=== PATIENT | female | born 1975 | race Caucasian/White ===

== ENCOUNTER 2022-09-09 10:33 | Outpatient (OUT) | payer OTHER, SELFPAY ==
--- NOTE | 2022-09-09 10:40 | MM_ITS ---
Patient: BEN TABOR Exam Date: 09/09/2022 : 1975 Gender:F Ordering : DR Zofia Ocasio M.D. Admission #: [id number] Family : Order #: [id number] CLICK HERE TO VIEW EXAM RADIOLOGY REPORT PROCEDURE: MM TOMOSYNTHESIS SCREENING BI COMPARISON: MG MAMM SCREEN 3D JULIO CÉSAR CAD, 09/08/2021. MG MAMM DIAGNOSTIC 3D JULIO CÉSAR CAD, 09/04/2020. MG MAMM RT DIAG W CAD, 02/26/2020. MG MAMM SCREEN JULIO CÉSAR W CAD, 08/13/2019. INDICATIONS: Screening mammogram Z12.31 Calculator Name NCI Breast Cancer Risk Assessment Tool 5 Year Breast Cancer Risk 0.90% Lifetime Breast Cancer Risk 9.20% Personal Breast Cancer No Personal Ovarian Cancer No Treatments wide excision Family Cancers Grandmother-maternal with breast cancer at age 55; Grandfather-maternal with anal cancer at age 80; Father with pancreatic cancer at age 71. LOCATION: [facility] BREAST COMPOSITION: Scattered areas fibroglandular density. FINDINGS: DIAGNOSTIC CATEGORY 1--NEGATIVE. NO CHANGE FROM COMPARISON ASSESSMENT. RIGHT BREAST: No significant suspicious finding. Stable chronic dense fibroglandular tissue within the posterior lower-inner quadrant. No significant change has occurred. LEFT BREAST: No significant suspicious finding. No significant change has occurred. RECOMMENDATIONS: ROUTINE MAMMOGRAM AND CLINICAL EVALUATION IN 12 MONTHS. PLEASE NOTE: A NORMAL MAMMOGRAM DOES NOT EXCLUDE THE POSSIBILITY OF BREAST CANCER. A CLINICALLY SUSPICIOUS PALPABLE LUMP SHOULD BE BIOPSIED. Dictated by: Anton Pacheco M.D. on 09/14/2022 at 14:42 Approved by: Anton Pacheco M.D. on 09/14/2022 at 14:53
== END 2022-09-09 10:34 ==
LOC: MAMMO 10:36
PROVIDERS: PCP Family Medicine; Visit Provider Family Medicine
DX: Z12.31 Encounter for screening mammogram for malignant neoplasm of breast (principal); Z80.3 Family history of malignant neoplasm of breast; Z80.0 Family history of malignant neoplasm of digestive organs; Z80.8 Family history of malignant neoplasm of other organs or systems
CPT/HCPCS: 77063; 77067

== ENCOUNTER 2022-09-14 07:38 | Outpatient (RCR) | payer OTHER, SELFPAY ==
[2022-09-14 10:39] VITALS: BP 146/81; PULSE 71; RESP 20; TEMP 36.2; O2SAT 95
[2022-09-14] MEDS: INCLISIRAN SODIUM 284 MG/1.5 ML SYRINGE SQ (11:08)
--- NOTE | 2022-09-14 11:11 | PC.NURSE ---
PATIENT ARRIVES AMBULATORY TO INFUSION SERVICES. PATIENT IS MADE COMFORTABLE IN THE RECLINER. VITAL SIGNS OBTAINED. SQ INJECTION GIVEN IN THE R UPPER ARM WITHOUT DIFFICULTY. PATIENT TOLERATED PROCEDURE WELL. THE SITE IS COVERED WITH A COTTON BALL AND BAND AID. THE PATIENT IS WAITING 20 MINUTES FOR ASSESSMENT OF SIGNS AND SYMPTOMS OF A REACTION. POST 20 MINUTES THE PATIENT DENIES SIGNS AND SYMPTOMS AND IS DISCHARGED AMBULATORY TO HOME WITH NO COMPLAINTS. THE PATIENT HAS HAD THIS INJECTION BEFORE AND HAS NOT HAD ANY COMPLICATIONS FROM IT.
== END 2022-09-30 23:59 | disposition home or self-care (01) ==
LOC: INF 07:38
PROVIDERS: PCP Family Medicine; Visit Provider Family Medicine
DX: E78.00 Pure hypercholesterolemia, unspecified (principal)
CPT/HCPCS: 96372; J1306

== ENCOUNTER 2023-02-08 14:36 | Outpatient (RCR) | payer OTHER, SELFPAY | END 2023-02-16 17:07 | disposition home or self-care (01) | LOC: PT 14:36 | PROVIDERS: PCP Family Medicine | DX: M76.72 Peroneal tendinitis, left leg (principal) | CPT/HCPCS: 97110; 97161 ==

== ENCOUNTER 2023-02-22 09:07 | Outpatient (OUT) | payer OTHER, SELFPAY ==
--- NOTE | 2023-02-22 | XR_ITS ---
The [address] [address] Patient Name: BEN TABOR MRN: [id number] date: 1975 Sex: F Assigned Patient Location: [facility] Current Patient Location: Accession/Order Number: [id number] Exam Date: 02/22/2023 09:30 Report Date: 02/24/2023 07:51 At the request of: ALEKSANDER FALCON Procedure: XR foot LT min 3V PROCEDURE: XR foot LT min 3V HISTORY: LEFT FOOT PAIN ; arch pain COMPARISON: None. FINDINGS: BONES:Prior 5th metatarsal bunionectomy. No fracture, dislocation, bone lesion. Prominent calcaneal plantar spur and mild spurring at Achilles tendon insertion. SOFT TISSUES:No visible soft tissue swelling. EFFUSION:None visible. OTHER: Negative. XR/XR foot LT min 3V IMPRESSION: 1. No acute bone abnormality or significant degenerative joint disease. 2. Prior 5th metatarsal bunionectomy. Electronically authenticated by: YASSINE SANCHEZ Date: 02/24/2023 07:51
--- OUTSIDE RECORDS SUMMARY | 2023-03-21 23:14 | XMS_ITS | CCD ---
Author Name Unknown Address [address] [place] [address] Organization [facility] Care Team Providers Care Rv Service Technician Name Role Phone Unavailable Primary Care Provider Jacqueline VEGA, DR LISSETT Fung Admitting Unavailable VEGA, DR LISSETT Fung Attending Unavailable VEGA, DR LISSETT Fung Primary Care Unavailable [facility], DR MONCADA Consulting Unavailable VEGA, DR LISSETT Fung Consulting Unavailable VEGA, DR LISSETT Fung Admitting Unavailable VEGA, DR LISSETT Fung Attending Unavailable VEGA, DR LISSETT Fung Primary Care Unavailable VEGA, DR LISSETT Fung Consulting Unavailable KARASIK ., DR MERLOS Admitting Unavailabl e KARASIK ., DR MERLOS Attending Unavaildipika e VEGA, DR LISSETT Fung Primary Care Unavailable KARASIK ., DR MERLOS Consulting Unavailabl e KARASIK ., DR MERLOS Admitting Unavailabl e KARASIK ., DR MERLOS Attending Unavaildipika e VEGA, DR LISSETT Fung Primary Care Unavailable KARASIK ., DR MERLOS Consulting Unavaildipika e WEST, DR ZHANNA Judd Consulting Unavailable GARY, DR LISSETT Fung Admitting Unavailable VEGA, DR LISSETT Fung Attending Unavailable VEGA, DR LISSETT Fung Primary Care Unavailable VEGA, DR LISSETT Fung Consulting Unavailable Unavailable Primary Care Provider UnavailTaz Jamison Attending Unavailable Taz Rossi Admitting Unavailable Lissett Vega Primary Care Unavailable Lissett Vega Unavailable Lissett Vega MD Primary Care Provider GURPREET BECKWITH Attending Unavailable GURPREET BECKWITH Referring Unavailable GURPREET BECKWITH Admitting Unavailable LISSETT VEGA Primary Care Unavailable GURPREET BECKWITH Attending Unavailable GURPREET BECKWITH Referring Unavailable GURPREET BECKWITH Admitting Unavailable LUIS LICONA Referring Unavailable DEBBIE ECHEVERRIA Referring Unavailable TRISTA BONILLA Attending Unavailable DEBBIE ECHEVERRIA Attending Unavailable DEBBIE ECHEVERRIA Referring Unavailable DEBBIE ECHEVERRIA Referring Unavailable TRISTA BONILLA Attending Unavailable DEBBIE ECHEVERRIA Referring Unavailable LUIS LICONA Attending Unavailable TANG, GURPREET Attending Unavailable DEBBIE ECHEVERRIA Attending Unavailable BECKWITH, GURPREET Referring Unavailable VEGA, LISSETT E Primary Care Unavailable VEGA, LISSETT E Primary Care Unavailable PENDBURAK CLARKE Attending Unavailable VEGA, LISSETT E Primary Care Unavailable PENDYALA, BURAK Attending Unavailable CHADTRISTA Referring Unavailable BECKWITH, GURPREET Admitting Unavailable BECKWITH, GURPREET Attending Unavailable BECKWITH, GURPREET Referring Unavailable VEGA, LISSETT E Primary Care Unavailable BECKWITH, GURPREET Admitting Unavailable BECKWITH, GURPREET Attending Unavailable BECKWITH, GURPREET Referring Unavailable VEGA, LISSETT E Primary Care Unavailable ASHVIN VEGAIA Primary Care Physician Debbie DE LOS SANTOS Attending Unavailable Allergies Allergy Classification Reported Allergen(s) Allergy Type Date of Onset Reaction(s) Facility (3 sources) patient allergy list reviewed by nurse or physicia Propensity to adverse reactions Comment:Done FAZUA Other (3 sources) Allergies Reconciled Propensity to adverse reactions Unknown FAZUA Other (1 source) No Known Medication Allergies; Translations: [No Known Medication Allergies] Propensity to adverse reactions (disorder) [facility] Medications Current Medications Medication Drug Class(es) Dates Sig (Normalized) Sig (Original) 1.5 ML inclisiran 189 MG/ML Prefilled Syringe [Leqvio] (5 sources) Start: 02-01-2023 Leqvio 284 mg/1.5 mL subcutaneous solution 0 Refill(s), Refills(s) 0 Start Date: 02/01/23 Status: Ordered Leqvio 284 MG/1. 5ML as directed Subcutaneous Active iv contrast (will be provided with radiology test) (2 sources) Start: 03-01-2022 End: 03-02-2022 inject 1 dose intravenously once iv contrast (will be provided with radiology test) MRI Brain Inject, intravenously, once for 1 dose.No IV access, insert saline lock prior to beginning of sedation, infusion, injection of imaging exam.Discontinue saline lock post exam. If Pt. has a central line or IVAD, may access for administration according to line specific nursing protocol.Once exam is complete flush line and de-access according to line specific nursing protocol in the MR contrast administration guidelines link 1 Each 0 03/01/2022 03/02/2022 Active Start: 08-23-2021 End: 08-24-2021 inject 1 dose intravenously once iv contrast (will be provided with radiology test) MRI Brain Inject, intravenously, once for 1 dose.No IV access, insert saline lock prior to beginning of sedation, infusion, injection of imaging exam.Discontinue saline lock post exam. If Pt. has a central line or IVAD, may access for administration according to line specific nursing protocol.Once exam is complete flush line and de-access according to line specific nursing protocol in the MR contrast administration guidelines link 1 Each 0 08/23/2021 08/24/2021 Active Comment on above: MRI Brain Inject, in travenously, once for 1 dose.No IV access, insert saline lock prior to beginning of sedation, infusion, injection of imaging exam.Discontinue saline lock post exam. If Pt. has a central line or IVAD, may access for administration according to line specific nursing protocol.Once exam is complete flush line and de-access according to line specific nursing protocol in the MR contrast administration guidelines link leqvio 284 mg/1.5ml solution prefilled syringe (1 source) Leqvio 284 MG/1. 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 One tablet 30 minute s prior to MRI tamsulosin hydrochloride 0.4 mg oral capsule (1 source) alpha-Adrenergic Ivan take 1 capsule by mouth every twenty-four hours Flomax 0.4 MG 1 capsule Orally Once a day for 7 days Active Completed/Discontinued Medications Medication Drug Class(es) Dates Sig (Normalized) Sig (Original) dexamethasone 4 mg oral tablet (7 sources) Corticosteroid Start: 01-28-2023 dexAMETHasone (DECADRON) 4 mg tablet Start the day after your Gamma Knife Procedure: Decadron (Dexamethasone), Take 4 mg (1 tablet) daily for 4 days, Take 2 mg (1/2 tablet) daily for 4 days, then stop Decadron 6 tablet 0 01/28/2023 Active Start: 01-28-2023 dexAMETHasone (DECADRON) 4 mg tablet Start the day after your Gamma Knife Procedure: Decadron (Dexamethasone), Take 4 mg (1 tablet) daily for 4 days, Take 2 mg (1/2 tablet) daily for 4 days, then stop Decadron 6 tablet 0 01/28/2023 Active Comment on above: Start the day after your Gamma Knife Procedure: Decadron (Dexamethasone), Take 4 mg (1 tablet) daily for 4 days, Take 2 mg (1/2 tablet) daily for 4 days, then stop Decadron famotidine 20 mg oral tablet (7 sources) Histamine-2 Receptor Antagonist Start: 01-28-2023 take 1 tablet by mouth once daily famotidine (PEPCID) 20 mg tablet Take 1 tablet by mouth once daily. 6 tablet 0 01/28/2023 Active Start: 01-28-2023 take 1 tablet by petra th once daily famotidine (PEPCID) 20 mg tablet Take 1 tablet by mouth once daily. 6 tablet 0 01/28/2023 Active Comment on above: Take 1 tablet by petra th once daily. inclisiran (LEQVIO) 284 mg/1.5 mL injection (20 sources) Start: 12-15-2021 inclisiran (LEQVIO) 284 mg/1.5 mL injection meloxicam 15 mg oral tablet (20 sources) Nonsteroidal Anti-inflammatory Drug Start: 12-01-2021 meloxicam (MOBIC) 15 mg tablet omeprazole 20 mg delayed release oral capsule (20 sources) Proton Pump Inhibitor take 1 capsule by mouth once daily omeprazole (PRILOSEC) 20 mg capsule Take 20 mg by mouth once daily. 0 Active Comment on above: Take 20 mg by mouth once daily. rosuvastatin calcium 10 mg oral tablet (2 sources) HMG-CoA Reductase Inhibitor End: 06-21-2021 take 1 tablet by mouth once daily rosuvastatin (CRESTOR) 10 mg tablet Take 10 mg by mouth once daily. 0 06/21/2021 Discontinued (Other) Comment on above: Take 10 mg by mouth once daily. Problems Active Problems Problem Classification Problem Date Documented Date Episodic/Chronic Abdominal pain (1 source) Left lower quadrant pain Episodic Cancer; other and unspecified primary (1 source) H/O Malignant melanoma 02-01-2023 Episodic Disorders of lipid metabolism (20 sources) Pure hypercholesterolemia, unspecified; Translations: [Hyperlipidemia] Onset: 03-23-2015 Resolved: 02-01-2023 Chronic Esophageal disorders (3 sources) Esophageal reflux finding; Translations: [Esophageal reflux] Chronic Genitourinary symptoms and ill-defined conditions (4 sources) Dysuria; Translations: [Dysuria] Onset: 08-23-2018 Episodic Inflammation; infection of eye (except that caused by tuberculosis or sexually transmitteddisease) (3 sources) External hordeolum; Translations: [Hordeolum externum unspecified eye, unspecified eyelid] Episodic Melanomas of skin (4 sources) Malignant melanoma of trunk; Translations: [Malignant melanoma of other part of trunk] Chronic Neoplasms of unspecified nature or uncertain behavior (1 source) Neoplasm of meninges 02-17-2023 Episodic Nonmalignant breast conditions (3 sources) Disorder of breast; Translations: [Other specified disorders of breast] Episodic Other and unspecified benign neoplasm (20 sources) Benign neoplasm of meninges; Translations: [Benign neoplasm of meninges, unspecified] Onset: 01-27-2023 Chronic Other and unspecified benign neoplasm (2 sources) Neoplasm of meninges; Translations: [Benign neoplasm of meninges, unspecified] 10-19-2022 Chronic Other and unspecified benign neoplasm (1 source) Benign neoplasm of meninges, unspecified; Translations: [Benign neoplasm of meninges (HCC)] Onset: 01-27-2023 Chronic Other circulatory disease (3 sources) Elevated blood-pressure reading without diagnosis of hypertension; Translations: [Elevated blood-pressure reading, without diagnosis of hypertension] Episodic Other connective tissue disease (1 source) Plantar fascial fibromatosis Episodic Other connective tissue disease (3 sources) Spasm; Translations: [Other muscle spasm] Episodic Other connective tissue disease (3 sources) Pain in left foot; Translations: [Pain in left foot] Episodic Other liver diseases (1 source) Lesion of liver; Translations: [Liver disease, unspecified] 06-16-2021 Chronic Other non-traumatic joint disorders (3 sources) Disorder of bursa of shoulder region; Translations: [Unspecified disorders of bursae and tendons in shoulder region] Episodic Other non-traumatic joint disorders (3 sources) Shoulder joint pain; Translations: [Pain in unspecified shoulder] Episodic Other nutritional; endocrine; and metabolic disorders (6 sources) Body mass index 30+ - obesity; Translations: [Body mass index (BMI) 36.0-36.9, adult] 02-17-2023 Chronic Other nutritional; endocrine; and metabolic disorders (5 sources) Obesity caused by energy imbalance; Translations: [Other obesity due to excess calories] Chronic Other nutritional; endocrine; and metabolic disorders (1 source) Other obesity due to excess calories Chronic Other nutritional; endocrine; and metabolic disorders (1 source) Body mass index (BMI) 36.0-36.9, adult Chronic Other nutritional; endocrine; and metabolic disorders (15 sources) Obese class II; Translations: [Body mass index (BMI) 38.0-38.9, adult] Onset: 11-03-2016 Resolved: 09-08-2020 Chronic Other nutritional; endocrine; and metabolic disorders (3 sources) Obese class I; Translations: [Body mass index 34.0-34.9, adult] Onset: 11-03-2016 Chronic Other nutritional; endocrine; and metabolic disorders (1 source) Morbid obesity 02-01-2023 Chronic Other screening for suspected conditions (not mental disorders or infectious disease) (13 sources) Encounter for screening for malignant neoplasm of cervix; Translations: [Encounter for screening mammogram for malignant neoplasm of breast] Onset: 09-08-2021 Episodic Residual codes; unclassified (3 sources) Acquired absence of genital organ; Translations: [Acquired absence of other genital organ(s)] Episodic Spondylosis; intervertebral disc disorders; other back problems (3 sources) Displacement of lumbar intervertebral disc without myelopathy; Translations: [Other intervertebral disc displacement, lumbar region] Chronic Sprains and strains (3 sources) Sprain of shoulder and upper arm; Translations: [Sprain and strain of unspecified site of shoulder and upper arm] Episodic Unclassified (1 source) Encounter for other preprocedural examination; Translations: [Encounter for other preprocedural examination] Onset: 09-12-2022 Unclassified (1 source) Patient encounter status 02-01-2023 Viral infection (3 sources) Disease caused by 2019-nCoV; Translations: [COVID-19] Past or Other Problems Problem Classification Problem Date Documented Date Episodic/Chronic Immunizations and screening for infectious disease (1 source) Encounter for screening for human papillomavirus (HPV); Translations: [ENC SCREENING HUMAN PAPILLOMAVIRUS] Onset: 09-15-2021 Episodic Menstrual disorders (6 sources) Excessive and frequent menstruation; Translations: [Excessive and frequent menstruation with regular cycle] Resolved: 09-16-2019 Chronic Noninfectious gastroenteritis (3 sources) Non-infective enteritis and colitis; Translations: [Noninfective gastroenteritis and colitis, unspecified] Onset: 02-26-2014 Episodic Other aftercare (3 sources) Surgical follow-up; Translations: [Surgery follow-up examination] Onset: 08-22-2007 Resolved: 09-02-2019 Episodic Other aftercare (3 sources) History and physical examination, follow-up; Translations: [Encounter for follow-up examination after completed treatment for conditions other than malignant neoplasm] Resolved: 09-08-2020 Episodic Other connective tissue disease (3 sources) Disorder of soft tissue; Translations: [Other specified soft tissue disorders] Resolved: 09-08-2020 Episodic Other female genital disorders (3 sources) Abnormal uterine bleeding; Translations: [Abnormal uterine and vaginal bleeding, unspecified] Resolved: 09-16-2019 Chronic Other female genital disorders (3 sources) Hypertrophy of uterus; Translations: [Hypertrophy of uterus] Resolved: 09-16-2019 Episodic Other nutritional; endocrine; and metabolic disorders (3 sources) Obesity; Translations: [Obesity, unspecified] Resolved: 09-08-2020 Chronic Other skin disorders (3 sources) Disorder of skin and/or subcutaneous tissue; Translations: [Unspecified disorder of skin and subcutaneous tissue] Onset: 09-14-2018 Episodic Otitis media and related conditions (3 sources) Eustachian tube salpingitis; Translations: [Unspecified Eustachian salpingitis, bilateral] Onset: 11-03-2016 Episodic Residual codes; unclassified (1 source) Family history of malignant neoplasm of breast; Translations: [FAMILY HX MALIG NEOPLASM OF BREAST] Onset: 09-11-2021 Episodic Residual codes; unclassified (1 source) Family history of malignant neoplasm of other organs or systems; Translations: [FAM HX MALIG NEOPLASM OTH ORGN/SYS] Onset: 09-11-2021 Episodic Superficial injury; contusion (3 sources) Contusion of right foot; Translations: [Contusion of right foot, initial encounter] Onset: 11-03-2016 Episodic Unclassified (3 sources) Other symptoms referable to forearm joint; Translations: [Other symptoms referable to forearm joint] Onset: 10-14-2015 Unclassified (3 sources) Long-term current use of drug therapy; Translations: [Long-term (current) use of other medications] Onset: 09-22-2015 Results Test Name Value Interpretation Reference Range Facil ity Outside Colonoscopyon 2022 Outside Colonoscopy [id number] [facility] Reminderson 03-09-2023 Reminders - From: Veronica Jack LPN To: N - Clinical; Sent: 03/09/2023 13:42:54 EST Show up: 02/06/2033 07:00:00 EST Subject: colonoscopy recall Due Date/Time: 03/08/2033 07:00:00 EST Reminder/Recall Patient due for screening colonoscopy 03/08/2033. [facility] Consent for Procedure/Surger yon 02-21-2023 Consent for Procedure/Surgery [id number] [facility] Facesheeton 02-20-2023 Facesheet [id number] IFF [facility] Ambulatory Visit Summaryon 1 04-19-2022 Ambulatory Visit Summary BEN CRUZ :1975 Visit Date:02/17/2023 Ambulatory Visit Instructions Your Diagnosis Screening for malignant neoplasm of colon Your Care Team Attending Physician - MAGALI MCKINLEY, Debbie Morgan Primary Care Physician - LISSETT VEGA MD This Is Your Medications List Contact prescribing physician if questions or concerns inclisiran (Leqvio 284 mg/1.5 mL subcutaneous solution) Procedures Performed Arthroscopy of shoulder, section, section, Excision of ganglion cyst of wrist, Excision of melanoma, Gamma-knife surgery., Laminectomy, Plantar fasciotomy, VH - Vaginal hysterectomy. Discharge Vitals Heart Rate (Peripheral) 76 Respiratory Rate 16 Blood Pressure 128/84 Height 162.5 cm Height 64 in Weight 94.6 kg Weight 208.12 lb BMI 35.82 Medications What When Instructions Unchanged inclisiran (Leqvio 284 mg/ 1.5 mL subcutaneous solution) 0 Refill(s) Contact prescribing physician if questions or concerns Medications and Immunizations Administered Not Given influenza virus vaccine, inactivated, Patient Refuses Allergies No Known Allergies No Known Medication Allergies Problems Ongoing - Any problem that you are currently receiving treatment for. BMI 35.0-35.9,adult History of melanoma Meningioma Mixed hyperlipidemia Morbid obesity Screening for colorectal cancer Historical - Any problem that you are no longer receiving treatment for. Hyperlipidemia Patient Survey You may receive a survey via text or e-mail asking about your office visit. Please share your experience with us by completing your survey. We appreciate your feedback and thank you for choosing us for your care. [facility] Louise 02-07-[address] [facility] Telephone ([facility]) BEN CRUZ ([id number]) 1975 F Date Time Provider Department 02/07/23 JOHANN HENRIQUEZ [facility] During your visit today, we recorded the following information about you: Johann Henriquez RN 02/07/2023 3:50 PM Signed Ben returned my call about follow-up from on 01/27. Reports feeling very good. No new neurological complaints at this time. She tells me she took 2 days of her steroid taper and got sick so she stopped taking it. Confirmed follow-up appointments. All questions answered at this time. Understands to call if any new symptoms or concerns arise. Allergies As of Date: 02/07/2023 (No Known Allergies) Date Reviewed: 01/27/2023 Reviewed by: Anton Terrell, BIGG - Fully Assessed Prescriptions as of 02/07/2023 - dexAMETHasone (DECADRON) 4 mg tablet Start the day after your Gamma Knife Procedure: Decadron (Dexamethasone), Take 4 mg (1 tablet) daily for 4 days, Take 2 mg (1/2 tablet) daily for 4 days, then stop Decadron - famotidine (PEPCID) 20 mg tablet Take 1 tablet by mouth once daily. - meloxicam (MOBIC) 15 mg tablet - inclisiran (LEQVIO) 284 mg/1.5 mL injection - omeprazole (PRILOSEC) 20 mg capsule Take 20 mg by mouth once daily. Problem List As Of Date 02/07/2023 Noted Resolved 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] 01/27/2023 Encounter Status:Closed by JOHANN HENRIQUEZ on 02/07/23 [facility] BEN CRUZ ([id number]) 1975 F Date Time Provider Department 02/06/23 JOHANN HENRIQUEZ [facility] During your visit today, we recorded the following information about you: Johann Henriquez RN 02/06/2023 1:20 PM Signed Calling Ben for post-GKRS follow-up. Unable to reach at this time. Left voicemail. Johann Henriquez RN 02/07/2023 1:19 PM Signed 2nd attempt to reach out, patient unavailable. Will send [employer] message with contact information to call if she is experiencing any symptoms or has any concerns since gamma knife treatment. Allergies As of Date: 02/06/2023 (No Known Allergies) Date Reviewed: 01/27/2023 Reviewed by: Anton Terrell RN - Fully Assessed Reason for Visit: Gamma Knife Follow-up [455] Prescriptions as of 02/07/2023 - dexAMETHasone (DECADRON) 4 mg tablet Start the day after your Gamma Knife Procedure: Decadron (Dexamethasone), Take 4 mg (1 tablet) daily for 4 days, Take 2 mg (1/2 tablet) daily for 4 days, then stop Decadron - famotidine (PEPCID) 20 mg tablet Take 1 tablet by mouth once daily. - meloxicam (MOBIC) 15 mg tablet - inclisiran (LEQVIO) 284 mg/1.5 mL injection - omeprazole (PRILOSEC) 20 mg capsule Take 20 mg by mouth once daily. 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] 01/27/2023 Encounter Status:Closed by JOHANN HENRIQUEZ on 02/07/23 [facility] CNKashifn 01-27-2023 [facility] Operative Note (Enc) ([facility]) Encounter Status:Closed by GURPREET BECKWITH on 01/27/23 [facility] Operative Note (Enc) ([facility]) Encounter Status:Closed by GURPREET BECKWITH on 01/27/23 [facility] CNOVon 01-27-2023 CNOV Office Visit ([facility] ) BEN CRUZ ([id number]) 1975 F Date Time Provider Department 01/27/23 12:30 PM GURPREET BECKWITH [facility] During your visit today, we recorded the following information about you: Gurpreet Beckwith DO, PhD 01/27/2023 10:12 AM Signed [facility] History and Physical Diagnosis: Meningioma Subjective History of Present Illness: 47 y/o RHF here for gamma knife treatment. 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 Saw Dr Licona 06 21 22: rec observation w FU imaging Saw Dr Licona 10 19 22: MRI brain on 10/17/2022 showed small interval growth of meningioma now measuring 8 mm previously 7 mm. c/w mild HAs Saw Dr Echeverria June 2022: Also follows w Derm Concerned about the growth and was seen virtually 11 04 22 to discuss GK 01 27 23: Presents today for GK No new neurologic symptoms Has some anxiety about the mask but feels she will be ok No on steroids No sz Last Chemo: N/A Current Steroids dose: N/A Current AED Dose: N/A Therapy Status Data Form Past Medical History: No past medical history on file. Past Surgical History: No past surgical history on file. Family History: No family history on file. Social History Tobacco Use Smoking status: Former Types: Cigarettes Quit date: 08/02/2018 Years since quittin.4 Smokeless tobacco: Never Vaping Use Vaping Use: Never used Substance Use Topics Alcohol use: Yes Comment: occasionally Drug use: Never Allergies: Patient has no known allergies. Current Outpatient Medications Medication Sig [START ON 01/28/2023] dexAMETHasone (DECADRON) 4 mg tablet Start the day after your Gamma Knife Procedure: Decadron (Dexamethasone), Take 4 mg (1 tablet) daily for 4 days, Take 2 mg (1/2 tablet) daily for 4 days, then stop Decadron [START ON 01/28/2023] famotidine (PEPCID) 20 mg tablet Take 1 tablet by mouth once daily. meloxicam (MOBIC) 15 mg tablet inclisiran (LEQVIO) 284 mg/1.5 mL injection omeprazole (PRILOSEC) 20 mg capsule Take 20 mg by mouth once daily. No current facility-administered medications for this visit. Review of systems: Constitutional: Has lost about 30 lbs- intentional Eyes: No history of glaucoma or cataracts. ENMT: recent MRI showed sinus infection; sense of smell better but not nl yet CV: No history of chest pain, palpitations or leg swelling. Respiratory: No history of SOB, asthma or recent cough. Gastrointestinal: No history of nausea, vomiting, dysphagia or abdominal pain. Genitourinary: No history of hematuria or dysuria. Musculoskeletal: No complaint of arthritis, unstable gait or arm/leg weakness. Psychiatric: No history of hallucinations or depression or anxiety. ROS Neurological: + headache on and off. No complaint of tinnitus. No complaint of decreased hearing. No complaint of diplopia. Feels vision is not as sharp- has an appointment No complaint of arm/leg numbness. No problem with limb coordination. No complaint of syncope, seizures or disorientation. Objective Physical Exam: General Exam PHYSICAL EXAMINATION: NAD LCTA HRRR ABD: soft NT FINDINGS: Neurological: Higher integrative functions: Oriented to person, place AND time Memory: 3/3I and 3/3 at 5 minutes Attention Span and Concentration: Good Language: Accurate naming of objects. Good comprehension Fund of Knowledge: Good 3rd,4th,6th CN: Pupils (=), round, react to light, full extraocular movements: 7th CN: Facial muscles symmetric and strong Motor: 5/5 Gait nl Reflexes symmetric CRISTINE nl KPS: 90 KPS and ECOG Provider Data Form PHQ 2 and 9 Total Scores 10/17/2022 PHQ-2 Score 0 Labs: CBC Latest Ref Rng AND Units 01/24/2019 WBC 3.70 - 11.00 k/uL 8.14 RBC 3.90 - 5.20 m/uL 4.99 HEMOGLOBIN 11.5 - 15.5 g/dL 14.1 HEMATOCRIT 36.0 - 46.0 % 43.5 MCV 80.0 - 100.0 fL 87.2 MCH 26.0 - 34.0 pG 28.3 MCHC 30.5 - 36.0 g/dL 32.4 RDW-CV 11.5 - 15.0 % 12.1 PLATELETS 150 - 400 k/uL 285 MPV 9.0 - 12.7 fL 8.6(L) BASO% % 0.2 ABS NEUT (ANC) 1.45 - 7.50 k/uL 5.09 ABS LYMPH 1.00 - 4.00 k/uL 2.12 ABS MONO <0.87 k/uL 0.72 ABS EOSIN <0.46 k/uL 0.19 ABS BASO <0.11 k/uL <0.03 DIFF TYPE - Auto Diff CMP Latest Ref Rng AND Units 01/24/2019 SODIUM 136 - 144 mmol/L 141 POTASSIUM 3.7 - 5.1 mmol/L 4.4 CHLORIDE 97 - 105 mmol/L 102 CO2 22 - 30 mmol/L 27 GLUCOSE 74 - 99 mg/dL 94 BUN 7 - 21 mg/dL 17 CREATININE 0.58 - 0.96 mg/dL 0.92 EGFR-ALL OTHER RACES . >60 EGFR- - >60 PROTEIN, TOTAL 6.3 - 8.0 g/dL 7.1 AL (more content not included)... Normal [facility] CNOV Office Visit (PARISHBrittani ) BEN CRUZ ([id number]) 1975 F Date Time Provider Department 01/27/23 8:30 AM MASK PLACEMENT [facility] During your visit today, we recorded the following information about you: Gayle Acevedo RN 01/27/2023 10:29 AM Signed January 27, 2023 0630 Ben arrived ambulatory Discharge Transportation Verification: Yes, via/with Ben arrived for imaging, mask SIM, ICON mask-based GKRS, and single-session mask-based treatment. 0645 1 mg PO Ativan given for anxiety prior to mask SIM per order of Dr. Aria Beckwith, Gayle MANCIA RN 0735 Mask SIM completed. Ben Cruz returned to department for treatment # 1 of 1. Is patient receiving immunotherapy infusions: Not Applicable. Patient's Age: 47 Menstruation Status: Hysterectomy 2019 [facility] Results: N/A test not performed QC: Yes, testing is valid (or protocol followed for invalid testing). Reference range: Normal Value = Negative for hCG. POC performed by: Gayle Acevedo RN 0999 4 mg Decadron PO given prior to GKRS per order of Dr. Virgil Beckwith 0946 GKRS start time. 1016 GKRS end time. 1025 Discharge instructions given to patient; instructions reviewed by this RN; patient/family verbalized understanding; patient discharged via/with BIGG Segura Kaitlin, RN 01/27/2023 8:35 AM Addendum [facility] Discharge Instructions As with any surgery there are risks and potential side effects. There is a slight chance of developing brain swelling days or months after the Gamma Knife 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. If you experience nausea, vomiting, severe headache, visual changes, difficulty speaking, a seizure or any other symptom unusual for you, contact your physician immediately or go to the nearest emergency room. These may or may not be symptoms of brain swelling. If you go to a physician or hospital other than the [facility] with any problem related to the Gamma Knife procedure, please notify the Gamma Knife nurse. Rarely, patients experience pain the day after their 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. You may take non-aspirin pain medication, such as Ibuprofen or Tylenol, if you are having any discomfort. Some patients are placed on steroids, such as Decadron, and an antacid, such as Pepcid, following their 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. Certain conditions require these medications to lessen the chance of swelling around the treated area. When prescribed, these medications are extremely important in the period immediately following your Gamma Knife treatment and must be taken exactly as directed. The Gamma Knife nurse will discuss your particular situation with you. Do not take any Decadron for the remainder of today. Begin following the regimen below on 01/28/23: Beginning the day after your Gamma Knife procedure: 1.) Take 4 mg (1 tablet) daily with breakfast for 4 days, then 2.) Take 2 mg (1/2 tablet) daily with breakfast for 4 days, then stop. Take Pepcid 20 mg (1 tablet) once daily while taking Decadron. Stop taking Pepcid 20 mg once the Decadron taper is complete. Resume all other regular medications. - Taking good care of your general health is an important step to recovery. Continue to eat well and get plenty of rest. At the time of discharge, you will be given your follow-up appointments with your neurosurgeon and radiation oncologist. If not, these appointment dates and times will be mailed to you. If you have any questions or problems, you may your physician, Dr. Virgil Beckwith at [phone] Monday through Monday 8:00 am to 5:00 pm, or call the Gamma Knife nurse Monday through Monday 8:00 am to 4:00 pm at [phone]. In the evening or on weekends, call [phone] or toll-free [phone] and ask the waterproofing machine operator to page your neurosurgeon's resident food production machine operator. 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 - meloxicam (MOBIC) 15 mg tablet - inclisiran (LEQVIO) 284 mg/1.5 mL injection - omeprazole (PRILOSEC) 20 mg capsule Take 20 mg by mouth once daily. 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 Th (more content not included)... Normal [facility] CT BRAIN WO IVCONon 01-28-20 CT BRAIN WO IVCON * * *Final Report* * * DATE OF EXAM: Jan 27 2023 8:11AM [facility] 0504 - CT BRAIN WO IVCON / PROCEDURE REASON: Benign neoplasm of meninges (HCC) * * * * Physician Interpretation * * * * EXAMINATION: CT BRAIN WO IVCON CLINICAL HISTORY: Pretreatment planning for gamma knife treatment TECHNIQUE: Specialized protocol comprising thin section axial acquisition without contrast. No head frame or pins are present. MQ: CTBWO_3 CT Radiation dose: Integrated Dose-Length Product (DLP) for this visit = 1027 mGy*cm CT Dose Reduction Employed: No dose reduction techniques were required COMPARISON: Concurrent brain MRI RESULT: Supervisor Cell Maintenance (topogram) images: No additional findings. Post-operative change: None. Acute change: No evidence of an acute infarct or other acute parenchymal process. Hemorrhage: No evidence of acute intracranial hemorrhage. ECASS hemorrhagic transformation score: Not Applicable Mass Lesion / Mass Effect: The known small left frontal extra-axial enhancing tissue is not appreciated on this modality, however the focus of subjacent hyperostosis is well seen, without suspicious features. Please refer to concurrent brain MRI for superior visualization/description of soft tissue findings. There is no evidence of an intracranial mass or extraaxial fluid collection. No significant mass effect. Chronic change: None apparent. Parenchyma: There is no significant volume loss. The brain parenchyma is otherwise within normal limits for age. Ventricles: The ventricles are within normal limits of size and configuration for age. Paranasal sinuses and skull base: The visualized paranasal sinuses are grossly clear. The skull base and imaged soft tissues are unremarkable. IMPRESSION: 1. SUCCESSFUL STEREOTACTIC LOCALIZATION EXAM 2. SMALL HYPEROSTOTIC FOCUS SUBJACENT TO KNOWN LOCATION OF EXTRA-AXIAL ENHANCING TISSUE SEEN ON MRI Library Clerk: TORI Transcribe Date/Time: Jan 27 2023 8:21A Dictated by : ESTUARDO WHALEY MD This examination was interpreted and the report reviewed and electronically signed by: ESTUARDO WHALEY MD on Jan 27 2023 8:23AM EST [id number] Normal [facility] MRI BRAIN LOCAL W IVCONon MRI BRAIN LOCAL W IVCON * * *Final Report* * * DATE OF EXAM: Jan 27 2023 8:04AM [facility] 0289 - MRI BRAIN LOCAL W IVCON / PROCEDURE REASON: Benign neoplasm of meninges (HCC) * * * * Physician Interpretation * * * * EXAMINATION: MRI BRAIN LOCAL W IVCON HISTORY: Malignant melanoma, likely meningioma TECHNIQUE: Specialized protocol comprising single volumetric T1-weighted acquisition with contrast MQ: MRBWOW_2 Contrast: 20 mL Dotarem IV COMPARISON: Brain MRI 02/23/2022, 08/23/2021, and others going back to presentation on 06/01/2021 RESULT: Redemonstrated is previously seen small extra-axial enhancing tissue over the left middle frontal gyrus. Using 3-D MPR techniques to coregister identical planes to multiple studies, from 10/17/2022 and going back to 06/01/2021, there is no significant change in the size of this enhancing tissue, within the resolution of 1 mm. It sits superficial to a small focus of concordant hyperostosis. Maximal enhancing thickness is about 3-4 mm, and this is over a base diameter of about 8-9 mm. No other suspicious enhancement is identified. Accounting for this technique there is no subjacent parenchymal reaction. IMPRESSION: REDEMONSTRATION OF LIKELY SMALL MENINGIOMA OVER LEFT FRONTAL LOBE, UNCHANGED GOING BACK TO 06/01/2021 Library Clerk: TORI Transcribe Date/Time: Jan 27 2023 8:08A Dictated by : ESTUARDO WHALEY MD This examination was interpreted and the report reviewed and electronically signed by: ESTUARDO WHALEY MD on Jan 27 2023 8:20AM EST [id number] Normal [facility] MRI BRAIN LOCALIZATION W IVC ONon 01-27-2023 [facility] Physician Referralon 023 Physician Referral [id number] Normal [facility] Physician Referralon 2 023 Physician Referral [id number] Deanna Awad [facility] CNOVSPon 12-22-2022 CNOVSP Visit (SP) Office (H EMCA3) SHARONABEN ([id number]) 1975 F Date Time Provider Department 12/22/22 10:00 AM DEBBIE ECHEVERRIA [facility]3 During your visit today, we recorded the following information about you: Temperature Pulse Respiration Blood pressure 97.5 degrees 75/minute 18/minute 132/83 Weight 94.9 kg Debbie Echeverria MD 12/23/2022 9:46 AM Signed December 22, 2022 DXN: Resected T4aN0 desmoplastic melanoma. The lesion was about 4.5mm located on her back with 2 negative SLNs (left axilla). There was no reported neurtropism and only one mitotic figure. Margins were negative. Declined an adjuvant trial in [place]. Baseline imaging today is negative CC: Melanoma follow up HPI: Doing well. No new symptoms. Derm follow up has been clear. 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 She has a meningioma under survielllance with RadOnc. F/u with Derm. RTC in 6 months Elements of this note, including HPI, ROS, Physical Exam, Assessment and Plan were copied and pasted from 06.21.22 note. Updates have been made where noted and reflect current exam and medical decision making from December 22, 2022. Chad Ty DO, MS PGY2, Internal Medicine These recommendations are not final until staffed by attending provider. I have reviewed the history, physical obtained and documented by the Resident and I personally participated in all of the beckwith components. I have discussed the case and management of the patient's care with the Resident. The following comments revise or confirm relevant beckwith components of the Resident. MD Carlitos Gtz Marquita, LPN 12/22/2022 10:16 AM Signed Additional intake questions: Has the patient had fever, nausea, vomiting, diarrhea, constipation, fatigue for > 1 week? No Does the patient have a decreased appetite? No Does patient want to see a Solutions Architect? No (yes to any of above refer patient to schedulers for dietitian appointment) ) Does patient have any new or increased numbness or tingling of extremities? No Is patient interested in fertility information? No Does patient need any prescription refills? No Does patient have an advanced directive in place? 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 Follow-up and Disposition History for Encounter Date Provider Department Center 12/22/2022 [id number] ECHEVERRIA [facility] [place] [facility] Prescriptions as of 12/23/2022 - meloxicam (MOBIC) 15 mg tablet - inclisiran (LEQVIO) 284 mg/1.5 mL injection - omeprazole (PRILOSEC) 20 mg capsule Take 20 mg by mouth once daily. Problem List As Of Date: 12/22/2022 (None) Visit Notes: >> Ava Urbina LPN Meghan Dec 22, 2022 10:14 AM Status: Signed Additional intake questions: Has the patient had fever, nausea, vomiting, diarrhea, constipation, fatigue for > 1 week? No Does the patient have a decreased appetite? No Does patient want to see a Solutions Architect? No (yes to any of above refer patient to schedulers for dietitian appointment) ) Does patient have any new or increased numbness or tingling of extremities? No Is patient interested in fertility information? No Does patient need any prescription refills? No Does patient have an advanced directive in place? No, Patient refused referral to Social Work or Resource Center [facility] BEN CRUZ ([id number]) 1975 F Date Time Provider Department 11/15/22 BETZY HEARD [facility] During your visit today, we recorded the following information about you: Betzy Heard RN 11/15/2022 2:04 PM Signed Calling Ben to follow up on ClicData message about scheduling gamma knife for 01/27/2023 No answer, left message stating that I'll go ahead and place the GK orders. Reminded to disregard ANY appointment times she sees in ClicData, any automated text reminders or automated phone calls for 01/27/23 She will receive a call from the GK nurse or radiation therapist the day before with her arrival time. If she has any questions, I left office phone # for call back or she can send a ClicData message. I will send out a GK folder with additional information related to Mask Based Gamma Knife Radiosurgery Betzy Heard RN, BSN Vacuum Frame Operator [facility] Allergies As of Date: 11/15/2022 (No Known Allergies) Date Reviewed: 10/19/2022 Reviewed by: Trista Bonilla APRN.AGRONOMY RESEARCH MANAGER - Fully Assessed Reason for Visit: 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 [[id number]] Cmt: Schedule gamma knife 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 Prescriptions as of 11/15/2022 - meloxicam (MOBIC) 15 mg tablet - inclisiran (LEQVIO) 284 mg/1.5 mL injection - omeprazole (PRILOSEC) 20 mg capsule Take 20 mg by mouth once daily. Problem List As Of Date: 11/15/2022 (None) Encounter Status:Closed by [facility] HERAD [facility] BEN CRUZ ([id number]) 1975 F Date Time Provider Department 10/20/22 BETZY HEARD [facility] During your visit today, we recorded the following information about you: Betzy Heard, RN 10/20/2022 11:56 AM Signed Time Frame: As soon as can be scheduled - can be virtual or in clinic Orders: n/a Provider: Tang Referring: ePlon Diagnosis: meningioma Allergies As of Date: 10/20/2022 (No Known Allergies) Date Reviewed: 10/19/2022 Reviewed by: Trista Bonilla APRN.[facility] - Fully Assessed Reason for Visit: GIN - new pt consult with Dr. Beckwith [Other] Prescriptions as of 11/10/2022 - meloxicam (MOBIC) 15 mg tablet - inclisiran (LEQVIO) 284 mg/1.5 mL injection - omeprazole (PRILOSEC) 20 mg capsule Take 20 mg by mouth once daily. Problem List As Of Date: 10/20/2022 (None) Encounter Status:Closed by BETZY HEARD on 11/10/22 [facility] MRI BRAIN WO/W IVCONon 10-17 MRI BRAIN WO/W IVCON * * *Final Report* * * DATE OF EXAM: Oct 17 2022 11:20AM [facility] 0295 - MRI BRAIN WO/W IVCON / PROCEDURE REASON: Benign neoplasm of meninges (HCC) * * * * Physician Interpretation * * * * EXAMINATION: MRI BRAIN WO/W IVCON HISTORY: history of desmoplastic melanoma T4aN0, with incidentally discovered subcentimeter L frontal meningioma noted on staging MRI of the br ain obtained 06/01/2021 presenting for further evaluation in the setting of on-going surveillance. TECHNIQUE: MRI brain without/with contrast including sagittal T1, axial T2, FLAIR, diffusion, stability weighted imaging, pre and post gadolinium coronal T1, and post gadolinium axial 3-D. MQ: MRBWOW_2 Contrast: 20 mL Dotarem IV COMPARISON: MRI 02/23/2022 with earliest available 06/01/2021. RESULT: Coregistration software utilized for slice by slice comparison in the identical plane. Avidly enhancing dural based mass indenting the left middle frontal gyrus with subjacent hyperostosis now measures 8 mm in maximal axial dimension, previously 7 mm with a thickness of the enhancing component of 4 mm, previously 2 mm. Robust brain volume. Negative for restricted diffusion, hemorrhage, significant mass effect, extra-axial collection, and additional abnormal enhancement. The major intracranial vessels show signal characteristics typically associated with flow voids suggesting patency. Minimal left and mild right mastoid effusions. Unremarkable orbits, marrow signal, and soft tissues. New opacification of the right frontal sinus as well as mid to ventral right ethmoid air cells with air-fluid level in the right maxillary sinus. IMPRESSION: 1. Growth of subcentimeter meningioma. 2. New right-sided paranasal sinus disease configuration compatible with middle meatus obstruction with air-fluid level suggestive of acute/active sinusitis. Library Clerk: TORI Transcribe Date/Time: Oct 17 2022 11:35A Dictated by : CHUCKY BRAY MD This examination was interpreted and the report reviewed and electronically signed by: CHUCKY BRAY MD on Oct 17 2022 11:45AM EST [id number] Normal [facility] Clin ic Complete Blood Count Auto Di ffon 09-12-2022 Basophils (Bld) [#/Vol] 0.1 10*3/uL Normal 0.0-0.2 [facility] Comment on above: Result Comment: PERF ORMED BY: [address] [place] [address] PATHOLOGIST BUSINESS EXCELLENCE MANAGER ARNULFO STYLES M.D. Performed By: #### C BC #### [facility] [address] Basophils/100 WBC (Bld) 0.7 % Normal . F [facility] Comment on above: Performed By: #### C BC #### [address] Eosinophils (Bld) [#/Vol] 0.2 10*3/uL Normal 0.0-0.45 [facility] Comment on above: Performed By: #### C BC #### [address] Eosinophils/100 WBC (Bld) 2.7 % Normal . [facility] Comment on above: Performed By: #### C BC #### [address] Erythrocyte distribution wid th (RBC) [Ratio] 12.9 % Normal 11.9-15.3 [facility] Comment on above: Performed By: #### C BC #### [address] Hematocrit (Bld) [Volume fraction] 41.8 % Normal 34.0-46.4 [facility] Comment on above: Performed By: #### C BC #### [address] Hemoglobin (Bld) [Mass/Vol] 14.3 g/dL Normal 11.8-15. 4 [facility] Comment on above: Performed By: #### C BC #### [address] Lymphocytes (Bld) [#/Vol] 2.0 10*3/uL Normal 1.00-4.8 [facility] Comment on above: Performed By: #### C BC #### [address] Lymphocytes/100 WBC (Bld) 25.3 % Normal . [facility] Comment on above: Performed By: #### C BC #### [address] MCH (RBC) [Entitic mass] 29.8 pg Normal 24.7-34.3 [facility] Comment on above: Performed By: #### C BC #### [facility] [address] MCV (RBC) [Entitic vol] 87.2 fL Normal 80-100 F [facility] Comment on above: Performed By: #### C BC #### [facility] [address] Mean Corpuscular HGB Conc 34.2 g/dL Normal 32.0-35.0 [facility] Comment on above: Performed By: #### C BC #### [facility] [address] [place] [address] [place] Monocytes (Bld) [#/Vol] 0.7 10*3/uL Normal 0.0-0.8 [facility] Comment on above: Performed By: #### C BC #### [facility] [address] [place] [address] [place] Monocytes/100 WBC (Bld) 9.1 % Normal . F [facility] Comment on above: Performed By: #### C BC #### [facility] [address] [place] [address] [place] Neutrophils (Bld) [#/Vol] 4.8 10*3/uL Normal 1.8-7.7 [facility] Comment on above: Performed By: #### C BC #### [facility] [address] [place] [address] [place] Neutrophils/100 WBC (Bld) 62.2 % Normal . [facility] Comment on above: Performed By: #### C BC #### [facility] [address] NRBC% 0.4 /100{WBC} Normal 0-0.5 [facility] Comment on above: Performed By: #### C BC #### [facility] [address] Platelet mean volume (Bld) [Entitic vol] 7.5 fL Normal 6.3-10.7 [facility] Comment on above: Performed By: #### C BC #### [facility] [address] [place] [address] [place] Platelets (Bld) [#/Vol] 225 10*3/uL Normal 150-450 [facility] Comment on above: Performed By: #### C BC #### [facility] [address] RBC (Bld) [#/Vol] 4.80 10*6/uL Normal 3.60-5.00 [facility] Comment on above: Performed By: #### C BC #### [facility] [address] WBC (Bld) [#/Vol] 7.7 10*3/uL Normal 3.8-11.6 [facility] Comment on above: Performed By: #### C BC #### [address] XR chest 2V*on 09-12-2022 XR chest 2V* [facility] Main [place] [address] [place] [address] XRay Report Signed Patient: Ben Cruz MR#: [id number] 3 : 1975 Acct:[id number] Age/Sex: 47 / F ADM Date: 09/12/22 Loc: [place] Room: Type: [facility] Attending Dr: Taz Rossi DPM Copies to: Taz Rossi DPM Ordering Provider: Taz Rossi DPM Date of Service: 09/12/22 XR/XR chest 2V*: Z01.818 XR chest 2V* 09/12/2022 1:03 PM SIGNS AND SYMPTOMS: Presurgical testing for foot surgery PROTOCOL: Frontal and lateral radiograph of the chest COMPARISON: None FINDINGS: The trachea is midline. The heart and mediastinal structures are within normal limits. The lung parenchyma is clear. The bony thorax is intact. Surgical clips are noted in the left axilla. XR/XR chest 2V* IMPRESSION: No acute cardiopulmonary pathology. Impression dictated by: Florentino Woods M.D.09/12/2022 4:53 PM Dictation Location: [facility]--07 Transcribed By: LINDA 09/12/221652 Dictated By: Florentino Woods II, MD 09/12/221651 Signed By: 09/12/221652 [facility] Louise 08-31-2022 SHERITAN Telephone (RADRMN) BEN CRUZ ([id number]) 1975 F Date Time Provider Department 08/31/22 LUIS LICONA During your visit today, we recorded the following information about you: Adriana Brown 08/31/2022 4:12 PM Signed Patient called in to ask for a prescription of Atavan sent to [facility] prior to her scheduled MRI on 09/05. Prescription should be sent to the [facility] in [place] [facility]. [facility] [phone] [place] [address] Trista Bonilla APRN.AGRONOMY RESEARCH MA[facility]GER 08/31/2022 4:35 PM Signed Ativan sent to preferred pharmacy per patient request prior to MRI. PDMP website checked and validated. All prescriptions have been APPROPRIATELY filled. No suspicious activity was identified. 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 - meloxicam (MOBIC) 15 mg tablet - inclisiran (LEQVIO) 284 mg/1.5 mL injection - omeprazole (PRILOSEC) 20 mg capsule Take 20 mg by mouth once daily. Problem List As Of Date: 08/31/2022 (None) Prescriptions ordered this encounter Disp Refills Start End LORAZEPAM 1 MG TABLET 2 ta* 0 08/31/2022 09/21/2022 Sig: One tablet 30 minutes prior to MRI, may repeat x1 as needed. Medications Discontinued During This Encounter Prescriptions - LORazepam (ATIVAN) 1 mg tablet (Discontinued) One tablet 30 minutes prior to MRI Encounter Status:Closed by TRISTA BONILLA on 08/31/22 [facility] CNOVSPon 06-21-2022 CNOVSP Visit (SP) Office (H EMCA3) BEN CRUZ ([id number]) 1975 F Date Time Provider Department 06/21/22 10:30 AM DEBBIE ECHEVERRIA During your visit today, we recorded the following information about you: Temperature Pulse Respiration Blood pressure 96.8 degrees 74/minute 18/minute 139/82 Weight Height 98.8 kg 1.65 m Vanessa Giang LPN 06/21/2022 10:33 AM Signed Additional intake questions: Has the patient had fever, nausea, vomiting, diarrhea, constipation, fatigue for > 1 week? Yes, fatigue and Provider Notified Does the patient have a decreased appetite? No Does patient want to see a Solutions Architect? No (yes to any of above refer patient to schedulers for dietitian appointment) ) Does patient have any new or increased numbness or tingling of extremities? No Is patient interested in fertility information? NA Does patient need any prescription refills? No Does patient have an advanced directive in place? No, Patient refused referral to Social Work or Resource Center Electronically Signed By: CHANCE Batista MD 06/21/2022 11:09 AM Signed June 21, 2022 DXN: Resected T4aN0 desmoplastic melanoma. The lesion was about 4.5mm located on her back with 2 negative SLNs (left axilla). There was no reported neurtropism and only one mitotic figure. Margins were negative. Declined an adjuvant trial in [place]. Baseline imaging today is negative CC: Melanoma follow up HPI: Doing well. No new symptoms. Derm follow up has been clear. 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 She has a meningioma under survielllance with RadOnc. F/u with Derm. RTC in 6 months Elements of this note, including HPI, ROS, Physical Exam, Assessment and Plan were copied and pasted from my 12.21.21 distance encounter. Updates have been made where noted and reflect current exam and medical decision making from June 21, 2022 I spent 25 minutes in the visit, with more than 50% of the total [id number] time of the visit in counseling / coordination of care. Debbie Echeverria MD Referring Provider: DEBBIE ECHEVERRIA [[id number]] Allergies As of Date: 06/21/2022 (No Known Allergies) Date Reviewed: 06/21/2022 Reviewed by: Vanessa Giang LPN - Fully Assessed Reason for Visit: Established Patient [175] Primary Visit Diagnosis: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) [C43.59] Disposition: Return in about 6 months (around 12/22/2022) for please arrange MRI and virtual visit with Trista Bonilla (as requested by her) in September. thanks. Follow-up and Disposition History for Encounter Date Provider Department Center 06/21/2022 [id number] ECHEVERRIA [facility] [place] [facility] Prescriptions as of 06/21/2022 - meloxicam (MOBIC) 15 mg tablet - inclisiran (LEQVIO) 284 mg/1.5 mL injection - omeprazole (PRILOSEC) 20 mg capsule Take 20 mg by mouth once daily. Problem List As Of Date: 06/21/2022 (None) Visit Notes: >> Vanessa Giang LPN [place] Jun 21, 2022 10:29 AM Status: Signed Additional intake questions: Has the patient had fever, nausea, vomiting, diarrhea, constipation, fatigue for > 1 week? Yes, fatigue and Provider Notified Does the patient have a decreased appetite? No Does patient want to see a Solutions Architect? No (yes to any of above refer patient to schedulers for dietitian appointment) ) Does patient have any new or increased numbness or tingling of extremities? No Is patient interested in fertility information? NA Does patient need any prescription refills? No Does patient have an advanced directive in place? No, Patient refused referral to Social Work or Resource Center Electronically Signed By: Vanessa Giang LPN Encounter Status:Closed by DEBBIE ECHEVERRIA on 06/21/22 Normal [facility] MRI BRAIN WO/W IVCONon 02-23 MRI BRAIN WO/W IVCON * * *Final Report* * * DATE OF EXAM: Feb 23 2022 11:31AM [facility] 0295 - MRI BRAIN WO/W IVCON / PROCEDURE REASON: Benign neoplasm of meninges (HCC) * * * * Physician Interpretation * * * * EXAMINATION: MRI BRAIN WO/W IVCON HISTORY: Benign neoplasm of meninges (HCC). TECHNIQUE: Routine brain MRI protocol without and with contrast including diffusion and gradient echo images. MQ: [id number] Contrast: 20 mL Dotarem IV COMPARISON: MRI brain dated 08/23/2021. RESULT: There is a stable small extra-axial enhancing lesion with associated calcification/adjacent calvarial hyperostosis at the left high frontal convexity. This again measures up to 8 mm in maximal dimension. No new areas of abnormal enhancement have developed in the interval. No significant ventricular enlargement or midline shift. No evidence of restricted diffusion. No evidence of acute intracranial hemorrhage on the sequences obtained. Mild mucosal thickening involves the ethmoid and right maxillary sinuses. IMPRESSION: Stable subcentimeter extra-axial lesion, likely meningioma, at the left high frontal convexity. Otherwise, unremarkable MRI brain with and without contrast. Library Clerk: TORI Transcribe Date/Time: Feb 23 2022 11:50A Dictated by : CARLITOS MCGUIRE MD This examination was interpreted and the report reviewed and electronically signed by: CARLITOS MCGUIRE MD on Feb 23 2022 11:55AM EST [id number] Normal [facility] CBC AUTO DIFFon 11-18-2021 BASO # 0.0 103/ul Normal 0.0-0.1 [facility] Comment on above: Performed By: #### H FPFCBC #### [facility] [address] [place] [address] Dr. Arcenio Billy Basophils/100 WBC (Bld) 0.4 % Normal 0.2-2.[address] [facility] Comment on above: Performed By: #### H FPFCBC #### [facility] [address] [place] [address] Dr. Arcenio Billy EO # 0.2 103/ul Normal 0.0-0.7 [facility] Comment on above: Performed By: #### H FPFCBC #### [facility] [address] [place] [address] Dr. Arcenio Billy Eosinophils/100 WBC (Bld) 3.0 % Normal 0.9-7.0 [facility] Comment on above: Performed By: #### H FPFCBC #### [facility] [address] [place] [address] Dr. Arcenio Billy Erythrocyte distribution wid th (RBC) [Ratio] 12.1 % Normal 11.0-15.0 [facility] Comment on above: Performed By: #### H FPFCBC #### [facility] [address] [place] [address] Dr. Arcenio Billy Hematocrit (Bld) [Volume fraction] 43.1 % Normal 3 6.0-48.0 [facility] Comment on above: Performed By: #### H FPFCBC #### [facility] [address] [place] [address] Dr. Arcenio Billy Hemoglobin (Bld) [Mass/Vol] 14.1 g/dL Normal 12.0-16. 0 [facility] Comment on above: Performed By: #### H FPFCBC #### [facility] [address] [place] [address] Dr. Arcenio Billy IG # 0.01 10e3/ul Normal 0.00-0.03 [facility] Comment on above: Performed By: #### H FPFCBC #### [facility] [address] [place] [address] Dr. Arcenio Billy IG % 0.2 % Normal 0.0-0.5 [facility] Comment on above: Performed By: #### H FPFCBC #### [facility] [address] [place] [address] Dr. Arcenio Billy LYMPH # 1.9 103/ul Normal 1.2-3.8 [facility] Comment on above: Performed By: #### H FPFCBC #### [facility] [address] [place] [address] Dr. Arcenio Billy Lymphocytes/100 WBC (Bld) 35.7 % Normal 20.5-60.0 [facility] Comment on above: Performed By: #### H FPFCBC #### [facility] [address] [place] [address] Dr. Arcenio Billy MCH (RBC) [Entitic mass] 28.8 pg Normal 26.7-34.0 [facility] Comment on above: Performed By: #### H FPFCBC #### [facility] [address] [place] [address] Dr. Arcenio Billy MCHC (RBC) [Mass/Vol] 32.7 g/dL Normal 29.9-35.2 [facility] Comment on above: Performed By: #### H FPFCBC #### [facility] [address] [place] [address] Dr. Arcenio Billy MCV (RBC) [Entitic vol] 88.1 fL Normal 81.0-99.[address] [facility] Comment on above: Performed By: #### H FPFCBC #### [facility] [address] [place] [address] Dr. Arcenio Billy MONO # 0.5 103/ul Normal 0.3-0.8 [facility] Comment on above: Performed By: #### H FPFCBC #### [facility] [address] [address] [address] Arcenio Billy Monocytes/100 WBC (Bld) 9.9 % Normal 1.7-12.[address] [facility] Comment on above: Performed By: #### H FPFCBC #### [facility] [address] [place] [address] Dr. Arcenio Billy NEUT # 2.7 103/ul Normal 1.4-6.5 [facility] Comment on above: Performed By: #### H FPFCBC #### [facility] [address] [place] [address] Dr. Arcenio Billy Neutrophils/100 WBC (Bld) 50.8 % Normal 43.0-75.0 [facility] Comment on above: Performed By: #### H FPFCBC #### [facility] [address] [place] [address] Dr. Arcenio Billy Platelet mean volume (Bld) [Entitic vol] 8.9 fL Critically low 9.5-13.5 [facility] p[facility] Comment on above: Performed By: #### H FPFCBC #### [facility] [address] [place] [address] Dr. Arcenio Billy PLT 271 103/ul Normal 150-450 [facility] Comment on above: Performed By: #### H FPFCBC #### [facility] [address] [place] [address] Dr. Arcenio Billy RBC 4.89 106/ul Normal 4.20-5.[address] [facility] Comment on above: Performed By: #### H FPFCBC #### [facility] [address] [place] [address] Dr. Arcenio Billy WBC 5.3 103/ul Normal 4.0-11.0 [facility] Comment on above: Performed By: #### H FPFCBC #### [facility] [address] [place] [address] Dr. Arcenio Billy [facility] PROFILEon 022 Albumin [Mass/Vol] 3.7 g/dL Normal 3.4-5.0 [facility] Comment on above: Performed By: #### H FPF #### [facility] [address] [address] [address] Arcenio Billy Albumin/Globulin [Mass ratio] 1.1 {ratio} Normal [facility] Comment on above: Performed By: #### H FPF #### [facility] [address] [address] [address] Arcenio Billy ALP [Catalytic activity/Vol] 60 U/L Normal 46-116 [facility] Comment on above: Performed By: #### H FPF #### [facility] [address] [address] [address] Arcenio Billy ALT [Catalytic activity/Vol] 47 U/L Normal 14-59 [facility] Comment on above: Performed By: #### H FPF #### [facility] [address] [place] [address] Dr. Arcenio Billy AST [Catalytic activity/Vol] 25 U/L Normal 15-37 [facility] Comment on above: Performed By: #### H FPF #### [facility] [address] [place] [address] Dr. Arcenio Billy Bilirubin [Mass/Vol] 0.5 mg/dL Normal 0.2-1.0 [facility] Comment on above: Performed By: #### H FPF #### [facility] [address] [place] [address] Dr. Arcenio Billy Calcium [Mass/Vol] 8.8 mg/dL Normal 8.5-10.1 [facility] Comment on above: Performed By: #### H FPF #### [facility] [address] [address] [address] Arcenio Billy Chloride [Moles/Vol] 103 mmol/L Normal 98-107 [facility] Comment on above: Performed By: #### H FPF #### [facility] [address] [place] [address] Dr. Arcenio Billy CHOL-HDL RATIO NORM SEE BELOW Normal [facility] Comment on above: Result Comment: 3.3 - 4.4 LOW RISK 4.4 - 7.1 AVERAGE RISK 7.1 - 11.0 MODERATE RISK >11.0 HIGH RISK Performed By: #### H FPF #### [facility] [address] [address] [address] Arcenio Billy Cholesterol [Mass/Vol] 352 mg/dL Critically high <=200 [facility] Comment on above: Performed By: #### H FPF #### [facility] [address] [address] [address] Arcenio Billy Cholesterol in HDL [Mass/Vol] 34 mg/dL Critically low 40 -60 [facility] Comment on above: Performed By: #### H FPF #### [facility] [address] [address] [address] Arcenio Billy Cholesterol in LDL [Mass/Vol] 274.2 mg/dL Normal [facility] Comment on above: Performed By: #### H FPF #### [facility] [address] [address] [address] Arcenio Billy Cholesterol.total/Cholestero l in HDL [Mass ratio] 10.4 {ratio} Normal [facility] Comment on above: Performed By: #### H FPF #### [facility] [address] [address] [address] Arcenio Billy CO2 [Moles/Vol] 25.7 mmol/L Normal 21.0-32.0 [facility] Comment on above: Performed By: #### H FPF #### [facility] [address] [address] [address] Arcenio Billy Creatinine [Mass/Vol] 0.91 mg/dL Normal 0.55-1.02 [facility] Comment on above: Performed By: #### H FPF #### [facility] [address] [address] [address] Arcenio Billy Globulin (S) [Mass/Vol] 3.4 g/dL Normal [facility] Comment on above: Performed By: #### H FPF #### [facility] [address] [address] [address] Arcenio Billy Glucose [Mass/Vol] 91 mg/dL Normal 74-106 [facility] Comment on above: Performed By: #### H FPF #### [facility] [address] [address] [address] Arcenio Billy HDL NORMAL > or = 60 mg/dl - LO W CARDIOVASCULAR RISK <40 mg/dl - HIGH CARDIOVASCULAR RISK Normal [facility] Comment on above: Performed By: #### H FPF #### [facility] [address] [address] [address] Arcenio Billy LDL CALC NORMAL SEE BELOW Normal [facility] Comment on above: Result Comment: <100 mg/dl OPTIMAL 100 - 129 mg/dl NEAR OR ABOVE OPTIMAL 130 - 159 mg/dl BORDERLINE HIGH 160 - 189 mg/dl HIGH >190 mg/dl VERY HIGH Performed By: #### H FPF #### [facility] [address] [address] [address] Arcenio Billy Potassium [Moles/Vol] 4.1 mmol/L Normal 3.5-5.1 [facility] Comment on above: Performed By: #### H FPF #### [facility] [address] [address] [address] Arcenio Billy Protein [Mass/Vol] 7.1 g/dL Normal 6.4-8.[address] [facility] Comment on above: Performed By: #### H FPF #### [facility] [address] [address] [address] Arcenio Billy Sodium [Moles/Vol] 139 mmol/L Normal 136-[address] [facility] Comment on above: Performed By: #### H FPF #### [facility] [address] [address] [address] Arcenio Billy Triglyceride [Mass/Vol] 219 mg/dL Critically high <=[address] [facility] Comment on above: Performed By: #### H FPF #### [facility] [address] [address] [address] Arcenio Billy TSH 1.717 uIU/mL Normal 0.358-3.740 [facility] Comment on above: Performed By: #### H FPF #### [facility] [address] [address] [address] Arcenio Billy Urea nitrogen [Mass/Vol] 11.0 mg/dL Normal 7.0-18.[address] [facility] Comment on above: Performed By: #### H FPF #### [facility] [address] [place] [address] Dr. Arcenio Billy Urea nitrogen/Creatinine [Mass ratio] 12.1 mg/mg Normal [facility] Comment on above: Performed By: #### H FPF #### [facility] [address] [place] [address] Dr. Arcenio Billy VLDL CALC 43.8 mg/dL Normal [facility] Comment on above: Performed By: #### H FPF #### [facility] [address] [place] [address] Dr. Arcenio Billy PAP ACOG PANEL 2: 30 to 65on 09-19-2021 . . Normal [facility] Comment on above: Result Comment: Perf ormed at: WB Performed By: #### [id number] #### [facility] [address] [place] [address] Dr. Arcenio Billy Age Gdln ACOG Testing 30-65 Normal [facility] Comment on above: Performed By: #### [id number] #### [facility] [address] [place] [address] Dr. Arcenio Billy DIAGNOSIS: Comment Normal [facility] Comment on above: Result Comment: NEGA TIVE FOR INTRAEPITHELIAL LESION OR MALIGNANCY. FUNGAL ORGANISMS MORPHOLOGICALLY CONSISTENT WITH MOSES SPECIES ARE PRESENT. Performed at: WB Performed By: #### [id number] #### [facility] [address] [place] [address] Dr. Arcenio Billy HPV Aptima Negative Normal Negative [facility] Comment on above: Result Comment: This nucleic acid amplification test detects fourteen high-risk HPV types (16,18,31,33,35,39,45,51,52,56,58,59,66,68) without differentiation. Performed at: =G Performed By: #### [id number] #### [facility] [address] [place], [place] [id number] Dr. Arcenio Billy Methodology: Comment Normal [facility] Comment on above: Result Comment: This liquid based ThinPrep(R) pap test was screened with the use of an image guided system. Performed at: WB Performed By: #### [id number] #### [facility] [address] [place] [address] Dr. Arcenio Billy Note: Comment Normal [facility] Comment on above: Result Comment: The Pap smear is a screening test designed to aid in the detection of premalignant and malignant conditions of the uterine cervix. It is not a diagnostic procedure and should not be used as the sole means of detecting cervical cancer. Both false-positive and false-negative reports do occur. . Performed at: WB Performed By: #### [id number] #### [facility] [address] [place] [address] Dr. Arcenio Billy Performed by: Comment Normal [facility] Comment on above: Result Comment: Bronson Cordero, Drum Carrier (ASCP) Performed at: WB Performed By: #### [id number] #### [facility] [address] [place] [address] Dr. Arcenio Billy Specimen adequacy: Comment Normal [facility] Comment on above: Result Comment: Sati sfactory for evaluation. No endocervical component is identified. Performed at: WB Performed By: #### [id number] #### [facility] [address] [place] [address] Dr. Arcenio Billy MG MAMM SCREEN 3D JULIO CÉSAR CADon 09-08-2021 MG MAMM SCREEN 3D JULIO CÉSAR CAD Patient: BEN CRUZ Exam Date: 09/08/2021 : 1975 Gender:F Ordering : DR CHELITA VILLANUEVA . Admission #: [id number] Family : Order #: [id number] CLICK HERE TO VIEW EXAM RADIOLOGY REPORT PROCEDURE: MAMMOGRAM SCREENING 3D BILATERAL CAD COMPARISON: MG MAMM DIAGNOSTIC 3D JULIO CÉSAR CAD, 09/04/2020. MG MAMM RT DIAG W CAD, 02/26/2020. INDICATIONS: Screening mammography Calculator Name NCI Breast Cancer Risk Assessment Tool 5 Year Breast Cancer Risk 0.80% Lifetime Breast Cancer Risk 9.30% Personal Breast Cancer No Personal Ovarian Cancer No Treatments wide excision Family Cancers Grandmother-maternal with breast cancer at age 55; Grandfather-maternal with anal cancer at age 80; Father with pancreatic cancer at age 71. LOCATION: [facility] BREAST COMPOSITION: Scattered areas fibroglandular density. FINDINGS: DIAGNOSTIC CATEGORY 2--BENIGN FINDING. NO CHANGE FROM COMPARISON. Scattered benign-appearing nodules are present. Scattered benign-appearing calcifications are present. Scattered benign-appearing lymph nodes are present. RIGHT BREAST: No significant suspicious finding. Stable focal asymmetry lower inner quadrant posterior breast LEFT BREAST: No significant suspicious finding. RECOMMENDATIONS: ROUTINE MAMMOGRAM AND CLINICAL EVALUATION IN 12 MONTHS. PLEASE NOTE: A NORMAL MAMMOGRAM DOES NOT EXCLUDE THE POSSIBILITY OF BREAST CANCER. A CLINICALLY SUSPICIOUS PALPABLE LUMP SHOULD BE BIOPSIED. Dictated by: Zhanna Mc MD on 09/08/2021 at 11:39 Approved by: Zhanna Mc MD on 09/08/2021 at 11:41 Normal [facility] MRI BRAIN WO/W IVCONon 08-23 [facility] MRI LIVER WO/W IVCONon 06-16 [facility] MRI BRAIN WO/W IVCONon 06-01 [facility] Vital Signs Date Time Vital Sign Value Performing Clinician Facility 03-16-2023 13:45-0500 Body height 162.56 cm Lissett Vega Other [facility] Other 03-16-2023 13:45-0500 Body mass index (BMI) [Ratio] 34.5 kg/m2 Lissett Vega Other [facility] Other 03-16-2023 13:45-0500 Body temperature 99.1 [degF] Lissett Vega Other [facility] Other 03-16-2023 13:45-0500 Body weight 91.17 kg Lissett Vega Other [facility] Other 03-16-2023 13:45-0500 Diastolic blood pressure 88 mm[Hg] Lissett Vega Other [facility] Other 03-16-2023 13:45-0500 SaO2% (BldA) [Mass fraction] 98 % Lissett Vega Other [facility] Other 03-16-2023 13:45-0500 Systolic blood pressure 128 mm[Hg] Lissett Vega Other [facility] Other 02-17-2023 14:47-0500 Blood Pressure Location [employer] [facility] [place] 02-17-2023 14:47-0500 Diastolic blood pressure 84 mm[Hg] Debbie NILL [facility] [place] 02-17-2023 14:47-0500 Heart rate 76 /min Debbie NILL [facility] [place] 02-17-2023 14:47-0500 Respiratory rate 16 /min Debbie NILL [employer] [facility] [place] 02-17-2023 14:47-0500 Systolic blood pressure 128 mm[Hg] Debbie NILL [employer] [facility] 09-21-2022 11:30-0400 Body height 162.56 cm Lissett Vega Other [facility] Other 09-21-2022 11:30-0400 Body mass index (BMI) [Ratio] 36.56 kg/m2 Lissett Vega Other [facility] Other 09-21-2022 11:30-0400 Body weight 96.62 kg Lissett Vega Other [facility] Other 09-21-2022 11:30-0400 Diastolic blood pressure 84 mm[Hg] Lissett Vega Other [facility] Other 09-21-2022 11:30-0400 Systolic blood pressure 137 mm[Hg] Lissett Vega Other [facility] [email or web address] Other 06-21-2022 10:32-0400 Body height 165 cm Debbie Echeverria MD Work Phone: [facility] 06-21-2022 10:32-0400 Body temperature 96.8 [degF] Debbie Echeverria MD Work Phone: [facility] 06-21-2022 10:32-0400 Body weight 98.79 kg Debbie Echeverria MD Work Phone: [facility] 06-21-2022 10:32-0400 Diastolic blood pressure 82 mm[Hg] Debbie Echeverria MD Work Phone: [facility] 06-21-2022 10:32-0400 Heart rate 74 /min Debbie Echeverria MD Work Phone: [facility] 06-21-2022 10:32-0400 Respiratory rate 18 /min Debbie Echeverria MD Work Phone: [facility] 06-21-2022 10:32-0400 SaO2% (BldA) [Mass fraction] 96 % Debbie Echeverria MD Work Phone: [facility] 06-21-2022 10:32-0400 Systolic blood pressure 139 mm[Hg] Debbie Echeverria MD Work Phone: [facility] 12-21-2021 13:24-0400 Body temperature 98.6 [degF] Debbie Echeverria MD Work Phone: [facility] 12-21-2021 13:24-0400 Body weight 102.15 kg Debbie Echeverria MD Work Phone: [facility] 12-21-2021 13:24-0400 Diastolic blood pressure 82 mm[Hg] Debbie Echeverria MD Work Phone: [facility] 12-21-2021 13:24-0400 Heart rate 79 /min Debbie Echeverria MD Work Phone: [facility] 12-21-2021 13:24-0400 Respiratory rate 20 /min Debbie Echeverria MD Work Phone: [facility] 12-21-2021 13:24-0400 SaO2% (BldA) [Mass fraction] 100 % Debbie Echeverria MD Work Phone: [facility] 12-21-2021 13:24-0400 Systolic blood pressure 145 mm[Hg] Debbie Echeverria MD Work Phone: [facility] Encounters Encounter Date Encounter Type Care Provider Facility Start: 03-16-2023 End: 03-16-2023 ambulatory Lissett Vega Other [facility] Other Start: 03-16-2023 Office outpatient vi sit 15 minutes Lissett Vega [facility] Start: 02-17-2023 End: 02-18-2023 ambulatory Debbie R NILL Facility:[facility] Start: 02-17-2023 End: 02-17-2023 Patient encounter procedure Debbie R NILL [facility] Start: 02-07-2023 Telephone encounter Johann Henriquez RN [facility] Start: 02-06-2023 Telephone encounter Johann Henriquez RN [facility] Comment on above: Gamma Knife Follow-u p Start: 01-27-2023 End: 01-28-2023 Orders Only Gurpreet Beckwith DO, PhD Work Phone: Neurosurgery Comment on above: Benign neoplasm of m eninges (HCC) (Primary Dx) Benign neoplasm of m eninges (HCC) [D32.9] Start: 01-27-2023 Patient encounter procedure Burak Daley MD Work Phone: [facility] Start: 01-27-2023 Radiation Oncology Note Burak Daley MD Work Phone: [facility] Comment on above: Procedure Treatment Planning Start: 01-24-2023 ambulatory Debbie NILL Facility:[facility] [place] Start: 01-23-2023 End: 01-23-2023 ambulatory Lissett Gary Other [facility] Other Start: 01-23-2023 Telephone encounter Lissett Gary [facility] Start: 12-22-2022 End: 12-22-2022 ambulatory DEBBIE ECHEVERRIA Facility:[facility] Start: 11-15-2022 Telephone encounter Betzy liao RN Work Phone: [facility] 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 (Schedule gamma knife 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/) Start: 11-04-2022 End: 11-04-2022 ambulatory Gurpreet Beckwith DO, PhD Work Phone: [facility] Comment on above: Benign neoplasm of m eninges (HCC) (Primary Dx) Start: 11-04-2022 End: 11-04-2022 Telemedicine consultation with patient Gurpreet Beckwith DO, PhD Work Phone: [facility] Start: 10-31-2022 End: 10-31-2022 ambulatory Lissett Gary Other [facility] Other Start: 10-31-2022 Telephone encounter Lissett Gary [facility] Start: 10-19-2022 End: 10-19-2022 ambulatory DEBBIE ECHEVERRIA Facility:[facility] Start: 10-19-2022 End: 10-19-2022 ambulatory Luis Licona MD Work Phone: Radiation Oncology Comment on above: Meningioma (HCC) (Pr imary Dx) Start: 10-19-2022 End: 10-19-2022 Telemedicine consultation with patient Luis Licona MD Work Phone: [facility] Start: 10-18-2022 End: 10-18-2022 ambulatory DEBBIE ECHEVERRIA Facility:[facility] Start: 10-18-2022 End: 10-18-2022 ambulatory Trista Bonilla APRN.CNP Work Phone: Radiation Oncology Comment on above: Meningioma (HCC) (Pr imary Dx) Start: 10-18-2022 End: 10-18-2022 Telemedicine consultation with patient Trista Bonilla FELIX Work Phone: [facility] Start: 10-17-2022 End: 10-17-2022 ambulatory TRISTA BONILLA Facility:[facility] Start: 10-17-2022 End: 10-17-2022 Subsequent hospital visit by physician Mri [facility] (Lg Bore/1.5t) Radiology MRI Comment on above: Benign neoplasm of m eninges (HCC) [D32.9] Start: 09-23-2022 End: 09-23-2022 ambulatory Lissett Vega Other [facility] Other Start: 09-23-2022 Telephone encounter Lissett Vega [facility] Start: 09-21-2022 End: 09-21-2022 ambulatory Lissett Vega Other [facility] Other Start: 09-21-2022 Encounter for other preprocedural examination Lissett Vega [facility] Start: 09-21-2022 Office outpatient vi sit 25 minutes Lissett Vega [facility] Start: 09-12-2022 End: 09-12-2022 ambulatory Taz Rossi Facility:[facility] Start: 08-31-2022 Telephone encounter Luis osborn MD Work Phone: Radiation Oncology 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 Start: 06-21-2022 End: 06-21-2022 ambulatory DEBBIE ECHEVERRIA Facility:[facility] Start: 06-21-2022 End: 06-21-2022 ambulatory Debbie Echeverria MD Work Phone: Hematology/Oncology Comment on above: Malignant melanoma o f torso excluding breast (HCC) (Primary Dx) Start: 06-21-2022 End: 06-21-2022 Patient encounter procedure Debbie Echeverria MD Work Phone: [facility] Start: 03-16-2022 End: 03-16-[address] LISSETT VEGA Facility: Start: 02-28-2022 End: 02-28-2022 ambulatory DEBBIE ECHEVERRIA Facility:[facility] Start: 02-28-2022 End: 02-28-2022 ambulatory Trista Bonilla APRTayAGRONOMY RESEARCH MANAGER Work Phone: Radiation Oncology Comment on above: Benign neoplasm of m eninges (HCC) (Primary Dx) Start: 02-28-2022 End: 02-28-2022 Telemedicine consultation with patient Trista Bonilla APRN.AGRONOMY RESEARCH MANAGER Work Phone: [facility] Start: 02-23-2022 End: 02-23-2022 ambulatory LUIS LICONA Facility:[facility] Start: 02-23-2022 End: 02-23-2022 Subsequent hospital visit by physician Mri [facility] (Lg Bore/1.5t) Radiology MRI Comment on above: Benign neoplasm of m eninges (HCC) [D32.9] Start: 12-21-2021 End: 12-21-2021 ambulatory Debbie Echeverria MD Work Phone: Hematology/Oncology Comment on above: Malignant melanoma o f torso excluding breast (HCC) (Primary Dx) Start: 12-21-2021 End: 12-21-2021 Patient encounter procedure Debbie Echeverria MD Work Phone: [facility] Start: 12-15-2021 End: 12-15-[address] LISSETT VEGA Facility:[facility] Start: 12-11-2021 Gynecological examination normal Lissett Vega Other [facility] Other Start: 12-01-2021 Telephone encounter Debbie Echeverria MD Work Phone: Hematology/Oncology 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 Facility:[facility] Start: 09-08-2021 End: 09-09-[address] CHELITA VILLANUEVA . Facility:[facility] Start: 08-23-2021 End: 08-23-2021 ambulatory Luis Licona MD Work Phone: Radiation Oncology Comment on above: Benign neoplasm of m eninges (HCC) Start: 08-23-2021 End: 08-23-2021 Telemedicine consultation with patient Luis Licona MD Work Phone: [facility] Start: 08-23-2021 End: 08-23-2021 Subsequent hospital visit by physician Mri [facility] (Lg Bore/1.5t) Radiology MRI Comment on above: Benign neoplasm of m eninges (HCC) [D32.9] Start: 06-16-2021 End: 06-16-2021 Subsequent hospital visit by physician Mri [facility] (Lg Bore/1.5t) Radiology MRI Comment on above: Malignant 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] Start: 06-01-2021 End: 06-01-2021 Subsequent hospital visit by physician Mri [facility] (Lg Bore/1.5t) Radiology MRI Comment on above: Malignant 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] Procedures Date Procedure Procedure Detail Performing Clinician Start: 01-27-2023 Ct head/brain w/o co ntrast material Gurpreet Beckwith DO, PhD Work Phone: Start: 01-27-2023 Unlisted magnetic resonance procedure Gurpreet Beckwith DO, PhD Work Phone: Start: 10-17-2022 Mri brain brain stem w/o w/contrast material Trista Bonilla APRN.CNP Work Phone: Start: 02-23-2022 Mri brain brain stem w/o w/contrast material Luis Licona MD Work Phone: Start: 12-21-2021 Adult depression scr eening assessment Debbie Echeverria MD Work Phone: Start: 08-23-2021 Mri brain brain stem w/o w/contrast material Luis Licona MD Work Phone: Start: 08-22-2021 Adult depression scr eening assessment Luis Licona MD Work Phone: Start: 06-16-2021 Mri abdomen w/o & w/contrast material Debbie Echeverria MD Work Phone: Start: 06-01-2021 Mri brain brain stem w/o w/contrast material Debbie Echeverria MD Work Phone: Arthroscopy of shoulder [place] section Debbie NIL L Excision of ganglion of wrist Debbie NILL Excision of melanoma Debbie NILL Comment on above: left shoulder Fasciotomy of foot Debbie PARK Hysterectomy Lissett Vega Other Laminectomy Debbie HERNANDEZL Screening for malignant neoplasm of breas t Lissett Vega Other Stereotactic destruc tion of lesion using gamma radiation Debbie NILFelix Vaginal hysterectomy Debbie HERNANDEZL Plan of Treatment Date Care Activity Detail Author Start: 12-21-2022 Adult depression screening assessment DEPRESSION SCREENING [facility] Start: 12-02-2022 Influenza vaccination [facility] Start: 08-29-2022 End: 03-31-2023 Mri brain brain stem w/o w/contrast material MRI BRAIN WO/W IVCON Radiology Routine Benign neoplasm of meninges (HCC) Expected: 08/29/2022, Expires: 03/31/2023 [facility] Work Phone: Comment on above: Expected: 08/29/2022 , Expires: 03/31/2023 Start: 08-22-2022 Adult depression screening assessment DEPRESSION SCREENING [facility] Start: 04-03-2022 DEPRESSION ASSESSMENT DEPRESSION ASS [facility] Start: 01-24-2022 DIABETES SCREEN DIABETES SCREEN [facility] Start: 01-24-2022 Diabetes Screening Diabetes Screenin g [facility] Start: 12-02-2021 Influenza vaccination [facility] Start: 04-03-2021 [facility] Start: 07-12-2020 COLOGUARD (FIT-DNA) COLOGUARD (FIT-D NA) [facility] Start: 07-12-2020 Colonoscopy COLONOSCOPY [facility] Start: 07-12-2020 COLORECTAL CANCER SCREENING COLORECTAL CANCER SCREENING [facility] Start: 07-12-[address] COLONOGRAPHY [facility] Start: 07-12-2020 FECAL OCCULT BLOOD FECAL OCCULT BLOO D [facility] Start: 07-12-2020 Lipid 1996 panel - S emeterio or Plasma Lipid Screening [facility] Start: 07-12-2020 LIPID SCREEN LIPID SCREEN [facility] Start: 07-12-2020 SIGMOIDOSCOPY SIGMOIDOSCOPY [facility] Start: 2015 Mammography [facility] Start: 07-12-2005 HPV TESTING HPV TESTING [facility] Start: 07-12-1996 PAP TESTING PAP TESTING [facility] Start: 07-12-1994 Urine microalbumin profile [facility] Start: 07-12-1993 HEPATITIS C SCREENING HEPATITIS C SC REENING [facility] Start: 07-12-1993 HIV SCREENING HIV SCREENING [facility] Start: 07-12-1981 PNEUMOCOCCAL (1 - PCV) PNEUMOCOCCAL (1 - PCV) [facility] Start: 07-12-1980 COVID-19 VACCINE (#1) COVID-19 VACCI NE (#1) [facility] Start: 01-12-1976 COVID-19 VACCINE (#1) COVID-19 VACCI NE (#1) [facility] Start: 1975 HEPATITIS B (1 of 3 - 3-dose series) HEPATITIS B (1 of 3 - 3-dose series) [facility] Start: 1975 Hepatitis B Vaccine (1 of 3 - 3-dose series) Hepatitis B Vaccine (1 of 3 - 3-dose series) [facility] End: 09-22-2022 Mri brain brain stem w/o w/contrast material MRI BRAIN WO/W IVCON Radiology Routine Benign neoplasm of meninges (HCC) 1 Occurrences starting 08/23/2021 until 09/22/2022 [facility] Work Phone: Comment on above: 1 Occurrences starti ng 08/23/2021 until 09/22/2022 [facility]IA [facility] Immunizations Immunization Date Immunization Notes Care Provider Fa cility 06-05-2020 SARS-CoV-2 (COVID-19 ) mRNA BNT-162b2 vax Debbie NILL [facility] 05-15-2020 SARS-CoV-2 (COVID-19 ) mRNA BNT-162b2 vax Debbie NILL [facility] [place] NEGATED: Highlighted row has not occurred!02-17-2023 influenza virus vaccine, unspecified formulation Debbie NILL [facility] [place] Payers Date Payer Category Payer Self-pay 2018 Unknown MMO MMO [employer] [id number] 2018-Present [phone] [address] [place] [address] PPO [id number] 2018 Unknown [id number] 1975 Unknown [id number] 1975 Unknown [id number] 1975 Unknown [id number] 1975 Unknown [id number] 1975 Unknown [id number] 1959 Self-pay [id number] 1959 Unknown [id number] Unknown [id number] Unknown [id number] Social History Date Type Detail Facility Start: 11-19-2018 End: 02-17-2023 Tobacco smoking status NHIS Ex-smoker [facility] End: 08-02-2018 History of tobacco use Current smoker [facility] End: 08-02-2018 History of tobacco use Cigarette Smoker [facility] Start: 11-19-2018 Tobacco use and exposure Smokeless t obacco non-user [facility] Start: 06-21-2021 End: 12-22-2022 Alcohol intake Current drinker of alcohol (finding) [facility] Start: 11-19-2018 History SDOH Alcohol Comment occasionally [facility] Start: 1975 Sex Assigned At Not on file [facility] Start: 12-11-2021 End: 12-21-2021 Exposure to SARS-CoV-2 (event) Not sure [facility] Start: 06-21-2022 End: 10-18-2022 Sex Assigned At [facility] Start: 06-21-2022 End: 10-18-2022 History of Social function [facility] Adult Depression Screening Assessment 0 [facility] Start: 01-20-2020 Gender identity Identifies as female gender (finding) [facility] Start: 05-02-2021 End: 06-11-2021 Exposure to SARS-CoV-2 (event) Unable to assess [facility] Functional Status Date Assessment Result Facility 02-17-2023 Functional Status N/A General Phan cece Ro Clinical Notes 06-01-2021 to 03-16-2023 Note Date & Type Note Facility 03-16-2023 Evaluation note Encounter Date Diagnosis Assessment Notes Mar, LLQ abdominal pain (ICD-10 - R10.32) Discussed differential - kidney stone, diverticulosis (recent normal colonoscopy), ovarian issue or constipation (no BM x 2 days) due to hematuria on UA - recommend CT without contrast to r/o stone. 14 Mar, 2023 Microscopic hematuria (ICD-10 - R31.29) [facility] Other 11-17-2023 NoteChief Complaint consultation for screening colonoscopy HPI Staff 47 year old female presents on consultation from Dr. Vega for screening colonoscopy. Denies abdominal or rectal pain. No rectal bleeding or change in bowel habits. Denies nausea or vomiting. No unexplained weight loss. Never had colonoscopy in the past. No known family history of colon cancer. History of Present Illness 47 yo female with h/o hypercholesterolemia, meningioma, referred for colorectal screening; denies change in bms or blood in stools; no abdominal complaints; denies asa or NSAID use, no SBE prophylaxis; abdominal operations significant for c-setion x 2, vaginal hysterectomy ; no fmhx of GI malignancy or IBD; no tobacco use. Review of Systems PHQ Score Initial Depression Screen Score: 0 SCORE ROS - Provider Constitutional: no fever, no sweats, no weight loss. Eyes: no glasses, no blurred vision, no visual loss. ENMT: no dentures, no hoarseness, no swallowing difficulties, no hearing loss, no ear infection(s),no nose bleeds. Cardiovascular: normal blood pressure, no chest pain, regular heartbeat, no heart murmur. Respiratory: no shortness of breath, no cough, no asthma, no wheezing. Gastrointestinal: no nausea, no vomiting, no diarrhea, no constipation, no blood in stool, no change in bowel habits, no abdominal pain, no hepatitis. Genitourinary: no kidney stones, no urine infection, no dysuria. Musculoskeletal: no pain, no weakness. Skin: no changing moles, no rash, no skin lumps. Neurologic: no seizures, no epilepsy, no headache. Psychiatric: no emotional or psychiatric problem. Heme/Lymph: no bleeding problems, no anemia, no blood clots, no transfusions. Allergy/Immunologic: no swollen lymph nodes/glands, no IV drug abuse. Other: Additional ROS info: Except as noted in the above Review of Systems and in the History of Present Illness, all other systems have been reviewed and are negative or noncontributory. Physical Exam Vitals & Measurements HR: 76(Peripheral) RR: 16 BP: 128/84 HT: 64 in HT: 162.5 cm WT: 94.6 kg WT: 208.12 lb BMI: 35.82 HEENT: normal conjunctiva, sclera clear, no scleral icterus, EOM intact, PERRLA, oral mucosa moist without lesions. Neck: trachea midline, no mass, symmetric, no thyromegaly or nodules, no adenopathy Respiratory: lungs CTA, respirations non labored. Cardiovascular: regular rate and rhythm, no murmur, no pedal edema or varicosities. Gastrointestinal: soft, non distended, no tenderness, no masses, no palpable hernias, diastasis recti no, no hepatosplenomegaly; normal bs Lymphatic: no cervical adenopathy, no supraclavicular adenopathy. Musculoskeletal: normal gait, digits and nails without infection, nodes, cyanosis, clubbing. Skin: no rashes, no lesions, no ulcers, no subcutaneous nodules, induration. Psychiatric/Neuro: oriented to time, place, person, judgement normal, affect appropriate for age, insight intact, no focal deficits. Tests: , review of old records completed , Discussed surgical options, risks, and possible complications with patient. Assessment/Plan 1. Screening for malignant neoplasm of colon (Z12.11: Encounter for screening for malignant neoplasm of colon) plan colonoscopy under anesthesia, informed consent obtained. Follow-up No qualifying data available Problem List/Past Medical History Ongoing BMI 35.0-35.9,adult History of melanoma Meningioma Mixed hyperlipidemia Morbid obesity Screening for colorectal cancer Historical Hyperlipidemia Procedure/Surgical History Arthroscopy of shoulder, section, section, Excision of ganglion cyst of wrist, Excision of melanoma, Gamma-knife surgery., Laminectomy, Plantar fasciotomy, VH - Vaginal hysterectomy. Medications Leqvio 284 mg/1.5 mL subcutaneous solution Allergies No Known Allergies No Known Medication Allergies Social History Alcohol - Denies Alcohol Use, 02/17/2023 Substance Abuse - Denies Substance Abuse, 02/17/2023 Tobacco Former smoker, quit more than 30 days ago Tobacco Use:. Never Smokeless Tobacco Use:. Cigarettes, Started age 18.0 Years. Stopped age 30 Years., 02/17/2023 Family History Diabetes mellitus type 2: Father. Hypertension: Mother. Pancreatic adenocarcinoma: Father. Immunizations Vaccine Date Status Comments influenza virus vaccine, inactivated - Not Given Patient Refuses SARS-CoV-2 (COVID-19) mRNA BNT-162b2 vax 06/05/2020 Recorded SARS-CoV-2 (COVID-19) mRNA BNT-162b2 vax 05/15/2020 [facility]Comment on above:Result Comment: Electronically Signed By: MAGALI MCKINLEY, Debbie He\Date and Time Signed: 02/17/23 15:11 [id number] Miscellaneous Notes* Telephone Encounter - Johann Henriquez RN - 02/07/2023 3:48 PM EST Ben returned my call about follow-up from [facility] on 01/27. Reports feeling very good. No new neurological complaints at this time. She tells me she took 2 days of her steroid taper and got sick so she stopped taking it. Confirmed follow-up appointments. All questions answered at this time. Understands to call if any new symptoms or concerns arise. [facility] Miscellaneous Notes* Telephone Encounter - Johann Henriquez RN - 02/07/2023 1:13 PM EST 2nd attempt to reach out, patient unavailable. Will send [employer] message with contact information to call if she is experiencing any symptoms or has any concerns since gamma knife treatment. * Telephone Encounter - Johann Henriquez RN - 02/06/2023 1:17 PM EST Calling Ben for post-[facility] follow-up. Unable to reach at this time. Left voicemail. documented in this [facility]11-01-2023 NoteHNO ID: [id number] Author: Burak Daley MD Service: Radiation Oncology Author Type: Physician Type: Progress Notes Filed: 02/03/2023 12:33 AM Note Text: MAG SHARONASAWYER Payan [id number] 02/01/2023 [facility] / Department of Radiation Oncology RADIATION ONCOLOGY - COMPLETION NOTE START DATE OF TREATMENT: January 27, 2023 END DATE OF TREATMENT: January 27, 2023 UNIT: Gamma Knife AREA TREATED: Left frontal DISEASE: Meningioma DELIVERED DOSE: 1400.0 cGy was prescribed to the 56% isodose line, which covered 100% of the target. The plan utilized 5 shots using composite sector. GTV volume = 0.283 cm3. Maximum dose = 2500.0 cGy. Maximum diameter = 0.97 cm. MD/PD = 1.786. PIV/CTV = 1.382. Gradient Index = 2.8. Number of Fractions = 1. 1 separate treatment plans were devised. ELAPSED TREATMENT TIME: 14 minutes (one session). TOLERANCE: Excellent. RESPONSE: To be evaluated. REMARKS: The patient will follow-up in 6 months with repeat MRI scan. Authorized user was present during the entire treatment. The total treatment time was within 10% of the written directive. Survivorship care planning was discussed with the patient. Staff Physician Burak Daley M.D :57 AM Electronically Signed cc: [facility] NoteHNO ID: [id number] Author: Gurpreet Beckwith DO, PhD Service: ? Author Type: Physician Type: Progress Notes Filed: 01/27/2023 1:49 PM Note Text: [facility] [address] [place] [address] [place] OPERATIVE REPORT NAME: Ben Cruz [facility] NO.: [id number] MASK SIMULATION DATE: 2023-01-27 RADIATION TREATMENT START DATE: 2023-01-27 RADIATION TREATMENT END DATE: 2023-01-27 NUMBER OF FRACTIONS: 1 PREOPERATIVE DIAGNOSIS: Meningioma POSTOPERATIVE DIAGNOSIS: Same OPERATION: 1 fraction mask gamma knife 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. ANESTHESIA: None SURGEON: Gurpreet Beckwith DO, PhD - Stereotactic treatment planning. RADIATION ONCOLOGIST: Burak Daley M.D. ASSISTANTS: NONE SPECIMEN: None EBL: 0 ccs OPERATIVE INDICATIONS: The full clinical history and indications for treatment were discussed in the initial neurosurgery visit note. The indications, risks, benefits, and alternatives were discussed with the patient who asked us to proceed. The patient is aware that this may be one of several staged procedures in the management of this disorder. OPERATIVE FINDINGS: DESCRIPTION OF PROCEDURE: The patient was admitted to the Gamma Knife Center. The Leksell mask was created and a stereotactic cone-beam CT was obtained. The patient then underwent high-resolution MRI and CT imaging. The scans, including the cone-beam registration CT, were loaded in the planning computer and Leksell gamma plan was used to perform fractionated 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 dose planning. The lesion was treated as follows: Target 1 (l f) Location: l f Prescription: 14 Gy to the 56% local isodose line The plan uses 5 shots covering 100% of the target. GTV Volume: 0.283 cm3 CTV Volume: 0.283 cm3 Max linear size: 0.97 cm Conformality Index (PIV/CTV) = 1.382 Complexity: Simple Gradient Index: 2.8 Number of Fractions: 1 After the usual quality management nurse procedures were performed, fractionated 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 was delivered with use of the Gamma Knife. The Gamma Knife checklist and time outs were performed during this procedure. Gurpreet Beckwith DO, PhD[facility]-27-[facility]23 NoteHNO ID: [id number] Author: Burak Daley MD Service: Radiation Oncology Author Type: Physician Type: Progress Notes Filed: 02/01/2023 12:33 AM Note Text: BEN CRUZ [id number] 01/27/2023 [facility] Cindi Diez [facility] STEREOTACTIC RADIOSURGERY (SRS) DAILY PROCEDURE NOTE DATE OF PROCEDURE: 01/27/2023 FRACTION NUMBER: 1 of 1 CUMULATIVE DOSE: 14Gy (Out of a planned 14Gy) DIAGNOSIS: paste from simulation note PROCEDURE: Under my direct supervision the patient was set up on the treatment table and all treatment parameters were verified, including patient identity and treatment site. CBCT obtained which was co-registered using the treatment planning system. Adaptive replan was verified and approved. Once the beam was turned on, the patient position and target location were continuously monitored during delivery of the SRS using infrared tracking. At all points of decision-making with regard to patient setup, I conferred with the biomedical service engineer to approve the final setup. I was available throughout the SRS treatment to manage the execution of the treatment and make real-time adjustments in response to patient motion, target movement, or equipment issues to ensure accuracy and safety. The patient was evaluated by me after treatment and was discharged home in stable condition. DESCRIPTION OF IMMBOLIZATION/PROCE DURE: # ARCS/BOYD TREATED 5-point Orfit mask Dynamic Conformal Arcs Body Fix Inverse Plan Algorithm/IMRT Beams Abdominal compression-plunger device RapidArc Abdominal compression- belt device X Gamma Knife Active Breathing Coordinator (ABC) X ICON TREATMENT VOLUMES: GTV (Defined by neurosurgeon) DOSES: GTV total of 14Gy PHYSICIST NAME: Tono Bourne, PhD INTERVENTIONS: None ASSESSMENT/PLAN: Patient tolerated procedure well. We will continue as planned. Electronically Signed Burak Daley M.D. :10 [facility]10-27-2023 NoteHNO ID: [id number] Author: Burak Daley MD Service: Radiation Oncology Author Type: Physician Type: Progress Notes Filed: 02/02/2023 12:32 AM Note Text: BEN CRUZ [id number] 01/27/2023 [facility] Department of Radiation Oncology [facility] RADIATION ONCOLOGY GAMMA KNIFE SIMULATION NOTE DATE OF SIMULATION: 01/27/2023 MACHINE: Gamma Knife DIAGNOSIS: 47 yo female with meningioma of the left frontal lobe AREA:left frontal lobe PATIENT POSITION: Supine. Prone. CONTRAST: None PROTOCOL: None FIXATION DEVICE: In order to achieve accurate and reproducible treatments, the patient is immobilized with custom 3-point mask and mold care. PROCEDURE: A time-out was conducted and recorded by the therapist. Patient was simulated on the Gamma Knife for SRS therapy. ASSESSMENT/PLAN: Patient tolerated simulation procedure well. Treatments will be initiated after treatment planning. Electronically Signed Burak Daley M.D. 35:18 [facility]10-27-2023 NoteHNO ID: [id number] Author: Burak Daley MD Service: Radiation Oncology Author Type: Physician Type: Progress Notes Filed: 02/01/2023 12:33 AM Note Text: BEN CRUZ [id number] 01/27/2023 [facility] Department of Radiation Oncology [facility] RADIATION ONCOLOGY GAMMA KNIFE TREATMENT PLANNING NOTE For reasons stated in the consult note, BEN CRUZ is a candidate for definitive 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. Based on review and interpretation of the relevant diagnostic studies together with the exam findings, BEN CRUZ was imaged on 01/27/2023. The CT and MRI imaging was fused and checked in Gamma Plan by the radiation oncologist/neurosurgeon and physicist and the target volume to be treated as well as the critical normal structure(s) were delineated. After participating in the treatment planning process with neurosurgery and medical physics, I approved the best plan to deliver my prescribed course of 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. The target tissue was planned using Gamma Plan to allow for the best isodose distribution and dosimetry/DVH. The dose to normal tissue and target tissue was confirmed upon review of the calculated dose. A completed summary of this plan dated 01/27/2023 incorporated herein by reference includes dose, isodose distribution and DVH. Electronically Signed Burak Daley M.D. / [facility] 31:29 [facility]10-27-2023 History of Present illness Narrative* Gurpreet Beckwith DO, PhD - 01/27/2023 1:49 PM EDT [facility] [address] [place] [address] [place] OPERATIVE REPORT NAME: Ben Cruz [facility] NO.: [id number] MASK SIMULATION DATE: 2023-01-27 RADIATION TREATMENT START DATE: 2023-01-27 RADIATION TREATMENT END DATE: 2023-01-27 NUMBER OF FRACTIONS: 1 PREOPERATIVE DIAGNOSIS: Meningioma POSTOPERATIVE DIAGNOSIS: Same OPERATION: 1 fraction mask gamma knife 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. ANESTHESIA: None SURGEON: Gurpreet Beckwith DO, PhD - Stereotactic treatment planning. RADIATION ONCOLOGIST: Burak Daley M.D. ASSISTANTS: NONE SPECIMEN: None EBL: 0 ccs OPERATIVE INDICATIONS: The full clinical history and indications for treatment were discussed in the initial neurosurgery visit note. The indications, risks, benefits, and alternatives were discussedwith the patient who asked us to proceed. The patient is aware that this may be one of several staged procedures in the management of this disorder. OPERATIVE FINDINGS: DESCRIPTION OF PROCEDURE: The patient was admitted to the Gamma Knife Center. The Leksell mask was created and a stereotactic cone-beam CT was obtained. The patient then underwent high-resolution MRIand CT imaging. The scans, including the cone-beam registration CT, were loaded in the planning computer and Leksell gamma plan was used to perform fractionated 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 dose planning. The lesionwas treated as follows: Target 1 (l f) Location: l f Prescription: 14 Gy to the 56% local isodose line The plan uses 5 shots covering 100% of the target. GTV Volume: 0.283 cm3 CTV Volume: 0.283 cm3 Max linear size: 0.97 cm Conformality Index (PIV/CTV) = 1.382 Complexity: Simple Gradient Index: 2.8 Number of Fractions: 1 After the usual quality management nurse procedures were performed, fractionated 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 was delivered with use of the Gamma Knife. The Gamma Knife checklist and time outs were performed during this procedure. Gurpreet Beckwith DO, PhD documented in [facility] encounterR[facility]10-27-2023 NoteHNO ID: [id number] Author: Gurpreet Beckwith DO, PhD Service: ? Author Type: Physician Type: Progress Notes Filed: 01/27/2023 11:22 AM Note Text: [facility] [address] [place] [address] [place] OPERATIVE REPORT NAME: Ben Cruz [facility] NO.: [id number] MASK SIMULATION DATE: 2023-01-27 RADIATION TREATMENT START DATE: 2023-01-27 RADIATION TREATMENT END DATE: 2023-01-27 NUMBER OF FRACTIONS: 1 PREOPERATIVE DIAGNOSIS: Meningioma POSTOPERATIVE DIAGNOSIS: Same OPERATION: 1 fraction mask gamma knife 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. ANESTHESIA: None SURGEON: Gurpreet Beckwith DO, PhD - Stereotactic treatment planning. RADIATION ONCOLOGIST: Burak Daley M.D. ASSISTANTS: NONE SPECIMEN: None EBL: 0 ccs OPERATIVE INDICATIONS: The full clinical history and indications for treatment were discussed in the initial neurosurgery visit note. The indications, risks, benefits, and alternatives were discussed with the patient who asked us to proceed. The patient is aware that this may be one of several staged procedures in the management of this disorder. OPERATIVE FINDINGS: DESCRIPTION OF PROCEDURE: The patient was admitted to the Gamma Knife Center. The Leksell mask was created and a stereotactic cone-beam CT was obtained. The patient then underwent high-resolution MRI and CT imaging. The scans, including the cone-beam registration CT, were loaded in the planning computer and Leksell gamma plan was used to perform fractionated 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 dose planning. The lesion was treated as follows: Target 1 (l f) Location: l f Prescription: 14 Gy to the 56% local isodose line The plan uses 5 shots covering 100% of the target. GTV Volume: 0.283 cm3 CTV Volume: 0.283 cm3 Max linear size: 0.97 cm Conformality Index (PIV/CTV) = 1.382 Complexity: Simple Gradient Index: 2.8 Number of Fractions: 1 After the usual quality management nurse procedures were performed, fractionated 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 was delivered with use of the Gamma Knife. The Gamma Knife checklist and time outs were performed during this procedure. Gurpreet Beckwith DO, PhDSelect [facility]10-27-2023 NoteHNO ID: [id number] Author: Zee Padilla Tech Service: Radiology Author Type: Overhead Distribution Engineer Type: Progress Notes Filed: 01/27/2023 8:06 AM Note Text: Radiology Service Progress Note PATIENT NAME: Ben Cruz DATE OF SERVICE: January 27, 2023 TIME: 8:06 AM PATIENT IDENTITY VERIFICATION COMPLETED USING TWO (2) IDENTIFIERS: Name and Date of confirmed by patient verbally. FALL SCREENING: Has the patient had 2 falls in the last year or 1 fall with injury or currently using an Ambulatory Assistive Device (Walker, Cane, Wheelchair, Crutches, etc.)? No PATIENT GENDER DATA: Female. status: : No status: NO. PATIENT RELEVANT IMPLANT DATA REVIEWED: Yes RADIOLOGY DEPARTMENT: CT; Exam(s) Completed: Brain MASK PERIPHERAL IV DATA: Not applicable SIGNED BY: Tyshawn Lawler January 27, 2023 8:06 [facility]10-27-2023 NoteHNO ID: [id number] Author: Gurpreet Beckwith DO, PhD Service: ? Author Type: Physician Type: Progress Notes Filed: 01/27/2023 10:12 AM Note Text: [facility] History and Physical Diagnosis: Meningioma Subjective History of Present Illness: 47 y/o RHF here for gamma knife treatment. 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 Saw Dr Licona 06 21 22: rec observation w FU imaging Saw Dr Licona 10 19 22: MRI brain on 10/17/2022 showed small interval growth of meningioma now measuring 8 mm previously 7 mm. c/w mild HAs Saw Dr Echeverria June 2022: Also follows w Derm Concerned about the growth and was seen virtually 11 04 22 to discuss GK 01 27 23: Presents today for GK No new neurologic symptoms Has some anxiety about the mask but feels she will be ok No on steroids No sz Last Chemo: N/A Current Steroids dose: N/A Current AED Dose: N/A Therapy Status Data Form Past Medical History: No past medical history on file. Past Surgical History: No past surgical history on file. Family History: No family history on file. Social History Tobacco Use Smoking status: Former Types: Cigarettes Quit date: 08/02/2018 Years since quittin.4 Smokeless tobacco: Never Vaping Use Vaping Use: Never used Substance Use Topics Alcohol use: Yes Comment: occasionally Drug use: Never Allergies: Patient has no known allergies. Current Outpatient Medications Medication Sig [START ON 01/28/2023] dexAMETHasone (DECADRON) 4 mg tablet Start the day after your Gamma Knife Procedure: Decadron (Dexamethasone), Take 4 mg (1 tablet) daily for 4 days, Take 2 mg (1/2 tablet) daily for 4 days, then stop Decadron [START ON 01/28/2023] famotidine (PEPCID) 20 mg tablet Take 1 tablet by mouth once daily. meloxicam (MOBIC) 15 mg tablet inclisiran (LEQVIO) 284 mg/1.5 mL injection omeprazole (PRILOSEC) 20 mg capsule Take 20 mg by mouth once daily. No current facility-administered medications for this visit. Review of systems: Constitutional: Has lost about 30 lbs- intentional Eyes: No history of glaucoma or cataracts. ENMT: recent MRI showed sinus infection; sense of smell better but not nl yet CV: No history of chest pain, palpitations or leg swelling. Respiratory: No history of SOB, asthma or recent cough. Gastrointestinal: No history of nausea, vomiting, dysphagia or abdominal pain. Genitourinary: No history of hematuria or dysuria. Musculoskeletal: No complaint of arthritis, unstable gait or arm/leg weakness. Psychiatric: No history of hallucinations or depression or anxiety. ROS Neurological: + headache on and off. No complaint of tinnitus. No complaint of decreased hearing. No complaint of diplopia. Feels vision is not as sharp- has an appointment No complaint of arm/leg numbness. No problem with limb coordination. No complaint of syncope, seizures or disorientation. Objective Physical Exam: General Exam PHYSICAL EXAMINATION: NAD LCTA HRRR ABD: soft NT FINDINGS: Neurological: Higher integrative functions: Oriented to person, place AND time Memory: 3/3I and 3/3 at 5 minutes Attention Span and Concentration: Good Language: Accurate naming of objects. Good comprehension Fund of Knowledge: Good 3rd,4th,6th CN: Pupils (=), round, react to light, full extraocular movements: 7th CN: Facial muscles symmetric and strong Motor: 5/5 Gait nl Reflexes symmetric CRISTINE nl KPS: 90 KPS and ECOG Provider Data Form PHQ 2 and 9 Total Scores 10/17/2022 PHQ-2 Score 0 Labs: CBC Latest Ref Rng AND Units 01/24/2019 WBC 3.70 - 11.00 k/uL 8.14 RBC 3.90 - 5.20 m/uL 4.99 HEMOGLOBIN 11.5 - 15.5 g/dL 14.1 HEMATOCRIT 36.0 - 46.0 % 43.5 MCV 80.0 - 100.0 fL 87.2 MCH 26.0 - 34.0 pG 28.3 MCHC 30.5 - 36.0 g/dL 32.4 RDW-CV 11.5 - 15.0 % 12.1 PLATELETS 150 - 400 k/uL 285 MPV 9.0 - 12.7 fL 8.6(L) BASO% % 0.2 ABS NEUT (ANC) 1.45 - 7.50 k/uL 5.09 ABS LYMPH 1.00 - 4.00 k/uL 2.12 ABS MONO <0.87 k/uL 0.72 ABS EOSIN <0.46 k/uL 0.19 ABS BASO <0.11 k/uL <0.03 DIFF TYPE - Auto Diff CMP Latest Ref Rng AND Units 01/24/2019 SODIUM 136 - 144 mmol/L 141 POTASSIUM 3.7 - 5.1 mmol/L 4.4 CHLORIDE 97 - 105 mmol/L 102 CO2 22 - 30 mmol/L 27 GLUCOSE 74 - 99 mg/dL 94 BUN 7 - 21 mg/dL 17 CREATININE 0.58 - 0.96 mg/dL 0.92 EGFR-ALL OTHER RACES . >60 EGFR- - >60 PROTEIN, TOTAL 6.3 - 8.0 g/dL 7.1 ALBUMIN 3.9 - 4.9 g/dL 4.6 CALCIUM, TOTAL 8.5 - 10.2 mg/dL 9.8 BILIRUBIN, TOTAL 0.2 - 1.3 mg/dL 0.3 AST 13 - 35 U/L 16 ALT 7 - 38 U/L 16 ALKALINE PHOSPHATASE 34 - 123 U/L 60 (more content not included)...[facility]10-27-2023 History of Present illness Narrative* Gurpreet Beckwith DO, PhD - 01/27/2023 11:21 AM EDT [facility] [address] [place] [address] [place] OPERATIVE REPORT NAME: Ben Cruz [facility] NO.: [id number] MASK SIMULATION DATE: 2023-01-27 RADIATION TREATMENT START DATE: 2023-01-27 RADIATION TREATMENT END DATE: 2023-01-27 NUMBER OF FRACTIONS: 1 PREOPERATIVE DIAGNOSIS: Meningioma POSTOPERATIVE DIAGNOSIS: Same OPERATION: 1 fraction mask gamma knife 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. ANESTHESIA: None SURGEON: Gurpreet Beckwith DO, PhD - Stereotactic treatment planning. RADIATION ONCOLOGIST: Burak Daley M.D. ASSISTANTS: NONE SPECIMEN: None EBL: 0 ccs OPERATIVE INDICATIONS: The full clinical history and indications for treatment were discussed in the initial neurosurgery visit note. The indications, risks, benefits, and alternatives were discussedwith the patient who asked us to proceed. The patient is aware that this may be one of several staged procedures in the management of this disorder. OPERATIVE FINDINGS: DESCRIPTION OF PROCEDURE: The patient was admitted to the Gamma Knife Center. The Leksell mask was created and a stereotactic cone-beam CT was obtained. The patient then underwent high-resolution MRIand CT imaging. The scans, including the cone-beam registration CT, were loaded in the planning computer and Leksell gamma plan was used to perform fractionated 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 dose planning. The lesionwas treated as follows: Target 1 (l f) Location: l f Prescription: 14 Gy to the 56% local isodose line The plan uses 5 shots covering 100% of the target. GTV Volume: 0.283 cm3 CTV Volume: 0.283 cm3 Max linear size: 0.97 cm Conformality Index (PIV/CTV) = 1.382 Complexity: Simple Gradient Index: 2.8 Number of Fractions: 1 After the usual quality management nurse procedures were performed, fractionated 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 was delivered with use of the Gamma Knife. The Gamma Knife checklist and time outs were performed during this procedure. Gurpreet Beckwith DO, PhD documented in this encounterR[facility]10-27-2023 History of Present illness Narrative* Zee Padilla Tech - 01/27/2023 10:00 AM EDT Radiology Service Progress Note PATIENT NAME: Ben Cruz DATE OF SERVICE: January 27, 2023 TIME: 8:06 AM PATIENT IDENTITY VERIFICATION COMPLETED USING TWO (2) IDENTIFIERS: Name and Date of confirmedby patient verbally. FALL SCREENING: Has the patient had 2 falls in the last year or 1 fall with injury or currently using an Ambulatory Assistive Device (Walker, Cane, Wheelchair, Crutches, etc.)? No PATIENT GENDER DATA: Female. status: : No status: NO. PATIENT RELEVANT IMPLANT DATA REVIEWED: Yes RADIOLOGY DEPARTMENT: CT; Exam(s) Completed: Brain MASK PERIPHERAL IV DATA: Not applicable SIGNED BY: Tyshawn Lawler January 27, 2023 8:06 AM documented in this encounterRiverview Health Institute10-27-2023 NoteHNO ID: [id number] Author: Anton Terrell RN Service: Nursing Author Type: Registered Nurse Type: Progress Notes Filed: 01/27/2023 7:48 AM Note Text: Radiology Service Progress Note DATE OF SERVICE: January 27, 2023 TIME: 7:46 AM PATIENT WEIGHT: 209 LBS PATIENT IDENTITY VERIFICATION COMPLETED USING TWO (2) STANDARD IDENTIFIERS: Name and Date of confirmed by patient verbally. FALL SCREENING: Has the patient had 2 falls in the last year or 1 fall with injury or currently using an Ambulatory Assistive Device (Walker, Cane, Wheelchair, Crutches, etc.)? No PATIENT GENDER DATA: Female. status: : No status: NO. ALLERGIES: Reviewed and unchanged CONTRAST ALLERGY: No EXAM: MRI - CONTRAST TYPE: GROUP II IV SITE: Ambulatory: A peripheral IV was started in the Right antecubital site with a Angio cath: 22 gauge. and A Saline lock was inserted per protocol IV SITE APPEARANCE: Clean,Dry and Intact SIGNATURE: Anton Terrell RN PATIENT NAME: Ben Cruz DATE: January 27, 2023 TIME: 7:46 [facility]10-27-2023 NoteHNO ID: [id number] Author: Mariela Burk RT(R) Service: Radiology Author Type: Technologist Type: Progress Notes Filed: 01/27/2023 7:59 AM Note Text: Radiology Service Progress Note PATIENT NAME: Ben Cruz DATE OF SERVICE: January 27, 2023 TIME: 7:59 AM PATIENT IDENTITY VERIFICATION COMPLETED USING TWO (2) IDENTIFIERS: Name and Date of confirmed by patient verbally. FALL SCREENING: Has the patient had 2 falls in the last year or 1 fall with injury or currently using an Ambulatory Assistive Device (Walker, Cane, Wheelchair, Crutches, etc.)? No PATIENT GENDER DATA: Female. status: : No status: NO. PATIENT RELEVANT IMPLANT DATA REVIEWED: Yes RADIOLOGY DEPARTMENT: MR; Exam(s) Completed: Head: Localization mprage PERIPHERAL IV DATA: Site assessment: Clean,Dry and Intact, Site disposition Discontinued SIGNED BY: RT Nestor(R) January 27, 2023 7:59 [facility]10-27-2023 History of Present illness Narrative* Gurpreet Beckwith DO, PhD - 01/27/2023 9:29 AM EDT Images from the original note were not included. [facility] History and Physical Diagnosis: Meningioma Subjective History of Present Illness: 47 y/o RHF here for gamma knife treatment. PMHx: History of desmoplastic melanoma T4aN0 Follows w Dr Echeverria and was having bad KENDRICK post covid Secodanry to the hx a brain MRI was ordered MRI 06 01 21 a subcentimeter L frontal meningioma noted on staging MR Had FU MRIs August 23 and 02 23 22 and more recently 10 17 22 On staging, she was found to have newly diagnosed (06/16) hemangioma of the liver. Saw Dr Licona 06 21 22: rec observation w FU imaging Saw Dr Licona 10 19 22: MRI brain on 10/17/2022 showed small interval growth of meningioma now measuring 8 mm previously 7 mm. c/w mild HAs Saw Dr Echeverria June 2022: Also follows w Derm Concerned about the growth and was seen virtually 11 04 22 to discuss GK 01 27 23: Presents today for GK No new neurologic symptoms Has some anxiety about the mask but feels she will be ok No on steroids No sz Last Chemo: N/A Current Steroids dose: N/A Current AED Dose: N/A Therapy Status Data Form Past Medical History: No past medical history on file. Past Surgical History: No past surgical history on file. Family History: No family history on file. Social History Tobacco Use Smoking status: Former Types: Cigarettes Quit date: 08/02/2018 Years since quittin.4 Smokeless tobacco: Never Vaping Use Vaping Use: Never used Substance Use Topics Alcohol use: Yes Comment: occasionally Drug use: Never Allergies: Patient has no known allergies. Current Outpatient Medications Medication Sig [START ON 01/28/2023] dexAMETHasone (DECADRON) 4 mg tablet Start the day after your Gamma Knife Procedure: Decadron (Dexamethasone), Take 4 mg (1 tablet) daily for 4 days, Take 2 mg (1/2 tablet) daily for 4 days, then stop Decadron [START ON 01/28/2023] famotidine (PEPCID) 20 mg tablet Take 1 tablet by mouth once daily. meloxicam (MOBIC) 15 mg tablet inclisiran (LEQVIO) 284 mg/1.5 mL injection omeprazole (PRILOSEC) 20 mg capsule Take 20 mg by mouth once daily. No current facility-administered medications for this visit. Review of systems: Constitutional: Has lost about 30 lbs- intentional Eyes: No history of glaucoma or cataracts. ENMT: recent MRI showed sinus infection; sense of smell better but not nl yet CV: No history of chest pain, palpitations or leg swelling. Respiratory: No history of SOB, asthma or recent cough. Gastrointestinal: No history of nausea, vomiting, dysphagia or abdominal pain. Genitourinary: No history of hematuria or dysuria. Musculoskeletal: No complaint of arthritis, unstable gait or arm/leg weakness. Psychiatric: No history of hallucinations or depression or anxiety. ROS Neurological: + headache on and off. No complaint of tinnitus. No complaint of decreased hearing. No complaint of diplopia. Feels vision is not as sharp- has an appointment No complaint of arm/leg numbness. No problem with limb coordination. No complaint of syncope, seizures or disorientation. Objective Physical Exam: General Exam PHYSICAL EXAMINATION: NAD LCTA HRRR ABD: soft NT FINDINGS: Neurological: Higher integrative functions: Oriented to person, place & time Memory: 3/3I and 3/3 at 5 minutes Attention Span and Concentration: Good Language: Accurate naming of objects. Good comprehension Fund of Knowledge: Good 3rd,4th,6th CN: Pupils (=), round, react to light, full extraocular movements: 7th CN: Facial muscles symmetric and strong Motor: 5/5 Gait nl Reflexes symmetric CRISTINE nl KPS: 90 KPS and ECOG Provider Data Form PHQ 2 and 9 Total Scores 10/17/2022 PHQ-2 Score 0 Labs: CBC Latest Ref Rng & Units 01/24/2019 WBC 3.70 - 11.00 k/uL 8.14 RBC 3.90 - 5.20 m/uL 4.99 HEMOGLOBIN 11.5 - 15.5 g/dL 14.1 HEMATOCRIT 36.0 - 46.0 % 43.5 MCV 80.0 - 100.0 fL 87.2 MCH 26.0 - 34.0 pG 28.3 MCHC 30.5 - 36.0 g/dL 32.4 RDW-CV 11.5 - 15.0 % 12.1 PLATELETS 150 - 400 k/uL 285 MPV 9.0 - 12.7 fL 8.6(L) BASO% % 0.2 ABS NEUT (ANC) 1.45 - 7.50 k/uL 5.09 ABS LYMPH 1.00 - 4.00 k/uL 2.12 ABS MONO <0.87 k/uL 0.72 ABS EOSIN <0.46 k/uL 0.19 ABS BASO <0.11 k/uL <0.03 DIFF TYPE - Auto Diff CMP Latest Ref Rng & Units 01/24/2019 SODIUM 136 - 144 mmol/L 141 POTASSIUM 3.7 - 5.1 mmol/L 4.4 CHLORIDE 97 - 105 mmol/L 102 CO2 22 - 30 mmol/L 27 GLUCOSE 74 - 99 mg/dL 94 BUN 7 - 21 mg/dL 17 CREATININE 0.58 - 0.96 mg/dL 0.92 EGFR-ALL OTHER RACES . >60 EGFR- - >60 PROTEIN, TOTAL 6.3 - 8.0 g/dL 7.1 ALBUMIN 3.9 - 4.9 g/dL 4.6 CALCIUM, TOTAL 8.5 - 10.2 mg/dL 9.8 BILIRUBIN, TOTAL 0.2 - 1.3 mg/dL 0.3 AST 13 - 35 U/L 16 ALT 7 - 38 U/L 16 ALKALINE PHOSPHATASE 34 - 123 U/L 60 Final Pathology: Specimen #: [id number]* Submitting Physician: DEBBIE ECHEVERRIA MD FINAL DIAGNOSIS Skin, left upper midline back, shave biopsy - Desmoplastic melanoma, see synoptic report. SDB/rw 11/09/2018 Imagin01 27 2023 - MRI Brain Localization w/ IV Contrast: MRI Report MRI BRAIN LOCALIZATION W IVCON Exam End: 01/27/2023 8:04 AM (Final result) Narrative: * * *Final Report* * * DATE OF EXAM: Jan 27 2023 8:04AM CAM [id number] - MRI BRAIN LOCAL W IVCON / PROCEDURE REASON: Benign neoplasm of meninges (HCC) * * * * Physician Interpretation * * * * EXAMINATION: MRI BRAIN LOCAL W IVCON HISTORY: Malignant melanoma, likely meningioma TECHNIQUE: Specialized protocol comprising single volumetric T1-weighted acquisition with contrast MQ: [id number] Contrast: 20 mL Dotarem IV COMPARISON: Brain MRI 02/23/2022, 08/23/2021, and others going back to presentation on 06/01/2021 RESULT: Redemonstrated is previously seen small extra-axial enhancing tissue over the left middle frontal gyrus. Using 3-D MPR techniques to coregister identical planes to multiple studies, from 10/17/2022 and going back to 06/01/2021, there is no significant change in the size of this enhancing tissue, within the resolution of 1 mm. It sits superficial to a small focus of concordant hyperostosis. Maximal enhancing thickness is about 3-4 mm, and this is over a base diameter of about 8-9 mm. No other suspicious enhancement is identified. Accounting for this technique there is no subjacent parenchymal reaction. Impression: IMPRESSION: REDEMONSTRATION OF LIKELY SMALL MENINGIOMA OVER LEFT FRONTAL LOBE, UNCHANGED GOING BACK TO 06/01/2021 Library Clerk: [facility]Whit Transcribe Date/Time: Jan 27 2023 8:08A Dictated by : ESTUARDO WHALEY MD This examination was interpreted and the report reviewed and electronically signed by: ESTUARDO WHALEY MD on Jan 27 2023 8:20AM EST Assessment & Plan 47 y/o RHF here for gamma knife treatment. PMHx: History of desmoplastic melanoma T4aN0 Follows w Dr Echeverria and was having bad KENDRICK post covid Secodanry to the hx a brain MRI was ordered MRI 06 01 21 a subcentimeter L frontal meningioma noted on staging MR Had FU MRIs August 23 and 02 23 22 and more recently 10 17 22 On staging, she was found to have newly diagnosed (06/16) hemangioma of the liver. Saw Dr Licona 06 21 22: rec observation w FU imaging Saw Dr Licona 10 19 22: MRI brain on 10/17/2022 showed small interval growth of meningioma now measuring 8 mm previously 7 mm. c/w mild HAs Saw Dr Echeverria June 2022: Also follows w Derm Concerned about the growth and wants to have Gamma Knife 01 27 23: Presents today for GK No new neurologic symptoms Has some anxiety about the mask but feels she will be ok No on steroids No sz Last Chemo: N/A Current Steroids dose: N/A Current AED Dose: N/A I reviewed the above hx in detail with Ben and her . She has a h/o desmoplastic melanoma and is followed by Oncology. She had a brain MRI showing what appears to be a LF meningioma w/o edema. She has been followed with Dr Licona and it has shown some growth and she wishes to have treatment.The Localization MRI is stable and she did ok w the mask making today and consented for GK. She will be tx at 14 Gy and will be on a short steroid taper post tx. All questions were answered. We discussed the masked based Gamma Knife procedure including the specific risks and benefits related to the procedure. Prior to the procedure a mask will be molded to the patient's face according tostandard protocol. The patient will also undergo a pre-frame MRI scan, a routine diagnostic CT where tumor contouring and treatment planning will be performed. The CT scan is necessary to correct forthe spatial distortion of the MRI. Both scans will be evaluated by a radiologist and the results will be discussed with the patient . The radiation oncologist reviews the plan and assigns a dose of radiation. The radiation physicist reviews the plan and confirms the machine is working properly. Prior to treatment, the patient will have a CBCT with the mask on the Icon GK machine and this image will be co-registered to the previously obtained diagnostic sequences and localization and targeting confirmed by radiation oncology and physics prior to treatment delivery. For fractionated masked based treatment, daily CBCT and target confirmation will be performed just prior to treatment and verified daily as above. The patient lies down on the treatment couch and the lesion(s) targeted with up to 192 beams of radiation to converging on the identified target. Just prior to treatment, the staff will leave the room and the patient will be monitored by 3 television cameras and 2 intercom systems. The patient willthen slide into the device up to their lower chest for a variable duration and number of times as re quired for the treatment plan and then exit. When the treatment is completed, the patient will be taken out of the treatment area and postoperative and follow-up instructions will be given prior to discharge as well as discharge steroids as required.. Ben understands that this treatment will not prevent new lesions. She also understands that thistreatment is local therapy and there are risks related to radiation of regional structures. Plan: Masked based GK today Gurpreet Beckwith DO, PhD cc: Ben Licona- muna Echeverria- muna documented in this encounterRiver[facility] Institute10-27-2023 NoteHNO ID: [id number] Author: Gayle Acevedo RN Service: ? Author Type: Registered Nurse Type: Progress Notes Filed: 01/27/2023 10:29 AM Note Text: January 27, 2023 0630 Ben arrived ambulatory Discharge Transportation Verification: Yes, via/with Ben arrived for imaging, mask SIM, ICON mask-based GKRS, and single-session mask-based treatment. 0645 1 mg PO Ativan given for anxiety prior to mask SIM per order of Dr. Aria Beckwith, DO, Gayle Acevedo RN 0735 Mask SIM completed. Ben Cruz returned to department for treatment # 1 of 1. Is patient receiving immunotherapy infusions: Not Applicable. Patient's Age: 47 Menstruation Status: Hysterectomy 2019 [facility] Results: N/A test not performed QC: Yes, testing is valid (or protocol followed for invalid testing). Reference range: Normal Value = Negative for hCG. POC performed by: Gayle Acevedo RN 0933 4 mg Decadron PO given prior to GKRS per order of Dr. Virgil Beckwith 0946 GKRS start time. 1016 GKRS end time. 1025 Discharge instructions given to patient; instructions reviewed by this RN; patient/family verbalized understanding; patient discharged via/with Gayle Acevedo RN[facility] Instructions* Patient Instructions* Gayle Acevedo RN - 01/27/2023 7:45 AM EDT [facility] Discharge Instructions As with any surgery there are risks and potential side effects. There is a slight chance of developing brain swelling days or months after the Gamma Knife 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. If you experience nausea, vomiting, severe headache, visual changes, difficulty speaking, a seizure or any other symptom unusual for you, contact your physician immediately or go to the nearest emergency room. These may or may notbe symptoms of brain swelling. If you go to a physician or hospital other than the [facility] with any problem related to the Gamma Knife procedure, please notify the Gamma Knife nurse. Rarely, patients experience pain the day after their 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. You may take non-aspirin pain medication, such as Ibuprofen or Tylenol, if you are having any discomfort. Some patients are placed on steroids, such as Decadron, and an antacid, such as Pepcid, following their 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. Certain conditions require these medications to lessen the chance of swelling around the treated area. When prescribed, these medications are extremely important in the period immediately following your Gamma Knife treatment and must be taken exactly as directed. The Gamma Knife nurse will discuss your particular situation with you. Do not take any Decadron for the remainder of today. Begin following the regimen below on 01/28/23: Beginning the day after your Gamma Knife procedure: 1.) Take 4 mg (1 tablet) daily with breakfast for 4 days, then 2.) Take 2 mg (1/2 tablet) daily with breakfast for 4 days, then stop. Take Pepcid 20 mg (1 tablet) once daily while taking Decadron. Stop taking Pepcid 20 mg once the Decadron taper is complete. Resume all other regular medications. - Taking good care of your general health is an important step to recovery. Continue to eat well and get plenty of rest. At the time of discharge, you will be given your follow-up appointments with your neurosurgeon and radiation oncologist. If not, these appointment dates and times will be mailed to you. If you have any questions or problems, you may your physician, Dr. Virgil Beckwith at [phone] Monday through Monday 8:00 am to 5:00 pm, or call the Gamma Knife nurse Monday through Monday 8:00 am to 4:00 pm at [phone]. In the evening or on weekends, call [phone] or toll-free [phone] and ask the waterproofing machine operator to page your neurosurgeon's resident food production machine operator. documented in this encounterRiverview Health Institute10-27-2023 History of Present illness Narrative* Anton Terrell RN - 01/27/2023 7:40 AM EDT Radiology Service Progress Note DATE OF SERVICE: January 27, 2023 TIME: 7:46 AM PATIENT WEIGHT: 209 LBS PATIENT IDENTITY VERIFICATION COMPLETED USING TWO (2) STANDARD IDENTIFIERS: Name and Date of confirmed by patient verbally. FALL SCREENING: Has the patient had 2 falls in the last year or 1 fall with injury or currently using an Ambulatory Assistive Device (Walker, Cane, Wheelchair, Crutches, etc.)? No PATIENT GENDER DATA: Female. status: : No status: NO. ALLERGIES: Reviewed and unchanged CONTRAST ALLERGY: No EXAM: MRI - CONTRAST TYPE: GROUP II IV SITE: Ambulatory: A peripheral IV was started in the Right antecubital site with a Angio cath: 22 gauge. and A Saline lock was inserted per protocol IV SITE APPEARANCE: Clean,Dry and Intact SIGNATURE: Anton Terrell RN PATIENT NAME: Ben Cruz DATE: January 27, 2023 TIME: 7:46 AM * Mariela Burk RT(R) - 01/27/2023 7:40 AM EDT Radiology Service Progress Note PATIENT NAME: Ben Cruz DATE OF SERVICE: January 27, 2023 TIME: 7:59 AM PATIENT IDENTITY VERIFICATION COMPLETED USING TWO (2) IDENTIFIERS: Name and Date of confirmedby patient verbally. FALL SCREENING: Has the patient had 2 falls in the last year or 1 fall with injury or currently using an Ambulatory Assistive Device (Walker, Cane, Wheelchair, Crutches, etc.)? No PATIENT GENDER DATA: Female. status: : No status: NO. PATIENT RELEVANT IMPLANT DATA REVIEWED: Yes RADIOLOGY DEPARTMENT: MR; Exam(s) Completed: Head: Localization mprage PERIPHERAL IV DATA: Site assessment: Clean,Dry and Intact, Site disposition Discontinued SIGNED BY: RT Nestor(R) January 27, 2023 7:59 AM documented in this encounterRiverview Health Institute10-27-2023 History of Present illness Narrative* Gayle Acevedo RN - 01/27/2023 6:34 AM EDT January 27, 2023 0630 Ben arrived ambulatory Discharge Transportation Verification: Yes, via/with Ben arrived for imaging, mask SIM, ICON mask-based GKRS, and single-session mask-based treatment. 0645 1 mg PO Ativan given for anxiety prior to mask SIM per order of Dr. Aria Beckwith DO, Gayle Acevedo RN 0735 Mask SIM completed. Ben Cruz returned to department for treatment # 1 of 1. Is patient receiving immunotherapy infusions: Not Applicable. Patient's Age: 47 Menstruation Status: Hysterectomy 2019 [facility] Results: N/A test not performed QC: Yes, testing is valid (or protocol followed for invalid testing). Reference range: Normal Value = Negative for hCG. POC performed by: Gayle Acevedo RN 0933 4 mg Decadron PO given prior to GKRS per order of Dr. Virgil Beckwith 0946 GKRS start time. 1016 GKRS end time. 1025 Discharge instructions given to patient; instructions reviewed by this RN; patient/family verbalized understanding; patient discharged via/with Gayle Acevedo RN documented in this encounterRiverview Health Institute10-27-2023 History of Present illness Narrative* Burak Daley MD - 01/27/2023 12:00 AM EDT SHARONA BEN Felix [id number] 01/27/2023 [facility] Cindi Diez [facility] STEREOTACTIC RADIOSURGERY (SRS) DAILY PROCEDURE NOTE DATE OF PROCEDURE: 01/27/2023 FRACTION NUMBER: 1 of CUMULATIVE DOSE: 14Gy (Out of a planned 14Gy) DIAGNOSIS: paste from simulation note PROCEDURE: Under my direct supervision the patient was set up on the treatment table and all treatment parameters were verified, including patient identity and treatment site. CBCT obtained which wasco-registered using the treatment planning system. Adaptive replan was verified and approved. Once the beam was turned on, the patient position and target location were continuously monitored during delivery of the SRS using infrared tracking. At all points of decision- making with regard to patientsetup, I conferred with the biomedical service engineer to approve the final setup. I was available throughout the SRS treatment to manage the execution of the treatment and make real-time adjustments in response to patient motion, target movement, or equipment issues to ensure accuracy and safety. The patient was evaluated by me after treatment and was discharged home in stable condition. DESCRIPTION OF IMMBOLIZATION/PROCE DURE: # ARCS/BOYD TREATED 5-point Orfit mask Dynamic Conformal Arcs Body Fix Inverse Plan Algorithm/IMRT Beams Abdominal compression-plunger device RapidArc Abdominal compression- belt device X Gamma Knife Active Breathing Coordinator (ABC) X ICON TREATMENT VOLUMES: GTV (Defined by neurosurgeon) DOSES: GTV total of 14Gy PHYSICIST NAME: Tono Bourne, PhD INTERVENTIONS: None ASSESSMENT/PLAN: Patient tolerated procedure well. We will continue as planned. Electronically Signed Burak Daley M.D. :10 PM documented in this encounterRiverview Health Institute10-27-2023 History of Present illness Narrative* Burak Daley MD - 01/27/2023 12:00 AM EDT BEN CRUZ [id number] 01/27/2023 [facility] Department of Radiation Oncology [facility] RADIATION ONCOLOGY GAMMA KNIFE TREATMENT PLANNING NOTE For reasons stated in the consult note, BEN CRUZ is a candidate for definitive 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. Based on review and interpretation of the relevant diagnostic studies together with the exam findings, BEN CRUZ was imaged on 01/27/2023. The CT and MRI imaging was fused and checked in Gamma Planby the radiation oncologist/neurosurgeon and physicist and the target volume to be treated as well as the critical normal structure(s) were delineated. After participating in the treatment planning process with neurosurgery and medical physics, I approved the best plan to deliver my prescribed course of 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. The target tissue was planned using Gamma Plan to allow for the best isodose distribution and dosimetry/DVH. The dose to normal tissue and target tissue was confirmed upon review of the calculated dose. A completed summary of this plan dated 01/27/2023 incorporated herein by reference includes dose, isodose distribution and DVH. Electronically Signed Burak Daley M.D. / [facility] :29 PM documented in this encounterRiverview Health Institute09-21-2023 NoteHNO ID: [id number] Author: Debbie Echeverria MD Service: ? Author Type: Physician Type: Progress Notes Filed: 12/23/2022 9:46 AM Note Text: December 22, 2022 DXN: Resected T4aN0 desmoplastic melanoma. The lesion was about 4.5mm located on her back with 2 negative SLNs (left axilla). There was no reported neurtropism and only one mitotic figure. Margins were negative. Declined an adjuvant trial in [place]. Baseline imaging today is negative CC: Melanoma follow up HPI: Doing well. No new symptoms. Derm follow up has been clear. 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 She has a meningioma under survielllance with RadOnc. F/u with Derm. RTC in 6 months Elements of this note, including HPI, ROS, Physical Exam, Assessment and Plan were copied and pasted from 06.21.22 note. Updates have been made where noted and reflect current exam and medical decision making from December 22, 2022. Chad Ty DO, MS PGY2, Internal Medicine These recommendations are not final until staffed by attending provider. I have reviewed the history, physical obtained and documented by the Resident and I personally participated in all of the beckwith components. I have discussed the case and management of the patient's care with the Resident. The following comments revise or confirm relevant beckwith components of the Resident. Debbie Echeverria, [facility]08-15-2023 Miscellaneous Notes* Telephone Encounter - Betzy Heard, BIGG - 11/15/2022 1:57 PM EDT Calling Ben to follow up on Clic[employer] message about scheduling gamma knife for 01/27/2023 No answer, left message stating that I'll go ahead and place the GK orders. Reminded to disregard ANY appointment times she sees in [employer]lic[employer], any automated text reminders or automated phone calls for 01/27/23 She will receive a call from the GK nurse or radiation therapist the day before with her arrival time. If she has any questions, I left office phone # for call back or she can send a Clic[employer] message. I will send out a GK folder with additional information related to Mask Based Gamma Knife Radiosurgery Betzy Heard RN, BSN Vacuum Frame Operator [facility] documented in this encounterRiverview Health Institute08-04-2023 NoteHNO ID: [id number] Author: Gurpreet Beckwith DO, PhD Service: ? Author Type: Physician Type: Progress Notes Filed: 11/04/2022 1:27 PM Note Text: [facility] New Patient Virtual Consultation Referred by Dr. Luis Licona We had a virtual visit conducted via [employer] virtual visit. I received consent from the patient to perform the visit using this platform. I have communicated my name and active licensure. The patient's identity and physical location were verified at the time of this visit. Either the patient or their legal contracts representative has been informed of the risks and benefits of -- and alternatives to -- treatment through a remote evaluation and consents to proceed with the evaluation remotely. Diagnosis: Meningioma Subjective History of Present Illness: 47 y/o RHF een for discussion of GK for meningioma PMHx: History of desmoplastic melanoma T4aN0 Follows w Dr Echeverria and was having bad KENDRICK post covid Secodanry to the a brain MRI was ordered MRI 06 01 21 a subcentimeter L frontal meningioma noted on staging MR Had FU MRIs August 23 and 02 23 22 and more recently 10 17 22 On staging, she was found to have newly diagnosed (06/16) hemangioma of the liver. Saw Dr Licona 06 21 22: rec observation w FU imaging Saw Dr Licona 10 19 22: MRI brain on 10/17/2022 showed small interval growth of meningioma now measuring 8 mm previously 7 mm. c/w mild HAs Saw Dr Echeverria June 2022: Also follows w Derm Concerned about the growth and wants to have Gamma Knife Last Chemo: N/A Current Steroids dose: N/A Current AED Dose: N/A Therapy Status Data Form Past Medical History: No past medical history on file. Past Surgical History: No past surgical history on file. Family History: No family history on file. Social History Tobacco Use Smoking status: Former Types: Cigarettes Quit date: 08/02/2018 Years since quittin.2 Smokeless tobacco: Never Vaping Use Vaping Use: Never used Substance Use Topics Alcohol use: Yes Comment: occasionally Drug use: Never Allergies: Patient has no known allergies. Current Outpatient Medications Medication Sig meloxicam (MOBIC) 15 mg tablet inclisiran (LEQVIO) 284 mg/1.5 mL injection omeprazole (PRILOSEC) 20 mg capsule Take 20 mg by mouth once daily. No current facility-administered medications for this visit. Review of systems: Constitutional: Has lost about 30 lbs- intentional Eyes: No history of glaucoma or cataracts. ENMT: recent MRI showed sinus infection; sense of smell better but not nl yet CV: No history of chest pain, palpitations or leg swelling. Respiratory: No history of SOB, asthma or recent cough. Gastrointestinal: No history of nausea, vomiting, dysphagia or abdominal pain. Genitourinary: No history of hematuria or dysuria. Musculoskeletal: No complaint of arthritis, unstable gait or arm/leg weakness. Psychiatric: No history of hallucinations or depression or anxiety. ROS Neurological: + headache on and off. No complaint of tinnitus. No complaint of decreased hearing. No complaint of diplopia. Feels vision is not as sharp- has an appointment No complaint of arm/leg numbness. No problem with limb coordination. No complaint of syncope, seizures or disorientation. Objective Physical Exam: General Exam PHYSICAL EXAMINATION: FINDINGS: Neurological: Higher integrative functions: Oriented to person, place AND time Memory: 3/3I and 3/3 at 5 minutes Attention Span and Concentration: Good Language: Accurate naming of objects. Good comprehension Fund of Knowledge: Good 3rd,4th,6th CN: Pupils (=), round, react to light, full extraocular movements: 7th CN: Facial muscles symmetric and strong KPS: 90 KPS and ECOG Provider Data Form PHQ 2 and 9 Total Scores 10/17/2022 PHQ-2 Score 0 Labs: CBC Latest Ref Rng AND Units 01/24/2019 WBC 3.70 - 11.00 k/uL 8.14 RBC 3.90 - 5.20 m/uL 4.99 HEMOGLOBIN 11.5 - 15.5 g/dL 14.1 HEMATOCRIT 36.0 - 46.0 % 43.5 MCV 80.0 - 100.0 fL 87.2 MCH 26.0 - 34.0 pG 28.3 MCHC 30.5 - 36.0 g/dL 32.4 RDW-CV 11.5 - 15.0 % 12.1 PLATELETS 150 - 400 k/uL 285 MPV 9.0 - 12.7 fL 8.6(L) BASO% % 0.2 ABS NEUT (ANC) 1.45 - 7.50 k/uL 5.09 ABS LYMPH 1.00 - 4.00 k/uL 2.12 ABS MONO <0.87 k/uL 0.72 ABS EOSIN <0.46 k/uL 0.19 ABS BASO <0.11 k/uL <0.03 DIFF TYPE - Auto Diff CMP Latest Ref Rng AND Units 01/24/2019 SODIUM 136 - 144 mmol/L 141 POTASSIUM 3.7 - 5.1 mmol/L 4.4 CHLORIDE 97 - 105 mmol/L 102 CO2 22 - 30 mmol/L 27 GLUCOSE 74 - 99 mg/dL 94 BUN 7 - 21 mg/dL 17 CREATININE 0.58 - 0.96 mg/dL 0.92 EGFR-ALL OTHER RACES . >60 EGFR- - >60 PROTEIN, TOTAL 6.3 - 8.0 g/dL 7.1 ALBUMIN 3.9 - 4.9 g/dL 4.6 CALCIUM, TOTAL 8.5 - 10.2 mg/dL 9.8 BILIRUBIN, TOTAL 0.2 - 1.3 mg/dL 0.3 AST 13 - 35 U/L 16 ALT 7 - 38 U/L 16 ALKALINE PHOSPHATASE 34 - 123 U/L 60 Final Pathology: Specimen #: [id number] (more content not included)...[facility] 11-04-2022 History of Present illness Narrative* Gurpreet Beckwith DO, PhD - 11/04/2022 1:00 PM EDT Images from the original note were not included. [facility] New Patient Virtual Consultation Referred by Dr. Luis Licona We had a virtual visit conducted via [employer]. I received consent from the patient to perform the visit using this platform. I have communicated my name and active licensure. The patient's identity and physical location wereverified at the time of this visit. Either the patient or their legal contracts representative has been informed of the risks and benefits of -- and alternatives to -- treatment through a remote evaluation andconsents to proceed with the evaluation remotely. Diagnosis: Meningioma Subjective History of Present Illness: 47 y/o RHF een for discussion of GK for meningioma PMHx: History of desmoplastic melanoma T4aN0 Follows w Dr Echeverria and was having bad KENDRICK post covid Secodanry to the a brain MRI was ordered MRI 06 01 21 a subcentimeter L frontal meningioma noted on staging MR Had FU MRIs August 23 and 02 23 22 and more recently 10 17 22 On staging, she was found to have newly diagnosed (06/16) hemangioma of the liver. Saw Dr Licona 06 21 22: rec observation w FU imaging Saw Dr Licona 10 19 22: MRI brain on 10/17/2022 showed small interval growth of meningioma now measuring 8 mm previously 7 mm. c/w mild HAs Saw Dr Echeverria June 2022: Also follows w Derm Concerned about the growth and wants to have Gamma Knife Last Chemo: N/A Current Steroids dose: N/A Current AED Dose: N/A Therapy Status Data Form Past Medical History: No past medical history on file. Past Surgical History: No past surgical history on file. Family History: No family history on file. Social History Tobacco Use Smoking status: Former Types: Cigarettes Quit date: 08/02/2018 Years since quittin.2 Smokeless tobacco: Never Vaping Use Vaping Use: Never used Substance Use Topics Alcohol use: Yes Comment: occasionally Drug use: Never Allergies: Patient has no known allergies. Current Outpatient Medications Medication Sig meloxicam (MOBIC) 15 mg tablet inclisiran (LEQVIO) 284 mg/1.5 mL injection omeprazole (PRILOSEC) 20 mg capsule Take 20 mg by mouth once daily. No current facility-administered medications for this visit. Review of systems: Constitutional: Has lost about 30 lbs- intentional Eyes: No history of glaucoma or cataracts. ENMT: recent MRI showed sinus infection; sense of smell better but not nl yet CV: No history of chest pain, palpitations or leg swelling. Respiratory: No history of SOB, asthma or recent cough. Gastrointestinal: No history of nausea, vomiting, dysphagia or abdominal pain. Genitourinary: No history of hematuria or dysuria. Musculoskeletal: No complaint of arthritis, unstable gait or arm/leg weakness. Psychiatric: No history of hallucinations or depression or anxiety. ROS Neurological: + headache on and off. No complaint of tinnitus. No complaint of decreased hearing. No complaint of diplopia. Feels vision is not as sharp- has an appointment No complaint of arm/leg numbness. No problem with limb coordination. No complaint of syncope, seizures or disorientation. Objective Physical Exam: General Exam PHYSICAL EXAMINATION: FINDINGS: Neurological: Higher integrative functions: Oriented to person, place & time Memory: 3/3I and 3/3 at 5 minutes Attention Span and Concentration: Good Language: Accurate naming of objects. Good comprehension Fund of Knowledge: Good 3rd,4th,6th CN: Pupils (=), round, react to light, full extraocular movements: 7th CN: Facial muscles symmetric and strong KPS: 90 KPS and ECOG Provider Data Form PHQ 2 and 9 Total Scores 10/17/2022 PHQ-2 Score 0 Labs: CBC Latest Ref Rng & Units 01/24/2019 WBC 3.70 - 11.00 k/uL 8.14 RBC 3.90 - 5.20 m/uL 4.99 HEMOGLOBIN 11.5 - 15.5 g/dL 14.1 HEMATOCRIT 36.0 - 46.0 % 43.5 MCV 80.0 - 100.0 fL 87.2 MCH 26.0 - 34.0 pG 28.3 MCHC 30.5 - 36.0 g/dL 32.4 RDW-CV 11.5 - 15.0 % 12.1 PLATELETS 150 - 400 k/uL 285 MPV 9.0 - 12.7 fL 8.6(L) BASO% % 0.2 ABS NEUT (ANC) 1.45 - 7.50 k/uL 5.09 ABS LYMPH 1.00 - 4.00 k/uL 2.12 ABS MONO <0.87 k/uL 0.72 ABS EOSIN <0.46 k/uL 0.19 ABS BASO <0.11 k/uL <0.03 DIFF TYPE - Auto Diff CMP Latest Ref Rng & Units 01/24/2019 SODIUM 136 - 144 mmol/L 141 POTASSIUM 3.7 - 5.1 mmol/L 4.4 CHLORIDE 97 - 105 mmol/L 102 CO2 22 - 30 mmol/L 27 GLUCOSE 74 - 99 mg/dL 94 BUN 7 - 21 mg/dL 17 CREATININE 0.58 - 0.96 mg/dL 0.92 EGFR-ALL OTHER RACES . >60 EGFR- - >60 PROTEIN, TOTAL 6.3 - 8.0 g/dL 7.1 ALBUMIN 3.9 - 4.9 g/dL 4.6 CALCIUM, TOTAL 8.5 - 10.2 mg/dL 9.8 BILIRUBIN, TOTAL 0.2 - 1.3 mg/dL 0.3 AST 13 - 35 U/L 16 ALT 7 - 38 U/L 16 ALKALINE PHOSPHATASE 34 - 123 U/L 60 Final Pathology: Specimen #: [id number]* Submitting Physician: DEBBIE ECHEVERRIA MD FINAL DIAGNOSIS Skin, left upper midline back, shave biopsy - Desmoplastic melanoma, see synoptic report. SDB/rw 11/09/2018 Imaging: MRI Report MRI BRAIN WO/W IVCON Exam End: 10/17/2022 11:20 AM (Final result) Narrative: * * *Final Report* * * DATE OF EXAM: Oct 17 2022 11:20AM [facility] 0295 - MRI BRAIN WO/W IVCON / PROCEDURE REASON: Benign neoplasm of meninges (HCC) * * * * Physician Interpretation * * * * EXAMINATION: MRI BRAIN WO/W IVCON HISTORY: history of desmoplastic melanoma T4aN0, with incidentally discovered subcentimeter L frontal meningioma noted on staging MRI of the br ain obtained 06/01/2021 presenting for further evaluation in the setting of on-going surveillance. TECHNIQUE: MRI brain without/with contrast including sagittal T1, axial T2, FLAIR, diffusion, stability weighted imaging, pre and post gadolinium coronal T1, and post gadolinium axial 3-D. MQ: [id number] Contrast: 20 mL Dotarem IV COMPARISON: MRI 02/23/2022 with earliest available 06/01/2021. RESULT: Coregistration software utilized for slice by slice comparison in the identical plane. Avidly enhancing dural based mass indenting the left middle frontal gyrus with subjacent hyperostosis now measures 8 mm in maximal axial dimension, previously 7 mm with a thickness of the enhancing component of 4 mm, previously 2 mm. Robust brain volume. Negative for restricted diffusion, hemorrhage, significant mass effect, extra-axial collection, and additional abnormal enhancement. The major intracranial vessels show signal characteristics typically associated with flow voids suggesting patency. Minimal left and mild right mastoid effusions. Unremarkable orbits, marrow signal, and soft tissues. New opacification of the right frontal sinus as well as mid to ventral right ethmoid air cells with air-fluid level in the right maxillary sinus. Impression: IMPRESSION: 1. Growth of subcentimeter meningioma. 2. New right-sided paranasal sinus disease configuration compatible with middle meatus obstruction with air-fluid level suggestive of acute/active sinusitis. Library Clerk: [facility] Transcribe Date/Time: Oct 17 2022 11:35A Dictated by : CHUCKY BRAY MD This examination was interpreted and the report reviewed and electronically signed by: CHUCKY BRAY MD on Oct 17 2022 11:45AM EST Assessment & Plan 47 y/o RHF een for discussion of GK for meningioma PMHx: History of desmoplastic melanoma T4aN0 Follows w Dr Echeverria and was having bad KENDRICK post covid Secodanry to the hx a brain MRI was ordered MRI 06 01 21 a subcentimeter L frontal meningioma noted on staging MR Had FU MRIs August 23 and 02 23 22 and more recently 10 17 22 On staging, she was found to have newly diagnosed (06/16) hemangioma of the liver. Saw Dr Licona 06 21 22: rec observation w FU imaging Saw Dr Licona 10 19 22: MRI brain on 10/17/2022 showed small interval growth of meningioma now measuring 8 mm previously 7 mm. c/w mild HAs Saw Dr Echeverria June 2022: Also follows w Derm Concerned about the growth and wants to have Gamma Knife Last Chemo: N/A Current Steroids dose: N/A Current AED Dose: N/A I reviewed the above hx in detail with Ben. She has a h/o desmoplastic melanoma and is followed by Oncology. She had a brain MRI showing what appears to be a LF meningioma w/o edema. She has been followed with Dr Licona and it has shown some growth and she wishes to have treatment. 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 After a discussion of the RBA she verbally consented. She does have claustrophobia and is not sure she can do a mask so we also discussed placing a frame. We will start w the mask and move to the frame if she can not tolerate. We discussed the masked based Gamma Knife procedure including the specific risks and benefits related to the procedure. Prior to the procedure a mask will be molded to the patient's face according tostandard protocol. The patient will also undergo a pre-frame MRI scan, a routine diagnostic CT where tumor contouring and treatment planning will be performed. The CT scan is necessary to correct forthe spatial distortion of the MRI. Both scans will be evaluated by a radiologist and the results will be discussed with the patient . The radiation oncologist reviews the plan and assigns a dose of radiation. The radiation physicist reviews the plan and confirms the machine is working properly. Prior to treatment, the patient will have a CBCT with the mask on the Iccheck24 GK machine and this image will be co-registered to the previously obtained diagnostic sequences and localization and targeting confirmed by radiation oncology and physics prior to treatment delivery. For fractionated masked based treatment, daily CBCT and target confirmation will be performed just prior to treatment and verified daily as above. The patient lies down on the treatment couch and the lesion(s) targeted with up to 192 beams of radiation to converging on the identified target. Just prior to treatment, the staff will leave the room and the patient will be monitored by 3 television cameras and 2 intercom systems. The patient willthen slide into the device up to their lower chest for a variable duration and number of times as re quired for the treatment plan and then exit. When the treatment is completed, the patient will be taken out of the treatment area and postoperative and follow-up instructions will be given prior to discharge as well as discharge steroids as required.. Ben understands that this treatment will not prevent new lesions. She also understands that thistreatment is local therapy and there are risks related to radiation of regional structures. Per the patient's request, we will proceed with scheduling the case and look at making the mask, completing the MRI and doing the procedure all on the same day. All questions and issues were addressed with the patient and they appears satisfied with the current plan. I spent a total of 50 minutes on the date of the service which included preparing to see the patient, [id number] patient care, completing clinical documentation, obtaining and/or reviewing separately obtained history, performing a medically appropriate examination, counseling and educating the pat ient/family/caregiver, ordering medications, tests, or procedures, communicating with other HCPs (not separately reported), independently interpreting results (not separately reported), communicatingresults to the patient/family/caregiver, and care coordination (not separately reported). Gurpreet Beckwith DO, PhD cc: Ben Licona- muna toro documented [facility] Evaluation note* Encounter Date Diagnosis Assessment Notes Treatment Notes Treatment Clinical Notes Oct, Screen for colon cancer (ICD-10 - Z12.11) [facility] Other 07-19-2023 NoteHNO ID: [id number] Author: Luis Licona MD Service: ? Author Type: Physician Type: Progress Notes Filed: 10/19/2022 8:38 PM Note Text: Radiation Oncology - Follow Up Note [facility] DIST[facility] VISIT This visit is a Virtual MyChart video visit encounter which required patient-provider interaction for the medical decision making as documented below. Persons Present: patient and patient's spouse/significant other Ben Cruz has consented to this distance health encounter. PATIENT NAME: Ben Cruz PATIENT DIAGNOSIS: 46-year-old female with a history of desmoplastic melanoma T4aN0, with incidentally discovered subcentimeter L frontal meningioma noted on staging MRI of the brain obtained 06/01/2021 presenting for further evaluation in the setting of on-going surveillance. INTERVAL HISTORY: Patient was seen on 03/01/2022 with MRI showing stable meningioma. At that time, 6 month follow up was recommended. MRI brain on 10/17/2022 showed small interval growth of meningioma now measuring 8 mm previously 7 mm. Today, patient is feeling fine. States she feels like she's had changes to her vision with respect to reading, she feels like these changes have been sudden in nature and are also intermittent. Patient otherwise feels fine and denies changes to her health. Denies headaches. RADIOLOGY/LABORATORY DATA: 10/17/2022 MRI Brain RESULT: Avidly enhancing dural based mass indenting the left middle frontal gyrus with subjacent hyperostosis now measures 8 mm in maximal axial dimension, previously 7 mm with a thickness of the enhancing component of 4 mm, previously 2 mm. IMPRESSION: 1. Growth of subcentimeter meningioma. 2. New right-sided paranasal sinus disease configuration compatible with middle meatus obstruction with air-fluid level suggestive of acute/active sinusitis. ALLERGIES No Known Allergies MEDICATIONS: meloxicam (MOBIC) 15 mg tablet inclisiran (LEQVIO) 284 mg/1.5 mL injection omeprazole (PRILOSEC) 20 mg capsule Take 20 mg by mouth once daily. REVIEW OF SYSTEMS: As stated in HPI Neuro detailed: Headache: none Pain interventions: None, none required Fatigue: mild Decreased visual acuity: mild Diplopia: none Visual Field Changes: No Tinnitus: none Hearing loss: none Dysphagia: No Decreased balance: none Arm/leg numbness: none Focal weakness: none Limb discoordination: none Disorientation: none Decreased concentration: none Memory changes: mild Word finding difficulty: none Dysarthria: none Seizures: none Syncope: none VIDEO PHYSICAL EXAMINATION: (performed via video enabled technology) GENERAL: alert and appropriate, in no distress, well-hydrated, well nourished, and happy, smiling, interactive SKIN: no rash noted HEAD: normocephalic, no abnormality or lesion noted EYES: visual acuity is grossly normal EARS: hearing grossly normal NOSE: external nose normal without rhinorrhea OROPHARYNX: moist mucus membranes NECK: full ROM, no cervical LNs noted RESPIRATORY: breathing non-labored CHEST: equal chest rise with normal respiratory effort EXTREMITIES: moving bilateral upper extremities well NEURO: Responds to commands appropriately Is patient on a clinical trial? NO ASSESSMENT/PLAN: Ms. Cruz is a 47yoF with a hx of desmoplastic melanoma with likely left frontal meningioma first noted on MRI 06/01/2021 with slight interval growth, now measuring 8 mm in largest dimension. Patient was previously seen in radiation clinic and was recommended for short course follow up followed by 6 month follow up with imaging to monitor growth. On latest MRI 10/17/2022, meningioma was 8 mm as compared to 02/22/2022 which was previously measuring 7 mm. Given small amount of growth and symptoms, treatment was discussed with patient. We discussed the general role of radiotherapy in the treatment of meningioma. We discussed the risks, benefits, alternatives, procedures, mechanics and personnel involved in treatment. We also discussed the possible acute and late side effects involved. GKBENIGN: Planned dose: 14 Gy / 1 fx Head frame will be used. Radiosurgery will be done in a single fraction using the Gamma Knife Icon system, which uses up to 192 beams of radiation. A head CT and brain MRI will be performed the day of the procedure. The images will be co registered for target contouring and treatment planning. The CT scan is necessary to correct for the spatial distortion of the MRI. Both scans will be evaluated by a radiologist and the results will be discussed with the patient. Signed by: Savannah Walton MD Radiation Oncology Resident, PGY-2 STAFF ADDENDUM I saw and evaluated the patient. I personally obtained the beckwith and critical portions of the history and physical exam. I reviewed the resident's documentation and discussed the patient with the resident. I agree with the resident's medical decisio (more content not included)... [facility]07-19-2023 History of Present illness Narrative* Luis Licona MD - 10/19/2022 4:30 PM EDT Radiation Oncology - Follow Up Note [facility] DISTANCE HEALTH VISIT This visit is a Virtual MyChart video visit encounter which required patient- provider interaction for the medical decision making as documented below. Persons Present: patient and patient's spouse/significant other Ben Cruz has consented to this distance health encounter. PATIENT NAME: Ben Cruz PATIENT DIAGNOSIS: 46-year-old female with a history of desmoplastic melanoma T4aN0, with incidentally discovered subcentimeter L frontal meningioma noted on staging MRI of the brain obtained 06/01/2021 presenting for further evaluation in the setting of on-going surveillance. INTERVAL HISTORY: Patient was seen on 03/01/2022 with MRI showing stable meningioma. At that time, 6 month follow up was recommended. MRI brain on 10/17/2022 showed small interval growth of meningiomanow measuring 8 mm previously 7 mm. Today, patient is feeling fine. States she feels like she's had changes to her vision with respect to reading, she feels like these changes have been sudden in nature and are also intermittent. Patient otherwise feels fine and denies changes to her health. Denies headaches. RADIOLOGY/LABORATORY DATA: 10/17/2022 MRI Brain RESULT: Avidly enhancing dural based mass indenting the left middle frontal gyrus with subjacent hyperostosis now measures 8 mm in maximal axial dimension, previously 7 mm with a thickness of the enhancing component of 4 mm, previously 2 mm. IMPRESSION: 1. Growth of subcentimeter meningioma. 2. New right-sided paranasal sinus disease configuration compatible with middle meatus obstruction with air-fluid level suggestive of acute/active sinusitis. ALLERGIES No Known Allergies MEDICATIONS: meloxicam (MOBIC) 15 mg tablet inclisiran (LEQVIO) 284 mg/1.5 mL injection omeprazole (PRILOSEC) 20 mg capsule Take 20 mg by mouth once daily. REVIEW OF SYSTEMS: As stated in HPI Neuro detailed: Headache: none Pain interventions: None, none required Fatigue: mild Decreased visual acuity: mild Diplopia: none Visual Field Changes: No Tinnitus: none Hearing loss: none Dysphagia: No Decreased balance: none Arm/leg numbness: none Focal weakness: none Limb discoordination: none Disorientation: none Decreased concentration: none Memory changes: mild Word finding difficulty: none Dysarthria: none Seizures: none Syncope: none VIDEO PHYSICAL EXAMINATION: (performed via video enabled technology) GENERAL: alert and appropriate, in no distress, well-hydrated, well nourished, and happy, smiling, interactive SKIN: no rash noted HEAD: normocephalic, no abnormality or lesion noted EYES: visual acuity is grossly normal EARS: hearing grossly normal NOSE: external nose normal without rhinorrhea OROPHARYNX: moist mucus membranes NECK: full ROM, no cervical LNs noted RESPIRATORY: breathing non-labored CHEST: equal chest rise with normal respiratory effort EXTREMITIES: moving bilateral upper extremities well NEURO: Responds to commands appropriately Is patient on a clinical trial? NO ASSESSMENT/PLAN: Ms. Cruz is a 47yoF with a hx of desmoplastic melanoma with likely left frontal meningioma first noted on MRI 06/01/2021 with slight interval growth, now measuring 8 mm in largest dimension. Patient was previously seen in radiation clinic and was recommended for short course follow up followed by 6 month follow up with imaging to monitor growth. On latest MRI 10/17/2022, meningioma was 8 mm as compared to 02/22/2022 which was previously measuring 7 mm. Given small amount of growth and symptoms, treatment was discussed with patient. We discussed the general role of radiotherapy in the treatment of meningioma. We discussed the risks, benefits, alternatives, procedures, mechanics and personnel involved in treatment. We also discussed the possible acute and late side effects involved. GKBENIGN: Planned dose: 14 Gy / 1 fx Head frame will be used. Radiosurgery will be done in a single fraction using the Gamma Knife Icon system, which uses up to 192 beams of radiation. A head CT and brain MRI will be performed the day of the procedure. The images will be co registered for target contouring and treatment planning. The CT scan is necessary to correct for the spatial distortion of the MRI. Both scans will be evaluated by a radiologist and the results will be discussed with the patient. Signed by: Savannah Walton MD Radiation Oncology Resident, PGY-2 STAFF ADDENDUM I saw and evaluated the patient. I personally obtained the beckwith and critical portions of the historyand physical exam. I reviewed the resident's documentation and discussed the patient with the resident. I agree with the resident's medical decision making as documented in the resident's note. 47yoF with a hx of desmoplastic melanoma with likely left frontal meningioma first noted on MRI 06/01/2021 with slight interval growth, now measuring 8 mm in largest dimension. She had seen Trista Bonilla CNP regarding MRI results. When given options for continued observation versus treatment, she favored treatment. Given small size, she is a good candidate for GKRS. R/B/A/P/C of GKRS were discussed. She is interested in proceeding. I will get her set up to see a GK neurosurgeon/neurologist. Luis Licona MD cc: Debbie Echeverria [id number] [address] documented in this [facility]07-18-[facility]23 NoteHNO ID: [id number] Author: Trista Bonilla APRN.CNP Service: ? Author Type: Nurse Practitioner Type: Progress Notes Filed: 10/19/2022 12:11 AM Note Text: Elements of this note, including HPI, ROS, Physical Exam, Assessment and Plan were copied and pasted from 02/28/22 encounter with me. Updates have been made where noted and reflect current exam and medical decision making from October 18, 2022. Trista Bonilla APRN.CNP. [facility] VISIT This visit is a Virtual MyChart video visit encounter which required patient-provider interaction for the medical decision making as documented below. Persons Present: patient Ben Cruz has consented to this distance health encounter. Total Time Spent: more than 20 minutes [id number] with the patient and over half the time was devoted to counseling and/or coordination of care. HISTORY REVIEWED (electronic chart updated): - medical history - medications - allergies PATIENT NAME: Ben Cruz PATIENT DIAGNOSIS: 47-year-old female with a history of desmoplastic melanoma T4aN0, with incidentally discovered subcentimeter L frontal meningioma noted on staging MRI of the brain obtained 06/01/2021 presenting for further evaluation in the setting of on-going surveillance. INTERVAL HISTORY: Ben Cruz returns today for follow up and MRI for review. She was last seen in follow up on 02/28/22, at which time she was doing well and MRI reported stable. At this time follow up in 6 months was recommended. In the interim, she has followed with medical oncology. She remains on surveillance for her desmoplastic melanoma. Today she is doing well overall. She recently experienced allergy induced sinus congestion with associated headaches, dizziness, and ears feeling plugged. Overall symptoms are improving. She underwent left plantar fasciotomy with left tailor's bunionectomy at OSH last month. She is wearing a surgical boot. She has been experiencing some difficulty with reading at times. Changes affecting bilateral eyes and possibly age related. She was waiting for the MRI to schedule follow up with ophthalmology. She remains independent in activities of daily living. She is accompanied by in VV today. Data Reviewed: MRI Report MRI BRAIN WO/W IVCON Exam End: 10/17/2022 11:20 AM (Final result) Narrative: * * *Final Report* * * DATE OF EXAM: Oct 17 2022 11:20AM [facility] 0295 - MRI BRAIN WO/W IVCON / PROCEDURE REASON: Benign neoplasm of meninges (HCC) * * * * Physician Interpretation * * * * EXAMINATION: MRI BRAIN WO/W IVCON HISTORY: history of desmoplastic melanoma T4aN0, with incidentally discovered subcentimeter L frontal meningioma noted on staging MRI of the br ain obtained 06/01/2021 presenting for further evaluation in the setting of on-going surveillance. TECHNIQUE: MRI brain without/with contrast including sagittal T1, axial T2, FLAIR, diffusion, stability weighted imaging, pre and post gadolinium coronal T1, and post gadolinium axial 3-D. MQ: MRBWOW_2 Contrast: 20 mL Dotarem IV COMPARISON: MRI 02/23/2022 with earliest available 06/01/2021. RESULT: Coregistration software utilized for slice by slice comparison in the identical plane. Avidly enhancing dural based mass indenting the left middle frontal gyrus with subjacent hyperostosis now measures 8 mm in maximal axial dimension, previously 7 mm with a thickness of the enhancing component of 4 mm, previously 2 mm. Robust brain volume. Negative for restricted diffusion, hemorrhage, significant mass effect, extra-axial collection, and additional abnormal enhancement. The major intracranial vessels show signal characteristics typically associated with flow voids suggesting patency. Minimal left and mild right mastoid effusions. Unremarkable orbits, marrow signal, and soft tissues. New opacification of the right frontal sinus as well as mid to ventral right ethmoid air cells with air-fluid level in the right maxillary sinus. Impression: IMPRESSION: 1. Growth of subcentimeter meningioma. 2. New right-sided paranasal sinus disease configuration compatible with middle meatus obstruction with air-fluid level suggestive of acute/active sinusitis. Library Clerk: [facility] Transcribe Date/Time: Oct 17 2022 11:35A Dictated by : CHUCKY BRAY MD This examination was interpreted and the report reviewed and electronically signed by: CHUCKY BRAY MD on Oct 17 2022 11:45AM EST REVIEW OF SYSTEMS: Otherwise negative, except as noted above. Video Exam (Examination performed via Video enabled technology) General appearance: Alert, oriented, pleasant, in NAD :Yes Ill appearing :No Lethargic appearing :No Respiratory distress :No Coughing noted :No Audible wheezing noted :No Neuro: Speech fluent. EOM intact. Face symmetric. Tongue midline. Shoulder shrug intact bilaterally. Hearing intact. Moves all extremities purp (more content not included)...[facility]07-18-2023 History of Present illness Narrative* Trista Bonilla APRN.SHERITA - 10/18/2022 10:30 AM EDT Elements of this note, including HPI, ROS, Physical Exam, Assessment and Plan were copied and pasted from 02/28/22 encounter with me. Updates have been made where noted and reflect current exam and medical decision making from October 18, 2022. Trista Bonilla APRN.SHERITA. [facility] DISTANCE HEALTH VISIT This visit is a Virtual MyChart video visit encounter which required patient- provider interaction for the medical decision making as documented below. Persons Present: patient Ben Cruz has consented to this distance health encounter. Total Time Spent: more than 20 minutes [id number] with the patient and over half the time was devoted to counseling and/or coordination of care. HISTORY REVIEWED (electronic chart updated): - medical history - medications - allergies PATIENT NAME: Ben Cruz PATIENT DIAGNOSIS: 47-year-old female with a history of desmoplastic melanoma T4aN0, with incidentally discovered subcentimeter L frontal meningioma noted on staging MRI of the brain obtained 06/01/2021 presenting for further evaluation in the setting of on-going surveillance. INTERVAL HISTORY: Ben Cruz returns today for follow up and MRI for review. She was last seen in follow up on 02/28/22, at which time she was doing well and MRI reported stable. At this time follow up in 6 months was recommended. In the interim, she has followed with medical oncology. She remains on surveillance for her desmoplastic melanoma. Today she is doing well overall. She recently experienced allergy induced sinus congestion with associated headaches, dizziness, and ears feeling plugged. Overall symptoms are improving. She underwent left plantar fasciotomy with left tailor's bunionectomy at OSH last month. She is wearing a surgical boot. She has been experiencing some difficulty with reading at times. Changes affecting bilateral eyes and possibly age related. She was waiting for the MRI to schedule follow up with ophthalmology. She remains independent in activities of daily living. She is accompanied by in VV today. Data Reviewed: MRI Report MRI BRAIN WO/W IVCON Exam End: 10/17/2022 11:20 AM (Final result) Narrative: * * *Final Report* * * DATE OF EXAM: Oct 17 2022 11:20AM [facility] - MRI BRAIN WO/W IVCON / PROCEDURE REASON: Benign neoplasm of meninges (HCC) * * * * Physician Interpretation * * * * EXAMINATION: MRI BRAIN WO/W IVCON HISTORY: history of desmoplastic melanoma T4aN0, with incidentally discovered subcentimeter L frontal meningioma noted on staging MRI of the br ain obtained 06/01/2021 presenting for further evaluation in the setting of on-going surveillance. TECHNIQUE: MRI brain without/with contrast including sagittal T1, axial T2, FLAIR, diffusion, stability weighted imaging, pre and post gadolinium coronal T1, and post gadolinium axial 3-D. MQ: MRBWOW_2 Contrast: 20 mL Dotarem IV COMPARISON: MRI 02/23/2022 with earliest available 06/01/2021. RESULT: Coregistration software utilized for slice by slice comparison in the identical plane. Avidly enhancing dural based mass indenting the left middle frontal gyrus with subjacent hyperostosis now measures 8 mm in maximal axial dimension, previously 7 mm with a thickness of the enhancing component of 4 mm, previously 2 mm. Robust brain volume. Negative for restricted diffusion, hemorrhage, significant mass effect, extra-axial collection, and additional abnormal enhancement. The major intracranial vessels show signal characteristics typically associated with flow voids suggesting patency. Minimal left and mild right mastoid effusions. Unremarkable orbits, marrow signal, and soft tissues. New opacification of the right frontal sinus as well as mid to ventral right ethmoid air cells with air-fluid level in the right maxillary sinus. Impression: IMPRESSION: 1. Growth of subcentimeter meningioma. 2. New right-sided paranasal sinus disease configuration compatible with middle meatus obstruction with air-fluid level suggestive of acute/active sinusitis. Library Clerk: [facility] Transcribe Date/Time: Oct 17 2022 11:35A Dictated by : CHUCKY BRAY MD This examination was interpreted and the report reviewed and electronically signed by: CHUCKY BRAY MD on Oct 17 2022 11:45AM EST REVIEW OF SYSTEMS: Otherwise negative, except as noted above. Video Exam (Examination performed via Video enabled technology) General appearance: Alert, oriented, pleasant, in NAD :Yes Ill appearing :No Lethargic appearing :No Respiratory distress :No Coughing noted :No Audible wheezing noted :No Neuro: Speech fluent. EOM intact. Face symmetric. Tongue midline. Shoulder shrug intact bilaterally. Hearing intact. Moves all extremities purposefully and against gravity. FTN and CRISTINE intact. No pronator drift. Antalgic gait, slow and cautious with surgical boot on Left. ASSESSMENT/ PLAN: 47-year-old female with a history of desmoplastic melanoma T4aN0, with incidentally discovered subcentimeter L frontal meningioma noted on staging MRI of the brain obtained 06/01/2021resenting for further evaluation in the setting of on-going surveillance. - Clinically stable. - MRI reviewed with Dr. Licona and reports 1 mm growth of subcentimeter left frontal meningioma, and new right sided paranasal sinus disease. - Per Dr. Licona ok to continue to observe vs treat now. - Patient would like to discuss treatment now. - Advised to follow up with ophthalmology for evaluation of difficulty reading bilaterally. Given age and bilateral change likely due to presbyopia. - Advised to follow up with PCP if sinus congestion worsens. - She will continue to follow with medical oncology and dermatology for optimal surveillance of herdesmoplastic melanoma. - She has our contact information and was advised to call with any questions or concerns. - She will be scheduled for follow up with Dr. Licona to discuss treatment options, per patient request. Trista Bonilla APRN.SHERITA Cc: Dr. Luis Echeverria documented in this encounterRiverview Health Institute07-17-2023 NoteHNO ID: [id number] Author: Nidia Morelos RN Service: Nursing Author Type: Registered Nurse Type: Progress Notes Filed: 10/17/2022 10:44 AM Note Text: Radiology Service Progress Note DATE OF SERVICE: October 17, 2022 TIME: 10:40 AM PATIENT WEIGHT: 209LBS PATIENT IDENTITY VERIFICATION COMPLETED USING TWO (2) STANDARD IDENTIFIERS: Name and Date of confirmed by patient verbally. FALL SCREENING: Has the patient had 2 falls in the last year or 1 fall with injury or currently using an Ambulatory Assistive Device (Walker, Cane, Wheelchair, Crutches, etc.)? No PATIENT GENDER DATA: Female. status: : No status: NO. ALLERGIES: Reviewed and unchanged CONTRAST ALLERGY: No EXAM: MRI - CONTRAST TYPE: GROUP II IV SITE: Ambulatory: A peripheral IV was started in the Right antecubital site with a Angio cath: 22 gauge. and A Saline lock was inserted per protocol IV SITE APPEARANCE: Clean,Dry and Intact SIGNATURE: Nidia Morelos RN PATIENT NAME: Ben Cruz DATE: October 17, 2022 TIME: 10:40 [facility]07-17-2023 NoteHNO ID: [id number] Author: Barbara Gaxiola swimming pool service technician Service: Radiology Author Type: Overhead Distribution Engineer Type: Progress Notes Filed: 10/17/2022 10:54 AM Note Text: Radiology Service Progress Note PATIENT NAME: Ben Cruz DATE OF SERVICE: October 17, 2022 TIME: 10:53 AM PATIENT IDENTITY VERIFICATION COMPLETED USING TWO (2) IDENTIFIERS: Name and Date of confirmed by patient verbally. FALL SCREENING: Has the patient had 2 falls in the last year or 1 fall with injury or currently using an Ambulatory Assistive Device (Walker, Cane, Wheelchair, Crutches, etc.)? No PATIENT GENDER DATA: Female. status: : No status: NO. PATIENT RELEVANT IMPLANT DATA REVIEWED: Yes RADIOLOGY DEPARTMENT: MR; Exam(s) Completed: Head: Routine Brain PERIPHERAL IV DATA: Site assessment: Clean,Dry and Intact, Site disposition Discontinued SIGNED BY: Barbara Gaxiola swimming pool service technician October 17, 2022 10:53 [facility]07-17-2023 History of Present illness Narrative* Nidia Morelos RN - 10/17/2022 10:40 AM EDT Radiology Service Progress Note DATE OF SERVICE: October 17, 2022 TIME: 10:40 AM PATIENT WEIGHT: 209LBS PATIENT IDENTITY VERIFICATION COMPLETED USING TWO (2) STANDARD IDENTIFIERS: Name and Date of confirmed by patient verbally. FALL SCREENING: Has the patient had 2 falls in the last year or 1 fall with injury or currently using an Ambulatory Assistive Device (Walker, Cane, Wheelchair, Crutches, etc.)? No PATIENT GENDER DATA: Female. status: : No status: NO. ALLERGIES: Reviewed and unchanged CONTRAST ALLERGY: No EXAM: MRI - CONTRAST TYPE: GROUP II IV SITE: Ambulatory: A peripheral IV was started in the Right antecubital site with a Angio cath: 22 gauge. and A Saline lock was inserted per protocol IV SITE APPEARANCE: Clean,Dry and Intact SIGNATURE: Nidia Morelos RN PATIENT NAME: Ben Cruz DATE: October 17, 2022 TIME: 10:40 AM * Barbara Gaxiola swimming pool service technician - 10/17/2022 10:40 AM EDT Radiology Service Progress Note PATIENT NAME: Ben Cruz DATE OF SERVICE: October 17, 2022 TIME: 10:53 AM PATIENT IDENTITY VERIFICATION COMPLETED USING TWO (2) IDENTIFIERS: Name and Date of confirmedby patient verbally. FALL SCREENING: Has the patient had 2 falls in the last year or 1 fall with injury or currently using an Ambulatory Assistive Device (Walker, Cane, Wheelchair, Crutches, etc.)? No PATIENT GENDER DATA: Female. status: : No status: NO. PATIENT RELEVANT IMPLANT DATA REVIEWED: Yes RADIOLOGY DEPARTMENT: MR; Exam(s) Completed: Head: Routine Brain PERIPHERAL IV DATA: Site assessment: Clean,Dry and Intact, Site disposition Discontinued SIGNED BY: MANISH Hubbard October 17, 2022 10:53 AM documented in this encounterRiverview Health Institute06-21-2023 Evaluation note* Encounter Date Diagnosis Assessment Notes Treatment Notes Treatment Clinical Notes Sep, Preoperative examination (ICD-10 - Z01.818) Pt is in good health and is able to proceed with scheduled foot surgery. Sep, Plantar fasciitis (ICD-10 - M72.2) Sep, Mixed hyperlipidemia (ICD-10 - E78.2) Will obtain her labs and call to discuss Sep, Other obesity due to excess calories (ICD-10 - E66.09) Sep, Body mass index [BMI ] 36.0-36.9, adult (ICD-10 - Z68.36) Will research the berberine and get back to patient. [facility] Other 05-31-2023 Miscellaneous Notes* Telephone Encounter - Trista Bonilla APRN.CNP - 08/31/2022 4:35 PM EDT Ativan sent to preferred pharmacy per patient request prior to MRI. PDMP website checked and validated. All prescriptions have been APPROPRIATELY filled. No suspiciousactivity was identified. 08/31/2022 by Trista Bonilla APRN.SHERITA * Telephone Encounter - Adriana Brown - 08/31/2022 4:10 PM EDT Patient called in to ask for a prescription of Atavan sent to her local [facility] prior to her scheduled MRI on 09/05. Prescription should be sent to the [facility] in [facility]. [facility] [phone] [place] [address] documented in this encounterRiverview Health Institute03-21-2023 NoteHNO ID: [id number] Author: Debbie Echeverria MD Service: ? Author Type: Physician Type: Progress Notes Filed: 06/21/2022 11:09 AM Note Text: June 21, 2022 DXN: Resected T4aN0 desmoplastic melanoma. The lesion was about 4.5mm located on her back with 2 negative SLNs (left axilla). There was no reported neurtropism and only one mitotic figure. Margins were negative. Declined an adjuvant trial in [place]. Baseline imaging today is negative CC: Melanoma follow up HPI: Doing well. No new symptoms. Derm follow up has been clear. 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 She has a meningioma under survielllance with RadOnc. F/u with Derm. RTC in 6 months Elements of this note, including HPI, ROS, Physical Exam, Assessment and Plan were copied and pasted from my 9.20.22 distance encounter. Updates have been made where noted and reflect current exam and medical decision making from June 21, 2022 I spent 25 minutes in the visit, with more than 50% of the total ydrk-oz-qugx time of the visit in counseling / coordination of care. Debbie Echeverria, [facility]03-21-2023 History of Present illness Narrative* Debbie Echeverria MD - 06/21/2022 11:08 AM EDT June 21, 2022 DXN: Resected T4aN0 desmoplastic melanoma. The lesion was about 4.5mm located on her back with 2 negative SLNs (left axilla). There was no reported neurtropism and only one mitotic figure. Margins were negative. Declined an adjuvant trial in [place]. Baseline imaging today is negative CC: Melanoma follow up HPI: Doing well. No new symptoms. Derm follow up has been clear. 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 She has a meningioma under survielllance with RadOnc. F/u with Derm. RTC in 6 months Elements of this note, including HPI, ROS, Physical Exam, Assessment and Plan were copied and pasted from my 12.21.21 distance encounter. Updates have been made where noted and reflect current exam and medical decision making from June 21, 2022 I spent 25 minutes in the visit, with more than 50% of the total [id number]-dc-[id number] time of the visit in counseling / coordination of care. Debbie Echeverria MD documented in this encounterRiverview Health Institute03-21-2023 Nurse Note* Vanessa Giang LPN - 06/21/2022 10:29 AM EDT Additional intake questions: Has the patient had fever, nausea, vomiting, diarrhea, constipation, fatigue for > 1 week? Yes, fatigue and Provider Notified Does the patient have a decreased appetite? No Does patient want to see a Solutions Architect? No (yes to any of above refer patient to schedulers for dietitian appointment) ) Does patient have any new or increased numbness or tingling of extremities? No Is patient interested in fertility information? NA Does patient need any prescription refills? No Does patient have an advanced directive in place? No, Patient refused referral to Social Work or Resource Center documented in this encounterRiverview Health Institute11-28-2022 NoteHNO ID: [id number] Author: Trista Bonilla APRN.AGRONOMY RESEARCH MANAGER Service: ? Author Type: Nurse Practitioner Type: Progress Notes Filed: 03/01/2022 9:23 AM Note Text: [facility] DISTANCE HEALTH VISIT This visit is a Virtual MyChart video visit encounter which required patient-provider interaction for the medical decision making as documented below. Persons Present: patient Ben Cruz has consented to this distance health encounter. Total Time Spent: more than 20 minutes [id number] with the patient and over half the time was devoted to counseling and/or coordination of care. HISTORY REVIEWED (electronic chart updated): - medical history - medications - allergies PATIENT NAME: Ben Cruz PATIENT DIAGNOSIS: 46-year-old female with a history of desmoplastic melanoma T4aN0, with incidentally discovered subcentimeter L frontal meningioma noted on staging MRI of the brain obtained 06/01/2021 presenting for further evaluation in the setting of on-going surveillance. INTERVAL HISTORY: Ben Cruz returns today for follow up and MRI for review. She was last seen in follow up on 08/23/21, at which time she reported feeling foggy, frontal/occipital headaches, and loss of smell since COVID, and MRI was stable. At this time, follow up in 6 months was recommended. In the interim, she has followed with medical oncology. Last CT Chest on 05/13/21 was negative for mets and dedicated MRI liver was suggested for new subtle 4 cm high attenuation area in R hepatic lobe. MRI liver on 06/16/21 negative for mets and positive for hepatic steatosis. Today she presents unaccompanied in good spirits. She is doing well overall. She denies any new neurological complaints. She underwent Left shoulder repair since we last saw her, and feels that her numbness/tingling in BUE is improved. She states she had COVID in March 2021, and headaches, smell, and taste are just now improving over last 1-2 months. Headaches are typically retro orbital, frontal, and occasionally occipital. She states she has not had a bad headache in sometime. She reports ongoing eye redness, irritation, photophobia, and pressure since COVID last year. Photophobia is exacerbated by fluorescent lighting (e.g., watching son play basketball). She is due to follow up with PCP and ophthalmology soon. 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 She denies focal weakness, dizziness, gait instability, or seizures. Data Reviewed: MRI Report MRI BRAIN WO/W IVCON Exam End: 02/23/2022 11:31 AM (Final result) Narrative: * * *Final Report* * * DATE OF EXAM: Feb 23 2022 11:31AM [facility] 0295 - MRI BRAIN WO/W IVCON / PROCEDURE REASON: Benign neoplasm of meninges (HCC) * * * * Physician Interpretation * * * * EXAMINATION: MRI BRAIN WO/W IVCON HISTORY: Benign neoplasm of meninges (HCC). TECHNIQUE: Routine brain MRI protocol without and with contrast including diffusion and gradient echo images. MQ: MRBWOW_2 Contrast: 20 mL Dotarem IV COMPARISON: MRI brain dated 08/23/2021. RESULT: There is a stable small extra-axial enhancing lesion with associated calcification/adjacent calvarial hyperostosis at the left high frontal convexity. This again measures up to 8 mm in maximal dimension. No new areas of abnormal enhancement have developed in the interval. No significant ventricular enlargement or midline shift. No evidence of restricted diffusion. No evidence of acute intracranial hemorrhage on the sequences obtained. Mild mucosal thickening involves the ethmoid and right maxillary sinuses. Impression: IMPRESSION: Stable subcentimeter extra-axial lesion, likely meningioma, at the left high frontal convexity. Otherwise, unremarkable MRI brain with and without contrast. Library Clerk: [facility] Transcribe Date/Time: Feb 23 2022 11:50A Dictated by : CARLITOS MCGUIRE MD This examination was interpreted and the report reviewed and electronically signed by: CARLITOS MCGUIRE MD on Feb 23 2022 11:55AM EST MRI LIVER WO/W IVCON 06/01/21 IMPRESSION: No abdominal metastasis. Hepatic steatosis and benign hemangioma, but no liver metastasis. CT CHEST W IVCON 05/13/21 IMPRESSION: 1. No evidence of intrathoracic metastases. 2. More conspicuous diffuse thickening of esophageal wall suggestive of an esophagitis. If clinically indicated, consider direct visualization. 3. Persistent diffuse hepatic fatty infiltration. New subtle 4 cm high attenuation area in the right hepatic lobe most likely an area of focal fatty sparing or perfusion anomaly. Consider confirmation via interval follow-up or via MRI. REVIEW OF SYSTEMS: As above. Video Exam (Examination performed via Video enabled technology) General appearance: Alert, oriented, pleasant, in NAD :Yes Ill appearing :No Lethargic appearing :No Respiratory distress :No Coughing noted :No A (more content not included)...[facility]11-28-2022 History of Present illness Narrative* Trista Bonilla APRN.[facility] - 02/28/2022 10:30 AM EST [facility] DISTANCE HEALTH VISIT [facility] which required patient- provider interaction for the medical decision making as documented below. Persons Present: patient Ben Cruz has consented to this distance health encounter. Total Time Spent: more than 20 minutes [id number] with the patient and over half the time was devoted to counseling and/or coordination of care. HISTORY REVIEWED (electronic chart updated): - medical history - medications - allergies PATIENT NAME: Ben Cruz PATIENT DIAGNOSIS: 46-year-old female with a history of desmoplastic melanoma T4aN0, with incidentally discovered subcentimeter L frontal meningioma noted on staging MRI of the brain obtained 06/01/2021 presenting for further evaluation in the setting of on-going surveillance. INTERVAL HISTORY: Ben Cruz returns today for follow up and MRI for review. She was last seen in follow up on 08/23/21, at which time she reported feeling foggy, frontal/occipital headaches, and loss of smell since COVID, and MRI was stable. At this time, follow up in 6 months was recommended. In the interim, she has followed with medical oncology. Last CT Chest on 05/13/21 was negative for mets and dedicated MRI liver was suggested for new subtle 4 cm high attenuation area in R hepatic lobe.MRI liver on 06/16/21 negative for mets and positive for hepatic steatosis. Today she presents unaccompanied in good spirits. She is doing well overall. She denies any new neurological complaints. She underwent Left shoulder repair since we last saw her, and feels that her numbness/tingling in BUE is improved. She states she had COVID in March 2021, and headaches, smell, and taste are just now improving over last 1-2 months. Headaches are typically retro orbital, frontal, and occasionally occipital. She states she has not had a bad headache in sometime. She reports ongoing eye redness, irritation, photophobia, and pressure since COVID last year. Photophobia is exacerbated by fluorescent lighting (e.g., watching son play basketball). She is due to follow up with PCP and ophthalmology soon. 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 She denies focal weakness, dizziness, gait instability, or seizures. Data Reviewed: MRI Report MRI BRAIN WO/W IVCON Exam End: 02/23/2022 11:31 AM (Final result) Narrative: * * *Final Report* * * DATE OF EXAM: Feb 23 2022 11:31AM [facility] [id number] - MRI BRAIN WO/W IVCON / PROCEDURE REASON: Benign neoplasm of meninges (HCC) * * * * Physician Interpretation * * * * EXAMINATION: MRI BRAIN WO/W IVCON HISTORY: Benign neoplasm of meninges (HCC). TECHNIQUE: Routine brain MRI protocol without and with contrast including diffusion and gradient echo images. MQ: [id number] Contrast: 20 mL Dotarem IV COMPARISON: MRI brain dated 08/23/2021. RESULT: There is a stable small extra-axial enhancing lesion with associated calcification/adjacent calvarial hyperostosis at the left high frontal convexity. This again measures up to 8 mm in maximal dimension. No new areas of abnormal enhancement have developed in the interval. No significant ventricular enlargement or midline shift. No evidence of restricted diffusion. No evidence of acute intracranial hemorrhage on the sequences obtained. Mild mucosal thickening involves the ethmoid and right maxillary sinuses. Impression: IMPRESSION: Stable subcentimeter extra-axial lesion, likely meningioma, at the left high frontal convexity. Otherwise, unremarkable MRI brain with and without contrast. Library Clerk: TORI Transcribe Date/Time: Feb 23 2022 11:50A Dictated by : CARLITOS MCGUIRE MD This examination was interpreted and the report reviewed and electronically signed by: CARLITOS MCGUIRE MD on Feb 23 2022 11:55AM EST MRI LIVER WO/W IVCON 06/01/21 IMPRESSION: No abdominal metastasis. Hepatic steatosis and benign hemangioma, but no liver metastasis. CT CHEST W IVCON 05/13/21 IMPRESSION: 1. No evidence of intrathoracic metastases. 2. More conspicuous diffuse thickening of esophageal wall suggestive of an esophagitis. If clinically indicated, consider direct visualization. 3. Persistent diffuse hepatic fatty infiltration. New subtle 4 cm high attenuation area in the right hepatic lobe most likely an area of focal fatty sparing or perfusion anomaly. Consider confirmation via interval follow-up or via MRI. REVIEW OF SYSTEMS: As above. Video Exam (Examination performed via Video enabled technology) General appearance: Alert, oriented, pleasant, in NAD :Yes Ill appearing :No Lethargic appearing :No Respiratory distress :No Coughing noted :No Audible wheezing noted :No Neuro: Speech fluent. CN II-XII grossly intact. Moves all extremities purposefully and against gravity. FTN and CRISTINE intact. No pronator drift. Normal gait. ASSESSMENT/ PLAN: 46-year-old female with a history of desmoplastic melanoma T4aN0, with incidentally discovered subcentimeter L frontal meningioma noted on staging MRI of the brain obtained 06/01/2021resenting for further evaluation in the setting of on-going surveillance. - Clinically stable. - MRI reviewed with patient and reports stable subcentimeter extra-axial lesion, likely meningioma,at left high frontal convexity, and otherwise unremarkable MRI brain. - She denies any new neurological complaints. - She will continue to follow with medical oncology for optimal surveillance of her systemic disease. - Advised to follow up with PCP and ophthalmology regarding bilateral eye irritation over last year. - Red flag symptoms requiring prompt attention discussed with patient. - She has our contact information and was advised to call with any questions or concerns. - She will follow up in 6 months with repeat MRI brain, or sooner for worsening signs or symptoms. She will continue to get MRI at [facility] and present in VV follow up. Trista Bonilla APRN.AGRONOMY RESEARCH MANAGER Cc: Dr. Luis Echeverria documented in this encounterRiverview Health Institute11-23-2022 NoteHNO ID: [id number] Author: MANISH Hubbard Service: Radiology Author Type: Overhead Distribution Engineer Type: Progress Notes Filed: 02/23/2022 11:00 AM Note Text: Radiology Service Progress Note PATIENT NAME: Ben Cruz DATE OF SERVICE: February 23, 2022 TIME: 10:57 AM PATIENT IDENTITY VERIFICATION COMPLETED USING TWO (2) IDENTIFIERS: Name and Date of confirmed by patient verbally. FALL SCREENING: Has the patient had 2 falls in the last year or 1 fall with injury or currently using an Ambulatory Assistive Device (Walker, Cane, Wheelchair, Crutches, etc.)? No PATIENT GENDER DATA: Female. status: : No status: NO. PATIENT RELEVANT IMPLANT DATA REVIEWED: Yes RADIOLOGY DEPARTMENT: MR; Exam(s) Completed: Head: Routine Brain PERIPHERAL IV DATA: Site assessment: Clean,Dry and Intact, Site disposition Discontinued SIGNED BY: MANISH Hubbard February 23, 2022 10:57 [facility]11-23-2022 NoteHNO ID: [id number] Author: Nidia Morelos RN Service: Nursing Author Type: Registered Nurse Type: Progress Notes Filed: 02/23/2022 10:36 AM Note Text: Radiology Service Progress Note DATE OF SERVICE: February 23, 2022 TIME: 10:33 AM PATIENT WEIGHT: 225LBS PATIENT IDENTITY VERIFICATION COMPLETED USING TWO (2) STANDARD IDENTIFIERS: Name and Date of confirmed by patient verbally. FALL SCREENING: Has the patient had 2 falls in the last year or 1 fall with injury or currently using an Ambulatory Assistive Device (Walker, Cane, Wheelchair, Crutches, etc.)? No PATIENT GENDER DATA: Female. status: : No status: NO. ALLERGIES: Reviewed and unchanged CONTRAST ALLERGY: No EXAM: MRI - CONTRAST TYPE: GROUP II IV SITE: Ambulatory: A peripheral IV was started in the Right antecubital site with a Angio cath: 22 gauge. and A Saline lock was inserted per protocol IV SITE APPEARANCE: Clean,Dry and Intact SIGNATURE: Nidia Morelos RN PATIENT NAME: Ben Cruz DATE: February 23, 2022 TIME: 10:33 [facility]11-23-2022 History of Present illness Narrative* Nidia Morelos RN - 02/23/2022 10:40 AM EST Radiology Service Progress Note DATE OF SERVICE: February 23, 2022 TIME: 10:33 AM PATIENT WEIGHT: 225LBS PATIENT IDENTITY VERIFICATION COMPLETED USING TWO (2) STANDARD IDENTIFIERS: Name and Date of confirmed by patient verbally. FALL SCREENING: Has the patient had 2 falls in the last year or 1 fall with injury or currently using an Ambulatory Assistive Device (Walker, Cane, Wheelchair, Crutches, etc.)? No PATIENT GENDER DATA: Female. status: : No status: NO. ALLERGIES: Reviewed and unchanged CONTRAST ALLERGY: No EXAM: MRI - CONTRAST TYPE: GROUP II IV SITE: Ambulatory: A peripheral IV was started in the Right antecubital site with a Angio cath: 22 gauge. and A Saline lock was inserted per protocol IV SITE APPEARANCE: Clean,Dry and Intact SIGNATURE: Nidia Morelos RN PATIENT NAME: Ben Cruz DATE: February 23, 2022 TIME: 10:33 AM * Barbara Gaxiola MRI Tech - 02/23/2022 10:40 AM EST Radiology Service Progress Note PATIENT NAME: Ben Cruz DATE OF SERVICE: February 23, 2022 TIME: 10:57 AM PATIENT IDENTITY VERIFICATION COMPLETED USING TWO (2) IDENTIFIERS: Name and Date of confirmedby patient verbally. FALL SCREENING: Has the patient had 2 falls in the last year or 1 fall with injury or currently using an Ambulatory Assistive Device (Walker, Cane, Wheelchair, Crutches, etc.)? No PATIENT GENDER DATA: Female. status: : No status: NO. PATIENT RELEVANT IMPLANT DATA REVIEWED: Yes RADIOLOGY DEPARTMENT: MR; Exam(s) Completed: Head: Routine Brain PERIPHERAL IV DATA: Site assessment: Clean,Dry and Intact, Site disposition Discontinued SIGNED BY: Malys D MANISH Gaxiola February 23, 2022 10:57 AM documented in this encounterRiverview Health Institute09-20-2022 History of Present illness Narrative* Debbie Echeverria MD - 12/21/2021 1:37 PM EDT December 21, 2021 DXN: Resected T4aN0 desmoplastic melanoma. The lesion was about 4.5mm located on her back with 2 negative SLNs (left axilla). There was no reported neurtropism and only one mitotic figure. Margins were negative. Declined an adjuvant trial in [place]. Baseline imaging today is negative CC: Melanoma follow up HPI: No real change in sx ROS Negative except as above Exam Appears well No melanotic lesions No ITM Well healed scar No LA Imaging: None Impression Resected T4aN0 desmoplastic melanoma VIC. Imaging does not demonstrate metastases. She has a meningioma under survielllance with RadOnc. F/u with Derm. RTC 6 months RTC in 6 months Elements of this note, including HPI, ROS, Physical Exam, Assessment and Plan were copied and pasted from my 3.24.22 distance encounter. Updates have been made where noted and reflect current exam and medical decision making from December 21, 2021 I spent 25 minutes in the visit, with more than 50% of the total [id number]-[id number] time of the visit in counseling / coordination of care. Debbie Echeverria MD documented in this encounterRiverview Health Institute09-20-2022 Nurse Note* Tiny Mckoy LPN - 12/21/2021 1:20 PM EDT Additional intake questions: Has the patient had fever, nausea, vomiting, diarrhea, constipation, fatigue for > 1 week? Yes, fatigue Does the patient have a decreased appetite? No Does patient want to see a Solutions Architect? No (yes to any of above refer patient to schedulers for dietitian appointment) ) Does patient have any new or increased numbness or tingling of extremities? No Is patient interested in fertility information? No Does patient need any prescription refills? No Does patient have an advanced directive in place? No, Patient refused referral to Social Work or Resource Center documented in this encounterRiverview Health Institute09-02-2022 Miscellaneous Notes* Telephone Encounter - Jaylene Jacobson RN - 12/03/2021 12:49 PM EDT Patient needs a follow up visit (no labs or scans) around 12/25/21. She accepted a visit on 12/21 at 1:30 pm. 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 Echeverria to get it scheduled. Can she be called once appointment is made? Patient has been identified by name and birthdate. 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 INTERVAL HISTORY: Ms. Cruz was initially seen by our service on 06/21/2021 at which time the plan was for short interval follow-up to confirm meningioma. If there was no change in radiographic appearance, meningioma would be favored with further interval imaging at 6 months to 1 year. If there waschange, octreotide scan vs dotatate PET would be pursued. MRI today was stable. Continues to have headaches, unchanged from prior when she had COVID; mostly frontal some occipital; still a 3-5/10 at worse. Now will follow-up with Dr. Echeverria and others. Still has loss of smell but more so describes her current experience as a distortion of smell. Vision and hearing stable. Eating and drinking OK. No difficulty swallowing; no abdominal pain, nausea, vomiting. Bowel and bladder function is normal; no blood in urine or stool. Balance is intact. Strength and sensation in arms and legs intact. Does still complain of bilateral hand/finger numbness in hands; only with sleep - slightly worse; is having shoulder surgery in ~2 months possibly related. No seizures, lightheadedness, dizziness. Memory is without significant deficits, although she does feel foggy since COVID. Overall doing OK without significant change from prior consultation. IMAGING 08/23/2021: MRI brain IMPRESSION: Stable subcentimeter left frontal convexity meningioma. No acute intracranial process or additional abnormal enhancement to suggest metastatic disease. ALLERGIES No Known Allergies MEDICATIONS: omeprazole (PRILOSEC) 20 mg capsule Take 20 mg by mouth once daily. REVIEW OF SYSTEMS: Otherwise negative except as reported in the HPI PHYSICAL EXAM (deferred in the setting of a virtual visit): KPS: 80 General Appearance: Alert and oriented. No acute distress. 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 Today we discussed her interval history. Update MRI obtained today shows stable sub- centimeter left frontal convexity meningioma without any acute intracranial processes or evidence of metastatic disease. Imaging was reviewed and discussed. She will continue to follow with her team for management of post-COVID symptoms. She will obtain an updated MRI in 6 months in [place] followed by a virtual visit for further meningioma surveillance, with additional surveillance plan to be developed thereafter. Zhanna Le MD Radiation Oncology Resident [phone] STAFF ADDENDUM I saw and evaluated the patient. I personally obtained the beckwith and critical portions of the historyand physical exam. I reviewed the resident's documentation and discussed the patient with the resident. I agree with the resident's medical decision making as documented in the resident's note. Given stable MRI, I recommend continued follow-up in 6 mo given stability and small size. Follow-up in 6 mo with MRI of the brain. Luis Licona MD cc: Debbie Echeverria [id number] [facility] [id number] documented in this encounterRiverview Health Institute05-23-2022 History of Present illness Narrative* Nidia Morelos RN - 08/23/2021 11:20 AM EDT Radiology Service Progress Note DATE OF SERVICE: August 23, 2021 TIME: 11:40 AM PATIENT WEIGHT: 228LBS PATIENT IDENTITY VERIFICATION COMPLETED USING TWO (2) STANDARD IDENTIFIERS: Name and Date of confirmed by patient verbally. FALL SCREENING: Has the patient had 2 falls in the last year or 1 fall with injury or currently using an Ambulatory Assistive Device (Walker, Cane, Wheelchair, Crutches, etc.)? No PATIENT GENDER DATA: Female. status: : No status: NO. ALLERGIES: Reviewed and unchanged CONTRAST ALLERGY: No EXAM: MRI - CONTRAST TYPE: GROUP II IV SITE: Ambulatory: A peripheral IV was started in the Right antecubital site with a Angio cath: 22 gauge. and A Saline lock was inserted per protocol IV SITE APPEARANCE: Clean,Dry and Intact SIGNATURE: Nidia Morelos RN PATIENT NAME: Ben Cruz DATE: August 23, 2021 TIME: 11:40 AM * Rl Hooper RT(R) - 08/23/2021 11:20 AM EDT Radiology Service Progress Note PATIENT NAME: Ben Cruz DATE OF SERVICE: August 23, 2021 TIME: 12:14 PM PATIENT IDENTITY VERIFICATION COMPLETED USING TWO (2) IDENTIFIERS: Name and Date of confirmedby patient verbally and Name and Date of confirmed by identification band. FALL SCREENING: Has the patient had 2 falls in the last year or 1 fall with injury or currently using an Ambulatory Assistive Device (Walker, Cane, Wheelchair, Crutches, etc.)? No PATIENT GENDER DATA: Female. status: : No status: N/A PATIENT RELEVANT IMPLANT DATA REVIEWED: Yes RADIOLOGY DEPARTMENT: MR; Exam(s) Completed: Head: Routine Brain PERIPHERAL IV DATA: Site assessment: Clean,Dry and Intact, Site disposition Discontinued SIGNED BY: RT Genoveva(Cathy) August 23, 2021 12:14 PM documented in this encounterRiverview Health Institute03-16-2022 History of Present illness Narrative* Nazanin Moncada RN - 06/16/2021 10:00 AM EDT Radiology Service Progress Note DATE OF SERVICE: June 16, 2021 TIME: 10:22 AM PATIENT WEIGHT: 225LBS PATIENT IDENTITY VERIFICATION COMPLETED USING TWO (2) STANDARD IDENTIFIERS: Name and Date of confirmed by patient verbally. FALL SCREENING: Has the patient had 2 falls in the last year or 1 fall with injury or currently using an Ambulatory Assistive Device (Walker, Cane, Wheelchair, Crutches, etc.)? No PATIENT GENDER DATA: Female. status: : No status: NO. ALLERGIES: Reviewed and unchanged CONTRAST ALLERGY: No EXAM: MRI - CONTRAST TYPE: GROUP II IV SITE: Ambulatory: A peripheral IV was started in the Left forearm with a Diffusic cath: 22 gauge. A Saline lock was inserted per protocol. IV SITE APPEARANCE: Clean,Dry and Intact SIGNATURE: Nazanin Moncada RN PATIENT NAME: Ben Cruz DATE: June 16, 2021 TIME: 10:22 AM * Barbara Gaxiola, swimming pool service technician - 06/16/2021 10:00 AM EDT Radiology Service Progress Note PATIENT NAME: Ben Cruz DATE OF SERVICE: June 16, 2021 TIME: 10:35 AM PATIENT IDENTITY VERIFICATION COMPLETED USING TWO (2) IDENTIFIERS: Name and Date of confirmedby patient verbally. FALL SCREENING: Has the patient had 2 falls in the last year or 1 fall with injury or currently using an Ambulatory Assistive Device (Walker, Cane, Wheelchair, Crutches, etc.)? No PATIENT GENDER DATA: Female. status: : No status: NO. PATIENT RELEVANT IMPLANT DATA REVIEWED: Yes RADIOLOGY DEPARTMENT: MR; Exam(s) Completed: Body: Liver (routine) PERIPHERAL IV DATA: Site assessment: Clean,Dry and Intact, Site disposition Discontinued SIGNED BY: MANISH Hubbard June 16, 2021 10:35 AM documented in this encounterRiverview Health Institute03-01-2022 History of Present illness Narrative* Barbara Gaxiola MRI Tech - 06/01/2021 11:20 AM EST Radiology Service Progress Note PATIENT NAME: Ben Cruz DATE OF SERVICE: June 01, 2021 TIME: 11:18 AM PATIENT IDENTITY VERIFICATION COMPLETED USING TWO (2) IDENTIFIERS: Name and Date of confirmedby patient verbally. FALL SCREENING: Has the patient had 2 falls in the last year or 1 fall with injury or currently using an Ambulatory Assistive Device (Walker, Cane, Wheelchair, Crutches, etc.)? No PATIENT GENDER DATA: Female. status: : No status: NO. PATIENT RELEVANT IMPLANT DATA REVIEWED: Yes RADIOLOGY DEPARTMENT: MR; Exam(s) Completed: Head: Routine Brain PERIPHERAL IV DATA: Site assessment: Clean,Dry and Intact, Site disposition Discontinued SIGNED BY: MANISH Hubbard Lynn Sanders RT June 01, 2021 11:18 AM Radiology Service Progress Note DATE OF SERVICE: June 01, 2021 TIME: 11:13 AM PATIENT WEIGHT: 224LBS PATIENT IDENTITY VERIFICATION COMPLETED USING TWO (2) STANDARD IDENTIFIERS: Name and Date of confirmed by patient verbally. FALL SCREENING: Has the patient had 2 falls in the last year or 1 fall with injury or currently using an Ambulatory Assistive Device (Walker, Cane, Wheelchair, Crutches, etc.)? No PATIENT GENDER DATA: Female. status: : No status: NO. ALLERGIES: Reviewed and unchanged CONTRAST ALLERGY: No EXAM: MRI - CONTRAST TYPE: GROUP II IV SITE: Ambulatory: A peripheral IV was started in the Right antecubital site with a Angio cath: 22 gauge. 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 documented in this encounter [facility] note* Diagnosis Benign neoplasm of meninges (HCC)- Primary Benign neoplasm of cerebral meninges documented in this encounter [facility] note* Diagnosis 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) documented in this encounter [facility] noteNo [employer] Other Evaluation note* Diagnosis Meningioma (HCC)- Primary Benign neoplasm of cerebral meninges documented in this encounter [facility] note* Diagnosis Meningioma (HCC)- Primary Benign neoplasm of cerebral meninges documented in this encounter [facility] note* Diagnosis Benign neoplasm of meninges (HCC)- Primary Benign neoplasm of cerebral meninges documented in this encounter [facility] note* Diagnosis Benign neoplasm of meninges (HCC)- Primary Benign neoplasm of cerebral meninges documented in this encounter [facility] note* Diagnosis Benign neoplasm of meninges (HCC)- Primary Benign neoplasm of cerebral meninges documented in this encounter [facility] note* Diagnosis Benign neoplasm of meninges (HCC)- Primary Benign neoplasm of cerebral meninges documented in this encounter [facility] note* Diagnosis 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 documented in this encounter [facility] note* Diagnosis 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 documented in this encounter [facility] note* Diagnosis 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) Liver lesion Other specified disorders of liver documented in this encounter [facility] note* Diagnosis 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 documented in this encounter [facility] general Narrative - Reported* Type Description Date Medical History melanoma Surgical History laminectomy Surgical History c-sectionx 2 Surgical History hysterectomy Surgical History lump removed right wrist Surgical History melanoma removal [facility] [email or web address] Other [facility] [email or web address] Other [facility] Narrative - Reported* Type Description Date Medical History melanoma Surgical History laminectomy Surgical History c-sectionx 2 Surgical History hysterectomy Surgical History lump removed right wrist Surgical History melanoma removal Surgical History Colonoscopy 03/2023 [facility] [email or web address] Other Hospital Discharge instructions No data available for this section General Surgery [place] Progress note No data available for this section General Surgery [place] Reason for Referral Specialty Diagnoses / Procedures Referred By Contac t Referred To Contact MR IMAGING Diagnoses Benign neoplasm of meninges (HCC) Procedures MRI BRAIN WO/W IVCON MRI BRAIN BRAIN STEM W/O W/[place] [id number] [place] [address] Mr Imaging Referral ID Status Reason Start Date Expiration Date Visits Requested Visits Authorized [id number] Pending Review Auto-Generat ed Referral 08/23/2021 09/22/2022 1 1 Specialty Diagnoses / Procedures Referred By Contac t Referred To Contact MR IMAGING Diagnoses Benign neoplasm of meninges (HCC) Procedures MRI BRAIN WO/W IVCON MRI BRAIN BRAIN STEM W/O W/CONTRAST MATERIAL Trista Bonilla APRN.AGRONOMY RESEARCH MANAGER [address] [place] [id number] Mr Imaging Referral ID Status Reason Start Date Expiration Date Visits Requested Visits Authorized [id number] Pending Review Auto-Generat ed Referral 08/29/2022 03/31/2023 1 1 Reason *FU 11/15 screenin g colonoscopy Diagnosis 1 Screen for colon can cer (Z12.11) Referral Organization [facility] elias Referring Provider First Name Lissett Referring Provider Last Name Gary Referring Provider Specialty Family Medi cine Referred Organization [facility] Referred Provider Tucker Ann Referred Address [address], [place],[address] Referred Provider Specialty General Surg katelyn Referral Priority Routine General Notes Louise Livingston 10:47:05 AM >received today, attachments made, notes locked, referral faxed Clinical Notes F: [id number] Specialty Diagnoses / Procedures Referred By Contac t Referred To Contact MR IMAGING Diagnoses Benign neoplasm of meninges (HCC) Procedures MRI BRAIN LOCALIZATION W IVCON UNLISTED MAGNETIC RESONANCE PROCED Gurpreet Beckwith DO, PhD [address] [facility] [address] [place] [phone] Mr Imaging [place] [address] Referral ID Status Reason Start Date Expiration Date V isits Requested Visits Authorized [id number] Closed Auto-Generate d Referral 12/06/2022 1 1 Specialty Diagnoses / Procedures Referred By Contac t Referred To Contact MR IMAGING Diagnoses Benign neoplasm of meninges (HCC) Procedures MRI BRAIN WO/W IVCON MRI BRAIN BRAIN STEM W/O W/[place] [address] [place] [address] Mr Imaging [place] [address] Referral ID Status Reason Start Date Expiration Date V isits Requested Visits Authorized [id number] Closed Auto-Generate d Referral 06/21/2021 09/18/2021 1 1 Specialty Diagnoses / Procedures Referred By Contac t Referred To Contact MR IMAGING Diagnoses 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) Liver lesion Procedures MRI LIVER WO/W IVCON MRI ABDOMEN W/O & W/[place] [address] [place] [address] Mr Imaging [facility] Referral ID Status Reason Start Date Expiration Date V isits Requested Visits Authorized [id number] Closed Auto-Generate d Referral 05/20/2021 07/11/2021 1 1 Specialty Diagnoses / Procedures Referred By Selene t Referred To Contact MR IMAGING Diagnoses Benign neoplasm of meninges (HCC) Procedures MRI BRAIN WO/W IVCON MRI BRAIN BRAIN STEM W/O W/CONTRAST MATERIAL Trista Bonilla APRN.AGRONOMY RESEARCH MANAGER [address] [place] [address] [place] [address] Referral ID Status Reason Start Date Expiration Date V isits Requested Visits Authorized [id number] Closed Auto-Generate d Referral 08/29/2022 03/31/2023 1 1 Referral ID Status Reason Start Date Expiration Date V isits Requested Visits Authorized [id number] Closed Auto-Generate d Referral 08/23/2021 03/20/2022 1 1 Summary Purpose Family History No Family History Records FoundNo Family History Records FoundNo Family History Records FoundNo Family History Records Found No data available for this section No Family History Records Found Advance Directives No Advanced Directives Records FoundNo Advanced Directives Records FoundNo Advanced Directives Records FoundNo Advanced Directives Records FoundNo Advanced Directives Records Found Additional Source Comments Source Comments (unrecognize d section and content) In the event this informatio n is protected by the Federal Confidentiality of Alcohol and Drug Abuse Patient Records regulations: The Federal rules restrict any use of the information to criminally investigate or prosecute any alcohol or drug abuse patient.[facility] the event this information is protected by the Federal Confidentiality of Alcohol and Drug Abuse Patient Records regulations: The Federal rules restrict any use of the information to criminally investigate or prosecute any alcohol or drug abuse patient.[facility] InstituteIn the event this information is protected by the Federal Confidentiality of Alcohol and Drug Abuse Patient Records regulations: The Federal rules restrict any use of the information to criminally investigate or prosecute any alcohol or drug abuse patient.[facility] InstituteIn the event this information is protected by the Federal Confidentiality of Alcohol and Drug Abuse Patient Records regulations: The Federal rules restrict any use of the information to criminally investigate or prosecute any alcohol or drug abuse patient.[facility] InstituteIn the event this information is protected by the Federal Confidentiality of Alcohol and Drug Abuse Patient Records regulations: The Federal rules restrict any use of the information to criminally investigate or prosecute any alcohol or drug abuse patient.[facility] InstituteIn the event this information is protected by the Federal Confidentiality of Alcohol and Drug Abuse Patient Records regulations: The Federal rules restrict any use of the information to criminally investigate or prosecute any alcohol or drug abuse patient.[facility] InstituteIn the event this information is protected by the Federal Confidentiality of Alcohol and Drug Abuse Patient Records regulations: The Federal rules restrict any use of the information to criminally investigate or prosecute any alcohol or drug abuse patient.[facility] InstituteIn the event this information is protected by the Federal Confidentiality of Alcohol and Drug Abuse Patient Records regulations: The Federal rules restrict any use of the information to criminally investigate or prosecute any alcohol or drug abuse patient.[facility] InstituteIn the event this information is protected by the Federal Confidentiality of Alcohol and Drug Abuse Patient Records regulations: The Federal rules restrict any use of the information to criminally investigate or prosecute any alcohol or drug abuse patient.[facility] InstituteIn the event this information is protected by the Federal Confidentiality of Alcohol and Drug Abuse Patient Records regulations: The Federal rules restrict any use of the information to criminally investigate or prosecute any alcohol or drug abuse patient.[facility] InstituteIn the event this information is protected by the Federal Confidentiality of Alcohol and Drug Abuse Patient Records regulations: The Federal rules restrict any use of the information to criminally investigate or prosecute any alcohol or drug abuse patient.[facility] InstituteIn the event this information is protected by the Federal Confidentiality of Alcohol and Drug Abuse Patient Records regulations: The Federal rules restrict any use of the information to criminally investigate or prosecute any alcohol or drug abuse patient.[facility] InstituteIn the event this information is protected by the Federal Confidentiality of Alcohol and Drug Abuse Patient Records regulations: The Federal rules restrict any use of the information to criminally investigate or prosecute any alcohol or drug abuse patient.[facility] InstituteIn the event this information is protected by the Federal Confidentiality of Alcohol and Drug Abuse Patient Records regulations: The Federal rules restrict any use of the information to criminally investigate or prosecute any alcohol or drug abuse patient.[facility] InstituteIn the event this information is protected by the Federal Confidentiality of Alcohol and Drug Abuse Patient Records regulations: The Federal rules restrict any use of the information to criminally investigate or prosecute any alcohol or drug abuse patient.[facility] InstituteIn the event this information is protected by the Federal Confidentiality of Alcohol and Drug Abuse Patient Records regulations: The Federal rules restrict any use of the information to criminally investigate or prosecute any alcohol or drug abuse patient.[facility] InstituteIn the event this information is protected by the Federal Confidentiality of Alcohol and Drug Abuse Patient Records regulations: The Federal rules restrict any use of the information to criminally investigate or prosecute any alcohol or drug abuse patient.[facility] InstituteIn the event this information is protected by the Federal Confidentiality of Alcohol and Drug Abuse Patient Records regulations: The Federal rules restrict any use of the information to criminally investigate or prosecute any alcohol or drug abuse patient.[facility] InstituteIn the event this information is protected by the Federal Confidentiality of Alcohol and Drug Abuse Patient Records regulations: The Federal rules restrict any use of the information to criminally investigate or prosecute any alcohol or drug abuse patient.[facility] InstituteIn the event this information is protected by the Federal Confidentiality of Alcohol and Drug Abuse Patient Records regulations: The Federal rules restrict any use of the information to criminally investigate or prosecute any alcohol or drug abuse patient.[facility] InstituteIn the event this information is protected by the Federal Confidentiality of Alcohol and Drug Abuse Patient Records regulations: The Federal rules restrict any use of the information to criminally investigate or prosecute any alcohol or drug abuse patient.[facility] InstituteIn the event this information is protected by the Federal Confidentiality of Alcohol and Drug Abuse Patient Records regulations: The Federal rules restrict any use of the information to criminally investigate or prosecute any alcohol or drug abuse patient.[facility] InstituteIn the event this information is protected by the Federal Confidentiality of Alcohol and Drug Abuse Patient Records regulations: The Federal rules restrict any use of the information to criminally investigate or prosecute any alcohol or drug abuse patient.[facility] InstituteIn the event this information is protected by the Federal Confidentiality of Alcohol and Drug Abuse Patient Records regulations: The Federal rules restrict any use of the information to criminally investigate or prosecute any alcohol or drug abuse patient.[facility] InstituteIn the event this information is protected by the Federal Confidentiality of Alcohol and Drug Abuse Patient Records regulations: The Federal rules restrict any use of the information to criminally investigate or prosecute any alcohol or drug abuse patient.[facility] InstituteIn the event this information is protected by the Federal Confidentiality of Alcohol and Drug Abuse Patient Records regulations: The Federal rules restrict any use of the information to criminally investigate or prosecute any alcohol or drug abuse patient.[facility] Reason for Visit (unrecogniz ed section and content) diverticulitus Reason Comments Radiology MRI Specialty Diagnoses / Procedures Referred By Contac t Referred To Contact ADMITTING Diagnoses Benign neoplasm of meninges (HCC) Procedures RADIATION DELIVERY STEREOTACTIC CRANIAL COBALT STEREOTACTIC RADIOSURGERY 1 COMPLEX CRANIAL LES RADIATION [place] STEREOTACTIC RADIOSURGERY (SRS) [place] CRANIAL LESION(S) 1 SESSION MULTI-SOURCE COBALT STEREOTACTIC RADIOSURGERY 1 COMPLEX CRANIAL LESION [facility] [address] [address] Referral ID Status Reason Start Date Expiration Date Visits Re quested Visits Authorized [id number] [address] Specialty Diagnoses / Procedures Referred By Contac t Referred To Contact ADMITTING Diagnoses Benign neoplasm of meninges (HCC) Procedures RADIATION DELIVERY STEREOTACTIC CRANIAL COBALT STEREOTACTIC RADIOSURGERY 1 COMPLEX CRANIAL LES RADIATION [place] STEREOTACTIC RADIOSURGERY (SRS) [place] CRANIAL LESION(S) 1 SESSION MULTI-SOURCE COBALT STEREOTACTIC RADIOSURGERY 1 COMPLEX CRANIAL LESION [facility] [address] [address] Reason Comments Recheck Reason Comments 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 Reason Comments Established Patient Reason Comments Established Patient Reason Comments Recheck Reason Comments Consult GK consult for LF me ningioma Reason Comments 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 Reason Comments Procedure GKRS Reason Comments Radiology MRI Specialty Diagnoses / Procedures Referred By Contac t Referred To Contact MR IMAGING Diagnoses 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) New daily persistent headache Other headache syndrome Procedures MRI BRAIN WO/W IVCON MRI BRAIN BRAIN STEM W/O W/[place] [address] [place] [address] Mr Imaging [place] [address] Referral ID Status Reason Start Date Expiration Date V isits Requested Visits Authorized [id number] Closed Auto-Generate d Referral 04/29/2021 06/13/2021 1 1 Specialty Diagnoses / Procedures Referred By Contac t Referred To Contact MR IMAGING Diagnoses Benign neoplasm of meninges (HCC) Procedures MRI BRAIN WO/W IVCON MRI BRAIN BRAIN STEM W/O W/[place] [address] [place] [phone] Mr Imaging [place] [address] Referral ID Status Reason Start Date Expiration Date V isits Requested Visits Authorized [id number] Closed Auto-Generate d Referral 06/21/2021 09/18/2021 1 1 Specialty Diagnoses / Procedures Referred By Contac t Referred To Contact MR IMAGING Diagnoses 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) Liver lesion Procedures MRI LIVER WO/W IVCON MRI ABDOMEN W/O & W/[place] [address] [place] [phone] Mr Imaging [place] [address] Referral ID Status Reason Start Date Expiration Date V isits Requested Visits Authorized [id number] Closed Auto-Generate d Referral 05/20/2021 07/11/2021 1 1 Specialty Diagnoses / Procedures Referred By Contac t Referred To Contact MR IMAGING Diagnoses Benign neoplasm of meninges (HCC) Procedures MRI BRAIN WO/W IVCON MRI BRAIN BRAIN STEM W/O W/CONTRAST MATERIAL Trista Bonilla APRN.CNP [address] [place] [phone] Mr Imaging [place] [address] Referral ID Status Reason Start Date Expiration Date V isits Requested Visits Authorized [id number] Closed Auto-Generate d Referral 08/29/2022 03/31/2023 1 1 Referral ID Status Reason Start Date Expiration Date V isits Requested Visits Authorized [id number] Closed Auto-Generate d Referral 08/23/2021 03/20/2022 1 1 Reason Comments Gamma Knife Follow-up INFORMATION SOURCE (unrecogn ized section and content) DATE CREATED AUTHOR 06/10/2022 [facility] DATE CREATED AUTHOR AUTHOR'S ORGANIZ ATION 09/15/2022 [facility] DATE CREATED AUTHOR AUTHOR'S ORGANIZ ATION 02/04/2023 [facility] DATE CREATED AUTHOR AUTHOR'S ORGANIZ ATION 02/08/2023 [facility] DATE CREATED AUTHOR AUTHOR'S ORGANIZ ATION 03/11/2023 Ritesh Pickett [facility] Care Teams (unrecognized sec tion and content) Rv Service Technician Relationship Specialty Start Date End Date Lissett Vega MD [address] [facility] [place] [id number] PCP - General Family Medicine 01/17/23 Rv Service Technician Relationship Specialty Start Date End Date Lissett Vega MD [address] [facility] [place] [address] PCP - General Family Medicine 01/17/23 Rv Service Technician Relationship Specialty Start Date End Date Lissett Vega MD [address] [facility] [place] [address] PCP - General Family Medicine 01/17/23 Rv Service Technician Relationship Specialty Start Date End Date Lissett Vega MD [address] [facility] [place] [address] PCP - General Family Medicine 01/17/23 Rv Service Technician Relationship Specialty Start Date End Date Lissett Vega MD [address] [facility] [place] [address] PCP - General Family Medicine 01/17/23 Rv Service Technician Relationship Specialty Start Date End Date Lissett Vega MD [address] [facility] [place] [address] PCP - General Family Medicine 01/17/23 FOR RECORDS PERTAINING TO PATIENTS WHO ARE OR HAVE BEEN ENROLLED IN A CHEMICAL DEPENDENCY/SUBSTANCEABUSE PROGRAM, SOME INFORMATION MAY BE OMITTED. This clinical summary was aggregated from multiple sources. Caution should be exercised in using it in the provision of clinical care. This summary normalizes information from multiple sources, and as a consequence, information in this document may materially change the coding, format and clinical context of patient data. In addition, data may be omitted in some cases. CLINICAL DECISIONS SHOULD BE BASED ON THE PRIMARY CLINICAL RECORDS. [facility]. provides no warranty or guarantee of the accuracy or completeness of information in this document.
== END 2023-02-22 09:08 | disposition home or self-care (01) ==
LOC: RAD 09:07
PROVIDERS: PCP Family Medicine; Visit Provider Podiatrist Foot & Ankle Surgery
DX: M79.672 Pain in left foot (principal)
CPT/HCPCS: 73630

== ENCOUNTER 2023-02-28 15:01 | Outpatient (OUT) | payer OTHER, SELFPAY | END 2023-02-28 15:02 | disposition home or self-care (01) | LOC: PST 15:01 | PROVIDERS: PCP Family Medicine; Visit Provider Surgery | DX: Z01.818 Encounter for other preprocedural examination (principal); Z12.11 Encounter for screening for malignant neoplasm of colon ==

== ENCOUNTER 2023-03-08 09:05 | Day surgery (SDC) | payer OTHER, SELFPAY ==
--- NOTE | 2023-03-08 | OP_ITS ---
OPERATION DATE: 03/08/2023 PREOPERATIVE DIAGNOSIS: Colorectal screening. POSTOPERATIVE DIAGNOSIS: Normal colonoscopy to cecum. PROCEDURE: Colonoscopy to cecum. SURGEON: Evert Montalvo M.D. ANESTHESIA: Monitored anesthesia care. ESTIMATED BLOOD LOSS: Zero. INDICATIONS AND CONSENT: Patient is a 47-year-old female presents for colorectal screening. Indications, risks, benefits, alternatives of proceeding with colonoscopy were explained extensively to the patient, including the risks of bleeding, colon perforation or anesthetic complications. All of her questions were answered. Informed consent was obtained. PROCEDURE: Patient brought to the operating room, placed in the left lateral decubitus position. Monitored anesthesia care was provided. Rectal exam was performed which showed no masses or blood. The scope was inserted into the anal canal. Under direct visualization was advanced. It was advanced to the cecum where cecal markings were clearly identified. Upon withdrawal of the scope, mucosal surfaces were carefully examined. There was noted to be a good prep. There were no mass lesions or polyps. No inflammatory changes or ulcerations. No significant diverticulosis. The scope was retroflexed in the anal canal. There were prominent rectal veins. No significant hemorrhoidal disease. Scope was then withdrawn. Patient tolerated procedure well, was sent to recovery room in good condition. Follow up colonoscopy for screening should be in 10 years. CC: Zofia Ocasio M.D. ADRIANO
[2023-03-08 09:24] VITALS: BP 120/96; PULSE 86; RESP 16; TEMP 36.4; O2SAT 98; BMI 34.5
[2023-03-08] MEDS: LACTATED RINGER'S SOLUTION 1,000 ML 50 ML IV (09:33)
[2023-03-08 11:26] VITALS: BP 112/86; PULSE 74; RESP 12; TEMP 36.5; O2SAT 97
[2023-03-08 11:56] VITALS: BP 133/88; PULSE 90; RESP 16; O2SAT 99
== END 2023-03-08 11:56 | disposition home or self-care (01) ==
PROVIDERS: PCP Family Medicine; Visit Provider Surgery
PROC: (CPT 812; principal; 2023-03-08 10:05)
DX: Z12.11 Encounter for screening for malignant neoplasm of colon (principal); E66.01 Morbid (severe) obesity due to excess calories; E78.00 Pure hypercholesterolemia, unspecified; Z90.710 Acquired absence of both cervix and uterus; Z87.891 Personal history of nicotine dependence; Z68.35 Body mass index [BMI] 35.0-35.9, adult; Z85.820 Personal history of malignant melanoma of skin
CPT/HCPCS: 45378; J2704

== ENCOUNTER 2023-03-09 15:30 | Outpatient (OUT) | payer OTHER, SELFPAY ==
--- NOTE | 2023-03-09 15:38 | MR_ITS ---
The [place] [id number] Patient Name: BEN TABOR MRN: [id number] date: 1975 Sex: F Assigned Patient Location: MRI Current Patient Location: Accession/Order Number: [id number] Exam Date: 03/09/2023 15:45 Report Date: 03/11/2023 18:45 At the request of: ALEKSANDER FALCON Procedure: MR ankle LT wo con MR ankle LT wo con, 03/09/2023 3:45 PM EST INDICATION: Peroneal Tendinitis, Planter Fasciitis COMPARISON: Prior x-ray of the left foot dated 02/22/2023 TECHNIQUE: Multiplanar and multisequential MR images of the left ankle were obtained without contrast . FINDINGS: Muscles and tendons: The flexor and extensor tendons and muscles are unremarkable. Focus of T2 prolongation within the peroneus brevis tendon at the level of the peroneal tubercle likely consistent with mild tendinosis. Otherwise, no abnormality of the peroneal tendons is noted. Achilles tendon is unremarkable. Bone: There is no bone marrow edema. Sclerotic lesion within the talus likely due to bone island. No other osseus lesion is noted. Sinus Tarsi: No abnormality of sinus Tarsi is noted. Plantar fascia: T2 prolongation at origin of the plantar fascia suggesting of plantar fasciitis. Ligaments: The deep and superficial portions of deltoid are unremarkable. The lateral ligaments are unremarkable. The visualized portion of Lisfranc ligament is unremarkable. There is normal intra-articular joint effusion. No soft tissue abnormality is noted. MR/MR ankle LT wo con IMPRESSION: Minimal tendinosis within the peroneus brevis at the level of the peroneal tubercle. Mild plantar fasciitis. Electronically authenticated by: SRINI PÉREZ Date: 03/11/2023 18:45
== END 2023-03-09 15:31 | disposition home or self-care (01) ==
LOC: MRI 15:30
PROVIDERS: PCP Family Medicine; Visit Provider Podiatrist Foot & Ankle Surgery
DX: M76.72 Peroneal tendinitis, left leg (principal); M72.2 Plantar fascial fibromatosis
CPT/HCPCS: 73721

== ENCOUNTER 2023-03-22 08:56 | Outpatient (OUT) | payer OTHER, SELFPAY ==
--- NOTE | 2023-03-22 09:03 | ECG_ITS ---
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
--- OUTSIDE RECORDS SUMMARY | 2023-03-22 09:08 | XMS_ITS | CCD ---
Author Name Unknown Address [address] [place] [address] Organization [facility] Care Team Providers Care Cereal Maker Name Role Phone Unavailable Primary Care Provider Jacqueline VEGA, DR LISSETT Fung Admitting Unavailable VEGA, DR LISSETT Fung Attending Unavailable VEGA, DR LISSETT Fung Primary Care Unavailable [facility] [place], DR MONCADA Consulting Unavailable VEGA, DR LISSETT [...] DR LISSETT Fung Attending Unavailable VEGA, DR LISESTT Fung Primary Care Unavailable VEGA, DR LISSETT [...] BURAK Attending Unavailable CHADTRISTA Referring Unavailable BECKWITH, GURPERET Admitting Unavailable BECKWITH, GURPREET Attending Unavailable BECKWITH, [...] or physicia Propensity to adverse reactions Comment:Done [employer] Other (3 sources) Allergies Reconciled Propensity to adverse reactions Unknown [employer] Other (1 source) No Known Medication Allergies; Translations: [No Known Medication Allergies] Propensity to adverse reactions (disorder) [facility] Repository Medications Current Medications Medication Drug Class(es) [...] Facil ity Outside Colonoscopyon 2022 Outside Colonoscopy [id number]#1.00TIFF [facility] Reminderson 03-09-2023 Reminders - From: Veronica Jack LPN To: N - Clinical; Sent: 03/09/2023 13:42:54 EST Show up: 02/06/2033 07:00:00 EST Subject: colonoscopy recall Due Date/Time: 03/08/2033 07:00:00 EST Reminder/Recall Patient due for screening colonoscopy 03/08/2033. [facility] Consent for Procedure/Surger yon 02-21-2023 Consent for Procedure/Surgery [id number]#1.00TIFF [facility] Facesheeton 02-20-2023 Facesheet [id number] IFF [facility] Ambulatory Visit Summaryon 1 04-19-2022 Ambulatory Visit [...] you for choosing us for your care. [facility] Louise 02-07-2023 [facility] Telephone ([facility]) BEN CRUZ ([id number]) 1975 F Date Time Provider Department 02/07/23 JOHANN HENRIQUEZ [facility] During your visit today, we recorded [...] Encounter Status:Closed by JOHANN HENRIQUEZ on 02/07/23 [facility] BEN CRUZ ([id number]) 1975 F Date Time Provider Department 02/06/23 JOHANN HENRIQUEZ [facility] During your visit today, we recorded the following information about you: Johann Henriquez RN 02/06/2023 1:20 PM Signed Calling Ben for post-GKRS follow-up. Unable to reach at this time. Left voicemail. Johann Henriquez RN 02/07/2023 1:19 PM Signed 2nd attempt to reach out, patient unavailable. Will send [employer] message with contact information to call if [...] Encounter Status:Closed by JOHANN HENRIQUEZ on 02/07/23 [facility] CNKashifn 01-27-2023 CNOP Operative Note (Enc) (NSCAMN) Encounter Status:Closed by GURPREET BECKWITH on 01/27/23 [facility] Operative Note (Enc) (NSCAMN) Encounter Status:Closed by GURPREET BECKWITH on 01/27/23 [facility] CNOVon 01-27-2023 CNOV Office Visit (NSCAMN ) BEN CRUZ ([id number]) 1975 F Date Time Provider Department 01/27/23 [...] 7.1 AL (more content not included)... Normal [facility] CNOV Office Visit (PARISHBrittani ) BEN CRUZ ([id number]) 1975 F Date Time Provider Department 01/27/23 8:30 AM MASK PLACEMENT [facility] During your visit today, we recorded the [...] Patient's Age: 47 Menstruation Status: Hysterectomy 2019 [facility] Results: N/A test not performed QC: Yes, testing is valid (or protocol followed for invalid testing). Reference range: Normal Value = Negative for hCG. POC performed by: Gayle Acevedo RN 0979 4 mg Decadron PO given prior to GKRS per order of Dr. Virgil Beckwith 0946 GKRS start time. 1016 GKRS end time. 1025 Discharge instructions given to patient; instructions reviewed by this RN; patient/family verbalized understanding; patient discharged via/with BIGG Segura Kaitlin, RN 01/27/2023 8:35 AM Addendum [facility] Gamma Knife Center Discharge Instructions As with [...] a physician or hospital other than the [facility] with any problem related to the Gamma [...] may your physician, Dr. Virgil Beckwith at [phone] Monday through Monday 8:00 am to 5:00 pm, or call the Gamma Knife nurse Monday through Monday 8:00 am to 4:00 pm at [phone]. In the evening or on weekends, call [phone] or toll-free [phone] and ask the acid pump operator to page your neurosurgeon's resident ornamental iron worker helper. Referring Provider: GURPREET BECKWITH [[id number]] Allergies As [...] [D32.9] 01/27/2023 Other instructions from your clinician: [facility] Gamma Knife [facility] Discharge Instructions As with any surgery there are risks and potential side effects. Th (more content not included)... Normal [facility] CT BRAIN WO IVCONon 01-28-20 CT BRAIN [...] were required COMPARISON: Concurrent brain MRI RESULT: Shaft Repairer (topogram) images: No additional findings. Post-operative change: [...] OF EXTRA-AXIAL ENHANCING TISSUE SEEN ON MRI Woodworking Machine Offbearer: TORI Transcribe Date/Time: Jan 27 2023 8:21A Dictated by : ESTUARDO WHALEY MD This examination was interpreted and the report reviewed and electronically signed by: ESTUARDO WHALEY MD on Jan 27 2023 8:23AM EST [id number] Normal [facility] MRI BRAIN LOCAL W IVCONon MRI [...] FRONTAL LOBE, UNCHANGED GOING BACK TO 06/01/2021 Woodworking Machine Offbearer: TORI Transcribe Date/Time: Jan 27 2023 8:08A Dictated by : ESTUARDO WHALEY MD This examination was interpreted and the report reviewed and electronically signed by: ESTUARDO WHALEY MD on Jan 27 2023 8:20AM EST [id number] Normal [facility] MRI BRAIN LOCALIZATION W IVC ONon 01-27-2023 [facility] Physician Referralon 023 Physician Referral [id number] Normal [facility] Physician Referralon 2 023 Physician Referral [id number] Deanna Awad [facility] CNOVSPon 12-22-2022 CNOVSP Visit (SP) Office ([facility]) SHARONABEN ([id number]) 1975 F Date Time Provider Department 12/22/22 [...] were negative. Declined an adjuvant trial in mineral. Baseline imaging today is negative CC: Melanoma [...] No Does patient want to see a Lining Printer? No (yes to any of above refer [...] for Encounter Date Provider Department Center 12/22/2022 [id number] [place] [facility] [place] Prescriptions as [...] No Does patient want to see a Lining Printer? No (yes to any of above refer patient to schedulers for dietitian appointment) ) Does patient have any new or increased numbness or tingling of extremities? No Is patient interested in fertility information? No Does patient need any prescription refills? No Does patient have an advanced directive in place? No, Patient refused referral to Social Work or Resource Center [facility] Louise [facility]-20[facility] BEN CRUZ ([id number]) 1975 F Date Time Provider Department 11/15/22 BETZY HEARD [facility] During your visit today, we recorded the following information about you: Betzy Heard RN 11/15/2022 2:04 PM Signed Calling Ben to follow up on [employer] message about scheduling gamma knife for 01/27/2023 No answer, left message stating that I'll go ahead and place the GK orders. Reminded to disregard ANY appointment times she sees in [employer], any automated text reminders or automated phone calls for 01/27/23 She will receive a call from the GK nurse or radiation therapist the day before with her arrival time. If she has any questions, I left office phone # for call back or she can send a [employer] message. I will send out a GK folder with additional information related to Mask Based Gamma Knife Radiosurgery Betzy Heard RN, BSN Laboratory Veterinarian [facility] Allergies As of Date: 11/15/2022 (No Known Allergies) Date Reviewed: 10/19/2022 Reviewed by: Trista Bonilla APRN.BIOINFORMATICIST - Fully Assessed Reason for Visit: 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 [[id number]] Cmt: Schedule gamma knife 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 Prescriptions as of 11/15/2022 - meloxicam (MOBIC) 15 mg tablet - inclisiran (LEQVIO) 284 mg/1.5 mL injection - omeprazole (PRILOSEC) 20 mg capsule Take 20 mg by mouth once daily. Problem List As Of Date: 11/15/2022 (None) Encounter Status:Closed by [facility]) BEN CRUZ ([id number]) 1975 F Date Time Provider Department 10/20/22 BETZY HEARD [facility] During your visit today, we recorded the following information about you: Betzy Heard, RN 10/20/2022 11:56 AM Signed Time Frame: As soon as can be scheduled - can be virtual or in clinic Orders: n/a Provider: Tang Referring: Pelon Diagnosis: meningioma Allergies As of Date: 10/20/2022 (No Known Allergies) Date Reviewed: 10/19/2022 Reviewed by: Trista Bonilla APRN.[facility] - Fully Assessed Reason for Visit: GIN - new pt consult with Dr. Beckwith [Other] Prescriptions as of 11/10/2022 - meloxicam (MOBIC) 15 mg tablet - inclisiran (LEQVIO) 284 mg/1.5 mL injection - omeprazole (PRILOSEC) 20 mg capsule Take 20 mg by mouth once daily. Problem List As Of Date: 10/20/2022 (None) Encounter Status:Closed by BETZY HAERD on 11/10/22 [facility] MRI BRAIN WO/W IVCONon 10-17 MRI BRAIN WO/W IVCON * * *Final Report* * * DATE OF EXAM: Oct 17 2022 11:20AM [facility] 0295 - MRI BRAIN WO/W IVCON [...] with air-fluid level suggestive of acute/active sinusitis. Woodworking Machine Offbearer: TORI Transcribe Date/Time: Oct 17 2022 11:35A Dictated by : CHUCKY BRAY MD This examination was interpreted and the report reviewed and electronically signed by: CHUCKY BRAY MD on Oct 17 2022 11:45AM EST [id number] Normal [facility] ic Complete Blood Count Auto Di ffon 09-12-2022 Basophils (Bld) [#/Vol] 0.1 10*3/uL Normal 0.0-0.2 [facility] Comment on above: Result Comment: PERF ORMED BY: [address] [place] [address] PATHOLOGIST MANAGER MAIL ARNULFO STYLES M.D. Performed By: #### C BC #### [facility] [address] Basophils/100 WBC (Bld) 0.7 % Normal . [facility] Comment on above: Performed By: #### C BC #### [address] Eosinophils (Bld) [#/Vol] 0.2 10*3/uL Normal 0.0-0.45 [facility] Comment on above: Performed By: #### C BC #### [address] Eosinophils/100 WBC (Bld) 2.7 % Normal . [facility] Comment on above: Performed By: #### C BC #### [address] Erythrocyte distribution wid th (RBC) [Ratio] 12.9 % Normal 11.9-15.3 [facility] Comment on above: Performed By: #### C BC #### [address] Hematocrit (Bld) [Volume fraction] 41.8 % Normal 34.0-46.4 [facility] Comment on above: Performed By: #### C BC #### [address] Hemoglobin (Bld) [Mass/Vol] 14.3 g/dL Normal 11.8-15. 4 [facility] Comment on above: Performed By: #### C BC #### [address] Lymphocytes (Bld) [#/Vol] 2.0 10*3/uL Normal 1.00-4.8 [facility] Comment on above: Performed By: #### C BC #### [address] Lymphocytes/100 WBC (Bld) 25.3 % Normal . [facility] Comment on above: Performed By: #### C BC #### [address] MCH (RBC) [Entitic mass] 29.8 pg Normal 24.7-34.3 [facility] Comment on above: Performed By: #### C BC #### [facility] [address] MCV (RBC) [Entitic vol] 87.2 fL Normal 80-100 [facility] Comment on above: Performed By: #### C BC #### [facility] [address] Mean Corpuscular HGB Conc 34.2 g/dL Normal 32.0-35.0 [facility] Comment on above: Performed By: #### C BC #### [facility] [address] [place] [address] [place] Monocytes (Bld) [#/Vol] 0.7 10*3/uL Normal 0.0-0.8 [facility] Comment on above: Performed By: #### C BC #### [facility] [address] [place] [address] [place] Monocytes/100 WBC (Bld) 9.1 % Normal . [facility] Comment on above: Performed By: #### C BC #### [facility] [address] [place] [address] [place] Neutrophils (Bld) [#/Vol] 4.8 10*3/uL Normal 1.8-7.7 [facility] Comment on above: Performed By: #### C BC #### [facility] [address] [place] [address] [place] Neutrophils/100 WBC (Bld) 62.2 % Normal . [facility] Comment on above: Performed By: #### C BC #### [facility] [address] NRBC% 0.4 /100{WBC} Normal 0-0.5 [facility] Comment on above: Performed By: #### C BC #### [facility] [address] Platelet mean volume (Bld) [Entitic vol] 7.5 fL Normal 6.3-10.7 [facility] Comment on above: Performed By: #### C BC #### [facility] [address] [place] [address] [place] Platelets (Bld) [#/Vol] 225 10*3/uL Normal 150-450 [facility] Comment on above: Performed By: #### C BC #### [facility] [address] RBC (Bld) [#/Vol] 4.80 10*6/uL Normal 3.60-5.00 [facility] Comment on above: Performed By: #### C BC #### [facility] [address] WBC (Bld) [#/Vol] 7.7 10*3/uL Normal 3.8-11.6 [facility] Comment on above: Performed By: #### C BC #### [address] XR chest 2V*on 09-12-2022 XR chest 2V* [facility] Main [place] [address] [place] [address] XRay Report Signed Patient: Ben Cruz MR#: [id number] 3 : 1975 Acct:[id number] Age/Sex: 47 / F ADM Date: 09/12/22 Loc: [place] Room: Type: [facility] Attending Dr: Taz Rossi DPM Copies to: [...] Florentino Woods M.D.09/12/2022 4:53 PM Dictation Location: [facility]--07 Transcribed By: LIDNA 09/12/221652 Dictated By: Florentino Woods II, MD 09/12/221651 Signed By: 09/12/221652 [facility] Louise 08-31-2022 [place] Telephone ([facility]) BEN CRUZ ([id number]) 1975 F Date Time Provider Department 08/31/22 LUIS LICONA During your visit today, we recorded the following information about you: Adriana Brown 08/31/2022 4:12 PM Signed Patient called in to ask for a prescription of Atavan sent to her local [facility] prior to her scheduled MRI on 09/05. Prescription should be sent to the [facility] in [place] on [facility]. [facility] [phone] [place] [address] Trista Bonilla APRN.BIOINFORMATICIST 08/31/2022 4:35 PM Signed Ativan sent to preferred pharmacy per patient request prior to MRI. PDMP website checked and validated. All prescriptions have been APPROPRIATELY filled. No suspicious activity was identified. 08/31/2022 by Trista Bonilla APRN.BIOINFORMATICIST Allergies As of Date: 08/31/2022 (No Known Allergies) Date Reviewed: 08/31/2022 Reviewed by: Trista Bonilla APRN.BIOINFORMATICIST - Fully Assessed Reason for Visit: 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 [8455] Visit Diagnosis:Malignant melanoma of torso excluding breast [...] Encounter Status:Closed by TRISTA BONILLA on 08/31/22 [facility] CNOVSPon 06-21-2022 CNOVSP Visit (SP) Office (H EMCA3) BEN CRUZ ([id number]) 1975 F Date Time Provider Department 06/21/22 [...] No Does patient want to see a Lining Printer? No (yes to any of above refer [...] were negative. Declined an adjuvant trial in mineral. Baseline imaging today is negative CC: Melanoma [...] with more than 50% of the total qnbj-nl-iime time of the visit in counseling / coordination of care. Debbie Echeverria MD Referring Provider: DEBBIE ECHEVERRIA [[id number]] Allergies As of Date: 06/21/2022 (No Known [...] for Encounter Date Provider Department Center 06/21/2022 [id number] [place] [facility] [place] Prescriptions as [...] No Does patient want to see a Lining Printer? No (yes to any of above refer [...] Status:Closed by DEBBIE ECHEVERRIA on 06/21/[address] [facility] MRI BRAIN WO/W IVCONon 02-23 MRI BRAIN WO/W IVCON * * *Final Report* * * DATE OF EXAM: Feb 23 2022 11:31AM [facility] 0295 - MRI BRAIN WO/W IVCON [...] unremarkable MRI brain with and without contrast. Woodworking Machine Offbearer: TORI Transcribe Date/Time: Feb 23 2022 11:50A Dictated by : CARLITOS MCGUIRE MD This examination was interpreted and the report reviewed and electronically signed by: CARLITOS MCGUIRE MD on Feb 23 2022 11:55AM EST [id number] Normal [facility] CBC AUTO DIFFon 11-18-2021 BASO # 0.0 103/ul Normal 0.0-0.1 [facility] Comment on above: Performed By: #### H FPFCBC #### [facility] [address] [place] [address] Dr. Arcenio Billy Basophils/100 WBC (Bld) 0.4 % Normal 0.2-2.[address] [facility] Comment on above: Performed By: #### H FPFCBC #### [facility] [address] [place] [address] Dr. Arcenio Billy EO # 0.2 103/ul Normal 0.0-0.7 [facility] Comment on above: Performed By: #### H FPFCBC #### [facility] [address] [place] [address] Dr. Arcenio Billy Eosinophils/100 WBC (Bld) 3.0 % Normal 0.9-7.[address] [facility] Comment on above: Performed By: #### H FPFCBC #### [facility] [address] [place] [address] Dr. Arcenio Billy Erythrocyte distribution wid th (RBC) [Ratio] 12.1 % Normal 11.0-15.0 [facility] Comment on above: Performed By: #### H FPFCBC #### [facility] [address] [place] [address] Dr. Arcenio Billy Hematocrit (Bld) [Volume fraction] 43.1 % Normal 3 6.0-48.[address] [facility] Comment on above: Performed By: #### H FPFCBC #### [facility] [address] [place] [address] Dr. Arcenio Billy Hemoglobin (Bld) [Mass/Vol] 14.1 g/dL Normal 12.0-16. [address] [facility] Comment on above: Performed By: #### H FPFCBC #### [facility] [address] [place] [address] Dr. Arcenio Billy IG # 0.01 10e3/ul Normal 0.00-0.[address] [facility] Comment on above: Performed By: #### H FPFCBC #### [facility] [address] [place] [address] Dr. Arcenio Billy IG % 0.2 % Normal 0.0-0.5 [facility] Comment on above: Performed By: #### H FPFCBC #### [facility] [address] [place] [address] Dr. Arcenio Billy LYMPH # 1.9 103/ul Normal 1.2-3.8 [facility] Comment on above: Performed By: #### H FPFCBC #### [facility] [address] [place] [address] Dr. Arcenio Billy Lymphocytes/100 WBC (Bld) 35.7 % Normal 20.5-60.[address] [facility] Comment on above: Performed By: #### H FPFCBC #### [facility] [address] [place] [address] Dr. Arcenio Billy MCH (RBC) [Entitic mass] 28.8 pg Normal 26.7-34.[address] [facility] Comment on above: Performed By: #### H FPFCBC #### [facility] [address] [place] [address] Dr. Arcenio Billy MCHC (RBC) [Mass/Vol] 32.7 g/dL Normal 29.9-35.[address] [facility] Comment on above: Performed By: #### H FPFCBC #### [facility] [address] [place] [address] Dr. Arcenio Billy MCV (RBC) [Entitic vol] 88.1 fL Normal 81.0-99.[address] [facility] Comment on above: Performed By: #### H FPFCBC #### [facility] [address] [place] [address] Dr. Arcenio Billy MONO # 0.5 103/ul Normal 0.3-0.8 [facility] Comment on above: Performed By: #### H FPFCBC #### [facility] [address] [address] [address] Arcenio Billy Monocytes/100 WBC (Bld) 9.9 % Normal 1.7-12.[address] [facility] Comment on above: Performed By: #### H FPFCBC #### [facility] [address] [place] [address] Dr. Arcenio Billy NEUT # 2.7 103/ul Normal 1.4-6.5 [facility] Comment on above: Performed By: #### H FPFCBC #### [facility] [address] [place] [address] Dr. Arcenio Billy Neutrophils/100 WBC (Bld) 50.8 % Normal 43.0-75.[address] [facility] Comment on above: Performed By: #### H FPFCBC #### [facility] [address] [place] [address] Dr. Arcenio Billy Platelet mean volume (Bld) [Entitic vol] 8.9 fL Critically low 9.5-13.5 [facility] pital Comment on above: Performed By: #### H FPFCBC #### [facility] [address] [place] [address] Dr. Arcenio Billy PLT 271 103/ul Normal 150-450 [facility] Comment on above: Performed By: #### H FPFCBC #### [facility] [address] [place] [address] Dr. Arcenio Billy RBC 4.89 106/ul Normal 4.20-5.40 [facility] Comment on above: Performed By: #### H FPFCBC #### [facility] [address] [place] [address] Dr. Arcenio Billy WBC 5.3 103/ul Normal 4.0-11.0 [facility] Comment on above: Performed By: #### H FPFCBC #### [facility] [address] [place] [address] Dr. Arcenio Billy [facility] PROFILEon 022 Albumin [Mass/Vol] 3.7 g/dL Normal 3.4-5.0 [facility] Comment on above: Performed By: #### H FPF #### [facility] [address] [address] [address] Arcenio Billy Albumin/Globulin [Mass ratio] 1.1 {ratio} Normal [facility] Comment on above: Performed By: #### H FPF #### [facility] [address] [address] [address] Arcenio Billy ALP [Catalytic activity/Vol] 60 U/L Normal 46-[address] [facility] Comment on above: Performed By: #### H FPF #### [facility] [address] [address] [address] Arcenio Billy ALT [Catalytic activity/Vol] 47 U/L Normal 14-[address] [facility] Comment on above: Performed By: #### H FPF #### [facility] [address] [place] [address] Dr. Arcenio Billy AST [Catalytic activity/Vol] 25 U/L Normal 15-[address] [facility] Comment on above: Performed By: #### H FPF #### [facility] [address] [place] [address] Dr. Arcenio Billy Bilirubin [Mass/Vol] 0.5 mg/dL Normal 0.2-1.[address] [facility] Comment on above: Performed By: #### H FPF #### [facility] [address] [place] [address] Dr. Arcenio Billy Calcium [Mass/Vol] 8.8 mg/dL Normal 8.5-10.1 [facility] Comment on above: Performed By: #### H FPF #### [facility] [address] [id number] Dr. Arcenio Billy Chloride [Moles/Vol] 103 mmol/L Normal 98-[address] [facility] Comment on above: Performed By: #### H FPF #### [facility] [address] [place] [address] Dr. Arcenio Billy CHOL-HDL RATIO NORM SEE BELOW Normal [facility] Comment on above: Result Comment: 3.3 - 4.4 LOW RISK 4.4 - 7.1 AVERAGE RISK 7.1 - 11.0 MODERATE RISK >11.0 HIGH RISK Performed By: #### H FPF #### [facility] [address] [address] [address] Arcenio Billy Cholesterol [Mass/Vol] 352 mg/dL Critically high <=[address] [facility] Comment on above: Performed By: #### H FPF #### [facility] [address] [address] [address] Arcenio Billy Cholesterol in HDL [Mass/Vol] 34 mg/dL Critically low 40 -[address] [facility] Comment on above: Performed By: #### H FPF #### [facility] [address] [address] [address] Arcenio Billy Cholesterol in LDL [Mass/Vol] 274.2 mg/dL Normal [facility] Comment on above: Performed By: #### H FPF #### [facility] [address] [address] [address] Arcenio Billy Cholesterol.total/Cholestero l in HDL [Mass ratio] 10.4 {ratio} Normal [facility] Comment on above: Performed By: #### H FPF #### [facility] [address] [address] [address] Arcenio Billy CO2 [Moles/Vol] 25.7 mmol/L Normal 21.0-32.0 [facility] Comment on above: Performed By: #### H FPF #### [facility] [address] [address] [address] Arcenio Billy Creatinine [Mass/Vol] 0.91 mg/dL Normal 0.55-1.[address] [facility] Comment on above: Performed By: #### H FPF #### [facility] [address] [address] [address] Arcenio Billy Globulin (S) [Mass/Vol] 3.4 g/dL Normal [facility] Comment on above: Performed By: #### H FPF #### [facility] [address] [address] [address] Arcenio Billy Glucose [Mass/Vol] 91 mg/dL Normal 74-106 [facility] Comment on above: Performed By: #### H FPF #### [facility] [address] [address] [address] Arcenio Billy HDL NORMAL > or = 60 mg/dl - LO W CARDIOVASCULAR RISK <40 mg/dl - HIGH CARDIOVASCULAR RISK Normal [facility] Comment on above: Performed By: #### H FPF #### [facility] [address] [address] [address] Arcenio Billy LDL CALC NORMAL SEE BELOW Normal [facility] Comment on above: Result Comment: <100 mg/dl OPTIMAL 100 - 129 mg/dl NEAR OR ABOVE OPTIMAL 130 - 159 mg/dl BORDERLINE HIGH 160 - 189 mg/dl HIGH >190 mg/dl VERY HIGH Performed By: #### H FPF #### [facility] [address] [address] [address] Arcenio Billy Potassium [Moles/Vol] 4.1 mmol/L Normal 3.5-5.[address] [facility] Comment on above: Performed By: #### H FPF #### [facility] [address] [address] [address] Arcenio Billy Protein [Mass/Vol] 7.1 g/dL Normal 6.4-8.[address] [facility] Comment on above: Performed By: #### H FPF #### [facility] [address] [address] [address] Arcenio Billy Sodium [Moles/Vol] 139 mmol/L Normal 136-[address] [facility] Comment on above: Performed By: #### H FPF #### [facility] [address] [address] [address] Arcenio Billy Triglyceride [Mass/Vol] 219 mg/dL Critically high <=150 [facility] Comment on above: Performed By: #### H FPF #### [facility] [address] [address] [address] Arcenio Billy TSH 1.717 uIU/mL Normal 0.358-3.740 [facility] Comment on above: Performed By: #### H FPF #### [facility] [address] [address] [address] Arcenio Billy Urea nitrogen [Mass/Vol] 11.0 mg/dL Normal 7.0-18.0 [facility] Comment on above: Performed By: #### H FPF #### [facility] [address] [place] [address] Dr. Arecnio Billy Urea nitrogen/Creatinine [Mass ratio] 12.1 mg/mg Normal [facility] Comment on above: Performed By: #### H FPF #### [facility] [address] [place] [address] Dr. Arcenio Billy VLDL CALC 43.8 mg/dL Normal [facility] Comment on above: Performed By: #### H FPF #### [facility] [address] [place] [address] Dr. Arcenio Billy PAP ACOG PANEL 2: 30 to 65on 09-19-2021 . . Normal [facility] Comment on above: Result Comment: Perf ormed at: WB Performed By: #### [id number] #### [facility] [address] [place] [address] Dr. Arcenio Billy Age Gdln ACOG Testing 30-[address] [facility] Comment on above: Performed By: #### [id number] #### [facility] [address] [place] [address] Dr. Arcenio Billy DIAGNOSIS: Comment Normal [facility] Comment on above: Result Comment: NEGA TIVE FOR INTRAEPITHELIAL LESION OR MALIGNANCY. FUNGAL ORGANISMS MORPHOLOGICALLY CONSISTENT WITH MOSES SPECIES ARE PRESENT. Performed at: WB Performed By: #### [id number] #### [facility] [address] [place] [address] Dr. Arcenio Billy HPV Aptima Negative Normal Negative [facility] Comment on above: Result Comment: This nucleic acid amplification test detects fourteen high-risk HPV types (16,18,31,33,35,39,45,51,52,56,58,59,66,68) without differentiation. Performed at: =G Performed By: #### [id number] #### [facility] [address] [place], [place] [id number] Dr. Arcenio Billy Methodology: Comment Normal [facility] Comment on above: Result Comment: This liquid based ThinPrep(R) pap test was screened with the use of an image guided system. Performed at: WB Performed By: #### [id number] #### [facility] [address] [place] [address] Dr. Arcenio Billy Note: Comment Normal [facility] Comment on above: Result Comment: The Pap smear is a screening test designed to aid in the detection of premalignant and malignant conditions of the uterine cervix. It is not a diagnostic procedure and should not be used as the sole means of detecting cervical cancer. Both false-positive and false-negative reports do occur. . Performed at: WB Performed By: #### [id number] #### [facility] [address] [place] [address] Dr. Arcenio Blily Performed by: Comment Normal [facility] Comment on above: Result Comment: Bronson Cordero, Print Binding And Finishing Worker (ASCP) Performed at: WB Performed By: #### [id number] #### [facility] [address] [place] [address] Dr. Arcenio Billy Specimen adequacy: Comment Normal [facility] Comment on above: Result Comment: Sati sfactory for evaluation. No endocervical component is identified. Performed at: WB Performed By: #### [id number] #### [facility] [address] [place] [address] Dr. Arcenio Billy MG MAMM SCREEN 3D JULIO CÉSAR CADon 09-08-2021 MG MAMM SCREEN 3D JULIO CÉSAR CAD Patient: BEN CRUZ Exam Date: 09/08/2021 : 1975 Gender:F Ordering : DR CHELITA VILLANUEVA . Admission #: [id number] Family : Order #: [id number] CLICK HERE TO VIEW EXAM RADIOLOGY REPORT [...] pancreatic cancer at age 71. LOCATION: [facility] BREAST COMPOSITION: Scattered areas fibroglandular density. [...] MD on 09/08/2021 at 11:[address] [facility] MRI BRAIN WO/W IVCONon 08-23 [facility] MRI LIVER WO/W IVCONon 06-16 [facility] MRI BRAIN WO/W IVCONon 06-01 [facility] Vital Signs Date Time Vital Sign Value Performing Clinician Facility 03-16-2023 13:45-0500 Body height 162.56 cm Lissett Vega Other [facility] Other 03-16-2023 13:45-0500 Body mass index (BMI) [Ratio] 34.5 kg/m2 Lissett Vega Other [facility] Other 03-16-2023 13:45-0500 Body temperature 99.1 [degF] Lissett Vega Other [facility] Other 03-16-2023 13:45-0500 Body weight 91.17 kg Lissett Vega Other [facility] Other 03-16-2023 13:45-0500 Diastolic blood pressure 88 mm[Hg] Lissett Vega Other [facility] Other 03-16-2023 13:45-0500 SaO2% (BldA) [Mass fraction] 98 % Lissett Vega Other [facility] Other 03-16-2023 13:45-0500 Systolic blood pressure 128 mm[Hg] Lissett Vega Other [facility] Other 02-17-2023 14:47-0500 Blood Pressure Location [employer] [facility] 02-17-2023 14:47-0500 Diastolic blood pressure 84 mm[Hg] Debbie NILL [facility] [place] 02-17-2023 14:47-0500 Heart rate 76 /min Debbie NILL [facility] [place] 02-17-2023 14:47-0500 Respiratory rate 16 /min Debbie NILL [facility] [place] 02-17-2023 14:47-0500 Systolic blood pressure 128 mm[Hg] Debbie NILL [facility] 09-21-2022 11:30-0400 Body height 162.56 cm Lissett Vega Other [employer] Other 09-21-2022 11:30-0400 Body mass index (BMI) [Ratio] 36.56 kg/m2 Lissett Vega Other [facility] Other 09-21-2022 11:30-0400 Body weight 96.62 kg Lissett Vega Other [facility] Other 09-21-2022 11:30-0400 Diastolic blood pressure 84 mm[Hg] Lissett Vega Other [employer] Other 09-21-2022 11:30-0400 Systolic blood pressure 137 mm[Hg] Lissett Vega Other [facility] [employer] Other 06-21-2022 10:32-0400 Body height 165 cm Debbie Echeverria MD Work Phone: [facility] 06-21-2022 10:32-0400 Body temperature 96.8 [degF] Debbie Echeverria MD Work Phone: [facility] 06-21-2022 10:32-0400 Body weight 98.79 kg Debbie Echeverria MD Work Phone: [facility] 06-21-2022 10:32-0400 Diastolic blood pressure 82 mm[Hg] Debbie Echeverria MD Work Phone: [facility] 06-21-2022 10:32-0400 Heart rate 74 /min Debbie Echeverria MD Work Phone: [facility] 06-21-2022 10:32-0400 Respiratory rate 18 /min Debbie Echeverria MD Work Phone: [facility] 06-21-2022 10:32-0400 SaO2% (BldA) [Mass fraction] 96 % Debbie Echeverria MD Work Phone: [facility] 06-21-2022 10:32-0400 Systolic blood pressure 139 mm[Hg] Debbie Echeverria MD Work Phone: [facility] 12-21-2021 13:24-0400 Body temperature 98.6 [degF] Debbie Echeverria MD Work Phone: [facility] 12-21-2021 13:24-0400 Body weight 102.15 kg Debbie Echeverria MD Work Phone: [facility] 12-21-2021 13:24-0400 Diastolic blood pressure 82 mm[Hg] Debbie Echeverria MD Work Phone: [facility] 12-21-2021 13:24-0400 Heart rate 79 /min Debbie Echeverira MD Work Phone: [facility] 12-21-2021 13:24-0400 Respiratory rate 20 /min Debbie Echeverria MD Work Phone: [facility] 12-21-2021 13:24-0400 SaO2% (BldA) [Mass fraction] 100 % Debbie Echeverria MD Work Phone: [facility] 12-21-2021 13:24-0400 Systolic blood pressure 145 mm[Hg] Debbie Echeverria MD Work Phone: [facility] Encounters Encounter Date Encounter Type Care Provider Facility Start: 03-16-2023 End: 03-16-2023 ambulatory Lissett Vega Other [employer] Other Start: 03-16-2023 Office outpatient vi sit 15 minutes Lissett Vega [facility] Start: 02-17-2023 End: 02-18-2023 ambulatory Debbie R NILL Facility:[facility] Start: 02-17-2023 End: 02-17-2023 Patient encounter procedure Debbie R NILL [facility] Start: 02-07-2023 Telephone encounter Johann Henriquez RN [facility] Start: 02-06-2023 Telephone encounter Johann Henriquez RN [facility] Comment on above: Gamma Knife Follow-u p Start: 01-27-2023 End: 01-28-2023 Orders Only Gurpreet Beckwith DO, PhD Work Phone: Neurosurgery Comment on above: Benign neoplasm of m eninges (HCC) (Primary Dx) Benign neoplasm of m eninges (HCC) [D32.9] Start: 01-27-2023 Patient encounter procedure Burak Daley MD Work Phone: [facility] Start: 01-27-2023 Radiation Oncology Note Burak Daley MD Work Phone: [place] [facility] Comment on above: Procedure Treatment Planning Start: 01-24-2023 ambulatory Debbie NILL Facility:[facility] Start: 01-23-2023 End: 01-23-2023 ambulatory Lissett Gary Other [employer] Other Start: 01-23-2023 Telephone encounter Lissett Gary [facility] Start: 12-22-2022 End: 12-22-2022 ambulatory DEBBIE ECHEVERRIA Facility:[facility] Start: 11-15-2022 Telephone encounter Betzy liao RN Work Phone: [facility] Comment on above: Laboratory Veterinarian - O ther (Schedule gamma knife 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/) Start: 11-04-2022 End: 11-04-2022 ambulatory Gurpreet Beckwith DO, PhD Work Phone: [facility] Comment on above: Benign neoplasm of m eninges (HCC) (Primary Dx) Start: 11-04-2022 End: 11-04-2022 Telemedicine consultation with patient Gurpreet Beckwith DO, PhD Work Phone: [facility] Start: 10-31-2022 End: 10-31-2022 ambulatory Lissett Gary Other [employer] Other Start: 10-31-2022 Telephone encounter Lissett Gary [facility] Start: 10-19-2022 End: 10-19-2022 ambulatory DEBBIE ECHEVERRIA Facility:[facility] Start: 10-19-2022 End: 10-19-2022 ambulatory Luis Licona MD Work Phone: Radiation Oncology Comment on above: Meningioma (HCC) (Pr imary Dx) Start: 10-19-2022 End: 10-19-2022 Telemedicine consultation with patient Luis Licona MD Work Phone: [facility] Start: 10-18-2022 End: 10-18-2022 ambulatory DEBBIE ECHEVERRIA Facility:[facility] Start: 10-18-2022 End: 10-18-2022 ambulatory Trista Bonilla APRN.CNP Work Phone: Radiation Oncology Comment on above: Meningioma (HCC) (Pr imary Dx) Start: 10-18-2022 End: 10-18-2022 Telemedicine consultation with patient Trista Bonilla FELIX Work Phone: [facility] Start: 10-17-2022 End: 10-17-2022 ambulatory TRISTA BONILLA Facility:[facility] Start: 10-17-2022 End: 10-17-2022 Subsequent hospital visit by physician Mri [facility] (Lg Bore/1.5t) Radiology MRI Comment on above: Benign neoplasm of m eninges (HCC) [D32.9] Start: 09-23-2022 End: 09-23-2022 ambulatory Lissett Vega Other [employer] Other Start: 09-23-2022 Telephone encounter Lissett Vega [facility] Start: 09-21-2022 End: 09-21-2022 ambulatory Lissett Vega Other [employer] Other Start: 09-21-2022 Encounter for other preprocedural examination Lissett Vega [facility] Start: 09-21-2022 Office outpatient vi sit 25 minutes Lissett Vega [facility] Start: 09-12-2022 End: 09-12-2022 ambulatory Taz Rossi Facility:[facility] Start: 08-31-2022 Telephone encounter Luis osborn MD Work Phone: Radiation Oncology Comment on above: Laboratory Veterinarian - O ther Start: 06-21-2022 End: 06-21-2022 ambulatory DEBBIE ECHEVERRIA Facility:[facility] Start: 06-21-2022 End: 06-21-2022 ambulatory Debbie Echeverria MD Work Phone: Hematology/Oncology Comment on above: Malignant melanoma o f torso excluding breast (HCC) (Primary Dx) Start: 06-21-2022 End: 06-21-2022 Patient encounter procedure Debbie Echeverria MD Work Phone: [facility] Start: 03-16-2022 End: 03-16-[address] LISSETT VEGA Facility: Start: 02-28-2022 End: 02-28-2022 ambulatory DEBBIE ECHEVERRIA Facility:[facility] Start: 02-28-2022 End: 02-28-2022 ambulatory Trista Bonilla APRTayBIOINFORMATICIST Work Phone: Radiation Oncology Comment on above: Benign neoplasm of m eninges (HCC) (Primary Dx) Start: 02-28-2022 End: 02-28-2022 Telemedicine consultation with patient Trista Bonilla APRN.BIOINFORMATICIST Work Phone: [facility] Start: 02-23-2022 End: 02-23-2022 ambulatory LUIS LICONA Facility:[facility] Start: 02-23-2022 End: 02-23-2022 Subsequent hospital visit by physician Mri [facility] (Lg Bore/1.5t) Radiology MRI Comment on above: Benign neoplasm of m eninges (HCC) [D32.9] Start: 12-21-2021 End: 12-21-2021 ambulatory Debbie Echeverria MD Work Phone: Hematology/Oncology Comment on above: Malignant melanoma o f torso excluding breast (HCC) (Primary Dx) Start: 12-21-2021 End: 12-21-2021 Patient encounter procedure Debbie Echeverria MD Work Phone: [facility] Start: 12-15-2021 End: 12-15-[address] LISSETT VEGA Facility:[facility] Start: 12-11-2021 Gynecological examination normal Lissett Vega Other [employer] Other Start: 12-01-2021 Telephone encounter Debbie Echeverria MD Work Phone: Hematology/Oncology Comment on above: Laboratory Veterinarian - O ther Start: 11-18-2021 End: 11-19-2021 [...] with patient Luis Licona MD Work Phone: [facility] Start: 08-23-2021 End: 08-23-2021 Subsequent hospital visit by physician Mri [facility] (Lg Bore/1.5t) Radiology MRI Comment on above: Benign neoplasm of m eninges (HCC) [D32.9] Start: 06-16-2021 End: 06-16-2021 Subsequent hospital visit by physician Mri [facility] (Lg Bore/1.5t) Radiology MRI Comment on above: Malignant 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] Start: 06-01-2021 End: 06-01-2021 Subsequent hospital visit by physician Mri [facility] (Lg Bore/1.5t) Radiology MRI Comment on above: [...] 12-21-2022 Adult depression screening assessment DEPRESSION SCREENING [facility] Start: 12-02-2022 Influenza vaccination [facility] Start: 08-29-2022 End: 03-31-2023 Mri brain brain stem w/o w/contrast material MRI BRAIN WO/W IVCON Radiology Routine Benign neoplasm of meninges (HCC) Expected: 08/29/2022, Expires: 03/31/2023 [facility] Work Phone: Comment on above: Expected: 08/29/2022 , Expires: 03/31/2023 Start: 08-22-2022 Adult depression screening assessment DEPRESSION SCREENING [facility] Start: 04-03-2022 DEPRESSION ASSESSMENT DEPRESSION ASS [facility] Start: 01-24-2022 DIABETES SCREEN DIABETES SCREEN [facility] Start: 01-24-2022 Diabetes Screening Diabetes Screenin g [facility] Start: 12-02-2021 Influenza vaccination [facility] Start: 04-03-2021 [facility]PRESSION [facility] Start: 07-12-2020 COLOGUARD (FIT-DNA) COLOGUARD (FIT-D NA) [facility] Start: 07-12-2020 Colonoscopy COLONOSCOPY [facility] Start: 07-12-2020 COLORECTAL CANCER SCREENING COLORECTAL CANCER SCREENING [facility] Start: 07-12-[address] COLONOGRAPHY [facility] Start: 07-12-2020 FECAL OCCULT BLOOD FECAL OCCULT BLOO D [facility] Start: 07-12-2020 Lipid 1996 panel - S emeterio or Plasma Lipid Screening [facility] Start: 07-12-2020 LIPID SCREEN LIPID SCREEN [facility] Start: 07-12-2020 SIGMOIDOSCOPY SIGMOIDOSCOPY [facility] Start: 2015 Mammography [facility] Start: 07-12-2005 HPV TESTING HPV TESTING [facility] Start: 07-12-1996 PAP TESTING PAP TESTING [facility] Start: 07-12-1994 Urine microalbumin profile [facility] Start: 07-12-1993 HEPATITIS C SCREENING HEPATITIS C SC REENING [facility] Start: 07-12-1993 HIV SCREENING HIV SCREENING [facility] Start: 07-12-1981 PNEUMOCOCCAL (1 - PCV) PNEUMOCOCCAL (1 - PCV) [facility] Start: 07-12-1980 COVID-19 VACCINE (#1) COVID-19 VACCI NE (#1) [facility] Start: 01-12-1976 COVID-19 VACCINE (#1) COVID-19 VACCI NE (#1) [facility] Start: 1975 HEPATITIS B (1 of 3 - 3-dose series) HEPATITIS B (1 of 3 - 3-dose series) [facility] Start: 1975 Hepatitis B Vaccine (1 of 3 - 3-dose series) Hepatitis B Vaccine (1 of 3 - 3-dose series) [facility] End: 09-22-2022 Mri brain brain stem w/o w/contrast material MRI BRAIN WO/W IVCON Radiology Routine Benign neoplasm of meninges (HCC) 1 Occurrences starting 08/23/2021 until 09/22/2022 [facility] Work Phone: Comment on above: 1 Occurrences starti ng 08/23/2021 until 09/22/2022 [facility] ANESTHESIA O NLY [facility] c Immunizations Immunization Date Immunization Notes Care Provider Fa cility 06-05-2020 SARS-CoV-2 (COVID-19 ) mRNA BNT-162b2 vax Debbie NILL [facility] 05-15-2020 SARS-CoV-2 (COVID-19 ) mRNA BNT-162b2 vax Debbie NILL [facility] NEGATED: Highlighted row has not occurred!02-17-2023 influenza virus vaccine, unspecified formulation Debbie NILL [facility] [place] Payers Date Payer Category Payer Self-pay 2018 Unknown MMO MMO [employer] [id number] 2018-Present [phone] [address] [place] [address] PPO [id number] 2018 Unknown [id number] 1975 Unknown [id number] 1975 Unknown [id number] 1975 Unknown [id number] 1975 Unknown [id number] 1975 Unknown [id number] 1959 Self-pay [id number] 1959 Unknown [id number] Unknown [id number] Unknown [id number] Social History Date Type Detail Facility Start: 11-19-2018 End: 02-17-2023 Tobacco smoking status NHIS Ex-smoker [facility] End: 08-02-2018 History of tobacco use Current smoker [facility] End: 08-02-2018 History of tobacco use Cigarette Smoker [facility] Start: 11-19-2018 Tobacco use and exposure Smokeless t obacco non-user [facility] Start: 06-21-2021 End: 12-22-2022 Alcohol intake Current drinker of alcohol (finding) [facility] Start: 11-19-2018 History SDOH Alcohol Comment occasionally [facility] Start: 1975 Sex Assigned At Not on file [facility] Start: 12-11-2021 End: 12-21-2021 Exposure to SARS-CoV-2 (event) Not sure [facility] Start: 06-21-2022 End: 10-18-2022 Sex Assigned At [facility] Start: 06-21-2022 End: 10-18-2022 History of Social function [facility] Adult Depression Screening Assessment 0 [facility] Start: 01-20-2020 Gender identity Identifies as female gender (finding) [facility] Start: 05-02-2021 End: 06-11-2021 Exposure to SARS-CoV-2 (event) Unable to assess [facility] Functional Status Date Assessment Result Facility 02-17-2023 [...] Mar, 2023 Microscopic hematuria (ICD-10 - R31.29) [employer] Other 11-17-2023 NoteChief Complaint consultation for screening [...] Recorded SARS-CoV-2 (COVID-19) mRNA BNT-162b2 vax 05/15/2020 RecordedLutheran HospitalComment on above:Result Comment: Electronically Signed By: MAGALI MCKINLEY, Debbie He\Date and Time Signed: 02/17/23 15:11 [id number] Miscellaneous Notes* Telephone Encounter - Johann Henriquez [...] symptoms or concerns arise. documented in this encounterPremier Health [facility]11-07-2023 Miscellaneous Notes* Telephone Encounter - Johann Henriquez RN - 02/07/2023 1:13 PM EST 2nd attempt to reach out, patient unavailable. Will send [employer] message with contact information to call if she is experiencing any symptoms or has any concerns since gamma knife treatment. * Telephone Encounter - Johann Henriquez RN - 02/06/2023 1:17 PM EST Calling Ben for post-GKRS follow-up. Unable to reach at this time. Left voicemail. documented in this encounterPremier Health Miami Valley Hospital South11-01-2023 NoteHNO ID: [id number] Author: Burak Daley MD Service: Radiation Oncology Author Type: Physician Type: Progress Notes Filed: 02/03/2023 12:33 AM Note Text: MAG SHARONASAWYER Payan [id number] 02/01/2023 [facility] / Department of Radiation [...] :57 AM Electronically Signed cc: Dr. Gurpreet BeckwithSouthern [facility]-2023 NoteHNO ID: [id number] Author: Gurpreet Beckwith DO, PhD Service: ? Author Type: Physician Type: Progress Notes Filed: 01/27/2023 1:49 PM Note Text: [facility] [address] [place] [address] [place] OPERATIVE REPORT NAME: Ben Cruz [facility] NO.: [id number] MASK SIMULATION DATE: 2023-01-27 RADIATION TREATMENT START [...] of Fractions: 1 After the usual quality control engineer procedures were performed, fractionated 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 was delivered with use of the Gamma Knife. The Gamma Knife checklist and time outs were performed during this procedure. Gurpreet Beckwith DO, PhDSt. [facility] Of [facility]10-27-2023 NoteHNO ID: [id number] Author: Burak Daley MD Service: Radiation Oncology Author Type: Physician Type: Progress Notes Filed: 02/01/2023 12:33 AM Note Text: BEN CRUZ [id number] 01/27/2023 [facility] Cindi Diez [facility] STEREOTACTIC RADIOSURGERY (SRS) DAILY PROCEDURE NOTE [...] to patient setup, I conferred with the medical assembler to approve the final setup. I was [...] planned. Electronically Signed Burak Daley M.D. :10 [facility]10-27-2023 NoteHNO ID: [id number] Author: Burak Daley MD Service: Radiation Oncology Author Type: Physician Type: Progress Notes Filed: 02/02/2023 12:32 AM Note Text: BEN CRUZ [id number] 01/27/2023 [facility] Department of Radiation Oncology [facility] RADIATION ONCOLOGY GAMMA KNIFE SIMULATION NOTE [...] planning. Electronically Signed Burak Daley M.D. 35:18 [facility]10-27-2023 NoteHNO ID: [id number] Author: Burak Daley MD Service: Radiation Oncology Author Type: Physician Type: Progress Notes Filed: 02/01/2023 12:33 AM Note Text: BEN CRUZ [id number] 01/27/2023 [facility] Department of Radiation Oncology [facility] RADIATION ONCOLOGY GAMMA KNIFE TREATMENT PLANNING [...] DVH. Electronically Signed Burak Daley M.D. / [facility] 31:29 [facility]10-27-2023 History of Present illness Narrative* Gurpreet Beckwith DO, PhD - 01/27/2023 1:49 PM EDT [facility] [address] [place] [address] [place] OPERATIVE REPORT NAME: Ben Cruz [facility] NO.: [id number] MASK SIMULATION DATE: 2023-01-27 RADIATION TREATMENT START [...] of Fractions: 1 After the usual quality control engineer procedures were performed, fractionated 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 was delivered with use of the Gamma Knife. The Gamma Knife checklist and time outs were performed during this procedure. Gurpreet Beckwith DO, PhD documented in this encounterPremier Health Miami [facility]10-27-2023 NoteHNO ID: [id number] Author: Gurpreet Beckwith DO, PhD Service: ? Author Type: Physician Type: Progress Notes Filed: 01/27/2023 11:22 AM Note Text: [facility] [address] [place] [address] [place] OPERATIVE REPORT NAME: Ben Cruz [facility] NO.: [id number] MASK SIMULATION DATE: 2023-01-27 RADIATION TREATMENT START [...] of Fractions: 1 After the usual quality control engineer procedures were performed, fractionated 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 was delivered with use of the Gamma Knife. The Gamma Knife checklist and time outs were performed during this procedure. Gurpreet Beckwith DO, PhDSt. John Of God Hospital10-27-2023 NoteHNO ID: [id number] Author: Zee Padilla Tech Service: Radiology Author Type: Denier Control Operator Type: Progress Notes Filed: 01/27/2023 8:06 AM [...] BY: Tyshawn Lawler January 27, 2023 8:06 [facility]10-27-2023 NoteHNO ID: [id number] Author: Gurpreet Beckwith DO, PhD Service: ? [...] - 123 U/L 60 (more content not included)...[facility]10-27-2023 History of Present illness Narrative* Gurpreet Beckwith DO, PhD - 01/27/2023 11:21 AM EDT [facility] [address] [place] [address] [place] OPERATIVE REPORT NAME: Ben Cruz [facility] NO.: [id number] MASK SIMULATION DATE: 2023-01-27 RADIATION TREATMENT START [...] of Fractions: 1 After the usual quality control engineer procedures were performed, fractionated 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 was delivered with use of the Gamma Knife. The Gamma Knife checklist and time outs were performed during this procedure. Gurpreet Beckwith DO, PhD documented in this encounterPremier Health Miami [facility]10-27-2023 History of Present illness Narrative* Zee Padilla [...] 27, 2023 8:06 AM documented in this encounterPremier Health Miami Valley Hospital South10-27-2023 NoteHNO ID: [id number] Author: Anton Terrell RN Service: Nursing Author [...] Cruz DATE: January 27, 2023 TIME: 7:46 [facility]10-27-2023 NoteHNO ID: [id number] Author: Mariela Burk RT(R) Service: Radiology Author [...] BY: RT Nestor(R) January 27, 2023 7:59 [facility]10-27-2023 History of Present illness Narrative* Gurpreet [...] 123 U/L 60 Final Pathology: Specimen #: [id number]* Submitting Physician: DEBBIE ECHEVERRIA MD FINAL DIAGNOSIS [...] FRONTAL LOBE, UNCHANGED GOING BACK TO 06/01/2021 Woodworking Machine 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 Author [...] Patient's Age: 47 Menstruation Status: Hysterectomy 2019 [facility] Results: N/A test not performed QC: Yes, [...] verbalized understanding; patient discharged via/with Gayle Acevedo RNSt. John Of God Hospital10-27-2023 Instructions* Patient Instructions* Gayle Acevedo RN - 01/27/2023 7:45 AM EDT [facility] Gamma Knife Center Discharge Instructions As with [...] a physician or hospital other than the [facility] with any problem related to the [...] may your physician, Dr. Virgil Beckwith at [phone] Monday through Monday 8:00 am to 5:00 pm, or call the Gamma Knife nurse Monday through Monday 8:00 am to 4:00 pm at [phone]. In the evening or on weekends, call [phone] or toll-free [phone] and ask the acid pump operator to page your neurosurgeon's resident ornamental iron worker helper. documented in this encounterPremier Health Miami [facility] Hospital [facility]10-27-2023 History of Present illness Narrative* Anton Terrell [...] 27, 2023 7:59 AM documented in this encounterPremier Health Miami [facility]10-27-2023 History of Present illness Narrative* Gayle Acevedo [...] Patient's Age: 47 Menstruation Status: Hysterectomy 2019 [facility] Results: N/A test not performed QC: Yes, [...] via/with Gayle Acevedo RN documented in this encounterPremier Health Miami [facility]10-27-2023 History of Present illness Narrative* Burak Daley MD - 01/27/2023 12:00 AM EDT SHARONA BEN Felix [id number] 01/27/2023 [facility] STEREOTACTIC RADIOSURGERY (SRS) DAILY PROCEDURE NOTE [...] regard to patientsetup, I conferred with the medical assembler to approve the final setup. I was [...] Daley M.D. :10 PM documented in this encounterPremier Health Miami Valley Hospital South10-27-2023 History of Present illness Narrative* Burak Daley MD - 01/27/2023 12:00 AM EDT BEN CRUZ [id number] 01/27/2023 [facility] Department of Radiation Oncology [facility] RADIATION ONCOLOGY GAMMA KNIFE TREATMENT PLANNING [...] DVH. Electronically Signed Burak Daley M.D. / [facility] :29 PM documented in this encounterPremier Health Miami Valley Hospital South09-21-2023 NoteHNO ID: [id number] Author: Debbie Echeverria MD Service: ? Author Type: Physician Type: Progress Notes Filed: 12/23/2022 9:46 AM Note Text: December 22, 2022 DXN: Resected T4aN0 desmoplastic melanoma. The lesion was about 4.5mm located on her back with 2 negative SLNs (left axilla). There was no reported neurtropism and only one mitotic figure. Margins were negative. Declined an adjuvant trial in mineral. Baseline imaging today is negative CC: Melanoma [...] beckwith components of the Resident. Debbie Echeverria, [facility]08-15-2023 Miscellaneous Notes* Telephone Encounter - Betzy Heard, BIGG - 11/15/2022 1:57 PM EDT Calling Ben to follow up on [employer] message about scheduling gamma knife for 01/27/2023 No answer, left message stating that I'll go ahead and place the GK orders. Reminded to disregard ANY appointment times she sees in [employer], any automated text reminders or automated phone calls for 01/27/23 She will receive a call from the GK nurse or radiation therapist the day before with her arrival time. If she has any questions, I left office phone # for call back or she can send a [employer] message. I will send out a GK folder with additional information related to Mask Based Gamma Knife Radiosurgery Betzy Heard RN, BSN Laboratory Veterinarian [facility] documented in this encounterPremier Health Miami [facility]08-04-2023 NoteHNO ID: [id number] Author: Gurpreet Beckwith DO, PhD Service: ? Author Type: Physician Type: Progress Notes Filed: 11/04/2022 1:27 PM Note Text: [facility] Neuro[facility]Oncology Center New Patient Virtual Consultation Referred by Dr. Luis Licona We had a virtual visit conducted via [employer] virtual visit. I received consent from the patient to perform the visit using this platform. I have communicated my name and active licensure. The patient's identity and physical location were verified at the time of this visit. Either the patient or their legal abrasives sales representative has been informed of the risks [...] Pathology: Specimen #: [id number] (more content not included)...[facility] 11-04-2022 History of Present illness Narrative* Gurpreet Beckwith DO, PhD - 11/04/2022 1:00 PM EDT Images from the original note were not included. [facility] New Patient Virtual Consultation Referred by Dr. Luis Licona We had a virtual visit conducted via [email or web address]. I received consent from the patient to perform the visit using this platform. I have communicated my name and active licensure. The patient's identity and physical location wereverified at the time of this visit. Either the patient or their legal abrasives sales representative has been informed of the risks [...] 123 U/L 60 Final Pathology: Specimen #: [id number]* Submitting Physician: DEBBIE ECHEVERRIA MD FINAL DIAGNOSIS Skin, left upper midline back, shave biopsy - Desmoplastic melanoma, see synoptic report. SDB/rw 11/09/2018 Imaging: MRI Report MRI BRAIN WO/W IVCON Exam End: 10/17/2022 11:20 AM (Final result) Narrative: * * *Final Report* * * DATE OF EXAM: Oct 17 2022 11:20AM [facility] 0295 - MRI BRAIN WO/W IVCON [...] with air-fluid level suggestive of acute/active sinusitis. Woodworking Machine Offbearer: [facility] Transcribe Date/Time: Oct 17 2022 11:35A [...] a CBCT with the mask on the [employer] GK machine and this image will be [...] which included preparing to see the patient, cjot-qi-kjrc patient care, completing clinical documentation, obtaining and/or reviewing separately obtained history, performing a medically appropriate examination, counseling and educating the pat ient/family/caregiver, ordering medications, tests, or procedures, communicating with other HCPs (not separately reported), independently interpreting results (not separately reported), communicatingresults to the patient/family/caregiver, and care coordination (not separately reported). Gurpreet Beckwith DO, PhD cc: Ben Licona- muna toro documented in this encounterPremier Health Miami [facility]07-31-2023 Evaluation note* Encounter Date Diagnosis Assessment Notes Treatment Notes Treatment Clinical Notes Oct, Screen for colon cancer (ICD-10 - Z12.11) [employer] Other 07-19-2023 NoteHNO ID: [id number] Author: Luis Licona MD Service: ? Author [...] resident's medical decisio (more content not included)... [facility]07-19-2023 History of Present illness Narrative* Luis Licona MD - 10/19/2022 4:30 PM EDT Radiation Oncology - Follow Up Note [facility] DISTANCE HEALTH VISIT This visit is [...] Luis Licona MD cc: Debbie Echeverria [address] [address] documented in this encounterPremier Health Miami [facility]07-18-2023 NoteHNO ID: [id number] Author: Trista Bonilla APRN.CNP Service: ? Author [...] Total Time Spent: more than 20 minutes icjm-ra-dnir with the patient and over half the [...] DATE OF EXAM: Oct 17 2022 11:20AM [facility] 0295 - MRI BRAIN WO/W IVCON [...] with air-fluid level suggestive of acute/active sinusitis. Woodworking Machine Offbearer[facility] Transcribe Date/Time: Oct 17 2022 11:35A [...] Moves all extremities purp (more content not included)...[facility]07-18-2023 History of Present illness Narrative* Trista Bonilla APRN.SHERITA - 10/18/2022 10:30 AM EDT Elements of this note, including HPI, ROS, Physical Exam, Assessment and Plan were copied and pasted from 02/28/22 encounter with me. Updates have been made where noted and reflect current exam and medical decision making from October 18, 2022. Trista Bonilla APRN.SHERITA. [facility] DISTANCE HEALTH VISIT This visit is a Virtual MyChart video visit encounter which required patient- provider interaction for the medical decision making as documented below. Persons Present: patient Ben Cruz has consented to this distance health encounter. Total Time Spent: more than 20 minutes hvtm-oy-lsfz with the patient and over half the [...] with air-fluid level suggestive of acute/active sinusitis. Woodworking Machine Offbearer: [facility] Transcribe Date/Time: Oct 17 2022 11:35A [...] Cc: Dr. Luis Echeverria documented in this encounterPremier Health Miami Valley Hospital [facility]07-17-2023 NoteHNO ID: [id number] Author: Nidia Morelos RN Service: Nursing Author [...] Cruz DATE: October 17, 2022 TIME: 10:40 [facility]07-17-2023 NoteHNO ID: [id number] Author: Barbara Gaxiola wax pourer Service: Radiology Author Type: Denier Control Operator Type: Progress Notes Filed: 10/17/2022 10:54 AM [...] Site disposition Discontinued SIGNED BY: Barbara Gaxiola wax pourer October 17, 2022 10:53 [facility]07-17-2023 History of Present illness Narrative* Nidia Morelos [...] 2022 TIME: 10:40 AM * Barbara Gaxiola wax pourer - 10/17/2022 10:40 AM EDT Radiology Service [...] 17, 2022 10:53 AM documented in this encounterPremier Health Miami [facility] Hospital [facility]06-21-2023 Evaluation note* Encounter Date Diagnosis Assessment Notes [...] the berberine and get back to patient. [employer] Other 05-31-2023 Miscellaneous Notes* Telephone Encounter - [...] 09/05. Prescription should be sent to the [facility] in [facility]. [facility] [phone] [place] [address] documented in this encounterPremier Health Miami Valley Hospital South03-21-2023 NoteHNO ID: [id number] Author: Debbie Echeverria MD Service: ? Author Type: Physician Type: Progress Notes Filed: 06/21/2022 11:09 AM Note Text: June 21, 2022 DXN: Resected T4aN0 desmoplastic melanoma. The lesion was about 4.5mm located on her back with 2 negative SLNs (left axilla). There was no reported neurtropism and only one mitotic figure. Margins were negative. Declined an adjuvant trial in mineral. Baseline imaging today is negative CC: Melanoma [...] with more than 50% of the total ejkx-rc-qfyk time of the visit in counseling / coordination of care. Debbie Echeverria, [facility]03-21-2023 History of Present illness Narrative* Debbie Echeverria MD - 06/21/2022 11:08 AM EDT June 21, 2022 DXN: Resected T4aN0 desmoplastic melanoma. The lesion was about 4.5mm located on her back with 2 negative SLNs (left axilla). There was no reported neurtropism and only one mitotic figure. Margins were negative. Declined an adjuvant trial in mineral. Baseline imaging today is negative CC: Melanoma [...] with more than 50% of the total qvcs-xr-ssto time of the visit in counseling / coordination of care. Debbie Echeverria MD documented in this encounterPremier Health Miami Valley Hospital [facility]03-21-2023 Nurse Note* Vanessa Giang LPN - 06/21/2022 10:29 AM EDT Additional intake questions: Has the patient had fever, nausea, vomiting, diarrhea, constipation, fatigue for > 1 week? Yes, fatigue and Provider Notified Does the patient have a decreased appetite? No Does patient want to see a Lining Printer? No (yes to any of above refer patient to schedulers for dietitian appointment) ) Does patient have any new or increased numbness or tingling of extremities? No Is patient interested in fertility information? NA Does patient need any prescription refills? No Does patient have an advanced directive in place? No, Patient refused referral to Social Work or Resource Center documented in this encounterPremier Health Miami [facility] Hospital [facility]11-28-2022 NoteHNO ID: [id number] Author: Trista Bonilla APRN.BIOINFORMATICIST Service: ? Author Type: Nurse Practitioner Type: Progress Notes Filed: 03/01/2022 9:23 AM Note Text: [facility] DISTANCE HEALTH VISIT This visit is a Virtual MyChart video visit encounter which required patient-provider interaction for the medical decision making as documented below. Persons Present: patient Ben Cruz has consented to this distance health encounter. 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 She denies focal weakness, dizziness, gait instability, or seizures. Data Reviewed: MRI Report MRI BRAIN WO/W IVCON Exam End: 02/23/2022 11:31 AM (Final result) Narrative: * * *Final Report* * * DATE OF EXAM: Feb 23 2022 11:31AM [facility] 0295 - MRI BRAIN WO/W IVCON [...] unremarkable MRI brain with and without contrast. Woodworking Machine Offbearer[facility] Transcribe Date/Time: Feb 23 2022 11:50A [...] Coughing noted :No A (more content not included)...[facility]11-28-2022 History of Present illness Narrative* Trista Bonilla APRN.[facility] - 02/28/2022 10:30 AM EST [facility] DISTANCE HEALTH VISIT This visit [facility] encounter which required patient- provider interaction for the medical decision making as documented below. Persons Present: patient Ben Cruz has consented to this distance health encounter. 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 She denies focal weakness, dizziness, gait instability, or seizures. Data Reviewed: MRI Report MRI BRAIN WO/W IVCON Exam End: 02/23/2022 11:31 AM (Final result) Narrative: * * *Final Report* * * DATE OF EXAM: Feb 23 2022 11:31AM [facility] 0295 - MRI BRAIN WO/W IVCON [...] unremarkable MRI brain with and without contrast. Woodworking Machine Offbearer: [employer] Transcribe Date/Time: Feb 23 2022 11:50A [...] She will continue to get MRI at [facility] and present in VV follow up. Trista Bonilla APRN.BIOINFORMATICIST Cc: Dr. Luis Echeverria documented in this encounterPremier Health Miami [facility]11-23-2022 NoteHNO ID: [id number] Author: MANISH Hubbard Service: Radiology Author Type: Denier Control Operator Type: Progress Notes Filed: 02/23/2022 11:00 AM [...] BY: MANISH Hubbard February 23, 2022 10:57 [facility]11-23-2022 NoteHNO ID: [id number] Author: Nidia Morelos RN Service: Nursing Author [...] Cruz DATE: February 23, 2022 TIME: 10:33 [facility]11-23-2022 History of Present illness Narrative* Nidia Morelos [...] 23, 2022 10:57 AM documented in this encounterPremier Health Miami [facility]09-20-2022 History of Present illness Narrative* Debbie Echeverria MD - 12/21/2021 1:37 PM EDT December 21, 2021 DXN: Resected T4aN0 desmoplastic melanoma. The lesion was about 4.5mm located on her back with 2 negative SLNs (left axilla). There was no reported neurtropism and only one mitotic figure. Margins were negative. Declined an adjuvant trial in mineral. Baseline imaging today is negative CC: Melanoma [...] with more than 50% of the total acgo-zx-lumv time of the visit in counseling / coordination of care. Debbie Echeverria MD documented in this encounterPremier Health Miami [facility]09-20-2022 Nurse Note* Tiny Mckoy LPN - 12/21/2021 1:20 PM EDT Additional intake questions: Has the patient had fever, nausea, vomiting, diarrhea, constipation, fatigue for > 1 week? Yes, fatigue Does the patient have a decreased appetite? No Does patient want to see a Lining Printer? No (yes to any of above refer patient to schedulers for dietitian appointment) ) Does patient have any new or increased numbness or tingling of extremities? No Is patient interested in fertility information? No Does patient need any prescription refills? No Does patient have an advanced directive in place? No, Patient refused referral to Social Work or Resource Center documented in this encounterPremier Health Miami [facility]09-02-2022 Miscellaneous Notes* Telephone Encounter - Jaylene Jacobson RN - 12/03/2021 12:49 PM EDT Patient needs a follow up visit (no labs or scans) around 12/25/21. She accepted a visit on 12/21 at 1:30 pm. Jaylene Jacobson RN * Telephone Encounter - Mary Lindsay - 12/01/2021 4:45 PM EDT Ben Cruz is calling Debbie Echeverria MD today regarding 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 Patient called scheduling to schedule 6 mo follow up but was unable to get thru, so calling office for Dr. Echeverria to get it scheduled. Can she be called once appointment is made? Patient has been identified by name and birthdate. Requesting response back: [phone] (home) [phone] (cell) Mary Lindsay December 01, 2021 documented in [facility] History of Present illness Narrative* Luis Licona [...] an updated MRI in 6 months in [place] followed by a virtual visit for further meningioma surveillance, with additional surveillance plan to be developed thereafter. Zhanna Le MD Radiation Oncology Resident [id number] STAFF ADDENDUM I saw and evaluated the [...] brain. Luis Licona MD cc: Debbie Echeverria [id number] [address] [facility] [id number] documented in this encounter[facility] History of Present illness Narrative* Nidia Morelos [...] 23, 2021 12:14 PM documented in this encounter[facility] History of Present illness Narrative* Nazanin Moncada [...] 2021 TIME: 10:22 AM * Barbara Gaxiola, wax pourer - 06/16/2021 10:00 AM EDT Radiology Service [...] 16, 2021 10:35 AM documented in this encounter[facility] History of Present illness Narrative* Barbara Gaxiola [...] 2021 TIME: 11:13 AM [facility] No data available for this section General Surgery [place] Evaluation note* Diagnosis 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 [facility]* Diagnosis 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 documented [facility] note* Diagnosis Benign neoplasm of meninges (HCC)- Primary Benign neoplasm of cerebral meninges documented in [facility] note* Diagnosis 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) documented in this encounter [facility] noteNo [employer] Other Evaluation note* Diagnosis Meningioma (HCC)- Primary Benign neoplasm of cerebral meninges documented [facility] note* Diagnosis Meningioma (HCC)- Primary Benign neoplasm of cerebral meninges documented in this encounter [facility] note* Diagnosis Benign neoplasm of meninges (HCC)- Primary Benign neoplasm of cerebral meninges documented in this encounter [facility] note* Diagnosis Benign neoplasm of meninges (HCC)- Primary Benign neoplasm of cerebral meninges documented in this encounter [facility] note* Diagnosis Benign neoplasm of meninges (HCC)- Primary Benign neoplasm of cerebral meninges documented in this encounter [facility] note* Diagnosis Benign neoplasm of meninges (HCC)- Primary Benign neoplasm of cerebral meninges documented in this encounter [facility] note* Diagnosis 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 documented in this encounter [facility] note* Diagnosis 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 documented in this encounter [facility] note* Diagnosis 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 [facility] Diagnosis 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) Liver lesion Other specified disorders of liver documented in this encounter [facility] note* Diagnosis 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 documented in this encounter [facility] general Narrative - Reported* Type Description Date Medical History melanoma Surgical History laminectomy Surgical History c-sectionx 2 Surgical History hysterectomy Surgical History lump removed right wrist Surgical History melanoma removal [facility] [employer] Other Hismnpy general [facility] [employer] Other Hiszpnd general Narrative - Reported* Type Description Date Medical History melanoma Surgical History laminectomy Surgical History c-sectionx 2 Surgical History hysterectomy Surgical History lump removed right wrist Surgical History melanoma removal Surgical History Colonoscopy 03/2023 [facility] [employer] Other Hospital Discharge instructions No data available for this section General Surgery [place] Progress note No data available for this section General Surgery [place] Reason for Referral Specialty Diagnoses / Procedures Referred By Contac t Referred To Contact MR IMAGING Diagnoses Benign neoplasm of meninges (HCC) Procedures MRI BRAIN WO/W IVCON MRI BRAIN BRAIN STEM W/O W/[place] [address] [place] [address] Mr Imaging Referral ID Status Reason Start Date Expiration Date Visits Requested Visits Authorized [id number] Pending Review Auto-Generat ed Referral 08/23/2021 09/22/2022 1 1 Specialty Diagnoses / Procedures Referred By Contac t Referred To Contact MR IMAGING Diagnoses Benign neoplasm of meninges (HCC) Procedures MRI BRAIN WO/W IVCON MRI BRAIN BRAIN STEM W/O W/CONTRAST MATERIAL Trista Bonilla APRN.BIOINFORMATICIST [address] [place] [id number] Mr Imaging Referral ID Status Reason Start Date Expiration Date Visits Requested Visits Authorized [id number] Pending Review Auto-Generat ed Referral 08/29/2022 03/31/2023 1 1 Reason *FU 11/15 screenin g colonoscopy Diagnosis 1 Screen for colon can cer (Z12.11) Referral Organization [facility] elias Referring Provider First Name Lissett Referring Provider Last Name Gary Referring Provider Specialty Family Medi cine Referred Organization [facility] Referred Provider Tucker Ann Referred Address [address] [place], [place],[address] Referred Provider Specialty General Surg katelyn Referral Priority Routine General Notes Louise Livingston 10:47:05 AM >received today, attachments made, notes locked, referral faxed Clinical Notes F: [id number] Specialty Diagnoses / Procedures Referred By Contac t Referred To Contact MR IMAGING Diagnoses Benign neoplasm of meninges (HCC) Procedures MRI BRAIN LOCALIZATION W IVCON UNLISTED MAGNETIC RESONANCE PROCED Gurpreet Beckwith DO, PhD [address] [facility] [address] [place] [id number] Mr Imaging [place] [address] Referral ID Status Reason Start Date Expiration Date V isits Requested Visits Authorized [id number] Closed Auto-Generate d Referral 12/06/2022 1 1 Specialty Diagnoses / Procedures Referred By Contac t Referred To Contact MR IMAGING Diagnoses Benign neoplasm of meninges (HCC) Procedures MRI BRAIN WO/W IVCON MRI BRAIN BRAIN STEM W/O W/[place] [address] [place] [address] Mr Imaging [place] [address] Referral ID Status Reason Start Date Expiration Date V isits Requested Visits Authorized [id number] Closed Auto-Generate d Referral 06/21/2021 09/18/2021 1 1 Specialty Diagnoses / Procedures Referred By Contac t Referred To Contact MR IMAGING Diagnoses 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) Liver lesion Procedures MRI LIVER WO/W IVCON MRI ABDOMEN W/O & W/[place] [address] [place] [address] Mr Imaging [facility] Referral ID Status Reason Start Date Expiration Date V isits Requested Visits Authorized [id number] Closed Auto-Generate d Referral 05/20/2021 07/11/2021 1 1 Specialty Diagnoses / Procedures Referred By Selene t Referred To Contact MR IMAGING Diagnoses Benign neoplasm of meninges (HCC) Procedures MRI BRAIN WO/W IVCON MRI BRAIN BRAIN STEM W/O W/CONTRAST MATERIAL Trista Bonilla APRN.BIOINFORMATICIST [address] [place] [address] [place] [address] Referral ID Status Reason Start Date Expiration Date V isits Requested Visits Authorized [id number] Closed Auto-Generate d Referral 08/29/2022 03/31/2023 1 1 Referral ID Status Reason Start Date Expiration Date V isits Requested Visits Authorized [id number] Closed Auto-Generate d Referral 08/23/2021 03/20/2022 1 [...] or prosecute any alcohol or drug abuse patient.[facility] SouthIn the event this information is protected by the Federal Confidentiality of Alcohol and Drug Abuse Patient Records regulations: The Federal rules restrict any use of the information to criminally investigate or prosecute any alcohol or drug abuse patient.[facility] SouthIn the event this information is protected by the Federal Confidentiality of Alcohol and Drug Abuse Patient Records regulations: The Federal rules restrict any use of the information to criminally investigate or prosecute any alcohol or drug abuse patient.[facility] SouthIn the event this information is protected by the Federal Confidentiality of Alcohol and Drug Abuse Patient Records regulations: The Federal rules restrict any use of the information to criminally investigate or prosecute any alcohol or drug abuse patient.[facility] SouthIn the event this information is protected by the Federal Confidentiality of Alcohol and Drug Abuse Patient Records regulations: The Federal rules restrict any use of the information to criminally investigate or prosecute any alcohol or drug abuse patient.[facility] SouthIn the event this information is protected by the Federal Confidentiality of Alcohol and Drug Abuse Patient Records regulations: The Federal rules restrict any use of the information to criminally investigate or prosecute any alcohol or drug abuse patient.[facility] SouthIn the event this information is protected by the Federal Confidentiality of Alcohol and Drug Abuse Patient Records regulations: The Federal rules restrict any use of the information to criminally investigate or prosecute any alcohol or drug abuse patient.[facility] SouthIn the event this information is protected by the Federal Confidentiality of Alcohol and Drug Abuse Patient Records regulations: The Federal rules restrict any use of the information to criminally investigate or prosecute any alcohol or drug abuse patient.[facility] SouthIn the event this information is protected by the Federal Confidentiality of Alcohol and Drug Abuse Patient Records regulations: The Federal rules restrict any use of the information to criminally investigate or prosecute any alcohol or drug abuse patient.[facility] SouthIn the event this information is protected by the Federal Confidentiality of Alcohol and Drug Abuse Patient Records regulations: The Federal rules restrict any use of the information to criminally investigate or prosecute any alcohol or drug abuse patient.[facility] SouthIn the event this information is protected by the Federal Confidentiality of Alcohol and Drug Abuse Patient Records regulations: The Federal rules restrict any use of the information to criminally investigate or prosecute any alcohol or drug abuse patient.[facility] SouthIn the event this information is protected by the Federal Confidentiality of Alcohol and Drug Abuse Patient Records regulations: The Federal rules restrict any use of the information to criminally investigate or prosecute any alcohol or drug abuse patient.[facility] SouthIn the event this information is protected by the Federal Confidentiality of Alcohol and Drug Abuse Patient Records regulations: The Federal rules restrict any use of the information to criminally investigate or prosecute any alcohol or drug abuse patient.[facility] SouthIn the event this information is protected by the Federal Confidentiality of Alcohol and Drug Abuse Patient Records regulations: The Federal rules restrict any use of the information to criminally investigate or prosecute any alcohol or drug abuse patient.[facility] SouthIn the event this information is protected by the Federal Confidentiality of Alcohol and Drug Abuse Patient Records regulations: The Federal rules restrict any use of the information to criminally investigate or prosecute any alcohol or drug abuse patient.[facility] SouthIn the event this information is protected by the Federal Confidentiality of Alcohol and Drug Abuse Patient Records regulations: The Federal rules restrict any use of the information to criminally investigate or prosecute any alcohol or drug abuse patient.[facility] SouthIn the event this information is protected by the Federal Confidentiality of Alcohol and Drug Abuse Patient Records regulations: The Federal rules restrict any use of the information to criminally investigate or prosecute any alcohol or drug abuse patient.[facility] SouthIn the event this information is protected by the Federal Confidentiality of Alcohol and Drug Abuse Patient Records regulations: The Federal rules restrict any use of the information to criminally investigate or prosecute any alcohol or drug abuse patient.[facility] SouthIn the event this information is protected by the Federal Confidentiality of Alcohol and Drug Abuse Patient Records regulations: The Federal rules restrict any use of the information to criminally investigate or prosecute any alcohol or drug abuse patient.[facility] SouthIn the event this information is protected by the Federal Confidentiality of Alcohol and Drug Abuse Patient Records regulations: The Federal rules restrict any use of the information to criminally investigate or prosecute any alcohol or drug abuse patient.[facility] SouthIn the event this information is protected by the Federal Confidentiality of Alcohol and Drug Abuse Patient Records regulations: The Federal rules restrict any use of the information to criminally investigate or prosecute any alcohol or drug abuse patient.[facility] SouthIn the event this information is protected by the Federal Confidentiality of Alcohol and Drug Abuse Patient Records regulations: The Federal rules restrict any use of the information to criminally investigate or prosecute any alcohol or drug abuse patient.[facility] SouthIn the event this information is protected by the Federal Confidentiality of Alcohol and Drug Abuse Patient Records regulations: The Federal rules restrict any use of the information to criminally investigate or prosecute any alcohol or drug abuse patient.[facility] SouthIn the event this information is protected by the Federal Confidentiality of Alcohol and Drug Abuse Patient Records regulations: The Federal rules restrict any use of the information to criminally investigate or prosecute any alcohol or drug abuse patient.[facility] SouthIn the event this information is protected by the Federal Confidentiality of Alcohol and Drug Abuse Patient Records regulations: The Federal rules restrict any use of the information to criminally investigate or prosecute any alcohol or drug abuse patient.[facility] SouthIn the event this information is protected by the Federal Confidentiality of Alcohol and Drug Abuse Patient Records regulations: The Federal rules restrict any use of the information to criminally investigate or prosecute any alcohol or drug abuse patient.[facility] Reason for Visit (unrecogniz ed section and [...] COMPLEX CRANIAL LESION [facility] [address] [address] Referral ID Status Reason Start Date Expiration Date Visits Re quested Visits Authorized [id number] [address] Specialty Diagnoses / Procedures Referred By Contac t Referred To Contact ADMITTING Diagnoses Benign neoplasm of meninges (HCC) Procedures RADIATION DELIVERY STEREOTACTIC CRANIAL COBALT STEREOTACTIC RADIOSURGERY 1 COMPLEX CRANIAL LES RADIATION [place] STEREOTACTIC RADIOSURGERY (SRS) [place] CRANIAL LESION(S) 1 SESSION MULTI-SOURCE COBALT STEREOTACTIC RADIOSURGERY 1 COMPLEX CRANIAL LESION [facility] [address] [address] Reason Comments Recheck Reason Comments 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 Reason Comments Established Patient Reason Comments Established Patient Reason Comments Recheck Reason Comments Consult GK consult for LF me ningioma Reason Comments 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 Reason Comments Procedure GKRS Reason Comments Radiology MRI Specialty Diagnoses / Procedures Referred By Contac t Referred To Contact MR IMAGING Diagnoses 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) New daily persistent headache Other headache syndrome Procedures MRI BRAIN WO/W IVCON MRI BRAIN BRAIN STEM W/O W/[place] [address] [place] [address] Mr Imaging [place] [address] Referral ID Status Reason Start Date Expiration Date V isits Requested Visits Authorized [id number] Closed Auto-Generate d Referral 04/29/2021 06/13/2021 1 1 Specialty Diagnoses / Procedures Referred By Contac t Referred To Contact MR IMAGING Diagnoses Benign neoplasm of meninges (HCC) Procedures MRI BRAIN WO/W IVCON MRI BRAIN BRAIN STEM W/O W/[place] [address] [place] [id number] Mr Imaging [place] [address] Referral ID Status Reason Start Date Expiration Date V isits Requested Visits Authorized [id number] Closed Auto-Generate d Referral 06/21/2021 09/18/2021 1 1 Specialty Diagnoses / Procedures Referred By Contac t Referred To Contact MR IMAGING Diagnoses 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) Liver lesion Procedures MRI LIVER WO/W IVCON MRI ABDOMEN W/O & W/[place] [address] [place] [id number] Mr Imaging [place] [address] Referral ID Status Reason Start Date Expiration Date V isits Requested Visits Authorized [id number] Closed Auto-Generate d Referral 05/20/2021 07/11/2021 1 1 Specialty Diagnoses / Procedures Referred By Contac t Referred To Contact MR IMAGING Diagnoses Benign neoplasm of meninges (HCC) Procedures MRI BRAIN WO/W IVCON MRI BRAIN BRAIN STEM W/O W/CONTRAST MATERIAL Trista Bonilla APRN.CNP [address] [place] [phone] Mr Imaging [place] [address] Referral ID Status Reason Start Date Expiration Date V isits Requested Visits Authorized [id number] Closed Auto-Generate d Referral 08/29/2022 03/31/2023 1 1 Referral ID Status Reason Start Date Expiration Date V isits Requested Visits Authorized [id number] Closed Auto-Generate d Referral 08/23/2021 03/20/2022 1 1 Reason Comments Gamma Knife Follow-up INFORMATION SOURCE (unrecogn ized section and content) DATE CREATED AUTHOR 06/10/2022 [facility] DATE CREATED AUTHOR AUTHOR'S ORGANIZ ATION 09/15/2022 [facility] DATE CREATED AUTHOR AUTHOR'S ORGANIZ ATION 02/04/2023 [facility] DATE CREATED AUTHOR AUTHOR'S ORGANIZ ATION 02/08/2023 [facility] DATE CREATED AUTHOR AUTHOR'S ORGANIZ ATION 03/11/2023 Ritesh Pickett [facility] Care Teams (unrecognized sec tion and content) Cereal Maker Relationship Specialty Start Date End Date Lissett Vega MD [address] [place] [facility] [id number] PCP - General Family Medicine 01/17/23 Cereal Maker Relationship Specialty Start Date End Date Lissett Vega MD [address] [place] [facility] [address] PCP - General Family Medicine 01/17/23 Cereal Maker Relationship Specialty Start Date End Date Lissett Vega MD [address] [place] [facility] [address] PCP - General Family Medicine 01/17/23 Cereal Maker Relationship Specialty Start Date End Date Lissett Vega MD [address] [place] [facility] [address] PCP - General Family Medicine 01/17/23 Cereal Maker Relationship Specialty Start Date End Date Lissett Vega MD [address] [place] [facility] [address] PCP - General Family Medicine 01/17/23 Cereal Maker Relationship Specialty Start Date End Date Lissett Vega MD [address] [place] [facility] [address] PCP - General Family Medicine 01/17/23 [...] BE BASED ON THE PRIMARY CLINICAL RECORDS. [facility] [employer] [facility]. provides no warranty or guarantee of the accuracy or completeness of information in this document.
== END 2023-03-22 08:57 | disposition home or self-care (01) ==
PROVIDERS: PCP Family Medicine; Visit Provider Podiatrist Foot & Ankle Surgery
DX: Z01.810 Encounter for preprocedural cardiovascular examination (principal); M21.622 Bunionette of left foot; M76.72 Peroneal tendinitis, left leg
CPT/HCPCS: 93005

== ENCOUNTER 2023-03-22 09:53 | Outpatient (OUT) | payer OTHER, SELFPAY ==
--- OUTSIDE RECORDS SUMMARY | 2023-03-22 09:57 | XMS_ITS | CCD ---
Author Name Unknown Address [address] [place] [address] Organization [facility] Care Team Providers [facility] Clinical Marketer Name Role Phone Unavailable Primary Care Provider Jacqueline VEGA, DR LISSETT Fung Admitting Unavailable VEGA, DR LISSETT Fung Attending Unavailable VEGA, DR LISSETT Fung Primary Care Unavailable [facility], DR MONCADA Consulting Unavailable VEGA, DR [...] Unavailable Lissett Vega MD Primary Care Provider [phone] GURPREET BECKWITH Attending Unavailable GURPREET BECKWITH Referring Unavailable GURPREET BECKWITH Admitting Unavailable LISSETT VEGA Primary Care Unavailable GURPREET BECKWITH Attending Unavailable GURPREET BECKWITH Referring Unavailable GURPREET BECKWITH Admitting Unavailable LUIS LICONA Referring Unavailable DEBBIE ECHEVERRIA Referring Unavailable TRISTA BONILLA Attending Unavailable DEBIBE ECHEVERRIA Attending Unavailable DEBBIE ECHEVERRIA Referring Unavailable [...] Unavailable VEGA, LISSETT E Primary Care Unavailable BECWKITH, GURPREET Admitting Unavailable BECKWITH, GURPREET Attending Unavailable BECKWITH, GURPREET Referring Unavailable VEGA, LISSETT E Primary Care Unavailable ASHVIN VEGAIA Primary Care Physician [phone] Debbie DE LOS SANTOS Attending Unavailable Allergies Allergy Classification Reported Allergen(s) Allergy Type Date of Onset Reaction(s) Facility (3 sources) patient allergy list reviewed by nurse or physicia Propensity to adverse reactions Comment:Done Delivery[employer]in Other (3 sources) Allergies Reconciled Propensity to adverse reactions Unknown [employer] Other (1 source) No Known Medication Allergies; Translations: [No Known Medication Allergies] Propensity to adverse reactions (disorder) [facility] Repository Medications Current Medications Medication Drug [...] Facil ity Outside Colonoscopyon 2022 Outside Colonoscopy [id number]#1.00TIFF [facility] Reminderson 03-09-2023 Reminders - From: Veronica Jack LPN To: N - Clinical; Sent: 03/09/2023 13:42:54 EST Show up: 02/06/2033 07:00:00 EST Subject: colonoscopy recall Due Date/Time: 03/08/2033 07:00:00 EST Reminder/Recall Patient due for screening colonoscopy 03/08/2033. [facility] Consent for Procedure/Surger yon 02-21-2023 Consent for Procedure/Surgery [id number]#1.00TIFF [facility] Facesheeton 02-20-2023 Facesheet [id number]#1.00T IFF [facility] Ambulatory Visit Summaryon 1 04-19-2022 Ambulatory Visit Summary BEN RCUZ :1975 Visit Date:02/17/2023 Ambulatory Visit Instructions Your [...] you for choosing us for your care. [facility] Louise 02-07-2023 [facility] Telephone ([facility]) BEN CRUZ ([id number]) 1975 F Date Time Provider Department 02/07/23 JOHANN HENRIQUEZ [facility] During your visit today, we recorded [...] Encounter Status:Closed by JOHANN HENRIQUEZ on 02/07/23 [facility] BEN CRUZ ([id number]) 1975 F Date Time Provider Department 02/06/23 JOHANN HENRIQUEZ [facility] During your visit today, we recorded the following information about you: Johann Henriquez RN 02/06/2023 1:20 PM Signed Calling Ben for post-GKRS follow-up. Unable to reach at this time. Left voicemail. Johann Henriquez RN 02/07/2023 1:19 PM Signed 2nd attempt to reach out, patient unavailable. Will send [facility] message with contact information to call if [...] Encounter Status:Closed by JOHANN HENRIQUEZ on 02/07/23 [facility] CNKashifn 01-27-2023 CNOP Operative Note (Enc) (NSCAMN) Encounter Status:Closed by GURPREET BECKWITH on 01/27/23 [facility] Operative Note (Enc) (NSCAMN) Encounter Status:Closed by GURPREET BECKWITH on 01/27/23 [facility] CNOVon 01-27-2023 CNOV Office Visit (NSCAMN ) BEN CRUZ ([id number]) 1975 F Date Time Provider Department 01/27/23 [...] 7.1 AL (more content not included)... Normal [facility] CNOV Office Visit (APRISHBrittani ) BEN CRUZ ([id number]) 1975 F Date Time Provider Department 01/27/23 8:30 AM MASK PLACEMENT NEULee [facility] During your visit today, we recorded [...] Patient's Age: 47 Menstruation Status: Hysterectomy 2019 [facility] Results: N/A test not performed QC: Yes, testing is valid (or protocol followed for invalid testing). Reference range: Normal Value = Negative for hCG. POC performed by: Gayle Acevedo RN 0947 4 mg Decadron PO given prior to GKRS per order of Dr. Virgil Beckwith 0946 GKRS start time. 1016 GKRS end time. 1025 Discharge instructions given to patient; instructions reviewed by this RN; patient/family verbalized understanding; patient discharged via/with BIGG Segura Kaitlin, RN 01/27/2023 8:35 AM Addendum [facility] Gamma Knife Center Discharge Instructions As with [...] a physician or hospital other than the [facility] with any problem related to [...] may your physician, Dr. Virgil Beckwith at [phone] Monday through Monday 8:00 am to 5:00 pm, or call the Gamma Knife nurse Monday through Monday 8:00 am to 4:00 pm at [phone]. In the evening or on weekends, call [phone] or toll-free [phone] and ask the metalizing machine operator to page your neurosurgeon's resident transition social worker. Referring Provider: GURPREET BECKWITH [[id number]] Allergies As [...] [D32.9] 01/27/2023 Other instructions from your clinician: [facility] Gamma Knife Center Discharge Instructions As with [...] were required COMPARISON: Concurrent brain MRI RESULT: Strategic Marketing Specialist (topogram) images: No additional findings. Post-operative change: [...] OF EXTRA-AXIAL ENHANCING TISSUE SEEN ON MRI Shampoo Person: TORI Transcribe Date/Time: Jan 27 2023 8:21A Dictated by : ESTUARDO WHALEY MD This examination was interpreted and the report reviewed and electronically signed by: ESTUARDO WHALEY MD on Jan 27 2023 8:23AM EST [id number] Normal [facility] MRI BRAIN LOCAL W IVCONon MRI BRAIN [...] FRONTAL LOBE, UNCHANGED GOING BACK TO 06/01/2021 Shampoo Person: TORI Transcribe Date/Time: Jan 27 2023 8:08A Dictated by : ESTUARDO WHALEY MD This examination was interpreted and the report reviewed and electronically signed by: ESTUARDO WHALEY MD on Jan 27 2023 8:20AM EST [id number] Normal [facility] MRI BRAIN LOCALIZATION W IVC ONon 01-27-2023 [facility] Physician Referralon 023 Physician Referral [id number] Normal [facility] Physician Referralon 2 023 Physician Referral [id number]#1.00TIFF Deanna Awad [facility] CNOVSPon 12-22-2022 CNOVSP Visit (SP) Office ([facility]3) SHARONABEN ([id number]) 1975 F Date Time Provider Department 12/22/22 [...] were negative. Declined an adjuvant trial in [place]. Baseline imaging today is negative CC: Melanoma [...] No Does patient want to see a Single Stayer Operator? No (yes to any of above refer [...] for Encounter Date Provider Department Center 12/22/2022 [id number] ECHEVERRIA [facility] [place] Prescriptions as [...] No Does patient want to see a Single Stayer Operator? No (yes to any of above refer patient to schedulers for dietitian appointment) ) Does patient have any new or increased numbness or tingling of extremities? No Is patient interested in fertility information? No Does patient need any prescription refills? No Does patient have an advanced directive in place? No, Patient refused referral to Social Work or Resource Center [facility] Louise 11-15-2022 [facility] BEN CRUZ ([id number]) 1975 F Date Time Provider Department 11/15/22 BETZY HEARD [facility] During your visit today, we recorded the following information about you: Betzy Heard RN 11/15/2022 2:04 PM Signed Calling Ben to follow up on [facility] message about scheduling gamma knife for 01/27/2023 No answer, left message stating that I'll go ahead and place the GK orders. Reminded to disregard ANY appointment times she sees in [facility], any automated text reminders or automated phone calls for 01/27/23 She will receive a call from the GK nurse or radiation therapist the day before with her arrival time. If she has any questions, I left office phone # for call back or she can send a [facility] message. 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 Problem List As Of Date: 11/15/2022 (None) Encounter Status:Closed by BET[facility]Y HEARD [facility] BEN CRUZ ([id number]) 1975 F Date Time Provider Department 10/20/22 BETZY HEARD [facility] During your visit today, we recorded the following information about you: Betzy Heard, RN 10/20/2022 11:56 AM Signed Time Frame: As soon as can be scheduled - can be virtual or in clinic Orders: n/a Provider: Tang Referring: Pelon Diagnosis: meningioma Allergies As of Date: 10/20/2022 (No Known Allergies) Date Reviewed: 10/19/2022 Reviewed by: Trista Bonilla APRN.[facility] - Fully Assessed Reason for Visit: GIN - new pt consult with Dr. Beckwith [Other] Prescriptions as of 11/10/2022 - meloxicam (MOBIC) 15 mg tablet - inclisiran (LEQVIO) 284 mg/1.5 mL injection - omeprazole (PRILOSEC) 20 mg capsule Take 20 mg by mouth once daily. Problem List As Of Date: 10/20/2022 (None) Encounter Status:Closed by BETZY HEARD on 11/10/22 [facility] MRI BRAIN WO/W IVCONon 10-17 MRI BRAIN WO/W IVCON * * *Final Report* * * DATE OF EXAM: Oct 17 2022 11:20AM [facility] 0295 - MRI BRAIN WO/W IVCON / [...] with air-fluid level suggestive of acute/active sinusitis. Shampoo Person: TORI Transcribe Date/Time: Oct 17 2022 11:35A Dictated by : CHUCKY BRAY MD This examination was interpreted and the report reviewed and electronically signed by: CHUCKY BRAY MD on Oct 17 2022 11:45AM EST [id number] Normal [facility] Clin ic Complete Blood Count Auto Di ffon 09-12-2022 Basophils (Bld) [#/Vol] 0.1 10*3/uL Normal 0.0-0.2 [facility] Comment on above: Result Comment: PERF ORMED BY: [address] [place] [address] PATHOLOGIST WOUND NURSE ARNULFO STYLES M.D. Performed By: #### C BC #### [facility] [address] Basophils/100 WBC (Bld) 0.7 % Normal . [facility] Comment on above: Performed By: #### C BC #### [address] Eosinophils (Bld) [#/Vol] 0.2 10*3/uL Normal 0.0-0.45 [facility] Comment on above: Performed By: #### C BC #### [address] Eosinophils/100 WBC (Bld) 2.7 % Normal . [facility] Comment on above: Performed By: #### C BC #### [address] Erythrocyte distribution wid th (RBC) [Ratio] 12.9 % Normal 11.9-15.3 [facility] Comment on above: Performed By: #### C BC #### [address] Hematocrit (Bld) [Volume fraction] 41.8 % Normal 34.0-46.4 [facility] Comment on above: Performed By: #### C BC #### [address] Hemoglobin (Bld) [Mass/Vol] 14.3 g/dL Normal 11.8-15. 4 [facility] Comment on above: Performed By: #### C BC #### [address] Lymphocytes (Bld) [#/Vol] 2.0 10*3/uL Normal 1.00-4.8 [facility] Comment on above: Performed By: #### C BC #### [address] Lymphocytes/100 WBC (Bld) 25.3 % Normal . [facility] Comment on above: Performed By: #### C BC #### [address] MCH (RBC) [Entitic mass] 29.8 pg Normal 24.7-34.3 [facility] Comment on above: Performed By: #### C BC #### [facility] [address] MCV (RBC) [Entitic vol] 87.2 fL Normal 80-100 F [facility] Comment on above: Performed By: #### C BC #### [facility] [address] Mean Corpuscular HGB Conc 34.2 g/dL Normal 32.0-35.0 [facility] Comment on above: Performed By: #### C BC #### [facility] [address] [place] [address] [place] Monocytes (Bld) [#/Vol] 0.7 10*3/uL Normal 0.0-0.8 [facility] Comment on above: Performed By: #### C BC #### [facility] [address] [place] [address] [place] Monocytes/100 WBC (Bld) 9.1 % Normal . [facility] Comment on above: Performed By: #### C BC #### [facility] [address] [place] [address] [place] Neutrophils (Bld) [#/Vol] 4.8 10*3/uL Normal 1.8-7.7 [facility] Comment on above: Performed By: #### C BC #### [facility] [address] [place] [address] [place] Neutrophils/100 WBC (Bld) 62.2 % Normal . [facility] Comment on above: Performed By: #### C BC #### [facility] [address] NRBC% 0.4 /100{WBC} Normal 0-0.5 [facility] Comment on above: Performed By: #### C BC #### [facility] [address] Platelet mean volume (Bld) [Entitic vol] 7.5 fL Normal 6.3-10.7 [facility] Comment on above: Performed By: #### C BC #### [facility] [address] [place] [address] [place] Platelets (Bld) [#/Vol] 225 10*3/uL Normal 150-450 [facility] Comment on above: Performed By: #### C BC #### [facility] [address] RBC (Bld) [#/Vol] 4.80 10*6/uL Normal 3.60-5.00 [facility] Comment on above: Performed By: #### C BC #### [facility] [address] WBC (Bld) [#/Vol] 7.7 10*3/uL Normal 3.8-11.6 [facility] Comment on above: Performed By: #### C BC #### [address] XR chest 2V*on 09-12-2022 XR chest 2V* [facility] [place] [address] [place] [address] XRay Report Signed Patient: Ben Cruz MR#: [id number] 3 : 1975 Acct:[id number] Age/Sex: 47 / F ADM Date: 09/12/22 Loc: [place] Room: Type: [facility] Attending Dr: Taz Rossi DPM Copies to: [...] Woods II, MD 09/12/221651 Signed By: 09/12/221652 [facility] Louise 08-31-2022 [facility] Telephone ([facility]) BEN CRUZ ([id number]) 1975 F Date Time Provider Department 08/31/22 LUIS LICONA During your visit today, we recorded the following information about you: Adriana Brown 08/31/2022 4:12 PM Signed Patient called in to ask for a prescription of Atavan sent to her local [facility] prior to her scheduled MRI on 09/05. Prescription should be sent to the [facility] in [place] on [facility]. [facility] [phone] [place] [address] Trista Bonilla APRN.COUNTER CHECKER 08/31/2022 4:35 PM Signed Ativan sent to preferred pharmacy per patient request prior to MRI. PDMP website checked and validated. All prescriptions have been APPROPRIATELY filled. No suspicious activity was identified. 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 No (yes to any of above refer [...] were negative. Declined an adjuvant trial in [place]. Baseline imaging today is negative CC: Melanoma [...] with more than 50% of the total cxel-xl-pneh time of the visit in counseling / coordination of care. Debbie Echeverria MD Referring Provider: DEBBIE ECHEVERRIA [[id number]] Allergies As of Date: 06/21/2022 (No Known [...] for Encounter Date Provider Department Center 06/21/2022 [id number] ECHEVERRIA [facility]3 [place] Prescriptions as [...] No Does patient want to see a Single Stayer Operator? No (yes to any of above refer [...] DATE OF EXAM: Feb 23 2022 11:31AM [facility] 0295 - MRI BRAIN WO/W IVCON / [...] unremarkable MRI brain with and without contrast. Shampoo Person: TORI Transcribe Date/Time: Feb 23 2022 11:50A Dictated by : CARLITOS MCGUIRE MD This examination was interpreted and the report reviewed and electronically signed by: CARLITOS MCGUIRE MD on Feb 23 2022 11:55AM EST [id number] Normal [facility] CBC AUTO DIFFon 11-18-2021 BASO # 0.0 103/ul Normal 0.0-0.1 [facility] Comment on above: Performed By: #### H FPFCBC #### [facility] [address] [place] [address] Dr. Arcenio Billy Basophils/100 WBC (Bld) 0.4 % Normal 0.2-2.0 [facility] Comment on above: Performed By: #### H FPFCBC #### [facility] [address] [place] [address] Dr. Arcenio Billy EO # 0.2 103/ul Normal 0.0-0.7 [facility] Comment on above: Performed By: #### H FPFCBC #### [facility] [address] [place] [address] Dr. Arcenio Billy Eosinophils/100 WBC (Bld) 3.0 % Normal 0.9-7.0 [facility] Comment on above: Performed By: #### H FPFCBC #### [facility] [address] [place] [address] Dr. Arcenio Billy Erythrocyte distribution wid th (RBC) [Ratio] 12.1 % Normal 11.0-15.0 [facility] Comment on above: Performed By: #### H FPFCBC #### [facility] [address] [place] [address] Dr. Arcenio Billy Hematocrit (Bld) [Volume fraction] 43.1 % Normal 3 6.0-48.0 [facility] Comment on above: Performed By: #### H FPFCBC #### [facility] [address] [place] [address] Dr. Arcenio Billy Hemoglobin (Bld) [Mass/Vol] 14.1 g/dL Normal 12.0-16. 0 [facility] Comment on above: Performed By: #### H FPFCBC #### [facility] [address] [place] [address] Dr. Arcenio Billy IG # 0.01 10e3/ul Normal 0.00-0.03 [facility] Comment on above: Performed By: #### H FPFCBC #### [facility] [address] [place] [address] Dr. Arcenio Billy IG % 0.2 % Normal 0.0-0.5 [facility] Comment on above: Performed By: #### H FPFCBC #### [facility] [address] [place] [address] Dr. Arcenio Billy LYMPH # 1.9 103/ul Normal 1.2-3.8 [facility] Comment on above: Performed By: #### H FPFCBC #### [facility] [address] [place] [address] Dr. Arcenio Billy Lymphocytes/100 WBC (Bld) 35.7 % Normal 20.5-60.0 [facility] Comment on above: Performed By: #### H FPFCBC #### [facility] [address] [place] [address] Dr. Arcenio Billy MCH (RBC) [Entitic mass] 28.8 pg Normal 26.7-34.0 [facility] Comment on above: Performed By: #### H FPFCBC #### [facility] [address] [place] [address] Dr. Arcenio Billy MCHC (RBC) [Mass/Vol] 32.7 g/dL Normal 29.9-35.2 [facility] Comment on above: Performed By: #### H FPFCBC #### [facility] [address] [place] [address] Dr. Arcenio Billy MCV (RBC) [Entitic vol] 88.1 fL Normal 81.0-99.0 [facility] Comment on above: Performed By: #### H FPFCBC #### [facility] [address] [place] [address] Dr. Arcenio Billy MONO # 0.5 103/ul Normal 0.3-0.8 [facility] Comment on above: Performed By: #### H FPFCBC #### [facility] [address] [address] [address] Arcenio Billy Monocytes/100 WBC (Bld) 9.9 % Normal 1.7-12.0 [facility] Comment on above: Performed By: #### H FPFCBC #### [facility] [address] [place] [address] Dr. Arcenio Billy NEUT # 2.7 103/ul Normal 1.4-6.5 [facility] Comment on above: Performed By: #### H FPFCBC #### [facility] [address] [place] [address] Dr. Arcenio Billy Neutrophils/100 WBC (Bld) 50.8 % Normal 43.0-75.0 [facility] Comment on above: Performed By: #### H FPFCBC #### [facility] [address] [place] [address] Dr. Arcenio Billy Platelet mean volume (Bld) [Entitic vol] 8.9 fL Critically low 9.5-13.5 [facility] Comment on above: Performed By: #### H FPFCBC #### [facility] [address] [place] [address] Dr. Arcenio Billy PLT 271 103/ul Normal 150-450 [facility] Comment on above: Performed By: #### H FPFCBC #### [facility] [address] [place] [address] Dr. Arcenio Billy RBC 4.89 106/ul Normal 4.20-5.40 [facility] Comment on above: Performed By: #### H FPFCBC #### [facility] [address] [place] [address] Dr. Arcenio Billy WBC 5.3 103/ul Normal 4.0-11.0 [facility] Comment on above: Performed By: #### H FPFCBC #### [facility] [address] [place] [address] Dr. Arcenio Billy [facility] PROFILEon 022 Albumin [Mass/Vol] 3.7 g/dL Normal 3.4-5.0 [facility] Comment on above: Performed By: #### H FPF #### [facility] [address] [address] [address] Arcenio Billy Albumin/Globulin [Mass ratio] 1.1 {ratio} Normal [facility] Comment on above: Performed By: #### H FPF #### [facility] [address] [address] [address] Arcenio Billy ALP [Catalytic activity/Vol] 60 U/L Normal 46-116 [facility] Comment on above: Performed By: #### H FPF #### [facility] [address] [address] [address] Arcenio Billy ALT [Catalytic activity/Vol] 47 U/L Normal 14-59 [facility] Comment on above: Performed By: #### H FPF #### [facility] [address] [place] [address] Dr. Arcenio Billy AST [Catalytic activity/Vol] 25 U/L Normal 15-37 [facility] Comment on above: Performed By: #### H FPF #### [facility] [address] [place] [address] Dr. Arcenio Billy Bilirubin [Mass/Vol] 0.5 mg/dL Normal 0.2-1.0 [facility] Comment on above: Performed By: #### H FPF #### [facility] [address] [place] [address] Dr. Arcenio Billy Calcium [Mass/Vol] 8.8 mg/dL Normal 8.5-10.1 [facility] Comment on above: Performed By: #### H FPF #### [facility] [address] [address] [address] Arcenio Billy Chloride [Moles/Vol] 103 mmol/L Normal 98-107 [facility] Comment on above: Performed By: #### H FPF #### [facility] [address] [place] [address] Dr. Arcenio Billy CHOL-HDL RATIO NORM SEE BELOW Normal [facility] Comment on above: Result Comment: 3.3 - 4.4 LOW RISK 4.4 - 7.1 AVERAGE RISK 7.1 - 11.0 MODERATE RISK >11.0 HIGH RISK Performed By: #### H FPF #### [facility] [address] [address] [address] Arcenio Billy Cholesterol [Mass/Vol] 352 mg/dL Critically high <=200 [facility] Comment on above: Performed By: #### H FPF #### [facility] [address] [address] [address] Arcenio Billy Cholesterol in HDL [Mass/Vol] 34 mg/dL Critically low 40 -60 [facility] Comment on above: Performed By: #### H FPF #### [facility] [address] [address] [address] Arcenio Billy Cholesterol in LDL [Mass/Vol] 274.2 mg/dL Normal [facility] Comment on above: Performed By: #### H FPF #### [facility] [address] [address] [address] Arcenio Billy Cholesterol.total/Cholestero l in HDL [Mass ratio] 10.4 {ratio} Normal [facility] Comment on above: Performed By: #### H FPF #### [facility] [address] [address] [address] Arcenio Billy CO2 [Moles/Vol] 25.7 mmol/L Normal 21.0-32.0 [facility] Comment on above: Performed By: #### H FPF #### [facility] [address] [address] [address] Arcenio Billy Creatinine [Mass/Vol] 0.91 mg/dL Normal 0.55-1.02 [facility] Comment on above: Performed By: #### H FPF #### [facility] [address] [address] [address] Arcenio Billy Globulin (S) [Mass/Vol] 3.4 g/dL Normal [facility] Comment on above: Performed By: #### H FPF #### [facility] [address] [address] [address] Arcenio Billy Glucose [Mass/Vol] 91 mg/dL Normal 74-106 [facility] Comment on above: Performed By: #### H FPF #### [facility] [address] [address] [address] Arcenio Billy HDL NORMAL > or = 60 mg/dl - LO W CARDIOVASCULAR RISK <40 mg/dl - HIGH CARDIOVASCULAR RISK Normal [facility] Comment on above: Performed By: #### H FPF #### [facility] [address] [address] [address] Arcenio Billy LDL CALC NORMAL SEE BELOW Normal [facility] Comment on above: Result Comment: <100 mg/dl OPTIMAL 100 - 129 mg/dl NEAR OR ABOVE OPTIMAL 130 - 159 mg/dl BORDERLINE HIGH 160 - 189 mg/dl HIGH >190 mg/dl VERY HIGH Performed By: #### H FPF #### [facility] [address] [address] [address] Arcenio Billy Potassium [Moles/Vol] 4.1 mmol/L Normal 3.5-5.1 [facility] Comment on above: Performed By: #### H FPF #### [facility] [address] [address] [address] Arcenio Billy Protein [Mass/Vol] 7.1 g/dL Normal 6.4-8.2 [facility] Comment on above: Performed By: #### H FPF #### [facility] [address] [address] [address] Arcenio Billy Sodium [Moles/Vol] 139 mmol/L Normal 136-145 [facility] Comment on above: Performed By: #### H FPF #### [facility] [address] [address] [address] Arcenio Billy Triglyceride [Mass/Vol] 219 mg/dL Critically high <=150 [facility] Comment on above: Performed By: #### H FPF #### [facility] [address] [address] [address] Arcenio Billy TSH 1.717 uIU/mL Normal 0.358-3.740 [facility] Comment on above: Performed By: #### H FPF #### [facility] [address] [address] [address] Arcenio Billy Urea nitrogen [Mass/Vol] 11.0 mg/dL Normal 7.0-18.0 [facility] Comment on above: Performed By: #### H FPF #### [facility] [address] [place] [address] Dr. Arcenio Billy Urea nitrogen/Creatinine [Mass ratio] 12.1 mg/mg Normal [facility] Comment on above: Performed By: #### H FPF #### [facility] [address] [place] [address] Dr. Arcenio Billy VLDL CALC 43.8 mg/dL Normal [facility] Comment on above: Performed By: #### H FPF #### [facility] [address] [place] [address] Dr. Arcenio Billy PAP ACOG PANEL 2: 30 to 65on 09-19-2021 . . Normal [facility] Comment on above: Result Comment: Perf ormed at: WB Performed By: #### [id number] #### [facility] [address] [place] [address] Dr. Arcenio Billy Age Gdln ACOG Testing 30-65 Normal [facility] Comment on above: Performed By: #### [id number] #### [facility] [address] [place] [address] Dr. Arcenio Billy DIAGNOSIS: Comment Normal [facility] Comment on above: Result Comment: NEGA TIVE FOR INTRAEPITHELIAL LESION OR MALIGNANCY. FUNGAL ORGANISMS MORPHOLOGICALLY CONSISTENT WITH MOSES SPECIES ARE PRESENT. Performed at: WB Performed By: #### [id number] #### [facility] [address] [place] [address] Dr. Arcenio Billy HPV Aptima Negative Normal Negative [facility] Comment on above: Result Comment: This nucleic acid amplification test detects fourteen high-risk HPV types (16,18,31,33,35,39,45,51,52,56,58,59,66,68) without differentiation. Performed at: =G Performed By: #### [id number] #### [facility] [address] [place], [place] [id number] Dr. Arcenio Billy Methodology: Comment Normal [facility] Comment on above: Result Comment: This liquid based ThinPrep(R) pap test was screened with the use of an image guided system. Performed at: WB Performed By: #### [id number] #### [facility] [address] [place] [address] Dr. Arcenio Billy Note: Comment Normal [facility] Comment on above: Result Comment: The Pap smear is a screening test designed to aid in the detection of premalignant and malignant conditions of the uterine cervix. It is not a diagnostic procedure and should not be used as the sole means of detecting cervical cancer. Both false-positive and false-negative reports do occur. . Performed at: WB Performed By: #### [id number] #### [facility] [address] [place] [address] Dr. Arcenio Billy Performed by: Comment Normal [facility] Comment on above: Result Comment: Bronson Cordero, [place] (ASCP) Performed at: WB Performed By: #### [id number] #### [facility] [address] [place] [address] Dr. Arcenio Billy Specimen adequacy: Comment Normal [facility] Comment on above: Result Comment: Sati sfactory for evaluation. No endocervical component is identified. Performed at: WB Performed By: #### [id number] #### [facility] [address] [place] [address] Dr. Arcenio Billy MG MAMM SCREEN 3D JULIO CÉSAR CADon 09-08-2021 MG MAMM SCREEN 3D JULIO CÉSAR CAD Patient: BEN CRUZ Exam Date: 09/08/2021 : 1975 Gender:F Ordering : DR CHELITA VILLANUEVA . Admission #: [id number] Family : Order #: [id number] CLICK HERE TO VIEW EXAM RADIOLOGY REPORT [...] cancer at age 71. LOCATION: [facility] BREAST COMPOSITION: Scattered areas fibroglandular density. [...] MD on 09/08/2021 at 11:41 Normal [facility] MRI BRAIN WO/W IVCONon 08-23 [facility] MRI LIVER WO/W IVCONon 06-16 [facility] MRI BRAIN WO/W IVCONon 06-01 [facility] Vital Signs Date Time Vital Sign Value Performing Clinician Facility 03-16-2023 13:45-0500 Body height 162.56 cm Lissett Vega Other [facility] Other 03-16-2023 13:45-0500 Body mass index (BMI) [Ratio] 34.5 kg/m2 Lissett Vega Other [facility] Other 03-16-2023 13:45-0500 Body temperature 99.1 [degF] Lissett Vega Other [facility] Other 03-16-2023 13:45-0500 Body weight 91.17 kg Lissett Vega Other [facility] Other 03-16-2023 13:45-0500 Diastolic blood pressure 88 mm[Hg] Lissett Vega Other [facility] Other 03-16-2023 13:45-0500 SaO2% (BldA) [Mass fraction] 98 % Lissett Vega Other [facility] Other 03-16-2023 13:45-0500 Systolic blood pressure 128 mm[Hg] Lissett Vega Other [facility] Other 02-17-2023 14:47-0500 Blood Pressure Location [facility] [place] 02-17-2023 14:47-0500 Diastolic blood pressure 84 mm[Hg] Debbie NILL [facility] [place] 02-17-2023 14:47-0500 Heart rate 76 /min Debbie NILL [facility] [place] 02-17-2023 14:47-0500 Respiratory rate 16 /min Debbie NILL [facility] [place] 02-17-2023 14:47-0500 Systolic blood pressure 128 mm[Hg] Debbie NILL [facility] 09-21-2022 11:30-0400 Body height 162.56 cm Lissett Vega Other [facility] Other 09-21-2022 11:30-0400 Body mass index (BMI) [Ratio] 36.56 kg/m2 Lissett Vega Other [facility] Other 09-21-2022 11:30-0400 Body weight 96.62 kg Lissett Vega Other [facility] Other 09-21-2022 11:30-0400 Diastolic blood pressure 84 mm[Hg] Lissett Vega Other [facility] Other 09-21-2022 11:30-0400 Systolic blood pressure 137 mm[Hg] Lissett Vega Other [facility] Other 06-21-2022 10:32-0400 Body height 165 cm Debbie Echeverria MD Work Phone: [facility] 06-21-2022 10:32-0400 Body temperature 96.8 [degF] Debbie Echeverria MD Work Phone: [facility] 06-21-2022 10:32-0400 Body weight 98.79 kg Debbie Echeverria MD Work Phone: [facility] 06-21-2022 10:32-0400 Diastolic blood pressure 82 mm[Hg] Debbie Echeverria MD Work Phone: [facility] 06-21-2022 10:32-0400 Heart rate 74 /min Debbie Echeverria MD Work Phone: [facility] 06-21-2022 10:32-0400 Respiratory rate 18 /min Debbie Echeverria MD Work Phone: [facility] 06-21-2022 10:32-0400 SaO2% (BldA) [Mass fraction] 96 % Debbie Echeverria MD Work Phone: [facility] 06-21-2022 10:32-0400 Systolic blood pressure 139 mm[Hg] Debbie Echeverria MD Work Phone: [facility] 12-21-2021 13:24-0400 Body temperature 98.6 [degF] Debbie Echeverria MD Work Phone: [facility] 12-21-2021 13:24-0400 Body weight 102.15 kg Debbie Echeverria MD Work Phone: [facility] 12-21-2021 13:24-0400 Diastolic blood pressure 82 mm[Hg] Debbie Echeverria MD Work Phone: [facility] 12-21-2021 13:24-0400 Heart rate 79 /min Debbie Echeverria MD Work Phone: [facility] 12-21-2021 13:24-0400 Respiratory rate 20 /min Debbie Echeverria MD Work Phone: [facility] 12-21-2021 13:24-0400 SaO2% (BldA) [Mass fraction] 100 % Debbie Echeverria MD Work Phone: [facility] 12-21-2021 13:24-0400 Systolic blood pressure 145 mm[Hg] Debbie Echeverria MD Work Phone: [facility] Encounters Encounter Date Encounter Type Care Provider Facility Start: 03-16-2023 End: 03-16-2023 ambulatory Lissett Vega Other [facility] Other Start: 03-16-2023 Office outpatient vi sit 15 minutes Lissett Vega [facility] Start: 02-17-2023 End: 02-18-2023 ambulatory Debbie R NILL Facility:[facility] Start: 02-17-2023 End: 02-17-2023 Patient encounter procedure Debbie R NILL [facility] Start: 02-07-2023 Telephone encounter Johann Henriquez RN [facility] [place] Start: 02-06-2023 Telephone encounter Johann Henriquez RN [facility] Comment on above: Gamma Knife Follow-u p Start: 01-27-2023 End: 01-28-2023 Orders Only Gurpreet Beckwith DO, PhD Work Phone: Neurosurgery Comment on above: Benign neoplasm of m eninges (HCC) (Primary Dx) Benign neoplasm of m eninges (HCC) [D32.9] Start: 01-27-2023 Patient encounter procedure Burak Daley MD Work Phone: [facility] Start: 01-27-2023 Radiation Oncology Note Burak Daley MD Work Phone: [facility] Comment on above: Procedure Treatment Planning Start: 01-24-2023 ambulatory Debbie NILL Facility:[facility] [place] Start: 01-23-2023 End: 01-23-2023 ambulatory Lissett Gary Other [facility] Other Start: 01-23-2023 Telephone encounter Lissett Gary [facility] Start: 12-22-2022 End: 12-22-2022 ambulatory DEBBIE ECHEVERRIA Facility:[place] Start: 11-15-2022 Telephone encounter Betzy liao RN Work Phone: [facility] Comment on above: [employer] (Schedule gamma knife 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/) Start: 11-04-2022 End: 11-04-2022 ambulatory Gurpreet Beckwith DO, PhD Work Phone: [facility] Comment on above: Benign neoplasm of m eninges (HCC) (Primary Dx) Start: 11-04-2022 End: 11-04-2022 Telemedicine consultation with patient Gurpreet Beckwith DO, PhD Work Phone: [facility] Start: 10-31-2022 End: 10-31-2022 ambulatory Lissett Gary Other [facility] Other Start: 10-31-2022 Telephone encounter Lissett Gary [facility] Start: 10-19-2022 End: 10-19-2022 ambulatory DEBBIE ECHEVERRIA Facility:[facility] Start: 10-19-2022 End: 10-19-2022 ambulatory Luis Licona MD Work Phone: Radiation Oncology Comment on above: Meningioma (HCC) (Pr imary Dx) Start: 10-19-2022 End: 10-19-2022 Telemedicine consultation with patient Luis Licona MD Work Phone: [facility] Start: 10-18-2022 End: 10-18-2022 ambulatory DEBBIE ECHEVERRIA Facility:[facility] Start: 10-18-2022 End: 10-18-2022 ambulatory Trista Bonilla APRN.CNP Work Phone: Radiation Oncology Comment on above: Meningioma (HCC) (Pr imary Dx) Start: 10-18-2022 End: 10-18-2022 Telemedicine consultation with patient Trista Bonilla FELIX Work Phone: [facility] Start: 10-17-2022 End: 10-17-2022 ambulatory TRISTA BONILLA Facility:[facility] Start: 10-17-2022 End: 10-17-2022 Subsequent hospital visit by physician Mri [facility] (Lg Bore/1.5t) Radiology MRI Comment on above: Benign neoplasm of m eninges (HCC) [D32.9] Start: 09-23-2022 End: 09-23-2022 ambulatory Lissett Vega Other [facility] Other Start: 09-23-2022 Telephone encounter Lissett Vega [facility] Start: 09-21-2022 End: 09-21-2022 ambulatory Lissett Vega Other [facility] Other Start: 09-21-2022 Encounter for other preprocedural examination Lissett Vega [facility] Start: 09-21-2022 Office outpatient vi sit 25 minutes Lissett Vega [facility] Start: 09-12-2022 End: 09-12-2022 ambulatory Taz Rossi Facility[facility] Start: 08-31-2022 Telephone encounter Luis osborn MD Work Phone: Radiation Oncology Comment on above: [employer] Start: 06-21-2022 End: 06-21-2022 ambulatory DEBBIE ECHEVERRIA Facility:[place] Start: 06-21-2022 End: 06-21-2022 ambulatory Debbie Echeverria MD Work Phone: Hematology/Oncology Comment on above: Malignant melanoma o f torso excluding breast (HCC) (Primary Dx) Start: 06-21-2022 End: 06-21-2022 Patient encounter procedure Debbie Echeverria MD Work Phone: [facility] Start: 03-16-2022 End: 03-16-[address] LISSETT VEGA Facility: Start: 02-28-2022 End: 02-28-2022 ambulatory DEBBIE ECHEVERRIA Facility:[facility] Start: 02-28-2022 End: 02-28-2022 ambulatory Trista Bonilla APRTayCOUNTER CHECKER Work Phone: Radiation Oncology Comment on above: Benign neoplasm of m eninges (HCC) (Primary Dx) Start: 02-28-2022 End: 02-28-2022 Telemedicine consultation with patient Trista Bonilla APRN.COUNTER CHECKER Work Phone: [facility] Start: 02-23-2022 End: 02-23-2022 ambulatory LUIS LICONA Facility:[facility] Start: 02-23-2022 End: 02-23-2022 Subsequent hospital visit by physician Mri [facility] (Lg Bore/1.5t) Radiology MRI Comment on above: Benign neoplasm of m eninges (HCC) [D32.9] Start: 12-21-2021 End: 12-21-2021 ambulatory Debbie Echeverria MD Work Phone: Hematology/Oncology Comment on above: Malignant melanoma o f torso excluding breast (HCC) (Primary Dx) Start: 12-21-2021 End: 12-21-2021 Patient encounter procedure Debbie Echeverria MD Work Phone: [facility] Start: 12-15-2021 End: 12-15-[address] LISSETT VEGA Facility:[facility] Start: 12-11-2021 Gynecological examination normal Lissett Vega Other [facility] Other Start: 12-01-2021 Telephone encounter Debbie Echeverria MD Work Phone: Hematology/Oncology Comment on above: [employer] Start: 11-18-2021 End: 11-19-2021 [...] with patient Luis Licona MD Work Phone: [facility] Start: 08-23-2021 End: 08-23-2021 Subsequent hospital visit by physician Mri [facility] (Lg Bore/1.5t) Radiology MRI Comment on above: Benign neoplasm of m eninges (HCC) [D32.9] Start: 06-16-2021 End: 06-16-2021 Subsequent hospital visit by physician Mri [facility] (Lg Bore/1.5t) Radiology MRI Comment on above: Malignant 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] Start: 06-01-2021 End: 06-01-2021 Subsequent hospital visit by physician Mri [facility] (Lg Bore/1.5t) Radiology MRI Comment on above: [...] 12-21-2022 Adult depression screening assessment DEPRESSION SCREENING [facility] Start: 12-02-2022 Influenza vaccination [facility] Start: 08-29-2022 End: 03-31-2023 Mri brain brain stem w/o w/contrast material MRI BRAIN WO/W IVCON Radiology Routine Benign neoplasm of meninges (HCC) Expected: 08/29/2022, Expires: 03/31/2023 [facility] Work Phone: Comment on above: Expected: 08/29/2022 , Expires: 03/31/2023 Start: 08-22-2022 Adult depression screening assessment DEPRESSION SCREENING [facility] Start: 04-03-2022 DEPRESSION ASSESSMENT DEPRESSION ASS [facility] Start: 01-24-2022 DIABETES SCREEN DIABETES SCREEN [facility] Start: 01-24-2022 Diabetes Screening Diabetes Screenin g [facility] Start: 12-02-2021 Influenza vaccination [facility] Start: 04-03-2021 [facility] Start: 07-12-2020 COLOGUARD (FIT-DNA) COLOGUARD (FIT-D NA) [facility] Start: 07-12-2020 Colonoscopy COLONOSCOPY [facility] Start: 07-12-2020 COLORECTAL CANCER SCREENING COLORECTAL CANCER SCREENING [facility] Start: 07-12-[address] COLONOGRAPHY [facility] Start: 07-12-2020 FECAL OCCULT BLOOD FECAL OCCULT BLOO D [facility] Start: 07-12-2020 Lipid 1996 panel - S emeterio or Plasma Lipid Screening [facility] Start: 07-12-2020 LIPID SCREEN LIPID SCREEN [facility] Start: 07-12-2020 SIGMOIDOSCOPY SIGMOIDOSCOPY [facility] Start: 2015 Mammography [facility] Start: 07-12-2005 HPV TESTING HPV TESTING [facility] Start: 07-12-1996 PAP TESTING PAP TESTING [facility] Start: 07-12-1994 Urine microalbumin profile [facility] Start: 07-12-1993 HEPATITIS C SCREENING HEPATITIS C SC REENING [facility] Start: 07-12-1993 HIV SCREENING HIV SCREENING [facility] Start: 07-12-1981 PNEUMOCOCCAL (1 - PCV) PNEUMOCOCCAL (1 - PCV) [facility] Start: 07-12-1980 COVID-19 VACCINE (#1) COVID-19 VACCI NE (#1) [facility] Start: 01-12-1976 COVID-19 VACCINE (#1) COVID-19 VACCI NE (#1) [facility] Start: 1975 HEPATITIS B (1 of 3 - 3-dose series) HEPATITIS B (1 of 3 - 3-dose series) [facility] Start: 1975 Hepatitis B Vaccine (1 of 3 - 3-dose series) Hepatitis B Vaccine (1 of 3 - 3-dose series) [facility] End: 09-22-2022 Mri brain brain stem w/o w/contrast material MRI BRAIN WO/W IVCON Radiology Routine Benign neoplasm of meninges (HCC) 1 Occurrences starting 08/23/2021 until 09/22/2022 [facility] Work Phone: Comment on above: 1 Occurrences starti ng 08/23/2021 until 09/22/2022 [facility] ANESTHESIA O NLY [facility] c Immunizations Immunization Date Immunization Notes Care Provider Fa cility 06-05-2020 SARS-CoV-2 (COVID-19 ) mRNA BNT-162b2 vax Debbie NILL [facility] [place] 05-15-2020 SARS-CoV-2 (COVID-19 ) mRNA BNT-162b2 vax Debbie NILL [facility] [place] NEGATED: Highlighted row has not occurred!02-17-2023 influenza virus vaccine, unspecified formulation Debbie NILL [facility] [place] Payers Date Payer Category Payer Self-pay 2018 Unknown MMO MMO [employer] [id number] 2018-Present [phone] [address] [place] [address] PPO [id number] 2018 Unknown [id number] 1975 Unknown [id number] 1975 Unknown [id number] 1975 Unknown [id number] 1975 Unknown [id number] 1975 Unknown [id number] 1959 Self-pay [id number] 1959 Unknown [id number] Unknown [id number] Unknown [id number] Social History Date Type Detail Facility Start: 11-19-2018 End: 02-17-2023 Tobacco smoking status NHIS Ex-smoker [facility] End: 08-02-2018 History of tobacco use Current smoker [facility] End: 08-02-2018 History of tobacco use Cigarette Smoker [facility] Start: 11-19-2018 Tobacco use and exposure Smokeless t obacco non-user [facility] Start: 06-21-2021 End: 12-22-2022 Alcohol intake Current drinker of alcohol (finding) [facility] Start: 11-19-2018 History SDOH Alcohol Comment occasionally [facility] Start: 1975 Sex Assigned At Not on file [facility] Start: 12-11-2021 End: 12-21-2021 Exposure to SARS-CoV-2 (event) Not sure [facility] Start: 06-21-2022 End: 10-18-2022 Sex Assigned At [facility] Start: 06-21-2022 End: 10-18-2022 History of Social function [facility] Adult Depression Screening Assessment 0 [facility] Start: 01-20-2020 Gender identity Identifies as female gender (finding) [facility] Start: 05-02-2021 End: 06-11-2021 Exposure to SARS-CoV-2 (event) Unable to assess [facility] Functional Status Date Assessment Result Facility 02-17-2023 [...] Mar, 2023 Microscopic hematuria (ICD-10 - R31.29) [facility] Other 11-17-2023 NoteChief Complaint consultation for screening [...] Recorded SARS-CoV-2 (COVID-19) mRNA BNT-162b2 vax 05/15/2020 [facility]Result Comment: Electronically Signed By: MAGALI MCKINLEY, Debbie He\Date and Time Signed: 02/17/23 15:11 [id number] Miscellaneous Notes* Telephone Encounter - Johann Henriquez [...] symptoms or concerns arise. [facility] Miscellaneous Notes* Telephone Encounter - Johann Henriquez RN - 02/07/2023 1:13 PM EST 2nd attempt to reach out, patient unavailable. Will send [facility] message with contact information to call if she is experiencing any symptoms or has any concerns since gamma knife treatment. * Telephone Encounter - Johann Henriquez RN - 02/06/2023 1:17 PM EST Calling Ben for post-GKRS follow-up. Unable to reach at this time. Left voicemail. documented in this encounterUniversity Hospitals Beachwood Medical Center11-01-2023 NoteHNO ID: [id number] Author: Burak Daley MD Service: Radiation Oncology Author Type: Physician Type: Progress Notes Filed: 02/03/2023 12:33 AM Note Text: MAG SHARONASAWYER Payan [id number] 02/01/2023 [facility] / Department of Radiation [...] :57 AM Electronically Signed cc: Dr. Gurp[facility]withR[facility]2023 NoteHNO ID: [id number] Author: Gurpreet Beckwith DO, PhD Service: ? Author Type: Physician Type: Progress Notes Filed: 01/27/2023 1:49 PM Note Text: [facility] [address] [place] [address] [place] OPERATIVE REPORT NAME: Ben Cruz [facility] NO.: [id number] MASK SIMULATION DATE: 2023-01-27 RADIATION TREATMENT START [...] of Fractions: 1 After the usual quality systems specialist procedures were performed, fractionated 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 was delivered with use of the Gamma Knife. The Gamma Knife checklist and time outs were performed during this procedure. Gurpreet Beckwith DO, PhDSt. [facility] Of [facility]10-27-2023 NoteHNO ID: [id number] Author: Burak Daley MD Service: Radiation Oncology Author Type: Physician Type: Progress Notes Filed: 02/01/2023 12:33 AM Note Text: BEN CRUZ [id number] 01/27/2023 [facility] Cindi Diez Brain Tumor [facility] Neuro-Oncology [facility] STEREOTACTIC RADIOSURGERY (SRS) DAILY PROCEDURE NOTE DATE [...] patient setup, I conferred with the medical driver to approve the final setup. I was [...] Signed Burak Daley M.D. :10 [facility]10-27-2023 NoteHNO ID: [id number] Author: Burak Daley MD Service: Radiation Oncology Author Type: Physician Type: Progress Notes Filed: 02/02/2023 12:32 AM Note Text: BEN CRUZ [id number] 01/27/2023 [facility] Department of Radiation Oncology [facility] RADIATION ONCOLOGY GAMMA KNIFE SIMULATION NOTE DATE [...] Signed Burak Daley M.D. 35:18 [facility]10-27-2023 NoteHNO ID: [id number] Author: Burak Daley MD Service: Radiation Oncology Author Type: Physician Type: Progress Notes Filed: 02/01/2023 12:33 AM Note Text: BEN CRUZ [id number] 01/27/2023 [facility] Department of Radiation Oncology [facility] RADIATION ONCOLOGY GAMMA KNIFE TREATMENT PLANNING NOTE [...] DVH. Electronically Signed Burak Daley M.D. / [facility] 31:29 [facility]10-27-2023 History of Present illness Narrative* Gurpreet Beckwith DO, PhD - 01/27/2023 1:49 PM EDT [facility] [address] [place] [address] [place] OPERATIVE REPORT NAME: Ben Cruz [facility] NO.: [id number] MASK SIMULATION DATE: 2023-01-27 RADIATION TREATMENT START [...] of Fractions: 1 After the usual quality systems specialist procedures were performed, fractionated 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 was delivered with use of the Gamma Knife. The Gamma Knife checklist and time outs were performed during this procedure. Gurpreet Beckwith DO, PhD documented in this encounterUniversity Hospitals Beachwood Medical Center10-27-2023 NoteHNO ID: [id number] Author: Gurpreet Beckwith DO, PhD Service: ? Author Type: Physician Type: Progress Notes Filed: 01/27/2023 11:22 AM Note Text: [facility] [address] [place] [address] [place] OPERATIVE REPORT NAME: Ben Cruz [facility] NO.: [id number] MASK SIMULATION DATE: 2023-01-27 RADIATION TREATMENT START [...] of Fractions: 1 After the usual quality systems specialist procedures were performed, fractionated 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 was delivered with use of the Gamma Knife. The Gamma Knife checklist and time outs were performed during this procedure. Gurpreet Beckwith DO, PhDSt. John Of [facility]10-27-2023 NoteHNO ID: [id number] Author: Zee Padilla Tech Service: Radiology Author Type: Wash Tub Machine Operator Type: Progress Notes Filed: 01/27/2023 8:06 [...] BY: Tyshawn Lawler January 27, 2023 8:06 [facility]10-27-2023 NoteHNO ID: [id number] Author: Gurpreet Beckwith DO, PhD Service: ? [...] 01/27/2023 11:21 AM EDT [facility] [address] [place] [address] [place] OPERATIVE REPORT NAME: Ben Cruz [facility] NO.: [id number] MASK SIMULATION DATE: 2023-01-27 RADIATION TREATMENT START [...] of Fractions: 1 After the usual quality systems specialist procedures were performed, fractionated 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 was delivered with use of the Gamma Knife. The Gamma Knife checklist and time outs were performed during this procedure. Gurpreet Beckwith DO, PhD documented in this encounterUniversity Hospitals Beachwood Medical Center10-27-2023 History of Present illness Narrative* Zee Padilla [...] 27, 2023 8:06 AM documented in this encounterUniversity Hospitals Beachwood Medical Center10-27-2023 NoteHNO ID: [id number] Author: Anton Terrell RN Service: Nursing Author [...] Cruz DATE: January 27, 2023 TIME: 7:46 [facility]10-27-2023 NoteHNO ID: [id number] Author: Mariela Burk RT(R) Service: Radiology Author [...] BY: RT Nestor(R) January 27, 2023 7:59 [facility]10-27-2023 History of Present illness Narrative* Gurpreet [...] 123 U/L 60 Final Pathology: Specimen #: [id number]* Submitting Physician: DEBBIE ECHEVERRIA MD FINAL DIAGNOSIS [...] FRONTAL LOBE, UNCHANGED GOING BACK TO 06/01/2021 Shampoo Person: [facility] Transcribe Date/Time: Jan 27 2023 8:08A [...] Licona- muna Echeverria- muna documented in this encounterUniversity Hospitals Beachwood Medical Center10-27-2023 NoteHNO ID: [id number] Author: Gayle Acevedo RN Service: ? Author [...] Patient's Age: 47 Menstruation Status: Hysterectomy 2019 [facility] Results: N/A test not performed QC: Yes, [...] Acevedo RN - 01/27/2023 7:45 AM EDT [facility] Gamma Knife Center Discharge Instructions As with [...] a physician or hospital other than the [facility] with any problem related to the [...] may your physician, Dr. Virgil Beckwith at [phone] Monday through Monday 8:00 am to 5:00 pm, or call the Gamma Knife nurse Monday through Monday 8:00 am to 4:00 pm at [phone]. In the evening or on weekends, call [phone] or toll-free [phone] and ask the metalizing machine operator to page your neurosurgeon's resident transition social worker. documented in this encounterUniversity Hospitals Beachwood Medical Center10-27-2023 History of Present illness Narrative* Anton Terrell [...] 27, 2023 7:59 AM documented in this encounterUniversity Hospitals Beachwood Medical Center10-27-2023 History of Present illness Narrative* Gayle Acevedo [...] Patient's Age: 47 Menstruation Status: Hysterectomy 2019 [facility] Results: N/A test not performed QC: Yes, [...] via/with Gayle Acevedo RN documented in this encounterUniversity Hospitals Beachwood Medical Center10-27-2023 History of Present illness Narrative* Burak Daley MD - 01/27/2023 12:00 AM EDT SHARONA BEN Felix [id number] 01/27/2023 [facility] C[facility] Neuro[facility] STEREOTACTIC RADIOSURGERY (SRS) DAILY PROCEDURE NOTE DATE [...] to patientsetup, I conferred with the medical driver to approve the final setup. I was [...] Daley M.D. :10 PM documented in this encounterUniversity Hospitals Beachwood Medical Center10-27-2023 History of Present illness Narrative* Burak Daley MD - 01/27/2023 12:00 AM EDT BEN CRUZ [id number] 01/27/2023 [facility] Department of Radiation Oncology [facility] RADIATION ONCOLOGY GAMMA KNIFE TREATMENT PLANNING NOTE [...] DVH. Electronically Signed Burak Daley M.D. / [facility] :29 PM documented in this encounterUniversity Hospitals Beachwood Medical Center09-21-2023 NoteHNO ID: [id number] Author: Debbie Echeverria MD Service: ? Author Type: Physician Type: Progress Notes Filed: 12/23/2022 9:46 AM Note Text: December 22, 2022 DXN: Resected T4aN0 desmoplastic melanoma. The lesion was about 4.5mm located on her back with 2 negative SLNs (left axilla). There was no reported neurtropism and only one mitotic figure. Margins were negative. Declined an adjuvant trial in [place]. Baseline imaging today is negative CC: Melanoma [...] beckwith components of the Resident. Debbie Echeverria, [facility]08-15-2023 Miscellaneous Notes* Telephone Encounter - Betzy Heard, BIGG - 11/15/2022 1:57 PM EDT Calling Ben to follow up on [facility] message about scheduling gamma knife for 01/27/2023 No answer, left message stating that I'll go ahead and place the GK orders. Reminded to disregard ANY appointment times she sees in [facility], any automated text reminders or automated phone calls for 01/27/23 She will receive a call from the GK nurse or radiation therapist the day before with her arrival time. If she has any questions, I left office phone # for call back or she can send a [facility] message. I will send out a GK folder with additional information related to Mask Based Gamma Knife Radiosurgery Betzy Heard RN, BSN [employer] [facility] documented in this encounterUniversity Hospitals Beachwood Medical Center08-04-2023 NoteHNO ID: [id number] Author: Gurpreet Beckwith DO, PhD Service: ? Author Type: Physician Type: Progress Notes Filed: 11/04/2022 1:27 PM Note Text: Brain Tumor Neuro-Oncology Center New Patient Virtual Consultation Referred by Dr. Luis Licona We had a virtual visit conducted via [employer] virtual visit. I received consent from the patient to perform the visit using this platform. I have communicated my name and active licensure. The patient's identity and physical location were verified at the time of this visit. Either the patient or their legal customer account representative has been informed of the risks [...] We had a virtual visit conducted via [employer]. I received consent from the patient to perform the visit using this platform. I have communicated my name and active licensure. The patient's identity and physical location wereverified at the time of this visit. Either the patient or their legal customer account representative has been informed of the risks [...] 123 U/L 60 Final Pathology: Specimen #: [id number]* Submitting Physician: DEBBIE ECHEVERRIA MD FINAL DIAGNOSIS Skin, left upper midline back, shave biopsy - Desmoplastic melanoma, see synoptic report. SDB/rw 11/09/2018 Imaging: MRI Report MRI BRAIN WO/W IVCON Exam End: 10/17/2022 11:20 AM (Final result) Narrative: * * *Final Report* * * DATE OF EXAM: Oct 17 2022 11:20AM [facility] 0295 - MRI BRAIN WO/W IVCON / [...] with air-fluid level suggestive of acute/active sinusitis. Shampoo Person: [facility] Transcribe Date/Time: Oct 17 2022 11:35A [...] edema. She has been followed with Dr Liocna and it has shown some growth and [...] a CBCT with the mask on the [employer] GK machine and this image will be [...] which included preparing to see the patient, ttwr-kr-txhy patient care, completing clinical documentation, obtaining and/or reviewing separately obtained history, performing a medically appropriate examination, counseling and educating the pat ient/family/caregiver, ordering medications, tests, or procedures, communicating with other HCPs (not separately reported), independently interpreting results (not separately reported), communicatingresults to the patient/family/caregiver, and care coordination (not separately reported). Gurpreet Beckwith DO, PhD cc: Bne Licona- muna toro documented in this encounterUniversity Hospitals Beachwood Medical Center07-31-2023 Evaluation note* Encounter Date Diagnosis Assessment Notes Treatment Notes Treatment Clinical Notes Oct, Screen for colon cancer (ICD-10 - Z12.11) [employer] Other 07-19-2023 NoteHNO ID: [id number] Author: Luis Licona MD Service: ? Author [...] EDT Radiation Oncology - Follow Up Note [facility] DISTANCE HEALTH VISIT This visit is [...] Luis Licona MD cc: Debbie Echeverria [address] [address] documented in this encounterUniversity Hospitals Beachwood Medical Center07-18-2023 NoteHNO ID: [id number] Author: Trista Bonilla APRN.CNP Service: ? Author [...] Total Time Spent: more than 20 minutes rjpp-fw-mxhx with the patient and over half the [...] DATE OF EXAM: Oct 17 2022 11:20AM [facility] 0295 - MRI BRAIN WO/W IVCON / [...] with air-fluid level suggestive of acute/active sinusitis. Shampoo Person: [facility] Transcribe Date/Time: Oct 17 2022 11:35A [...] from October 18, 2022. Trista Bonilla APRN.SHERITA. [facility] DISTANCE HEALTH VISIT This visit is a Virtual MyChart video visit encounter which required patient- provider interaction for the medical decision making as documented below. Persons Present: patient Ben Cruz has consented to this distance health encounter. Total Time Spent: more than 20 minutes hzvq-nd-nwpw with the patient and over half the [...] with air-fluid level suggestive of acute/active sinusitis. Shampoo Person: [facility] Transcribe Date/Time: Oct 17 2022 11:35A [...] Cc: Dr. Luis Echeverria documented in this encounterUniversity Hospitals Beachwood Medical Center07-17-2023 NoteHNO ID: [id number] Author: Nidia Morelos RN Service: Nursing Author [...] Cruz DATE: October 17, 2022 TIME: 10:40 [facility]07-17-2023 NoteHNO ID: [id number] Author: Barbara Gaxiola tape controlled machine stitcher Service: Radiology Author Type: Wash Tub Machine Operator Type: Progress Notes Filed: 10/17/2022 10:54 [...] Site disposition Discontinued SIGNED BY: Barbara Gaxiola tape controlled machine stitcher October 17, 2022 10:53 [facility]07-17-2023 History of Present illness Narrative* Nidia [...] 2022 TIME: 10:40 AM * Barbara Gaxiola tape controlled machine stitcher - 10/17/2022 10:40 AM EDT Radiology Service [...] 17, 2022 10:53 AM documented in this encounterUniversity Hospitals Beachwood Medical Center06-21-2023 Evaluation note* Encounter Date Diagnosis Assessment Notes [...] the berberine and get back to patient. [facility] Other 05-31-2023 Miscellaneous Notes* Telephone Encounter - [...] 09/05. Prescription should be sent to the [facility] in [facility]. [facility] [phone] [place] [address] documented in this encounterUniversity Hospitals Beachwood Medical Center03-21-2023 NoteHNO ID: [id number] Author: Debbie Echeverria MD Service: ? Author Type: Physician Type: Progress Notes Filed: 06/21/2022 11:09 AM Note Text: June 21, 2022 DXN: Resected T4aN0 desmoplastic melanoma. The lesion was about 4.5mm located on her back with 2 negative SLNs (left axilla). There was no reported neurtropism and only one mitotic figure. Margins were negative. Declined an adjuvant trial in [place]. Baseline imaging today is negative CC: Melanoma [...] with more than 50% of the total xzai-tf-vovr time of the visit in counseling / coordination of care. Debbie Echeverria, [facility]03-21-2023 History of Present illness Narrative* Debbie Echeverria MD - 06/21/2022 11:08 AM EDT June 21, 2022 DXN: Resected T4aN0 desmoplastic melanoma. The lesion was about 4.5mm located on her back with 2 negative SLNs (left axilla). There was no reported neurtropism and only one mitotic figure. Margins were negative. Declined an adjuvant trial in [place]. Baseline imaging today is negative CC: Melanoma [...] with more than 50% of the total amac-dz-xfdc time of the visit in counseling / coordination of care. Debbie Echeverria MD documented in this encounterUniversity Hospitals Beachwood Medical Center03-21-2023 Nurse Note* Vanessa Giang LPN - 06/21/2022 10:29 AM EDT Additional intake questions: Has the patient had fever, nausea, vomiting, diarrhea, constipation, fatigue for > 1 week? Yes, fatigue and Provider Notified Does the patient have a decreased appetite? No Does patient want to see a Single Stayer Operator? No (yes to any of above refer patient to schedulers for dietitian appointment) ) Does patient have any new or increased numbness or tingling of extremities? No Is patient interested in fertility information? NA Does patient need any prescription refills? No Does patient have an advanced directive in place? No, Patient refused referral to Social Work or Resource Center documented in this encounterUniversity Hospitals Beachwood Medical Center11-28-2022 NoteHNO ID: [id number] Author: Trista Bonilla APRN.COUNTER CHECKER Service: ? Author Type: Nurse Practitioner Type: Progress Notes Filed: 03/01/2022 9:23 AM Note Text: [facility] DISTANCE HEALTH VISIT This visit is a Virtual MyChart video visit encounter which required patient-provider interaction for the medical decision making as documented below. Persons Present: patient Ben Cruz has consented to this distance health encounter. 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 She denies focal weakness, dizziness, gait instability, or seizures. Data Reviewed: MRI Report MRI BRAIN WO/W IVCON Exam End: 02/23/2022 11:31 AM (Final result) Narrative: * * *Final Report* * * DATE OF EXAM: Feb 23 2022 11:31AM [facility] 0295 - MRI BRAIN WO/W IVCON / [...] unremarkable MRI brain with and without contrast. Shampoo Person: [facility] Transcribe Date/Time: Feb 23 2022 11:50A [...] History of Present illness Narrative* Trista Bonilla APRN.[facility] - 02/28/2022 10:30 AM EST [facility] DISTANCE HEALTH VISIT This visit [facility] a [facility] encounter which required patient- provider interaction for the medical decision making as documented below. Persons Present: patient Ben Cruz has consented to this distance health encounter. 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 She denies focal weakness, dizziness, gait instability, or seizures. Data Reviewed: MRI Report MRI BRAIN WO/W IVCON Exam End: 02/23/2022 11:31 AM (Final result) Narrative: * * *Final Report* * * DATE OF EXAM: Feb 23 2022 11:31AM [facility] 0295 - MRI BRAIN WO/W IVCON / [...] unremarkable MRI brain with and without contrast. Shampoo Person: [facility] Transcribe Date/Time: Feb 23 2022 11:50A [...] She will [facility] to get MRI [facility] and present in VV follow up. Trista Bonilla APRN.COUNTER CHECKER Cc: Dr. Luis Echeverria documented in this encounterUniversity Hospitals Beachwood Medical Center11-23-2022 NoteHNO ID: [id number] Author: MANISH Hubbard Service: Radiology Author Type: Wash Tub Machine Operator Type: Progress Notes Filed: 02/23/2022 11:00 [...] BY: MANISH Hubbard February 23, 2022 10:57 [facility]11-23-2022 NoteHNO ID: [id number] Author: Nidia Morelos RN Service: Nursing Author [...] Cruz DATE: February 23, 2022 TIME: 10:33 [facility]11-23-2022 History of Present illness Narrative* Nidia [...] 23, 2022 10:57 AM documented in this encounterUniversity Hospitals Beachwood Medical Center09-20-2022 History of Present illness Narrative* Debbie Echeverria MD - 12/21/2021 1:37 PM EDT December 21, 2021 DXN: Resected T4aN0 desmoplastic melanoma. The lesion was about 4.5mm located on her back with 2 negative SLNs (left axilla). There was no reported neurtropism and only one mitotic figure. Margins were negative. Declined an adjuvant trial in [place]. Baseline imaging today is negative CC: Melanoma [...] with more than 50% of the total gufp-fe-scid time of the visit in counseling / coordination of care. Debbie Echeverria MD documented in this encounterUniversity Hospitals Beachwood Medical Center09-20-2022 Nurse Note* Tiny Mckoy LPN - 12/21/2021 1:20 PM EDT Additional intake questions: Has the patient had fever, nausea, vomiting, diarrhea, constipation, fatigue for > 1 week? Yes, fatigue Does the patient have a decreased appetite? No Does patient want to see a Single Stayer Operator? No (yes to any of above refer patient to schedulers for dietitian appointment) ) Does patient have any new or increased numbness or tingling of extremities? No Is patient interested in fertility information? No Does patient need any prescription refills? No Does patient have an advanced directive in place? No, Patient refused referral to Social Work or Resource Center documented in this encounterUniversity Hospitals Beachwood Medical Center09-02-2022 Miscellaneous Notes* Telephone Encounter - Jaylene Jacobson RN - 12/03/2021 12:49 PM EDT Patient needs a follow up visit (no labs or scans) around 12/25/21. She accepted a visit on 12/21 at 1:30 pm. Jaylene Jacobson RN * Telephone Encounter - Mary Lindsay - 12/01/2021 4:45 PM EDT Ben Cruz is calling Debbie Echeverria MD today regarding [employer] - Other Patient called scheduling to schedule 6 mo follow up but was unable to get thru, so calling office for Dr. Echeverria to get it scheduled. Can she be called once appointment is made? Patient has been identified by name and birthdate. Requesting response back: [phone] (home) [phone] (cell) Mary Lindsay December 01, 2021 documented in this encounterUniversity Hospitals Beachwood Medical Center05-23-2022 History of Present illness Narrative* Luis Licona [...] an updated MRI in 6 months in [place] followed by a virtual visit for further meningioma surveillance, with additional surveillance plan to be developed thereafter. Zhanna Le MD Radiation Oncology Resident [id number] STAFF ADDENDUM I saw and evaluated the [...] brain. Luis Licona MD cc: Debbie Echeverria [id number] [facility] [id number] documented in this encounterUniversity Hospitals Beachwood Medical Center05-23-2022 History of Present illness Narrative* Nidia Morelos [...] 23, 2021 12:14 PM documented in this encounterUniversity Hospitals Beachwood Medical Center03-16-2022 History of Present illness Narrative* Nazanin Moncada [...] 2021 TIME: 10:22 AM * Barbara Gaxiola, tape controlled machine stitcher - 06/16/2021 10:00 AM EDT Radiology Service [...] 16, 2021 10:35 AM documented in this encounterUniversity Hospitals Beachwood Medical Center03-01-2022 History of Present illness Narrative* Barbara Gaxiola [...] 2021 TIME: 11:13 AM [facility] No data available for this section General Surgery [place] Evaluation note* Diagnosis 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 documented in this encounter [facility] note* Diagnosis 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 documented in this encounter [facility] note* Diagnosis Benign neoplasm of meninges (HCC)- Primary Benign neoplasm of cerebral meninges documented in this encounter [facility] note* Diagnosis 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) documented in this encounter [facility] noteNo Mirror42Chumen Wenwen tribr Other Evaluation note* Diagnosis Meningioma (HCC)- Primary Benign neoplasm of cerebral meninges documented in this encounter [facility] note* Diagnosis Meningioma (HCC)- Primary Benign neoplasm of cerebral meninges documented in this encounter [facility] note* Diagnosis Benign neoplasm of meninges (HCC)- Primary Benign neoplasm of cerebral meninges documented in this encounter [facility] note* Diagnosis Benign neoplasm of meninges (HCC)- Primary Benign neoplasm of cerebral meninges documented in this encounter [facility] note* Diagnosis Benign neoplasm of meninges (HCC)- Primary Benign neoplasm of cerebral meninges documented in this encounter [facility] note* Diagnosis Benign neoplasm of meninges (HCC)- Primary Benign neoplasm of cerebral meninges documented in this encounter [facility] note* Diagnosis 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 documented in this encounter [facility] note* Diagnosis 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 documented in this encounter [facility] note* Diagnosis 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 [facility] Diagnosis 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) Liver lesion Other specified disorders of liver documented in this encounter [facility] note* Diagnosis 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 documented in this encounter [facility] general Narrative - Reported* Type Description Date Medical History melanoma Surgical History laminectomy Surgical History c-sectionx 2 Surgical History hysterectomy Surgical History lump removed right wrist Surgical History melanoma removal [facility] general Narrative - Reported* Type Description Date Medical History melanoma Surgical History laminectomy Surgical History c-sectionx 2 Surgical History hysterectomy Surgical History lump removed right wrist Surgical History melanoma removal Surgical History Colonoscopy 03/2023 [facility] Other Hospital Discharge instructions No data available for this section General Surgery [place] [facility] note No data available for this section General Surgery [place] Reason for Referral Specialty Diagnoses / Procedures Referred By Contac t Referred To Contact MR IMAGING Diagnoses Benign neoplasm of meninges (HCC) Procedures MRI BRAIN WO/W IVCON MRI BRAIN BRAIN STEM W/O W/[place] [address] [place] [address] Mr Imaging Referral ID Status Reason Start Date Expiration Date Visits Requested Visits Authorized [id number] Pending Review Auto-Generat ed Referral 08/23/2021 09/22/2022 1 1 Specialty Diagnoses / Procedures Referred By Contac t Referred To Contact MR IMAGING Diagnoses Benign neoplasm of meninges (HCC) Procedures MRI BRAIN WO/W IVCON MRI BRAIN BRAIN STEM W/O W/CONTRAST MATERIAL Trista Bonilla APRN.COUNTER CHECKER [id number] [place] [id number] Mr Imaging Referral ID Status Reason Start Date Expiration Date Visits Requested Visits Authorized [id number] Pending Review Auto-Generat ed Referral 08/29/2022 03/31/2023 1 1 Reason *FU 11/15 screenin g colonoscopy Diagnosis 1 Screen for colon can cer (Z12.11) Referral Organization [facility]ly [facility] elias Referring Provider First Name Lissett Referring Provider Last Name Gary Referring Provider Specialty Family Medi cine Referred Organization [facility] Referred Provider Tucker Ann Referred Address [address] [place], [place],[address] Referred Provider Specialty General Surg katelyn Referral Priority Routine General Notes Louise Livingston 10:47:05 AM >received today, attachments made, notes locked, referral faxed Clinical Notes F: [id number] Specialty Diagnoses / Procedures Referred By Contac t Referred To Contact MR IMAGING Diagnoses Benign neoplasm of meninges (HCC) Procedures MRI BRAIN LOCALIZATION W IVCON UNLISTED MAGNETIC RESONANCE PROCED Gurpreet Beckwith DO, PhD [address] [facility] [address] [place] [id number] Mr Imaging [place] [address] Referral ID Status Reason Start Date Expiration Date V isits Requested Visits Authorized [id number] Closed Auto-Generate d Referral 12/06/2022 1 1 Specialty Diagnoses / Procedures Referred By Contac t Referred To Contact MR IMAGING Diagnoses Benign neoplasm of meninges (HCC) Procedures MRI BRAIN WO/W IVCON MRI BRAIN BRAIN STEM W/O W/[place] [address] [place] [address] Mr Imaging [place] [address] Referral ID Status Reason Start Date Expiration Date V isits Requested Visits Authorized [id number] Closed Auto-Generate d Referral 06/21/2021 09/18/2021 1 1 Specialty Diagnoses / Procedures Referred By Contac t Referred To Contact MR IMAGING Diagnoses 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) Liver lesion Procedures MRI LIVER WO/W IVCON MRI ABDOMEN W/O & W/[place] [address] [place] [address] Mr Imaging [facility] Referral ID Status Reason Start Date Expiration Date V isits Requested Visits Authorized [id number] Closed Auto-Generate d Referral 05/20/2021 07/11/2021 1 1 Specialty Diagnoses / Procedures Referred By Selene t Referred To Contact MR IMAGING Diagnoses Benign neoplasm of meninges (HCC) Procedures MRI BRAIN WO/W IVCON MRI BRAIN BRAIN STEM W/O W/CONTRAST MATERIAL Trista Bonilla APRN.COUNTER CHECKER [address] [place] [address] [place] [address] Referral ID Status Reason Start Date Expiration Date V isits Requested Visits Authorized [id number] Closed Auto-Generate d Referral 08/29/2022 03/31/2023 1 1 Referral ID Status Reason Start Date Expiration Date V isits Requested Visits Authorized [id number] Closed Auto-Generate d Referral 08/23/2021 03/20/2022 1 [...] or prosecute any alcohol or drug abuse patient.[facility] CenterIn the event this information is protected by the Federal Confidentiality of Alcohol and Drug Abuse Patient Records regulations: The Federal rules restrict any use of the information to criminally investigate or prosecute any alcohol or drug abuse patient.[facility] CenterIn the event this information is protected by the Federal Confidentiality of Alcohol and Drug Abuse Patient Records regulations: The Federal rules restrict any use of the information to criminally investigate or prosecute any alcohol or drug abuse patient.[facility] CenterIn the event this information is protected by the Federal Confidentiality of Alcohol and Drug Abuse Patient Records regulations: The Federal rules restrict any use of the information to criminally investigate or prosecute any alcohol or drug abuse patient.[facility] CenterIn the event this information is protected by the Federal Confidentiality of Alcohol and Drug Abuse Patient Records regulations: The Federal rules restrict any use of the information to criminally investigate or prosecute any alcohol or drug abuse patient.[facility] CenterIn the event this information is protected by the Federal Confidentiality of Alcohol and Drug Abuse Patient Records regulations: The Federal rules restrict any use of the information to criminally investigate or prosecute any alcohol or drug abuse patient.[facility] CenterIn the event this information is protected by the Federal Confidentiality of Alcohol and Drug Abuse Patient Records regulations: The Federal rules restrict any use of the information to criminally investigate or prosecute any alcohol or drug abuse patient.[facility] CenterIn the event this information is protected by the Federal Confidentiality of Alcohol and Drug Abuse Patient Records regulations: The Federal rules restrict any use of the information to criminally investigate or prosecute any alcohol or drug abuse patient.[facility] CenterIn the event this information is protected by the Federal Confidentiality of Alcohol and Drug Abuse Patient Records regulations: The Federal rules restrict any use of the information to criminally investigate or prosecute any alcohol or drug abuse patient.[facility] CenterIn the event this information is protected by the Federal Confidentiality of Alcohol and Drug Abuse Patient Records regulations: The Federal rules restrict any use of the information to criminally investigate or prosecute any alcohol or drug abuse patient.[facility] CenterIn the event this information is protected by the Federal Confidentiality of Alcohol and Drug Abuse Patient Records regulations: The Federal rules restrict any use of the information to criminally investigate or prosecute any alcohol or drug abuse patient.[facility] CenterIn the event this information is protected by the Federal Confidentiality of Alcohol and Drug Abuse Patient Records regulations: The Federal rules restrict any use of the information to criminally investigate or prosecute any alcohol or drug abuse patient.[facility] CenterIn the event this information is protected by the Federal Confidentiality of Alcohol and Drug Abuse Patient Records regulations: The Federal rules restrict any use of the information to criminally investigate or prosecute any alcohol or drug abuse patient.[facility] CenterIn the event this information is protected by the Federal Confidentiality of Alcohol and Drug Abuse Patient Records regulations: The Federal rules restrict any use of the information to criminally investigate or prosecute any alcohol or drug abuse patient.[facility] CenterIn the event this information is protected by the Federal Confidentiality of Alcohol and Drug Abuse Patient Records regulations: The Federal rules restrict any use of the information to criminally investigate or prosecute any alcohol or drug abuse patient.[facility] CenterIn the event this information is protected by the Federal Confidentiality of Alcohol and Drug Abuse Patient Records regulations: The Federal rules restrict any use of the information to criminally investigate or prosecute any alcohol or drug abuse patient.[facility] CenterIn the event this information is protected by the Federal Confidentiality of Alcohol and Drug Abuse Patient Records regulations: The Federal rules restrict any use of the information to criminally investigate or prosecute any alcohol or drug abuse patient.[facility] CenterIn the event this information is protected by the Federal Confidentiality of Alcohol and Drug Abuse Patient Records regulations: The Federal rules restrict any use of the information to criminally investigate or prosecute any alcohol or drug abuse patient.[facility] CenterIn the event this information is protected by the Federal Confidentiality of Alcohol and Drug Abuse Patient Records regulations: The Federal rules restrict any use of the information to criminally investigate or prosecute any alcohol or drug abuse patient.[facility] CenterIn the event this information is protected by the Federal Confidentiality of Alcohol and Drug Abuse Patient Records regulations: The Federal rules restrict any use of the information to criminally investigate or prosecute any alcohol or drug abuse patient.[facility] CenterIn the event this information is protected by the Federal Confidentiality of Alcohol and Drug Abuse Patient Records regulations: The Federal rules restrict any use of the information to criminally investigate or prosecute any alcohol or drug abuse patient.[facility] CenterIn the event this information is protected by the Federal Confidentiality of Alcohol and Drug Abuse Patient Records regulations: The Federal rules restrict any use of the information to criminally investigate or prosecute any alcohol or drug abuse patient.[facility] CenterIn the event this information is protected by the Federal Confidentiality of Alcohol and Drug Abuse Patient Records regulations: The Federal rules restrict any use of the information to criminally investigate or prosecute any alcohol or drug abuse patient.[facility] CenterIn the event this information is protected by the Federal Confidentiality of Alcohol and Drug Abuse Patient Records regulations: The Federal rules restrict any use of the information to criminally investigate or prosecute any alcohol or drug abuse patient.[facility] CenterIn the event this information is protected by the Federal Confidentiality of Alcohol and Drug Abuse Patient Records regulations: The Federal rules restrict any use of the information to criminally investigate or prosecute any alcohol or drug abuse patient.[facility] CenterIn the event this information is protected by the Federal Confidentiality of Alcohol and Drug Abuse Patient Records regulations: The Federal rules restrict any use of the information to criminally investigate or prosecute any alcohol or drug abuse patient.[facility] Reason for Visit (unrecogniz ed section and [...] COMPLEX CRANIAL LESION [facility] [address] [address] Referral ID Status Reason Start Date Expiration Date Visits Re quested Visits Authorized [id number] [address] Specialty Diagnoses / Procedures Referred By Contac t Referred To Contact ADMITTING Diagnoses Benign neoplasm of meninges (HCC) Procedures RADIATION DELIVERY STEREOTACTIC CRANIAL [place] STEREOTACTIC RADIOSURGERY 1 COMPLEX CRANIAL LES RADIATION [place] STEREOTACTIC RADIOSURGERY (SRS) [place] CRANIAL LESION(S) 1 SESSION MULTI-SOURCE COBALT STEREOTACTIC RADIOSURGERY 1 COMPLEX CRANIAL LESION [facility] [address] [address] Reason Comments 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 Patient Reason Comments Established Patient Reason Comments Recheck Reason Comments Consult GK consult for LF me ningioma 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 Reason Comments Procedure GKRS Reason Comments Radiology MRI Specialty Diagnoses / Procedures Referred By Contac t Referred To Contact MR IMAGING Diagnoses 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) New daily persistent headache Other headache syndrome Procedures MRI BRAIN WO/W IVCON MRI BRAIN BRAIN STEM W/O W/[place] [address] [place] [address] Mr Imaging [place] [address] Referral ID Status Reason Start Date Expiration Date V isits Requested Visits Authorized [id number] Closed Auto-Generate d Referral 04/29/2021 06/13/2021 1 1 Specialty Diagnoses / Procedures Referred By Contac t Referred To Contact MR IMAGING Diagnoses Benign neoplasm of meninges (HCC) Procedures MRI BRAIN WO/W IVCON MRI BRAIN BRAIN STEM W/O W/[place] [address] [place] [phone] Mr Imaging [place] [address] Referral ID Status Reason Start Date Expiration Date V isits Requested Visits Authorized [id number] Closed Auto-Generate d Referral 06/21/2021 09/18/2021 1 1 Specialty Diagnoses / Procedures Referred By Contac t Referred To Contact MR IMAGING Diagnoses 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) Liver lesion Procedures MRI LIVER WO/W IVCON MRI ABDOMEN W/O & W/[place] [address] [place] [phone] Mr [facility] [place] [address] Referral ID Status Reason Start Date Expiration Date V isits Requested Visits Authorized [id number] Closed Auto-Generate d Referral 05/20/2021 07/11/2021 1 1 Specialty Diagnoses / Procedures Referred By Contac t Referred To Contact MR IMAGING Diagnoses Benign neoplasm of meninges (HCC) Procedures MRI BRAIN WO/W IVCON MRI BRAIN BRAIN STEM W/O W/CONTRAST MATERIAL Trista Bonilla APRN.CNP [address] [place] [phone] Mr [facility] [place] [address] Referral ID Status Reason Start Date Expiration Date V isits Requested Visits Authorized [id number] Closed Auto-Generate d Referral 08/29/2022 03/31/2023 1 1 Referral ID Status Reason Start Date Expiration Date V isits Requested Visits Authorized [id number] Closed Auto-Generate d Referral 08/23/2021 03/20/2022 1 1 Reason Comments Gamma Knife Follow-up INFORMATION SOURCE (unrecogn ized section and content) DATE CREATED AUTHOR 06/10/2022 [facility] DATE CREATED AUTHOR AUTHOR'S ORGANIZ ATION 09/15/2022 [facility] DATE CREATED AUTHOR AUTHOR'S ORGANIZ ATION 02/04/2023 [facility] DATE CREATED AUTHOR AUTHOR'S ORGANIZ ATION 02/08/2023 [facility] DATE CREATED AUTHOR AUTHOR'S ORGANIZ ATION 03/11/2023 Ritesh Pickett [facility] Care Teams (unrecognized sec tion and content) Hospice Clinical Marketer Relationship Specialty Start Date End Date Lissett Vega MD [address] [facility] [place] [id number] PCP - General Family Medicine 01/17/23 Hospice Clinical Marketer Relationship Specialty Start Date End Date Lissett Vega MD [address] [facility] [place] [address] PCP - General Family Medicine 01/17/23 Hospice Clinical Marketer Relationship Specialty Start Date End Date Lissett Vega MD [address] [facility] [place] [address] PCP - General Family Medicine 01/17/23 Hospice Clinical Marketer Relationship Specialty Start Date End Date Lissett Vega MD [address] [facility] [place] [address] PCP - General Family Medicine 01/17/23 Hospice Clinical Marketer Relationship Specialty Start Date End Date Lissett Vega MD [address] [facility] [place] [address] PCP - General Family Medicine 01/17/23 Hospice Clinical Marketer Relationship Specialty Start Date End Date Lissett Vega MD [address] [facility] [place] [address] PCP - General Family Medicine 01/17/23 [...] BE BASED ON THE PRIMARY CLINICAL RECORDS. [facility] [employer] [facility]. provides no warranty or guarantee of the accuracy or completeness of information in this document.
== END 2023-03-22 09:54 | disposition home or self-care (01) ==
LOC: CT 09:53
PROVIDERS: PCP Family Medicine; Visit Provider Family Medicine
DX: Z01.810 Encounter for preprocedural cardiovascular examination (principal); M21.622 Bunionette of left foot; M76.72 Peroneal tendinitis, left leg; R10.32 Left lower quadrant pain; R31.29 Other microscopic hematuria; K57.32 Diverticulitis of large intestine without perforation or abscess without bleeding
CPT/HCPCS: 74176; 93005

== ENCOUNTER 2023-03-30 09:35 | Day surgery (SDC) | payer OTHER, SELFPAY ==
[2023-03-22 09:22] VITALS: PULSE 79; RESP 16; TEMP 36.3; O2SAT 97; BMI 35.0
[2023-03-30] VITALS (14 sets, daily range): BP systolic 124–155; BP diastolic 71–96; PULSE 82–106; RESP 14–22; TEMP 36.2–36.8; O2SAT 93–98; BMI 34.5
--- NOTE | 2023-03-30 | FL_ITS ---
[place] [id number] Patient Name: BEN TABOR MRN: [id number] date: 1975 Sex: F Assigned Patient Location: [facility] Current Patient Location: Accession/Order Number: [id number] Exam Date: 03/30/2023 13:30 Report Date: 04/04/2023 09:12 At the request of: ALEKSANDER FALCON Procedure: FL fluoroscopy <1hr NON-READ EXAM: FL fluoroscopy <1hr NON-READ HISTORY: BUNIONECTOMY TECHNIQUE: FINDINGS: Please see Operative Report. Electronically authenticated by: RADIOLOGIST NO Date: 04/04/2023 09:12
--- OUTSIDE RECORDS SUMMARY | 2023-03-30 09:41 | XMS_ITS | CCD ---
Author Name Unknown Address [address] [place] [address] Organization [facility] Care Team Providers Care Operations Dispatcher Name Role Phone Unavailable Primary Care Provider Jacqueline VEGA, DR LISSETT Fung Admitting Unavailable VEGA, DR LISSETT Fung Attending Unavailable VEGA, DR LISSETT Fung Primary Care Unavailable [facility] [place] Consulting Unavailable VEGA, DR LISSETT [...] Unavailable Lissett Vega MD Primary Care Provider [phone] GURPREET BECKWITH Attending Unavailable GURPREET BECKWITH Referring [...] ECHEVERRIA Referring Unavailable LUIS LICONA Attending Unavailable GURPREET BECKWITH Attending Unavailable DEBBIE ECHEVERRIA Attending Unavailable EBCKWITH, GURPREET Referring Unavailable VEGA, LISSETT E Primary Care Unavailable VEGA, LISSETT E Primary Care Unavailable PENDBURAK CLARKE Attending Unavailable VEGA, LISSETT E Primary Care Unavailable PENDVINCE, BURAK Attending Unavailable TRISTA BONILLA Referring Unavailable BECKWITH, GURPREET Admitting Unavailable BECKWITH, GURPREET Attending Unavailable BECKWITH, GURPREET Referring Unavailable VEGA, LISSETT E Primary Care Unavailable BECKWITH, GURPREET Admitting Unavailable BECKWITH, GURPREET Attending Unavailable BECKWITH, GURPREET Referring Unavailable VEGA, LISSETT E Primary Care Unavailable LISSETT VEGA Primary Care Physician [phone] Debbie DE LOS SANTOS Attending Unavailable Allergies Allergy Classification Reported Allergen(s) Allergy Type Date of Onset Reaction(s) Facility (4 sources) patient allergy list reviewed by nurse or physicia Propensity to adverse reactions Comment:Done [employer] Other (4 sources) Allergies Reconciled Propensity to adverse reactions Unknown [employer] Other (1 source) No Known Medication Allergies; Translations: [No Known Medication Allergies] Propensity to adverse reactions (disorder) [facility] Repository Medications Current Medications Medication Drug Class(es) Dates Sig (Normalized) Sig (Original) 1.5 ML inclisiran 189 MG/ML Prefilled Syringe [Leqvio] (5 sources) Start: 02-01-2023 Leqvio 284 mg/1.5 mL subcutaneous solution 0 Refill(s), Refills(s) 0 Start Date: 02/01/23 Status: Ordered Leqvio 284 MG/1. 5ML as directed Subcutaneous Active ciprofloxacin 500 mg oral tablet (1 source) Quinolone Antimicrobial take 1 tablet by mouth every twelve hours Ciprofloxacin HCl 500 MG 1 tablet Orally every 12 hrs for 7 days Active iv contrast (will be provided with radiology test) (2 sources) Start: 2021 End: 2021 inject 1 dose intravenously once iv contrast [...] link leqvio 284 mg/1.5ml solution prefilled syringe (2 sources) Leqvio 284 MG/1. 5ML as directed Subcutaneous [...] MRI tamsulosin hydrochloride 0.4 mg oral capsule (2 sources) alpha-Adrenergic Ivan take 1 capsule by mouth [...] tablet (7 sources) Histamine-2 Receptor Antagonist Start: take 1 tablet by mouth once daily [...] 284 mg/1.5 mL injection (20 sources) Start: 12-16-19 inclisiran (LEQVIO) 284 mg/1.5 mL injection meloxicam 15 mg oral tablet (20 sources) Nonsteroidal Anti-inflammatory Drug Start: 12-02-19 meloxicam (MOBIC) 15 mg tablet omeprazole 20 mg delayed release oral capsule (20 sources) Proton Pump Inhibitor take 1 capsule by mouth once daily omeprazole (PRILOSEC) 20 mg capsule Take 20 mg by mouth once daily. 0 Active Comment on above: Take 20 mg by mouth once daily. rosuvastatin calcium 10 mg oral tablet (2 sources) HMG-CoA Reductase Inhibitor End: 06-22-19 take 1 tablet by mouth once daily [...] Onset: 03-23-2015 Resolved: 02-01-2023 Chronic Esophageal disorders (4 sources) Esophageal reflux finding; Translations: [Esophageal reflux] Chronic Inflammation; infection of eye (except that caused by tuberculosis or sexually transmitteddisease) (4 sources) External hordeolum; Translations: [Hordeolum externum unspecified eye, unspecified eyelid] Episodic Melanomas of skin (4 sources) Malignant melanoma of trunk; Translations: [Malignant melanoma of other part of trunk] Chronic Neoplasms of unspecified nature or uncertain behavior (1 source) Neoplasm of meninges 02-17-2023 Episodic Nonmalignant breast conditions (4 sources) Disorder of breast; Translations: [Other specified [...] (HCC)] Onset: 01-27-2023 Chronic Other circulatory disease (4 sources) Elevated blood-pressure reading without diagnosis of hypertension; Translations: [Elevated blood-pressure reading, without diagnosis of hypertension] Episodic Other connective tissue disease (1 source) Plantar fascial fibromatosis Episodic Other connective tissue disease (4 sources) Spasm; Translations: [Other muscle spasm] Episodic Other connective tissue disease (4 sources) Pain in left foot; Translations: [Pain in left foot] Episodic Other liver diseases (1 source) Lesion of liver; Translations: [Liver disease, unspecified] 06-16-2021 Chronic Other non-traumatic joint disorders (4 sources) Disorder of bursa of shoulder region; Translations: [Unspecified disorders of bursae and tendons in shoulder region] Episodic Other non-traumatic joint disorders (4 sources) Shoulder joint pain; Translations: [Pain in unspecified shoulder] Episodic Other nutritional; endocrine; and metabolic disorders (7 sources) Body mass index 30+ - obesity; Translations: [Body mass index (BMI) 36.0-36.9, adult] 02-17-2023 Chronic Other nutritional; endocrine; and metabolic disorders (6 sources) Obesity caused by energy imbalance; Translations: [Other obesity due to excess calories] Chronic Other nutritional; endocrine; and metabolic disorders (1 source) Other obesity due to excess calories Chronic Other nutritional; endocrine; and metabolic disorders (1 source) Body mass index (BMI) 36.0-36.9, adult Chronic Other nutritional; endocrine; and metabolic disorders (20 sources) Obese class II; Translations: [Body mass index (BMI) 38.0-38.9, adult] Onset: 11-03-2016 Resolved: 09-08-2020 Chronic Other nutritional; endocrine; and metabolic disorders (4 sources) Obese class I; Translations: [Body mass index 34.0-34.9, adult] Onset: 11-03-2016 Chronic Other nutritional; endocrine; and metabolic disorders (1 source) Morbid obesity 02-01-2023 Chronic Other screening for suspected conditions (not mental disorders or infectious disease) (14 sources) Encounter for screening for malignant neoplasm of cervix; Translations: [Encounter for screening mammogram for malignant neoplasm of breast] Onset: 09-08-2021 Episodic Residual codes; unclassified (4 sources) Acquired absence of genital organ; Translations: [Acquired absence of other genital organ(s)] Episodic Spondylosis; intervertebral disc disorders; other back problems (4 sources) Displacement of lumbar intervertebral disc without myelopathy; Translations: [Other intervertebral disc displacement, lumbar region] Chronic Sprains and strains (4 sources) Sprain of shoulder and upper arm; Translations: [Sprain and strain of unspecified site of shoulder and upper arm] Episodic Unclassified (1 source) Encounter for other preprocedural examination; Translations: [Encounter for other preprocedural examination] Onset: 09-12-2022 Unclassified (1 source) Patient encounter status 02-01-2023 Viral infection (4 sources) Disease caused by 2019-nCoV; Translations: [COVID-19] Past or Other Problems Problem Classification Problem Date Documented Date Episodic/Chronic Genitourinary symptoms and ill-defined conditions (5 sources) Dysuria; Translations: [Dysuria] Onset: 08-23-2018 Episodic Immunizations and screening for infectious disease (1 source) Encounter for screening for human papillomavirus (HPV); Translations: [ENC SCREENING HUMAN PAPILLOMAVIRUS] Onset: 09-15-2021 Episodic Menstrual disorders (8 sources) Excessive and frequent menstruation; Translations: [Excessive and frequent menstruation with regular cycle] Resolved: 09-16-2019 Chronic Noninfectious gastroenteritis (4 sources) Non-infective enteritis and colitis; Translations: [Noninfective gastroenteritis and colitis, unspecified] Onset: 02-26-2014 Episodic Other aftercare (4 sources) Surgical follow-up; Translations: [Surgery follow-up examination] Onset: 08-22-2007 Resolved: 09-02-2019 Episodic Other aftercare (4 sources) History and physical examination, follow-up; Translations: [Encounter for follow-up examination after completed treatment for conditions other than malignant neoplasm] Resolved: 09-08-2020 Episodic Other connective tissue disease (4 sources) Disorder of soft tissue; Translations: [Other specified soft tissue disorders] Resolved: 09-08-2020 Episodic Other female genital disorders (4 sources) Abnormal uterine bleeding; Translations: [Abnormal uterine and vaginal bleeding, unspecified] Resolved: 09-16-2019 Chronic Other female genital disorders (4 sources) Hypertrophy of uterus; Translations: [Hypertrophy of uterus] Resolved: 09-16-2019 Episodic Other nutritional; endocrine; and metabolic disorders (4 sources) Obesity; Translations: [Obesity, unspecified] Resolved: 09-08-2020 Chronic Other skin disorders (4 sources) Disorder of skin and/or subcutaneous tissue; Translations: [Unspecified disorder of skin and subcutaneous tissue] Onset: 09-14-2018 Episodic Otitis media and related conditions (4 sources) Eustachian tube salpingitis; Translations: [Unspecified Eustachian salpingitis, bilateral] Onset: 11-03-2016 Episodic Residual codes; unclassified (1 source) Family history of malignant neoplasm of breast; Translations: [FAMILY HX MALIG NEOPLASM OF BREAST] Onset: 09-11-2021 Episodic Residual codes; unclassified (1 source) Family history of malignant neoplasm of other organs or systems; Translations: [FAM HX MALIG NEOPLASM OTH ORGN/SYS] Onset: 09-11-2021 Episodic Superficial injury; contusion (4 sources) Contusion of right foot; Translations: [Contusion of right foot, initial encounter] Onset: 11-03-2016 Episodic Unclassified (4 sources) Other symptoms referable to forearm joint; Translations: [Other symptoms referable to forearm joint] Onset: 10-14-2015 Unclassified (4 sources) Long-term current use of drug therapy; Translations: [Long-term (current) use of other medications] Onset: 09-22-2015 Results Test Name Value Interpretation Reference Range Facility Outside Colonoscopyon 2022 Outside Colonoscopy [id number]#1.0 0TIFF [facility] Reminderson 03-09-2023 Reminders - From: Veronica Jack LPN To: N - Clinical; Sent: 03/09/2023 13:42:54 EST Show up: 02/06/2033 07:00:00 EST Subject: colonoscopy recall Due Date/Time: 03/08/2033 07:00:00 EST Reminder/Recall Patient due for screening colonoscopy 03/08/2033. [facility] Consent for Procedure/Surger yon 02-21-2023 Consent for Procedure/Surgery [id number]. 00TIFF [facility] Facesheeton 02-20-2023 Facesheet [id number]#1. 00TIFF [facility] Ambulatory Visit Summaryon 1 04-19-2022 Ambulatory [...] you for choosing us for your care. [facility] Louise 02-07-2023 [facility] Telephone ([facility]) BEN CRUZ ([id number]) 1975 F Date Time Provider Department 02/07/23 JOHANN HENRIQUEZ [facility] During your visit today, we recorded [...] by: Anton Terrell RN - Fully Assessed Prescriptions as of 02/07/2023 [...] Encounter Status:Closed by JOHANN HENRIQUEZ on 02/07/23 [facility] Louise 02-06-2023 [facility] Telephone ([facility]) BEN CRUZ ([id number]) 1975 F Date Time Provider Department 02/06/23 JOHANN HENRIQUEZ [facility] During your visit today, we recorded the following information about you: Johann Henriquez RN 02/06/2023 1:20 PM Signed Calling Ben for post-GKRS follow-up. Unable to reach at this time. Left voicemail. Johann Henriquez RN 02/07/2023 1:19 PM Signed 2nd attempt to reach out, patient unavailable. Will send Curazy message with contact information to call if [...] Encounter Status:Closed by JOHANN HENRIQUEZ on 02/07/23 [facility] 01-27-2023 CNOP Operative Note (Enc) ([facility]) Encounter Status:Closed by GURPREET BECKWITH on 01/27/23 [facility] Operative Note (Enc) (NSCAMN) Encounter Status:Closed by GURPREET BECKWITH on 01/27/[address] [facility] CNOVon 01-27-2023 CNOV Office Visit (NSC[facility] ) BEN CRUZ ([id number]) 1975 F Date Time Provider Department 01/27/23 [...] 7.1 AL (more content not included)... Normal [facility] CNOV Office Visit (NOGKCA ) BEN CRUZ ([id number]) 1975 F Date Time Provider Department 01/27/23 8:30 AM MASK PLACEMENT NEUS CA SHELBIE [facility] During your visit today, we recorded the [...] Patient's Age: 47 Menstruation Status: Hysterectomy 2019 [facility] Results: N/A test not performed QC: Yes, testing is valid (or protocol followed for invalid testing). Reference range: Normal Value = Negative for hCG. POC performed by: Gayle Acevedo RN 0924 4 mg Decadron PO given prior to GKRS per order of Dr. Virgil Beckwith 0946 GKRS start time. 1016 GKRS end time. 1025 Discharge instructions given to patient; instructions reviewed by this RN; patient/family verbalized understanding; patient discharged via/with BIGG Segura Kaitlin, RN 01/27/2023 8:35 AM Addendum [facility] Discharge Instructions As with [...] a physician or hospital other than the [facility] with any problem related to [...] may your physician, Dr. Virgil Beckwith at [phone] Monday through Monday 8:00 am to 5:00 pm, or call the Gamma Knife nurse Monday through Monday 8:00 am to 4:00 pm at [phone]. In the evening or on weekends, call [phone] or toll-free [phone] and ask the seal extrusion operator to page your neurosurgeon's resident carbon printer. Referring Provider: GURPREET BECKWITH [[id number]] Allergies As [...] [D32.9] 01/27/2023 Other instructions from your clinician: [facility] Discharge Instructions As with any surgery there are risks and potential side effects. Th (more content not included)... Normal [facility] CT BRAIN WO IVCONon 01-28-[address] BRAIN WO IVCON * * *Final [...] were required COMPARISON: Concurrent brain MRI RESULT: It Application Development Manager (topogram) images: No additional findings. Post-operative change: [...] refer to concurrent brain MRI for superior visualization/descript ion of soft tissue findings. There is no [...] OF EXTRA-AXIAL ENHANCING TISSUE SEEN ON MRI Account Manager Education: TORI Transcribe Date/Time: Jan 27 2023 8:21A Dictated by : ESTUARDO WHALEY MD This examination was interpreted and the report reviewed and electronically signed by: ESTUARDO WHALEY MD on Jan 27 2023 8:23AM EST [id number] Normal [facility] MRI BRAIN LOCAL W IVCONon MRI [...] FRONTAL LOBE, UNCHANGED GOING BACK TO 06/01/2021 Account Manager Education: TORI Transcribe Date/Time: Jan 27 2023 8:08A Dictated by : ESTUARDO WHALEY MD This examination was interpreted and the report reviewed and electronically signed by: ESTUARDO WHALEY MD on Jan 27 2023 8:20AM EST [id number] Normal [facility] MRI BRAIN LOCALIZATION W IVC ONon 01-27-2023 [facility] Physician Referralon 023 Physician Referral [id number] 0TIFF Normal [facility] Physician Referralon 023 Physician Referral [id number] 0TIFF Normal [facility] CNOVSPon 12-22-2022 CNOVSP Visit (SP) Office (HEMCA3) BEN CRUZ ([id number]) 1975 F Date Time Provider Department 12/22/22 [...] were negative. Declined an adjuvant trial in [place]. Baseline imaging today is negative CC: Melanoma [...] No Does patient want to see a Bench Press Operator? No (yes to any of above [...] for Encounter Date Provider Department Center 12/22/2022 [id number] ECHEVERRIA [facility] [place] [facility] Prescriptions as of 12/23/2022 - meloxicam (MOBIC) 15 mg tablet - inclisiran (LEQVIO) 284 mg/1.5 mL injection - omeprazole (PRILOSEC) 20 mg capsule Take 20 mg by mouth once daily. Problem List As Of Date: 12/22/2022 (None) Visit Notes: >> Ava Urbina LPN [facility] Dec 22, 2022 10:14 AM Status: Signed Additional intake questions: Has the patient had fever, nausea, vomiting, diarrhea, constipation, fatigue for > 1 week? No Does the patient have a decreased appetite? No Does patient want to see a Bench Press Operator? No (yes to any of above refer patient to schedulers for dietitian appointment) ) Does patient have any new or increased numbness or tingling of extremities? No Is patient interested in fertility information? No Does patient need any prescription refills? No Does patient have an advanced directive in place? No, Patient refused referral to Social Work or [facility] BEN CRUZ ([id number]) 1975 F Date Time Provider Department 11/15/22 BETZY HEARD [facility] During your visit today, we recorded the following information about you: Betzy Heard RN 11/15/2022 2:04 PM Signed Calling Ben to follow up on Curazy message about scheduling gamma knife for 01/27/2023 No answer, left message stating that I'll go ahead and place the GK orders. Reminded to disregard ANY appointment times she sees in Curazy, any automated text reminders or automated phone calls for 01/27/23 She will receive a call from the GK nurse or radiation therapist the day before with her arrival time. If she has any questions, I left office phone # for call back or she can send a Curazy message. I will send out a GK folder with additional information related to Mask Based Gamma Knife Radiosurgery Betzy Heard RN, BSN Medical Educator [facility] Allergies As of Date: 11/15/2022 (No Known Allergies) Date Reviewed: 10/19/2022 Reviewed by: Trista Bonilla APRN.BOLT CUTTER - Fully Assessed Reason for Visit: Medical Educator - Other [3602] Cmt: Schedule gamma knife 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 Prescriptions as of 11/15/2022 - meloxicam (MOBIC) 15 mg tablet - inclisiran (LEQVIO) 284 mg/1.5 mL injection - omeprazole (PRILOSEC) 20 mg capsule Take 20 mg by mouth once daily. Problem List As Of Date: 11/15/2022 (None) Encounter Status:Closed by BETZY HEARD [facility]15[facility]22 [facility] ([facility]) BEN CRUZ ([id number]) 1975 F Date Time Provider Department 10/20/22 BETZY HEARD [facility] During your visit today, we recorded the following information about you: Betzy Heard, BIGG 10/20/2022 11:56 AM Signed Time Frame: As soon as can be scheduled - can be virtual or in clinic Orders: n/a Provider: Tang Referring: Pelon Diagnosis: meningioma Allergies As of Date: 10/20/2022 (No Known Allergies) Date Reviewed: 10/19/2022 Reviewed by: Trista Bonilla APRN.[facility] - Fully Assessed Reason for Visit: GIN - new pt consult with Dr. Beckwith [Other] Prescriptions as of 11/10/2022 - meloxicam (MOBIC) 15 mg tablet - inclisiran (LEQVIO) 284 mg/1.5 mL injection - omeprazole (PRILOSEC) 20 mg capsule Take 20 mg by mouth once daily. Problem List As Of Date: 10/20/2022 (None) Encounter Status:Closed by BETZY HEARD on 11/10/22 [facility] MRI BRAIN WO/W IVCONon 10-17 MRI BRAIN WO/W IVCON * * *Final Report* * * DATE OF EXAM: Oct 17 2022 11:20AM [facility] 0295 - MRI BRAIN WO/W IVCON / [...] with air-fluid level suggestive of acute/active sinusitis. Account Manager Education: [facility] Transcribe Date/Time: Oct 17 2022 11:35A Dictated by : CHUCKY BRAY MD This examination was interpreted and the report reviewed and electronically signed by: CHUCKY BRAY MD on Oct 17 2022 11:45AM EST [id number] Normal [facility] Complete Blood Count Auto Di ffon 09-12-2022 Basophils (Bld) [#/Vol] 0.1 10*3/uL Normal 0.0-0.2 [facility] Comment on above: Result Comment: PERF ORMED BY: [facility] [address] [place] [address] PATHOLOGIST ROCK SPLITTER ARNULFO STYLES M.D. Performed By: #### C BC #### [facility] [address] [place] [address] [place] Basophils/100 WBC (Bld) 0.7 % Normal . [facility] Comment on above: Performed By: #### C BC #### [facility] [address] [place] [address] [place] Eosinophils (Bld) [#/Vol] 0.2 10*3/uL Normal 0.0-0.45 [facility] Comment on above: Performed By: #### C BC #### [facility] [address] [place] [address] [place] Eosinophils/100 WBC (Bld) 2.7 % Normal . [facility] Comment on above: Performed By: #### C BC #### [address] Erythrocyte distribution width (RBC) [Ratio] 12.9 % Normal 11.9-15.3 [facility] Comment on above: Performed By: #### C BC #### [address] Hematocrit (Bld) [Volume fraction] 41.8 % Normal 34.0-46.4 [facility] Comment on above: Performed By: #### C BC #### [address] Hemoglobin (Bld) [Mass/Vol] 14.3 g/dL Normal 11.8-15.4 [facility] Comment on above: Performed By: #### C BC #### [place] [address] [place] Lymphocytes (Bld) [#/Vol] 2.0 10*3/uL Normal 1.00-4.8 [facility] Comment on above: Performed By: #### C BC #### [place] [address] [place] Lymphocytes/100 WBC (Bld) 25.3 % Normal . [facility] Comment on above: Performed By: #### C BC #### [address] MCH (RBC) [Entitic mass] 29.8 pg Normal 24.7-34.3 [facility] Comment on above: Performed By: #### C BC #### [address] MCV (RBC) [Entitic vol] 87.2 fL Normal 80-100 [facility] Comment on above: Performed By: #### C BC #### [address] Mean Corpuscular HGB Conc 34.2 g/dL Normal 32.0-35.0 [facility] Comment on above: Performed By: #### C BC #### [address] Monocytes (Bld) [#/Vol] 0.7 10*3/uL Normal 0.0-0.8 [facility] Comment on above: Performed By: #### C BC #### [address] Monocytes/100 WBC (Bld) 9.1 % Normal . [facility] Comment on above: Performed By: #### C BC #### [address] Neutrophils (Bld) [#/Vol] 4.8 10*3/uL Normal 1.8-7.7 [facility] Comment on above: Performed By: #### C BC #### [address] Neutrophils/100 WBC (Bld) 62.2 % Normal . [facility] Comment on above: Performed By: #### C BC #### [address] NRBC% 0.4 /100{WBC} Normal 0-0.5 [facility] Comment on above: Performed By: #### C BC #### [address] Platelet mean volume (Bld) [Entitic vol] 7.5 fL Normal 6.3-10.7 [facility] Comment on above: Performed By: #### C BC #### [facility] [address] Platelets (Bld) [#/Vol] 225 10*3/uL Normal 150-450 [facility] Comment on above: Performed By: #### C BC #### [facility] [address] RBC (Bld) [#/Vol] 4.80 10*6/uL Normal 3.60-5.00 [facility] Comment on above: Performed By: #### C BC #### [facility] [address] WBC (Bld) [#/Vol] 7.7 10*3/uL Normal 3.8-11.6 [facility] Comment on above: Performed By: #### C BC #### [address] XR chest 2V*on 09-12-2022 XR chest 2V* [facility] [address] [place] [address] [place] [address] XRay Report Signed Patient: Ben Cruz MR#: [id number] 3 : 1975 Acct:[id number] Age/Sex: 47 / F ADM Date: 09/12/22 Loc: [place] Room: Type: [facility] Attending Dr: Taz Rossi DPM Copies to: [...] Florentino Woods M.D.09/12/2022 4:53 PM Dictation Location: [facility]-- Transcribed By: LINDA 09/12/221652 Dictated By: Florentino Woods II, MD 09/12/221651 Signed By: 09/12/221652 [facility] Louise 08-31-2022 [place] Telephone (RADRMN) BEN CRUZ ([id number]) 1975 F Date Time Provider Department 08/31/22 LUIS LICONA During your visit today, we recorded the following information about you: Adriana Brown 08/31/2022 4:12 PM Signed Patient called in to ask for a prescription of Atavan [facility] prior to her scheduled [facility] on 09/05. Prescription should be sent to the [facility] in [facility]. [facility] [phone] [place] [address] Trista Bonilla APRN.BOLT CUTTER 08/31/2022 4:35 PM Signed Ativan sent to preferred pharmacy per patient request prior to MRI. PDMP website checked and validated. All prescriptions have been APPROPRIATELY filled. No suspicious activity was identified. 08/31/2022 by Trista Bonilla APRN.BOLT CUTTER Allergies As of Date: 08/31/2022 (No Known Allergies) Date Reviewed: 08/31/2022 Reviewed by: Trista Bonilla APRN.BOLT CUTTER - Fully Assessed Reason for Visit: Medical Educator - Other [1317] Visit Diagnosis:Malignant melanoma of torso excluding breast [...] Encounter Status:Closed by TRISTA BONILLA on 08/31/22 [facility]SP[facility] 06-21-[facility]22 CNOVSP Visit (SP) Office ([facility]) BEN CRUZ ([id number]) 1975 F Date Time Provider Department 06/21/22 10:30 AM DEBBIE ECHEVERRIA [facility] During your visit [...] No Does patient want to see a Bench Press Operator? No (yes to any of above [...] were negative. Declined an adjuvant trial in [place]. Baseline imaging today is negative CC: Melanoma [...] with more than 50% of the total dmaq-ko-ksui time of the visit in counseling / coordination of care. Debbie Echeverria MD Referring Provider: DEBBIE ECHEVERRIA [[id number]] Allergies As of Date: 06/21/2022 (No Known [...] for Encounter Date Provider Department Center 06/21/2022 [id number] ECHEVERRIA [facility] Prescriptions as of 06/21/2022 - meloxicam (MOBIC) 15 mg tablet - inclisiran (LEQVIO) 284 mg/1.5 mL injection - omeprazole (PRILOSEC) 20 mg capsule Take 20 mg by mouth once daily. Problem List As Of Date: 06/21/2022 (None) Visit Notes: >> Vanessa Giang LPN [place] Jun 21, 2022 10:29 AM Status: Signed Additional intake questions: Has the patient had fever, nausea, vomiting, diarrhea, constipation, fatigue for > 1 week? Yes, fatigue and Provider Notified Does the patient have a decreased appetite? No Does patient want to see a Bench Press Operator? No (yes to any of above [...] Status:Closed by DEBBIE ECHEVERRIA on 06/21/[address] [facility] MRI BRAIN WO/W IVCONon 02-23 MRI BRAIN WO/W IVCON * * *Final Report* * * DATE OF EXAM: Feb 23 2022 11:31AM [facility] 0295 - MRI BRAIN WO/W IVCON / [...] unremarkable MRI brain with and without contrast. Account Manager Education: TORI Transcribe Date/Time: Feb 23 2022 11:50A Dictated by : CARLITOS MCGUIRE MD This examination was interpreted and the report reviewed and electronically signed by: CARLITOS MCGUIRE MD on Feb 23 2022 11:55AM EST [id number] Normal [facility] CBC AUTO DIFFon 11-18-2021 BASO # 0.0 103/ul Normal 0.0-0.1 [facility] Comment on above: Performed By: #### H FPFCBC #### [facility] [address] [place] [address] Dr. Arcenio Billy Basophils/100 WBC (Bld) 0.4 % Normal 0.2-2.0 [facility] Comment on above: Performed By: #### H FPFCBC #### [facility] [address] [place] [address] Dr. Arcenio Billy EO # 0.2 103/ul Normal 0.0-0.7 [facility] Comment on above: Performed By: #### H FPFCBC #### [facility] [address] [place] [address] Dr. Acrenio Billy Eosinophils/100 WBC (Bld) 3.0 % Normal 0.9-7.0 [facility] Comment on above: Performed By: #### H FPFCBC #### [facility] [address] [place] [address] Dr. Arcenio Blily Erythrocyte distribution width (RBC) [Ratio] 12.1 % Normal 11.0-15.0 [facility] Comment on above: Performed By: #### H FPFCBC #### [facility] [address] [place] [address] Dr. Arcenio Billy Hematocrit (Bld) [Volume fraction] 43.1 % Normal 36.0-48.0 [facility] Comment on above: Performed By: #### H FPFCBC #### [facility] [address] [place] [address] Dr. Arcenio Billy Hemoglobin (Bld) [Mass/Vol] 14.1 g/dL Normal 12.0-16.0 [facility] Comment on above: Performed By: #### H FPFCBC #### [facility] [address] [place] [address] Dr. Arcenio Billy IG # 0.01 10e3/ul Normal 0.00-0.03 [facility] Comment on above: Performed By: #### H FPFCBC #### [facility] [address] [place] [address] Dr. Arcenio Billy IG % 0.2 % Normal 0.0-0.5 [facility] Comment on above: Performed By: #### H FPFCBC #### [facility] [address] [place] [address] Dr. Arcenio Billy LYMPH # 1.9 103/ul Normal 1.2-3.8 [facility] Comment on above: Performed By: #### H FPFCBC #### [facility] [address] [place] [address] Dr. Arcenio Billy Lymphocytes/100 WBC (Bld) 35.7 % Normal 20.5-60.0 [facility] Comment on above: Performed By: #### H FPFCBC #### [facility] [address] [place] [address] Dr. Arcenio Billy MCH (RBC) [Entitic mass] 28.8 pg Normal 26.7-34.0 [facility] Comment on above: Performed By: #### H FPFCBC #### [facility] [address] [place] [address] Dr. Arcenio Billy MCHC (RBC) [Mass/Vol] 32.7 g/dL Normal 29.9-35.2 [facility] Comment on above: Performed By: #### H FPFCBC #### [facility] [address] [place] [address] Dr. Arcenio Billy MCV (RBC) [Entitic vol] 88.1 fL Normal 81.0-99.0 [facility] Comment on above: Performed By: #### H FPFCBC #### [facility] [address] [place] [address] Dr. Arcenio Billy MONO # 0.5 103/ul Normal 0.3-0.8 [facility] Comment on above: Performed By: #### H FPFCBC #### [facility] [address] [place] [address] Dr. Arcenio Billy Monocytes/100 WBC (Bld) 9.9 % Normal 1.7-12.0 [facility] Comment on above: Performed By: #### H FPFCBC #### [facility] [address] [place] [address] Dr. Arcenio Billy NEUT # 2.7 103/ul Normal 1.4-6.5 [facility] Comment on above: Performed By: #### H FPFCBC #### [facility] [address] [address] [address] Arcenio Billy Neutrophils/100 WBC (Bld) 50.8 % Normal 43.0-75.0 [facility] Comment on above: Performed By: #### H FPFCBC #### [facility] [address] [place] [address] Dr. Arcenio Billy Platelet mean volume (Bld) [Entitic vol] 8.9 fL Critically low 9.5-13.5 [facility] Comment on above: Performed By: #### H FPFCBC #### [facility] [address] [place] [address] Dr. Arcenio Billy PLT 271 103/ul Normal 150-450 [facility] Comment on above: Performed By: #### H FPFCBC #### [facility] [address] [place] [address] Dr. Arcenio Billy RBC 4.89 106/ul Normal 4.20-5.40 [facility] Comment on above: Performed By: #### H FPFCBC #### [facility] [address] [place] [address] Dr. Arcenio Billy WBC 5.3 103/ul Normal 4.0-11.0 [facility] Comment on above: Performed By: #### H FPFCBC #### [facility] [address] [address] [address] Arcenio Billy [facility] PROFILEon 022 Albumin [Mass/Vol] 3.7 g/dL Normal 3.4-5.0 [facility] Comment on above: Performed By: #### H FPF #### [facility] [address] [place] [address] Dr. Arcenio Billy Albumin/Globulin [Mass ratio] 1.1 {ratio} Normal [facility] Comment on above: Performed By: #### H FPF #### [facility] [address] [place] [address] Dr. Arcenio Billy ALP [Catalytic activity/Vol] 60 U/L Normal 46-116 [facility] Comment on above: Performed By: #### H FPF #### [facility] [address] [place] [address] Dr. Arcenio Billy ALT [Catalytic activity/Vol] 47 U/L Normal 14-59 [facility] Comment on above: Performed By: #### H FPF #### [facility] [address] [place] [address] Dr. Arcenio Billy AST [Catalytic activity/Vol] 25 U/L Normal 15-37 [facility] Comment on above: Performed By: #### H FPF #### [facility] [address] [place] [address] Dr. Arcenio Billy Bilirubin [Mass/Vol] 0.5 mg/dL Normal 0.2-1.0 [facility] Comment on above: Performed By: #### H FPF #### [facility] [address] [place] [address] Dr. Arcenio Billy Calcium [Mass/Vol] 8.8 mg/dL Normal 8.5-10.1 [facility] Comment on above: Performed By: #### H FPF #### [facility] [address] [place] [address] Dr. Arcenio Billy Chloride [Moles/Vol] 103 mmol/L Normal 98-107 [facility] Comment on above: Performed By: #### H FPF #### [facility] [address] [place] [address] Dr. Arcenio Billy CHOL-HDL RATIO NORM SEE BELOW Normal [facility] Comment on above: Result Comment: 3.3 - 4.4 LOW RISK 4.4 - 7.1 AVERAGE RISK 7.1 - 11.0 MODERATE RISK >11.0 HIGH RISK Performed By: #### H FPF #### [facility] [address] [address] [address] Arcenio Billy Cholesterol [Mass/Vol] 352 mg/dL Critically high <=200 [facility] Comment on above: Performed By: #### H FPF #### [facility] [address] [address] [address] Arcenio Billy Cholesterol in HDL [Mass/Vol] 34 mg/dL Critically low 40-60 [facility] Comment on above: Performed By: #### H FPF #### [facility] [address] [address] [address] Arcenio Billy Cholesterol in LDL [Mass/Vol] 274.2 mg/dL Normal [facility] Comment on above: Performed By: #### H FPF #### [facility] [address] [address] [address] Arcenio Billy Cholesterol.total/C holesterol in HDL [Mass ratio] 10.4 {ratio} Normal [facility] Comment on above: Performed By: #### H FPF #### [facility] [address] [address] [address] Arcenio Billy CO2 [Moles/Vol] 25.7 mmol/L Normal 21.0-32.0 [facility] Comment on above: Performed By: #### H FPF #### [facility] [address] [address] [address] Arcenio Billy Creatinine [Mass/Vol] 0.91 mg/dL Normal 0.55-1.02 [facility] Comment on above: Performed By: #### H FPF #### [facility] [address] [address] [address] Arcenio Blily Globulin (S) [Mass/Vol] 3.4 g/dL Normal [facility] Comment on above: Performed By: #### H FPF #### [facility] [address] [address] [address] Arcenio Billy Glucose [Mass/Vol] 91 mg/dL Normal 74-106 [facility] Comment on above: Performed By: #### H FPF #### [facility] [address] [address] [address] Arcenio Billy HDL NORMAL > or = 60 mg/dl - LO W CARDIOVASCULAR RISK <40 mg/dl - HIGH CARDIOVASCULAR RISK Normal [facility] Comment on above: Performed By: #### H FPF #### [facility] [address] [address] [address] Arcenio Billy LDL CALC NORMAL SEE BELOW Normal [facility] Comment on above: Result Comment: <100 mg/dl OPTIMAL 100 - 129 mg/dl NEAR OR ABOVE OPTIMAL 130 - 159 mg/dl BORDERLINE HIGH 160 - 189 mg/dl HIGH >190 mg/dl VERY HIGH Performed By: #### H FPF #### [facility] [address] [address] [address] Arcenio Billy Potassium [Moles/Vol] 4.1 mmol/L Normal 3.5-5.1 [facility] Comment on above: Performed By: #### H FPF #### [facility] [address] [address] [address] Arcenio Billy Protein [Mass/Vol] 7.1 g/dL Normal 6.4-8.2 [facility] Comment on above: Performed By: #### H FPF #### [facility] [address] [address] [address] Arcenio Billy Sodium [Moles/Vol] 139 mmol/L Normal 136-145 [facility] Comment on above: Performed By: #### H FPF #### [facility] [address] [address] [address] Arcenio Billy Triglyceride [Mass/Vol] 219 mg/dL Critically high <=150 [facility] Comment on above: Performed By: #### H FPF #### [facility] [address] [address] [address] Arcenio Billy TSH 1.717 uIU/mL Normal 0.358-3.740 [facility] Comment on above: Performed By: #### H FPF #### [facility] [address] [place] [address] Dr. Arcenio Billy Urea nitrogen [Mass/Vol] 11.0 mg/dL Normal 7.0-18.0 [facility] Comment on above: Performed By: #### H FPF #### [facility] [address] [place] [address] Dr. Arcenio Billy Urea nitrogen/Creatinine [Mass ratio] 12.1 mg/mg Normal [facility] Comment on above: Performed By: #### H FPF #### [facility] [address] [place] [address] Dr. Arcenio Billy VLDL CALC 43.8 mg/dL Normal [facility] Comment on above: Performed By: #### H FPF #### [facility] [address] [place] [address] Dr. Arcenio Billy PAP ACOG PANEL 2: 30 to 65on 09-19-2021 . . Normal [facility] Comment on above: Result Comment: Perf ormed at: WB Performed By: #### [id number] #### [facility] [address] [place] [address] Dr. Arcenio Billy Age Gdln ACOG Testing 30-65 Normal [facility] Comment on above: Performed By: #### [id number] #### [facility] [address] [place] [address] Dr. Arcenio Billy DIAGNOSIS: Comment Normal [facility] Comment on above: Result Comment: NEGA TIVE FOR INTRAEPITHELIAL LESION OR MALIGNANCY. FUNGAL ORGANISMS MORPHOLOGICALLY CONSISTENT WITH MOSES SPECIES ARE PRESENT. Performed at: WB Performed By: #### [id number] #### [facility] [address] [place] [address] Dr. Arcenio Billy HPV Aptima Negative Normal Negative [facility] Comment on above: Result Comment: This nucleic acid amplification test detects fourteen high-risk HPV types (16,18,31,33,35,39,45,51,52,56,58,59,66,68) without differentiation. Performed at: =G Performed By: #### [id number] #### [facility] [address] [place] [address] Dr. Arcenio Billy Methodology: Comment Normal [facility] Comment on above: Result Comment: This liquid based ThinPrep(R) pap test was screened with the use of an image guided system. Performed at: WB Performed By: #### [id number] #### [facility] [address] [place] [address] Dr. Arcenio Billy Note: Comment Normal [facility] Comment on above: Result Comment: The Pap smear is a screening test designed to aid in the detection of premalignant and malignant conditions of the uterine cervix. It is not a diagnostic procedure and should not be used as the sole means of detecting cervical cancer. Both false-positive and false-negative reports do occur. . Performed at: WB Performed By: #### [id number] #### [facility] [address] [place] [address] Dr. Arcenio Billy Performed by: Comment Normal [facility] Comment on above: Result Comment: Bronson Cordero, Tire Setter (ASCP) Performed at: WB Performed By: #### [id number] #### [facility] [address] [place] [address] Dr. Arcenio Billy Specimen adequacy: Comment Normal [facility] Comment on above: Result Comment: Sati sfactory for evaluation. No endocervical component is identified. Performed at: WB Performed By: #### [id number] #### [facility] [address] [place] [address] Dr. Arcenio Billy MG MAMM SCREEN 3D JULIO CÉSAR CADon 09-08-2021 MG MAMM SCREEN 3D JULIO CÉSAR CAD Patient: BEN CRUZ Exam Date: 09/08/2021 : 1975 Gender:F Ordering : DR CHELITA VILLANUEVA . Admission #: [id number] Family : Order #: [id number] CLICK HERE TO VIEW EXAM RADIOLOGY REPORT [...] pancreatic cancer at age 71. LOCATION: [facility] BREAST COMPOSITION: Scattered areas fibroglandular density. [...] MD on 09/08/2021 at 11:41 Normal [facility] MRI BRAIN WO/W IVCONon 08-23 [facility] MRI LIVER WO/W IVCONon 06-16 [facility] MRI BRAIN WO/W IVCONon 06-01 [facility] Vital Signs Date Time Vital Sign Value Performing Clinician Facility 03-16-2023 13:45-0500 Body height 162.56 cm Lissett Vega Other [facility] Other 03-16-2023 13:45-0500 Body mass index (BMI) [Ratio] 34.5 kg/m2 Lissett Vega Other [facility] Other 03-16-2023 13:45-0500 Body temperature 99.1 [degF] Lissett Vega Other [facility] Other 03-16-2023 13:45-0500 Body weight 91.17 kg Lissett Vega Other [facility] Other 03-16-2023 13:45-0500 Diastolic blood pressure 88 mm[Hg] Lissett Vega Other [facility] Other 03-16-2023 13:45-0500 SaO2% (BldA) [Mass fraction] 98 % Lissett Vega Other [facility] Other 03-16-2023 13:45-0500 Systolic blood pressure 128 mm[Hg] Lissett Vega Other [facility] Other 02-17-2023 14:47-0500 Blood Pressure Location Debbie [employer] [place] 02-17-2023 14:47-0500 Diastolic blood pressure 84 mm[Hg] Debbie NILL [facility] [place] 02-17-2023 14:47-0500 Heart rate 76 /min Debbie NILL [facility] [place] 02-17-2023 14:47-0500 Respiratory rate 16 /min Debbie NILL [facility] [place] 02-17-2023 14:47-0500 Systolic blood pressure 128 mm[Hg] Debbie NILL [facility] 09-21-2022 11:30-0400 Body height 162.56 cm Lissett Vega Other [facility] Other 09-21-2022 11:30-0400 Body mass index (BMI) [Ratio] 36.56 kg/m2 Lissett Vega Other [facility] Other 09-21-2022 11:30-0400 Body weight 96.62 kg Lissett Vega Other [facility] Other 09-21-2022 11:30-0400 Diastolic blood pressure 84 mm[Hg] Lissett Vega Other [facility] Other 09-21-2022 11:30-0400 Systolic blood pressure 137 mm[Hg] Lissett Vega Other [facility] Other 06-21-2022 10:32-0400 Body height 165 cm Debbie Echeverria MD Work Phone: [facility] 06-21-2022 10:32-0400 Body temperature 96.8 [degF] Debbie Echeverria MD Work Phone: [facility] 06-21-2022 10:32-0400 Body weight 98.79 kg Debbie Echeverria MD Work Phone: [facility] 06-21-2022 10:32-0400 Diastolic blood pressure 82 mm[Hg] Debbie Echeverria MD Work Phone: [facility] 06-21-2022 10:32-0400 Heart rate 74 /min Debbie Echeverria MD Work Phone: [facility] 06-21-2022 10:32-0400 Respiratory rate 18 /min Debbie Echeverria MD Work Phone: [facility] 06-21-2022 10:32-0400 SaO2% (BldA) [Mass fraction] 96 % Debbie Echeverria MD Work Phone: [facility] 06-21-2022 10:32-0400 Systolic blood pressure 139 mm[Hg] Debbie Echeverria MD Work Phone: [facility] 12-21-2021 13:24-0400 Body temperature 98.6 [degF] Debbie Echeverria MD Work Phone: [facility] 12-21-2021 13:24-0400 Body weight 102.15 kg Debbie Echeverria MD Work Phone: [facility] 12-21-2021 13:24-0400 Diastolic blood pressure 82 mm[Hg] Debbie Echeverria MD Work Phone: [facility] 12-21-2021 13:24-0400 Heart rate 79 /min Debbie Echeverria MD Work Phone: [facility] 12-21-2021 13:24-0400 Respiratory rate 20 /min Debbie Echeverria MD Work Phone: [facility] 12-21-2021 13:24-0400 SaO2% (BldA) [Mass fraction] 100 % Debbie Echeverria MD Work Phone: [facility] 12-21-2021 13:24-0400 Systolic blood pressure 145 mm[Hg] Debbie Echeverria MD Work Phone: [facility] Encounters Encounter Date Encounter Type Care Provider Facility Start: 03-23-2023 End: 03-23-2023 ambulatory Lissett Vega Other [facility] Other Start: 03-23-2023 Telephone encounter Lissett Vega [facility] Start: 03-16-2023 End: 03-16-2023 ambulatory Lissett Vega Other [facility] Other Start: 03-16-2023 Office outpatient vi sit 15 minutes Lissett Vega [facility] Start: 02-17-2023 End: 02-18-2023 ambulatory Debbie DE LOS SANTOS Facility: [facility] Start: 02-17-2023 End: 02-17-2023 Patient encounter procedure Debbie DE LOS SANTOS General Surgery [facility] Start: 02-07-2023 Telephone encounter Johann Henriquez RN [facility] Start: 02-06-2023 Telephone encounter Johann Henriquez RN [facility] Comment on above: Gamma Knife Follow-u p Start: 01-27-2023 End: 01-28-2023 Orders Only Gurpreet Beckwith DO, PhD Work Phone: Neurosurgery Comment on above: Benign neoplasm of m eninges (HCC) (Primary Dx) Benign neoplasm of m eninges (HCC) [D32.9] Start: 01-27-2023 Patient encounter procedure Burak Daley MD Work Phone: [facility] Start: 01-27-2023 Radiation Oncology Note Susi Daley MD Work Phone: [facility] Comment on above: Procedure Treatment Planning Start: 01-24-2023 ambulatory Debbie DE LOS SANTOS Facility:[facility] Start: 01-23-2023 End: 01-23-2023 ambulatory Lissett Vega Other [facility] Other Start: 01-23-2023 Telephone encounter Lissett Gary [facility] Start: 12-22-2022 End: 12-22-2022 ambulatory DEBBIE ECHEVERRIA Facility:[facility] Start: 11-15-2022 Telephone encounter Betzy liao RN Work Phone: [facility] Comment on above: Medical Educator - O ther (Schedule gamma knife 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/) Start: 11-04-2022 End: 11-04-2022 ambulatory Gurpreet Beckwith DO, PhD Work Phone: [facility] Comment on above: Benign neoplasm of m eninges (HCC) (Primary Dx) Start: 11-04-2022 End: 11-04-2022 Telemedicine consultation with patient Gurpreet Beckwith DO, PhD Work Phone: [facility] Start: 10-31-2022 End: 10-31-2022 ambulatory Lissett Vega Other [facility] Other Start: 10-31-2022 Telephone encounter Lissett Vega [facility] Start: 10-19-2022 End: 10-19-2022 ambulatory DEBBIE ECHEVERRIA Facility:[facility] Start: 10-19-2022 End: 10-19-2022 ambulatory Luis Licona MD Work Phone: Radiation Oncology Comment on above: Meningioma (HCC) (Pr imary Dx) Start: 10-19-2022 End: 10-19-2022 Telemedicine consultation with patient Luis Licona MD Work Phone: [facility] Start: 10-18-2022 End: 10-18-2022 ambulatory DEBBIE ECHEVERRIA Facility:[facility] Start: 10-18-2022 End: 10-18-2022 ambulatory Trista Bonilla APRN.CNP Work Phone: Radiation Oncology Comment on above: Meningioma (HCC) (Pr imary Dx) Start: 10-18-2022 End: 10-18-2022 Telemedicine consultation with patient Trista Bonilla APRN.BOLT CUTTER Work Phone: [facility] Start: 10-17-2022 End: 10-17-2022 ambulatory TRISTA BONILLA Facility:[facility] Start: 10-17-2022 End: 10-17-2022 Subsequent hospital visit by physician M[facility] (Lg Bore/1.5t) Radiology MRI Comment on above: Benign neoplasm of m eninges (HCC) [D32.9] Start: 09-23-2022 End: 09-23-2022 ambulatory Lissett Vega Other [facility] Other Start: 09-23-2022 Telephone encounter Lissett Vega [facility] Start: 09-21-2022 End: 09-21-2022 ambulatory Lissett Vega Other [facility] Other Start: 09-21-2022 Encounter for other preprocedural examination Lissett Vega [facility] Start: 09-21-2022 Office outpatient vi sit 25 minutes Lissett Vega [facility] Start: 09-12-2022 End: 09-12-2022 ambulatory Taz Rossi Facility:[facility] Start: 08-31-2022 Telephone encounter Luis osborn MD Work Phone: Radiation Oncology Comment on above: Medical Educator - O ther Start: 06-21-2022 End: 06-21-2022 ambulatory DEBBIE ECHEVERRIA Facility:[facility] Start: 06-21-2022 End: 06-21-2022 ambulatory Debbie Echeverria MD Work Phone: Hematology/Oncology Comment on above: Malignant melanoma o f torso excluding breast (HCC) (Primary Dx) Start: 06-21-2022 End: 06-21-2022 Patient encounter procedure Debbie Echeverria MD Work Phone: [facility] Start: 03-16-2022 End: 03-16-[address] LISSETT VEGA Facility: Start: 02-28-2022 End: 02-28-2022 ambulatory DEBBIE ECHEVERRIA Facility:[facility] Start: 02-28-2022 End: 02-28-2022 ambulatory Trista Bonilla APRN.BOLT CUTTER Work Phone: Radiation Oncology Comment on above: Benign neoplasm of m eninges (HCC) (Primary Dx) Start: 02-28-2022 End: 02-28-2022 Telemedicine consultation with patient Trista Bonilla APRN.BOLT CUTTER Work Phone: [facility] Start: 02-23-2022 End: 02-23-2022 ambulatory LUIS LICONA Facility:[facility] Start: 02-23-2022 End: 02-23-2022 Subsequent hospital visit by physician Mri [facility] (Lg Bore/1.5t) Radiology MRI Comment on above: Benign neoplasm of m eninges (HCC) [D32.9] Start: 12-21-2021 End: 12-21-2021 ambulatory Debbie Echeverria MD Work Phone: Hematology/Oncology Comment on above: Malignant melanoma o f torso excluding breast (HCC) (Primary Dx) Start: 12-21-2021 End: 12-21-2021 Patient encounter procedure Debbie Echeverria MD Work Phone: [facility] Start: 12-15-2021 End: 12-15-[address] LISSETT VEGA Facility:[facility] Start: 12-11-2021 Gynecological examin ation normal Lissett Vega Other [employer] Other Start: 12-01-2021 Telephone encounter Debbie Echeverria MD Work Phone: Hematology/Oncology Comment on above: Medical Educator - O ther Start: 11-18-2021 End: 11-19-[address] LISSETT VEGA Facility:[facility] Start: 09-14-2021 End: 09-14-[address] CHELITA VILLANUEVA . Facility:[facility] Start: 09-08-2021 End: 09-09-[address] CHELITA VILLANUEVA . Facility: Start: 08-23-2021 End: 08-23-2021 ambulatory Luis Licona MD Work Phone: Radiation Oncology Comment on above: Benign neoplasm of m eninges (HCC) Start: 08-23-2021 End: 08-23-2021 Telemedicine consultation with patient Luis Licona MD Work Phone: [facility] Start: 08-23-2021 End: 08-23-2021 Subsequent hospital visit by physician Mri [facility] (Lg Bore/1.5t) Radiology MRI Comment on above: Benign neoplasm of m eninges (HCC) [D32.9] Start: 06-16-2021 End: 06-16-2021 Subsequent hospital visit by physician Mri [facility] (Lg Bore/1.5t) Radiology MRI Comment on above: Malignant 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] Start: 06-01-2021 End: 06-01-2021 Subsequent hospital visit by physician Mri [facility] (Lg Bore/1.5t) Radiology MRI Comment on above: [...] MD Work Phone: Arthroscopy of shoulder Kalen aearianna NILL section Debbie NIL L Excision of ganglion of wrist Debbie NILL Excision of melanoma Debbie NILL Comment on above: left shoulder Fasciotomy of foot Debbie Lucy VIVIAN Hysterectomy Lissett Gary Other Laminectomy Debbie NILL Screening for malign ant neoplasm of breast Lissett Gary Other Stereotactic destruc tion of lesion using gamma radiation Debbie NILL Vaginal hysterectomy Debbie NILL Plan of Treatment Date Care Activity Detail Author Start: 12-21-2022 Adult depression screening assessment DEPRESSION SCREENING [facility] Start: 12-02-2022 Influenza vaccination [facility] Start: 08-29-2022 End: 03-31-2023 Mri brain brain stem w/o w/contrast material MRI BRAIN WO/W IVCON Radiology Routine Benign neoplasm of meninges (HCC) Expected: 08/29/2022, Expires: 03/31/2023 [facility] Work Phone: Comment on above: Expected: 08/29/2022 , Expires: 03/31/2023 Start: 08-22-2022 Adult depression screening assessment DEPRESSION SCREENING [facility] Start: 04-03-2022 DEPRESSION ASSESSMENT DEPRESSION ASS ESSMENT [facility] Start: 01-24-2022 DIABETES SCREEN DIABETES SCREEN [facility] Start: 01-24-2022 Diabetes Screening Diabetes Screenin g [facility] Start: 12-02-2021 Influenza vaccination [facility] Start: 04-03-2021 DEPRESSION ASSESSMENT DEPRESSION ASS ESSMENT [facility] Start: 07-12-2020 COLOGUARD (FIT-DNA) COLOGUARD (FIT-D NA) [facility] Start: 07-12-2020 Colonoscopy COLONOSCOPY [facility] Start: 07-12-2020 COLORECTAL CANCER SCREENING COLORECTAL CANCER SCREENING [facility] Start: 07-12-[address] COLONOGRAPHY [facility] Start: 07-12-2020 FECAL OCCULT BLOOD FECAL OCCULT BLOO D [facility] Start: 07-12-2020 Lipid 1996 panel - S emeterio or Plasma Lipid Screening [facility] Start: 07-12-2020 LIPID SCREEN LIPID SCREEN [facility] Start: 07-12-2020 SIGMOIDOSCOPY SIGMOIDOSCOPY [facility] Start: 2015 Mammography [facility] Start: 07-12-2005 HPV TESTING HPV TESTING [facility] Start: 07-12-1996 PAP TESTING PAP TESTING [facility] Start: 07-12-1994 Urine microalbumin profile [facility] Start: 07-12-1993 HEPATITIS C SCREENING HEPATITIS C SC REENING [facility] Start: 07-12-1993 HIV SCREENING HIV SCREENING [facility] Start: 07-12-1981 PNEUMOCOCCAL (1 - PCV) PNEUMOCOCCAL (1 - PCV) [facility] Start: 07-12-1980 COVID-19 VACCINE (#1) COVID-19 VACCI NE (#1) [facility] Start: 01-12-1976 COVID-19 VACCINE (#1) COVID-19 VACCI NE (#1) [facility] Start: 1975 HEPATITIS B (1 of 3 - 3-dose series) HEPATITIS B (1 of 3 - 3-dose series) [facility] Start: 1975 Hepatitis B Vaccine (1 of 3 - 3-dose series) Hepatitis B Vaccine (1 of 3 - 3-dose series) [facility] End: 09-22-2022 Mri brain brain stem w/o w/contrast material MRI BRAIN WO/W IVCON Radiology Routine Benign neoplasm of meninges (HCC) 1 Occurrences starting 08/23/2021 until 09/22/2022 [facility] Work Phone: Comment on above: 1 Occurrences starti ng 08/23/2021 until 09/22/2022 [facility] ANESTHESIA O NLY [facility] Immunizations Immunization Date Immunization Notes Care Provider Fa cility 06-05-2020 SARS-CoV-2 (COVID-19 ) mRNA BNT-162b2 vax Debbie NILL [facility] 05-15-2020 SARS-CoV-2 (COVID-19 ) mRNA BNT-162b2 vax Debbie NILL [facility] NEGATED: Highlighted row has not occurred!02-17-2023 influenza virus vaccine, unspecified formulation Debbie NILL [facility] [place] Payers Date Payer Category Payer Self-pay 2018 Unknown MMO [employer] [id number] 2018-Present [phone] [address] [place] [address] PPO [id number] 2018 Unknown [id number] 1975 Unknown [id number] 1975 Unknown [id number] 1975 Unknown [id number] 1975 Unknown [id number] 1975 Unknown [id number] 1959 Self-pay [id number] 1959 Unknown [id number] Unknown [id number] Unknown [id number] Social History Date Type Detail Facility Start: 11-19-2018 End: 02-17-2023 Tobacco smoking status NHIS Ex-smoker [facility] End: 08-02-2018 History of tobacco use Current smoker [facility] End: 08-02-2018 History of tobacco use Cigarette Smoker [facility] Start: 11-19-2018 Tobacco use and exposure Smokeless t obacco non-user [facility] Start: 06-21-2021 End: 12-22-2022 Alcohol intake Current drinker of alcohol (finding) [facility] Start: 11-19-2018 History SDOH Alcohol Comment occasionally [facility] Start: 1975 Sex Assigned At Not on file [facility] Start: 12-11-2021 End: 12-21-2021 Exposure to SARS-CoV-2 (event) Not sure [facility] Start: 06-21-2022 End: 10-18-2022 Sex Assigned At [facility] Start: 06-21-2022 End: 10-18-2022 History of Social function [facility] Adult Depression Screening Assessment 0 [facility] Start: 01-20-2020 Gender identity Identifies as female gender (finding) [facility] Start: 05-02-2021 End: 06-11-2021 Exposure to SARS-CoV-2 (event) Unable to assess [facility] Functional Status Date Assessment Result Facility 02-17-2023 [...] recommend CT without contrast to r/o stone. Mar, Microscopic hematuria (ICD-10 - R31.29) [employer] Other 11-17-2023 NoteChief Complaint consultation for screening colonoscopy [facility] Staff 47 year old female presents on [...] SARS-CoV-2 (COVID-19) mRNA BNT-162b2 vax 05/15/2020 [facility] HospitalComment on above:Result Comment: Electronically Signed By: AMGALI MCKINLEY, Debbie He\Date and Time Signed: 02/17/23 15:11 [id number] Miscellaneous Notes* Telephone Encounter - Johann Henriquez [...] symptoms or concerns arise. documented in this encounterKindred Healthcare11-07-2023 Miscellaneous Notes* Telephone Encounter - Johann Henriquez RN - 02/07/2023 1:13 PM EST 2nd attempt to reach out, patient unavailable. Will send Curazy message with contact information to call if she is experiencing any symptoms or has any concerns since gamma knife treatment. * Telephone Encounter - Johann Henriquez RN - 02/06/2023 1:17 PM EST Calling Ben for post-GKRS follow-up. Unable to reach at this time. Left voicemail. documented in this encounterKindred Healthcare11-01-2023 NoteHNO ID: [id number] Author: Burak Daley MD Service: Radiation Oncology Author Type: Physician Type: Progress Notes Filed: 02/03/2023 12:33 AM Note Text: BEN CRUZ [id number] 02/01/2023 [facility] Brain Tumor Center / Department [...] :57 AM Electronically Signed cc: Dr. Gurpreet [facility]withNorthern [facility]23 NoteHNO ID: [id number] Author: Gurpreet Beckwith DO, PhD Service: ? Author Type: Physician Type: Progress Notes Filed: 01/27/2023 1:49 PM Note Text: [facility] [address] [place] [address] [place] OPERATIVE REPORT NAME: Ben Cruz [facility] NO.: [id number] MASK SIMULATION DATE: 2023-01-27 RADIATION TREATMENT START [...] were loaded in the planning computer and AirWatchksell gamma plan was used to perform fractionated [...] of Fractions: 1 After the usual quality compliance coordinator procedures were performed, fractionated 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 was delivered with use of the Gamma Knife. The Gamma Knife checklist and time outs were performed during this procedure. Gurpreet Beckwith DO, PhDMercy Health St. [facility]10-27-2023 NoteHNO ID: [id number] Author: Burak Daley MD Service: Radiation Oncology Author Type: Physician Type: Progress Notes Filed: 02/01/2023 12:33 AM Note Text: BEN CRUZ [id number] 01/27/2023 [facility] Cindi Diez [facility] Neuro[facility]Oncology [facility] [...] patient setup, I conferred with the medical service technician to approve the final setup. I was [...] planned. Electronically Signed Burak Daley M.D. :10 [facility]10-27-2023 NoteHNO ID: [id number] Author: Burak Daley MD Service: Radiation Oncology Author Type: Physician Type: Progress Notes Filed: 02/02/2023 12:32 AM Note Text: SYMONESHANE GREENAntonieta [place] [id number] 01/27/2023 [facility] Xiomara Crumhardt [facility] Department of [...] treatment planning. Electronically Signed Burak Daley M.D. :18 [facility]10-27-2023 NoteHNO ID: [id number] Author: Burak Daley MD Service: Radiation Oncology Author Type: Physician Type: Progress Notes Filed: 02/01/2023 12:33 AM Note Text: BEN CRUZ [id number] 01/27/2023 [facility] Department of Radiation Oncology [place] [...] DVH. Electronically Signed Burak Daley M.D. / [facility] 31:29 [facility]10-27-2023 History of Present illness Narrative* Gurpreet Beckwith DO, PhD - 01/27/2023 1:49 PM EDT [facility] [address] [place] [address] [place] OPERATIVE REPORT NAME: Ben Cruz [facility] NO.: [id number] MASK SIMULATION DATE: 2023-01-27 RADIATION TREATMENT START [...] of Fractions: 1 After the usual quality compliance coordinator procedures were performed, fractionated 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 was delivered with use of the Gamma Knife. The Gamma Knife checklist and time outs were performed during this procedure. Gurpreet Beckwith DO, PhD documented in this encounterKindred Healthcare10-27-2023 NoteHNO ID: [id number] Author: Gurpreet Beckwith DO, PhD Service: ? Author Type: Physician Type: Progress Notes Filed: 01/27/2023 11:22 AM Note Text: [facility] [address] [place] [address] [place] OPERATIVE REPORT NAME: Ben Cruz [facility] NO.: [id number] MASK SIMULATION DATE: 2023-01-27 RADIATION TREATMENT START [...] of Fractions: 1 After the usual quality compliance coordinator procedures were performed, fractionated 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 was delivered with use of the Gamma Knife. The Gamma Knife checklist and time outs were performed during this procedure. Gurpreet Beckwith DO, PhDMercy Health St. [facility]10-27-2023 NoteHNO ID: [id number] Author: Zee Padilla Tech Service: Radiology Author Type: Non Profit Financial Controller Type: Progress Notes Filed: 01/27/2023 8:06 AM [...] BY: Tyshawn Lawler January 27, 2023 8:06 [facility]10-27-2023 NoteHNO ID: [id number] Author: Gurpreet Beckwith DO, PhD Service: ? [...] the a brain MRI was ordered MRI 3 1 22 a subcentimeter L frontal meningioma noted on [...] - 123 U/L 60 (more content not included)...[facility]10-27-2023 History of Present illness Narrative* Gurpreet Beckwith DO, PhD - 01/27/2023 11:21 AM EDT [facility] [address] [place] [address] [place] OPERATIVE REPORT NAME: Ben Cruz [facility] NO.: [id number] MASK SIMULATION DATE: 2023-01-27 RADIATION TREATMENT START [...] of Fractions: 1 After the usual quality compliance coordinator procedures were performed, fractionated 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 was delivered with use of the Gamma Knife. The Gamma Knife checklist and time outs were performed during this procedure. Gurpreet Beckwith DO, PhD documented in this encounterKindred Healthcare10-27-2023 History of Present illness Narrative* Zee Padilla [...] 27, 2023 8:06 AM documented in this encounterKindred Healthcare10-27-2023 NoteHNO ID: [id number] Author: Anton Terrell RN Service: Nursing Author [...] Cruz DATE: January 27, 2023 TIME: 7:46 [facility]10-27-2023 NoteHNO ID: [id number] Author: Mariela Burk RT(R) Service: Radiology Author [...] BY: RT Nestor(R) January 27, 2023 7:59 [facility]10-27-2023 History of Present illness Narrative* [...] 123 U/L 60 Final Pathology: Specimen #: [id number]* Submitting Physician: DEBBIE ECHEVERRIA MD FINAL DIAGNOSIS [...] FRONTAL LOBE, UNCHANGED GOING BACK TO 06/01/2021 Account Manager Education: TORI Transcribe Date/Time: Jan 27 2023 8:08A [...] Licona- muna Echeverria- muna documented in this encounterKindred Healthcare10-27-2023 NoteHNO ID: [id number] Author: Gayle Acevedo RN Service: ? Author Type: Registered Nurse Type: Progress Notes Filed: 01/27/2023 10:29 AM Note Text: January 27, 2023 0630 Ben arrived ambulatory Discharge Transportation Verification: Yes, via/with Ben arrived for imaging, mask SIM, ICON mask-based GKRS, and single-session mask-based treatment. 0645 1 mg PO Ativan given for anxiety prior to mask SIM per order of Dr. Aria Beckwith, , Gayle Acevedo RN 0735 Mask SIM completed. Ben Cruz returned to department for treatment # 1 of 1. Is patient receiving immunotherapy infusions: Not Applicable. Patient's Age: 47 Menstruation Status: Hysterectomy 2019 [facility] Results: N/A test not performed QC: Yes, [...] verbalized understanding; patient discharged via/with Gayle Acevedo RNMercy Health [facility]10-27-2023 Instructions* Patient Instructions* Gayle Acevedo RN - 01/27/2023 7:45 AM EDT [facility] Discharge Instructions As with [...] a physician or hospital other than the [facility] with any problem [...] may your physician, Dr. Virgil Beckwith at [phone] Monday through Monday 8:00 am to 5:00 pm, or call the Gamma Knife nurse Monday through Monday 8:00 am to 4:00 pm at [phone]. In the evening or on weekends, call [phone] or toll-free [phone] and ask the seal extrusion operator to page your neurosurgeon's resident carbon printer. documented in this encounterKindred Healthcare10-27-2023 History of Present illness Narrative* Anton Terrell [...] 27, 2023 7:59 AM documented in this encounterKindred Healthcare10-27-2023 History of Present illness Narrative* Gayle Acevedo [...] Patient's Age: 47 Menstruation Status: Hysterectomy 2019 [facility] Results: N/A test not performed QC: Yes, testing is valid (or protocol followed for invalid testing). Reference range: Normal Value = Negative for hCG. POC performed by: Gayle Acevedo RN 0934 4 mg Decadron PO given prior to GKRS per order of Dr. Virgil Beckwith 0946 GKRS start time. 1016 GKRS end time. 1025 Discharge instructions given to patient; instructions reviewed by this RN; patient/family verbalized understanding; patient discharged via/with Gayle Acevedo RN documented in this encounterKindred Healthcare10-27-2023 History of Present illness Narrative* Burak Daley MD - 01/27/2023 12:00 AM EDT BEN CRUZ [id number] 01/27/2023 [facility] Cindi Diez [facility] Neuro[facility]Oncology [facility] [...] to patientsetup, I conferred with the medical service technician to approve the final setup. I was [...] Daley M.D. :10 PM documented in this encounterKindred Healthcare10-27-2023 History of Present illness Narrative* Burak Daley MD - 01/27/2023 12:00 AM EDT BEN CRUZ [id number] 01/27/2023 [facility] Department of Radiation Oncology [place] [...] DVH. Electronically Signed Burak Daley M.D. / [facility] 31:29 PM documented in this encounterKindred Healthcare09-21-2023 NoteHNO ID: [id number] Author: Debbie Echeverria MD Service: ? Author Type: Physician Type: Progress Notes Filed: 12/23/2022 9:46 AM Note Text: December 22, 2022 DXN: Resected T4aN0 desmoplastic melanoma. The lesion was about 4.5mm located on her back with 2 negative SLNs (left axilla). There was no reported neurtropism and only one mitotic figure. Margins were negative. Declined an adjuvant trial in [place]. Baseline imaging today is negative CC: Melanoma [...] beckwith components of the Resident. Debbie Echeverria, [facility]08-15-2023 Miscellaneous Notes* Telephone Encounter - Betzy Heard RN - 11/15/2022 1:57 PM EDT Calling Ben to follow up on Curazy message about scheduling gamma knife for 01/27/2023 No answer, left message stating that I'll go ahead and place the GK orders. Reminded to disregard ANY appointment times she sees in Curazy, any automated text reminders or automated phone calls for 01/27/23 She will receive a call from the GK nurse or radiation therapist the day before with her arrival time. If she has any questions, I left office phone # for call back or she can send a Curazy message. I will send out a GK folder with additional information related to Mask Based Gamma Knife Radiosurgery Betzy Heard RN, BSN Medical Educator [facility] documented in this encounterKindred Healthcare08-04-2023 NoteHNO ID: [id number] Author: Gurpreet Beckwith DO, PhD Service: ? Author Type: Physician Type: Progress Notes Filed: 11/04/2022 1:27 PM Note Text: Brain Tumor Neuro-Oncology Center New Patient Virtual Consultation Referred by Dr. Luis Licona We had a virtual visit conducted via Shopeando visit. I received consent from the patient to perform the visit using this platform. I have communicated my name and active licensure. The patient's identity and physical location were verified at the time of this visit. Either the patient or their legal membership sales representative has been informed of the [...] Pathology: Specimen #: [id number] (more content not included)...[facility] 11-04-2022 History of Present illness Narrative* Gurpreet Beckwith DO, PhD - 11/04/2022 1:00 PM EDT Images from the original note were not included. [facility] Neuro[facility]Oncology [facility] New Patient Virtual Consultation Referred by Dr. Luis Licona We had a virtual visit conducted via epic virtual visit. I received consent from the patient to perform the visit using this platform. I have communicated my name and active licensure. The patient's identity and physical location wereverified at the time of this visit. Either the patient or their legal membership sales representative has been informed of the [...] 123 U/L 60 Final Pathology: Specimen #: [id number]* Submitting Physician: DEBBIE ECHEVERRIA MD FINAL DIAGNOSIS Skin, left upper midline back, shave biopsy - Desmoplastic melanoma, see synoptic report. SDB/rw 11/09/2018 Imaging: MRI Report MRI BRAIN WO/W IVCON Exam End: 10/17/2022 11:20 AM (Final result) Narrative: * * *Final Report* * * DATE OF EXAM: Oct 17 2022 11:20AM [facility] 0295 - MRI BRAIN WO/W IVCON / [...] with air-fluid level suggestive of acute/active sinusitis. Account Manager Education: [facility] Transcribe Date/Time: Oct 17 2022 11:35A [...] which included preparing to see the patient, [id number] patient care, completing clinical documentation, obtaining and/or reviewing separately obtained history, performing a medically appropriate examination, counseling and educating the pat ient/family/caregiver, ordering medications, tests, or procedures, communicating with other HCPs (not separately reported), independently interpreting results (not separately reported), communicatingresults to the patient/family/caregiver, and care coordination (not separately reported). Gurpreet Beckwith DO, PhD cc: Ben Licona- muna Echeverria- muna documented in this encounterKindred Healthcare07-31-2023 Evaluation note* Encounter Date Diagnosis Assessment Notes Treatment Notes Treatment Clinical Notes Oct, Screen for colon cancer (ICD-10 - Z12.11) [employer] Other 07-19-2023 NoteHNO ID: [id number] Author: Luis Licona MD Service: ? Author [...] resident's medical decisio (more content not included)... [facility]07-19-2023 History of Present illness Narrative* Luis Licona MD - 10/19/2022 4:30 PM EDT Radiation Oncology - Follow Up Note [facility] DISTANCE HEALTH VISIT This visit is a Virtual MyChart video visit encounter which required patient- provider interaction for the medical decision making as documented below. Persons Present: patient and patient's spouse/significant other Ben Curz has consented to this distance health encounter. [...] Luis Licona MD cc: Debbie Echeverria [address] [facility] [address] [facility] [address] documented in this encounterKindred Healthcare07-18-2023 NoteHNO ID: [id number] Author: Trista Bonilla APRN.SHERITA Service: ? Author Type: Nurse Practitioner Type: Progress Notes Filed: 10/19/2022 12:11 AM Note Text: Elements of this note, including HPI, ROS, Physical Exam, Assessment and Plan were copied and pasted from 02/28/22 encounter with me. Updates have been made where noted and reflect current exam and medical decision making from October 18, 2022. rTista Bonilla APRN.SHERITA. [facility] DISTANCE HEALTH VISIT This visit is a Virtual MyChart video visit encounter which required patient-provider interaction for the medical decision making as documented below. Persons Present: patient Ben Cruz has consented to this distance health encounter. Total Time Spent: more than 20 minutes qrjc-mw-qbaq with the patient and over half the [...] DATE OF EXAM: Oct 17 2022 11:20AM [facility] 0295 - MRI BRAIN WO/W IVCON / [...] with air-fluid level suggestive of acute/active sinusitis. Account Manager Education: [facility]Whit Transcribe Date/Time: Oct 17 2022 11:35A Dictated [...] Moves all extremities purp (more content not included)...[facility]07-18-2023 History of Present illness Narrative* Trista Bonilla APRN.CNP - 10/18/2022 10:30 AM EDT Elements of this note, including HPI, ROS, Physical Exam, Assessment and Plan were copied and pasted from 02/28/22 encounter with me. Updates have been made where noted and reflect current exam and medical decision making from October 18, 2022. Trista Bonilla APRN.SHERITA. [facility] DISTANCE HEALTH VISIT This visit is a Virtual MyChart video visit encounter which required patient- provider interaction for the medical decision making as documented below. Persons Present: patient Ben Cruz has consented to this distance health encounter. Total Time Spent: more than 20 minutes tvrg-qy-ygdq with the patient and over half the [...] OF EXAM: Oct 17 2022 11:20AM [facility] - MRI BRAIN WO/W IVCON / PROCEDURE [...] with air-fluid level suggestive of acute/active sinusitis. Account Manager Education: [employer] Transcribe Date/Time: Oct 17 2022 11:35A [...] Cc: Dr. Luis Echeverria [facility]23 NoteHNO ID: [id number] Author: Nidia Morelos RN Service: Nursing Author [...] Cruz DATE: October 17, 2022 TIME: 10:40 [facility]07-17-2023 NoteHNO ID: [id number] Author: MANISH Hubbard Service: Radiology Author Type: Non Profit Financial Controller Type: Progress Notes Filed: 10/17/2022 10:54 AM [...] BY: MANISH Hubbard October 17, 2022 10:53 [facility]07-17-2023 History of Present illness Narrative* [...] 2022 TIME: 10:40 AM * Barbara Gaxiola data collector - 10/17/2022 10:40 AM EDT Radiology Service [...] 17, 2022 10:53 AM [facility]06-[facility]-2023 Evaluation note* Encounter Date Diagnosis Assessment Notes [...] the berberine and get back to patient. [employer] Other 05-31-2023 Miscellaneous Notes* Telephone Encounter - [...] 09/05. Prescription should be sent to the [facility]. [facility] [phone] [place] [address] documented in this encounterKindred Healthcare03-21-2023 NoteHNO ID: [id number] Author: Debbie Echeverria MD Service: ? Author Type: Physician Type: Progress Notes Filed: 06/21/2022 11:09 AM Note Text: June 21, 2022 DXN: Resected T4aN0 desmoplastic melanoma. The lesion was about 4.5mm located on her back with 2 negative SLNs (left axilla). There was no reported neurtropism and only one mitotic figure. Margins were negative. Declined an adjuvant trial in [place]. Baseline imaging today is negative CC: Melanoma [...] with more than 50% of the total kgkv-eh-tszm time of the visit in counseling / coordination of care. Debbie Echeverria [facility]03-21-2023 History of Present illness Narrative* Debbie Echeverria MD - 06/21/2022 11:08 AM EDT June 21, 2022 DXN: Resected T4aN0 desmoplastic melanoma. The lesion was about 4.5mm located on her back with 2 negative SLNs (left axilla). There was no reported neurtropism and only one mitotic figure. Margins were negative. Declined an adjuvant trial in [place]. Baseline imaging today is negative CC: Melanoma [...] with more than 50% of the total xejo-ye-jqji time of the visit in counseling / coordination of care. Debbie Echeverria MD documented in this encounterKind[facility]03-21-2023 Nurse Note* Vanessa Giang LPN - 06/21/2022 10:29 AM EDT Additional intake questions: Has the patient had fever, nausea, vomiting, diarrhea, constipation, fatigue for > 1 week? Yes, fatigue and Provider Notified Does the patient have a decreased appetite? No Does patient want to see a Bench Press Operator? No (yes to any of above refer patient to schedulers for dietitian appointment) ) Does patient have any new or increased numbness or tingling of extremities? No Is patient interested in fertility information? NA Does patient need any prescription refills? No Does patient have an advanced directive in place? No, Patient refused referral to Social Work or Resource Center documented in this encounter[facility]11-28-2022 NoteHNO ID: [id number] Author: Trista Bonilla APRN.BOLT CUTTER Service: ? Author Type: Nurse Practitioner Type: Progress Notes Filed: 03/01/2022 9:23 AM Note Text: [facility] DISTANCE HEALTH VISIT This visit is a Virtual MyChart video visit encounter which required patient-provider interaction for the medical decision making as documented below. Persons Present: patient Ben Cruz has consented to this distance health encounter. 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 She denies focal weakness, dizziness, gait instability, or seizures. Data Reviewed: MRI Report MRI BRAIN WO/W IVCON Exam End: 02/23/2022 11:31 AM (Final result) Narrative: * * *Final Report* * * DATE OF EXAM: Feb 23 2022 11:31AM [facility] 0295 - MRI BRAIN WO/W IVCON / [...] unremarkable MRI brain with and without contrast. Account Manager Education: PSCWhit Transcribe Date/Time: Feb 23 2022 11:50A Dictated [...] Coughing noted :No A (more content not included)...[facility]11-28-2022 History of Present illness Narrative* Trista Bonilla APRN.[facility] - 02/28/2022 10:30 AM EST [facility] DISTANCE HEALTH VISIT This visit is a Virtual MyChart video visit encounter which required patient- provider interaction for the medical decision making as documented below. Persons Present: patient Ben Cruz has consented to this distance health encounter. 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 She denies focal weakness, dizziness, gait instability, or seizures. Data Reviewed: MRI Report MRI BRAIN WO/W IVCON Exam End: 02/23/2022 11:31 AM (Final result) Narrative: * * *Final Report* * * DATE OF EXAM: Feb 23 2022 11:31AM [facility] 0295 - MRI BRAIN WO/W IVCON / [...] unremarkable MRI brain with and without contrast. Account Manager Education: [employer] Transcribe Date/Time: Feb 23 2022 11:50A [...] She will continue to get MRI at [facility] and present in VV follow up. Trista Bonilla APRN.CNP Cc: Dr. Luis Echeverria documented in this encounterKindred Healthcare11-23-2022 NoteHNO ID: [id number] Author: MANISH Hubbard Service: Radiology Author Type: Non Profit Financial Controller Type: Progress Notes Filed: 02/23/2022 11:00 AM [...] Site disposition Discontinued SIGNED BY: MANISH Hubbard Tech February 23, 2022 10:57 [facility]11-23-2022 NoteHNO ID: [id number] Author: Nidia Morelos RN Service: Nursing Author [...] Cruz DATE: February 23, 2022 TIME: 10:33 [facility]11-23-2022 History of Present illness Narrative* [...] 23, 2022 TIME: 10:33 AM * Barbara Gaxiola, data collector - 02/23/2022 10:40 AM EST Radiology Service Progress Note PATIENT NAME: Ben Crzu DATE OF SERVICE: February 23, 2022 TIME: [...] BY: MANISH Hubbard February 23, 2022 10:57 AM documented in this encounterKindred Healthcare09-20-2022 History of Present illness Narrative* Debbie Echeverria MD - 12/21/2021 1:37 PM EDT December 21, 2021 DXN: Resected T4aN0 desmoplastic melanoma. The lesion was about 4.5mm located on her back with 2 negative SLNs (left axilla). There was no reported neurtropism and only one mitotic figure. Margins were negative. Declined an adjuvant trial in [place]. Baseline imaging today is negative CC: Melanoma [...] Plan were copied and pasted from my 3.. distance encounter. Updates have been made where noted and reflect current exam and medical decision making from December 21, 2021 I spent 25 minutes in the visit, with more than 50% of the total ozsp-rm-sjdc time of the visit in counseling / coordination of care. Debbie Echeverria MD documented in this encounterKindred Healthcare09-20-2022 Nurse Note* Tiny Mckoy LPN - 12/21/2021 1:20 PM EDT Additional intake questions: Has the patient had fever, nausea, vomiting, diarrhea, constipation, fatigue for > 1 week? Yes, fatigue Does the patient have a decreased appetite? No Does patient want to see a Bench Press Operator? No (yes to any of above refer patient to schedulers for dietitian appointment) ) Does patient have any new or increased numbness or tingling of extremities? No Is patient interested in fertility information? No Does patient need any prescription refills? No Does patient have an advanced directive in place? No, Patient refused referral to Social Work or Resource Center documented in this encounter[facility]09-02-2022 Miscellaneous Notes* Telephone Encounter - Jaylene Jacobson RN - 12/03/2021 12:49 PM EDT Patient needs a follow up visit (no labs or scans) around 12/25/21. She accepted a visit on 12/21 at 1:30 pm. Jaylene Jacobson RN * Telephone Encounter - Mary Lindsay - 12/01/2021 4:45 PM EDT Ben Cruz is calling Debbie Echeverria MD today regarding Medical Educator - Other Patient called scheduling to schedule 6 mo follow up but was unable to get thru, so calling office for Dr. Echeverria to get it scheduled. Can she be called once appointment is made? Patient has been identified by name and birthdate. Requesting response back: [phone] (home) [phone] (cell) Mary Lindsay December 01, 2021 documented in this encounter[facility]05-23-2022 History of Present illness Narrative* Luis Licona [...] an updated MRI in 6 months in [place] followed by a virtual visit for further meningioma surveillance, with additional surveillance plan to be developed thereafter. Zhanna Le MD Radiation Oncology Resident [id number] STAFF ADDENDUM I saw and evaluated the [...] brain. Luis Licona MD cc: Debbie Echeverria [id number] [facility] [id number] documented in this encounterKindred [facility]05-23-2022 History of Present illness Narrative* Nidia Morelos [...] Intact, Site disposition Discontinued SIGNED BY: RT Genoveva(R) August 23, 2021 12:14 PM documented in this encounter[facility]03-16-2022 History of Present illness Narrative* Nazanin Moncada [...] 2021 TIME: 10:22 AM * Barbara Gaxiola, data collector - 06/16/2021 10:00 AM EDT Radiology Service [...] 16, 2021 10:35 AM documented in this encounterKind[facility]03-01-2022 History of Present illness Narrative* Barbara Gaxiola MRI Tech - 06/01/2021 11:20 AM EST Radiology Service Progress Note PATIENT NAME: Ben Curz DATE OF SERVICE: June 01, 2021 TIME: [...] 2021 TIME: 11:13 AM [facility] No data available for this section General Surgery [place] Evaluation note* Diagnosis 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 documented in this encounter [facility] note* Diagnosis 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 documented in this encounter [facility] note* Diagnosis Benign neoplasm of meninges (HCC)- Primary Benign neoplasm of cerebral meninges documented in this encounter [facility] note* Diagnosis 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) documented in this encounter [facility] noteNo [facility] Other Evaluation note* Diagnosis Meningioma (HCC)- Primary Benign neoplasm of cerebral meninges documented in this encounter [facility] note* Diagnosis Meningioma (HCC)- Primary Benign neoplasm of cerebral meninges documented in this encounter [facility] note* Diagnosis Benign neoplasm of meninges (HCC)- Primary Benign neoplasm of cerebral meninges documented in this encounter [facility] note* Diagnosis Benign neoplasm of meninges (HCC)- Primary Benign neoplasm of cerebral meninges documented in this encounter [facility] note* Diagnosis Benign neoplasm of meninges (HCC)- Primary Benign neoplasm of cerebral meninges documented in this encounter [facility] note* Diagnosis Benign neoplasm of meninges (HCC)- Primary Benign neoplasm of cerebral meninges documented in this encounter [facility] note* Diagnosis 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 documented in this encounter [facility] note* Diagnosis 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 documented in this encounter [facility] note* Diagnosis 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 documented in this encounter [facility] note* Diagnosis 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) Liver lesion Other specified disorders of liver documented in this encounter [facility] note* Diagnosis 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 documented in this encounter [facility] general Narrative - Reported* Type Description Date Medical History melanoma Surgical History laminectomy Surgical History c-sectionx 2 Surgical History hysterectomy Surgical History lump removed right wrist Surgical History melanoma removal [facility] Other History general Narrative - ReportedNort [employer] Other [employer] general Narrative - Reported* Type Description Date Medical History melanoma Surgical History laminectomy Surgical History c-sectionx 2 Surgical History hysterectomy Surgical History lump removed right wrist Surgical History melanoma removal Surgical History Colonoscopy 03/2023 [facility] Other Hospital Discharge instructions No data available for this section General Surgery [place] Progress note No data available for this section General Surgery [place] Reason for Referral Specialty Diagnoses / Procedures Referred By Selene lloyd Referred To Contact MR IMAGING Diagnoses Benign neoplasm of meninges (HCC) Procedures MRI BRAIN WO/W IVCON MRI BRAIN BRAIN STEM W/O W/[place] [address] [place] [address] Mr Imaging Referral ID Status Reason Start Date Expiration Date Visits Requested Visits Authorized [id number] Pending Review Auto-Generat ed Referral 08/23/2021 09/22/2022 1 1 Specialty Diagnoses / Procedures Referred By Selene lloyd Referred To Contact MR IMAGING Diagnoses Benign neoplasm of meninges (HCC) Procedures MRI BRAIN WO/W IVCON MRI BRAIN BRAIN STEM W/O W/CONTRAST MATERIAL Trista Bonilla APRN.CNP [address] [place] [address] Mr Imaging Referral ID Status Reason Start Date Expiration Date Visits Requested Visits Authorized [id number] Pending Review Auto-Generat ed Referral 08/29/2022 03/31/2023 1 1 Reason *FU 11/15 screenin g colonoscopy Diagnosis 1 Screen for colon can cer (Z12.11) Referral Organization [facility] Referring Provider First Name Lissett Referring Provider Last Name Vega Referring Provider Specialty Family [facility] cine Referred Organization [facility] Referred Provider LuisTucker batista Referred Address [address] [place], [place],[address] Referred Provider Specialty General Surg katelyn Referral Priority Routine General Notes Yara Louise 10:47:05 AM >received today, attachments made, notes locked, referral faxed Clinical Notes F: [id number] Specialty Diagnoses / Procedures Referred By Selene lloyd Referred To Contact MR IMAGING Diagnoses Benign neoplasm of meninges (HCC) Procedures MRI BRAIN LOCALIZATION W IVCON UNLISTED MAGNETIC RESONANCE PROCED Gurpreet Beckwith DO, PhD [address] [facility] [address] [place] [id number] Mr Imaging [facility]95 Referral ID Status Reason Start Date Expiration Date V isits Requested Visits Authorized [id number] Closed Auto-Generate d Referral 12/06/2022 1 1 Specialty Diagnoses / Procedures Referred By Sadnraac t Referred To Contact MR IMAGING Diagnoses Benign neoplasm of meninges (HCC) Procedures MRI BRAIN WO/W IVCON MRI BRAIN BRAIN STEM W/O W/[place] [address] [place] [address] Mr Imaging [place] [address] Referral ID Status Reason Start Date Expiration Date V isits Requested Visits Authorized [id number] Closed Auto-Generate d Referral 06/21/2021 09/18/2021 1 1 Specialty Diagnoses / Procedures Referred By Contac t Referred To Contact MR IMAGING Diagnoses 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) Liver lesion Procedures MRI LIVER WO/W IVCON MRI ABDOMEN W/O & W/[place] [address] [place] [address] Mr Imaging [facility]95 Referral ID Status Reason Start Date Expiration Date V isits Requested Visits Authorized [id number] Closed Auto-Generate d Referral 05/20/2021 07/11/2021 1 1 Specialty Diagnoses / Procedures Referred By Selene lloyd Referred To Contact MR IMAGING Diagnoses Benign neoplasm of meninges (HCC) Procedures MRI BRAIN WO/W IVCON MRI BRAIN BRAIN STEM W/O W/CONTRAST MATERIAL Trista Bonilla APRN.BOLT CUTTER [address] [place] [address] [place] [address] Referral ID Status Reason Start Date Expiration Date V isits Requested Visits Authorized [id number] Closed Auto-Generate d Referral 08/29/2022 03/31/2023 1 1 Referral ID Status Reason Start Date Expiration Date V isits Requested Visits Authorized [id number] Closed Auto-Generate d Referral 08/23/2021 03/20/2022 1 [...] or prosecute any alcohol or drug abuse patient.[facility] HealthcareIn the event this information is protected by the Federal Confidentiality of Alcohol and Drug Abuse Patient Records regulations: The Federal rules restrict any use of the information to criminally investigate or prosecute any alcohol or drug abuse patient.[facility] HealthcareIn the event this information is protected by the Federal Confidentiality of Alcohol and Drug Abuse Patient Records regulations: The Federal rules restrict any use of the information to criminally investigate or prosecute any alcohol or drug abuse patient.[facility] HealthcareIn the event this information is protected by the Federal Confidentiality of Alcohol and Drug Abuse Patient Records regulations: The Federal rules restrict any use of the information to criminally investigate or prosecute any alcohol or drug abuse patient.[facility] HealthcareIn the event this information is protected by the Federal Confidentiality of Alcohol and Drug Abuse Patient Records regulations: The Federal rules restrict any use of the information to criminally investigate or prosecute any alcohol or drug abuse patient.[facility] HealthcareIn the event this information is protected by the Federal Confidentiality of Alcohol and Drug Abuse Patient Records regulations: The Federal rules restrict any use of the information to criminally investigate or prosecute any alcohol or drug abuse patient.[facility] HealthcareIn the event this information is protected by the Federal Confidentiality of Alcohol and Drug Abuse Patient Records regulations: The Federal rules restrict any use of the information to criminally investigate or prosecute any alcohol or drug abuse patient.[facility] HealthcareIn the event this information is protected by the Federal Confidentiality of Alcohol and Drug Abuse Patient Records regulations: The Federal rules restrict any use of the information to criminally investigate or prosecute any alcohol or drug abuse patient.[facility] HealthcareIn the event this information is protected by the Federal Confidentiality of Alcohol and Drug Abuse Patient Records regulations: The Federal rules restrict any use of the information to criminally investigate or prosecute any alcohol or drug abuse patient.[facility] HealthcareIn the event this information is protected by the Federal Confidentiality of Alcohol and Drug Abuse Patient Records regulations: The Federal rules restrict any use of the information to criminally investigate or prosecute any alcohol or drug abuse patient.[facility] HealthcareIn the event this information is protected by the Federal Confidentiality of Alcohol and Drug Abuse Patient Records regulations: The Federal rules restrict any use of the information to criminally investigate or prosecute any alcohol or drug abuse patient.[facility] HealthcareIn the event this information is protected by the Federal Confidentiality of Alcohol and Drug Abuse Patient Records regulations: The Federal rules restrict any use of the information to criminally investigate or prosecute any alcohol or drug abuse patient.[facility] HealthcareIn the event this information is protected by the Federal Confidentiality of Alcohol and Drug Abuse Patient Records regulations: The Federal rules restrict any use of the information to criminally investigate or prosecute any alcohol or drug abuse patient.[facility] HealthcareIn the event this information is protected by the Federal Confidentiality of Alcohol and Drug Abuse Patient Records regulations: The Federal rules restrict any use of the information to criminally investigate or prosecute any alcohol or drug abuse patient.[facility] HealthcareIn the event this information is protected by the Federal Confidentiality of Alcohol and Drug Abuse Patient Records regulations: The Federal rules restrict any use of the information to criminally investigate or prosecute any alcohol or drug abuse patient.[facility] HealthcareIn the event this information is protected by the Federal Confidentiality of Alcohol and Drug Abuse Patient Records regulations: The Federal rules restrict any use of the information to criminally investigate or prosecute any alcohol or drug abuse patient.[facility] HealthcareIn the event this information is protected by the Federal Confidentiality of Alcohol and Drug Abuse Patient Records regulations: The Federal rules restrict any use of the information to criminally investigate or prosecute any alcohol or drug abuse patient.[facility] HealthcareIn the event this information is protected by the Federal Confidentiality of Alcohol and Drug Abuse Patient Records regulations: The Federal rules restrict any use of the information to criminally investigate or prosecute any alcohol or drug abuse patient.[facility] HealthcareIn the event this information is protected by the Federal Confidentiality of Alcohol and Drug Abuse Patient Records regulations: The Federal rules restrict any use of the information to criminally investigate or prosecute any alcohol or drug abuse patient.[facility] HealthcareIn the event this information is protected by the Federal Confidentiality of Alcohol and Drug Abuse Patient Records regulations: The Federal rules restrict any use of the information to criminally investigate or prosecute any alcohol or drug abuse patient.[facility] HealthcareIn the event this information is protected by the Federal Confidentiality of Alcohol and Drug Abuse Patient Records regulations: The Federal rules restrict any use of the information to criminally investigate or prosecute any alcohol or drug abuse patient.[facility] HealthcareIn the event this information is protected by the Federal Confidentiality of Alcohol and Drug Abuse Patient Records regulations: The Federal rules restrict any use of the information to criminally investigate or prosecute any alcohol or drug abuse patient.[facility] HealthcareIn the event this information is protected by the Federal Confidentiality of Alcohol and Drug Abuse Patient Records regulations: The Federal rules restrict any use of the information to criminally investigate or prosecute any alcohol or drug abuse patient.[facility] HealthcareIn the event this information is protected by the Federal Confidentiality of Alcohol and Drug Abuse Patient Records regulations: The Federal rules restrict any use of the information to criminally investigate or prosecute any alcohol or drug abuse patient.[facility]red HealthcareIn the event this information is protected by the Federal Confidentiality of Alcohol and Drug Abuse Patient Records regulations: The Federal rules restrict any use of the information to criminally investigate or prosecute any alcohol or drug abuse patient.[facility] HealthcareIn the event this information is protected by the Federal Confidentiality of Alcohol and Drug Abuse Patient Records regulations: The Federal rules restrict any use of the information to criminally investigate or prosecute any alcohol or drug abuse patient.[facility] Reason for Visit (unrecogniz ed section and content) CT abd/pelvis result Reason Comments Radiology MRI Specialty Diagnoses / Procedures Referred By Selene lloyd Referred To Contact ADMITTING Diagnoses Benign neoplasm of meninges (HCC) Procedures RADIATION DELIVERY STEREOTACTIC CRANIAL [place] STEREOTACTIC RADIOSURGERY 1 COMPLEX CRANIAL LES RADIATION [place] STEREOTACTIC RADIOSURGERY (SRS) [place] CRANIAL LESION(S) 1 SESSION MULTI-SOURCE [place] STEREOTACTIC RADIOSURGERY 1 COMPLEX CRANIAL LESION [facility] [address] [place] [address] Referral ID Status Reason Start Date Expiration Date Visits Re quested Visits Authorized [id number] [address] Specialty Diagnoses / Procedures Referred By Selene lloyd Referred To Contact ADMITTING Diagnoses Benign neoplasm of meninges (HCC) Procedures RADIATION DELIVERY STEREOTACTIC CRANIAL [place] STEREOTACTIC RADIOSURGERY 1 COMPLEX CRANIAL LES RADIATION [place] STEREOTACTIC RADIOSURGERY (SRS) TX CRANIAL LESION(S) 1 SESSION MULTI-SOURCE [place] STEREOTACTIC RADIOSURGERY 1 COMPLEX CRANIAL LESION [facility] [address] [address] Reason Comments Recheck Reason Comments Medical Educator - Other Reason Comments Established Patient Reason Comments Established Patient Reason Comments Recheck Reason Comments Consult GK consult for LF me ningioma Reason Comments Medical Educator - 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 Reason Comments Procedure GKRS Reason Comments Radiology MRI Specialty Diagnoses / Procedures Referred By Selene lloyd Referred To Contact MR IMAGING Diagnoses 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) New daily persistent headache Other headache syndrome Procedures MRI BRAIN WO/W IVCON MRI BRAIN BRAIN STEM W/O W/[place] [address] [place] [id number] [facility] [place] [id number] Referral ID Status Reason Start Date Expiration Date V isits Requested Visits Authorized [id number] Closed Auto-Generate d Referral 04/29/2021 06/13/2021 1 1 Specialty Diagnoses / Procedures Referred By Contac t Referred To Contact MR IMAGING Diagnoses Benign neoplasm of meninges (HCC) Procedures MRI BRAIN WO/W IVCON MRI BRAIN BRAIN STEM W/O W/CONTRAST MATERIAL Luis Licona MD [id number] [place], [place] [id number] [facility] [place] [address] Referral ID Status Reason Start Date Expiration Date V isits Requested Visits Authorized [id number] Closed Auto-Generate d Referral 06/21/2021 09/18/2021 1 1 Specialty Diagnoses / Procedures [facility] Referred To Contact MR IMAGING Diagnoses 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) Liver lesion Procedures MRI LIVER WO/W IVCON MRI ABDOMEN W/O & W/CONTRAST MATERIAL Debbie Echeverria MD [address] [place] [address] [facility] [place] [address] Referral ID Status Reason Start Date Expiration Date V isits Requested Visits Authorized [id number] Closed Auto-Generate d Referral 05/20/2021 07/11/2021 1 1 Specialty Diagnoses / Procedures [facility] Referred To Contact MR IMAGING Diagnoses Benign neoplasm of meninges (HCC) Procedures MRI BRAIN WO/W IVCON MRI BRAIN BRAIN STEM W/O W/CONTRAST MATERIAL Trista Bonilla APRN.[employer] [address] [id number] [facility] [place] [address] Referral ID Status Reason Start Date Expiration Date V isits Requested Visits Authorized [id number] Closed Auto-Generate d Referral 08/29/2022 03/31/2023 1 1 Referral ID Status Reason Start Date Expiration Date V isits Requested Visits Authorized [id number] Closed Auto-Generate d Referral 08/23/2021 03/20/2022 1 1 Reason Comments Gamma Knife Follow-up INFORMATION SOURCE (unrecogn ized section and content) DATE CREATED AUTHOR 06/10/2022 [facility] DATE CREATED AUTHOR AUTHOR'S ORGANIZ ATION 09/15/2022 [facility] DATE CREATED AUTHOR AUTHOR'S ORGANIZ ATION 02/04/2023 [facility] DATE CREATED AUTHOR AUTHOR'S ORGANIZ ATION 02/08/[address] [facility] DATE CREATED AUTHOR AUTHOR'S ORGANIZ ATION 03/11/2023 Ritesh Pickett [facility] Care Teams (unrecognized sec tion and content) Operations Dispatcher Relationship Specialty Start Date End Date Lissett Vega MD [address] [place] [phone] PCP - General Family Medicine 01/17/23 Operations Dispatcher Relationship Specialty Start Date End Date Lissett Vega MD [address] [place] [address] PCP - General Family Medicine 01/17/23 Operations Dispatcher Relationship Specialty Start Date End Date Lissett Vega MD [address] [place] [phone] PCP - General Family Medicine 01/17/23 Operations Dispatcher Relationship Specialty Start Date End Date Lissett Vega MD [address] [place] [address] PCP - General Family Medicine 01/17/23 Operations Dispatcher Relationship Specialty Start Date End Date Lissett Vega MD [address] [place] [address] PCP - General Family Medicine 01/17/23 Operations Dispatcher Relationship Specialty Start Date End Date Lissett Vega MD [address] [place] [address] PCP - General Family Medicine 01/17/23 [...] BE BASED ON THE PRIMARY CLINICAL RECORDS. [facility]. provides no warranty or guarantee of the accuracy or completeness of information in this document.
[2023-03-30 09:50] LABS: Basophils Percent Auto 0.4 % (0.2-2.0); Eosinophils Absolute Auto 0.2 10^3/uL (0.0-0.7); Hemoglobin 14.3 g/dL (12.0-16.0); Immature Granulocytes Abs Auto 0.03 10^3/uL (0.00-0.03); Immature Granulocytes Pct Auto 0.4 % (0.0-0.5); Lymphocytes Percent Auto 25.3 % (20.5-60.0); Mean Corpuscular HGB Conc 32.5 g/dL (29.9-35.2); Mean Corpuscular Volume 89.2 fL (81.0-99.0); Mean Platelet Volume 8.4 fL (9.5-13.5); Monocytes Absolute Auto 0.7 10^3/uL (0.3-0.8); Monocytes Percent Auto 9.1 % (1.7-12.0); Neutrophils Percent Auto 61.8 % (43.0-75.0); Platelet Count 258 10^3/uL (150-450); Red Blood Count 4.93 10^6/uL (4.20-5.40); Red Cell Distribution Width 12.2 % (11.0-15.0)
[2023-03-30] MEDS: LACTATED RINGER'S SOLUTION 1,000 ML 50 ML IV ×3 (10:08→15:38)
[2023-03-30 10:11] LABS: Glucometer 87 mg/dL (74-106)
[2023-03-30] MEDS: CEFAZOLIN SODIUM/DEXTROSE,ISO 2 GM/50 ML PIGGYBACK IV (12:54)
[2023-03-30 16:22] LABS: Glucometer 107 mg/dL (74-106)
[2023-03-30] MEDS: HYDROMORPHONE HCL 0.5 MG/0.5 ML SYRINGE IV ×3 (16:30→16:44)
--- NOTE | 2023-03-30 17:02 | P.ORON_ITS ---
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 lateral displacement calcaneal osteotomy 2. Lateral ankle stabilization with modified Brostrom-Peterson 3. Peroneal tendon repair 4. endoscopic plantar fasciotomy 5. tailor's bunionectomy 6. correction of 5th hammertoe with PIPJ arthroplasty 7. Stress examination under intraoperative fluoroscopy 8. Application of short leg splint with all procedures performed on the ____ ankle INDICATION FOR PROCEDURE: patient is a 47-year-old female who presents me for 2nd opinion regarding left foot and ankle pain and dysfunction. Patient previously underwent Claudia's bunionectomy with an outside foot surgeon roughly 6 months ago. She relates that her pain did not improve and she still felt as if there was a prominence on the plantar and lateral aspect of the 5th metatarsal head. In addition she treated with ankle bracing and physical therapy for ankle instability and history of multiple ankle sprains. She did have an MRI obtained which demonstrated concerns for trauma to the anterior talofibular ligament, peroneal tendon tear, plantar fasciitis. Given her failure to respond to surgical and nonsurgical care I discussed the potential risks and benefits of continued nonsurgical care and the patient wished to undergo repeat foot surgery and address all of her left foot issues. She is educated and potential risks and benefits and all questions were answered to her satisfaction INTRAOPERATIVE FINDINGS: stress examination under intraoperative fluoroscopy revealed positive anterior drawer therefore decision was made to perform lateral ankle stabilization. Longitudinal split tear within the peroneus brevis near the fibular groove with surrounding synovitis and low lying muscle belly. Peroneus longus was intact without tear. The plantar fascia was thickened and scarred consistent with chronic plantar fasciitis. Hindfoot varus was noted with supple range of motion of the subtalar joint. Prominence of the 5th metatarsal head laterally and plantarly as well as scarred capsular tissue most significant on the lateral aspect. 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 Correct side and site were identified and marked. Pre-op antibiotics were started. Patient was brought to OR suite and place on table in a supine position. General anesthesia was administered. Tourniquet applied. Operative extremity was prepped and draped in usual sterile fashion. Formal time-out was performed and the foot/ankle were exsanguinated and tourniquet inflated. Stab incision over the medial aspect of the in-step at the glabrous skin junction was used followed by blunt dissection and the medial band of the plantar fascia was identified. Trochar and cannula were then placed medial to lateral. A lateral stab incision was made to allow passage of the trochar and cannula. Camera was inserted into the lateral portal and a hook blade was placed into the medial portal. 50% of the plantar fascia was released and healthy muscle was noted. The site was flushed with saline and instrumentation was removed. Closure with nylon suture was then undertaken. Under intraoperative fluoroscopy the ankle was stressed in all planes and had a notable positive anterior drawer indicating laxity of the anterior talofibular ligament. C-arm was used to identify safe incision placement over the lateral calcaneus anterior to the Achilles and plantar fascial attachments. Sharp and blunt dissection to the lateral calcaneus was performed. Sural nerve was not visua lized. A saw was used to create an osteotomy in line with the incision. the blade was removed and the foot was dorsiflexed and the saw was used to reciprocally plane the lateral half of the calcaneus essentially performing a closing wedge osteotomy. Surgical site was irrigated with copious saline and a lamina costume mistress was used to distract the osteotomy stretching the soft tissues. A guidepin was placed into the lateral aspect of the calcaneal tuberosity which was then translated laterally, superiorly and rotating out of varus. A separate incision was made over the posterior calcaneus and 2 guide wires were placed across the osteotomy. C-arm confirmed deformity correction and safe placement of the wires. Two 5.0 mm headless compression screws were place over the wires. Guide wires were then removed. A shelf of overhanging bone at the osteotomy site was smoothed with a rongeur and rasp. Lateral ankle incision was made over the posterior aspect of the fibular malleolus and extend past the fibular tip. Dissection was then carried posteriorly. Peroneal retinaculum and tendon sheath were incised to expose the peroneal tendons. The peroneal tendons were dislocated from the fibular groove for close inspection. There was synovitis and low lying peroneal brevis muscle which was excised. Inspection of the tendons demonstrated longitudinal tear of the brevis which was excised sharply. The tendon was then repaired and tubularized with absorbable suture. The tendons were then relocated in the fibular groove which was of adequate depth. Range of motion of the ankle demonstrated no subluxation and smooth gliding of the peroneal tendons. Meticulous blunt dissection was used to expose the ATFL and associated capsular tissue. The ATFL was thickend and lax upon stress examination. The ATFL was incised and arthrotomy was performed. The periosteum off of the distal lateral fibula was elevated from the fibular tip. A rongeur was used on the distal anterior fibular malleolus to create a trough. Drill holes were created in the trough created on distal fibula. Two 3.3 mm suture anchors were inserted into the drill holes created according to manufacture's directions. All sutures in all were passed through the ATFL then passed through the extensor retinaculum. The foot was then held in maximum dorsiflexion and eversion and the sutures were tied. The sutures were then passed through the periosteum of the fibula to reapproximate all capsular and periosteal tissue. The sutures were then tied and cut. Anterior drawer was negative and ankle had good ROM. The surgical site was irrigated with copious amounts sterile saline. The tendon sheath was reapproximated and the superior peroneal retinaculum repaired with a pants over vest absorbable suture. Skin was closed in layers. Incision was placed over the dorsal lateral aspect of the 5th metatarsal phalangeal joint. Combination sharp and blunt dissection gained access to the 5th MPJ and capsulotomy was performed. A sagittal saw was then used to remove bony prominence from the lateral aspect. further dissection was then performed to expose the plantar aspect of the 5th metatarsal head which was smooth and planed with a sagittal saw. Bone was then contoured with a hand rasp and the surgical site was irrigated with copious saline. The lateral capsule had significant scar formation therefore was debrided of all nonviable tissue and scar relieving any prominence on the lateral or plantar aspect of the 5th metatarsal head. With attention to the 5t digit a semi-elliptical dorsal incision was created over the PIPJ. Sharp and blunt dissection down to the extensor tendon was performed. The tendon was incised transversely then reflected proximally. A sagittal saw was used to remove the proximal phalanx head. The site was flushed with sterile saline. The tendon was repaired with absorbable suture and the incisions were then closed in layers. The tourniquet was deflated with a prompt hyperemic response. A dry sterile dressing consisting of Xeroform on the incisions followed by 4 x 4 gauze, ABDs, and Kerlix were applied. Multiple layers of cast padding were then applied to ensure all bony prominences were well-padded. A plaster posterior splint was then applied which was held in place by Jone wraps. Capillary refill time to all digits was evaluated and had appropriate response. Patient tolerated the procedure and anesthesia well and was transferred to the recovery room with vital signs stable and brisk capillary refill to the toes. POSTOPERATIVE PLAN: Discharge home under family's care Post op instructions provided verbally and written prescription(s) were placed in chart NWB operative foot/ankle x3 wks then partial protected WB x3 wks Follow-up in 1 week Implants: Vilex 5.0 mm cannulated screws Medline 3.3 mm suture anchors Anesthesia: regional and General-LMA Surgeon: Andrea Morillo Patient Support Representative: Justin Shah Estimated blood loss (mL): 10 Condition: stable Disposition: PACU
--- NOTE | 2023-03-30 17:13 | PC.NURSE ---
Medicated with Dilaudid IV as ordered; medicated by anesthesia with Toradol IV
--- NOTE | 2023-03-30 17:20 | XR_ITS ---
The [address] [address] Patient Name: BEN TABOR MRN: [id number] date: 1975 Sex: F Assigned Patient Location: [facility] Current Patient Location: [facility] Accession/Order Number: [id number] Exam Date: 03/30/2023 17:12 Report Date: 04/01/2023 19:37 At the request of: SHEREE BOWMAN Procedure: XR foot LT min 3V EXAM: XR foot LT min 3V HISTORY: postop xr pacu COMPARISON: 02/22/2023 FINDINGS/IMPRESSION: 1. Normal alignment of the bones of the forefoot. No significant degeneration of the forefoot. 2. Calcaneal osteotomy fixation screws. 3. No ankle joint effusion. Electronically authenticated by: JASON LIRIANO Date: 04/01/2023 19:37
--- NOTE | 2023-03-30 17:20 | XR_ITS ---
The [address] [address] Patient Name: BEN TABOR MRN: [id number] date: 1975 Sex: F Assigned Patient Location: [facility] Current Patient Location: Accession/Order Number: [id number] Exam Date: 03/30/2023 17:12 Report Date: 04/01/2023 19:34 At the request of: SHEREE BOWMAN Procedure: XR ankle LT min 3V EXAM: XR ankle LT min 3V HISTORY: postop xr pacu COMPARISON: None. FINDINGS/IMPRESSION: 1. Ankle mortise is maintained. 2. Osteotomy screw fixation of the calcaneus. No apparent hardware complication. 3. No ankle joint effusion. 4. Overlying cast material obscures fine bony detail. Electronically authenticated by: JASON LIRIANO Date: 04/01/2023 19:34
--- NOTE | 2023-03-30 17:29 | PC.NURSE ---
Medicated with Dilaudid IV as ordered
--- NOTE | 2023-03-30 17:32 | PC.NURSE ---
Positioned on stomach for nerve block by anesthesia and popliteal block started by Dr. De La Garza
--- NOTE | 2023-03-30 17:36 | PC.NURSE ---
Popliteal block completed by anesthesia and procedure tolerated well; repositioned to back
--- NOTE | 2023-03-30 18:22 | PC.NURSE ---
States she's so tired and can't imagine getting up yet
[2023-03-30] MEDS: ONDANSETRON PF 4 MG/2 ML VIAL IV (18:52)
--- NOTE | 2023-03-30 18:56 | PC.NURSE ---
c/o nausea; no emesis; medicated with Zofran IV as ordered
--- NOTE | 2023-03-30 19:24 | PC.NURSE ---
States nausea better
--- NOTE | 2023-03-30 19:25 | PC.NURSE ---
Retching on the way to the car; minimal emesis
== END 2023-03-30 19:10 | disposition home or self-care (01) ==
LOC: SURGOUT 09:38
PROVIDERS: PCP Family Medicine; Visit Provider Podiatrist Foot & Ankle Surgery
PROC: (CPT 1464; principal; 2023-03-30 11:00)
DX: M21.622 Bunionette of left foot (principal); M76.72 Peroneal tendinitis, left leg; M20.42 Other hammer toe(s) (acquired), left foot; M72.2 Plantar fascial fibromatosis; M25.372 Other instability, left ankle; M21.172 Varus deformity, not elsewhere classified, left ankle; E78.00 Pure hypercholesterolemia, unspecified; Z85.820 Personal history of malignant melanoma of skin; Z90.710 Acquired absence of both cervix and uterus; M21.072 Valgus deformity, not elsewhere classified, left ankle; M21.862 Other specified acquired deformities of left lower leg; M21.6X2 Other acquired deformities of left foot; Z87.891 Personal history of nicotine dependence; K21.9 Gastro-esophageal reflux disease without esophagitis; Z86.16 Personal history of COVID-19
CPT/HCPCS: 27675; 27698; 28285; 28300; 28308; 29893; 36415; 64445; 73610; 73630; 76000; 82948; 85025; 88304; C1713; J1170; J2704

== ENCOUNTER 2023-04-02 10:01 | Emergency (ER) | payer OTHER, SELFPAY ==
[2023-04-02 10:06] VITALS: BP 165/87; PULSE 74; RESP 16; TEMP 36.7; O2SAT 98; BMI 34.1
--- NOTE | 2023-04-02 10:06 | ED.GENADUL1 ---
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, peroneal tendon tear, plantar fasciitis, and tailor's bunion and 5th hammertoe) almost 3 to 4 days ago No fever no chills no pain in the leg itself but she have some discomfort over the lateral malleolus of the left ankle Related Data Home Medications Medication Instructions Recorded Confirmed inclisiran 284 mg/1.5 mL 284 mg subcut .every 6 months 03/08/23 03/30/23 subcutaneous syringe (Leqvio) [id number]-FA-Ca carb-vit K 1 tab PO DAILY 03/22/23 03/30/23 Previous Rx's Medication Instructions Recorded alendronate 70 mg tablet (Fosamax) 70 mg PO QWEEK 12 weeks #12 tabs 03/30/23 aspirin 81 mg tablet,delayed 81 mg PO BID 30 days #60 tabs 03/30/23 release (Adult Low Dose Aspirin) cefadroxil 500 mg capsule 500 mg PO BID 7 days #14 caps 03/30/23 cholecalciferol (vitamin D3) 125 125 mcg PO DAILY 90 days #90 caps 03/30/23 mcg (5,000 unit) capsule docusate sodium 100 mg capsule 100 mg PO BID PRN constipation 7 03/30/23 (Colace) days #14 caps ondansetron 4 mg disintegrating 4 mg PO Q8H PRN nausea and 03/30/23 tablet vomiting 5 days #15 tabs oxycodone-acetaminophen 5 mg-325 1 tab PO Q6H PRN pain 7 days #28 03/30/23 mg tablet (Percocet) tabs tizanidine 2 mg tablet 2 mg PO TID PRN muscle spasticity 03/30/23 7 days #21 tabs Allergies Allergy/AdvReac Type Severity Reaction Status Date / Time No Known Drug Allergies Allergy Verified 03/30/23 10:01 Review of Systems ROS Status of ROS 10 or more systems reviewed and unremarkable except as noted in history and below [facility] Medical History (Updated 04/02/23 @ 10:45 by Marilee Carrion MD) Status post gamma knife treatment ?Z92.3 - Personal history of irradiation (ICD-10) Meningioma ?D32.9 - Benign neoplasm of meninges, unspecified (ICD-10) Back pain ?M54.9 - Dorsalgia, unspecified (ICD-10) DDD (degenerative disc disease) COVID-19 ?U07.1 - COVID-19 (ICD-10) Migraine ?G43.909 - Migraine, unspecified, not intractable, without status migrainosus (ICD-10) GERD (gastroesophageal reflux disease) ?K21.9 - Gastro-esophageal reflux disease without esophagitis (ICD-10) Hyperlipidemia ?E78.5 - Hyperlipidemia, unspecified (ICD-10) Surgical History (Updated 03/22/23 @ 09:24 by Jes Butler) History of esophagogastroduodenoscopy (EGD) ?Z98.890 - Other specified postprocedural states (ICD-10) History of colonoscopy ?Z98.890 - Other specified postprocedural states (ICD-10) History of hysterectomy ?Z90.710 - Acquired absence of both cervix and uterus (ICD-10) History of foot surgery ?Z98.890 - Other specified postprocedural states (ICD-10) H/O laminectomy ?Z98.890 - Other specified postprocedural states (ICD-10) H/O melanoma excision ?Z98.890 - Other specified postprocedural states (ICD-10) ?Z85.820 - Personal history of malignant melanoma of skin (ICD-10) History of surgical removal of ganglion cyst ?Z98.890 - Other specified postprocedural states (ICD-10) History of section ?Z98.891 - History of uterine scar from previous surgery (ICD-10) History of section ?Z98.891 - History of uterine scar from previous surgery (ICD-10) History of arthroscopy of shoulder ?Z98.890 - Other specified postprocedural states (ICD-10) Family History (Updated 02/28/23 @ 13:14 by Kelly Kirk NP) Other Family history of diabetes mellitus Family history of hypertension Family history of pancreatic cancer Social History (Updated 02/28/23 @ 13:03 by Kelly Kirk NP) Within the past year, how often did you have a drink containing alcohol: monthly or less Smoking status: Former smoker Non-prescribed substance use: denies use 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 General: Well-appearing and in no apparent distress. Skin: Warm, dry, no pallor noted. No rash. Head: Normocephalic, atraumatic. Neck: Supple, non-tender. Eye: Pupils are equal, round and EOMI. No scleral icterus. Ears, Nose, Mouth, and Throat: TM are clear, no nasal mucosal hypertrophy. Oral mucosa is moist, no posterior oropharynx erythema, uvula is mid-line Cardiovascular: Regular Rate and Rhythm without murmur, gallop or rub. Respiratory: No accessory muscle use or respiratory distress. Lungs are clear to auscultation, no wheezing, rales or rhonchi Chest Wall: no tenderness Back: No midline thoracic or lumbar vertebral tenderness. No CVA tenderness Musculoskeletal: Normal vascular cap refill for the left foot at the patient examination after removing the cast shows no acute pathology there was some dried blood on the gauze that she had on the lateral malleolus no signs of infection GI: Abdomen is soft, non-distended. Normal bowel sounds. No masses appreciated. No tenderness to palpation. No rebound, guarding, or rigidity noted. Neurological: A&O x4. No cranial nerve dysfunction observed. No truncal ataxia. Moves all extremities. Sensation intact. Psychiatric: Cooperative and interactive. Normal mood and affect. Constitutional Vital Signs, click to edit/add: Last Vital Signs Temp 98.1 F 04/02/23 10:06 Pulse 74 04/02/23 10:06 Resp 16 04/02/23 10:06 BP 165/87 H 04/02/23 10:06 Pulse Ox 98 04/02/23 10:06 Course Vital Signs Vital signs: Vital Signs Temperature 98.1 F 04/02/23 10:06 Pulse Rate 74 04/02/23 10:06 Respiratory Rate 16 04/02/23 10:06 Blood Pressure 165/87 H 04/02/23 10:06 Pulse Oximetry 98 04/02/23 10:06 Temperature 98.1 F 04/02/23 10:06 Pulse Rate 74 04/02/23 10:06 Respiratory Rate 16 12/31/23 10:06 Blood Pressure 165/87 H 04/02/23 10:06 Pulse Oximetry 98 04/02/23 10:06 Medical Decision Making [facility] Narrative Medical decision making narrative: After replacing the cast and the dressing the patient was feeling much better The patient to come back to the ER in case of any symptoms or concerns but she is right now just to monitor her symptoms and she will follow-up with podiatry as outpatient The patient is to follow up with primary care physician in next 2-3 days or to return to the emergency department should any of the signs or symptoms worsen or new symptoms develop. The patient agrees with the following Diagnosis and Treatment plan and the patient will be discharged home. Discharge Plan Discharge Chief Complaint: Extremity Injury, Lower Clinical Impression: Post-op pain Patient Disposition: Home, Self-Care Time of Disposition Decision: 10:45 Condition: Good Prescriptions / Home Meds: No Action Leqvio 284 mg/1.5 mL syringe 284 mg subcut .every 6 months up-vm-baau-FA-Ca carb-vit K [Women's Multivitamin] 1 tab PO DAILY alendronate [Fosamax] 70 mg tablet 70 mg PO QWEEK 84 Days Qty: 12 0RF aspirin [Adult Low Dose Aspirin] 81 mg tablet,delayed release (DR/EC) 81 mg PO BID 30 Days Qty: 60 0RF cefadroxil 500 mg capsule 500 mg PO BID 7 Days Qty: 14 0RF oxycodone-acetaminophen [Percocet] 5-325 mg tablet 1 tab PO Q6H PRN (Reason: pain) 7 Days Qty: 28 0RF docusate sodium [Colace] 100 mg capsule 100 mg PO BID PRN (Reason: constipation) 7 Days Qty: 14 0RF ondansetron 4 mg tablet,disintegrating 4 mg PO Q8H PRN (Reason: nausea and vomiting) 5 Days Qty: 15 0RF cholecalciferol (vitamin D3) 125 mcg (5,000 unit) capsule 125 mcg PO DAILY 90 Days Qty: 90 0RF tizanidine 2 mg tablet 2 mg PO TID PRN (Reason: muscle spasticity) 7 Days Qty: 21 0RF Instructions: Pain Management After Surgery (DC) Stand Alone Forms: Portal Instructions Referrals: Zofia Ocasio MD [Primary Care Provider] - 1 week
--- OUTSIDE RECORDS SUMMARY | 2023-04-02 10:09 | XMS_ITS | CCD ---
Author Name Unknown Address [address] [place] [address] Organization [facility] Care Team Providers Care Business Unit Leader Name Role Phone Unavailable Primary Care Provider Jacqueline VEGA, DR LISSETT Fung Admitting Unavailable VEGA, DR LISSETT Fung Attending Unavailable VEGA, DR LISSETT Fung Primary Care Unavailable [facility], DR MONCADA Consulting Unavailable VEGA, DR LISSETT [...] Unavailable Lissett Vega MD Primary Care Provider [phone] GURPREET BECKWITH Attending Unavailable GURPREET BECKWITH Referring [...] BECKWITH Attending Unavailable DEBBIE ECHEVERRIA Attending Unavailable BECKWITH, GURPREET Referring Unavailable VEGA, LISSETT E Primary Care Unavailable VEGA, LISSETT E Primary Care Unavailable BURAK PRAKASH Attending Unavailable VEGA, LISSETT E Primary Care Unavailable PENDVINCE, BURAK Attending Unavailable TRISTA BONILLA Referring Unavailable BECKWITH, GURPREET Admitting Unavailable BECKWITH, GURPREET Attending Unavailable BECKWITH, GURPREET Referring Unavailable VEGA, LISSETT E Primary Care Unavailable BECKWITH, GURPREET Admitting Unavailable BECKWITH, GURPREET Attending Unavailable BECKWITH, GURPREET Referring Unavailable VEGA, LISSETT E Primary Care Unavailable LISSETT VEGA Primary Care Physician Debbie DE LOS SANTOS Attending Unavailable Debbie DE LOS SANTOS Attending Unavailable Allergies Allergy Classification Reported Allergen(s) Allergy Type Date of Onset Reaction(s) Facility (4 sources) patient allergy list reviewed by nurse or physicia Propensity to adverse reactions Comment:Done [employer] Other (4 sources) Allergies Reconciled Propensity to adverse reactions Unknown [facility] Other (1 source) No Known Medication Allergies; Translations: [No Known Medication Allergies] Propensity to adverse reactions (disorder) [facility] Repository Medications Current Medications Medication Drug Class(es) [...] tablet (7 sources) Histamine-2 Receptor Antagonist Start: 3 take 1 tablet by mouth once daily [...] Range Facility Outside Colonoscopyon 2022 Outside Colonoscopy [id number]#1.0 0TIFF [facility] Reminderson 03-09-2023 Reminders - From: Veronica Jack LPN To: N - Clinical; Sent: 03/09/2023 13:42:54 EST Show up: 02/06/2033 07:00:00 EST Subject: colonoscopy recall Due Date/Time: 03/08/2033 07:00:00 EST Reminder/Recall Patient due for screening colonoscopy 03/08/2033. [facility] Consent for Procedure/Surger yon 02-21-2023 Consent for Procedure/Surgery [id number]. 00TIFF [facility] Facesheeton 02-20-2023 Facesheet [id number]. 00TIFF [facility] Ambulatory Visit Summaryon 1 04-19-2022 Ambulatory [...] you for choosing us for your care. [facility] BEN [facility] ([id number]) 1975 F Date Time Provider Department 02/07/23 JOHANN HENRIQUEZ [facility] During your visit today, we recorded the [...] Encounter Status:Closed by JOHANN HENRIQUEZ on 02/07/23 [facility] 02-06-2023 [facility] Telephone ([facility]) BEN CRUZ ([id number]) 1975 F Date Time Provider Department 02/06/23 JOHANN HENRIQUEZ [facility] During your visit today, we recorded the following information about you: Johann Henriquez RN 02/06/2023 1:20 PM Signed Calling Ben for post-GKRS follow-up. Unable to reach at this time. Left voicemail. Johann Henriquez RN 02/07/2023 1:19 PM Signed 2nd attempt to reach out, patient unavailable. Will send [employer] message with contact information to call if [...] Encounter Status:Closed by JOHANN HENRIQUEZ on 02/07/23 [facility] Enrike 01-27-2023 CNOP Operative Note (Enc) (NSCAMN) Encounter Status:Closed by GURPREET BECKWITH on 01/27/23 [facility] Operative Note (Enc) (NSCAMN) Encounter Status:Closed by GURPREET BECKWITH on 01/27/23 Normal [facility] CNOVon 01-27-2023 CNOV Office Visit (NSCAMN ) SYMONEPETERBEN Arianna ([id number]) 1975 F Date Time Provider Department 01/27/23 [...] 7.1 AL (more content not included)... Normal [facility] CNOV Office Visit (NOGKCA ) BEN CRUZ ([id number]) 1975 F Date Time Provider Department 01/27/23 8:30 AM [facility]ASK [facility]AC[facility] During your visit today, we recorded [...] Patient's Age: 47 Menstruation Status: [place] [facility] Results: N/A test not performed [...] Segura Kaitlin, RN 01/27/2023 8:35 AM Addendum [facility]ife [facility] Discharge Instructions As with [...] or hospital other than the [facility] with any problem related to [...] may your physician, Dr. Virgil Beckwith at [phone] Monday through Monday 8:00 am to 5:00 pm, or call the Gamma Knife nurse Monday through Monday 8:00 am to 4:00 pm at [phone]. In the evening or on weekends, call [phone] or toll-free [phone] and ask the still pump operator to page your neurosurgeon's resident client service and consulting manager. Referring Provider: GURPREET BECKWITH [[id number]] Allergies As [...] [D32.9] 01/27/2023 Other instructions from your clinician: [facility] Discharge Instructions As with any surgery there are risks and potential side effects. Th (more content not included)... Normal [facility] CT BRAIN WO IVCONon 01-28-[address] [...] were required COMPARISON: Concurrent brain MRI RESULT: Winter Intern (topogram) images: No additional findings. Post-operative change: [...] OF EXTRA-AXIAL ENHANCING TISSUE SEEN ON MRI Material Engineer: TORI Transcribe Date/Time: Jan 27 2023 8:21A Dictated by : ESTUARDO WHALEY MD This examination was interpreted and the report reviewed and electronically signed by: ESTUARDO WHALEY MD on Jan 27 2023 8:23AM EST [id number] Normal [facility] MRI BRAIN LOCAL W IVCONon MRI BRAIN [...] FRONTAL LOBE, UNCHANGED GOING BACK TO 06/01/2021 Material Engineer: TORI Transcribe Date/Time: Jan 27 2023 8:08A Dictated by : ESTUARDO WHALEY MD This examination was interpreted and the report reviewed and electronically signed by: ESTUARDO WHALEY MD on Jan 27 2023 8:20AM EST [id number] Normal [facility] MRI BRAIN LOCALIZATION W IVC ONon 01-27-2023 [facility] Physician Referralon 023 Physician Referral [id number] 0TIFF Normal [facility] Physician Referralon 023 Physician Referral [id number] 0TIFF Normal [facility] CNOVSPon 12-22-2022 CNOVSP Visit (SP) Office (HEMCA3) BEN CRUZ ([id number]) 1975 F Date Time Provider Department 12/22/22 [...] were negative. Decl[place] an adjuvant trial [place]. Baseline imaging today is negative CC: Melanoma [...] No Does patient want to see a Boxing Trainer? No (yes to any of above refer [...] for Encounter Date Provider Department Center 12/22/2022 [id number] ECHEVERRIA [facility] [place] [facility] Prescriptions as of 12/23/2022 - meloxicam (MOBIC) 15 mg tablet - inclisiran (LEQVIO) 284 mg/1.5 mL injection - omeprazole (PRILOSEC) 20 mg capsule Take 20 mg by mouth once daily. Problem List As Of Date: 12/22/2022 (None) Visit Notes: >> Ava Urbina LPN [facility] Dec 22, 2022 10:14 AM Status: Signed Additional intake questions: Has the patient had fever, nausea, vomiting, diarrhea, constipation, fatigue for > 1 week? No Does the patient have a decreased appetite? No Does patient want to see a Boxing Trainer? No (yes to any of above refer patient to schedulers for dietitian appointment) ) Does patient have any new or increased numbness or tingling of extremities? No Is patient interested in fertility information? No Does patient need any prescription refills? No Does patient have an advanced directive in place? No, Patient refused referral to Social Work or Resource Center [facility] 11[facility]20[facility] BEN CRUZ ([id number]) 1975 F Date Time Provider Department 11/15/22 BETZY HEARD [facility] During your visit today, we recorded the following information about you: Betzy Heard RN 11/15/2022 2:04 PM Signed Calling Ben to follow up on [employer] message about scheduling gamma knife for 01/27/2023 No answer, left message stating that I'll go ahead and place the GK orders. Reminded to disregard ANY appointment times she sees in [employer], any automated text reminders or automated phone calls for 01/27/23 She will receive a call from the GK nurse or radiation therapist the day before with her arrival time. If she has any questions, I left office phone # for call back or she can send a [employer] message. I will send out a GK folder with additional information related to Mask Based Gamma Knife Radiosurgery Betzy Heard RN, BSN Rug Shampooer [facility] Allergies As of Date: 11/15/2022 (No Known Allergies) Date Reviewed: 10/19/2022 Reviewed by: Trista Bonilla APRN.SOCCER REFEREE - Fully Assessed Reason for Visit: Rug Shampooer - Other [3602] Cmt: Schedule gamma knife 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 Prescriptions as of 11/15/2022 - meloxicam (MOBIC) 15 mg tablet - inclisiran (LEQVIO) 284 mg/1.5 mL injection - omeprazole (PRILOSEC) 20 mg capsule Take 20 mg by mouth once daily. Problem List As Of Date: 11/15/2022 (None) Encounter Status:Closed by BETZY HEARD on 11/15/22 [facility] 10-20-2022 CNPN Telephone (NSCAMN) BEN CRUZ ([id number]) 1975 F Date Time Provider Department 10/20/22 BETZY HEARD [facility] During your visit today, we recorded the following information about you: Betzy Heard RN 10/20/2022 11:56 AM Signed Time Frame: As soon as can be scheduled - can be virtual or in clinic Orders: n/a Provider: Tang Referring: Pelon Diagnosis: meningioma Allergies As of Date: 10/20/2022 (No Known Allergies) Date Reviewed: 10/19/2022 Reviewed by: Trista Bonilla APRN.SOCCER REFEREE - Fully Assessed Reason for Visit: GIN - new pt consult with Dr. Beckwith [Other] Prescriptions as of 11/10/2022 - meloxicam (MOBIC) 15 mg tablet - inclisiran (LEQVIO) 284 mg/1.5 mL injection - omeprazole (PRILOSEC) 20 mg capsule Take 20 mg by mouth once daily. Problem List As Of Date: 10/20/2022 (None) Encounter Status:Closed by BETZY HEARD on 11/10/22 [facility] MRI BRAIN WO/W IVCONon 10-17 MRI BRAIN WO/W IVCON * * *Final Report* * * DATE OF EXAM: Oct 17 2022 11:20AM [facility] 0295 - MRI BRAIN WO/W IVCON [...] with air-fluid level suggestive of acute/active sinusitis. Material Engineer: [facility] Transcribe Date/Time: Oct 17 2022 11:35A Dictated by : CHUCKY BRAY MD This examination was interpreted and the report reviewed and electronically signed by: CHUCKY BRAY MD on Oct 17 2022 11:45AM EST [id number] Normal [facility] Complete Blood Count Auto Di ffon 09-12-2022 Basophils (Bld) [#/Vol] 0.1 10*3/uL Normal 0.0-0.2 [facility] Comment on above: Result Comment: PERF ORMED BY: [facility] [address] [place] [address] PATHOLOGIST BALL HOLDER ARNULFO STYLES M.D. Performed By: #### C BC #### [facility] [address] [place] [address] [place] Basophils/100 WBC (Bld) 0.7 % Normal . [facility] Comment on above: Performed By: #### C BC #### [facility] [address] [place] [address] [place] Eosinophils (Bld) [#/Vol] 0.2 10*3/uL Normal 0.0-0.45 [facility] Comment on above: Performed By: #### C BC #### [place] [address] [place] Eosinophils/100 WBC (Bld) 2.7 % Normal . [facility] Comment on above: Performed By: #### C BC #### [address] Erythrocyte distribution width (RBC) [Ratio] 12.9 % Normal 11.9-15.3 [facility] Comment on above: Performed By: #### C BC #### [address] Hematocrit (Bld) [Volume fraction] 41.8 % Normal 34.0-46.4 [facility] Comment on above: Performed By: #### C BC #### [address] Hemoglobin (Bld) [Mass/Vol] 14.3 g/dL Normal 11.8-15.4 [facility] Comment on above: Performed By: #### C BC #### [facility] [address] [place] [address] [place] Lymphocytes (Bld) [#/Vol] 2.0 10*3/uL Normal 1.00-4.8 [facility] Comment on above: Performed By: #### C BC #### [address] Lymphocytes/100 WBC (Bld) 25.3 % Normal . [facility] Comment on above: Performed By: #### C BC #### [facility] [address] MCH (RBC) [Entitic mass] 29.8 pg Normal 24.7-34.3 [facility] Comment on above: Performed By: #### C BC #### [address] MCV (RBC) [Entitic vol] 87.2 fL Normal 80-100 [facility] Comment on above: Performed By: #### C BC #### [address] Mean Corpuscular HGB Conc 34.2 g/dL Normal 32.0-35.0 [facility] Comment on above: Performed By: #### C BC #### [address] Monocytes (Bld) [#/Vol] 0.7 10*3/uL Normal 0.0-0.8 [facility] Comment on above: Performed By: #### C BC #### [address] Monocytes/100 WBC (Bld) 9.1 % Normal . [facility] Comment on above: Performed By: #### C BC #### [address] Neutrophils (Bld) [#/Vol] 4.8 10*3/uL Normal 1.8-7.7 [facility] Comment on above: Performed By: #### C BC #### [address] Neutrophils/100 WBC (Bld) 62.2 % Normal . [facility] Comment on above: Performed By: #### C BC #### [place] [address] [place] NRBC% 0.4 /100{WBC} Normal 0-0.5 [facility] Comment on above: Performed By: #### C BC #### [address] Platelet mean volume (Bld) [Entitic vol] 7.5 fL Normal 6.3-10.7 [facility] Comment on above: Performed By: #### C BC #### [facility] [address] Platelets (Bld) [#/Vol] 225 10*3/uL Normal 150-450 [facility] Comment on above: Performed By: #### C BC #### [address] RBC (Bld) [#/Vol] 4.80 10*6/uL Normal 3.60-5.00 [facility] Comment on above: Performed By: #### C BC #### [address] WBC (Bld) [#/Vol] 7.7 10*3/uL Normal 3.8-11.6 [facility] Comment on above: Performed By: #### C BC #### [address] XR chest 2V*on 09-12-2022 XR chest 2V* [facility] [place] [address] [place] [address] XRay Report Signed Patient: Ben Cruz MR#: [id number] 3 : 1975 Acct:[id number] Age/Sex: 47 / F ADM Date: 09/12/22 Loc: [place] Room: Type: [facility] Attending Dr: Taz Rossi DPM Copies to: [...] Florentino Woods M.D.09/12/2022 4:53 PM Dictation Location: [place] [address] Transcribed By: LINDA 09/12/221652 Dictated By: Florentino Woods II, MD 09/12/221651 Signed By: 09/12/221652 [facility] Louise 08-31-2022 [place] Telephone (RADRMN) BEN CRUZ ([id number]) 1975 F Date Time Provider Department 08/31/22 LUIS LICONA During your visit today, we recorded the following information about you: Adriana Brown 08/31/2022 4:12 PM Signed Patient called in to ask for a prescription of Atavan sent to her local [facility] prior to her scheduled MRI on 09/05. Prescription should be sent to the [facility] in [facility]. [facility] [phone] [place] [address] Trista Bonilla APRN.SOCCER REFEREE 08/31/2022 4:35 PM Signed Ativan sent to preferred pharmacy per patient request prior to MRI. PDMP website checked and validated. All prescriptions have been APPROPRIATELY filled. No suspicious activity was identified. 08/31/2022 by Trista Bonilla APRN.SOCCER REFEREE Allergies As of Date: 08/31/2022 (No Known Allergies) Date Reviewed: 08/31/2022 Reviewed by: Trista Bonilla APRN.SOCCER REFEREE - Fully Assessed Reason for Visit: Rug Shampooer - Other [3045] Visit Diagnosis:Malignant melanoma of torso excluding breast [...] Encounter Status:Closed by TRISTA BONILLA on 08/31/22 [facility] CNOVSPon 06-21-2022 CNOVSP Visit (SP) Office (HEMCA3) BEN CRUZ ([id number]) 1975 F Date Time Provider Department 06/21/22 [...] No Does patient want to see a Boxing Trainer? No (yes to any of above refer [...] were negative. Declined an adjuvant trial in [place]. Baseline imaging today is negative CC: Melanoma [...] with more than 50% of the total vrvd-zv-kwcx time of the visit in counseling / coordination of care. Debbie Echeverria MD Referring Provider: DEBBIE ECHEVERRIA [[id number]] Allergies As of Date: 06/21/2022 (No Known [...] for Encounter Date Provider Department Center 06/21/2022 [id number] ECHEVERRIA HEMCA3 [place] Prescriptions as [...] No Does patient want to see a Boxing Trainer? No (yes to any of above refer [...] Encounter Status:Closed by DEBBIE ECHEVERRIA on 06/21/22 [facility] MRI BRAIN WO/W IVCONon 02-23 MRI BRAIN WO/W IVCON * * *Final Report* * * DATE OF EXAM: Feb 23 2022 11:31AM [facility] 0295 - MRI BRAIN WO/W IVCON [...] unremarkable MRI brain with and without contrast. Material Engineer: TORI Transcribe Date/Time: Feb 23 2022 11:50A Dictated by : CARLITOS MCGUIRE MD This examination was interpreted and the report reviewed and electronically signed by: CARLITOS MCGUIRE MD on Feb 23 2022 11:55AM EST [id number] Normal [facility] CBC AUTO DIFFon 11-18-2021 BASO # 0.0 103/ul Normal 0.0-0.1 [facility] Comment on above: Performed By: #### H FPFCBC #### [facility] [address] [place] [address] Dr. Arcenio Billy Basophils/100 WBC (Bld) 0.4 % Normal 0.2-2.0 [facility] Comment on above: Performed By: #### H FPFCBC #### [facility] [address] [place] [address] Dr. Arcenio Billy EO # 0.2 103/ul Normal 0.0-0.7 [facility] Comment on above: Performed By: #### H FPFCBC #### [facility] [address] [place] [address] Dr. Arcenio Billy Eosinophils/100 WBC (Bld) 3.0 % Normal 0.9-7.0 [facility] Comment on above: Performed By: #### H FPFCBC #### [facility] [address] [place] [address] Dr. Arcenio Billy Erythrocyte distribution width (RBC) [Ratio] 12.1 % Normal 11.0-15.0 [facility] Comment on above: Performed By: #### H FPFCBC #### [facility] [address] [place] [address] Dr. Arcenio Billy Hematocrit (Bld) [Volume fraction] 43.1 % Normal 36.0-48.0 [facility] Comment on above: Performed By: #### H FPFCBC #### [facility] [address] [place] [address] Dr. Arcenio Billy Hemoglobin (Bld) [Mass/Vol] 14.1 g/dL Normal 12.0-16.0 [facility] Comment on above: Performed By: #### H FPFCBC #### [facility] [address] [place] [address] Dr. Arcenio Billy IG # 0.01 10e3/ul Normal 0.00-0.03 [facility] Comment on above: Performed By: #### H FPFCBC #### [facility] [address] [place] [address] Dr. Arcenio Billy IG % 0.2 % Normal 0.0-0.5 [facility] Comment on above: Performed By: #### H FPFCBC #### [facility] [address] [place] [address] Dr. Arcenio Billy LYMPH # 1.9 103/ul Normal 1.2-3.8 [facility] Comment on above: Performed By: #### H FPFCBC #### [facility] [address] [place] [address] Dr. Arcenio Billy Lymphocytes/100 WBC (Bld) 35.7 % Normal 20.5-60.0 [facility] Comment on above: Performed By: #### H FPFCBC #### [facility] [address] [place] [address] Dr. Arcenio Billy MCH (RBC) [Entitic mass] 28.8 pg Normal 26.7-34.0 [facility] Comment on above: Performed By: #### H FPFCBC #### [facility] [address] [place] [address] Dr. Arcenio Billy MCHC (RBC) [Mass/Vol] 32.7 g/dL Normal 29.9-35.2 [facility] Comment on above: Performed By: #### H FPFCBC #### [facility] [address] [place] [address] Dr. Arcenio Billy MCV (RBC) [Entitic vol] 88.1 fL Normal 81.0-99.0 [facility] Comment on above: Performed By: #### H FPFCBC #### [facility] [address] [place] [address] Dr. Arcenio Billy MONO # 0.5 103/ul Normal 0.3-0.8 [facility] Comment on above: Performed By: #### H FPFCBC #### [facility] [address] [place] [address] [address] Arcenio Billy Monocytes/100 WBC (Bld) 9.9 % Normal 1.7-12.0 [facility] Comment on above: Performed By: #### H FPFCBC #### [facility] [address] [place] [address] Dr. Arcenio Billy NEUT # 2.7 103/ul Normal 1.4-6.5 [facility] Comment on above: Performed By: #### H FPFCBC #### [facility] [address] [place] [address] Dr. Arcenio Billy Neutrophils/100 WBC (Bld) 50.8 % Normal 43.0-75.0 [facility] Comment on above: Performed By: #### H FPFCBC #### [facility] [address] [place] [address] Dr. Arcenio Billy Platelet mean volume (Bld) [Entitic vol] 8.9 fL Critically low 9.5-13.5 [facility] Comment on above: Performed By: #### H FPFCBC #### [facility] [address] [place] [address] Dr. Arcenio Billy PLT 271 103/ul Normal 150-450 [facility] Comment on above: Performed By: #### H FPFCBC #### [facility] [address] [place] [address] Dr. Arcenio Billy RBC 4.89 106/ul Normal 4.20-5.40 [facility] Comment on above: Performed By: #### H FPFCBC #### [facility] [address] [place] [address] Dr. Arcenio Billy WBC 5.3 103/ul Normal 4.0-11.0 [facility] Comment on above: Performed By: #### H FPFCBC #### [facility] [address] [place] [address] Dr. Arcenio Billy [facility] PROFILEon 022 Albumin [Mass/Vol] 3.7 g/dL Normal 3.4-5.0 [facility] Comment on above: Performed By: #### H FPF #### [facility] [address] [place] [address] [address] Arcenio Billy Albumin/Globulin [Mass ratio] 1.1 {ratio} Normal [facility] Comment on above: Performed By: #### H FPF #### [facility] [address] [place] [address] [address] Arcenio Billy ALP [Catalytic activity/Vol] 60 U/L Normal 46-116 [facility] Comment on above: Performed By: #### H FPF #### [facility] [address] [place] [address] [address] Arcenio Billy ALT [Catalytic activity/Vol] 47 U/L Normal 14-59 [facility] Comment on above: Performed By: #### H FPF #### [facility] [address] [place] [address] Dr. Arcenio Billy AST [Catalytic activity/Vol] 25 U/L Normal 15-37 [facility] Comment on above: Performed By: #### H FPF #### [facility] [address] [place] [address] Dr. Arcenio Billy Bilirubin [Mass/Vol] 0.5 mg/dL Normal 0.2-1.0 [facility] Comment on above: Performed By: #### H FPF #### [facility] [address] [place] [address] Dr. Arcenio Billy Calcium [Mass/Vol] 8.8 mg/dL Normal 8.5-10.1 [facility] Comment on above: Performed By: #### H FPF #### [facility] [address] [place] [address] Dr. Arcenio Billy Chloride [Moles/Vol] 103 mmol/L Normal 98-107 [facility] Comment on above: Performed By: #### H FPF #### [facility] [address] [place] [address] Dr. Arcenio Billy CHOL-HDL RATIO NORM SEE BELOW Normal [facility] Comment on above: Result Comment: 3.3 - 4.4 LOW RISK 4.4 - 7.1 AVERAGE RISK 7.1 - 11.0 MODERATE RISK >11.0 HIGH RISK Performed By: #### H FPF #### [facility] [address] [address] [address] Arcenio Billy Cholesterol [Mass/Vol] 352 mg/dL Critically high <=200 [facility] Comment on above: Performed By: #### H FPF #### [facility] [address] [address] [address] Arcenio Billy Cholesterol in HDL [Mass/Vol] 34 mg/dL Critically low 40-60 [facility] Comment on above: Performed By: #### H FPF #### [facility] [address] [address] [address] Arcenio Billy Cholesterol in LDL [Mass/Vol] 274.2 mg/dL Normal [facility] Comment on above: Performed By: #### H FPF #### [facility] [address] [address] [address] Arcenio Billy Cholesterol.total/C holesterol in HDL [Mass ratio] 10.4 {ratio} Normal [facility] Comment on above: Performed By: #### H FPF #### [facility] [address] [address] [address] Arcenio Billy CO2 [Moles/Vol] 25.7 mmol/L Normal 21.0-32.0 [facility] Comment on above: Performed By: #### H FPF #### [facility] [address] [address] [address] Arcenio Billy Creatinine [Mass/Vol] 0.91 mg/dL Normal 0.55-1.02 [facility] Comment on above: Performed By: #### H FPF #### [facility] [address] [address] [address] Arcenio Billy Globulin (S) [Mass/Vol] 3.4 g/dL Normal [facility] Comment on above: Performed By: #### H FPF #### [facility] [address] [address] [address] Arcenio Billy Glucose [Mass/Vol] 91 mg/dL Normal 74-106 [facility] Comment on above: Performed By: #### H FPF #### [facility] [address] [address] [address] Arcenio Billy HDL NORMAL > or = 60 mg/dl - LO W CARDIOVASCULAR RISK <40 mg/dl - HIGH CARDIOVASCULAR RISK Normal [facility] Comment on above: Performed By: #### H FPF #### [facility] [address] [address] [address] Arcenio Billy LDL CALC NORMAL SEE BELOW Normal [facility] Comment on above: Result Comment: <100 mg/dl OPTIMAL 100 - 129 mg/dl NEAR OR ABOVE OPTIMAL 130 - 159 mg/dl BORDERLINE HIGH 160 - 189 mg/dl HIGH >190 mg/dl VERY HIGH Performed By: #### H FPF #### [facility] [address] [address] [address] Arcenio Billy Potassium [Moles/Vol] 4.1 mmol/L Normal 3.5-5.1 [facility] Comment on above: Performed By: #### H FPF #### [facility] [address] [place] [address] Dr. Arcenio Billy Protein [Mass/Vol] 7.1 g/dL Normal 6.4-8.2 [facility] Comment on above: Performed By: #### H FPF #### [facility] [address] [place] [address] Dr. Arcenio Billy Sodium [Moles/Vol] 139 mmol/L Normal 136-145 [facility] Comment on above: Performed By: #### H FPF #### [facility] [address] [address] [address] Arcenio Billy Triglyceride [Mass/Vol] 219 mg/dL Critically high <=150 [facility] Comment on above: Performed By: #### H FPF #### [facility] [address] [place] [address] Dr. Arcenio Billy TSH 1.717 uIU/mL Normal 0.358-3.740 [facility] Comment on above: Performed By: #### H FPF #### [facility] [address] [place] [address] Dr. Arcenio Billy Urea nitrogen [Mass/Vol] 11.0 mg/dL Normal 7.0-18.0 [facility] Comment on above: Performed By: #### H FPF #### [facility] [address] [place] [address] Dr. Arcenio Billy Urea nitrogen/Creatinine [Mass ratio] 12.1 mg/mg Normal [facility] Comment on above: Performed By: #### H FPF #### [facility] [address] [place] [address] Dr. Arcenio Billy VLDL CALC 43.8 mg/dL Normal [facility] Comment on above: Performed By: #### H FPF #### [facility] [address] [place] [address] Dr. Arcenio Billy PAP ACOG PANEL 2: 30 to 65on 09-19-[address] [facility] Comment on above: Result Comment: Perf ormed at: WB Performed By: #### [id number] #### [facility] [address] [place] [address] Dr. Arcenio Billy Age Gdln ACOG Testing 30-[address] [facility] Comment on above: Performed By: #### [id number] #### [facility] [address] [place] [address] Dr. Arcenio Blily DIAGNOSIS: Comment Normal [facility] Comment on above: Result Comment: NEGA TIVE FOR INTRAEPITHELIAL LESION OR MALIGNANCY. FUNGAL ORGANISMS MORPHOLOGICALLY CONSISTENT WITH MOSES SPECIES ARE PRESENT. Performed at: WB Performed By: #### [id number] #### [facility] [address] [place] [address] Dr. Arcenio Billy HPV Aptima Negative Normal Negative [facility] Comment on above: Result Comment: This nucleic acid amplification test detects fourteen high-risk HPV types (16,18,31,33,35,39,45,51,52,56,58,59,66,68) without differentiation. Performed at: =G Performed By: #### [id number] #### [facility] [address] [place] [address] Dr. Arcenio Billy Methodology: Comment Normal [facility] Comment on above: Result Comment: This liquid based ThinPrep(R) pap test was screened with the use of an image guided system. Performed at: WB Performed By: #### [id number] #### [facility] [address] [place] [address] Dr. Arcenio Billy Note: Comment Normal [facility] Comment on above: Result Comment: The Pap smear is a screening test designed to aid in the detection of premalignant and malignant conditions of the uterine cervix. It is not a diagnostic procedure and should not be used as the sole means of detecting cervical cancer. Both false-positive and false-negative reports do occur. . Performed at: WB Performed By: #### [id number] #### [facility] [address] [address] [address] Arcenio Billy Performed by: Comment Normal [facility] Comment on above: Result Comment: Bronson Cordero Technical Training Specialist (ASCP) Performed at: WB Performed By: #### [id number] #### [facility] [address] [place] [address] Dr. Arcenio Billy Specimen adequacy: Comment Normal [facility] Comment on above: Result Comment: Sati sfactory for evaluation. No endocervical component is identified. Performed at: WB Performed By: #### [id number] #### [facility] [address] [place] [address] Dr. Arcenio Billy MG MAMM SCREEN 3D JULIO CÉSAR CADon 09-08-2021 MG MAMM SCREEN 3D JULIO CÉSAR CAD Patient: BEN CRUZ Exam Date: 09/08/2021 : 1975 Gender:F Ordering : DR CHELITA VILLANUEVA . Admission #: [id number] Family : Order #: [id number] CLICK HERE TO VIEW EXAM RADIOLOGY REPORT [...] at age 71. LOCATION: [facility] BREAST COMPOSITION: Scattered areas fibroglandular density. [...] MD on 09/08/2021 at 11:41 Normal [facility] MRI BRAIN WO/W IVCONon 08-23 [facility] MRI LIVER WO/W IVCONon 06-16 [facility] MRI BRAIN WO/W IVCONon 06-01 [facility] Vital Signs Date Time Vital Sign Value Performing Clinician Facility 03-16-2023 13:45-0500 Body height 162.56 cm Lissett Vega Other [facility] Other 03-16-2023 13:45-0500 Body mass index (BMI) [Ratio] 34.5 kg/m2 Lissett Vega Other [facility] Other 03-16-2023 13:45-0500 Body temperature 99.1 [degF] Lissett Vega Other [facility] Other 03-16-2023 13:45-0500 Body weight 91.17 kg Lissett Vega Other [facility] Other 03-16-2023 13:45-0500 Diastolic blood pressure 88 mm[Hg] Lissett Vega Other [facility] Other 03-16-2023 13:45-0500 SaO2% (BldA) [Mass fraction] 98 % Lissett Vega Other [facility] Other 03-16-2023 13:45-0500 Systolic blood pressure 128 mm[Hg] Lissett Vega Other [facility] Other 02-17-2023 14:47-0500 Blood Pressure Location Debbie NILL [facility] [place] 02-17-2023 14:47-0500 Diastolic blood pressure 84 mm[Hg] Debbie NILL [facility] [place] 02-17-2023 14:47-0500 Heart rate 76 /min Debbie NILL [facility] [place] 02-17-2023 14:47-0500 Respiratory rate 16 /min Debbie NILL [facility] [place] 02-17-2023 14:47-0500 Systolic blood pressure 128 mm[Hg] Debbie NILL [facility] [place] 09-21-2022 11:30-0400 Body height 162.56 cm Lissett Vega Other [facility] Other 09-21-2022 11:30-0400 Body mass index (BMI) [Ratio] 36.56 kg/m2 Lissett Vega Other [facility] Other 09-21-2022 11:30-0400 Body weight 96.62 kg Lissett Vega Other [facility] Other 09-21-2022 11:30-0400 Diastolic blood pressure 84 mm[Hg] Lissett Vega Other [facility] Other 09-21-2022 11:30-0400 Systolic blood pressure 137 mm[Hg] Lissett Vega Other [facility] Other 06-21-2022 10:32-0400 Body height 165 cm Debbie Echeverria MD Work Phone: [facility] 06-21-2022 10:32-0400 Body temperature 96.8 [degF] Debbie Echeverria MD Work Phone: [facility] 06-21-2022 10:32-0400 Body weight 98.79 kg Debbie Echeverria MD Work Phone: [facility] 06-21-2022 10:32-0400 Diastolic blood pressure 82 mm[Hg] Debbie Echeverria MD Work Phone: [facility] 06-21-2022 10:32-0400 Heart rate 74 /min Debbie Echeverria MD Work Phone: [facility] 06-21-2022 10:32-0400 Respiratory rate 18 /min Debbie Echeverria MD Work Phone: [facility] 06-21-2022 10:32-0400 SaO2% (BldA) [Mass fraction] 96 % Debbie Echeverria MD Work Phone: [facility] 06-21-2022 10:32-0400 Systolic blood pressure 139 mm[Hg] Debbie Echeverria MD Work Phone: [facility] 12-21-2021 13:24-0400 Body temperature 98.6 [degF] Debbie Echeverria MD Work Phone: [facility] 12-21-2021 13:24-0400 Body weight 102.15 kg Debbie Echeverria MD Work Phone: [facility] 12-21-2021 13:24-0400 Diastolic blood pressure 82 mm[Hg] Debbie Echeverria MD Work Phone: [facility] 12-21-2021 13:24-0400 Heart rate 79 /min Debbie Echeverria MD Work Phone: [facility] 12-21-2021 13:24-0400 Respiratory rate 20 /min Debbie Echeverria MD Work Phone: [facility] 12-21-2021 13:24-0400 SaO2% (BldA) [Mass fraction] 100 % Debbie Echeverria MD Work Phone: [facility] 12-21-2021 13:24-0400 Systolic blood pressure 145 mm[Hg] Debbie Echeverria MD Work Phone: [facility] Encounters Encounter Date Encounter Type Care Provider Facility Start: 03-23-2023 End: 03-23-2023 ambulatory Lissett Vega Other [facility] Other Start: 03-23-2023 Telephone encounter Lissett Gary [facility] Start: 03-16-2023 End: 03-16-2023 ambulatory Lissett Gary Other [facility] Other Start: 03-16-2023 Office outpatient vi sit 15 minutes Lissett Vega [facility] Start: 03-08-2023 End: 03-09-2023 ambulatory Debbie HERNANDEZL Facility:[id number] Start: 02-17-2023 End: 02-18-2023 ambulatory Debbie R NILL Facility:[facility] Start: 02-17-2023 End: 02-17-2023 Patient encounter procedure Debbie DE LOS SANTOS General Surgery [facility] [place] Start: 02-07-2023 Telephone encounter Johann Henriquez RN [facility] [place] Start: 02-06-2023 Telephone encounter Johann Henriquez RN [facility] Comment on above: Gamma Knife Follow-u p Start: 01-27-2023 End: 01-28-2023 Orders Only Gurpreet Beckwith DO, PhD Work Phone: Neurosurgery Comment on above: Benign neoplasm of m eninges (HCC) (Primary Dx) Benign neoplasm of m eninges (HCC) [D32.9] Start: 01-27-2023 Patient encounter procedure Burak Prakash MD Work Phone: [facility] Start: 01-27-2023 Radiation Oncology Note Susi Prakash MD Work Phone: [facility] Comment on above: Procedure Treatment Planning Start: 01-24-2023 ambulatory Debbie DE LOS SANTOS Facility:[facility] Start: 01-23-2023 End: 01-23-2023 ambulatory Lissett Vega Other [facility] Other Start: 01-23-2023 Telephone encounter Lissett Vega [facility] Start: 12-22-2022 End: 12-22-2022 ambulatory DEBBIE ECHEVERRIA Facility:[facility] Start: 11-15-2022 Telephone encounter Betzy liao RN Work Phone: [facility] Comment on above: Rug Shampooer - O ther (Schedule gamma knife 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/) Start: 11-04-2022 End: 11-04-2022 ambulatory Gurpreet Beckwith DO, PhD Work Phone: [facility] Comment on above: Benign neoplasm of m eninges (HCC) (Primary Dx) Start: 11-04-2022 End: 11-04-2022 Telemedicine consultation with patient Gurpreet Beckwith DO, PhD Work Phone: [facility] Start: 10-31-2022 End: 10-31-2022 ambulatory Lissett Vega Other [facility] Other Start: 10-31-2022 Telephone encounter Lissett Vega [facility] Start: 10-19-2022 End: 10-19-2022 ambulatory DEBBIE ECHEVERRIA Facility:[facility] Start: 10-19-2022 End: 10-19-2022 ambulatory Luis Licona MD Work Phone: Radiation Oncology Comment on above: Meningioma (HCC) (Pr imary Dx) Start: 10-19-2022 End: 10-19-2022 Telemedicine consultation with patient Luis Licona MD Work Phone: [facility] Start: 10-18-2022 End: 10-18-2022 ambulatory DEBBIE ECHEVERRIA Facility:[facility] Start: 10-18-2022 End: 10-18-2022 ambulatory Trista Bonilla APRN.SOCCER REFEREE Work Phone: Radiation Oncology Comment on above: Meningioma (HCC) (Pr imary Dx) Start: 10-18-2022 End: 10-18-2022 Telemedicine consultation with patient Trista Bonilla APRN.SOCCER REFEREE Work Phone: [facility] Start: 10-17-2022 End: 10-17-2022 ambulatory TRISTA BONILLA Facility:[facility] Start: 10-17-2022 End: 10-17-2022 Subsequent hospital visit by physician Mri [facility] Lillian (Lg Bore/1.5t) Radiology MRI Comment on above: Benign neoplasm of m eninges (HCC) [D32.9] Start: 09-23-2022 End: 09-23-2022 ambulatory Lissett Vega Other [facility] Other Start: 09-23-2022 Telephone encounter Lissett Vega [facility] Start: 09-21-2022 End: 09-21-2022 ambulatory Lissett Vega Other [facility] Other Start: 09-21-2022 Encounter for other preprocedural examination Lissett Vega [facility] Start: 09-21-2022 Office outpatient vi sit 25 minutes Lissett Vega [facility] Start: 09-12-2022 End: 09-12-2022 ambulatory Taz Rossi Facility:[facility] Start: 08-31-2022 Telephone encounter Luis osborn MD Work Phone: Radiation Oncology Comment on above: Rug Shampooer - O ther Start: 06-21-2022 End: 06-21-2022 ambulatory DEBBIE ECHEVERRIA Facility:[facility] Start: 06-21-2022 End: 06-21-2022 ambulatory Debbie Echeverria MD Work Phone: Hematology/Oncology Comment on above: Malignant melanoma o f torso excluding breast (HCC) (Primary Dx) Start: 06-21-2022 End: 06-21-2022 Patient encounter procedure Debbie Echeverria MD Work Phone: [facility] Start: 03-16-2022 End: 03-16-[address] LISSETT VEGA Facility:[facility] Start: 02-28-2022 End: 02-28-2022 ambulatory DEBBIE ECHEVERRIA Facility:[facility] Start: 02-28-2022 End: 02-28-2022 ambulatory Trista Bonilla APRNJuveSOCCER REFEREE Work Phone: Radiation Oncology Comment on above: Benign neoplasm of m eninges (HCC) (Primary Dx) Start: 02-28-2022 End: 02-28-2022 Telemedicine consultation with patient Trista Bonilla APRN.SOCCER REFEREE Work Phone: [facility] Start: 02-23-2022 End: 02-23-2022 ambulatory LUIS LICONA Facility:[facility] Start: 02-23-2022 End: 02-23-2022 Subsequent hospital visit by physician Mri [facility] Lillian (Lg Bore/1.5t) Radiology MRI Comment on above: Benign neoplasm of m eninges (HCC) [D32.9] Start: 12-21-2021 End: 12-21-2021 ambulatory Debbie Echeverria MD Work Phone: Hematology/Oncology Comment on above: Malignant melanoma o f torso excluding breast (HCC) (Primary Dx) Start: 12-21-2021 End: 12-21-2021 Patient encounter procedure Debbie Echeverria MD Work Phone: [facility] Start: 12-15-2021 End: 12-15-[address] LISSETT VEGA Facility:[facility] Start: 12-11-2021 Gynecological examin ation normal Lissett Vega Other [facility] Other Start: 12-01-2021 Telephone encounter Debbie Echeverria MD Work Phone: Hematology/Oncology Comment on above: Rug Shampooer - O ther Start: 11-18-2021 End: 11-19-2021 [...] with patient Luis Licona MD Work Phone: [facility] Start: 08-23-2021 End: 08-23-2021 Subsequent hospital visit by physician Mri [facility] [place]illian (Lg Bore/1.5t) Radiology MRI Comment on above: Benign neoplasm of m eninges (HCC) [D32.9] Start: 06-16-2021 End: 06-16-2021 Subsequent hospital visit by physician Mri [facility] [place] (Lg Bore/1.5t) Radiology MRI Comment on above: Malignant 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] Start: 06-01-2021 End: 06-01-2021 Subsequent hospital visit by physician Mri [facility] [place] (Lg Bore/1.5t) Radiology MRI Comment on above: [...] left shoulder Fasciotomy of foot Debbie Lucy ILL Hysterectomy Lissett Gary Other Laminectomy Debbie NILL Screening for malign ant neoplasm of breast Lissett Gary Other Stereotactic destruc tion of lesion using gamma radiation Debbie NILL Vaginal hysterectomy Debbie NILL Plan of Treatment Date Care Activity Detail Author Start: 12-21-2022 Adult depression screening assessment DEPRESSION SCREENING [facility] Start: 12-02-2022 Influenza vaccination [facility] Start: 08-29-2022 End: 03-31-2023 Mri brain brain stem w/o w/contrast material MRI BRAIN WO/W IVCON Radiology Routine Benign neoplasm of meninges (HCC) Expected: 08/29/2022, Expires: 03/31/2023 [facility] Work Phone: Comment on above: Expected: 08/29/2022 , Expires: 03/31/2023 Start: 08-22-2022 Adult depression screening assessment DEPRESSION SCREENING [facility] Start: 04-03-2022 DEPRESSION ASSESSMENT DEPRESSION ASS ESSMENT [facility] Start: 01-24-2022 DIABETES SCREEN DIABETES SCREEN [facility] Start: 01-24-2022 Diabetes Screening Diabetes Screenin g [facility] Start: 12-02-2021 Influenza vaccination [facility] Start: 04-03-2021 DEPRESSION ASSESSMENT DEPRESSION ASS ESSMENT [facility] Start: 07-12-2020 COLOGUARD (FIT-DNA) COLOGUARD (FIT-D NA) [facility] Start: 07-12-2020 Colonoscopy COLONOSCOPY [facility] Start: 07-12-2020 COLORECTAL CANCER SCREENING COLORECTAL CANCER SCREENING [facility] Start: 07-12-[address] COLONOGRAPHY [facility] Start: 07-12-2020 FECAL OCCULT BLOOD FECAL OCCULT BLOO D [facility] Start: 07-12-2020 Lipid 1996 panel - S emeterio or Plasma Lipid Screening [facility] Start: 07-12-2020 LIPID SCREEN LIPID SCREEN [facility] Start: 07-12-2020 SIGMOIDOSCOPY SIGMOIDOSCOPY [facility] Start: 2015 Mammography [facility] Start: 07-12-2005 HPV TESTING HPV TESTING [facility] Start: 07-12-1996 PAP TESTING PAP TESTING [facility] Start: 07-12-1994 Urine microalbumin profile [facility] Start: 07-12-1993 HEPATITIS C SCREENING HEPATITIS C SC REENING [facility] Start: 07-12-1993 HIV SCREENING HIV SCREENING [facility] Start: 07-12-1981 PNEUMOCOCCAL (1 - PCV) PNEUMOCOCCAL (1 - PCV) [facility] Start: 07-12-1980 COVID-19 VACCINE (#1) COVID-19 VACCI NE (#1) [facility] Start: 01-12-1976 COVID-19 VACCINE (#1) COVID-19 VACCI NE (#1) [facility] Start: 1975 HEPATITIS B (1 of 3 - 3-dose series) HEPATITIS B (1 of 3 - 3-dose series) [facility] Start: 1975 Hepatitis B Vaccine (1 of 3 - 3-dose series) Hepatitis B Vaccine (1 of 3 - 3-dose series) [facility] End: 09-22-2022 Mri brain brain stem w/o w/contrast material MRI BRAIN WO/W IVCON Radiology Routine Benign neoplasm of meninges (HCC) 1 Occurrences starting 08/23/2021 until 09/22/2022 [facility] Work Phone: Comment on above: 1 Occurrences starti ng 08/23/2021 until 09/22/2022 [facility] ANESTHESIA O NLY [facility] Immunizations Immunization Date Immunization Notes Care Provider Fa cility 06-05-2020 SARS-CoV-2 (COVID-19 ) mRNA BNT-162b2 vax Debbie NILL [facility] 05-15-2020 SARS-CoV-2 (COVID-19 ) mRNA BNT-162b2 vax Debbie NILL [facility] [place] NEGATED: Highlighted row has not occurred!02-17-2023 influenza virus vaccine, unspecified formulation Debbie NILL [facility] [place] Payers Date Payer Category Payer Self-pay 2018 Unknown [employer]MO [employer] [id number] 2018-Present [phone] [address] [place] [address] PPO [id number] 2018 Unknown [id number] 1975 Unknown [id number] 1975 Unknown [id number] 1975 Unknown [id number] 1975 Unknown [id number] 1975 Unknown [id number] 1975 Unknown [id number] 1959 Self-pay [id number] 1959 Unknown [id number] Unknown [id number] Unknown [id number] Social History Date Type Detail Facility Start: 11-19-2018 End: 02-17-2023 Tobacco smoking status NHIS Ex-smoker [facility] End: 08-02-2018 History of tobacco use Current smoker [facility] End: 08-02-2018 History of tobacco use Cigarette Smoker [facility] Start: 11-19-2018 Tobacco use and exposure Smokeless t obacco non-user [facility] Start: 06-21-2021 End: 12-22-2022 Alcohol intake Current drinker of alcohol (finding) [facility] Start: 11-19-2018 History SDOH Alcohol Comment occasionally [facility] Start: 1975 Sex Assigned At Not on file [facility] Start: 12-11-2021 End: 12-21-2021 Exposure to SARS-CoV-2 (event) Not sure [facility] Start: 06-21-2022 End: 10-18-2022 Sex Assigned At [facility] Start: 06-21-2022 End: 10-18-2022 History of Social function [facility] Adult Depression Screening Assessment 0 [facility] Start: 01-20-2020 Gender identity Identifies as female gender (finding) [facility] Start: 05-02-2021 End: 06-11-2021 Exposure to SARS-CoV-2 (event) Unable to assess [facility] Functional Status Date Assessment Result Facility 02-17-2023 [...] Mar, 2023 Microscopic hematuria (ICD-10 - R31.29) [facility] Other 11-17-2023 NoteChief Complaint consultation for screening colonoscopy [facility] Staff 47 year old female presents [...] Recorded SARS-CoV-2 (COVID-19) mRNA BNT-162b2 vax 05/15/2020 [facility]:Result Comment: Electronically Signed By: MAGALI MCKINLEY, Debbie He\Date and Time Signed: 02/17/23 15:11 [id number] Miscellaneous Notes* Telephone Encounter - Johann Henriquez [...] symptoms or concerns arise. documented in this encounterCommunity Memorial Hospital11-07-2023 Miscellaneous Notes* Telephone Encounter - Johann Henriquez RN - 02/07/2023 1:13 PM EST 2nd attempt to reach out, patient unavailable. Will send [employer] message with contact information to call if she is experiencing any symptoms or has any concerns since gamma knife treatment. * Telephone Encounter - Johann Henriquez RN - 02/06/2023 1:17 PM EST Calling Ben for post-GKRS follow-up. Unable to reach at this time. Left voicemail. documented in this encounterCommunity Memorial Hospital11-01-2023 NoteHNO ID: [id number] Author: Burak Prakash MD Service: Radiation Oncology Author Type: Physician Type: Progress Notes Filed: 02/03/2023 12:33 AM Note Text: BEN CRUZ [id number] 02/01/2023 [facility] / Department of Radiation [...] discussed with the patient. Staff Physician Burak Prakash M.D :57 AM Electronically Signed cc: [facility] NoteHNO ID: [id number] Author: Gurpreet Beckwith DO, PhD Service: ? Author Type: Physician Type: Progress Notes Filed: 01/27/2023 1:49 PM Note Text: [facility] [address] [place] [address] [place] OPERATIVE REPORT NAME: Ben Cruz [facility] NO.: [id number] MASK SIMULATION DATE: 2023-01-27 RADIATION TREATMENT START DATE: 2023-01-27 RADIATION TREATMENT END DATE: 2023-01-27 NUMBER OF FRACTIONS: 1 PREOPERATIVE DIAGNOSIS: Meningioma POSTOPERATIVE DIAGNOSIS: Same OPERATION: 1 fraction mask gamma knife 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. ANESTHESIA: None SURGEON: Gurpreet Beckwith DO, PhD - Stereotactic treatment planning. RADIATION ONCOLOGIST: Burak Prakash M.D. ASSISTANTS: NONE SPECIMEN: None EBL: 0 [...] Number of Fractions: 1 After the usual vice president quality improvement procedures were performed, fractionated 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 was delivered with use of the Gamma Knife. The Gamma Knife checklist and time outs were performed during this procedure. Gurpreet Beckwith DO, PhDAdena [facility]10-27-2023 NoteHNO ID: [id number] Author: Burak Prakash MD Service: Radiation Oncology Author Type: Physician Type: Progress Notes Filed: 02/01/2023 12:33 AM Note Text: BEN CRUZ [id number] 01/27/2023 [facility] STEREOTACTIC RADIOSURGERY (SRS) DAILY PROCEDURE NOTE DATE [...] patient setup, I conferred with the medical donation professional to approve the final setup. I was [...] will continue as planned. Electronically Signed Burak Prakash M.D. :10 [facility]10-27-2023 NoteHNO ID: [id number] Author: Burak Prakash MD Service: Radiation Oncology Author Type: Physician Type: Progress Notes Filed: 02/02/2023 12:32 AM Note Text: BEN CRUZ [id number] 01/27/2023 [facility] Department of Radiation Oncology [facility] RADIATION ONCOLOGY GAMMA KNIFE SIMULATION NOTE DATE [...] initiated after treatment planning. Electronically Signed Burak Prakash M.D. :18 [facility]10-27-2023 NoteHNO ID: [id number] Author: Burak Prakash MD Service: Radiation Oncology Author Type: Physician Type: Progress Notes Filed: 02/01/2023 12:33 AM Note Text: BEN CRUZ [id number] 01/27/2023 [facility] Department of Radiation Oncology [facility] RADIATION ONCOLOGY GAMMA KNIFE TREATMENT PLANNING NOTE [...] isodose distribution and DVH. Electronically Signed Burak Prakash M.D. / [facility] 31:29 [facility]10-27-2023 History of Present illness Narrative* Gurpreet Beckwith DO, PhD - 01/27/2023 1:49 PM EDT [facility] [address] [place] [address] [place] OPERATIVE REPORT NAME: Ben Cruz [facility] NO.: [id number] MASK SIMULATION DATE: 2023-01-27 RADIATION TREATMENT START DATE: 2023-01-27 RADIATION TREATMENT END DATE: 2023-01-27 NUMBER OF FRACTIONS: 1 PREOPERATIVE DIAGNOSIS: Meningioma POSTOPERATIVE DIAGNOSIS: Same OPERATION: 1 fraction mask gamma knife 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. ANESTHESIA: None SURGEON: Gurpreet Beckwith DO, PhD - Stereotactic treatment planning. RADIATION ONCOLOGIST: Burak Prakash M.D. ASSISTANTS: NONE SPECIMEN: None EBL: 0 [...] Number of Fractions: 1 After the usual vice president quality improvement procedures were performed, fractionated 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 was delivered with use of the Gamma Knife. The Gamma Knife checklist and time outs were performed during this procedure. Gurpreet Beckwith DO, PhD documented in this encounterCommunity Memorial Hospital10-27-2023 NoteHNO ID: [id number] Author: Gurpreet Beckwith DO, PhD Service: ? Author Type: Physician Type: Progress Notes Filed: 01/27/2023 11:22 AM Note Text: [facility] [address] [place] [address] [place] OPERATIVE REPORT NAME: Ben Cruz [facility] NO.: [id number] MASK SIMULATION DATE: 2023-01-27 RADIATION TREATMENT START DATE: 2023-01-27 RADIATION TREATMENT END DATE: 2023-01-27 NUMBER OF FRACTIONS: 1 PREOPERATIVE DIAGNOSIS: Meningioma POSTOPERATIVE DIAGNOSIS: Same OPERATION: 1 fraction mask gamma knife 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. ANESTHESIA: None SURGEON: Gurpreet Beckwith DO, PhD - Stereotactic treatment planning. RADIATION ONCOLOGIST: Burak Prakash M.D. ASSISTANTS: NONE SPECIMEN: None EBL: 0 [...] Number of Fractions: 1 After the usual vice president quality improvement procedures were performed, fractionated 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 was delivered with use of the Gamma Knife. The Gamma Knife checklist and time outs were performed during this procedure. Gurpreet Beckwith DO, PhDAdena [facility]10-27-2023 NoteHNO ID: [id number] Author: Zee Padilla Tech Service: Radiology Author Type: Case Packer Type: Progress Notes Filed: 01/27/2023 8:06 AM [...] BY: Tyshawn Lawler January 27, 2023 8:06 [facility]10-27-2023 NoteHNO ID: [id number] Author: Gurpreet Beckwith DO, PhD Service: ? [...] - 123 U/L 60 (more content not included)...[facility]10-27-2023 History of Present illness Narrative* Gurpreet Beckwith DO, PhD - 01/27/2023 11:21 AM EDT [facility] [address] [place] [address] [place] OPERATIVE REPORT NAME: Ben Cruz [facility] NO.: [id number] MASK SIMULATION DATE: 2023-01-27 RADIATION TREATMENT START DATE: 2023-01-27 RADIATION TREATMENT END DATE: 2023-01-27 NUMBER OF FRACTIONS: 1 PREOPERATIVE DIAGNOSIS: Meningioma POSTOPERATIVE DIAGNOSIS: Same OPERATION: 1 fraction mask gamma knife 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. ANESTHESIA: None SURGEON: Gurpreet Beckwith DO, PhD - Stereotactic treatment planning. RADIATION ONCOLOGIST: Burak Prakash M.D. ASSISTANTS: NONE SPECIMEN: None EBL: 0 [...] Number of Fractions: 1 After the usual vice president quality improvement procedures were performed, fractionated 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 was delivered with use of the Gamma Knife. The Gamma Knife checklist and time outs were performed during this procedure. Gurpreet Beckwith DO, PhD documented in this encounterCommunity Memorial Hospital10-27-2023 History of Present illness Narrative* Zee Padilla [...] 27, 2023 8:06 AM documented in this encounterCommunity Memorial Hospital10-27-2023 NoteHNO ID: [id number] Author: Anton Terrell RN Service: Nursing Author [...] Cruz DATE: January 27, 2023 TIME: 7:46 [facility]10-27-2023 NoteHNO ID: [id number] Author: Mariela Bruk RT(R) Service: Radiology Author Type: Technologist Type: [...] BY: RT Nestor(R) January 27, 2023 7:59 [facility]10-27-2023 History of Present illness Narrative* Gurpreet [...] 123 U/L 60 Final Pathology: Specimen #: [id number]* Submitting Physician: DEBBIE ECHEVERRIA MD FINAL DIAGNOSIS [...] FRONTAL LOBE, UNCHANGED GOING BACK TO 06/01/2021 Material Engineer: [facility] Transcribe Date/Time: Jan 27 2023 8:08A Dictated [...] today Gurpreet Beckwith DO, PhD cc: Ben toro documented in this encounterCommunity Memorial Hospital10-27-2023 NoteHNO ID: [id number] Author: Gayle Acevedo RN Service: ? Author Type: Registered Nurse Type: Progress Notes Filed: 01/27/2023 10:29 AM Note Text: January 27, 2023 0630 Ben arrived ambulatory Discharge Transportation Verification: Yes, via/with Ben arrived for imaging, mask SIM, ICON mask-based GKRS, and single-session mask-based treatment. 0645 1 mg PO Ativan given for anxiety prior to mask SIM per order of Dr. Aria Beckwith DO, Kaitlin Plank, RN 0735 Mask SIM completed. Ben Arianna Cruz returned to department for treatment # 1 of 1. Is patient receiving immunotherapy infusions: Not Applicable. Patient's Age: 47 Menstruation Status: [place] [facility] [place]: N/A test not performed [...] verbalized understanding; patient discharged via/with Gayle Acevedo [facility]-2023 Instructions* Patient Instructions* Gayle Acevedo RN - 01/27/2023 7:45 AM EDT [facility] Discharge Instructions As with [...] or hospital other than the [facility] with any problem related to the [...] may your physician, Dr. Virgil Beckwith at [phone] Monday through Monday 8:00 am to 5:00 pm, or call the Gamma Knife nurse Monday through Monday 8:00 am to 4:00 pm at [phone]. In the evening or on weekends, call [phone] or toll-free [phone] and ask the still pump operator to page your neurosurgeon's resident client service and consulting manager. documented in this encounterCommunity Memorial Hospital10-27-2023 History of Present illness Narrative* Anton Terrell [...] 27, 2023 7:59 AM documented in this encounterCommunity Memorial Hospital10-27-2023 History of Present illness Narrative* Gayle Acevedo [...] to department for treatment # 1 of . Is patient receiving immunotherapy infusions: Not Applicable. Patient's Age: 47 Menstruation Status: [place] [facility] [place]: N/A test not performed [...] via/with Gayle Acevedo RN documented in this encounterCommunity Memorial Hospital10-27-2023 History of Present illness Narrative* Burak Prakash MD - 01/27/2023 12:00 AM EDT BEN CRUZ [id number] 01/27/2023 [facility] STEREOTACTIC RADIOSURGERY (SRS) DAILY PROCEDURE NOTE DATE OF PROCEDURE: 01/27/2023 FRACTION NUMBER: of CUMULATIVE DOSE: 14Gy (Out of a [...] to patientsetup, I conferred with the medical donation professional to approve the final setup. I was [...] will continue as planned. Electronically Signed Burak Prakash M.D. 31:10 PM documented in this encounterCommunity Memorial Hospital10-27-2023 History of Present illness Narrative* Burak Prakash MD - 01/27/2023 12:00 AM EDT BEN CRUZ [id number] 01/27/2023 [facility] Department of Radiation Oncology [facility] RADIATION ONCOLOGY GAMMA KNIFE TREATMENT PLANNING NOTE [...] isodose distribution and DVH. Electronically Signed Burak Prakash M.D. / [facility] 31:29 PM documented in this encounterCommunity Memorial Hospital09-21-2023 NoteHNO ID: [id number] Author: Debbie Echeverria MD Service: ? Author Type: Physician Type: Progress Notes Filed: 12/23/2022 9:46 AM Note Text: December 22, 2022 DXN: Resected T4aN0 desmoplastic melanoma. The lesion was about 4.5mm located on her back with 2 negative SLNs (left axilla). There was no reported neurtropism and only one mitotic figure. Margins were negative. Decl[place] an adjuvant trial [place]. Baseline imaging today is negative CC: Melanoma [...] beckwith components of the Resident. Debbie Echeverria, [facility]08-15-2023 Miscellaneous Notes* Telephone Encounter - Betzy Heard RN - 11/15/2022 1:57 PM EDT Calling Ben to follow up on [employer] message about scheduling gamma knife for 01/27/2023 No answer, left message stating that I'll go ahead and place the GK orders. Reminded to disregard ANY appointment times she sees in [employer], any automated text reminders or automated phone calls for 01/27/23 She will receive a call from the GK nurse or radiation therapist the day before with her arrival time. If she has any questions, I left office phone # for call back or she can send a [employer] message. I will send out a GK folder with additional information related to Mask Based Gamma Knife Radiosurgery Betzy Heard RN, BSN [employer] Shampoo[employer] [facility] documented in this encounterCommunity Memorial Hospital08-04-2023 NoteHNO ID: [id number] Author: Gurpreet Beckwith DO, PhD Service: ? Author Type: Physician Type: Progress Notes Filed: 11/04/2022 1:27 PM Note Text: [facility]cology [facility] New Patient Virtual Consultation Referred by Dr. Luis Licona We had a virtual visit conducted via [employer] virtual visit. I received consent from the patient to perform the visit using this platform. I have communicated my name and active licensure. The patient's identity and physical location were verified at the time of this visit. Either the patient or their legal sales donor recruitment representative has been informed of the risks [...] Pathology: Specimen #: [id number] (more content not included)...[facility] 11-04-2022 History of Present illness Narrative* Gurpreet Beckwith DO, PhD - 11/04/2022 1:00 PM EDT Images from the original note were not included. [facility] New Patient Virtual Consultation Referred by Dr. Luis Licona We had a virtual visit conducted via [employer] virtual visit. I received consent from the patient to perform the visit using this platform. I have communicated my name and active licensure. The patient's identity and physical location wereverified at the time of this visit. Either the patient or their legal sales donor recruitment representative has been informed of the risks [...] 123 U/L 60 Final Pathology: Specimen #: [id number]* Submitting Physician: DEBBIE ECHEVERRIA MD FINAL DIAGNOSIS Skin, left upper midline back, shave biopsy - Desmoplastic melanoma, see synoptic report. SDB/rw 11/09/2018 Imaging: MRI Report MRI BRAIN WO/W IVCON Exam End: 10/17/2022 11:20 AM (Final result) Narrative: * * *Final Report* * * DATE OF EXAM: Oct 17 2022 11:20AM [facility] 0295 - MRI BRAIN WO/W IVCON [...] with air-fluid level suggestive of acute/active sinusitis. [facility] Transcribe Date/Time: Oct 17 2022 [...] which included preparing to see the patient, zbxo-wk-uhpa patient care, completing clinical documentation, obtaining and/or reviewing separately obtained history, performing a medically appropriate examination, counseling and educating the pat ient/family/caregiver, ordering medications, tests, or procedures, communicating with other HCPs (not separately reported), independently interpreting results (not separately reported), communicatingresults to the patient/family/caregiver, and care coordination (not separately reported). Gurpreet Beckwith DO, PhD cc: Ben toro documented in this encounterCommunity Memorial Hospital07-31-2023 Evaluation note* Encounter Date Diagnosis Assessment Notes Treatment Notes Treatment Clinical Notes Oct, Screen for colon cancer (ICD-10 - Z12.11) [employer] Other 07-19-2023 NoteHNO ID: [id number] Author: Luis Licona MD Service: ? Author [...] resident's medical decisio (more content not included)... [facility]07-19-2023 History of Present illness Narrative* Luis Licona MD - 10/19/2022 4:30 PM EDT Radiation Oncology - Follow Up Note TAUSSIG [...] Luis Licona MD cc: Debbie Echeverria [address] [place] [facility] [id number] documented in this encounterCommunity Memorial Hospital07-18-2023 NoteHNO ID: [id number] Author: Trista Bonilla APRN.SHERITA Service: ? Author Type: Nurse Practitioner Type: Progress Notes Filed: 10/19/2022 12:11 AM Note Text: Elements of this note, including HPI, ROS, Physical Exam, Assessment and Plan were copied and pasted from 02/28/22 encounter with me. Updates have been made where noted and reflect current exam and medical decision making from October 18, 2022. Trista Bonilla APRN.SHERITA. [facility] DISTANCE HEALTH VISIT This visit is a Virtual MyChart video visit encounter which required patient-provider interaction for the medical decision making as documented below. Persons Present: patient Ben Cruz has consented to this distance health encounter. Total Time Spent: more than 20 minutes npey-ij-eviq with the patient and over half the [...] with air-fluid level suggestive of acute/active sinusitis. Material Engineer: [employer] Transcribe Date/Time: Oct 17 2022 11:35A [...] Moves all extremities purp (more content not included)...[facility]07-18-2023 History of Present illness Narrative* Trista Bonilla APRN.SHERITA - 10/18/2022 10:30 AM EDT Elements of this note, including HPI, ROS, Physical Exam, Assessment and Plan were copied and pasted from 02/28/22 encounter with me. Updates have been made where noted and reflect current exam and medical decision making from October 18, 2022. Trista Bonilal APRN.SHERITA. [facility] DISTANCE HEALTH VISIT This visit is a Virtual MyChart video visit encounter which required patient- provider interaction for the medical decision making as documented below. Persons Present: patient Ben Cruz has consented to this distance health encounter. Total Time Spent: more than 20 minutes osen-ke-tvfm with the patient and over half the [...] DATE OF EXAM: Oct 17 2022 11:20AM [facility] 0295 - MRI BRAIN WO/W IVCON [...] with air-fluid level suggestive of acute/active sinusitis. Material Engineer: [employer] Transcribe Date/Time: Oct 17 2022 11:35A [...] Cc: Dr. Luis Echeverria documented in this encounterCommunity Memorial Hospital07-17-2023 NoteHNO ID: [id number] Author: Nidia Morelos RN Service: Nursing Author [...] Cruz DATE: October 17, 2022 TIME: 10:40 [facility]07-17-2023 NoteHNO ID: [id number] Author: MANISH Hubbard Service: Radiology Author Type: Case Packer Type: Progress Notes Filed: 10/17/2022 10:54 AM [...] disposition Discontinued SIGNED BY: MANISH Hubbard Tech October 17, 2022 10:53 [facility]07-17-2023 History of Present illness Narrative* Nidia [...] 2022 TIME: 10:40 AM * Barbara Gaxiola MRI Tech - 10/17/2022 10:40 AM EDT Radiology Service [...] 17, 2022 10:53 AM documented in this encounterCommunity Memorial Hospital06-21-2023 Evaluation note* Encounter Date Diagnosis Assessment Notes [...] the berberine and get back to patient. [employer] Other 05-31-2023 Miscellaneous Notes* Telephone Encounter - Trista Bonilla APRN.SHERITA - 08/31/2022 4:35 PM EDT Ativan sent [...] 09/05. Prescription should be sent to the [facility] in [facility]. [facility] [phone] [place] [address] documented in this encounterCommunity Memorial Hospital03-21-2023 NoteHNO ID: [id number] Author: Debbie Echeverria MD Service: ? Author Type: Physician Type: Progress Notes Filed: 06/21/2022 11:09 AM Note Text: June 21, 2022 DXN: Resected T4aN0 desmoplastic melanoma. The lesion was about 4.5mm located on her back with 2 negative SLNs (left axilla). There was no reported neurtropism and only one mitotic figure. Margins were negative. Decl[place] an adjuvant trial [place]. Baseline imaging today is negative CC: Melanoma [...] with more than 50% of the total fcot-mx-fqzb time of the visit in counseling / coordination of care. Debbie Echeverria, [facility]03-21-2023 History of Present illness Narrative* Debbie Echeverria MD - 06/21/2022 11:08 AM EDT June 21, 2022 DXN: Resected T4aN0 desmoplastic melanoma. The lesion was about 4.5mm located on her back with 2 negative SLNs (left axilla). There was no reported neurtropism and only one mitotic figure. Margins were negative. Declined an adjuvant trial in [place]. Baseline imaging today is negative CC: Melanoma [...] with more than 50% of the total muga-lw-bzmx time of the visit in counseling / coordination of care. Debbie Echeverria MD documented in this encounterCommunity Memorial Hospital03-21-2023 Nurse Note* Vanessaden Giang LPN - 06/21/2022 10:29 AM EDT Additional intake questions: Has the patient had fever, nausea, vomiting, diarrhea, constipation, fatigue for > 1 week? Yes, fatigue and Provider Notified Does the patient have a decreased appetite? No Does patient want to see a Boxing Trainer? No (yes to any of above refer patient to schedulers for dietitian appointment) ) Does patient have any new or increased numbness or tingling of extremities? No Is patient interested in fertility information? NA Does patient need any prescription refills? No Does patient have an advanced directive in place? No, Patient refused referral to Social Work or Resource Center documented in this encounterCommunity Memorial Hospital11-28-2022 NoteHNO ID: [id number] Author: Trista Bonilla APRN.SOCCER REFEREE Service: ? Author Type: Nurse Practitioner Type: Progress Notes Filed: 03/01/2022 9:23 AM Note Text: [facility] This visit is a Virtual MyChart video visit encounter which required patient-provider interaction for the medical decision making as documented below. Persons Present: patient Ben Cruz has consented to this distance health encounter. 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 She denies focal weakness, dizziness, gait instability, or seizures. Data Reviewed: MRI Report MRI BRAIN WO/W IVCON Exam End: 02/23/2022 11:31 AM (Final result) Narrative: * * *Final Report* * * DATE OF EXAM: Feb 23 2022 11:31AM [facility] 0295 - MRI BRAIN WO/W IVCON [...] unremarkable MRI brain with and without contrast. Material Engineer: TORI Transcribe Date/Time: Feb 23 2022 11:50A [...] Coughing noted :No A (more content not included)...[facility]11-28-2022 History of Present illness Narrative* Trista Bonilla APRN.SOCCER REFEREE - 02/28/2022 10:30 AM EST [facility] DISTANCE HEALTH VISIT [facility] which required patient- provider interaction for the medical decision making as documented below. Persons Present: patient Ben Cruz has consented to this distance health encounter. 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 She denies focal weakness, dizziness, gait instability, or seizures. Data Reviewed: MRI Report MRI BRAIN WO/W IVCON Exam End: 02/23/2022 11:31 AM (Final result) Narrative: * * *Final Report* * * DATE OF EXAM: Feb 23 2022 11:31AM [facility] 0295 - MRI BRAIN WO/W IVCON [...] unremarkable MRI brain with and without contrast. Material Engineer: TORI Transcribe Date/Time: Feb 23 2022 11:50A [...] on staging MRI of the brain obtained 2presenting for further evaluation in the setting of [...] She will continue to get MRI at [facility] and present in VV follow up. Trista Bonilla APRN.CNP Cc: Dr. Luis Echeverria documented in this encounterCommunity Memorial Hospital11-23-2022 NoteHNO ID: [id number] Author: Barbara Gaxiola office professional Service: Radiology Author Type: Case Packer Type: Progress Notes Filed: 02/23/2022 11:00 AM [...] Site disposition Discontinued SIGNED BY: Barbara Gaxiola office professional February 23, 2022 10:57 [facility]11-23-2022 NoteHNO ID: [id number] Author: Nidia Morelos RN Service: Nursing Author [...] Cruz DATE: February 23, 2022 TIME: 10:33 [facility]11-23-2022 History of Present illness Narrative* Nidia [...] 2022 TIME: 10:33 AM * Barbara Gaxiola, office professional - 02/23/2022 10:40 AM EST Radiology Service [...] 23, 2022 10:57 AM documented in this encounterCommunity [facility] History of Present illness Narrative* Debbie Echeverria MD - 12/21/2021 1:37 PM EDT December 21, 2021 DXN: Resected T4aN0 desmoplastic melanoma. The lesion was about 4.5mm located on her back with 2 negative SLNs (left axilla). There was no reported neurtropism and only one mitotic figure. Margins were negative. Declined an adjuvant trial in [place]. Baseline imaging today is negative CC: Melanoma [...] with more than 50% of the total nikp-rl-fjlj time of the visit in counseling / coordination of care. Debbie Echeverria MD documented in this encounterCommunity [facility]09-20-[facility]22 Nurse Note* Tiny Mckoy LPN - 12/21/2021 1:20 PM EDT Additional intake questions: Has the patient had fever, nausea, vomiting, diarrhea, constipation, fatigue for > 1 week? Yes, fatigue Does the patient have a decreased appetite? No Does patient want to see a Boxing Trainer? No (yes to any of above refer patient to schedulers for dietitian appointment) ) Does patient have any new or increased numbness or tingling of extremities? No Is patient interested in fertility information? No Does patient need any prescription refills? No Does patient have an advanced directive in place? No, Patient refused referral to Social Work or Resource Center documented in this encounterCommunity [facility]09-02-2022 Miscellaneous Notes* Telephone Encounter - Jaylene Jacobson RN - 12/03/2021 12:49 PM EDT Patient needs a follow up visit (no labs or scans) around 12/25/21. She accepted a visit on 12/21 at 1:30 pm. Jaylene Jacobson RN * Telephone Encounter - Mary Lindsay - 12/01/2021 4:45 PM EDT Ben Cruz is calling Debbie Echeverria MD today regarding Rug Shampooer - Other Patient called scheduling to schedule 6 mo follow up but was unable to get thru, so calling office for Dr. Echeverria to get it scheduled. Can she be called once appointment is made? Patient has been identified by name and birthdate. Requesting response back: [phone] (home) [phone] (cell) Mary Lindsay December 01, 2021 documented in this encounterCommunity [facility] Hospital05-23-2022 History of Present illness Narrative* Luis Licona [...] an updated MRI in 6 months in [place] followed by a virtual visit for further meningioma surveillance, with additional surveillance plan to be developed thereafter. Zhanna Le MD Radiation Oncology Resident [id number] STAFF ADDENDUM I saw and evaluated the [...] brain. Luis Licona MD cc: Debbie Echeverria [id number] [facility] [id number] documented in this encounterCommunity Memorial Hospital05-23-2022 History of Present illness Narrative* Nidia Morelos [...] 23, 2021 12:14 PM documented in this encounterCommunity [facility]03-16-2022 History of Present illness Narrative* Nazanin Moncada [...] 16, 2021 TIME: 10:22 AM * Barbara Gaxiola MRI Tech - 06/16/2021 10:00 AM EDT Radiology Service [...] 16, 2021 10:35 AM documented in this encounterCommunity [facility] Hospital03-01-2022 History of Present illness Narrative* Barbara Gaxiola [...] 2021 TIME: 11:13 AM [facility] No data available for this section General Surgery [place] Evaluation note* Diagnosis 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 documented in this encounter [facility] note* Diagnosis 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 documented in this encounter [facility] note* Diagnosis Benign neoplasm of meninges (HCC)- Primary Benign neoplasm of cerebral meninges documented in this encounter [facility] note* Diagnosis 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) documented in this encounter [facility] noteNo [facility] Other Evaluation note* Diagnosis Meningioma (HCC)- Primary Benign neoplasm of cerebral meninges documented in this encounter [facility] note* Diagnosis Meningioma (HCC)- Primary Benign neoplasm of cerebral meninges documented in this encounter [facility] note* Diagnosis Benign neoplasm of meninges (HCC)- Primary Benign neoplasm of cerebral meninges documented in this encounter [facility] note* Diagnosis Benign neoplasm of meninges (HCC)- Primary Benign neoplasm of cerebral meninges documented in this encounter [facility] note* Diagnosis Benign neoplasm of meninges (HCC)- Primary Benign neoplasm of cerebral meninges documented in this encounter [facility] note* Diagnosis Benign neoplasm of meninges (HCC)- Primary Benign neoplasm of cerebral meninges documented in this encounter [facility] note* Diagnosis 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 documented in this encounter [facility] note* Diagnosis 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 documented in this encounter [facility] note* Diagnosis 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 documented in this encounter [facility] note* Diagnosis 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 general Narrative - Reported* Type Description Date Medical History melanoma Surgical History laminectomy Surgical History c-sectionx 2 Surgical History hysterectomy Surgical History lump removed right wrist Surgical History melanoma removal [facility] Other History general Narrative - ReportedNort [employer] Other [employer] general Narrative - Reported* Type Description Date Medical History melanoma Surgical History laminectomy Surgical History c-sectionx 2 Surgical History hysterectomy Surgical History lump removed right wrist Surgical History melanoma removal Surgical History Colonoscopy 03/2023 [facility] Other Hospital Discharge instructions No data available for this section General Surgery [facility] note No data available for this section General Surgery [place] Reason for Referral Specialty Diagnoses / Procedures Referred By Selene lloyd Referred To Contact MR IMAGING Diagnoses Benign neoplasm of meninges (HCC) Procedures MRI BRAIN WO/W IVCON MRI BRAIN BRAIN STEM W/O W/[place] [address] [place] [address] Mr Imaging Referral ID Status Reason Start Date Expiration Date Visits Requested Visits Authorized [id number] Pending Review Auto-Generat ed Referral 08/23/2021 09/22/2022 1 1 Specialty Diagnoses / Procedures Referred By Selene lloyd Referred To Contact MR IMAGING Diagnoses Benign neoplasm of meninges (HCC) Procedures MRI BRAIN WO/W IVCON MRI BRAIN BRAIN STEM W/O W/CONTRAST MATERIAL Trista Bonilla APRN.SOCCER REFEREE [address] [place] [address] Mr Imaging Referral ID Status Reason Start Date Expiration Date Visits Requested Visits Authorized [id number] Pending Review Auto-Generat ed Referral 08/29/2022 03/31/2023 1 1 Reason *FU 11/15 screenin g colonoscopy Diagnosis 1 Screen for colon can cer (Z12.11) Referral Organization [facility] Medical [facility] elias Referring Provider First Name Lissett Referring Provider Last Name Gary Referring Provider Specialty Family [facility] cine Referred Organization [facility] Referred Provider Tucker Ann Referred Address [address] [place], [place],[address] Referred Provider Specialty General Surg katelyn Referral Priority Routine General Notes Louise Livingston 10:47:05 AM >received today, attachments made, notes locked, referral faxed Clinical Notes F: [phone] Specialty Diagnoses / Procedures Referred By Contac t Referred To Contact MR IMAGING Diagnoses Benign neoplasm of meninges (HCC) Procedures MRI BRAIN LOCALIZATION W IVCON UNLISTED MAGNETIC RESONANCE PROCED Gurpreet Beckwith DO, PhD [address] [facility] [address] [place] [address] [place] [address] Referral ID Status Reason Start Date Expiration Date V isits Requested Visits Authorized [id number] Closed Auto-Generate d Referral 12/06/2022 1 1 Specialty Diagnoses / Procedures Referred By Contac t Referred To Contact MR IMAGING Diagnoses Benign neoplasm of meninges (HCC) Procedures MRI BRAIN WO/W IVCON MRI BRAIN BRAIN STEM W/O W/[place] [address] [place] [address] [place] [address] Referral ID Status Reason Start Date Expiration Date V isits Requested Visits Authorized [id number] Closed Auto-Generate d Referral 06/21/2021 09/18/2021 1 1 Specialty Diagnoses / Procedures Referred By Contac t Referred To Contact MR IMAGING Diagnoses 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) Liver lesion Procedures MRI LIVER WO/W IVCON MRI ABDOMEN W/O & W/[place] [address] [place] [address] [place] [address] Referral ID Status Reason Start Date Expiration Date V isits Requested Visits Authorized [id number] Closed Auto-Generate d Referral 05/20/2021 07/11/2021 1 1 Specialty Diagnoses / Procedures Referred By Contac t Referred To Contact MR IMAGING Diagnoses Benign neoplasm of meninges (HCC) Procedures MRI BRAIN WO/W IVCON MRI BRAIN BRAIN STEM W/O W/CONTRAST MATERIAL Trista Bonilla APRN.SOCCER REFEREE [address] [place] [address] [place] [address] Referral ID Status Reason Start Date Expiration Date V isits Requested Visits Authorized [id number] Closed Auto-Generate d Referral 08/29/2022 03/31/2023 1 1 Referral ID Status Reason Start Date Expiration Date V isits Requested Visits Authorized [id number] Closed Auto-Generate d Referral 08/23/2021 03/20/2022 1 [...] or prosecute any alcohol or drug abuse patient.[facility] HospitalIn the event this information is protected by the Federal Confidentiality of Alcohol and Drug Abuse Patient Records regulations: The Federal rules restrict any use of the information to criminally investigate or prosecute any alcohol or drug abuse patient.[facility] HospitalIn the event this information is protected by the Federal Confidentiality of Alcohol and Drug Abuse Patient Records regulations: The Federal rules restrict any use of the information to criminally investigate or prosecute any alcohol or drug abuse patient.[facility] HospitalIn the event this information is protected by the Federal Confidentiality of Alcohol and Drug Abuse Patient Records regulations: The Federal rules restrict any use of the information to criminally investigate or prosecute any alcohol or drug abuse patient.[facility] HospitalIn the event this information is protected by the Federal Confidentiality of Alcohol and Drug Abuse Patient Records regulations: The Federal rules restrict any use of the information to criminally investigate or prosecute any alcohol or drug abuse patient.[facility] HospitalIn the event this information is protected by the Federal Confidentiality of Alcohol and Drug Abuse Patient Records regulations: The Federal rules restrict any use of the information to criminally investigate or prosecute any alcohol or drug abuse patient.[facility] HospitalIn the event this information is protected by the Federal Confidentiality of Alcohol and Drug Abuse Patient Records regulations: The Federal rules restrict any use of the information to criminally investigate or prosecute any alcohol or drug abuse patient.[facility] HospitalIn the event this information is protected by the Federal Confidentiality of Alcohol and Drug Abuse Patient Records regulations: The Federal rules restrict any use of the information to criminally investigate or prosecute any alcohol or drug abuse patient.[facility] HospitalIn the event this information is protected by the Federal Confidentiality of Alcohol and Drug Abuse Patient Records regulations: The Federal rules restrict any use of the information to criminally investigate or prosecute any alcohol or drug abuse patient.[facility] HospitalIn the event this information is protected by the Federal Confidentiality of Alcohol and Drug Abuse Patient Records regulations: The Federal rules restrict any use of the information to criminally investigate or prosecute any alcohol or drug abuse patient.[facility] HospitalIn the event this information is protected by the Federal Confidentiality of Alcohol and Drug Abuse Patient Records regulations: The Federal rules restrict any use of the information to criminally investigate or prosecute any alcohol or drug abuse patient.[facility] HospitalIn the event this information is protected by the Federal Confidentiality of Alcohol and Drug Abuse Patient Records regulations: The Federal rules restrict any use of the information to criminally investigate or prosecute any alcohol or drug abuse patient.[facility] HospitalIn the event this information is protected by the Federal Confidentiality of Alcohol and Drug Abuse Patient Records regulations: The Federal rules restrict any use of the information to criminally investigate or prosecute any alcohol or drug abuse patient.[facility] HospitalIn the event this information is protected by the Federal Confidentiality of Alcohol and Drug Abuse Patient Records regulations: The Federal rules restrict any use of the information to criminally investigate or prosecute any alcohol or drug abuse patient.[facility] HospitalIn the event this information is protected by the Federal Confidentiality of Alcohol and Drug Abuse Patient Records regulations: The Federal rules restrict any use of the information to criminally investigate or prosecute any alcohol or drug abuse patient.[facility] HospitalIn the event this information is protected by the Federal Confidentiality of Alcohol and Drug Abuse Patient Records regulations: The Federal rules restrict any use of the information to criminally investigate or prosecute any alcohol or drug abuse patient.[facility] HospitalIn the event this information is protected by the Federal Confidentiality of Alcohol and Drug Abuse Patient Records regulations: The Federal rules restrict any use of the information to criminally investigate or prosecute any alcohol or drug abuse patient.[facility] HospitalIn the event this information is protected by the Federal Confidentiality of Alcohol and Drug Abuse Patient Records regulations: The Federal rules restrict any use of the information to criminally investigate or prosecute any alcohol or drug abuse patient.[facility] HospitalIn the event this information is protected by the Federal Confidentiality of Alcohol and Drug Abuse Patient Records regulations: The Federal rules restrict any use of the information to criminally investigate or prosecute any alcohol or drug abuse patient.[facility] HospitalIn the event this information is protected by the Federal Confidentiality of Alcohol and Drug Abuse Patient Records regulations: The Federal rules restrict any use of the information to criminally investigate or prosecute any alcohol or drug abuse patient.[facility] HospitalIn the event this information is protected by the Federal Confidentiality of Alcohol and Drug Abuse Patient Records regulations: The Federal rules restrict any use of the information to criminally investigate or prosecute any alcohol or drug abuse patient.[facility] HospitalIn the event this information is protected by the Federal Confidentiality of Alcohol and Drug Abuse Patient Records regulations: The Federal rules restrict any use of the information to criminally investigate or prosecute any alcohol or drug abuse patient.[facility] HospitalIn the event this information is protected by the Federal Confidentiality of Alcohol and Drug Abuse Patient Records regulations: The Federal rules restrict any use of the information to criminally investigate or prosecute any alcohol or drug abuse patient.[facility] HospitalIn the event this information is protected by the Federal Confidentiality of Alcohol and Drug Abuse Patient Records regulations: The Federal rules restrict any use of the information to criminally investigate or prosecute any alcohol or drug abuse patient.[facility] HospitalIn the event this information is protected by the Federal Confidentiality of Alcohol and Drug Abuse Patient Records regulations: The Federal rules restrict any use of the information to criminally investigate or prosecute any alcohol or drug abuse patient.[facility] HospitalIn the event this information is protected by the Federal Confidentiality of Alcohol and Drug Abuse Patient Records regulations: The Federal rules restrict any use of the information to criminally investigate or prosecute any alcohol or drug abuse patient.[facility] Reason for Visit (unrecogniz ed section and content) Reason Comments Radiology MRI Specialty Diagnoses / Procedures Referred By Contac t Referred To Contact ADMITTING Diagnoses Benign neoplasm of meninges (HCC) Procedures RADIATION DELIVERY STEREOTACTIC CRANIAL COBALT STEREOTACTIC RADIOSURGERY 1 COMPLEX CRANIAL LES RADIATION [place] STEREOTACTIC RADIOSURGERY (SRS) [place] CRANIAL LESION(S) 1 SESSION MULTI-SOURCE COBALT STEREOTACTIC RADIOSURGERY 1 COMPLEX CRANIAL LESION [facility] [address] [place] [id number] Referral ID Status Reason Start Date Expiration Date Visits Re quested Visits Authorized [id number] [address] Specialty Diagnoses / 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 Referred To Contact MR IMAGING Diagnoses 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) New daily persistent headache Other headache syndrome Procedures MRI BRAIN WO/W IVCON MRI BRAIN BRAIN STEM W/O W/CONTRAST MATERIAL Debbie Echeverria MD [address] [place], [place] [id number] Mr Imaging [place] [address] Referral ID Status Reason Start Date Expiration Date V isits Requested Visits Authorized [id number] Closed Auto-Generate d Referral 04/29/2021 06/13/2021 1 1 Specialty Diagnoses / Procedures Referred By Contac t Referred To Contact MR IMAGING Diagnoses Benign neoplasm of meninges (HCC) Procedures MRI BRAIN WO/W IVCON MRI BRAIN BRAIN STEM W/O W/CONTRAST MATERIAL Luis Licona MD [address] [place] [address] Mr Imaging [place] [address] Referral ID Status Reason Start Date Expiration Date V isits Requested Visits Authorized [id number] Closed Auto-Generate d Referral 06/21/2021 09/18/2021 1 1 Specialty Diagnoses / Procedures Referred By Contac t Referred To Contact MR IMAGING Diagnoses 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) Liver lesion Procedures MRI LIVER WO/W IVCON MRI ABDOMEN W/O & W/CONTRAST MATERIAL Debbie Echeverria MD [address] [place], [place] [id number] Mr Imaging [place] [address] Referral ID Status Reason Start Date Expiration Date V isits Requested Visits Authorized [id number] Closed Auto-Generate d Referral 05/20/2021 07/11/2021 1 1 Specialty Diagnoses / Procedures Referred By Contac t Referred To Contact MR IMAGING Diagnoses Benign neoplasm of meninges (HCC) Procedures MRI BRAIN WO/W IVCON MRI BRAIN BRAIN STEM W/O W/CONTRAST MATERIAL Trista Bonilla APRN.CNP [id number] [place], [place] [id number] Mr Imaging [place] [address] Referral ID Status Reason Start Date Expiration Date V isits Requested Visits Authorized [id number] Closed Auto-Generate d Referral 08/29/2022 03/31/2023 1 1 Referral ID Status Reason Start Date Expiration Date V isits Requested Visits Authorized [id number] Closed Auto-Generate d Referral 08/23/2021 03/20/2022 1 1 Reason Comments Gamma Knife Follow-up INFORMATION SOURCE (unrecogn ized section and content) DATE CREATED AUTHOR 06/10/2022 [facility] DATE CREATED AUTHOR AUTHOR'S ORGANIZ ATION 09/15/2022 [facility] DATE CREATED AUTHOR AUTHOR'S ORGANIZ ATION 02/04/2023 [facility] DATE CREATED AUTHOR AUTHOR'S ORGANIZ ATION 02/08/2023 [facility] DATE CREATED AUTHOR AUTHOR'S ORGANIZ ATION 03/30/2023 [facility] Care Teams (unrecognized sec tion and content) Business Unit Leader Relationship Specialty Start Date End Date Lissett Vega MD [address] [facility] [place] [address] PCP - General Family Medicine 01/17/23 Business Unit Leader Relationship Specialty Start Date End Date Lissett Vega MD [address] [facility] [place] [address] PCP - General Family Medicine 01/17/23 Business Unit Leader Relationship Specialty Start Date End Date Lissett Vega MD [address] [facility] [place] [address] PCP - General Family Medicine 01/17/23 Business Unit Leader Relationship Specialty Start Date End Date Lissett Vega MD [address] [facility] [place] [address] PCP - General Family Medicine 01/17/23 Business Unit Leader Relationship Specialty Start Date End Date Lissett Vega MD [address] [facility] [place] [address] PCP - General Family Medicine 01/17/23 Business Unit Leader Relationship Specialty Start Date End Date Lissett Vega MD [address] [place] [phone] PCP - General Family Medicine 01/17/23 FOR [...] BE BASED ON THE PRIMARY CLINICAL RECORDS. [facility] [employer] [facility]. provides no warranty or guarantee of the accuracy or completeness of information in this document.
== END 2023-04-02 10:51 | disposition home or self-care (01) ==
PROVIDERS: Emergency Provider Emergency Medicine; PCP Family Medicine
DX: G89.18 Other acute postprocedural pain (principal); Z86.16 Personal history of COVID-19; K21.9 Gastro-esophageal reflux disease without esophagitis; E78.5 Hyperlipidemia, unspecified; Z90.710 Acquired absence of both cervix and uterus; Z85.820 Personal history of malignant melanoma of skin; Z87.891 Personal history of nicotine dependence
CPT/HCPCS: 99281

== ENCOUNTER 2023-04-20 13:08 | Outpatient (OUT) | payer OTHER, SELFPAY ==
--- NOTE | 2023-04-20 | XR_ITS ---
[facility] [place] [id number] Patient Name: BEN TABOR MRN: [id number] date: 1975 Sex: F Assigned Patient Location: [facility] Current Patient Location: [facility] Accession/Order Number: [id number] Exam Date: 04/20/2023 13:12 Report Date: 04/20/2023 14:04 At the request of: JANE SALAZAR Procedure: XR foot LT min 3V PROCEDURE: XR foot LT min 3V COMPARISON: 03/22/2023 HISTORY: LEFT FOOT PAIN FINDINGS: BONES:Stable remote osteotomy lateral head of the fifth metatarsal. Remote resection head of the fifth proximal phalanx. Stable osteotomy posterior calcaneus transfixed with 2 cannulated screws. No acute fracture or dislocation. SOFT TISSUES:Negative. No visible soft tissue swelling. EFFUSION:None visible. OTHER: Negative. XR/XR foot LT min 3V IMPRESSION: Stable postsurgical changes Electronically authenticated by: ZHANNA DELONG Date: 04/20/2023 14:04
--- OUTSIDE RECORDS SUMMARY | 2023-04-20 13:13 | XMS_ITS | CCD ---
Author Name Unknown Address [address] [place] [address] Organization [facility] Care Team Providers Care Maintenance Supervisor 2Nd Shift Name Role Phone Unavailable Primary Care Provider Jacqueline VEGA, DR LISSETT Fung Admitting Unavailable VEGA, DR LISSETT Fung Attending Unavailable VEGA, DR LISSETT Fung Primary Care Unavailable [facility] [place] Consulting Unavailable VEGA, DR LISSETT [...] or physicia Propensity to adverse reactions Comment:Done Knip Other (4 sources) Allergies Reconciled Propensity to adverse reactions Unknown Knip Other (1 source) No Known Medication Allergies; Translations: [No Known Medication Allergies] Propensity to adverse reactions (disorder) [facility] Repository Medications Current Medications Medication Drug [...] Range Facility Outside Colonoscopyon 2022 Outside Colonoscopy [id number] 20 [id number] 0TIFF [facility] Reminderson 03-09-2023 Reminders - From: Veronica Jack LPN To: N - Clinical; Sent: 03/09/2023 13:42:54 EST Show up: 02/06/2033 07:00:00 EST Subject: colonoscopy recall Due Date/Time: 03/08/2033 07:00:00 EST Reminder/Recall Patient due for screening colonoscopy 03/08/2033. [facility] Consent for Procedure/Surger yon 02-21-2023 Consent for Procedure/Surgery [id number]. 00TIFF [facility] Facesheeton 02-20-2023 Facesheet [id number]. 00TIFF [facility] Ambulatory Visit Summaryon 1 04-19-2022 Ambulatory [...] you for choosing us for your care. [facility] BEN CRUZ ([id number]) 1975 F Date Time Provider Department 02/07/23 JOHANN HENRIQUEZ [facility] During your visit today, we [...] Encounter Status:Closed by JOHANN HENRIQUEZ on 02/07/23 [facility] 02-06-2023 [facility] Telephone ([facility]) BEN CRUZ ([id number]) 1975 F Date Time Provider Department 02/06/23 JOHANN HENRIQUEZ [facility] During your visit today, we recorded the following information about you: Johann Henriquez RN 02/06/2023 1:20 PM Signed Calling Ben for post-GKRS follow-up. Unable to reach at this time. Left voicemail. Johann Henriquez RN 02/07/2023 1:19 PM Signed 2nd attempt to reach out, patient unavailable. Will send [facility] Mobile message with contact information to call if [...] Encounter Status:Closed by JOHANN HENRIQUEZ on 02/07/23 [facility] Enrike 01-27-2023 CNOP Operative Note (Enc) (NSCAMN) Encounter Status:Closed by GURPREET BECKWITH on 01/27/23 [facility] Operative Note (Enc) (NSCAMN) Encounter Status:Closed by GURPREET BECKWITH on 01/27/23 Normal [facility] CNOVon 01-27-2023 CNOV Office Visit (NSCAMN ) SYMONEPETERBEN Arianna ([id number]) 1975 F Date Time Provider Department 01/27/23 [...] 7.1 AL (more content not included)... Normal [facility] CNOV Office Visit (NOGKCA ) BEN CRUZ ([id number]) 1975 F Date Time Provider Department 01/27/23 [...] Patient's Age: 47 Menstruation Status: Hysterectomy 2019 [facility] Results: N/A test not performed QC: Yes, [...] Segura Kaitlin, RN 01/27/2023 8:35 AM Addendum [facility] Gamma Knife Center Discharge Instructions As [...] a physician or hospital other than the [facility] with any problem related to the [...] may your physician, Dr. Virgil Beckwith at [phone] Monday through Monday 8:00 am to 5:00 pm, or call the Gamma Knife nurse Monday through Monday 8:00 am to 4:00 pm at [phone]. In the evening or on weekends, call [phone] or toll-free [phone] and ask the phototypesetter operator to page your neurosurgeon's resident incident response analyst. Referring Provider: GURPREET BECKWITH [[id number]] Allergies As [...] [D32.9] 01/27/2023 Other instructions from your clinician: [facility]ife [facility] Discharge Instructions As with any surgery there are risks and potential side effects. Th (more content not included)... Normal [facility] CT BRAIN WO IVCONon 01-28-[address] [...] were required COMPARISON: Concurrent brain MRI RESULT: Dental Equipment Repairer (topogram) images: No additional findings. Post-operative [...] OF EXTRA-AXIAL ENHANCING TISSUE SEEN ON MRI Whiskey Regauger: TORI Transcribe Date/Time: Jan 27 2023 8:21A Dictated by : ESTUARDO WHALEY MD This examination was interpreted and the report reviewed and electronically signed by: ESTUARDO WHALEY MD on Jan 27 2023 8:23AM EST [id number] Normal [facility] MRI BRAIN LOCAL W IVCONon MRI [...] FRONTAL LOBE, UNCHANGED GOING BACK TO 06/01/2021 Whiskey Regauger: TORI Transcribe Date/Time: Jan 27 2023 8:08A Dictated by : ESTUARDO WHALEY MD This examination was interpreted and the report reviewed and electronically signed by: ESTUARDO WHALEY MD on Jan 27 2023 8:20AM EST [id number] Normal [facility] MRI BRAIN LOCALIZATION W IVC ONon 01-27-2023 [facility] Physician Referralon 023 Physician Referral [id number] [facility] Physician Referralon 023 Physician Referral [id number] [facility] CNOVSPon 12-22-2022 CNOVSP Visit (SP) Office (HEMCA3) BEN CRUZ ([id number]) 1975 F Date Time Provider Department 12/22/22 [...] were negative. Declined an adjuvant trial in minerva. Baseline imaging today is negative CC: Melanoma [...] No Does patient want to see a Unionmelt Operator? No (yes to any of above [...] for Encounter Date Provider Department Center 12/22/2022 [id number] ECHEVERRIA [facility] [place] [facility] Prescriptions as of 12/23/2022 - meloxicam (MOBIC) 15 mg tablet - inclisiran (LEQVIO) 284 mg/1.5 mL injection - omeprazole (PRILOSEC) 20 mg capsule Take 20 mg by mouth once daily. Problem List As Of Date: 12/22/2022 (None) Visit Notes: >> Ava Urbina LPN [facility] Dec 22, 2022 10:14 AM Status: Signed Additional intake questions: Has the patient had fever, nausea, vomiting, diarrhea, constipation, fatigue for > 1 week? No Does the patient have a decreased appetite? No Does patient want to see a Unionmelt Operator? No (yes to any of above refer patient to schedulers for dietitian appointment) ) Does patient have any new or increased numbness or tingling of extremities? No Is patient interested in fertility information? No Does patient need any prescription refills? No Does patient have an advanced directive in place? No, Patient refused referral to Social Work or Resource Center [facility] BEN CRU[facility] ([id number]) 1975 F Date Time Provider Department 11/15/22 BETZY HEARD [facility] During your visit today, we recorded the following information about you: Betzy Heard RN 11/15/2022 2:04 PM Signed Calling Ben to follow up on ICS Mobile message about scheduling gamma knife for 01/27/2023 No answer, left message stating that I'll go ahead and place the GK orders. Reminded to disregard ANY appointment times she sees in [facility] Mobile, any automated text reminders or automated phone calls for 01/27/23 She will receive a call from the GK nurse or radiation therapist the day before with her arrival time. If she has any questions, I left office phone # for call back or she can send a [facility]CS Mobile message. I will send out a GK folder with additional information related to Mask Based Gamma Knife Radiosurgery Betzy Heard RN, BSN Sales Account Executive [facility] Allergies As of Date: 11/15/2022 (No Known Allergies) Date Reviewed: 10/19/2022 Reviewed by: Trista Bonilla APRN.FORESTRY ADVISER - Fully Assessed Reason for Visit: 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 [3602] Cmt: Schedule gamma knife 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 Prescriptions as of 11/15/2022 - meloxicam (MOBIC) 15 mg tablet - inclisiran (LEQVIO) 284 mg/1.5 mL injection - omeprazole (PRILOSEC) 20 mg capsule Take 20 mg by mouth once daily. Problem List As Of Date: 11/15/2022 (None) Encounter Status:Closed by BETZY HEARD on 11/15/22 [facility] 10-20-2022 [facility] Telephone (NSCAMN) BEN CRUZ ([id number]) 1975 F Date Time Provider Department 10/20/22 BETZY HEARD [facility] During your visit today, we recorded the following information about you: Betzy Heard RN 10/20/2022 11:56 AM Signed Time Frame: As soon as can be scheduled - can be virtual or in clinic Orders: n/a Provider: Tang Referring: Pelon Diagnosis: meningioma Allergies As of Date: 10/20/2022 (No Known Allergies) Date Reviewed: 10/19/2022 Reviewed by: Trista Bonilla [facility] - Fully Assessed Reason for Visit: GIN - new pt consult with Dr. Beckwith [Other] Prescriptions as of 11/10/2022 - meloxicam (MOBIC) 15 mg tablet - inclisiran (LEQVIO) 284 mg/1.5 mL injection - omeprazole (PRILOSEC) 20 mg capsule Take 20 mg by mouth once daily. Problem List As Of Date: 10/20/2022 (None) Encounter Status:Closed by BETZY HEARD on 11/10/22 [facility] MRI BRAIN WO/W IVCONon 10-17 MRI BRAIN WO/W IVCON * * *Final Report* * * DATE OF EXAM: Oct 17 2022 11:20AM [employer] [facility] - MRI BRAIN WO/W IVCON / [...] with air-fluid level suggestive of acute/active sinusitis. Whiskey Regauger: [facility] Transcribe Date/Time: Oct 17 2022 11:35A Dictated by : CHUCKY BRAY MD This examination was interpreted and the report reviewed and electronically signed by: CHUCKY BRAY MD on Oct 17 2022 11:45AM EST [id number] Normal [facility] Complete Blood Count Auto Di ffon 09-12-2022 Basophils (Bld) [#/Vol] 0.1 10*3/uL Normal 0.0-0.2 [facility] Comment on above: Result Comment: PERF ORMED BY: [facility] [address] [place] [address] PATHOLOGIST ORDER FILLER ARNULFO STYLES M.D. Performed By: #### C BC #### [facility] [address] [place] [address] [place] Basophils/100 WBC (Bld) 0.7 % Normal . [facility] Comment on above: Performed By: #### C BC #### [facility] [address] [place] [address] [place] Eosinophils (Bld) [#/Vol] 0.2 10*3/uL Normal 0.0-0.45 [facility] Comment on above: Performed By: #### C BC #### [place] [address] [place] Eosinophils/100 WBC (Bld) 2.7 % Normal . [facility] Comment on above: Performed By: #### C BC #### [address] Erythrocyte distribution width (RBC) [Ratio] 12.9 % Normal 11.9-15.3 [facility] Comment on above: Performed By: #### C BC #### [address] Hematocrit (Bld) [Volume fraction] 41.8 % Normal 34.0-46.4 [facility] Comment on above: Performed By: #### C BC #### [address] Hemoglobin (Bld) [Mass/Vol] 14.3 g/dL Normal 11.8-15.4 [facility] Comment on above: Performed By: #### C BC #### [facility] [address] [place] [address] [place] Lymphocytes (Bld) [#/Vol] 2.0 10*3/uL Normal 1.00-4.8 [facility] Comment on above: Performed By: #### C BC #### [address] Lymphocytes/100 WBC (Bld) 25.3 % Normal . [facility] Comment on above: Performed By: #### C BC #### [facility] [address] MCH (RBC) [Entitic mass] 29.8 pg Normal 24.7-34.3 [facility] Comment on above: Performed By: #### C BC #### [address] MCV (RBC) [Entitic vol] 87.2 fL Normal 80-100 [facility] Comment on above: Performed By: #### C BC #### [address] Mean Corpuscular HGB Conc 34.2 g/dL Normal 32.0-35.0 [facility] Comment on above: Performed By: #### C BC #### [address] Monocytes (Bld) [#/Vol] 0.7 10*3/uL Normal 0.0-0.8 [facility] Comment on above: Performed By: #### C BC #### [address] Monocytes/100 WBC (Bld) 9.1 % Normal . [facility] Comment on above: Performed By: #### C BC #### [address] Neutrophils (Bld) [#/Vol] 4.8 10*3/uL Normal 1.8-7.7 [facility] Comment on above: Performed By: #### C BC #### [address] Neutrophils/100 WBC (Bld) 62.2 % Normal . [facility] Comment on above: Performed By: #### C BC #### [place] [address] [place] NRBC% 0.4 /100{WBC} Normal 0-0.5 [facility] Comment on above: Performed By: #### C BC #### [address] Platelet mean volume (Bld) [Entitic vol] 7.5 fL Normal 6.3-10.7 [facility] Comment on above: Performed By: #### C BC #### [facility] [address] Platelets (Bld) [#/Vol] 225 10*3/uL Normal 150-450 [facility] Comment on above: Performed By: #### C BC #### [address] RBC (Bld) [#/Vol] 4.80 10*6/uL Normal 3.60-5.00 [facility] Comment on above: Performed By: #### C BC #### [address] WBC (Bld) [#/Vol] 7.7 10*3/uL Normal 3.8-11.6 [facility] Comment on above: Performed By: #### C BC #### [address] XR chest 2V*on 09-12-2022 XR chest 2V* [facility] [place] [address] [place] [address] XRay Report Signed Patient: Ben Cruz MR#: [id number] 3 : 1975 Acct:[id number] Age/Sex: 47 / F ADM Date: 09/12/22 Loc: [place] Room: Type: [facility] Attending Dr: Taz Rossi DPM Copies [...] Florentino Woods M.D.09/12/2022 4:53 PM Dictation Location: [place] [address] Transcribed By: LINDA 09/12/221652 Dictated By: Florentino Woods II, MD 09/12/221651 Signed By: 09/12/221652 [facility] Louise 08-31-2022 [place] Telephone (RADRMN) BEN CRUZ ([id number]) 1975 F Date Time Provider Department 08/31/22 LUIS LICONA During your visit today, we recorded the following information about you: Adriana Brown 08/31/2022 4:12 PM Signed Patient called in to ask for a prescription of Atavan sent to her local [facility] prior to her scheduled MRI on 09/05. Prescription should be sent to the [facility] in [facility]. [facility] [phone] [place] [address] Trista Bonilla APRN.FORESTRY ADVISER 08/31/2022 4:35 PM Signed Ativan sent to preferred pharmacy per patient request prior to MRI. PDMP website checked and validated. All prescriptions have been APPROPRIATELY filled. No suspicious activity was identified. 08/31/2022 by Trista Bonilla APRN.FORESTRY ADVISER Allergies As of Date: 08/31/2022 (No Known Allergies) Date Reviewed: 08/31/2022 Reviewed by: Trista Bonilla APRN.FORESTRY ADVISER - Fully Assessed Reason for Visit: 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 [[id number]] Visit Diagnosis:Malignant melanoma of torso excluding breast [...] Encounter Status:Closed by TRISTA BONILLA on 08/31/22 [facility] CNOVSPon 06-21-2022 CNOVSP Visit (SP) Office (HEMCA3) BEN CRUZ ([id number]) 1975 F Date Time Provider Department 06/21/22 [...] No Does patient want to see a Unionmelt Operator? No (yes to any of above [...] were negative. Declined an adjuvant trial in minerva. Baseline imaging today is negative CC: Melanoma [...] with more than 50% of the total zgtb-vw-lpoo time of the visit in counseling / coordination of care. Debbie Echeverria MD Referring Provider: DEBBIE ECHEVERRIA [[id number]] Allergies As of Date: 06/21/2022 (No Known [...] for Encounter Date Provider Department Center 06/21/2022 [id number] ECHEVERRIA [facility]EM[facility]3 [place] [facility] Prescriptions as of 06/21/2022 - meloxicam (MOBIC) 15 mg tablet - inclisiran (LEQVIO) 284 mg/1.5 mL injection - omeprazole (PRILOSEC) 20 mg capsule Take 20 mg by mouth once daily. Problem List As Of Date: 06/21/2022 (None) Visit Notes: >> Vanessa Giang LPN [facility] Jun 21, 2022 10:29 AM Status: Signed Additional intake questions: Has the patient had fever, nausea, vomiting, diarrhea, constipation, fatigue for > 1 week? Yes, fatigue and Provider Notified Does the patient have a decreased appetite? No Does patient want to see a Unionmelt Operator? No (yes to any of above [...] Encounter Status:Closed by DEBBIE ECHEVERRIA on 06/21/22 [facility] MRI BRAIN WO/W IVCONon 02-23 MRI BRAIN WO/W IVCON * * *Final Report* * * DATE OF EXAM: Feb 23 2022 11:31AM [employer] [facility] - MRI BRAIN WO/W IVCON / [...] unremarkable MRI brain with and without contrast. Whiskey Regauger: TORI Transcribe Date/Time: Feb 23 2022 11:50A Dictated by : CARLITOS MCGUIRE MD This examination was interpreted and the report reviewed and electronically signed by: CARLITOS MCGUIRE MD on Feb 23 2022 11:55AM EST [id number] Normal [facility] CBC AUTO DIFFon 11-18-2021 BASO # 0.0 103/ul Normal 0.0-0.1 [facility] Comment on above: Performed By: #### H FPFCBC #### [facility] [address] [place] [address] Dr. Arcenio Billy Basophils/100 WBC (Bld) 0.4 % Normal 0.2-2.0 [facility] Comment on above: Performed By: #### H FPFCBC #### [facility] [address] [place] [address] Dr. Arcenio Billy EO # 0.2 103/ul Normal 0.0-0.7 [facility] Comment on above: Performed By: #### H FPFCBC #### [facility] [address] [place] [address] Dr. Arcenio Billy Eosinophils/100 WBC (Bld) 3.0 % Normal 0.9-7.0 [facility] Comment on above: Performed By: #### H FPFCBC #### [facility] [address] [place] [address] Dr. Arcenio Billy Erythrocyte distribution width (RBC) [Ratio] 12.1 % Normal 11.0-15.0 [facility] Comment on above: Performed By: #### H FPFCBC #### [facility] [address] [place] [address] Dr. Arcenio Billy Hematocrit (Bld) [Volume fraction] 43.1 % Normal 36.0-48.0 [facility] Comment on above: Performed By: #### H FPFCBC #### [facility] [address] [place] [address] Dr. Arcenio Billy Hemoglobin (Bld) [Mass/Vol] 14.1 g/dL Normal 12.0-16.0 [facility] Comment on above: Performed By: #### H FPFCBC #### [facility] [address] [place] [address] Dr. Arcenio Billy IG # 0.01 10e3/ul Normal 0.00-0.03 [facility] Comment on above: Performed By: #### H FPFCBC #### [facility] [address] [place] [address] Dr. Arcenio Billy IG % 0.2 % Normal 0.0-0.5 [facility] Comment on above: Performed By: #### H FPFCBC #### [facility] [address] [place] [address] Dr. Arcenio Billy LYMPH # 1.9 103/ul Normal 1.2-3.8 [facility] Comment on above: Performed By: #### H FPFCBC #### [facility] [address] [place] [address] Dr. Arcenio Billy Lymphocytes/100 WBC (Bld) 35.7 % Normal 20.5-60.0 [facility] Comment on above: Performed By: #### H FPFCBC #### [facility] [address] [place] [address] Dr. Arcenio Billy MCH (RBC) [Entitic mass] 28.8 pg Normal 26.7-34.0 [facility] Comment on above: Performed By: #### H FPFCBC #### [facility] [address] [place] [address] Dr. Arcenio Billy MCHC (RBC) [Mass/Vol] 32.7 g/dL Normal 29.9-35.2 [facility] Comment on above: Performed By: #### H FPFCBC #### [facility] [address] [place] [address] Dr. Arcenio Billy MCV (RBC) [Entitic vol] 88.1 fL Normal 81.0-99.0 [facility] Comment on above: Performed By: #### H FPFCBC #### [facility] [address] [place] [address] Dr. Arcenio Billy MONO # 0.5 103/ul Normal 0.3-0.8 [facility] Comment on above: Performed By: #### H FPFCBC #### [facility] [address] [place] [address] [address] Arcenio Billy Monocytes/100 WBC (Bld) 9.9 % Normal 1.7-12.0 [facility] Comment on above: Performed By: #### H FPFCBC #### [facility] [address] [place] [address] Dr. Arcenio Billy NEUT # 2.7 103/ul Normal 1.4-6.5 [facility] Comment on above: Performed By: #### H FPFCBC #### [facility] [address] [place] [address] Dr. Arcenio Billy Neutrophils/100 WBC (Bld) 50.8 % Normal 43.0-75.0 [facility] Comment on above: Performed By: #### H FPFCBC #### [facility] [address] [place] [address] Dr. Arcenio Billy Platelet mean volume (Bld) [Entitic vol] 8.9 fL Critically low 9.5-13.5 [facility] Comment on above: Performed By: #### H FPFCBC #### [facility] [address] [place] [address] Dr. Arcenio Billy PLT 271 103/ul Normal 150-450 [facility] Comment on above: Performed By: #### H FPFCBC #### [facility] [address] [place] [address] Dr. Arcenio Billy RBC 4.89 106/ul Normal 4.20-5.40 [facility] Comment on above: Performed By: #### H FPFCBC #### [facility] [address] [place] [address] Dr. Arcenio Billy WBC 5.3 103/ul Normal 4.0-11.0 [facility] Comment on above: Performed By: #### H FPFCBC #### [facility] [address] [place] [address] Dr. Arcenio Billy [facility] PROFILEon 022 Albumin [Mass/Vol] 3.7 g/dL Normal 3.4-5.0 [facility] Comment on above: Performed By: #### H FPF #### [facility] [address] [place] [address] [address] Arcenio Billy Albumin/Globulin [Mass ratio] 1.1 {ratio} Normal [facility] Comment on above: Performed By: #### H FPF #### [facility] [address] [place] [address] [address] Arcenio Billy ALP [Catalytic activity/Vol] 60 U/L Normal 46-116 [facility] Comment on above: Performed By: #### H FPF #### [facility] [address] [place] [address] [address] Arcenio Billy ALT [Catalytic activity/Vol] 47 U/L Normal 14-59 [facility] Comment on above: Performed By: #### H FPF #### [facility] [address] [place] [address] Dr. Arcenio Billy AST [Catalytic activity/Vol] 25 U/L Normal 15-37 [facility] Comment on above: Performed By: #### H FPF #### [facility] [address] [place] [address] Dr. Arcenio Billy Bilirubin [Mass/Vol] 0.5 mg/dL Normal 0.2-1.0 [facility] Comment on above: Performed By: #### H FPF #### [facility] [address] [place] [address] Dr. Arcenio Billy Calcium [Mass/Vol] 8.8 mg/dL Normal 8.5-10.1 [facility] Comment on above: Performed By: #### H FPF #### [facility] [address] [place] [address] Dr. Arcenio Billy Chloride [Moles/Vol] 103 mmol/L Normal 98-107 [facility] Comment on above: Performed By: #### H FPF #### [facility] [address] [place] [address] Dr. Arcenio Billy CHOL-HDL RATIO NORM SEE BELOW Normal [facility] Comment on above: Result Comment: 3.3 - 4.4 LOW RISK 4.4 - 7.1 AVERAGE RISK 7.1 - 11.0 MODERATE RISK >11.0 HIGH RISK Performed By: #### H FPF #### [facility] [address] [place] [address] [address] Arcenio Billy Cholesterol [Mass/Vol] 352 mg/dL Critically high <=200 [facility] Comment on above: Performed By: #### H FPF #### [facility] [address] [place] [address] [address] Arcenio Billy Cholesterol in HDL [Mass/Vol] 34 mg/dL Critically low 40-60 [facility] Comment on above: Performed By: #### H FPF #### [facility] [address] [place] [address] [address] Arcenio Billy Cholesterol in LDL [Mass/Vol] 274.2 mg/dL Normal [facility] Comment on above: Performed By: #### H FPF #### [facility] [address] [address] [address] Arcenio Billy Cholesterol.total/C holesterol in HDL [Mass ratio] 10.4 {ratio} Normal [facility] Comment on above: Performed By: #### H FPF #### [facility] [address] [address] [address] Arcenio Billy CO2 [Moles/Vol] 25.7 mmol/L Normal 21.0-32.0 [facility] Comment on above: Performed By: #### H FPF #### [facility] [address] [address] [address] Arcenio Billy Creatinine [Mass/Vol] 0.91 mg/dL Normal 0.55-1.02 [facility] Comment on above: Performed By: #### H FPF #### [facility] [address] [address] [address] Arcenio Billy Globulin (S) [Mass/Vol] 3.4 g/dL Normal [facility] Comment on above: Performed By: #### H FPF #### [facility] [address] [address] [address] Arcenio Billy Glucose [Mass/Vol] 91 mg/dL Normal 74-106 [facility] Comment on above: Performed By: #### H FPF #### [facility] [address] [address] [address] Arcenio Billy HDL NORMAL > or = 60 mg/dl - LO W CARDIOVASCULAR RISK <40 mg/dl - HIGH CARDIOVASCULAR RISK Normal [facility] Comment on above: Performed By: #### H FPF #### [facility] [address] [address] [address] Arcenio Billy LDL CALC NORMAL SEE BELOW Normal [facility] Comment on above: Result Comment: <100 mg/dl OPTIMAL 100 - 129 mg/dl NEAR OR ABOVE OPTIMAL 130 - 159 mg/dl BORDERLINE HIGH 160 - 189 mg/dl HIGH >190 mg/dl VERY HIGH Performed By: #### H FPF #### [facility] [address] [address] [address] Arcenio Billy Potassium [Moles/Vol] 4.1 mmol/L Normal 3.5-5.1 [facility] Comment on above: Performed By: #### H FPF #### [facility] [address] [place] [address] Dr. Arcenio Billy Protein [Mass/Vol] 7.1 g/dL Normal 6.4-8.2 [facility] Comment on above: Performed By: #### H FPF #### [facility] [address] [place] [address] Dr. Arcenio Billy Sodium [Moles/Vol] 139 mmol/L Normal 136-145 [facility] Comment on above: Performed By: #### H FPF #### [facility] [address] [address] [address] Arcenio Billy Triglyceride [Mass/Vol] 219 mg/dL Critically high <=150 [facility] Comment on above: Performed By: #### H FPF #### [facility] [address] [place] [address] Dr. Arcenio Billy TSH 1.717 uIU/mL Normal 0.358-3.740 [facility] Comment on above: Performed By: #### H FPF #### [facility] [address] [place] [address] Dr. Arcenio Billy Urea nitrogen [Mass/Vol] 11.0 mg/dL Normal 7.0-18.0 [facility] Comment on above: Performed By: #### H FPF #### [facility] [address] [place] [address] Dr. Arcenio Billy Urea nitrogen/Creatinine [Mass ratio] 12.1 mg/mg Normal [facility] Comment on above: Performed By: #### H FPF #### [facility] [address] [place] [address] Dr. Arcenio Billy VLDL CALC 43.8 mg/dL Normal [facility] Comment on above: Performed By: #### H FPF #### [facility] [address] [place] [address] Dr. Arcenio Billy PAP ACOG PANEL 2: 30 to 65on 09-19-2021 . . Normal [facility] Comment on above: Result Comment: Perf ormed at: WB Performed By: #### [id number] #### [facility] [address] [place] [address] Dr. Arcenio Billy Age Gdln ACOG Testing 30-65 Normal [facility] Comment on above: Performed By: #### [id number] #### [facility] [address] [place] [address] Dr. Arcenio Billy DIAGNOSIS: Comment Normal [facility] Comment on above: Result Comment: NEGA TIVE FOR INTRAEPITHELIAL LESION OR MALIGNANCY. FUNGAL ORGANISMS MORPHOLOGICALLY CONSISTENT WITH MOSES SPECIES ARE PRESENT. Performed at: WB Performed By: #### [id number] #### [facility] [address] [place] [address] Dr. Arcenio Billy HPV Aptima Negative Normal Negative [facility] Comment on above: Result Comment: This nucleic acid amplification test detects fourteen high-risk HPV types (16,18,31,33,35,39,45,51,52,56,58,59,66,68) without differentiation. Performed at: =G Performed By: #### [id number] #### [facility] [address] [place] [address] Dr. Arcenio Billy Methodology: Comment Normal [facility] Comment on above: Result Comment: This liquid based ThinPrep(R) pap test was screened with the use of an image guided system. Performed at: WB Performed By: #### [id number] #### [facility] [address] [place] [address] Dr. Arcenio Billy Note: Comment Normal [facility] Comment on above: Result Comment: The Pap smear is a screening test designed to aid in the detection of premalignant and malignant conditions of the uterine cervix. It is not a diagnostic procedure and should not be used as the sole means of detecting cervical cancer. Both false-positive and false-negative reports do occur. . Performed at: WB Performed By: #### [id number] #### [facility] [address] [address] [address] Arcenio Billy Performed by: Comment Normal [facility] Comment on above: Result Comment: Bronson Cordero Pin Drafter (ASCP) Performed at: WB Performed By: #### [id number] #### [facility] [address] [place] [address] Dr. Arcenio Billy Specimen adequacy: Comment Normal [facility] Comment on above: Result Comment: Sati sfactory for evaluation. No endocervical component is identified. Performed at: WB Performed By: #### [id number] #### [facility] [address] [place] [address] Dr. Arcenio Bilyl MG MAMM SCREEN 3D JULIO CÉSAR CADon 09-08-2021 MG MAMM SCREEN 3D JULIO CÉSAR CAD Patient: BEN CRUZ Exam Date: 09/08/2021 : 1975 Gender:F Ordering : DR CHELITA VILLANUEVA . Admission #: [id number] Family : Order #: [id number] CLICK HERE TO VIEW EXAM RADIOLOGY REPORT [...] pancreatic cancer at age 71. LOCATION: [facility] BREAST COMPOSITION: Scattered areas fibroglandular [...] PALPABLE LUMP SHOULD BE BIOPSIED. Dictated by: hZanna Mc MD on 09/08/2021 at 11:39 Approved by: Zhanna Mc MD on 09/08/2021 at 11:41 Normal [facility] MRI BRAIN WO/W IVCONon 08-23 [facility] MRI LIVER WO/W IVCONon 06-16 [facility] MRI BRAIN WO/W IVCONon 06-01 [facility] Vital Signs Date Time Vital Sign Value Performing Clinician Facility 03-16-2023 13:45-0500 Body height 162.56 cm Lissett Vega Other [facility] 03-16-2023 13:45-0500 Body mass index (BMI) [Ratio] 34.5 kg/m2 Lissett Vega Other [facility] 03-16-2023 13:45-0500 Body temperature 99.1 [degF] Lissett Vega Other [facility] 03-16-2023 13:45-0500 Body weight 91.17 kg Lissett Vega Other [facility] 03-16-2023 13:45-0500 Diastolic blood pressure 88 mm[Hg] Lissett Vega Other [facility] 03-16-2023 13:45-0500 SaO2% (BldA) [Mass fraction] 98 % Lissett Vega Other [facility] 03-16-2023 13:45-0500 Systolic blood pressure 128 mm[Hg] Lissett Vega Other [facility] 02-17-2023 14:47-0500 Blood Pressure Location Debbie NILL [facility] 02-17-2023 14:47-0500 Diastolic blood pressure 84 mm[Hg] Debbie NILL [facility] 02-17-2023 14:47-0500 Heart rate 76 /min Debbie NILL [facility] 02-17-2023 14:47-0500 Respiratory rate 16 /min Debbie NILL [facility] 02-17-2023 14:47-0500 Systolic blood pressure 128 mm[Hg] Debbie NILL [facility] 09-21-2022 11:30-0400 Body height 162.56 cm Lissett Vega Other [facility] 09-21-2022 11:30-0400 Body mass index (BMI) [Ratio] 36.56 kg/m2 Lissett Vega Other [facility] 09-21-2022 11:30-0400 Body weight 96.62 kg Lissett Vega Other [facility] 09-21-2022 11:30-0400 Diastolic blood pressure 84 mm[Hg] Lissett Vega Other [facility] 09-21-2022 11:30-0400 Systolic blood pressure 137 mm[Hg] Lissett Vega Other [facility] 06-21-2022 10:32-0400 Body height 165 cm Debbie Echeverria MD Work Phone: [facility] 06-21-2022 10:32-0400 Body temperature 96.8 [degF] Debbie Echeverria MD Work Phone: [facility] 06-21-2022 10:32-0400 Body weight 98.79 kg Debbie Echeverria MD Work Phone: [facility] 06-21-2022 10:32-0400 Diastolic blood pressure 82 mm[Hg] Debbie Echeverria MD Work Phone: [facility] 06-21-2022 10:32-0400 Heart rate 74 /min Debbie Echeverria MD Work Phone: [facility] 06-21-2022 10:32-0400 Respiratory rate 18 /min Debbie Echeverria MD Work Phone: [facility] 06-21-2022 10:32-0400 SaO2% (BldA) [Mass fraction] 96 % Debbie Echeverria MD Work Phone: [facility] 06-21-2022 10:32-0400 Systolic blood pressure 139 mm[Hg] Debbie Echeverria MD Work Phone: [facility] 12-21-2021 13:24-0400 Body temperature 98.6 [degF] Debbie Echeverria MD Work Phone: [facility] 12-21-2021 13:24-0400 Body weight 102.15 kg Debbie Echeverria MD Work Phone: [facility] 12-21-2021 13:24-0400 Diastolic blood pressure 82 mm[Hg] Debbie Echeverria MD Work Phone: [facility] 12-21-2021 13:24-0400 Heart rate 79 /min Debbie Echeverria MD Work Phone: [facility] 12-21-2021 13:24-0400 Respiratory rate 20 /min Debbie Echeverria MD Work Phone: [facility] 12-21-2021 13:24-0400 SaO2% (BldA) [Mass fraction] 100 % Debbie Echeverria MD Work Phone: [facility] 12-21-2021 13:24-0400 Systolic blood pressure 145 mm[Hg] Debbie Echeverria MD Work Phone: [facility] Encounters Encounter Date Encounter Type Care Provider Facility Start: 03-23-2023 End: 03-23-2023 ambulatory Lissett Vega Other [facility] Start: 03-23-2023 Telephone encounter Lissett Gary [facility] Start: 03-16-2023 End: 03-16-2023 ambulatory Lissett Gary Other [facility] Start: 03-16-2023 Office outpatient vi sit 15 minutes Lissett Vega [facility] Start: 03-08-2023 End: 03-09-2023 ambulatory Debbie HERNANDEZL Facility:CD:[id number] Start: 02-17-2023 End: 02-18-2023 ambulatory Debbie R NILL Facility:[facility] Start: 02-17-2023 End: 02-17-2023 Patient encounter procedure Debbie DE LOS SANTOS General Surgery Nill/Said Jayjay Start: 02-07-2023 Telephone encounter Johann Henriquez [facility] [place] Start: 02-06-2023 Telephone encounter Johann Henriquez [facility] [place] Comment on above: Gamma Knife Follow-u p Start: 01-27-2023 End: 01-28-2023 Orders Only Gurpreet Beckwith DO, PhD Work Phone: Neurosurgery Comment on above: Benign neoplasm of m eninges (HCC) (Primary Dx) Benign neoplasm of m eninges (HCC) [D32.9] Start: 01-27-2023 Patient encounter procedure Burak Prakash MD Work Phone: [facility] Start: 01-27-2023 Radiation Oncology Note Susi Prakash MD Work Phone: [facility] Comment on above: Procedure Treatment Planning Start: 01-24-2023 ambulatory Debbie DE LOS SANTOS Facility:[facility] Start: 01-23-2023 End: 01-23-2023 ambulatory Lissett Vega Other [facility] Start: 01-23-2023 Telephone encounter Lissett Vega [facility] Start: 12-22-2022 End: 12-22-2022 ambulatory DEBBIE ECHEVERRIA Facility:[facility] Start: 11-15-2022 Telephone encounter Betzy liao RN Work Phone: [facility] Comment on above: 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 (Schedule gamma 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/) Start: 11-04-2022 End: 11-04-2022 ambulatory Gurpreet Beckwith DO, PhD Work Phone: [facility] Comment on above: Benign neoplasm of m eninges (HCC) (Primary Dx) Start: 11-04-2022 End: 11-04-2022 Telemedicine consultation with patient Gurpreet Beckwith DO, PhD Work Phone: [facility] Start: 10-31-2022 End: 10-31-2022 ambulatory Lissett Vega Other [facility] Start: 10-31-2022 Telephone encounter Lissett Vega [facility] Start: 10-19-2022 End: 10-19-2022 ambulatory DEBBIE ECHEVERRIA Facility:[facility] Start: 10-19-2022 End: 10-19-2022 ambulatory Luis Licona MD Work Phone: Radiation Oncology Comment on above: Meningioma (HCC) (Pr imary Dx) Start: 10-19-2022 End: 10-19-2022 Telemedicine consultation with patient Luis Licona MD Work Phone: [facility] Start: 10-18-2022 End: 10-18-2022 ambulatory DEBBIE ECHEVERRIA Facility:[facility] Start: 10-18-2022 End: 10-18-2022 ambulatory Trista Bonilla APRN.FORESTRY ADVISER Work Phone: Radiation Oncology Comment on above: Meningioma (HCC) (Pr imary Dx) Start: 10-18-2022 End: 10-18-2022 Telemedicine consultation with patient Trista Bonilla APRN.FORESTRY ADVISER Work Phone: [facility] Start: 10-17-2022 End: 10-17-2022 ambulatory TRISTA BONILLA Facility:[facility] Start: 10-17-2022 End: 10-17-2022 Subsequent hospital visit by physician Mri [facility] (Lg Bore/1.5t) Radiology MRI Comment on above: Benign neoplasm of m eninges (HCC) [D32.9] Start: 09-23-2022 End: 09-23-2022 ambulatory Lissett Vega Other [facility] Start: 09-23-2022 Telephone encounter Lissett Vega [facility] Start: 09-21-2022 End: 09-21-2022 ambulatory Lissett Vega Other [facility] Start: 09-21-2022 Encounter for other preprocedural examination Lissett Vega [facility] Start: 09-21-2022 Office outpatient vi sit 25 minutes Lissett Vega [facility] Start: 09-12-2022 End: 09-12-2022 ambulatory Taz Rossi Facility:[facility] Start: 08-31-2022 Telephone encounter Luis osborn MD Work Phone: Radiation Oncology Comment on above: 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 Start: 06-21-2022 End: 06-21-2022 ambulatory DEBBIE ECHEVERRIA Facility:[facility] Start: 06-21-2022 End: 06-21-2022 ambulatory Debbie Echeverria MD Work Phone: Hematology/Oncology Comment on above: Malignant melanoma o f torso excluding breast (HCC) (Primary Dx) Start: 06-21-2022 End: 06-21-2022 Patient encounter procedure Debbie Echeverria MD Work Phone: [facility] Start: 03-16-2022 End: 03-16-[address] LISSETT VEGA Facility:[facility] Start: 02-28-2022 End: 02-28-2022 ambulatory DEBBIE ECHEVERRIA Facility:[facility] Start: 02-28-2022 End: 02-28-2022 ambulatory Trista Bonilla APRNJuveFORESTRY ADVISER Work Phone: Radiation Oncology Comment on above: Benign neoplasm of m eninges (HCC) (Primary Dx) Start: 02-28-2022 End: 02-28-2022 Telemedicine consultation with patient Trista Bonilla APRN.FORESTRY ADVISER Work Phone: [facility] Start: 02-23-2022 End: 02-23-2022 ambulatory LUIS LICONA Facility:[facility] Start: 02-23-2022 End: 02-23-2022 Subsequent hospital visit by physician Mri [facility] (Lg Bore/1.5t) Radiology MRI Comment on above: Benign neoplasm of m eninges (HCC) [D32.9] Start: 12-21-2021 End: 12-21-2021 ambulatory Debbie Echeverria MD Work Phone: Hematology/Oncology Comment on above: Malignant melanoma o f torso excluding breast (HCC) (Primary Dx) Start: 12-21-2021 End: 12-21-2021 Patient encounter procedure Debbie Echeverria MD Work Phone: [facility] Start: 12-15-2021 End: 12-15-[address] LISSETT VEGA Facility:[facility] Start: 12-11-2021 Gynecological examin ation normal Lissett Vega Other [facility] Start: 12-01-2021 Telephone encounter Debbie Echeverria MD Work Phone: Hematology/Oncology Comment on above: 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 Start: 11-18-2021 End: 11-19-2021 [...] with patient Luis Licona MD Work Phone: [facility] Start: 08-23-2021 End: 08-23-2021 Subsequent hospital visit by physician Mri [facility] (Lg Bore/1.5t) Radiology MRI Comment on above: Benign neoplasm of m eninges (HCC) [D32.9] Start: 06-16-2021 End: 06-16-2021 Subsequent hospital visit by physician Mri [facility] (Lg Bore/1.5t) Radiology MRI Comment on above: Malignant 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] Start: 06-01-2021 End: 06-01-2021 Subsequent hospital visit by physician Mri [facility] (Lg Bore/1.5t) Radiology MRI Comment on above: [...] 12-21-2022 Adult depression screening assessment DEPRESSION SCREENING [facility] Start: 12-02-2022 Influenza vaccination C [facility] Start: 08-29-2022 End: 03-31-2023 Mri brain brain stem w/o w/contrast material MRI BRAIN WO/W IVCON Radiology Routine Benign neoplasm of meninges (HCC) Expected: 08/29/2022, Expires: 03/31/2023 [facility] Work Phone: Comment on above: Expected: 08/29/2022 , Expires: 03/31/2023 Start: 08-22-2022 Adult depression screening assessment DEPRESSION SCREENING [facility] Start: 04-03-2022 DEPRESSION ASSESSMENT DEPRESSION ASS ESSMENT [facility] Start: 01-24-2022 DIABETES SCREEN DIABETES SCREEN [facility] Start: 01-24-2022 Diabetes Screening Diabetes Screenin g [facility] Start: 12-02-2021 Influenza vaccination C [facility] Start: 04-03-2021 DEPRESSION ASSESSMENT DEPRESSION ASS ESSMENT [facility] Start: 07-12-2020 COLOGUARD (FIT-DNA) COLOGUARD (FIT-D NA) [facility] Start: 07-12-2020 Colonoscopy COLONOSCOPY [facility] Start: 07-12-2020 COLORECTAL CANCER SCREENING COLORECTAL CANCER SCREENING [facility] Start: 07-12-[address] COLONOGRAPHY [facility] Start: 07-12-2020 FECAL OCCULT BLOOD FECAL OCCULT BLOO D [facility] Start: 07-12-2020 Lipid 1996 panel - S emeterio or Plasma Lipid Screening [facility] Start: 07-12-2020 LIPID SCREEN LIPID SCREEN [facility] Start: 07-12-2020 SIGMOIDOSCOPY SIGMOIDOSCOPY [facility] Start: 2015 Mammography [facility] Start: 07-12-2005 HPV TESTING HPV TESTING [facility] Start: 07-12-1996 PAP TESTING PAP TESTING [facility] Start: 07-12-1994 Urine microalbumin profile [facility] Start: 07-12-1993 HEPATITIS C SCREENING HEPATITIS C SC REENING [facility] Start: 07-12-1993 HIV SCREENING HIV SCREENING [facility] Start: 07-12-1981 PNEUMOCOCCAL (1 - PCV) PNEUMOCOCCAL (1 - PCV) [facility] Start: 07-12-1980 COVID-19 VACCINE (#1) COVID-19 VACCI NE (#1) [facility] Start: 01-12-1976 COVID-19 VACCINE (#1) COVID-19 VACCI NE (#1) [facility] Start: 1975 HEPATITIS B (1 of 3 - 3-dose series) HEPATITIS B (1 of 3 - 3-dose series) [facility] Start: 1975 Hepatitis B Vaccine (1 of 3 - 3-dose series) Hepatitis B Vaccine (1 of 3 - 3-dose series) [facility] End: 09-22-2022 Mri brain brain stem w/o w/contrast material MRI BRAIN WO/W IVCON Radiology Routine Benign neoplasm of meninges (HCC) 1 Occurrences starting 08/23/2021 until 09/22/2022 [facility] Work Phone: Comment on above: 1 Occurrences starti ng 08/23/2021 until 09/22/2022 [facility] MC ANESTHESIA O NLY [facility] Immunizations Immunization Date Immunization Notes Care Provider Fa cility 06-05-2020 SARS-CoV-2 (COVID-19 ) mRNA BNT-162b2 vax Debbie NILL [facility] 05-15-2020 SARS-CoV-2 (COVID-19 ) mRNA BNT-162b2 vax Debbie NILL [facility] NEGATED: Highlighted row has not occurred!02-17-2023 influenza virus vaccine, unspecified formulation Debbie NILL [facility] Payers Date Payer Category Payer Self-pay 2018 Unknown MMO MMO [employer] [id number] 2018-Present [phone] [address] [place] [address] PPO [id number] 2018 Unknown [id number] 1975 Unknown [id number] 1975 Unknown [id number] 1975 Unknown [id number] 1975 Unknown [id number] 1975 Unknown [id number] 1975 Unknown [id number] 1959 Self-pay [id number] 1959 Unknown [id number] Unknown [id number] Unknown [id number] Social History Date Type Detail Facility Start: 11-19-2018 End: 02-17-2023 Tobacco smoking status NHIS Ex-smoker [facility] End: 08-02-2018 History of tobacco use Current smoker [facility] End: 08-02-2018 History of tobacco use Cigarette Smoker [facility] Start: 11-19-2018 Tobacco use and exposure Smokeless t obacco non-user [facility] Start: 06-21-2021 End: 12-22-2022 Alcohol intake Current drinker of alcohol (finding) [facility] Start: 11-19-2018 History SDOH Alcohol Comment occasionally [facility] Start: 1975 Sex Assigned At Not on file C [facility] Start: 12-11-2021 End: 12-21-2021 Exposure to SARS-CoV-2 (event) Not sure [facility] Start: 06-21-2022 End: 10-18-2022 Sex Assigned At [facility] Start: 06-21-2022 End: 10-18-2022 History of Social function [facility] Adult Depression Screening Assessment 0 [facility] Start: 01-20-2020 Gender identity Identifies as female gender (finding) [facility] Start: 05-02-2021 End: 06-11-2021 Exposure to SARS-CoV-2 (event) Unable to assess [facility] Functional Status Date Assessment Result Facility [...] Mar, 2023 Microscopic hematuria (ICD-10 - R31.29) [facility] 11-17-2023 NoteChief Complaint consultation for screening colonoscopy [facility] Staff 47 year old female presents [...] Recorded SARS-CoV-2 (COVID-19) mRNA BNT-162b2 vax 05/15/[facility]Result Comment: Electronically Signed By: MAGALI MCKINLEY, Debbie He\Date and Time Signed: 02/17/23 15:11 [id number] Miscellaneous Notes* Telephone Encounter - Johann Henriquez [...] symptoms or concerns arise. [facility] Miscellaneous Notes* Telephone Encounter - Johann Henriquez RN - 02/07/2023 1:13 PM EST 2nd attempt to reach out, patient unavailable. Will send [facility] Mobile message with contact information to call if she is experiencing any symptoms or has any concerns since gamma knife treatment. * Telephone Encounter - Johann Henriquez RN - 02/06/2023 1:17 PM EST Calling Ben for post-GKRS follow-up. Unable to reach at this time. Left voicemail. documented in this encounterSelect Medical Trihealth Rehabilitation [facility]11-01-2023 NoteHNO ID: [id number] Author: Burak Prakash MD Service: Radiation Oncology Author Type: Physician Type: Progress Notes Filed: 02/03/2023 12:33 AM Note Text: BEN CRUZ [id number] 02/01/2023 [facility] / Department of Radiation [...] :57 AM Electronically Signed cc: [facility]. [facility]with[facility] NoteHNO ID: [id number] Author: Gurpreet Beckwith DO, PhD Service: ? Author Type: Physician Type: Progress Notes Filed: 01/27/2023 1:49 PM Note Text: [facility] [address] [place] [address] [place] OPERATIVE REPORT NAME: Ben Cruz [facility] NO.: [id number] MASK SIMULATION DATE: 2023-01-27 RADIATION TREATMENT START DATE: 2023-01-27 RADIATION TREATMENT END DATE: 2023-01-27 NUMBER OF FRACTIONS: 1 PREOPERATIVE DIAGNOSIS: Meningioma POSTOPERATIVE DIAGNOSIS: Same OPERATION: 1 fraction mask gamma knife 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. ANESTHESIA: None SURGEON: Gurperet Beckwith DO, PhD - Stereotactic treatment planning. [...] of Fractions: 1 After the usual quality checker procedures were performed, fractionated 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 was delivered with use of the Gamma Knife. The Gamma Knife checklist and time outs were performed during this procedure. Gurpreet Beckwith DO, PhDThe [facility]10-27-2023 NoteHNO ID: [id number] Author: Burak Prakash MD Service: Radiation Oncology Author Type: Physician Type: Progress Notes Filed: 02/01/2023 12:33 AM Note Text: BEN CRUZ [id number] 01/27/2023 [facility] STEREOTACTIC RADIOSURGERY (SRS) DAILY PROCEDURE NOTE [...] patient setup, I conferred with the medical records receptionist to approve the final setup. I was [...] planned. Electronically Signed Burak Prakash M.D. :10 [facility]10-27-2023 NoteHNO ID: [id number] Author: Burak Prakash MD Service: Radiation Oncology Author Type: Physician Type: Progress Notes Filed: 02/02/2023 12:32 AM Note Text: BEN CRUZ [id number] 01/27/2023 [facility] Department of Radiation Oncology [facility] RADIATION ONCOLOGY GAMMA KNIFE SIMULATION NOTE [...] planning. Electronically Signed Burak Prakash M.D. :18 [facility]10-27-2023 NoteHNO ID: [id number] Author: Burak Prakash MD Service: Radiation Oncology Author Type: Physician Type: Progress Notes Filed: 02/01/2023 12:33 AM Note Text: BEN CRUZ [id number] 01/27/2023 [facility] Department of Radiation Oncology [facility] RADIATION ONCOLOGY GAMMA KNIFE TREATMENT PLANNING [...] DVH. Electronically Signed Burak Prakash M.D. / [facility] 31:29 [facility]10-27-2023 History of Present illness Narrative* Gurpreet Beckwith DO, PhD - 01/27/2023 1:49 PM EDT [facility] [address] [place] [address] [place] OPERATIVE REPORT NAME: Ben Cruz [facility] NO.: [id number] MASK SIMULATION DATE: 2023-01-27 RADIATION TREATMENT START [...] of Fractions: 1 After the usual quality checker procedures were performed, fractionated 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 was delivered with use of the Gamma Knife. The Gamma Knife checklist and time outs were performed during this procedure. Gurpreet Beckwith DO, PhD documented in this encounterSelect Medical Trihealth Rehabilitation Hospital10-27-2023 NoteHNO ID: [id number] Author: Gurpreet Beckwith DO, PhD Service: ? Author Type: Physician Type: Progress Notes Filed: 01/27/2023 11:22 AM Note Text: [facility] [address] [place] [address] [place] OPERATIVE REPORT NAME: Ben Cruz [facility] NO.: [id number] MASK SIMULATION DATE: 2023-01-27 RADIATION TREATMENT START [...] of Fractions: 1 After the usual quality checker procedures were performed, fractionated 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 was delivered with use of the Gamma Knife. The Gamma Knife checklist and time outs were performed during this procedure. Gurpreet Beckwith DO, PhDThe [facility]10-27-2023 NoteHNO ID: [id number] Author: Zee Padilla Tech Service: Radiology Author Type: Communications Designer Type: Progress Notes Filed: 01/27/2023 8:06 AM [...] BY: Tyshawn Lawler January 27, 2023 8:06 [facility]10-27-2023 NoteHNO ID: [id number] Author: Gurpreet Beckwith DO, PhD Service: ? [...] - 123 U/L 60 (more content not included)...[facility]10-27-2023 History of Present illness Narrative* Gurpreet Beckwith DO, PhD - 01/27/2023 11:21 AM EDT [facility] [address] [place] [address] [place] OPERATIVE REPORT NAME: Ben Cruz [facility] NO.: [id number] MASK SIMULATION DATE: 2023-01-27 RADIATION TREATMENT START [...] of Fractions: 1 After the usual quality checker procedures were performed, fractionated 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 was delivered with use of the Gamma Knife. The Gamma Knife checklist and time outs were performed during this procedure. Gurpreet Beckwith DO, PhD documented in this encounterSelect Medical Trihealth Rehabilitation Hospital10-27-2023 History of Present illness Narrative* Zee [...] 27, 2023 8:06 AM documented in this encounterSelect Medical Trihealth Rehabilitation Hospital10-27-2023 NoteHNO ID: [id number] Author: Anton Terrell RN Service: Nursing Author [...] Cruz DATE: January 27, 2023 TIME: 7:46 [facility]10-27-2023 NoteHNO ID: [id number] Author: Mariela Burk RT(R) Service: Radiology Author [...] BY: RT Nestor(R) January 27, 2023 7:59 [facility]10-27-2023 History of Present illness Narrative* Gurpreet Beckwith [...] 123 U/L 60 Final Pathology: Specimen #: [id number]* Submitting Physician: DEBBIE ECHEVERRIA MD FINAL DIAGNOSIS [...] FRONTAL LOBE, UNCHANGED GOING BACK TO 06/01/2021 Whiskey Regauger: [facility] Transcribe Date/Time: Jan 27 2023 8:08A Dictated [...] PhD cc: Ben toro documented in this encounterSelect Medical Trihealth Rehabilitation Hospital10-27-2023 NoteHNO ID: [id number] Author: Gayle Acevedo RN Service: ? Author [...] Patient's Age: 47 Menstruation Status: Hysterectomy [place] [facility] Results: N/A test not performed QC: Yes, [...] verbalized understanding; patient discharged via/with Gayle Acevedo RNThe [facility]10-27-2023 Instructions* Patient Instructions* Gayle Acevedo RN - 01/27/2023 7:45 AM EDT [facility] Discharge Instructions As [...] a physician or hospital other than the [facility] with any problem related to [...] may your physician, Dr. Virgil Beckwith at [phone] Monday through Monday 8:00 am to 5:00 pm, or call the Gamma Knife nurse Monday through Monday 8:00 am to 4:00 pm at [phone]. In the evening or on weekends, call [phone] or toll-free [phone] and ask the phototypesetter operator to page your neurosurgeon's resident incident response analyst. documented in this encounterSelect Medical Trihealth Rehabilitation Hospital10-27-2023 History of Present illness Narrative* Anton [...] 27, 2023 7:59 AM documented in this encounterSelect Medical Trihealth Rehabilitation Hospital10-27-2023 History of Present illness Narrative* Gayle [...] Patient's Age: 47 Menstruation Status: Hysterectomy 2019 [facility] Results: N/A test not performed QC: Yes, [...] via/with Gayle Acevedo RN documented in this encounterSelect Medical Trihealth Rehabilitation Hospital10-27-2023 History of Present illness Narrative* Burak Prakash MD - 01/27/2023 12:00 AM EDT BEN CRUZ [id number] 01/27/2023 [facility] STEREOTACTIC RADIOSURGERY (SRS) DAILY PROCEDURE NOTE [...] to patientsetup, I conferred with the medical records receptionist to approve the final setup. I was [...] Prakash M.D. 31:10 PM documented in this encounterSelect Medical Trihealth Rehabilitation Hospital10-27-2023 History of Present illness Narrative* Burak Prakash MD - 01/27/2023 12:00 AM EDT BEN CRUZ [id number] 01/27/2023 [facility] Department of Radiation Oncology [facility] RADIATION ONCOLOGY GAMMA KNIFE TREATMENT PLANNING [...] DVH. Electronically Signed Burak Prakash M.D. / [facility] 31:29 PM documented in this encounterSelect Medical Trihealth Rehabilitation Hospital09-21-2023 NoteHNO ID: [id number] Author: Debbie Echeverria MD Service: ? Author Type: Physician Type: Progress Notes Filed: 12/23/2022 9:46 AM Note Text: December 22, 2022 DXN: Resected T4aN0 desmoplastic melanoma. The lesion was about 4.5mm located on her back with 2 negative SLNs (left axilla). There was no reported neurtropism and only one mitotic figure. Margins were negative. Declined an adjuvant trial in minerva. Baseline imaging today is negative CC: Melanoma [...] beckwith components of the Resident. Debbie Echeverria, [facility]08-15-2023 Miscellaneous Notes* Telephone Encounter - Betzy Heard RN - 11/15/2022 1:57 PM EDT Calling Ben to follow up on ICS Mobile message about scheduling gamma knife for 01/27/2023 No answer, left message stating that I'll go ahead and place the GK orders. Reminded to disregard ANY appointment times she sees in ICS Mobile, any automated text reminders or automated phone calls for 01/27/23 She will receive a call from the GK nurse or radiation therapist the day before with her arrival time. If she has any questions, I left office phone # for call back or she can send a ICS Mobile message. I will send out a GK folder with additional information related to Mask Based Gamma Knife Radiosurgery Betzy Heard RN, BSN Sales Account Executive [facility] documented in this encounterSelect Medical Trihealth Rehabilitation Hospital08-04-2023 NoteHNO ID: [id number] Author: Gurpreet Beckwith DO, PhD Service: ? Author Type: Physician Type: Progress Notes Filed: 11/04/2022 1:27 PM Note Text: [facility] Neuro[facility]cology [facility] New Patient Virtual Consultation Referred by Dr. Luis Licona We had a virtual visit conducted via HouseCall virtual visit. I received consent from the patient to perform the visit using this platform. I have communicated my name and active licensure. The patient's identity and physical location were verified at the time of this visit. Either the patient or their legal office services representative has been informed of the risks [...] Pathology: Specimen #: [id number] (more content not included)...[facility] 11-04-2022 History of Present illness Narrative* Gurpreet Beckwith DO, PhD - 11/04/2022 1:00 PM EDT Images from the original note were not included. [facility] New Patient Virtual Consultation Referred by Dr. Luis Licona We had a virtual visit conducted via HouseCall virtual visit. I received consent from the patient to perform the visit using this platform. I have communicated my name and active licensure. The patient's identity and physical location wereverified at the time of this visit. Either the patient or their legal office services representative has been informed of the risks [...] 123 U/L 60 Final Pathology: Specimen #: [id number]* Submitting Physician: DEBBIE ECHEVERRIA MD FINAL DIAGNOSIS Skin, left upper midline back, shave biopsy - Desmoplastic melanoma, see synoptic report. SDB/rw 11/09/2018 Imaging: MRI Report MRI BRAIN WO/W IVCON Exam End: 10/17/2022 11:20 AM (Final result) Narrative: * * *Final Report* * * DATE OF EXAM: Oct 17 2022 11:20AM [employer] [facility] - MRI BRAIN WO/W IVCON / [...] with air-fluid level suggestive of acute/active sinusitis. [facility] Transcribe Date/Time: Oct 17 2022 11:35A [...] which included preparing to see the patient, xefe-ms-jnne patient care, completing clinical documentation, obtaining and/or reviewing separately obtained history, performing a medically appropriate examination, counseling and educating the pat ient/family/caregiver, ordering medications, tests, or procedures, communicating with other HCPs (not separately reported), independently interpreting results (not separately reported), communicatingresults to the patient/family/caregiver, and care coordination (not separately reported). Gurpreet Beckwith DO, PhD cc: Ben toro documented in this encounterSelect Medical Trihealth Rehabilitation Hospital07-31-2023 Evaluation note* Encounter Date Diagnosis Assessment Notes Treatment Notes Treatment Clinical Notes Oct, Screen for colon cancer (ICD-10 - Z12.11) [facility] Other 07-19-2023 NoteHNO ID: [id number] Author: Luis Licona MD Service: ? Author [...] resident's medical decisio (more content not included)... [facility]07-19-20[facility] History of Present illness Narrative* Luis Licona [...] cc: Debbie Echeverria [address] [place] [facility] [id number] documented in this encounterSelect Medical Trihealth Rehabilitation Hospital07-18-2023 NoteHNO ID: [id number] Author: Trista Bonilla APRN.SHERITA Service: ? Author Type: Nurse Practitioner Type: Progress Notes Filed: 10/19/2022 12:11 AM Note Text: Elements of this note, including HPI, ROS, Physical Exam, Assessment and Plan were copied and pasted from 02/28/22 encounter with me. Updates have been made where noted and reflect current exam and medical decision making from October 18, 2022. Trista Bonilla APRN.SHERITA. [facility] DISTANCE HEALTH VISIT This visit is a Virtual MyChart video visit encounter which required patient-provider interaction for the medical decision making as documented below. Persons Present: patient Ben Cruz has consented to this distance health encounter. Total Time Spent: more than 20 minutes dklz-bv-alre with the patient and over half the [...] with air-fluid level suggestive of acute/active sinusitis. Whiskey Regauger: TORI Transcribe Date/Time: Oct 17 2022 11:35A [...] Moves all extremities purp (more content not included)...[facility]07-18-[facility] History of Present illness Narrative* Trista Bonilla APRN.SHERITA - 10/18/2022 10:30 AM EDT Elements of this note, including HPI, ROS, Physical Exam, Assessment and Plan were copied and pasted from 02/28/22 encounter with me. Updates have been made where noted and reflect current exam and medical decision making from October 18, 2022. Trista Bonilla APRN.SHERITA. [facility] DISTANCE HEALTH VISIT This visit is a Virtual MyChart video visit encounter which required patient- provider interaction for the medical decision making as documented below. Persons Present: patient Ben Cruz has consented to this distance health encounter. Total Time Spent: more than 20 minutes xstz-ck-yjys with the patient and over half the [...] DATE OF EXAM: Oct 17 2022 11:20AM [employer] [facility] - MRI BRAIN WO/W IVCON / [...] with air-fluid level suggestive of acute/active sinusitis. Whiskey Regauger: TORI Transcribe Date/Time: Oct 17 2022 11:35A [...] Cc: Dr. Luis Echeverria documented in this encounterSelect Medical Trihealth Rehabilitation Hospital07-17-2023 NoteHNO ID: [id number] Author: Nidia Morelos RN Service: Nursing Author [...] Cruz DATE: October 17, 2022 TIME: 10:40 [facility]07-17-2023 NoteHNO ID: [id number] Author: MANISH Hubbard Service: Radiology Author Type: Communications Designer Type: Progress Notes Filed: 10/17/2022 10:54 AM [...] MANISH Hubbard Tech October 17, 2022 10:53 [facility]07-17-2023 History of Present illness Narrative* Nidia Morelos [...] 17, 2022 10:53 AM documented in this encounterSelect Medical Trihealth Rehabilitation Hospital06-21-2023 Evaluation note* Encounter Date Diagnosis Assessment [...] the berberine and get back to patient. [facility] Other 05-31-2023 Miscellaneous Notes* Telephone Encounter - [...] 09/05. Prescription should be sent to the [facility] in [facility]. [facility] [phone] [place] [address] documented in this encounterSelect Medical Trihealth Rehabilitation Hospital03-21-2023 NoteHNO ID: [id number] Author: Debbie Echeverria MD Service: ? Author Type: Physician Type: Progress Notes Filed: 06/21/2022 11:09 AM Note Text: June 21, 2022 DXN: Resected T4aN0 desmoplastic melanoma. The lesion was about 4.5mm located on her back with 2 negative SLNs (left axilla). There was no reported neurtropism and only one mitotic figure. Margins were negative. Declined an adjuvant trial in minerva. Baseline imaging today is negative CC: Melanoma [...] with more than 50% of the total hdfx-vu-utle time of the visit in counseling / coordination of care. Debbie Echeverria, [facility]03-21-2023 History of Present illness Narrative* Debbie Echeverria MD - 06/21/2022 11:08 AM EDT June 21, 2022 DXN: Resected T4aN0 desmoplastic melanoma. The lesion was about 4.5mm located on her back with 2 negative SLNs (left axilla). There was no reported neurtropism and only one mitotic figure. Margins were negative. Declined an adjuvant trial in minerva. Baseline imaging today is negative CC: Melanoma [...] with more than 50% of the total awjf-te-nkrw time of the visit in counseling / coordination of care. Debbie Echeverria MD documented in this encounterSelect Medical Trihealth Rehabilitation Hospital03-21-2023 Nurse Note* Vanessaden Giang LPN - 06/21/2022 10:29 AM EDT Additional intake questions: Has the patient had fever, nausea, vomiting, diarrhea, constipation, fatigue for > 1 week? Yes, fatigue and Provider Notified Does the patient have a decreased appetite? No Does patient want to see a Unionmelt Operator? No (yes to any of above refer patient to schedulers for dietitian appointment) ) Does patient have any new or increased numbness or tingling of extremities? No Is patient interested in fertility information? NA Does patient need any prescription refills? No Does patient have an advanced directive in place? No, Patient refused referral to Social Work or Resource Center documented in this encounterSelect Medical Trihealth Rehabilitation Hospital11-28-2022 NoteHNO ID: [id number] Author: Trista Bonilla APRN.FORESTRY ADVISER Service: ? Author Type: Nurse Practitioner Type: Progress Notes Filed: 03/01/2022 9:23 AM Note Text: [facility] This visit is a Virtual MyChart video visit encounter which required patient-provider interaction for the medical decision making as documented below. Persons Present: patient Ben Cruz has consented to this distance health encounter. 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 She denies focal weakness, dizziness, gait instability, or seizures. Data Reviewed: MRI Report MRI BRAIN WO/W IVCON Exam End: 02/23/2022 11:31 AM (Final result) Narrative: * * *Final Report* * * DATE OF EXAM: Feb 23 2022 11:31AM [employer] [facility] - MRI BRAIN WO/W IVCON / [...] unremarkable MRI brain with and without contrast. Whiskey Regauger: TORI Transcribe Date/Time: Feb 23 2022 11:50A [...] Coughing noted :No A (more content not included)...[facility]11-28-20[facility] History of Present illness Narrative* Trista Bonilla APRN.FORESTRY ADVISER - 02/28/2022 10:30 AM EST [facility] DISTANCE HEALTH VISIT [facility] which required patient- provider interaction for the medical decision making as documented below. Persons Present: patient Ben Cruz has consented to this distance health encounter. 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 She denies focal weakness, dizziness, gait instability, or seizures. Data Reviewed: MRI Report MRI BRAIN WO/W IVCON Exam End: 02/23/2022 11:31 AM (Final result) Narrative: * * *Final Report* * * DATE OF EXAM: Feb 23 2022 11:31AM [employer] [facility] - MRI BRAIN WO/W IVCON / [...] unremarkable MRI brain with and without contrast. Whiskey Regauger: TORI Transcribe Date/Time: Feb 23 2022 11:50A [...] She will continue to get MRI at [facility] and present in VV follow up. Trista Bonilla APRN.CNP Cc: Dr. Luis Echeverria documented in this encounterSelect Medical Trihealth Rehabilitation Hospital11-23-2022 NoteHNO ID: [id number] Author: Barbara Gaxiola emr analyst Service: Radiology Author Type: Communications Designer Type: Progress Notes Filed: 02/23/2022 11:00 AM [...] Site disposition Discontinued SIGNED BY: Barbara Gaxiola emr analyst February 23, 2022 10:57 [facility]11-23-2022 NoteHNO ID: [id number] Author: Nidia Morelos RN Service: Nursing Author [...] Cruz DATE: February 23, 2022 TIME: 10:33 [facility]11-23-2022 History of Present illness Narrative* Nidia Morelos [...] 2022 TIME: 10:33 AM * Barbara Gaxiola, emr analyst - 02/23/2022 10:40 AM EST Radiology Service [...] 23, 2022 10:57 AM documented in this encounterSelect Medical Trihealth Rehabilitation Hospital09-20-2022 History of Present illness Narrative* Debbie Echeverria MD - 12/21/2021 1:37 PM EDT December 21, 2021 DXN: Resected T4aN0 desmoplastic melanoma. The lesion was about 4.5mm located on her back with 2 negative SLNs (left axilla). There was no reported neurtropism and only one mitotic figure. Margins were negative. Declined an adjuvant trial in minerva. Baseline imaging today is negative CC: Melanoma [...] with more than 50% of the total osxc-rv-cidz time of the visit in counseling / coordination of care. Debbie Echeverria MD documented in this encounterSelect Medical Trihealth Rehabilitation Hospital09-20-2022 Nurse Note* Tiny Mckoy LPN - 12/21/2021 1:20 PM EDT Additional intake questions: Has the patient had fever, nausea, vomiting, diarrhea, constipation, fatigue for > 1 week? Yes, fatigue Does the patient have a decreased appetite? No Does patient want to see a Unionmelt Operator? No (yes to any of above refer patient to schedulers for dietitian appointment) ) Does patient have any new or increased numbness or tingling of extremities? No Is patient interested in fertility information? No Does patient need any prescription refills? No Does patient have an advanced directive in place? No, Patient refused referral to Social Work or Resource Center documented in this encounterSelect Medical Trihealth Rehabilitation Hospital09-02-2022 Miscellaneous Notes* Telephone Encounter - Jaylene Jacobson RN - 12/03/2021 12:49 PM EDT Patient needs a follow up visit (no labs or scans) around 12/25/21. She accepted a visit on 12/21 at 1:30 pm. Jaylene Jacobson RN * Telephone Encounter - Mary Lindsay - 12/01/2021 4:45 PM EDT Ben Cruz is calling Debbie Echeverria MD today regarding 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 Patient called scheduling to schedule 6 mo follow up but was unable to get thru, so calling office for Dr. Echeverria to get it scheduled. Can she be called once appointment is made? Patient has been identified by name and birthdate. Requesting response back: [phone] (home) [phone] (cell) Mary Lindsay December 01, 2021 documented in this encounterSelect Medical Trihealth Rehabilitation Hospital05-23-2022 History of Present illness Narrative* Luis [...] an updated MRI in 6 months in [place] followed by a virtual visit for further meningioma surveillance, with additional surveillance plan to be developed thereafter. Zhanna Le MD Radiation Oncology Resident [id number] STAFF ADDENDUM I saw and evaluated the [...] brain. Luis Licona MD cc: Debbie Echeverria [id number] [facility] [id number] documented [facility] History of Present illness Narrative* Nidia [...] 23, 2021 12:14 PM documented in this encounter[facility] History of Present illness Narrative* Nazanin [...] 16, 2021 10:35 AM documented in this encounter[facility]22 History of Present illness Narrative* Barbara [...] TIME: 11:13 AM 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 note* Diagnosis Benign neoplasm of meninges (HCC)- Primary Benign neoplasm of cerebral meninges documented in this encounter [facility]* Diagnosis 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) documented in this encounter [facility] noteNo [facility] [employer] Other Evaluation note* Diagnosis Meningioma (HCC)- Primary Benign neoplasm of cerebral meninges documented in this encounter [facility]* Diagnosis Meningioma (HCC)- Primary Benign neoplasm of cerebral meninges documented in this encounter [facility]* Diagnosis Benign neoplasm of meninges (HCC)- Primary Benign neoplasm of cerebral meninges documented in this encounter [facility]* Diagnosis Benign neoplasm of meninges (HCC)- Primary Benign neoplasm of cerebral meninges documented in this encounter [facility]* Diagnosis Benign neoplasm of meninges (HCC)- Primary Benign neoplasm of cerebral meninges documented [facility]* Diagnosis Benign neoplasm of meninges (HCC)- Primary Benign neoplasm of cerebral meninges documented in this encounter 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 general Narrative - Reported* Type Description Date Medical History melanoma Surgical History laminectomy Surgical History c-sectionx 2 Surgical History hysterectomy Surgical History lump removed right wrist Surgical History melanoma removal [facility] Other History general Narrative - ReportedNort [employer] Other His[facility]osmarty general Narrative - Reported* Type Description Date Medical History melanoma Surgical History laminectomy Surgical History c-sectionx 2 Surgical History hysterectomy Surgical History lump removed right wrist Surgical History melanoma removal Surgical History Colonoscopy 03/2023 [facility] Other Hospital Discharge instructions No data available for this section General Surgery [facility] note No data available for this section General Surgery [facility] Reason for Referral Specialty Diagnoses / Procedures Referred By Selene lloyd Referred To Contact MR IMAGING Diagnoses Benign neoplasm of meninges (HCC) Procedures MRI BRAIN WO/W IVCON MRI BRAIN BRAIN STEM W/O W/[place] [address] [place] [address] Mr Imaging Referral ID Status Reason Start Date Expiration Date Visits Requested Visits Authorized [id number] Pending Review Auto-Generat ed Referral 08/23/2021 09/22/2022 1 1 Specialty Diagnoses / Procedures Referred By Selene lloyd Referred To Contact MR IMAGING Diagnoses Benign neoplasm of meninges (HCC) Procedures MRI BRAIN WO/W IVCON MRI BRAIN BRAIN STEM W/O W/CONTRAST MATERIAL Trista Bonilla APRN.FORESTRY ADVISER [address] [place] [address] Mr Imaging Referral ID Status Reason Start Date Expiration Date Visits Requested Visits Authorized [id number] Pending Review Auto-Generat ed Referral 08/29/2022 03/31/2023 1 1 Reason *FU 11/15 screenin g colonoscopy Diagnosis 1 Screen for colon can cer (Z12.11) Referral Organization [facility] Medical C elias Referring Provider First Name Lissett Referring Provider Last Name Gary Referring Provider Specialty Family [facility] cine Referred Organization [facility] Referred Provider Tucker Ann Referred Address [address], [place],[address] Referred Provider Specialty General Surg katelyn Referral Priority Routine General Notes Louise Livingston 10:47:05 AM >received today, attachments made, notes locked, referral faxed Clinical Notes F: [id number] Specialty Diagnoses / Procedures Referred By Contac t Referred To Contact MR IMAGING Diagnoses Benign neoplasm of meninges (HCC) Procedures MRI BRAIN LOCALIZATION W IVCON UNLISTED MAGNETIC RESONANCE PROCED Gurpreet Beckwith DO, PhD [address] [facility] [address] [place] [address] [place] [address] Referral ID Status Reason Start Date Expiration Date V isits Requested Visits Authorized [id number] Closed Auto-Generate d Referral 12/06/2022 1 1 Specialty Diagnoses / Procedures Referred By Contac t Referred To Contact MR IMAGING Diagnoses Benign neoplasm of meninges (HCC) Procedures MRI BRAIN WO/W IVCON MRI BRAIN BRAIN STEM W/O W/[place] [address] [place] [address] [place] [address] Referral ID Status Reason Start Date Expiration Date V isits Requested Visits Authorized [id number] Closed Auto-Generate d Referral 06/21/2021 09/18/2021 1 1 Specialty Diagnoses / Procedures Referred By Contac t Referred To Contact MR IMAGING Diagnoses 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) Liver lesion Procedures MRI LIVER WO/W IVCON MRI ABDOMEN W/O & W/[place] [address] [place] [address] [place] [address] Referral ID Status Reason Start Date Expiration Date V isits Requested Visits Authorized [id number] Closed Auto-Generate d Referral 05/20/2021 07/11/2021 1 1 Specialty Diagnoses / Procedures Referred By Contac t Referred To Contact MR IMAGING Diagnoses Benign neoplasm of meninges (HCC) Procedures MRI BRAIN WO/W IVCON MRI BRAIN BRAIN STEM W/O W/CONTRAST MATERIAL Trista Bonilla APRN.FORESTRY ADVISER [address] [place] [address] [place] [address] Referral ID Status Reason Start Date Expiration Date V isits Requested Visits Authorized [id number] Closed Auto-Generate d Referral 08/29/2022 03/31/2023 1 1 Referral ID Status Reason Start Date Expiration Date V isits Requested Visits Authorized [id number] Closed Auto-Generate d Referral 08/23/2021 03/20/2022 1 [...] or prosecute any alcohol or drug abuse patient.[facility] HospitalIn the event this information is protected by the Federal Confidentiality of Alcohol and Drug Abuse Patient Records regulations: The Federal rules restrict any use of the information to criminally investigate or prosecute any alcohol or drug abuse patient.[facility] HospitalIn the event this information is protected by the Federal Confidentiality of Alcohol and Drug Abuse Patient Records regulations: The Federal rules restrict any use of the information to criminally investigate or prosecute any alcohol or drug abuse patient.[facility] HospitalIn the event this information is protected by the Federal Confidentiality of Alcohol and Drug Abuse Patient Records regulations: The Federal rules restrict any use of the information to criminally investigate or prosecute any alcohol or drug abuse patient.[facility] HospitalIn the event this information is protected by the Federal Confidentiality of Alcohol and Drug Abuse Patient Records regulations: The Federal rules restrict any use of the information to criminally investigate or prosecute any alcohol or drug abuse patient.[facility] HospitalIn the event this information is protected by the Federal Confidentiality of Alcohol and Drug Abuse Patient Records regulations: The Federal rules restrict any use of the information to criminally investigate or prosecute any alcohol or drug abuse patient.[facility] HospitalIn the event this information is protected by the Federal Confidentiality of Alcohol and Drug Abuse Patient Records regulations: The Federal rules restrict any use of the information to criminally investigate or prosecute any alcohol or drug abuse patient.[facility] HospitalIn the event this information is protected by the Federal Confidentiality of Alcohol and Drug Abuse Patient Records regulations: The Federal rules restrict any use of the information to criminally investigate or prosecute any alcohol or drug abuse patient.[facility] HospitalIn the event this information is protected by the Federal Confidentiality of Alcohol and Drug Abuse Patient Records regulations: The Federal rules restrict any use of the information to criminally investigate or prosecute any alcohol or drug abuse patient.[facility] HospitalIn the event this information is protected by the Federal Confidentiality of Alcohol and Drug Abuse Patient Records regulations: The Federal rules restrict any use of the information to criminally investigate or prosecute any alcohol or drug abuse patient.[facility] HospitalIn the event this information is protected by the Federal Confidentiality of Alcohol and Drug Abuse Patient Records regulations: The Federal rules restrict any use of the information to criminally investigate or prosecute any alcohol or drug abuse patient.[facility] HospitalIn the event this information is protected by the Federal Confidentiality of Alcohol and Drug Abuse Patient Records regulations: The Federal rules restrict any use of the information to criminally investigate or prosecute any alcohol or drug abuse patient.[facility] HospitalIn the event this information is protected by the Federal Confidentiality of Alcohol and Drug Abuse Patient Records regulations: The Federal rules restrict any use of the information to criminally investigate or prosecute any alcohol or drug abuse patient.[facility] HospitalIn the event this information is protected by the Federal Confidentiality of Alcohol and Drug Abuse Patient Records regulations: The Federal rules restrict any use of the information to criminally investigate or prosecute any alcohol or drug abuse patient.[facility] HospitalIn the event this information is protected by the Federal Confidentiality of Alcohol and Drug Abuse Patient Records regulations: The Federal rules restrict any use of the information to criminally investigate or prosecute any alcohol or drug abuse patient.[facility] HospitalIn the event this information is protected by the Federal Confidentiality of Alcohol and Drug Abuse Patient Records regulations: The Federal rules restrict any use of the information to criminally investigate or prosecute any alcohol or drug abuse patient.[facility] HospitalIn the event this information is protected by the Federal Confidentiality of Alcohol and Drug Abuse Patient Records regulations: The Federal rules restrict any use of the information to criminally investigate or prosecute any alcohol or drug abuse patient.[facility] HospitalIn the event this information is protected by the Federal Confidentiality of Alcohol and Drug Abuse Patient Records regulations: The Federal rules restrict any use of the information to criminally investigate or prosecute any alcohol or drug abuse patient.[facility] HospitalIn the event this information is protected by the Federal Confidentiality of Alcohol and Drug Abuse Patient Records regulations: The Federal rules restrict any use of the information to criminally investigate or prosecute any alcohol or drug abuse patient.[facility] HospitalIn the event this information is protected by the Federal Confidentiality of Alcohol and Drug Abuse Patient Records regulations: The Federal rules restrict any use of the information to criminally investigate or prosecute any alcohol or drug abuse patient.[facility] HospitalIn the event this information is protected by the Federal Confidentiality of Alcohol and Drug Abuse Patient Records regulations: The Federal rules restrict any use of the information to criminally investigate or prosecute any alcohol or drug abuse patient.[facility] HospitalIn the event this information is protected by the Federal Confidentiality of Alcohol and Drug Abuse Patient Records regulations: The Federal rules restrict any use of the information to criminally investigate or prosecute any alcohol or drug abuse patient.[facility] HospitalIn the event this information is protected by the Federal Confidentiality of Alcohol and Drug Abuse Patient Records regulations: The Federal rules restrict any use of the information to criminally investigate or prosecute any alcohol or drug abuse patient.[facility] HospitalIn the event this information is protected by the Federal Confidentiality of Alcohol and Drug Abuse Patient Records regulations: The Federal rules restrict any use of the information to criminally investigate or prosecute any alcohol or drug abuse patient.[facility] HospitalIn the event this information is protected by the Federal Confidentiality of Alcohol and Drug Abuse Patient Records regulations: The Federal rules restrict any use of the information to criminally investigate or prosecute any alcohol or drug abuse patient.[facility] HospitalIn the event this information is protected by the Federal Confidentiality of Alcohol and Drug Abuse Patient Records regulations: The Federal rules restrict any use of the information to criminally investigate or prosecute any alcohol or drug abuse patient.[facility] Reason for Visit (unrecogniz ed section [...] COMPLEX CRANIAL LESION [facility] [address] [id number] Referral ID Status Reason Start Date Expiration Date Visits Re quested Visits Authorized [id number] [address] Specialty Diagnoses / Procedures [facility] Referred To Contact ADMITTING Diagnoses Benign neoplasm of meninges (HCC) Procedures RADIATION DELIVERY STEREOTACTIC CRANIAL [place] STEREOTACTIC RADIOSURGERY 1 COMPLEX CRANIAL LES RADIATION [place] STEREOTACTIC RADIOSURGERY (SRS) [place] CRANIAL LESION(S) 1 SESSION MULTI-SOURCE [place] STEREOTACTIC RADIOSURGERY 1 COMPLEX CRANIAL LESION [facility] [address] [id number] Reason Comments Recheck 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 Comments Established Patient Reason Comments Established Patient Reason Comments Recheck Reason Comments Consult GK consult for LF me ningioma Reason Comments 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 Reason Comments Procedure GKRS Reason Comments Radiology MRI Specialty Diagnoses / Procedures [facility] Referred To Contact MR IMAGING Diagnoses 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) New daily persistent headache Other headache syndrome Procedures MRI BRAIN WO/W IVCON MRI BRAIN BRAIN STEM W/O W/CONTRAST MATERIAL Debbie Echeverria MD [address] [place], [place] [address] Mr [facility] [place] [address] Referral ID Status Reason Start Date Expiration Date V isits Requested Visits Authorized [id number] Closed Auto-Generate d Referral 04/29/2021 06/13/2021 1 1 Specialty Diagnoses / Procedures Referred By Contac t Referred To Contact MR IMAGING Diagnoses Benign neoplasm of meninges (HCC) Procedures MRI BRAIN WO/W IVCON MRI BRAIN BRAIN STEM W/O W/CONTRAST MATERIAL Luis Licona MD [address] [place] [address] Mr Imaging [place] [address] Referral ID Status Reason Start Date Expiration Date V isits Requested Visits Authorized [id number] Closed Auto-Generate d Referral 06/21/2021 09/18/2021 1 1 Specialty Diagnoses / Procedures Referred By Contac t Referred To Contact MR IMAGING Diagnoses 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) Liver lesion Procedures MRI LIVER WO/W IVCON MRI ABDOMEN W/O & W/CONTRAST MATERIAL Debbie Echeverria MD [address] [place], [place] [address] Mr [facility] [place] [address] Referral ID Status Reason Start Date Expiration Date V isits Requested Visits Authorized [id number] Closed Auto-Generate d Referral 05/20/2021 07/11/2021 1 1 Specialty Diagnoses / Procedures Referred By Contac t Referred To Contact MR IMAGING Diagnoses Benign neoplasm of meninges (HCC) Procedures MRI BRAIN WO/W IVCON MRI BRAIN BRAIN STEM W/O W/CONTRAST MATERIAL Trista Bonilla APRN.CNP [address] [place], [place] [address] Mr [facility] [place] [address] Referral ID Status Reason Start Date Expiration Date V isits Requested Visits Authorized [id number] Closed Auto-Generate d Referral 08/29/2022 03/31/2023 1 1 Referral ID Status Reason Start Date Expiration Date V isits Requested Visits Authorized [id number] Closed Auto-Generate d Referral 08/23/2021 03/20/2022 1 1 Reason Comments Gamma Knife Follow-up INFORMATION SOURCE (unrecogn ized section and content) DATE CREATED AUTHOR 06/10/2022 [facility] DATE CREATED AUTHOR AUTHOR'S ORGANIZ ATION 09/15/2022 [facility] DATE CREATED AUTHOR AUTHOR'S ORGANIZ ATION 02/04/2023 [facility] DATE CREATED AUTHOR AUTHOR'S ORGANIZ ATION 02/08/2023 [facility] DATE CREATED AUTHOR AUTHOR'S ORGANIZ ATION 03/30/2023 [facility] Care Teams (unrecognized sec tion and content) Maintenance Supervisor 2Nd Shift Relationship Specialty Start Date End Date Lissett Vega MD [address] [place] [address] PCP - General Family Medicine 01/17/23 Maintenance Supervisor 2Nd Shift Relationship Specialty Start Date End Date Lissett Vega MD [address] [place] [place] [address] PCP - General Family Medicine 01/17/23 Maintenance Supervisor 2Nd Shift Relationship Specialty Start Date End Date Lissett Vega MD [address] [place] [place] [address] PCP - General Family Medicine 01/17/23 Maintenance Supervisor 2Nd Shift Relationship Specialty Start Date End Date Lissett Vega MD [address] [place] [place] [address] PCP - General Family Medicine 01/17/23 Maintenance Supervisor 2Nd Shift Relationship Specialty Start Date End Date Lissett Vega MD [address] [place] [place] [address] PCP - General Family Medicine 01/17/23 Maintenance Supervisor 2Nd Shift Relationship Specialty Start Date End Date Lissett Vega MD [address] [place] [phone] PCP - General Family Medicine 01/17/23 FOR [...] BE BASED ON THE PRIMARY CLINICAL RECORDS. [facility] [employer] [facility]. provides no warranty or guarantee of the accuracy or completeness of information in this document.
== END 2023-04-20 13:09 | disposition home or self-care (01) ==
LOC: RAD 13:08
PROVIDERS: PCP Family Medicine; Visit Provider Physician Assistant
DX: M79.672 Pain in left foot (principal); Z98.890 Other specified postprocedural states
CPT/HCPCS: 73630

== ENCOUNTER 2023-05-11 10:27 | Outpatient (OUT) | payer OTHER, SELFPAY ==
--- NOTE | 2023-05-11 | XR_ITS ---
The [address] [address] Patient Name: BEN TABOR MRN: [id number] date: 1975 Sex: F Assigned Patient Location: [facility] Current Patient Location: [facility] Accession/Order Number: [id number] Exam Date: 05/11/2023 10:36 Report Date: 05/11/2023 12:28 At the request of: JANE SALAZAR Procedure: XR foot LT min 3V PROCEDURE: XR foot LT min 3V COMPARISON: 04/20/2023 HISTORY: LEFT FOOT PAIN FINDINGS: BONES:Stable posterior calcaneal osteotomy transfixed with 2 cannulated screws. Remote shave osteotomy lateral head of the fifth metatarsal. Remote resection head of the fifth proximal phalanx No new fracture or dislocation SOFT TISSUES:Negative. No visible soft tissue swelling. EFFUSION:None visible. OTHER: Negative. XR/XR foot LT min 3V IMPRESSION: Stable postsurgical changes Electronically authenticated by: ZHANNA DELONG Date: 05/11/2023 12:28
== END 2023-05-11 10:28 | disposition home or self-care (01) ==
LOC: RAD 10:27
PROVIDERS: PCP Family Medicine; Visit Provider Physician Assistant
DX: M79.672 Pain in left foot (principal); Z98.890 Other specified postprocedural states
CPT/HCPCS: 73630

== ENCOUNTER 2023-05-31 10:21 | Outpatient (OUT) | payer OTHER, SELFPAY ==
--- NOTE | 2023-05-31 | XR_ITS ---
The [address] [address] Patient Name: BEN TABOR MRN: [id number] date: 1975 Sex: F Assigned Patient Location: Current Patient Location: Accession/Order Number: [id number] Exam Date: 05/31/2023 10:21 Report Date: 05/31/2023 10:51 At the request of: ALEKSANDER FALCON Procedure: XR foot LT min 3V PROCEDURE: XR foot LT min 3V COMPARISON: 05/11/2023 HISTORY: LEFT FOOT PAIN FINDINGS: BONES:Stable posterior calcaneal osteotomy transfixed with 2 screws. Shave osteotomy lateral head of the fifth metatarsal. Likely resection head of the fifth proximal phalanx. Mild permeative pattern of the bones could represent osteopenia SOFT TISSUES:Negative. No visible soft tissue swelling. EFFUSION:None visible. OTHER: Negative. XR/XR foot LT min 3V IMPRESSION: Stable exam Electronically authenticated by: ZHANNA DELONG Date: 05/31/2023 10:51
== END 2023-05-31 10:22 | disposition home or self-care (01) ==
LOC: EC 10:21
PROVIDERS: PCP Family Medicine; Visit Provider Podiatrist Foot & Ankle Surgery
DX: M79.672 Pain in left foot (principal)
CPT/HCPCS: 73630

== ENCOUNTER 2023-06-07 07:58 | Outpatient (OUT) | payer OTHER, SELFPAY ==
--- OUTSIDE RECORDS SUMMARY | 2023-06-07 08:01 | XMS_ITS | CCD ---
Author Name Unknown Address [address] [facility] [address] [place] [address] Organization [facility] Care Team Providers Care Still Operator Batch Or Continuous Name Role Phone Unavailable Primary Care Provider Jacqueline VEGA, DR LISSETT Fung Admitting Unavailable GARY, DR LISSETT Fung Attending Unavailable GARY, DR LISSETT Fung Primary Care Unavailable [facility], DR MONCADA Consulting Unavailable GARY, DR LISSETT Fung Consulting Unavailable GARY, DR LISSETT Fung Admitting Unavailable GARY, DR LISSETT Fung Attending Unavailable GARY, DR LISSETT Fung Primary Care Unavailable VEGA, DR LISSETT Fung Consulting Unavailable KARASIK ., DR MERLOS Admitting Unavailabl e KARASIK ., DR MERLOS Attending Unavaildipika VEGA, DR LISSETT Fung Primary Care Unavailable KARASIK ., DR MERLOS Consulting Unavailabl e KARASIK ., DR MERLOS Admitting Unavailabl e KARASIK ., DR MERLOS Attending Unavaildipika VEGA, DR LISSETT Fung Primary Care Unavailable KARASIK ., DR MERLOS Consulting Unavaildipika e WEST, DR ZHANNA Judd Consulting Unavailable GARY, DR LISSETT Fung Admitting Unavailable GARY, DR LISSETT Fung Attending Unavailable GARY, DR LISSETT Fung Primary Care Unavailable VEGA, DR LISSETT Fung Consulting Unavailable Unavailable Primary Care Provider Lissett Cavanaugh Unavailable Lissett Vega MD Primary Care Provider [phone] LISSETT VEGA Primary Care Physician Debbie DE LOS SANTOS Attending Unavailable Debbie DE LOS SANTOS Attending Unavailable DEBBIE ECHEVERRIA Referring Unavailable DEBBIE ECHEVERRIA Attending Unavailable GURPREET BECKWITH Referring Unavailable LISSETT VEGA Primary Care Unavailable BURAK PRAKASH Attending Unavailable LISSETT VEGA Primary Care Unavailable BURAK PRAKASH Attending Unavailable LISSETT VEGA Primary Care Unavailable GURPREET BECKWITH Attending Unavailable BECKWITH, GURPREET Admitting Unavailable BECKWITH, GURPREET Referring Unavailable VEGA, LISSETT E Primary Care Unavailable BECKWITH, GURPREET Attending Unavailable BECKWITH, GURPREET Admitting Unavailable BECKWITH, GURPREET Referring Unavailable VEGA, LISSETT E Primary Care Unavailable BECKWITH, GURPREET Attending Unavailable BECKWITH, GURPREET Admitting Unavailable BECKWITH, GURPREET Referring Unavailable BECKWITH, GURPREET Admitting Unavailable BECKWITH, GURPREET Referring Unavailable BECKWITH, GURPREET Attending Unavailable VEGA, LISSETT E Primary Care Unavailable DEBBIE ECHEVERRIA Attending Unavailable TANG, GURPREET Attending Unavailable LUIS LICONA Attending Unavailable DEBBIE ECHEVERRIA Referring Unavailable DEBBIE ECHEVERRIA Referring Unavailable TRISTA BONILLA Attending Unavailable CHAD, TRISTA Referring Unavailable VETO SHIN Attending Unavailable Jes Vieira Admitting Unavailable Jes Vieira Attending Unavailable Vega, Lsisett E Primary Care Unavailable Vega, Lissett E Primary Care Unavailable Taz Rossi Admitting Unavailable Taz Rossi Attending Unavailable Allergies Allergy Classification Reported Allergen(s) Allergy Type Date of Onset Reaction(s) Facility (5 sources) patient allergy list reviewed by nurse or physicia Propensity to adverse reactions 7 Comment:Done Reviews42 Other (5 sources) Allergies Reconciled Propensity to adverse reactions Unknown Reviews42 Other (1 source) No Known Medication Allergies; Translations: [No Known Medication Allergies] Propensity to adverse reactions (disorder) [facility] Repository Medications Current Medications Medication Drug Class(es) Dates Sig (Normalized) Sig (Original) 1.5 ML inclisiran 189 MG/ML Prefilled Syringe [Leqvio] (5 sources) Start: 02-01-2023 Leqvio 284 mg/1.5 mL subcutaneous solution 0 Refill(s), Refills(s) 0 Start Date: 02/01/23 Status: Ordered Leqvio 284 MG/1. 5ML as directed Subcutaneous Active ciprofloxacin 500 mg oral tablet (2 sources) Quinolone Antimicrobial take 1 tablet by mouth [...] link leqvio 284 mg/1.5ml solution prefilled syringe (3 sources) Leqvio 284 MG/1. 5ML as directed [...] MRI tamsulosin hydrochloride 0.4 mg oral capsule (3 sources) alpha-Adrenergic Ivan take 1 capsule by mouth every twenty-four hours Flomax 0.4 MG 1 capsule Orally Once a day for 7 days Active Completed/Discontinued Medications Medication Drug Class(es) Dates Sig (Normalized) Sig (Original) dexamethasone 4 mg oral tablet (8 sources) Corticosteroid Start: 01-28-2023 dexAMETHasone (DECADRON) 4 [...] stop Decadron famotidine 20 mg oral tablet (8 sources) Histamine-2 Receptor Antagonist Start: take 1 [...] tablet (20 sources) Nonsteroidal Anti-inflammatory Drug Start: 08-31-20 22 meloxicam (MOBIC) 15 mg tablet omeprazole 20 mg delayed release oral capsule (20 sources) Proton Pump Inhibitor take 1 capsule by mouth once daily omeprazole (PRILOSEC) 20 mg capsule Take 20 mg by mouth once daily. 0 Active Comment on above: Take 20 mg by mouth once daily. rosuvastatin calcium 10 mg oral tablet (2 sources) HMG-CoA Reductase Inhibitor End: 06-22-19 22 take 1 tablet by mouth once daily rosuvastatin (CRESTOR) 10 mg tablet Take 10 mg by mouth once daily. 0 06/21/2021 Discontinued (Other) Comment on above: Take 10 mg by mouth once daily. Problems Active Problems Problem Classification Problem Date Documented Date Episodic/Chronic Abdominal pain (2 sources) Left lower quadrant pain Episodic Cancer; other and unspecified primary (1 source) H/O Malignant melanoma 02-01-2023 Episodic Disorders of lipid metabolism (20 sources) Pure hypercholesterolemia, unspecified; Translations: [Hyperlipidemia] Onset: 03-23-2015 Resolved: 02-01-2023 Chronic Esophageal disorders (5 sources) Esophageal reflux finding; Translations: [Esophageal reflux] Chronic Genitourinary symptoms and ill-defined conditions (7 sources) Dysuria; Translations: [Dysuria] Onset: 08-23-2018 Episodic Inflammation; infection of eye (except that caused by tuberculosis or sexually transmitteddisease) (5 sources) External hordeolum; Translations: [Hordeolum externum unspecified eye, unspecified eyelid] Episodic Melanomas of skin (4 sources) Malignant melanoma of trunk; Translations: [Malignant melanoma of other part of trunk] Chronic Neoplasms of unspecified nature or uncertain behavior (1 source) Neoplasm of meninges 02-17-2023 Episodic Nonmalignant breast conditions (5 sources) Disorder of breast; Translations: [Other specified [...] (HCC)] Onset: 01-27-2023 Chronic Other circulatory disease (5 sources) Elevated blood-pressure reading without diagnosis of hypertension; Translations: [Elevated blood-pressure reading, without diagnosis of hypertension] Episodic Other connective tissue disease (1 source) Plantar fascial fibromatosis Episodic Other connective tissue disease (5 sources) Spasm; Translations: [Other muscle spasm] Episodic Other connective tissue disease (5 sources) Pain in left foot; Translations: [Pain in left foot] Episodic Other liver diseases (1 source) Lesion of liver; Translations: [Liver disease, unspecified] 06-16-2021 Chronic Other non-traumatic joint disorders (5 sources) Disorder of bursa of shoulder region; Translations: [Unspecified disorders of bursae and tendons in shoulder region] Episodic Other non-traumatic joint disorders (5 sources) Shoulder joint pain; Translations: [Pain in unspecified shoulder] Episodic Other nutritional; endocrine; and metabolic disorders (8 sources) Body mass index 30+ - obesity; Translations: [Body mass index (BMI) 36.0-36.9, adult] 02-17-2023 Chronic Other nutritional; endocrine; and metabolic disorders (7 sources) Obesity caused by energy imbalance; Translations: [...] nutritional; endocrine; and metabolic disorders (5 sources) Obese class I; Translations: [Body mass index 34.0-34.9, adult] Onset: 11-03-2016 Chronic Other nutritional; endocrine; and metabolic disorders (1 source) Morbid obesity 02-01-2023 Chronic Other screening for suspected conditions (not mental disorders or infectious disease) (15 sources) Encounter for screening for malignant neoplasm of cervix; Translations: [Encounter for screening mammogram for malignant neoplasm of breast] Onset: 09-08-2021 Episodic Residual codes; unclassified (5 sources) Acquired absence of genital organ; Translations: [Acquired absence of other genital organ(s)] Episodic Spondylosis; intervertebral disc disorders; other back problems (5 sources) Displacement of lumbar intervertebral disc without myelopathy; Translations: [Other intervertebral disc displacement, lumbar region] Chronic Sprains and strains (5 sources) Sprain of shoulder and upper arm; Translations: [Sprain and strain of unspecified site of shoulder and upper arm] Episodic Unclassified (1 source) Patient encounter status 02-01-2023 Unclassified (1 source) Encounter for other preprocedural examination; Translations: [Encounter for other preprocedural examination] Onset: 09-12-2022 Viral infection (5 sources) Disease caused by 2019-nCoV; Translations: [COVID-19] Past or Other Problems Problem Classification Problem Date Documented Date Episodic/Chronic Immunizations and screening for infectious disease (1 source) Encounter for screening for human papillomavirus (HPV); Translations: [ENC SCREENING HUMAN PAPILLOMAVIRUS] Onset: 09-15-2021 Episodic Menstrual disorders (10 sources) Excessive and frequent menstruation; Translations: [Excessive and frequent menstruation with regular cycle] Resolved: 09-16-2019 Chronic Noninfectious gastroenteritis (5 sources) Non-infective enteritis and colitis; Translations: [Noninfective gastroenteritis and colitis, unspecified] Onset: 02-26-2014 Episodic Other aftercare (5 sources) Surgical follow-up; Translations: [Surgery follow-up examination] Onset: 08-22-2007 Resolved: 09-02-2019 Episodic Other aftercare (5 sources) History and physical examination, follow-up; Translations: [Encounter for follow-up examination after completed treatment for conditions other than malignant neoplasm] Resolved: 09-08-2020 Episodic Other connective tissue disease (5 sources) Disorder of soft tissue; Translations: [Other specified soft tissue disorders] Resolved: 09-08-2020 Episodic Other female genital disorders (5 sources) Abnormal uterine bleeding; Translations: [Abnormal uterine and vaginal bleeding, unspecified] Resolved: 09-16-2019 Chronic Other female genital disorders (5 sources) Hypertrophy of uterus; Translations: [Hypertrophy of uterus] Resolved: 09-16-2019 Episodic Other nutritional; endocrine; and metabolic disorders (5 sources) Obesity; Translations: [Obesity, unspecified] Resolved: 09-08-2020 Chronic Other skin disorders (5 sources) Disorder of skin and/or subcutaneous tissue; Translations: [Unspecified disorder of skin and subcutaneous tissue] Onset: 09-14-2018 Episodic Otitis media and related conditions (5 sources) Eustachian tube salpingitis; Translations: [Unspecified Eustachian salpingitis, bilateral] Onset: 11-03-2016 Episodic Residual codes; unclassified (1 source) Family history of malignant neoplasm of breast; Translations: [FAMILY HX MALIG NEOPLASM OF BREAST] Onset: 09-11-2021 Episodic Residual codes; unclassified (1 source) Family history of malignant neoplasm of other organs or systems; Translations: [FAM HX MALIG NEOPLASM OTH ORGN/SYS] Onset: 09-11-2021 Episodic Superficial injury; contusion (5 sources) Contusion of right foot; Translations: [Contusion of right foot, initial encounter] Onset: 11-03-2016 Episodic Unclassified (5 sources) Other symptoms referable to forearm joint; Translations: [Other symptoms referable to forearm joint] Onset: 10-14-2015 Unclassified (5 sources) Long-term current use of drug therapy; Translations: [Long-term (current) use of other medications] Onset: 09-22-2015 Results Test Name Value Interpretation Reference Range Facility [facility] 05-12-2023 [facility] Letter Text [facility] ([facility]) BEN CRUZ ([id number]) 1975 F Date Time Provider Department 05/12/23 GURPREET BECKWITH [facility] During your visit today, we recorded the following information about you: Marli Patino 05/12/2023 9:28 AM Signed Per Johann (BIGG)-via email: This patient had GK in January and their follow up MRI and appointment was never scheduled. She needs an MRI at [facility] and follow up same day with Ce piña. Schedule this for September please. Appointments scheduled. Mychart and letter sent. Marli Patino Allergies As of Date: 05/12/2023 (No Known Allergies) Date Reviewed: 01/27/2023 Reviewed by: Anton Terrell, BIGG - Fully Assessed Reason for Visit: Appointment [[id number]] Cmt: Ce Piña Prescriptions as of 05/12/2023 - dexAMETHasone (DECADRON) 4 mg tablet Start [...] once daily. 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 Her appointments have not been scheduled yet. I will send a new request to scheduling. Allergies As of Date: 05/11/2023 (No Known Allergies) Date Reviewed: 01/27/2023 Reviewed by: Anton Terrell, BIGG - Fully Assessed Reason for Visit: Patient Question [7347] Prescriptions as of 05/11/2023 - dexAMETHasone (DECADRON) 4 mg tablet Start [...] once daily. 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 [facility] Consent for Procedure/Surger yon 02-21-2023 Consent for Procedure/Surgery [id number]. 00TIFF [facility] Facesheeton 02-20-2023 Facesheet [id number]. 00TIFF [facility] Ambulatory Visit Summaryon 1 04-19-2022 Ambulatory Visit Summary SHARONAMAGBEN L :1975 Visit Date:02/17/2023 Ambulatory Visit Instructions Your [...] you for choosing us for your care. [facility] 02-07-2023 [facility] Telephone ([facility]) BEN CRUZ ([id number]) 1975 F Date Time Provider Department 02/07/23 JOHANN HENRIQUEZ [facility] During your visit today, we recorded the following information about you: Johann Henriquez, BIGG 02/07/2023 3:50 PM Meagan Balderrama returned my call about follow-up from on [...] Encounter Status:Closed by JOHANN HENRIQUEZ on 02/07/23 [facility] 02-06-2023 [facility] BEN CRUZ ([id number]) 1975 F Date Time Provider Department 02/06/23 JOHANN HENRIQUEZ [facility] During your visit today, we recorded the following information about you: Johann Henriquez RN 02/06/2023 1:20 PM Signed Calling Ben for post-GKRS follow-up. Unable to reach at this time. Left voicemail. Johann Henriquez RN 02/07/2023 1:19 PM Signed 2nd attempt to reach out, patient unavailable. Will send [employer] message with contact information to call if she is experiencing any symptoms or has any concerns since gamma knife treatment. Allergies As of Date: 02/06/2023 (No Known Allergies) Date Reviewed: 01/27/2023 Reviewed by: Anton Terrell, BIGG - Fully Assessed Reason for Visit: Gamma [...] Encounter Status:Closed by JOHANN HENRIQUEZ on 02/07/23 [facility] CNOPon 01-27-2023 CN Operative Note (Enc) ([facility]) Encounter Status:Closed by GURPREET BECKWITH on 01/27/23 [facility] Operative Note (Enc) ([facility]SCAMN) Encounter Status:Closed by GURPREET BECKWITH on 01/27/23 [facility] CNOVon 01-27-2023 CNOV Office Visit ([facility] ) BEN CRUZ ([id number]) 1975 F Date Time Provider Department 01/27/23 [...] 7.1 AL (more content not included)... [facility] CN Office Visit (NOGJAD ) BEN CRUZ ([id number]) 1975 F Date Time Provider Department 01/27/23 8:30 AM [facility] During your visit today, we [...] Patient's Age: 47 Menstruation Status: [place] [facility] [place]: N/A test not performed QC: Yes, testing is valid (or protocol followed for invalid testing). Reference range: Normal Value = Negative for hCG. POC performed by: Gayle Acevedo RN 0941 4 mg Decadron PO given prior to GKRS per order of Dr. Virgil Beckwith 0946 GKRS start time. 1016 GKRS end time. 1025 Discharge instructions given to patient; instructions reviewed by this RN; patient/family verbalized understanding; patient discharged via/with BIGG Segura Kaitlin, RN 01/27/2023 8:35 AM Addendum [facility] Gamma Knife [facility] Discharge Instructions As with [...] a physician or hospital other than the [facility] with any problem [...] may your physician, Dr. Virgil Beckwith at [phone] Monday through Monday 8:00 am to 5:00 pm, or call the Gamma Knife nurse Monday through Monday 8:00 am to 4:00 pm at [phone]. In the evening or on weekends, call [phone] or toll-free [phone] and ask the blanchard grinder operator to page your neurosurgeon's resident operational trainer. Referring Provider: GURPREET BECKWITH [[id number]] Allergies As [...] [D32.9] 01/27/2023 Other instructions from your clinician: [facility] Discharge Instructions As with any surgery there are risks and potential side effects. Th (more content not included)... [facility] CT BRAIN WO IVCONon 01-28-20 CT [...] were required COMPARISON: Concurrent brain MRI RESULT: Blast Furnace Helper (topogram) images: No additional findings. Post-operative change: [...] OF EXTRA-AXIAL ENHANCING TISSUE SEEN ON MRI House Painter: TORI Transcribe Date/Time: Jan 27 2023 8:21A Dictated by : ESTUARDO WHALEY MD This examination was interpreted and the report reviewed and electronically signed by: ESTUARDO WHALEY MD on Jan 27 2023 8:23AM EST [id number] Normal [facility] MRI BRAIN LOCAL W IVCONon MRI BRAIN [...] FRONTAL LOBE, UNCHANGED GOING BACK TO 06/01/2021 House Painter: PSCB Transcribe Date/Time: Jan 27 2023 8:08A Dictated by : ESTUARDO WHALEY MD This examination was interpreted and the report reviewed and electronically signed by: ESTUARDO WHALEY MD on Jan 27 2023 8:20AM EST [id number] [facility] MRI BRAIN LOCALIZATION W IVC ONon 01-27-2023 [facility] Physician Referralon 023 Physician Referral [id number] 00 [id number] 0TIFF Normal [facility] Physician Referralon 023 Physician Referral [id number] 00 [id number] [facility] CNOVSPon 12-22-2022 CNOVSP Visit (SP) Office (HEMCA3) BEN CRUZ ([id number]) 1975 F Date Time Provider Department 12/22/22 [...] were negative. Declined an adjuvant trial in saxis. Baseline imaging today is negative CC: Melanoma [...] No Does patient want to see a Veterinary Medical Officer? No (yes to any of above refer [...] for Encounter Date Provider Department Center 12/22/2022 [id number] ECHEVERRIA [facility] [place] [facility] Prescriptions as [...] No Does patient want to see a Veterinary Medical Officer? No (yes to any of above refer patient to schedulers for dietitian appointment) ) Does patient have any new or increased numbness or tingling of extremities? No Is patient interested in fertility information? No Does patient need any prescription refills? No Does patient have an advanced directive in place? No, Patient refused referral to Social Work or Resource Center [facility] 11-15-2022 [facility] ([facility]) BEN CRUZ ([id number]) 1975 F Date Time Provider Department 11/15/22 BETZY HEARD [facility] During your visit today, we recorded the following information about you: Betzy Heard, BIGG 11/15/2022 2:04 PM Signed Calling Ben to follow up on [employer] message about scheduling gamma knife for 01/27/2023 No answer, left message stating that I'll go ahead and place the GK orders. Reminded to disregard ANY appointment times she sees in [employer], any automated text reminders or automated phone calls for 01/27/23 She will receive a call from the GK nurse or radiation therapist the day before with her arrival time. If she has any questions, I left office phone # for call back or she can send a [employer] message. I will send out a GK folder with additional information related to Mask Based Gamma Knife Radiosurgery Betzy Heard RN, BSN Room Worker [facility] Allergies As of Date: 11/15/2022 (No Known Allergies) Date Reviewed: 10/19/2022 Reviewed by: Trista Bonilla APRN.[facility] - Fully Assessed Reason for Visit: Room Worker - Other [[id number]] Cmt: Schedule gamma knife 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 Prescriptions as of 11/15/2022 - meloxicam (MOBIC) 15 mg tablet - inclisiran (LEQVIO) 284 mg/1.5 mL injection - omeprazole (PRILOSEC) 20 mg capsule Take 20 mg by mouth once daily. Problem List As Of Date: 11/15/2022 (None) Encounter Status:Closed by BETZY HEARD on 11/15/[address] [facility] BEN CRUZ ([id number]) 1975 F Date Time Provider Department 10/20/22 BETZY HEARD [facility] During your visit today, we recorded the following information about you: Betzy Heard, RN 10/20/2022 11:56 AM Signed Time Frame: As soon as can be scheduled - can be virtual or in clinic Orders: n/a Provider: Tang Referring: Pelon Diagnosis: meningioma Allergies As of Date: 10/20/2022 (No Known Allergies) Date Reviewed: 10/19/2022 Reviewed by: Trista Bonilla APRN.[facility] - Fully Assessed Reason for Visit: GIN - new pt consult with Dr. Beckwith [Other] Prescriptions as of 11/10/2022 - meloxicam (MOBIC) 15 mg tablet - inclisiran (LEQVIO) 284 mg/1.5 mL injection - omeprazole (PRILOSEC) 20 mg capsule Take 20 mg by mouth once daily. Problem List As Of Date: 10/20/2022 (None) Encounter Status:Closed by BETZY HEARD on 11/10/22 [facility] MRI BRAIN WO/W IVCONon 10-17 MRI BRAIN WO/W IVCON * * *Final Report* * * DATE OF EXAM: Oct 17 2022 11:20AM [facility] 0295 - MRI BRAIN WO/W IVCON [...] with air-fluid level suggestive of acute/active sinusitis. House Painter: TORI Transcribe Date/Time: Oct 17 2022 11:35A Dictated by : CHUCKY BRAY MD This examination was interpreted and the report reviewed and electronically signed by: CHUCKY BRAY MD on Oct 17 2022 11:45AM EST [id number] Normal [facility] Complete Blood Count Auto Di ffon 09-12-2022 Basophils (Bld) [#/Vol] 0.1 10*3/uL Normal 0.0-0.2 [facility] Comment on above: Result Comment: PERF ORMED BY: [place] [address] PATHOLOGIST COLOR MAKER ARNULFO STYLES M.D. Performed By: #### C #### [address] Basophils/100 WBC (Bld) 0.7 % Normal . [facility] Comment on above: Performed By: #### C BC #### [facility] [address] Eosinophils (Bld) [#/Vol] 0.2 10*3/uL Normal 0.0-0.45 [facility] Comment on above: Performed By: #### C BC #### [facility] [address] Eosinophils/100 WBC (Bld) 2.7 % Normal . [facility] [facility] Comment on above: Performed By: #### C BC #### [address] Erythrocyte distribution width (RBC) [Ratio] 12.9 % Normal 11.9-15.3 [facility] Comment on above: Performed By: #### C BC #### [address] Hematocrit (Bld) [Volume fraction] 41.8 % Normal 34.0-46.4 [facility] Comment on above: Performed By: #### C BC #### [address] Hemoglobin (Bld) [Mass/Vol] 14.3 g/dL Normal 11.8-15.4 [facility] Comment on above: Performed By: #### C BC #### [place] [address] [place] Lymphocytes (Bld) [#/Vol] 2.0 10*3/uL Normal 1.00-4.8 [facility] Comment on above: Performed By: #### C BC #### [address] Lymphocytes/100 WBC (Bld) 25.3 % Normal . [facility] Comment on above: Performed By: #### C BC #### [address] MCH (RBC) [Entitic mass] 29.8 pg Normal 24.7-34.3 [facility] Comment on above: Performed By: #### C BC #### [facility] [address] MCV (RBC) [Entitic vol] 87.2 fL Normal 80-100 [facility] Comment on above: Performed By: #### C BC #### [facility] [address] Mean Corpuscular HGB Conc 34.2 g/dL Normal 32.0-35.0 [facility] Comment on above: Performed By: #### C BC #### [facility] [address] Monocytes (Bld) [#/Vol] 0.7 10*3/uL Normal 0.0-0.8 [facility] Comment on above: Performed By: #### C BC #### [facility] [address] Monocytes/100 WBC (Bld) 9.1 % Normal . [facility] Comment on above: Performed By: #### C BC #### [address] Neutrophils (Bld) [#/Vol] 4.8 10*3/uL Normal 1.8-7.7 [facility] Comment on above: Performed By: #### C BC #### [address] Neutrophils/100 WBC (Bld) 62.2 % Normal . [facility] Comment on above: Performed By: #### C BC #### [address] NRBC% 0.4 /100{WBC} Normal 0-0.5 [facility] Comment on above: Performed By: #### C BC #### [address] Platelet mean volume (Bld) [Entitic vol] 7.5 fL Normal 6.3-10.7 [facility] Comment on above: Performed By: #### C BC #### [address] [place] [address] [facility] Platelets (Bld) [#/Vol] 225 10*3/uL Normal 150-450 [facility] Comment on above: Performed By: #### C BC #### [address] RBC (Bld) [#/Vol] 4.80 10*6/uL Normal 3.60-5.00 [facility] Comment on above: Performed By: #### C BC #### [address] WBC (Bld) [#/Vol] 7.7 10*3/uL Normal 3.8-11.6 [facility] Comment on above: Performed By: #### C BC #### [address] XR chest 2V*on 09-12-2022 XR chest 2V* [facility] [employer] [address] [place] [address] XRay Report Signed Patient: Ben Cruz MR#: [id number] 3 : 1975 Acct:[id number] Age/Sex: 47 / F ADM Date: 09/12/22 Loc: [place] Room: Type: [facility] Attending Dr: Taz Rossi DPM Copies [...] Florentino Woods M.D.09/12/2022 4:53 PM Dictation Location: [place] [address] Transcribed By: LINDA 09/12/221652 Dictated By: Florentino Woods II, MD 09/12/221651 Signed By: 09/12/221652 [facility] Louise 08-31-2022 SHERITAN Telephone (RADRMN) BEN CRUZ ([id number]) 1975 F Date Time Provider Department 08/31/22 LUIS LICONA During your visit today, we recorded the following information about you: Adriana Brown 08/31/2022 4:12 PM Signed Patient called in to ask for a prescription of Atavan sent to [facility] local [facility] prior to her scheduled MRI on 09/05. Prescription should be sent to the [facility] in [facility]. [facility] [phone] [place] [address] Trista Bonilla APRN.DROP TESTER 08/31/2022 4:35 PM Signed Ativan sent to preferred pharmacy per patient request prior to MRI. PDMP website checked and validated. All prescriptions have been APPROPRIATELY filled. No suspicious activity was identified. 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 No (yes to any of above refer [...] were negative. Declined an adjuvant trial in saxis. Baseline imaging today is negative CC: Melanoma [...] with more than 50% of the total upxe-qg-cmtu time of the visit in counseling / coordination of care. Debbie Echeverria MD Referring Provider: DEBBIE ECHEVERRIA [[id number]] Allergies As of Date: 06/21/2022 (No Known [...] for Encounter Date Provider Department Center 06/21/2022 [id number] ECHEVERRIA [facility] Prescriptions as of 06/21/2022 - meloxicam (MOBIC) 15 mg tablet - inclisiran (LEQVIO) 284 mg/1.5 mL injection - omeprazole (PRILOSEC) 20 mg capsule Take 20 mg by mouth once daily. Problem List As Of Date: 06/21/2022 (None) Visit Notes: >> Vanessa Giang LPN [place] Jun 21, 2022 10:29 AM Status: Signed Additional intake questions: Has the patient had fever, nausea, vomiting, diarrhea, constipation, fatigue for > 1 week? Yes, fatigue and Provider Notified Does the patient have a decreased appetite? No Does patient want to see a Veterinary Medical Officer? No (yes to any of above refer [...] Status:Closed by DEBBIE ECHEVERRIA on 06/21/22 Normal [facility] MRI BRAIN WO/W IVCONon 02-23 [facility] CBC AUTO DIFFon 11-18-2021 BASO # 0.0 103/ul Normal 0.0-0.1 [facility] Comment on above: Performed By: #### H FPFCBC #### [facility] [address] [place] [address] Dr. Arcenio Billy Basophils/100 WBC (Bld) 0.4 % Normal 0.2-2.0 [facility] Comment on above: Performed By: #### H FPFCBC #### [facility] [address] [place] [address] Dr. Arcenio Billy EO # 0.2 103/ul Normal 0.0-0.7 [facility] Comment on above: Performed By: #### H FPFCBC #### [facility] [address] [place] [address] Dr. Arcenio Billy Eosinophils/100 WBC (Bld) 3.0 % Normal 0.9-7.0 [facility] Comment on above: Performed By: #### H FPFCBC #### [facility] [address] [place] [address] Dr. Arcenio Billy Erythrocyte distribution width (RBC) [Ratio] 12.1 % Normal 11.0-15.0 [facility] Comment on above: Performed By: #### H FPFCBC #### [facility] [address] [place] [address] Dr. Arcenio Billy Hematocrit (Bld) [Volume fraction] 43.1 % Normal 36.0-48.0 [facility] Comment on above: Performed By: #### H FPFCBC #### [facility] [address] [place] [address] Dr. Arcenio Billy Hemoglobin (Bld) [Mass/Vol] 14.1 g/dL Normal 12.0-16.0 [facility] Comment on above: Performed By: #### H FPFCBC #### [facility] [address] [place] [address] Dr. Arcenio Billy IG # 0.01 10e3/ul Normal 0.00-0.03 [facility] Comment on above: Performed By: #### H FPFCBC #### [facility] [address] [place] [address] Dr. Arcenio Billy IG % 0.2 % Normal 0.0-0.5 [facility] Comment on above: Performed By: #### H FPFCBC #### [facility] [address] [place] [address] Dr. Arcenio Billy LYMPH # 1.9 103/ul Normal 1.2-3.8 [facility] Comment on above: Performed By: #### H FPFCBC #### [facility] [address] [place] [address] Dr. Arcenio Billy Lymphocytes/100 WBC (Bld) 35.7 % Normal 20.5-60.0 [facility] Comment on above: Performed By: #### H FPFCBC #### [facility] [address] [place] [address] Dr. Arcenio Billy MCH (RBC) [Entitic mass] 28.8 pg Normal 26.7-34.0 [facility] Comment on above: Performed By: #### H FPFCBC #### [facility] [address] [place] [address] Dr. Arcenio Billy MCHC (RBC) [Mass/Vol] 32.7 g/dL Normal 29.9-35.2 [facility] Comment on above: Performed By: #### H FPFCBC #### [facility] [address] [place] [address] Dr. Arcenio Billy MCV (RBC) [Entitic vol] 88.1 fL Normal 81.0-99.0 [facility] Comment on above: Performed By: #### H FPFCBC #### [facility] [address] [place] [address] Dr. Arcenio Billy MONO # 0.5 103/ul Normal 0.3-0.8 [facility] Comment on above: Performed By: #### H FPFCBC #### [facility] [address] [place] [address] Dr. Arcenio Billy Monocytes/100 WBC (Bld) 9.9 % Normal 1.7-12.0 [facility] Comment on above: Performed By: #### H FPFCBC #### [facility] [address] [place] [address] Dr. Arcenio Billy NEUT # 2.7 103/ul Normal 1.4-6.5 [facility] Comment on above: Performed By: #### H FPFCBC #### [facility] [address] [place] [address] Dr. Arcenio Billy Neutrophils/100 WBC (Bld) 50.8 % Normal 43.0-75.0 [facility] Comment on above: Performed By: #### H FPFCBC #### [facility] [address] [place] [address] Dr. Arcenio Billy Platelet mean volume (Bld) [Entitic vol] 8.9 fL Critically low 9.5-13.5 [facility] Comment on above: Performed By: #### H FPFCBC #### [facility] [address] [place] [address] Dr. Arcenio Billy PLT 271 103/ul Normal 150-450 [facility] Comment on above: Performed By: #### H FPFCBC #### [facility] [address] [place] [address] Dr. Arcenio Billy RBC 4.89 106/ul Normal 4.20-5.40 [facility] Comment on above: Performed By: #### H FPFCBC #### [facility] [address] [place] [address] Dr. Arcenio Billy WBC 5.3 103/ul Normal 4.0-11.0 [facility] Comment on above: Performed By: #### H FPFCBC #### [facility] [address] [place] [address] Dr. Arcenio Billy [facility] PROFILEon 11-18- 022 Albumin [Mass/Vol] 3.7 g/dL Normal 3.4-5.[address] [facility] Comment on above: Performed By: #### H FPF #### [facility] [address] [place] [address] Dr. Arcenio Billy Albumin/Globulin [Mass ratio] 1.1 {ratio} Normal [facility] Comment on above: Performed By: #### H FPF #### [facility] [address] [place] [address] Dr. Arcenio Billy ALP [Catalytic activity/Vol] 60 U/L Normal 46-116 [facility] Comment on above: Performed By: #### H FPF #### [facility] [address] [place] [address] Dr. Arcenio Billy ALT [Catalytic activity/Vol] 47 U/L Normal 14-59 [facility] Comment on above: Performed By: #### H FPF #### [facility] [address] [place] [address] Dr. Arcenio Billy AST [Catalytic activity/Vol] 25 U/L Normal 15-37 [facility] Comment on above: Performed By: #### H FPF #### [facility] [address] [place] [address] Dr. Arcenio Billy Bilirubin [Mass/Vol] 0.5 mg/dL Normal 0.2-1.0 [facility] Comment on above: Performed By: #### H FPF #### [facility] [address] [place] [address] Dr. Arcenio Billy Calcium [Mass/Vol] 8.8 mg/dL Normal 8.5-10.[address] [facility] Comment on above: Performed By: #### H FPF #### [facility] [address] [place] [address] [address] Arcenio Billy Chloride [Moles/Vol] 103 mmol/L Normal 98-107 [facility] Comment on above: Performed By: #### H FPF #### [facility] [address] [place] [address] [address] Arcenio Billy CHOL-HDL RATIO NORM SEE BELOW Normal [facility] Comment on above: Result Comment: 3.3 - 4.4 LOW RISK 4.4 - 7.1 AVERAGE RISK 7.1 - 11.0 MODERATE RISK >11.0 HIGH RISK Performed By: #### H FPF #### [facility] [address] [place] [address] [address] Arcenio Billy Cholesterol [Mass/Vol] 352 mg/dL Critically high <=200 [facility] Comment on above: Performed By: #### H FPF #### [facility] [address] [place] [address] [address] Arcenio Billy Cholesterol in HDL [Mass/Vol] 34 mg/dL Critically low 40-60 [facility] Comment on above: Performed By: #### H FPF #### [facility] [address] [place] [address] [address] Arcenio Billy Cholesterol in LDL [Mass/Vol] 274.2 mg/dL Normal [facility] Comment on above: Performed By: #### H FPF #### [facility] [address] [place] [address] [address] Arcenio Billy Cholesterol.total/C holesterol in HDL [Mass ratio] 10.4 {ratio} Normal [facility] Comment on above: Performed By: #### H FPF #### [facility] [address] [place] [address] [address] Arcenio Billy CO2 [Moles/Vol] 25.7 mmol/L Normal 21.0-32.0 [facility] Comment on above: Performed By: #### H FPF #### [facility] [address] [place] [address] [address] Arcenio Billy Creatinine [Mass/Vol] 0.91 mg/dL Normal 0.55-1.02 [facility] Comment on above: Performed By: #### H FPF #### [facility] [address] [place] [address] [address] Arcenio Billy Globulin (S) [Mass/Vol] 3.4 g/dL Normal [facility] Comment on above: Performed By: #### H FPF #### [facility] [address] [place] [address] [address] Arcenio Billy Glucose [Mass/Vol] 91 mg/dL Normal 74-[address] [facility] Comment on above: Performed By: #### H FPF #### [facility] [address] [place] [address] [address] Arcenio Billy HDL NORMAL > or = 60 mg/dl - LO W CARDIOVASCULAR RISK <40 mg/dl - HIGH CARDIOVASCULAR RISK Normal [facility] Comment on above: Performed By: #### H FPF #### [facility] [address] [place] [address] Dr. Arcenio Billy LDL CALC NORMAL SEE BELOW Normal [facility] Comment on above: Result Comment: <100 mg/dl OPTIMAL 100 - 129 mg/dl NEAR OR ABOVE OPTIMAL 130 - 159 mg/dl BORDERLINE HIGH 160 - 189 mg/dl HIGH >190 mg/dl VERY HIGH Performed By: #### H FPF #### [facility] [address] [place] [address] Dr. Arcenio Billy Potassium [Moles/Vol] 4.1 mmol/L Normal 3.5-5.1 [facility] Comment on above: Performed By: #### H FPF #### [facility] [address] [place] [address] [address] Arcenio Billy Protein [Mass/Vol] 7.1 g/dL Normal 6.4-8.[address] [facility] Comment on above: Performed By: #### H FPF #### [facility] [address] [place] [address] Dr. Arcenio Billy Sodium [Moles/Vol] 139 mmol/L Normal 136-[address] [facility] Comment on above: Performed By: #### H FPF #### [facility] [address] [place] [address] [address] Arcenio Billy Triglyceride [Mass/Vol] 219 mg/dL Critically high <=150 [facility] Comment on above: Performed By: #### H FPF #### [facility] [address] [place] [address] Dr. Arcenio Billy TSH 1.717 uIU/mL Normal 0.358-3.740 [facility] Comment on above: Performed By: #### H FPF #### [facility] [address] [place] [address] Dr. Arcenio Billy Urea nitrogen [Mass/Vol] 11.0 mg/dL Normal 7.0-18.0 [facility] Comment on above: Performed By: #### H FPF #### [facility] [address] [place] [address] Dr. Arcenio Billy Urea nitrogen/Creatinine [Mass ratio] 12.1 mg/mg Normal [facility] Comment on above: Performed By: #### H FPF #### [facility] [address] [place] [address] Dr. Arcenio Billy VLDL CALC 43.8 mg/dL Normal [facility] Comment on above: Performed By: #### H FPF #### [facility] [address] [place] [address] Dr. Arcenio Billy PAP ACOG PANEL 2: 30 to 65on 09-19-2021 . . Normal [facility] Comment on above: Result Comment: Perf ormed at: WB Performed By: #### [id number] #### [facility] [address] [place] [address] Dr. Arcenio Billy Age Gdln ACOG Testing 30-65 Normal [facility] Comment on above: Performed By: #### [id number] #### [facility] [address] [place] [address] Dr. Arcenio Billy DIAGNOSIS: Comment Normal [facility] Comment on above: Result Comment: NEGA TIVE FOR INTRAEPITHELIAL LESION OR MALIGNANCY. FUNGAL ORGANISMS MORPHOLOGICALLY CONSISTENT WITH MOSES SPECIES ARE PRESENT. Performed at: WB Performed By: #### [id number] #### [facility] [address] [place] [address] Dr. Arcenio Billy HPV Aptima Negative Normal Negative [facility] Comment on above: Result Comment: This nucleic acid amplification test detects fourteen high-risk HPV types (16,18,31,33,35,39,45,51,52,56,58,59,66,68) without differentiation. Performed at: =G Performed By: #### [id number] #### [facility] [address] [place] [address] Dr. Arcenio Billy Methodology: Comment Normal [facility] Comment on above: Result Comment: This liquid based ThinPrep(R) pap test was screened with the use of an image guided system. Performed at: WB Performed By: #### [id number] #### [facility] [address] [place] [address] Dr. Arcenio Billy Note: Comment Normal [facility] Comment on above: Result Comment: The Pap smear is a screening test designed to aid in the detection of premalignant and malignant conditions of the uterine cervix. It is not a diagnostic procedure and should not be used as the sole means of detecting cervical cancer. Both false-positive and false-negative reports do occur. . Performed at: WB Performed By: #### [id number] #### [facility] [address] [place] [address] Dr. Arcenio Billy Performed by: Comment Normal [facility] Comment on above: Result Comment: Bronson Cordero Senior Medical Writer (ASCP) Performed at: WB Performed By: #### [id number] #### [facility] [address] [place] [address] Dr. Arcenio Billy Specimen adequacy: Comment Normal [facility] Comment on above: Result Comment: Sati sfactory for evaluation. No endocervical component is identified. Performed at: WB Performed By: #### [id number] #### [facility] [address] [place] [address] Dr. Arcenio Billy MG MAMM SCREEN 3D JULIO CÉSAR CADon 09-08-2021 MG MAMM SCREEN 3D JULIO CÉSAR CAD Patient: BEN CRUZ Exam Date: 09/08/2021 : 1975 Gender:F Ordering : DR CHELITA VILLANUEVA . Admission #: [id number] Family : Order #: [id number] CLICK HERE TO VIEW EXAM RADIOLOGY REPORT [...] pancreatic cancer at age 71. LOCATION: [facility] BREAST COMPOSITION: Scattered areas fibroglandular density. FINDINGS: [...] MD on 09/08/2021 at 11:41 Normal [facility] MRI BRAIN WO/W IVCONon 08-23 [facility] MRI LIVER WO/W IVCONon 06-16 [facility] MRI BRAIN WO/W IVCONon 06-01 [facility] Vital Signs Date Time Vital Sign Value Performing Clinician Facility 03-16-2023 13:45-0500 Body height 162.56 cm Lissett Vega Other [facility] Other 03-16-2023 13:45-0500 Body mass index (BMI) [Ratio] 34.5 kg/m2 Lissett Vega Other [facility] Other 03-16-2023 13:45-0500 Body temperature 99.1 [degF] Lissett Vega Other [facility] Other 03-16-2023 13:45-0500 Body weight 91.17 kg Lissett Vega Other [facility] Other 03-16-2023 13:45-0500 Diastolic blood pressure 88 mm[Hg] Lissett Vega Other [facility] Other 03-16-2023 13:45-0500 SaO2% (BldA) [Mass fraction] 98 % Lissett Vega Other [facility] Other 03-16-2023 13:45-0500 Systolic blood pressure 128 mm[Hg] Lissett Vega Other [facility] Other 02-17-2023 14:47-0500 Blood Pressure Location Debbie NILL [facility] [place] 02-17-2023 14:47-0500 Diastolic blood pressure 84 mm[Hg] Debbie NILL [facility] [place] 02-17-2023 14:47-0500 Heart rate 76 /min Debbie NILL [facility] [place] 02-17-2023 14:47-0500 Respiratory rate 16 /min Debbie NILL [facility] [place] 02-17-2023 14:47-0500 Systolic blood pressure 128 mm[Hg] Debbie NILL [facility] [place] 09-21-2022 11:30-0400 Body height 162.56 cm Lissett Vega Other [facility] Other 09-21-2022 11:30-0400 Body mass index (BMI) [Ratio] 36.56 kg/m2 Lissett Vega Other [facility] Other 09-21-2022 11:30-0400 Body weight 96.62 kg Lissett Vega Other [facility] Other 09-21-2022 11:30-0400 Diastolic blood pressure 84 mm[Hg] Lissett Vega Other [facility] Other 09-21-2022 11:30-0400 Systolic blood pressure 137 mm[Hg] Lissett Vega Other [facility] Other 06-21-2022 10:32-0400 Body height 165 cm Debbie Echeverria MD Work Phone: [facility] 06-21-2022 10:32-0400 Body temperature 96.8 [degF] Debbie Echeverria MD Work Phone: [facility] 06-21-2022 10:32-0400 Body weight 98.79 kg Debbie Echeverria MD Work Phone: [facility] 06-21-2022 10:32-0400 Diastolic blood pressure 82 mm[Hg] Debbie Echeverria MD Work Phone: [facility] 06-21-2022 10:32-0400 Heart rate 74 /min Debbie Echeverria MD Work Phone: [facility] 06-21-2022 10:32-0400 Respiratory rate 18 /min Debbie Echeverria MD Work Phone: [facility] 06-21-2022 10:32-0400 SaO2% (BldA) [Mass fraction] 96 % Debbie Echeverria MD Work Phone: [facility] 06-21-2022 10:32-0400 Systolic blood pressure 139 mm[Hg] Debbie Echeverria MD Work Phone: [facility] 12-21-2021 13:24-0400 Body temperature 98.6 [degF] Debbie Echeverria MD Work Phone: [facility] 12-21-2021 13:24-0400 Body weight 102.15 kg Debbie Echeverria MD Work Phone: [facility] 12-21-2021 13:24-0400 Diastolic blood pressure 82 mm[Hg] Debbie Echeverria MD Work Phone: [facility] 12-21-2021 13:24-0400 Heart rate 79 /min Debbie Echeverria MD Work Phone: [facility] 12-21-2021 13:24-0400 Respiratory rate 20 /min Debbie Echeverria MD Work Phone: [facility] 12-21-2021 13:24-0400 SaO2% (BldA) [Mass fraction] 100 % Debbie Echeverria MD Work Phone: [facility] 12-21-2021 13:24-0400 Systolic blood pressure 145 mm[Hg] Debbie Echeverria MD Work Phone: [facility] Encounters Encounter Date Encounter Type Care Provider Facility Start: 06-05-2023 End: 06-05-2023 ambulatory Jes Vieira Facility:[facility] Start: 06-05-2023 End: 06-05-2023 ambulatory VETO SHIN Not Available Start: 05-12-2023 Telephone encounter Gurpreet malin DO, PhD Work Phone: [facility] Comment on above: Appointment (Ce sheth) Start: 03-23-2023 End: 03-23-2023 ambulatory Lissett Vega Other Reviews42 Other Start: 03-23-2023 Telephone encounter Lissett Vega [facility] Start: 03-16-2023 End: 03-16-2023 ambulatory Lissett Vega Other Reviews42 Other Start: 03-16-2023 Office outpatient vi sit 15 minutes Lissett Vega [facility] Start: 03-08-2023 End: 03-09-2023 ambulatory Debbie DE LOS SANTOS Facility:[id number] Start: 02-17-2023 End: 02-18-2023 ambulatory Debbie DE LOS SANTOS Facility:[facility] Start: 02-17-2023 End: 02-17-2023 Patient encounter procedure Debbie DE LOS SANTOS General Surgery [facility] Start: 02-07-2023 Telephone encounter Johann Henriquez RN [facility] Start: 02-06-2023 Telephone encounter Johann Henriquez RN [facility] Comment on above: Gamma Knife Follow-u p Start: 01-27-2023 End: 01-28-2023 Orders Only Gurpreet Beckwith DO, PhD Work Phone: Neurosurgery Comment on above: Benign neoplasm of m eninges (HCC) (Primary Dx) Benign neoplasm of m eninges (HCC) [D32.9] Start: 01-27-2023 Patient encounter procedure Burak Prakash MD Work Phone: [facility] Start: 01-27-2023 Radiation Oncology Note Susi Prakash MD Work Phone: [place] [facility] Comment on above: Procedure Treatment Planning Start: 01-24-2023 ambulatory Debbie DE LOS SANTOS Facility:[facility] Start: 01-23-2023 End: 01-23-2023 ambulatory Lissett Vega Other Reviews42 Other Start: 01-23-2023 Telephone encounter Lissett Vega [facility] Start: 12-22-2022 End: 12-22-2022 ambulatory DEBBIE ECHEVERRIA Facility:[facility] Start: 11-15-2022 Telephone encounter Betzy liao RN Work Phone: [facility] Comment on above: Room Worker - O ther (Schedule gamma knife 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/) Start: 11-04-2022 End: 11-04-2022 ambulatory Gurpreet Becwkith DO, PhD Work Phone: [facility] Comment on above: Benign neoplasm of m eninges (HCC) (Primary Dx) Start: 11-04-2022 End: 11-04-2022 Telemedicine consultation with patient Gurpreet Beckwith DO, PhD Work Phone: [facility] Start: 10-31-2022 End: 10-31-2022 ambulatory Lissett Vega Other Reviews42 Other Start: 10-31-2022 Telephone encounter Lissett Vega [facility] Start: 10-19-2022 End: 10-19-2022 ambulatory LUIS LICONA Facility:[facility] Start: 10-19-2022 End: 10-19-2022 ambulatory Luis Licona MD Work Phone: Radiation Oncology Comment on above: Meningioma (HCC) (Pr imary Dx) Start: 10-19-2022 End: 10-19-2022 Telemedicine consultation with patient Luis Licona MD Work Phone: [facility] Start: 10-18-2022 End: 10-18-2022 ambulatory DEBBIE ECHEVERRIA Facility:[facility] Start: 10-18-2022 End: 10-18-2022 ambulatory Trista Bonilla KHARI.DROP TESTER Work Phone: Radiation Oncology Comment on above: Meningioma (HCC) (Pr imary Dx) Start: 10-18-2022 End: 10-18-2022 Telemedicine consultation with patient Trista Bonilla KHARI.DROP TESTER Work Phone: [facility] Start: 10-17-2022 End: 10-17-2022 ambulatory TRISTA CHAD Facility:[facility] Start: 10-17-2022 End: 10-17-2022 Subsequent hospital visit by physician Mri [facility] (Lg Bore/1.5t) Radiology MRI Comment on above: Benign neoplasm of m eninges (HCC) [D32.9] Start: 09-23-2022 End: 09-23-2022 ambulatory Lissett Vega Other Reviews42 Other Start: 09-23-2022 Telephone encounter Lissett Vega [facility] Start: 09-21-2022 End: 09-21-2022 ambulatory Lissett Vega Other Reviews42 Other Start: 09-21-2022 Encounter for other preprocedural examination Lissett Vega [facility] Start: 09-21-2022 Office outpatient vi sit 25 minutes Lissett Vega [facility] Start: 09-12-2022 End: 09-12-2022 ambulatory Lissett Vega Facility:[facility] Start: 08-31-2022 Telephone encounter Luis osborn MD Work Phone: Radiation Oncology Comment on above: Room Worker - O ther Start: 06-21-2022 End: 06-21-2022 ambulatory DEBBIE ECHEVERRIA Facility:[facility] Start: 06-21-2022 End: 06-21-2022 ambulatory Debbie Echeverria MD Work Phone: Hematology/Oncology Comment on above: Malignant melanoma o f torso excluding breast (HCC) (Primary Dx) Start: 06-21-2022 End: 06-21-2022 Patient encounter procedure Debbie Echeverria MD Work Phone: [facility] Start: 03-16-2022 End: 03-16-[address] LISSETT VEGA Facility: Start: 02-28-2022 End: 02-28-2022 ambulatory Trista Chad SAENZDROP TESTER Work Phone: Radiation Oncology Comment on above: Benign neoplasm of m eninges (HCC) (Primary Dx) Start: 02-28-2022 End: 02-28-2022 Telemedicine consultation with patient Trista Bonilla DROP TESTER Work Phone: [facility] Start: 02-23-2022 End: 02-23-2022 Subsequent hospital visit by physician Mri [facility] (Lg Bore/1.5t) Radiology MRI Comment on above: Benign neoplasm of m eninges (HCC) [D32.9] Start: 12-21-2021 End: 12-21-2021 ambulatory Debbie Echeverria MD Work Phone: Hematology/Oncology Comment on above: Malignant melanoma o f torso excluding breast (HCC) (Primary Dx) Start: 12-21-2021 End: 12-21-2021 Patient encounter procedure Debbie Echeverria MD Work Phone: [facility] Start: 12-15-2021 End: 12-15-[address] LISSETT VEGA Facility:[facility] Start: 12-11-2021 Gynecological examin ation normal Lissett Vega Other [facility] [employer] Other Start: 12-01-2021 Telephone encounter Debbie Echeverria MD Work Phone: Hematology/Oncology Comment on above: Room Worker - O ther Start: 11-18-2021 End: 11-19-2021 [...] with patient Luis Licona MD Work Phone: [facility] Start: 08-23-2021 End: 08-23-2021 Subsequent hospital visit by physician Mri [facility] (Lg Bore/1.5t) Radiology MRI Comment on above: Benign neoplasm of m eninges (HCC) [D32.9] Start: 06-16-2021 End: 06-16-2021 Subsequent hospital visit by physician Mri [facility] (Lg Bore/1.5t) Radiology MRI Comment on above: Malignant 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] Start: 06-01-2021 End: 06-01-2021 Subsequent hospital visit by physician Mri [facility] (Lg Bore/1.5t) Radiology MRI Comment on above: Malignant 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] Procedures Date Procedure Procedure Detail Performing Clinician Start: 01-27-2023 Ct head/brain w/o co ntrast material Gurpreet Beckwith DO, PhD Work Phone: Start: 01-27-2023 Unlisted magnetic resonance procedure Gurpreet Beckwith DO, PhD Work Phone: Start: 10-17-2022 Mri brain brain stem w/o w/contrast material Trista Bonilla APRN.DROP TESTER Work Phone: Start: 02-23-2022 Mri brain brain [...] shoulder Kalen DE LOS SANTOS section Debbie [place] Excision of ganglion of wrist Debbie DE LOS SANTOS Excision of melanoma Debbie DE LOS SANTOS Comment on above: left shoulder Fasciotomy of foot Debbie PARK Hysterectomy Lissett Vega Other Laminectomy Debbie DE LOS SANTOS Screening for malign ant neoplasm of breast Lissett Vega Other Stereotactic destruc tion of lesion using gamma radiation Debbie DE LOS SANTOS Vaginal hysterectomy Debbie NILL Plan of Treatment Date Care Activity Detail Author Start: 04-03-2023 Depression Assessment Depression Ass essment [facility] Start: 12-21-2022 Adult depression screening assessment DEPRESSION SCREENING [facility] Start: 12-02-2022 Influenza vaccination [facility] Start: 08-29-2022 End: 03-31-2023 Mri brain brain stem w/o w/contrast material MRI BRAIN WO/W IVCON Radiology Routine Benign neoplasm of meninges (HCC) Expected: 08/29/2022, Expires: 03/31/2023 [facility] Work Phone: Comment on above: Expected: 08/29/2022 , Expires: 03/31/2023 Start: 08-22-2022 Adult depression screening assessment DEPRESSION SCREENING [facility] Start: 04-03-2022 DEPRESSION ASSESSMENT DEPRESSION ASS [facility] Start: 01-24-2022 DIABETES SCREEN DIABETES SCREEN [facility] Start: 01-24-2022 Diabetes Screening Diabetes Screenin g [facility] Start: 12-02-2021 Influenza vaccination [facility] Start: 04-03-2021 DEPRESSION ASSESSMENT DEPRESSION ASS [facility] Start: 07-12-2020 COLOGUARD (FIT-DNA) COLOGUARD (FIT-D NA) [facility] Start: 07-12-2020 Colonoscopy COLONOSCOPY [facility] Start: 07-12-2020 COLORECTAL CANCER SCREENING COLORECTAL CANCER SCREENING [facility] Start: 07-12-[address] COLONOGRAPHY [facility] Start: 07-12-2020 FECAL OCCULT BLOOD FECAL OCCULT BLOO D [facility] Start: 07-12-2020 Lipid 1996 panel - S emeterio or Plasma Lipid Screening [facility] Start: 07-12-2020 Lipid panel Lipid Screening [facility] Start: 07-12-2020 LIPID SCREEN LIPID SCREEN [facility] Start: 07-12-2020 Screening for malign ant neoplasm of colon [facility] Start: 07-12-2020 SIGMOIDOSCOPY SIGMOIDOSCOPY [facility] Start: 2015 Mammography [facility] Start: 2015 Screening for malign ant neoplasm of breast Mammogram Screening [facility] Start: 07-12-2005 HPV TESTING HPV TESTING [facility] Start: 07-12-2005 Screening for malign ant neoplasm of cervix HPV Testing [facility] Start: 07-12-1996 PAP TESTING PAP TESTING [facility] Start: 07-12-1996 Screening for malign ant neoplasm of cervix Pap Testing [facility] Start: 07-12-1994 Urine microalbumin profile [facility] Start: 07-12-1993 HEPATITIS C SCREENING HEPATITIS C [facility] Start: 07-12-1993 Hepatitis C screening Hepatitis C [facility] Start: 07-12-1993 HIV SCREENING HIV SCREENING [facility] Start: 07-12-1993 HIV screening HIV Screening [facility] Start: 07-12-1981 PNEUMOCOCCAL (1 - PCV) PNEUMOCOCCAL (1 - PCV) [facility] Start: 07-12-1980 COVID-19 VACCINE (#1) COVID-19 VACCI NE (#1) [facility] Start: 01-12-1976 COVID-19 VACCINE (#1) COVID-19 VACCI NE (#1) [facility] Start: 1975 HEPATITIS B (1 of 3 - 3-dose series) HEPATITIS B (1 of 3 - 3-dose series) [facility] Start: 1975 Hepatitis B Vaccine (1 of 3 - 3-dose series) Hepatitis B Vaccine (1 of 3 - 3-dose series) [facility] End: 09-22-2022 Mri brain brain stem w/o w/contrast material MRI BRAIN WO/W IVCON Radiology Routine Benign neoplasm of meninges (HCC) 1 Occurrences starting 08/23/2021 until 09/22/2022 [facility] Work Phone: Comment on above: 1 Occurrences starti ng 08/23/2021 until 09/22/2022 [facility] ANESTHESIA O NLY [facility] Immunizations Immunization Date Immunization Notes Care Provider Fa cility 06-05-2020 SARS-CoV-2 (COVID-19 ) mRNA BNT-162b2 tashiax Debbie DE LOS SANTOS [facility] [place] 05-15-2020 SARS-CoV-2 (COVID-19 ) mRNA BNT-162b2 tashiax Debbie DE LOS SANTOS [facility] [place] NEGATED: Highlighted row has not occurred!02-17-2023 influenza virus vaccine, unspecified formulation Debbie HERNANDEZFelix [facility] [place] Payers Date Payer Category Payer Self-pay 2018 Unknown MMO MMO [employer] [id number] 2018-Present [phone] [address] [place] [address] PPO [id number] 2018 Unknown [id number] 1975 Unknown [id number] 1975 Unknown [id number] 1975 Unknown [id number] 1975 Unknown [id number] 1975 Unknown [id number] 1975 Unknown [id number] 1975 Unknown [id number] 1959 Self-pay [id number] 1959 Unknown [id number] Unknown [id number] Unknown [id number] Unknown [id number] Social History Date Type Detail Facility Start: 11-19-2018 End: 02-17-2023 Tobacco smoking status NHIS Ex-smoker [facility] End: 08-02-2018 History of tobacco use Current smoker [facility] End: 08-02-2018 History of tobacco use Cigarette Smoker [facility] Start: 11-19-2018 Tobacco use and exposure Smokeless t obacco non-user [facility] Start: 06-21-2021 End: 12-22-2022 Alcohol intake Current drinker of alcohol (finding) [facility] Start: 11-19-2018 History SDOH Alcohol Comment occasionally [facility] Start: 1975 Sex Assigned At Not on file [facility] Start: 12-11-2021 End: 12-21-2021 Exposure to SARS-CoV-2 (event) Not sure [facility] Start: 06-21-2022 End: 10-18-2022 Sex Assigned At [facility] Start: 06-21-2022 End: 10-18-2022 History of Social function [facility] Adult Depression Screening Assessment 0 [facility] Start: 01-20-2020 Gender identity Identifies as female gender (finding) [facility] Start: 05-02-2021 End: 06-11-2021 Exposure to SARS-CoV-2 (event) Unable to assess [facility] Functional Status Date Assessment Result Facility 02-17-2023 Functional Status N/A [facility] Clinical Notes 06-01-2021 to 05-12-2023 Telephone Encounter - Marli Patino - 05/12/2023 9:27 AM EST Note Date & Type Note Facility 05-12-2023 Miscellaneous Notes Formattin g of this note might be different from the original. Per Johann (RN)-via email: This patient had GK in January and their follow up MRI and appointment was never scheduled. She needs an MRI at [facility] and follow up same day with Ce piña. Schedule this for September please. Appointments scheduled. Mychart and letter sent. Marli Patino documented in this encounter [facility] 03-16-2023 Evaluation note Encounter Date Diagnosis Assessment Notes Mar, LLQ abdominal pain (ICD-10 - R10.32) Discussed differential - kidney stone, diverticulosis (recent normal colonoscopy), ovarian issue or constipation (no BM x 2 days) due to hematuria on UA - recommend CT without contrast to r/o stone. Mar, Microscopic hematuria (ICD-10 - R31.29) [employer] Other 12-14-2023 Evaluation note* Encounter Date Diagnosis Assessment Notes Treatment Notes Treatment Clinical Notes Mar, LLQ abdominal pain (ICD-10 - R10.32) Discussed differential - kidney stone, diverticulosis (recent normal colonoscopy), ovarian issue or constipation (no BM x 2 days) due to hematuria on UA - recommend CT without contrast to r/o stone. 14 Mar, 2023 Microscopic hematuri a (ICD-10 - R31.29) Mar, Familial hypercholesterolemia (ICD-10 - E78.01) unable to tolerate statins Reviewed labs comparing 2021 to 2022. Her Triglycerides improved from 219 to 165. Her total cholesterol improved from 352 to 247. Her HDL improved from 34 to 40. Her LDL improved from 274 to 174. She has been on Leqvio for 1 year and has noted great improvements without any adverse side effects. She would like to continue this treatment. Reviews[facility] Other 11-17-2023 NoteChief Complaint consultation for screening [...] Recorded SARS-CoV-2 (COVID-19) mRNA BNT-162b2 vax 05/15/2020 [facility]edSelect [facility] HospitalComment on above:Result Comment: Electronically Signed By: MAGALI MCKINLEY, Debbie He\Date and Time Signed: 02/17/23 15:11 [id number] Miscellaneous Notes* Telephone Encounter - Johann Henriquez [...] symptoms or concerns arise. [facility] Miscellaneous Notes* Telephone Encounter - Johann Henriquez RN - 02/07/2023 1:13 PM EST 2nd attempt to reach out, patient unavailable. Will send [employer] message with contact information to call if she is experiencing any symptoms or has any concerns since gamma knife treatment. * Telephone Encounter - Johann Henriquez RN - 02/06/2023 1:17 PM EST Calling Ben for post-GKRS follow-up. Unable to reach at this time. Left voicemail. documented in this encounter[facility] [place]2023 NoteHNO ID: [id number] Author: Burak Prakash MD Service: Radiation Oncology Author Type: Physician Type: Progress Notes Filed: 02/03/2023 12:33 AM Note Text: BEN CRUZ [id number] 02/01/2023 [facility] / Department of [...] [facility]10-27-2023 NoteHNO ID: [id number] Author: Gurpreet Beckwith DO, PhD Service: ? Author Type: Physician Type: Progress Notes Filed: 01/27/2023 1:49 PM Note Text: [facility] [address] [place] [address] [place] OPERATIVE REPORT NAME: Ben Cruz [facility] NO.: [id number] MASK SIMULATION DATE: 2023-01-27 RADIATION TREATMENT START [...] Number of Fractions: 1 After the usual head of quality procedures were performed, fractionated 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 was delivered with use of the Gamma Knife. The Gamma Knife checklist and time outs were performed during this procedure. Gurpreet Beckwith DO, PhDMckit[facility]10-27-2023 NoteHNO ID: [id number] Author: Burak Prakash MD Service: Radiation Oncology Author Type: Physician Type: Progress Notes Filed: 02/01/2023 12:33 AM Note Text: BEN CRUZ Felix [id number] 01/27/2023 [facility] [...] patient setup, I conferred with the medical office assistant instructor to approve the final setup. I was [...] planned. Electronically Signed Burak Prakash M.D. :10 [facility]10-27-2023 NoteHNO ID: [id number] Author: Burak Prakash MD Service: Radiation Oncology Author Type: Physician Type: Progress Notes Filed: 02/02/2023 12:32 AM Note Text: SYMONEPETER BEN L [id number] 01/27/2023 [facility] [...] planning. Electronically Signed Burak Prakash M.D. :18 [facility]10-27-2023 NoteHNO ID: [id number] Author: Burak Prakash MD Service: Radiation Oncology Author Type: Physician Type: Progress Notes Filed: 02/01/2023 12:33 AM Note Text: BEN CRUZ [id number] 01/27/2023 [facility] Department of Radiation Oncology [place] [...] DVH. Electronically Signed Burak Prakash M.D. / [facility] :29 [facility]10-27-2023 History of Present illness Narrative* Gurpreet Beckwith DO, PhD - 01/27/2023 1:49 PM EDT [facility] [address] [place] [address] [place] OPERATIVE REPORT NAME: Ben Cruz [facility] NO.: [id number] MASK SIMULATION DATE: 2023-01-27 RADIATION TREATMENT START [...] Number of Fractions: 1 After the usual head of quality procedures were performed, fractionated 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 was delivered with use of the Gamma Knife. The Gamma Knife checklist and time outs were performed during this procedure. Gurpreet Beckwith DO, PhD documented in this encounterHol[facility] [place]10-[facility]-2023 NoteHNO ID: [id number] Author: Gurpreet Beckwith DO, PhD Service: ? Author Type: Physician Type: Progress Notes Filed: 01/27/2023 11:22 AM Note Text: [facility] [address] [place] [address] [place] OPERATIVE REPORT NAME: Ben Cruz NO.: [id number] MASK SIMULATION DATE: 2023-01-27 RADIATION TREATMENT START [...] Number of Fractions: 1 After the usual head of quality procedures were performed, fractionated 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 was delivered with use of the Gamma Knife. The Gamma Knife checklist and time outs were performed during this procedure. Gurpreet Beckwith DO, PhDMckitrick Hospital10-27-2023 NoteHNO ID: [id number] Author: Zee Padilla Tech Service: Radiology Author Type: Nail Polish Brush Machine Feeder Type: Progress Notes Filed: 01/27/2023 8:06 AM [...] BY: Tyshawn Lawler January 27, 2023 8:06 [facility]10-27-2023 NoteHNO ID: [id number] Author: Gurpreet Beckwith DO, PhD Service: ? [...] - 123 U/L 60 (more content not included)...[facility]10-27-[facility] History of Present illness Narrative* Gurpreet Beckwith DO, PhD - 01/27/2023 11:21 AM EDT [facility] [address] [place] [address] [place] OPERATIVE REPORT NAME: Ben Cruz [facility] NO.: [id number] MASK SIMULATION DATE: 2023-01-27 RADIATION TREATMENT START [...] Number of Fractions: 1 After the usual head of quality procedures were performed, fractionated 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 was delivered with use of the Gamma Knife. The Gamma Knife checklist and time outs were performed during this procedure. Gurpreet Beckwith DO, PhD documented in this encounterHol[facility] [place] History of Present illness Narrative* Zee Padilla [...] 27, 2023 8:06 AM documented in this encounterHolzer [facility] [place]10-27-2023 NoteHNO ID: [id number] Author: Anton Terrell RN Service: Nursing Author [...] Cruz DATE: January 27, 2023 TIME: 7:46 [facility]10-27-2023 NoteHNO ID: [id number] Author: Mariela Burk RT(R) Service: Radiology Author [...] BY: RT Nestor(R) January 27, 2023 7:59 [facility]10-27-2023 History of Present illness [...] about the growth and was seen virtually 8 07 24 to discuss GK 01 27 23: Presents [...] 123 U/L 60 Final Pathology: Specimen #: [id number]* Submitting Physician: DEBBIE ECHEVERRIA MD FINAL DIAGNOSIS [...] FRONTAL LOBE, UNCHANGED GOING BACK TO 06/01/2021 House Painter: TORI Transcribe Date/Time: Jan 27 2023 8:08A [...] PhD cc: Ben toro documented in this encounterHolzer [facility] [place]10-27-2023 NoteHNO ID: [id number] Author: Gayle Acevedo RN Service: ? Author [...] order of Dr. Aria Beckwith DO, Gayle Acevedo, RN 0150 Mask SIM completed. Ben Cruz returned to department for treatment # 1 of 1. Is patient receiving immunotherapy infusions: Not Applicable. Patient's Age: 47 Menstruation Status: [place] [facility] Results: N/A test not performed QC: Yes, [...] verbalized understanding; patient discharged via/with Gayle Acevedo [facility]NM[facility]10-27-2023 Instructions* Patient Instructions* Gayle Acevedo RN - 01/27/2023 7:45 AM EDT [facility] Gamma Knife Center Discharge Instructions As with [...] a physician or hospital other than the [facility] with any problem related to [...] may your physician, Dr. Virgil Beckwith at [phone] Monday through Monday 8:00 am to 5:00 pm, or call the Gamma Knife nurse Monday through Monday 8:00 am to 4:00 pm at [phone]. In the evening or on weekends, call [phone] or toll-free [phone] and ask the blanchard grinder operator to page your neurosurgeon's resident operational trainer. documented in this encounterHolzer Medical Center – [facility]10-27-2023 History of Present illness Narrative* Anton Terrell [...] 27, 2023 7:59 AM documented in this encounterHolzer Medical Center – [place]10-27-2023 History of Present illness Narrative* Gayle Acevedo [...] Patient's Age: 47 Menstruation Status: [place] [facility] [place]: N/A test not performed QC: Yes, testing is valid (or protocol followed for invalid testing). Reference range: Normal Value = Negative for hCG. POC performed by: Gayle Acevedo RN 1931 4 mg Decadron PO given prior to GKRS per order of Dr. Virgil Beckwith 0946 GKRS start time. 1016 GKRS end time. 1025 Discharge instructions given to patient; instructions reviewed by this RN; patient/family verbalized understanding; patient discharged via/with Gayle Acevedo RN documented in this encounterHolzer Medical Center – [place]10-27-2023 History of Present illness Narrative* Burak Prakash MD - 01/27/2023 12:00 AM EDT BEN CRUZ [id number] 01/27/2023 [facility] Cindi Xiomara Rg [facility] [place] [...] to patientsetup, I conferred with the medical office assistant instructor to approve the final setup. I was [...] planned. Electronically Signed Burak Prakash M.D. :10 PM documented in this encounterHolzer Medical Center – [place]10-27-2023 History of Present illness Narrative* Burak Prakash MD - 01/27/2023 12:00 AM EDT BEN CRUZ [id number] 01/27/2023 [facility] Department of Radiation Oncology [place] [...] DVH. Electronically Signed Burak Prakash M.D. / [facility] 31:29 PM documented in this encounterHolzer Medical Center – Jackson09-21-2023 NoteHNO ID: [id number] Author: Debbie Echeverria MD Service: ? Author Type: Physician Type: Progress Notes Filed: 12/23/2022 9:46 AM Note Text: December 22, 2022 DXN: Resected T4aN0 desmoplastic melanoma. The lesion was about 4.5mm located on her back with 2 negative SLNs (left axilla). There was no reported neurtropism and only one mitotic figure. Margins were negative. Declined an adjuvant trial in saxis. Baseline imaging today is negative CC: Melanoma [...] beckwith components of the Resident. Debbie Echeverria, [facility]08-15-2023 Miscellaneous Notes* Telephone Encounter - Betzy Heard RN - 11/15/2022 1:57 PM EDT Calling Ben to follow up on [employer] message about scheduling gamma knife for 01/27/2023 No answer, left message stating that I'll go ahead and place the GK orders. Reminded to disregard ANY appointment times she sees in [employer], any automated text reminders or automated phone calls for 01/27/23 She will receive a call from the GK nurse or radiation therapist the day before with her arrival time. If she has any questions, I left office phone # for call back or she can send a [employer] message. I will send out a GK folder with additional information related to Mask Based Gamma Knife Radiosurgery Betzy Heard RN, BSN Room Worker Cindi Diez [facility] documented in this encounterHolzer Medical Center – [place]08-04-2023 NoteHNO ID: [id number] Author: Gurpreet Beckwith DO, PhD Service: ? Author Type: Physician Type: Progress Notes Filed: 11/04/2022 1:27 PM Note Text: [facility] New Patient Virtual Consultation Referred by Dr. Luis Licona We had a virtual visit conducted via Invaluable virtual visit. I received consent from the patient to perform the visit using this platform. I have communicated my name and active licensure. The patient's identity and physical location were verified at the time of this visit. Either the patient or their legal manufacturer's service representative has been informed of the risks [...] Pathology: Specimen #: [id number] (more content not included)...[facility] 11-04-2022 History of Present illness Narrative* Gurpreet Beckwith DO, PhD - 11/04/2022 1:00 PM EDT Images from the original note were not included. [facility] New Patient Virtual Consultation Referred by Dr. Luis Licona We had a virtual visit conducted via Invaluable virtual visit. I received consent from the patient to perform the visit using this platform. I have communicated my name and active licensure. The patient's identity and physical location wereverified at the time of this visit. Either the patient or their legal manufacturer's service representative has been informed of the risks [...] 123 U/L 60 Final Pathology: Specimen #: [id number]* Submitting Physician: DEBBIE ECHEVERRIA MD FINAL DIAGNOSIS Skin, left upper midline back, shave biopsy - Desmoplastic melanoma, see synoptic report. RADHA/evelyn 11/09/2018 Imaging: MRI Report MRI BRAIN WO/W IVCON Exam End: 10/17/2022 11:20 AM (Final result) Narrative: * * *Final Report* * * DATE OF EXAM: Oct 17 2022 11:20AM [facility] 0295 - MRI BRAIN WO/W IVCON [...] with air-fluid level suggestive of acute/active sinusitis. House Painter: TORI Transcribe Date/Time: Oct 17 2022 11:35A [...] which included preparing to see the patient, vhrq-vy-bgzp patient care, completing clinical documentation, obtaining and/or reviewing separately obtained history, performing a medically appropriate examination, counseling and educating the pat ient/family/caregiver, ordering medications, tests, or procedures, communicating with other HCPs (not separately reported), independently interpreting results (not separately reported), communicatingresults to the patient/family/caregiver, and care coordination (not separately reported). Gurpreet Beckwith DO, PhD cc: Ben Licona- muna Echeverria- muna documented in this encounterHolzer Medical Center – [place]07-31-2023 Evaluation note* Encounter Date Diagnosis Assessment Notes Treatment Notes Treatment Clinical Notes Oct, Screen for colon cancer (ICD-10 - Z12.11) Reviews42 Other 07-19-2023 NoteHNO ID: [id number] Author: Luis Licona MD Service: ? Author [...] resident's medical decisio (more content not included)... [facility]07-19-2023 History of Present illness Narrative* Luis Licona MD - 10/19/2022 4:30 PM EDT Radiation Oncology - Follow Up Note [facility] DISTANCE HEALTH VISIT This visit is a [...] Luis Licona MD cc: Debbie Echeverria [address] [address] documented in this encounterHolzer Medical Center – [place]07-18-2023 NoteHNO ID: [id number] Author: Trista Bonilla APRN.CNP Service: ? Author Type: Nurse Practitioner Type: Progress Notes Filed: 10/19/2022 12:11 AM Note Text: Elements of this note, including HPI, ROS, Physical Exam, Assessment and Plan were copied and pasted from 02/28/22 encounter with me. Updates have been made where noted and reflect current exam and medical decision making from October 18, 2022. Trista Bonilla APRN.SHERITA. [facility] DISTANCE HEALTH VISIT This visit is a Virtual MyChart video visit encounter which required patient-provider interaction for the medical decision making as documented below. Persons Present: patient Ben Cruz has consented to this distance health encounter. Total Time Spent: more than 20 minutes ezmq-dp-yfxh with the patient and over half the [...] DATE OF EXAM: Oct 17 2022 11:20AM [facility] 0295 - MRI BRAIN WO/W IVCON [...] with air-fluid level suggestive of acute/active sinusitis. House Painter: TORI Transcribe Date/Time: Oct 17 2022 11:35A [...] Moves all extremities purp (more content not included)...[facility]07-18-2023 History of Present illness Narrative* Trista Bonilla APRN.SHERITA - 10/18/2022 10:30 AM EDT Elements of this note, including HPI, ROS, Physical Exam, Assessment and Plan were copied and pasted from 02/28/22 encounter with me. Updates have been made where noted and reflect current exam and medical decision making from October 18, 2022. Trista Bonilla APRN.SHERITA. [facility] DISTANCE HEALTH VISIT This visit is a Virtual MyChart video visit encounter which required patient- provider interaction for the medical decision making as documented below. Persons Present: patient Ben Cruz has consented to this distance health encounter. Total Time Spent: more than 20 minutes frbn-wi-rdzq with the patient and over half the [...] DATE OF EXAM: Oct 17 2022 11:20AM [facility] 0295 - MRI BRAIN WO/W IVCON [...] with air-fluid level suggestive of acute/active sinusitis. House Painter: [facility]Whit Transcribe Date/Time: Oct 17 2022 11:35A Dictated [...] Clinically stable. - MRI reviewed with Dr. Liocna and reports 1 mm growth of subcentimeter [...] treatment options, per patient request. Trista Bonilla APRN.DROP TESTER Cc: Dr. Luis Echeverria documented in this encounterHolzer Medical Center – [place]07-17-2023 NoteHNO ID: [id number] Author: Nidia Morelos RN Service: Nursing Author [...] Cruz DATE: October 17, 2022 TIME: 10:40 [facility]07-17-2023 NoteHNO ID: [id number] Author: Barbara Gaxiola, resident care aide Service: Radiology Author Type: Nail Polish Brush Machine Feeder Type: Progress Notes Filed: 10/17/2022 10:54 AM [...] Site disposition Discontinued SIGNED BY: Barbara Gaxiola resident care aide October 17, 2022 10:53 [facility]07-17-2023 History of Present illness [...] 2022 TIME: 10:40 AM * Barbara Gaxiola resident care aide - 10/17/2022 10:40 AM EDT Radiology Service [...] 17, 2022 10:53 AM documented in this encounterHolzer Medical Center – [place]06-21-2023 Evaluation note* Encounter Date Diagnosis Assessment Notes [...] the berberine and get back to patient. Reviews42 Other 05-31-2023 Miscellaneous Notes* Telephone Encounter - Trista Bonilla APRN.CNP - 08/31/2022 4:35 PM EDT Ativan sent to preferred pharmacy per patient request prior to MRI. PDMP website checked and validated. All prescriptions have been APPROPRIATELY filled. No suspiciousactivity was identified. 08/31/2022 by Trista Bonilla APRN.CNP * Telephone Encounter - Adriana Brown - 08/31/2022 4:10 PM EDT Patient called in to ask for a prescription of Atavan sent to her local [facility] prior to her scheduled MRI on 09/05. Prescription should be sent to the [facility] in [place] on [address]. [facility] [phone] [place] [address] documented in this encounterHolzer Medical Center – [place]03-21-2023 NoteHNO ID: [id number] Author: Debbie Echeverria MD Service: ? Author Type: Physician Type: Progress Notes Filed: 06/21/2022 11:09 AM Note Text: June 21, 2022 DXN: Resected T4aN0 desmoplastic melanoma. The lesion was about 4.5mm located on her back with 2 negative SLNs (left axilla). There was no reported neurtropism and only one mitotic figure. Margins were negative. Declined an adjuvant trial in saxis. Baseline imaging today is negative CC: Melanoma [...] with more than 50% of the total crvh-jf-xcvi time of the visit in counseling / coordination of care. Debbie Echeverria, [facility]03-21-2023 History of Present illness Narrative* Debbie Echeverria MD - 06/21/2022 11:08 AM EDT June 21, 2022 DXN: Resected T4aN0 desmoplastic melanoma. The lesion was about 4.5mm located on her back with 2 negative SLNs (left axilla). There was no reported neurtropism and only one mitotic figure. Margins were negative. Declined an adjuvant trial in saxis. Baseline imaging today is negative CC: Melanoma [...] with more than 50% of the total bcmh-dz-bfgr time of the visit in counseling / coordination of care. Debbie Echeverria MD documented in this encounterHolzer Medical Center – [place]03-21-2023 Nurse Note* Vanessa Giang LPN - 06/21/2022 10:29 AM EDT Additional intake questions: Has the patient had fever, nausea, vomiting, diarrhea, constipation, fatigue for > 1 week? Yes, fatigue and Provider Notified Does the patient have a decreased appetite? No Does patient want to see a Veterinary Medical Officer? No (yes to any of above refer patient to schedulers for dietitian appointment) ) Does patient have any new or increased numbness or tingling of extremities? No Is patient interested in fertility information? NA Does patient need any prescription refills? No Does patient have an advanced directive in place? No, Patient refused referral to Social Work or Resource Center documented in this encounterHolzer Medical Center – [place]11-28-2022 History of Present illness Narrative* Trista Bonilla APRN.DROP TESTER - 02/28/2022 10:30 AM EST [facility] DISTANCE HEALTH VISIT This visit is a Virtual MyChart video visit encounter which required patient- provider interaction for the medical decision making as documented below. Persons Present: patient Ben Cruz has consented to this distance health encounter. 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 She denies focal weakness, dizziness, gait instability, or seizures. Data Reviewed: MRI Report MRI BRAIN WO/W IVCON Exam End: 02/23/2022 11:31 AM (Final result) Narrative: * * *Final Report* * * DATE OF EXAM: Feb 23 2022 11:31AM [facility] 0295 - MRI BRAIN WO/W IVCON [...] unremarkable MRI brain with and without contrast. House Painter: [facility] Transcribe Date/Time: Feb 23 2022 11:50A Dictated [...] She will continue to get MRI at [facility] and present in VV follow up. Trista Bonilla APRN.SHERITA Cc: Dr. Luis Echeverria documented in this encounterHolzer Medical Center – [place]11-23-2022 History of Present illness Narrative* Nidia Morelos [...] 2022 TIME: 10:33 AM * Barbara Gaxiola resident care aide - 02/23/2022 10:40 AM EST Radiology Service [...] 23, 2022 10:57 AM documented in this encounterHolzer Medical Center – [place]09-20-2022 History of Present illness Narrative* Debbie Echeverria MD - 12/21/2021 1:37 PM EDT December 21, 2021 DXN: Resected T4aN0 desmoplastic melanoma. The lesion was about 4.5mm located on her back with 2 negative SLNs (left axilla). There was no reported neurtropism and only one mitotic figure. Margins were negative. Declined an adjuvant trial in saxis. Baseline imaging today is negative CC: Melanoma [...] with more than 50% of the total acrz-dv-ojfp time of the visit in counseling / coordination of care. Debbie Echeverria MD documented in this encounterHolzer Medical Center – [place]09-20-2022 Nurse Note* Tiny Mckoy LPN - 12/21/2021 1:20 PM EDT Additional intake questions: Has the patient had fever, nausea, vomiting, diarrhea, constipation, fatigue for > 1 week? Yes, fatigue Does the patient have a decreased appetite? No Does patient want to see a Veterinary Medical Officer? No (yes to any of above refer patient to schedulers for dietitian appointment) ) Does patient have any new or increased numbness or tingling of extremities? No Is patient interested in fertility information? No Does patient need any prescription refills? No Does patient have an advanced directive in place? No, Patient refused referral to Social Work or Resource Center documented in this encounterHolzer Medical Center – [place]09-02-2022 Miscellaneous Notes* Telephone Encounter - Jaylene Jacobson RN - 12/03/2021 12:49 PM EDT Patient needs a follow up visit (no labs or scans) around 12/25/21. She accepted a visit on 12/21 at 1:30 pm. Jaylene Jacobson RN * Telephone Encounter - Mary Lindsay - 12/01/2021 4:45 PM EDT Ben Cruz is calling Debbie Echeverria MD today regarding Room Worker - Other Patient called scheduling to schedule 6 mo follow up but was unable to get thru, so calling office for Dr. Echeverria to get it scheduled. Can she be called once appointment is made? Patient has been identified by name and birthdate. Requesting response back: [phone] (home) [phone] (cell) Mary ClaudiaTomasa December 01, 2021 documented in this encounterHolzer Medical Center – [place]05-23-2022 History of Present illness Narrative* Luis Licona [...] an updated MRI in 6 months in [place] followed by a virtual visit for further meningioma surveillance, with additional surveillance plan to be developed thereafter. Zhanna Le MD Radiation Oncology Resident [phone] STAFF ADDENDUM I saw and evaluated the [...] brain. Luis Licona MD cc: Debbie Echeverria [id number] [facility] [id number] documented in this encounterHolzer Medical Center – [place]05-23-2022 History of Present illness Narrative* Nidia Morelos [...] 23, 2021 12:14 PM documented in this encounterHolzer Medical Center – [place]03-16-2022 History of Present illness Narrative* Nazanin Moncada [...] 16, 2021 10:35 AM documented in this encounterHolzer Medical Center – [place]03-01-2022 History of Present illness Narrative* Barbara Gaxiola [...] 2021 TIME: 11:13 AM documented in [facility]Mc[facility] No data available for this section General Surgery [place] Evaluation note* Diagnosis 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 documented in this encounter [facility]* Diagnosis 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 documented in this encounter [facility] note* Diagnosis Benign neoplasm of meninges (HCC)- Primary Benign neoplasm of cerebral meninges documented in this encounter [facility] note* Diagnosis 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) documented in this encounter [facility] noteNo InformationNort Aspida Other Evaluation note* Diagnosis Meningioma (HCC)- Primary Benign neoplasm of cerebral meninges documented in this encounter [facility] note* Diagnosis Meningioma (HCC)- Primary Benign neoplasm of cerebral meninges documented in this encounter [facility] note* Diagnosis Benign neoplasm of meninges (HCC)- Primary Benign neoplasm of cerebral meninges documented in this encounter [facility] note* Diagnosis Benign neoplasm of meninges (HCC)- Primary Benign neoplasm of cerebral meninges documented in this encounter [facility] note* Diagnosis Benign neoplasm of meninges (HCC)- Primary Benign neoplasm of cerebral meninges documented in this encounter [facility] note* Diagnosis Benign neoplasm of meninges (HCC)- Primary Benign neoplasm of cerebral meninges documented in this encounter [facility] note* Diagnosis 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 documented in this encounter [facility] note* Diagnosis 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 documented in this encounter [facility] note* Diagnosis 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 documented in this encounter [facility] note* Diagnosis 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) Liver lesion Other specified disorders of liver documented in this encounter [facility] note* Diagnosis 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 documented in this encounter [facility] general Narrative - Reported* Type Description Date Medical History melanoma Surgical History laminectomy Surgical History c-sectionx 2 Surgical History hysterectomy Surgical History lump removed right wrist Surgical History melanoma removal Reviews42 Other History general Narrative - ReportedNoVandalia Research Other History general Narrative - Reported* Type Description Date Medical History melanoma Surgical History laminectomy Surgical History c-sectionx 2 Surgical History hysterectomy Surgical History lump removed right wrist Surgical History melanoma removal Surgical History Colonoscopy 03/2023 Reviews42 Other Hospital Discharge instructions No data available for this section General Surgery Jayjay Progress note No data available for this section General Surgery Jayjay Reason for Referral Specialty Diagnoses / Procedures Referred By Contac t Referred To Contact MR IMAGING Diagnoses Benign neoplasm of meninges (HCC) Procedures MRI BRAIN WO/W IVCON MRI BRAIN BRAIN STEM W/O W/[place] [address] [place] [address] Mr Imaging Referral ID Status Reason Start Date Expiration Date Visits Requested Visits Authorized [id number] Pending Review Auto-Generat ed Referral 08/23/2021 09/22/2022 1 1 Specialty Diagnoses / Procedures Referred By Contac t Referred To Contact MR IMAGING Diagnoses Benign neoplasm of meninges (HCC) Procedures MRI BRAIN WO/W IVCON MRI BRAIN BRAIN STEM W/O W/CONTRAST MATERIAL Trista Bonilla APRN.DROP TESTER [address] [place] [address] Mr Imaging Referral ID Status Reason Start Date Expiration Date Visits Requested Visits Authorized [id number] Pending Review Auto-Generat ed Referral 08/29/2022 03/31/2023 1 1 Reason *FU 11/15 screenin g colonoscopy Diagnosis 1 Screen for colon can cer (Z12.11) Referral Organization [facility] elias Referring Provider First Name Lissett Referring Provider Last Name Gary Referring Provider Specialty Family [facility] Referred Organization [facility] Referred Provider Tucker Ann Referred Address [address] [place], [place],[address] Referred Provider Specialty General Surg katelyn Referral Priority Routine General Notes Louise Livingston 10:47:05 AM >received today, attachments made, notes locked, referral faxed Clinical Notes F: [phone] Specialty Diagnoses / Procedures Referred By Contac t Referred To Contact MR IMAGING Diagnoses Benign neoplasm of meninges (HCC) Procedures MRI BRAIN LOCALIZATION W IVCON UNLISTED MAGNETIC RESONANCE PROCED Gurpreet Beckwith DO, PhD [address] [place] [address] [place] [address] Referral ID Status Reason Start Date Expiration Date V isits Requested Visits Authorized [id number] Closed Auto-Generate d Referral 12/06/2022 1 1 Specialty Diagnoses / Procedures Referred By Contac t Referred To Contact MR IMAGING Diagnoses Benign neoplasm of meninges (HCC) Procedures MRI BRAIN WO/W IVCON MRI BRAIN BRAIN STEM W/O W/[place] [address] [place] [id number] Mr Imaging [facility] Referral ID Status Reason Start Date Expiration Date V isits Requested Visits Authorized [id number] Closed Auto-Generate d Referral 06/21/2021 09/18/2021 1 1 Specialty Diagnoses / Procedures Referred By Contac t Referred To Contact MR IMAGING Diagnoses 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) Liver lesion Procedures MRI LIVER WO/W IVCON MRI ABDOMEN W/O & W/[place] [address] [place] [address] Mr Imaging [place] [address] Referral ID Status Reason Start Date Expiration Date V isits Requested Visits Authorized [id number] Closed Auto-Generate d Referral 05/20/2021 07/11/2021 1 1 Specialty Diagnoses / Procedures Referred By Contac t Referred To Contact MR IMAGING Diagnoses Benign neoplasm of meninges (HCC) Procedures MRI BRAIN WO/W IVCON MRI BRAIN BRAIN STEM W/O W/CONTRAST MATERIAL Trista Bonilla APRN.DROP TESTER [address] [place] [id number] Mr Imaging [place] [address] Referral ID Status Reason Start Date Expiration Date V isits Requested Visits Authorized [id number] Closed Auto-Generate d Referral 08/29/2022 03/31/2023 1 1 Referral ID Status Reason Start Date Expiration Date V isits Requested Visits Authorized [id number] Closed Auto-Generate d Referral 08/23/2021 03/20/2022 1 1 Summary Purpose Family History No Family History Records FoundNo Family History Records Found No data available for this section No Family History Records FoundNo Family History Records FoundNo Family History Records FoundNo Family History Records Found Advance Directives No [...] or prosecute any alcohol or drug abuse patient.Hol[facility] – JacksonIn the event this information is protected by the Federal Confidentiality of Alcohol and Drug Abuse Patient Records regulations: The Federal rules restrict any use of the information to criminally investigate or prosecute any alcohol or drug abuse patient.Hol[facility] Center – JacksonIn the event this information is protected by the Federal Confidentiality of Alcohol and Drug Abuse Patient Records regulations: The Federal rules restrict any use of the information to criminally investigate or prosecute any alcohol or drug abuse patient.[facility] [place]In the event this information is protected by the Federal Confidentiality of Alcohol and Drug Abuse Patient Records regulations: The Federal rules restrict any use of the information to criminally investigate or prosecute any alcohol or drug abuse patient.[facility] JacksonIn the event this information is protected by the Federal Confidentiality of Alcohol and Drug Abuse Patient Records regulations: The Federal rules restrict any use of the information to criminally investigate or prosecute any alcohol or drug abuse patient.[facility] JacksonIn the event this information is protected by the Federal Confidentiality of Alcohol and Drug Abuse Patient Records regulations: The Federal rules restrict any use of the information to criminally investigate or prosecute any alcohol or drug abuse patient.[facility] JacksonIn the event this information is protected by the Federal Confidentiality of Alcohol and Drug Abuse Patient Records regulations: The Federal rules restrict any use of the information to criminally investigate or prosecute any alcohol or drug abuse patient.[facility] JacksonIn the event this information is protected by the Federal Confidentiality of Alcohol and Drug Abuse Patient Records regulations: The Federal rules restrict any use of the information to criminally investigate or prosecute any alcohol or drug abuse patient.[facility] JacksonIn the event this information is protected by the Federal Confidentiality of Alcohol and Drug Abuse Patient Records regulations: The Federal rules restrict any use of the information to criminally investigate or prosecute any alcohol or drug abuse patient.[facility] JacksonIn the event this information is protected by the Federal Confidentiality of Alcohol and Drug Abuse Patient Records regulations: The Federal rules restrict any use of the information to criminally investigate or prosecute any alcohol or drug abuse patient.[facility] JacksonIn the event this information is protected by the Federal Confidentiality of Alcohol and Drug Abuse Patient Records regulations: The Federal rules restrict any use of the information to criminally investigate or prosecute any alcohol or drug abuse patient.[facility] JacksonIn the event this information is protected by the Federal Confidentiality of Alcohol and Drug Abuse Patient Records regulations: The Federal rules restrict any use of the information to criminally investigate or prosecute any alcohol or drug abuse patient.[facility] JacksonIn the event this information is protected by the Federal Confidentiality of Alcohol and Drug Abuse Patient Records regulations: The Federal rules restrict any use of the information to criminally investigate or prosecute any alcohol or drug abuse patient.[facility] JacksonIn the event this information is protected by the Federal Confidentiality of Alcohol and Drug Abuse Patient Records regulations: The Federal rules restrict any use of the information to criminally investigate or prosecute any alcohol or drug abuse patient.[facility] JacksonIn the event this information is protected by the Federal Confidentiality of Alcohol and Drug Abuse Patient Records regulations: The Federal rules restrict any use of the information to criminally investigate or prosecute any alcohol or drug abuse patient.[facility] JacksonIn the event this information is protected by the Federal Confidentiality of Alcohol and Drug Abuse Patient Records regulations: The Federal rules restrict any use of the information to criminally investigate or prosecute any alcohol or drug abuse patient.[facility] JacksonIn the event this information is protected by the Federal Confidentiality of Alcohol and Drug Abuse Patient Records regulations: The Federal rules restrict any use of the information to criminally investigate or prosecute any alcohol or drug abuse patient.[facility] JacksonIn the event this information is protected by the Federal Confidentiality of Alcohol and Drug Abuse Patient Records regulations: The Federal rules restrict any use of the information to criminally investigate or prosecute any alcohol or drug abuse patient.[facility] JacksonIn the event this information is protected by the Federal Confidentiality of Alcohol and Drug Abuse Patient Records regulations: The Federal rules restrict any use of the information to criminally investigate or prosecute any alcohol or drug abuse patient.[facility] JacksonIn the event this information is protected by the Federal Confidentiality of Alcohol and Drug Abuse Patient Records regulations: The Federal rules restrict any use of the information to criminally investigate or prosecute any alcohol or drug abuse patient.[facility] JacksonIn the event this information is protected by the Federal Confidentiality of Alcohol and Drug Abuse Patient Records regulations: The Federal rules restrict any use of the information to criminally investigate or prosecute any alcohol or drug abuse patient.[facility] JacksonIn the event this information is protected by the Federal Confidentiality of Alcohol and Drug Abuse Patient Records regulations: The Federal rules restrict any use of the information to criminally investigate or prosecute any alcohol or drug abuse patient.[facility] JacksonIn the event this information is protected by the Federal Confidentiality of Alcohol and Drug Abuse Patient Records regulations: The Federal rules restrict any use of the information to criminally investigate or prosecute any alcohol or drug abuse patient.[facility] JacksonIn the event this information is protected by the Federal Confidentiality of Alcohol and Drug Abuse Patient Records regulations: The Federal rules restrict any use of the information to criminally investigate or prosecute any alcohol or drug abuse patient.[facility] JacksonIn the event this information is protected by the Federal Confidentiality of Alcohol and Drug Abuse Patient Records regulations: The Federal rules restrict any use of the information to criminally investigate or prosecute any alcohol or drug abuse patient.[facility] JacksonIn the event this information is protected by the Federal Confidentiality of Alcohol and Drug Abuse Patient Records regulations: The Federal rules restrict any use of the information to criminally investigate or prosecute any alcohol or drug abuse patient.[facility] JacksonIn the event this information is protected by the Federal Confidentiality of Alcohol and Drug Abuse Patient Records regulations: The Federal rules restrict any use of the information to criminally investigate or prosecute any alcohol or drug abuse patient.[facility] Reason for Visit (unrecogniz ed section and content) Reason Comments Radiology MRI Specialty Diagnoses / Procedures Referred By Sandraac t Referred To Contact ADMITTING Diagnoses Benign neoplasm of meninges (HCC) Procedures RADIATION DELIVERY STEREOTACTIC CRANIAL COBALT STEREOTACTIC RADIOSURGERY 1 COMPLEX CRANIAL LES RADIATION [place] STEREOTACTIC RADIOSURGERY (SRS) TX CRANIAL LESION(S) 1 SESSION MULTI-SOURCE COBALT STEREOTACTIC RADIOSURGERY 1 COMPLEX CRANIAL LESION [facility] [address] [address] Referral ID Status Reason Start Date Expiration Date Visits Re quested Visits Authorized [id number] [address] Specialty Diagnoses / Procedures Referred By Sandraac t Referred To Contact ADMITTING Diagnoses Benign neoplasm of meninges (HCC) Procedures RADIATION DELIVERY STEREOTACTIC CRANIAL COBALT STEREOTACTIC RADIOSURGERY 1 COMPLEX CRANIAL LES RADIATION [place] STEREOTACTIC RADIOSURGERY (SRS) TX CRANIAL LESION(S) 1 SESSION MULTI-SOURCE COBALT STEREOTACTIC RADIOSURGERY 1 COMPLEX CRANIAL LESION [facility] [address] Reason Comments Recheck Reason Comments Room Worker - Other Reason Comments Established Patient Reason Comments Established Patient Reason Comments Recheck Reason Comments Consult GK consult for LF me ningioma Reason Comments 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 Worker - 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 Reason Comments Procedure GKRS Reason Comments Radiology MRI Specialty Diagnoses / Procedures Referred By Sandraac t Referred To Contact MR IMAGING Diagnoses 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) New daily persistent headache Other headache syndrome Procedures MRI BRAIN WO/W IVCON MRI BRAIN BRAIN STEM W/O W/[place] [address] [place] [id number] [id number] Referral ID Status Reason Start Date Expiration Date V isits Requested Visits Authorized [id number] Closed Auto-Generate d Referral 04/29/2021 06/13/2021 1 1 Specialty Diagnoses / Procedures Referred By Selene t Referred To Contact MR IMAGING Diagnoses Benign neoplasm of meninges (HCC) Procedures MRI BRAIN WO/W IVCON MRI BRAIN BRAIN STEM W/O W/[place] [address] [place] [address] [facility] Referral ID Status Reason Start Date Expiration Date V isits Requested Visits Authorized [id number] Closed Auto-Generate d Referral 06/21/2021 09/18/2021 1 1 Specialty Diagnoses / Procedures Referred By Contac t Referred To Contact MR IMAGING Diagnoses 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) Liver lesion Procedures MRI LIVER WO/W IVCON MRI ABDOMEN W/O & W/[place] [address] [place] [address] [place] [address] Referral ID Status Reason Start Date Expiration Date V isits Requested Visits Authorized [id number] Closed Auto-Generate d Referral 05/20/2021 07/11/2021 1 1 Specialty Diagnoses / Procedures Referred By Contac t Referred To Contact MR IMAGING Diagnoses Benign neoplasm of meninges (HCC) Procedures MRI BRAIN WO/W IVCON MRI BRAIN BRAIN STEM W/O W/CONTRAST MATERIAL Trista Bonilla APRN.CNP [address] [place] [address] [place] [address] Referral ID Status Reason Start Date Expiration Date V isits Requested Visits Authorized [id number] Closed Auto-Generate d Referral 08/29/2022 03/31/2023 1 1 Referral ID Status Reason Start Date Expiration Date V isits Requested Visits Authorized [id number] Closed Auto-Generate d Referral 08/23/2021 03/20/2022 1 1 Reason Comments Gamma Knife Follow-up Reason Comments Appointment [facility] INFORMATION SOURCE (unrecogn ized section and content) DATE CREATED AUTHOR 06/10/2022 [facility] DATE CREATED AUTHOR AUTHOR'S ORGANIZ ATION 02/04/2023 [facility] Center DATE CREATED AUTHOR AUTHOR'S ORGANIZ ATION 03/30/2023 [facility] DATE CREATED AUTHOR AUTHOR'S ORGANIZ ATION 05/13/2023 [facility] DATE CREATED AUTHOR AUTHOR'S ORGANIZ ATION 06/05/2023 [facility] DATE CREATED AUTHOR AUTHOR'S ORGANIZ ATION 06/05/2023 [facility] Care Teams (unrecognized sec tion and content) Still Operator Batch Or Continuous Relationship Specialty Start Date End Date Lissett Vega MD [address] [facility] [place] [phone] PCP - General Family Medicine 01/17/23 Still Operator Batch Or Continuous Relationship Specialty Start Date End Date Lissett Vega MD [address] [place] [facility] [place] [phone] PCP - General Family Medicine 01/17/23 Still Operator Batch Or Continuous Relationship Specialty Start Date End Date Lissett Vega MD [address] [place] [facility] [place] [phone] PCP - General Family Medicine 01/17/23 Still Operator Batch Or Continuous Relationship Specialty Start Date End Date Lissett Vega MD [address] [place] [facility] [place] [address] PCP - General Family Medicine 01/17/23 Still Operator Batch Or Continuous Relationship Specialty Start Date End Date Lissett Vega MD [address] [facility] [place] [address] PCP - General Family Medicine 01/17/23 Still Operator Batch Or Continuous Relationship Specialty Start Date End Date Lissett Vega MD [address] [place] [phone] PCP - General Family Medicine 01/17/23 Still Operator Batch Or Continuous Relationship Specialty Start Date End Date Lissett Vega MD [address] [place] [facility] [address] PCP - General Family Medicine [...] BE BASED ON THE PRIMARY CLINICAL RECORDS. [facility]. provides no warranty or guarantee of the accuracy or completeness of information in this document.
--- NOTE | 2023-06-07 08:02 | US_ITS ---
The [address] [address] Patient Name: BEN TABOR MRN: [id number] date: 1975 Sex: F Assigned Patient Location: [facility] Current Patient Location: [facility] Accession/Order Number: [id number] Exam Date: 06/07/2023 08:01 Report Date: 06/07/2023 08:55 At the request of: VETO SHIN Procedure: US pelvis w/ transvaginal EXAMINATION: US pelvis w/ transvaginal HISTORY: OVARIAN CYST COMPARISON: 03/22/2023 CT exam FINDINGS: The uterus is surgically absent The right ovary is normal in size, contour and echotexture measuring 2.4 x 1.4 x 1.3 cm. Normal color and Doppler flow. The ovarian cyst seen by CT, seen on today's exam Left ovary is nonvisualized No free fluid US/US pelvis w/ transvaginal IMPRESSION: Resolution of previously identified right ovarian cyst Electronically authenticated by: ZHANNA DELONG Date: 06/07/2023 08:55
== END 2023-06-07 07:59 | disposition home or self-care (01) ==
LOC: NOMS 07:59
PROVIDERS: PCP Family Medicine; Visit Provider Obstetrics & Gynecology
DX: N83.209 Unspecified ovarian cyst, unspecified side (principal)
CPT/HCPCS: 76830; 76856

== ENCOUNTER 2023-06-16 09:52 | Outpatient (OUT) | payer OTHER, SELFPAY ==
--- NOTE | 2023-06-16 | XR_ITS ---
The [address] [address] Patient Name: BEN TABOR MRN: [id number] date: 1975 Sex: F Assigned Patient Location: Current Patient Location: Accession/Order Number: [id number] Exam Date: 06/16/2023 09:55 Report Date: 06/18/2023 12:25 At the request of: ALEKSANDER FALCON Procedure: XR foot LT min 3V PROCEDURE: XR foot LT min 3V HISTORY: LEFT FOOT PAIN COMPARISON: XR foot left 05/31/2023 FINDINGS: BONES:Posterior calcaneal osteotomy and repair. Resection of lateral aspect of 5th metatarsal head. Lucency, possibly erosive changes involving the lateral aspect of third metatarsal head. Mild flattening of plantar arch. SOFT TISSUES:No visible soft tissue swelling. EFFUSION:None visible. OTHER: Negative. XR/XR foot LT min 3V IMPRESSION: 1. Stable surgical changes without evidence of hardware failure or change in alignment. 2. Osteopenia and lucency versus erosive changes involving the lateral aspect of third metatarsal head. 3. aNo acute bone abnormality. Mild degenerative changes. Electronically authenticated by: YASSINE SANCHEZ Date: 06/18/2023 12:25
--- OUTSIDE RECORDS SUMMARY | 2023-06-16 09:57 | XMS_ITS | CCD ---
Author Name Unknown Address [address] [place] [address] Organization [facility] Care Team Providers Care Chief Librarian Circulation Department Name Role Phone Unavailable Primary Care Provider Jacqueline VEGA, DR LISSETT Fung Admitting Unavailable GARY, DR LISSETT Fung Attending Unavailable GARY, DR LISSETT Fung Primary Care Unavailable [facility], DR MONCADA Consulting Unavailable GARY, DR LISSETT Fung Consulting Unavailable GARY, DR LISSETT Fung Admitting Unavailable VEGA, DR LISSETT Fung Attending Unavailable GARY, DR [...] KARASIK ., DR MERLOS Consulting Unavailabl e WEST, DR ZHANNA Judd Consulting Unavailable GARY, DR LISSETT Fung Admitting Unavailable VEGA, DR LISSETT Fung Attending Unavailable GARY, DR LISSETT Fung Primary Care Unavailable GARY, DR LISSETT Fung Consulting Unavailable Unavailable Primary Care Provider UnavailLissett Hardwick Unavailable Lissett Vega MD Primary Care Provider [phone] LISSETT VEGA Primary Care Physician Debbie DE LOS SANTOS Attending Unavailable Debbie DE LOS SANTOS Attending Unavailable VETO SHIN Attending Unavailable Jes Vieira Admitting Unavailable Jes Vieira Attending Unavailable Lissett Vega Primary Care Unavailable Lissett Vega Primary Care Unavailable Taz Rossi Admitting Unavailable Taz Rossi Attending Unavailable LISSETT VEGA Primary Care Unavailable BURAK PRAKASH Attending Unavailable BECKWITH, GURPREET Admitting Unavailable BECKWITH, GURPREET Attending Unavailable BECKWITH, GURPREET Referring Unavailable VEGA, LISSETT E Primary Care Unavailable DEBBIE ECHEVERRIA Referring Unavailable TRISTA BONILLA Attending Unavailable DEBBIE ECHEVERRIA Referring Unavailable LUIS LICONA Attending Unavailable BECKWITH, GURPREET Attending Unavailable BECKWITH, GURPREET Referring Unavailable BECKWITH, GURPREET Admitting Unavailable DEBBIE ECHEVERRIA Attending Unavailable DEBBIE ECHEVERRIA Referring Unavailable DEBBIE ECHEVERRIA Attending Unavailable VEGA, LISSETT E Primary Care Unavailable BECKWITH, GURPREET Attending Unavailable BECKWITH, GURPREET Referring Unavailable BECKWITH, GURPREET Admitting Unavailable VEGA, LISSETT E Primary Care Unavailable TRISTA BONILLA Referring Unavailable BECKWITH, GURPREET Attending Unavailable DEBBIE ECHEVERRIA Attending Unavailable BECKWITH, GURPREET Admitting Unavailable BECKWITH, GURPREET Attending Unavailable BECKWITH, GURPREET Referring Unavailable VEGA, LISSETT E Primary Care Unavailable VEGA, LISSETT E Primary Care Unavailable BURAK PRAKASH Attending Unavailable BECKWITH, GURPREET Referring Unavailable VEGA, LISSETT E Primary Care Unavailable Allergies Allergy Classification Reported Allergen(s) Allergy Type Date of Onset Reaction(s) Facility (5 sources) patient allergy list reviewed by nurse or physicia Propensity to adverse reactions Comment:Done [employer] Other (5 sources) Allergies Reconciled Propensity to adverse reactions Unknown [employer] Other (1 source) No Known Medication Allergies; Translations: [No Known Medication Allergies] Propensity to adverse reactions (disorder) [facility] Repository Medications Current Medications Medication Drug [...] Sig (Original) dexamethasone 4 mg oral tablet (9 sources) Corticosteroid Start: 01-28-2023 dexAMETHasone (DECADRON) 4 [...] daily for 4 days, then stop Decadron 1 ml evolocumab 140 mg/ml auto-injector (1 source) PCSK9 Inhibitor Start: 024 inject 140 mg by subcutaneous injection every other week REPATHA SURECLICK 140 mg/mL pen injector Inject 140 mg subcutaneously every 2 weeks. 0 06/06/2023 Active Comment on above: Inject 140 mg subcut aneously every 2 weeks. famotidine 20 mg oral tablet (9 sources) Histamine-2 Receptor Antagonist Start: 023 take 1 tablet by mouth once daily famotidine (PEPCID) 20 mg tablet Take 1 tablet by mouth once daily. 6 tablet 0 01/28/2023 Active Start: 01-28-2023 take 1 tablet by petra once daily famotidine (PEPCID) 20 mg tablet Take 1 tablet by mouth once daily. 6 tablet 0 01/28/2023 Active Comment on above: Take 1 tablet by petra once daily. inclisiran (LEQVIO) 284 mg/1.5 mL [...] eye, unspecified eyelid] Episodic Melanomas of skin (5 sources) Malignant melanoma of trunk; Translations: [Malignant [...] Test Name Value Interpretation Reference Range Facility [facility] 06-13-2023 [facility] Visit (SP) Office ([facility]) ----- BEN CRUZ ([id number]) 1975 F Date Time Provider Department 06/13/23 9:30 AM DEBBIE ECHEVERRIA [facility] During your visit today, we recorded the following information about you: Temperature Pulse Respiration Blood pressure 97.6 degrees 79/minute 20/minute 142/92 Weight 95.8 kg Nicole Beal MD 06/14/2023 3:36 PM Addendum [facility] GASTROENTEROLOGY ONCOLOGY ESTABLISHED PATIENT VISIT PATIENT NAME: Ben Cruz : 1975 ATTENDING PHYSICIAN: Dr Echeverria DATE OF SERVICE: June 13 2023 DIAGNOSIS: Desmoplastic melanoma HISTORY OF PRESENT ILLNESS: 47 year old female with 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 On diagnosis, her lesion was about 4.5 mm located on her back with 2 negative sentinel lymph nodes in the left axilla. No reported neurtropism and only one mitotic figure. Margins were negative. No additional treatment was pursued given the low risk of distant melanoma and risk of recurrence for stage II at around 20%. Clinical trial was considered initially but she did not pursue it. She has been monitored via surveillance. Last seen in December 2022 INTERVAL HISTORY: Since last visit, she had a gamma knife procedure for her meningioma in January which went well. Denies any complication from the procedure and is scheduled to follow up visit with an MRI in September. Since last visit, no new issues and last visit with brush clearer surveying was about 6 months ago. She denies any nausea, vomiting, fevers, chills, night sweats, decreased appetite, headaches, dizziness, chest pain, shortness of breath, heart palpitations, abdominal pain, constipation, diarrhea, numbness, tingling, weakness, urinary and fecal issues, dark stools, bright red stools or hematuria. REVIEW OF SYSTEMS:As per HPI MEDICATIONS: REPATHA SURECLICK 140 mg/mL pen injector Inject 140 mg subcutaneously every 2 weeks. dexAMETHasone (DECADRON) 4 mg tablet Start the day after your Gamma Knife Procedure: Decadron (Dexamethasone), Take 4 mg (1 tablet) daily for 4 days, Take 2 mg (1/2 tablet) daily for 4 days, then stop Decadron famotidine (PEPCID) 20 mg tablet Take 1 tablet by mouth once daily. meloxicam (MOBIC) 15 mg tablet inclisiran (LEQVIO) 284 mg/1.5 mL injection omeprazole (PRILOSEC) 20 mg capsule Take 20 mg by mouth once daily. ALLERGIES No Known Allergies PHYSICAL EXAMINATION: BP 142/92 Pulse 79 Temp 36.4 ?C (97.6 ?F) (Temporal) Resp 20 Wt 95.8 kg (211 lb 3.2 oz) LMP 09/08/2019 SpO2 96% BMI 35.19 kg/m? Body surface area is 2.1 meters squared. General appearance: Well appearing, alert, in no acute distress, well-hydrated, well nourished. Skin: Inspected prior surgical site with well healed scar on left upper back, no melanotic lesions visualized and satellite lesions visualized Head: Normocephalic Eyes: Anicteric sclera Neck: Supple. Lungs: No respiratory distress Lower Extremities - no edema LABS: Latest Ref Rng AND Units 01/24/2019 CBC WBC 3.70 - 11.00 k/uL 8.14 RBC 3.90 - 5.20 m/uL 4.99 Hemoglobin 11.5 - 15.5 g/dL 14.1 Hematocrit 36.0 - 46.0 % 43.5 MCV 80.0 - 100.0 fL 87.2 MCH 26.0 - 34.0 pG 28.3 MCHC 30.5 - 36.0 g/dL 32.4 RDW-CV 11.5 - 15.0 % 12.1 Platelet Count 150 - 400 k/uL 285 MPV 9.0 - 12.7 fL 8.6 Baso% % 0.2 Abs Neut (ANC) 1.45 - 7.50 k/uL 5.09 Abs Lymph 1.00 - 4.00 k/uL 2.12 Abs Stanislaus <0.87 k/uL 0.72 Abs Eosin <0.46 k/uL 0.19 Abs Baso <0.11 k/uL <0.03 Diff Type Auto Diff Latest Ref Rng AND Units 01/24/2019 CMP Sodium 136 - 144 mmol/L 141 Potassium 3.7 - 5.1 mmol/L 4.4 Chloride 97 - 105 mmol/L 102 CO2 22 - 30 mmol/L 27 Glucose 74 - 99 mg/dL 94 BUN 7 - 21 mg/dL 17 Creatinine 0.58 - 0.96 mg/dL 0.92 EGFR-All Other Races . >60 EGFR- >60 Protein, Total 6.3 - 8.0 g/dL 7.1 Albumin 3.9 - 4.9 g/dL 4.6 Calcium 8.5 - 10.2 mg/dL 9.8 Bilirubin, Total 0.2 - 1.3 mg/dL 0.3 AST 13 - 35 U/L 16 ALT 7 - 38 U/L 16 Alkaline Phosphatase 34 - 123 U/L 60 . 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 Currently on surveillance. - continue to follow up every 6 months - recommend follow up with brush clearer surveying Patient seen and discussed with Gastroenterology Oncology staff, Dr Echeverria Please do not hesitate to contact with questions or concerns. This is a preliminary note which reflects the assessment of the authoring hematology-oncology fellow only. The final assessment and recommendations may be edited by attending physician. Please see attestation. Nicole Beal MD Hematology AND Oncology Fellow I have reviewed the history, physical obtained and documented by the Fellow and I personally participated in all of the beckwith co (more content not included)... Normal [facility] ECG 12 lead ECGon 06-05-2023 ECG 12 lead ECG [facility] [place] [place] [address] Electrocardiograph Report Signed Patient: Ben Cruz MR#: [id number] 3 : 1975 Acct:[id number] Age/Sex: 47 / F ADM Date: 06/05/23 Loc: EKGCARDIO Room: Type: [facility] Attending Dr: Jes Vieira MD Ordering Provider: Jes Vieira MD Date of Service: 06/05/2307/25/1308 ECG/ECG 12 lead ECG: E78.01 - Familial hypercholesterolemia Copies to: Test Reason : Blood Pressure : / mmHG Vent. Rate : 092 BPM Atrial Rate : 092 BPM P-R Int : 148 ms QRS Dur : 076 ms QT Int : 340 ms P-R-T Axes : 071 100 053 degrees QTc Int : 420 ms Normal sinus rhythm Right atrial enlargement Rightward axis Borderline ECG No previous ECGs available Confirmed by Demetri Shah ([id number]) on 06/07/2023 7:37:06 PM Referred By: Electronically Signed By:Demetri Shah Transcribed By: MUS Signed By Demetri Shah MD 06/07/23 1937 [facility] CNCOon 05-12-2023 CNCO Letter Text [facility] CNPNon 05-12-2023 CNPN Telephone ([facility]) ----- BEN CRUZ ([id number]) 1975 F Date Time Provider Department 05/12/23 GURPREET BECKWITH [facility] During your visit today, we recorded the following information about you: Marli Patino 05/12/2023 9:28 AM Signed Per Johann BIRD)-via email: This patient had GK in January and their follow up MRI and appointment was never scheduled. She needs an MRI at [facility] and follow up same day with Ce piña. Schedule this for September please. Appointments scheduled. Mychart and letter sent. Mrali Patino Allergies As of Date: 05/12/2023 (No Known Allergies) Date Reviewed: 01/27/2023 Reviewed by: nAton Terrell, BIGG - Fully Assessed Reason for [...] Encounter Status:Closed by MARLI PATINO on 05/12/23 [facility] Louise 05-11-2023 CNPN Telephone (NSC[facility]) ----- NANCYBEN L ([id number]) 1975 F Date Time Provider Department 05/11/23 JOHANN HENRIQUEZ [facility] During your visit today, we recorded the following information about you: Johann Henriquez, RN 05/11/2023 1:50 PM Signed Ben called in about her follow up MRI for gamma knife. Her appointments have not been scheduled yet. I will send a new request to scheduling. Allergies As of Date: 05/11/2023 (No Known Allergies) Date Reviewed: 01/27/2023 Reviewed by: Anton Terrell, BIGG - Fully Assessed Reason for Visit: Patient Question [1037] Prescriptions as of 05/11/2023 - dexAMETHasone (DECADRON) [...] Encounter Status:Closed by JOHANN HENRIQUEZ on 05/11/23 [facility] Outside Colonoscopyon 2022 Outside Colonoscopy [id number]#[id number] [facility] Reminderson 03-09-2023 Reminders - From: Veronica Jack LPN To: N - Clinical; Sent: 03/09/2023 13:42:54 EST Show up: 02/06/2033 07:00:00 EST Subject: colonoscopy recall Due Date/Time: 03/08/2033 07:00:00 EST Reminder/Recall Patient due for screening colonoscopy 03/08/2033. [facility] Consent for Procedure/Surger yon 02-21-2023 Consent for Procedure/Surgery [id number]#[id number] [facility] Facesheeton 02-20-2023 Facesheet [id number]#1.00TIFF [facility] Ambulatory Visit Summaryon 1 04-19-2022 Ambulatory Visit Summary BEN CRUZ :1975 Visit Date:02/17/2023 Ambulatory Visit Instructions Your Diagnosis Screening for malignant neoplasm of colon Your Care Team Attending Physician - MAGALI MCKINLEY, Debbie Morgan Primary Care Physician - LISSETT VEAG MD This Is Your Medications List Contact [...] you for choosing us for your care. [facility] Louise 02-07-2023 [facility] Telephone ([facility]) ----- BEN CRUZ ([id number]) 1975 F Date Time Provider Department 02/07/23 JOHANN HENRIQUEZ [facility] During your visit today, we recorded the [...] Status:Closed [facility] Telephone ([facility]) ----- EBN CRUZ ([id number]) 1975 F Date Time Provider Department 02/06/23 JOHANN HENRIQUEZ [facility] During your visit today, we recorded the following information about you: Johann Henriquez RN 02/06/2023 1:20 PM Signed Calling Ben for post-GKRS follow-up. Unable to reach at this time. Left voicemail. Johann Henriquez RN 02/07/2023 1:19 PM Signed 2nd attempt to reach out, patient unavailable. Will send Maven7 message with contact information to call if [...] Encounter Status:Closed by JOHANN HENRIQUEZ on 02/07/23 [facility] CNOPon 01-27-2023 CNOP Operative Note (Enc) ([facility]) ----- Encounter Status:Closed by GURPREET BECKWITH on 01/27/23 [facility] CNOP Operative Note (Enc) ([facility]) ----- Encounter Status:Closed by GURPREET BECKWITH on 01/27/23 [facility] CNOVon 01-27-2023 CNOV Office Visit ([facility] ) ----- BEN CRUZ ([id number]) 1975 F Date Time Provider Department 01/27/23 [...] 7.1 AL (more content not included)... Normal [facility] CNOV Office Visit (NOGA ) ----- BEN CRUZ ([id number]) 1975 F Date Time Provider Department 01/27/23 8:30 AM MASK PLACEMENT NEUS [facility] During your visit today, we recorded the [...] Dr. Aria Beckwith, , Gayle Acevedo RN 0708 Mask SIM completed. Ben Felix Nancy returned to department for treatment # 1 of 1. Is patient receiving immunotherapy infusions: Not Applicable. Patient's Age: 47 Menstruation Status: Hysterectomy 2019 [facility] Results: N/A test not performed QC: Yes, testing is valid (or protocol followed for invalid testing). Reference range: Normal Value = Negative for hCG. POC performed by: Gayle Acevedo RN [id number] 4 mg Decadron PO given prior to GKRS per order of Dr. Virgil Beckwith 0992 GKRS start time. 1016 GKRS end time. 1025 Discharge instructions given to patient; instructions reviewed by this RN; patient/family verbalized understanding; patient discharged via/with BIGG Segura Kaitlin, RN 01/27/2023 8:35 AM Addendum [facility] Gamma Knife Center Discharge Instructions As [...] a physician or hospital other than the [facility] with any problem related to the [...] may your physician, Dr. Virgil Beckwith at [phone] Monday through Monday 8:00 am to 5:00 pm, or call the Gamma Knife nurse Monday through Monday 8:00 am to 4:00 pm at [phone]. In the evening or on weekends, call [phone] or toll-free [phone] and ask the binder operator to page your neurosurgeon's resident pulmonary disease specialist. Referring Provider: GURPREET BECKWITH [[id number]] Allergies As [...] [D32.9] 01/27/2023 Other instructions from your clinician: [facility] Gamma Knife Center Discharge Instructions As with any surgery there are risks and potential side effects. Th (more content not included)... Normal [facility] CT BRAIN WO IVCONon 01-28-20 CT BRAIN [...] were required COMPARISON: Concurrent brain MRI RESULT: Polysomnography Technician (topogram) images: No additional findings. Post-operative change: [...] OF EXTRA-AXIAL ENHANCING TISSUE SEEN ON MRI Apartment House Manager: TORI Transcribe Date/Time: Jan 27 2023 8:21A Dictated by : ESTUARDO WHALEY MD This examination was interpreted and the report reviewed and electronically signed by: ESTUARDO WHALEY MD on Jan 27 2023 8:23AM EST [id number] Normal [facility] MRI BRAIN LOCAL W IVCONon [...] FRONTAL LOBE, UNCHANGED GOING BACK TO 06/01/2021 Apartment House Manager: [facility] Transcribe Date/Time: Jan 27 2023 8:08A Dictated by : ESTUARDO WHALEY MD This examination was interpreted and the report reviewed and electronically signed by: ESTUARDO WHALEY MD on Jan 27 2023 8:20AM EST [id number] Normal [facility] MRI BRAIN LOCALIZATION W IVC ONon 01-27-2023 [facility] Physician Referralon 023 Physician Referral [id number] Normal [facility] Physician Referralon 023 Physician Referral [id number]#1.00TIFF Normal [facility] CNOVSPon 12-22-2022 CNOVS Visit (SP) Office ([facility]3) ----- BEN CRUZ ([id number]) 1975 F Date Time Provider Department 12/22/22 [...] were negative. Declined an adjuvant trial in [place]. Baseline imaging today is negative CC: Melanoma [...] No Does patient want to see a Supervisor Epoxy Fabrication? No (yes to any of above refer [...] for Encounter Date Provider Department Center 12/22/2022 [id number] ECHEVERRIA [facility] [place] [facility] Prescriptions as of 12/23/2022 - meloxicam (MOBIC) 15 mg tablet - inclisiran (LEQVIO) 284 mg/1.5 mL injection - omeprazole (PRILOSEC) 20 mg capsule Take 20 mg by mouth once daily. Problem List As Of Date: 12/22/2022 (None) Visit Notes: >> Ava Urbina LPN [facility] Dec 22, 2022 10:14 AM Status: Signed Additional intake questions: Has the patient had fever, nausea, vomiting, diarrhea, constipation, fatigue for > 1 week? No Does the patient have a decreased appetite? No Does patient want to see a Supervisor Epoxy Fabrication? No (yes to any of above refer patient to schedulers for dietitian appointment) ) Does patient have any new or increased numbness or tingling of extremities? No Is patient interested in fertility information? No Does patient need any prescription refills? No Does patient have an advanced directive in place? No, Patient refused referral to Social Work or Resource Center [facility] Louise 11-15-2022 [facility] Telephone ([facility]) ----- BEN CRUZ ([id number]) 1975 F Date Time Provider Department 11/15/22 BETZY HEARD [facility] During your visit today, we recorded the following information about you: Betzy Heard, BIGG 11/15/2022 2:04 PM Signed Calling Ben to follow up on Maven7 message about scheduling gamma knife for 01/27/2023 No answer, left message stating that I'll go ahead and place the GK orders. Reminded to disregard ANY appointment times she sees in Maven7, any automated text reminders or automated phone calls for 01/27/23 She will receive a call from the GK nurse or radiation therapist the day before with her arrival time. If she has any questions, I left office phone # for call back or she can send a Maven7 message. I will send out a GK folder with additional information related to Mask Based Gamma Knife Radiosurgery Betzy Heard RN, BSN Dish Maker [facility] Allergies As of Date: 11/15/2022 (No Known Allergies) Date Reviewed: 10/19/2022 Reviewed by: Trista Bonilla APRN.SALES SUPPORT SPECIALIST - Fully Assessed Reason for Visit: Dish Maker - Other [3601] Cmt: Schedule gamma knife 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 Prescriptions as of 11/15/2022 - meloxicam (MOBIC) 15 mg tablet - inclisiran (LEQVIO) 284 mg/1.5 mL injection - omeprazole (PRILOSEC) 20 mg capsule Take 20 mg by mouth once daily. Problem List As Of Date: 11/15/2022 (None) Encounter Status:Closed by BETZY HEARD on 11/15/22 [facility] 10-20-2022 [facility] Telephone ([facility]) ----- BEN CRUZ ([id number]) 1975 F Date Time Provider Department 10/20/22 BETZY HEARD [facility] During your visit today, we recorded the following information about you: Betzy Heard RN 10/20/2022 11:56 AM Signed Time Frame: As soon as can be scheduled - can be virtual or in clinic Orders: n/a Provider: Tang Referring: Pelon Diagnosis: meningioma Allergies As of Date: 10/20/2022 (No Known Allergies) Date Reviewed: 10/19/2022 Reviewed by: Trista Bonilla APRN.SALES SUPPORT SPECIALIST - Fully Assessed Reason for Visit: GIN - new pt consult with Dr. Beckwith [Other] Prescriptions as of 11/10/2022 - meloxicam (MOBIC) 15 mg tablet - inclisiran (LEQVIO) 284 mg/1.5 mL injection - omeprazole (PRILOSEC) 20 mg capsule Take 20 mg by mouth once daily. Problem List As Of Date: 10/20/2022 (None) Encounter Status:Closed by BETZY HEARD on 11/10/22 Normal [facility] MRI BRAIN WO/W IVCONon 10-17 MRI BRAIN WO/W IVCON * * *Final Report* * * DATE OF EXAM: Oct 17 2022 11:20AM [facility] - MRI BRAIN WO/W IVCON / [...] with air-fluid level suggestive of acute/active sinusitis. Apartment House Manager: TORI Transcribe Date/Time: Oct 17 2022 11:35A Dictated by : CHUCKY BRAY MD This examination was interpreted and the report reviewed and electronically signed by: CHUCKY BRAY MD on Oct 17 2022 11:45AM EST [id number] Normal [facility] Complete Blood Count Auto Di ffon 09-12-2022 Basophils (Bld) [#/Vol] 0.1 10*3/uL Normal 0.0-0.2 [facility] Comment on above: Result Comment: PERF ORMED BY: [place] [address] PATHOLOGIST BRANCH MAKER ARNULFO STYLES M.D. Performed By: #### C BC #### [address] Basophils/100 WBC (Bld) 0.7 % Normal . [facility] Comment on above: Performed By: #### C BC #### [address] Eosinophils (Bld) [#/Vol] 0.2 10*3/uL Normal 0.0-0.45 [facility] Comment on above: Performed By: #### C BC #### [address] Eosinophils/100 WBC (Bld) 2.7 % Normal . [facility] Comment on above: Performed By: #### C BC #### [address] Erythrocyte distribution width (RBC) [Ratio] 12.9 % Normal 11.9-15.3 [facility] Comment on above: Performed By: #### C BC #### [place] [id number] [place] Hematocrit (Bld) [Volume fraction] 41.8 % Normal 34.0-46.4 [facility] Comment on above: Performed By: #### C BC #### [address] Hemoglobin (Bld) [Mass/Vol] 14.3 g/dL Normal 11.8-15.4 [facility] Comment on above: Performed By: #### C BC #### [address] Lymphocytes (Bld) [#/Vol] 2.0 10*3/uL Normal 1.00-4.8 [facility] Comment on above: Performed By: #### C BC #### [address] Lymphocytes/100 WBC (Bld) 25.3 % Normal . [facility] Comment on above: Performed By: #### C BC #### [address] MCH (RBC) [Entitic mass] 29.8 pg Normal 24.7-34.3 [facility] Comment on above: Performed By: #### C BC #### [address] MCV (RBC) [Entitic vol] 87.2 fL Normal 80-100 [facility] Comment on above: Performed By: #### C BC #### [address] Mean Corpuscular HGB Conc 34.2 g/dL Normal 32.0-35.0 [facility] Comment on above: Performed By: #### C BC #### [address] Monocytes (Bld) [#/Vol] 0.7 10*3/uL Normal 0.0-0.8 [facility] Comment on above: Performed By: #### C BC #### [address] Monocytes/100 WBC (Bld) 9.1 % Normal . [facility] Comment on above: Performed By: #### C BC #### [facility] [address] [place] [address] [place] Neutrophils (Bld) [#/Vol] 4.8 10*3/uL Normal 1.8-7.7 [facility] Comment on above: Performed By: #### C BC #### [facility] [address] [place] [address] [place] Neutrophils/100 WBC (Bld) 62.2 % Normal . [facility] Comment on above: Performed By: #### C BC #### [facility] [address] NRBC% 0.4 /100{WBC} Normal 0-0.5 [facility] Comment on above: Performed By: #### C BC #### [address] Platelet mean volume (Bld) [Entitic vol] 7.5 fL Normal 6.3-10.7 [facility] Comment on above: Performed By: #### C BC #### [place] [id number] [place] Platelets (Bld) [#/Vol] 225 10*3/uL Normal 150-450 [facility] Comment on above: Performed By: #### C BC #### [place] [id number] [place] RBC (Bld) [#/Vol] 4.80 10*6/uL Normal 3.60-5.00 [facility] Comment on above: Performed By: #### C BC #### [place] [id number] [place] WBC (Bld) [#/Vol] 7.7 10*3/uL Normal 3.8-11.[address] [facility] Comment on above: Performed By: #### C BC #### [place] [id number] [place] XR chest 2V*on 09-12-2022 XR chest 2V* [facility] [address] [place] [address] XRay Report Signed Patient: Ben Cruz MR#: [id number] 3 : 1975 Acct:[id number] Age/Sex: 47 / F ADM Date: 09/12/22 Loc: [place] Room: Type: [facility] Attending Dr: Taz Rossi DPM Copies [...] Florentino Woods M.D.09/12/2022 4:53 PM Dictation Location: [place] [address] Transcribed By: [facility] 09/12/221652 Dictated By: Florentino Woods II, MD 09/12/221651 Signed By: 09/12/221652 [facility] Louise 08-31-2022 NICOLAS Telephone (ANDREI) ----- BEN CRUZ ([id number]) 1975 F Date Time Provider Department 08/31/22 LUIS LICONA During your visit today, we recorded the following information about you: Adriana Brown 08/31/2022 4:12 PM Signed Patient called in to ask for a prescription of Atavan sent to her local [facility] prior to her scheduled MRI on 09/05. Prescription should be sent to the [facility] in [facility]. [place] [id number] [facility] [id number] Trista Bonilla APRN.CNP 08/31/2022 4:35 PM Signed Ativan sent to preferred pharmacy per patient request prior to MRI. [facility] checked and [facility]. All prescriptions have been APPROPRIATELY filled. No suspicious activity was identified. 08/31/2022 by Trista Bonilla APRN.SHERITA Allergies As of Date: 08/31/2022 (No Known Allergies) Date Reviewed: 08/31/2022 Reviewed by: Trista Bonilla APRN.SALES SUPPORT SPECIALIST - Fully Assessed Reason for Visit: Dish Maker - Other [[id number]] Visit Diagnosis:Malignant melanoma of torso excluding breast [...] Encounter Status:Closed by TRISTA BONILLA on 08/31/22 [facility] CNOVSPon 06-21-2022 CNOVSP [facility] ----- BEN CRUZ ([id number]) 1975 F Date Time Provider Department 06/21/22 [...] No Does patient want to see a Supervisor [employer]? No (yes to any of above refer [...] were negative. Declined an adjuvant trial in [place]. Baseline imaging today is negative CC: Melanoma [...] with more than 50% of the total kjws-fb-rhgs time of the visit in counseling / coordination of care. Debbie Echeverria MD Referring Provider: DEBBIE ECHEVERRIA [[id number]] Allergies As of Date: 06/21/2022 (No Known [...] for Encounter Date Provider Department Center 06/21/2022 [id number] ECHEVERRIA [facility] [place] [facility] Prescriptions as of 06/21/2022 - meloxicam (MOBIC) 15 mg tablet - inclisiran (LEQVIO) 284 mg/1.5 mL injection - omeprazole (PRILOSEC) 20 mg capsule Take 20 mg by mouth once daily. Problem List As Of Date: 06/21/2022 (None) Visit Notes: >> CHANCE Batista Jun 21, 2022 10:29 AM Status: Signed Additional intake questions: Has the patient had fever, nausea, vomiting, diarrhea, constipation, fatigue for > 1 week? Yes, fatigue and Provider Notified Does the patient have a decreased appetite? No Does patient want to see a Supervisor [employer]? No (yes to any of above refer [...] Normal [facility] MRI BRAIN WO/W IVCONon 02-23 [facility] CBC AUTO DIFFon 11-18-2021 BASO # 0.0 103/ul Normal 0.0-0.1 [facility] Comment on above: Performed By: #### H FPFCBC #### [facility] [address] [place] [address] Dr. Arcenio Billy Basophils/100 WBC (Bld) 0.4 % Normal 0.2-2.0 [facility] Comment on above: Performed By: #### H FPFCBC #### [facility] [address] [place] [address] Dr. Arcenio Billy EO # 0.2 103/ul Normal 0.0-0.7 [facility] Comment on above: Performed By: #### H FPFCBC #### [facility] [address] [place] [address] Dr. Arcenio Billy Eosinophils/100 WBC (Bld) 3.0 % Normal 0.9-7.0 [facility] Comment on above: Performed By: #### H FPFCBC #### [facility] [address] [place] [address] Dr. Arcenio Billy Erythrocyte distribution width (RBC) [Ratio] 12.1 % Normal 11.0-15.0 [facility] Comment on above: Performed By: #### H FPFCBC #### [facility] [address] [place] [address] Dr. Arcenio Billy Hematocrit (Bld) [Volume fraction] 43.1 % Normal 36.0-48.0 [facility] Comment on above: Performed By: #### H FPFCBC #### [facility] [address] [place] [address] Dr. Arcenio Billy Hemoglobin (Bld) [Mass/Vol] 14.1 g/dL Normal 12.0-16.0 [facility] Comment on above: Performed By: #### H FPFCBC #### [facility] [address] [place] [address] Dr. Arcenio Billy IG # 0.01 10e3/ul Normal 0.00-0.03 [facility] Comment on above: Performed By: #### H FPFCBC #### [facility] [address] [place] [address] Dr. Arcenio Billy IG % 0.2 % Normal 0.0-0.5 [facility] Comment on above: Performed By: #### H FPFCBC #### [facility] [address] [place] [address] Dr. Arcenio Billy LYMPH # 1.9 103/ul Normal 1.2-3.8 [facility] Comment on above: Performed By: #### H FPFCBC #### [facility] [address] [place] [address] Dr. Arcenio Billy Lymphocytes/100 WBC (Bld) 35.7 % Normal 20.5-60.0 [facility] Comment on above: Performed By: #### H FPFCBC #### [facility] [address] [place] [address] Dr. Arcenio Billy MCH (RBC) [Entitic mass] 28.8 pg Normal 26.7-34.0 [facility] Comment on above: Performed By: #### H FPFCBC #### [facility] [address] [place] [address] Dr. Arcenio Billy MCHC (RBC) [Mass/Vol] 32.7 g/dL Normal 29.9-35.2 [facility] Comment on above: Performed By: #### H FPFCBC #### [facility] [address] [place] [address] Dr. Arcenio Billy MCV (RBC) [Entitic vol] 88.1 fL Normal 81.0-99.0 [facility] Comment on above: Performed By: #### H FPFCBC #### [facility] [address] [place] [address] Dr. Arcenio Billy MONO # 0.5 103/ul Normal 0.3-0.8 [facility] Comment on above: Performed By: #### H FPFCBC #### [facility] [address] [place] [address] Dr. Arcenio Billy Monocytes/100 WBC (Bld) 9.9 % Normal 1.7-12.0 [facility] Comment on above: Performed By: #### H FPFCBC #### [facility] [address] [place] [address] Dr. Arcenio Billy NEUT # 2.7 103/ul Normal 1.4-6.5 [facility] Comment on above: Performed By: #### H FPFCBC #### [facility] [address] [place] [address] [address] Arcenio Billy Neutrophils/100 WBC (Bld) 50.8 % Normal 43.0-75.0 [facility] Comment on above: Performed By: #### H FPFCBC #### [facility] [address] [place] [address] [address] Arcenio Billy Platelet mean volume (Bld) [Entitic vol] 8.9 fL Critically low 9.5-13.5 [facility] Comment on above: Performed By: #### H FPFCBC #### [facility] [address] [place] [address] Dr. Arcenio Billy PLT 271 103/ul Normal 150-450 [facility] Comment on above: Performed By: #### H FPFCBC #### [facility] [address] [place] [address] Dr. Arcenio Billy RBC 4.89 106/ul Normal 4.20-5.40 [facility] Comment on above: Performed By: #### H FPFCBC #### [facility] [address] [place] [address] Dr. Arcenio Billy WBC 5.3 103/ul Normal 4.0-11.0 [facility] Comment on above: Performed By: #### H FPFCBC #### [facility] [address] [place] [address] Dr. Arcenio Billy [employer] PROFILEon 022 Albumin [Mass/Vol] 3.7 g/dL Normal 3.4-5.[address] [facility] Comment on above: Performed By: #### H FPF #### [facility] [address] [place] [address] Dr. Arcenio Billy Albumin/Globulin [Mass ratio] 1.1 {ratio} Normal [facility] Comment on above: Performed By: #### H FPF #### [facility] [address] [place] [address] Dr. Arcenio Billy ALP [Catalytic activity/Vol] 60 U/L Normal 46-116 [facility] Comment on above: Performed By: #### H FPF #### [facility] [address] [place] [address] [address] Arcenio Billy ALT [Catalytic activity/Vol] 47 U/L Normal 14-59 [facility] Comment on above: Performed By: #### H FPF #### [facility] [address] [place] [address] [address] Arcenio Billy AST [Catalytic activity/Vol] 25 U/L Normal 15-37 [facility] Comment on above: Performed By: #### H FPF #### [facility] [address] [place] [address] [address] Arcenio Billy Bilirubin [Mass/Vol] 0.5 mg/dL Normal 0.2-1.0 [facility] Comment on above: Performed By: #### H FPF #### [facility] [address] [place] [address] Dr. Arcenio Billy Calcium [Mass/Vol] 8.8 mg/dL Normal 8.5-10.[address] [facility] Comment on above: Performed By: #### H FPF #### [facility] [address] [place] [address] [address] Arcenio Billy Chloride [Moles/Vol] 103 mmol/L Normal 98-107 [facility] Comment on above: Performed By: #### H FPF #### [facility] [address] [place] [address] Dr. Arcenio Billy CHOL-HDL RATIO NORM SEE BELOW Normal [facility] Comment on above: Result Comment: 3.3 - 4.4 LOW RISK 4.4 - 7.1 AVERAGE RISK 7.1 - 11.0 MODERATE RISK >11.0 HIGH RISK Performed By: #### H FPF #### [facility] [address] [place] [address] [address] Arcenio Billy Cholesterol [Mass/Vol] 352 mg/dL Critically high <=200 [facility] Comment on above: Performed By: #### H FPF #### [facility] [address] [place] [address] [address] Arcenio Billy Cholesterol in HDL [Mass/Vol] 34 mg/dL Critically low 40-60 [facility] Comment on above: Performed By: #### H FPF #### [facility] [address] [place] [address] [address] Arcenio Billy Cholesterol in LDL [Mass/Vol] 274.2 mg/dL Normal [facility] Comment on above: Performed By: #### H FPF #### [facility] [address] [place] [address] [address] Arcenio Billy Cholesterol.total/ Cholesterol in HDL [Mass ratio] 10.4 {ratio} Normal [facility] Comment on above: Performed By: #### H FPF #### [facility] [address] [place] [address] [address] Arcenio Billy CO2 [Moles/Vol] 25.7 mmol/L Normal 21.0-32.0 [facility] Comment on above: Performed By: #### H FPF #### [facility] [address] [place] [address] [address] Arcenio Billy Creatinine [Mass/Vol] 0.91 mg/dL Normal 0.55-1.02 [facility] Comment on above: Performed By: #### H FPF #### [facility] [address] [place] [address] [address] Arcenio Billy Globulin (S) [Mass/Vol] 3.4 g/dL Normal [facility] Comment on above: Performed By: #### H FPF #### [facility] [address] [place] [address] [address] Arcenio Billy Glucose [Mass/Vol] 91 mg/dL Normal 74-[address] [facility] Comment on above: Performed By: #### H FPF #### [facility] [address] [place] [address] [address] Arcenio Billy HDL NORMAL > or = 60 mg/dl - LO W CARDIOVASCULAR RISK <40 mg/dl - HIGH CARDIOVASCULAR RISK Normal [facility] Comment on above: Performed By: #### H FPF #### [facility] [address] [place] [address] [address] Arcenio Billy LDL CALC NORMAL SEE BELOW Normal [facility] Comment on above: Result Comment: <100 mg/dl OPTIMAL 100 - 129 mg/dl NEAR OR ABOVE OPTIMAL 130 - 159 mg/dl BORDERLINE HIGH 160 - 189 mg/dl HIGH >190 mg/dl VERY HIGH Performed By: #### H FPF #### [facility] [address] [place] [address] [address] Arcenio Billy Potassium [Moles/Vol] 4.1 mmol/L Normal 3.5-5.1 [facility] Comment on above: Performed By: #### H FPF #### [facility] [address] [place] [address] [address] Arcenio Billy Protein [Mass/Vol] 7.1 g/dL Normal 6.4-8.2 [facility] Comment on above: Performed By: #### H FPF #### [facility] [address] [place] [address] Dr. Arcenio Billy Sodium [Moles/Vol] 139 mmol/L Normal 136-[address] [facility] Comment on above: Performed By: #### H FPF #### [facility] [address] [place] [address] Dr. Arcenio Billy Triglyceride [Mass/Vol] 219 mg/dL Critically high <=150 [facility] Comment on above: Performed By: #### H FPF #### [facility] [address] [place] [address] Dr. Arcenio Billy TSH 1.717 uIU/mL Normal 0.358-3.740 [facility] Comment on above: Performed By: #### H FPF #### [facility] [address] [place] [address] Dr. Arcenio Billy Urea nitrogen [Mass/Vol] 11.0 mg/dL Normal 7.0-18.0 [facility] Comment on above: Performed By: #### H FPF #### [facility] [address] [place] [address] Dr. Arcenio Billy Urea nitrogen/Creatinin e [Mass ratio] 12.1 mg/mg Normal [facility] Comment on above: Performed By: #### H FPF #### [facility] [address] [place] [address] Dr. Arcenio Billy VLDL CALC 43.8 mg/dL Normal [facility] Comment on above: Performed By: #### H FPF #### [facility] [address] [place] [address] Dr. Arcenio Billy PAP ACOG PANEL 2: 30 to 65on 09-19-2021 . . Normal [facility] Comment on above: Result Comment: Perf ormed at: WB Performed By: #### [id number] #### [facility] [address] [place] [address] Dr. Arcenio Billy Age Gdln ACOG Testing 30-65 Normal [facility] Comment on above: Performed By: #### [id number] #### [facility] [address] [place] [address] Dr. Arcenoi Billy DIAGNOSIS: Comment Normal [facility] Comment on above: Result Comment: NEGA TIVE FOR INTRAEPITHELIAL LESION OR MALIGNANCY. FUNGAL ORGANISMS MORPHOLOGICALLY CONSISTENT WITH MOSES SPECIES ARE PRESENT. Performed at: WB Performed By: #### [id number] #### [facility] [address] [place] [address] Dr. Arcenio Billy HPV Aptima Negative Normal Negative [facility] Comment on above: Result Comment: This nucleic acid amplification test detects fourteen high-risk HPV types (16,18,31,33,35,39,45,51,52,56,58,59,66,68) without differentiation. Performed at: =G Performed By: #### [id number] #### [facility] [address] [place] [address] Dr. Arcenio Bilyl Methodology: Comment Normal [facility] Comment on above: Result Comment: This liquid based ThinPrep(R) pap test was screened with the use of an image guided system. Performed at: WB Performed By: #### [id number] #### [facility] [address] [place] [address] Dr. Arcenio Billy Note: Comment Normal [facility] Comment on above: Result Comment: The Pap smear is a screening test designed to aid in the detection of premalignant and malignant conditions of the uterine cervix. It is not a diagnostic procedure and should not be used as the sole means of detecting cervical cancer. Both false-positive and false-negative reports do occur. . Performed at: WB Performed By: #### [id number] #### [facility] [address] [place] [address] [address] Arcenio Billy Performed by: Comment Normal [facility] Comment on above: Result Comment: Bronson Cordero, [employer] Pipe (ASCP) Performed at: WB Performed By: #### [id number] #### [facility] [address] [place] [address] [address] Arcenio Billy Specimen adequacy: Comment Normal [facility] Comment on above: Result Comment: Sati sfactory for evaluation. No endocervical component is identified. Performed at: WB Performed By: #### [id number] #### [facility] [address] [place] [address] [address] Arcenio Billy MG MAMM SCREEN 3D JULIO CÉSAR CADon 09-08-2021 MG MAMM SCREEN 3D JULIO CÉSAR CAD Patient: BEN CRUZ Exam Date: 09/08/2021 : 1975 Gender:F Ordering : DR CHELITA VILLANUEVA . Admission #: [id number] Family : Order #: [id number] CLICK HERE TO VIEW EXAM RADIOLOGY REPORT [...] pancreatic cancer at age 71. LOCATION: [facility] BREAST COMPOSITION: Scattered areas fibroglandular density. [...] Mc MD on 09/08/2021 at 11:41 Normal [facility] MRI BRAIN WO/W IVCONon 08-23 [facility] MRI LIVER WO/W IVCONon 06-16 [facility] MRI BRAIN WO/W IVCONon 06-01 [facility] Vital Signs Date Time Vital Sign Value Performing Clinician Facility 06-13-2023 09:34-0400 Body temperature 97.59 [degF] Debbie Echeverria MD Work Phone: [facility] 06-13-2023 09:34-0400 Body weight 95.8 kg Debbie Echeverria MD Work Phone: [facility] 06-13-2023 09:34-0400 Diastolic blood pressure 92 mm[Hg] Debbie Echeverria MD Work Phone: [facility] 06-13-2023 09:34-0400 Heart rate 79 /min Debbie Echeverria MD Work Phone: [facility] 06-13-2023 09:34-0400 Respiratory rate 20 /min Debbie Echeverria MD Work Phone: [facility] 06-13-2023 09:34-0400 SaO2% (BldA) [Mass fraction] 96 % Debbie Echeverria MD Work Phone: [facility] 06-13-2023 09:34-0400 Systolic blood pressure 142 mm[Hg] Debbie Echeverria MD Work Phone: [facility] 03-16-2023 13:45-0500 Body height 162.56 cm Lissett Vega Other [employer] Other 03-16-2023 13:45-0500 Body mass index (BMI) [Ratio] 34.5 kg/m2 Lissett Vega Other [employer] Other 03-16-2023 13:45-0500 Body temperature 99.1 [degF] Lissett Vega Other [employer] Other 03-16-2023 13:45-0500 Body weight 91.17 kg Lissett Vega Other [employer] Other 03-16-2023 13:45-0500 Diastolic blood pressure 88 mm[Hg] Lissett Vega Other [employer] Other 03-16-2023 13:45-0500 SaO2% (BldA) [Mass fraction] 98 % Lissett Vega Other [employer] Other 03-16-2023 13:45-0500 Systolic blood pressure 128 mm[Hg] Lissett Vega Other [employer] Other 02-17-2023 14:47-0500 Blood Pressure Location [facility]TW[facility] [place] 02-17-2023 14:47-0500 Diastolic blood pressure 84 mm[Hg] Debbie NILL [facility] 02-17-2023 14:47-0500 Heart rate 76 /min Debbie XumiiL [facility] [place] 02-17-2023 14:47-0500 Respiratory rate 16 /min Debbie XumiiL [facility] 02-17-2023 14:47-0500 Systolic blood pressure 128 mm[Hg] Debbie NILL [facility] 09-21-2022 11:30-0400 Body height 162.56 cm Lissett Vega Other [employer] Other 09-21-2022 11:30-0400 Body mass index (BMI) [Ratio] 36.56 kg/m2 Lissett Gary Other [employer] Other 09-21-2022 11:30-0400 Body weight 96.62 kg Lissett Gary Other [employer] Other 09-21-2022 11:30-0400 Diastolic blood pressure 84 mm[Hg] Lissett Gary Other [employer] Other 09-21-2022 11:30-0400 Systolic blood pressure 137 mm[Hg] Lissett Gary Other [employer] Other 06-21-2022 10:32-0400 Body height 165 cm Debbie Echeverria MD Work Phone: [facility] 06-21-2022 10:32-0400 Body temperature 96.8 [degF] Debbie Echeverria MD Work Phone: [facility] 06-21-2022 10:32-0400 Body weight 98.79 kg Debbie Echeverria MD Work Phone: [facility] 06-21-2022 10:32-0400 Diastolic blood pressure 82 mm[Hg] Debbie Echeverria MD Work Phone: [facility] 06-21-2022 10:32-0400 Heart rate 74 /min Debbie Echeverria MD Work Phone: [facility] 06-21-2022 10:32-0400 Respiratory rate 18 /min Debbie Echeverria MD Work Phone: [facility] 06-21-2022 10:32-0400 SaO2% (BldA) [Mass fraction] 96 % Debbie Echeverria MD Work Phone: [facility] 06-21-2022 10:32-0400 Systolic blood pressure 139 mm[Hg] Debbie Echeverria MD Work Phone: [facility] 12-21-2021 13:24-0400 Body temperature 98.6 [degF] Debbie Echeverria MD Work Phone: [facility] 12-21-2021 13:24-0400 Body weight 102.15 kg Debbie Echeverria MD Work Phone: [facility] 12-21-2021 13:24-0400 Diastolic blood pressure 82 mm[Hg] Debbie Echeverria MD Work Phone: [facility] 12-21-2021 13:24-0400 Heart rate 79 /min Debbie Echeverria MD Work Phone: [facility] 12-21-2021 13:24-0400 Respiratory rate 20 /min Debbie Echeverria MD Work Phone: [facility] 12-21-2021 13:24-0400 SaO2% (BldA) [Mass fraction] 100 % Debbie Echeverria MD Work Phone: [facility] 12-21-2021 13:24-0400 Systolic blood pressure 145 mm[Hg] Debbie Echeverria MD Work Phone: [facility] Encounters Encounter Date Encounter Type Care Provider Facility Start: 06-13-2023 End: 06-13-2023 ambulatory DEBBIE ECHEVERRIA Facility:[facility] Start: 06-13-2023 End: 06-13-2023 ambulatory Debbie Echeverria MD Work Phone: Hematology/Oncology Comment on above: Malignant melanoma o f torso excluding breast (HCC) (Primary Dx) Start: 06-13-2023 End: 06-13-2023 Patient encounter procedure Debbie Echeverria MD Work Phone: [facility] Start: 06-05-2023 End: 06-05-2023 ambulatory Jes Vieira Facility:[facility] Start: 06-05-2023 End: 06-05-2023 ambulatory VETO KIP Not Available Start: 05-12-2023 Telephone encounter Gurpreet malin DO, PhD Work Phone: [facility] Comment on above: Appointment (Ce [place]) Start: 03-23-2023 End: 03-23-2023 ambulatory Lissett Vega Other [employer] Other Start: 03-23-2023 Telephone encounter Lissett Vega [facility] Start: 03-16-2023 End: 03-16-2023 ambulatory Lissett Vega Other [employer] Other Start: 03-16-2023 Office outpatient vi sit 15 minutes Lissett Vega [facility] Start: 03-08-2023 End: 03-09-2023 ambulatory Debbie R NILL Facility:[id number] Start: 02-17-2023 End: 02-18-2023 ambulatory Debbie R NILL Facility:[facility] Start: 02-17-2023 End: 02-17-2023 Patient encounter procedure Debbie R NILL General Surgery Nill/Said [facility] Start: 02-07-2023 Telephone encounter Johann Henriquez RN [facility] [place] Start: 02-06-2023 Telephone encounter Johann Henriquez RN [facility] Tumor [place] Comment on above: Gamma Knife Follow-u p Start: 01-27-2023 End: 01-28-2023 Orders Only Gurpreet Beckwith DO, PhD Work Phone: Neurosurgery Comment on above: Benign neoplasm of m eninges (HCC) (Primary Dx) Benign neoplasm of m eninges (HCC) [D32.9] Start: 01-27-2023 Patient encounter procedure Burak Prakash MD Work Phone: [facility] Start: 01-27-2023 Radiation Oncology Note Susi Prakash MD Work Phone: [place] [facility] Comment on above: Procedure Treatment Planning Start: 01-24-2023 ambulatory Debbie NILL Facility:[facility] Start: 01-23-2023 End: 01-23-2023 ambulatory Lissett Vega Other [employer] Other Start: 01-23-2023 Telephone encounter Lissett Vega [facility] Start: 12-22-2022 End: 12-22-2022 ambulatory DEBBIE ECHEVERRIA Facility:[facility] Start: 11-15-2022 Telephone encounter Betzy liao RN Work Phone: [facility] Comment on above: Dish Maker - O ther (Schedule gamma knife 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/) Start: 11-04-2022 End: 11-04-2022 ambulatory Gurpreet Beckwith DO, PhD Work Phone: [facility] Comment on above: Benign neoplasm of m eninges (HCC) (Primary Dx) Start: 11-04-2022 End: 11-04-2022 Telemedicine consultation with patient Gurpreet Beckwith DO, PhD Work Phone: [facility] Start: 10-31-2022 End: 10-31-2022 ambulatory Lissetttayla Vgea Other [employer] Other Start: 10-31-2022 Telephone encounter Lissett Vega [facility] Start: 10-19-2022 End: 10-19-2022 ambulatory DEBBIE ECHEVERRIA Facility:[facility] Start: 10-19-2022 End: 10-19-2022 ambulatory Luis Licona MD Work Phone: Radiation Oncology Comment on above: Meningioma (HCC) (Pr imary Dx) Start: 10-19-2022 End: 10-19-2022 Telemedicine consultation with patient Luis Licona MD Work Phone: [facility] Start: 10-18-2022 End: 10-18-2022 ambulatory DEBBIE ECHEVERRIA Facility:[facility] Start: 10-18-2022 End: 10-18-2022 ambulatory Trista Bonilla APRN.CNP Work Phone: Radiation Oncology Comment on above: Meningioma (HCC) (Pr imary Dx) Start: 10-18-2022 End: 10-18-2022 Telemedicine consultation with patient Trista Bonilla APRN.CNP Work Phone: [facility] Start: 10-17-2022 End: 10-17-2022 ambulatory TRISTA BONILLA Facility:[facility] Start: 10-17-2022 End: 10-17-2022 Subsequent hospital visit by physician Mri [facility] (Lg Bore/1.5t) Radiology MRI Comment on above: Benign neoplasm of m eninges (HCC) [D32.9] Start: 09-23-2022 End: 09-23-2022 ambulatory Lissett Vega Other [employer] Other Start: 09-23-2022 Telephone encounter Lissett Vega [facility] Start: 09-21-2022 End: 09-21-2022 ambulatory Lissett Vega Other [employer] Other Start: 09-21-2022 Encounter for other preprocedural examination Lissett Vega [facility] Start: 09-21-2022 Office outpatient vi sit 25 minutes Lissett Vega [facility] Start: 09-12-2022 End: 09-12-2022 ambulatory Lissett Vega Facility:[facility] Start: 08-31-2022 Telephone encounter Luis osborn MD Work Phone: Radiation Oncology Comment on above: Dish Maker - O ther Start: 06-21-2022 End: 06-21-2022 ambulatory DEBBIE ECHEVERRIA Facility:[facility] Start: 06-21-2022 End: 06-21-2022 ambulatory Debbie Echeverria MD Work Phone: Hematology/Oncology Comment on above: Malignant melanoma o f torso excluding breast (HCC) (Primary Dx) Start: 06-21-2022 End: 06-21-2022 Patient encounter procedure Debbie Echeverria MD Work Phone: [facility] Start: 03-16-2022 End: 03-16-[address] LISSETT VEGA Facility: Start: 02-28-2022 End: 02-28-2022 ambulatory Trista Bonilla APRN.[employer]AL[employer] SU[employer] SPECIALIST Work Phone: Radiation Oncology Comment on above: Benign neoplasm of m eninges (HCC) (Primary Dx) Start: 02-28-2022 End: 02-28-2022 Telemedicine consultation with patient Trista Bonilla APRN.SALES SUPPORT SPECIALIST Work Phone: [facility] Start: 02-23-2022 End: 02-23-2022 Subsequent hospital visit by physician Mri [facility] (Lg Bore/1.5t) Radiology MRI Comment on above: Benign neoplasm of m eninges (HCC) [D32.9] Start: 12-21-2021 End: 12-21-2021 ambulatory Debbie Echeverria MD Work Phone: Hematology/Oncology Comment on above: Malignant melanoma o f torso excluding breast (HCC) (Primary Dx) Start: 12-21-2021 End: 12-21-2021 Patient encounter procedure Debbie Echeverria MD Work Phone: [facility] Start: 12-15-2021 End: 12-15-[address] LISSETT VEGA Facility:[facility] Start: 12-11-2021 Gynecological examin ation normal Lissett Vega Other [employer] Other Start: 12-01-2021 Telephone encounter Debbie Echeverria MD Work Phone: Hematology/Oncology Comment on above: Dish Maker - O ther Start: 11-18-2021 End: 11-19-2021 [...] with patient Luis Licona MD Work Phone: [facility] Start: 08-23-2021 End: 08-23-2021 Subsequent hospital visit by physician Mri [facility] (Lg Bore/1.5t) Radiology MRI Comment on above: Benign neoplasm of m eninges (HCC) [D32.9] Start: 06-16-2021 End: 06-16-2021 Subsequent hospital visit by physician Mri [facility] (Lg Bore/1.5t) Radiology MRI Comment on above: Malignant 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] Start: 06-01-2021 End: 06-01-2021 Subsequent hospital visit by physician Mri [facility] (Lg Bore/1.5t) Radiology MRI Comment on above: [...] [place] Excision of ganglion of wrist Debbie NILL Excision of melanoma Debbie NILL Comment on above: left shoulder Fasciotomy of foot Debbie PARK Hysterectomy Lissett Vega Other Laminectomy Debbie DE LOS SANTOS Screening for malign ant neoplasm of breast Lissett Vega Other Stereotactic destruc tion of lesion using gamma radiation Debbie HERNANDEZL Vaginal hysterectomy Debbie HERNANDEZL Plan of Treatment Date Care Activity Detail Author Start: 04-03-2023 Depression Assessment Depression Ass [facility] Start: 12-21-2022 Adult depression screening assessment DEPRESSION SCREENING [facility] Start: 12-02-2022 Covid-19 Vaccine () Covid-19 Vaccine () [facility] Start: 12-02-2022 Influenza vaccination [facility] Start: 08-29-2022 End: 03-31-2023 Mri brain brain stem w/o w/contrast material MRI BRAIN WO/W IVCON Radiology Routine Benign neoplasm of meninges (HCC) Expected: 08/29/2022, Expires: 03/31/2023 [facility] Work Phone: Comment on above: Expected: 08/29/2022 , Expires: 03/31/2023 Start: 08-22-2022 Adult depression screening assessment DEPRESSION SCREENING [facility] Start: 04-03-2022 [facility] Start: 01-24-2022 DIABETES SCREEN DIABETES SCREEN [facility] Start: 01-24-2022 Diabetes Screening Diabetes Screenin g [facility] Start: 12-02-2021 Influenza vaccination [facility] Start: 04-03-2021 DEPRESSION ASSESSMENT DEPRESSION ASS [facility] Start: 07-12-2020 COLOGUARD (FIT-DNA) COLOGUARD (FIT-D NA) [facility] Start: 07-12-2020 Colonoscopy COLONOSCOPY [facility] Start: 07-12-2020 COLORECTAL CANCER SCREENING COLORECTAL CANCER SCREENING [facility] Start: 07-12-[address] COLONOGRAPHY [facility] Start: 07-12-2020 FECAL OCCULT BLOOD FECAL OCCULT BLOO D [facility] Start: 07-12-2020 Lipid 1996 panel - S emeterio or Plasma Lipid Screening [facility] Start: 07-12-2020 Lipid panel Lipid Screening [facility] Start: 07-12-2020 LIPID SCREEN LIPID SCREEN [facility] Start: 07-12-2020 Screening for malign ant neoplasm of colon [facility] Start: 07-12-2020 SIGMOIDOSCOPY SIGMOIDOSCOPY [facility] Start: 2015 Mammography [facility] Start: 2015 Screening for malign ant neoplasm of breast Mammogram Screening [facility] Start: 07-12-2005 HPV TESTING HPV TESTING [facility] Start: 07-12-2005 Screening for malign ant neoplasm of cervix HPV Testing [facility] Start: 07-12-1996 PAP TESTING PAP TESTING [facility] Start: 07-12-1996 Screening for malign ant neoplasm of cervix Pap Testing [facility] Start: 07-12-1994 Hepatitis B Vaccine (1 of 3 - 19+ 3-dose series) Hepatitis B Vaccine (1 of 3 - 19+ 3-dose series) [facility] Start: 07-12-1994 Urine microalbumin profile [facility] Start: 07-12-1993 HEPATITIS C SCREENING HEPATITIS C [facility] Start: 07-12-1993 Hepatitis C screening Hepatitis C [facility] Start: 07-12-1993 HIV SCREENING HIV SCREENING [facility] Start: 07-12-1993 HIV screening HIV Screening [facility] Start: 07-12-1981 PNEUMOCOCCAL (1 - PCV) PNEUMOCOCCAL (1 - PCV) [facility] Start: 07-12-1980 COVID-19 VACCINE (#1) COVID-19 VACCI NE (#1) [facility] Start: 01-12-1976 COVID-19 VACCINE (#1) COVID-19 VACCI NE (#1) [facility] Start: 1975 HEPATITIS B (1 of 3 - 3-dose series) HEPATITIS B (1 of 3 - 3-dose series) [facility] Start: 1975 Hepatitis B Vaccine (1 of 3 - 3-dose series) Hepatitis B Vaccine (1 of 3 - 3-dose series) [facility] End: 09-22-2022 Mri brain brain stem w/o w/contrast material MRI BRAIN WO/W IVCON Radiology Routine Benign neoplasm of meninges (HCC) 1 Occurrences starting 08/23/2021 until 09/22/2022 [facility] Work Phone: Comment on above: 1 Occurrences starti ng 08/23/2021 until 09/22/2022 [facility] ANESTHESIA O NLY [facility] Immunizations Immunization Date Immunization Notes Care Provider Fa cility 06-05-2020 SARS-CoV-2 (COVID-19 ) mRNA BNT-162b2 vax Debbie DE LOS SANTOS General Surgery [facility] 05-15-2020 SARS-CoV-2 (COVID-19 ) mRNA BNT-162b2 vax Debbie HERNANDEZL [facility] [place] NEGATED: Highlighted row has not occurred!02-17-2023 influenza virus vaccine, unspecified formulation Debbie MAGALI [facility] [place] Payers Date Payer Category Payer Self-pay 2018 Unknown MMO MMO [employer] [id number] 2018-Present [phone] [address] [place] [address] PPO [id number] 2018 Unknown [id number] 1975 Unknown [id number] 1975 Unknown [id number] 1975 Unknown [id number] 1975 Unknown [id number] 1975 Unknown [id number] 1975 Unknown [id number] 1975 Unknown [id number] 1959 Self-pay [id number] 1959 Unknown [id number] Unknown [id number] Unknown [id number] Unknown [id number] Social History Date Type Detail Facility Start: 11-19-2018 End: 02-17-2023 Tobacco smoking status NHIS Ex-smoker [facility] End: 08-02-2018 History of tobacco use Current smoker [facility] End: 08-02-2018 History of tobacco use Cigarette Smoker [facility] Start: 11-19-2018 Tobacco use and exposure Smokeless t obacco non-user [facility] Start: 06-21-2021 End: 12-22-2022 Alcohol intake Current drinker of alcohol (finding) [facility] Start: 11-19-2018 History SDOH Alcohol Comment occasionally [facility] Start: 1975 Sex Assigned At Not on file [facility] Start: 12-11-2021 End: 12-21-2021 Exposure to SARS-CoV-2 (event) Not sure [facility] Start: 06-21-2022 End: 10-18-2022 Sex Assigned At [facility] Start: 06-21-2022 End: 10-18-2022 History of Social function [facility] Adult Depression Screening Assessment 0 [facility] Start: 01-20-2020 Gender identity Identifies as female gender (finding) [facility] Start: 05-02-2021 End: 06-11-2021 Exposure to SARS-CoV-2 (event) Unable to assess [facility] Functional Status Date Assessment Result Facility 02-17-2023 Functional Status N/A General Phan cece Ro Clinical Notes 06-01-2021 to 06-13-2023 Cherrie Bell RN - 06/13/2023 9:33 AM Nicole Carbajal MD - 06/13/2023 9:30 AM EDTTelephone Encounter - Marli Patino - 05/12/2023 9:27 AM EST Note Date & Type Note Facility 06-13-2023 Note HNO ID: [id number] Author: DEBBIE ECHEVERRIA MD Service: ? 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 On diagnosis, her lesion was about 4.5 mm located on her back with 2 negative sentinel lymph nodes in the left axilla. No reported neurtropism and only one mitotic figure. Margins were negative. No additional treatment was pursued given the low risk of distant melanoma and risk of recurrence for stage II at around 20%. Clinical trial was considered initially but she did not pursue it. She has been monitored via surveillance. Last seen in December 2022 INTERVAL HISTORY: Since last visit, she had a gamma knife procedure for her meningioma in January which went well. Denies any complication from the procedure and is scheduled to follow up visit with an MRI in September. Since last visit, no new issues and last visit with brush clearer surveying was about 6 months ago. She denies any nausea, vomiting, fevers, chills, night sweats, decreased appetite, headaches, dizziness, chest pain, shortness of breath, heart palpitations, abdominal pain, constipation, diarrhea, numbness, tingling, weakness, urinary and fecal issues, dark stools, bright red stools or hematuria. REVIEW OF SYSTEMS:As per HPI MEDICATIONS: REPATHA SURECLICK 140 mg/mL pen injector Inject 140 mg subcutaneously every 2 weeks. dexAMETHasone (DECADRON) 4 mg tablet Start the day after your Gamma Knife Procedure: Decadron (Dexamethasone), Take 4 mg (1 tablet) daily for 4 days, Take 2 mg (1/2 tablet) daily for 4 days, then stop Decadron famotidine (PEPCID) 20 mg tablet Take 1 tablet by mouth once daily. meloxicam (MOBIC) 15 mg tablet inclisiran (LEQVIO) 284 mg/1.5 mL injection omeprazole (PRILOSEC) 20 mg capsule Take 20 mg by mouth once daily. ALLERGIES No Known Allergies PHYSICAL EXAMINATION: BP 142/92 Pulse 79 Temp 36.4 ?C (97.6 ?F) (Temporal) Resp 20 Wt 95.8 kg (211 lb 3.2 oz) LMP 09/08/2019 SpO2 96% BMI 35.19 kg/m? Body surface area is 2.1 meters squared. General appearance: Well appearing, alert, in no acute distress, well-hydrated, well nourished. Skin: Inspected prior surgical site with well healed scar on left upper back, no melanotic lesions visualized and satellite lesions visualized Head: Normocephalic Eyes: Anicteric sclera Neck: Supple. Lungs: No respiratory distress Lower Extremities - no edema LABS: Latest Ref Rng AND Units 01/24/2019 CBC WBC 3.70 - 11.00 k/uL 8.14 RBC 3.90 - 5.20 m/uL 4.99 Hemoglobin 11.5 - 15.5 g/dL 14.1 Hematocrit 36.0 - 46.0 % 43.5 MCV 80.0 - 100.0 fL 87.2 MCH 26.0 - 34.0 pG 28.3 MCHC 30.5 - 36.0 g/dL 32.4 RDW-CV 11.5 - 15.0 % 12.1 Platelet Count 150 - 400 k/uL 285 MPV 9.0 - 12.7 fL 8.6 Baso% % 0.2 Abs Neut (ANC) 1.45 - 7.50 k/uL 5.09 Abs Lymph 1.00 - 4.00 k/uL 2.12 Abs Stanislaus <0.87 k/uL 0.72 Abs Eosin <0.46 k/uL 0.19 Abs Baso <0.11 k/uL <0.03 Diff Type Auto Diff Latest Ref Rng AND Units 01/24/2019 CMP Sodium 136 - 144 mmol/L 141 Potassium 3.7 - 5.1 mmol/L 4.4 Chloride 97 - 105 mmol/L 102 CO2 22 - 30 mmol/L 27 Glucose 74 - 99 mg/dL 94 BUN 7 - 21 mg/dL 17 Creatinine 0.58 - 0.96 mg/dL 0.92 EGFR-All Other Races . >60 EGFR- >60 Protein, Total 6.3 - 8.0 g/dL 7.1 Albumin 3.9 - 4.9 g/dL 4.6 Calcium 8.5 - 10.2 mg/dL 9.8 Bilirubin, Total 0.2 - 1.3 mg/dL 0.3 AST 13 - 35 U/L 16 ALT 7 - 38 U/L 16 Alkaline Phosphatase 34 - 123 U/L 60 . 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 Currently on surveillance. - continue to follow up every 6 months - recommend follow up with brush clearer surveying Patient seen and discussed with Gastroenterology Oncology staff, Dr Echeverria Please do not hesitate to contact with questions or concerns. This is a preliminary note which reflects the assessment of the authoring hematology-oncology fellow only. The final assessment and recommendations may be edited by attending physician. Please see attestation. Nicole Beal MD Hematology AND Oncology Fellow I have reviewed the history, physical obtained and documented by the Fellow and I personally participated in all of the beckwith components. I have discussed the case and management of the patient's care with the Fellow. The following comments revise or confirm relevant beckwith components of the Fellow. I spent 25 minutes in the visit, with more than 50% of the total [id number] time of the visit in counseling / coordination of care. (more content not included)... [facility] 06-13-2023 Nurse Note Additional intake questions: Has the patient had fever, nausea, vomiting, diarrhea, constipation, fatigue for > 1 week? No Does the patient have a decreased appetite? No Does patient have any new or increased numbness or tingling of extremities? No Is patient interested in fertility information? No Does patient need any prescription refills? No Does patient have an advanced directive in place? No, Patient refused referral to Social Work or Resource Center documented in this encounter [facility] 06-13-2023 History of Presen t illness Narrative Images from the original note were not included. 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 On diagnosis, her lesion was about 4.5 mm located on her back with 2 negative sentinel lymph nodes in the left axilla. No reported neurtropism and only one mitotic figure. Margins were negative. No additional treatment was pursued given the low risk of distant melanoma and risk of recurrence for stage II at around 20%. Clinical trial was considered initially but she did not pursue it. She has been monitored via surveillance. Last seen in December 2022 INTERVAL HISTORY: Since last visit, she had a gamma knife procedure for her meningioma in January which went well. Denies any complication from the procedure and is scheduled to follow up visit with an MRI in September. Since last visit, no new issues and last visit with brush clearer surveying was about 6 months ago. She denies any nausea, vomiting, fevers, chills, night sweats, decreased appetite, headaches, dizziness, chest pain, shortness of breath, heart palpitations, abdominal pain, constipation, diarrhea, numbness, tingling, weakness, urinary and fecal issues, dark stools, bright red stools or hematuria. REVIEW OF SYSTEMS:As per HPI MEDICATIONS: REPATHA SURECLICK 140 mg/mL pen injector Inject 140 mg subcutaneously every 2 weeks. dexAMETHasone (DECADRON) 4 mg tablet Start the day after your Gamma Knife Procedure: Decadron (Dexamethasone), Take 4 mg (1 tablet) daily for 4 days, Take 2 mg (1/2 tablet) daily for 4 days, then stop Decadron famotidine (PEPCID) 20 mg tablet Take 1 tablet by mouth once daily. meloxicam (MOBIC) 15 mg tablet inclisiran (LEQVIO) 284 mg/1.5 mL injection omeprazole (PRILOSEC) 20 mg capsule Take 20 mg by mouth once daily. ALLERGIES No Known Allergies PHYSICAL EXAMINATION: BP 142/92 Pulse 79 Temp 36.4 C (97.6 F) (Temporal) Resp 20 Wt 95.8 kg (211 lb 3.2 oz) LMP 09/08/2019 SpO2 96% BMI 35.19 kg/m Body surface area is 2.1 meters squared. General appearance: Well appearing, alert, in no acute distress, well-hydrated, well nourished. Skin: Inspected prior surgical site with well healed scar on left upper back, no melanotic lesions visualized and satellite lesions visualized Head: Normocephalic Eyes: Anicteric sclera Neck: Supple. Lungs: No respiratory distress Lower Extremities - no edema LABS: Latest Ref Rng & Units 01/24/2019 CBC WBC 3.70 - 11.00 k/uL 8.14 RBC 3.90 - 5.20 m/uL 4.99 Hemoglobin 11.5 - 15.5 g/dL 14.1 Hematocrit 36.0 - 46.0 % 43.5 MCV 80.0 - 100.0 fL 87.2 MCH 26.0 - 34.0 pG 28.3 MCHC 30.5 - 36.0 g/dL 32.4 RDW-CV 11.5 - 15.0 % 12.1 Platelet Count 150 - 400 k/uL 285 MPV 9.0 - 12.7 fL 8.6 Baso% % 0.2 Abs Neut (ANC) 1.45 - 7.50 k/uL 5.09 Abs Lymph 1.00 - 4.00 k/uL 2.12 Abs Stanislaus <0.87 k/uL 0.72 Abs Eosin <0.46 k/uL 0.19 Abs Baso <0.11 k/uL <0.03 Diff Type Auto Diff Latest Ref Rng & Units 01/24/2019 CMP Sodium 136 - 144 mmol/L 141 Potassium 3.7 - 5.1 mmol/L 4.4 Chloride 97 - 105 mmol/L 102 CO2 22 - 30 mmol/L 27 Glucose 74 - 99 mg/dL 94 BUN 7 - 21 mg/dL 17 Creatinine 0.58 - 0.96 mg/dL 0.92 EGFR-All Other Races . >60 EGFR- >60 Protein, Total 6.3 - 8.0 g/dL 7.1 Albumin 3.9 - 4.9 g/dL 4.6 Calcium 8.5 - 10.2 mg/dL 9.8 Bilirubin, Total 0.2 - 1.3 mg/dL 0.3 AST 13 - 35 U/L 16 ALT 7 - 38 U/L 16 Alkaline Phosphatase 34 - 123 U/L 60 . 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 Currently on surveillance. - continue to follow up every 6 months - recommend follow up with brush clearer surveying Patient seen and discussed with Gastroenterology Oncology staff, Dr Echeverria Please do not hesitate to contact with questions or concerns. This is a preliminary note which reflects the assessment of the authoring hematology-oncology fellow only. The final assessment and recommendations may be edited by attending physician. Please see attestation. Nicole Beal MD Hematology & Oncology Fellow I have reviewed the history, physical obtained and documented by the Fellow and I personally participated in all of the beckwith components. I have discussed the case and management of the patient's care with the Fellow. The following comments revise or confirm relevant beckwith components of the Fellow. I spent 25 minutes in the visit, with more than 50% of the total [id number] time of the visit in counseling / coordination of care. Debbie Echeverria MD documented in this encounter [facility] 05-12-2023 Miscellaneous Notes Mateusz Roldan (RN)-via email: This patient had GK in January and their follow up MRI and appointment was never scheduled. She needs an MRI at [facility] and follow up same day with Ce piña. Schedule this for September please. Appointments scheduled. Mychart and letter sent. Marli Patino documented in this encounter [facility] 03-16-2023 Evaluation note Encounter Date Diagnosis Assessment Notes Mar, LLQ abdominal pain (ICD-10 - R10.32) Discussed differential - kidney stone, diverticulosis (recent normal colonoscopy), ovarian issue or constipation (no BM x 2 days) due to hematuria on UA - recommend CT without contrast to r/o stone. Mar, Microscopic hematuria (ICD-10 - R31.29) [employer] Other 12-14-2023 Evaluation note* Encounter Date Diagnosis Assessment Notes Treatment Notes Treatment Clinical Notes Mar, LLQ abdominal pain (ICD-10 - R10.32) Discussed differential - kidney stone, diverticulosis (recent normal colonoscopy), ovarian issue or constipation (no BM x 2 days) due to hematuria on UA - recommend CT without contrast to r/o stone. Mar, Microscopic hematuri a (ICD-10 - R31.29) Mar, [...] She would like to continue this treatment. [employer] Other 11-17-2023 NoteChief Complaint consultation for screening [...] (COVID-19) mRNA BNT-162b2 vax 05/15/2020 RecordedCleveland Clinic Mentor HospitalComment on above:Result Comment: Electronically Signed By: MAGALI MCKINLEY, Debbie He\Date and Time Signed: 02/17/23 15:11 [id number] Miscellaneous Notes* Telephone Encounter - Johann Henriquez [...] symptoms or concerns arise. documented in this encounterFulton County Health Center11-07-2023 Miscellaneous Notes* Telephone Encounter - Johann Henriquez RN - 02/07/2023 1:13 PM EST 2nd attempt to reach out, patient unavailable. Will send Maven7 message with contact information to call if she is experiencing any symptoms or has any concerns since gamma knife treatment. * Telephone Encounter - Johann Henriquez RN - 02/06/2023 1:17 PM EST Calling Ben for post-GKRS follow-up. Unable to reach at this time. Left voicemail. documented in this encounterFulton County Health Center11-01-2023 NoteHNO ID: [id number] Author: Burak Prakash MD Service: Radiation Oncology Author Type: Physician Type: Progress Notes Filed: 02/03/2023 12:33 AM Note Text: BEN CRUZ [id number] 02/01/2023 [facility] / [...] Electronically Signed cc: Dr. Gurpreet BeckwithNorthern [facility]23 NoteHNO ID: [id number] Author: Gurpreet Beckwith DO, PhD Service: ? Author Type: Physician Type: Progress Notes Filed: 01/27/2023 1:49 PM Note Text: [facility] [address] [place] [address] [place] OPERATIVE REPORT NAME: Ben Cruz [facility] NO.: [id number] MASK SIMULATION DATE: 2023-01-27 RADIATION TREATMENT START [...] Fractions: 1 After the usual quality control lab technician procedures were performed, fractionated 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 was delivered with use of the Gamma Knife. The Gamma Knife checklist and time outs were performed during this procedure. Gurpreet Beckwith DO, PhDSelect Medical Specialty [facility]10-27-2023 NoteHNO ID: [id number] Author: Burak Prakash MD Service: Radiation Oncology Author Type: Physician Type: Progress Notes Filed: 02/01/2023 12:33 AM Note Text: BEN CRUZ [id number] 01/27/2023 [facility] Cindi Diez Brain Tumor and Neuro-Oncology [facility] STEREOTACTIC RADIOSURGERY (SRS) DAILY PROCEDURE NOTE DATE [...] patient setup, I conferred with the medical staff director to approve the final setup. I was [...] [facility]10-27-2023 NoteHNO ID: [id number] Author: Burak Prakash MD Service: Radiation Oncology Author Type: Physician Type: Progress Notes Filed: 02/02/2023 12:32 AM Note Text: BEN CRUZ [id number] 01/27/2023 [facility] Cindi Diez [facility] Department of Radiation Oncology [facility] RADIATION ONCOLOGY GAMMA KNIFE SIMULATION NOTE DATE [...] treatment planning. Electronically Signed Burak Prakash M.D. 35:18 [facility]10-27-2023 NoteHNO ID: [id number] Author: Burak Prakash MD Service: Radiation Oncology Author Type: Physician Type: Progress Notes Filed: 02/01/2023 12:33 AM Note Text: BEN CRUZ [id number] 01/27/2023 [facility] Department of Radiation Oncology [facility] RADIATION ONCOLOGY GAMMA KNIFE TREATMENT PLANNING NOTE [...] DVH. Electronically Signed Burak Prakash M.D. / [facility] :29 [facility]10-27-2023 History of Present illness Narrative* Gurpreet Beckwith DO, PhD - 01/27/2023 1:49 PM EDT [facility] [address] [place] [address] [place] OPERATIVE REPORT NAME: Ben Cruz [facility] NO.: [id number] MASK SIMULATION DATE: 2023-01-27 RADIATION TREATMENT START [...] Fractions: 1 After the usual quality control lab technician procedures were performed, fractionated 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 was delivered with use of the Gamma Knife. The Gamma Knife checklist and time outs were performed during this procedure. Gurpreet Beckwith DO, PhD documented in this encounterFulton County Health Center10-27-2023 NoteHNO ID: [id number] Author: Gurpreet Beckwith DO, PhD Service: ? Author Type: Physician Type: Progress Notes Filed: 01/27/2023 11:22 AM Note Text: [facility] [address] [place] [address] [place] OPERATIVE REPORT NAME: Ben Cruz [facility] NO.: [id number] MASK SIMULATION DATE: 2023-01-27 RADIATION TREATMENT START [...] Fractions: 1 After the usual quality control lab technician procedures were performed, fractionated 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 was delivered with use of the Gamma Knife. The Gamma Knife checklist and time outs were performed during this procedure. Gurpreet Beckwith DO, PhDSelect Medical Specialty Hospital - [facility]10-27-2023 NoteHNO ID: [id number] Author: Zee Padilla Tech Service: Radiology Author Type: Remote Sensing Technologist Type: Progress Notes Filed: 01/27/2023 8:06 AM [...] BY: Tyshawn Lawler January 27, 2023 8:06 [facility]10-27-2023 NoteHNO ID: [id number] Author: Gurpreet Beckwith DO, PhD Service: ? [...] content not included)...[facility]10-27-2023 History of Present illness Narrative* Gurpreet Beckwith DO, PhD - 01/27/2023 11:21 AM EDT [facility] [address] [place] [address] [place] OPERATIVE REPORT NAME: Ben Cruz [facility] NO.: [id number] MASK SIMULATION DATE: 2023-01-27 RADIATION TREATMENT START [...] Fractions: 1 After the usual quality control lab technician procedures were performed, fractionated 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 was delivered with use of the Gamma Knife. The Gamma Knife checklist and time outs were performed during this procedure. Gurpreet Beckwith DO, PhD documented in this encounterFulton County Health Center10-27-2023 History of Present illness Narrative* Zee [...] 27, 2023 8:06 AM documented in this encounterFulton County Health Center10-27-2023 NoteHNO ID: [id number] Author: Anton Terrell RN Service: Nursing Author [...] Cruz DATE: January 27, 2023 TIME: 7:46 [facility]10-27-2023 NoteHNO ID: [id number] Author: Mariela Burk RT(R) Service: Radiology Author [...] BY: RT Nestor(R) January 27, 2023 7:59 [facility]10-27-2023 History of Present illness Narrative* Gurpreet [...] 123 U/L 60 Final Pathology: Specimen #: [id number]* Submitting Physician: DEBBIE ECHEVERRIA MD FINAL DIAGNOSIS [...] FRONTAL LOBE, UNCHANGED GOING BACK TO 06/01/2021 Apartment House Manager: TORI Transcribe Date/Time: Jan 27 2023 8:08A [...] PhD cc: Ben toro documented in this encounterFulton County Health Center10-27-2023 NoteHNO ID: [id number] Author: Gayle Acevedo RN Service: ? Author [...] Dr. Aria Beckwith DO, Kaitlin Plank, RN 8483 Mask SIM completed. Ben Cruz returned to [...] Gayle Acevedo RNSelect Medical Specialty Hospital - [facility]10-27-2023 Instructions* Patient Instructions* Gayle Acevedo RN - 01/27/2023 7:45 AM EDT [facility] Gamma Knife Center Discharge Instructions As [...] a physician or hospital other than the [facility] with any problem related to [...] may your physician, Dr. Virgil Beckwith at [phone] Monday through Monday 8:00 am to 5:00 pm, or call the Gamma Knife nurse Monday through Monday 8:00 am to 4:00 pm at [phone]. In the evening or on weekends, call [phone] or toll-free [phone] and ask the binder operator to page your neurosurgeon's resident pulmonary disease specialist. documented in this encounterFulton County Health Center10-27-2023 History of Present illness Narrative* Anton [...] 27, 2023 7:59 AM documented in this encounterFulton County Health Center10-27-2023 History of Present illness Narrative* Gayle [...] hCG. POC performed by: Gayle Acevedo RN 0965 4 mg Decadron PO given prior to GKRS per order of Dr. Virgil Beckwith 0946 GKRS start time. 1016 GKRS end time. 1025 Discharge instructions given to patient; instructions reviewed by this RN; patient/family verbalized understanding; patient discharged via/with Gayle Acevedo RN documented in this encounterFulton County Health Center10-27-2023 History of Present illness Narrative* Burak Prakash MD - 01/27/2023 12:00 AM EDT NANCY BEN Felix [id number] 01/27/2023 [facility] Cindi Tavarest Brain Tumor and Neuro-Oncology Center [facility] STEREOTACTIC RADIOSURGERY (SRS) DAILY PROCEDURE NOTE DATE [...] to patientsetup, I conferred with the medical staff director to approve the final setup. I was [...] Prakash M.D. :10 PM documented in this encounterFulton County Health Center10-27-2023 History of Present illness Narrative* Burak Prakash MD - 01/27/2023 12:00 AM EDT BEN CRUZ [id number] 01/27/2023 [facility] Department of Radiation Oncology [facility] RADIATION ONCOLOGY GAMMA KNIFE TREATMENT PLANNING NOTE [...] DVH. Electronically Signed Burak Prakash M.D. / [facility] 31:29 PM documented in this encounterFulton County Health Center09-21-2023 NoteHNO ID: [id number] Author: Debbie Echeverria MD Service: ? Author Type: Physician Type: Progress Notes Filed: 12/23/2022 9:46 AM Note Text: December 22, 2022 DXN: Resected T4aN0 desmoplastic melanoma. The lesion was about 4.5mm located on her back with 2 negative SLNs (left axilla). There was no reported neurtropism and only one mitotic figure. Margins were negative. Declined an adjuvant trial [place]. Baseline imaging today is negative CC: Melanoma [...] beckwith components of the Resident. Debbie Echeverria, [facility]08-15-2023 Miscellaneous Notes* Telephone Encounter - Betzy Heard RN - 11/15/2022 1:57 PM EDT Calling Ben to follow up on Maven7 message about scheduling gamma knife for 01/27/2023 No answer, left message stating that I'll go ahead and place the GK orders. Reminded to disregard ANY appointment times she sees in Maven7, any automated text reminders or automated phone calls for 01/27/23 She will receive a call from the GK nurse or radiation therapist the day before with her arrival time. If she has any questions, I left office phone # for call back or she can send a Maven7 message. I will send out a GK folder with additional information related to Mask Based Gamma Knife Radiosurgery Betzy Heard RN, BSN Dish Maker [facility] documented in this encounterFulton County Health Center08-04-2023 NoteHNO ID: [id number] Author: Gurpreet Beckwith DO, PhD Service: ? Author Type: Physician Type: Progress Notes Filed: 11/04/2022 1:27 PM Note Text: Brain Tumor Neuro-Oncology Center New Patient Virtual Consultation Referred by Dr. Luis Licona We had a virtual visit conducted via [employer] virtual visit. I received consent from the patient to perform the visit using this platform. I have communicated my name and active licensure. The patient's identity and physical location were verified at the time of this visit. Either the patient or their legal outbound sales representative has been informed of the [...] not included)...[facility] 11-04-2022 History of Present illness Narrative* Gurpreet Beckwith DO, PhD - 11/04/2022 1:00 PM EDT Images from the original note were not included. [facility] Tumor Neuro-Oncology Center New Patient Virtual Consultation Referred by Dr. Luis Licona We had a virtual visit conducted via [employer] virtual visit. I received consent from the patient to perform the visit using this platform. I have communicated my name and active licensure. The patient's identity and physical location wereverified at the time of this visit. Either the patient or their legal outbound sales representative has been informed of the [...] 123 U/L 60 Final Pathology: Specimen #: [id number]* Submitting Physician: DEBBIE ECHEVERRIA MD FINAL DIAGNOSIS Skin, left upper midline back, shave biopsy - Desmoplastic melanoma, see synoptic report. RADHA/evelyn 11/09/2018 Imaging: MRI Report MRI BRAIN WO/W IVCON Exam End: 10/17/2022 11:20 AM (Final result) Narrative: * * *Final Report* * * DATE OF EXAM: Oct 17 2022 11:20AM [facility]295 - MRI BRAIN WO/W IVCON / [...] with air-fluid level suggestive of acute/active sinusitis. Apartment House Manager: PSCWhit Transcribe Date/Time: Oct 17 2022 11:35A Dictated [...] which included preparing to see the patient, nran-wt-ktvo patient care, completing clinical documentation, obtaining and/or reviewing separately obtained history, performing a medically appropriate examination, counseling and educating the pat ient/family/caregiver, ordering medications, tests, or procedures, communicating with other HCPs (not separately reported), independently interpreting results (not separately reported), communicatingresults to the patient/family/caregiver, and care coordination (not separately reported). Gurpreet Beckwith DO, PhD cc: Ben toro documented in this encounterFulton County Health Center07-31-2023 Evaluation note* Encounter Date Diagnosis Assessment Notes Treatment Notes Treatment Clinical Notes Oct, Screen for colon cancer (ICD-10 - Z12.11) [employer] Other 07-19-2023 NoteHNO ID: [id number] Author: Luis Licona MD Service: ? Author [...] not included)... [facility]07-19-2023 History of Present illness Narrative* Luis Licona MD - 10/19/2022 4:30 PM EDT Radiation Oncology - [facility] This visit is a [...] Licona MD cc: Debbie Echeverria [address] [address] documented in this encounterFulton County Health Center07-18-2023 NoteHNO ID: [id number] Author: Trista Bonilla APRN.CNP Service: ? Author Type: Nurse Practitioner Type: Progress Notes Filed: 10/19/2022 12:11 AM Note Text: Elements of this note, including HPI, ROS, Physical Exam, Assessment and Plan were copied and pasted from 02/28/22 encounter with me. Updates have been made where noted and reflect current exam and medical decision making from October 18, 2022. Trista Bonilla APRN.SHERITA. [facility] DISTANCE HEALTH VISIT This visit is a Virtual MyChart video visit encounter which required patient-provider interaction for the medical decision making as documented below. Persons Present: patient Ben Cruz has consented to this distance health encounter. Total Time Spent: more than 20 minutes lims-ym-vxdg with the patient and over half the [...] DATE OF EXAM: Oct 17 2022 11:20AM [facility] 0295 - MRI BRAIN WO/W IVCON / [...] with air-fluid level suggestive of acute/active sinusitis. Apartment House Manager: TORI Transcribe Date/Time: Oct 17 2022 11:35A [...] content not included)...[facility]07-18-2023 History of Present illness Narrative* Trista Bonilla APRN.SHERITA - 10/18/2022 10:30 AM EDT Elements of this note, including HPI, ROS, Physical Exam, Assessment and Plan were copied and pasted from 02/28/22 encounter with me. Updates have been made where noted and reflect current exam and medical decision making from October 18, 2022. Trista Bonilla APRN.SHERITA. [facility] DISTANCE HEALTH VISIT This visit is a Virtual MyChart video visit encounter which required patient- provider interaction for the medical decision making as documented below. Persons Present: patient Ben Cruz has consented to this distance health encounter. Total Time Spent: more than 20 minutes svlk-hp-zgnr with the patient and over half the [...] DATE OF EXAM: Oct 17 2022 11:20AM [facility] 0295 - MRI BRAIN WO/W IVCON / [...] with air-fluid level suggestive of acute/active sinusitis. Apartment House Manager: [facility]ITALWhit Transcribe Date/Time: Oct 17 2022 11:35A [...] treatment options, per patient request. Trista Bonilla APRN.SALES SUPPORT SPECIALIST Cc: Dr. Luis Echeverria documented in this encounterFulton County Health Center07-17-2023 NoteHNO ID: [id number] Author: Nidia Morelos RN Service: Nursing Author [...] Cruz DATE: October 17, 2022 TIME: 10:40 [facility]07-17-2023 NoteHNO ID: [id number] Author: Barbara Gaxiola, deep well contractor Service: Radiology Author Type: Remote Sensing Technologist Type: Progress Notes Filed: 10/17/2022 10:54 AM [...] Site disposition Discontinued SIGNED BY: Barbara Gaxiola deep well contractor October 17, 2022 10:53 [facility]07-17-2023 History of Present illness Narrative* Nidia [...] 2022 TIME: 10:40 AM * Barbara Gaxiola deep well contractor - 10/17/2022 10:40 AM EDT Radiology Service [...] Site disposition Discontinued SIGNED BY: Barbara Gaxiola deep well contractor October 17, 2022 10:53 AM documented in this encounterFulton County Health Center06-21-2023 Evaluation note* Encounter Date Diagnosis Assessment [...] the berberine and get back to patient. [employer] Other 05-31-2023 Miscellaneous Notes* Telephone Encounter - [...] Prescription should be sent to the [facility] in [place] on [facility] [address] [facility]. [facility] [phone] [place] [id number] documented in this encounterFulton County Health Center03-21-2023 NoteHNO ID: [id number] Author: Debbie Echeverria MD Service: ? Author Type: Physician Type: Progress Notes Filed: 06/21/2022 11:09 AM Note Text: June 21, 2022 DXN: Resected T4aN0 desmoplastic melanoma. The lesion was about 4.5mm located on her back with 2 negative SLNs (left axilla). There was no reported neurtropism and only one mitotic figure. Margins were negative. Declined an adjuvant trial in [place]. Baseline imaging today is negative CC: Melanoma [...] with more than 50% of the total hvdk-jf-oveu time of the visit in counseling / coordination of care. Debbie Echeverria, [facility]03-21-2023 History of Present illness Narrative* Debbie Echeverria MD - 06/21/2022 11:08 AM EDT June 21, 2022 DXN: Resected T4aN0 desmoplastic melanoma. The lesion was about 4.5mm located on her back with 2 negative SLNs (left axilla). There was no reported neurtropism and only one mitotic figure. Margins were negative. Declined an adjuvant trial in [place]. Baseline imaging today is negative CC: Melanoma [...] with more than 50% of the total zhjs-qg-xzbm time of the visit in counseling / coordination of care. Debbie Echeverria MD documented in this encounterFulton County Health Center03-21-2023 Nurse Note* Vanessa Giang LPN - 06/21/2022 10:29 AM EDT Additional intake questions: Has the patient had fever, nausea, vomiting, diarrhea, constipation, fatigue for > 1 week? Yes, fatigue and Provider Notified Does the patient have a decreased appetite? No Does patient want to see a Supervisor Epoxy Fabrication? No (yes to any of above refer patient to schedulers for dietitian appointment) ) Does patient have any new or increased numbness or tingling of extremities? No Is patient interested in fertility information? NA Does patient need any prescription refills? No Does patient have an advanced directive in place? No, Patient refused referral to Social Work or Resource Center documented in this encounterFulton County Health Center11-28-2022 History of Present illness Narrative* Trista Bonilla APRN.SHERITA - 02/28/2022 10:30 AM EST [facility] VISIT This visit is a Virtual MyChart video visit encounter which required patient- provider interaction for the medical decision making as documented below. Persons Present: patient Ben Cruz has consented to this distance health encounter. 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 She denies focal weakness, dizziness, gait instability, or seizures. Data Reviewed: MRI Report MRI BRAIN WO/W IVCON Exam End: 02/23/2022 11:31 AM (Final result) Narrative: * * *Final Report* * * DATE OF EXAM: Feb 23 2022 11:31AM SHREYA Rao5 - MRI BRAIN WO/W IVCON [...] unremarkable MRI brain with and without contrast. Apartment House Manager: [facility]B Transcribe Date/Time: Feb 23 2022 11:50A Dictated [...] She will continue to get MRI at [facility] and present in VV follow up. Trista Bonilla APRN.SHERITA Cc: Dr. Luis Echeverria documented in this encounterFulton County Health Center11-23-2022 History of Present illness Narrative* Nidia [...] 2022 TIME: 10:33 AM * Barbara Gaxiola deep well contractor - 02/23/2022 10:40 AM EST Radiology Service [...] 23, 2022 10:57 AM documented in this encounterFulton County Health Center09-20-2022 History of Present illness Narrative* Debbie Echeverria MD - 12/21/2021 1:37 PM EDT December 21, 2021 DXN: Resected T4aN0 desmoplastic melanoma. The lesion was about 4.5mm located on her back with 2 negative SLNs (left axilla). There was no reported neurtropism and only one mitotic figure. Margins were negative. Declined an adjuvant trial [place]. Baseline imaging today is negative CC: Melanoma [...] Plan were copied and pasted from my 06.24.21 distance encounter. Updates have been made where noted and reflect current exam and medical decision making from December 21, 2021 I spent 25 minutes in the visit, with more than 50% of the total sgka-kd-zswb time of the visit in counseling / coordination of care. Debbie Echeverria MD documented in this encounterFulton County Health Center09-20-2022 Nurse Note* Tiny Mkcoy LPN - 12/21/2021 1:20 PM EDT Additional intake questions: Has the patient had fever, nausea, vomiting, diarrhea, constipation, fatigue for > 1 week? Yes, fatigue Does the patient have a decreased appetite? No Does patient want to see a Supervisor Epoxy Fabrication? No (yes to any of above refer patient to schedulers for dietitian appointment) ) Does patient have any new or increased numbness or tingling of extremities? No Is patient interested in fertility information? No Does patient need any prescription refills? No Does patient have an advanced directive in place? No, Patient refused referral to Social Work or Resource Center documented in this encounterFulton County Health Center09-02-2022 Miscellaneous Notes* Telephone Encounter - Jaylene Jacobson RN - 12/03/2021 12:49 PM EDT Patient needs a follow up visit (no labs or scans) around 12/25/21. She accepted a visit on 12/21 at 1:30 pm. Jaylene Jacobson RN * Telephone Encounter - Mary Lindsay - 12/01/2021 4:45 PM EDT Ben Nancy is calling Debbie Echeverria MD today regarding Dish Maker - Other Patient called scheduling to schedule 6 mo follow up but was unable to get thru, so calling office for Dr. Echeverria to get it scheduled. Can she be called once appointment is made? Patient has been identified by name and birthdate. Requesting response back: [phone] (home) [phone] (cell) Mary ClaudiaSungVela December 01, 2021 documented in this encounterFulton County Health Center05-23-2022 History of Present illness Narrative* Luis [...] an updated MRI in 6 months in [place] followed by a virtual visit for further meningioma surveillance, with additional surveillance plan to be developed thereafter. Zhanna Le MD Radiation Oncology Resident [phone] STAFF ADDENDUM I saw and evaluated the [...] brain. Luis Licona MD cc: Debbie Echeverria [id number] [facility] [id number] documented in this encounterFulton [facility] of Present illness Narrative* Nidia [...] 23, 2021 12:14 PM [facility] History of Present illness Narrative* Nazanin [...] 2021 TIME: 10:22 AM * Barbara Gaxiola deep well contractor - 06/16/2021 10:00 AM EDT Radiology Service [...] 16, 2021 10:35 AM [facility] History of Present illness Narrative* Barbara Gaxiola deep well contractor - 06/01/2021 11:20 AM EST Radiology Service [...] 2021 TIME: 11:13 AM documented in this encounterAd[facility]eral[facility] + Plan note No data available for this section General Surgery [place] Evaluation note* Diagnosis 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 documented in this encounter [facility] note* Diagnosis 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 [facility]* Diagnosis Benign neoplasm of meninges (HCC)- Primary Benign neoplasm of cerebral meninges documented in this encounter [facility] note* Diagnosis 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) documented in this encounter [facility] noteNo InformationNort [employer] Other Evaluation note* Diagnosis Meningioma (HCC)- Primary Benign neoplasm of cerebral meninges documented in this encounter [facility] note* Diagnosis Meningioma (HCC)- Primary Benign neoplasm of cerebral meninges documented in this encounter [facility] note* Diagnosis Benign neoplasm of meninges (HCC)- Primary Benign neoplasm of cerebral meninges documented in this encounter [facility] note* Diagnosis Benign neoplasm of meninges (HCC)- Primary Benign neoplasm of cerebral meninges documented in this encounter [facility] note* Diagnosis Benign neoplasm of meninges (HCC)- Primary Benign neoplasm of cerebral meninges documented in this encounter [facility] note* Diagnosis Benign neoplasm of meninges (HCC)- Primary Benign neoplasm of cerebral meninges documented in this encounter [facility] note* Diagnosis 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 documented in this encounter [facility] note* Diagnosis 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 documented in this encounter [facility] note* Diagnosis 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 documented in this encounter [facility] note* Diagnosis 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) Liver lesion Other specified disorders of liver documented in this encounter [facility] note* Diagnosis 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 documented in this encounter [facility] note* Diagnosis 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 documented in this encounter [facility] general Narrative - Reported* Type Description Date Medical History melanoma Surgical History laminectomy Surgical History c-sectionx 2 Surgical History hysterectomy Surgical History lump removed right wrist Surgical History melanoma removal [employer] Other History general Narrative - ReportedNoISBX Other History general Narrative - Reported* Type Description Date Medical History melanoma Surgical History laminectomy Surgical History c-sectionx 2 Surgical History hysterectomy Surgical History lump removed right wrist Surgical History melanoma removal Surgical History Colonoscopy 03/2023 [employer] Other Hospital Discharge instructions No data available for this section General Surgery [place] Progress note No data available for this section General Surgery [place] Reason for Referral Specialty Diagnoses / Procedures Referred By Selene lloyd Referred To Contact MR IMAGING Diagnoses Benign neoplasm of meninges (HCC) Procedures MRI BRAIN WO/W IVCON MRI BRAIN BRAIN STEM W/O W/[place] [address] [place] [address] Mr Imaging Referral ID Status Reason Start Date Expiration Date Visits Requested Visits Authorized [id number] Pending Review Auto-Generat ed Referral 08/23/2021 09/22/2022 1 1 Specialty Diagnoses / Procedures Referred By Selene lloyd Referred To Contact MR IMAGING Diagnoses Benign neoplasm of meninges (HCC) Procedures MRI BRAIN WO/W IVCON MRI BRAIN BRAIN STEM W/O W/CONTRAST MATERIAL Trista Bonilla APRN.SHERITA [address] [place] [id number] Mr Imaging Referral ID Status Reason Start Date Expiration Date Visits Requested Visits Authorized [id number] Pending Review Auto-Generat ed Referral 08/29/2022 03/31/2023 1 1 Reason *FU 11/15 screenin g colonoscopy Diagnosis 1 Screen for colon can cer (Z12.11) Referral Organization [facility] elias Referring Provider First Name Lissett Referring Provider Last Name Gary Referring Provider Specialty [facility] Referred Organization [facility] Referred Provider Tucker Ann Referred Address [address] [place], [place],[address] Referred Provider Specialty General Surg katelyn Referral Priority Routine General Notes Louise Livingston 10:47:05 AM >received today, attachments made, notes locked, referral faxed Clinical Notes F: [id number] Specialty Diagnoses / Procedures Referred By Selene lloyd Referred To Contact MR IMAGING Diagnoses Benign neoplasm of meninges (HCC) Procedures MRI BRAIN LOCALIZATION W IVCON UNLISTED MAGNETIC RESONANCE PROCED Gurpreet Beckwith DO, PhD [address] [place] [address] Mr Imaging [place] [address] Referral ID Status Reason Start Date Expiration Date V isits Requested Visits Authorized [id number] Closed Auto-Generate d Referral 12/06/2022 1 1 Specialty Diagnoses / Procedures Referred By Contac t Referred To Contact MR IMAGING Diagnoses Benign neoplasm of meninges (HCC) Procedures MRI BRAIN WO/W IVCON MRI BRAIN BRAIN STEM W/O W/[place] [address] [place] [address] Mr Imaging [place] [address] Referral ID Status Reason Start Date Expiration Date V isits Requested Visits Authorized [id number] Closed Auto-Generate d Referral 06/21/2021 09/18/2021 1 1 Specialty Diagnoses / Procedures Referred By Contac t Referred To Contact MR IMAGING Diagnoses 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) Liver lesion Procedures MRI LIVER WO/W IVCON MRI ABDOMEN W/O & W/[place] [address] [place] [address] Mr Imaging [place] [address] Referral ID Status Reason Start Date Expiration Date V isits Requested Visits Authorized [id number] Closed Auto-Generate d Referral 05/20/2021 07/11/2021 1 1 Specialty Diagnoses / Procedures Referred By Contac t Referred To Contact MR IMAGING Diagnoses Benign neoplasm of meninges (HCC) Procedures MRI BRAIN WO/W IVCON MRI BRAIN BRAIN STEM W/O W/CONTRAST MATERIAL Trista Bonilla APRN.[employer] SU[employer] SPECIALIST [address] [place] [address] Mr Imaging [place] [address] Referral ID Status Reason Start Date Expiration Date V isits Requested Visits Authorized [id number] Closed Auto-Generate d Referral 08/29/2022 03/31/2023 1 1 Referral ID Status Reason Start Date Expiration Date V isits Requested Visits Authorized [id number] Closed Auto-Generate d Referral 08/23/2021 03/20/2022 1 [...] or prosecute any alcohol or drug abuse patient.[facility] CenterIn the event this information is protected by the Federal Confidentiality of Alcohol and Drug Abuse Patient Records regulations: The Federal rules restrict any use of the information to criminally investigate or prosecute any alcohol or drug abuse patient.[facility] CenterIn the event this information is protected by the Federal Confidentiality of Alcohol and Drug Abuse Patient Records regulations: The Federal rules restrict any use of the information to criminally investigate or prosecute any alcohol or drug abuse patient.[facility] CenterIn the event this information is protected by the Federal Confidentiality of Alcohol and Drug Abuse Patient Records regulations: The Federal rules restrict any use of the information to criminally investigate or prosecute any alcohol or drug abuse patient.[facility] CenterIn the event this information is protected by the Federal Confidentiality of Alcohol and Drug Abuse Patient Records regulations: The Federal rules restrict any use of the information to criminally investigate or prosecute any alcohol or drug abuse patient.[facility] CenterIn the event this information is protected by the Federal Confidentiality of Alcohol and Drug Abuse Patient Records regulations: The Federal rules restrict any use of the information to criminally investigate or prosecute any alcohol or drug abuse patient.[facility] CenterIn the event this information is protected by the Federal Confidentiality of Alcohol and Drug Abuse Patient Records regulations: The Federal rules restrict any use of the information to criminally investigate or prosecute any alcohol or drug abuse patient.[facility] CenterIn the event this information is protected by the Federal Confidentiality of Alcohol and Drug Abuse Patient Records regulations: The Federal rules restrict any use of the information to criminally investigate or prosecute any alcohol or drug abuse patient.[facility] the event this information is protected by the Federal Confidentiality of Alcohol and Drug Abuse Patient Records regulations: The Federal rules restrict any use of the information to criminally investigate or prosecute any alcohol or drug abuse patient.[facility] CenterIn the event this information is protected by the Federal Confidentiality of Alcohol and Drug Abuse Patient Records regulations: The Federal rules restrict any use of the information to criminally investigate or prosecute any alcohol or drug abuse patient.[facility] CenterIn the event this information is protected by the Federal Confidentiality of Alcohol and Drug Abuse Patient Records regulations: The Federal rules restrict any use of the information to criminally investigate or prosecute any alcohol or drug abuse patient.[facility] CenterIn the event this information is protected by the Federal Confidentiality of Alcohol and Drug Abuse Patient Records regulations: The Federal rules restrict any use of the information to criminally investigate or prosecute any alcohol or drug abuse patient.[facility] CenterIn the event this information is protected by the Federal Confidentiality of Alcohol and Drug Abuse Patient Records regulations: The Federal rules restrict any use of the information to criminally investigate or prosecute any alcohol or drug abuse patient.[facility] CenterIn the event this information is protected by the Federal Confidentiality of Alcohol and Drug Abuse Patient Records regulations: The Federal rules restrict any use of the information to criminally investigate or prosecute any alcohol or drug abuse patient.[facility] CenterIn the event this information is protected by the Federal Confidentiality of Alcohol and Drug Abuse Patient Records regulations: The Federal rules restrict any use of the information to criminally investigate or prosecute any alcohol or drug abuse patient.[facility] CenterIn the event this information is protected by the Federal Confidentiality of Alcohol and Drug Abuse Patient Records regulations: The Federal rules restrict any use of the information to criminally investigate or prosecute any alcohol or drug abuse patient.[facility] CenterIn the event this information is protected by the Federal Confidentiality of Alcohol and Drug Abuse Patient Records regulations: The Federal rules restrict any use of the information to criminally investigate or prosecute any alcohol or drug abuse patient.[facility] CenterIn the event this information is protected by the Federal Confidentiality of Alcohol and Drug Abuse Patient Records regulations: The Federal rules restrict any use of the information to criminally investigate or prosecute any alcohol or drug abuse patient.[facility] CenterIn the event this information is protected by the Federal Confidentiality of Alcohol and Drug Abuse Patient Records regulations: The Federal rules restrict any use of the information to criminally investigate or prosecute any alcohol or drug abuse patient.[facility] CenterIn the event this information is protected by the Federal Confidentiality of Alcohol and Drug Abuse Patient Records regulations: The Federal rules restrict any use of the information to criminally investigate or prosecute any alcohol or drug abuse patient.[facility] CenterIn the event this information is protected by the Federal Confidentiality of Alcohol and Drug Abuse Patient Records regulations: The Federal rules restrict any use of the information to criminally investigate or prosecute any alcohol or drug abuse patient.[facility] CenterIn the event this information is protected by the Federal Confidentiality of Alcohol and Drug Abuse Patient Records regulations: The Federal rules restrict any use of the information to criminally investigate or prosecute any alcohol or drug abuse patient.[facility] CenterIn the event this information is protected by the Federal Confidentiality of Alcohol and Drug Abuse Patient Records regulations: The Federal rules restrict any use of the information to criminally investigate or prosecute any alcohol or drug abuse patient.[facility] CenterIn the event this information is protected by the Federal Confidentiality of Alcohol and Drug Abuse Patient Records regulations: The Federal rules restrict any use of the information to criminally investigate or prosecute any alcohol or drug abuse patient.[facility] CenterIn the event this information is protected by the Federal Confidentiality of Alcohol and Drug Abuse Patient Records regulations: The Federal rules restrict any use of the information to criminally investigate or prosecute any alcohol or drug abuse patient.[facility] CenterIn the event this information is protected by the Federal Confidentiality of Alcohol and Drug Abuse Patient Records regulations: The Federal rules restrict any use of the information to criminally investigate or prosecute any alcohol or drug abuse patient.[facility] CenterIn the event this information is protected by the Federal Confidentiality of Alcohol and Drug Abuse Patient Records regulations: The Federal rules restrict any use of the information to criminally investigate or prosecute any alcohol or drug abuse patient.[facility] CenterIn the event this information is protected by the Federal Confidentiality of Alcohol and Drug Abuse Patient Records regulations: The Federal rules restrict any use of the information to criminally investigate or prosecute any alcohol or drug abuse patient.[facility] Reason for Visit (unrecogniz ed section [...] COMPLEX CRANIAL LESION [facility] [address] [place] [address] Referral ID Status Reason Start Date Expiration Date Visits Re quested Visits Authorized [id number] [address] Specialty Diagnoses / Procedures [facility] Referred To Contact ADMITTING Diagnoses Benign neoplasm of meninges (HCC) Procedures RADIATION DELIVERY STEREOTACTIC CRANIAL [place] STEREOTACTIC RADIOSURGERY 1 COMPLEX CRANIAL LES RADIATION [place] STEREOTACTIC RADIOSURGERY (SRS) [place] CRANIAL LESION(S) 1 SESSION MULTI-SOURCE [place] STEREOTACTIC RADIOSURGERY 1 COMPLEX CRANIAL LESION [facility] [address] [address] Reason Comments Recheck Reason Comments Dish Maker - Other Reason Comments Established Patient Reason Comments Established Patient Reason Comments Recheck Reason Comments Consult GK consult for LF me ningioma Reason Comments Dish Maker - 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 Reason Comments Procedure GKRS Reason Comments Radiology MRI Specialty Diagnoses / Procedures Referred By Contac t Referred To Contact MR IMAGING Diagnoses 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) New daily persistent headache Other headache syndrome Procedures MRI BRAIN WO/W IVCON MRI BRAIN BRAIN STEM W/O W/[place] [address] [place] [address] Mr Imaging [id number] Referral ID Status Reason Start Date Expiration Date V isits Requested Visits Authorized [id number] Closed Auto-Generate d Referral 04/29/2021 06/13/2021 1 1 Specialty Diagnoses / Procedures Referred By Contac t Referred To Contact MR IMAGING Diagnoses Benign neoplasm of meninges (HCC) Procedures MRI BRAIN WO/W IVCON MRI BRAIN BRAIN STEM W/[place] [address] [place] [address] Mr Imaging [id number] Referral ID Status Reason Start Date Expiration Date V isits Requested Visits Authorized [id number] Closed Auto-Generate d Referral 06/21/2021 09/18/2021 1 1 Specialty Diagnoses / Procedures Referred By Contac t Referred To Contact MR IMAGING Diagnoses 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) Liver lesion Procedures MRI LIVER WO/W IVCON MRI ABDOMEN W/O & W/CONTRAST MATERIAL Debbie Echeverria MD [address] [place], [place] [id number] Mr Imaging [id number] Referral ID Status Reason Start Date Expiration Date V isits Requested Visits Authorized [id number] Closed Auto-Generate d Referral 05/20/2021 07/11/2021 1 1 Specialty Diagnoses / Procedures Referred By Contac t Referred To Contact MR IMAGING Diagnoses Benign neoplasm of meninges (HCC) Procedures MRI BRAIN WO/W IVCON MRI BRAIN BRAIN STEM W/O W/CONTRAST MATERIAL Trista Bonilla APRN.[employer]AL[employer] SUPPORT SPECIALIST [address] [place] [address] Mr Imaging [id number] Referral ID Status Reason Start Date Expiration Date V isits Requested Visits Authorized [id number] Closed Auto-Generate d Referral 08/29/2022 03/31/2023 1 1 Referral ID Status Reason Start Date Expiration Date V isits Requested Visits Authorized [id number] Closed Auto-Generate d Referral 08/23/2021 03/20/2022 1 1 Reason Comments Gamma Knife Follow-up Reason Comments Appointment Ce Piña Reason Comments Established Patient Follow-Up INFORMATION SOURCE (unrecogn ized section and content) DATE CREATED AUTHOR 06/10/2022 [facility] DATE CREATED AUTHOR AUTHOR'S ORGANIZ ATION 02/04/2023 [facility] DATE CREATED AUTHOR AUTHOR'S ORGANIZ ATION 03/30/2023 Awad Piyush [facility] DATE CREATED AUTHOR AUTHOR'S ORGANIZ ATION 06/05/2023 [facility] DATE CREATED AUTHOR AUTHOR'S ORGANIZ ATION 06/08/2023 [facility] DATE CREATED AUTHOR AUTHOR'S ORGANIZ ATION 06/16/2023 [facility] Care Teams (unrecognized sec tion and content) Chief Librarian Circulation Department Relationship Specialty Start Date End Date Lissett Vega MD [address] [facility] [place] [address] PCP - General Family Medicine 01/17/23 Chief Librarian Circulation Department Relationship Specialty Start Date End Date Lissett Vega MD [address] [facility] [place] [address] PCP - General Family Medicine 01/17/23 Chief Librarian Circulation Department Relationship Specialty Start Date End Date Lissett Vega MD [address] [facility] [place] [address] PCP - General Family Medicine 01/17/23 Chief Librarian Circulation Department Relationship Specialty Start Date End Date Lissett Vega MD [address] [facility] [place] [address] PCP - General Family Medicine 01/17/23 Chief Librarian Circulation Department Relationship Specialty Start Date End Date Lissett Vega MD [address] [facility] [place] [address] PCP - General Family Medicine 01/17/23 Chief Librarian Circulation Department Relationship Specialty Start Date End Date Lissett Vega MD [address] [place] [address] PCP - [facility] 01/17/23 Chief Librarian Circulation Department Relationship Specialty Start Date End Date Lissett Vega MD [address] [place] [address] PCP - General [facility] 01/17/23 Chief Librarian Circulation Department Relationship Specialty Start Date End Date Lissett Vega MD [address] [place] [address] PCP - General [facility] 01/17/23 FOR RECORDS PERTAINING TO PATIENTS WHO [...] BE BASED ON THE PRIMARY CLINICAL RECORDS. [facility] [employer] [facility]. provides no warranty or guarantee of the accuracy or completeness of information in this document.
== END 2023-06-16 09:53 | disposition home or self-care (01) ==
LOC: EC 09:52
PROVIDERS: PCP Family Medicine; Visit Provider Podiatrist Foot & Ankle Surgery
DX: M79.672 Pain in left foot (principal); Z98.890 Other specified postprocedural states
CPT/HCPCS: 73630

== ENCOUNTER 2023-06-21 16:17 | Outpatient (RCR) | payer OTHER, SELFPAY | END 2023-08-03 12:43 | disposition home or self-care (01) | LOC: PT 16:17 | PROVIDERS: PCP Family Medicine; Visit Provider Podiatrist Foot & Ankle Surgery | DX: M25.372 Other instability, left ankle (principal); G58.8 Other specified mononeuropathies | CPT/HCPCS: 97014; 97035; 97110; 97112; 97140; 97162; 97530 ==

== ENCOUNTER 2023-07-18 15:37 | Outpatient (OUT) | payer OTHER, SELFPAY ==
--- NOTE | 2023-07-18 | XR_ITS ---
The [address] [address] Patient Name: BEN TABOR MRN: [id number] date: 1975 Sex: F Assigned Patient Location: Current Patient Location: Accession/Order Number: [id number] Exam Date: 07/18/2023 15:38 Report Date: 07/19/2023 08:45 At the request of: ALEKSANDER FALCON Procedure: XR foot LT min 3V PROCEDURE: XR foot LT min 3V COMPARISON: 06/16/2023 HISTORY: LEFT FOOT PAIN FINDINGS: BONES:Stable posterior calcaneal osteotomy transfixed with 2 screws. The bony bridging across the osteotomy site. Shave osteotomy lateral head of the fifth metatarsal Increase in permeative pattern throughout the bones. SOFT TISSUES:Negative. No visible soft tissue swelling. EFFUSION:None visible. OTHER: Negative. XR/XR foot LT min 3V IMPRESSION: Stable postsurgical changes Progression of osteopenia Electronically authenticated by: ZHANNA DELONG Date: 07/19/2023 08:45
== END 2023-07-18 15:38 | disposition home or self-care (01) ==
LOC: EC 15:38
PROVIDERS: PCP Family Medicine; Visit Provider Podiatrist Foot & Ankle Surgery
DX: M79.672 Pain in left foot (principal)
CPT/HCPCS: 73630

== ENCOUNTER 2023-09-01 09:50 | Outpatient (OUT) | payer OTHER, SELFPAY ==
--- NOTE | 2023-09-01 | XR_ITS ---
The [address] [address] Patient Name: BEN TABOR MRN: [id number] date: 1975 Sex: F Assigned Patient Location: Current Patient Location: Accession/Order Number: [id number] Exam Date: 09/01/2023 09:51 Report Date: 09/04/2023 07:35 At the request of: ALEKSANDER FALCON Procedure: XR ankle LT min 3V PROCEDURE: XR foot LT min 3V, XR ankle LT min 3V HISTORY: LEFT FOOT PAIN COMPARISON: XR foot left 07/18/2023, XR ankle left 03/30/2023 FINDINGS: BONES:Section of lateral aspect of 5th metatarsal head and resection of the head of the 5th proximal phalanx. Prior posterior calcaneal osteotomy and repair. SOFT TISSUES:Mild lateral soft tissue swelling. EFFUSION:None visible. OTHER: Negative. XR/XR ankle LT min 3V IMPRESSION: 1. Stable surgical changes without evidence of osteomyelitis, hardware failure, or change in alignment. Electronically authenticated by: YASSINE SANCHEZ Date: 09/04/2023 07:35
--- NOTE | 2023-09-01 | XR_ITS ---
The [address] [address] Patient Name: BEN TABOR MRN: [id number] date: 1975 Sex: F Assigned Patient Location: Current Patient Location: Accession/Order Number: [id number] Exam Date: 09/01/2023 09:51 Report Date: 09/04/2023 07:35 At the request of: ALEKSANDER FALCON Procedure: XR foot LT min 3V PROCEDURE: XR foot LT min 3V, XR ankle LT min 3V HISTORY: LEFT FOOT PAIN COMPARISON: XR foot left 07/18/2023, XR ankle left 03/30/2023 FINDINGS: BONES:Section of lateral aspect of 5th metatarsal head and resection of the head of the 5th proximal phalanx. Prior posterior calcaneal osteotomy and repair. SOFT TISSUES:Mild lateral soft tissue swelling. EFFUSION:None visible. OTHER: Negative. XR/XR foot LT min 3V IMPRESSION: 1. Stable surgical changes without evidence of osteomyelitis, hardware failure, or change in alignment. Electronically authenticated by: YASSINE SANCHEZ Date: 09/04/2023 07:35
--- OUTSIDE RECORDS SUMMARY | 2023-09-01 09:54 | XMS_ITS | CCD ---
Author Organization [facility] Care Team Providers Care Non Ferrous Material Handler Name Role Phone Unavailable Primary Care Provider Jacqueline VEGA, DR LISSETT Fung Admitting Unavailable GARY, DR LISSETT Fung Attending Unavailable GARY, DR LISSETT Fung Primary Care Unavailable [facility] [place] Consulting Unavailable GARY, DR LISSETT Fung Consulting Unavailable GARY, DR LISSETT Fung Admitting Unavailable GARY, DR LISSETT Fung Attending Unavailable VEGA, DR LISSETT Fung Primary Care Unavailable GARY, DR LISSETT Fung Consulting Unavailable KARASIK ., DR MERLOS Admitting Unavaildipika e KARASIK ., DR MERLOS Attending Unavaildipika e GARY, DR LISSETT Fung Primary Care Unavailable KARASIK [...] Unavailable Lissett Vega MD Primary Care Provider LISSETT VEGA Primary Care Physician Debbie DE LOS SANTOS Attending Unavailable Debbie DE LOS SANTOS Attending Unavailable VETO SHIN Attending Unavailable Jes Vieira Admitting Unavailable Jes Vieira Attending Unavailable Lisstet Vega Primary Care Unavailable Lissett Vega Primary Care Unavailable Taz Rossi Admitting Unavailable Taz Rossi Attending Unavailable LISSETT VEGA Primary Care Unavailable BURAK PRAKASH Attending Unavailable GURPREET BECKWITH Admitting Unavailable GURPREET BECKWITH Attending Unavailable GURPREET BECKWITH Referring Unavailable LISSETT VEGA Primary Care Unavailable DEBBIE ECHEVERRIA Referring Unavailable TRISTA BONILLA Attending Unavailable DEBBIE ECHEVERRIA Referring Unavailable LUIS LICONA Attending Unavailable BECKWITH, GURPREET Attending Unavailable BECKWITH, GURPREET Referring Unavailable BECKWITH, GURPREET Admitting Unavailable DEBBIE ECHEVERRIA Attending Unavailable DEBBIE ECHEVERRIA Referring Unavailable DEBBIE ECHEVERRIA Attending Unavailable ASHVIN VEGAIA E Primary Care Unavailable BECKWITH, GURPREET Attending Unavailable BECKWITH, GURPREET Referring Unavailable BECKWITH, GURPREET Admitting Unavailable VEGA LISSETT E Primary Care Unavailable TRISTA BONILLA Referring Unavailable BECKWITH, GURPREET Attending Unavailable DEBBIE ECHEVERRIA Attending Unavailable BECKWITH, GURPREET Admitting Unavailable BECKWITH, GURPREET Attending Unavailable BECKWITH, GURPREET Referring Unavailable VEGA LISSETT E Primary Care Unavailable VEGA LISSETT E Primary Care Unavailable BURAK PRAKASH Attending Unavailable BECKWITH, GURPREET Referring Unavailable ASHVIN VEGAIA E Primary Care Unavailable MD Lissett Vega Primary Care Provider MD Jes Vieira Attending Provider [phone] Allergies Allergy Classification Reported Allergen(s) Allergy Type Date of Onset Reaction(s) Facility (5 sources) patient allergy list reviewed by nurse or physicia Propensity to adverse reactions 7 Comment:Done [employer] Other (5 sources) Allergies Reconciled Propensity to adverse reactions Unknown [employer] Other (1 source) No Known Medication Allergies; Translations: [No Known Medication Allergies] Propensity to adverse reactions (disorder) [facility] Repository Medications Current Medications Medication Drug Class(es) [...] every 12 hrs for 7 days Active ibuprofen 800 mg oral tablet (1 source) Nonsteroidal Anti-inflammatory Drug Start: 2023 Ibuprofen Active 800 MG PO every 6 to 8 hours June 05, 2023 1:00am Inclisiran (1 source) Start: 2023 Inclisiran Active MG SUBCUT As Directed June 02, 2023 1:00am FreeTextSig: as directed Subcutaneous; Note: Source Status: Refill; Provider: Gary Fung iv contrast (will be provided with radiology [...] tablet 30 minute s prior to MRI Multivitamin preparation (1 source) Start: 06-05-2023 take 1 tablet by mouth once daily Multivitamin Active 1 TAB PO Daily June 05, 2023 1:00am Completed/Discontinued Medications Medication Drug Class(es) Dates Sig [...] Decadron 1 ml evolocumab 140 mg/ml auto-injector (3 sources) PCSK9 Inhibitor Start: End: inject 140 mg by subcutaneous injection every [...] Take 10 mg by mouth once daily. tamsulosin hydrochloride 0.4 mg oral capsule (4 sources) alpha-Adrenergic Ivan Start: 06-02-19 End: 06-05-19 24 take 1 capsule by mouth once daily Tamsulosin Discontinued 1 CAP PO Daily June 02, 2023 1:00am June 05, 2023 2:18pm FreeTextSi capsule Orally Once a day; Note: Source Status: Taking; Qty: 7 Capsule; Provider: Gary Fung take 1 capsule by mo [facility] every twenty-four hours Flomax 0.4 MG 1 capsule Orally Once a day for 7 days Active Problems Active Problems Problem Classification Problem Date Documented Date Episodic/Chronic Abdominal pain (2 sources) Left lower quadrant pain Episodic Cancer; other and unspecified primary (1 source) H/O Malignant melanoma 11-01-2023 Episodic Disorders of lipid metabolism (20 sources) [...] of meninges 02-17-2023 Episodic Nonmalignant breast conditions (6 sources) Disorder of breast; Translations: [Other specified disorders of breast] 06-02-2023 Episodic Other and unspecified benign neoplasm (20 sources) Benign neoplasm of meninges; Translations: [Benign neoplasm of meninges, unspecified] Onset: 01-27-2023 Chronic Other and unspecified benign neoplasm (2 sources) Neoplasm of meninges; Translations: [Benign neoplasm of meninges, unspecified] 10-19-2022 Chronic Other and unspecified benign neoplasm (1 source) Benign neoplasm of meninges, unspecified; Translations: [Benign neoplasm of meninges (HCC)] Onset: 01-27-2023 Chronic Other circulatory disease (6 sources) Elevated blood-pressure reading without diagnosis of hypertension; Translations: [Elevated blood-pressure reading, without diagnosis of hypertension] 06-02-2023 Episodic Other connective tissue disease (1 source) Plantar fascial fibromatosis Episodic Other connective tissue disease (6 sources) Spasm; Translations: [Other muscle spasm] 06-02-2023 Episodic Other connective tissue disease (5 sources) Pain in left foot; Translations: [Pain in left foot] Episodic Other connective tissue disease (1 source) Foot pain; Translations: [Pain in left foot] 06-02-2023 Episodic Other liver diseases (1 source) Lesion of liver; Translations: [Liver disease, unspecified] 06-16-2021 Chronic Other nervous system disorders (1 source) History of benign meningioma of brain; Translations: [Personal history of benign neoplasm of the brain] 06-05-2023 Episodic Other nervous system disorders (1 source) Personal history of benign neoplasm of the brain; Translations: [Personal history of benign neoplasm of the brain] 06-05-2023 Episodic Other non-traumatic joint disorders (5 sources) Disorder of bursa of shoulder region; Translations: [Unspecified disorders of bursae and tendons in shoulder region] Episodic Other non-traumatic joint disorders (5 sources) Shoulder joint pain; Translations: [Pain in unspecified shoulder] Episodic Other non-traumatic joint disorders (1 source) Shoulder pain; Translations: [Pain in unspecified shoulder] 06-02-2023 Episodic Other nutritional; endocrine; and metabolic disorders [...] conditions (not mental disorders or infectious disease) (17 sources) Encounter for screening for malignant neoplasm of cervix; Translations: [Encounter for screening mammogram for malignant neoplasm of breast] Onset: 09-08-2021 Episodic Residual codes; unclassified (5 sources) Acquired absence of genital organ; Translations: [Acquired absence of other genital organ(s)] Episodic Spondylosis; intervertebral disc disorders; other back problems (6 sources) Displacement of lumbar intervertebral disc without myelopathy; Translations: [Other intervertebral disc displacement, lumbar region] 06-02-2023 Chronic Sprains and strains (5 sources) Sprain [...] Test Name Value Interpretation Reference Range Facility [facility] 06-13-2023 [facility] Visit (SP) Office (HEMCA3) ----- BEN CRUZ ([id number]) 1975 F Date Time Provider Department 06/13/23 9:30 AM DEBBIE ECHEVERRIA HEMCA3 During your visit today, we recorded the following information about you: Temperature Pulse Respiration Blood pressure 97.6 degrees 79/minute 20/minute 142/92 Weight 95.8 kg Nicole Beal MD 06/14/2023 3:36 PM Addendum [facility] ESTABLISHED PATIENT VISIT PATIENT NAME: [...] no new issues and last visit with ios programmer was about 6 months ago. She denies [...] Lymph 1.00 - 4.00 k/uL 2.12 Abs Wilkinson <0.87 k/uL 0.72 Abs Eosin <0.46 k/uL [...] 6 months - recommend follow up with ios programmer Patient seen and discussed with Gastroenterology Oncology [...] beckwith co (more content not included)... Normal [facility] ECG 12 lead ECGon 06-05-2023 ECG 12 lead ECG [facility] [place] [address] Electrocardiograph Report Signed Patient: Ben Cruz MR#: [id number] 3 : 1975 Acct:[id number] Age/Sex: 47 / F ADM Date: 06/05/23 Loc: EKGCARDIO Room: Type: [facility] Attending Dr: Jes Vieira MD Ordering [...] previous ECGs available Confirmed by Demetri Shah ([id number]) on 06/07/2023 7:37:06 PM Referred By: Electronically Signed By:Demetri Shah Transcribed By: MUS Signed By Demetri Shah MD 06/07/231936 [facility] CNCOon 05-12-2023 CNCO Letter Text [facility] CNPNon 05-12-2023 CNPN Telephone (NSCAMN) ----- BEN CRUZ ([id number]) 1975 F Date Time Provider Department 05/12/23 GURPREET BECKWITH [facility] During your visit today, we recorded the following information about you: Marli Patino 05/12/2023 9:28 AM Signed Per Johann BIRD)-via email: This patient had GK in January and their follow up MRI and appointment was never scheduled. [facility] with [...] Encounter Status:Closed by MARLI PATINO on 05/12/23 [facility] Louise 05-11-2023 CNPN Telephone (NSCAMN) ----- BEN CRUZ ([id number]) 1975 F Date Time Provider Department 05/11/23 JOHANN HENRIQUEZ NSCAMN During your visit today, we recorded [...] Fully Assessed Reason for Visit: Patient Question [1477] Prescriptions as of 05/11/2023 - dexAMETHasone (DECADRON) [...] Status:Closed by JOHANN HENRIQUEZ on 05/11/23 Normal [facility] Outside Colonoscopyon 2022 Outside Colonoscopy [id number] Normal [facility] Reminderson 03-09-2023 Reminders - From: Veronica Jack LPN To: GSN - Clinical; Sent: 03/09/2023 13:42:54 EST Show up: 02/06/2033 07:00:00 EST Subject: colonoscopy recall Due Date/Time: 03/08/2033 07:00:00 EST Reminder/Recall Patient due for screening colonoscopy 03/08/2033. Normal [facility] Consent for Procedure/Surger yonatacha 02-21-2023 Consent for Procedure/Surgery [id number]#[id number] [facility] Facesheeton 02-20-2023 Facesheet [id number]#1.00TIFF [facility] Ambulatory Visit Summaryon 1 04-19-2022 Ambulatory Visit Summary BEN CRUZ :1975 Visit Date:02/17/2023 Ambulatory Visit Instructions Your Diagnosis Screening for malignant neoplasm of colon Your Care Team Attending Physician - MAGALI MCKINLEY, Debbie Morgan Primary Care Physician - GARY MCKINLEY, LISSETT This Is Your Medications List Contact prescribing [...] you for choosing us for your care. [facility] Telephone (NSCAMN) ----- BEN CRUZ ([id number]) 1975 F Date Time Provider Department 02/07/23 JOHANN HENRIQUEZ [facility] During your visit today, we recorded the [...] Encounter Status:Closed by JOHANN HENRIQUEZ on 02/07/23 [facility] Louise [facility]20[facility] ----- BEN CRUZ ([id number]) 1975 F Date Time Provider Department 02/06/23 JOHANN HENRIQUEZ [facility] During your visit today, we recorded the following information about you: Johann Henriquez RN 02/06/2023 1:20 PM Signed Calling Ben for post-GKRS follow-up. Unable to reach at this time. Left voicemail. Johann Henriquez RN 02/07/2023 1:19 PM Signed 2nd attempt to reach out, patient unavailable. Will send [employer] message with contact information to call if [...] meninges (HCC) [D32.9] 01/27/2023 Encounter Status:Closed by JOHNAN HENRIQUEZ on 02/07/23 [facility] CNOPon 01-27-2023 CNOP Operative Note (Enc) (NSCAMN) ----- Encounter Status:Closed by GURPREET BECKWITH on 01/27/23 Normal [facility] CNOP Operative Note (Enc) (NSCAMN) ----- Encounter Status:Closed by GURPREET BECKWITH on 01/27/23 Normal [facility] CNOVon 01-27-2023 CNOV Office Visit (NSCAMN ) ----- BEN CRUZ ([id number]) 1975 F Date Time Provider Department 01/27/23 [...] 7.1 AL (more content not included)... Normal [facility] CNOV Office Visit (NOGKCA ) ----- BEN CRUZ ([id number]) 1975 F Date Time Provider Department 01/27/23 8:30 AM MASK PLACEMENT NEUS CA [facility] During your visit today, we [...] Patient's Age: 47 Menstruation Status: Hysterectomy 2019 [facility] [place] [place] Results: N/A test not performed QC: Yes, [...] Segura Kaitlin, RN 01/27/2023 8:35 AM Addendum [facility] Discharge Instructions As with [...] a physician or hospital other than the [facility] with any problem related to the Gamma [...] may your physician, Dr. Virgil Beckwith at [phone] Monday through Monday 8:00 am to 5:00 pm, or call the Gamma Knife nurse Monday through Monday 8:00 am to 4:00 pm at [phone]. In the evening or on weekends, call [phone] or toll-free [phone] and ask the transit mixer operator to page your neurosurgeon's resident senior qa automation engineer. Referring Provider: GURPREET BECKWITH [[id number]] Allergies As [...] [D32.9] 01/27/2023 Other instructions from your clinician: [facility] Discharge Instructions As with any surgery there are risks and potential side effects. Th (more content not included)... Normal [facility] CT BRAIN WO IVCONon 01-28-[address] [...] were required COMPARISON: Concurrent brain MRI RESULT: Armhole Presser (topogram) images: No additional findings. Post-operative change: [...] OF EXTRA-AXIAL ENHANCING TISSUE SEEN ON MRI Computer Network Specialist: [facility] Transcribe Date/Time: Jan 27 2023 8:21A Dictated by : ESTUARDO WHALEY MD This examination was interpreted and the report reviewed and electronically signed by: ESTUARDO WHALEY MD on Jan 27 2023 8:23AM EST [id number] Normal [facility] MRI BRAIN LOCAL W IVCONon MRI [...] FRONTAL LOBE, UNCHANGED GOING BACK TO 06/01/2021 Computer Network Specialist: TORI Transcribe Date/Time: Jan 27 2023 8:08A Dictated by : ESTUARDO WHALEY MD This examination was interpreted and the report reviewed and electronically signed by: ESTUARDO WHALEY MD on Jan 27 2023 8:20AM EST [id number] Normal [facility] MRI BRAIN LOCALIZATION W IVC ONon 01-27-2023 [facility] Physician Referralon 023 Physician Referral [id number] Normal [facility] Physician Referralon 023 Physician Referral [id number] Normal [facility] CNOVSPon 12-22-2022 CNOVSP Visit (SP) Office (HEMCA3) ----- BEN CRUZ ([id number]) 1975 F Date Time Provider Department 12/22/22 [...] were negative. Declined an adjuvant trial in [place]. Baseline imaging today is negative CC: Melanoma [...] No Does patient want to see a Diamond Wheel Edger? No (yes to any of above refer [...] for Encounter Date Provider Department Center 12/22/2022 [id number] ECHEVERRIA [facility]3 [place] [facility] Prescriptions as [...] No Does patient want to see a Diamond Wheel Edger? No (yes to any of above refer patient to schedulers for dietitian appointment) ) Does patient have any new or increased numbness or tingling of extremities? No Is patient interested in fertility information? No Does patient need any prescription refills? No Does patient have an advanced directive in place? No, Patient refused referral to Social Work or [facility] 11-15-2022 [facility] Telephone (NSCAMN) ----- BEN CRUZ ([id number]) 1975 F Date Time Provider Department 11/15/22 BETZY HEARD [facility] During your visit today, we recorded the following information about you: Betzy Heard RN 11/15/2022 2:04 PM Signed Calling Ben to follow up on [employer] message about scheduling gamma knife for 01/27/2023 No answer, left message stating that I'll go ahead and place the GK orders. Reminded to disregard ANY [facility] times [facility], any automated text reminders or automated phone calls for 01/27/23 She will receive a call from the GK nurse or radiation therapist the day before with her arrival time. If she has any questions, I left office phone # for call back or she can send a [employer] message. I will send out a GK folder with additional information related to Mask Based Gamma Knife Radiosurgery Betzy Kompan RN, BSN 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 [facility] Allergies As of Date: 11/15/2022 (No Known Allergies) Date Reviewed: 10/19/2022 Reviewed by: Trista Bonilla APRN.GREENHOUSE FLORIST - Fully Assessed Reason for Visit: 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 - Other [3602] Cmt: Schedule gamma knife 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 Prescriptions as of 11/15/2022 - meloxicam (MOBIC) 15 mg tablet - inclisiran (LEQVIO) 284 mg/1.5 mL injection - omeprazole (PRILOSEC) 20 mg capsule Take 20 mg by mouth once daily. Problem List As Of Date: 11/15/2022 (None) Encounter Status:Closed by BETZY HEARD on [facility]/15/22 [facility] (NSCAMN) ----- BEN CRUZ ([id number]) 1975 F Date Time Provider Department 10/20/22 BETZY HEARD [facility] During your visit today, we recorded the following information about you: Betzy Heard RN 10/20/2022 11:56 AM Signed Time Frame: As soon as can be scheduled - can be virtual or in clinic Orders: n/a Provider: Tang Referring: Pelon Diagnosis: meningioma Allergies As of Date: 10/20/2022 (No Known Allergies) Date Reviewed: 10/19/2022 Reviewed by: Trista Bonilla APRN.GREENHOUSE FLORIST - Fully Assessed Reason for Visit: GIN - new pt consult with Dr. Beckwith [Other] Prescriptions as of 11/10/2022 - meloxicam (MOBIC) 15 mg tablet - inclisiran (LEQVIO) 284 mg/1.5 mL injection - omeprazole (PRILOSEC) 20 mg capsule Take 20 mg by mouth once daily. Problem List As Of Date: 10/20/2022 (None) Encounter Status:Closed by AMIEBETZY RODRIGUEZ on 11/10/22 Normal [facility] MRI BRAIN WO/W IVCONon 10-17 MRI BRAIN WO/W IVCON * * *Final Report* * * DATE OF EXAM: Oct 17 2022 11:20AM [facility] 0295 - MRI BRAIN WO/W IVCON [...] with air-fluid level suggestive of acute/active sinusitis. Computer Network Specialist: TORI Transcribe Date/Time: Oct 17 2022 11:35A Dictated by : CHUCKY BRAY MD This examination was interpreted and the report reviewed and electronically signed by: CHUCKY BRAY MD on Oct 17 2022 11:45AM EST [id number] Normal [facility] Complete Blood Count Auto Di ffon 09-12-2022 Basophils (Bld) [#/Vol] 0.1 10*3/uL Normal 0.0-0.2 [facility] Comment on above: Result Comment: PERF ORMED BY: [place] [address] PATHOLOGIST PIN SETTER ARNULFO STYLES M.D. Performed By: #### C BC #### [address] Basophils/100 WBC (Bld) 0.7 % Normal . [facility] Comment on above: Performed By: #### C BC #### [address] Eosinophils (Bld) [#/Vol] 0.2 10*3/uL Normal 0.0-0.45 [facility] Comment on above: Performed By: #### C BC #### [address] Eosinophils/100 WBC (Bld) 2.7 % Normal . [facility] Comment on above: Performed By: #### C BC #### [address] Erythrocyte distribution width (RBC) [Ratio] 12.9 % Normal 11.9-15.3 [facility] Comment on above: Performed By: #### C BC #### [address] Hematocrit (Bld) [Volume fraction] 41.8 % Normal 34.0-46.4 [facility] Comment on above: Performed By: #### C BC #### [address] Hemoglobin (Bld) [Mass/Vol] 14.3 g/dL Normal 11.8-15.4 [facility] Comment on above: Performed By: #### C BC #### [place] [id number] [place] Lymphocytes (Bld) [#/Vol] 2.0 10*3/uL Normal 1.00-4.8 [facility] Comment on above: Performed By: #### C BC #### [address] Lymphocytes/100 WBC (Bld) 25.3 % Normal . [facility] Comment on above: Performed By: #### C BC #### [address] MCH (RBC) [Entitic mass] 29.8 pg Normal 24.7-34.3 [facility] Comment on above: Performed By: #### C BC #### [address] MCV (RBC) [Entitic vol] 87.2 fL Normal 80-100 [facility] Comment on above: Performed By: #### C BC #### [address] Mean Corpuscular HGB Conc 34.2 g/dL Normal 32.0-35.0 [facility] Comment on above: Performed By: #### C BC #### [address] Monocytes (Bld) [#/Vol] 0.7 10*3/uL Normal 0.0-0.8 [facility] Comment on above: Performed By: #### C BC #### [address] Monocytes/100 WBC (Bld) 9.1 % Normal . [facility] Comment on above: Performed By: #### C BC #### [address] Neutrophils (Bld) [#/Vol] 4.8 10*3/uL Normal 1.8-7.7 [facility] Comment on above: Performed By: #### C BC #### [address] Neutrophils/100 WBC (Bld) 62.2 % Normal . [facility] Comment on above: Performed By: #### C BC #### [facility] [address] NRBC% 0.4 /100{WBC} Normal 0-0.5 [facility] Comment on above: Performed By: #### C BC #### [facility] [address] Platelet mean volume (Bld) [Entitic vol] 7.5 fL Normal 6.3-10.7 [facility] Comment on above: Performed By: #### C BC #### [facility] [address] Platelets (Bld) [#/Vol] 225 10*3/uL Normal 150-450 [facility] Comment on above: Performed By: #### C BC #### [address] RBC (Bld) [#/Vol] 4.80 10*6/uL Normal 3.60-5.00 [facility] Comment on above: Performed By: #### C BC #### [facility] [address] WBC (Bld) [#/Vol] 7.7 10*3/uL Normal 3.8-11.6 [facility] Comment on above: Performed By: #### C BC #### [place] [address] [place] XR chest 2V*on 09-12-2022 XR chest 2V* [facility] [place] [address] [place] [address] XRay Report Signed Patient: Ben Cruz MR#: [id number] 3 : 1975 Acct:[id number] Age/Sex: 47 / F ADM Date: 09/12/22 Loc: [place] Room: Type: [facility] Attending Dr: Taz Rossi DPM Copies to: [...] Florentino Woods M.D.09/12/2022 4:53 PM Dictation Location: [place] [address] Transcribed By: [facility] 09/12/221652 Dictated By: Florentino Woods II, MD 09/12/221651 Signed By: 09/12/221652 [facility] Louise 08-31-2022 [place] Telephone (RADRMN) ----- BEN CRUZ ([id number]) 1975 F Date Time Provider Department 08/31/22 LUIS LICONA During your visit today, we recorded the following information about you: Adriana Brown 08/31/2022 4:12 PM Signed Patient called in to ask for a prescription of Atavan sent to her local [facility] prior to her scheduled MRI on 09/05. Prescription should be sent to the [facility] in [place] [facility]. [facility] [phone] [place], [place] [id number] Trista Bonilla APRN.GREENHOUSE FLORIST 08/31/2022 4:35 PM Signed Ativan sent to preferred pharmacy per patient request prior to MRI. PDMP website checked and validated. All prescriptions have been APPROPRIATELY filled. No suspicious activity was identified. 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 No (yes to any of above refer [...] were negative. Declined an adjuvant trial in [place]. Baseline imaging today is negative CC: Melanoma [...] with more than 50% of the total bqtm-tv-sydo time of the visit in counseling / coordination of care. Debbie Echeverria MD Referring Provider: DEBBIE ECHEVERRIA [[id number]] Allergies As of Date: 06/21/2022 (No Known [...] for Encounter Date Provider Department Center 06/21/2022 [id number] ECHEVERRIA HEM[facility]3 [place] [facility] Prescriptions as [...] No Does patient want to see a Diamond Wheel Edger? No (yes to any of above refer [...] Status:Closed by DEBBIE ECHEVERRIA on 06/21/22 Normal [facility] MRI BRAIN WO/W IVCONon 02-23 [facility] CBC AUTO DIFFon 11-18-2021 BASO # 0.0 103/ul Normal 0.0-0.1 [facility] Comment on above: Performed By: #### H FPFCBC #### [facility] [address] [place] [address] Dr. Arcenio Billy Basophils/100 WBC (Bld) 0.4 % Normal 0.2-2.0 [facility] Comment on above: Performed By: #### H FPFCBC #### [facility] [address] [place] [address] Dr. Arcenio Billy EO # 0.2 103/ul Normal 0.0-0.7 [facility] Comment on above: Performed By: #### H FPFCBC #### [facility] [address] [place] [address] Dr. Arcenio Billy Eosinophils/100 WBC (Bld) 3.0 % Normal 0.9-7.0 [facility] Comment on above: Performed By: #### H FPFCBC #### [facility] [address] [place] [address] Dr. Arcenio Billy Erythrocyte distribution width (RBC) [Ratio] 12.1 % Normal 11.0-15.0 [facility] Comment on above: Performed By: #### H FPFCBC #### [facility] [address] [place] [address] Dr. Arcenio Billy Hematocrit (Bld) [Volume fraction] 43.1 % Normal 36.0-48.0 [facility] Comment on above: Performed By: #### H FPFCBC #### [facility] [address] [place] [address] Dr. Arcenio Billy Hemoglobin (Bld) [Mass/Vol] 14.1 g/dL Normal 12.0-16.0 [facility] Comment on above: Performed By: #### H FPFCBC #### [facility] [address] [place] [address] Dr. Arcenio Billy IG # 0.01 10e3/ul Normal 0.00-0.03 [facility] Comment on above: Performed By: #### H FPFCBC #### [facility] [address] [place] [address] Dr. Arcenio Billy IG % 0.2 % Normal 0.0-0.5 [facility] Comment on above: Performed By: #### H FPFCBC #### [facility] [address] [place] [address] Dr. Arcenio Billy LYMPH # 1.9 103/ul Normal 1.2-3.8 [facility] Comment on above: Performed By: #### H FPFCBC #### [facility] [address] [place] [address] Dr. Arcenio Billy Lymphocytes/100 WBC (Bld) 35.7 % Normal 20.5-60.0 [facility] Comment on above: Performed By: #### H FPFCBC #### [facility] [address] [address] [address] Arcenio Billy MCH (RBC) [Entitic mass] 28.8 pg Normal 26.7-34.0 [facility] Comment on above: Performed By: #### H FPFCBC #### [facility] [address] [place] [address] Dr. Arcenio Billy MCHC (RBC) [Mass/Vol] 32.7 g/dL Normal 29.9-35.2 [facility] Comment on above: Performed By: #### H FPFCBC #### [facility] [address] [place] [address] Dr. Arcenio Billy MCV (RBC) [Entitic vol] 88.1 fL Normal 81.0-99.0 [facility] Comment on above: Performed By: #### H FPFCBC #### [facility] [address] [place] [address] Dr. Arcenio Billy MONO # 0.5 103/ul Normal 0.3-0.8 [facility] Comment on above: Performed By: #### H FPFCBC #### [facility] [address] [place] [address] Dr. Arcenio Billy Monocytes/100 WBC (Bld) 9.9 % Normal 1.7-12.0 [facility] Comment on above: Performed By: #### H FPFCBC #### [facility] [address] [place] [address] Dr. Arcenio Billy NEUT # 2.7 103/ul Normal 1.4-6.5 [facility] Comment on above: Performed By: #### H FPFCBC #### [facility] [address] [place] [address] Dr. Arcenio Billy Neutrophils/100 WBC (Bld) 50.8 % Normal 43.0-75.0 [facility] Comment on above: Performed By: #### H FPFCBC #### [facility] [address] [place] [address] Dr. Arcenio Billy Platelet mean volume (Bld) [Entitic vol] 8.9 fL Critically low 9.5-13.5 [facility] Comment on above: Performed By: #### H FPFCBC #### [facility] [address] [place] [address] Dr. Arcenio Billy PLT 271 103/ul Normal 150-450 [facility] Comment on above: Performed By: #### H FPFCBC #### [facility] [address] [place] [address] Dr. Arcenio Billy RBC 4.89 106/ul Normal 4.20-5.40 [facility] Comment on above: Performed By: #### H FPFCBC #### [facility] [address] [place] [address] Dr. Arcenio Billy WBC 5.3 103/ul Normal 4.0-11.0 [facility] Comment on above: Performed By: #### H FPFCBC #### [facility] [address] [place] [address] Dr. Arcenio [facility] 022 Albumin [Mass/Vol] 3.7 g/dL Normal 3.4-5.0 [facility] Comment on above: Performed By: #### H FPF #### [facility] [address] [place] [address] Dr. Arcenio Billy Albumin/Globulin [Mass ratio] 1.1 {ratio} Normal [facility] Comment on above: Performed By: #### H FPF #### [facility] [address] [place] [address] Dr. Arcenio Billy ALP [Catalytic activity/Vol] 60 U/L Normal 46-116 [facility] Comment on above: Performed By: #### H FPF #### [facility] [address] [place] [address] Dr. Arcenio Billy ALT [Catalytic activity/Vol] 47 U/L Normal 14-59 [facility] Comment on above: Performed By: #### H FPF #### [facility] [address] [place] [address] Dr. Arcenio Billy AST [Catalytic activity/Vol] 25 U/L Normal 15-37 [facility] Comment on above: Performed By: #### H FPF #### [facility] [address] [address] [address] Arcenio Billy Bilirubin [Mass/Vol] 0.5 mg/dL Normal 0.2-1.0 [facility] Comment on above: Performed By: #### H FPF #### [facility] [address] [address] [address] Arcenio Billy Calcium [Mass/Vol] 8.8 mg/dL Normal 8.5-10.1 [facility] Comment on above: Performed By: #### H FPF #### [facility] [address] [address] [address] Arcenio Billy Chloride [Moles/Vol] 103 mmol/L Normal 98-107 [facility] Comment on above: Performed By: #### H FPF #### [facility] [address] [place] [address] Dr. Arcenio Billy CHOL-HDL RATIO NORM SEE BELOW Normal [facility] Comment on above: Result Comment: 3.3 - 4.4 LOW RISK 4.4 - 7.1 AVERAGE RISK 7.1 - 11.0 MODERATE RISK >11.0 HIGH RISK Performed By: #### H FPF #### [facility] [address] [place] [address] Dr. Arcenio Billy Cholesterol [Mass/Vol] 352 mg/dL Critically high <=200 [facility] Comment on above: Performed By: #### H FPF #### [facility] [address] [address] [address] Arcenio Billy Cholesterol in HDL [Mass/Vol] 34 mg/dL Critically low 40-60 [facility] Comment on above: Performed By: #### H FPF #### [facility] [address] [place] [address] Dr. Arcenio Billy Cholesterol in LDL [Mass/Vol] 274.2 mg/dL Normal [facility] Comment on above: Performed By: #### H FPF #### [facility] [address] [address] [address] Arcenio Billy Cholesterol.total/ Cholesterol in HDL [Mass ratio] 10.4 {ratio} Normal [facility] Comment on above: Performed By: #### H FPF #### [facility] [address] [address] [address] Arcenio Billy CO2 [Moles/Vol] 25.7 mmol/L Normal 21.0-32.0 [facility] Comment on above: Performed By: #### H FPF #### [facility] [address] [place] [address] Dr. Arcenio Billy Creatinine [Mass/Vol] 0.91 mg/dL Normal 0.55-1.02 [facility] Comment on above: Performed By: #### H FPF #### [facility] [address] [place] [address] Dr. Arcenio Billy Globulin (S) [Mass/Vol] 3.4 g/dL Normal [facility] Comment on above: Performed By: #### H FPF #### [facility] [address] [place] [address] Dr. Arcenio Billy Glucose [Mass/Vol] 91 mg/dL Normal 74-106 [facility] Comment on above: Performed By: #### H FPF #### [facility] [address] [place] [address] Dr. Arcenio Billy HDL NORMAL > or = 60 mg/dl - LO W CARDIOVASCULAR RISK <40 mg/dl - HIGH CARDIOVASCULAR RISK Normal [facility] Comment on above: Performed By: #### H FPF #### [facility] [address] [place] [address] Dr. Arcneio Billy LDL CALC NORMAL SEE BELOW Normal [facility] Comment on above: Result Comment: <100 mg/dl OPTIMAL 100 - 129 mg/dl NEAR OR ABOVE OPTIMAL 130 - 159 mg/dl BORDERLINE HIGH 160 - 189 mg/dl HIGH >190 mg/dl VERY HIGH Performed By: #### H FPF #### [facility] [address] [place] [address] Dr. Arcenio Billy Potassium [Moles/Vol] 4.1 mmol/L Normal 3.5-5.1 [facility] Comment on above: Performed By: #### H FPF #### [facility] [address] [address] [address] Arcenio Billy Protein [Mass/Vol] 7.1 g/dL Normal 6.4-8.2 [facility] Comment on above: Performed By: #### H FPF #### [facility] [address] [address] [address] Arcenio Billy Sodium [Moles/Vol] 139 mmol/L Normal 136-145 [facility] Comment on above: Performed By: #### H FPF #### [facility] [address] [address] [address] Arcenio Billy Triglyceride [Mass/Vol] 219 mg/dL Critically high <=150 [facility] Comment on above: Performed By: #### H FPF #### [facility] [address] [address] [address] Arcenio Billy TSH 1.717 uIU/mL Normal 0.358-3.740 [facility] Comment on above: Performed By: #### H FPF #### [facility] [address] [address] [address] Arcenio Billy Urea nitrogen [Mass/Vol] 11.0 mg/dL Normal 7.0-18.0 [facility] Comment on above: Performed By: #### H FPF #### [facility] [address] [address] [address] Arcenio Billy Urea nitrogen/Creatinin e [Mass ratio] 12.1 mg/mg Normal [facility] Comment on above: Performed By: #### H FPF #### [facility] [address] [address] [address] Arcenio Billy VLDL CALC 43.8 mg/dL Normal [facility] Comment on above: Performed By: #### H FPF #### [facility] [address] [address] [address] Arcenio Billy PAP ACOG PANEL 2: 30 to 65on 09-19-2021 . . Normal [facility] Comment on above: Result Comment: Perf ormed at: WB Performed By: #### [id number] #### [facility] [address] [place] [address] Dr. Arcenio Billy Age Gdln ACOG Testing 30-65 Normal [facility] Comment on above: Performed By: #### [id number] #### [facility] [address] [place] [address] Dr. Arcenio Billy DIAGNOSIS: Comment Normal [facility] Comment on above: Result Comment: NEGA TIVE FOR INTRAEPITHELIAL LESION OR MALIGNANCY. FUNGAL ORGANISMS MORPHOLOGICALLY CONSISTENT WITH MOSES SPECIES ARE PRESENT. Performed at: WB Performed By: #### [id number] #### [facility] [address] [place] [address] Dr. Arcenio Billy HPV Aptima Negative Normal Negative [facility] Comment on above: Result Comment: This nucleic acid amplification test detects fourteen high-risk HPV types (16,18,31,33,35,39,45,51,52,56,58,59,66,68) without differentiation. Performed at: =G Performed By: #### [id number] #### [facility] [address] [place] [address] Dr. Arcenio Billy Methodology: Comment Normal [facility] Comment on above: Result Comment: This liquid based ThinPrep(R) pap test was screened with the use of an image guided system. Performed at: WB Performed By: #### [id number] #### [facility] [address] [place] [address] Dr. Arcenio Billy Note: Comment Normal [facility] Comment on above: Result Comment: The Pap smear is a screening test designed to aid in the detection of premalignant and malignant conditions of the uterine cervix. It is not a diagnostic procedure and should not be used as the sole means of detecting cervical cancer. Both false-positive and false-negative reports do occur. . Performed at: WB Performed By: #### [id number] #### [facility] [address] [place] [address] Dr. Arcenio Billy Performed by: Comment Normal [facility] Comment on above: Result Comment: Bronson Cordero Drug Abuse Counselor (ASCP) Performed at: WB Performed By: #### [id number] #### [facility] [address] [place], [place] [address] Dr. Arcenio Billy Specimen adequacy: Comment Normal [facility] Comment on above: Result Comment: Sati sfactory for evaluation. No endocervical component is identified. Performed at: WB Performed By: #### [id number] #### [facility] [address] [place], [place] [address] Dr. Arcenio Billy MG MAMM SCREEN 3D JULIO CÉSAR CADon 09-08-2021 MG MAMM SCREEN 3D JULIO CÉSAR CAD Patient: BEN CRUZ Exam Date: 09/08/2021 : 1975 Gender:F Ordering : DR CHELITA VILLANUEVA . Admission #: [id number] Family : Order #: [id number] CLICK HERE TO VIEW EXAM RADIOLOGY REPORT [...] at age 71. LOCATION: [facility] BREAST COMPOSITION: Scattered areas fibroglandular density. FINDINGS: [...] 09/08/2021 at 11:41 Normal [facility] MRI BRAIN WO/W IVCONon 08-23 [facility] MRI LIVER WO/W IVCONon 06-16 [facility] BRAIN WO/W IVCONon 06-01 [facility] Vital Signs Date Time Vital Sign Value Performing Clinician Facility 07-03-2023 10:59-0400 Body height 162.56 cm MD Lissett Vega Work Phone: [facility] 06-13-2023 09:34-0400 Body temperature 97.59 [degF] Debbie Echeverria MD Work Phone: [facility] 06-13-2023 09:34-0400 Body weight 95.8 kg Debbie Echeverria MD Work Phone: [facility] 06-13-2023 09:34-0400 Diastolic blood pressure 92 mm[Hg] Debbie Echeverria MD Work Phone: [facility] 06-13-2023 09:34-0400 Heart rate 79 /min Debbie Echeverria MD Work Phone: [facility] 06-13-2023 09:34-0400 Respiratory rate 20 /min Debbie Echeverria MD Work Phone: [facility] 06-13-2023 09:34-0400 SaO2% (BldA) [Mass fraction] 96 % Debbie Echeverria MD Work Phone: [facility] 06-13-2023 09:34-0400 Systolic blood pressure 142 mm[Hg] Debbie Echeverria MD Work Phone: [facility] 06-05-2023 13:23-0500 Body height 162.56 cm MD Lissett Vega Work Phone: [facility] 06-05-2023 13:23-0500 Body mass index (BMI) [Ratio] 35.6 kg/m2 MD Lissett Vega Work Phone: [facility] 06-05-2023 13:23-0500 Body weight 94.34 kg MD Lissett Vega Work Phone: [facility] 06-05-2023 13:23-0500 Diastolic blood pressure 84 mm[Hg] MD Lissett Vega Work Phone: [facility] 06-05-2023 13:23-0500 Heart rate 88 /min MD Lissett Vega Work Phone: [facility] 06-05-2023 13:23-0500 Respiratory rate 18 /min MD Lissett Vega Work Phone: [facility] 06-05-2023 13:23-0500 SaO2% (BldA) [Mass fraction] 95 % MD Lissett Vega Work Phone: [facility] 06-05-2023 13:23-0500 Systolic blood pressure 122 mm[Hg] MD Lissett Vega Work Phone: [facility] 03-16-2023 13:45-0500 Body height 162.56 cm Lissett Vega Other [facility] Other 03-16-2023 13:45-0500 Body mass index (BMI) [Ratio] 34.5 kg/m2 Lissett Vega Other [facility] Other 03-16-2023 13:45-0500 Body temperature 99.1 [degF] Lissett Vega Other [facility] Other 03-16-2023 13:45-0500 Body weight 91.17 kg Lissett Vega Other [facility] Other 03-16-2023 13:45-0500 Diastolic blood pressure 88 mm[Hg] Lissett Vega Other [facility] Other 03-16-2023 13:45-0500 SaO2% (BldA) [Mass fraction] 98 % Lissett Vega Other [facility] Other 03-16-2023 13:45-0500 Systolic blood pressure 128 mm[Hg] Lissett Vega Other [facility] Other 02-17-2023 14:47-0500 Blood Pressure Location Debbie DE LOS SANTOS [facility] 02-17-2023 14:47-0500 Diastolic blood pressure 84 mm[Hg] Debbie DE LOS SANTOS [facility] 02-17-2023 14:47-0500 Heart rate 76 /min Debbie HERNANDEZL [facility] 02-17-2023 14:47-0500 Respiratory rate 16 /min Debbie HERNANDEZL [facility] 02-17-2023 14:47-0500 Systolic blood pressure 128 mm[Hg] Debbie HERNANDEZL [facility] 09-21-2022 11:30-0400 Body height 162.56 cm Lissett Vega Other [facility] Other 09-21-2022 11:30-0400 Body mass index (BMI) [Ratio] 36.56 kg/m2 Lissett Vega Other [facility] Other 09-21-2022 11:30-0400 Body weight 96.62 kg Lissett Vega Other [facility] Other 09-21-2022 11:30-0400 Diastolic blood pressure 84 mm[Hg] Lissett Vega Other [facility] Other 09-21-2022 11:30-0400 Systolic blood pressure 137 mm[Hg] Lissett Vega Other [facility] Other 06-21-2022 10:32-0400 Body height 165 cm Debbie Echeverria MD Work Phone: [facility] 06-21-2022 10:32-0400 Body temperature 96.8 [degF] Debibe Echeverria MD Work Phone: [facility] 06-21-2022 10:32-0400 Body weight 98.79 kg Debbie Echeverria MD Work Phone: [facility] 06-21-2022 10:32-0400 Diastolic blood pressure 82 mm[Hg] Debbie Echeverria MD Work Phone: [facility] 06-21-2022 10:32-0400 Heart rate 74 /min Debbie Echeverria MD Work Phone: [facility] 06-21-2022 10:32-0400 Respiratory rate 18 /min Debbie Echeverria MD Work Phone: [facility] 06-21-2022 10:32-0400 SaO2% (BldA) [Mass fraction] 96 % Debbie Echeverria MD Work Phone: [facility] 06-21-2022 10:32-0400 Systolic blood pressure 139 mm[Hg] Debbie Echeverria MD Work Phone: [facility] 12-21-2021 13:24-0400 Body temperature 98.6 [degF] Debbie Echeverria MD Work Phone: [facility] 12-21-2021 13:24-0400 Body weight 102.15 kg Debbie Echeverria MD Work Phone: [facility] 12-21-2021 13:24-0400 Diastolic blood pressure 82 mm[Hg] Debbie Echeverria MD Work Phone: [facility] 12-21-2021 13:24-0400 Heart rate 79 /min Debbie Echeverria MD Work Phone: [facility] 12-21-2021 13:24-0400 Respiratory rate 20 /min Debbie Echeverria MD Work Phone: [facility] 12-21-2021 13:24-0400 SaO2% (BldA) [Mass fraction] 100 % Debbie Echeverria MD Work Phone: [facility] 12-21-2021 13:24-0400 Systolic blood pressure 145 mm[Hg] Debbie Echeverria MD Work Phone: [facility] Encounters Encounter Date Encounter Type Care Provider Facility Start: 07-03-2023 End: 07-03-2023 ambulatory MD Lissett Vega Work Phone: [facility] Work Phone: Start: 07-03-2023 End: 07-03-2023 Patient encounter procedure MD Lissett Vega Work Phone: [facility] Work Phone: Start: 06-13-2023 End: 06-13-2023 ambulatory DEBBIE ECHEVERRIA Facility:[facility] Start: 06-13-2023 End: 06-13-2023 ambulatory Debbie Echeverria MD Work Phone: Hematology/Oncology Comment on above: Malignant melanoma o f torso excluding breast (HCC) (Primary Dx) Start: 06-13-2023 End: 06-13-2023 Patient encounter procedure Debbie Echeverria MD Work Phone: [facility] Start: 06-05-2023 End: 06-05-2023 ambulatory Jes Vieira Facility:[facility] Start: 06-05-2023 End: 06-05-2023 Patient encounter procedure MD Lissett Vega Work Phone: [facility] Work Phone: Start: 06-05-2023 End: 06-05-2023 ambulatory VETO KIP Not Available Start: 06-02-2023 Patient encounter status MD Cristi Vega Work Phone: [facility] Start: 05-12-2023 Telephone encounter Gurpreet malin DO, PhD Work Phone: [facility] Comment on above: Appointment (Ce sheth) Start: 03-23-2023 End: 03-23-2023 ambulatory Lissett Vega Other [facility] Other Start: 03-23-2023 Telephone encounter Lissett Vega [facility] Start: 03-16-2023 End: 03-16-2023 ambulatory Lissett Vega Other [facility] Other Start: 03-16-2023 Office outpatient vi sit 15 minutes Lissett Vega [facility] Start: 03-08-2023 End: 03-09-2023 ambulatory Debbie HERNANDEZL Facility:[id number] Start: 02-17-2023 End: 02-18-2023 ambulatory Debbie R MARYL Facility:[facility] Start: 02-17-2023 End: 02-17-2023 Patient encounter procedure Debbie R NILL General Surgery [facility] Start: 02-07-2023 Telephone encounter Johann Henriquez RN [facility] Start: 02-06-2023 Telephone encounter Johann Henriquez RN [facility] Comment on above: Gamma Knife Follow-u p Start: 01-27-2023 End: 01-28-2023 Orders Only Gurpreet Beckwith DO, PhD Work Phone: Neurosurgery Comment on above: Benign neoplasm of m eninges (HCC) (Primary Dx) Benign neoplasm of m eninges (HCC) [D32.9] Start: 01-27-2023 Patient encounter procedure Burak Prakash MD Work Phone: [facility] Start: 01-27-2023 Radiation Oncology Note Susi Prakash MD Work Phone: [facility] Comment on above: Procedure Treatment Planning Start: 01-24-2023 ambulatory Debbie HERNANDEZL Facility:[facility] Start: 01-23-2023 End: 01-23-2023 ambulatory Lissett Vega Other [facility] Other Start: 01-23-2023 Telephone encounter Lissett Vega [facility] Start: 12-22-2022 End: 12-22-2022 ambulatory DEBBIE ECHEVERRIA Facility:[facility] Start: 11-15-2022 Telephone encounter Betzy liao RN Work Phone: [facility] 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/) Start: 11-04-2022 End: 11-04-2022 ambulatory Gurpreet Beckwith DO, PhD Work Phone: [facility] Comment on above: Benign neoplasm of m eninges (HCC) (Primary Dx) Start: 11-04-2022 End: 11-04-2022 Telemedicine consultation with patient Gurpreet Beckwith DO, PhD Work Phone: [facility] Start: 10-31-2022 End: 10-31-2022 ambulatory Lissett Gary Other [facility] Other Start: 10-31-2022 Telephone encounter Lissett Vega [facility] Start: 10-19-2022 End: 10-19-2022 ambulatory DEBBIE ECHEVERRIA Facility:[facility] Start: 10-19-2022 End: 10-19-2022 ambulatory Luis Licona MD Work Phone: Radiation Oncology Comment on above: Meningioma (HCC) (Pr imary Dx) Start: 10-19-2022 End: 10-19-2022 Telemedicine consultation with patient Luis Licona MD Work Phone: [facility] Start: 10-18-2022 End: 10-18-2022 ambulatory DEBBIE ECHEVERRIA Facility:[facility] Start: 10-18-2022 End: 10-18-2022 ambulatory Trista Bonilla APRN.GREENHOUSE FLORIST Work Phone: Radiation Oncology Comment on above: Meningioma (HCC) (Pr imary Dx) Start: 10-18-2022 End: 10-18-2022 Telemedicine consultation with patient Trista Bonilla APRN.GREENHOUSE FLORIST Work Phone: [facility] Start: 10-17-2022 End: 10-17-2022 ambulatory TRISTA BONILLA Facility:[facility] Start: 10-17-2022 End: 10-17-2022 Subsequent hospital visit by physician [facility] (Lg Bore/1.5t) Radiology MRI Comment on above: Benign neoplasm of m eninges (HCC) [D32.9] Start: 09-23-2022 End: 09-23-2022 ambulatory Lissett Vega Other [employer] Other Start: 09-23-2022 Telephone encounter Lissett Gary [facility] Start: 09-21-2022 End: 09-21-2022 ambulatory Lissett Vega Other [employer] Other Start: 09-21-2022 Encounter for other preprocedural examination Lissett Vega [facility] Start: 09-21-2022 Office outpatient vi sit 25 minutes Lissett Vega [facility] Start: 09-12-2022 End: 09-12-2022 ambulatory Lissett Vega Facility:[facility] Start: 08-31-2022 Telephone encounter Luis osborn MD Work Phone: Radiation Oncology Comment on above: 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 - [employer] Start: 06-21-2022 End: 06-21-2022 ambulatory DEBBIE ECHEVERRIA Facility:[facility] Start: 06-21-2022 End: 06-21-2022 ambulatory Debbie Echeverria MD Work Phone: Hematology/Oncology Comment on above: Malignant melanoma o f torso excluding breast (HCC) (Primary Dx) Start: 06-21-2022 End: 06-21-2022 Patient encounter procedure Debbie Echeverria MD Work Phone: [facility] Start: 03-16-2022 End: 03-16-[address] LISSETT VEGA Facility: Start: 02-28-2022 End: 02-28-2022 ambulatory Trista Bonilla APRN.GREENHOUSE FLORIST Work Phone: Radiation Oncology Comment on above: Benign neoplasm of m eninges (HCC) (Primary Dx) Start: 02-28-2022 End: 02-28-2022 Telemedicine consultation with patient Trista Bonilla APRN.GREENHOUSE FLORIST Work Phone: [facility] Start: 02-23-2022 End: 02-23-2022 Subsequent hospital visit by physician [facility] (Lg Bore/1.5t) Radiology MRI Comment on above: Benign neoplasm of m eninges (HCC) [D32.9] Start: 12-21-2021 End: 12-21-2021 ambulatory Debbie Echeverria MD Work Phone: Hematology/Oncology Comment on above: Malignant melanoma o f torso excluding breast (HCC) (Primary Dx) Start: 12-21-2021 End: 12-21-2021 Patient encounter procedure Debbie Echeverria MD Work Phone: [facility] Start: 12-15-2021 End: 12-15-[address] LISSETT VEGA Facility:[facility] Start: 12-11-2021 Gynecological examin ation normal Lissett Vega Other [employer] Other Start: 12-01-2021 Telephone encounter Debbie Echeverria MD Work Phone: Hematology/Oncology Comment on above: 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 - [employer] Start: 11-18-2021 End: 11-19-2021 [...] with patient Luis Licona MD Work Phone: [facility] Start: 08-23-2021 End: 08-23-2021 Subsequent hospital visit by physician [facility] (Lg Bore/1.5t) Radiology MRI Comment on above: Benign neoplasm of m eninges (HCC) [D32.9] Start: 06-16-2021 End: 06-16-2021 Subsequent hospital visit by physician [facility] (Lg Bore/1.5t) Radiology MRI Comment on above: Malignant 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] Start: 06-01-2021 End: 06-01-2021 Subsequent hospital visit by physician [facility] (Lg Bore/1.5t) Radiology MRI Comment on above: Malignant 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] Procedures Date Procedure Procedure Detail Performing Clinician Start: 01-27-2023 Ct head/brain w/o co ntrast material Gurpreet Beckwith DO, PhD Work Phone: Start: 01-27-2023 Unlisted magnetic resonance procedure Gurpreet Beckwith DO, PhD Work Phone: Start: 10-17-2022 Mri brain brain stem w/o w/contrast material Trista Bonilla APRN.GREENHOUSE FLORIST Work Phone: Start: 02-23-2022 Mri brain brain [...] Debbie DE LOS SANTOS Vaginal hysterectomy Debbie DE LOS SANTOS Plan of Treatment Date Care Activity Detail Author Start: 04-03-2023 Depression Assessment Depression Ass [facility] Start: 12-21-2022 Adult depression screening assessment DEPRESSION SCREENING [facility] Start: 12-02-2022 Covid-19 Vaccine () Covid-19 Vaccine () [facility] Start: 12-02-2022 Influenza vaccination [facility] Start: 08-29-2022 End: 03-31-2023 Mri brain brain stem w/o w/contrast material MRI BRAIN WO/W IVCON Radiology Routine Benign neoplasm of meninges (HCC) Expected: 08/29/2022, Expires: 03/31/2023 [facility] Work Phone: Comment on above: Expected: 08/29/2022 , Expires: 03/31/2023 Start: 08-22-2022 Adult depression screening assessment DEPRESSION SCREENING [facility] Start: 04-03-2022 DEPRESSION ASSESSMENT DEPRESSION ASS [facility] Start: 01-24-2022 DIABETES SCREEN DIABETES SCREEN [facility] Start: 01-24-2022 Diabetes Screening Diabetes Screenin g [facility] Start: 12-02-2021 Influenza vaccination [facility] Start: 04-03-2021 [facility] Start: 07-12-2020 COLOGUARD (FIT-DNA) COLOGUARD (FIT-D NA) [facility] Start: 07-12-2020 Colonoscopy COLONOSCOPY [facility] Start: 07-12-2020 COLORECTAL CANCER SCREENING COLORECTAL CANCER SCREENING [facility] Start: 07-12-[address] COLONOGRAPHY [facility] Start: 07-12-2020 FECAL OCCULT BLOOD FECAL OCCULT BLOO D [facility] Start: 07-12-2020 Lipid 1996 panel - S emeterio or Plasma Lipid Screening [facility] Start: 07-12-[address] [facility] Start: 07-12-2020 LIPID SCREEN LIPID SCREEN [facility] Start: 07-12-2020 Screening for malign ant neoplasm of colon [facility] Start: 07-12-2020 SIGMOIDOSCOPY SIGMOIDOSCOPY [facility] Start: 2015 Mammography [facility] Start: 2015 Screening for malign ant neoplasm of breast Mammogram Screening [facility] Start: 07-12-2005 HPV TESTING HPV TESTING [facility] Start: 07-12-2005 Screening for malign ant neoplasm of cervix HPV Testing [facility] Start: 07-12-1996 PAP TESTING PAP TESTING [facility] Start: 07-12-1996 Screening for malign ant neoplasm of cervix Pap Testing [facility] Start: 07-12-1994 Hepatitis B Vaccine (1 of 3 - 19+ 3-dose series) Hepatitis B Vaccine (1 of 3 - 19+ 3-dose series) [facility] Start: 07-12-1994 Urine microalbumin profile [facility] Start: 07-12-1993 HEPATITIS C SCREENING HEPATITIS C SC [facility] Start: 07-12-1993 Hepatitis C screening Hepatitis C [facility] Start: 07-12-1993 HIV SCREENING HIV SCREENING [facility] Start: 07-12-1993 HIV screening HIV Screening [facility] Start: 07-12-1981 PNEUMOCOCCAL (1 - PCV) PNEUMOCOCCAL (1 - PCV) [facility] Start: 07-12-1980 COVID-19 VACCINE (#1) COVID-19 VACCI NE (#1) [facility] Start: 01-12-1976 COVID-19 VACCINE (#1) COVID-19 VACCI NE (#1) [facility] Start: 1975 HEPATITIS B (1 of 3 - 3-dose series) HEPATITIS B (1 of 3 - 3-dose series) [facility] Start: 1975 Hepatitis B Vaccine (1 of 3 - 3-dose series) Hepatitis B Vaccine (1 of 3 - 3-dose series) [facility] End: 09-22-2022 Mri brain brain stem w/o w/contrast material MRI BRAIN WO/W IVCON Radiology Routine Benign neoplasm of meninges (HCC) 1 Occurrences starting 08/23/2021 until 09/22/2022 [facility] Work Phone: Comment on above: 1 Occurrences starti ng 08/23/2021 until 09/22/2022 [facility] AN[facility]HESIA O NLY [facility] Immunizations Immunization Date Immunization Notes Care Provider Fa cility 06-05-2020 SARS-CoV-2 (COVID-19 ) mRNA BNT-162b2 vax Debbie [facility]ILL [facility] 05-15-2020 SARS-CoV-2 (COVID-19 ) mRNA BNT-162b2 vax Debbie [facility] NEGATED: Highlighted row has not occurred!02-17-2023 influenza virus vaccine, unspecified formulation Debbie NILL [facility] Payers Date Payer Category Payer Self-pay 2018 Unknown MMO MMO [employer] [id number] 2018-Present [phone] [address] [place] [address] PPO [id number] 2018 Unknown [id number] 1975 Unknown [id number] 1975 Unknown [id number] 1975 Unknown [id number] 1975 Unknown [id number] 1975 Unknown [id number] 1975 Unknown [id number] 1975 Unknown [id number] 1959 Self-pay [id number] 1959 Unknown [id number] Unknown [id number] Unknown [id number] Unknown [id number] Social History Date Type Detail Facility Start: 11-19-2018 End: 02-17-2023 Tobacco smoking status NHIS Ex-smoker [facility] End: 08-02-2018 History of tobacco use Current smoker [facility] End: 08-02-2018 History of tobacco use Cigarette Smoker [facility] Start: 11-19-2018 Tobacco use and exposure Smokeless tobacco non-user [facility] Start: 06-21-2021 End: 12-22-2022 Alcohol intake Current drinker of alcohol (finding) [facility] Start: 11-19-2018 History SDOH Alcohol Comment occasionally [facility] Start: 1975 Sex Assigned At Not on file C [facility] Start: 12-11-2021 End: 12-21-2021 Exposure to SARS-CoV-2 (event) Not sure [facility] Start: 06-21-2022 End: 10-18-2022 Sex Assigned At [facility] Start: 06-21-2022 End: 10-18-2022 History of Social function [facility] Adult Depression Screening Assessment 0 [facility] Start: 01-20-2020 Gender identity Identifies as female gender (finding) [facility] Start: 05-02-2021 End: 06-11-2021 Exposure to SARS-CoV-2 (event) Unable to assess [facility] Start: 1975 Sex Assigned At Female F [facility] Functional Status Date Assessment Result Facility 02-17-2023 Functional Status N/A General Phan rgery Jayjay Clinical Notes 06-01-2021 to 06-13-2023 Cherrie Bell RN - 06/13/2023 9:33 AM Nicole Carbajal MD - 06/13/2023 9:30 AM EDTTelephone Encounter - Marli Patino - 05/12/2023 9:27 AM EST Note Date & Type Note Facility 06-13-2023 Note HNO ID: [id number] Author: DEBBIE ECHEVERRIA MD Service: ? Author Type: Fellow Type: Progress Notes Filed: 06/14/2023 17:20 Note Text: [facility]Y ESTABLISHED PATIENT VISIT PATIENT NAME: [...] no new issues and last visit with ios programmer was about 6 months ago. She denies [...] Lymph 1.00 - 4.00 k/uL 2.12 Abs Wilkinson <0.87 k/uL 0.72 Abs Eosin <0.46 k/uL [...] 6 months - recommend follow up with ios programmer Patient seen and discussed with Gastroenterology Oncology [...] with more than 50% of the total gijz-ls-pvwj time of the visit in counseling / coordination of care. (more content not included)... [facility] 06-13-2023 Nurse Note Additional intake questions: Has [...] or Resource Center documented in this encounter [facility] 06-13-2023 History of Presen t illness Narrative Images from the original note were not included. [facility] GASTRO[facility] ONCOL[facility]Y ESTABLISHED PATIENT VISIT PATIENT NAME: [...] no new issues and last visit with ios programmer was about 6 months ago. She denies [...] Lymph 1.00 - 4.00 k/uL 2.12 Abs Wilkinson <0.87 k/uL 0.72 Abs Eosin <0.46 k/uL [...] 6 months - recommend follow up with ios programmer Patient seen and discussed with Gastroenterology Oncology [...] with more than 50% of the total hxnu-jj-vqrr time of the visit in counseling / coordination of care. Debbie Echeverria MD documented in this encounter [facility] 05-12-2023 Miscellaneous Notes Per Johann (RN)-via email: This patient had GK in January and their follow up MRI and appointment was never scheduled. [facility] with Ce piña. Schedule this for September please. Appointments scheduled. Mychart and letter sent. Marli Patino documented in this encounter [facility] 03-16-2023 Evaluation note Encounter Date Diagnosis Assessment Notes Mar, LLQ abdominal pain (ICD-10 - R10.32) Discussed differential - kidney stone, diverticulosis (recent normal colonoscopy), ovarian issue or constipation (no BM x 2 days) due to hematuria on UA - recommend CT without contrast to r/o stone. Mar, Microscopic hematuria (ICD-10 - R31.29) [facility] 12-14-2023 Evaluation note* Encounter Date Diagnosis [...] She would like to continue this treatment. [employer] [facility] 11-17-2023 NoteChief Complaint consultation for screening [...] (COVID-19) mRNA BNT-162b2 vax 05/15/[address] [facility] Center[facility] on above:Result Comment: Electronically Signed By: Debbie DE LOS SANTOS MD\Date and Time Signed: 02/17/23 15:11 [id number] Miscellaneous Notes* Telephone Encounter - Johann Henriquez [...] symptoms or concerns arise. documented in this encounterOhiohealth11-07-2023 Miscellaneous Notes* Telephone Encounter - Johann Henriquez RN - 02/07/2023 1:13 PM EST 2nd attempt to reach out, patient unavailable. Will send [employer] message with contact information to call if she is experiencing any symptoms or has any concerns since gamma knife treatment. * Telephone Encounter - Johann Henriquez RN - 02/06/2023 1:17 PM EST Calling Ben for post-GKRS follow-up. Unable to reach at this time. Left voicemail. documented in this encounterOhiohealth11-01-2023 NoteHNO ID: [id number] Author: Burak Prakash MD Service: Radiation Oncology Author Type: Physician Type: Progress Notes Filed: 02/03/2023 12:33 AM Note Text: BEN CRUZ [id number] 02/01/2023 [facility] / Department of Radiation [...] Electronically Signed cc: Dr. [facility]preet [facility]with[facility] NoteHNO ID: [id number] Author: Gurpreet Beckwith DO, PhD Service: ? Author Type: Physician Type: Progress Notes Filed: 01/27/2023 1:49 PM Note Text: [facility] [address] [place] [address] [place] OPERATIVE REPORT NAME: Ben Cruz NO.: [id number] MASK SIMULATION DATE: 2023-01-27 RADIATION TREATMENT START [...] Number of Fractions: 1 After the usual water quality tester procedures were performed, fractionated 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 was delivered with use of the Gamma Knife. The Gamma Knife checklist and time outs were performed during this procedure. Gurpreet Beckwith DO, PhDK[facility]10-27-2023 NoteHNO ID: [id number] Author: Burak Prakash MD Service: Radiation Oncology Author Type: Physician Type: Progress Notes Filed: 02/01/2023 12:33 AM Note Text: BEN CRUZ [id number] 01/27/2023 [facility] Cindi Diez [facility] STEREOTACTIC RADIOSURGERY (SRS) DAILY PROCEDURE NOTE DATE [...] setup, I conferred with the medical records coordinator to approve the final setup. I was [...] M.D. :10 [facility]10-27-2023 NoteHNO ID: [id number] Author: Burak Prakash MD Service: Radiation Oncology Author Type: Physician Type: Progress Notes Filed: 02/02/2023 12:32 AM Note Text: BEN CRUZ [id number] 01/27/2023 [facility] Cindi Xiomara Rg [facility] Department of Radiation Oncology [facility] RADIATION ONCOLOGY GAMMA KNIFE SIMULATION NOTE DATE [...] M.D. :18 [facility]10-27-2023 NoteHNO ID: [id number] Author: Burak Prakash MD Service: Radiation Oncology Author Type: Physician Type: Progress Notes Filed: 02/01/2023 12:33 AM Note Text: BEN CRUZ [id number] 01/27/2023 [facility] Department of Radiation Oncology [facility] RADIATION ONCOLOGY GAMMA KNIFE TREATMENT PLANNING NOTE [...] Electronically Signed Burak Prakash M.D. / [facility] :29 [facility]10-27-2023 History of Present illness Narrative* Gurpreet Beckwith DO, PhD - 01/27/2023 1:49 PM EDT [facility] [address] [place] [address] [place] OPERATIVE REPORT NAME: RickelBen NO.: [id number] MASK SIMULATION DATE: 2023-01-27 RADIATION TREATMENT START [...] Number of Fractions: 1 After the usual water quality tester procedures were performed, fractionated 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 was delivered with use of the Gamma Knife. The Gamma Knife checklist and time outs were performed during this procedure. Gurpreet Beckwith DO, PhD documented in this encounterOhiohealth10-27-2023 NoteHNO ID: [id number] Author: Gurpreet Beckwith DO, PhD Service: ? Author Type: Physician Type: Progress Notes Filed: 01/27/2023 11:22 AM Note Text: [facility] [address] [place] [address] [place] OPERATIVE REPORT NAME: Ben Cruz NO.: [id number] MASK SIMULATION DATE: 2023-01-27 RADIATION TREATMENT START [...] Number of Fractions: 1 After the usual water quality tester procedures were performed, fractionated 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 was delivered with use of the Gamma Knife. The Gamma Knife checklist and time outs were performed during this procedure. Gurpreet Beckwith DO, PhDK[facility]tering [facility]10-27-2023 NoteHNO ID: [id number] Author: Zee Padilla Tech Service: Radiology Author Type: Gas Appliance Repairer Type: Progress Notes Filed: 01/27/2023 8:06 AM [...] BY: Tyshawn Lawler January 27, 2023 8:06 [facility]10-27-2023 NoteHNO ID: [id number] Author: Gurpreet Beckwith DO, PhD Service: ? [...] FU imaging Saw Dr Licona 10 19 23: MRI brain on 10/17/2022 showed small interval [...] - 123 U/L 60 (more content not included)...[facility]10-27-2023 History of Present illness Narrative* Gurpreet Beckwith DO, PhD - 01/27/2023 11:21 AM EDT [facility] [address] [place] [address] [place] OPERATIVE REPORT NAME: Ben Cruz [facility] NO.: [id number] MASK SIMULATION DATE: 2023-01-27 RADIATION TREATMENT START [...] Number of Fractions: 1 After the usual water quality tester procedures were performed, fractionated 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 was delivered with use of the Gamma Knife. The Gamma Knife checklist and time outs were performed during this procedure. Gurpreet Beckwith DO, PhD documented in this encounterOhiohealth10-27-2023 History of Present illness Narrative* Zee Padilla [...] 27, 2023 8:06 AM documented in this encounterOhiohealth10-27-2023 NoteHNO ID: [id number] Author: Anton Terrell RN Service: Nursing Author [...] Cruz DATE: January 27, 2023 TIME: 7:46 [facility]10-27-2023 NoteHNO ID: [id number] Author: Mariela Burk RT(R) Service: Radiology Author [...] and Intact, Site disposition Discontinued SIGNED BY: Mariela Burk RT(R) January 27, 2023 7:59 [facility]10-27-2023 History of Present illness Narrative* Gurpreet [...] 123 U/L 60 Final Pathology: Specimen #: [id number] Submitting Physician: DEBBIE ECHEVERRIA MD FINAL DIAGNOSIS Skin, left upper midline back, shave biopsy - Desmoplastic melanoma, see synoptic report. RADHA/evelyn 11/09/2018 Imagin01 27 2023 - MRI Brain [...] FRONTAL LOBE, UNCHANGED GOING BACK TO 06/01/2021 Computer Network Specialist: TORI Transcribe Date/Time: Jan 27 2023 8:08A [...] a CBCT with the mask on the [employer] GK machine and this image will be [...] PhD cc: Ben toro documented in this encounterOhiohealth10-27-2023 NoteHNO ID: [id number] Author: Gayle Acevedo RN Service: ? Author [...] Dr. Aria Beckwith DO, Gayle Acevedo RN 0729 Mask SIM completed. Bentoby Cruz returned to department for treatment # 1 of 1. Is patient receiving immunotherapy infusions: Not Applicable. Patient's Age: 47 Menstruation Status: Hysterectomy 2019 [facility] [place] [place] Results: N/A test not performed QC: Yes, testing is valid (or protocol followed for invalid testing). Reference range: Normal Value = Negative for hCG. POC performed by: Gayle Acevedo RN 2625 4 mg Decadron PO given prior to GKRS per order of Dr. Virgil Beckwith 0946 GKRS start time. 1016 GKRS end time. 1025 Discharge instructions given to patient; instructions reviewed by this RN; patient/family verbalized understanding; patient discharged via/with Gayle Acevedo RNKettering [facility]10-27-2023 Instructions* Patient Instructions* Gayle Acevedo RN - 01/27/2023 7:45 AM EDT [facility] Discharge Instructions As with [...] a physician or hospital other than the [facility] with any problem related to the [...] may your physician, Dr. Virgil Beckwith at [phone] Monday through Monday 8:00 am to 5:00 pm, or call the Gamma Knife nurse Monday through Monday 8:00 am to 4:00 pm at [phone]. In the evening or on weekends, call [phone] or toll-free [phone]-CARE and ask the transit mixer operator to page your neurosurgeon's resident senior qa automation engineer. documented in this encounterOhiohealth10-27-2023 History of Present illness Narrative* Anton Terrell [...] 27, 2023 7:59 AM documented in this encounterOhiohealth10-27-2023 History of Present illness Narrative* Gayle Acevedo [...] Patient's Age: 47 Menstruation Status: Hysterectomy 2019 [facility] [place] [place] Results: N/A test not performed QC: Yes, [...] via/with Gayle Acevedo RN documented in this encounterOhiohealth10-27-2023 History of Present illness Narrative* Burak Prakash MD - 01/27/2023 12:00 AM EDT BEN CRUZ [id number] 01/27/2023 [facility] Cindi Xiomara [facility] STEREOTACTIC RADIOSURGERY (SRS) DAILY PROCEDURE NOTE DATE [...] patientsetup, I conferred with the medical records coordinator to approve the final setup. I was [...] Prakash M.D. :10 PM documented in this encounterOhiohealth10-27-2023 History of Present illness Narrative* Burak Prakash MD - 01/27/2023 12:00 AM EDT BEN CRUZ [id number] 01/27/2023 [facility] Department of Radiation Oncology [facility] RADIATION ONCOLOGY GAMMA KNIFE TREATMENT PLANNING NOTE [...] Electronically Signed Burak Prakash M.D. / [facility] 31:29 PM documented in this encounterOhiohealth09-21-2023 NoteHNO ID: [id number] Author: Debbie Echeverria MD Service: ? Author Type: Physician Type: Progress Notes Filed: 12/23/2022 9:46 AM Note Text: December 22, 2022 DXN: Resected T4aN0 desmoplastic melanoma. The lesion was about 4.5mm located on her back with 2 negative SLNs (left axilla). There was no reported neurtropism and only one mitotic figure. Margins were negative. Declined an adjuvant trial in [place]. Baseline imaging today is negative CC: Melanoma [...] beckwith components of the Resident. Debbie Echeverria, [facility]08-15-2023 Miscellaneous Notes* Telephone Encounter - Betzy Heard RN - 11/15/2022 1:57 PM EDT Calling Ben to follow up on [employer] message about scheduling gamma knife for 01/27/2023 No answer, left message stating that I'll go ahead and place the GK orders. Reminded to disregard ANY appointment times she sees in [employer], any automated text reminders or automated phone calls for 01/27/23 She will receive a call from the GK nurse or radiation therapist the day before with her arrival time. If she has any questions, I left office phone # for call back or she can send a [employer] message. I will send out a GK folder with additional information related to Mask Based Gamma Knife Radiosurgery Betzy Heard RN, BSN 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 [facility] documented in this encounterOhiohealth08-04-2023 NoteHNO ID: [id number] Author: Gurpreet Bekcwith DO, PhD Service: ? Author Type: Physician Type: Progress Notes Filed: 11/04/2022 1:27 PM Note Text: [facility] New Patient Virtual Consultation Referred by Dr. Luis Licona We had a virtual visit conducted via My [employer] visit. I received consent from the patient to perform the visit using this platform. I have communicated my name and active licensure. The patient's identity and physical location were verified at the time of this visit. Either the patient or their legal medical sales representative has been informed of the [...] Pathology: Specimen #: [id number] (more content not included)...[facility] 11-04-2022 History of Present illness Narrative* Gurpreet Beckwith DO, PhD - 11/04/2022 1:00 PM EDT Images from the original note were not included. [facility] New Patient Virtual Consultation Referred by Dr. Luis Licona We had a virtual visit conducted via Chorus virtual visit. I received consent from the patient to perform the visit using this platform. I have communicated my name and active licensure. The patient's identity and physical location wereverified at the time of this visit. Either the patient or their legal medical sales representative has been informed of the [...] 123 U/L 60 Final Pathology: Specimen #: [id number]* Submitting Physician: DEBBIE ECHEVERIRA MD FINAL DIAGNOSIS Skin, left upper midline back, shave biopsy - Desmoplastic melanoma, see synoptic report. ARDHA/evelyn 11/09/2018 Imaging: MRI Report MRI BRAIN WO/W IVCON Exam End: 10/17/2022 11:20 AM (Final result) Narrative: * * *Final Report* * * DATE OF EXAM: Oct 17 2022 11:20AM [facility] 0295 - MRI BRAIN WO/W IVCON / [...] with air-fluid level suggestive of acute/active sinusitis. Computer Network Specialist: TORI Transcribe Date/Time: Oct 17 2022 11:35A [...] which included preparing to see the patient, knad-pk-erwv patient care, completing clinical documentation, obtaining and/or reviewing separately obtained history, performing a medically appropriate examination, counseling and educating the pat ient/family/caregiver, ordering medications, tests, or procedures, communicating with other HCPs (not separately reported), independently interpreting results (not separately reported), communicatingresults to the patient/family/caregiver, and care coordination (not separately reported). Gurpreet Beckwith DO, PhD cc: Ben Licona- muna Echeverria- muna documented in this encounterOhiohealth07-31-2023 Evaluation note* Encounter Date Diagnosis Assessment Notes Treatment Notes Treatment Clinical Notes Oct, Screen for colon cancer (ICD-10 - Z12.11) [employer] Other 07-19-2023 NoteHNO ID: [id number] Author: Luis Licona MD Service: ? Author [...] resident's medical decisio (more content not included)... [facility]07-19-2023 History of Present illness Narrative* Luis Licona [...] Luis Licona MD cc: Debbie Echeverria [address] [address] documented in this encounterOhiohealth07-18-2023 NoteHNO ID: [id number] Author: Trista Bonilla APRN.CNP Service: ? Author Type: Nurse Practitioner Type: Progress Notes Filed: 10/19/2022 12:11 AM Note Text: Elements of this note, including HPI, ROS, Physical Exam, Assessment and Plan were copied and pasted from 02/28/22 encounter with me. Updates have been made where noted and reflect current exam and medical decision making from October 18, 2022. Trista Bonilla APRN.CNP. [facility] DISTANCE HEALTH VISIT [facility] which required patient-provider interaction for the medical decision making as documented below. Persons Present: patient Ben Cruz has consented to this distance health encounter. Total Time Spent: more than 20 minutes msie-jk-psul with the patient and over half the [...] DATE OF EXAM: Oct 17 2022 11:20AM [facility] 0295 - MRI BRAIN WO/W IVCON [...] with air-fluid level suggestive of acute/active sinusitis. Computer Network Specialist: PSCB Transcribe Date/Time: Oct 17 2022 11:35A [...] Moves all extremities purp (more content not included)...[facility]07-18-2023 History of Present illness Narrative* Trista Bonilla APRN.SHERITA - 10/18/2022 10:30 AM EDT Elements of this note, including HPI, ROS, Physical Exam, Assessment and Plan were copied and pasted from 02/28/22 encounter with me. Updates have been made where noted and reflect current exam and medical decision making from October 18, 2022. Trista Bonilla APRN.SHERITA. [facility] DISTANCE HEALTH VISIT This visit is a Virtual MyChart video visit encounter which required patient- provider interaction for the medical decision making as documented below. Persons Present: patient Ben Cruz has consented to this distance health encounter. Total Time Spent: more than 20 minutes mtvh-md-grwq with the patient and over half the [...] DATE OF EXAM: Oct 17 2022 11:20AM [facility] 0295 - MRI BRAIN WO/W IVCON [...] with air-fluid level suggestive of acute/active sinusitis. Computer Network Specialist: TORI Transcribe Date/Time: Oct 17 2022 11:35A [...] treatment options, per patient request. Trista Bonilla APRN.CNP Cc: Dr. Luis Echeverria documented in this encounterOhiohealth07-17-2023 NoteHNO ID: [id number] Author: Nidia Morelos RN Service: Nursing Author [...] Cruz DATE: October 17, 2022 TIME: 10:40 [facility]07-17-2023 NoteHNO ID: [id number] Author: Barbara Gaxiola, ux ui designer Service: Radiology Author Type: Gas Appliance Repairer Type: Progress Notes Filed: 10/17/2022 10:54 AM [...] Site disposition Discontinued SIGNED BY: Barbara Gaxiola ux ui designer October 17, 2022 10:53 [facility]07-17-2023 History of Present illness Narrative* Nidia [...] 2022 TIME: 10:40 AM * Barbara Gaxiola ux ui designer - 10/17/2022 10:40 AM EDT Radiology Service [...] and Intact, Site disposition Discontinued SIGNED BY: RANGEL Hubbard October 17, 2022 10:53 AM documented in this encounterOhiohealth06-21-2023 Evaluation note* Encounter Date Diagnosis Assessment Notes [...] the berberine and get back to patient. [employer] Other 05-31-2023 Miscellaneous Notes* Telephone Encounter - [...] 09/05. Prescription should be sent to the [facility] in [place] on [facility]. [facility] [phone] [place] [id number] documented in this encounterOhiohealth03-21-2023 NoteHNO ID: [id number] Author: Debbie Echeverria MD Service: ? Author Type: Physician Type: Progress Notes Filed: 06/21/2022 11:09 AM Note Text: June 21, 2022 DXN: Resected T4aN0 desmoplastic melanoma. The lesion was about 4.5mm located on her back with 2 negative SLNs (left axilla). There was no reported neurtropism and only one mitotic figure. Margins were negative. Declined an adjuvant trial in [place]. Baseline imaging today is negative CC: Melanoma [...] with more than 50% of the total vvsy-bz-hezf time of the visit in counseling / coordination of care. Debbie Echeverria, [facility]03-21-2023 History of Present illness Narrative* Debbie Echeverria MD - 06/21/2022 11:08 AM EDT June 21, 2022 DXN: Resected T4aN0 desmoplastic melanoma. The lesion was about 4.5mm located on her back with 2 negative SLNs (left axilla). There was no reported neurtropism and only one mitotic figure. Margins were negative. Declined an adjuvant trial in [place]. Baseline imaging today is negative CC: Melanoma [...] with more than 50% of the total bflq-ab-wnfm time of the visit in counseling / coordination of care. Debbie Echeverria MD documented in this encounterOhiohealth03-21-2023 Nurse Note* Vanessa Giang LPN - 06/21/2022 10:29 AM EDT Additional intake questions: Has the patient had fever, nausea, vomiting, diarrhea, constipation, fatigue for > 1 week? Yes, fatigue and Provider Notified Does the patient have a decreased appetite? No Does patient want to see a Diamond Wheel Edger? No (yes to any of above refer patient to schedulers for dietitian appointment) ) Does patient have any new or increased numbness or tingling of extremities? No Is patient interested in fertility information? NA Does patient need any prescription refills? No Does patient have an advanced directive in place? No, Patient refused referral to Social Work or Resource Center documented in this encounterOhiohealth11-28-2022 History of Present illness Narrative* Trista Bonilla APRN.SHERITA - 02/28/2022 10:30 AM EST [facility] DISTANCE HEALTH VISIT This visit is a Virtual MyChart video visit encounter which required patient- provider interaction for the medical decision making as documented below. Persons Present: patient Ben Cruz has consented to this distance health encounter. 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 She denies focal weakness, dizziness, gait instability, or seizures. Data Reviewed: MRI Report MRI BRAIN WO/W IVCON Exam End: 02/23/2022 11:31 AM (Final result) Narrative: * * *Final Report* * * DATE OF EXAM: Feb 23 2022 11:31AM [facility] 0295 - MRI BRAIN WO/W IVCON [...] unremarkable MRI brain with and without contrast. Computer Network Specialist: [facility] Transcribe Date/Time: Feb 23 2022 11:50A [...] She will continue to get MRI at [facility] and present in VV follow up. Trista Bonilla APRN.CNP Cc: Dr. Luis Echeverria documented in this encounterOhiohealth11-23-2022 History of Present illness Narrative* Nidia Morelos [...] 2022 TIME: 10:33 AM * Barbara Gaxiola ux ui designer - 02/23/2022 10:40 AM EST Radiology Service [...] and Intact, Site disposition Discontinued SIGNED BY: RANGEL Hubbard February 23, 2022 10:57 AM documented in this encounterOhiohealth09-20-2022 History of Present illness Narrative* Debbie Echeverria MD - 12/21/2021 1:37 PM EDT December 21, 2021 DXN: Resected T4aN0 desmoplastic melanoma. The lesion was about 4.5mm located on her back with 2 negative SLNs (left axilla). There was no reported neurtropism and only one mitotic figure. Margins were negative. Declined an adjuvant trial in [place]. Baseline imaging today is negative CC: Melanoma [...] with more than 50% of the total tdye-vg-rctc time of the visit in counseling / coordination of care. Debbie Echeverria MD documented in this encounterOhiohealth09-20-2022 Nurse Note* Tiny Mckoy LPN - 12/21/2021 1:20 PM EDT Additional intake questions: Has the patient had fever, nausea, vomiting, diarrhea, constipation, fatigue for > 1 week? Yes, fatigue Does the patient have a decreased appetite? No Does patient want to see a Diamond Wheel Edger? No (yes to any of above refer patient to schedulers for dietitian appointment) ) Does patient have any new or increased numbness or tingling of extremities? No Is patient interested in fertility information? No Does patient need any prescription refills? No Does patient have an advanced directive in place? No, Patient refused referral to Social Work or Resource Center documented in this encounterOhiohealth09-02-2022 Miscellaneous Notes* Telephone Encounter - Jaylene Jacobson RN - 12/03/2021 12:49 PM EDT Patient needs a follow up visit (no labs or scans) around 12/25/21. She accepted a visit on 12/21 at 1:30 pm. 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 Echeverria to get it scheduled. Can she be called once appointment is made? Patient has been identified by name and birthdate. Requesting response back: [phone] (home) [phone] (cell) Mary Lindsay December 01, 2021 documented in this encounterOhiohealth05-23-2022 History of Present illness Narrative* Luis Licona [...] an updated MRI in 6 months in [place] followed by a virtual visit for further meningioma surveillance, with additional surveillance plan to be developed thereafter. Zhanna Le MD Radiation Oncology Resident [id number] STAFF ADDENDUM I saw and evaluated the [...] brain. Luis Licona MD cc: Debbie Echeverria [id number] [facility] [id number] documented in this encounterOhiohealth05-23-2022 History of Present illness Narrative* Nidia Morelos [...] 23, 2021 12:14 PM documented in this encounterOhiohealth03-16-2022 History of Present illness Narrative* Nazanin Moncada [...] 2021 TIME: 10:22 AM * Barbara Gaxiola ux ui designer - 06/16/2021 10:00 AM EDT Radiology Service [...] and Intact, Site disposition Discontinued SIGNED BY: RANGEL Hubbard June 16, 2021 10:35 AM documented in this encounterOhiohealth03-01-2022 History of Present illness Narrative* Barbara Gaxiola [...] and Intact, Site disposition Discontinued SIGNED BY: RANGEL Hubbard Lynn Sanders RT June 01, 2021 [...] 2021 TIME: 11:13 AM [facility] No data available for this section General Surgery Jayjay Evaluation note* Diagnosis 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 documented in this encounter [facility] note* Diagnosis 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 documented in this encounter [facility] note* Diagnosis Benign neoplasm of meninges (HCC)- Primary Benign neoplasm of cerebral meninges documented in this encounter [facility] note* Diagnosis 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) documented in this encounter [facility] noteNo [employer] Other Evaluation note* Diagnosis Meningioma (HCC)- Primary Benign neoplasm of cerebral meninges documented in this encounter [facility]* Diagnosis Meningioma (HCC)- Primary Benign neoplasm of cerebral meninges documented in this encounter [facility]* Diagnosis Benign neoplasm of meninges (HCC)- Primary Benign neoplasm of cerebral meninges [facility]* Diagnosis Benign neoplasm of meninges (HCC)- Primary Benign neoplasm of cerebral meninges documented in this encounter [facility]* Diagnosis Benign neoplasm of meninges (HCC)- Primary Benign neoplasm of cerebral meninges documented [facility]* Diagnosis Benign neoplasm of meninges (HCC)- Primary Benign neoplasm of cerebral meninges documented in this encounter [facility]* Diagnosis 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 documented in this encounter [facility]* Diagnosis 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 documented [facility]* Diagnosis 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 documented in this encounter [facility]* Diagnosis 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) Liver lesion Other specified disorders of liver documented [facility] this [facility]* Diagnosis 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 documented [facility]* Diagnosis 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 Work Phone: History general Narrative - Reported* Type Description Date Medical History melanoma Surgical History laminectomy Surgical History c-sectionx 2 Surgical History hysterectomy Surgical History lump removed right wrist Surgical History melanoma removal [employer] Other History general Narrative - ReportedNortKolorific Other History general Narrative - Reported* Type Description Date Medical History melanoma Surgical History laminectomy Surgical History c-sectionx 2 Surgical History hysterectomy Surgical History lump removed right wrist Surgical History melanoma removal Surgical History Colonoscopy 03/2023 [employer] Other Hospital Discharge instructions No data available for this section General Surgery [place] Progress note No data available for this section General Surgery [place] Reason for Referral Specialty Diagnoses / Procedures Referred By Selene lloyd Referred To Contact MR IMAGING Diagnoses Benign neoplasm of meninges (HCC) Procedures MRI BRAIN WO/W IVCON MRI BRAIN BRAIN STEM W/O W/[place] [address] [place] [address] Mr Imaging Referral ID Status Reason Start Date Expiration Date Visits Requested Visits Authorized [id number] Pending Review Auto-Generat ed Referral 08/23/2021 09/22/2022 1 1 Specialty Diagnoses / Procedures Referred By Selene lloyd Referred To Contact MR IMAGING Diagnoses Benign neoplasm of meninges (HCC) Procedures MRI BRAIN WO/W IVCON MRI BRAIN BRAIN STEM W/O W/CONTRAST MATERIAL Trista Bonilla APRN.SHERITA [address] [place] [address] Mr Imaging Referral ID Status Reason Start Date Expiration Date Visits Requested Visits Authorized [id number] Pending Review Auto-Generat ed Referral 08/29/2022 03/31/2023 1 1 Reason *FU 11/15 screenin g colonoscopy Diagnosis 1 Screen for colon can cer (Z12.11) Referral Organization [facility] elias Referring Provider First Name Lissett Referring Provider Last Name Gary Referring Provider Specialty Family [facility] Referred Organization [facility] Referred Provider Tucker Ann Referred Address [address] [place], [place],[address] Referred Provider Specialty General Surg katelyn Referral Priority Routine General Notes Louise Livingston 10:47:05 AM >received today, attachments made, notes locked, referral faxed Clinical Notes F: [id number] Specialty Diagnoses / Procedures Referred By Selene lloyd Referred To Contact MR IMAGING Diagnoses Benign neoplasm of meninges (HCC) Procedures MRI BRAIN LOCALIZATION W IVCON UNLISTED MAGNETIC RESONANCE PROCED Gurpreet Beckwith DO, PhD [address] [place] [address] Mr Imaging [facility] Referral ID Status Reason Start Date Expiration Date V isits Requested Visits Authorized [id number] Closed Auto-Generate d Referral 12/06/2022 1 1 Specialty Diagnoses / Procedures Referred By Contac t Referred To Contact MR IMAGING Diagnoses Benign neoplasm of meninges (HCC) Procedures MRI BRAIN WO/W IVCON MRI BRAIN BRAIN STEM W/O W/[place] [address] [place] [address] Mr Imaging [place] [address] Referral ID Status Reason Start Date Expiration Date V isits Requested Visits Authorized [id number] Closed Auto-Generate d Referral 06/21/2021 09/18/2021 1 1 Specialty Diagnoses / Procedures Referred By Contac t Referred To Contact MR IMAGING Diagnoses 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) Liver lesion Procedures MRI LIVER WO/W IVCON MRI ABDOMEN W/O & W/[place] [address] [place] [id number] Mr Imaging [place] [address] Referral ID Status Reason Start Date Expiration Date V isits Requested Visits Authorized [id number] Closed Auto-Generate d Referral 05/20/2021 07/11/2021 1 1 Specialty Diagnoses / Procedures Referred By Contac t Referred To Contact MR IMAGING Diagnoses Benign neoplasm of meninges (HCC) Procedures MRI BRAIN WO/W IVCON MRI BRAIN BRAIN STEM W/O W/CONTRAST MATERIAL Trista Bonilla APRN.CNP [address] [place] [address] Mr Imaging [place] [address] Referral ID Status Reason Start Date Expiration Date V isits Requested Visits Authorized [id number] Closed Auto-Generate d Referral 08/29/2022 03/31/2023 1 1 Referral ID Status Reason Start Date Expiration Date V isits Requested Visits Authorized [id number] Closed Auto-Generate d Referral 08/23/2021 03/20/2022 1 1 Summary Purpose Family History Relationship Condition Age at Onset Recorded Date/T dian father Malignant neoplasm Unknown Family history of pancreatic cancer Unkno wn Diabetes mellitus Unknown Unknown Not Specified Malignant neoplasm Unknown Malignant neoplasm of breast Unknown Advance Directives Advance Directive Response Recorded Date/ Time Advance Directives No December 6:07pm Chief Complaint and Reason for Visit Chief Complaint Familial Hypercholes terolemia UA - tingling, unable to empty bladder Reason for Visit Familial hypercholes teremia History of benign meningioma of brain Additional Source Comments Source Comments (unrecognize d section and content) In the event this informatio n is protected by the Federal Confidentiality of Alcohol and Drug Abuse Patient Records regulations: The Federal rules restrict any use of the information to criminally investigate or prosecute any alcohol or drug abuse patient.OhiohealthIn the event this information is protected by the Federal Confidentiality of Alcohol and Drug Abuse Patient Records regulations: The Federal rules restrict any use of the information to criminally investigate or prosecute any alcohol or drug abuse patient.OhiohealthIn the event this information is protected by the Federal Confidentiality of Alcohol and Drug Abuse Patient Records regulations: The Federal rules restrict any use of the information to criminally investigate or prosecute any alcohol or drug abuse patient.OhiohealthIn the event this information is protected by the Federal Confidentiality of Alcohol and Drug Abuse Patient Records regulations: The Federal rules restrict any use of the information to criminally investigate or prosecute any alcohol or drug abuse patient.OhiohealthIn the event this information is protected by the Federal Confidentiality of Alcohol and Drug Abuse Patient Records regulations: The Federal rules restrict any use of the information to criminally investigate or prosecute any alcohol or drug abuse patient.OhiohealthIn the event this information is protected by the Federal Confidentiality of Alcohol and Drug Abuse Patient Records regulations: The Federal rules restrict any use of the information to criminally investigate or prosecute any alcohol or drug abuse patient.OhiohealthIn the event this information is protected by the Federal Confidentiality of Alcohol and Drug Abuse Patient Records regulations: The Federal rules restrict any use of the information to criminally investigate or prosecute any alcohol or drug abuse patient.OhiohealthIn the event this information is protected by the Federal Confidentiality of Alcohol and Drug Abuse Patient Records regulations: The Federal rules restrict any use of the information to criminally investigate or prosecute any alcohol or drug abuse patient.OhiohealthIn the event this information is protected by the Federal Confidentiality of Alcohol and Drug Abuse Patient Records regulations: The Federal rules restrict any use of the information to criminally investigate or prosecute any alcohol or drug abuse patient.OhiohealthIn the event this information is protected by the Federal Confidentiality of Alcohol and Drug Abuse Patient Records regulations: The Federal rules restrict any use of the information to criminally investigate or prosecute any alcohol or drug abuse patient.OhiohealthIn the event this information is protected by the Federal Confidentiality of Alcohol and Drug Abuse Patient Records regulations: The Federal rules restrict any use of the information to criminally investigate or prosecute any alcohol or drug abuse patient.OhiohealthIn the event this information is protected by the Federal Confidentiality of Alcohol and Drug Abuse Patient Records regulations: The Federal rules restrict any use of the information to criminally investigate or prosecute any alcohol or drug abuse patient.[place]healthIn the event this information is protected by the Federal Confidentiality of Alcohol and Drug Abuse Patient Records regulations: The Federal rules restrict any use of the information to criminally investigate or prosecute any alcohol or drug abuse patient.[place]healthIn the event this information is protected by the Federal Confidentiality of Alcohol and Drug Abuse Patient Records regulations: The Federal rules restrict any use of the information to criminally investigate or prosecute any alcohol or drug abuse patient.[place]healthIn the event this information is protected by the Federal Confidentiality of Alcohol and Drug Abuse Patient Records regulations: The Federal rules restrict any use of the information to criminally investigate or prosecute any alcohol or drug abuse patient.[place]healthIn the event this information is protected by the Federal Confidentiality of Alcohol and Drug Abuse Patient Records regulations: The Federal rules restrict any use of the information to criminally investigate or prosecute any alcohol or drug abuse patient.[place]healthIn the event this information is protected by the Federal Confidentiality of Alcohol and Drug Abuse Patient Records regulations: The Federal rules restrict any use of the information to criminally investigate or prosecute any alcohol or drug abuse patient.[place]healthIn the event this information is protected by the Federal Confidentiality of Alcohol and Drug Abuse Patient Records regulations: The Federal rules restrict any use of the information to criminally investigate or prosecute any alcohol or drug abuse patient.[place]healthIn the event this information is protected by the Federal Confidentiality of Alcohol and Drug Abuse Patient Records regulations: The Federal rules restrict any use of the information to criminally investigate or prosecute any alcohol or drug abuse patient.[place]healthIn the event this information is protected by the Federal Confidentiality of Alcohol and Drug Abuse Patient Records regulations: The Federal rules restrict any use of the information to criminally investigate or prosecute any alcohol or drug abuse patient.[place]healthIn the event this information is protected by the Federal Confidentiality of Alcohol and Drug Abuse Patient Records regulations: The Federal rules restrict any use of the information to criminally investigate or prosecute any alcohol or drug abuse patient.[place]healthIn the event this information is protected by the Federal Confidentiality of Alcohol and Drug Abuse Patient Records regulations: The Federal rules restrict any use of the information to criminally investigate or prosecute any alcohol or drug abuse patient.[place]healthIn the event this information is protected by the Federal Confidentiality of Alcohol and Drug Abuse Patient Records regulations: The Federal rules restrict any use of the information to criminally investigate or prosecute any alcohol or drug abuse patient.[place]healthIn the event this information is protected by the Federal Confidentiality of Alcohol and Drug Abuse Patient Records regulations: The Federal rules restrict any use of the information to criminally investigate or prosecute any alcohol or drug abuse patient.[place]healthIn the event this information is protected by the Federal Confidentiality of Alcohol and Drug Abuse Patient Records regulations: The Federal rules restrict any use of the information to criminally investigate or prosecute any alcohol or drug abuse patient.[place]healthIn the event this information is protected by the Federal Confidentiality of Alcohol and Drug Abuse Patient Records regulations: The Federal rules restrict any use of the information to criminally investigate or prosecute any alcohol or drug abuse patient.[place]healthIn the event this information is protected by the Federal Confidentiality of Alcohol and Drug Abuse Patient Records regulations: The Federal rules restrict any use of the information to criminally investigate or prosecute any alcohol or drug abuse patient.[place]healthIn the event this information is protected by the Federal Confidentiality of Alcohol and Drug Abuse Patient Records regulations: The Federal rules restrict any use of the information to criminally investigate or prosecute any alcohol or drug abuse patient.[facility] Reason for Visit (unrecogniz ed section and content) Reason Comments Radiology MRI Specialty Diagnoses / Procedures Referred By Contac Referred To Contact ADMITTING Diagnoses Benign neoplasm of meninges (HCC) Procedures RADIATION DELIVERY STEREOTACTIC CRANIAL COBALT STEREOTACTIC RADIOSURGERY 1 COMPLEX CRANIAL LES RADIATION [place] STEREOTACTIC RADIOSURGERY (SRS) TX CRANIAL LESION(S) 1 SESSION MULTI-SOURCE COBALT STEREOTACTIC RADIOSURGERY 1 COMPLEX CRANIAL LESION [facility] [address] [address] Referral ID Status Reason Start Date Expiration Date Visits Re quested Visits Authorized [id number] [address] Specialty Diagnoses / Procedures [facility] To Contact ADMITTING Diagnoses Benign neoplasm of meninges (HCC) Procedures RADIATION DELIVERY STEREOTACTIC CRANIAL COBALT STEREOTACTIC RADIOSURGERY 1 COMPLEX CRANIAL LES RADIATION [place] STEREOTACTIC RADIOSURGERY (SRS) TX CRANIAL LESION(S) 1 SESSION MULTI-SOURCE COBALT STEREOTACTIC RADIOSURGERY 1 COMPLEX CRANIAL LESION [facility] [address] [address] Reason Comments Recheck Reason Comments 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 - Other Reason Comments Established Patient Reason Comments Established Patient Reason Comments Recheck Reason Comments Consult GK consult for LF me ningioma Reason Comments 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 - 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 Reason Comments Procedure GKRS Reason Comments Radiology MRI Specialty Diagnoses / Procedures [facility] Referred To Contact MR IMAGING Diagnoses 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) New daily persistent headache Other headache syndrome Procedures MRI BRAIN WO/W IVCON MRI BRAIN BRAIN STEM W/O W/[place] [address] [place] [address] Mr Imaging [id number] Referral ID Status Reason Start Date Expiration Date V isits Requested Visits Authorized [id number] Closed Auto-Generate d Referral 04/29/2021 06/13/2021 1 1 Specialty Diagnoses / Procedures Referred By Contac t Referred To Contact MR IMAGING Diagnoses Benign neoplasm of meninges (HCC) Procedures MRI BRAIN WO/W IVCON MRI BRAIN BRAIN STEM W/O W/[place] [address] [place] [address] Mr Imaging [id number] Referral ID Status Reason Start Date Expiration Date V isits Requested Visits Authorized [id number] Closed Auto-Generate d Referral 06/21/2021 09/18/2021 1 1 Specialty Diagnoses / Procedures Referred By Contac t Referred To Contact MR IMAGING Diagnoses 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) Liver lesion Procedures MRI LIVER WO/W IVCON MRI ABDOMEN W/O & W/[place] [address] [place] [address] Mr Imaging [id number] Referral ID Status Reason Start Date Expiration Date V isits Requested Visits Authorized [id number] Closed Auto-Generate d Referral 05/20/2021 07/11/2021 1 1 Specialty Diagnoses / Procedures Referred By Contac t Referred To Contact MR IMAGING Diagnoses Benign neoplasm of meninges (HCC) Procedures MRI BRAIN WO/W IVCON MRI BRAIN BRAIN STEM W/O W/CONTRAST MATERIAL Trista Bonilla APRN.[employer] [address] [place] [address] Mr Imaging [id number] Referral ID Status Reason Start Date Expiration Date V isits Requested Visits Authorized [id number] Closed Auto-Generate d Referral 08/29/2022 03/31/2023 1 1 Referral ID Status Reason Start Date Expiration Date V isits Requested Visits Authorized [id number] Closed Auto-Generate d Referral 08/23/2021 03/20/2022 1 1 Reason Comments Gamma Knife Follow-up Reason Comments Appointment [place] Reason Comments Established Patient Follow-Up INFORMATION SOURCE (unrecogn ized section and content) DATE CREATED AUTHOR 06/10/2022 [facility] DATE CREATED AUTHOR AUTHOR'S ORGANIZ ATION 02/04/2023 [facility] DATE CREATED AUTHOR AUTHOR'S ORGANIZ ATION 03/30/2023 [facility] ical [facility] DATE CREATED AUTHOR AUTHOR'S ORGANIZ ATION 06/05/2023 [facility] DATE CREATED AUTHOR AUTHOR'S ORGANIZ ATION 06/08/2023 [facility] DATE CREATED AUTHOR AUTHOR'S ORGANIZ ATION 06/16/2023 [facility] Care Teams (unrecognized sec tion and content) 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 Start Date End Date Lissett Vega MD [address] [facility] [place] [id number] PCP - General Family Medicine 01/17/23 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 Start Date End Date Lissett Vega MD [address] [facility] [place] [id number] PCP - General Family Medicine 01/17/23 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 Start Date End Date Lissett Vega MD [address] [facility] [place] [id number] PCP - General Family Medicine 01/17/23 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 Start Date End Date Lissett Vega MD [address] [facility] [place] [id number] PCP - General Family Medicine 01/17/23 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 Start Date End Date Lissett Vega MD [address] [facility] [place] [id number] PCP - General Family Medicine 01/17/23 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 Start Date End Date Lissett Vega MD [address] [facility] [place] [id number] PCP - General Family Medicine 01/17/23 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 Start Date End Date Lissett Vega MD [address] [facility] [place] [id number] PCP - General Family Medicine 01/17/23 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 Start Date End Date Lissett Vega MD [address] [facility] [place] [id number] PCP - General Family Medicine 01/17/23 Team Status: Active Member Role Status Dates Lissett Vega MD Primary Care Provider Active Team Status: Inactive Member Role Status Dates Lissett Vega MD Primary Care Provider Active Start: June 05, 2023 End: June 05, 2023 Jes Vieira MD Attending Provider Active Sta rt: June 05, 2023 End: June 05, 2023 Team Status: Inactive Member Role Status Dates Lissett Vega MD Primary Care Provide r, Attending Provider Active Start: July 03, 2023 End: July 03, 2023 Goals (unrecognized section and content) Goals may be documented in a n alternate section FOR RECORDS PERTAINING TO PATIENTS WHO ARE [...] BE BASED ON THE PRIMARY CLINICAL RECORDS. [facility] [employer] [facility]. provides no warranty or guarantee of the accuracy or completeness of information in this document.
== END 2023-09-01 09:51 | disposition home or self-care (01) ==
LOC: EC 09:50
PROVIDERS: PCP Family Medicine; Visit Provider Podiatrist Foot & Ankle Surgery
DX: M25.572 Pain in left ankle and joints of left foot (principal); M79.672 Pain in left foot; Z98.890 Other specified postprocedural states
CPT/HCPCS: 73610; 73630

== ENCOUNTER 2023-09-05 21:24 | Outpatient (REF) | payer OTHER, SELFPAY ==
--- OUTSIDE RECORDS SUMMARY | 2023-09-05 21:30 | XMS_ITS | CCD ---
Author Organization [facility] Care Team Providers Care Filing And Polishing Supervisor Name Role Phone Unavailable Primary Care Provider Jacqueline VEGA, DR LISSETT Fung Admitting Unavailable GARY, DR LISSETT Fung Attending Unavailable GARY, DR LISSETT Fung Primary Care Unavailable [facility], DR MONCADA Consulting Unavailable GARY, DR LISSETT [...] e WEST, DR ZHANNA Judd Consulting Unavailable AGRY, DR LISSETT Fung Admitting Unavailable GARY, DR [...] Care Provider MD Jes Vieira Attending Provider Allergies Allergy Classification Reported Allergen(s) Allergy Type Date of Onset Reaction(s) Facility (5 sources) patient allergy list reviewed by nurse or physicia Propensity to adverse reactions 7 Comment:Done [employer] Other (5 sources) Allergies Reconciled Propensity to adverse reactions Unknown [employer] Other (1 source) No Known Medication Allergies; Translations: [No Known Medication Allergies] Propensity to adverse reactions (disorder) [facility] Repository Medications Current Medications Medication Drug Class(es) [...] Gary Fung take 1 capsule by mo [facility] every twenty-four hours Flomax 0.4 MG 1 [...] Test Name Value Interpretation Reference Range Facility [facility] 06-13-2023 [facility] Visit (SP) Office (HEMCA3) ----- BEN CRUZ ([id number]) 1975 F Date Time Provider Department 06/13/23 9:30 AM DEBBIE ECHEVERRIA HEMCA3 During your visit today, we recorded the following information about you: Temperature Pulse Respiration Blood pressure 97.6 degrees 79/minute 20/minute 142/92 Weight 95.8 kg Nicole Beal MD 06/14/2023 3:36 PM Addendum [facility] GASTROENTEROLOGY ONCOLOGY ESTABLISHED PATIENT VISIT PATIENT [...] no new issues and last visit with customer orders clerk was about 6 months ago. She denies [...] Lymph 1.00 - 4.00 k/uL 2.12 Abs Douglas <0.87 k/uL 0.72 Abs Eosin <0.46 k/uL [...] 6 months - recommend follow up with customer orders clerk Patient seen and discussed with Gastroenterology Oncology [...] beckwith co (more content not included)... Normal [facility] ECG 12 lead ECGon 06-05-2023 ECG 12 lead [place] [address] Electrocardiograph Report Signed Patient: Ben Cruz MR#: [id number] 3 : 1975 Acct:[id number] Age/Sex: 47 / F ADM Date: 06/05/23 Loc: EKGCARDIO Room: Type: [facility] Attending Dr: Jes Vieira MD Ordering Provider: Jse Vieira MD Date of Service: 06/05/2307/25/1308 ECG/ECG [...] previous ECGs available Confirmed by Demetri Shah ([id number]) on 06/07/2023 7:37:06 PM Referred By: Electronically Signed By:Demetri Shah Transcribed By: MUS Signed By Demetri Shah MD 06/07/231936 [facility] CNCOon 05-12-2023 CNCO Letter Text [facility] CNPNon 05-12-2023 CNPN Telephone (NSCAMN) ----- BEN CRUZ ([id number]) 1975 F Date Time Provider Department 05/12/23 GURPREET BECKWITH [facility] During your visit today, we recorded the following information about you: Marli Patino 05/12/2023 9:28 AM Signed Per Johann BIRD)-via email: This patient had GK in January and their follow up MRI and appointment was never scheduled. She needs an MRI at [facility] and follow up same day [...] Encounter Status:Closed by MARLI PATINO on 05/12/23 [facility] Louise 05-11-2023 CNPN Telephone (NSCAMN) ----- BEN CRUZ ([id number]) 1975 F Date Time Provider Department 05/11/23 [...] Status:Closed by JOHANN HENRIQUEZ on 05/11/23 Normal [facility] Outside Colonoscopyon 2022 Outside Colonoscopy [id number] Normal [facility] Reminderson 03-09-2023 Reminders - From: Veronica Jack LPN To: GSN - Clinical; Sent: 03/09/2023 13:42:54 EST Show up: 02/06/2033 07:00:00 EST Subject: colonoscopy recall Due Date/Time: 03/08/2033 07:00:00 EST Reminder/Recall Patient due for screening colonoscopy 03/08/2033. Normal [facility] Consent for Procedure/Surger yonatacha 02-21-2023 Consent for Procedure/Surgery [id number]#[id number] [facility] Facesheeton 02-20-2023 Facesheet [id number]#[id number] [facility] Ambulatory Visit Summaryon 1 04-19-2022 Ambulatory Visit [...] you for choosing us for your care. [facility]23 [facility] Telephone (NSCAMN) ----- BEN CRUZ ([id number]) 1975 F Date Time Provider Department 02/07/23 JOHANN HENRIQUEZ [facility] During your visit today, we recorded the [...] Encounter Status:Closed by JOHANN HENRIQUEZ on 02/07/23 [facility]-06[facility]20[facility] ----- BEN CRUZ ([id number]) 1975 F Date Time Provider Department 02/06/23 JOHANN HENRIQUEZ [facility] During your visit today, we recorded the following information about you: Johann Henriquez RN 02/06/2023 1:20 PM Signed Calling Ben for post-GKRS follow-up. Unable to reach at this time. Left voicemail. Johann Henriquez RN 02/07/2023 1:19 PM Signed 2nd attempt to reach out, patient unavailable. Will send [employer] message with contact information to call if [...] Encounter Status:Closed by JOHANN HENRIQUEZ on 02/07/23 [facility] CNOPon 01-27-2023 CNOP Operative Note (Enc) (NSCAMN) ----- Encounter Status:Closed by GURPREET BECKWITH on 01/27/23 Normal [facility] CNOP Operative Note (Enc) (NSCAMN) ----- Encounter Status:Closed by GURPREET BECKWITH on 01/27/23 Normal [facility] CNOVon 01-27-2023 CNOV Office Visit (NSCAMN ) ----- BEN CRUZ ([id number]) 1975 F Date Time Provider Department 01/27/23 [...] 7.1 [place] (more content not included)... Normal [facility] CNOV Office Visit (NOGKCA ) ----- BEN RCUZ ([id number]) 1975 F Date Time Provider Department 01/27/23 8:30 AM MASK PLACEMENT [facility] During your visit today, we recorded [...] Patient's Age: 47 Menstruation Status: Hysterectomy 2019 [facility] Results: N/A test not performed QC: Yes, [...] Segura Kaitlin, RN 01/27/2023 8:35 AM Addendum [facility] Gamma Knife Center Discharge Instructions As with [...] a physician or hospital other than the [facility] with any problem related to [...] may your physician, Dr. Virgil Beckwith at [phone] Monday through Monday 8:00 am to 5:00 pm, or call the Gamma Knife nurse Monday through Monday 8:00 am to 4:00 pm at [phone]. In the evening or on weekends, call [phone] or toll-free [phone]-CARE and ask the skidder lever operator to page your neurosurgeon's resident client relationship manager. Referring Provider: GURPREET BECKWITH [[id number]] Allergies [...] [D32.9] 01/27/2023 Other instructions from your clinician: [facility] Gamma Knife Center Discharge Instructions As with any surgery there are risks and potential side effects. Th (more content not included)... Normal [facility] CT BRAIN WO IVCONon 01-28-20 23 [...] were required COMPARISON: Concurrent brain MRI RESULT: Weights And Measures Sealer (topogram) images: No additional findings. Post-operative change: [...] OF EXTRA-AXIAL ENHANCING TISSUE SEEN ON MRI Clinical Trial Educator: [facility] Transcribe Date/Time: Jan 27 2023 8:21A Dictated by : ESTUARDO WHALEY MD This examination was interpreted and the report reviewed and electronically signed by: ESTUARDO WHALEY MD on Jan 27 2023 8:23AM EST [id number] Normal [facility] MRI BRAIN LOCAL W IVCONon MRI [...] FRONTAL LOBE, UNCHANGED GOING BACK TO 06/01/2021 Clinical Trial Educator: TORI Transcribe Date/Time: Jan 27 2023 8:08A Dictated by : ESTUARDO WHALEY MD This examination was interpreted and the report reviewed and electronically signed by: ESTUARDO WHALEY MD on Jan 27 2023 8:20AM EST [id number] Normal [facility] MRI BRAIN LOCALIZATION W IVC ONon 01-27-2023 [facility] Physician Referralon 023 Physician Referral [id number] Normal [facility] Physician Referralon 023 Physician Referral [id number]#[id number] Normal [facility] CNOVSPon 12-22-2022 CNOVSP Visit (SP) Office (HEMCA3) ----- BEN CRUZ ([id number]) 1975 F Date Time Provider Department 12/22/22 [...] were negative. Declined an adjuvant trial in [place]. Baseline imaging today is negative CC: Melanoma [...] No Does patient want to see a Cadd Instructor? No (yes to any of above refer [...] for Encounter Date Provider Department Center 12/22/2022 [id number] ECHEVERRIA HEMCA3 [place] Prescriptions as [...] No Does patient want to see a Cadd Instructor? No (yes to any of above refer patient to schedulers for dietitian appointment) ) Does patient have any new or increased numbness or tingling of extremities? No Is patient interested in fertility information? No Does patient need any prescription refills? No Does patient have an advanced directive in place? No, Patient refused referral to Social Work or Resource Center [facility] 11-15-2022 [facility] Telephone (NSCAMN) ----- BEN CRUZ ([id number]) 1975 F Date Time Provider Department 11/15/22 BETZY HEARD [facility] During your visit today, we recorded the following information about you: Betzy Heard RN 11/15/2022 2:04 PM Signed Calling Ben to follow up on [employer] message about scheduling gamma knife for 01/27/2023 No answer, left message stating that I'll go ahead and place the GK orders. Reminded to disregard [facility], any automated text reminders or automated phone calls for 01/27/23 She will receive a call from the GK nurse or radiation therapist the day before with her arrival time. If she has any questions, I left office phone # for call back or she can send a [employer] message. I will send out a GK folder with additional information related to Mask Based Gamma Knife Radiosurgery Betzy Kompan RN, BSN Tailor Women[employer]S Garment Alteration [facility] Allergies As of Date: 11/15/2022 (No Known Allergies) Date Reviewed: 10/19/2022 Reviewed by: Trista Bonilla APRN.[employer] - Fully Assessed Reason for Visit: T[employer]teration - Other [3602] Cmt: Schedule gamma knife 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 Prescriptions as of 11/15/2022 - meloxicam (MOBIC) 15 mg tablet - inclisiran (LEQVIO) 284 mg/1.5 mL injection - omeprazole (PRILOSEC) 20 mg capsule Take 20 mg by mouth once daily. Problem List As Of Date: 11/15/2022 (None) Encounter Status:Closed by [facility]Y [facility]ARD [facility] ([facility]N) ----- BEN CRUZ ([id number]) 1975 F Date Time Provider Department 10/20/22 [address] [facility] During your visit today, we recorded the following information about you: Betzy Heard RN 10/20/2022 11:56 AM Signed Time Frame: As soon as can be scheduled - can be virtual or in clinic Orders: n/a Provider: Tang Referring: Pelon Diagnosis: meningioma Allergies As of Date: 10/20/2022 (No Known Allergies) Date Reviewed: 10/19/2022 Reviewed by: Trista Bonilla APRN.[employer] - Fully Assessed Reason for Visit: GIN - new pt consult with Dr. Beckwith [Other] Prescriptions as of 11/10/2022 - meloxicam (MOBIC) 15 mg tablet - inclisiran (LEQVIO) 284 mg/1.5 mL injection - omeprazole (PRILOSEC) 20 mg capsule Take 20 mg by mouth once daily. Problem List As Of Date: 10/20/2022 (None) Encounter Status:Closed by AMIEBETZY RODRIGUEZ on 11/10/22 Normal [facility] MRI BRAIN WO/W IVCONon 10-17 MRI [...] with air-fluid level suggestive of acute/active sinusitis. Clinical Trial Educator: TORI Transcribe Date/Time: Oct 17 2022 11:35A Dictated by : CHUCKY BRAY MD This examination was interpreted and the report reviewed and electronically signed by: CHUCKY BRAY MD on Oct 17 2022 11:45AM EST [id number] Normal [facility] Complete Blood Count Auto Di ffon 09-12-2022 Basophils (Bld) [#/Vol] 0.1 10*3/uL Normal 0.0-0.2 [facility] Comment on above: Result Comment: PERF ORMED BY: [place] [address] PATHOLOGIST STRIP CUTTING MACHINE OPERATOR ARNULFO STYLES M.D. Performed By: #### C BC #### [address] Basophils/100 WBC (Bld) 0.7 % Normal . [facility] Comment on above: Performed By: #### C BC #### [address] Eosinophils (Bld) [#/Vol] 0.2 10*3/uL Normal 0.0-0.45 [facility] Comment on above: Performed By: #### C BC #### [address] Eosinophils/100 WBC (Bld) 2.7 % Normal . [facility] Comment on above: Performed By: #### C BC #### [address] Erythrocyte distribution width (RBC) [Ratio] 12.9 % Normal 11.9-15.3 [facility] Comment on above: Performed By: #### C BC #### [address] Hematocrit (Bld) [Volume fraction] 41.8 % Normal 34.0-46.4 [facility] Comment on above: Performed By: #### C BC #### [address] Hemoglobin (Bld) [Mass/Vol] 14.3 g/dL Normal 11.8-15.4 [facility] Comment on above: Performed By: #### C BC #### [place] [id number] [place] Lymphocytes (Bld) [#/Vol] 2.0 10*3/uL Normal 1.00-4.8 [facility] Comment on above: Performed By: #### C BC #### [address] Lymphocytes/100 WBC (Bld) 25.3 % Normal . [facility] Comment on above: Performed By: #### C BC #### [address] MCH (RBC) [Entitic mass] 29.8 pg Normal 24.7-34.3 [facility] Comment on above: Performed By: #### C BC #### [address] MCV (RBC) [Entitic vol] 87.2 fL Normal 80-100 [facility] Comment on above: Performed By: #### C BC #### [address] Mean Corpuscular HGB Conc 34.2 g/dL Normal 32.0-35.0 [facility] Comment on above: Performed By: #### C BC #### [address] Monocytes (Bld) [#/Vol] 0.7 10*3/uL Normal 0.0-0.8 [facility] Comment on above: Performed By: #### C BC #### [address] Monocytes/100 WBC (Bld) 9.1 % Normal . [facility] Comment on above: Performed By: #### C BC #### [address] Neutrophils (Bld) [#/Vol] 4.8 10*3/uL Normal 1.8-7.7 [facility] Comment on above: Performed By: #### C BC #### [address] Neutrophils/100 WBC (Bld) 62.2 % Normal . [facility] Comment on above: Performed By: #### C BC #### [facility] [address] NRBC% 0.4 /100{WBC} Normal 0-0.5 [facility] Comment on above: Performed By: #### C BC #### [facility] [address] Platelet mean volume (Bld) [Entitic vol] 7.5 fL Normal 6.3-10.7 [facility] Comment on above: Performed By: #### C BC #### [facility] [address] Platelets (Bld) [#/Vol] 225 10*3/uL Normal 150-450 [facility] Comment on above: Performed By: #### C BC #### [address] RBC (Bld) [#/Vol] 4.80 10*6/uL Normal 3.60-5.00 [facility] Comment on above: Performed By: #### C BC #### [facility] [address] WBC (Bld) [#/Vol] 7.7 10*3/uL Normal 3.8-11.6 [facility] Comment on above: Performed By: #### C BC #### [place] [address] [place] XR chest 2V*on 09-12-2022 XR chest 2V* [facility] [place] [address] [place] [address] XRay Report Signed Patient: Ben Cruz MR#: [id number] 3 : 1975 Acct:[id number] Age/Sex: 47 / F ADM Date: 09/12/22 Loc: [place] Room: Type: [facility] [...] M.D.09/12/2022 4:53 PM Dictation Location: [place] [address] Transcribed By: [facility] 09/12/221652 Dictated By: Florentino Woods II, MD 09/12/221651 Signed By: 09/12/221652 [facility] Louise 08-31-2022 [place] Telephone (RADRMN) ----- BEN CRUZ ([id number]) 1975 F Date Time Provider Department 08/31/22 LUIS LICONA During your visit today, we recorded the following information about you: Adriana Brown 08/31/2022 4:12 PM Signed Patient called in to ask for a prescription of Atavan sent to her local [facility] prior to her scheduled MRI on 09/05. Prescription should be sent to the [facility] in [place] on [facility]. [facility] [phone] [place] [address] Trista Bonilla APRN.[employer] 08/31/2022 4:35 PM Signed Ativan sent to preferred pharmacy per patient request prior to MRI. PDMP website checked and validated. All prescriptions have been APPROPRIATELY filled. No suspicious activity was identified. 08/31/2022 by Trista Bonilla APRN.[employer] Allergies As of Date: 08/31/2022 (No Known Allergies) Date Reviewed: 08/31/2022 Reviewed by: Trista Bonilla APRN.[employer] - Fully Assessed Reason for Visit: Tailor Women'S Garment Alteration - Other [9872] Visit Diagnosis:Malignant melanoma of torso excluding breast [...] Encounter Status:Closed by TRISTA BONILLA on 08/31/22 [facility] CNOVSPon 06-21-2022 OVS Visit (SP) Office (HEMCA3) ----- BEN CRUZ ([id number]) 1975 F Date Time Provider Department 06/21/22 10:30 AM DEBBIE ECHEVERRIA HEMIN3 During your visit today, we recorded the [...] No Does patient want to see a Cadd Instructor? No (yes to any of above refer [...] were negative. Declined an adjuvant trial in [place]. Baseline imaging today is negative CC: Melanoma [...] with more than 50% of the total nnpn-pv-adab time of the visit in counseling / coordination of care. Debbie Echeverria MD Referring Provider: DEBBIE ECHEVERRIA [[id number]] Allergies As of Date: 06/21/2022 (No Known [...] for Encounter Date Provider Department Center 06/21/2022 [id number] ECHEVERRIA HEMCA3 [place] Prescriptions as [...] No Does patient want to see a Cadd Instructor? No (yes to any of above refer [...] Status:Closed by DEBBIE ECHEVERRIA on 06/21/22 Normal [facility] MRI BRAIN WO/W IVCONon 02-23 [facility] CBC AUTO DIFFon 11-18-2021 BASO # 0.0 103/ul Normal 0.0-0.1 [facility] Comment on above: Performed By: #### H FPFCBC #### [facility] [address] [place] [address] Dr. Arcenio Billy Basophils/100 WBC (Bld) 0.4 % Normal 0.2-2.0 [facility] Comment on above: Performed By: #### H FPFCBC #### [facility] [address] [place] [address] Dr. Arcenio Billy EO # 0.2 103/ul Normal 0.0-0.7 [facility] Comment on above: Performed By: #### H FPFCBC #### [facility] [address] [place] [address] Dr. Arcenio Billy Eosinophils/100 WBC (Bld) 3.0 % Normal 0.9-7.0 [facility] Comment on above: Performed By: #### H FPFCBC #### [facility] [address] [place] [address] Dr. Arcenio Billy Erythrocyte distribution width (RBC) [Ratio] 12.1 % Normal 11.0-15.0 [facility] Comment on above: Performed By: #### H FPFCBC #### [facility] [address] [place] [address] Dr. Arcenio Billy Hematocrit (Bld) [Volume fraction] 43.1 % Normal 36.0-48.0 [facility] Comment on above: Performed By: #### H FPFCBC #### [facility] [address] [place] [address] Dr. Arcenio Billy Hemoglobin (Bld) [Mass/Vol] 14.1 g/dL Normal 12.0-16.0 [facility] Comment on above: Performed By: #### H FPFCBC #### [facility] [address] [place] [address] Dr. Arcenio Billy IG # 0.01 10e3/ul Normal 0.00-0.03 [facility] Comment on above: Performed By: #### H FPFCBC #### [facility] [address] [place] [address] Dr. Arcenio Billy IG % 0.2 % Normal 0.0-0.5 [facility] Comment on above: Performed By: #### H FPFCBC #### [facility] [address] [place] [address] Dr. Arcenio Billy LYMPH # 1.9 103/ul Normal 1.2-3.8 [facility] Comment on above: Performed By: #### H FPFCBC #### [facility] [address] [place] [address] Dr. Arcenio Billy Lymphocytes/100 WBC (Bld) 35.7 % Normal 20.5-60.0 [facility] Comment on above: Performed By: #### H FPFCBC #### [facility] [address] [place] [address] [address] Arcenio Billy MCH (RBC) [Entitic mass] 28.8 pg Normal 26.7-34.0 [facility] Comment on above: Performed By: #### H FPFCBC #### [facility] [address] [place] [address] Dr. Arcenio Billy MCHC (RBC) [Mass/Vol] 32.7 g/dL Normal 29.9-35.2 [facility] Comment on above: Performed By: #### H FPFCBC #### [facility] [address] [place] [address] Dr. Arcenio Billy MCV (RBC) [Entitic vol] 88.1 fL Normal 81.0-99.0 [facility] Comment on above: Performed By: #### H FPFCBC #### [facility] [address] [place] [address] Dr. Arcenio Billy MONO # 0.5 103/ul Normal 0.3-0.8 [facility] Comment on above: Performed By: #### H FPFCBC #### [facility] [address] [place] [address] Dr. Arcenio Billy Monocytes/100 WBC (Bld) 9.9 % Normal 1.7-12.0 [facility] Comment on above: Performed By: #### H FPFCBC #### [facility] [address] [place] [address] Dr. Arcenio Billy NEUT # 2.7 103/ul Normal 1.4-6.5 [facility] Comment on above: Performed By: #### H FPFCBC #### [facility] [address] [place] [address] Dr. Arcenio Billy Neutrophils/100 WBC (Bld) 50.8 % Normal 43.0-75.0 [facility] Comment on above: Performed By: #### H FPFCBC #### [facility] [address] [place] [address] Dr. Arcenio Billy Platelet mean volume (Bld) [Entitic vol] 8.9 fL Critically low 9.5-13.5 [facility] Comment on above: Performed By: #### H FPFCBC #### [facility] [address] [place] [address] Dr. Arcenio Billy PLT 271 103/ul Normal 150-450 [facility] Comment on above: Performed By: #### H FPFCBC #### [facility] [address] [place] [address] Dr. Arcenio Billy RBC 4.89 106/ul Normal 4.20-5.40 [facility] Comment on above: Performed By: #### H FPFCBC #### [facility] [address] [place] [address] Dr. Arcenio Billy WBC 5.3 103/ul Normal 4.0-11.0 [facility] Comment on above: Performed By: #### H FPFCBC #### [facility] [address] [place] [address] Dr. Arcenio Billy [facility]FILE[facility] 022 Albumin [Mass/Vol] 3.7 g/dL Normal 3.4-5.0 [facility] Comment on above: Performed By: #### H FPF #### [facility] [address] [place] [address] Dr. Arcenio Billy Albumin/Globulin [Mass ratio] 1.1 {ratio} Normal [facility] Comment on above: Performed By: #### H FPF #### [facility] [address] [place] [address] Dr. Arcenio Billy ALP [Catalytic activity/Vol] 60 U/L Normal 46-116 [facility] Comment on above: Performed By: #### H FPF #### [facility] [address] [place] [address] Dr. Arcenio Billy ALT [Catalytic activity/Vol] 47 U/L Normal 14-59 [facility] Comment on above: Performed By: #### H FPF #### [facility] [address] [place] [address] Dr. Arcenio Billy AST [Catalytic activity/Vol] 25 U/L Normal 15-37 [facility] Comment on above: Performed By: #### H FPF #### [facility] [address] [address] [address] Arcenio Billy Bilirubin [Mass/Vol] 0.5 mg/dL Normal 0.2-1.0 [facility] Comment on above: Performed By: #### H FPF #### [facility] [address] [address] [address] Arcenio iBlly Calcium [Mass/Vol] 8.8 mg/dL Normal 8.5-10.1 [facility] Comment on above: Performed By: #### H FPF #### [facility] [address] [address] [address] Arcenio Billy Chloride [Moles/Vol] 103 mmol/L Normal 98-107 [facility] Comment on above: Performed By: #### H FPF #### [facility] [address] [place] [address] Dr. Arcenio Billy CHOL-HDL RATIO NORM SEE BELOW Normal [facility] Comment on above: Result Comment: 3.3 - 4.4 LOW RISK 4.4 - 7.1 AVERAGE RISK 7.1 - 11.0 MODERATE RISK >11.0 HIGH RISK Performed By: #### H FPF #### [facility] [address] [place] [address] Dr. Arcenio Billy Cholesterol [Mass/Vol] 352 mg/dL Critically high <=200 [facility] Comment on above: Performed By: #### H FPF #### [facility] [address] [address] [address] Arcenio Billy Cholesterol in HDL [Mass/Vol] 34 mg/dL Critically low 40-60 [facility] Comment on above: Performed By: #### H FPF #### [facility] [address] [place] [address] Dr. Arcenio Billy Cholesterol in LDL [Mass/Vol] 274.2 mg/dL Normal [facility] Comment on above: Performed By: #### H FPF #### [facility] [address] [address] [address] Arcenio Billy Cholesterol.total/ Cholesterol in HDL [Mass ratio] 10.4 {ratio} Normal [facility] Comment on above: Performed By: #### H FPF #### [facility] [address] [address] [address] Arcenio Billy CO2 [Moles/Vol] 25.7 mmol/L Normal 21.0-32.0 [facility] Comment on above: Performed By: #### H FPF #### [facility] [address] [place] [address] Dr. Arcenio Billy Creatinine [Mass/Vol] 0.91 mg/dL Normal 0.55-1.02 [facility] Comment on above: Performed By: #### H FPF #### [facility] [address] [place] [address] Dr. Arcenio Blily Globulin (S) [Mass/Vol] 3.4 g/dL Normal [facility] Comment on above: Performed By: #### H FPF #### [facility] [address] [place] [address] Dr. Arcenio Billy Glucose [Mass/Vol] 91 mg/dL Normal 74-106 [facility] Comment on above: Performed By: #### H FPF #### [facility] [address] [place] [address] Dr. Arcenio Billy HDL NORMAL > or = 60 mg/dl - LO W CARDIOVASCULAR RISK <40 mg/dl - HIGH CARDIOVASCULAR RISK Normal [facility] Comment on above: Performed By: #### H FPF #### [facility] [address] [place] [address] Dr. Arcenio Billy LDL CALC NORMAL SEE BELOW Normal [facility] Comment on above: Result Comment: <100 mg/dl OPTIMAL 100 - 129 mg/dl NEAR OR ABOVE OPTIMAL 130 - 159 mg/dl BORDERLINE HIGH 160 - 189 mg/dl HIGH >190 mg/dl VERY HIGH Performed By: #### H FPF #### [facility] [address] [place] [address] Dr. Arcenio Billy Potassium [Moles/Vol] 4.1 mmol/L Normal 3.5-5.1 [facility] Comment on above: Performed By: #### H FPF #### [facility] [address] [address] [address] Arcenio Billy Protein [Mass/Vol] 7.1 g/dL Normal 6.4-8.2 [facility] Comment on above: Performed By: #### H FPF #### [facility] [address] [address] [address] Arcenio Billy Sodium [Moles/Vol] 139 mmol/L Normal 136-145 [facility] Comment on above: Performed By: #### H FPF #### [facility] [address] [address] [address] Arcenio Billy Triglyceride [Mass/Vol] 219 mg/dL Critically high <=150 [facility] Comment on above: Performed By: #### H FPF #### [facility] [address] [address] [address] Arcenio Billy TSH 1.717 uIU/mL Normal 0.358-3.740 [facility] Comment on above: Performed By: #### H FPF #### [facility] [address] [address] [address] Arcenio Billy Urea nitrogen [Mass/Vol] 11.0 mg/dL Normal 7.0-18.0 [facility] Comment on above: Performed By: #### H FPF #### [facility] [address] [address] [address] Arcenio Billy Urea nitrogen/Creatinin e [Mass ratio] 12.1 mg/mg Normal [facility] Comment on above: Performed By: #### H FPF #### [facility] [address] [address] [address] Arcenio Billy VLDL CALC 43.8 mg/dL Normal [facility] Comment on above: Performed By: #### H FPF #### [facility] [address] [address] [address] Arcenio Billy PAP ACOG PANEL 2: 30 to 65on 09-19-2021 . . Normal [facility] Comment on above: Result Comment: Perf ormed at: WB Performed By: #### [id number] #### [facility] [address] [place] [address] Dr. Arcenio Billy Age Gdln ACOG Testing 30-65 Normal [facility] Comment on above: Performed By: #### [id number] #### [facility] [address] [place] [address] Dr. Arcenio Billy DIAGNOSIS: Comment Normal [facility] Comment on above: Result Comment: NEGA TIVE FOR INTRAEPITHELIAL LESION OR MALIGNANCY. FUNGAL ORGANISMS MORPHOLOGICALLY CONSISTENT WITH MOSES SPECIES ARE PRESENT. Performed at: WB Performed By: #### [id number] #### [facility] [address] [place] [address] Dr. Arcenio Billy HPV Aptima Negative Normal Negative [facility] Comment on above: Result Comment: This nucleic acid amplification test detects fourteen high-risk HPV types (16,18,31,33,35,39,45,51,52,56,58,59,66,68) without differentiation. Performed at: =G Performed By: #### [id number] #### [facility] [address] [place] [address] Dr. Arcenio Billy Methodology: Comment Normal [facility] Comment on above: Result Comment: This liquid based ThinPrep(R) pap test was screened with the use of an image guided system. Performed at: WB Performed By: #### [id number] #### [facility] [address] [place] [address] Dr. Arcenio Billy Note: Comment Normal [facility] Comment on above: Result Comment: The Pap smear is a screening test designed to aid in the detection of premalignant and malignant conditions of the uterine cervix. It is not a diagnostic procedure and should not be used as the sole means of detecting cervical cancer. Both false-positive and false-negative reports do occur. . Performed at: WB Performed By: #### [id number] #### [facility] [address] [place] [address] Dr. Arcenio Billy Performed by: Comment Normal [facility] Comment on above: Result Comment: Bronson Cordero [employer] (ASCP) Performed at: WB Performed By: #### [id number] #### [facility] [address] [place], [place] [address] Dr. Arcenio Billy Specimen adequacy: Comment Normal [facility] Comment on above: Result Comment: Sati sfactory for evaluation. No endocervical component is identified. Performed at: WB Performed By: #### [id number] #### [facility] [address] [place], [place] [address] Dr. Arcenio Billy MG MAMM SCREEN 3D JULIO CÉSAR CADon 09-08-2021 MG MAMM SCREEN 3D JULIO CÉSAR CAD Patient: BNE CRUZ Exam Date: 09/08/2021 : 1975 Gender:F Ordering : DR CHELITA VILLANUEVA . Admission #: [id number] Family : Order #: [id number] CLICK HERE TO VIEW EXAM RADIOLOGY REPORT [...] pancreatic cancer at age 71. LOCATION: [facility] BREAST COMPOSITION: Scattered areas fibroglandular density. FINDINGS: [...] MD on 09/08/2021 at 11:41 Normal [facility] BRAIN WO/W IVCONon 08-23 [facility] MRI LIVER WO/W IVCONon 06-16 [facility] MRI BRAIN WO/W IVCONon 06-01 [facility] Vital Signs Date Time Vital Sign Value Performing Clinician Facility 07-03-2023 10:59-0400 Body height 162.56 cm MD Lissett Vega Work Phone: [facility] 06-13-2023 09:34-0400 Body temperature 97.59 [degF] Debbie Echeverria MD Work Phone: [facility] 06-13-2023 09:34-0400 Body weight 95.8 kg Debbie Echeverria MD Work Phone: [facility] 06-13-2023 09:34-0400 Diastolic blood pressure 92 mm[Hg] Debbie Echeverria MD Work Phone: [facility] 06-13-2023 09:34-0400 Heart rate 79 /min Debbie Echeverria MD Work Phone: [facility] 06-13-2023 09:34-0400 Respiratory rate 20 /min Debbie Echeverria MD Work Phone: [facility] 06-13-2023 09:34-0400 SaO2% (BldA) [Mass fraction] 96 % Debbie Echeverria MD Work Phone: [facility] 06-13-2023 09:34-0400 Systolic blood pressure 142 mm[Hg] Debbie Echeverria MD Work Phone: [facility] 06-05-2023 13:23-0500 Body height 162.56 cm MD Lissett Vega Work Phone: [facility] 06-05-2023 13:23-0500 Body mass index (BMI) [Ratio] 35.6 kg/m2 MD Lissett Vega Work Phone: [facility] 06-05-2023 13:23-0500 Body weight 94.34 kg MD Lissett Vega Work Phone: [facility] 06-05-2023 13:23-0500 Diastolic blood pressure 84 mm[Hg] MD Lissett Vega Work Phone: [facility] 06-05-2023 13:23-0500 Heart rate 88 /min MD Lissett Vega Work Phone: [facility] 06-05-2023 13:23-0500 Respiratory rate 18 /min MD Lissett Vega Work Phone: [facility] 06-05-2023 13:23-0500 SaO2% (BldA) [Mass fraction] 95 % MD Lissett Vega Work Phone: [facility] 06-05-2023 13:23-0500 Systolic blood pressure 122 mm[Hg] MD Lissett Vega Work Phone: [facility] 03-16-2023 13:45-0500 Body height 162.56 cm Lissett Vega Other [facility] Other 03-16-2023 13:45-0500 Body mass index (BMI) [Ratio] 34.5 kg/m2 Lissett Vega Other [facility] Other 03-16-2023 13:45-0500 Body temperature 99.1 [degF] Lissett Vega Other [facility] Other 03-16-2023 13:45-0500 Body weight 91.17 kg Lissett Vega Other [facility] Other 03-16-2023 13:45-0500 Diastolic blood pressure 88 mm[Hg] Lissett Vega Other [facility] Other 03-16-2023 13:45-0500 SaO2% (BldA) [Mass fraction] 98 % Lissett Vega Other [facility] Other 03-16-2023 13:45-0500 Systolic blood pressure 128 mm[Hg] Lsisett Vega Other [facility] Other 02-17-2023 14:47-0500 Blood Pressure Location Debbie DE LOS SANTOS [facility] [place] 02-17-2023 14:47-0500 Diastolic blood pressure 84 mm[Hg] Debbie DE LOS SANTOS [facility] [place] 02-17-2023 14:47-0500 Heart rate 76 /min Debbie HERNANDEZL [facility] [place] 02-17-2023 14:47-0500 Respiratory rate 16 /min Debbie HERNANDEZL [facility] [place] 02-17-2023 14:47-0500 Systolic blood pressure 128 mm[Hg] Debbie HERNANDEZL [facility] [place] 09-21-2022 11:30-0400 Body height 162.56 cm Lissett Vega Other [facility] Other 09-21-2022 11:30-0400 Body mass index (BMI) [Ratio] 36.56 kg/m2 Lissett Vgea Other [facility] Other 09-21-2022 11:30-0400 Body weight 96.62 kg Lissett Vega Other [facility] Other 09-21-2022 11:30-0400 Diastolic blood pressure 84 mm[Hg] Lissett Vega Other [facility] Other 09-21-2022 11:30-0400 Systolic blood pressure 137 mm[Hg] Lissett Vega Other [facility] Other 06-21-2022 10:32-0400 Body height 165 cm Debbie Echeverria MD Work Phone: [facility] 06-21-2022 10:32-0400 Body temperature 96.8 [degF] Debbie Echeverria MD Work Phone: [facility] 06-21-2022 10:32-0400 Body weight 98.79 kg Debbie Echeverria MD Work Phone: [facility] 06-21-2022 10:32-0400 Diastolic blood pressure 82 mm[Hg] Debbie Echeverria MD Work Phone: [facility] 06-21-2022 10:32-0400 Heart rate 74 /min Debbie Echeverria MD Work Phone: [facility] 06-21-2022 10:32-0400 Respiratory rate 18 /min Debbie Echeverria MD Work Phone: [facility] 06-21-2022 10:32-0400 SaO2% (BldA) [Mass fraction] 96 % Debbie Echeverria MD Work Phone: [facility] 06-21-2022 10:32-0400 Systolic blood pressure 139 mm[Hg] Debbie Echeverria MD Work Phone: [facility] 12-21-2021 13:24-0400 Body temperature 98.6 [degF] Debbie Echeverria MD Work Phone: [facility] 12-21-2021 13:24-0400 Body weight 102.15 kg Debbie Echeverria MD Work Phone: [facility] 12-21-2021 13:24-0400 Diastolic blood pressure 82 mm[Hg] Debbie Echeverria MD Work Phone: [facility] 12-21-2021 13:24-0400 Heart rate 79 /min Debbie Echeverria MD Work Phone: [facility] 12-21-2021 13:24-0400 Respiratory rate 20 /min Debbie Echeverria MD Work Phone: [facility] 12-21-2021 13:24-0400 SaO2% (BldA) [Mass fraction] 100 % Debbie Echeverria MD Work Phone: [facility] 12-21-2021 13:24-0400 Systolic blood pressure 145 mm[Hg] Debbie Echeverria MD Work Phone: [facility] Encounters Encounter Date Encounter Type Care Provider Facility Start: 07-03-2023 End: 07-03-2023 ambulatory MD Lissett Vega Work Phone: [facility] Work Phone: Start: 07-03-2023 End: 07-03-2023 Patient encounter procedure MD Lissett Vega Work Phone: [facility] Work Phone: Start: 06-13-2023 End: 06-13-2023 ambulatory DEBBIE ECHEVERRIA Facility:[facility] Start: 06-13-2023 End: 06-13-2023 ambulatory Debbie Echeverria MD Work Phone: Hematology/Oncology Comment on above: Malignant melanoma o f torso excluding breast (HCC) (Primary Dx) Start: 06-13-2023 End: 06-13-2023 Patient encounter procedure Debbie Echeverria MD Work Phone: [facility] Start: 06-05-2023 End: 06-05-2023 ambulatory Jes Vieira Facility:[facility] Start: 06-05-2023 End: 06-05-2023 Patient encounter procedure MD Lissett Vega Work Phone: [facility] Work Phone: Start: 06-05-2023 End: 06-05-2023 ambulatory VETO KIP Not Available Start: 06-02-2023 Patient encounter status MD Cristi Vega Work Phone: [facility] Start: 05-12-2023 Telephone encounter Gurpreet malin DO, PhD Work Phone: [facility] Comment on above: Appointment (Ce sheth) Start: 03-23-2023 End: 03-23-2023 ambulatory Lissett Vega Other [facility] Other Start: 03-23-2023 Telephone encounter Lissett Vega [facility] Start: 03-16-2023 End: 03-16-2023 ambulatory Lissett Vega Other [facility] Other Start: 03-16-2023 Office outpatient vi sit 15 minutes Lissett Vega [facility] Start: 03-08-2023 End: 03-09-2023 ambulatory Debbie HERNANDEZL Facility:[id number] Start: 02-17-2023 End: 02-18-2023 ambulatory Debbie R MARYL Facility:[facility] Start: 02-17-2023 End: 02-17-2023 Patient encounter procedure Debbie R NILL General Surgery [facility] Start: 02-07-2023 Telephone encounter Johann Henriquez RN [facility] Start: 02-06-2023 Telephone encounter Johann Henriquez RN [facility] Comment on above: Gamma Knife Follow-u p Start: 01-27-2023 End: 01-28-2023 Orders Only Gurpreet Beckwith DO, PhD Work Phone: Neurosurgery Comment on above: Benign neoplasm of m eninges (HCC) (Primary Dx) Benign neoplasm of m eninges (HCC) [D32.9] Start: 01-27-2023 Patient encounter procedure Burak Prakash MD Work Phone: [facility] Start: 01-27-2023 Radiation Oncology Note Susi Prakash MD Work Phone: [facility] Comment on above: Procedure Treatment Planning Start: 01-24-2023 ambulatory Debbie HERNANDEZL Facility:[facility] Start: 01-23-2023 End: 01-23-2023 ambulatory Lissett Vega Other [facility] Other Start: 01-23-2023 Telephone encounter Lissett Vega [facility] Start: 12-22-2022 End: 12-22-2022 ambulatory DEBBIE ECHEVERRIA Facility:[facility] Start: 11-15-2022 Telephone encounter Betzy liao RN Work Phone: [facility] Comment on above: [employer] (Schedule gamma knife 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/) Start: 11-04-2022 End: 11-04-2022 ambulatory Gurpreet Beckwith DO, PhD Work Phone: [facility] Comment on above: Benign neoplasm of m eninges (HCC) (Primary Dx) Start: 11-04-2022 End: 11-04-2022 Telemedicine consultation with patient Gurpreet Beckwith DO, PhD Work Phone: [facility] Start: 10-31-2022 End: 10-31-2022 ambulatory Lissett Gary Other [facility] Other Start: 10-31-2022 Telephone encounter Lissett Vega [facility] Start: 10-19-2022 End: 10-19-2022 ambulatory DEBBIE ECHEVERRIA Facility:[facility] Start: 10-19-2022 End: 10-19-2022 ambulatory Luis Licona MD Work Phone: Radiation Oncology Comment on above: Meningioma (HCC) (Pr imary Dx) Start: 10-19-2022 End: 10-19-2022 Telemedicine consultation with patient Luis Licona MD Work Phone: [facility] Start: 10-18-2022 End: 10-18-2022 ambulatory DEBBIE ECHEVERRIA Facility:[facility] Start: 10-18-2022 End: 10-18-2022 ambulatory Trista Bonilla APRN.[employer] Work Phone: Radiation Oncology Comment on above: Meningioma (HCC) (Pr imary Dx) Start: 10-18-2022 End: 10-18-2022 Telemedicine consultation with patient Trista Bonilla APRN.[employer] Work Phone: [facility] Start: 10-17-2022 End: 10-17-2022 ambulatory TRISTA BONILLA Facility:[facility] Start: 10-17-2022 End: 10-17-2022 Subsequent hospital visit by physician Mri [facility] (Lg Bore/1.5t) Radiology MRI Comment on above: Benign neoplasm of m eninges (HCC) [D32.9] Start: 09-23-2022 End: 09-23-2022 ambulatory Lissett Vega Other [facility] Other Start: 09-23-2022 Telephone encounter Lissett Gary [facility] Start: 09-21-2022 End: 09-21-2022 ambulatory Lissett Vega Other [facility] Other Start: 09-21-2022 Encounter for other preprocedural examination Lissett Vega [facility] Start: 09-21-2022 Office outpatient vi sit 25 minutes Lissett Vega [facility] Start: 09-12-2022 End: 09-12-2022 ambulatory Lissett Vega Facility:[facility] Start: 08-31-2022 Telephone encounter Luis osborn MD Work Phone: Radiation Oncology Comment on above: [employer] Start: 06-21-2022 End: 06-21-2022 ambulatory DEBBIE ECHEVERRIA Facility:[facility] Start: 06-21-2022 End: 06-21-2022 ambulatory Debbie Echeverria MD Work Phone: Hematology/Oncology Comment on above: Malignant melanoma o f torso excluding breast (HCC) (Primary Dx) Start: 06-21-2022 End: 06-21-2022 Patient encounter procedure Debbie Echeverria MD Work Phone: [facility] Start: 03-16-2022 End: 03-16-[address] LISSETT VEGA Facility: Start: 02-28-2022 End: 02-28-2022 ambulatory Trista Bonilla APRN.[employer] Work Phone: Radiation Oncology Comment on above: Benign neoplasm of m eninges (HCC) (Primary Dx) Start: 02-28-2022 End: 02-28-2022 Telemedicine consultation with patient Trista Bonilla APRN.[employer] Work Phone: [facility] Start: 02-23-2022 End: 02-23-2022 Subsequent hospital visit by physician Rangel [facility] (Lg Bore/1.5t) Radiology MRI Comment on above: Benign neoplasm of m eninges (HCC) [D32.9] Start: 12-21-2021 End: 12-21-2021 ambulatory Debbie Echeverria MD Work Phone: Hematology/Oncology Comment on above: Malignant melanoma o f torso excluding breast (HCC) (Primary Dx) Start: 12-21-2021 End: 12-21-2021 Patient encounter procedure Debbie Echeverria MD Work Phone: [facility] Start: 12-15-2021 End: 12-15-[address] LISSETT VEGA Facility:[facility] Start: 12-11-2021 Gynecological examin ation normal Lissett Vega Other [facility] Other Start: 12-01-2021 Telephone encounter Debbie Echeverria MD Work Phone: Hematology/Oncology Comment on above: [employer] Start: 11-18-2021 End: 11-19-2021 [...] with patient Luis Licona MD Work Phone: [facility] Start: 08-23-2021 End: 08-23-2021 Subsequent hospital visit by physician Mri [facility] (Lg Bore/1.5t) Radiology MRI Comment on above: Benign neoplasm of m eninges (HCC) [D32.9] Start: 06-16-2021 End: 06-16-2021 Subsequent hospital visit by physician Mri [facility] (Lg Bore/1.5t) Radiology MRI Comment on above: Malignant 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] Start: 06-01-2021 End: 06-01-2021 Subsequent hospital visit by physician Mri [facility] (Lg Bore/1.5t) Radiology MRI Comment on above: Malignant 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] Procedures Date Procedure Procedure Detail Performing Clinician Start: 01-27-2023 Ct head/brain w/o co ntrast material Gurpreet Beckwith DO, PhD Work Phone: Start: 01-27-2023 Unlisted magnetic resonance procedure Gurpreet Beckwith DO, PhD Work Phone: Start: 10-17-2022 Mri brain brain stem w/o w/contrast material Trista Bonilla APRN.[employer] Work Phone: Start: 02-23-2022 Mri brain brain [...] Author Start: 04-03-2023 Depression Assessment [facility] Ass [facility] Start: 12-21-2022 Adult depression screening assessment DEPRESSION SCREENING [facility] Start: 12-02-2022 Covid-19 Vaccine () Covid-19 Vaccine () [facility] Start: 12-02-2022 Influenza vaccination [facility] Start: 08-29-2022 End: 03-31-2023 Mri brain brain stem w/o w/contrast material MRI BRAIN WO/W IVCON Radiology Routine Benign neoplasm of meninges (HCC) Expected: 08/29/2022, Expires: 03/31/2023 [facility] Work Phone: Comment on above: Expected: 08/29/2022 , Expires: 03/31/2023 Start: 08-22-2022 Adult depression screening assessment DEPRESSION SCREENING [facility] Start: 04-03-2022 DEPRESSION ASSESSMENT DEPRESSION ASS [facility] Start: 01-24-2022 DIABETES SCREEN DIABETES SCREEN [facility] Start: 01-24-2022 Diabetes Screening Diabetes Screenin g [facility] Start: 12-02-2021 Influenza vaccination [facility] Start: 04-03-2021 DEPRESSION ASSESSMENT DEPRESSION ASS [facility] Start: 07-12-2020 COLOGUARD (FIT-DNA) COLOGUARD (FIT-D NA) [facility] Start: 07-12-2020 Colonoscopy COLONOSCOPY [facility] Start: 07-12-2020 COLORECTAL CANCER SCREENING COLORECTAL CANCER SCREENING [facility] Start: 07-12-[address] COLONOGRAPHY [facility] Start: 07-12-2020 FECAL OCCULT BLOOD FECAL OCCULT BLOO D [facility] Start: 07-12-2020 Lipid 1996 panel - S emeterio or Plasma Lipid Screening [facility] Start: 07-12-2020 Lipid panel Lipid Screening [facility] Start: 07-12-2020 LIPID SCREEN LIPID SCREEN [facility] Start: 07-12-2020 Screening for malign ant neoplasm of colon [facility] Start: 07-12-2020 SIGMOIDOSCOPY SIGMOIDOSCOPY [facility] Start: 2015 Mammography [facility] Start: 2015 Screening for malign ant neoplasm of breast Mammogram Screening [facility] Start: 07-12-2005 HPV TESTING HPV TESTING [facility] Start: 07-12-2005 Screening for malign ant neoplasm of cervix HPV Testing [facility] Start: 07-12-1996 PAP TESTING PAP TESTING [facility] Start: 07-12-1996 Screening for malign ant neoplasm of cervix Pap Testing [facility] Start: 07-12-1994 Hepatitis B Vaccine (1 of 3 - 19+ 3-dose series) Hepatitis B Vaccine (1 of 3 - 19+ 3-dose series) [facility] Start: 07-12-1994 Urine microalbumin profile [facility] Start: 07-12-1993 HEPATITIS C SCREENING HEPATITIS C [facility] Start: 07-12-1993 Hepatitis C screening Hepatitis C [facility] Start: 07-12-1993 HIV SCREENING HIV SCREENING [facility] Start: 07-12-1993 HIV screening HIV Screening [facility] Start: 07-12-1981 PNEUMOCOCCAL (1 - PCV) PNEUMOCOCCAL (1 - PCV) [facility] Start: 07-12-1980 COVID-19 VACCINE (#1) COVID-19 VACCI NE (#1) [facility] Start: 01-12-1976 COVID-19 VACCINE (#1) COVID-19 VACCI NE (#1) [facility] Start: 1975 HEPATITIS B (1 of 3 - 3-dose series) HEPATITIS B (1 of 3 - 3-dose series) [facility] Start: 1975 Hepatitis B Vaccine (1 of 3 - 3-dose series) Hepatitis B Vaccine (1 of 3 - 3-dose series) [facility] End: 09-22-2022 Mri brain brain stem w/o w/contrast material MRI BRAIN WO/W IVCON Radiology Routine Benign neoplasm of meninges (HCC) 1 Occurrences starting 08/23/2021 until 09/22/2022 [facility] Work Phone: Comment on above: 1 Occurrences starti ng 08/23/2021 until 09/22/2022 [facility] AN[facility] N[facility] Immunizations Immunization Date Immunization Notes Care Provider Fa cility 06-05-2020 SARS-CoV-2 (COVID-19 ) mRNA BNT-162b2 vax Debbie NILL [facility] 05-15-2020 SARS-CoV-2 (COVID-19 ) mRNA BNT-162b2 vax Debbie [facility] NEGATED: Highlighted row has not occurred!02-17-2023 influenza virus vaccine, unspecified formulation Debbie NILL [facility] Payers Date Payer Category Payer Self-pay 2018 Unknown MMO MMO [employer] [id number] 2018-Present [phone] [address] [place] [address] PPO [id number] 2018 Unknown [id number] 1975 Unknown [id number] 1975 Unknown [id number] 1975 Unknown [id number] 1975 Unknown [id number] 1975 Unknown [id number] 1975 Unknown [id number] 1975 Unknown [id number] 1959 Self-pay [id number] 1959 Unknown [id number] Unknown [id number] Unknown [id number] Unknown [id number] Social History Date Type Detail Facility Start: 11-19-2018 End: 02-17-2023 Tobacco smoking status NHIS Ex-smoker [facility] End: 08-02-2018 History of tobacco use Current smoker [facility] End: 08-02-2018 History of tobacco use Cigarette Smoker [facility] Start: 11-19-2018 Tobacco use and exposure Smokeless tobacco non-user [facility] Start: 06-21-2021 End: 12-22-2022 Alcohol intake Current drinker of alcohol (finding) [facility] Start: 11-19-2018 History SDOH Alcohol Comment occasionally [facility] Start: 1975 Sex Assigned At Not on file [facility] Start: 12-11-2021 End: 12-21-2021 Exposure to SARS-CoV-2 (event) Not sure [facility] Start: 06-21-2022 End: 10-18-2022 Sex Assigned At [facility] Start: 06-21-2022 End: 10-18-2022 History of Social function [facility] Adult Depression Screening Assessment 0 [facility] Start: 01-20-2020 Gender identity Identifies as female gender (finding) [facility] Start: 05-02-2021 End: 06-11-2021 Exposure to SARS-CoV-2 (event) Unable to assess [facility] Start: 1975 Sex Assigned At Female F [facility] Functional Status Date Assessment Result Facility 02-17-2023 Functional Status N/A General Phan [facility] Clinical Notes 06-01-2021 to 06-13-2023 Cherrie Bell RN - 06/13/2023 9:33 AM Nicole Carbajal MD - 06/13/2023 9:30 AM EDTTelephone Encounter - Marli Patino - 05/12/2023 9:27 AM EST Note Date & Type Note Facility 06-13-2023 Note HNO ID: [id number] Author: DEBBIE ECHEVERRIA MD Service: ? Author Type: Fellow Type: Progress Notes Filed: 06/14/2023 17:20 Note Text: [facility] GASTROENTEROLOGY ONCOLOGY ESTABLISHED PATIENT VISIT PATIENT [...] no new issues and last visit with customer orders clerk was about 6 months ago. She denies [...] Lymph 1.00 - 4.00 k/uL 2.12 Abs Douglas <0.87 k/uL 0.72 Abs Eosin <0.46 k/uL [...] 6 months - recommend follow up with customer orders clerk Patient seen and discussed with Gastroenterology Oncology [...] with more than 50% of the total bfnm-rn-wnun time of the visit in counseling / coordination of care. (more content not included)... [facility] 06-13-2023 Nurse Note Additional intake questions: Has [...] or Resource Center documented in this encounter [facility] 06-13-2023 History of Presen t illness Narrative Images from the original note were not included. [facility] GASTROENTEROLOGY ONCOLOGY ESTABLISHED PATIENT VISIT PATIENT [...] no new issues and last visit with customer orders clerk was about 6 months ago. She denies [...] Lymph 1.00 - 4.00 k/uL 2.12 Abs Douglas <0.87 k/uL 0.72 Abs Eosin <0.46 k/uL [...] 6 months - recommend follow up with customer orders clerk Patient seen and discussed with Gastroenterology Oncology [...] with more than 50% of the total nuzu-uz-woja time of the visit in counseling / coordination of care. Debbie Echeverria MD documented in this encounter [facility] 05-12-2023 Miscellaneous Notes Per Johann (RN)-via email: This patient had GK in January and their follow up MRI and appointment was never scheduled. She needs an MRI at [facility] and follow up same day with Ce piña. Schedule this for September please. Appointments scheduled. Mychart and letter sent. Marli Patino documented in this encounter [facility] 03-16-2023 Evaluation note Encounter Date Diagnosis Assessment Notes Mar, LLQ abdominal pain (ICD-10 - R10.32) Discussed differential - kidney stone, diverticulosis (recent normal colonoscopy), ovarian issue or constipation (no BM x 2 days) due to hematuria on UA - recommend CT without contrast to r/o stone. Mar, Microscopic hematuria (ICD-10 - R31.29) [facility] Other 12-14-2023 Evaluation note* Encounter Date Diagnosis [...] She would like to continue this treatment. [facility] Other 11-17-2023 NoteChief Complaint consultation for screening [...] Recorded SARS-CoV-2 (COVID-19) mRNA BNT-162b2 vax 05/15/2020 RecordedAdena Health SystemComment on above:Result Comment: Electronically Signed By: Debbie DE LOS SANTOS MD\Date and Time Signed: 02/17/23 15:11 [id number] Miscellaneous Notes* Telephone Encounter - Johann Henriquez [...] symptoms or concerns arise. documented in this encounterC[facility]11-07-2023 Miscellaneous Notes* Telephone Encounter - Johann Henriquez RN - 02/07/2023 1:13 PM EST 2nd attempt to reach out, patient unavailable. Will send [employer] message with contact information to call if she is experiencing any symptoms or has any concerns since gamma knife treatment. * Telephone Encounter - Johann Henriquez RN - 02/06/2023 1:17 PM EST Calling Ben for post-GKRS follow-up. Unable to reach at this time. Left voicemail. documented in this encounterCleveland Clinic [facility]11-01-2023 NoteHNO ID: [id number] Author: Burak Prakash MD Service: Radiation Oncology Author Type: Physician Type: Progress Notes Filed: 02/03/2023 12:33 AM Note Text: BEN CRUZ [id number] 02/01/2023 [facility] Brain Tumor Center / Department [...] [facility] NoteHNO ID: [id number] Author: Gurpreet Beckwith DO, PhD Service: ? Author Type: Physician Type: Progress Notes Filed: 01/27/2023 1:49 PM Note Text: [facility] BRAIN TUMOR AND NEURO-ONCOLOGY CENTER [address] [place] [address] [place] OPERATIVE REPORT NAME: Ben Cruz NO.: [id number] MASK SIMULATION DATE: 2023-01-27 RADIATION TREATMENT START [...] Number of Fractions: 1 After the usual senior quality assurance specialist procedures were performed, fractionated 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 was delivered with use of the Gamma Knife. The Gamma Knife checklist and time outs were performed during this procedure. Gurpreet Beckwith DO, PhDOhiohealth [facility]10-27-2023 NoteHNO ID: [id number] Author: Burak Prakash MD Service: Radiation Oncology Author Type: Physician Type: Progress Notes Filed: 02/01/2023 12:33 AM Note Text: BEN CRUZ [id number] 01/27/2023 [facility] Cindi Diez Brain Tumor and Neuro-Oncology Center [facility] STEREOTACTIC RADIOSURGERY (SRS) DAILY PROCEDURE NOTE [...] to patient setup, I conferred with the certified medical transcriptionist to approve the final setup. I was [...] planned. Electronically Signed Burak Prakash M.D. :10 [facility]10-27-2023 NoteHNO ID: [id number] Author: Burak Prakash MD Service: Radiation Oncology Author Type: Physician Type: Progress Notes Filed: 02/02/2023 12:32 AM Note Text: BEN CRUZ [id number] 01/27/2023 [facility] Cindi Xiomara Rg Brain Tumor AND Neuro-Oncology Center Department of Radiation Oncology [facility] RADIATION ONCOLOGY GAMMA KNIFE SIMULATION NOTE [...] planning. Electronically Signed Burak Prakash M.D. :18 [facility]10-27-2023 NoteHNO ID: [id number] Author: Burak Prakash MD Service: Radiation Oncology Author Type: Physician Type: Progress Notes Filed: 02/01/2023 12:33 AM Note Text: BEN CRUZ [id number] 01/27/2023 [facility] Department of Radiation Oncology [facility] RADIATION ONCOLOGY GAMMA KNIFE TREATMENT PLANNING [...] DVH. Electronically Signed Burak Prakash M.D. / [facility] :29 [facility]10-27-2023 History of Present illness Narrative* Gurpreet Beckwith DO, PhD - 01/27/2023 1:49 PM EDT [facility] BRAIN TUMOR AND NEURO-ONCOLOGY CENTER [address] [place] [address] [place] OPERATIVE REPORT NAME: RickelBen NO.: [id number] MASK SIMULATION DATE: 2023-01-27 RADIATION TREATMENT START [...] Number of Fractions: 1 After the usual senior quality assurance specialist procedures were performed, fractionated 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 was delivered with use of the Gamma Knife. The Gamma Knife checklist and time outs were performed during this procedure. Gurpreet Beckwith DO, PhD documented in this encounterCleveland Clinic [facility]10-27-2023 NoteHNO ID: [id number] Author: Gurpreet Beckwith DO, PhD Service: ? Author Type: Physician Type: Progress Notes Filed: 01/27/2023 11:22 AM Note Text: [facility] BRAIN TUMOR AND NEURO-ONCOLOGY CENTER [address] [place] [address] [place] OPERATIVE REPORT NAME: Ben Cruz NO.: [id number] MASK SIMULATION DATE: 2023-01-27 RADIATION TREATMENT START [...] Number of Fractions: 1 After the usual senior quality assurance specialist procedures were performed, fractionated 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 was delivered with use of the Gamma Knife. The Gamma Knife checklist and time outs were performed during this procedure. Gurpreet Beckwith DO, PhDOhiohealth Shelby Hospital10-27-2023 NoteHNO ID: [id number] Author: Zee Padilla Tech Service: Radiology Author Type: Cpht Type: Progress Notes Filed: 01/27/2023 8:06 AM [...] BY: Tyshawn Lawler January 27, 2023 8:06 [facility]10-27-2023 NoteHNO ID: [id number] Author: Gurpreet Beckwith DO, PhD Service: ? [...] - 123 U/L 60 (more content not included)...[facility]10-27-2023 History of Present illness Narrative* Gurpreet Beckwith DO, PhD - 01/27/2023 11:21 AM EDT [facility] BRAIN TUMOR AND NEURO-ONCOLOGY CENTER [address] [place] [address] [place] OPERATIVE REPORT NAME: Ben Cruz [facility] NO.: [id number] MASK SIMULATION DATE: 2023-01-27 RADIATION TREATMENT START [...] Number of Fractions: 1 After the usual senior quality assurance specialist procedures were performed, fractionated 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 was delivered with use of the Gamma Knife. The Gamma Knife checklist and time outs were performed during this procedure. Gurpreet Beckwith DO, PhD documented in this encounterCleveland Clinic [facility]10-27-[facility]23 History of Present illness Narrative* Zee Padilla [...] 27, 2023 8:06 AM documented in this encounterCleveland Clinic [facility]10-27-2023 NoteHNO ID: [id number] Author: Anton Terrell RN Service: Nursing Author [...] Cruz DATE: January 27, 2023 TIME: 7:46 [facility]10-27-2023 NoteHNO ID: [id number] Author: Mariela Burk RT(R) Service: Radiology Author [...] Mariela Burk RT(R) January 27, 2023 7:59 [facility]10-27-2023 History of Present illness Narrative* Gurpreet [...] 123 U/L 60 Final Pathology: Specimen #: [id number]* Submitting Physician: DEBBIE ECHEVERRIA MD FINAL DIAGNOSIS [...] FRONTAL LOBE, UNCHANGED GOING BACK TO 06/01/2021 Clinical Trial Educator: TORI Transcribe Date/Time: Jan 27 2023 8:08A [...] a CBCT with the mask on the [place] GK machine and this image will be [...] PhD cc: Ben toro documented in this encounterCleveland Clinic [facility]10-27-2023 NoteHNO ID: [id number] Author: Gayle Acevedo RN Service: ? Author [...] Dr. Aria Beckwith DO, Gayle Acevedo RN [id number] Mask SIM completed. Bentoby Cruz returned to department for treatment # 1 of 1. Is patient receiving immunotherapy infusions: Not Applicable. Patient's Age: 47 Menstruation Status: Hysterectomy 2019 [facility] Results: N/A test not performed QC: Yes, testing is valid (or protocol followed for invalid testing). Reference range: Normal Value = Negative for hCG. POC performed by: Gayle Acevedo RN 4123 4 mg Decadron PO given prior to GKRS per order of Dr. Virgil Beckwith 0946 GKRS start time. 1016 GKRS end time. 1025 Discharge instructions given to patient; instructions reviewed by this RN; patient/family verbalized understanding; patient discharged via/with Gayle Acevedo RNOhiohealth [facility] Hospital10-27-2023 Instructions* Patient Instructions* Gayle Acevedo RN - 01/27/2023 7:45 AM EDT [facility] Gamma Knife Center Discharge Instructions As with [...] physician or hospital other than the [facility] with any problem related to [...] may your physician, Dr. Virgil Beckwith at [phone] Monday through Monday 8:00 am to 5:00 pm, or call the Gamma Knife nurse Monday through Monday 8:00 am to 4:00 pm at [phone]. In the evening or on weekends, call [phone] or toll-free [phone] and ask the skidder lever operator to page your neurosurgeon's resident client relationship manager. documented in this encounterCleveland Clinic [facility]10-27-2023 History of Present illness Narrative* Anton Terrell [...] 27, 2023 7:59 AM documented in this encounterCleveland Clinic [facility]10-27-2023 History of Present illness Narrative* Gayle Acevedo [...] Patient's Age: 47 Menstruation Status: Hysterectomy 2019 [facility] Results: N/A test not performed QC: Yes, [...] via/with Gayle Acevedo RN documented in this encounterCleveland Clinic [facility]10-27-2023 History of Present illness Narrative* Burak Prakash MD - 01/27/2023 12:00 AM EDT BEN CRUZ [id number] 01/27/2023 [facility] Cindi Xiomara Rg Brain Tumor and Neuro-Oncology Center [facility] STEREOTACTIC RADIOSURGERY (SRS) DAILY PROCEDURE NOTE [...] regard to patientsetup, I conferred with the certified medical transcriptionist to approve the final setup. I was [...] Prakash M.D. :10 PM documented in this encounterCleveland Clinic [facility]10-27-2023 History of Present illness Narrative* Burak Prakash MD - 01/27/2023 12:00 AM EDT BEN CRUZ [id number] 01/27/2023 [facility] Department of Radiation Oncology [facility] RADIATION ONCOLOGY GAMMA KNIFE TREATMENT PLANNING [...] DVH. Electronically Signed Burak Prakash M.D. / [facility] 31:29 PM documented in this encounterCleveland Clinic [facility]09-21-2023 NoteHNO ID: [id number] Author: Debbie Echeverria MD Service: ? Author Type: Physician Type: Progress Notes Filed: 12/23/2022 9:46 AM Note Text: December 22, 2022 DXN: Resected T4aN0 desmoplastic melanoma. The lesion was about 4.5mm located on her back with 2 negative SLNs (left axilla). There was no reported neurtropism and only one mitotic figure. Margins were negative. Declined an adjuvant trial in [place]. Baseline imaging today is negative CC: Melanoma [...] EDT Calling Ben to follow up on [employer] message about scheduling gamma knife for 01/27/2023 No answer, left message stating that I'll go ahead and place the GK orders. Reminded to disregard ANY appointment times she sees in [employer], any automated text reminders or automated phone calls for 01/27/23 She will receive a call from the GK nurse or radiation therapist the day before with her arrival time. If she has any questions, I left office phone # for call back or she can send a [employer] message. I will send out a GK folder with additional information related to Mask Based Gamma Knife Radiosurgery Betzy Heard RN, BSN [employer] Cindi Diez [facility] documented in this encounterCleveland Clinic [facility]08-04-2023 NoteHNO ID: [id number] Author: Gurpreet Beckwith DO, PhD Service: ? Author Type: Physician Type: Progress Notes Filed: 11/04/2022 1:27 PM Note Text: Brain Tumor Neuro-Oncology Center New Patient Virtual Consultation Referred by Dr. Luis Licona We had a virtual visit conducted via [employer] visit. I received consent from the patient to perform the visit using this platform. I have communicated my name and active licensure. The patient's identity and physical location were verified at the time of this visit. Either the patient or their legal videotape sales representative has been informed of the [...] Pathology: Specimen #: [id number] (more content not included)...[facility] 11-04-2022 History of Present illness Narrative* Gurpreet Beckwith DO, PhD - 11/04/2022 1:00 PM EDT Images from the original note were not included. [facility]cology [facility] New Patient Virtual Consultation Referred by Dr. Luis Licona We had a virtual visit conducted via [employer] virtual visit. I received consent from the patient to perform the visit using this platform. I have communicated my name and active licensure. The patient's identity and physical location wereverified at the time of this visit. Either the patient or their legal videotape sales representative has been informed of the [...] 123 U/L 60 Final Pathology: Specimen #: [id number]* Submitting Physician: DEBBIE ECHEVERRIA MD FINAL DIAGNOSIS [...] with air-fluid level suggestive of acute/active sinusitis. Clinical Trial Educator: TORI Transcribe Date/Time: Oct 17 2022 11:35A [...] which included preparing to see the patient, feer-al-eyqx patient care, completing clinical documentation, obtaining and/or reviewing separately obtained history, performing a medically appropriate examination, counseling and educating the pat ient/family/caregiver, ordering medications, tests, or procedures, communicating with other HCPs (not separately reported), independently interpreting results (not separately reported), communicatingresults to the patient/family/caregiver, and care coordination (not separately reported). Gurpreet Beckwith DO, PhD cc: Ben Licona- muna Echeverria- muna documented in this encounterCleveland Clinic [facility]07-31-2023 Evaluation note* Encounter Date Diagnosis Assessment Notes Treatment Notes Treatment Clinical Notes Oct, Screen for colon cancer (ICD-10 - Z12.11) [facility] Other 07-19-2023 NoteHNO ID: [id number] Author: Luis Licona MD Service: ? Author [...] resident's medical decisio (more content not included)... [facility]07-19-2023 History of Present illness Narrative* Luis [...] Licona MD cc: Debbie Echeverria [address] [address] documented in this encounterCleveland Clinic [facility]07-18-2023 NoteHNO ID: [id number] Author: Trista Bonilla APRN.CNP Service: ? Author Type: Nurse Practitioner Type: Progress Notes Filed: 10/19/2022 12:11 AM Note Text: Elements of this note, including HPI, ROS, Physical Exam, Assessment and Plan were copied and pasted from 02/28/22 encounter with me. Updates have been made where noted and reflect current exam and medical decision making from October 18, 2022. Trista Bonilla APRN.CNP. [facility] DISTANCE HEALTH VISIT [facility] which required patient-provider interaction for the medical decision making as documented below. Persons Present: patient Ben Cruz has consented to this distance health encounter. Total Time Spent: more than 20 minutes jbyd-lp-pawg with the patient and over half the [...] with air-fluid level suggestive of acute/active sinusitis. Clinical Trial Educator: PSCB Transcribe Date/Time: Oct 17 2022 11:35A [...] Moves all extremities purp (more content not included)...[facility]07-18-2023 History of Present illness Narrative* Trista Bonilla APRN.SHERITA - 10/18/2022 10:30 AM EDT Elements of this note, including HPI, ROS, Physical Exam, Assessment and Plan were copied and pasted from 02/28/22 encounter with me. Updates have been made where noted and reflect current exam and medical decision making from October 18, 2022. Trista Bonilla APRN.SHERITA. [facility] DISTANCE HEALTH VISIT This visit is a Virtual MyChart video visit encounter which required patient- provider interaction for the medical decision making as documented below. Persons Present: patient Ben Cruz has consented to this distance health encounter. Total Time Spent: more than 20 minutes ljri-cs-ypeb with the patient and over half the [...] with air-fluid level suggestive of acute/active sinusitis. Clinical Trial Educator: TORI Transcribe Date/Time: Oct 17 2022 11:35A [...] Cc: Dr. Luis Echeverria documented in this encounterC[facility]23 NoteHNO ID: [id number] Author: Nidia Morelos RN Service: Nursing Author [...] Cruz DATE: October 17, 2022 TIME: 10:40 [facility]07-17-2023 NoteHNO ID: [id number] Author: Barbara Gaxiola, mobile nurse Service: Radiology Author Type: Cpht Type: Progress Notes Filed: 10/17/2022 10:54 AM [...] Site disposition Discontinued SIGNED BY: Barbara Gaxiola mobile nurse October 17, 2022 10:53 [facility]07-17-2023 History of Present illness Narrative* Nidia [...] 2022 TIME: 10:40 AM * Barbara Gaxiola mobile nurse - 10/17/2022 10:40 AM EDT Radiology Service [...] 17, 2022 10:53 AM documented in this encounterCleveland [facility]06-21-2023 Evaluation note* Encounter Date Diagnosis Assessment Notes [...] the berberine and get back to patient. [facility] Other 05-31-2023 Miscellaneous Notes* Telephone Encounter - [...] 09/05. Prescription should be sent to the [facility] in [place] on [facility]. [facility] [phone] [place] [id number] documented in this encounterCleveland Clinic [facility]03-21-2023 NoteHNO ID: [id number] Author: Debbie Echeverria MD Service: ? Author [...] with more than 50% of the total kufb-qn-yhsy time of the visit in counseling / [...] with more than 50% of the total orbz-gn-smll time of the visit in counseling / coordination of care. Debbie Echeverria MD documented in this encounterCleveland Clinic [facility]03-21-2023 Nurse Note* Vanessa Giang LPN - 06/21/2022 10:29 AM EDT Additional intake questions: Has the patient had fever, nausea, vomiting, diarrhea, constipation, fatigue for > 1 week? Yes, fatigue and Provider Notified Does the patient have a decreased appetite? No Does patient want to see a Cadd Instructor? No (yes to any of above refer patient to schedulers for dietitian appointment) ) Does patient have any new or increased numbness or tingling of extremities? No Is patient interested in fertility information? NA Does patient need any prescription refills? No Does patient have an advanced directive in place? No, Patient refused referral to Social Work or Resource Center documented in this encounterCleveland [facility]11-28-2022 History of Present illness Narrative* Trista Bonilla APRN.SHERITA - 02/28/2022 10:30 AM EST [facility] DISTANCE HEALTH VISIT This visit is a Virtual MyChart video visit encounter which required patient- provider interaction for the medical decision making as documented below. Persons Present: patient Ben Cruz has consented to this distance health encounter. 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 She denies focal weakness, dizziness, gait [...] unremarkable MRI brain with and without contrast. Clinical Trial Educator: [facility] Transcribe Date/Time: Feb 23 2022 11:50A [...] She will continue to get MRI at [facility] and present in VV follow up. Trista Bonilla APRN.CNP Cc: Dr. Luis Echeverria documented in this encounterCleveland Clinic [facility]11-23-2022 History of Present illness Narrative* Nidia Morelos [...] 2022 TIME: 10:33 AM * Barbara Gaxiola mobile nurse - 02/23/2022 10:40 AM EST Radiology Service [...] 23, 2022 10:57 AM documented in this encounterCleveland Clinic [facility]09-20-2022 History of Present illness Narrative* Debbie Echeverria MD - 12/21/2021 1:37 PM EDT December 21, 2021 DXN: Resected T4aN0 desmoplastic melanoma. The lesion was about 4.5mm located on her back with 2 negative SLNs (left axilla). There was no reported neurtropism and only one mitotic figure. Margins were negative. Declined an adjuvant trial in [place]. Baseline imaging today is negative CC: Melanoma [...] with more than 50% of the total ymwj-cg-vgot time of the visit in counseling / coordination of care. Debbie Echeverria MD documented in this encounterCleveland Clinic [facility]09-20-2022 Nurse Note* Tiny Mckoy LPN - 12/21/2021 1:20 PM EDT Additional intake questions: Has the patient had fever, nausea, vomiting, diarrhea, constipation, fatigue for > 1 week? Yes, fatigue Does the patient have a decreased appetite? No Does patient want to see a Cadd Instructor? No (yes to any of above refer patient to schedulers for dietitian appointment) ) Does patient have any new or increased numbness or tingling of extremities? No Is patient interested in fertility information? No Does patient need any prescription refills? No Does patient have an advanced directive in place? No, Patient refused referral to Social Work or Resource Center documented in this encounterCleveland Clinic [facility]09-02-2022 Miscellaneous Notes* Telephone Encounter - Jaylene Jacobson RN - 12/03/2021 12:49 PM EDT Patient needs a follow up visit (no labs or scans) around 12/25/21. She accepted a visit on 12/21 at 1:30 pm. Jaylene Jacobson RN * Telephone Encounter - Mary Lindsay - 12/01/2021 4:45 PM EDT Ben Cruz is calling Debbie Echeverria MD today regarding [employer] - Other Patient called scheduling to schedule 6 mo follow up but was unable to get thru, so calling office for Dr. Echeverria to get it scheduled. Can she be called once appointment is made? Patient has been identified by name and birthdate. Requesting response back: [phone] (home) [phone] (cell) Mary Lindsay December 01, 2021 documented in this encounterCleveland Clinic [facility]05-23-2022 History of Present illness Narrative* Luis Licona [...] an updated MRI in 6 months in [place] followed by a virtual visit for further meningioma surveillance, with additional surveillance plan to be developed thereafter. Zhanna Le MD Radiation Oncology Resident [phone] STAFF ADDENDUM I saw and evaluated the [...] brain. Luis Licona MD cc: Debbie Echeverria [id number] [facility] [id number] documented in this encounterCleveland Clinic [facility]05-23-2022 History of Present illness Narrative* Nidia Morelos [...] 23, 2021 12:14 PM documented in this encounterCleveland Clinic [facility]03-16-2022 History of Present illness Narrative* Nazanin Moncada [...] 2021 TIME: 10:22 AM * Barbara Gaxiola mobile nurse - 06/16/2021 10:00 AM EDT Radiology Service [...] 16, 2021 10:35 AM documented in this encounterCleveland Clinic [facility]03-01-2022 History of Present illness Narrative* Barbara Gaxiola [...] 2021 TIME: 11:13 AM [facility] No data available for this section General Surgery Jayjay Evaluation note* Diagnosis 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 documented in this encounter [facility] note* Diagnosis 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 documented in this encounter [facility] note* Diagnosis Benign neoplasm of meninges (HCC)- Primary Benign neoplasm of cerebral meninges documented in this encounter [facility] note* Diagnosis 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) documented in this encounter [facility] noteNo Done In :60 SecondsClitherall Pianpian Other Evaluation note* Diagnosis Meningioma (HCC)- Primary Benign neoplasm of cerebral meninges documented in this encounter [facility]* Diagnosis Meningioma (HCC)- Primary Benign neoplasm of cerebral meninges documented in this encounter [facility]* Diagnosis Benign neoplasm of meninges (HCC)- Primary Benign neoplasm of cerebral meninges [facility] Diagnosis Benign neoplasm of meninges (HCC)- Primary Benign neoplasm of cerebral meninges documented in this encounter [facility]* Diagnosis Benign neoplasm of meninges (HCC)- Primary Benign neoplasm of cerebral meninges [facility]* Diagnosis Benign neoplasm of meninges (HCC)- Primary Benign neoplasm of cerebral meninges documented in this encounter [facility]* Diagnosis 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 documented in this encounter [facility]* Diagnosis 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 [facility]* Diagnosis 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 documented in this encounter [facility]* Diagnosis 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) Liver lesion Other specified disorders of liver [facility]* Diagnosis 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 [facility]* Diagnosis 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 [facility] Diagnosis Onset Date Resolution Status Familial hypercholesteremia acute History of benign meningioma of brain acute [facility] Work Phone: History general Narrative - Reported* Type Description Date Medical History melanoma Surgical History laminectomy Surgical History c-sectionx 2 Surgical History hysterectomy Surgical History lump removed right wrist Surgical History melanoma removal [facility] Other History general Narrative - ReportedNortMoxtra Other History general Narrative - Reported* Type Description Date Medical History melanoma Surgical History laminectomy Surgical History c-sectionx 2 Surgical History hysterectomy Surgical History lump removed right wrist Surgical History melanoma removal Surgical History Colonoscopy 03/2023 [facility] Other Hospital Discharge instructions No data available for this section General Surgery [place] Progress note No data available for this section General Surgery [place] Reason for Referral Specialty Diagnoses / Procedures Referred By Selene lloyd Referred To Contact MR IMAGING Diagnoses Benign neoplasm of meninges (HCC) Procedures MRI BRAIN WO/W IVCON MRI BRAIN BRAIN STEM W/O W/[place] [address] [place] [address] Mr Imaging Referral ID Status Reason Start Date Expiration Date Visits Requested Visits Authorized [id number] Pending Review Auto-Generat ed Referral 08/23/2021 09/22/2022 1 1 Specialty Diagnoses / Procedures Referred By Selene lloyd Referred To Contact MR IMAGING Diagnoses Benign neoplasm of meninges (HCC) Procedures MRI BRAIN WO/W IVCON MRI BRAIN BRAIN STEM W/O W/CONTRAST MATERIAL Trista Bonilla APRN.SHERITA [address] [place] [address] Mr Imaging Referral ID Status Reason Start Date Expiration Date Visits Requested Visits Authorized [id number] Pending Review Auto-Generat ed Referral 08/29/2022 03/31/2023 1 1 Reason *FU 11/15 screenin g colonoscopy Diagnosis 1 Screen for colon can cer (Z12.11) Referral Organization [facility] elias Referring Provider First Name Lissett Referring Provider Last Name Gary Referring Provider Specialty Family [facility] Referred Organization [facility] Referred Provider Tucker Ann Referred Address [address] [place], [place],[address] Referred Provider Specialty General Surg katelyn Referral Priority Routine General Notes Louise Livingston 10:47:05 AM >received today, attachments made, notes locked, referral faxed Clinical Notes F: [id number] Specialty Diagnoses / Procedures Referred By Selene lloyd Referred To Contact MR IMAGING Diagnoses Benign neoplasm of meninges (HCC) Procedures MRI BRAIN LOCALIZATION W IVCON UNLISTED MAGNETIC RESONANCE PROCED Gurperet Beckwith DO, PhD [address] [place] [address] Mr Imaging [id number] Referral ID Status Reason Start Date Expiration Date V isits Requested Visits Authorized [id number] Closed Auto-Generate d Referral 12/06/2022 1 1 Specialty Diagnoses / Procedures Referred By Contac t Referred To Contact MR IMAGING Diagnoses Benign neoplasm of meninges (HCC) Procedures MRI BRAIN WO/W IVCON MRI BRAIN BRAIN STEM W/O W/[place] [address] [place] [address] Mr Imaging [place] [address] Referral ID Status Reason Start Date Expiration Date V isits Requested Visits Authorized [id number] Closed Auto-Generate d Referral 06/21/2021 09/18/2021 1 1 Specialty Diagnoses / Procedures Referred By Contac t Referred To Contact MR IMAGING Diagnoses 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) Liver lesion Procedures MRI LIVER WO/W IVCON MRI ABDOMEN W/O & W/[place] [address] [place] [id number] Mr Imaging [place] [id number] Referral ID Status Reason Start Date Expiration Date V isits Requested Visits Authorized [id number] Closed Auto-Generate d Referral 05/20/2021 07/11/2021 1 1 Specialty Diagnoses / Procedures Referred By Contac t Referred To Contact MR IMAGING Diagnoses Benign neoplasm of meninges (HCC) Procedures MRI BRAIN WO/W IVCON MRI BRAIN BRAIN STEM W/O W/CONTRAST MATERIAL Trista Bonilla APRN.CNP [address] [place] [address] Mr Imaging [place] [id number] Referral ID Status Reason Start Date Expiration Date V isits Requested Visits Authorized [id number] Closed Auto-Generate d Referral 08/29/2022 03/31/2023 1 1 Referral ID Status Reason Start Date Expiration Date V isits Requested Visits Authorized [id number] Closed Auto-Generate d Referral 08/23/2021 03/20/2022 1 [...] or prosecute any alcohol or drug abuse patient.[facility] RehabilitationIn the event this information is protected by the Federal Confidentiality of Alcohol and Drug Abuse Patient Records regulations: The Federal rules restrict any use of the information to criminally investigate or prosecute any alcohol or drug abuse patient.[facility] RehabilitationIn the event this information is protected by the Federal Confidentiality of Alcohol and Drug Abuse Patient Records regulations: The Federal rules restrict any use of the information to criminally investigate or prosecute any alcohol or drug abuse patient.[facility] RehabilitationIn the event this information is protected by the Federal Confidentiality of Alcohol and Drug Abuse Patient Records regulations: The Federal rules restrict any use of the information to criminally investigate or prosecute any alcohol or drug abuse patient.[facility] RehabilitationIn the event this information is protected by the Federal Confidentiality of Alcohol and Drug Abuse Patient Records regulations: The Federal rules restrict any use of the information to criminally investigate or prosecute any alcohol or drug abuse patient.[facility] RehabilitationIn the event this information is protected by the Federal Confidentiality of Alcohol and Drug Abuse Patient Records regulations: The Federal rules restrict any use of the information to criminally investigate or prosecute any alcohol or drug abuse patient.[facility] RehabilitationIn the event this information is protected by the Federal Confidentiality of Alcohol and Drug Abuse Patient Records regulations: The Federal rules restrict any use of the information to criminally investigate or prosecute any alcohol or drug abuse patient.[facility] RehabilitationIn the event this information is protected by the Federal Confidentiality of Alcohol and Drug Abuse Patient Records regulations: The Federal rules restrict any use of the information to criminally investigate or prosecute any alcohol or drug abuse patient.[facility] RehabilitationIn the event this information is protected by the Federal Confidentiality of Alcohol and Drug Abuse Patient Records regulations: The Federal rules restrict any use of the information to criminally investigate or prosecute any alcohol or drug abuse patient.[facility] RehabilitationIn the event this information is protected by the Federal Confidentiality of Alcohol and Drug Abuse Patient Records regulations: The Federal rules restrict any use of the information to criminally investigate or prosecute any alcohol or drug abuse patient.[facility] RehabilitationIn the event this information is protected by the Federal Confidentiality of Alcohol and Drug Abuse Patient Records regulations: The Federal rules restrict any use of the information to criminally investigate or prosecute any alcohol or drug abuse patient.[facility] RehabilitationIn the event this information is protected by the Federal Confidentiality of Alcohol and Drug Abuse Patient Records regulations: The Federal rules restrict any use of the information to criminally investigate or prosecute any alcohol or drug abuse patient.[facility] RehabilitationIn the event this information is protected by the Federal Confidentiality of Alcohol and Drug Abuse Patient Records regulations: The Federal rules restrict any use of the information to criminally investigate or prosecute any alcohol or drug abuse patient.[facility] RehabilitationIn the event this information is protected by the Federal Confidentiality of Alcohol and Drug Abuse Patient Records regulations: The Federal rules restrict any use of the information to criminally investigate or prosecute any alcohol or drug abuse patient.[facility] RehabilitationIn the event this information is protected by the Federal Confidentiality of Alcohol and Drug Abuse Patient Records regulations: The Federal rules restrict any use of the information to criminally investigate or prosecute any alcohol or drug abuse patient.[facility] RehabilitationIn the event this information is protected by the Federal Confidentiality of Alcohol and Drug Abuse Patient Records regulations: The Federal rules restrict any use of the information to criminally investigate or prosecute any alcohol or drug abuse patient.[facility] RehabilitationIn the event this information is protected by the Federal Confidentiality of Alcohol and Drug Abuse Patient Records regulations: The Federal rules restrict any use of the information to criminally investigate or prosecute any alcohol or drug abuse patient.[facility] RehabilitationIn the event this information is protected by the Federal Confidentiality of Alcohol and Drug Abuse Patient Records regulations: The Federal rules restrict any use of the information to criminally investigate or prosecute any alcohol or drug abuse patient.[facility] RehabilitationIn the event this information is protected by the Federal Confidentiality of Alcohol and Drug Abuse Patient Records regulations: The Federal rules restrict any use of the information to criminally investigate or prosecute any alcohol or drug abuse patient.[facility] RehabilitationIn the event this information is protected by the Federal Confidentiality of Alcohol and Drug Abuse Patient Records regulations: The Federal rules restrict any use of the information to criminally investigate or prosecute any alcohol or drug abuse patient.[facility] RehabilitationIn the event this information is protected by the Federal Confidentiality of Alcohol and Drug Abuse Patient Records regulations: The Federal rules restrict any use of the information to criminally investigate or prosecute any alcohol or drug abuse patient.[facility] RehabilitationIn the event this information is protected by the Federal Confidentiality of Alcohol and Drug Abuse Patient Records regulations: The Federal rules restrict any use of the information to criminally investigate or prosecute any alcohol or drug abuse patient.[facility] RehabilitationIn the event this information is protected by the Federal Confidentiality of Alcohol and Drug Abuse Patient Records regulations: The Federal rules restrict any use of the information to criminally investigate or prosecute any alcohol or drug abuse patient.[facility] RehabilitationIn the event this information is protected by the Federal Confidentiality of Alcohol and Drug Abuse Patient Records regulations: The Federal rules restrict any use of the information to criminally investigate or prosecute any alcohol or drug abuse patient.[facility] RehabilitationIn the event this information is protected by the Federal Confidentiality of Alcohol and Drug Abuse Patient Records regulations: The Federal rules restrict any use of the information to criminally investigate or prosecute any alcohol or drug abuse patient.[facility] RehabilitationIn the event this information is protected by the Federal Confidentiality of Alcohol and Drug Abuse Patient Records regulations: The Federal rules restrict any use of the information to criminally investigate or prosecute any alcohol or drug abuse patient.[facility] RehabilitationIn the event this information is protected by the Federal Confidentiality of Alcohol and Drug Abuse Patient Records regulations: The Federal rules restrict any use of the information to criminally investigate or prosecute any alcohol or drug abuse patient.[facility] RehabilitationIn the event this information is protected by the Federal Confidentiality of Alcohol and Drug Abuse Patient Records regulations: The Federal rules restrict any use of the information to criminally investigate or prosecute any alcohol or drug abuse patient.[facility] Reason for Visit (unrecogniz ed section and content) Reason Comments Radiology MRI Specialty Diagnoses / Procedures Referred By Contac Referred To Contact ADMITTING Diagnoses Benign neoplasm of meninges (HCC) Procedures RADIATION DELIVERY STEREOTACTIC CRANIAL [place] STEREOTACTIC RADIOSURGERY 1 COMPLEX CRANIAL LES RADIATION [place] STEREOTACTIC RADIOSURGERY (SRS) [place] CRANIAL LESION(S) 1 SESSION MULTI-SOURCE [place] STEREOTACTIC RADIOSURGERY 1 COMPLEX CRANIAL LESION [facility] [address] [address] Referral ID Status Reason Start Date Expiration Date Visits Re quested Visits Authorized [id number] [address] Specialty Diagnoses / Procedures Referred By [facility] Referred To Contact ADMITTING Diagnoses Benign neoplasm of meninges (HCC) Procedures RADIATION DELIVERY STEREOTACTIC CRANIAL [place] STEREOTACTIC RADIOSURGERY 1 COMPLEX CRANIAL LES RADIATION [place] STEREOTACTIC RADIOSURGERY (SRS) [place] CRANIAL LESION(S) 1 SESSION MULTI-SOURCE [place] STEREOTACTIC RADIOSURGERY 1 COMPLEX CRANIAL LESION [facility] [address] [address] Reason Comments Recheck Reason Comments [employer] - Other Reason Comments Established Patient Reason Comments Established Patient Reason Comments Recheck Reason Comments Consult GK consult for LF me ningioma Reason Comments [employer] - 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 Reason Comments Procedure GKRS Reason Comments Radiology MRI Specialty Diagnoses / Procedures Referred By [facility] Referred To Contact MR IMAGING Diagnoses 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) New daily persistent headache Other headache syndrome Procedures MRI BRAIN WO/W IVCON MRI BRAIN BRAIN STEM W/O W/[place] [address] [place] [address] Mr Imaging [id number] Referral ID Status Reason Start Date Expiration Date V isits Requested Visits Authorized [id number] Closed Auto-Generate d Referral 04/29/2021 06/13/2021 1 1 Specialty Diagnoses / Procedures Referred By Contac t Referred To Contact MR IMAGING Diagnoses Benign neoplasm of meninges (HCC) Procedures MRI BRAIN WO/W IVCON MRI BRAIN BRAIN STEM W/O W/[place] [address] [place] [address] Mr Imaging [id number] Referral ID Status Reason Start Date Expiration Date V isits Requested Visits Authorized [id number] Closed Auto-Generate d Referral 06/21/2021 09/18/2021 1 1 Specialty Diagnoses / Procedures Referred By Contac t Referred To Contact MR IMAGING Diagnoses 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) Liver lesion Procedures MRI LIVER WO/W IVCON MRI ABDOMEN W/O & W/[place] [address] [place] [address] Mr Imaging [id number] Referral ID Status Reason Start Date Expiration Date V isits Requested Visits Authorized [id number] Closed Auto-Generate d Referral 05/20/2021 07/11/2021 1 1 Specialty Diagnoses / Procedures Referred By Contac t Referred To Contact MR IMAGING Diagnoses Benign neoplasm of meninges (HCC) Procedures MRI BRAIN WO/W IVCON MRI BRAIN BRAIN STEM W/O W/CONTRAST MATERIAL Trista Bonilla APRN.[employer] [address] [place] [address] Mr Imaging [id number] Referral ID Status Reason Start Date Expiration Date V isits Requested Visits Authorized [id number] Closed Auto-Generate d Referral 08/29/2022 03/31/2023 1 1 Referral ID Status Reason Start Date Expiration Date V isits Requested Visits Authorized [id number] Closed Auto-Generate d Referral 08/23/2021 03/20/2022 1 1 Reason Comments Gamma Knife Follow-up Reason Comments Appointment [place] Reason Comments Established Patient Follow-Up INFORMATION SOURCE (unrecogn ized section and content) DATE CREATED AUTHOR 06/10/2022 [facility] DATE CREATED AUTHOR AUTHOR'S ORGANIZ ATION 02/04/2023 [facility]ical [facility] DATE CREATED AUTHOR AUTHOR'S ORGANIZ ATION 03/30/2023 [facility] ical [facility] DATE CREATED AUTHOR AUTHOR'S ORGANIZ ATION 06/05/2023 [facility] DATE CREATED AUTHOR AUTHOR'S ORGANIZ ATION 06/08/2023 [facility] DATE CREATED AUTHOR AUTHOR'S ORGANIZ ATION 06/16/2023 [facility] Care Teams (unrecognized sec tion and content) Filing And Polishing Supervisor Relationship Specialty Start Date End Date Lissett Vega MD [address] [place] [address] PCP - General Family Medicine 01/17/23 Filing And Polishing Supervisor Relationship Specialty Start Date End Date Lissett Vega MD [address] [facility] [place] [address] PCP - General Family Medicine 01/17/23 Filing And Polishing Supervisor Relationship Specialty Start Date End Date Lissett Vega MD [address] [facility] [place] [address] PCP - General Family Medicine 01/17/23 Filing And Polishing Supervisor Relationship Specialty Start Date End Date Lissett Vega MD [address] [facility] [place] [address] PCP - General Family Medicine 01/17/23 Filing And Polishing Supervisor Relationship Specialty Start Date End Date Lissett Vega MD [address] [facility] [place] [address] PCP - General Family Medicine 01/17/23 Filing And Polishing Supervisor Relationship Specialty Start Date End Date Lissett Vega MD [address] [place] [address] PCP - General Family Medicine 01/17/23 Filing And Polishing Supervisor Relationship Specialty Start Date End Date Lissett Vega MD [address] [place] [address] PCP - General Family Medicine 01/17/23 Filing And Polishing Supervisor Relationship Specialty Start Date End Date Lissett Vega MD [address] [place] [address] PCP - General Family Medicine 01/17/23 [...] BASED ON THE PRIMARY CLINICAL RECORDS. [facility] [employer] [facility]. provides no warranty or guarantee of the accuracy or completeness of information in this document.
[2023-09-11 21:11] LABS: Age Gdln ACOG Testing Note (.); HPV Aptima Negative (Negative); IGP, Aptima HPV, rfx 16/18,45 Note (.)
== END 2023-09-05 21:25 | disposition home or self-care (01) ==
LOC: LAB 21:24
PROVIDERS: PCP Family Medicine; Visit Provider Obstetrics & Gynecology
DX: Z01.419 Encounter for gynecological examination (general) (routine) without abnormal findings (principal)
CPT/HCPCS: 87624; 88175

== ENCOUNTER 2023-09-22 13:46 | Outpatient (OUT) | payer OTHER, SELFPAY ==
--- NOTE | 2023-09-22 13:51 | MM_ITS ---
Patient Name: BEN TABOR MR#: [id number] : 1975 Exam Date: 09/22/2023 Ordering Doctor: DR Hans Colby . RADIOLOGY REPORT PROCEDURE: MM TOMOSYNTHESIS SCREENING BI COMPARISON: MG MAMM SCREEN 3D JULIO CÉSAR CAD, 09/08/2021. MM TOMOSYNTHESIS SCREENING BI, 09/09/2022. INDICATIONS: Screening Calculator Name NCI Breast Cancer Risk Assessment Tool 5 Year Breast Cancer Risk 0.90% Lifetime Breast Cancer Risk 9.10% Personal Breast Cancer No Personal Ovarian Cancer No Treatments wide excision Family Cancers Grandmother-maternal with breast cancer at age 55; Grandfather-maternal with anal cancer at age 80; Father with pancreatic cancer at age 71. LOCATION: [facility] BREAST COMPOSITION: There are scattered areas of fibroglandular density. FINDINGS: DIAGNOSTIC CATEGORY 2--BENIGN FINDING. NO CHANGE FROM COMPARISON. Scattered benign-appearing nodules are present. Scattered benign-appearing calcifications are present. Scattered benign-appearing lymph nodes are present. RIGHT BREAST: No significant suspicious finding. LEFT BREAST: No significant suspicious finding. RECOMMENDATIONS: ROUTINE MAMMOGRAM AND CLINICAL EVALUATION IN 12 MONTHS. PLEASE NOTE: A NORMAL MAMMOGRAM DOES NOT EXCLUDE THE POSSIBILITY OF BREAST CANCER. A CLINICALLY SUSPICIOUS PALPABLE LUMP SHOULD BE BIOPSIED. Dictated by: Faustino Mc MD on 09/25/2023 at 08:40 Approved by: Faustino Mc MD on 09/25/2023 at 08:42
== END 2023-09-22 13:47 | disposition home or self-care (01) ==
LOC: MAMMO 13:46
PROVIDERS: PCP Family Medicine; Visit Provider Obstetrics & Gynecology
DX: Z12.31 Encounter for screening mammogram for malignant neoplasm of breast (principal); Z80.3 Family history of malignant neoplasm of breast; Z80.8 Family history of malignant neoplasm of other organs or systems
CPT/HCPCS: 77063; 77067

== ENCOUNTER 2023-09-25 10:03 | Outpatient (OUT) | payer OTHER, SELFPAY ==
--- NOTE | 2023-09-25 10:08 | ECG_ITS ---
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
--- OUTSIDE RECORDS SUMMARY | 2023-09-25 10:16 | XMS_ITS | CCD ---
Author Organization [facility] Care Team Providers Care 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 Name Role Phone Unavailable Primary Care Provider Jacqueline VEGA, DR LISSETT Fung Admitting Unavailable GARY, DR LISSETT Fung Attending Unavailable VEGA, DR LISSETT Fung Primary Care Unavailable MISC, DR MONCADA Consulting Unavailable GARY, DR LISSETT [...] Fung Primary Care Unavailable GARY, DR LISSETT Fnug Consulting Unavailable Unavailable Primary Care Provider UnavailLissett Hardwick Unavailable Lissett Vega MD Primary Care Provider LISSETT VEGA Primary Care Physician Debbie DE LOS SANTOS Attending Unavailable Debbie DE LOS SANTOS Attending Unavailable Jes Vieira Admitting Unavailable Jes Vieira Attending Unavailable Lissett Vega Primary Care Unavailable Lissett Vega Primary Care Unavailable Taz Rossi Admitting Unavailable Taz Rossi Attending Unavailable MD Lissett Vega Primary Care Provider MD Jes Vieira Attending Provider VETO SHIN Attending Unavailable VETO SHIN Attending Unavailable Lissett Vega MD Primary Care Provider BECKWITH, GURPREET Referring Unavailable VEGA, LISSETT E Primary Care Unavailable BECKWITH, GURPREET Referring Unavailable BECKWITH, GURPREET Admitting Unavailable BECKWITH, GURPREET Attending Unavailable ABDIAZIZ BUNCH Attending Unavailable BECKWITH, GURPREET Referring Unavailable VEGA, LISSETT E Primary Care Unavailable TRISTA BONILLA Referring Unavailable DEBBIE ECHEVERRIA Referring Unavailable TRISTA BONILLA Attending Unavailable DEBBIE ECHEVERRIA Referring Unavailable LUIS LICONA Attending Unavailable DEBBIE ECHEVERRIA Attending Unavailable BECKWITH, GURPREET Attending Unavailable BECKWITH, GURPREET Referring Unavailable BECKWITH, GURPREET Admitting Unavailable VEGA, LISSETT E Primary Care Unavailable BECKWITH, GURPREET Attending Unavailable BECKWITH, GURPREET Referring Unavailable VEGA, LISSETT E Primary Care Unavailable VEGA, LISSETT E Primary Care Unavailable BURAK PRAKASH Attending Unavailable VEGA, LISSETT E Primary Care Unavailable BURAK PRAKASH Attending Unavailable BECKWITH, GURPREET Attending Unavailable BECKWITH, GURPREET Referring Unavailable BECKWITH, GURPREET Admitting Unavailable VEGA, LISSETT E Primary Care Unavailable BECKWITH, GURPREET Attending Unavailable BECKWITH, GURPREET Referring Unavailable BECKWITH, GURPREET Admitting Unavailable VEGA, LISSETT E Primary Care Unavailable VEGA, LISSETT E Primary Care Unavailable DEBBIE ECHEVERRIA Attending Unavailable Allergies Allergy Classification Reported Allergen(s) Allergy Type Date of Onset Reaction(s) Facility (5 sources) patient allergy list reviewed by nurse or physicia Propensity to adverse reactions Comment:Done [employer] Other (5 sources) Allergies Reconciled Propensity to adverse reactions Unknown [employer] Other (1 source) No Known Medication Allergies; Translations: [No Known Medication Allergies] Propensity to adverse reactions (disorder) [facility] Repository Medications Current Medications Medication Drug [...] every 12 hrs for 7 days Active dexamethasone 4 mg oral tablet (12 sources) Corticosteroid Start: 01-29-20 dexAMETHasone (DECADRON) 4 mg tablet Start the [...] Decadron 1 ml evolocumab 140 mg/ml auto-injector (6 sources) PCSK9 Inhibitor Start: End: inject 140 mg by subcutaneous injection every other week REPATHA SURECLICK 140 mg/mL pen injector Inject 140 mg subcutaneously every 2 weeks. 0 06/06/2023 Active Comment on above: Inject 140 mg subcut aneously every 2 weeks. famotidine 20 mg oral tablet (12 sources) Histamine-2 Receptor Antagonist Start: take 1 [...] 1 tablet by petra th once daily. ibuprofen 800 mg oral tablet (1 source) Nonsteroidal Anti-inflammatory Drug Start: Ibuprofen Active 800 MG PO every 6 to 8 hours June 05, 2023 1:00am Inclisiran (1 source) Start: Inclisiran Active MG SUBCUT As Directed June 02, 2023 1:00am FreeTextSig: as directed Subcutaneous; Note: Source Status: Refill; Provider: Gary Fung inclisiran (LEQVIO) 284 mg/1.5 mL injection (20 sources) Start: inclisiran (LEQVIO) 284 mg/1.5 mL injection iv contrast (will be provided with radiology test) (3 sources) Start: End: inject 1 dose intravenously once iv contrast [...] contrast administration guidelines link 1 Each 0 09/12/2023 09/13/2023 Active Start: 03-01-2022 End: 03-02-2022 inject 1 dose [...] Subcutaneous Active LORazepam 1 mg oral tablet (6 sources) Benzodiazepine Start: 09-08-2023 End: 09-29-2023 LORazepam (ATIVAN) 1 mg tablet Indications: Benign neoplasm of meninges (HCC) One tablet 30 minutes prior to MRI 1 tablet 0 09/08/2023 09/29/2023 Active Start: 08-31-2022 End: 09-21-2022 LORazepam (ATIVAN) 1 mg tabl et Indications: [...] tablet 30 minute s prior to MRI meloxicam 15 mg oral tablet (20 sources) Nonsteroidal Anti-inflammatory Drug Start: 12-02-19 meloxicam (MOBIC) 15 mg tablet Multivitamin preparation (1 source) Start: 06-05-19 take 1 tablet by mouth once daily Multivitamin Active 1 TAB PO Daily June 05, 2023 1:00am omeprazole 20 mg delayed release oral capsule (20 sources) Proton Pump Inhibitor take 1 capsule by mouth once daily omeprazole (PRILOSEC) 20 mg capsule Take 20 mg by mouth once daily. 0 Active Comment on above: Take 20 mg by mouth once daily. Completed/Discontinued Medications Medication Drug Class(es) Dates Sig (Normalized) Sig (Original) rosuvastatin calcium 10 mg oral tablet (2 sources) HMG-CoA Reductase Inhibitor End: 06-21-2021 take 1 tablet by mouth once daily rosuvastatin (CRESTOR) 10 mg tablet Take 10 mg by mouth once daily. 0 06/21/2021 Discontinued (Other) Comment on above: Take 10 mg by mouth once daily. tamsulosin hydrochloride 0.4 mg oral capsule (4 sources) alpha-Adrenergic Ivan Start: 06-02-2023 End: 06-05-2023 take 1 capsule by mouth once daily Tamsulosin Discontinued 1 CAP PO Daily June 02, 2023 1:00am June 05, 2023 2:18pm [employer] capsule Orally Once a day; Note: Source Status: Taking; Qty: 7 Capsule; Provider: Gary Fung take 1 capsule by [facility] every twenty-four hours Flomax 0.4 MG [...] eye, unspecified eyelid] Episodic Melanomas of skin (6 sources) Malignant melanoma of trunk; Translations: [Malignant [...] Test Name Value Interpretation Reference Range Facility CNOVon 09-12-2023 CNOV Office Visit ([facility] ) ----- BEN CRUZ ([id number]) 1975 F Date Time Provider Department 09/12/23 11:45 AM ABDIAZIZ BUNCH [facility] During your visit today, we recorded the following information about you: Pulse Blood pressure Weight 81/minute 141/86 97 kg Abdiaziz Bunch, BUSINESS INFORMATION CONSULTANT.PRESIDENT AND CMO 09/12/2023 1:21 PM Signed [facility] BRAIN TUMOR CENTER NEURO-ONCOLOGY OUTPATIENT CLINIC NOTE PURPOSE OF VISIT: Ongoing patient management CHIEF COMPLAINT : Meningioma Subjective HISTORY OF PRESENT ILLNESS: Ben Cruz is a 48 year old right-handed female with history of desmoplastic melanoma, diagnosed in 2018. She developed COVID 2021 and developed worsening headaches. MRI brain done in workup, given her history, showing Left frontal meningioma. Surveillance imaging in 2022 showed slight interval growth of meningioma. She was seen in evaluation by Dr. Beckwith and is s/p GKRS 01/27/23 to 1) Left frontal with Dr. Beckwith and Dr. Prakash. She follows with Dr. Debbie Arndt for melanoma; currently on surveillance. INTERVAL HISTORY : 09/12/23 Presents today unaccompanied for follow-up with new MRI brain for review s/p GKRS. Today she denies any new neurological complaints. She remains on surveillance with Dr. Echeverria for melanoma. SOCIAL HISTORY: Social History Tobacco Use Smoking status: Former Types: Cigarettes Quit date: 08/02/2018 Years since quittin.1 Smokeless tobacco: Never Vaping Use Vaping Use: Never used Substance Use Topics Alcohol use: Yes Comment: occasionally Drug use: Never No past medical history on file. No family history on file. Current Outpatient Medications Medication Sig LORazepam (ATIVAN) 1 mg tablet One tablet 30 minutes prior to MRI REPATHA SURECLICK 140 mg/mL pen injector Inject [...] No current facility-administered medications for this visit. REVIEW OF SYSTEMS: Neurological : No complaint of headache No complaint of tinnitus No complaint of decreased hearing No complaint of diplopia No complaints of blurred vision. No complaint of arm/leg numbness No problem with limb coordination No complaint of syncope No complaints of seizures. No complaints of memory changes or disorientation General : Constitutional: No recent fever or weight loss. Eyes: No history of glaucoma or cataracts Skin: + Melanoma ENMT: No recent ear infection, nasal congestion, mouth sores or sore throat. CV: No history of chest pain, palpitations or leg swelling Respiratory: No history of SOB, wheezing or recent cough. Gastrointestinal: No history of nausea, vomiting, dysphagia or abdominal pain. Genitourinary: No history of hematuria or dysuria. Musculoskeletal: No complaint of arthritis, unstable gait or arm/leg weakness Psychiatric: No history of hallucinations, depression, or anxiety Objective PHYSICAL EXAMINATION: BP 141/86 Pulse 81 Wt 97 kg (213 lb 13.5 oz) LMP 09/08/2019 SpO2 99% BMI 35.63 kg/m? General appearance: Well appearing, alert, in no acute distress Skin: Skin color, texture, turgor normal, no suspicious rashes or lesions Oropharynx: Lips, mucosa, and tongue normal, teeth and gums normal Extremities: No deformities, edema, skin discoloration, clubbing or cyanosis. NEUROLOGICAL EXAM: Higher integrative functions: Oriented to person, place AND time. Attention Span and Concentration: Good. Language: Good comprehension. Speech clear and coherent Fund of Knowledge: Good. 2nd CN: Full visual boyd. 3rd,4th,6th CN: Pupils (=), round, react to light, full extraocular movements. 5th CN: No decrease in facial sensation 7th CN: Facial muscles symmetric and strong. 8th CN: Hears finger rub well bilaterally. 9th CN: Gag reflex not tested 10th CN: Spontaneous palate movement, full and symmetric. 11th CN: Full strength in shoulder shrug. 12th CN: Tongue protrusion full and midline. Sensation: No decrease in sensation in upper or lower limbs to touch. Musculoskeletal: Gait is normal. Motor: 5/5, R=L, UE=LE. Normal muscle tone without atrophy in all limbs. Coordination: Rapid alternating movements fast and smooth all limbs. No dysdiadochokinesis. IMAGING STUDIES: MRI BRAIN WO/W IVCON MRI Report MRI BRAIN WO/W IVCON Exam End: 09/12/2023 11:35 AM (Final result) Narrative: * * *Final Report* * * DATE OF EXAM: Sep 12 2023 11:35AM [facility] 0295 - MRI BRAIN WO/W IVCON / ACCESSION (more content not included)... Normal [facility] MR Brain WO and W contrast I Von 09-12-2023 IMPRESSION: Unchanged size of presumed 9 mm meningioma along the left frontal convexity without substantial mass effect. Independent Distributor: [employer] Transcribe Date/Time: Sep 12 2023 11:55A Dictated by : IAN DUNNE MD This examination was interpreted and the report reviewed and electronically signed by: IAN DUNNE MD on Sep 12 2023 11:58AM [facility] DIVISION OF RADIOLOGY * * *Final Report* * * DATE OF EXAM: Sep 12 2023 11:35AM [facility] 0295 - MRI BRAIN WO/W IVCON / PROCEDURE REASON: Benign neoplasm of meninges (HCC) * * * * Physician Interpretation * * * * EXAMINATION: MRI BRAIN WO/W IVCON CLINICAL HISTORY: Meningioma TECHNIQUE: Routine brain MRI protocol without and with contrast including diffusion images. MQ: MRBWOW_2 Contrast: 20 mL Dotarem IV COMPARISON: Treatment planning MRI of the brain 01/27/2023 RESULT: Acute Change: There is no evidence of restricted diffusion to suggest an acute infarct. Hemorrhage: No evidence of intraparenchymal hemorrhage. Mass Lesion/ Mass Effect: Unchanged size and extent of 9 mm enhancing extra-axial dural based mass along the left frontal convexity without substantial mass effect. Chronic Change: The white matter is within normal limits of signal intensity for age. Parenchyma: No significant volume loss for age. Ventricles: Normal caliber and morphology. Skull Base: Partially empty sella turcica. Craniocervical junction is normal. No significant marrow replacement process. Vasculature: The major intracranial arteries and dural venous sinuses are patent. Other: The visualized paranasal sinuses and mastoid air cells are clear. The orbits and extracranial soft tissues are unremarkable. DIVISION OF RADIOLOGY Provider, Aman Victor - 09/12/2023 * * *Final Report* * * DATE OF EXAM: Sep 12 2023 11:35AM [facility] 0295 - MRI BRAIN WO/W IVCON / PROCEDURE REASON: Benign neoplasm of meninges (HCC) * * * * Physician Interpretation * * * * EXAMINATION: MRI BRAIN WO/W IVCON CLINICAL HISTORY: Meningioma TECHNIQUE: Routine brain MRI protocol without and with contrast including diffusion images. MQ: MRBWOW_2 Contrast: 20 mL Dotarem IV COMPARISON: Treatment planning MRI of the brain 01/27/2023 RESULT: Acute Change: There is no evidence of restricted diffusion to suggest an acute infarct. Hemorrhage: No evidence of intraparenchymal hemorrhage. Mass Lesion/ Mass Effect: Unchanged size and extent of 9 mm enhancing extra-axial dural based mass along the left frontal convexity without substantial mass effect. Chronic Change: The white matter is within normal limits of signal intensity for age. Parenchyma: No significant volume loss for age. Ventricles: Normal caliber and morphology. Skull Base: Partially empty sella turcica. Craniocervical junction is normal. No significant marrow replacement process. Vasculature: The major intracranial arteries and dural venous sinuses are patent. Other: The visualized paranasal sinuses and mastoid air cells are clear. The orbits and extracranial soft tissues are unremarkable. IMPRESSION IMPRESSION: Unchanged size of presumed 9 mm meningioma along the left frontal convexity without substantial mass effect. Independent [facility] Transcribe Date/Time: Sep 12 2023 11:55A Dictated by : IAN DUNNE MD This examination was interpreted and the report reviewed and electronically signed by: IAN DUNNE MD on Sep 12 2023 11:58AM EST [facility] Radiology Study observation (narrative) [facility] MR Brain WO and W contrast I VOrdered By: [facility] Provider on 09-12-2023 [facility] MRI BRAIN WO/W IVCONon 09-11 MRI BRAIN WO/W IVCON * * *Final Report* * * DATE OF EXAM: Sep 12 2023 11:35AM [facility] 0295 - MRI BRAIN WO/W IVCON / PROCEDURE REASON: Benign neoplasm of meninges (HCC) * * * * Physician Interpretation * * * * EXAMINATION: MRI BRAIN WO/W IVCON CLINICAL HISTORY: Meningioma TECHNIQUE: Routine brain MRI protocol without and with contrast including diffusion images. MQ: MRBWOW_2 Contrast: 20 mL Dotarem IV COMPARISON: Treatment planning MRI of the brain 01/27/2023 RESULT: Acute Change: There is no evidence of restricted diffusion to suggest an acute infarct. Hemorrhage: No evidence of intraparenchymal hemorrhage. Mass Lesion/ Mass Effect: Unchanged size and extent of 9 mm enhancing extra-axial dural based mass along the left frontal convexity without substantial mass effect. Chronic Change: The white matter is within normal limits of signal intensity for age. Parenchyma: No significant volume loss for age. Ventricles: Normal caliber and morphology. Skull Base: Partially empty sella turcica. Craniocervical junction is normal. No significant marrow replacement process. Vasculature: The major intracranial arteries and dural venous sinuses are patent. Other: The visualized paranasal sinuses and mastoid air cells are clear. The orbits and extracranial soft tissues are unremarkable. IMPRESSION: Unchanged size of presumed 9 mm meningioma along the left frontal convexity without substantial mass effect. Independent Distributor: [facility] Transcribe Date/Time: Sep 12 2023 11:55A Dictated by : IAN DUNNE MD This examination was interpreted and the report reviewed and electronically signed by: IAN DUNNE MD on Sep 12 2023 11:58AM EST [id number] Normal [facility] ----- BEN CRUZ ([id number]) 1975 F Date Time Provider Department 09/08/23 ABDIAZIZ BUNCH [facility] During your visit today, we recorded the following information about you: Johann Henriquez RN 09/08/2023 12:36 PM Signed Patient called in requesting ativan for her MRI. Chart review indicates patient has been prescribed 1mg of ativan prior to past MRI's and has tolerated it well. Orders pended to provider for review. 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 - dexAMETHasone (DECADRON) 4 mg tablet Start [...] once daily. Problem List As Of Date 09/08/2023 Noted Resolved 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] 01/27/2023 Prescriptions ordered this encounter Disp Refills Start End LORAZEPAM 1 MG TABLET 1 ta* 0 09/08/2023 09/29/2023 Sig: One tablet 30 minutes prior to MRI Encounter Status:Closed by ABDIAZIZ BUNCH on 09/08/23 [facility] CNOVSPon 06-13-2023 CNOVS Visit (SP) Office ([facility]) ----- BEN CRUZ ([id number]) 1975 F Date Time Provider Department 06/13/23 9:30 AM DEBBIE ECHEVERRIA During your visit today, we recorded the following information about you: Temperature Pulse Respiration Blood pressure 97.6 degrees 79/minute 20/minute 142/92 Weight 95.8 kg Nicole Beal MD 06/14/2023 3:36 PM Addendum [facility] GASTROENTEROLOGY ONCOLOGY ESTABLISHED PATIENT VISIT PATIENT NAME: [...] no new issues and last visit with fruit thinner machine operator was about 6 months ago. She denies [...] Lymph 1.00 - 4.00 k/uL 2.12 Abs Barren <0.87 k/uL 0.72 Abs Eosin <0.46 k/uL [...] 6 months - recommend follow up with fruit thinner machine operator Patient seen and discussed with Gastroenterology Oncology staff, Dr Ehceverria Please do not hesitate to contact with [...] beckwith co (more content not included)... Normal [facility] ECG 12 lead ECGon 06-05-2023 ECG 12 lead ECG [facility] [place] [address] Electrocardiograph Report Signed Patient: Ben Cruz MR#: [id number] 3 : 1975 Acct:[id number] Age/Sex: 47 / F ADM Date: 06/05/23 Loc: EKGCARDIO Room: Type: [facility] Attending Dr: Jes Vieira MD Ordering Provider: [...] No previous ECGs available Confirmed by Demetri Sahh ([id number]) on 06/07/2023 7:37:06 PM Referred By: Electronically Signed By:Demetri Shah Transcribed By: MUS Signed By Demetri Shah MD 06/07/23 1937 [facility] CNCOon 05-12-2023 CNCO Letter Text Normal [facility] CNPNon 05-12-2023 CNPN Telephone ([facility]) ----- BEN CRUZ ([id number]) 1975 F Date Time Provider Department 05/12/23 GURPREET BECKWITH [facility] During your visit today, we recorded the following information about you: Marli Patino 05/12/2023 9:28 AM Signed Per Johann BIRD)-via email: This patient had GK in January and their follow up MRI and appointment was never scheduled. She needs an MRI at [facility] and follow up same day with Abdiaziz bunch. Schedule this for September please. Appointments scheduled. Mychart and letter sent. Marli Patino Allergies As of Date: 05/12/2023 (No Known Allergies) Date Reviewed: 01/27/2023 Reviewed by: Anton Terrell, BIGG - Fully Assessed Reason for Visit: Appointment [[id number]] Cmt: Abdiaziz Bunch Prescriptions as of 05/12/2023 - dexAMETHasone (DECADRON) [...] Encounter Status:Closed by MARLI PATINO on 05/12/23 [facility] Louise 05-11-2023 CNPN Telephone ([facility]) ----- BEN CRUZ ([id number]) 1975 F Date Time Provider Department 05/11/23 JOHANN HENRIQUEZ [facility] During your visit today, we recorded the [...] Fully Assessed Reason for Visit: Patient Question [6940] Prescriptions as of 05/11/2023 - dexAMETHasone (DECADRON) [...] Status:Closed by JOHANN HENRIQUEZ on 05/11/23 Normal [facility] Outside Colonoscopyon 2022 Outside Colonoscopy [id number] [facility] Reminderson 03-09-2023 Reminders - From: Veronica Jack LPN To: N - Clinical; Sent: 03/09/2023 13:42:54 EST Show up: 02/06/2033 07:00:00 EST Subject: colonoscopy recall Due Date/Time: 03/08/2033 07:00:00 EST Reminder/Recall Patient due for screening colonoscopy 03/08/2033. [facility] Consent for Procedure/Surger yon 02-21-2023 Consent for Procedure/Surgery [id number]#[id number] [facility] Facesheeton 02-20-2023 Facesheet [id number]#[id number] [facility] Ambulatory Visit Summaryon 1 04-19-2022 Ambulatory Visit [...] you for choosing us for your care. [facility] ----- BEN CRUZ ([id number]) 1975 F Date Time Provider Department 02/07/23 JOHANN HENRIQUEZ [facility] During your visit today, we recorded the following information about you: Johann Henriquez RN 02/07/2023 3:50 PM Meagan Balderrama returned my [...] Encounter Status:Closed by JOHANN HENRIQUEZ on 02/07/23 [facility] Louise 02-06-2023 [facility] ----- BEN CRUZ ([id number]) 1975 F Date Time Provider Department 02/06/23 JOHANN HENRIQUEZ [facility] During your visit today, we recorded the following information about you: Johann Henriquez RN 02/06/2023 1:20 PM Signed Calling Ben for post-GKRS follow-up. Unable to reach at this time. Left voicemail. Johann Henriquez RN 02/07/2023 1:19 PM Signed 2nd attempt to reach out, patient unavailable. Will send [employer] message with contact information to call if [...] Encounter Status:Closed by JOHANN HENRIQUEZ on 02/07/23 [facility] CNOPon 01-27-2023 CNOP Operative Note (Enc) ([facility]) ----- Encounter Status:Closed by GURPREET BECKWITH on 01/27/23 [facility] CNOP Operative Note (Enc) ([facility]) ----- Encounter Status:Closed by GURPREET BECKWITH on 01/27/23 [facility] CNOVon 01-27-2023 CNOV Office Visit ([facility] ) ----- BEN CURZ ([id number]) 1975 F Date Time Provider Department 01/27/23 12:30 PM GURPREET BECKWITH [facility] During your visit today, we recorded the following information about you: Gurpreet Beckwith DO PhD 01/27/2023 10:12 AM Signed Brain Tumor [...] 7.1 AL (more content not included)... Normal [facility] CNOV Office Visit ([facility] ) ----- BEN CRUZ ([id number]) 1975 F Date Time Provider Department 01/27/23 8:30 AM MASK PLACEMENT [facility]US [facility] During your visit today, we [...] Dr. Aria Beckwith DO, Gayle Acevedo RN [id number] Mask SIM completed. Ben Cruz returned to department for treatment # 1 of 1. Is patient receiving immunotherapy infusions: Not Applicable. Patient's Age: 47 Menstruation Status: Hysterectomy 2019 [facility] Results: N/A test not performed QC: Yes, [...] Segura Kaitlin, RN 01/27/2023 8:35 AM Addendum [facility] Discharge Instructions [...] a physician or hospital other than the [facility] with any problem related to the Gamma [...] may your physician, Dr. Virgil Beckwith at [phone] Monday through Monday 8:00 am to 5:00 pm, or call the [facility] nurse Monday through Monday 8:00 am to 4:00 pm at [phone]. In the evening or on weekends, call [phone] or toll-free [phone] and ask the fleshing machine operator to page your neurosurgeon's resident systems development consultant. Referring Provider: GURPREET BECKWITH [[id number]] Allergies As [...] [D32.9] 01/27/2023 Other instructions from your clinician: [facility] Discharge Instructions As with any surgery there are risks and potential side effects. Th (more content not included)... Normal [facility] CT BRAIN WO IVCONon 01-28-20 [...] were required COMPARISON: Concurrent brain MRI RESULT: Stopper Setter (topogram) images: No additional findings. Post-operative change: [...] OF EXTRA-AXIAL ENHANCING TISSUE SEEN ON MRI Independent Distributor: [employer] Transcribe Date/Time: Jan 27 2023 8:21A Dictated by : ESTUARDO WHALEY MD This examination was interpreted and the report reviewed and electronically signed by: ESTUARDO WHALEY MD on Jan 27 2023 8:23AM EST [id number] Normal [facility] MRI BRAIN LOCAL W IVCONon MRI [...] FRONTAL LOBE, UNCHANGED GOING BACK TO 06/01/2021 Independent Distributor: [facility] Transcribe Date/Time: Jan 27 2023 8:08A Dictated by : ESTUARDO WHALEY MD This examination was interpreted and the report reviewed and electronically signed by: ESTUARDO WHALEY MD on Jan 27 2023 8:20AM EST [id number] Normal [facility] MRI BRAIN LOCALIZATION W IVC ONon 01-27-2023 [facility] Physician Referralon 023 Physician Referral [id number] Normal [facility] Physician Referralon 023 Physician Referral [id number] Normal [facility] CNOVSPon 12-22-2022 CNOVSP Visit (SP) Office ([facility]) ----- BEN CRUZ ([id number]) 1975 F Date Time Provider Department 12/22/22 [...] were negative. Declined an adjuvant trial in [place]. Baseline imaging today is negative CC: Melanoma [...] No Does patient want to see a Helper Marble Finisher? No (yes to any of above refer [...] for Encounter Date Provider Department Center 12/22/2022 [id number] EC[place] [facility] [place] [facility] Prescriptions as of 12/23/2022 - meloxicam (MOBIC) 15 mg tablet - inclisiran (LEQVIO) 284 mg/1.5 mL injection - omeprazole (PRILOSEC) 20 mg capsule Take 20 mg by mouth once daily. Problem List As Of Date: 12/22/2022 (None) Visit Notes: >> Ava Urbina LPN [facility] Dec 22, 2022 10:14 AM Status: Signed Additional intake questions: Has the patient had fever, nausea, vomiting, diarrhea, constipation, fatigue for > 1 week? No Does the patient have a decreased appetite? No Does patient want to see a Helper Marble Finisher? No (yes to any of above refer patient to schedulers for dietitian appointment) ) Does patient have any new or increased numbness or tingling of extremities? No Is patient interested in fertility information? No Does patient need any prescription refills? No Does patient have an advanced directive in place? No, Patient refused referral to Social Work or Resource Center [facility] Louise 11-15-2022 NICOL[facility] Telephone ([facility]) ----- BEN CRUZ ([id number]) 1975 F Date Time Provider Department 11/15/22 BETZY HEARD [facility] During your visit today, we recorded the following information about you: Betzy Heard RN 11/15/2022 2:04 PM Signed Calling Ben to follow up on [employer] message about scheduling gamma knife for 01/27/2023 No answer, left message stating that I'll go ahead and place the GK orders. Reminded to disregard ANY appointment times she sees in [employer], any automated text reminders or automated phone calls for 01/27/23 She will receive a call from the GK nurse or radiation therapist the day before with her arrival time. If she has any questions, I left office phone # for call back or she can send a [employer] message. I will send out a GK folder with additional information related to Mask Based Gamma Knife Radiosurgery Betzy Heard RN, BSN Centrifugal Screen Tender [facility] Allergies As of Date: 11/15/2022 (No Known Allergies) Date Reviewed: 10/19/2022 Reviewed by: Trista Bonilla APRN.PRESIDENT AND CMO - Fully Assessed Reason for Visit: Centrifugal Screen Tender - Other [3601] Cmt: Schedule gamma knife 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 Prescriptions as of 11/15/2022 - meloxicam (MOBIC) 15 mg tablet - inclisiran (LEQVIO) 284 mg/1.5 mL injection - omeprazole (PRILOSEC) 20 mg capsule Take 20 mg by mouth once daily. Problem List As Of Date: 11/15/2022 (None) Encounter Status:Closed by BETZY HEARD on 11/15/22 [facility] BEN CRUZ ([id number]) 1975 F Date Time Provider Department 7/20/23 BETZY HEARD [facility] During your visit today, we recorded the following information about you: Betzy Heard RN 10/20/2022 11:56 AM Signed Time Frame: As soon as can be scheduled - can be virtual or in clinic Orders: n/a Provider: Tang Referring: Pelon Diagnosis: meningioma Allergies As of Date: 10/20/2022 (No Known Allergies) Date Reviewed: 10/19/2022 Reviewed by: Trista Bonilla APRN.PRESIDENT AND CMO - Fully Assessed Reason for Visit: GIN - new pt consult with Dr. Beckwith [Other] Prescriptions as of 11/10/2022 - meloxicam (MOBIC) 15 mg tablet - inclisiran (LEQVIO) 284 mg/1.5 mL injection - omeprazole (PRILOSEC) 20 mg capsule Take 20 mg by mouth once daily. Problem List As Of Date: 10/20/2022 (None) Encounter Status:Closed by BETZY HEARD on 11/10/22 Normal [facility] MRI BRAIN WO/W IVCONon 10-17 MRI BRAIN WO/W IVCON * * *Final Report* * * DATE OF EXAM: Oct 17 2022 11:20AM [facility] 0295 - MRI BRAIN WO/W IVCON / PROCEDURE REASON: Benign neoplasm of meninges (HCC) * * * * Physician Interpretation * * * * EXAMINATION: MRI BRAIN WO/W IVCON HISTORY: history of desmoplastic melanoma T4aN0, with incidentally discovered subcentimeter L frontal meningioma noted on staging MRI of the ain obtained 06/01/2021 presenting for further evaluation [...] with air-fluid level suggestive of acute/active sinusitis. Independent Dist[facility] Transcribe Date/Time: Oct 17 2022 11:35A Dictated by : CHUCKY BRAY MD This examination was interpreted and the report reviewed and electronically signed by: CHUCKY BRAY MD on Oct 17 2022 11:45AM EST [id number] Normal [facility] Complete Blood Count Auto Di ffon 09-12-2022 Basophils (Bld) [#/Vol] 0.1 10*3/uL Normal 0.0-0.2 [facility] Comment on above: Result Comment: PERF ORMED BY: [place] [address] PATHOLOGIST DIE KEEPER ANRULFO STYLES M.D. Performed By: #### C BC #### [place] [address] [place] Basophils/100 WBC (Bld) 0.7 % Normal . [facility] Comment on above: Performed By: #### C BC #### [facility] [address] [place] [address] [place] Eosinophils (Bld) [#/Vol] 0.2 10*3/uL Normal 0.0-0.45 [facility] Comment on above: Performed By: #### C BC #### [place] [address] [place] Eosinophils/100 WBC (Bld) 2.7 % Normal . [facility] Comment on above: Performed By: #### C BC #### [facility] [address] Erythrocyte distribution width (RBC) [Ratio] 12.9 % Normal 11.9-15.3 [facility] Comment on above: Performed By: #### C BC #### [facility] [address] Hematocrit (Bld) [Volume fraction] 41.8 % Normal 34.0-46.4 [facility] Comment on above: Performed By: #### C BC #### [address] Hemoglobin (Bld) [Mass/Vol] 14.3 g/dL Normal 11.8-15.4 [facility] Comment on above: Performed By: #### C BC #### [address] Lymphocytes (Bld) [#/Vol] 2.0 10*3/uL Normal 1.00-4.8 [facility] Comment on above: Performed By: #### C BC #### [address] Lymphocytes/100 WBC (Bld) 25.3 % Normal . [facility] Comment on above: Performed By: #### C BC #### [address] MCH (RBC) [Entitic mass] 29.8 pg Normal 24.7-34.3 [facility] Comment on above: Performed By: #### C BC #### [address] MCV (RBC) [Entitic vol] 87.2 fL Normal 80-100 [facility] Comment on above: Performed By: #### C BC #### [address] Mean Corpuscular HGB Conc 34.2 g/dL Normal 32.0-35.0 [facility] Comment on above: Performed By: #### C BC #### [address] Monocytes (Bld) [#/Vol] 0.7 10*3/uL Normal 0.0-0.8 [facility] Comment on above: Performed By: #### C BC #### [facility] [address] Monocytes/100 WBC (Bld) 9.1 % Normal . [facility] Comment on above: Performed By: #### C BC #### [facility] [address] Neutrophils (Bld) [#/Vol] 4.8 10*3/uL Normal 1.8-7.7 [facility] Comment on above: Performed By: #### C BC #### [address] Neutrophils/100 WBC (Bld) 62.2 % Normal . [facility] Comment on above: Performed By: #### C BC #### [address] NRBC% 0.4 /100{WBC} Normal 0-0.5 [facility] Comment on above: Performed By: #### C BC #### [address] Platelet mean volume (Bld) [Entitic vol] 7.5 fL Normal 6.3-10.7 [facility] Comment on above: Performed By: #### C BC #### [place] [address] [place] Platelets (Bld) [#/Vol] 225 10*3/uL Normal 150-450 [facility] Comment on above: Performed By: #### C BC #### [facility] [address] RBC (Bld) [#/Vol] 4.80 10*6/uL Normal 3.60-5.00 [facility] Comment on above: Performed By: #### C BC #### [address] WBC (Bld) [#/Vol] 7.7 10*3/uL Normal 3.8-11.6 [facility] Comment on above: Performed By: #### C BC #### [facility] [address] XR chest 2V*on 09-12-2022 XR chest 2V* [facility] [place] [address] [place] [id number] XRay Report Signed Patient: Ben Cruz MR#: [id number] 3 : 1975 Acct:[id number] Age/Sex: 47 / F ADM Date: 09/12/22 Loc: [place] Room: Type: [facility] Attending Dr: Taz Rossi DPBrendan Copies to: Taz Rossi DPM Ordering Provider: [...] Florentino Woods M.D.09/12/2022 4:53 PM Dictation Location: [place] [address] Transcribed By: [facility] 09/12/221652 Dictated By: Florentino Woods II, MD 09/12/221651 Signed By: 09/12/221652 Normal [facility] MRI BRAIN WO/W IVCONon 02-23 [facility] CBC AUTO DIFFon 11-18-2021 BASO # 0.0 103/ul Normal 0.0-0.1 [facility] Comment on above: Performed By: #### H FPFCBC #### [facility] [address] [place] [address] [address] Arcenio Billy Basophils/100 WBC (Bld) 0.4 % Normal 0.2-2.0 [facility] Comment on above: Performed By: #### H FPFCBC #### [facility] [address] [place] [address] Dr. Arcenio Billy EO # 0.2 103/ul Normal 0.0-0.7 [facility] Comment on above: Performed By: #### H FPFCBC #### [facility] [address] [place] [address] Dr. Arcenio Billy Eosinophils/100 WBC (Bld) 3.0 % Normal 0.9-7.0 [facility] Comment on above: Performed By: #### H FPFCBC #### [facility] [address] [place] [address] Dr. Arcenio Billy Erythrocyte distribution width (RBC) [Ratio] 12.1 % Normal 11.0-15.0 [facility] Comment on above: Performed By: #### H FPFCBC #### [facility] [address] [place] [address] Dr. Arcenio Billy Hematocrit (Bld) [Volume fraction] 43.1 % Normal 36.0-48.0 [facility] Comment on above: Performed By: #### H FPFCBC #### [facility] [address] [place] [address] Dr. Arcenio Billy Hemoglobin (Bld) [Mass/Vol] 14.1 g/dL Normal 12.0-16.0 [facility] Comment on above: Performed By: #### H FPFCBC #### [facility] [address] [place] [address] Dr. Arcenio Billy IG # 0.01 10e3/ul Normal 0.00-0.03 [facility] Comment on above: Performed By: #### H FPFCBC #### [facility] [address] [place] [address] Dr. Arcenio Billy IG % 0.2 % Normal 0.0-0.5 [facility] Comment on above: Performed By: #### H FPFCBC #### [facility] [address] [place] [address] Dr. Arcenio Billy LYMPH # 1.9 103/ul Normal 1.2-3.8 [facility] Comment on above: Performed By: #### H FPFCBC #### [facility] [address] [place] [address] Dr. Arcenio Billy Lymphocytes/100 WBC (Bld) 35.7 % Normal 20.5-60.0 [facility] Comment on above: Performed By: #### H FPFCBC #### [facility] [address] [place] [address] Dr. Arcenio Billy MCH (RBC) [Entitic mass] 28.8 pg Normal 26.7-34.0 [facility] Comment on above: Performed By: #### H FPFCBC #### [facility] [address] [place] [address] Dr. Arcenio Billy MCHC (RBC) [Mass/Vol] 32.7 g/dL Normal 29.9-35.2 [facility] Comment on above: Performed By: #### H FPFCBC #### [facility] [address] [place] [address] Dr. Arcenio Billy MCV (RBC) [Entitic vol] 88.1 fL Normal 81.0-99.0 [facility] Comment on above: Performed By: #### H FPFCBC #### [facility] [address] [place] [address] Dr. Arcenio Billy MONO # 0.5 103/ul Normal 0.3-0.8 [facility] Comment on above: Performed By: #### H FPFCBC #### [facility] [address] [place] [address] Dr. Arcenio Billy Monocytes/100 WBC (Bld) 9.9 % Normal 1.7-12.0 [facility] Comment on above: Performed By: #### H FPFCBC #### [facility] [address] [place] [address] Dr. Arcenio Billy NEUT # 2.7 103/ul Normal 1.4-6.5 [facility] Comment on above: Performed By: #### H FPFCBC #### [facility] [address] [place] [address] Dr. Arcenio Billy Neutrophils/100 WBC (Bld) 50.8 % Normal 43.0-75.0 [facility] Comment on above: Performed By: #### H FPFCBC #### [facility] [address] [place] [address] Dr. Arcenio Billy Platelet mean volume (Bld) [Entitic vol] 8.9 fL Critically low 9.5-13.5 [facility] Comment on above: Performed By: #### H FPFCBC #### [facility] [address] [place] [address] Dr. Arcenio Billy PLT 271 103/ul Normal 150-450 [facility] Comment on above: Performed By: #### H FPFCBC #### [facility] [address] [place] [address] Dr. Arcenio Billy RBC 4.89 106/ul Normal 4.20-5.40 [facility] Comment on above: Performed By: #### H FPFCBC #### [facility] [address] [place] [address] Dr. Arcenio Billy WBC 5.3 103/ul Normal 4.0-11.0 [facility] Comment on above: Performed By: #### H FPFCBC #### [facility] [address] [place] [address] Dr. Arcenio Billy [facility] PROFILEon 022 Albumin [Mass/Vol] 3.7 g/dL Normal 3.4-5.0 [facility] Comment on above: Performed By: #### H FPF #### [facility] [address] [place] [address] Dr. Arcenio Billy Albumin/Globulin [Mass ratio] 1.1 {ratio} Normal [facility] Comment on above: Performed By: #### H FPF #### [facility] [address] [place] [address] Dr. Arcenio Billy ALP [Catalytic activity/Vol] 60 U/L Normal 46-116 [facility] Comment on above: Performed By: #### H FPF #### [facility] [address] [place] [address] Dr. Arcenio Billy ALT [Catalytic activity/Vol] 47 U/L Normal 14-59 [facility] Comment on above: Performed By: #### H FPF #### [facility] [address] [place] [address] [address] Arcenio Billy AST [Catalytic activity/Vol] 25 U/L Normal 15-37 [facility] Comment on above: Performed By: #### H FPF #### [facility] [address] [place] [address] [address] Arcenio Billy Bilirubin [Mass/Vol] 0.5 mg/dL Normal 0.2-1.0 [facility] Comment on above: Performed By: #### H FPF #### [facility] [address] [place] [address] Dr. Arcenio Billy Calcium [Mass/Vol] 8.8 mg/dL Normal 8.5-10.1 [facility] Comment on above: Performed By: #### H FPF #### [facility] [address] [place] [address] Dr. Arcenio Billy Chloride [Moles/Vol] 103 mmol/L Normal 98-107 [facility] Comment on above: Performed By: #### H FPF #### [facility] [address] [place] [address] Dr. Arcenio Billy CHOL-HDL RATIO NORM SEE BELOW Normal [facility] Comment on above: Result Comment: 3.3 - 4.4 LOW RISK 4.4 - 7.1 AVERAGE RISK 7.1 - 11.0 MODERATE RISK >11.0 HIGH RISK Performed By: #### H FPF #### [facility] [address] [place] [address] Dr. Arcenio Billy Cholesterol [Mass/Vol] 352 mg/dL Critically high <=200 [facility] Comment on above: Performed By: #### H FPF #### [facility] [address] [place] [address] Dr. Arcenio Billy Cholesterol in HDL [Mass/Vol] 34 mg/dL Critically low 40-60 [facility] Comment on above: Performed By: #### H FPF #### [facility] [address] [place] [address] [address] Arcenio Billy Cholesterol in LDL [Mass/Vol] 274.2 mg/dL Normal [facility] Comment on above: Performed By: #### H FPF #### [facility] [address] [place] [address] [address] Arcenio Billy Cholesterol.total/ Cholesterol in HDL [Mass ratio] 10.4 {ratio} Normal [facility] Comment on above: Performed By: #### H FPF #### [facility] [address] [place] [address] [address] Arcenio Billy CO2 [Moles/Vol] 25.7 mmol/L Normal 21.0-32.0 [facility] Comment on above: Performed By: #### H FPF #### [facility] [address] [place] [address] [address] Arcenio Billy Creatinine [Mass/Vol] 0.91 mg/dL Normal 0.55-1.02 [facility] Comment on above: Performed By: #### H FPF #### [facility] [address] [place] [address] [address] Arcenio Billy Globulin (S) [Mass/Vol] 3.4 g/dL Normal [facility] Comment on above: Performed By: #### H FPF #### [facility] [address] [place] [address] [address] Arcenio Billy Glucose [Mass/Vol] 91 mg/dL Normal 74-106 [facility] Comment on above: Performed By: #### H FPF #### [facility] [address] [place] [address] [address] Arcenio Billy HDL NORMAL > or = 60 mg/dl - LO W CARDIOVASCULAR RISK <40 mg/dl - HIGH CARDIOVASCULAR RISK Normal [facility] Comment on above: Performed By: #### H FPF #### [facility] [address] [address] [address] Arcenio Billy LDL CALC NORMAL SEE BELOW Normal [facility] Comment on above: Result Comment: <100 mg/dl OPTIMAL 100 - 129 mg/dl NEAR OR ABOVE OPTIMAL 130 - 159 mg/dl BORDERLINE HIGH 160 - 189 mg/dl HIGH >190 mg/dl VERY HIGH Performed By: #### H FPF #### [facility] [address] [place] [address] [address] Arcenio Billy Potassium [Moles/Vol] 4.1 mmol/L Normal 3.5-5.1 [facility] Comment on above: Performed By: #### H FPF #### [facility] [address] [place] [address] [address] Arcenio Billy Protein [Mass/Vol] 7.1 g/dL Normal 6.4-8.2 [facility] Comment on above: Performed By: #### H FPF #### [facility] [address] [place] [address] Dr. Arcenio Billy Sodium [Moles/Vol] 139 mmol/L Normal 136-145 [facility] Comment on above: Performed By: #### H FPF #### [facility] [address] [place] [address] Dr. Arcenio Billy Triglyceride [Mass/Vol] 219 mg/dL Critically high <=150 [facility] Comment on above: Performed By: #### H FPF #### [facility] [address] [place] [address] Dr. Arcenio Billy TSH 1.717 uIU/mL Normal 0.358-3.740 [facility] Comment on above: Performed By: #### H FPF #### [facility] [address] [place] [address] Dr. Arcenio Billy Urea nitrogen [Mass/Vol] 11.0 mg/dL Normal 7.0-18.0 [facility] Comment on above: Performed By: #### H FPF #### [facility] [address] [place] [address] Dr. Arcenio Billy Urea nitrogen/Creatinin e [Mass ratio] 12.1 mg/mg Normal [facility] Comment on above: Performed By: #### H FPF #### [facility] [address] [place] [address] [address] Arcenio Billy VLDL CALC 43.8 mg/dL Normal [facility] Comment on above: Performed By: #### H FPF #### [facility] [address] [address] [address] Arcenio Billy PAP ACOG PANEL 2: 30 to 65on 09-19-2021 . . Normal [facility] Comment on above: Result Comment: Perf ormed at: WB Performed By: #### [id number] #### [facility] [address] [place] [address] Dr. Arcenio Billy Age Gdln ACOG Testing 30-65 [facility] Comment on above: Performed By: #### 4 [id number] #### [facility] [address] [place] [address] Dr. Arcenio Billy DIAGNOSIS: Comment Normal [facility] Comment on above: Result Comment: NEGA TIVE FOR INTRAEPITHELIAL LESION OR MALIGNANCY. FUNGAL ORGANISMS MORPHOLOGICALLY CONSISTENT WITH MOSES SPECIES ARE PRESENT. Performed at: WB Performed By: #### [id number] #### [facility] [address] [place] [address] Dr. Arcenio Billy HPV Aptima Negative Normal Negative [facility] Comment on above: Result Comment: This nucleic acid amplification test detects fourteen high-risk HPV types (16,18,31,33,35,39,45,51,52,56,58,59,66,68) without differentiation. Performed at: =G Performed By: #### [id number] #### [facility] [address] [place] [address] Dr. Arcenio Billy Methodology: Comment Normal [facility] Comment on above: Result Comment: This liquid based ThinPrep(R) pap test was screened with the use of an image guided system. Performed at: WB Performed By: #### [id number] #### [facility] [address] [place] [address] Dr. Arcenio Billy Note: Comment Normal [facility] Comment on above: Result Comment: The Pap smear is a screening test designed to aid in the detection of premalignant and malignant conditions of the uterine cervix. It is not a diagnostic procedure and should not be used as the sole means of detecting cervical cancer. Both false-positive and false-negative reports do occur. . Performed at: WB Performed By: #### [id number] #### [facility] [address] [address] [address] Arcenio Billy Performed by: Comment Normal [facility] Comment on above: Result Comment: Bronson Cordero, Staff Development Educator (ASCP) Performed at: WB Performed By: #### 4 [id number] #### [facility] [address] [address] [address] Arcenio Billy Specimen adequacy: Comment Normal [facility] Comment on above: Result Comment: Sati sfactory for evaluation. No endocervical component is identified. Performed at: WB Performed By: #### [id number] #### [facility] [address] [address] [address] Arcenio Billy MG MAMM SCREEN 3D JULIO CÉSAR CADon 09-08-2021 MG MAMM SCREEN 3D JULIO CÉSAR CAD Patient: BEN CRUZ Exam Date: 09/08/2021 : 1975 Gender:F Ordering : DR CHELITA VILLANUEVA . Admission #: [id number] Family : Order #: [id number] CLICK HERE TO VIEW EXAM RADIOLOGY REPORT [...] pancreatic cancer at age 71. LOCATION: [facility] BREAST COMPOSITION: Scattered areas fibroglandular density. [...] Mc MD on 09/08/2021 at 11:41 Normal [facility] MRI BRAIN WO/W IVCONon 08-23 [facility] MRI LIVER WO/W IVCONon 06-16 [facility] MRI BRAIN WO/W IVCONon 06-01 [facility] Vital Signs Date Time Vital Sign Value Performing Clinician Facility 09-12-2023 11:41-0400 Body mass index (BMI) [Ratio] 35.63 kg/m2 Abdiaziz Bunch BUSINESS INFORMATION CONSULTANT.PRESIDENT AND CMO Work Phone: [facility] 09-12-2023 11:41-0400 Body weight 97 kg Abdiaziz Bunch BUSINESS INFORMATION CONSULTANT.PRESIDENT AND CMO Work Phone: [facility] 09-12-2023 11:41-0400 Diastolic blood pressure 86 mm[Hg] Abdiaziz Bunch BUSINESS INFORMATION CONSULTANT.PRESIDENT AND CMO Work Phone: [facility] 09-12-2023 11:41-0400 Heart rate 81 /min Abdiaziz Bunch BUSINESS INFORMATION CONSULTANT.PRESIDENT AND CMO Work Phone: [facility] 09-12-2023 11:41-0400 SaO2% (BldA) [Mass fraction] 99 % Abdiaziz Bunch BUSINESS INFORMATION CONSULTANT.PRESIDENT AND CMO Work Phone: [facility] 09-12-2023 11:41-0400 Systolic blood pressure 141 mm[Hg] Abdiaziz Bunch BUSINESS INFORMATION CONSULTANT.PRESIDENT AND CMO Work Phone: [facility] 07-03-2023 10:59-0400 Body height 162.56 cm MD Lissett Vega Work Phone: [facility] 06-13-2023 09:34-0400 Body temperature 97.59 [degF] Debbie Echeverria MD Work Phone: [facility] 06-13-2023 09:34-0400 Body weight 95.8 kg Debbie Echeverria MD Work Phone: [facility] 06-13-2023 09:34-0400 Diastolic blood pressure 92 mm[Hg] Debbie Echeverria MD Work Phone: [facility] 06-13-2023 09:34-0400 Heart rate 79 /min Debbie Echeverria MD Work Phone: [facility] 06-13-2023 09:34-0400 Respiratory rate 20 /min Debbie Echeverria MD Work Phone: [facility] 06-13-2023 09:34-0400 SaO2% (BldA) [Mass fraction] 96 % Debbie Echeverria MD Work Phone: [facility] 06-13-2023 09:34-0400 Systolic blood pressure 142 mm[Hg] Debbie Echeverria MD Work Phone: [facility] 06-05-2023 13:23-0500 Body height 162.56 cm MD Lissett Vega Work Phone: [facility] 06-05-2023 13:23-0500 Body mass index (BMI) [Ratio] 35.6 kg/m2 MD Lissett Vega Work Phone: [facility] 06-05-2023 13:23-0500 Body weight 94.34 kg MD Lissett Vega Work Phone: [facility] 06-05-2023 13:23-0500 Diastolic blood pressure 84 mm[Hg] MD Lissett Vega Work Phone: [facility] 06-05-2023 13:23-0500 Heart rate 88 /min MD Lissett Vega Work Phone: [facility] 06-05-2023 13:23-0500 Respiratory rate 18 /min MD Lissett Vega Work Phone: [facility] 06-05-2023 13:23-0500 SaO2% (BldA) [Mass fraction] 95 % MD Lissett Vega Work Phone: [facility] 06-05-2023 13:23-0500 Systolic blood pressure 122 mm[Hg] MD Lissett Vega Work Phone: [facility] 03-16-2023 13:45-0500 Body height 162.56 cm Lissett Vega Other [employer] Other 03-16-2023 13:45-0500 Body mass index (BMI) [Ratio] 34.5 kg/m2 Lissett Vega Other [employer] Other 03-16-2023 13:45-0500 Body temperature 99.1 [degF] Lissett Vega Other [employer] Other 03-16-2023 13:45-0500 Body weight 91.17 kg Lissett Vega Other [employer] Other 03-16-2023 13:45-0500 Diastolic blood pressure 88 mm[Hg] Lissett Vega Other [employer] Other 03-16-2023 13:45-0500 SaO2% (BldA) [Mass fraction] 98 % Lissett Vega Other [employer] Other 03-16-2023 13:45-0500 Systolic blood pressure 128 mm[Hg] Lissett Vega Other [employer] Other 02-17-2023 14:47-0500 Blood Pressure Location Debbie MARYL [facility] [place] 02-17-2023 14:47-0500 Diastolic blood pressure 84 mm[Hg] Debbie NILL [facility] [place] 02-17-2023 14:47-0500 Heart rate 76 /min Debbie NILL [facility] [place] 02-17-2023 14:47-0500 Respiratory rate 16 /min Debbie NILL [facility] [place] 02-17-2023 14:47-0500 Systolic blood pressure 128 mm[Hg] Debbie DE LOS SANTOS [facility] [place] 09-21-2022 11:30-0400 Body height 162.56 cm Lissett Vega Other [employer] Other 09-21-2022 11:30-0400 Body mass index (BMI) [Ratio] 36.56 kg/m2 Lissett Vega Other [employer] Other 09-21-2022 11:30-0400 Body weight 96.62 kg Lissett Vega Other [employer] Other 09-21-2022 11:30-0400 Diastolic blood pressure 84 mm[Hg] Lissett Vega Other [employer] Other 09-21-2022 11:30-0400 Systolic blood pressure 137 mm[Hg] Lissett Vega Other [employer] Other 06-21-2022 10:32-0400 Body height 165 cm Debbie Echeverria MD Work Phone: [facility] 06-21-2022 10:32-0400 Body temperature 96.8 [degF] Debbie Echeverria MD Work Phone: [facility] 06-21-2022 10:32-0400 Body weight 98.79 kg Debbie Echeverria MD Work Phone: [facility] 06-21-2022 10:32-0400 Diastolic blood pressure 82 mm[Hg] Debbie Echeverria MD Work Phone: [facility] 06-21-2022 10:32-0400 Heart rate 74 /min Debbie Echeverria MD Work Phone: [facility] 06-21-2022 10:32-0400 Respiratory rate 18 /min Debbie Echeverria MD Work Phone: [facility] 06-21-2022 10:32-0400 SaO2% (BldA) [Mass fraction] 96 % Debbie Echeverria MD Work Phone: [facility] 06-21-2022 10:32-0400 Systolic blood pressure 139 mm[Hg] Debbie Echeverria MD Work Phone: [facility] 12-21-2021 13:24-0400 Body temperature 98.6 [degF] Debbie Echeverria MD Work Phone: [facility] 12-21-2021 13:24-0400 Body weight 102.15 kg Debbie Echeverria MD Work Phone: [facility] 12-21-2021 13:24-0400 Diastolic blood pressure 82 mm[Hg] Debbie Echeverria MD Work Phone: [facility] 12-21-2021 13:24-0400 Heart rate 79 /min Debbie Echeverria MD Work Phone: [facility] 12-21-2021 13:24-0400 Respiratory rate 20 /min Debbie Echeverria MD Work Phone: [facility] 12-21-2021 13:24-0400 SaO2% (BldA) [Mass fraction] 100 % Debbie Echeverria MD Work Phone: [facility] 12-21-2021 13:24-0400 Systolic blood pressure 145 mm[Hg] Debbie Echeverria MD Work Phone: [facility] Encounters Encounter Date Encounter Type Care Provider Facility Start: 09-12-2023 End: 09-12-2023 ambulatory ABDIAZIZ BUNCH Facility:[facility] Start: 09-12-2023 End: 09-12-2023 Patient encounter procedure Abdiaziz Bunch BUSINESS INFORMATION CONSULTANT.PRESIDENT AND CMO Work Phone: Neurosurgery Comment on above: Benign neoplasm of m eninges (HCC) (Primary Dx) Start: 09-12-2023 End: 09-12-2023 ambulatory GURPREET BECKWITH Facility:[facility] Start: 09-12-2023 End: 09-12-2023 Subsequent hospital visit by physician Mri [facility] (Lg Bore/1.5t) Radiology MRI Comment on above: Benign neoplasm of m eninges (HCC) [D32.9] Start: 09-08-2023 Telephone encounter Abdiaziz morgan APRN.CNP Work Phone: [facility] Start: 09-05-2023 End: 09-05-2023 ambulatory VETO KIP Not Available Start: 07-03-2023 End: 07-03-2023 ambulatory MD Lissett Vega Work Phone: [facility] Work Phone: Start: 07-03-2023 End: 07-03-2023 Patient encounter procedure MD Lissett Vega Work Phone: [facility] Work Phone: Start: 06-13-2023 End: 06-13-2023 ambulatory Debbie Echeverria MD Work Phone: Hematology/Oncology Comment on above: Malignant melanoma o f torso excluding breast (HCC) (Primary Dx) Start: 06-13-2023 End: 06-13-2023 Patient encounter procedure Debbie Echeverria MD Work Phone: [facility] Start: 06-05-2023 End: 06-05-2023 ambulatory Jesmerary Vieira Facility:[facility] Start: 06-05-2023 End: 06-05-2023 Patient encounter procedure MD Lissett Vega Work Phone: [facility] Cardiology Work Phone: Start: 06-05-2023 End: 06-05-2023 ambulatory VETO KIP Not Available Start: 06-02-2023 Patient encounter status MD Cristi Vega Work Phone: [facility] Start: 05-12-2023 Telephone encounter Gurpreet malin DO, PhD Work Phone: [facility] Comment on above: Appointment (Abdiaziz sheth) Start: 03-23-2023 End: 03-23-2023 ambulatory Lissett Vega Other [employer] Other Start: 03-23-2023 Telephone encounter Lissett Gary [facility] Start: 03-16-2023 End: 03-16-2023 ambulatory Lissett Vega Other [employer] Other Start: 03-16-2023 Office outpatient vi sit 15 minutes Lissett Gary [facility] Start: 03-08-2023 End: 03-09-2023 ambulatory Debbie R NILL Facility:[id number] Start: 02-17-2023 End: 02-18-2023 ambulatory Debbie R NILL Facility:[facility] Start: 02-17-2023 End: 02-17-2023 Patient encounter procedure Debbie R NILL General Surgery N[facility] [place] Start: 02-07-2023 Telephone encounter Johann Henriquez RN [facility] [place] Start: 02-06-2023 Telephone encounter Johann Henriquez RN [facility] [place] Comment on above: Gamma Knife Follow-u p Start: 01-27-2023 End: 01-27-2023 Orders Only Gurpreet Beckwith DO, PhD Work Phone: Neurosurgery Comment on above: Benign neoplasm of m eninges (HCC) (Primary Dx) Benign neoplasm of m eninges (HCC) [D32.9] Start: 01-27-2023 Patient encounter procedure Burak Prakash MD Work Phone: [facility] Start: 01-27-2023 Radiation Oncology Note Susi Prakash MD Work Phone: [facility] Comment on above: Procedure Treatment Planning Start: 01-24-2023 ambulatory Debbie NILL Facility:[facility] [place] Start: 01-23-2023 End: 01-23-2023 ambulatory Lissett Vega Other [employer] Other Start: 01-23-2023 Telephone encounter Lissett Gary [facility] Start: 12-22-2022 End: 12-22-2022 ambulatory DAINViri ECHVEERRIA Facility:[facility] Start: 11-15-2022 Telephone encounter Betzy liao RN Work Phone: [facility] Comment on above: Centrifugal Screen Tender - O ther (Schedule gamma knife 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/) Start: 11-04-2022 End: 11-04-2022 ambulatory Gurpreet Beckwith DO, PhD Work Phone: [facility] Comment on above: Benign neoplasm of m eninges (HCC) (Primary Dx) Start: 11-04-2022 End: 11-04-2022 Telemedicine consultation with patient Gurpreet Beckwith DO, PhD Work Phone: [facility] Start: 10-31-2022 End: 10-31-2022 ambulatory Lissett Vega Other [employer] Other Start: 10-31-2022 Telephone encounter Lissett Vega [facility] Start: 10-19-2022 End: 10-19-2022 ambulatory Luis Licona MD Work Phone: Radiation Oncology Comment on above: Meningioma (HCC) (Pr imary Dx) Start: 10-19-2022 End: 10-19-2022 Telemedicine consultation with patient Luis Licona MD Work Phone: [facility] Start: 10-18-2022 End: 10-18-2022 ambulatory Trista Bonilla APRN.PRESIDENT AND CMO Work Phone: Radiation Oncology Comment on above: Meningioma (HCC) (Pr imary Dx) Start: 10-18-2022 End: 10-18-2022 Telemedicine consultation with patient Trista Bonilla APRN.PRESIDENT AND CMO Work Phone: [facility] Start: 10-17-2022 End: 10-17-2022 ambulatory TRISTA BONILLA Facility:[facility] Start: 10-17-2022 End: 10-17-2022 Subsequent hospital visit by physician Mri [facility] (Lg Bore/1.5t) Radiology MRI Comment on above: Benign neoplasm of m eninges (HCC) [D32.9] Start: 09-23-2022 End: 09-23-2022 ambulatory Lissett Vega Other [employer] Other Start: 09-23-2022 Telephone encounter Lissett Gary [facility] Start: 09-21-2022 End: 09-21-2022 ambulatory Lissett Vega Other [employer] Other Start: 09-21-2022 Encounter for other preprocedural examination Lissett Vega [facility] Start: 09-21-2022 Office outpatient vi sit 25 minutes Lissett Vega [facility] Start: 09-12-2022 End: 09-12-2022 ambulatory Lissett Vega Facility:[facility] Start: 08-31-2022 Telephone encounter Luis osborn MD Work Phone: Radiation Oncology Comment on above: Centrifugal Screen Tender - O ther Start: 06-21-2022 End: 06-21-2022 ambulatory Debbie Echeverria MD Work Phone: Hematology/Oncology Comment on above: Malignant melanoma o f torso excluding breast (HCC) (Primary Dx) Start: 06-21-2022 End: 06-21-2022 Patient encounter procedure Debbie Echeverria MD Work Phone: [facility] Start: 03-16-2022 End: 03-16-[address] LISSETT VEGA Facility: Start: 02-28-2022 End: 02-28-2022 ambulatory Trista Bonilla APRN.PRESIDENT AND CMO Work Phone: Radiation Oncology Comment on above: Benign neoplasm of m eninges (HCC) (Primary Dx) Start: 02-28-2022 End: 02-28-2022 Telemedicine consultation with patient Trista Bonilla APRN.PRESIDENT AND CMO Work Phone: [facility] Start: 02-23-2022 End: 02-23-2022 Subsequent hospital visit by physician Mri [facility] (Lg Bore/1.5t) Radiology MRI Comment on above: Benign neoplasm of m eninges (HCC) [D32.9] Start: 12-21-2021 End: 12-21-2021 ambulatory Debbie Echeverria MD Work Phone: Hematology/Oncology Comment on above: Malignant melanoma o f torso excluding breast (HCC) (Primary Dx) Start: 12-21-2021 End: 12-21-2021 Patient encounter procedure Debbie Echeverria MD Work Phone: [facility] Start: 12-15-2021 End: 12-15-[address] LISSETT VEGA Facility:[facility] Start: 12-11-2021 Gynecological examin ation normal Lissett Vega Other [employer] Other Start: 12-01-2021 Telephone encounter Debbie Echeverria MD Work Phone: Hematology/Oncology Comment on above: Centrifugal Screen Tender - O ther Start: 11-18-2021 End: 11-19-2021 [...] with patient Luis Licona MD Work Phone: [facility] Start: 08-23-2021 End: 08-23-2021 Subsequent hospital visit by physician Mri [facility] (Lg Bore/1.5t) Radiology MRI Comment on above: Benign neoplasm of m eninges (HCC) [D32.9] Start: 06-16-2021 End: 06-16-2021 Subsequent hospital visit by physician Mri [facility] (Lg Bore/1.5t) Radiology MRI Comment on above: Malignant 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] Start: 06-01-2021 End: 06-01-2021 Subsequent hospital visit by physician Mri [facility] (Lg Bore/1.5t) Radiology MRI Comment on above: Malignant 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] Procedures Date Procedure Procedure Detail Performing Clinician Start: 09-12-2023 Mri brain brain stem w/o w/contrast material Gurpreet Beckwith DO, PhD Work Phone: Start: 01-27-2023 Ct head/brain w/o co ntrast [...] Work Phone: Arthroscopy of shoulder Kalen aearianna DE [place] section Debbie [place] Excision [...] Treatment Date Care Activity Detail Author Start: 12-14-2023 End: 12-14-2023 Follow-up encounter 12/14/2023 10:30 AM EDT Visit (SP) Office Hematology/Oncology [address] [place] [address] Debbie Echeverria MD [address] [place] [address] FOLLOW UP Hematology/Oncology Comment on above: FOLLOW UP Start: 12-03-2023 Influenza vaccination Influenz a Vaccine (Season Ended) [facility] Start: 09-12-2023 End: 09-12-2023 Patient encounter procedure 09/12/2023 11:45 AM EDT Office Visit [facility] [address] [place] [address] Abdiaziz Bunch APRN.PRESIDENT AND CMO [address] [place] [address] gamma knife follow up Neurosurgery Comment on above: gamma knife follow u p Start: 09-12-2023 End: 09-12-2023 Patient encounter procedure 09/12/2023 10:40 AM EDT Appointment Radiology MRI [address] [place] [address] 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] Radiology MRI Comment on above: Benign neoplasm of m eninges (HCC) [D32.9] Start: 04-03-2023 Behavioral Health Screening Behavioral Health Screening [facility] Start: 04-03-2023 Depression Assessment Depression Ass essment [facility] Start: 12-21-2022 Adult depression screening assessment DEPRESSION SCREENING [facility] Start: 12-02-2022 Covid-19 Vaccine ( season) Covid-19 Vaccine ( season) [facility] Start: 12-02-2022 Covid-19 Vaccine ( season) Covid-19 Vaccine () [facility] Start: 12-02-2022 Influenza vaccination C [facility] Start: 08-29-2022 End: 03-31-2023 Mri brain brain stem w/o w/contrast material MRI BRAIN WO/W IVCON Radiology Routine Benign neoplasm of meninges (HCC) Expected: 08/29/2022, Expires: 03/31/2023 [facility] Work Phone: Comment on above: Expected: 08/29/2022 , Expires: 03/31/2023 Start: 08-22-2022 Adult depression screening assessment DEPRESSION SCREENING [facility] Start: 04-03-2022 DEPRESSION ASSESSMENT DEPRESSION ASS [facility] Start: 01-24-2022 DIABETES SCREEN DIABETES SCREEN [facility] Start: 01-24-2022 Diabetes Screening Diabetes Screenin g [facility] Start: 12-02-2021 Influenza vaccination [facility] Start: 04-03-2021 DEPRESSION ASSESSMENT [facility] Start: 07-12-2020 COLOGUARD (FIT-DNA) COLOGUARD (FIT-D NA) [facility] Start: 07-12-2020 Colonoscopy COLONOSCOPY [facility] Start: 07-12-2020 COLORECTAL CANCER SCREENING COLORECTAL CANCER SCREENING [facility] Start: 07-12-[address] COLONOGRAPHY [facility] Start: 07-12-2020 FECAL OCCULT BLOOD FECAL OCCULT BLOO D [facility] Start: 07-12-2020 Lipid 1996 panel - Serum or Plasma Lipid Screening [facility] Start: 07-12-2020 Lipid panel Lipid Screening [facility] Start: 07-12-2020 LIPID SCREEN LIPID SCREEN [facility] Start: 07-12-2020 Screening for malign ant neoplasm of colon [facility] Start: 07-12-2020 SIGMOIDOSCOPY SIGMOIDOSCOPY [facility] Start: 2015 Mammography [facility] Start: 2015 Screening for malign ant neoplasm of breast Mammogram Screening [facility] Start: 07-12-2005 HPV TESTING HPV TESTING [facility] Start: 07-12-2005 Screening for malign ant neoplasm of cervix HPV Testing [facility] Start: 07-12-1996 PAP TESTING PAP TESTING [facility] Start: 07-12-1996 Screening for malign ant neoplasm of cervix [facility] Start: 07-12-1994 Hepatitis B Vaccine (1 of 3 - 19+ 3-dose series) Hepatitis B Vaccine (1 of 3 - 19+ 3-dose series) [facility] Start: 07-12-1994 Urine microalbumin profile [facility] Start: 07-12-1993 HEPATITIS C SCREENING HEPATITIS C [facility] Start: 07-12-1993 Hepatitis C screening Hepatitis C [facility] Start: 07-12-1993 HIV SCREENING HIV SCREENING [facility] Start: 07-12-1993 HIV screening HIV Screening [facility] Start: 07-12-1981 PNEUMOCOCCAL (1 - PCV) PNEUMOCOCCAL (1 - PCV) [facility] Start: 07-12-1980 COVID-19 VACCINE (#1) COVID-19 VACCI NE (#1) [facility] Start: 01-12-1976 COVID-19 VACCINE (#1) COVID-19 VACCI NE (#1) [facility] Start: 1975 HEPATITIS B (1 of 3 - 3-dose series) HEPATITIS B (1 of 3 - 3-dose series) [facility] Start: 1975 Hepatitis B Vaccine (1 of 3 - 3-dose series) Hepatitis B Vaccine (1 of 3 - 3-dose series) [facility] End: 10-11-2024 MR Brain WO and W contrast IV MRI BRAIN WO/W IVCON Radiology Routine Benign neoplasm of meninges (HCC) 1 Occurrences starting 09/12/2023 until 10/11/2024 [facility] Work Phone: Comment on above: 1 Occurrences starti ng 09/12/2023 until 10/11/2024 End: 09-22-2022 Mri brain brain stem w/o w/contrast material MRI BRAIN WO/W IVCON Radiology Routine Benign neoplasm of meninges (HCC) 1 Occurrences starting 08/23/2021 until 09/22/2022 [facility] Work Phone: Comment on above: 1 Occurrences starti ng 08/23/2021 until 09[facility]22/2022 [facility] ANESTHESIA O NLY [facility] Immunizations Immunization Date Immunization Notes Care Provider Fa ericty 06-05-2020 SARS-CoV-2 (COVID-19 ) mRNA BNT-162b2 vax Debbie NILL [facility] [place] 05-15-2020 SARS-CoV-2 (COVID-19 ) mRNA BNT-162b2 vax Debbie NILL [facility] [place] NEGATED: Highlighted row has not occurred!02-17-2023 influenza virus vaccine, unspecified formulation Debbie NILL [facility] [place] Payers Date Payer Category Payer Self-pay 2018 Unknown MMO MMO [employer] [id number] 2018-Present [phone] [address] [place] [address] PPO [id number] 2018 Unknown [id number] 1975 Unknown [id number] 1975 Unknown [id number] 1975 Unknown [id number] 1975 Unknown [id number] 1975 Unknown [id number] 1975 Unknown [id number] 1975 Unknown [id number] 1975 Unknown [id number] 1959 Self-pay [id number] 1959 Unknown [id number] Unknown [id number] Unknown [id number] Unknown [id number] Social History Date Type Detail Facility Start: 11-19-2018 End: 02-17-2023 Tobacco smoking status NHIS Ex-smoker [facility] End: 08-02-2018 History of tobacco use Current smoker [facility] End: 08-02-2018 History of tobacco use Cigarette Smoker [facility] Start: 11-19-2018 Tobacco use and exposure Smokeless tobacco non-user [facility] Start: 06-21-2021 End: 12-22-2022 Alcohol intake Current drinker of alcohol (finding) [facility] Start: 11-19-2018 History SDOH Alcohol Comment occasionally [facility] Start: 1975 Sex Assigned At Not on file C [facility] Start: 12-11-2021 End: 12-21-2021 Exposure to SARS-CoV-2 (event) Not sure [facility] Start: 06-21-2022 End: 10-18-2022 Sex Assigned At [facility] Start: 06-21-2022 End: 10-18-2022 History of Social function [facility] Adult Depression Screening Assessment 0 [facility] Start: 01-20-2020 Gender identity Identifies as female gender (finding) [facility] Start: 05-02-2021 End: 06-11-2021 Exposure to SARS-CoV-2 (event) Unable to assess [facility] Start: 1975 Sex Assigned At Female F [facility] Functional Status Date Assessment Result Facility 02-17-2023 Functional Status N/A General [facility]an [facility] Clinical Notes 03-01-2022 to 09-12-2023 Abdiaziz Bunch APRN.PRESIDENT AND CMO - 09/12/2023 11:18 AM Nidia Monge RN - 09/12/2023 10:40 AM Cherrie Min, RT(R) - 09/12/2023 10:40 AM Cherrie Trinh RN - 06/13/2023 9:33 AM EDT Note Date & Type Note Facility 09-12-2023 Note HNO ID: [id number] Author: ABDIAZIZ BUNCH APRN.PRESIDENT AND CMO Service: ? Author Type: Nurse Practitioner Type: Progress Notes Filed: 09/12/2023 13:21 Note Text: [facility] BRAIN TUMOR CENTER NEURO-ONCOLOGY OUTPATIENT CLINIC NOTE PURPOSE OF VISIT: Ongoing patient management CHIEF COMPLAINT : Meningioma Subjective HISTORY OF PRESENT ILLNESS: Ben Cruz is a 48 year old right-handed female with history of desmoplastic melanoma, diagnosed in 2018. She developed COVID 2021 and developed worsening headaches. MRI brain done in workup, given her history, showing Left frontal meningioma. Surveillance imaging in 2022 showed slight interval growth of meningioma. She was seen in evaluation by Dr. Beckwith and is s/p GKRS 01/27/23 to 1) Left frontal with Dr. Beckwith and Dr. Prakash. She follows with Dr. Debbie Arndt for melanoma; currently on surveillance. INTERVAL HISTORY : 09/12/23 Presents today unaccompanied for follow-up with new MRI brain for review s/p GKRS. Today she denies any new neurological complaints. She remains on surveillance with Dr. Echeverria for melanoma. SOCIAL HISTORY: Social History Tobacco Use Smoking status: Former Types: Cigarettes Quit date: 08/02/2018 Years since quittin.1 Smokeless tobacco: Never Vaping Use Vaping Use: Never used Substance Use Topics Alcohol use: Yes Comment: occasionally Drug use: Never No past medical history on file. No family history on file. Current Outpatient Medications Medication Sig LORazepam (ATIVAN) 1 mg tablet One tablet 30 minutes prior to MRI REPATHA SURECLICK 140 mg/mL pen injector Inject [...] No current facility-administered medications for this visit. REVIEW OF SYSTEMS: Neurological : No complaint of headache No complaint of tinnitus No complaint of decreased hearing No complaint of diplopia No complaints of blurred vision. No complaint of arm/leg numbness No problem with limb coordination No complaint of syncope No complaints of seizures. No complaints of memory changes or disorientation General : Constitutional: No recent fever or weight loss. Eyes: No history of glaucoma or cataracts Skin: + Melanoma ENMT: No recent ear infection, nasal congestion, mouth sores or sore throat. CV: No history of chest pain, palpitations or leg swelling Respiratory: No history of SOB, wheezing or recent cough. Gastrointestinal: No history of nausea, vomiting, dysphagia or abdominal pain. Genitourinary: No history of hematuria or dysuria. Musculoskeletal: No complaint of arthritis, unstable gait or arm/leg weakness Psychiatric: No history of hallucinations, depression, or anxiety Objective PHYSICAL EXAMINATION: BP 141/86 Pulse 81 Wt 97 kg (213 lb 13.5 oz) LMP 09/08/2019 SpO2 99% BMI 35.63 kg/m? General appearance: Well appearing, alert, in no acute distress Skin: Skin color, texture, turgor normal, no suspicious rashes or lesions Oropharynx: Lips, mucosa, and tongue normal, teeth and gums normal Extremities: No deformities, edema, skin discoloration, clubbing or cyanosis. NEUROLOGICAL EXAM: Higher integrative functions: Oriented to person, place AND time. Attention Span and Concentration: Good. Language: Good comprehension. Speech clear and coherent Fund of Knowledge: Good. 2nd CN: Full visual boyd. 3rd,4th,6th CN: Pupils (=), round, react to light, full extraocular movements. 5th CN: No decrease in facial sensation 7th CN: Facial muscles symmetric and strong. 8th CN: Hears finger rub well bilaterally. 9th CN: Gag reflex not tested 10th CN: Spontaneous palate movement, full and symmetric. 11th CN: Full strength in shoulder shrug. CN: Tongue protrusion full and midline. Sensation: No decrease in sensation in upper or lower limbs to touch. Musculoskeletal: Gait is normal. Motor: 5/, R=L, UE=LE. Normal muscle tone without atrophy in all limbs. Coordination: Rapid alternating movements fast and smooth all limbs. No dysdiadochokinesis. IMAGING STUDIES: MRI BRAIN WO/W IVCON MRI Report MRI BRAIN WO/W IVCON Exam End: 09/12/2023 11:35 AM (Final result) Narrative: * * *Final Report* * * DATE OF EXAM: Sep 12 2023 11:35AM [facility] 0295 - MRI BRAIN WO/W IVCON / PROCEDURE REASON: Benign neoplasm of meninges (HCC) * * * * Physician Interpretation * * * * EXAMINATION: MRI BRAIN WO/W IVCON CLINICAL HISTORY: Meningioma TECHNIQUE: Routine brain MRI protocol without and with cont (more content not included)... [facility] 09-12-2023 History of Presen t illness Narrative Images from the original note were not included. Neu[facility] NEURO-ONCOLOGY OUTPATIENT CLINIC NOTE PURPOSE OF VISIT: Ongoing patient management CHIEF COMPLAINT : Meningioma Subjective HISTORY OF PRESENT ILLNESS: Ben Cruz is a 48 year old right-handed female with history of desmoplastic melanoma, diagnosed in 2018. She developed COVID 2021 and developed worsening headaches. MRI brain done in workup, given her history, showing Left frontal meningioma. Surveillance imaging in 2022 showed slight interval growth of meningioma. She was seen in evaluation by Dr. Beckwith and is s/p GKRS 01/27/23 to 1) Left frontal with Dr. Beckwith and Dr. Prakash. She follows with Dr. Debbie Arndt for melanoma; currently on surveillance. INTERVAL HISTORY : 09/12/23 Presents today unaccompanied for follow-up with new MRI brain for review s/p GKRS. Today she denies any new neurological complaints. She remains on surveillance with Dr. Echeverria for melanoma. SOCIAL HISTORY: Social History Tobacco Use Smoking status: Former Types: Cigarettes Quit date: 08/02/2018 Years since quittin.1 Smokeless tobacco: Never Vaping Use Vaping Use: Never used Substance Use Topics Alcohol use: Yes Comment: occasionally Drug use: Never No past medical history on file. No family history on file. Current Outpatient Medications Medication Sig LORazepam (ATIVAN) 1 mg tablet One tablet 30 minutes prior to MRI REPATHA SURECLICK 140 mg/mL pen injector Inject [...] No current facility-administered medications for this visit. REVIEW OF SYSTEMS: Neurological : No complaint of headache No complaint of tinnitus No complaint of decreased hearing No complaint of diplopia No complaints of blurred vision. No complaint of arm/leg numbness No problem with limb coordination No complaint of syncope No complaints of seizures. No complaints of memory changes or disorientation General : Constitutional: No recent fever or weight loss. Eyes: No history of glaucoma or cataracts Skin: + Melanoma ENMT: No recent ear infection, nasal congestion, mouth sores or sore throat. CV: No history of chest pain, palpitations or leg swelling Respiratory: No history of SOB, wheezing or recent cough. Gastrointestinal: No history of nausea, vomiting, dysphagia or abdominal pain. Genitourinary: No history of hematuria or dysuria. Musculoskeletal: No complaint of arthritis, unstable gait or arm/leg weakness Psychiatric: No history of hallucinations, depression, or anxiety Objective PHYSICAL EXAMINATION: BP 141/86 Pulse 81 Wt 97 kg (213 lb 13.5 oz) LMP 09/08/2019 SpO2 99% BMI 35.63 kg/m General appearance: Well appearing, alert, in no acute distress Skin: Skin color, texture, turgor normal, no suspicious rashes or lesions Oropharynx: Lips, mucosa, and tongue normal, teeth and gums normal Extremities: No deformities, edema, skin discoloration, clubbing or cyanosis. NEUROLOGICAL EXAM: Higher integrative functions: Oriented to person, place & time. Attention Span and Concentration: Good. Language: Good comprehension. Speech clear and coherent Fund of Knowledge: Good. 2nd CN: Full visual boyd. 3rd,4th,6th CN: Pupils (=), round, react to light, full extraocular movements. 5th CN: No decrease in facial sensation 7th CN: Facial muscles symmetric and strong. 8th CN: Hears finger rub well bilaterally. 9th CN: Gag reflex not tested 10th CN: Spontaneous palate movement, full and symmetric. 11th CN: Full strength in shoulder shrug. 12th CN: Tongue protrusion full and midline. Sensation: No decrease in sensation in upper or lower limbs to touch. Musculoskeletal: Gait is normal. Motor: 5/5, R=L, UE=LE. Normal muscle tone without atrophy in all limbs. Coordination: Rapid alternating movements fast and smooth all limbs. No dysdiadochokinesis. IMAGING STUDIES: MRI BRAIN WO/W IVCON MRI Report MRI BRAIN WO/W IVCON Exam End: 09/12/2023 11:35 AM (Final result) Narrative: * * *Final Report* * * DATE OF EXAM: Sep 12 2023 11:35AM [facility] 0295 - MRI BRAIN WO/W IVCON / PROCEDURE REASON: Benign neoplasm of meninges (HCC) * * * * Physician Interpretation * * * * EXAMINATION: MRI BRAIN WO/W IVCON CLINICAL HISTORY: Meningioma TECHNIQUE: Routine brain MRI protocol without and with contrast including diffusion images. MQ: [id number] Contrast: 20 mL Dotarem IV COMPARISON: Treatment planning MRI of the brain 01/27/2023 RESULT: Acute Change: There is no evidence of restricted diffusion to suggest an acute infarct. Hemorrhage: No evidence of intraparenchymal hemorrhage. Mass Lesion/ Mass Effect: Unchanged size and extent of 9 mm enhancing extra-axial dural based mass along the left frontal convexity without substantial mass effect. Chronic Change: The white matter is within normal limits of signal intensity for age. Parenchyma: No significant volume loss for age. Ventricles: Normal caliber and morphology. Skull Base: Partially empty sella turcica. Craniocervical junction is normal. No significant marrow replacement process. Vasculature: The major intracranial arteries and dural venous sinuses are patent. Other: The visualized paranasal sinuses and mastoid air cells are clear. The orbits and extracranial soft tissues are unremarkable. Impression: IMPRESSION: Unchanged size of presumed 9 mm meningioma along the left frontal convexity without substantial mass effect. Independent Distributor: [employer] Transcribe Date/Time: Sep 12 2023 11:55A Dictated by : IAN DUNNE MD This examination was interpreted and the report reviewed and electronically signed by: IAN DUNNE MD on Sep 12 2023 11:58AM EST Karnofsky performance status: 90 - Able to carry on normal activity, minor signs or symptoms of disease. MEDICAL DECISION MAKING Assessment & Plan 1. Left frontal meningioma - s/p GKRS 01/27/23 - MRI brain today appears stable - Images reviewed with her - Recommend follow up appointment and new MRI brain in 1 year - Reviewed signs and symptoms that would prompt sooner evaluation - She has our contact information and was advised to call if new symptoms, questions or concerns arise prior to next scheduled visit. - All questions were answered. Abdiaziz Bunch APRN.SHERITA Certified Nurse Practitioner cc: Gurpreet Beckwith DO PHD - Epic documented in this encounter [facility] 09-12-2023 History of Presen t illness Narrative Radiology Service Progress Note DATE OF SERVICE: September 12, 2023 TIME: 10:40 AM PATIENT WEIGHT: 211LBS PATIENT IDENTITY VERIFICATION COMPLETED USING TWO (2) [...] Morelos RN PATIENT NAME: Ben Cruz DATE: September 12, 2023 TIME: 10:40 AM Radiology Service Progress Note PATIENT NAME: Ben Cruz DATE OF SERVICE: September 12, 2023 TIME: 11:12 AM PATIENT IDENTITY VERIFICATION COMPLETED USING TWO (2) IDENTIFIERS: Name and Date of confirmed by patient verbally. FALL SCREENING: Has the patient had 2 falls in the last year or 1 fall with injury or currently using an Ambulatory Assistive Device (Walker, Cane, Wheelchair, Crutches, etc.)? No PATIENT GENDER DATA: Female. status: : No status: NO. PATIENT RELEVANT IMPLANT DATA REVIEWED: Yes PATIENT PRESENTS WITH AN IMPLANTABLE OR ATTACHED LEATHER CLEANER: No RADIOLOGY DEPARTMENT: MR; Exam(s) Completed: Head: Routine Brain PERIPHERAL IV DATA: Site assessment: Clean,Dry and Intact, Site disposition Discontinued SIGNED BY: JADA Gloria) September 12, 2023 11:12 AM documented in this encounter [facility] 09-12-2023 Note HNO ID: [id number] Author: CHERRIE MCBRIDE RT(R) Service: ? Author Type: Technologist Type: Progress Notes Filed: 09/12/2023 11:12 Note Text: Radiology Service Progress Note PATIENT NAME: Ben Cruz DATE OF SERVICE: September 12, 2023 TIME: 11:12 AM PATIENT IDENTITY VERIFICATION COMPLETED USING TWO (2) IDENTIFIERS: Name and Date of confirmed by patient verbally. FALL SCREENING: Has the patient had 2 falls in the last year or 1 fall with injury or currently using an Ambulatory Assistive Device (Walker, Cane, Wheelchair, Crutches, etc.)? No PATIENT GENDER DATA: Female. status: : No status: NO. PATIENT RELEVANT IMPLANT DATA REVIEWED: Yes PATIENT PRESENTS WITH AN IMPLANTABLE OR ATTACHED LEATHER CLEANER: No RADIOLOGY DEPARTMENT: MR; Exam(s) Completed: Head: Routine Brain PERIPHERAL IV DATA: Site assessment: Clean,Dry and Intact, Site disposition Discontinued SIGNED BY: JADA Gloria) September 12, 2023 11:12 AM [facility] 09-12-2023 Note HNO ID: [id number] Author: NIDIA MORELOS RN Service: Nursing Author Type: Registered Nurse Type: Progress Notes Filed: 09/12/2023 10:44 Note Text: Radiology Service Progress Note DATE OF SERVICE: September 12, 2023 TIME: 10:40 AM PATIENT WEIGHT: 211LBS PATIENT IDENTITY VERIFICATION COMPLETED USING TWO (2) [...] Morelos RN PATIENT NAME: Ben Cruz DATE: September 12, 2023 TIME: 10:40 AM [facility] 09-08-2023 Telephone encounter Note Patient called in requesting ativan for her MRI. Chart review indicates patient has been prescribed 1mg of ativan prior to past MRI's and has tolerated it well. Orders pended to provider for review. Johann Henriquez RN Centrifugal Screen Tender [facility] 09-08-2023 Miscellaneous Notes Patient called in requesting ativan for her MRI. Chart review indicates patient has been prescribed 1mg of ativan prior to past MRI's and has tolerated it well. Orders pended to provider for review. Johann Henriquez RN Centrifugal Screen Tender documented in this encounter [facility] 06-13-2023 Nurse Note Additional intake questions: [...] or Resource Center documented in this encounter [facility] 06-13-2023 History of Presen t illness Narrative Images from the original note were not included. [facility] GASTROENTEROLOGY ONCOLOGY ESTABLISHED PATIENT VISIT PATIENT NAME: [...] no new issues and last visit with fruit thinner machine operator was about 6 months ago. She denies [...] Lymph 1.00 - 4.00 k/uL 2.12 Abs Barren <0.87 k/uL 0.72 Abs Eosin <0.46 k/uL [...] 6 months - recommend follow up with fruit thinner machine operator Patient seen and discussed with Gastroenterology Oncology [...] with more than 50% of the total ravb-au-beug time of the visit in counseling / coordination of care. Debbie Echeverria MD documented in this encounter [facility] 06-13-2023 Note HNO ID: [id number] Author: DEBBIE ECHEVERRIA MD Service: ? Author Type: Fellow Type: Progress Notes Filed: 06/14/2023 17:20 Note Text: [facility] GASTROENTEROLOGY ONCOLOGY ESTABLISHED PATIENT VISIT PATIENT NAME: [...] no new issues and last visit with fruit thinner machine operator was about 6 months ago. She denies [...] Lymph 1.00 - 4.00 k/uL 2.12 Abs Barren <0.87 k/uL 0.72 Abs Eosin <0.46 k/uL [...] 6 months - recommend follow up with fruit thinner machine operator Patient seen and discussed with Gastroenterology Oncology [...] with more than 50% of the total dxye-bp-xylz time of the visit in counseling / coordination of care. (more content not included)... [facility] 05-12-2023 Miscellaneous Notes Per Johann (RN)-via email: This patient had GK in January and their follow up MRI and appointment was never scheduled. She needs an MRI at [facility] and follow up same day with Abdiaziz bunch. Schedule this for September please. Appointments scheduled. Mychart and letter sent. Marli Patino documented in this encounter [facility] 03-16-2023 Evaluation note Encounter Date Diagnosis Assessment Notes Mar, LLQ abdominal pain (ICD-10 - R10.32) Discussed differential - kidney stone, diverticulosis (recent normal colonoscopy), ovarian issue or constipation (no BM x 2 days) due to hematuria on UA - recommend CT without contrast to r/o stone. Mar, Microscopic hematuria (ICD-10 - R31.29) [employer] Other 12-14-2023 Evaluation note* Encounter Date [...] She would like to continue this treatment. [employer] Other 11-17-2023 NoteChief Complaint consultation for [...] (COVID-19) mRNA BNT-162b2 vax 05/15/2020 RecordedMercy Health West HospitalComment on above:Result Comment: Electronically Signed By: MAGALI MCKINLEY, Debbie He\Date and Time Signed: 02/17/23 15:11 [id number] Miscellaneous Notes* Telephone Encounter - Johann Henriquez [...] symptoms or concerns arise. [facility] Miscellaneous Notes* Telephone Encounter - Johann Henriquez RN - 02/07/2023 1:13 PM EST 2nd attempt to reach out, patient unavailable. Will send [employer] message with contact information to call if she is experiencing any symptoms or has any concerns since gamma knife treatment. * Telephone Encounter - Johann Henriquez RN - 02/06/2023 1:17 PM EST Calling Ben for post-GKRS follow-up. Unable to reach at this time. Left voicemail. [facility]23 NoteHNO ID: [id number] Author: Burak Prakash MD Service: Radiation Oncology Author Type: Physician Type: Progress Notes Filed: 02/03/2023 12:33 AM Note Text: BEN CRUZ [id number] 02/01/2023 [facility] / Department of [...] [facility] NoteHNO ID: [id number] Author: Burak Prakash MD Service: Radiation Oncology Author Type: Physician Type: Progress Notes Filed: 02/01/2023 12:33 AM Note Text: BEN CRUZ [id number] 01/27/2023 [facility] Tumor and Neuro-Oncology Center [facility] STEREOTACTIC RADIOSURGERY (SRS) DAILY PROCEDURE NOTE [...] patient setup, I conferred with the medical assistant prn to approve the final setup. I was [...] planned. Electronically Signed Burak Prakash M.D. :10 [facility]10-27-2023 NoteHNO ID: [id number] Author: Burak Prakash MD Service: Radiation Oncology Author Type: Physician Type: Progress Notes Filed: 02/02/2023 12:32 AM Note Text: BEN CRUZ [id number] 01/27/2023 [facility] Cindi Diez [facility] Tumor [facility] Neuro-Oncology Center Department of Radiation Oncology [facility] RADIATION ONCOLOGY GAMMA KNIFE SIMULATION NOTE [...] planning. Electronically Signed Burak Prakash M.D. :18 [facility]10-27-2023 NoteHNO ID: [id number] Author: Burak Prakash MD Service: Radiation Oncology Author Type: Physician Type: Progress Notes Filed: 02/01/2023 12:33 AM Note Text: BEN CRUZ [id number] 01/27/2023 [facility] Department of Radiation Oncology [facility] RADIATION ONCOLOGY GAMMA KNIFE TREATMENT PLANNING [...] Electronically Signed Burak Prakash M.D. / [facility] 31:29 [facility]10-27-2023 NoteHNO ID: [id number] Author: Gurpreet Beckwith DO, PhD Service: ? Author Type: Physician Type: Progress Notes Filed: 01/27/2023 1:49 PM Note Text: [facility] [address] [place] [address] [place] OPERATIVE REPORT NAME: Ben Cruz NO.: [id number] MASK SIMULATION DATE: 2023-01-27 RADIATION TREATMENT START [...] of Fractions: 1 After the usual senior software quality analyst procedures were performed, fractionated 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 was delivered with use of the Gamma Knife. The Gamma Knife checklist and time outs were performed during this procedure. Gurpreet Beckwith DO, PhDTr[facility] History of Present illness Narrative* Gurpreet Beckwith DO, PhD - 01/27/2023 1:49 PM EDT [facility] [address] [place] [address] [place] OPERATIVE REPORT NAME: Ben Cruz [facility] NO.: [id number] MASK SIMULATION DATE: 2023-01-27 RADIATION TREATMENT START [...] of Fractions: 1 After the usual senior software quality analyst procedures were performed, fractionated 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 was delivered with use of the Gamma Knife. The Gamma Knife checklist and time outs were performed during this procedure. Gurpreet Beckwith DO, PhD documented in [facility]Cl[facility]10[facility]-2023 NoteHNO ID: [id number] Author: Gurpreet Beckwith DO, PhD Service: ? Author Type: Physician Type: Progress Notes Filed: 01/27/2023 11:22 AM Note Text: [facility] [address] [place] [address] [place] OPERATIVE REPORT NAME: Ben Cruz [facility] NO.: [id number] MASK SIMULATION DATE: 2023-01-27 RADIATION TREATMENT START [...] of Fractions: 1 After the usual senior software quality analyst procedures were performed, fractionated 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 was delivered with use of the Gamma Knife. The Gamma Knife checklist and time outs were performed during this procedure. Gurpreet Beckwith DO, PhDTr[facility]10[facility] History of Present illness Narrative* Gurpreet Beckwith DO, PhD - 01/27/2023 11:21 AM EDT [facility] [address] [place] [address] [place] OPERATIVE REPORT NAME: Ben Cruz [facility] NO.: [id number] MASK SIMULATION DATE: 2023-01-27 RADIATION TREATMENT START [...] of Fractions: 1 After the usual senior software quality analyst procedures were performed, fractionated 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 was delivered with use of the Gamma Knife. The Gamma Knife checklist and time outs were performed during this procedure. Gurpreet Beckwith DO, PhD documented [facility]Cl[facility] History of Present illness Narrative* [...] 27, 2023 8:06 AM documented in this encounterCl[facility]10-27-2023 NoteHNO ID: [id number] Author: Zee Padilla Tech Service: Radiology Author Type: Senior Quantity Surveyor Type: Progress Notes Filed: 01/27/2023 8:06 AM [...] BY: Tyshawn Lawler January 27, 2023 8:06 [facility]10-27-2023 NoteHNO ID: [id number] Author: Gurpreet Beckwith DO, PhD Service: ? [...] - 123 U/L 60 (more content not included)...[facility]10-27-2023 History of Present illness Narrative* [...] 123 U/L 60 Final Pathology: Specimen #: [id number]* Submitting Physician: DEBBIE ECHEVERRIA MD FINAL DIAGNOSIS [...] FRONTAL LOBE, UNCHANGED GOING BACK TO 06/01/2021 Independent Distributor: [facility] Transcribe Date/Time: Jan 27 2023 8:08A [...] growth and wants to have Gamma Knife 10 23: Presents today for GK No new [...] today Gurpreet Beckwith DO, PhD cc: Ben Echeverria- muna documented in [facility] encounterCl[facility]10-[facility]-2023 Instructions* Patient Instructions* Gayle Acevedo RN - 01/27/2023 7:45 AM EDT [facility]ife [facility] Discharge Instructions [...] a physician or hospital other than the [facility] with any problem related to [...] may your physician, Dr. Virgil Beckwith at [phone] Monday through Monday 8:00 am to 5:00 pm, or call the Gamma Knife nurse Monday through Monday 8:00 am to 4:00 pm at [phone]. In the evening or on weekends, call [phone] or toll-free [phone] and ask the fleshing machine operator to page your neurosurgeon's resident systems development consultant. documented in this encounterCl[facility]10-[facility]-2023 History of Present illness Narrative* [...] 27, 2023 7:59 AM documented in this encounterCl[facility]10-27-2023 NoteHNO ID: [id number] Author: Anton Terrell RN Service: Nursing Author [...] Cruz DATE: January 27, 2023 TIME: 7:46 [facility]10-27-2023 NoteHNO ID: [id number] Author: Mariela Burk RT(R) Service: Radiology Author [...] BY: RT Nestor(R) January 27, 2023 7:59 [facility]10-27-2023 NoteHNO ID: [id number] Author: Gayle Acevedo RN Service: ? Author [...] Dr. Aria Beckwith DO, Gayle Acevedo RN 0717 Mask SIM completed. Ben Cruz returned to department for treatment # 1 of 1. Is patient receiving immunotherapy infusions: Not Applicable. Patient's Age: 47 Menstruation Status: Hysterectomy 2019 [facility] Results: N/A test not performed QC: Yes, testing is valid (or protocol followed for invalid testing). Reference range: Normal Value = Negative for hCG. POC performed by: Gayle Acevedo RN 0988 4 mg Decadron PO given prior to GKRS per order of Dr. Virgil Beckwith 0980 GKRS start time. 1016 GKRS end time. 1025 Discharge instructions given to patient; instructions reviewed by this RN; patient/family verbalized understanding; [facility] [facility] History of Present illness Narrative* [...] Patient's Age: 47 Menstruation Status: Hysterectomy 2019 [facility] Results: N/A test not performed QC: Yes, [...] via/with Gayle Acevedo RN documented in this encounterClinton [facility]10-27-[facility]23 History of Present illness Narrative* Burak Prakash MD - 01/27/2023 12:00 AM EDT BEN CRUZ [id number] 01/27/2023 [facility] Cindi Diez [facility] STEREOTACTIC RADIOSURGERY (SRS) DAILY PROCEDURE NOTE [...] to patientsetup, I conferred with the medical assistant prn to approve the final setup. I was [...] Prakash M.D. 31:10 PM documented in this encounterClinton Memorial Hospital10-27-2023 History of Present illness Narrative* Burak Prakash MD - 01/27/2023 12:00 AM EDT BEN CRUZ [id number] 01/27/2023 [facility] Department of Radiation Oncology [facility] RADIATION ONCOLOGY GAMMA KNIFE TREATMENT PLANNING [...] Electronically Signed Burak Prakash M.D. / [facility] 31:29 PM documented in this encounterClinton Memorial Hospital09-21-2023 NoteHNO ID: [id number] Author: Debbie Echeverria MD Service: ? Author Type: Physician Type: Progress Notes Filed: 12/23/2022 9:46 AM Note Text: December 22, 2022 DXN: Resected T4aN0 desmoplastic melanoma. The lesion was about 4.5mm located on her back with 2 negative SLNs (left axilla). There was no reported neurtropism and only one mitotic figure. Margins were negative. Declined an adjuvant trial in [place]. Baseline imaging today is negative CC: Melanoma [...] beckwith components of the Resident. Debbie Echeverria, [facility]08-15-2023 Miscellaneous Notes* Telephone Encounter - Betzy Heard RN - 11/15/2022 1:57 PM EDT Calling Ben to follow up on [employer] message about scheduling gamma knife for 01/27/2023 No answer, left message stating that I'll go ahead and place the GK orders. Reminded to disregard ANY appointment times she sees in [employer], any automated text reminders or automated phone calls for 01/27/23 She will receive a call from the GK nurse or radiation therapist the day before with her arrival time. If she has any questions, I left office phone # for call back or she can send a [employer] message. I will send out a GK folder with additional information related to Mask Based Gamma Knife Radiosurgery Betzy Heard RN, BSN Centrifugal Screen Tender [facility] documented in this encounterClinton Memorial Hospital08-04-2023 History of Present illness Narrative* Gurpreet Beckwith DO, PhD - 11/04/2022 1:00 PM EDT Images from the original note were not included. [facility] New Patient Virtual Consultation Referred by Dr. Luis Licona We had a virtual visit conducted via [employer] visit. I received consent from the patient to perform the visit using this platform. I have communicated my name and active licensure. The patient's identity and physical location wereverified at the time of this visit. Either the patient or their legal auto claim representative has been informed of the risks [...] 123 U/L 60 Final Pathology: Specimen #: [id number]* Submitting Physician: DEBBIE ECHEVERRIA MD FINAL DIAGNOSIS Skin, left upper midline back, shave biopsy - Desmoplastic melanoma, see synoptic report. SDB/rw 11/09/2018 Imaging: MRI Report MRI BRAIN WO/W IVCON Exam End: 10/17/2022 11:20 AM (Final result) Narrative: * * *Final Report* * * DATE OF EXAM: Oct 17 2022 11:20AM [facility] 0295 - MRI BRAIN WO/W IVCON / PROCEDURE REASON: Benign neoplasm of meninges (HCC) * * * * Physician Interpretation * * * * EXAMINATION: MRI BRAIN WO/W IVCON HISTORY: history of desmoplastic melanoma T4aN0, with incidentally discovered subcentimeter L frontal meningioma noted on staging MRI of the ain obtained 06/01/2021 presenting for further evaluation [...] with air-fluid level suggestive of acute/active sinusitis. Independent Distributor: [employer] Transcribe Date/Time: Oct 17 2022 11:35A [...] which included preparing to see the patient, etzq-en-yfwb patient care, completing clinical documentation, obtaining and/or reviewing separately obtained history, performing a medically appropriate examination, counseling and educating the pat ient/family/caregiver, ordering medications, tests, or procedures, communicating with other HCPs (not separately reported), independently interpreting results (not separately reported), communicatingresults to the patient/family/caregiver, and care coordination (not separately reported). Gurpreet Beckwith DO, PhD cc: Ben toro documented in this encounterClinton Memorial Hospital08-04-2023 NoteHNO ID: [id number] Author: Gurpreet Beckwith DO, PhD Service: ? Author Type: Physician Type: Progress Notes Filed: 11/04/2022 1:27 PM Note Text: [facility] New Patient Virtual Consultation Referred by Dr. Luis Licona We had a virtual visit conducted via [employer] virtual visit. I received consent from the patient to perform the visit using this platform. I have communicated my name and active licensure. The patient's identity and physical location were verified at the time of this visit. Either the patient or their legal auto claim representative has been informed of the risks [...] Pathology: Specimen #: [id number] (more content not included)...[facility] 10-31-2022 Evaluation note* Encounter Date Diagnosis Assessment Notes Treatment Notes Treatment Clinical Notes Oct, Screen for colon cancer (ICD-10 - Z12.11) [employer] Other 07-19-2023 History of Present illness Narrative* Luis Licona [...] cc: Debbie Echeverria [address] [place] [facility] [address] documented in this encounterClinton Memorial Hospital07-19-2023 NoteHNO ID: [id number] Author: Luis Licona MD Service: ? Author [...] resident's medical decisio (more content not included)... [facility]07-18-2023 History of Present illness Narrative* Trista Bonilla APRN.SHERITA - 10/18/2022 10:30 AM EDT Elements of this note, including HPI, ROS, Physical Exam, Assessment and Plan were copied and pasted from 02/28/22 encounter with me. Updates have been made where noted and reflect current exam and medical decision making from October 18, 2022. Trista Bonilla APRN.SHERITA. [facility] DISTANCE HEALTH VISIT This visit is a Virtual MyChart video visit encounter which required patient- provider interaction for the medical decision making as documented below. Persons Present: patient Ben Cruz has consented to this distance health encounter. Total Time Spent: more than 20 minutes pkdh-an-tlet with the patient and over half the [...] DATE OF EXAM: Oct 17 2022 11:20AM [facility] Jalen5 - MRI BRAIN WO/W IVCON / PROCEDURE [...] with air-fluid level suggestive of acute/active sinusitis. Independent Distributor: [employer] Transcribe Date/Time: Oct 17 2022 11:35A [...] Cc: Dr. Luis Echeverria documented in this encounterClinton Memorial Hospital07-18-2023 NoteHNO ID: [id number] Author: Trista Bonilla APRN.CNP Service: ? Author [...] Total Time Spent: more than 20 minutes epjx-xm-yqot with the patient and over half the [...] DATE OF EXAM: Oct 17 2022 11:20AM [facility] 0295 - MRI BRAIN WO/W IVCON / [...] with air-fluid level suggestive of acute/active sinusitis. Independent Distributor: [facility] Transcribe Date/Time: Oct 17 2022 [...] Moves all extremities purp (more content not included)...[facility]07-17-2023 History of Present illness Narrative* [...] 17, 2022 10:53 AM documented in this encounterClinton Memorial Hospital07-17-2023 NoteHNO ID: [id number] Author: Nidia Morelos RN Service: Nursing Author [...] Cruz DATE: October 17, 2022 TIME: 10:40 [facility]07-17-2023 NoteHNO ID: [id number] Author: MANISH Hubbard Tech Service: Radiology Author Type: Senior Quantity Surveyor Type: Progress Notes Filed: 10/17/2022 10:54 AM [...] MANISH Hubbard Tech October 17, 2022 10:53 [facility]06-21-2023 Evaluation note* Encounter Date Diagnosis [...] the berberine and get back to patient. [employer] Other 05-31-2023 Miscellaneous Notes* Telephone Encounter [...] Prescription should be sent to the [facility] in [facility]. [facility] [phone] [place] [address] documented in this encounterClinton Memorial Hospital03-21-2023 History of Present illness Narrative* Debbie Echeverria MD - 06/21/2022 11:08 AM EDT June 21, 2022 DXN: Resected T4aN0 desmoplastic melanoma. The lesion was about 4.5mm located on her back with 2 negative SLNs (left axilla). There was no reported neurtropism and only one mitotic figure. Margins were negative. Declined an adjuvant trial in [place]. Baseline imaging today is negative CC: Melanoma [...] with more than 50% of the total nqvr-cp-rann time of the visit in counseling / coordination of care. Debbie Echeverria MD documented in this encounterClinton Memorial Hospital03-21-2023 Nurse Note* Vanessa Giang LPN - 06/21/2022 10:29 AM EDT Additional intake questions: Has the patient had fever, nausea, vomiting, diarrhea, constipation, fatigue for > 1 week? Yes, fatigue and Provider Notified Does the patient have a decreased appetite? No Does patient want to see a Helper Marble Finisher? No (yes to any of above refer patient to schedulers for dietitian appointment) ) Does patient have any new or increased numbness or tingling of extremities? No Is patient interested in fertility information? NA Does patient need any prescription refills? No Does patient have an advanced directive in place? No, Patient refused referral to Social Work or Resource Center documented in this encounterClinton Memorial Hospital11-28-2022 History of Present illness Narrative* Trista Bonilla APRN.PRESIDENT AND CMO - 02/28/2022 10:30 AM EST [facility] V[facility] This visit is a Virtual MyChart video visit encounter which required patient- provider interaction for the medical decision making as documented below. Persons Present: patient Ben Cruz has consented to this distance health encounter. 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 She denies focal weakness, dizziness, gait instability, or seizures. Data Reviewed: MRI Report MRI BRAIN WO/W IVCON Exam End: 02/23/2022 11:31 AM (Final result) Narrative: * * *Final Report* * * DATE OF EXAM: Feb 23 2022 11:31AM [facility] 0295 - MRI BRAIN WO/W IVCON [...] unremarkable MRI brain with and without contrast. Independent Distributor: [facility] Transcribe Date/Time: Feb 23 2022 11:50A [...] She will continue to get MRI at [facility] and present in VV follow up. Trista Bonilla APRN.CNP Cc: Dr. Luis Echeverria documented in this encounterClinton Memorial Hospital11-23-2022 History of Present illness Narrative* Nidia [...] 23, 2022 10:57 AM documented in this encounterClinton Memorial Hospital09-20-2022 History of Present illness Narrative* Debbei Echeverria MD - 12/21/2021 1:37 PM EDT December 21, 2021 DXN: Resected T4aN0 desmoplastic melanoma. The lesion was about 4.5mm located on her back with 2 negative SLNs (left axilla). There was no reported neurtropism and only one mitotic figure. Margins were negative. Declined an adjuvant trial in [place]. Baseline imaging today is negative CC: Melanoma [...] with more than 50% of the total lyco-xz-kvsw time of the visit in counseling / coordination of care. Debbie Echeverria MD documented in this encounterClinton Memorial Hospital09-20-2022 Nurse Note* Tiny Mckoy LPN - 12/21/2021 1:20 PM EDT Additional intake questions: Has the patient had fever, nausea, vomiting, diarrhea, constipation, fatigue for > 1 week? Yes, fatigue Does the patient have a decreased appetite? No Does patient want to see a Helper Marble Finisher? No (yes to any of above refer patient to schedulers for dietitian appointment) ) Does patient have any new or increased numbness or tingling of extremities? No Is patient interested in fertility information? No Does patient need any prescription refills? No Does patient have an advanced directive in place? No, Patient refused referral to Social Work or Resource Center documented in this encounterClinton Memorial Hospital09-02-2022 Miscellaneous Notes* Telephone Encounter - Jaylene Jacobson RN - 12/03/2021 12:49 PM EDT Patient needs a follow up visit (no labs or scans) around 12/25/21. She accepted a visit on 12/21 at 1:30 pm. Jaylene Jacobson RN * Telephone Encounter - Mary Lindsay - 12/01/2021 4:45 PM EDT Ben Cruz is calling Debbie Echeverria MD today regarding Centrifugal Screen Tender - Other Patient called scheduling to schedule 6 mo follow up but was unable to get thru, so calling office for Dr. Echeverria to get it scheduled. Can she be called once appointment is made? Patient has been identified by name and birthdate. Requesting response back: [phone] (home) [phone] (cell) Mary ClaudiaTomasa December 01, 2021 documented in this encounterClinton Memorial Hospital05-23-2022 History of Present illness Narrative* [...] an updated MRI in 6 months in [place] followed by a virtual visit for further meningioma surveillance, with additional surveillance plan to be developed thereafter. Zhanna Le MD Radiation Oncology Resident [phone] STAFF ADDENDUM I saw and evaluated the [...] brain. Luis Licona MD cc: Debbie Echeverria [id number] [facility] [address] documented in this encounterClinton Memorial Hospital05-23-2022 History of Present illness Narrative* [...] 23, 2021 12:14 PM documented in this encounterClinton Memorial Hospital03-16-2022 History of Present illness Narrative* [...] 2021 TIME: 10:22 AM * Barbara Gaxiola dairy science teacher - 06/16/2021 10:00 AM EDT Radiology Service [...] 16, 2021 10:35 AM documented in this encounterClinton Memorial Hospital03-01-2022 History of Present illness Narrative* Barbara Gaxiola dairy science teacher - 06/01/2021 11:20 AM EST Radiology Service [...] 2021 TIME: 11:13 AM [facility] encounter[facility] [place] [facility] Plan note No data available for this section General Surgery Jayjay Evaluation note* Diagnosis 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 documented in this encounter [facility] note* Diagnosis 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 documented in this encounter [facility] [place] [facility]* Diagnosis Benign neoplasm of meninges (HCC)- Primary Benign neoplasm of cerebral meninges documented in this encounter [facility] note* Diagnosis 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) documented in this encounter [facility] [place] noteNo [facility] Other Evaluation note* Diagnosis Meningioma (HCC)- Primary Benign neoplasm of cerebral meninges documented in this encounter [facility] note* Diagnosis Meningioma (HCC)- Primary Benign neoplasm of cerebral meninges documented in this encounter [facility] note* Diagnosis Benign neoplasm of meninges (HCC)- Primary Benign neoplasm of cerebral meninges documented in this encounter [facility] note* Diagnosis Benign neoplasm of meninges (HCC)- Primary Benign neoplasm of cerebral meninges documented in this encounter [facility] note* Diagnosis Benign neoplasm of meninges (HCC)- Primary Benign neoplasm of cerebral meninges documented in this encounter [facility] note* Diagnosis Benign neoplasm of meninges (HCC)- Primary Benign neoplasm of cerebral meninges documented in this encounter [facility] note* Diagnosis 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 documented in this encounter [facility] note* Diagnosis 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 documented in this encounter [facility] [place] [facility]* Diagnosis 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 documented in this encounter [facility] note* Diagnosis 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) Liver lesion Other specified disorders of liver documented in this encounter [facility] note* Diagnosis 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 documented in this encounter [facility] [place] [facility]* Diagnosis 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 documented in this encounter [facility] [place] [facility]* Diagnosis Onset Date Resolution Status Familial hypercholesteremia acute History of benign meningioma of brain acute [facility] Work Phone: Evaluation note* Diagnosis 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 documented in this encounter [facility] note* Diagnosis Benign neoplasm of meninges (HCC)- Primary Benign neoplasm of cerebral meninges documented in this encounter [facility] [place] [facility]* Diagnosis 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 [facility] - Reported* Type Description Date Medical History melanoma Surgical History laminectomy Surgical History c-sectionx 2 Surgical History hysterectomy Surgical History lump removed right wrist Surgical History melanoma removal [facility] [employer] Other History general [facility] [employer] Other Hishrdd general Narrative - Reported* Type Description Date Medical History melanoma Surgical History laminectomy Surgical History c-sectionx 2 Surgical History hysterectomy Surgical History lump removed right wrist Surgical History melanoma removal Surgical History Colonoscopy 03/2023 [facility] [employer] Other Hospital Discharge instructions No data available for this section General Surgery Jayjay Progress note No data available for this section General Surgery [place] Reason for Referral Specialty Diagnoses / Procedures Referred By Selene lloyd Referred To Contact MR IMAGING Diagnoses Benign neoplasm of meninges (HCC) Procedures MRI BRAIN WO/W IVCON MRI BRAIN BRAIN STEM W/O W/[place] [address] [place] [address] Mr Imaging Referral ID Status Reason Start Date Expiration Date Visits Requested Visits Authorized [id number] Pending Review Auto-Generat ed Referral 08/23/2021 09/22/2022 1 1 Specialty Diagnoses / Procedures Referred By Selene lloyd Referred To Contact MR IMAGING Diagnoses Benign neoplasm of meninges (HCC) Procedures MRI BRAIN WO/W IVCON MRI BRAIN BRAIN STEM W/O W/CONTRAST MATERIAL Trista Bonilla APRN.CNP [address] [place] [address] Mr Imaging Referral ID Status Reason Start Date Expiration Date Visits Requested Visits Authorized [id number] Pending Review Auto-Generat ed Referral 08/29/2022 03/31/2023 1 1 Reason *FU 11/15 screenin g colonoscopy Diagnosis 1 Screen for colon can cer (Z12.11) Referral Organization [facility] elias Referring Provider First Name Lissett Referring Provider Last Name Gary Referring Provider Specialty [facility] Referred Organization [facility] Referred Provider Tucker Ann Referred Address [address] [place], [place],[address] Referred Provider Specialty General Surg katelyn Referral Priority Routine General Notes YaraLouise 10:47:05 AM >received today, attachments made, notes locked, referral faxed Clinical Notes F: [phone] Specialty Diagnoses / Procedures Referred By Contac t Referred To Contact MR IMAGING Diagnoses Benign neoplasm of meninges (HCC) Procedures MRI BRAIN LOCALIZATION W IVCON UNLISTED MAGNETIC RESONANCE PROCED Gurpreet Beckwith DO, PhD [address] [facility] [address] [place] [id number] Mr Imaging [facility] Referral ID Status Reason Start Date Expiration Date V isits Requested Visits Authorized [id number] Closed Auto-Generate d Referral 12/06/2022 1 1 Specialty Diagnoses / Procedures [facility] Referred To Contact MR IMAGING Diagnoses Benign neoplasm of meninges (HCC) Procedures MRI BRAIN WO/W IVCON MRI BRAIN BRAIN STEM W/O W/[place] [address] [place] [address] Mr Imaging [facility] Referral ID Status Reason Start Date Expiration Date V isits Requested Visits Authorized [id number] Closed Auto-Generate d Referral 06/21/2021 09/18/2021 1 1 Specialty Diagnoses / Procedures [facility] Referred To Contact MR IMAGING Diagnoses 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) Liver lesion Procedures MRI LIVER WO/W IVCON MRI ABDOMEN W/O & W/[place] [address] [place] [id number] Mr Imaging [facility] Referral ID Status Reason Start Date Expiration Date V isits Requested Visits Authorized [id number] Closed Auto-Generate d Referral 05/20/2021 07/11/2021 1 1 Specialty Diagnoses / Procedures [facility] Referred To Contact MR IMAGING Diagnoses Benign neoplasm of meninges (HCC) Procedures MRI BRAIN WO/W IVCON MRI BRAIN BRAIN STEM W/O W/CONTRAST MATERIAL Trista Bonilla APRN.PRESIDENT AND CMO [address] [place] [address] Mr Imaging [facility] Referral ID Status Reason Start Date Expiration Date V isits Requested Visits Authorized [id number] Closed Auto-Generate d Referral 08/29/2022 03/31/2023 1 1 Referral ID Status Reason Start Date Expiration Date V isits Requested Visits Authorized [id number] Closed Auto-Generate d Referral 08/23/2021 03/20/2022 1 1 Specialty Diagnoses / Procedures Referred By Contac t Referred To Contact MR IMAGING Diagnoses Benign neoplasm of meninges (HCC) Procedures MRI BRAIN WO/W IVCON MRI BRAIN BRAIN STEM W/O W/CONTRAST MATERIAL Abdiaziz Bunch APRN.PRESIDENT AND CMO [address] [place] [id number] Mr Imaging [place] [address] Referral ID Status Reason Start Date Expiration Date Visits Requested Visits Authorized [id number] Pending Review Auto-Generat ed Referral 09/12/2023 10/11/2024 1 1 Specialty Diagnoses / Procedures Referred By Contac t Referred To Contact MR IMAGING Diagnoses Benign neoplasm of meninges (HCC) Procedures MRI BRAIN WO/W IVCON MRI BRAIN BRAIN STEM W/O W/CONTRAST MATERIAL Gurpreet Beckwith DO, PhD [address] [place] [id number] Mr Imaging [place] [address] Referral ID Status Reason Start Date Expiration Date V isits Requested Visits Authorized [id number] Closed Auto-Generate d Referral 11/25/2022 12/25/2023 1 1 Summary Purpose Family History No Family History Records Found Relationship Condition Age at Onset Recorded Date/T dian father Malignant neoplasm Unknown Family history of pancreatic cancer Unkno wn Diabetes mellitus Unknown Unknown Not Specified Malignant neoplasm Unknown Malignant neoplasm of breast Unknown Advance Directives No Advanced Directives Records Found Advance Directive Response Recorded Date/ Time Advance Directives No December 6:07pm Chief Complaint and Reason for Visit Chief Complaint Familial Hypercholes terolemia UA - tingling, unable to empty bladder Reason for Visit Familial hypercholes teremia History of benign meningioma of brain Additional Source Comments Source Comments (unrecognize d section and content) In the event this informatio n is protected by the [facility] Confidentiality of Alcohol and Drug Abuse Patient Records regulations: The Federal rules restrict any use of the information to criminally investigate or prosecute any alcohol or drug abuse patient.[facility] HospitalIn the event this information is protected by the Federal Confidentiality of Alcohol and Drug Abuse Patient Records regulations: The Federal rules restrict any use of the information to criminally investigate or prosecute any alcohol or drug abuse patient.[facility] HospitalIn the event this information is protected by the Federal Confidentiality of Alcohol and Drug Abuse Patient Records regulations: The Federal rules restrict any use of the information to criminally investigate or prosecute any alcohol or drug abuse patient.[facility] HospitalIn the event this information is protected by the Federal Confidentiality of Alcohol and Drug Abuse Patient Records regulations: The Federal rules restrict any use of the information to criminally investigate or prosecute any alcohol or drug abuse patient.[facility] HospitalIn the event this information is protected by the Federal Confidentiality of Alcohol and Drug Abuse Patient Records regulations: The Federal rules restrict any use of the information to criminally investigate or prosecute any alcohol or drug abuse patient.[facility] HospitalIn the event this information is protected by the Federal Confidentiality of Alcohol and Drug Abuse Patient Records regulations: The Federal rules restrict any use of the information to criminally investigate or prosecute any alcohol or drug abuse patient.[facility] HospitalIn the event this information is protected by the Federal Confidentiality of Alcohol and Drug Abuse Patient Records regulations: The Federal rules restrict any use of the information to criminally investigate or prosecute any alcohol or drug abuse patient.[facility] HospitalIn the event this information is protected by the Federal Confidentiality of Alcohol and Drug Abuse Patient Records regulations: The Federal rules restrict any use of the information to criminally investigate or prosecute any alcohol or drug abuse patient.[facility] HospitalIn the event this information is protected by the Federal Confidentiality of Alcohol and Drug Abuse Patient Records regulations: The Federal rules restrict any use of the information to criminally investigate or prosecute any alcohol or drug abuse patient.[facility] HospitalIn the event this information is protected by the Federal Confidentiality of Alcohol and Drug Abuse Patient Records regulations: The Federal rules restrict any use of the information to criminally investigate or prosecute any alcohol or drug abuse patient.[facility] HospitalIn the event this information is protected by the Federal Confidentiality of Alcohol and Drug Abuse Patient Records regulations: The Federal rules restrict any use of the information to criminally investigate or prosecute any alcohol or drug abuse patient.[facility] HospitalIn the event this information is protected by the Federal Confidentiality of Alcohol and Drug Abuse Patient Records regulations: The Federal rules restrict any use of the information to criminally investigate or prosecute any alcohol or drug abuse patient.[facility] HospitalIn the event this information is protected by the Federal Confidentiality of Alcohol and Drug Abuse Patient Records regulations: The Federal rules restrict any use of the information to criminally investigate or prosecute any alcohol or drug abuse patient.[facility] HospitalIn the event this information is protected by the Federal Confidentiality of Alcohol and Drug Abuse Patient Records regulations: The Federal rules restrict any use of the information to criminally investigate or prosecute any alcohol or drug abuse patient.[facility] HospitalIn the event this information is protected by the Federal Confidentiality of Alcohol and Drug Abuse Patient Records regulations: The Federal rules restrict any use of the information to criminally investigate or prosecute any alcohol or drug abuse patient.[facility] HospitalIn the event this information is protected by the Federal Confidentiality of Alcohol and Drug Abuse Patient Records regulations: The Federal rules restrict any use of the information to criminally investigate or prosecute any alcohol or drug abuse patient.[facility] HospitalIn the event this information is protected by the Federal Confidentiality of Alcohol and Drug Abuse Patient Records regulations: The Federal rules restrict any use of the information to criminally investigate or prosecute any alcohol or drug abuse patient.[facility] HospitalIn the event this information is protected by the Federal Confidentiality of Alcohol and Drug Abuse Patient Records regulations: The Federal rules restrict any use of the information to criminally investigate or prosecute any alcohol or drug abuse patient.[facility] HospitalIn the event this information is protected by the Federal Confidentiality of Alcohol and Drug Abuse Patient Records regulations: The Federal rules restrict any use of the information to criminally investigate or prosecute any alcohol or drug abuse patient.[facility] HospitalIn the event this information is protected by the Federal Confidentiality of Alcohol and Drug Abuse Patient Records regulations: The Federal rules restrict any use of the information to criminally investigate or prosecute any alcohol or drug abuse patient.[facility] HospitalIn the event this information is protected by the Federal Confidentiality of Alcohol and Drug Abuse Patient Records regulations: The Federal rules restrict any use of the information to criminally investigate or prosecute any alcohol or drug abuse patient.[facility] HospitalIn the event this information is protected by the Federal Confidentiality of Alcohol and Drug Abuse Patient Records regulations: The Federal rules restrict any use of the information to criminally investigate or prosecute any alcohol or drug abuse patient.[facility] HospitalIn the event this information is protected by the Federal Confidentiality of Alcohol and Drug Abuse Patient Records regulations: The Federal rules restrict any use of the information to criminally investigate or prosecute any alcohol or drug abuse patient.[facility] HospitalIn the event this information is protected by the Federal Confidentiality of Alcohol and Drug Abuse Patient Records regulations: The Federal rules restrict any use of the information to criminally investigate or prosecute any alcohol or drug abuse patient.[facility] HospitalIn the event this information is protected by the Federal Confidentiality of Alcohol and Drug Abuse Patient Records regulations: The Federal rules restrict any use of the information to criminally investigate or prosecute any alcohol or drug abuse patient.[facility] HospitalIn the event this information is protected by the Federal Confidentiality of Alcohol and Drug Abuse Patient Records regulations: The Federal rules restrict any use of the information to criminally investigate or prosecute any alcohol or drug abuse patient.[facility] HospitalIn the event this information is protected by the Federal Confidentiality of Alcohol and Drug Abuse Patient Records regulations: The Federal rules restrict any use of the information to criminally investigate or prosecute any alcohol or drug abuse patient.[facility] HospitalIn the event this information is protected by the Federal Confidentiality of Alcohol and Drug Abuse Patient Records regulations: The Federal rules restrict any use of the information to criminally investigate or prosecute any alcohol or drug abuse patient.[facility] HospitalIn the event this information is protected by the Federal Confidentiality of Alcohol and Drug Abuse Patient Records regulations: The Federal rules restrict any use of the information to criminally investigate or prosecute any alcohol or drug abuse patient.[facility] HospitalIn the event this information is protected by the Federal Confidentiality of Alcohol and Drug Abuse Patient Records regulations: The Federal rules restrict any use of the information to criminally investigate or prosecute any alcohol or drug abuse patient.[facility] HospitalIn the event this information is protected by the Federal Confidentiality of Alcohol and Drug Abuse Patient Records regulations: The Federal rules restrict any use of the information to criminally investigate or prosecute any alcohol or drug abuse patient.[facility] Reason for Visit (unrecogniz ed [...] COMPLEX CRANIAL LESION [facility] [address] [address] Referral ID Status Reason Start Date Expiration Date Visits Re quested Visits Authorized [id number] [address] Specialty Diagnoses / Procedures Referred By Contac t Referred To Contact ADMITTING Diagnoses Benign neoplasm of meninges (HCC) Procedures RADIATION DELIVERY STEREOTACTIC CRANIAL COBALT STEREOTACTIC RADIOSURGERY 1 COMPLEX CRANIAL LES RADIATION [place] STEREOTACTIC RADIOSURGERY (SRS) [place] CRANIAL LESION(S) 1 SESSION MULTI-SOURCE COBALT STEREOTACTIC RADIOSURGERY 1 COMPLEX CRANIAL LESION [facility] [address] [address] Reason Comments Recheck Reason Comments Centrifugal Screen Tender - Other Reason Comments Established Patient Reason Comments Established Patient Reason Comments Recheck Reason Comments Consult GK consult for LF me ningioma Reason Comments Centrifugal Screen Tender - 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 Reason Comments Procedure GKRS Reason Comments Radiology MRI Specialty Diagnoses / Procedures Referred By Contac t Referred To Contact MR IMAGING Diagnoses 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) New daily persistent headache Other headache syndrome Procedures MRI BRAIN WO/W IVCON MRI BRAIN BRAIN STEM W/O W/[place] [address] [place] [id number] [id number] Referral ID Status Reason Start Date Expiration Date V isits Requested Visits Authorized [id number] Closed Auto-Generate d Referral 04/29/2021 06/13/2021 1 1 Specialty Diagnoses / Procedures Referred By Contac t Referred To Contact MR IMAGING Diagnoses Benign neoplasm of meninges (HCC) Procedures MRI BRAIN WO/W IVCON MRI BRAIN BRAIN STEM W/O W/[place] [address] [place] [address] Mr Imaging [facility] Referral ID Status Reason Start Date Expiration Date V isits Requested Visits Authorized [id number] Closed Auto-Generate d Referral 06/21/2021 09/18/2021 1 1 Specialty Diagnoses / Procedures Referred By Contac t Referred To Contact MR IMAGING Diagnoses 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) Liver lesion Procedures MRI LIVER WO/W IVCON MRI ABDOMEN W/O & W/[place] [address] [place] [address] [place] [address] Referral ID Status Reason Start Date Expiration Date V isits Requested Visits Authorized [id number] Closed Auto-Generate d Referral 05/20/2021 07/11/2021 1 1 Specialty Diagnoses / Procedures Referred By Contac t Referred To Contact MR IMAGING Diagnoses Benign neoplasm of meninges (HCC) Procedures MRI BRAIN WO/W IVCON MRI BRAIN BRAIN STEM W/O W/CONTRAST MATERIAL Trista Bonilla APRN.PRESIDENT AND CMO [address] [place] [address] Mr Imaging [facility] Referral ID Status Reason Start Date Expiration Date V isits Requested Visits Authorized [id number] Closed Auto-Generate d Referral 08/29/2022 03/31/2023 1 1 Referral ID Status Reason Start Date Expiration Date V isits Requested Visits Authorized [id number] Closed Auto-Generate d Referral 08/23/2021 03/20/2022 1 1 Reason Comments Gamma Knife Follow-up Reason Comments Appointment Abdiaziz Bunch Reason Comments Established Patient Follow-Up Reason Comments Established Patient Meningioma Specialty Diagnoses / Procedures Referred By Contac t Referred To Contact MR IMAGING Diagnoses Benign neoplasm of meninges (HCC) Procedures MRI BRAIN WO/W IVCON MRI BRAIN BRAIN STEM W/O W/CONTRAST MATERIAL Gurpreet Beckwith DO, PhD [address] [facility] [address] [place] [address] Mr Imaging [facility] Referral ID Status Reason Start Date Expiration Date V isits Requested Visits Authorized [id number] Closed Auto-Generate d Referral 11/25/2022 12/25/2023 1 1 INFORMATION SOURCE (unrecogn ized section and content) DATE CREATED AUTHOR 06/10/2022 [facility] DATE CREATED AUTHOR AUTHOR'S ORGANIZ ATION 02/04/2023 [facility] DATE CREATED AUTHOR AUTHOR'S ORGANIZ ATION 03/30/2023 Ritesh Pickett [facility] DATE CREATED AUTHOR AUTHOR'S ORGANIZ ATION 06/08/2023 [facility] DATE CREATED AUTHOR AUTHOR'S ORGANIZ ATION 09/06/2023 [facility] DATE CREATED AUTHOR AUTHOR'S ORGANIZ ATION 09/13/2023 [facility] Teams (unrecognized sec tion and content) 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 Relationship Specialty Start Date End Date Lissett Vega MD [address] [facility] [place] [address] PCP - General Family Medicine 01/17/23 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 Relationship Specialty Start Date End Date Lissett Vega MD [address] [facility] [place] [address] PCP - General Family Medicine 01/17/23 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 Relationship Specialty Start Date End Date Lissett Vega MD [address] [facility] [place] [address] PCP - General Family Medicine 01/17/23 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 Relationship Specialty Start Date End Date Lissett Vega MD [address] [facility] [place] [address] PCP - General Family Medicine 01/17/23 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 Relationship Specialty Start Date End Date Lissett Vega MD [address] [facility] [place] [address] PCP - General Family Medicine 01/17/23 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 Relationship Specialty Start Date End Date Lissett Vega MD [address] [facility] [place] [address] PCP - General Family Medicine 01/17/23 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 Relationship Specialty Start Date End Date Lissett Vega MD [address] [place] [address] PCP - General Family Medicine 01/17/23 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 Relationship Specialty Start Date End Date Lissett Vega MD [address] [place] [address] PCP - General Family Medicine [...] July 03, 2023 End: July 03, 2023 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 Relationship Specialty Start Date End Date Lissett Vega MD [address] [place] [address] PCP - General Family Medicine 01/17/23 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 [facility] [employer], [facility]. provides no warranty or guarantee of the accuracy or completeness of information in this document.
== END 2023-09-25 10:04 | disposition home or self-care (01) ==
LOC: PST 10:03
PROVIDERS: PCP Family Medicine; Visit Provider Podiatrist Foot & Ankle Surgery
DX: Z01.810 Encounter for preprocedural cardiovascular examination (principal); T85.848A Pain due to other internal prosthetic devices, implants and grafts, initial encounter
CPT/HCPCS: 93005

== ENCOUNTER 2023-10-02 06:19 | Day surgery (SDC) | payer OTHER, SELFPAY ==
[2023-09-25 10:14] VITALS: BP 122/82; PULSE 64; TEMP 36.2; O2SAT 96; BMI 37.2
[2023-10-02] VITALS (13 sets, daily range): BP systolic 125–161; BP diastolic 79–100; PULSE 75–99; TEMP 36.2–37; O2SAT 92–97; BMI 37.3
--- NOTE | 2023-10-02 | FL_ITS ---
[address] [address] Patient Name: BEN TABOR MRN: [id number] date: 1975 Sex: F [facility]igned [facility] Current Patient Location: [facility] Accession/Order Number: [id number] Exam Date: 10/02/2023 08:09 Report Date: 10/12/2023 07:34 At the request of: ALEKSANDER FALCON Procedure: FL fluoroscopy <1hr NON-READ EXAM: FL fluoroscopy <1hr NON-READ HISTORY: TECHNIQUE: FINDINGS: Please see Operative Report. Electronically authenticated by: RADIOLOGIST NO Date: 10/12/2023 07:34
--- OUTSIDE RECORDS SUMMARY | 2023-10-02 06:22 | XMS_ITS | CCD ---
Author Organization [facility] Care Team Providers Care Honey Processor Name Role Phone Unavailable Primary Care Provider [...] Unavailable MD Lissett Vega Primary Care Provider [phone] MD Jes Vieira Attending Provider VETO SHIN [...] or physicia Propensity to adverse reactions Comment:Done [employer] Other (5 sources) Allergies Reconciled Propensity to adverse reactions Unknown [employer] Other (1 source) No Known Medication Allergies; [...] Provider: Gary Fung take 1 capsule by [facility] every twenty-four hours Flomax 0.4 MG 1 [...] Range Facility CNOVon 09-12-2023 CNOV Office Visit ([facility] ) ----- BEN CRUZ ([id number]) 1975 F Date Time Provider Department 09/12/23 11:45 AM ABDIAZIZ BUNCH [facility] During your visit today, we recorded the following information about you: Pulse Blood pressure Weight 81/minute 141/86 97 kg Abdiaziz Bunch, PSYCHOLOGIST SOCIAL.LAMINA SEARCHER 09/12/2023 1:21 PM Signed [facility] BRAIN TUMOR CENTER NEURO-ONCOLOGY OUTPATIENT CLINIC NOTE [...] DATE OF EXAM: Sep 12 2023 11:35AM [facility] 0295 - MRI BRAIN WO/W IVCON / ACCESSION (more content not included)... Normal [facility] MR Brain WO and W contrast I Von 09-12-2023 IMPRESSION: Unchanged size of presumed 9 mm meningioma along the left frontal convexity without substantial mass effect. Commercial Representative: TORI Transcribe Date/Time: Sep 12 2023 11:55A Dictated by : IAN DUNNE MD This examination was interpreted and the report reviewed and electronically signed by: IAN DUNNE MD on Sep 12 2023 11:58AM [facility] DIVISION OF RADIOLOGY * * *Final Report* * * DATE OF EXAM: Sep 12 2023 11:35AM [facility] 0295 - MRI BRAIN WO/W IVCON [...] DATE OF EXAM: Sep 12 2023 11:35AM [facility] 0295 - MRI BRAIN WO/W IVCON [...] left frontal convexity without substantial mass effect. Commercial [facility] Transcribe Date/Time: Sep 12 2023 11:55A Dictated by : IAN DUNNE MD This examination was interpreted and the report reviewed and electronically signed by: IAN DUNNE MD on Sep 12 2023 11:58AM EST [facility] Radiology Study observation (narrative) [facility] MR Brain WO and W contrast I VOrdered By: Ccf Provider on 09-12-2023 [facility] MRI BRAIN WO/W IVCONon 09-11 MRI BRAIN WO/W IVCON * * *Final Report* * * DATE OF EXAM: Sep 12 2023 11:35AM [facility] 0295 - MRI BRAIN WO/W IVCON [...] left frontal convexity without substantial mass effect. Commercial Representative: [facility] Transcribe Date/Time: Sep 12 2023 11:55A Dictated by : IAN DUNNE MD This examination was interpreted and the report reviewed and electronically signed by: IAN DUNNE MD on Sep 12 2023 11:58AM EST [id number] Normal [facility] ----- BEN CRUZ ([id number]) 1975 F Date Time Provider Department 09/08/23 ABDIAZIZ BUNCH [facility] During your visit today, we recorded the following information about you: Johann Henriquez RN 09/08/2023 12:36 PM Signed Patient called in requesting ativan for her MRI. Chart review indicates patient has been prescribed 1mg of ativan prior to past MRI's and has tolerated it well. Orders pended to provider for review. Johann Henriquez RN Glost Tile Sorter Allergies As of Date: 09/08/2023 (No Known [...] Encounter Status:Closed by ABDIAZIZ BUNCH on 09/08/23 [facility] CNOVSPon 06-13-2023 CNOVS Visit (SP) Office ([facility]) ----- BEN CRUZ ([id number]) 1975 F Date Time Provider Department 06/13/23 [...] no new issues and last visit with director of estate was about 6 months ago. She denies [...] Lymph 1.00 - 4.00 k/uL 2.12 Abs [place] <0.87 k/uL 0.72 Abs Eosin <0.46 k/uL [...] 6 months - recommend follow up with director of estate Patient seen and discussed with Gastroenterology Oncology [...] beckwith co (more content not included)... Normal [facility] ECG 12 lead ECGon 06-05-2023 ECG 12 lead ECG [facility] [place] [address] Electrocardiograph Report Signed Patient: Ben Cruz MR#: [id number] 3 : 1975 Acct:[id number] Age/Sex: 47 / F ADM Date: 06/05/23 Loc: EKGCARDIO Room: Type: [facility] Attending Dr: Jes Vieira MD [...] previous ECGs available Confirmed by Demetri Shah ([id number]) on 06/07/2023 7:37:06 PM Referred By: Electronically Signed By:Demetri hSah Transcribed By: MUS Signed By Demetri Shah MD 06/07/23 1937 [facility] CNCOon 05-12-2023 CNCO Letter Text Normal [facility] CNPNon 05-12-2023 CNPN Telephone ([facility]) ----- BEN CRUZ ([id number]) 1975 F Date Time Provider Department 05/12/23 GURPREET BECKWITH [facility] During your visit today, we recorded the following information about you: Marli Patino 05/12/2023 9:28 AM Signed Per Johann BIRD)-via email: This patient had GK in January and their follow up MRI and appointment was never scheduled. She needs an MRI at [facility] and follow up same day [...] Encounter Status:Closed by MARLI PATINO on 05/12/23 [facility] [place] 05-11-2023 CNPN Telephone ([facility]) ----- BEN CRUZ ([id number]) 1975 F Date Time Provider Department 05/11/23 JOHANN HENRIQUEZ [facility] During your visit today, we [...] Fully Assessed Reason for Visit: Patient Question [6174] Prescriptions as of 05/11/2023 - dexAMETHasone (DECADRON) [...] Status:Closed by JOHANN HENRIQUEZ on 05/11/[address] [facility] Outside Colonoscopyon 2022 Outside Colonoscopy [id number]#[id number] [facility] Reminderson 03-09-2023 Reminders - From: Veronica Jack LPN To: N - Clinical; Sent: 03/09/2023 13:42:54 EST Show up: 02/06/2033 07:00:00 EST Subject: colonoscopy recall Due Date/Time: 03/08/2033 07:00:00 EST Reminder/Recall Patient due for screening colonoscopy 03/08/2033. [facility] Consent for Procedure/Surger yon 02-21-2023 Consent for Procedure/Surgery [id number]#1.00TIFF [facility] Facesheeton 02-20-2023 Facesheet [id number]#1.00TIFF [facility] Ambulatory Visit Summaryon 1 04-19-2022 Ambulatory Visit [...] you for choosing us for your care[facility] ----- BEN CRUZ ([id number]) 1975 F Date Time Provider Department 02/07/23 JOHANN HENRIQUEZ [facility] During your visit today, we [...] Encounter Status:Closed by JOHANN HENRIQUEZ on 02/07/23 [facility] [place] 02-06-20[facility] ----- BEN CRUZ ([id number]) 1975 F Date Time Provider Department 02/06/23 JOHANN HENRIQUEZ [facility] During your visit today, we recorded the following information about you: Johann Henriquez RN 02/06/2023 1:20 PM Signed Calling Ben for post-GKRS follow-up. Unable to reach at this time. Left voicemail. Johann Henriquez RN 02/07/2023 1:19 PM Signed 2nd attempt to reach out, patient unavailable. Will send [employer] message with contact information to call if she is experiencing any symptoms or has any concerns since gamma knife treatment. Allergies As of Date: 02/06/2023 (No Known Allergies) Date Reviewed: 01/27/2023 Reviewed by: Anton Tererll, BIGG - Fully Assessed Reason for Visit: [...] Encounter Status:Closed by JOHANN HENRIQUEZ on 02/07/23 [facility] CNOPon 01-27-2023 CNOP Operative Note (Enc) ([facility]) ----- Encounter Status:Closed by GURPREET BECKWITH on 01/27/23 [facility] CNOP Operative Note (Enc) ([facility]) ----- Encounter Status:Closed by GURPREET BECKWITH on 01/27/23 [facility] CNOVon 01-27-2023 CNOV Office Visit ([facility] ) ----- BEN CRUZ ([id number]) 1975 F Date Time Provider Department 01/27/23 [...] content not included)... Normal [facility] CNOV Office Visit ([facility] ) ----- BNE CRUZ ([id number]) 1975 F Date Time Provider Department 01/27/23 8:30 AM MASK PLACEMENT NEUS [facility] During your visit today, we recorded [...] Dr. Aria Beckwith DO, Gayle Acevedo RN 0764 Mask SIM completed. Ben Cruz returned to department for treatment # 1 of 1. Is patient receiving immunotherapy infusions: Not Applicable. Patient's Age: 47 Menstruation Status: [place]ste[place] [facility] [place] Results: N/A test not performed QC: Yes, testing is valid (or protocol followed for invalid testing). Reference range: Normal Value = Negative for hCG. POC performed by: Gayle Aceevdo RN 0933 4 mg Decadron PO given prior to GKRS per order of Dr. Virgil Beckwith 0946 GKRS start time. 1016 GKRS end time. 1025 Discharge instructions given to patient; instructions reviewed by this RN; patient/family verbalized understanding; patient discharged via/with BIGG Segura Kaitlin, RN 01/27/2023 8:35 AM Addendum [facility] Knife [facility] Discharge Instructions As [...] a physician or hospital other than the [facility] with any problem related to [...] problems, you may your physician, Dr. Virgil Becwkith at [phone] Monday through Monday 8:00 am to 5:00 pm, or call the Gamma Knife nurse Monday through Monday 8:00 am to 4:00 pm at [phone]. In the evening or on weekends, call [phone] or toll-free [phone] and ask the legger press operator to page your neurosurgeon's resident precision assembly inspector. Referring Provider: GURPREET BECKWITH [[id number]] Allergies As [...] 01/27/2023 Other instructions from your clinician: [facility] Discharge Instructions As with any surgery there are risks and potential side effects. Th (more content not included)... Normal [facility] CT BRAIN WO IVCONon 01-28-20 23 [...] were required COMPARISON: Concurrent brain MRI RESULT: Pencils Washer (topogram) images: No additional findings. Post-operative change: [...] OF EXTRA-AXIAL ENHANCING TISSUE SEEN ON MRI Commercial Representative: TORI Transcribe Date/Time: Jan 27 2023 8:21A Dictated by : ESTUARDO WHALEY MD This examination was interpreted and the report reviewed and electronically signed by: ESTUARDO WHALEY MD on Jan 27 2023 8:23AM EST [id number] Normal [facility] MRI BRAIN LOCAL W IVCONon MRI [...] FRONTAL LOBE, UNCHANGED GOING BACK TO 06/01/2021 Commercial Representative: [facility] Transcribe Date/Time: Jan 27 2023 8:08A Dictated by : ESTUARDO WHALEY MD This examination was interpreted and the report reviewed and electronically signed by: ESTUARDO WHALEY MD on Jan 27 2023 8:20AM EST [id number] Normal [facility] MRI BRAIN LOCALIZATION W IVC ONon 01-27-2023 [facility] Physician Referralon 023 Physician Referral [id number]#1.00TIFF Normal [facility] Physician Referralon 023 Physician Referral [id number]#1.00TIFF Normal [facility] CNOVSPon 12-22-2022 CNOVSP Visit (SP) Office ([facility]) ----- BEN CRUZ ([id number]) 1975 F Date Time Provider Department 12/22/22 [...] were negative. Declined an adjuvant trial in [place]. Baseline imaging today is negative CC: Melanoma [...] No Does patient want to see a Radar Air Traffic Controller? No (yes to any of above refer [...] for Encounter Date Provider Department Center 12/22/2022 [id number] ECHEVERRIA [facility] [place] [facility] Prescriptions as of 12/23/2022 - meloxicam (MOBIC) 15 mg tablet - inclisiran (LEQVIO) 284 mg/1.5 mL injection - omeprazole (PRILOSEC) 20 mg capsule Take 20 mg by mouth once daily. Problem List As Of Date: 12/22/2022 (None) Visit Notes: >> Ava Urbina LPN [facility] Dec 22, 2022 10:14 AM Status: Signed Additional intake questions: Has the patient had fever, nausea, vomiting, diarrhea, constipation, fatigue for > 1 week? No Does the patient have a decreased appetite? No Does patient want to see a Radar Air Traffic Controller? No (yes to any of above refer patient to schedulers for dietitian appointment) ) Does patient have any new or increased numbness or tingling of extremities? No Is patient interested in fertility information? No Does patient need any prescription refills? No Does patient have an advanced directive in place? No, Patient refused referral to Social Work or Resource Center [facility] [place] 11-15-2022 NICOLAS Telephone ([facility]) ----- BEN CRUZ ([id number]) 1975 F Date Time Provider Department 11/15/22 BETZY HEARD [facility] During your visit today, we recorded the following information about you: Betzy Heard RN 11/15/2022 2:04 PM Signed Calling Ben to follow up on [employer] message about scheduling gamma knife for 01/27/2023 No answer, left message stating that I'll go ahead and place the GK orders. Reminded to disregard ANY appointment times she sees in [employer], any automated text reminders or automated phone calls for 01/27/23 She will receive a call from the GK nurse or radiation therapist the day before with her arrival time. If she has any questions, I left office phone # for call back or she can send a [employer] message. I will send out a GK folder with additional information related to Mask Based Gamma Knife Radiosurgery Betzy Heard RN, BSN [employer] Tile Sorter [facility] Allergies As of Date: 11/15/2022 (No Known Allergies) Date Reviewed: 10/19/2022 Reviewed by: Trista Bonilla APRN.LAMINA SEARCHER - Fully Assessed Reason for Visit: Glost Tile Sorter - Other [3606] Cmt: Schedule gamma knife 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 Prescriptions as of 11/15/2022 - meloxicam (MOBIC) 15 mg tablet - inclisiran (LEQVIO) 284 mg/1.5 mL injection - omeprazole (PRILOSEC) 20 mg capsule Take 20 mg by mouth once daily. Problem List As Of Date: 11/15/2022 (None) Encounter Status:Closed by BETZY HEARD on 11/15/22 [facility] [place] [facility] ----- BEN CRUZ ([id number]) 1975 F Date Time Provider Department 7/20/23 [...] Date Reviewed: 10/19/2022 Reviewed by: Trista Bonilla APRN.LAMINA SEARCHER - Fully Assessed Reason for Visit: GIN - new pt consult with Dr. Beckwith [Other] Prescriptions as of 11/10/2022 - meloxicam (MOBIC) 15 mg tablet - inclisiran (LEQVIO) 284 mg/1.5 mL injection - omeprazole (PRILOSEC) 20 mg capsule Take 20 mg by mouth once daily. Problem List As Of Date: 10/20/2022 (None) Encounter Status:Closed by BETZY HEARD on 11/10/[address] [facility] MRI BRAIN WO/W IVCONon 10-17 MRI BRAIN WO/W IVCON * * *Final Report* * * DATE OF EXAM: Oct 17 2022 11:20AM [facility] 0295 - MRI BRAIN WO/W IVCON [...] with air-fluid level suggestive of acute/active sinusitis. Commercial Representative: [facility] Transcribe Date/Time: Oct 17 2022 11:35A Dictated by : CHUCKY BRAY MD This examination was interpreted and the report reviewed and electronically signed by: CHUCKY BRAY MD on Oct 17 2022 11:45AM EST [id number] Normal [facility] Complete Blood Count Auto Di ffon 09-12-2022 Basophils (Bld) [#/Vol] 0.1 10*3/uL Normal 0.0-0.2 [facility] Comment on above: Result Comment: PERF ORMED BY: [place] [address] PATHOLOGIST GLOVE PARTS INSPECTOR ARNULFO STYLES M.D. Performed By: #### C BC #### [place] [address] [place] Basophils/100 WBC (Bld) 0.7 % Normal . [facility] Comment on above: Performed By: #### C BC #### [facility] [address] [place] [address] [place] Eosinophils (Bld) [#/Vol] 0.2 10*3/uL Normal 0.0-0.45 [facility] Comment on above: Performed By: #### C BC #### [place] [address] [place] Eosinophils/100 WBC (Bld) 2.7 % Normal . [facility] Comment on above: Performed By: #### C BC #### [facility] [address] Erythrocyte distribution width (RBC) [Ratio] 12.9 % Normal 11.9-15.3 [facility] Comment on above: Performed By: #### C BC #### [facility] [address] Hematocrit (Bld) [Volume fraction] 41.8 % Normal 34.0-46.4 [facility] Comment on above: Performed By: #### C BC #### [address] Hemoglobin (Bld) [Mass/Vol] 14.3 g/dL Normal 11.8-15.4 [facility] Comment on above: Performed By: #### C BC #### [address] Lymphocytes (Bld) [#/Vol] 2.0 10*3/uL Normal 1.00-4.8 [facility] Comment on above: Performed By: #### C BC #### [address] Lymphocytes/100 WBC (Bld) 25.3 % Normal . [facility] Comment on above: Performed By: #### C BC #### [address] MCH (RBC) [Entitic mass] 29.8 pg Normal 24.7-34.3 [facility] Comment on above: Performed By: #### C BC #### [address] MCV (RBC) [Entitic vol] 87.2 fL Normal 80-100 [facility] Comment on above: Performed By: #### C BC #### [address] Mean Corpuscular HGB Conc 34.2 g/dL Normal 32.0-35.0 [facility] Comment on above: Performed By: #### C BC #### [address] Monocytes (Bld) [#/Vol] 0.7 10*3/uL Normal 0.0-0.8 [facility] Comment on above: Performed By: #### C BC #### [facility] [address] Monocytes/100 WBC (Bld) 9.1 % Normal . [facility] Comment on above: Performed By: #### C BC #### [facility] [address] Neutrophils (Bld) [#/Vol] 4.8 10*3/uL Normal 1.8-7.7 [facility] Comment on above: Performed By: #### C BC #### [address] Neutrophils/100 WBC (Bld) 62.2 % Normal . [facility] Comment on above: Performed By: #### C BC #### [address] NRBC% 0.4 /100{WBC} Normal 0-0.5 [facility] Comment on above: Performed By: #### C BC #### [address] Platelet mean volume (Bld) [Entitic vol] 7.5 fL Normal 6.3-10.7 [facility] Comment on above: Performed By: #### C BC #### [place] [address] [place] Platelets (Bld) [#/Vol] 225 10*3/uL Normal 150-450 [facility] Comment on above: Performed By: #### C BC #### [facility] [address] RBC (Bld) [#/Vol] 4.80 10*6/uL Normal 3.60-5.00 [facility] Comment on above: Performed By: #### C BC #### [address] WBC (Bld) [#/Vol] 7.7 10*3/uL Normal 3.8-11.6 [facility] Comment on above: Performed By: #### C BC #### [facility] [address] XR chest 2V*on 09-12-2022 XR chest 2V* [facility] Main [place] [address] [place] [id number] XRay Report Signed Patient: Ben Cruz MR#: [id number] 3 : 1975 Acct:[id number] Age/Sex: 47 / F ADM Date: 09/12/22 Loc: [place] Room: Type: [facility] Attending Dr: Taz Rossi DPBrendan Copies [...] Florentino Woods M.D.09/12/2022 4:53 PM Dictation Location: [place] [address] Transcribed By: [facility] 09/12/221652 Dictated By: Florentino Woods II, MD 09/12/221651 Signed By: 09/12/221652 Normal [facility] MRI BRAIN WO/W IVCONon 02-23 [facility] CBC AUTO DIFFon 11-18-2021 BASO # 0.0 103/ul Normal 0.0-0.1 [facility] Comment on above: Performed By: #### H FPFCBC #### [facility] [address] [place] [address] [address] Arcenio Billy Basophils/100 WBC (Bld) 0.4 % Normal 0.2-2.0 [facility] Comment on above: Performed By: #### H FPFCBC #### [facility] [address] [place] [address] Dr. Arcenio Billy EO # 0.2 103/ul Normal 0.0-0.7 [facility] Comment on above: Performed By: #### H FPFCBC #### [facility] [address] [place] [address] Dr. Arcenio Billy Eosinophils/100 WBC (Bld) 3.0 % Normal 0.9-7.0 [facility] Comment on above: Performed By: #### H FPFCBC #### [facility] [address] [place] [address] Dr. Arcenio Billy Erythrocyte distribution width (RBC) [Ratio] 12.1 % Normal 11.0-15.0 [facility] Comment on above: Performed By: #### H FPFCBC #### [facility] [address] [place] [address] Dr. Arcenio Billy Hematocrit (Bld) [Volume fraction] 43.1 % Normal 36.0-48.0 [facility] Comment on above: Performed By: #### H FPFCBC #### [facility] [address] [place] [address] Dr. Arcenio Billy Hemoglobin (Bld) [Mass/Vol] 14.1 g/dL Normal 12.0-16.0 [facility] Comment on above: Performed By: #### H FPFCBC #### [facility] [address] [place] [address] Dr. Arcenio Billy IG # 0.01 10e3/ul Normal 0.00-0.03 [facility] Comment on above: Performed By: #### H FPFCBC #### [facility] [address] [place] [address] Dr. Arcenio Billy IG % 0.2 % Normal 0.0-0.5 [facility] Comment on above: Performed By: #### H FPFCBC #### [facility] [address] [place] [address] Dr. Arcenio Billy LYMPH # 1.9 103/ul Normal 1.2-3.8 [facility] Comment on above: Performed By: #### H FPFCBC #### [facility] [address] [place] [address] Dr. Arcenio Billy Lymphocytes/100 WBC (Bld) 35.7 % Normal 20.5-60.0 [facility] Comment on above: Performed By: #### H FPFCBC #### [facility] [address] [place] [address] Dr. Arcenio Billy MCH (RBC) [Entitic mass] 28.8 pg Normal 26.7-34.0 [facility] Comment on above: Performed By: #### H FPFCBC #### [facility] [address] [place] [address] Dr. Arcenio Billy MCHC (RBC) [Mass/Vol] 32.7 g/dL Normal 29.9-35.2 [facility] Comment on above: Performed By: #### H FPFCBC #### [facility] [address] [place] [address] Dr. Arcenio Billy MCV (RBC) [Entitic vol] 88.1 fL Normal 81.0-99.0 [facility] Comment on above: Performed By: #### H FPFCBC #### [facility] [address] [place] [address] Dr. Arcenio Billy MONO # 0.5 103/ul Normal 0.3-0.8 [facility] Comment on above: Performed By: #### H FPFCBC #### [facility] [address] [place] [address] Dr. Arcenio Billy Monocytes/100 WBC (Bld) 9.9 % Normal 1.7-12.0 [facility] Comment on above: Performed By: #### H FPFCBC #### [facility] [address] [place] [address] Dr. Arcenio Billy NEUT # 2.7 103/ul Normal 1.4-6.5 [facility] Comment on above: Performed By: #### H FPFCBC #### [facility] [address] [place] [address] Dr. Arcenio Billy Neutrophils/100 WBC (Bld) 50.8 % Normal 43.0-75.0 [facility] Comment on above: Performed By: #### H FPFCBC #### [facility] [address] [place] [address] Dr. Arcenio Billy Platelet mean volume (Bld) [Entitic vol] 8.9 fL Critically low 9.5-13.5 [facility] Comment on above: Performed By: #### H FPFCBC #### [facility] [address] [place] [address] Dr. Arcenio Billy PLT 271 103/ul Normal 150-450 [facility] Comment on above: Performed By: #### H FPFCBC #### [facility] [address] [place] [address] Dr. Arcenio Billy RBC 4.89 106/ul Normal 4.20-5.40 [facility] Comment on above: Performed By: #### H FPFCBC #### [facility] [address] [place] [address] Dr. Arcenio Billy WBC 5.3 103/ul Normal 4.0-11.0 [facility] Comment on above: Performed By: #### H FPFCBC #### [facility] [address] [place] [address] Dr. Arcenio Billy [facility] PROFILEon 022 Albumin [Mass/Vol] 3.7 g/dL Normal 3.4-5.0 [facility] Comment on above: Performed By: #### H FPF #### [facility] [address] [place] [address] Dr. Arcenio Billy Albumin/Globulin [Mass ratio] 1.1 {ratio} Normal [facility] Comment on above: Performed By: #### H FPF #### [facility] [address] [place] [address] Dr. Arcenio Billy ALP [Catalytic activity/Vol] 60 U/L Normal 46-116 [facility] Comment on above: Performed By: #### H FPF #### [facility] [address] [place] [address] Dr. Arcenio Billy ALT [Catalytic activity/Vol] 47 U/L Normal 14-59 [facility] Comment on above: Performed By: #### H FPF #### [facility] [address] [address] [address] Arcenio Billy AST [Catalytic activity/Vol] 25 U/L Normal 15-37 [facility] Comment on above: Performed By: #### H FPF #### [facility] [address] [address] [address] Arcenio Billy Bilirubin [Mass/Vol] 0.5 mg/dL Normal 0.2-1.0 [facility] Comment on above: Performed By: #### H FPF #### [facility] [address] [place] [address] Dr. Arcenio Billy Calcium [Mass/Vol] 8.8 mg/dL Normal 8.5-10.1 [facility] Comment on above: Performed By: #### H FPF #### [facility] [address] [place] [address] Dr. Arcenio Billy Chloride [Moles/Vol] 103 mmol/L Normal 98-107 [facility] Comment on above: Performed By: #### H FPF #### [facility] [address] [place] [address] Dr. Arcenio Billy CHOL-HDL RATIO NORM SEE BELOW Normal [facility] Comment on above: Result Comment: 3.3 - 4.4 LOW RISK 4.4 - 7.1 AVERAGE RISK 7.1 - 11.0 MODERATE RISK >11.0 HIGH RISK Performed By: #### H FPF #### [facility] [address] [place] [address] Dr. Arcenio Billy Cholesterol [Mass/Vol] 352 mg/dL Critically high <=200 [facility] Comment on above: Performed By: #### H FPF #### [facility] [address] [place] [address] Dr. Arcenio Billy Cholesterol in HDL [Mass/Vol] 34 mg/dL Critically low 40-60 [facility] Comment on above: Performed By: #### H FPF #### [facility] [address] [address] [address] Arcenio Billy Cholesterol in LDL [Mass/Vol] 274.2 mg/dL Normal [facility] Comment on above: Performed By: #### H FPF #### [facility] [address] [address] [address] Arcenio Billy Cholesterol.total/ Cholesterol in HDL [Mass ratio] 10.4 {ratio} Normal [facility] Comment on above: Performed By: #### H FPF #### [facility] [address] [address] [address] Arcenio Billy CO2 [Moles/Vol] 25.7 mmol/L Normal 21.0-32.0 [facility] Comment on above: Performed By: #### H FPF #### [facility] [address] [address] [address] Arcenio Billy Creatinine [Mass/Vol] 0.91 mg/dL Normal 0.55-1.02 [facility] Comment on above: Performed By: #### H FPF #### [facility] [address] [address] [address] Arcenio Billy Globulin (S) [Mass/Vol] 3.4 g/dL Normal [facility] Comment on above: Performed By: #### H FPF #### [facility] [address] [address] [address] Arcenio Billy Glucose [Mass/Vol] 91 mg/dL Normal 74-106 [facility] Comment on above: Performed By: #### H FPF #### [facility] [address] [address] [address] Arcenio Billy HDL NORMAL > or = 60 mg/dl - LO W CARDIOVASCULAR RISK <40 mg/dl - HIGH CARDIOVASCULAR RISK Normal [facility] Comment on above: Performed By: #### H FPF #### [facility] [address] [address] [address] Arcenio Billy LDL CALC NORMAL SEE BELOW Normal [facility] Comment on above: Result Comment: <100 mg/dl OPTIMAL 100 - 129 mg/dl NEAR OR ABOVE OPTIMAL 130 - 159 mg/dl BORDERLINE HIGH 160 - 189 mg/dl HIGH >190 mg/dl VERY HIGH Performed By: #### H FPF #### [facility] [address] [address] [address] Arcenio Billy Potassium [Moles/Vol] 4.1 mmol/L Normal 3.5-5.1 [facility] Comment on above: Performed By: #### H FPF #### [facility] [address] [address] [address] Arcenio Billy Protein [Mass/Vol] 7.1 g/dL Normal 6.4-8.2 [facility] Comment on above: Performed By: #### H FPF #### [facility] [address] [place] [address] Dr. Arcenio Billy Sodium [Moles/Vol] 139 mmol/L Normal 136-145 [facility] Comment on above: Performed By: #### H FPF #### [facility] [address] [place] [address] Dr. Arcenio Billy Triglyceride [Mass/Vol] 219 mg/dL Critically high <=150 [facility] Comment on above: Performed By: #### H FPF #### [facility] [address] [place] [address] Dr. Arcenio Billy TSH 1.717 uIU/mL Normal 0.358-3.740 [facility] Comment on above: Performed By: #### H FPF #### [facility] [address] [place] [address] Dr. Arcenio Billy Urea nitrogen [Mass/Vol] 11.0 mg/dL Normal 7.0-18.0 [facility] Comment on above: Performed By: #### H FPF #### [facility] [address] [place] [address] Dr. Arcenio Billy Urea nitrogen/Creatinin e [Mass ratio] 12.1 mg/mg Normal [facility] Comment on above: Performed By: #### H FPF #### [facility] [address] [address] [address] Arcenio Billy VLDL CALC 43.8 mg/dL Normal [facility] Comment on above: Performed By: #### H FPF #### [facility] [address] [address] [address] Arcenio Bilyl PAP ACOG PANEL 2: 30 to 65on 09-19-2021 . . Normal [facility] Comment on above: Result Comment: Perf ormed at: WB Performed By: #### [id number] #### [facility] [address] [place] [address] Dr. Arcenio Billy Age Gdln ACOG Testing 30-65 [facility] Comment on above: Performed By: #### [id number] #### [facility] [address] [place] [address] Dr. Arcenio Billy DIAGNOSIS: Comment Normal [facility] Comment on above: Result Comment: NEGA TIVE FOR INTRAEPITHELIAL LESION OR MALIGNANCY. FUNGAL ORGANISMS MORPHOLOGICALLY CONSISTENT WITH MOSES SPECIES ARE PRESENT. Performed at: WB Performed By: #### [id number] #### [facility] [address] [place] [address] Dr. Arcenio Billy HPV Aptima Negative Normal Negative [facility] Comment on above: Result Comment: This nucleic acid amplification test detects fourteen high-risk HPV types (16,18,31,33,35,39,45,51,52,56,58,59,66,68) without differentiation. Performed at: =G Performed By: #### [id number] #### [facility] [address] [place] [address] Dr. Arcenio Billy Methodology: Comment Normal [facility] Comment on above: Result Comment: This liquid based ThinPrep(R) pap test was screened with the use of an image guided system. Performed at: WB Performed By: #### [id number] #### [facility] [address] [place] [address] Dr. Arcenio Billy Note: Comment Normal [facility] Comment on above: Result Comment: The Pap smear is a screening test designed to aid in the detection of premalignant and malignant conditions of the uterine cervix. It is not a diagnostic procedure and should not be used as the sole means of detecting cervical cancer. Both false-positive and false-negative reports do occur. . Performed at: WB Performed By: #### [id number] #### [facility] [address] [address] [address] Arcenio Billy Performed by: Comment Normal [facility] Comment on above: Result Comment: Bronson Cordero, Deputy Director (ASCP) Performed at: WB Performed By: #### [id number] #### [facility] [address] [address] [address] Arcenio Billy Specimen adequacy: Comment Normal [facility] Comment on above: Result Comment: Sati sfactory for evaluation. No endocervical component is identified. Performed at: WB Performed By: #### [id number] #### [facility] [address] [address] [address] Arcenio Billy MG MAMM SCREEN 3D JULIO CÉSAR CADon 09-08-2021 MG MAMM SCREEN 3D JULIO CÉSAR CAD Patient: BEN CRUZ Exam Date: 09/08/2021 : 1975 Gender:F Ordering : DR CHELITA VILLANUEVA . Admission #: [id number] Family : Order #: [id number] CLICK HERE TO VIEW EXAM RADIOLOGY REPORT [...] pancreatic cancer at age 71. LOCATION: [facility] BREAST COMPOSITION: Scattered areas fibroglandular [...] Mc MD on 09/08/2021 at 11:41 Normal [facility] MRI BRAIN WO/W IVCONon 08-23 [facility] MRI LIVER WO/W IVCONon 06-16 [facility] MRI BRAIN WO/W IVCONon 06-01 [facility] Vital Signs Date Time Vital Sign Value Performing Clinician Facility 09-12-2023 11:41-0400 Body mass index (BMI) [Ratio] 35.63 kg/m2 Abdiaziz Bunch PSYCHOLOGIST SOCIAL.LAMINA SEARCHER Work Phone: [facility] 09-12-2023 11:41-0400 Body weight 97 kg Abdiaziz Bunch PSYCHOLOGIST SOCIAL.LAMINA SEARCHER Work Phone: [facility] 09-12-2023 11:41-0400 Diastolic blood pressure 86 mm[Hg] Abdiaziz Bunch PSYCHOLOGIST SOCIAL.LAMINA SEARCHER Work Phone: [facility] 09-12-2023 11:41-0400 Heart rate 81 /min Abdiaziz Bunch PSYCHOLOGIST SOCIAL.LAMINA SEARCHER Work Phone: [facility] 09-12-2023 11:41-0400 SaO2% (BldA) [Mass fraction] 99 % Abdiaziz Bunch PSYCHOLOGIST SOCIAL.LAMINA SEARCHER Work Phone: [facility] 09-12-2023 11:41-0400 Systolic blood pressure 141 mm[Hg] Abdiaziz Bunch PSYCHOLOGIST SOCIAL.LAMINA SEARCHER Work Phone: [facility] 07-03-2023 10:59-0400 Body height 162.56 cm MD Lissett Vega Work Phone: [facility] 06-13-2023 09:34-0400 Body temperature 97.59 [degF] Debbie Echeverria MD Work Phone: [facility] 06-13-2023 09:34-0400 Body weight 95.8 kg Debbie Echeverria MD Work Phone: [facility] 06-13-2023 09:34-0400 Diastolic blood pressure 92 mm[Hg] Debbie Echeverria MD Work Phone: [facility] 06-13-2023 09:34-0400 Heart rate 79 /min Debbie Echeverria MD Work Phone: [facility] 06-13-2023 09:34-0400 Respiratory rate 20 /min Debbie Echeverria MD Work Phone: [facility] 06-13-2023 09:34-0400 SaO2% (BldA) [Mass fraction] 96 % Debbie Echeverria MD Work Phone: [facility] 06-13-2023 09:34-0400 Systolic blood pressure 142 mm[Hg] Debbie Echeverria MD Work Phone: [facility] 06-05-2023 13:23-0500 Body height 162.56 cm MD Lissett Vega Work Phone: [facility] 06-05-2023 13:23-0500 Body mass index (BMI) [Ratio] 35.6 kg/m2 MD Lissett Vega Work Phone: [facility] 06-05-2023 13:23-0500 Body weight 94.34 kg MD Lissett Vega Work Phone: [facility] 06-05-2023 13:23-0500 Diastolic blood pressure 84 mm[Hg] MD Lissett Vega Work Phone: [facility] 06-05-2023 13:23-0500 Heart rate 88 /min MD Lissett Vega Work Phone: [facility] 06-05-2023 13:23-0500 Respiratory rate 18 /min MD Lissett Vega Work Phone: [facility] 06-05-2023 13:23-0500 SaO2% (BldA) [Mass fraction] 95 % MD Lissett Vega Work Phone: [facility] 06-05-2023 13:23-0500 Systolic blood pressure 122 mm[Hg] MD Lissett Vega Work Phone: [facility] 03-16-2023 13:45-0500 Body height 162.56 cm Lissett Vega Other [employer] Other 03-16-2023 13:45-0500 Body mass index (BMI) [Ratio] 34.5 kg/m2 Lissett Vega Other [employer] Other 03-16-2023 13:45-0500 Body temperature 99.1 [degF] Lissett Vega Other [employer] Other 03-16-2023 13:45-0500 Body weight 91.17 kg Lissett Vega Other [employer] Other 03-16-2023 13:45-0500 Diastolic blood pressure 88 mm[Hg] Lissett Vega Other [employer] Other 03-16-2023 13:45-0500 SaO2% (BldA) [Mass fraction] 98 % Lissett Vega Other [employer] Other 03-16-2023 13:45-0500 Systolic blood pressure 128 mm[Hg] Lissett Vega Other [employer] Other 02-17-2023 14:47-0500 Blood Pressure Location Debbie MARYL [facility] 02-17-2023 14:47-0500 Diastolic blood pressure 84 mm[Hg] Debbie NILL [facility] 02-17-2023 14:47-0500 Heart rate 76 /min Debbie NILL [facility] 02-17-2023 14:47-0500 Respiratory rate 16 /min Debbie NILL [facility] 02-17-2023 14:47-0500 Systolic blood pressure 128 mm[Hg] Debbie DE [facility]ANTOS [facility] 09-21-2022 11:30-0400 Body height 162.56 cm Lissett Vega Other [employer] Other 09-21-2022 11:30-0400 Body mass index (BMI) [Ratio] 36.56 kg/m2 Lissett Vega Other [employer] Other 09-21-2022 11:30-0400 Body weight 96.62 kg Lissett Vega Other [employer] Other 09-21-2022 11:30-0400 Diastolic blood pressure 84 mm[Hg] Lissett Vega Other [employer] Other 09-21-2022 11:30-0400 Systolic blood pressure 137 mm[Hg] Lissett Vega Other [employer] Other 06-21-2022 10:32-0400 Body height 165 cm Debbie Echeverria MD Work Phone: [facility] 06-21-2022 10:32-0400 Body temperature 96.8 [degF] Debbie Echeverria MD Work Phone: [facility] 06-21-2022 10:32-0400 Body weight 98.79 kg Debbie Echeverria MD Work Phone: [facility] 06-21-2022 10:32-0400 Diastolic blood pressure 82 mm[Hg] Debbie Echeverria MD Work Phone: [facility] 06-21-2022 10:32-0400 Heart rate 74 /min Debbie Echeverria MD Work Phone: [facility] 06-21-2022 10:32-0400 Respiratory rate 18 /min Debbie Echeverria MD Work Phone: [facility] 06-21-2022 10:32-0400 SaO2% (BldA) [Mass fraction] 96 % Debbie Echeverria MD Work Phone: [facility] 06-21-2022 10:32-0400 Systolic blood pressure 139 mm[Hg] Debbie Echeverria MD Work Phone: [facility] 12-21-2021 13:24-0400 Body temperature 98.6 [degF] Debbie Echeverria MD Work Phone: [facility] 12-21-2021 13:24-0400 Body weight 102.15 kg Debbie Echeverria MD Work Phone: [facility] 12-21-2021 13:24-0400 Diastolic blood pressure 82 mm[Hg] Debbie Echeverria MD Work Phone: [facility] 12-21-2021 13:24-0400 Heart rate 79 /min Debbie Echeverria MD Work Phone: [facility] 12-21-2021 13:24-0400 Respiratory rate 20 /min Debbie Echeverria MD Work Phone: [facility] 12-21-2021 13:24-0400 SaO2% (BldA) [Mass fraction] 100 % Debbie Echeverria MD Work Phone: [facility] 12-21-2021 13:24-0400 Systolic blood pressure 145 mm[Hg] Debbie Echeverria MD Work Phone: [facility] Encounters Encounter Date Encounter Type Care Provider Facility Start: 09-12-2023 End: 09-12-2023 ambulatory ABDIAZIZ BUNCH Facility:[facility] Start: 09-12-2023 End: 09-12-2023 Patient encounter procedure Abdiaziz Bunch PSYCHOLOGIST SOCIAL.LAMINA SEARCHER Work Phone: Neurosurgery Comment on above: 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 Work Phone: Start: 07-03-2023 End: 07-03-2023 Patient encounter procedure MD Lissett Vega Work Phone: [facility] Physician [facility] Work Phone: Start: 06-13-2023 End: 06-13-2023 ambulatory Debbie Echeverria MD Work Phone: Hematology/Oncology Comment on above: Malignant melanoma o f torso excluding breast (HCC) (Primary Dx) Start: 06-13-2023 End: 06-13-2023 Patient encounter procedure Debbie Echeverria MD Work Phone: [facility] Start: 06-05-2023 End: 06-05-2023 ambulatory Jesmerary Vieira Facility:[facility] Start: 06-05-2023 End: 06-05-2023 Patient encounter procedure MD Lissett Vega Work Phone: [facility] Physician [facility] Work Phone: Start: 06-05-2023 End: 06-05-2023 ambulatory VETO KIP Not Available Start: 06-02-2023 Patient encounter status MD Cristi Vega Work Phone: [facility] Start: 05-12-2023 Telephone encounter Gurpreet malin DO, PhD Work Phone: [facility] Comment on above: Appointment (Abdiaziz sheth) Start: 03-23-2023 End: 03-23-2023 ambulatory Lissett Vega Other [employer] Other Start: 03-23-2023 Telephone encounter Lissett Gary [facility] Start: 03-16-2023 End: 03-16-2023 ambulatory Lissett Vega Other [employer] Other Start: 03-16-2023 Office outpatient vi sit 15 minutes Lissett Gary [facility] Start: 03-08-2023 End: 03-09-2023 ambulatory Debbie R NILL Facility:[id number] Start: 02-17-2023 End: 02-18-2023 ambulatory Debbie R NILL Facility:[facility] Start: 02-17-2023 End: 02-17-2023 Patient encounter procedure Debbie R NILL General Surgery Nill/Said Jayjay Start: 02-07-2023 Telephone encounter Johann Henriquez RN [facility] [place] Start: 02-06-2023 Telephone encounter Johann Henriquez RN [facility] [place] Comment on above: Gamma Knife Follow-u p Start: 01-27-2023 End: 01-27-2023 Orders Only Guprreet Beckwith DO, PhD Work Phone: Neurosurgery Comment on above: Benign neoplasm of m eninges (HCC) (Primary Dx) Benign neoplasm of m eninges (HCC) [D32.9] Start: 01-27-2023 Patient encounter procedure Burak Prakash MD Work Phone: [facility] Start: 01-27-2023 Radiation Oncology Note Susi Prakash MD Work Phone: [facility] Comment on above: Procedure Treatment Planning Start: 01-24-2023 ambulatory Debbie NILL Facility:[facility] Start: 01-23-2023 End: 01-23-2023 ambulatory Lissett Vega Other [employer] Other Start: 01-23-2023 Telephone encounter Lissett Gary [facility] Start: 12-22-2022 End: 12-22-2022 ambulatory DAINViri ECHEVERRIA Facility:[facility] Start: 11-15-2022 Telephone encounter Betzy liao RN Work Phone: [facility] Comment on above: [employer] - O ther (Schedule gamma knife 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/) Start: 11-04-2022 End: 11-04-2022 ambulatory Gurpreet Beckwith DO, PhD Work Phone: [facility] Comment on above: Benign neoplasm of m eninges (HCC) (Primary Dx) Start: 11-04-2022 End: 11-04-2022 Telemedicine consultation with patient Gurpreet Beckwith DO, PhD Work Phone: [facility] Start: 10-31-2022 End: 10-31-2022 ambulatory Lissett Vega Other [employer] Other Start: 10-31-2022 Telephone encounter Lissett Vega [facility] Start: 10-19-2022 End: 10-19-2022 ambulatory Luis Licona MD Work Phone: Radiation Oncology Comment on above: Meningioma (HCC) (Pr imary Dx) Start: 10-19-2022 End: 10-19-2022 Telemedicine consultation with patient Luis Licona MD Work Phone: [facility] Start: 10-18-2022 End: 10-18-2022 ambulatory Trista Bonilla APRN.LAMINA SEARCHER Work Phone: Radiation Oncology Comment on above: Meningioma (HCC) (Pr imary Dx) Start: 10-18-2022 End: 10-18-2022 Telemedicine consultation with patient Trista Bonilla APRN.LAMINA SEARCHER Work Phone: [facility] Start: 10-17-2022 End: 10-17-2022 ambulatory TRISTA BONILLA Facility:[facility] Start: 10-17-2022 End: 10-17-2022 Subsequent hospital visit by physician Mri [facility] (Lg Bore/1.5t) Radiology MRI Comment on above: Benign neoplasm of m eninges (HCC) [D32.9] Start: 09-23-2022 End: 09-23-2022 ambulatory Lissett Vega Other [employer] Other Start: 09-23-2022 Telephone encounter Lissett Gary [facility] Start: 09-21-2022 End: 09-21-2022 ambulatory Lissett Vega Other [employer] Other Start: 09-21-2022 Encounter for other preprocedural examination Lissett Vega [facility] Start: 09-21-2022 Office outpatient vi sit 25 minutes Lissett Vega [facility] Start: 09-12-2022 End: 09-12-2022 ambulatory Lissett Vega Facility:[facility] Start: 08-31-2022 Telephone encounter Luis osborn MD Work Phone: Radiation Oncology Comment on above: [employer] S[employer] - O ther Start: 06-21-2022 End: 06-21-2022 ambulatory Debbie Echeverria MD Work Phone: Hematology/Oncology Comment on above: Malignant melanoma o f torso excluding breast (HCC) (Primary Dx) Start: 06-21-2022 End: 06-21-2022 Patient encounter procedure Debbie Echeverria MD Work Phone: [facility] Start: 03-16-2022 End: 03-16-[address] LISSETT VEGA Facility: Start: 02-28-2022 End: 02-28-2022 ambulatory Trista Bonilla APRN.LAMINA SEARCHER Work Phone: Radiation Oncology Comment on above: Benign neoplasm of m eninges (HCC) (Primary Dx) Start: 02-28-2022 End: 02-28-2022 Telemedicine consultation with patient Trista Bonilla APRN.LAMINA SEARCHER Work Phone: [facility] Start: 02-23-2022 End: 02-23-2022 Subsequent hospital visit by physician Mri [facility] (Lg Bore/1.5t) Radiology MRI Comment on above: Benign neoplasm of m eninges (HCC) [D32.9] Start: 12-21-2021 End: 12-21-2021 ambulatory Debbie Echeverria MD Work Phone: Hematology/Oncology Comment on above: Malignant melanoma o f torso excluding breast (HCC) (Primary Dx) Start: 12-21-2021 End: 12-21-2021 Patient encounter procedure Debbie Echeverria MD Work Phone: [facility] Start: 12-15-2021 End: 12-15-[address] LISSETT VEGA Facility:[facility] Start: 12-11-2021 Gynecological examin ation normal Lissett Vega Other [employer] Other Start: 12-01-2021 Telephone encounter Debbie Echeverria MD Work Phone: Hematology/Oncology Comment on above: [employer] - [employer] ther Start: 11-18-2021 End: 11-19-2021 [...] with patient Luis Licona MD Work Phone: [facility] Start: 08-23-2021 End: 08-23-2021 Subsequent hospital visit by physician Mri [facility] (Lg Bore/1.5t) Radiology MRI Comment on above: Benign neoplasm of m eninges (HCC) [D32.9] Start: 06-16-2021 End: 06-16-2021 Subsequent hospital visit by physician Mri [facility] (Lg Bore/1.5t) Radiology MRI Comment on above: Malignant 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] Start: 06-01-2021 End: 06-01-2021 Subsequent hospital visit by physician Mri [facility] (Lg Bore/1.5t) Radiology MRI Comment on above: [...] 10:30 AM EDT Visit (SP) Office Hematology/Oncology [address] [place] [address] Debbie Echeverria MD [address] [place] [address] FOLLOW UP Hematology/Oncology Comment on above: FOLLOW UP Start: 12-03-2023 Influenza vaccination Influenz a Vaccine (Season Ended) [facility] Start: 09-12-2023 End: 09-12-2023 Patient encounter procedure 09/12/2023 11:45 AM EDT Office Visit Neurosurgery [address] [place] [address] Abdiaziz Bunch APRN.LAMINA SEARCHER [address] [place] [address] gamma knife follow up Neurosurgery Comment on above: gamma knife follow u p Start: 09-12-2023 End: 09-12-2023 Patient encounter procedure 09/12/2023 10:40 AM EDT Appointment Radiology MRI [address] [place] [address] 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] Radiology MRI Comment on above: Benign neoplasm of m eninges (HCC) [D32.9] Start: 04-03-2023 Behavioral Health Screening Behavioral Health Screening [facility] Start: 04-03-2023 Depression Assessment Depression Ass essment [facility] Start: 12-21-2022 Adult depression screening assessment DEPRESSION SCREENING [facility] Start: 12-02-2022 Covid-19 Vaccine ( season) Covid-19 Vaccine ( season) [facility] Start: 12-02-2022 Covid-19 Vaccine ( season) Covid-19 Vaccine () [facility] Start: 12-02-2022 Influenza vaccination [facility] Start: 08-29-2022 End: 03-31-2023 Mri brain brain stem w/o w/contrast material MRI BRAIN WO/W IVCON Radiology Routine Benign neoplasm of meninges (HCC) Expected: 08/29/2022, Expires: 03/31/2023 [facility] Work Phone: Comment on above: Expected: 08/29/2022 , Expires: 03/31/2023 Start: 08-22-2022 Adult depression screening assessment DEPRESSION SCREENING [facility] Start: 04-03-2022 DEPRESSION ASSESSMENT DEPRESSION ASS [facility] Start: 01-24-2022 DIABETES SCREEN DIABETES SCREEN [facility] Start: 01-24-2022 Diabetes Screening Diabetes Screenin g [facility] Start: 12-02-2021 Influenza vaccination [facility] Start: 04-03-2021 DEPRESSION ASSESSMENT DEPRESSION ASS [facility] Start: 07-12-2020 COLOGUARD (FIT-DNA) COLOGUARD (FIT-D NA) [facility] Start: 07-12-2020 Colonoscopy COLONOSCOPY [facility] Start: 07-12-2020 COLORECTAL CANCER SCREENING COLORECTAL CANCER SCREENING [facility] Start: 07-12-[address] COLONOGRAPHY [facility] Start: 07-12-2020 FECAL OCCULT BLOOD FECAL OCCULT BLOO D [facility] Start: 07-12-2020 Lipid 1996 panel - Serum or Plasma Lipid Screening [facility] Start: 07-12-2020 Lipid panel Lipid Screening [facility] Start: 07-12-2020 LIPID SCREEN LIPID SCREEN [facility] Start: 07-12-2020 Screening for malign ant neoplasm of colon [facility] Start: 07-12-2020 SIGMOIDOSCOPY SIGMOIDOSCOPY [facility] Start: 2015 Mammography [facility] Start: 2015 Screening for malign ant neoplasm of breast Mammogram Screening [facility] Start: 07-12-2005 HPV TESTING HPV TESTING [facility] Start: 07-12-2005 Screening for malign ant neoplasm of cervix HPV Testing [facility] Start: 07-12-1996 PAP TESTING PAP TESTING [facility] Start: 07-12-1996 Screening for malign ant neoplasm of cervix [facility] Start: 07-12-1994 Hepatitis B Vaccine (1 of 3 - 19+ 3-dose series) Hepatitis B Vaccine (1 of 3 - 19+ 3-dose series) [facility] Start: 07-12-1994 Urine microalbumin profile [facility] Start: 07-12-1993 HEPATITIS C SCREENING HEPATITIS C [facility] Start: 07-12-1993 Hepatitis C screening [facility] Start: 07-12-1993 HIV SCREENING HIV SCREENING [facility] Start: 07-12-1993 HIV screening HIV Screening [facility] Start: 07-12-1981 PNEUMOCOCCAL (1 - PCV) PNEUMOCOCCAL (1 - PCV) [facility] Start: 07-12-1980 COVID-19 VACCINE (#1) COVID-19 VACCI NE (#1) [facility] Start: 01-12-1976 COVID-19 VACCINE (#1) COVID-19 VACCI NE (#1) [facility] Start: 1975 HEPATITIS B (1 of 3 - 3-dose series) HEPATITIS B (1 of 3 - 3-dose series) [facility] Start: 1975 Hepatitis B Vaccine (1 of 3 - 3-dose series) Hepatitis B Vaccine (1 of 3 - 3-dose series) [facility] End: 10-11-2024 MR Brain WO and W contrast IV MRI BRAIN WO/W IVCON Radiology Routine Benign neoplasm of meninges (HCC) 1 Occurrences starting 09/12/2023 until 10/11/2024 [facility] Work Phone: Comment on above: 1 Occurrences starti ng 09/12/2023 until 10/11/2024 End: 09-22-2022 Mri brain brain stem w/o w/contrast material MRI BRAIN WO/W IVCON Radiology Routine Benign neoplasm of meninges (HCC) 1 Occurrences starting 08/23/2021 until 09/22/2022 [facility] Work Phone: Comment on above: 1 Occurrences starti ng 08/23/2021 until 09/22/2022 [facility] Immunizations Immunization Date Immunization Notes Care Provider Fa ericty 06-05-2020 SARS-CoV-2 (COVID-19 ) mRNA BNT-162b2 vax Debbie NILL [facility]jay 05-15-2020 SARS-CoV-2 (COVID-19 ) mRNA BNT-162b2 vax Debbie NILL [facility] NEGATED: Highlighted row has not occurred!02-17-2023 influenza virus vaccine, unspecified formulation Debbie NILL [facility] Payers Date Payer Category Payer Self-pay 2018 Unknown MMO MMO [employer] [id number] 2018-Present [phone] [address] [place] [address] PPO [id number] 2018 Unknown [id number] 1975 Unknown [id number] 1975 Unknown [id number] 1975 Unknown [id number] 1975 Unknown [id number] 1975 Unknown [id number] 1975 Unknown [id number] 1975 Unknown [id number] 1975 Unknown [id number] 1959 Self-pay [id number] 1959 Unknown [id number] Unknown [id number] Unknown [id number] Unknown [id number] Social History Date Type Detail Facility Start: 11-19-2018 End: 02-17-2023 Tobacco smoking status NHIS Ex-smoker [facility] End: 08-02-2018 History of tobacco use Current smoker [facility] End: 08-02-2018 History of tobacco use Cigarette Smoker [facility] Start: 11-19-2018 Tobacco use and exposure Smokeless tobacco non-user [facility] Start: 06-21-2021 End: 12-22-2022 Alcohol intake Current drinker of alcohol (finding) [facility] Start: 11-19-2018 History SDOH Alcohol Comment occasionally [facility] Start: 1975 Sex Assigned At Not on file [facility] Start: 12-11-2021 End: 12-21-2021 Exposure to SARS-CoV-2 (event) Not sure [facility] Start: 06-21-2022 End: 10-18-2022 Sex Assigned At [facility] Start: 06-21-2022 End: 10-18-2022 History of Social function [facility] Adult Depression Screening Assessment 0 [facility] Start: 01-20-2020 Gender identity Identifies as female gender (finding) [facility] Start: 05-02-2021 End: 06-11-2021 Exposure to SARS-CoV-2 (event) Unable to assess [facility] Start: 1975 Sex Assigned At Female F [facility] Functional Status Date Assessment Result Facility 02-17-2023 Functional Status N/A General Phan cece Ro Clinical Notes 03-01-2022 to 09-12-2023 Abdiaziz Bunch APRN.LAMINA SEARCHER - 09/12/2023 11:18 AM Nidia Monge RN - 09/12/2023 10:40 AM Cherrie Min, RT(R) - 09/12/2023 10:40 AM Cherrie Trinh RN - 06/13/2023 9:33 AM EDT Note Date & Type Note Facility 09-12-2023 Note HNO ID: [id number] Author: ABDIAZIZ BUNCH APRN.LAMINA SEARCHER Service: ? Author Type: Nurse Practitioner Type: Progress Notes Filed: 09/12/2023 13:21 Note Text: [facility] BRAIN TUMOR CENTER NEURO-ONCOLOGY OUTPATIENT CLINIC NOTE [...] DATE OF EXAM: Sep 12 2023 11:35AM [facility] 0295 - MRI BRAIN WO/W IVCON / PROCEDURE REASON: Benign neoplasm of meninges (HCC) * * * * Physician Interpretation * * * * EXAMINATION: MRI BRAIN WO/W IVCON CLINICAL HISTORY: Meningioma TECHNIQUE: Routine brain MRI protocol without and with cont (more content not included)... [facility] 09-12-2023 History of Presen t illness Narrative Images from the original note were not included. [facility] [place] BRAIN TUMOR CENTER NEURO-ONCOLOGY OUTPATIENT CLINIC NOTE [...] DATE OF EXAM: Sep 12 2023 11:35AM [facility] 0295 - MRI BRAIN WO/W IVCON [...] left frontal convexity without substantial mass effect. Commercial Representative: TORI Transcribe Date/Time: Sep 12 2023 11:55A [...] PHD - Epic documented in this encounter [facility] 09-12-2023 History of Presen t illness [...] PATIENT PRESENTS WITH AN IMPLANTABLE OR ATTACHED POCKET OPERATOR: No RADIOLOGY DEPARTMENT: MR; Exam(s) Completed: Head: Routine Brain PERIPHERAL IV DATA: Site assessment: Clean,Dry and Intact, Site disposition Discontinued SIGNED BY: JADA Gloria) September 12, 2023 11:12 AM documented in this encounter [facility] 09-12-2023 Note HNO ID: [id number] Author: CHERRIE MCBRIDE RT(R) Service: ? Author [...] PATIENT PRESENTS WITH AN IMPLANTABLE OR ATTACHED POCKET OPERATOR: No RADIOLOGY DEPARTMENT: MR; Exam(s) Completed: Head: Routine Brain PERIPHERAL IV DATA: Site assessment: Clean,Dry and Intact, Site disposition Discontinued SIGNED BY: JADA Gloria) September 12, 2023 11:[address] [facility] 09-12-2023 Note HNO ID: [id number] Author: NIDIA MORELOS RN Service: Nursing Author [...] DATE: September 12, 2023 TIME: 10:[address] [facility] 09-08-2023 Telephone encounter Note Patient called in requesting ativan for her MRI. Chart review indicates patient has been prescribed 1mg of ativan prior to past MRI's and has tolerated it well. Orders pended to provider for review. Johann Henriquez RN Glost Tile Sorter [facility] 09-08-2023 Miscellaneous Notes Patient called in requesting ativan for her MRI. Chart review indicates patient has been prescribed 1mg of ativan prior to past MRI's and has tolerated it well. Orders pended to provider for review. Johann Henriquez RN [employer] Sorter documented in this encounter [facility] 06-13-2023 Nurse Note Additional intake questions: [...] [facility] documented in this encounter [facility] 06-13-2023 History of Presen t illness [...] no new issues and last visit with director of estate was about 6 months ago. She denies [...] Lymph 1.00 - 4.00 k/uL 2.12 Abs [place] <0.87 k/uL 0.72 Abs Eosin <0.46 k/uL [...] 6 months - recommend follow up with director of estate Patient seen and discussed with Gastroenterology Oncology [...] with more than 50% of the total aemt-[id number]-ypzr time of the visit in counseling / coordination of care. eDbbie Echeverria MD documented in this encounter [facility] 06-13-2023 Note HNO ID: [id number] Author: DEBBIE ECHEVERRIA MD Service: ? Author [...] no new issues and last visit with director of estate was about 6 months ago. She denies [...] Lymph 1.00 - 4.00 k/uL 2.12 Abs [place] <0.87 k/uL 0.72 Abs Eosin <0.46 k/uL [...] 6 months - recommend follow up with director of estate Patient seen and discussed with Gastroenterology Oncology [...] with more than 50% of the total jgxg-uv-mcrk time of the visit in counseling / coordination of care. (more content not included)... [facility] 05-12-2023 Miscellaneous Notes Per Johann (RN)-via email: This patient had GK in January and their follow up MRI and appointment was never scheduled. She needs an MRI at [facility] and follow up same day with Abdiaziz bunch. Schedule this for September please. Appointments scheduled. Mychart and letter sent. Marli Patino documented in this encounter [facility] 03-16-2023 Evaluation note Encounter Date Diagnosis Assessment Notes Mar, LLQ abdominal pain (ICD-10 - R10.32) Discussed differential - kidney stone, diverticulosis (recent normal colonoscopy), ovarian issue or constipation (no BM x 2 days) due to hematuria on UA - recommend CT without contrast to r/o stone. Mar, Microscopic hematuria (ICD-10 - R31.29) [employer] [facility] 12-14-2023 Evaluation note* Encounter Date Diagnosis [...] She would like to continue this treatment. [employer] [facility] 11-17-2023 NoteChief Complaint consultation for screening [...] Debbie He\Date and Time Signed: 02/17/23 15:11 [id number] Miscellaneous Notes* Telephone Encounter - Johann Henriquez [...] symptoms or concerns arise. documented [facility] Miscellaneous Notes* Telephone Encounter - Johann Henriquez RN - 02/07/2023 1:13 PM EST 2nd attempt to reach out, patient unavailable. Will send [employer] message with contact information to call if she is experiencing any symptoms or has any concerns since gamma knife treatment. * Telephone Encounter - Johann Henriquez RN - 02/06/2023 1:17 PM EST Calling Ben for post-GKRS follow-up. Unable to reach at this time. Left voicemail. documented in this encounterOhio[facility]11-01-2023 NoteHNO ID: [id number] Author: Burak Prakash MD Service: Radiation Oncology Author Type: Physician Type: Progress Notes Filed: 02/03/2023 12:33 AM Note Text: BEN CRUZ [id number] 02/01/2023 [facility] / Department of Radiation [...] :57 AM Electronically Signed cc: Dr. Gurpreet BeckwithDor[facility]2023 NoteHNO ID: [id number] Author: Burak Prakash MD Service: Radiation Oncology Author Type: Physician Type: Progress Notes Filed: 02/01/2023 12:33 AM Note Text: BEN CRUZ [id number] 01/27/2023 [facility] [place] [...] patient setup, I conferred with the biomedical photographer to approve the final setup. I was [...] :10 [facility]10-27-2023 NoteHNO ID: [id number] Author: Burak Prakash MD Service: Radiation Oncology Author Type: Physician Type: Progress Notes Filed: 02/02/2023 12:32 AM Note Text: BEN CRUZ [id number] 01/27/2023 [facility] Cindi Diez Brain Tumor AND [...] :18 [facility]10-27-2023 NoteHNO ID: [id number] Author: Burak Prakash MD Service: Radiation Oncology Author Type: Physician Type: Progress Notes Filed: 02/01/2023 12:33 AM Note Text: BEN CRUZ [id number] 01/27/2023 [facility] Department of Radiation Oncology [place] [...] DVH. Electronically Signed Burak Prakash M.D. / [facility] 31:29 [facility]10-27-2023 NoteHNO ID: [id number] Author: Gurpreet Beckwith DO, PhD Service: ? Author Type: Physician Type: Progress Notes Filed: 01/27/2023 1:49 PM Note Text: [facility] BRAIN TUMOR [facility]URO-ONCOLOGY C[facility] [address] [place] [address] [place] OPERATIVE REPORT NAME: Ben Cruz NO.: [id number] MASK SIMULATION DATE: 2023-01-27 RADIATION TREATMENT START [...] of Fractions: 1 After the usual quality assurance project manager procedures were performed, fractionated 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 was delivered with use of the Gamma Knife. The Gamma Knife checklist and time outs were performed during this procedure. Gurpreet Beckwith DO, PhDMer[facility]10-[facility]-2023 History of Present illness Narrative* Gurpreet Beckwith DO, PhD - 01/27/2023 1:49 PM EDT [facility]IN [facility]UM[facility] [address] [place] [address] [place] OPERATIVE REPORT NAME: Ben Cruz [facility] NO.: [id number] MASK SIMULATION DATE: 2023-01-27 RADIATION TREATMENT START [...] of Fractions: 1 After the usual quality assurance project manager procedures were performed, fractionated 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 was delivered with use of the Gamma Knife. The Gamma Knife checklist and time outs were performed during this procedure. Gurpreet Beckwith DO, PhD documented in this encounterOhiohealth [facility]10-27-2023 NoteHNO ID: [id number] Author: Gurpreet Beckwith DO, PhD Service: ? Author Type: Physician Type: Progress Notes Filed: 01/27/2023 11:22 AM Note Text: [facility]IN [facility]UM[facility] [address] [place] [address] [place] OPERATIVE REPORT NAME: Ben Cruz [facility] NO.: [id number] MASK SIMULATION DATE: 2023-01-27 RADIATION TREATMENT START [...] of Fractions: 1 After the usual quality assurance project manager procedures were performed, fractionated 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 was delivered with use of the Gamma Knife. The Gamma Knife checklist and time outs were performed during this procedure. Gurpreet Beckwith DO, PhDMercy Health [facility]10-27-2023 History of Present illness Narrative* Gurpreet Beckwith DO, PhD - 01/27/2023 11:21 AM EDT [facility]UM[facility] [address] [place] [address] [place] OPERATIVE REPORT NAME: Ben Cruz [facility] NO.: [id number] MASK SIMULATION DATE: 2023-01-27 RADIATION TREATMENT START [...] of Fractions: 1 After the usual quality assurance project manager procedures were performed, fractionated 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 was delivered with use of the Gamma Knife. The Gamma Knife checklist and time outs were performed during this procedure. Gurpreet Beckwith DO, PhD documented in this encounterOhio[facility]10-27-2023 History of Present illness Narrative* Zee [...] 27, 2023 8:06 AM documented in this encounterOhiohealth [facility] Hospital10-27-2023 NoteHNO ID: [id number] Author: Zee Padilla Tech Service: Radiology Author Type: Environmental Test Technician Type: Progress Notes Filed: 01/27/2023 8:06 AM [...] [facility]-27-2023 NoteHNO ID: [id number] Author: Gurpreet Beckwith DO, PhD Service: ? [...] 60 (more content not included)...[facility]10-27-2023 History of Present illness Narrative* Gurpreet [...] 123 U/L 60 Final Pathology: Specimen #: [id number]* Submitting Physician: DEBBIE ECHEVERRIA MD FINAL DIAGNOSIS [...] FRONTAL LOBE, UNCHANGED GOING BACK TO 06/01/2021 Commercial Representative: [facility] Transcribe Date/Time: Jan 27 2023 8:08A [...] cc: Ben Echeverria- muna documented in this encounterOhiohealth [facility]10-27-2023 Instructions* Patient Instructions* Gayle Acevedo RN - 01/27/2023 7:45 AM EDT [facility] Gamma Knife Center Discharge Instructions As [...] a physician or hospital other than the [facility] with any problem related to [...] may your physician, Dr. Virgil Beckwith at [phone] Monday through Monday 8:00 am to 5:00 pm, or call the Gamma Knife nurse Monday through Monday 8:00 am to 4:00 pm at [phone]. In the evening or on weekends, call [phone] or toll-free [phone] and ask the legger press operator to page your neurosurgeon's resident precision assembly inspector. documented in this encounterOhiohealth [facility] Hospital10-27-2023 History of Present illness Narrative* Anton [...] 27, 2023 7:59 AM documented in this encounterOhiohealth [facility] Hospital10-27-2023 NoteHNO ID: [id number] Author: Anton Terrell RN Service: Nursing Author [...] [facility]10-27-2023 NoteHNO ID: [id number] Author: Mariela Burk RT(R) Service: Radiology Author [...] 7:59 [facility]10-27-2023 NoteHNO ID: [id number] Author: Gayle Acevedo RN Service: ? Author [...] Dr. Aria Beckwith DO, Gayle Acevedo RN 0765 Mask SIM completed. Ben Cruz returned to department for treatment # 1 of 1. Is patient receiving immunotherapy infusions: Not Applicable. Patient's Age: 47 Menstruation Status: [place]ste[place] [facility] [place] Results: N/A test not performed QC: Yes, testing is valid (or protocol followed for invalid testing). Reference range: Normal Value = Negative for hCG. POC performed by: Gayle Acevedo RN 0994 4 mg Decadron PO given prior to GKRS per order of Dr. Virgil Beckwith 0989 GKRS start time. 1016 GKRS end time. 1025 Discharge instructions given to patient; instructions reviewed by this RN; patient/family verbalized understanding; patient discharged via/with Gayle Acevedo [facility]NM[facility]10-27-[facility]23 History of Present illness Narrative* Gayle [...] Patient's Age: 47 Menstruation Status: [place]ste[place] [facility] [place] Results: N/A test not performed QC: [...] via/with Gayle Acevedo RN documented in this encounterOhiohealth Doctors Hospital10-27-2023 History of Present illness Narrative* Burak Prakash MD - 01/27/2023 12:00 AM EDT BEN CRUZ [id number] 01/27/2023 [facility] Cindi Diez Brain Tumor and [...] to patientsetup, I conferred with the biomedical photographer to approve the final setup. I was [...] Prakash M.D. 31:10 PM documented in this encounterOhiohealth Doctors Hospital10-27-2023 History of Present illness Narrative* Burak Prakash MD - 01/27/2023 12:00 AM EDT BEN CRUZ [id number] 01/27/2023 [facility] Department of Radiation Oncology [place] [...] DVH. Electronically Signed Burak Prakash M.D. / [facility] 31:29 PM documented in this encounterOhiohealth Doctors Hospital09-21-2023 NoteHNO ID: [id number] Author: Debbie Echeverria MD Service: ? Author Type: Physician Type: Progress Notes Filed: 12/23/2022 9:46 AM Note Text: December 22, 2022 DXN: Resected T4aN0 desmoplastic melanoma. The lesion was about 4.5mm located on her back with 2 negative SLNs (left axilla). There was no reported neurtropism and only one mitotic figure. Margins were negative. Declined an adjuvant trial in [place]. Baseline imaging today is negative CC: Melanoma [...] beckwith components of the Resident. Debbie Echeverria, [facility]08-15-2023 Miscellaneous Notes* Telephone Encounter - Betzy Heard RN - 11/15/2022 1:57 PM EDT Calling Ben to follow up on [employer] message about scheduling gamma knife for 01/27/2023 No answer, left message stating that I'll go ahead and place the GK orders. Reminded to disregard ANY appointment times she sees in [employer], any automated text reminders or automated phone calls for 01/27/23 She will receive a call from the GK nurse or radiation therapist the day before with her arrival time. If she has any questions, I left office phone # for call back or she can send a [employer] message. I will send out a GK folder with additional information related to [facility]iosurgery Betzy Heard RN, BSN [employer] T[employer] S[employer] Cindi Diez [facility] documented in this encounterOhiohealth Doctors Hospital08-04-2023 History of Present illness Narrative* Gurpreet Beckwith DO, PhD - 11/04/2022 1:00 PM EDT Images from the original note were not included. [facility] New Patient Virtual Consultation Referred by Dr. Luis Licona We had a virtual visit conducted via [employer] visit. I received consent from the patient to perform the visit using this platform. I have communicated my name and active licensure. The patient's identity and physical location wereverified at the time of this visit. Either the patient or their legal entry level sales representative has been informed of the [...] 123 U/L 60 Final Pathology: Specimen #: [id number]* Submitting Physician: DEBBIE ECHEVERRIA MD FINAL DIAGNOSIS Skin, left upper midline back, shave biopsy - Desmoplastic melanoma, see synoptic report. SDB/rw 11/09/2018 Imaging: MRI Report MRI BRAIN WO/W IVCON Exam End: 10/17/2022 11:20 AM (Final result) Narrative: * * *Final Report* * * DATE OF EXAM: Oct 17 2022 11:20AM [facility] 0295 - MRI BRAIN WO/W IVCON [...] with air-fluid level suggestive of acute/active sinusitis. Commercial Representative: TORI Transcribe Date/Time: Oct 17 2022 11:35A [...] which included preparing to see the patient, tmoz-ft-nmzi patient care, completing clinical documentation, obtaining and/or reviewing separately obtained history, performing a medically appropriate examination, counseling and educating the pat ient/family/caregiver, ordering medications, tests, or procedures, communicating with other HCPs (not separately reported), independently interpreting results (not separately reported), communicatingresults to the patient/family/caregiver, and care coordination (not separately reported). Gurpreet Beckwith DO, PhD cc: Ben toro documented in this encounterOhiohealth Doctors Hospital08-04-2023 NoteHNO ID: [id number] Author: Gurpreet Beckwith DO, PhD Service: ? Author Type: Physician Type: Progress Notes Filed: 11/04/2022 1:27 PM Note Text: [facility] New Patient Virtual Consultation Referred by Dr. Luis Licona We had a virtual visit conducted via [employer] virtual visit. I received consent from the patient to perform the visit using this platform. I have communicated my name and active licensure. The patient's identity and physical location were verified at the time of this visit. Either the patient or their legal entry level sales representative has been informed of the [...] S19-11 (more content not included)...[facility] 10-31-2022 Evaluation note* Encounter Date Diagnosis Assessment Notes Treatment Notes Treatment Clinical Notes Oct, Screen for colon cancer (ICD-10 - Z12.11) [employer] Other 07-19-2023 History of Present illness Narrative* [...] cc: Debbie Echeverria [address] [place] [facility] [address] documented in this encounterOhiohealth Doctors Hospital07-19-2023 NoteHNO ID: [id number] Author: Luis Licona MD Service: ? Author [...] (more content not included)... [facility]07-18-2023 History of Present illness Narrative* Trista Bonilla APRN.SHERITA - 10/18/2022 10:30 AM EDT Elements of this note, including HPI, ROS, Physical Exam, Assessment and Plan were copied and pasted from 02/28/22 encounter with me. Updates have been made where noted and reflect current exam and medical decision making from October 18, 2022. Trista Bonilla APRN.SHERITA. [facility] DISTANCE HEALTH VISIT This visit is a Virtual MyChart video visit encounter which required patient- provider interaction for the medical decision making as documented below. Persons Present: patient Ben Cruz has consented to this distance health encounter. Total Time Spent: more than 20 minutes wrat-qo-htqw with the patient and over half the [...] DATE OF EXAM: Oct 17 2022 11:20AM [facility] Jalen5 - MRI BRAIN WO/W IVCON / [...] with air-fluid level suggestive of acute/active sinusitis. Commercial Representative: TORI Transcribe Date/Time: Oct 17 2022 11:35A [...] Cc: Dr. Luis Echeverria documented in this encounterOhiohealth Doctors Hospital07-18-2023 NoteHNO ID: [id number] Author: Trista Bonilla APRN.CNP Service: ? Author [...] Total Time Spent: more than 20 minutes ngzj-oy-aqwr with the patient and over half the [...] DATE OF EXAM: Oct 17 2022 11:20AM [facility] 0295 - MRI BRAIN WO/W IVCON [...] with air-fluid level suggestive of acute/active sinusitis. Commercial Representative: [facility] Transcribe Date/Time: Oct 17 2022 11:35A [...] purp (more content not included)...[facility]07-17-2023 History of Present illness Narrative* Nidia [...] 17, 2022 10:53 AM documented in this encounterOhiohealth Doctors Hospital07-17-2023 NoteHNO ID: [id number] Author: Nidia Morelos RN Service: Nursing Author [...] [facility]07-17-2023 NoteHNO ID: [id number] Author: MANISH Hubbard Tech Service: Radiology Author Type: Environmental Test Technician Type: Progress Notes Filed: 10/17/2022 10:54 AM [...] MANISH Hubbard Tech October 17, 2022 10:53 [facility]06-21-2023 Evaluation note* Encounter Date Diagnosis [...] the berberine and get back to patient. [employer] Other 05-31-2023 Miscellaneous Notes* Telephone Encounter - [...] 09/05. Prescription should be sent to the [facility] in [facility]. [facility] [phone] [place] [address] documented in this encounterOhiohealth Doctors Hospital03-21-2023 History of Present illness Narrative* Debbie Echeverria MD - 06/21/2022 11:08 AM EDT June 21, 2022 DXN: Resected T4aN0 desmoplastic melanoma. The lesion was about 4.5mm located on her back with 2 negative SLNs (left axilla). There was no reported neurtropism and only one mitotic figure. Margins were negative. Declined an adjuvant trial in [place]. Baseline imaging today is negative CC: Melanoma [...] with more than 50% of the total aacx-oh-hrqj time of the visit in counseling / coordination of care. Debbie Echeverria MD documented in this encounterOhiohealth Doctors Hospital03-21-2023 Nurse Note* Vanessa Giang LPN - 06/21/2022 10:29 AM EDT Additional intake questions: Has the patient had fever, nausea, vomiting, diarrhea, constipation, fatigue for > 1 week? Yes, fatigue and Provider Notified Does the patient have a decreased appetite? No Does patient want to see a Radar Air Traffic Controller? No (yes to any of above refer patient to schedulers for dietitian appointment) ) Does patient have any new or increased numbness or tingling of extremities? No Is patient interested in fertility information? NA Does patient need any prescription refills? No Does patient have an advanced directive in place? No, Patient refused referral to Social Work or Resource Center documented in this encounterOhiohealth Doctors Hospital11-28-2022 History of Present illness Narrative* Trista Bonilla APRN.SHERITA - 02/28/2022 10:30 AM EST [facility] This visit is a Virtual MyChart video visit encounter which required patient- provider interaction for the medical decision making as documented below. Persons Present: patient Ben Cruz has consented to this distance health encounter. 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 She denies focal weakness, dizziness, gait [...] unremarkable MRI brain with and without contrast. Commercial Representative: [facility] Transcribe Date/Time: Feb 23 2022 11:50A [...] She will continue to get MRI at [facility] and present in VV follow up. Trista Bonilla APRN.CNP Cc: Dr. Luis Echeverria documented in this encounterOhiohealth Doctors Hospital11-23-2022 History of Present illness Narrative* Nidia [...] 23, 2022 10:57 AM documented in this encounterOhiohealth Doctors Hospital09-20-2022 History of Present illness Narrative* Debbie Echeverria MD - 12/21/2021 1:37 PM EDT December 21, 2021 DXN: Resected T4aN0 desmoplastic melanoma. The lesion was about 4.5mm located on her back with 2 negative SLNs (left axilla). There was no reported neurtropism and only one mitotic figure. Margins were negative. Declined an adjuvant trial in [place]. Baseline imaging today is negative CC: Melanoma [...] with more than 50% of the total rqrj-rm-hfju time of the visit in counseling / coordination of care. Debbie Echeverria MD documented in this encounterOhiohealth Doctors Hospital09-20-2022 Nurse Note* Tiny Mckoy LPN - 12/21/2021 1:20 PM EDT Additional intake questions: Has the patient had fever, nausea, vomiting, diarrhea, constipation, fatigue for > 1 week? Yes, fatigue Does the patient have a decreased appetite? No Does patient want to see a Radar Air Traffic Controller? No (yes to any of above refer patient to schedulers for dietitian appointment) ) Does patient have any new or increased numbness or tingling of extremities? No Is patient interested in fertility information? No Does patient need any prescription refills? No Does patient have an advanced directive in place? No, Patient refused referral to Social Work or Resource Center documented in this encounterOhiohealth Doctors Hospital09-02-2022 Miscellaneous Notes* Telephone Encounter - Jaylene Jacobson RN - 12/03/2021 12:49 PM EDT Patient needs a follow up visit (no labs or scans) around 12/25/21. She accepted a visit on 12/21 at 1:30 pm. Jaylene Jacobson RN * Telephone Encounter - Mary Lindsay - 12/01/2021 4:45 PM EDT Ben Cruz is calling Debbie Echeverria MD today regarding Gl[employer] Tile Sorter - Other Patient called scheduling to schedule 6 mo follow up but was unable to get thru, so calling office for Dr. Echeverria to get it scheduled. Can she be called once appointment is made? Patient has been identified by name and birthdate. Requesting response back: [phone] (home) [phone] (cell) Mary ClaudiaTomasa December 01, 2021 documented in this encounterOhiohealth Doctors Hospital05-23-2022 History of Present illness Narrative* Luis [...] an updated MRI in 6 months in [place] followed by a virtual visit for further meningioma surveillance, with additional surveillance plan to be developed thereafter. Zhanna Le MD Radiation Oncology Resident [id number] STAFF ADDENDUM I saw and evaluated the [...] brain. Luis Licona MD cc: Debbie Echeverria [address] [facility] [address] documented in this encounterOhiohealth Doctors Hospital05-23-2022 History of Present illness Narrative* Nidia [...] 23, 2021 12:14 PM documented in this encounterOhiohealth Doctors Hospital03-16-2022 History of Present illness Narrative* Nazanin [...] 2021 TIME: 10:22 AM * Barbara Gaxiola weight clerk - 06/16/2021 10:00 AM EDT Radiology Service [...] 16, 2021 10:35 AM documented in this encounterOhiohealth Doctors Hospital03-01-2022 History of Present illness Narrative* Barbara Gaxiola weight clerk - 06/01/2021 11:20 AM EST Radiology Service [...] 2021 TIME: 11:13 AM documented in [facility] note No data available for this section General Surgery Jayjay Evaluation note* Diagnosis 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 [employer] Other Evaluation note* Diagnosis Meningioma (HCC)- Primary Benign neoplasm of cerebral meninges documented in this encounter [facility] note* Diagnosis Meningioma (HCC)- Primary Benign neoplasm of cerebral meninges documented in this encounter [facility] note* Diagnosis Benign neoplasm of meninges (HCC)- Primary Benign neoplasm of cerebral meninges documented in this encounter [facility] note* Diagnosis Benign neoplasm of meninges (HCC)- Primary Benign neoplasm of cerebral meninges documented in this encounter [facility] note* Diagnosis Benign neoplasm of meninges (HCC)- Primary Benign neoplasm of cerebral meninges documented in this encounter [facility] note* Diagnosis Benign neoplasm of meninges (HCC)- Primary Benign neoplasm of cerebral meninges documented in this encounter [facility] note* Diagnosis 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 documented in this encounter [facility] note* Diagnosis 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 documented in this encounter [facility]* Diagnosis 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 documented in this encounter [facility] note* Diagnosis 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) Liver lesion Other specified disorders of liver documented in this encounter [facility] note* Diagnosis 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 [facility] this [facility] - Reported* Type Description Date Medical History melanoma Surgical History laminectomy Surgical History c-sectionx 2 Surgical History hysterectomy Surgical History lump removed right wrist Surgical History melanoma removal [facility] [employer] Other History general [facility]ative - [facility] [employer] Other Hiswljb general Narrative - Reported* Type Description Date Medical History melanoma Surgical History laminectomy Surgical History c-sectionx 2 Surgical History hysterectomy Surgical History lump removed right wrist Surgical History melanoma removal Surgical History Colonoscopy 03/2023 [facility] [employer] Other Hospital Discharge instructions No data available for this section General Surgery Jayjay Progress note No data available for this section General Surgery Jayjay Reason for Referral Specialty Diagnoses / Procedures Referred By Selene lloyd Referred To Contact MR IMAGING Diagnoses Benign neoplasm of meninges (HCC) Procedures MRI BRAIN WO/W IVCON MRI BRAIN BRAIN STEM W/O W/[place] [address] [place] [address] Mr Imaging Referral ID Status Reason Start Date Expiration Date Visits Requested Visits Authorized [id number] Pending Review Auto-Generat ed Referral 08/23/2021 09/22/2022 1 1 Specialty Diagnoses / Procedures Referred By Selene lloyd Referred To Contact MR IMAGING Diagnoses Benign neoplasm of meninges (HCC) Procedures MRI BRAIN WO/W IVCON MRI BRAIN BRAIN STEM W/O W/CONTRAST MATERIAL Trista Bonilla APRN.CNP [address] [place] [address] Mr Imaging Referral ID Status Reason Start Date Expiration Date Visits Requested Visits Authorized [id number] Pending Review Auto-Generat ed Referral 08/29/2022 03/31/2023 1 1 Reason *FU 11/15 screenin g colonoscopy Diagnosis 1 Screen for colon can cer (Z12.11) Referral Organization [facility] elias Referring Provider First Name Lissett Referring Provider Last Name Gary Referring Provider Specialty [facility] Referred Organization [facility] Referred Provider Tucker Ann Referred Address [address] [place], [place],[address] Referred Provider Specialty General Surg katelyn Referral Priority Routine General Notes YaraLouise 10:47:05 AM >received today, attachments made, notes locked, referral faxed Clinical Notes F: [phone] Specialty Diagnoses / Procedures Referred By Contac t Referred To Contact MR IMAGING Diagnoses Benign neoplasm of meninges (HCC) Procedures MRI BRAIN LOCALIZATION W IVCON UNLISTED MAGNETIC RESONANCE PROCED Gurpreet Beckwith DO, PhD [address] [facility] [address] [place] [phone] Mr Imaging [facility]95 Referral ID Status Reason Start Date Expiration Date V isits Requested Visits Authorized [id number] Closed Auto-Generate d Referral 12/06/2022 1 1 Specialty Diagnoses / Procedures [facility] Referred To Contact MR IMAGING Diagnoses Benign neoplasm of meninges (HCC) Procedures MRI BRAIN WO/W IVCON MRI BRAIN BRAIN STEM W/O W/[place] [address] [place] [address] Mr Imaging [facility]95 Referral ID Status Reason Start Date Expiration Date V isits Requested Visits Authorized [id number] Closed Auto-Generate d Referral 06/21/2021 09/18/2021 1 1 Specialty Diagnoses / Procedures [facility] Referred To Contact MR IMAGING Diagnoses 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) Liver lesion Procedures MRI LIVER WO/W IVCON MRI ABDOMEN W/O & W/[place] [address] [place] [id number] Mr Imaging [facility]95 Referral ID Status Reason Start Date Expiration Date V isits Requested Visits Authorized [id number] Closed Auto-Generate d Referral 05/20/2021 07/11/2021 1 1 Specialty Diagnoses / Procedures [facility] Referred To Contact MR IMAGING Diagnoses Benign neoplasm of meninges (HCC) Procedures MRI BRAIN WO/W IVCON MRI BRAIN BRAIN STEM W/O W/CONTRAST MATERIAL Trista Bonilla APRN.LAMINA SEARCHER [address] [place] [address] Mr Imaging [facility]95 Referral ID Status Reason Start Date Expiration Date V isits Requested Visits Authorized [id number] Closed Auto-Generate d Referral 08/29/2022 03/31/2023 1 1 Referral ID Status Reason Start Date Expiration Date V isits Requested Visits Authorized [id number] Closed Auto-Generate d Referral 08/23/2021 03/20/2022 1 1 Specialty Diagnoses / Procedures Referred By Contac t Referred To Contact MR IMAGING Diagnoses Benign neoplasm of meninges (HCC) Procedures MRI BRAIN WO/W IVCON MRI BRAIN BRAIN STEM W/O W/CONTRAST MATERIAL Abdiaziz Bunch APRN.LAMINA SEARCHER [address] [place] [phone] Mr Imaging [place] [address] Referral ID Status Reason Start Date Expiration Date Visits Requested Visits Authorized [id number] Pending Review Auto-Generat ed Referral 09/12/2023 10/11/2024 1 1 Specialty Diagnoses / Procedures Referred By Contac t Referred To Contact MR IMAGING Diagnoses Benign neoplasm of meninges (HCC) Procedures MRI BRAIN WO/W IVCON MRI BRAIN BRAIN STEM W/O W/CONTRAST MATERIAL Gurpreet Beckwith DO, PhD [address] [place] [phone] Mr Imaging [place] [address] Referral ID Status Reason Start Date Expiration Date V isits Requested Visits Authorized [id number] Closed Auto-Generate d Referral 11/25/2022 12/25/2023 1 [...] this informatio n is protected by the [place] Confidentiality of Alcohol and Drug Abuse Patient Records regulations: The Federal rules restrict any use of the information to criminally investigate or prosecute any alcohol or drug abuse patient.Ohiohealth Doctors HospitalIn the event this information is protected by the Federal Confidentiality of Alcohol and Drug Abuse Patient Records regulations: The Federal rules restrict any use of the information to criminally investigate or prosecute any alcohol or drug abuse patient.Ohio[facility] Doctors HospitalIn the event this information is protected by the Federal Confidentiality of Alcohol and Drug Abuse Patient Records regulations: The Federal rules restrict any use of the information to criminally investigate or prosecute any alcohol or drug abuse patient.[facility] Doctors HospitalIn the event this information is protected by the Federal Confidentiality of Alcohol and Drug Abuse Patient Records regulations: The Federal rules restrict any use of the information to criminally investigate or prosecute any alcohol or drug abuse patient.[facility] Doctors HospitalIn the event this information is protected by the Federal Confidentiality of Alcohol and Drug Abuse Patient Records regulations: The Federal rules restrict any use of the information to criminally investigate or prosecute any alcohol or drug abuse patient.[facility] Doctors HospitalIn the event this information is protected by the Federal Confidentiality of Alcohol and Drug Abuse Patient Records regulations: The Federal rules restrict any use of the information to criminally investigate or prosecute any alcohol or drug abuse patient.[facility] Doctors HospitalIn the event this information is protected by the Federal Confidentiality of Alcohol and Drug Abuse Patient Records regulations: The Federal rules restrict any use of the information to criminally investigate or prosecute any alcohol or drug abuse patient.[facility] Doctors HospitalIn the event this information is protected by the Federal Confidentiality of Alcohol and Drug Abuse Patient Records regulations: The Federal rules restrict any use of the information to criminally investigate or prosecute any alcohol or drug abuse patient.[facility] Doctors HospitalIn the event this information is protected by the Federal Confidentiality of Alcohol and Drug Abuse Patient Records regulations: The Federal rules restrict any use of the information to criminally investigate or prosecute any alcohol or drug abuse patient.[facility] Doctors HospitalIn the event this information is protected by the Federal Confidentiality of Alcohol and Drug Abuse Patient Records regulations: The Federal rules restrict any use of the information to criminally investigate or prosecute any alcohol or drug abuse patient.[facility] Doctors HospitalIn the event this information is protected by the Federal Confidentiality of Alcohol and Drug Abuse Patient Records regulations: The Federal rules restrict any use of the information to criminally investigate or prosecute any alcohol or drug abuse patient.[facility] Doctors HospitalIn the event this information is protected by the Federal Confidentiality of Alcohol and Drug Abuse Patient Records regulations: The Federal rules restrict any use of the information to criminally investigate or prosecute any alcohol or drug abuse patient.[facility] Doctors HospitalIn the event this information is protected by the Federal Confidentiality of Alcohol and Drug Abuse Patient Records regulations: The Federal rules restrict any use of the information to criminally investigate or prosecute any alcohol or drug abuse patient.[facility] Doctors HospitalIn the event this information is protected by the Federal Confidentiality of Alcohol and Drug Abuse Patient Records regulations: The Federal rules restrict any use of the information to criminally investigate or prosecute any alcohol or drug abuse patient.[facility] HospitalIn the event this information is protected by the Federal Confidentiality of Alcohol and Drug Abuse Patient Records regulations: The Federal rules restrict any use of the information to criminally investigate or prosecute any alcohol or drug abuse patient.[facility] HospitalIn the event this information is protected by the Federal Confidentiality of Alcohol and Drug Abuse Patient Records regulations: The Federal rules restrict any use of the information to criminally investigate or prosecute any alcohol or drug abuse patient.[facility] HospitalIn the event this information is protected by the Federal Confidentiality of Alcohol and Drug Abuse Patient Records regulations: The Federal rules restrict any use of the information to criminally investigate or prosecute any alcohol or drug abuse patient.[facility] HospitalIn the event this information is protected by the Federal Confidentiality of Alcohol and Drug Abuse Patient Records regulations: The Federal rules restrict any use of the information to criminally investigate or prosecute any alcohol or drug abuse patient.[facility] HospitalIn the event this information is protected by the Federal Confidentiality of Alcohol and Drug Abuse Patient Records regulations: The Federal rules restrict any use of the information to criminally investigate or prosecute any alcohol or drug abuse patient.[facility] HospitalIn the event this information is protected by the Federal Confidentiality of Alcohol and Drug Abuse Patient Records regulations: The Federal rules restrict any use of the information to criminally investigate or prosecute any alcohol or drug abuse patient.[facility] HospitalIn the event this information is protected by the Federal Confidentiality of Alcohol and Drug Abuse Patient Records regulations: The Federal rules restrict any use of the information to criminally investigate or prosecute any alcohol or drug abuse patient.[facility] HospitalIn the event this information is protected by the Federal Confidentiality of Alcohol and Drug Abuse Patient Records regulations: The Federal rules restrict any use of the information to criminally investigate or prosecute any alcohol or drug abuse patient.[facility] HospitalIn the event this information is protected by the Federal Confidentiality of Alcohol and Drug Abuse Patient Records regulations: The Federal rules restrict any use of the information to criminally investigate or prosecute any alcohol or drug abuse patient.[facility] HospitalIn the event this information is protected by the Federal Confidentiality of Alcohol and Drug Abuse Patient Records regulations: The Federal rules restrict any use of the information to criminally investigate or prosecute any alcohol or drug abuse patient.[facility] HospitalIn the event this information is protected by the Federal Confidentiality of Alcohol and Drug Abuse Patient Records regulations: The Federal rules restrict any use of the information to criminally investigate or prosecute any alcohol or drug abuse patient.[facility] HospitalIn the event this information is protected by the Federal Confidentiality of Alcohol and Drug Abuse Patient Records regulations: The Federal rules restrict any use of the information to criminally investigate or prosecute any alcohol or drug abuse patient.[facility] HospitalIn the event this information is protected by the Federal Confidentiality of Alcohol and Drug Abuse Patient Records regulations: The Federal rules restrict any use of the information to criminally investigate or prosecute any alcohol or drug abuse patient.[facility] HospitalIn the event this information is protected by the Federal Confidentiality of Alcohol and Drug Abuse Patient Records regulations: The Federal rules restrict any use of the information to criminally investigate or prosecute any alcohol or drug abuse patient.[facility] HospitalIn the event this information is protected by the Federal Confidentiality of Alcohol and Drug Abuse Patient Records regulations: The Federal rules restrict any use of the information to criminally investigate or prosecute any alcohol or drug abuse patient.[facility] HospitalIn the event this information is protected by the Federal Confidentiality of Alcohol and Drug Abuse Patient Records regulations: The Federal rules restrict any use of the information to criminally investigate or prosecute any alcohol or drug abuse patient.[facility] HospitalIn the event this information is protected by the Federal Confidentiality of Alcohol and Drug Abuse Patient Records regulations: The Federal rules restrict any use of the information to criminally investigate or prosecute any alcohol or drug abuse patient.[facility] Reason for Visit (unrecogniz ed section [...] COMPLEX CRANIAL LESION [facility] [address] [address] Referral ID Status Reason Start Date Expiration Date Visits Re quested Visits Authorized [id number] [address] Specialty Diagnoses / Procedures Referred By Contac t Referred To Contact ADMITTING Diagnoses Benign neoplasm of meninges (HCC) Procedures RADIATION DELIVERY STEREOTACTIC CRANIAL [place] STEREOTACTIC RADIOSURGERY 1 COMPLEX CRANIAL LES RADIATION [place] STEREOTACTIC RADIOSURGERY (SRS) [place] CRANIAL LESION(S) 1 SESSION MULTI-SOURCE COBALT STEREOTACTIC RADIOSURGERY 1 COMPLEX CRANIAL LESION [facility] [address] [address] Reason Comments Recheck Reason Comments Glost Tile Sorter - Other Reason Comments Established Patient Reason Comments Established Patient Reason Comments Recheck Reason Comments Consult GK consult for LF me ningioma Reason Comments Glost Tile Sorter - 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 Reason Comments Procedure GKRS Reason Comments Radiology MRI Specialty Diagnoses / Procedures Referred By Contac t Referred To Contact MR IMAGING Diagnoses 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) New daily persistent headache Other headache syndrome Procedures MRI BRAIN WO/W IVCON MRI BRAIN BRAIN STEM W/O W/[place] [address] [place] [id number] Mr Imaging [facility]95 Referral ID Status Reason Start Date Expiration Date V isits Requested Visits Authorized [id number] Closed Auto-Generate d Referral 04/29/2021 06/13/2021 1 1 Specialty Diagnoses / Procedures Referred By Contac t Referred To Contact MR IMAGING Diagnoses Benign neoplasm of meninges (HCC) Procedures MRI BRAIN WO/W IVCON MRI BRAIN BRAIN STEM W/O W/[place] [address] [place] [address] Mr Imaging [facility]95 Referral ID Status Reason Start Date Expiration Date V isits Requested Visits Authorized [id number] Closed Auto-Generate d Referral 06/21/2021 09/18/2021 1 1 Specialty Diagnoses / Procedures Referred By Contac t Referred To Contact MR IMAGING Diagnoses 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) Liver lesion Procedures MRI LIVER WO/W IVCON MRI ABDOMEN W/O & W/[place] [address] [place] [address] [place] [id number] Referral ID Status Reason Start Date Expiration Date V isits Requested Visits Authorized [id number] Closed Auto-Generate d Referral 05/20/2021 07/11/2021 1 1 Specialty Diagnoses / Procedures Referred By Contac t Referred To Contact MR IMAGING Diagnoses Benign neoplasm of meninges (HCC) Procedures MRI BRAIN WO/W IVCON MRI BRAIN BRAIN STEM W/O W/CONTRAST MATERIAL Trista Bonilla APRN.LAMINA SEARCHER [address] [place] [address] Mr Imaging [facility]95 Referral ID Status Reason Start Date Expiration Date V isits Requested Visits Authorized [id number] Closed Auto-Generate d Referral 08/29/2022 03/31/2023 1 1 Referral ID Status Reason Start Date Expiration Date V isits Requested Visits Authorized [id number] Closed Auto-Generate d Referral 08/23/2021 03/20/2022 1 [...] W/CONTRAST MATERIAL Gurpreet Beckwith DO, PhD [address] [facility] [address] [place] [address] Mr Imaging [facility]95 Referral ID Status Reason Start Date Expiration Date V isits Requested Visits Authorized [id number] Closed Auto-Generate d Referral 11/25/2022 12/25/2023 1 1 INFORMATION SOURCE (unrecogn ized section and content) DATE CREATED AUTHOR 06/10/2022 [facility] DATE CREATED AUTHOR AUTHOR'S ORGANIZ ATION 02/04/2023 [facility] DATE CREATED AUTHOR AUTHOR'S ORGANIZ ATION 03/30/20[address] Ritesh Pick[address] [facility] DATE CREATED AUTHOR AUTHOR'S ORGANIZ ATION 06/08/2023 [facility] DATE CREATED AUTHOR AUTHOR'S ORGANIZ ATION 09/06/2023 [facility] DATE CREATED AUTHOR AUTHOR'S ORGANIZ ATION 09/13/2023 [facility] Teams (unrecognized sec tion and content) Honey Processor Relationship Specialty Start Date End Date Lissett Vega MD [address] [place] [address] PCP - General Family Medicine 01/17/23 Honey Processor Relationship Specialty Start Date End Date Lissett Vega MD [address] [place] [address] PCP - General Family Medicine 01/17/23 Honey Processor Relationship Specialty Start Date End Date Lissett Vega MD [address] [place] [address] PCP - General Family Medicine 01/17/23 Honey Processor Relationship Specialty Start Date End Date Lissett Vega MD [address] [place] [address] PCP - General Family Medicine 01/17/23 Honey Processor Relationship Specialty Start Date End Date Lissett Vega MD [address] [place] [address] PCP - General Family Medicine 01/17/23 Honey Processor Relationship Specialty Start Date End Date Lissett Vega MD [address] [place] [address] PCP - General Family Medicine 01/17/23 Honey Processor Relationship Specialty Start Date End Date Lissett Vega MD [address] [place] [address] PCP - General Family Medicine 01/17/23 Honey Processor Relationship Specialty Start Date End Date Lissett Vega MD [address] [place] [address] PCP - General Family Medicine [...] July 03, 2023 End: July 03, 2023 Honey Processor Relationship Specialty Start Date End Date Lissett Vega MD [address] [place] [address] PCP - General Family Medicine 01/17/23 Honey Processor Relationship Specialty Start Date End Date Lissett Vega MD [address] [place] [address] PCP - General Family Medicine 01/17/23 Honey Processor Relationship Specialty Start Date End Date Lissett Vega MD [address] [place] [address] PCP - General Family Medicine [...] BE BASED ON THE PRIMARY CLINICAL RECORDS. [facility] [employer], [facility]. provides no warranty or guarantee of the accuracy or completeness of information in this document.
[2023-10-02 06:38] LABS: Glucometer 103 mg/dL (74-106)
[2023-10-02] MEDS: LACTATED RINGER'S SOLUTION 1,000 ML 50 ML IV (07:08)
[2023-10-02] MEDS: CEFAZOLIN SODIUM/DEXTROSE,ISO 2 GM/50 ML PIGGYBACK IV (07:33)
--- NOTE | 2023-10-02 07:40 | PM.ORONB ---
Brief Operative Note Date of procedure: 10/02/23 Pre-op diagnosis general: Left calcaneus painful retained hardware, lateral ankle wound with hypertrophic scar Post-op diagnosis: same as pre-op Procedure: Procedure performed: Removal of deep implanted orthopedic hardware left calcaneus, excision of hypertrophic scar and delayed primary closure of wound left lateral ankle Indications for procedure: Patient is a 48-year-old female who underwent left lateral ankle stabilization, lateral displacement calcaneal osteotomy, peroneal tendon repair, plantar fasciotomy, tailor's bunionectomy and correction of fifth hammertoe on 03/30/2023. She developed a hypertrophic scar and recurrent wound over her lateral ankle incision which despite massage and Mederma did not significantly improve over the last 3 months. In addition, she continues to have residual heel pain over the 2 calcaneal screws. Due to her failure to significantly improve over the last 3+ months she wished to undergo surgical intervention with removal of the hardware and excision of the hypertrophic scar and wound. She was educated on potential risks and benefits of the procedure and all questions were answered to her satisfaction. Intraoperative findings: The 2 screws in her calcaneus were well seated and bone quality was within normal limits with no signs of infection. Hypertrophic scar over the lateral ankle and wound which measured 0.3 x 0.2 cm was excised. There is no signs of infection over the lateral ankle. Wound did extend into subcutaneous tissue and there was a piece of suture noted within the tissue. The tissue surrounding the suture was consistent with a granuloma. This incision was then closed without skin tension. Procedure in detail: Patient was identified in preoperative holding by myself which time correct side and site were marked and consent was obtained. Preoperative antibiotics were started and patient was brought back to the operating theater placed on table in supine position. Thigh tourniquet was placed and general anesthesia was administered. The left lower extremity was prepped and draped in usual sterile fashion and formal timeout was performed. The operative extremity was exsanguinated and tourniquet was inflated. 20 cc of half percent Marcaine plain were injected around the surgical sites. The hypertrophic scar including the wound was excised and a 3-1 ellipse then extended both proximally and distally by 2 cm. Meticulous dissection was performed to ensure all hypertrophic scar and infected tissue was excised. The piece of suture was identified and was also excised. Then a Metzenbaum scissor was used to meticulously undermine the tissue surrounding the wound. Surgical site was irrigated with copious saline and there is no signs of infection. Then the incision was closed without tension utilizing only skin suture. Utilizing fluoroscopy a 3 cm linear incision was placed over the posterior calcaneus with a combination of sharp and blunt dissection was taken down to the screw heads over the calcaneus. Once the screws were identified a dental pick was used to remove fibrous tissue and a small amount of bone that overlie the screw heads. Then each screw was removed with appropriate screwdriver under fluoroscopic guidance. The screw holes were then curetted till healthy bleeding bone was noted surgical site was irrigated with copious saline. Then the incision was closed with skin suture. The tourniquet was deflated with a prompt hyperemic response. A dry sterile dressing and surgical shoe were then applied. Patient tolerated the procedure and anesthesia well was transferred to the recovery room with vital signs stable and brisk capillary refill to the left toes. Postoperative plan: Discharge home under family's care. Weightbearing as tolerated in surgical shoe or cam boot until incisions have healed. Will follow-up in 1 week for incision check and plan to remove sutures at 3 weeks at which time she should be able to return back to normal shoes and normal activity. Anesthesia: General-LMA Surgeon: Andrea Morillo Pharmacy District Manager: Justin Shah Estimated blood loss (mL): 10 Pathology: other (hypertrophic scar/wound) Condition: stable Disposition: PACU
[2023-10-02] MEDS: BUPIVACAINE HCL 0.5% PF 50 MG/10 ML VIAL 20 ML INJ (08:39)
--- NOTE | 2023-10-02 08:59 | XR_ITS ---
The [address] [address] Patient Name: BEN TABOR MRN: [id number] date: 1975 Sex: F Assigned Patient Location: [facility] Current Patient Location: Accession/Order Number: [id number] Exam Date: 10/02/2023 09:10 Report Date: 10/03/2023 07:22 At the request of: SHEREE BOWMAN Procedure: XR foot LT 2V PROCEDURE: XR foot LT 2V HISTORY: postop xr pacu, AP/lat COMPARISON: XR foot left 09/01/2023 FINDINGS: BONES:Interval removal of lag screws securing the prior posterior calcaneal osteotomy. There appears to be cephalad movement of the posterior calcaneal fragment compared to the preoperative images. SOFT TISSUES:Posterior skin surface irregularity consistent with recent surgery. EFFUSION:None visible. OTHER: Negative. XR/XR foot LT 2V IMPRESSION: 1. Cephalad movement of the posterior calcaneal fragment following removal of the calcaneal screws versus change in image projection. Follow-up recommended. Electronically authenticated by: YASSINE SANCHEZ Date: 10/03/2023 07:22
[2023-10-02 09:09] LABS: Glucometer 85 mg/dL (74-106)
[2023-10-02] MEDS: HYDROMORPHONE HCL 0.5 MG/0.5 ML SYRINGE IV (09:20)
--- NOTE | 2023-10-02 09:29 | PC.NURSE ---
Medicated for pain as ordered
--- NOTE | 2023-10-02 11:16 | PC.NURSE ---
1050 PATIENT STATES SHE NEEDS A LITTLE MORE TIME TO WAKE UP.
== END 2023-10-02 11:20 | disposition home or self-care (01) ==
PROVIDERS: PCP Family Medicine; Visit Provider Podiatrist Foot & Ankle Surgery
PROC: (CPT 400; principal; 2023-10-02 07:30)
DX: T84.84XA Pain due to internal orthopedic prosthetic devices, implants and grafts, initial encounter (principal); L91.0 Hypertrophic scar; L90.5 Scar conditions and fibrosis of skin; M79.672 Pain in left foot; M25.572 Pain in left ankle and joints of left foot; Z90.710 Acquired absence of both cervix and uterus; Z87.891 Personal history of nicotine dependence; E78.5 Hyperlipidemia, unspecified; K21.9 Gastro-esophageal reflux disease without esophagitis; Z86.16 Personal history of COVID-19
CPT/HCPCS: 13160; 20680; 36415; 73620; 76000; 82948; 88304; J0665; J0690; J1100; J1170; J1885; J2250; J2405; J2704; J3010

== ENCOUNTER 2024-04-30 09:38 | Outpatient (OUT) | payer OTHER, SELFPAY ==
--- NOTE | 2024-04-30 | XR_ITS ---
[facility] [place] [id number] Patient Name: BEN TABOR MRN: [id number] date: 1975 Sex: F Assigned Patient Location: [facility] Current Patient Location: [facility] Accession/Order Number: [id number] Exam Date: 04/30/2024 09:40 Report Date: 04/30/2024 10:33 At the request of: ALEKSANDER FALCON Procedure: XR ankle LT min 3V PROCEDURE: XR ankle LT min 3V, XR foot LT min 3V COMPARISON: 09/01/2023, 10/02/2023 HISTORY: LEFT ANKLE PAIN FINDINGS: BONES:No acute fracture or dislocation. Stable posterior calcaneal osteotomy with bony bridging. Moderate enthesopathic spurring of the calcaneus at the Achilles and plantar insertions. No lytic or sclerotic changes SOFT TISSUES:Negative. No visible soft tissue swelling. EFFUSION:None visible. OTHER: Negative. XR/XR ankle LT min 3V IMPRESSION: Stable postsurgical and degenerative changes Electronically authenticated by: ZHANNA DELONG Date: 04/30/2024 10:33
--- NOTE | 2024-04-30 | XR_ITS ---
[facility] [place] [id number] Patient Name: BEN TABOR MRN: [id number] date: 1975 Sex: F Assigned Patient Location: [facility] Current Patient Location: [facility] Accession/Order Number: [id number] Exam Date: 04/30/2024 09:40 Report Date: 04/30/2024 10:33 At the request of: ALEKSANDER FALCON Procedure: XR foot LT min 3V PROCEDURE: XR ankle LT min 3V, XR foot LT min 3V COMPARISON: 09/01/2023, 10/02/2023 HISTORY: LEFT ANKLE PAIN FINDINGS: BONES:No acute fracture or dislocation. Stable posterior calcaneal osteotomy with bony bridging. Moderate enthesopathic spurring of the calcaneus at the Achilles and plantar insertions. No lytic or sclerotic changes SOFT TISSUES:Negative. No visible soft tissue swelling. EFFUSION:None visible. OTHER: Negative. XR/XR foot LT min 3V IMPRESSION: Stable postsurgical and degenerative changes Electronically authenticated by: ZHANNA EDLONG Date: 04/30/2024 10:33
--- OUTSIDE RECORDS SUMMARY | 2024-04-30 09:59 | XMS_ITS | CCD ---
Author Organization [facility] Care Team Providers Care Dredge Pipe Installer Name Role Phone Unavailable Primary Care Provider Jacqueline VEGA, DR LISSETT Fung Admitting Unavailable GARY, DR LISSETT Fung Attending Unavailable GARY, DR LISSETT Fung Primary Care Unavailable MISC, [...] Unavailable Lissett Vega MD Primary Care Provider [phone] LISSETT VEGA Primary Care Physician Debbie DE LOS SANTOS Attending Unavailable Debbie DE LOS SANTOS Attending Unavailable MD Lissett Vega Primary Care Provider MD Jes Vieira Attending Provider [phone] HANS COLBY Attending Unavailable HANS COLBY Attending Unavailable Lissett Vega MD Primary Care Provider MD Lissett Vega Primary Care Provider BOBO Morillo Attending Provider Andrea Morillo Admitting Unavailable Andrea Morillo Attending Unavailable Vega, Lissett E Primary Care Unavailable Jes Vieira Admitting Unavailable Jes Vieira Attending Unavailable Vega, Lissett E Primary Care Unavailable BECKWITH, GURPREET Attending Unavailable BECKWITH, GURPREET Referring Unavailable BECKWITH, GURPREET Admitting Unavailable DEBBIE ECHEVERRIA Attending Unavailable VEGA, LISSETT E Primary Care Unavailable BECKWITH, GURPREET Referring Unavailable VEGA, LISSETT E Primary Care Unavailable BURAK PRAKASH Attending Unavailable VEGA, LISSETT E Primary Care Unavailable BURAK PRAKASH Attending Unavailable VEGA, LISSETT E Primary Care Unavailable ABDIAZIZ BUNCH Attending Unavailable BECKWITH, GURPREET Referring Unavailable VEGA, LISSETT E Primary Care Unavailable BECKWITH, GURPREET Referring Unavailable VEGA, LISSETT E Primary Care Unavailable DEBBIE ECHEVERRIA Attending Unavailable VEGA, LISSETT E Primary Care Unavailable BECKWITH, GURPREET Attending Unavailable BECKWITH, GURPREET Referring Unavailable BECKWITH, GURPREET Admitting Unavailable VEGA, LISSETT E Primary Care Unavailable BECKWITH, GURPREET Attending Unavailable BECKWITH, GURPREET Referring Unavailable BECKWITH, GURPREET Admitting Unavailable VEGA, LISSETT E Primary Care Unavailable DEBBIE ECHEVERRIA Attending Unavailable BECKWITH, GURPREET Attending Unavailable BECKWITH, GURPREET Referring Unavailable BECKWITH, GURPREET Admitting Unavailable VEGA, LISSETT E Primary Care Unavailable Unavailable Primary Care Provider Unavailabl e Allergies Allergy Classification Reported Allergen(s) Allergy Type Date of Onset Reaction(s) Facility (5 sources) patient allergy list reviewed by nurse or physicia Propensity to adverse reactions 7 Comment:Done eCollect Other (5 sources) Allergies Reconciled Propensity to adverse reactions Unknown eCollect Other (1 source) No Known Medication Allergies; Translations: [No Known Medication Allergies] Propensity to adverse reactions (disorder) [facility] Repository Medications Current Medications Medication [...] days Active dexamethasone 4 mg oral tablet (13 sources) Corticosteroid Start: 01-29-20 dexAMETHasone (DECADRON) 4 mg tablet Start the day after your Gamma Knife Procedure: Decadron (Dexamethasone), Take 4 mg (1 tablet) daily for 4 days, Take 2 mg (1/2 tablet) daily for 4 days, then stop Decadron 6 tablet 01/28/2023 Active Start: 01-28-2023 dexAMETHasone (DECADRON) 4 [...] Decadron 1 ml evolocumab 140 mg/ml auto-injector (11 sources) PCSK9 Inhibitor Start: End: inject 140 mg by subcutaneous injection every other week Evolocumab (Repatha Sureclick) 140 mg/mL pen injector Active 140 MG SUBCUT EVERY 2 WEEKS 6 90 June 05, 2023 12:00am Comment on above: Inject 140 mg subcut aneously every 2 weeks. famotidine 20 mg oral tablet (13 sources) Histamine-2 Receptor Antagonist Start: take 1 tablet by mouth once daily famotidine (PEPCID) 20 mg tablet Take 1 tablet by mouth once daily. 6 tablet 01/28/2023 Active Start: 01-28-2023 take 1 tablet by petra th once daily famotidine (PEPCID) 20 mg tablet Take 1 tablet by mouth once daily. 6 tablet 0 01/28/2023 Active Comment on above: Take 1 tablet by petra th once daily. ibuprofen 800 mg oral tablet (3 sources) Nonsteroidal Anti-inflammatory Drug Start: 06-05-2023 Ibuprofen 800 mg tablet Active 800 MG PO every 6 to 8 hours June 05, 2023 12:00am inclisiran (LEQVIO) 284 mg/1.5 mL injection (20 sources) Start: 12-15-2021 inclisiran (LEQVIO) 284 mg/1.5 mL injection 12/15/2021 Active Start: 12-15-2021 inclisiran (LE QVIO) 284 mg/1.5 mL injection iv contrast (will be provided with radiology test) (3 sources) Start: 09-12-2023 End: 09-13-2023 inject 1 dose intravenously once iv contrast [...] Start: 12-02-19 meloxicam (MOBIC) 15 mg tablet 12/01/2021 Active Multivitamin preparation (2 sources) Start: 06-05-19 24 take 1 tablet by mouth once daily Multivitamin Active 1 TAB PO Daily June 05, 2023 1:00am Multivitamin tablet (1 source) Start: 06-05-19 24 take 1 tablet by mouth once daily Multivitamin tablet Active 1 TAB PO Daily June 05, 2023 12:00am omeprazole 20 mg delayed release oral capsule (20 sources) Proton Pump Inhibitor take 1 capsule by mouth once daily omeprazole (PRILOSEC) 20 mg capsule Take 20 mg by mouth once daily. Active Comment on above: Take 20 mg by mouth once daily. Completed/Discontinued Medications Medication Drug Class(es) Dates Sig (Normalized) Sig (Original) Inclisiran (3 sources) Start: 06-02-2023 End: 02-19-2024 Inclisiran 284 mg/1.5 mL syringe Discontinued MG SUBCUT As Directed June 02, 2023 12:00am February 19, 2024 3:45pm FreeTextSig: as directed Subcutaneous; Note: Source Status: Refill; Provider: Gary Fung Start: 06-02-2023 Inclisiran Act hiwot MG SUBCUT As Directed June 02, 2023 1:00am FreeTextSig: as directed Subcutaneous; Note: Source Status: Refill; Provider: Gary Fung rosuvastatin calcium 10 mg oral tablet (2 sources) HMG-CoA Reductase Inhibitor End: 06-21-2021 take 1 tablet by mouth once daily rosuvastatin (CRESTOR) 10 mg tablet Take 10 mg by mouth once daily. 0 06/21/2021 Discontinued (Other) Comment on above: Take 10 mg by mouth once daily. sulfamethoxazole 800 mg / trimethoprim 160 mg oral tablet (4 sources) Dihydrofolate Reductase Inhibitor Antibacterial, Sulfonamide Antimicrobial Start: 07-03-2023 End: 02-19-2024 take 1 tablet by mouth twice daily Sulfamethoxazole- Trimethoprim 800-160 mg tablet Discontinued 1 TAB PO Twice daily September 25, 2023 9:06am February 19, 2024 3:46pm tamsulosin hydrochloride 0.4 mg oral capsule (6 sources) alpha-Adrenergic Ivan Start: 06-02-2023 End: 06-05-2023 take 1 capsule by mouth once daily Tamsulosin 0.4 mg capsule Discontinued 1 CAP PO Daily June 02, 2023 12:00am June 05, 2023 1:18pm FreeTextSi capsule Orally Once a day; Note: Source Status: Taking; Qty: 7 Capsule; Provider: Gary Fung take 1 capsule by [facility] every twenty-four hours Flomax 0.4 MG 1 [...] eye, unspecified eyelid] Episodic Melanomas of skin (9 sources) Malignant melanoma of trunk; Translations: [Malignant melanoma of other part of trunk] Chronic Neoplasms of unspecified nature or uncertain behavior (1 source) Neoplasm of meninges 02-17-2023 Episodic Nonmalignant breast conditions (8 sources) Disorder of breast; Translations: [Other specified [...] (HCC)] Onset: 01-27-2023 Chronic Other circulatory disease (8 sources) Elevated blood-pressure reading without diagnosis of hypertension; Translations: [Elevated blood-pressure reading, without diagnosis of hypertension] 06-02-2023 Episodic Other connective tissue disease (1 source) Plantar fascial fibromatosis Episodic Other connective tissue disease (8 sources) Spasm; Translations: [Other muscle spasm] 06-02-2023 Episodic Other connective tissue disease (5 sources) Pain in left foot; Translations: [Pain in left foot] Episodic Other connective tissue disease (3 sources) Foot pain; Translations: [Pain in left foot] 06-02-2023 Episodic Other liver diseases (1 source) Lesion of liver; Translations: [Liver disease, unspecified] 06-16-2021 Chronic Other lower respiratory disease (1 source) Chest pain on breathing; Translations: [Chest pain on breathing] 05-13-2021 Episodic Other lower respiratory disease (1 source) Dyspnea; Translations: [Shortness of breath] 05-13-2021 Episodic Other nervous system disorders (3 sources) History of benign meningioma of brain; Translations: [...] unspecified shoulder] Episodic Other non-traumatic joint disorders (3 sources) Shoulder pain; Translations: [Pain in unspecified shoulder] [...] conditions (not mental disorders or infectious disease) (20 sources) Encounter for screening for malignant neoplasm of cervix; Translations: [Encounter for screening mammogram for malignant neoplasm of breast] Onset: 09-08-2021 Episodic Residual codes; unclassified (5 sources) Acquired absence of genital organ; Translations: [Acquired absence of other genital organ(s)] Episodic Spondylosis; intervertebral disc disorders; other back problems (8 sources) Displacement of lumbar intervertebral disc without myelopathy; Translations: [Other intervertebral disc displacement, lumbar region] 06-02-2023 Chronic Sprains and strains (5 sources) Sprain of shoulder and upper arm; Translations: [Sprain and strain of unspecified site of shoulder and upper arm] Episodic Unclassified (1 source) Patient encounter status 02-01-2023 Viral infection (5 sources) Disease caused by [...] malignant neoplasm of breast; Translations: [FAMILY HX MALTRISHA NEOPLASM OF BREAST] Onset: 09-11-2021 Episodic Residual [...] Test Name Value Interpretation Reference Range Facility [facility] 12-14-2023 [facility] Visit (SP) Office ([facility]3) ----- BEN CRUZ ([id number]) 1975 F Date Time Provider Department 12/14/23 10:30 AM DEBBIE ECHEVERRIA [facility] During your visit today, we recorded the following information about you: Temperature Pulse Respiration Blood pressure 97.6 degrees 85/minute 20/minute 140/85 Weight Height 101 kg 1.626 m Bella Whaley MA 12/14/2023 10:47 AM Signed Additional intake questions: Has the patient had fever, nausea, vomiting, diarrhea, constipation, fatigue for > 1 week? No Does the patient have a decreased appetite? No Does patient want to see a Hem Marker? No (yes to any of above refer patient to schedulers for dietitian appointment) ) Does patient have any new or increased numbness or tingling of extremities? No Is patient interested in fertility information? NA Does patient need any prescription refills? No Does patient have an advanced directive in place? No, Electronically Signed By: ANABEL Cortes Michael J, MD 12/19/2023 3:07 PM Signed [facility] GASTROENTEROLOGY ONCOLOGY ESTABLISHED PATIENT VISIT PATIENT NAME: Ben Cruz : 1975 ATTENDING PHYSICIAN: Dr Echeverria DATE OF SERVICE: December 14, 2023 DIAGNOSIS: Desmoplastic melanoma HISTORY OF PRESENT [...] been monitored via surveillance. Last seen in June 2023. INTERVAL HISTORY: Since last visit, she visited electric dolly operator in 10/2023, and was reassured, no new appearing skin lesions. Follows every 6 months. She saw neurology and had MRI brain in 09/2023, with stable changes. She is following up with neurology every yearly, next visit September 2024. She denies any nausea, vomiting, fevers, chills, night sweats, decreased appetite, headaches, dizziness, chest pain, shortness of breath, heart palpitations, abdominal pain, constipation, diarrhea, numbness, tingling, weakness, urinary and fecal issues, dark stools, bright red stools or hematuria. REVIEW OF SYSTEMS:As per HPI MEDICATIONS: REPATHA SURECLICK 140 mg/mL pen injector Inject 140 mg subcutaneously every 2 weeks. omeprazole (PRILOSEC) 20 mg capsule Take 20 mg by mouth once daily. dexAMETHasone (DECADRON) 4 mg tablet Start the day after your Gamma Knife Procedure: Decadron (Dexamethasone), Take 4 mg (1 tablet) daily for 4 days, Take 2 mg (1/2 tablet) daily for 4 days, then stop Decadron famotidine (PEPCID) 20 mg tablet Take 1 tablet by mouth once daily. meloxicam (MOBIC) 15 mg tablet inclisiran (LEQVIO) 284 mg/1.5 mL injection ALLERGIES No Known Allergies PHYSICAL EXAMINATION: BP 140/85 Pulse 85 Temp 36.4 ?C (97.6 ?F) Resp 20 Ht 162.6 cm (5' 4 ) Wt 101 kg (222 lb 10.6 oz) LMP 09/08/2019 SpO2 97% BMI 38.22 kg/m? Body surface area is 2.14 meters squared. 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 Normal [facility] Jacky 10-02-2023 L Specimen: [id number] Received: 10/02/23 Status: CT [place] Num: [id number] Spec Type: Surgical Subm Dr: Andrea Morillo DPM, MS Tissues: A Skin - Plastic Repair/Scar (HYPERTROPHIC SCAR LT ANKLE) Procedures: HE, Gross/Micro L2 Age/ Patient Sex Location Account Attending Physician Ben Cruz 48/F [facility] [id number] Andrea Morillo DPM, MS SPEC NUM: [id number] RECD: 10/02/23 STATUS: CT [place] NUM: [id number] JOE: 10/02/[address]: Andrea Morillo DPM, MS ENTERED: 10/02/23 [facility] DR: Stephanie Ro SPEC TYPE: Surgical DEPT: TORREY OROURKE ORDERED: HE, Gross/Micro L2 ORDERED: HE, Gross/Micro L2 Pathological Diagnosis Hypertrophic scar, left ankle, excision: Focal epidermal inclusion with surrounding dermal inflammation. Clinical Information Pain due to internal hardware Gross Description Received in formalin labeled with the patient's name, date of and hypertrophic scar left ankle is a 1.6 x 0.7 x 0.4 cm pale-madden portion of skin. The surface contains a 0.4 x 0.3 cm ulcerated lesion. The specimen is inked black along its resection margin, serially sectioned and entirely submitted in A1. CPT Codes 18654 Specimen: [id number] Received: 10/02/23 Status: CT [place] Num: [id number] Spec Type: Surgical Subm Dr: Andrea Morillo,DPBrendan, MS Tissues: A Skin - Plastic Repair/Scar (HYPERTROPHIC SCAR LT ANKLE) Procedures: Melissa HOLMAN/Jerome L2 Patient: Ben Cruz [id number] (Continued) Signed (signature on file) Demian Saleh MD 10/03/23 1528 Normal [facility] Yael 09-12-2023 CN Office Visit (NSMRCC ) ----- BEN CRUZ ([id number]) 1975 F Date Time Provider Department 09/12/23 11:45 AM ABDIAZIZ BUNCH [facility] During your visit today, we recorded the following information about you: Pulse Blood pressure Weight 81/minute 141/86 97 kg Abdiaziz Bunch, MAILROOM COORDINATOR.FLOWER GRADER 09/12/2023 1:21 PM Signed [facility] NEURO-ONCOLOGY OUTPATIENT CLINIC NOTE [...] DATE OF EXAM: Sep 12 2023 11:35AM [facility] 0295 - MRI BRAIN WO/W IVCON / ACCESSION (more content not included)... Normal [facility] MR Brain WO and W contrast I Von 09-12-2023 IMPRESSION: Unchanged size of presumed 9 mm meningioma along the left frontal convexity without substantial mass effect. Armament Aircraft Mechanic: TORI Transcribe Date/Time: Sep 12 2023 11:55A Dictated by : IAN DUNNE MD This examination was interpreted and the report reviewed and electronically signed by: IAN DUNNE MD on Sep 12 2023 11:58AM [facility] DIVISION OF RADIOLOGY * * *Final Report* * * DATE OF EXAM: Sep 12 2023 11:35AM [facility] 0295 - MRI BRAIN WO/W IVCON / [...] DATE OF EXAM: Sep 12 2023 11:35AM [facility] 0[facility] - MRI BRAIN WO/W IVCON / [...] left frontal convexity without substantial mass effect. Armament Aircraft Mechanic[facility] Transcribe Date/Time: Sep 12 2023 11:55A Dictated by : IAN DUNNE MD This examination was interpreted and the report reviewed and electronically signed by: IAN DUNNE MD on Sep 12 2023 11:58AM EST [facility] Radiology Study observation (narrative) [facility] MR Brain WO and W contrast I VOrdered By: Ccf Provider on 09-12-2023 [facility] MRI BRAIN WO/W IVCONon 09-11 MRI BRAIN WO/W IVCON * * *Final Report* * * DATE OF EXAM: Sep 12 2023 11:35AM [facility] 0[facility] - MRI BRAIN WO/W IVCON / [...] left frontal convexity without substantial mass effect. Armament Aircraft Mechanic: [employer] [place] Transcribe Date/Time: Sep 12 2023 11:55A Dictated by : IAN DUNNE MD This examination was interpreted and the report reviewed and electronically signed by: IAN DUNNE MD on Sep 12 2023 11:58AM EST [id number] Normal [facility] ----- BEN CRUZ ([id number]) 1975 F Date Time Provider Department 09/08/23 ABDIAZIZ BUNCH [facility] During your visit today, we recorded the following information about you: Johann Henriquez RN 09/08/2023 12:36 PM Signed Patient called in requesting ativan for her MRI. Chart review indicates patient has been prescribed 1mg of ativan prior to past MRI's and has tolerated it well. Orders pended to provider for review. Johann Henriquez RN Child Development Associate Teacher Allergies As of Date: 09/08/2023 (No Known [...] Encounter Status:Closed by ABDIAZIZ BUNCH on 09/08/23 Normal [facility] Human papilloma virus 16+18+ 31+33+35+39+45+51+52+56+58+59+66+68 DNA [Presence] in [place] 09-05-2023 HPV 16+18+31+33+35+39+ 45+51+52+56+58+59+ 66+68 DNA Probe+sig amp Ql (Cvx) Negative Negative [facility] Comment on above: This nucleic acid am plification test detects fourteen high- risk HPV types (16,18,31,33,35,39,45,51,52,56,58,59,66,68)without differentiation.Performed at: =G - [facility] [address] [id number] Director: Chani Rios MD, Phone: [phone] at: [facility] - [facility] [place] [address] [place], [place] [id number] Director: Wilmer Cuevas MD, Phone: [phone] No Panel Informationon 09-04 HPV High Risk Other Comment Note . [facility] Comment on above: TESTS RESULT FLAG UN ITS REF RANGE LAB DIAG NOSIS: 02 NEGATIVE FOR INTRAEPITHELIAL LESION OR MALIGNANCY. FUNGAL ORGANISMS MORPHOLOGICALLY CONSISTENT WITH MOSES SPECIES ARE PRESENT.Specimen adequacy: 02 Satisfactory for evaluation. Endocervical and/or squamous metaplastic cells (endocervical component) are present.Performed by: Bradley Campbell, Internet Salesperson (ASCP). 02Note: Note 03 The Pap smear is a screening test designed to aid in the detection of premalignant and malignant conditions of the uterine cervix. It is not a diagnostic procedure and should not be used as the sole means of detecting cervical cancer. Both false-positive and false-negative reports do occur.Test Methodology: Note 03 This liquid based ThinPrep(R) pap test was screened with the use of an image guided system.HPV Genotype Reflex Note 02 Criteria not met, HPV Genotype not performed. --- FLAG LEGEND: L-Low Normal,H-High Normal,LL-Alert Low,HH-Alert High <-Panic Low,>-Panic High,A-Abnormal,AA-Critical Abnormal -Performed at:02 [facility] [place] [address] [address] [place] [address] Wilmer Cuevas MD, [address] [facility] [address] [place] [address] Chani Rios MD, Reference Lab Test Patient Age Note . [facility] Comment on above: TESTS RESULT FLAG UN ITS REF RANGE LAB Clinician Provided Cytology Information Source.............Cervix;Endocervix No. of containers..01 ThinPrep VialAge Bryono LOUISE Katelyn... 3065 FLAG LEGEND: L-Low Normal,H-High Normal,LL-Alert Low,HH-Alert High <-Panic Low,>-Panic High,A-Abnormal,AA-Critical Abnormal -Performed at:01 =G [facility] [address] [place] [address] Chani Rios MD, CNOVSPon 06-13-2023 [facility] Visit (SP) Office ([facility]) ----- BEN CRUZ ([id number]) 1975 F Date Time Provider Department 06/13/23 9:30 AM [facility] During your visit today, we recorded the following information about you: Temperature Pulse Respiration Blood pressure 97.6 degrees 79/minute 20/minute 142/92 Weight 95.8 kg Nicole Beal MD 06/14/2023 3:36 PM Addendum [facility] GASTROENTEROLOGY ONCOLOGY ESTABLISHED PATIENT VISIT [...] no new issues and last visit with electric dolly operator was about 6 months ago. She [...] Lymph 1.00 - 4.00 k/uL 2.12 Abs [place] <0.87 k/uL 0.72 Abs Eosin <0.46 k/uL [...] 6 months - recommend follow up with electric dolly operator Patient seen and discussed with Gastroenterology [...] (more content not included)... Normal [facility] ECG 12 lead ECGon 06-05-2023 ECG 12 lead ECG [facility] [place] [address] Electrocardiograph Report Signed Patient: Ben Cruz MR#: [id number] 3 : 1975 Acct:[id number] Age/Sex: 47 / F ADM Date: 06/05/23 Loc: EKGCARDIO Room: Type: [facility] Attending Dr: Jes Vieira MD Ordering Provider: eJs Vieira MD Date of Service: 06/05/2307/25/1308 ECG/ECG [...] previous ECGs available Confirmed by Demetri Shah ([id number]) on 06/07/2023 7:37:06 PM Referred By: Electronically Signed By:Demetri Shah Transcribed By: MUS Signed By Demetri Shah MD 06/07/231936 Normal [facility] CNCOon 05-12-2023 CNCO Letter Text Normal [facility] CNPNon 05-12-2023 [facility] Telephone [facility] ----- BEN CRUZ ([id number]) 1975 F Date Time Provider Department 05/12/23 GURPREET BECKWITH [facility] During your visit today, we recorded the following information about you: Marli Patino 05/12/2023 9:28 AM Signed Per Johann BIRD)-via email: This patient had GK in January and their follow up MRI and appointment was never scheduled. She needs an MRI at [facility] and follow up same day [...] on 05/12/23 [facility] Louise 05-11-2023 CNPN Telephone ([facility]) ----- BEN CRUZ ([id number]) 1975 F Date Time Provider Department 05/11/23 JOHANN HENRIQUEZ [facility] During your visit today, we recorded [...] Fully Assessed Reason for Visit: Patient Question [3837] Prescriptions as of 05/11/2023 - dexAMETHasone (DECADRON) [...] JOHANN HENRIQUEZ on 05/11/23 Normal [facility] Outside Colonoscopyon 2022 Outside Colonoscopy [id number]#[id number] [facility] Reminderson 03-09-2023 Reminders - From: Veronica Jack LPN To: N - Clinical; Sent: 03/09/2023 13:42:54 EST Show up: 02/06/2033 07:00:00 EST Subject: colonoscopy recall Due Date/Time: 03/08/2033 07:00:00 EST Reminder/Recall Patient due for screening colonoscopy 03/08/2033. [facility] Consent for Procedure/Surger yon 02-21-2023 Consent for Procedure/Surgery [id number]#[id number] [facility] Facesheeton 02-20-2023 Facesheet [id number]#[id number] [facility] Ambulatory Visit Summaryon 1 04-19-2022 Ambulatory [...] you for choosing us for your care. [facility] Louise [facility] BEN CRUZ ([id number]) 1975 F Date Time Provider Department 02/07/23 JOHANN HENRIQUEZ [facility] During your visit today, we recorded [...] Encounter Status:Closed by JOHANN HENRIQUEZ on 02/07/23 [facility] 02-06-2023 [facility] ----- BEN CRUZ ([id number]) 1975 F Date Time Provider Department 02/06/23 JOHANN HENRIQUEZ [facility] During your visit today, we recorded the following information about you: Johann Henriquez RN 02/06/2023 1:20 PM Signed Calling Ben for post-GKRS follow-up. Unable to reach at this time. Left voicemail. Johann Henriquez RN 02/07/2023 1:19 PM Signed 2nd attempt to reach out, patient unavailable. Will send Clear[employer] message with contact information to call if [...] on 02/07/23 [facility] Enrike 01-27-2023 CNOP Operative Note (Enc) ([facility]) ----- Encounter Status:Closed by GURPREET BECKWITH on 01/27/23 [facility] CNOP Operative Note (Enc) ([facility]) ----- Encounter Status:Closed by GURPREET BECKWITH on 01/27/23 [facility] Yael 01-27-2023 CNOV Office Visit ([facility] ) ----- BEN CRUZ ([id number]) 1975 F Date Time Provider Department 01/27/23 12:30 PM [facility] During your visit today, we recorded [...] (06/16) hemangioma of the liver. Saw Dr Bird 06 21 22: rec observation w FU imaging Saw Dr Bird 10 19 22: MRI brain on 10/17/2022 [...] (more content not included)... Normal [facility] CNOV Office Visit (NOGKCA ) ----- BEN CRUZ ([id number]) 1975 F Date Time Provider Department 01/27/23 [...] to mask SIM per order of Dr. G DO Beckwith Kaitlin Plank, RN 4835 Mask SIM completed. Ben Cruz returned to department for treatment # 1 of 1. Is patient receiving immunotherapy infusions: Not Applicable. Patient's Age: 47 Menstruation Status: [place] [facility] [place]: N/A test not performed QC: Yes, testing is valid (or protocol followed for invalid testing). Reference range: Normal Value = Negative for hCG. POC performed by: Gayle Acevedo RN 4472 4 mg Decadron PO given prior to GKRS per order of Dr. Virgil Beckwith 0946 GKRS start time. 1016 GKRS end time. 1025 Discharge instructions given to patient; instructions reviewed by this RN; patient/family verbalized understanding; patient discharged via/with BIGG Segura Kaitlin, RN 01/27/2023 8:35 AM Addendum [facility] Discharge Instructions As [...] a physician or hospital other than the [facility] with any problem related to [...] may your physician, Dr. Virgil Beckwith at [phone] Monday through Monday 8:00 am to 5:00 pm, or call the Gamma Knife nurse Monday through Monday 8:00 am to 4:00 pm at [phone]. In the evening or on weekends, call [phone] or toll-free [phone] and ask the mixer operator hot metal to page your neurosurgeon's resident nuclear control room operator. Referring Provider: GURPREET BECKWITH [[id number]] Allergies [...] [D32.9] 01/27/2023 Other instructions from your clinician: [facility] Discharge Instructions As with any surgery there are risks and potential side effects. Th (more content not included)... Normal [facility] CT BRAIN WO IVCONon 01-28-20 CT [...] were required COMPARISON: Concurrent brain MRI RESULT: Restaurant Cook (topogram) images: No additional findings. Post-operative change: [...] OF EXTRA-AXIAL ENHANCING TISSUE SEEN ON MRI Armament Aircraft Mechanic: PSCB Transcribe Date/Time: Jan 27 2023 8:21A Dictated by : ESTUARDO WHALEY MD This examination was interpreted and the report reviewed and electronically signed by: ESTUARDO WHALEY MD on Jan 27 2023 8:23AM EST [id number] Normal [facility] MRI BRAIN LOCAL W IVCONon MRI [...] FRONTAL LOBE, UNCHANGED GOING BACK TO 06/01/2021 Armament Aircraft Mechanic: PSCB Transcribe Date/Time: Jan 27 2023 8:08A Dictated by : ESTUARDO WHALEY MD This examination was interpreted and the report reviewed and electronically signed by: ESTUARDO WHALEY MD on Jan 27 2023 8:20AM EST [id number] Normal [facility] MRI BRAIN LOCALIZATION W IVC ONon 01-27-2023 [facility] Physician Referralon 023 Physician Referral [id number] Normal [facility] Physician Referralon 023 Physician Referral [id number] Normal [facility] CNOVSPon 12-22-2022 CNOVSP Visit (SP) Office (HEMCA3) ----- BEN CRUZ ([id number]) 1975 F Date Time Provider Department 12/22/22 [...] were negative. Declined an adjuvant trial in elizabeth. Baseline imaging today is negative CC: Melanoma [...] No Does patient want to see a Hem Marker? No (yes to any of above refer [...] for Encounter Date Provider Department Center 12/22/2022 [id number] [facility] [place] [facility] Prescriptions as [...] No Does patient want to see a Hem Marker? No (yes to any of above refer patient to schedulers for dietitian appointment) ) Does patient have any new or increased numbness or tingling of extremities? No Is patient interested in fertility information? No Does patient need any prescription refills? No Does patient have an advanced directive in place? No, Patient refused referral to Social Work or Resource Center Normal [facility] MRI BRAIN WO/W IVCONon 10-17 [facility] MRI BRAIN WO/W IVCONon 02-23 [facility] CBC AUTO DIFFon 11-18-2021 BASO # 0.0 103/ul Normal 0.0-0.1 [facility] Comment on above: Performed By: #### H FPFCBC #### [facility] [address] [place] [address] Dr. Arcenio Billy Basophils/100 WBC (Bld) 0.4 % Normal 0.2-2.0 [facility] Comment on above: Performed By: #### H FPFCBC #### [facility] [address] [place] [address] Dr. Arcenio Billy EO # 0.2 103/ul Normal 0.0-0.7 [facility] Comment on above: Performed By: #### H FPFCBC #### [facility] [address] [place] [address] Dr. Arcenio Billy Eosinophils/100 WBC (Bld) 3.0 % Normal 0.9-7.0 [facility] Comment on above: Performed By: #### H FPFCBC #### [facility] [address] [place] [address] Dr. Arcenio Billy Erythrocyte distribution width (RBC) [Ratio] 12.1 % Normal 11.0-15.0 [facility] Comment on above: Performed By: #### H FPFCBC #### [facility] [address] [place] [address] Dr. Arcenio Billy Hematocrit (Bld) [Volume fraction] 43.1 % Normal 36.0-48.0 [facility] Comment on above: Performed By: #### H FPFCBC #### [facility] [address] [place] [address] Dr. Arcenio Billy Hemoglobin (Bld) [Mass/Vol] 14.1 g/dL Normal 12.0-16.0 [facility] Comment on above: Performed By: #### H FPFCBC #### [facility] [address] [place] [address] Dr. Arcenio Billy IG # 0.01 10e3/ul Normal 0.00-0.03 [facility] Comment on above: Performed By: #### H FPFCBC #### [facility] [address] [place] [address] Dr. Arcenio Billy IG % 0.2 % Normal 0.0-0.5 [facility] Comment on above: Performed By: #### H FPFCBC #### [facility] [address] [place] [address] Dr. Arcenio Billy LYMPH # 1.9 103/ul Normal 1.2-3.8 [facility] Comment on above: Performed By: #### H FPFCBC #### [facility] [address] [place] [address] Dr. Arcenio Billy Lymphocytes/100 WBC (Bld) 35.7 % Normal 20.5-60.0 [facility] Comment on above: Performed By: #### H FPFCBC #### [facility] [address] [place] [address] Dr. Arcenio Billy MCH (RBC) [Entitic mass] 28.8 pg Normal 26.7-34.0 [facility] Comment on above: Performed By: #### H FPFCBC #### [facility] [address] [place] [address] Dr. Arcenio Billy MCHC (RBC) [Mass/Vol] 32.7 g/dL Normal 29.9-35.2 [facility] Comment on above: Performed By: #### H FPFCBC #### [facility] [address] [place] [address] Dr. Arcenio Billy MCV (RBC) [Entitic vol] 88.1 fL Normal 81.0-99.0 [facility] Comment on above: Performed By: #### H FPFCBC #### [facility] [address] [place] [address] Dr. Arcenio Billy MONO # 0.5 103/ul Normal 0.3-0.8 [facility] Comment on above: Performed By: #### H FPFCBC #### [facility] [address] [place] [address] Dr. Arcenio Billy Monocytes/100 WBC (Bld) 9.9 % Normal 1.7-12.0 [facility] Comment on above: Performed By: #### H FPFCBC #### [facility] [address] [address] [address] Arcenio Billy NEUT # 2.7 103/ul Normal 1.4-6.5 [facility] Comment on above: Performed By: #### H FPFCBC #### [facility] [address] [address] [address] Arcenio Billy Neutrophils/100 WBC (Bld) 50.8 % Normal 43.0-75.0 [facility] Comment on above: Performed By: #### H FPFCBC #### [facility] [address] [address] [address] Arcenio Billy Platelet mean volume (Bld) [Entitic vol] 8.9 fL Critically low 9.5-13.5 [facility] Comment on above: Performed By: #### H FPFCBC #### [facility] [address] [address] [address] Arcenio Billy PLT 271 103/ul Normal 150-450 [facility] Comment on above: Performed By: #### H FPFCBC #### [facility] [address] [address] [address] Arcenio Billy RBC 4.89 106/ul Normal 4.20-5.40 [facility] Comment on above: Performed By: #### H FPFCBC #### [facility] [address] [address] [address] Arcenio Billy WBC 5.3 103/ul Normal 4.0-11.0 [facility] Comment on above: Performed By: #### H FPFCBC #### [facility] [address] [place] [address] Dr. Arcenio Billy HEALTHFAIR PROFILEon 022 Albumin [Mass/Vol] 3.7 g/dL Normal 3.4-5.0 [facility] Comment on above: Performed By: #### H FPF #### [facility] [address] [address] [address] Arcenio Billy Albumin/Globulin [Mass ratio] 1.1 {ratio} Normal [facility] Comment on above: Performed By: #### H FPF #### [facility] [address] [address] [address] Arcenio Billy ALP [Catalytic activity/Vol] 60 U/L Normal 46-116 [facility] Comment on above: Performed By: #### H FPF #### [facility] [address] [address] [address] Arcenio Billy ALT [Catalytic activity/Vol] 47 U/L Normal 14-59 [facility] Comment on above: Performed By: #### H FPF #### [facility] [address] [address] [address] Arcenio Billy AST [Catalytic activity/Vol] 25 U/L Normal 15-37 [facility] Comment on above: Performed By: #### H FPF #### [facility] [address] [place] [address] Dr. Arcenio Billy Bilirubin [Mass/Vol] 0.5 mg/dL Normal 0.2-1.0 [facility] Comment on above: Performed By: #### H FPF #### [facility] [address] [address] [address] Arcenio Billy Calcium [Mass/Vol] 8.8 mg/dL Normal 8.5-10.1 [facility] Comment on above: Performed By: #### H FPF #### [facility] [address] [address] [address] Arcenio Billy Chloride [Moles/Vol] 103 mmol/L Normal 98-107 [facility] Comment on above: Performed By: #### H FPF #### [facility] [address] [address] [address] Arcenio Billy CHOL-HDL RATIO NORM SEE BELOW Normal [facility] Comment on above: Result Comment: 3.3 - 4.4 LOW RISK 4.4 - 7.1 AVERAGE RISK 7.1 - 11.0 MODERATE RISK >11.0 HIGH RISK Performed By: #### H FPF #### [facility] [address] [place] [address] Dr. Arcenio Billy Cholesterol [Mass/Vol] 352 mg/dL Critically high <=200 [facility] Comment on above: Performed By: #### H FPF #### [facility] [address] [address] [address] Arcenio Billy Cholesterol in HDL [Mass/Vol] 34 mg/dL Critically low 40-60 [facility] Comment on above: Performed By: #### H FPF #### [facility] [address] [address] [address] Arcenio Billy Cholesterol in LDL [Mass/Vol] 274.2 mg/dL Normal [facility] Comment on above: Performed By: #### H FPF #### [facility] [address] [address] [address] Arcenio Billy Cholesterol.total/ Cholesterol in HDL [Mass ratio] 10.4 {ratio} Normal [facility] Comment on above: Performed By: #### H FPF #### [facility] [address] [address] [address] Arcenio Billy CO2 [Moles/Vol] 25.7 mmol/L Normal 21.0-32.0 [facility] Comment on above: Performed By: #### H FPF #### [facility] [address] [place] [address] Dr. Arcenio Billy Creatinine [Mass/Vol] 0.91 mg/dL Normal 0.55-1.02 [facility] Comment on above: Performed By: #### H FPF #### [facility] [address] [address] [address] Arcenio Billy Globulin (S) [Mass/Vol] 3.4 g/dL Normal [facility] Comment on above: Performed By: #### H FPF #### [facility] [address] [address] [address] Arcenio Billy Glucose [Mass/Vol] 91 mg/dL Normal 74-106 [facility] Comment on above: Performed By: #### H FPF #### [facility] [address] [address] [address] Arcenio Billy HDL NORMAL > or = 60 mg/dl - LO W CARDIOVASCULAR RISK <40 mg/dl - HIGH CARDIOVASCULAR RISK Normal [facility] Comment on above: Performed By: #### H FPF #### [facility] [address] [address] [address] Arcenio Billy LDL CALC NORMAL SEE BELOW Normal [facility] Comment on above: Result Comment: <100 mg/dl OPTIMAL 100 - 129 mg/dl NEAR OR ABOVE OPTIMAL 130 - 159 mg/dl BORDERLINE HIGH 160 - 189 mg/dl HIGH >190 mg/dl VERY HIGH Performed By: #### H FPF #### [facility] [address] [address] [address] Arcenio Billy Potassium [Moles/Vol] 4.1 mmol/L Normal 3.5-5.1 [facility] Comment on above: Performed By: #### H FPF #### [facility] [address] [address] [address] Arcenio Billy Protein [Mass/Vol] 7.1 g/dL Normal 6.4-8.2 [facility] Comment on above: Performed By: #### H FPF #### [facility] [address] [address] [address] Arcenio Billy Sodium [Moles/Vol] 139 mmol/L Normal 136-145 [facility] Comment on above: Performed By: #### H FPF #### [facility] [address] [address] [address] Arcenio Billy Triglyceride [Mass/Vol] 219 mg/dL Critically high <=150 [facility] Comment on above: Performed By: #### H FPF #### [facility] [address] [address] [address] Arcenio Billy TSH 1.717 uIU/mL Normal 0.358-3.740 [facility] Comment on above: Performed By: #### H FPF #### [facility] [address] [address] [address] Arcenio Billy Urea nitrogen [Mass/Vol] 11.0 mg/dL Normal 7.0-18.0 [facility] Comment on above: Performed By: #### H FPF #### [facility] [address] [address] [address] Arcenio Billy Urea nitrogen/Creatinin e [Mass ratio] 12.1 mg/mg Normal [facility] Comment on above: Performed By: #### H FPF #### [facility] [address] [address] [address] Arcenio Billy VLDL CALC 43.8 mg/dL Normal [facility] Comment on above: Performed By: #### H FPF #### [facility] [address] [place] [address] Dr. Arcenio Billy PAP ACOG PANEL 2: 30 to 65on 09-19-2021 . . Normal [facility] Comment on above: Result Comment: Perf ormed at: WB Performed By: #### [id number] #### [facility] [address] [place] [address] Dr. Arcenio Billy Age Gdln ACOG Testing 30-65 Normal [facility] Comment on above: Performed By: #### [id number] #### [facility] [address] [place] [address] Dr. Arcenio Billy DIAGNOSIS: Comment Normal [facility] Comment on above: Result Comment: NEGA TIVE FOR INTRAEPITHELIAL LESION OR MALIGNANCY. FUNGAL ORGANISMS MORPHOLOGICALLY CONSISTENT WITH MOSES SPECIES ARE PRESENT. Performed at: WB Performed By: #### [id number] #### [facility] [address] [place] [address] Dr. Arcenio Billy HPV Aptima Negative Normal Negative [facility] Comment on above: Result Comment: This nucleic acid amplification test detects fourteen high-risk HPV types (16,18,31,33,35,39,45,51,52,56,58,59,66,68) without differentiation. Performed at: =G Performed By: #### [id number] #### [facility] [address] [place] [address] Dr. Arcenio Billy Methodology: Comment Normal [facility] Comment on above: Result Comment: This liquid based ThinPrep(R) pap test was screened with the use of an image guided system. Performed at: WB Performed By: #### [id number] #### [facility] [address] [address] [address] Arcenio Billy Note: Comment Normal [facility] Comment on above: Result Comment: The Pap smear is a screening test designed to aid in the detection of premalignant and malignant conditions of the uterine cervix. It is not a diagnostic procedure and should not be used as the sole means of detecting cervical cancer. Both false-positive and false-negative reports do occur. . Performed at: WB Performed By: #### [id number] #### [facility] [address] [address] [address] Arcenio Billy Performed by: Comment Normal [facility] Comment on above: Result Comment: Bronson Cordero, Internet Salesperson (ASCP) Performed at: WB Performed By: #### [id number] #### [facility] [address] [address] [address] Arcenio Billy Specimen adequacy: Comment Normal [facility] Comment on above: Result Comment: Sati sfactory for evaluation. No endocervical component is identified. Performed at: WB Performed By: #### [id number] #### [facility] [address] [address] [address] Arcenio Billy MG MAMM SCREEN 3D JULIO CÉSAR CADon 09-08-2021 MG MAMM SCREEN 3D JULIO CÉSAR CAD Patient: BEN CRUZ Exam Date: 09/08/2021 : 1975 Gender:F Ordering : DR CHELITA VILLANUEVA . Admission #: [id number] Family : Order #: [id number] CLICK HERE TO VIEW EXAM RADIOLOGY REPORT [...] pancreatic cancer at age 71. LOCATION: [facility] BREAST COMPOSITION: Scattered areas fibroglandular density. FINDINGS: [...] MD on 09/08/2021 at 11:41 Normal [facility] MRI BRAIN WO/W IVCONon 08-23 [facility] MRI LIVER WO/W IVCONon 06-16 [facility] MRI BRAIN WO/W IVCONon 06-[address] [facility] [address] Chest W contrast Juanjo IMPRESSION: 1. No evidence of intrathoracic metastases. 2. More conspicuous diffuse thickening of esophageal wall suggestive of an esophagitis. If clinically indicated, consider direct visualization. 3. Persistent diffuse hepatic fatty infiltration. New subtle 4 cm high attenuation area in the right hepatic lobe most likely an area of focal fatty sparing or perfusion anomaly. Consider confirmation via interval follow-up or via MRI. Transcribe Date/Time: May 13 2021 9:52A Dictated by: DARIUS WILKERSON MD This examination was interpreted and the report reviewed and electronically signed by: DARIUS WILKERSON MD on May 13 2021 11:16AM EST Thank you for allowing us to participate in the care of your patient. Should there be any questions regarding this interpretation, please call [phone]. If you are unable to reach us at the number above, please feel free to contact [facility] at [phone]. DIVISION OF RADIOLOGY * * *Final Report* * * DATE OF EXAM: May 13 2021 9:00AM [facility] 0539 - CT CHEST W IVCON / PROCEDURE REASON: multiple diagnoses * * * * Physician Interpretation * * * * RESULT: EXAMINATION: CHEST CT WITH CONTRAST CLINICAL HISTORY: Chest wall pain, Shortness of breath, Melanoma, stage III, positive sentinel node, symptomatic, workup Technique: Spiral CT acquisition of the chest from the thoracic inlet to the upper abdomen following IV contrast. MQ: CTCW_6 Contrast: 50 mL Omnipaque [address] Radiation dose: Integrated Dose-length product (DLP) for this visit = 382 mGy*cm CT Dose Reduction Employed: Automated exposure control (AEC) Comparison: 01/24/19 RESULT: Limitations: None. Lines, tubes, and devices: None. Lung parenchyma and airways: No consolidation. No suspicious pulmonary nodule. The central airways are patent. Pleural space: No pleural effusion. No pleural thickening. Lower neck, lymph nodes, and mediastinum: The imaged thyroid gland is normal. No lymphadenopathy in the supraclavicular, axillary, mediastinal, or hilar regions. Heart, pericardium, and thoracic vessels: The thoracic aorta and main pulmonary artery are normal in caliber. The cardiac chambers are normal in size. No coronary artery atherosclerotic calcifications are noted, although the study is not optimized for coronary assessment. No pericardial effusion or thickening. More conspicuous diffuse thickening of the esophageal wall is noted suggestive of an esophagitis. Bones and soft tissues: Surgical clips are noted in left axilla. Hemangioma is noted in T7 vertebral body. A bone island is noted in the right proximal humerus. No new osseous abnormalities. Upper abdomen: Diffuse hepatic fatty infiltration. No evidence of an adrenal mass. New subtle 4 cm high attenuation area in the right hepatic lobe (2:159) most likely an area of focal fatty sparing or perfusion anomaly. Restaurant Cook (topogram) images: No additional findings. DIVISION OF RADIOLOGY Provider, [facility] - 05/13/2021 * * *Final Report* * * DATE OF EXAM: May 13 2021 9:00AM [facility] 0539 - CT CHEST W IVCON / PROCEDURE REASON: multiple diagnoses * * * * Physician Interpretation * * * * RESULT: EXAMINATION: CHEST CT WITH CONTRAST CLINICAL HISTORY: Chest wall pain, Shortness of breath, Melanoma, stage III, positive sentinel node, symptomatic, workup Technique: Spiral CT acquisition of the chest from the thoracic inlet to the upper abdomen following IV contrast. MQ: CTCW_6 Contrast: 50 mL Omnipaque [address] Radiation dose: Integrated Dose-length product (DLP) for this visit = 382 mGy*cm CT Dose Reduction Employed: Automated exposure control (AEC) Comparison: 01/24/19 RESULT: Limitations: None. Lines, tubes, and devices: None. Lung parenchyma and airways: No consolidation. No suspicious pulmonary nodule. The central airways are patent. Pleural space: No pleural effusion. No pleural thickening. Lower neck, lymph nodes, and mediastinum: The imaged thyroid gland is normal. No lymphadenopathy in the supraclavicular, axillary, mediastinal, or hilar regions. Heart, pericardium, and thoracic vessels: The thoracic aorta and main pulmonary artery are normal in caliber. The cardiac chambers are normal in size. No coronary artery atherosclerotic calcifications are noted, although the study is not optimized for coronary assessment. No pericardial effusion or thickening. More conspicuous diffuse thickening of the esophageal wall is noted suggestive of an esophagitis. Bones and soft tissues: Surgical clips are noted in left axilla. Hemangioma is noted in T7 vertebral body. A bone island is noted in the right proximal humerus. No new osseous abnormalities. Upper abdomen: Diffuse hepatic fatty infiltration. No evidence of an adrenal mass. New subtle 4 cm high attenuation area in the right hepatic lobe (2:159) most likely an area of focal fatty sparing or perfusion anomaly. Restaurant Cook (topogram) images: No additional findings. IMPRESSION IMPRESSION: 1. No evidence of intrathoracic metastases. 2. More conspicuous diffuse thickening of esophageal wall suggestive of an esophagitis. If clinically indicated, consider direct visualization. 3. Persistent diffuse hepatic fatty infiltration. New subtle 4 cm high attenuation area in the right hepatic lobe most likely an area of focal fatty sparing or perfusion anomaly. Consider confirmation via interval follow-up or via MRI. Transcribe Date/Time: May 13 2021 9:52A Dictated by: DARIUS WILKERSON MD This examination was interpreted and the report reviewed and electronically signed by: DARIUS WILKERSON MD on May 13 2021 11:16AM EST Thank you for allowing us to participate in the care of your patient. Should there be any questions regarding this interpretation, please call [phone]. If you are unable to reach us at the number above, please feel free to contact [facility] at [phone]. [facility] Radiology Study observation (narrative) [facility] CT Chest W contrast IVOrdere d By: [facility] Provider on 05-13-2021 [facility] Vital Signs Date Time Vital Sign Value Performing Clinician Facility 02-19-2024 15:49-0500 Body height 162.56 cm [facility] 02-19-2024 15:49-0500 Body mass index (BMI) [Ratio] 38.9 kg/m2 [facility] 02-19-2024 15:49-0500 Body weight 102.96 kg [facility] 02-19-2024 15:49-0500 Diastolic blood pressure 86 mm[Hg] [facility] 02-19-2024 15:49-0500 Heart rate 87 /min [facility] 02-19-2024 15:49-0500 Respiratory rate 18 /min [facility] 02-19-2024 15:49-0500 SaO2% (BldA) [Mass fraction] 95 % [facility] [facility] 02-19-2024 15:49-0500 Systolic blood pressure 136 mm[Hg] [facility] 12-14-2023 10:46-0400 Body height 162.6 cm Debbie Echeverria MD Work Phone: [facility] 12-14-2023 10:46-0400 Body mass index (BMI) [Ratio] 38.22 kg/m2 Debbie Echeverria MD Work Phone: [facility] 12-14-2023 10:46-0400 Body temperature 97.59 [degF] Debbie Echeverria MD Work Phone: [facility] 12-14-2023 10:46-0400 Body weight 101 kg Debbie Echeverria MD Work Phone: [facility] 12-14-2023 10:46-0400 Diastolic blood pressure 85 mm[Hg] Debbie Echeverria MD Work Phone: [facility] 12-14-2023 10:46-0400 Heart rate 85 /min Debbie Echeverria MD Work Phone: [facility] 12-14-2023 10:46-0400 Respiratory rate 20 /min Debbie Echeverria MD Work Phone: [facility] 12-14-2023 10:46-0400 SaO2% (BldA) [Mass fraction] 97 % Debbie Echeverria MD Work Phone: [facility] 12-14-2023 10:46-0400 Systolic blood pressure 140 mm[Hg] Debbie Echeverria MD Work Phone: [facility] 09-12-2023 11:41-0400 Body mass index (BMI) [Ratio] 35.63 kg/m2 Abdiaziz Bunch MAILROOM COORDINATOR.FLOWER GRADER Work Phone: [facility] 09-12-2023 11:41-0400 Body weight 97 kg Abdiaziz Bunch MAILROOM COORDINATOR.FLOWER GRADER Work Phone: [facility] 09-12-2023 11:41-0400 Diastolic blood pressure 86 mm[Hg] Abdiazizmerary Bunch MAILROOM COORDINATOR.FLOWER GRADER Work Phone: [facility] 09-12-2023 11:41-0400 Heart rate 81 /min Abdiazizmerary Bunch MAILROOM COORDINATOR.FLOWER GRADER Work Phone: [facility] 09-12-2023 11:41-0400 SaO2% (BldA) [Mass fraction] 99 % Abdiaziz Bunch MAILROOM COORDINATOR.FLOWER GRADER Work Phone: [facility] 09-12-2023 11:41-0400 Systolic blood pressure 141 mm[Hg] Abdiaziz Bunch MAILROOM COORDINATOR.FLOWER GRADER Work Phone: [facility] 07-03-2023 10:59-0400 Body height 162.56 cm MD Lissett Vega Work Phone: [facility] 06-13-2023 09:34-0400 Body temperature 97.59 [degF] Debbie Echeverria MD Work Phone: [facility] 06-13-2023 09:34-0400 Body weight 95.8 kg Debbie Echeverria MD Work Phone: [facility] 06-13-2023 09:34-0400 Diastolic blood pressure 92 mm[Hg] Debbie Echeverria MD Work Phone: [facility] 06-13-2023 09:34-0400 Heart rate 79 /min Debbie Echeverria MD Work Phone: [facility] 06-13-2023 09:34-0400 Respiratory rate 20 /min Debbie Echeverria MD Work Phone: [facility] 06-13-2023 09:34-0400 SaO2% (BldA) [Mass fraction] 96 % Debbie Echeverria MD Work Phone: [facility] 06-13-2023 09:34-0400 Systolic blood pressure 142 mm[Hg] Debbie Echeverria MD Work Phone: [facility] 06-05-2023 13:23-0500 Body height 162.56 cm MD Lissett Vega Work Phone: [facility] 06-05-2023 13:23-0500 Body mass index (BMI) [Ratio] 35.6 kg/m2 MD Lissett Vega Work Phone: [facility] 06-05-2023 13:23-0500 Body weight 94.34 kg MD Lissett Vega Work Phone: [facility] 06-05-2023 13:23-0500 Diastolic blood pressure 84 mm[Hg] MD Lissett Vega Work Phone: [facility] 06-05-2023 13:23-0500 Heart rate 88 /min MD Lissett Vega Work Phone: [facility] 06-05-2023 13:23-0500 Respiratory rate 18 /min MD Lissett Vega Work Phone: [facility] 06-05-2023 13:23-0500 SaO2% (BldA) [Mass fraction] 95 % MD Lissett Vega Work Phone: [facility] 06-05-2023 13:23-0500 Systolic blood pressure 122 mm[Hg] MD Lissett Vega Work Phone: [facility] 03-16-2023 13:45-0500 Body height 162.56 cm Lissett Vega Other [employer] Other 03-16-2023 13:45-0500 Body mass index (BMI) [Ratio] 34.5 kg/m2 Lissett Vega Other [employer] Other 03-16-2023 13:45-0500 Body temperature 99.1 [degF] Lissett Vega Other [employer] Other 03-16-2023 13:45-0500 Body weight 91.17 kg Lissett Vega Other [employer] Other 03-16-2023 13:45-0500 Diastolic blood pressure 88 mm[Hg] Lissett Vega Other [employer] Other 03-16-2023 13:45-0500 SaO2% (BldA) [Mass fraction] 98 % Lissett Vega Other [employer] Other 03-16-2023 13:45-0500 Systolic blood pressure 128 mm[Hg] Lissett Vega Other [employer] Other 02-17-2023 14:47-0500 Blood Pressure Location Debbie [facility] [facility] 02-17-2023 14:47-0500 Diastolic blood pressure 84 mm[Hg] Debbie NILL [facility] [place] 02-17-2023 14:47-0500 Heart rate 76 /min Debbie NILL [facility] [place] 02-17-2023 14:47-0500 Respiratory rate 16 /min Debbie NILL [facility] [place] 02-17-2023 14:47-0500 Systolic blood pressure 128 mm[Hg] Debbie NILL [facility] [place] 09-21-2022 11:30-0400 Body height 162.56 cm Lissett Vega Other [employer] Other 09-21-2022 11:30-0400 Body mass index (BMI) [Ratio] 36.56 kg/m2 Lissett Vega Other [employer] Other 09-21-2022 11:30-0400 Body weight 96.62 kg Lissett Vega Other [employer] Other 09-21-2022 11:30-0400 Diastolic blood pressure 84 mm[Hg] Lissett Vega Other [employer] Other 09-21-2022 11:30-0400 Systolic blood pressure 137 mm[Hg] Lissett Vega Other [employer] Other 06-21-2022 10:32-0400 Body height 165 cm Debbie Echeverria MD Work Phone: [facility] 06-21-2022 10:32-0400 Body temperature 96.8 [degF] Debbie Echeverria MD Work Phone: [facility] 06-21-2022 10:32-0400 Body weight 98.79 kg Debbie Echeverria MD Work Phone: [facility] 06-21-2022 10:32-0400 Diastolic blood pressure 82 mm[Hg] Debbie Echeverria MD Work Phone: [facility] 06-21-2022 10:32-0400 Heart rate 74 /min Debbie Echeverria MD Work Phone: [facility] 06-21-2022 10:32-0400 Respiratory rate 18 /min Debbie Echeverria MD Work Phone: [facility] 06-21-2022 10:32-0400 SaO2% (BldA) [Mass fraction] 96 % Debbie Echeverria MD Work Phone: [facility] 06-21-2022 10:32-0400 Systolic blood pressure 139 mm[Hg] Debbie Echeverria MD Work Phone: [facility] 12-21-2021 13:24-0400 Body temperature 98.6 [degF] Debbie Echeverria MD Work Phone: [facility] 12-21-2021 13:24-0400 Body weight 102.15 kg Debbie Echeverria MD Work Phone: [facility] 12-21-2021 13:24-0400 Diastolic blood pressure 82 mm[Hg] Debbie Echeverria MD Work Phone: [facility] 12-21-2021 13:24-0400 Heart rate 79 /min Debbie Echeverria MD Work Phone: [facility] 12-21-2021 13:24-0400 Respiratory rate 20 /min Debbie Echeverria MD Work Phone: [facility] 12-21-2021 13:24-0400 SaO2% (BldA) [Mass fraction] 100 % Debbie Echeverria MD Work Phone: [facility] 12-21-2021 13:24-0400 Systolic blood pressure 145 mm[Hg] Debbie Echeverria MD Work Phone: [facility] Encounters Encounter Date Encounter Type Care Provider Facility Start: 02-19-2024 End: 02-19-2024 ambulatory [facility] Work Phone: Start: 02-19-2024 End: 02-19-2024 Patient encounter procedure [facility] Physician [facility] Card[facility] Work Phone: Start: 12-14-2023 End: 12-14-2023 ambulatory Debbie Echeverria MD Work Phone: Hematology/Oncology Comment on above: Malignant melanoma o f torso excluding breast (HCC) (Primary Dx) Start: 12-14-2023 End: 12-14-2023 Patient encounter procedure Debbie Echeverria MD Work Phone: Hematology/Oncology Start: 10-02-2023 End: 10-02-2023 ambulatory MD Lissett Vega Work Phone: [facility] Work Phone: Start: 10-02-2023 End: 10-02-2023 Departed Referred MD Lissett Vega Work Phone: [facility] Start: 09-12-2023 End: 09-12-2023 ambulatory ABDIAZIZ BUNCH Facility:[facility] Start: 09-12-2023 End: 09-12-2023 Patient encounter procedure Abdiaziz Wang MAILROOM COORDINATOR.FLOWER GRADER Work Phone: Neurosurgery Comment on above: Benign neoplasm of m eninges (HCC) (Primary Dx) Start: 09-12-2023 End: 09-12-2023 ambulatory GURPREET BECKWITH Facility:[facility] Start: 09-12-2023 End: 09-12-2023 Subsequent hospital visit by physician Mri [facility] (Lg Bore/1.5t) Radiology MRI Comment on above: Benign neoplasm of m eninges (HCC) [D32.9] Start: 09-08-2023 Telephone encounter Abdiaziz morgan MAILROOM COORDINATOR.FLOWER GRADER Work Phone: [facility] Start: 09-05-2023 Non-patient / Non-visit MD Lisa Vega Work Phone: [facility] Physician [facility] Work Phone: Start: 09-05-2023 End: 09-05-2023 ambulatory HANS COLBY Not Available Start: 07-03-2023 End: 07-03-2023 ambulatory MD Lissett Vega Work Phone: [facility] Work Phone: Start: 07-03-2023 End: 07-03-2023 Patient encounter procedure MD Lissett Vega Work Phone: [facility] Physician [facility] Work Phone: Start: 06-13-2023 End: 06-13-2023 ambulatory Debbie Echeverria MD Work Phone: Hematology/Oncology Comment on above: Malignant melanoma o f torso excluding breast (HCC) (Primary Dx) Start: 06-13-2023 End: 06-13-2023 Patient encounter procedure Debbie Echeverria MD Work Phone: [facility] Start: 06-05-2023 End: 06-05-2023 ambulatory Jes Haywoodoroge Facility:[facility] Start: 06-05-2023 End: 06-05-2023 Patient encounter procedure MD Lissett Vega Work Phone: [facility] Physician [facility] Cardiology Work Phone: Start: 06-05-2023 End: 06-05-2023 ambulatory HANS MCDONALDO Not Available Start: 06-02-2023 Patient encounter status MD Anabel Vega Work Phone: [facility] Start: 05-12-2023 Telephone encounter Gurpreet malin DO, PhD Work Phone: [facility] Comment on above: Appointment (Abdiaziz sheth) Start: 03-23-2023 End: 03-23-2023 ambulatory Lissett Vega Other [employer] Other Start: 03-23-2023 Telephone encounter Lissett Vega [facility] Start: 03-16-2023 End: 03-16-2023 ambulatory Lissett Vega Other [employer] Other Start: 03-16-2023 Office outpatient vi sit 15 minutes Lissett Vega [facility] Start: 03-08-2023 End: 03-09-2023 ambulatory Debbie DE LOS SANTOS Facility:CD:[id number] Start: 02-17-2023 End: 02-18-2023 ambulatory Debbie R NILFelix Facility:[facility] Start: 02-17-2023 End: 02-17-2023 Patient encounter procedure Debbie DE LOS SANTOS [facility] Surgery Nill/Said [place] Start: 02-07-2023 Telephone encounter Johann Henriquez RN [facility] Start: 02-06-2023 Telephone encounter Johann Henriquez RN [facility] Comment on above: Gamma Knife Follow-u p Start: 01-27-2023 End: 01-27-2023 Orders Only Gurpreet Beckwith DO, PhD Work Phone: Neurosurgery Comment on above: Benign neoplasm of m eninges (HCC) (Primary Dx) Benign neoplasm of m eninges (HCC) [D32.9] Start: 01-27-2023 Patient encounter procedure Burak Prakash MD Work Phone: [facility] Start: 01-27-2023 Radiation Oncology Note Susi Prakash MD Work Phone: [facility] Comment on above: Procedure Treatment Planning Start: 01-24-2023 ambulatory Debbie DE LOS SANTOS Facility: [facility] Start: 01-23-2023 End: 01-23-2023 ambulatory Lissett Vega Other [employer] Other Start: 01-23-2023 Telephone encounter Lissett Vega [facility] Start: 12-22-2022 End: 12-22-2022 ambulatory DEBBIE ECHEVERRIA Facility:[facility] Start: 11-15-2022 Telephone encounter Betzy liao RN Work Phone: [facility] Comment on above: Child Development Associate Teacher - O ther (Schedule gamma knife 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/) Start: 11-04-2022 End: 11-04-2022 ambulatory Gurpreet Beckwith DO, PhD Work Phone: [facility] Comment on above: Benign neoplasm of m eninges (HCC) (Primary Dx) Start: 11-04-2022 End: 11-04-2022 Telemedicine consultation with patient Gurpreet Beckwith DO, PhD Work Phone: [facility] Start: 10-31-2022 End: 10-31-2022 ambulatory Lissett Vega Other [employer] Other Start: 10-31-2022 Telephone encounter Lissett Vega [facility] Start: 10-19-2022 End: 10-19-2022 ambulatory Derian Bird MD Work Phone: Radiation Oncology Comment on above: Meningioma (HCC) (Pr imary Dx) Start: 10-19-2022 End: 10-19-2022 Telemedicine consultation with patient Derian Bird MD Work Phone: [facility] Start: 10-18-2022 End: 10-18-2022 ambulatory Trista Bonilla KHARI.FLOWER GRADER Work Phone: Radiation Oncology Comment on above: Meningioma (HCC) (Pr imary Dx) Start: 10-18-2022 End: 10-18-2022 Telemedicine consultation with patient Trista Bonilla KHARI.FLOWER GRADER Work Phone: [facility] Start: 10-17-2022 End: 10-17-2022 Subsequent hospital visit by physician [facility] (Lg Bore/1.5t) Radiology MRI Comment on above: Benign neoplasm of m eninges (HCC) [D32.9] Start: 09-23-2022 End: 09-23-2022 ambulatory Lissett Vega Other [employer] Other Start: 09-23-2022 Telephone encounter Lissett Vega [facility] Start: 09-21-2022 End: 09-21-2022 ambulatory Lissett Vega Other [employer] Other Start: 09-21-2022 Encounter for other preprocedural examination Lissett Vega [facility] Start: 09-21-2022 Office outpatient vi sit 25 minutes Lissett Vega [facility] Start: 08-31-2022 Telephone encounter Derian osborn MD Work Phone: Radiation Oncology Comment on above: Child Development Associate Teacher - O ther Start: 06-21-2022 End: 06-21-2022 ambulatory Debbie Echeverria MD Work Phone: Hematology/Oncology Comment on above: Malignant melanoma o f torso excluding breast (HCC) (Primary Dx) Start: 06-21-2022 End: 06-21-2022 Patient encounter procedure Debbie Echeverria MD Work Phone: [facility] Start: 03-16-2022 End: 03-16-[address] LISSETT VEGA Facility:[facility] Start: 02-28-2022 End: 02-28-2022 ambulatory Trista Bonilla APRN.FLOWER GRADER Work Phone: Radiation Oncology Comment on above: Benign neoplasm of m eninges (HCC) (Primary Dx) Start: 02-28-2022 End: 02-28-2022 Telemedicine consultation with patient Trista Bonilla APRN.FLOWER GRADER Work Phone: [facility] Start: 02-23-2022 End: 02-23-2022 Subsequent hospital visit by physician [facility] (Lg Bore/1.5t) Radiology MRI Comment on above: Benign neoplasm of m eninges (HCC) [D32.9] Start: 12-21-2021 End: 12-21-2021 ambulatory Debbie Echeverria MD Work Phone: Hematology/Oncology Comment on above: Malignant melanoma o f torso excluding breast (HCC) (Primary Dx) Start: 12-21-2021 End: 12-21-2021 Patient encounter procedure Debbie Echeverria MD Work Phone: [facility] Start: 12-15-2021 End: 12-15-[address] LISSETT VEGA Facility:[facility] Start: 12-11-2021 Gynecological examination normal Lissett Vega Other [employer] Other Start: 12-01-2021 Telephone encounter Debbie Echeverria MD Work Phone: Hematology/Oncology Comment on above: Child Development Associate Teacher - O ther Start: 11-18-2021 End: 11-19-[address] LISSETT VEGA Facility:[facility] Start: 09-14-2021 End: 09-14-[address] CHELITA VILLANUEVA . Facility:[facility] Start: 09-08-2021 End: 09-09-[address] CHELITA VILLANUEVA . Facility:[facility] Start: 08-23-2021 End: 08-23-2021 ambulatory Derian Bird MD Work Phone: Radiation Oncology Comment on above: Benign neoplasm of m eninges (HCC) Start: 08-23-2021 End: 08-23-2021 Telemedicine consultation with patient Derian Bird MD Work Phone: [facility] Start: 08-23-2021 End: 08-23-2021 Subsequent hospital visit by physician [facility] (Lg Bore/1.5t) Radiology MRI Comment on above: Benign neoplasm of m eninges (HCC) [D32.9] Start: 06-16-2021 End: 06-16-2021 Subsequent hospital visit by physician [facility] (Lg Bore/1.5t) Radiology MRI Comment on above: Malignant 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] Start: 06-01-2021 End: 06-01-2021 Subsequent hospital visit by physician [facility] (Lg Bore/1.5t) Radiology MRI Comment on above: Malignant 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] Start: 05-13-2021 End: 05-13-2021 Subsequent hospital visit by physician Arrival Time Radiology Work Phone: Radiology Pet [facility] Comment on above: Malignant melanoma o f [...] Mri brain brain stem w/o w/contrast material Derian Bird MD Work Phone: Start: 12-21-2021 Adult depression scr eening assessment Debbie Echeverria MD Work Phone: Start: 08-23-2021 Mri brain brain stem w/o w/contrast material Derian Bird MD Work Phone: Start: 08-22-2021 Adult depression scr eening assessment Derian Bird MD Work Phone: Start: 06-16-2021 Mri abdomen w/o & w/contrast material Debbie Echeverria MD Work Phone: Start: 06-01-2021 Mri brain brain stem w/o w/contrast material Debbie Echeverria MD Work Phone: Start: 05-13-2021 Ct thorax w/contrast material Debbie Echeverria MD Work Phone: Arthroscopy of shoulder Kalen orosco NILL section Debbie NIL L Excision of ganglion of wrist Debbie NILL Excision of melanoma Debbie NILL Comment on above: left shoulder Fasciotomy of foot Debbie PARK Hysterectomy Lissett Vega Other Laminectomy Debbie NILL Screening for malign ant neoplasm of breast Lissett Gary Other Stereotactic destruc tion of lesion using gamma radiation Debbie NILL Vaginal hysterectomy Debbie NILL Plan of Treatment Date Care Activity Detail Author Start: 12-14-2023 End: 12-14-2023 Follow-up encounter 12/14/2023 10:30 AM EDT Visit (SP) Office Hematology/Oncology [address] [place] [address] Debbie Echeverria MD [address] [place] [address] FOLLOW UP Hematology/Oncology Comment on above: FOLLOW UP Start: 12-03-2023 Covid-19 Vaccine ( season) Covid-19 Vaccine () [facility] Start: 12-03-2023 Covid-19 Vaccine () Covid-19 Vaccine () [facility] Start: 12-03-2023 Influenza vaccination [facility] Start: 09-12-2023 End: 09-12-2023 Patient encounter procedure 09/12/2023 11:45 AM EDT Office Visit Neurosurgery [address] [place] [address] Abdiaziz Bunch APRN.FLOWER GRADER [address] [place] [address] gamma knife follow up Neurosurgery Comment on above: gamma knife follow u p Start: 09-12-2023 End: 09-12-2023 Patient encounter procedure 09/12/2023 10:40 AM EDT Appointment Radiology MRI [address] [place] [place] [address] 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] Radiology MRI Comment on above: Benign neoplasm of m eninges (HCC) [D32.9] Start: 04-03-2023 Behavioral Health Screening Behavioral Health Screening [facility] Start: 04-03-2023 Depression Assessment Depression Ass essment [facility] Start: 12-21-2022 Adult depression screening assessment DEPRESSION SCREENING [facility] Start: 12-02-2022 Covid-19 Vaccine () Covid-19 Vaccine () [facility] Start: 12-02-2022 Covid-19 Vaccine () Covid-19 Vaccine () [facility] Start: 12-02-2022 Influenza vaccination [facility] Start: 08-29-2022 End: 03-31-2023 Mri brain brain stem w/o w/contrast material MRI BRAIN WO/W IVCON Radiology Routine Benign neoplasm of meninges (HCC) Expected: 08/29/2022, Expires: 03/31/2023 [facility] Work Phone: Comment on above: Expected: 08/29/2022 , Expires: 03/31/2023 Start: 08-22-2022 Adult depression screening assessment DEPRESSION SCREENING [facility] Start: 04-03-2022 DEPRESSION ASSESSMENT DEPRESSION ASS [facility] Start: 01-24-2022 DIABETES SCREEN DIABETES SCREEN [facility] Start: 01-24-2022 Diabetes Screening Diabetes Screenin g [facility] Start: 12-02-2021 Influenza vaccination [facility] Start: 04-03-2021 [facility] Start: 07-12-2020 COLOGUARD (FIT-DNA) COLOGUARD (FIT-D NA) [facility] Start: 07-12-2020 Colonoscopy COLONOSCOPY [facility] Start: 07-12-2020 COLORECTAL CANCER SCREENING COLORECTAL CANCER SCREENING [facility] Start: 07-12-[address] COLONOGRAPHY [facility] Start: 07-12-2020 FECAL OCCULT BLOOD FECAL OCCULT BLOO D [facility] Start: 07-12-2020 Lipid 1996 panel - Serum or Plasma Lipid Screening [facility] Start: 07-12-2020 Lipid panel Lipid Screening [facility] Start: 07-12-2020 LIPID SCREEN LIPID SCREEN [facility] Start: 07-12-2020 Screening for malign ant neoplasm of colon [facility] Start: 07-12-2020 SIGMOIDOSCOPY SIGMOIDOSCOPY [facility] Start: 2015 Mammography [facility] Start: 2015 Screening for malign ant neoplasm of breast Mammogram Screening [facility] Start: 07-12-2005 HPV TESTING HPV TESTING [facility] Start: 07-12-2005 Screening for malign ant neoplasm of cervix HPV Testing [facility] Start: 07-12-1996 PAP TESTING PAP TESTING [facility] Start: 07-12-1996 Screening for malign ant neoplasm of cervix [facility] Start: 07-12-1994 Hepatitis B Vaccine (1 of 3 - 19+ 3-dose series) Hepatitis B Vaccine (1 of 3 - 19+ 3-dose series) [facility] Start: 07-12-1994 Urine microalbumin profile [facility] Start: 07-12-1993 Anxiety Screening Anxiety Screening [facility] Start: 07-12-1993 Depression Screening Depression Scre ening [facility] Start: 07-12-1993 HEPATITIS C SCREENING HEPATITIS C [facility] Start: 07-12-1993 Hepatitis C screening Hepatitis C [facility] Start: 07-12-1993 HIV SCREENING HIV SCREENING [facility] Start: 07-12-1993 HIV screening HIV Screening [facility] Start: 07-12-1981 PNEUMOCOCCAL (1 - PCV) PNEUMOCOCCAL (1 - PCV) [facility] Start: 07-12-1980 COVID-19 VACCINE (#1) COVID-19 VACCI NE (#1) [facility] Start: 01-12-1976 COVID-19 VACCINE (#1) COVID-19 VACCI NE (#1) [facility] Start: 1975 HEPATITIS B (1 of 3 - 3-dose series) HEPATITIS B (1 of 3 - 3-dose series) [facility] Start: 1975 Hepatitis B Vaccine (1 of 3 - 3-dose series) Hepatitis B Vaccine (1 of 3 - 3-dose series) [facility] End: 10-11-2024 MR Brain WO and W contrast IV MRI BRAIN WO/W IVCON Radiology Routine Benign neoplasm of meninges (HCC) 1 Occurrences starting 09/12/2023 until 10/11/2024 [facility] Work Phone: Comment on above: 1 Occurrences starti ng 09/12/2023 until 10/11/2024 End: 09-22-2022 Mri brain brain stem w/o w/contrast material MRI BRAIN WO/W IVCON Radiology Routine Benign neoplasm of meninges (HCC) 1 Occurrences starting 08/23/2021 until 09/22/2022 [facility] Work Phone: Comment on above: 1 Occurrences starti ng 08/23/2021 until 09/22/2022 [facility] ANESTHESIA O NLY [facility] Immunizations Immunization Date Immunization Notes Care Provider Britt [place] 06-05-2020 SARS-CoV-2 (COVID-19 ) mRNA BNT-162b2 familia DE LOS SANTOS [facility] [place] 05-15-2020 SARS-CoV-2 (COVID-19 ) mRNA BNT-162b2 vax Debbie HERNANDEZFelix [facility] [place] NEGATED: Highlighted row has not occurred!02-17-2023 influenza virus vaccine, unspecified formulation Debbie HERNANDEZFelix [facility] [place] Payers Date Payer Category Payer Self-pay [id number] 2018 Unknown MMO MMO [employer] [id number] 2018-Present [phone] [address] [place] [address] PPO [id number] 2018 Unknown [id number] 1975 Unknown [id number] 1975 Unknown [id number] 1975 Unknown [id number] 1975 Unknown [id number] 1975 Unknown [id number] 1975 Unknown [id number] [id number] 1975 Unknown [id number] 1975 Unknown [id number] 1959 Self-pay [id number] 1959 Unknown [id number] Unknown [id number] Unknown [id number] [id number] Unknown [id number] Social History Date Type Detail Facility Start: 11-19-2018 End: 02-17-2023 Tobacco smoking status NHIS Ex-smoker [facility] End: 08-02-2018 History of tobacco use Current smoker [facility] End: 08-02-2018 History of tobacco use Cigarette Smoker [facility] Start: 11-19-2018 Tobacco use and exposure Smokeless tobacco non-user [facility] Start: 10-29-2020 End: 06-21-2021 Alcohol intake Current drinker of alcohol (finding) [facility] Start: 11-19-2018 History SDOH Alcohol Comment occasionally [facility] Start: 1975 Sex Assigned At Not on file [facility] Start: 04-13-2021 End: 12-21-2021 Exposure to SARS-CoV-2 (event) Not sure [facility] Start: 03-10-2020 End: 06-21-2022 Sex Assigned At [facility] Start: 03-10-2020 End: 06-21-2022 History of Social function [facility] Adult Depression Screening Assessment 0 [facility] Start: 01-20-2020 Gender identity Identifies as female gender (finding) [facility] Start: 05-02-2021 End: 06-11-2021 Exposure to SARS-CoV-2 (event) Unable to assess [facility] Start: 1975 Sex Assigned At Female [facility] Start: 02-19-2024 [facility] Start: 02-19-2024 Sex Female (finding) [facility] Functional Status Date Assessment Result Facility 02-17-2023 Functional Status N/A General Phan cece [facility] Clinical Notes 05-13-2021 to 12-14-2023 Debbie Echeverria MD - 12/14/2023 11:14 AM Bella Ashley MA - 12/14/2023 10:47 AM Bella Ashley MA - 12/14/2023 10:47 AM Abdiaziz Morgan APRN.FLOWER GRADER - 09/12/2023 11:18 AM EDT Note Date & Type Note Facility 12-14-2023 Note HNO ID: [id number] Author: DEBBIE ECHEVERRIA MD Service: ? Author Type: Physician Type: Progress Notes Filed: 12/19/2023 15:07 Note Text: [facility] GASTROENTEROLOGY ONCOLOGY ESTABLISHED PATIENT VISIT PATIENT NAME: Ben Cruz : 1975 ATTENDING PHYSICIAN: Dr Echeverria DATE OF SERVICE: December 14, 2023 DIAGNOSIS: Desmoplastic melanoma HISTORY OF PRESENT [...] been monitored via surveillance. Last seen in June 2023. INTERVAL HISTORY: Since last visit, she visited electric dolly operator in 10/2023, and was reassured, no new appearing skin lesions. Follows every 6 months. She saw neurology and had MRI brain in 09/2023, with stable changes. She is following up with neurology every yearly, next visit September 2024. She denies any nausea, vomiting, fevers, chills, night sweats, decreased appetite, headaches, dizziness, chest pain, shortness of breath, heart palpitations, abdominal pain, constipation, diarrhea, numbness, tingling, weakness, urinary and fecal issues, dark stools, bright red stools or hematuria. REVIEW OF SYSTEMS:As per HPI MEDICATIONS: REPATHA SURECLICK 140 mg/mL pen injector Inject 140 mg subcutaneously every 2 weeks. omeprazole (PRILOSEC) 20 mg capsule Take 20 mg by mouth once daily. dexAMETHasone (DECADRON) 4 mg tablet Start the day after your Gamma Knife Procedure: Decadron (Dexamethasone), Take 4 mg (1 tablet) daily for 4 days, Take 2 mg (1/2 tablet) daily for 4 days, then stop Decadron famotidine (PEPCID) 20 mg tablet Take 1 tablet by mouth once daily. meloxicam (MOBIC) 15 mg tablet inclisiran (LEQVIO) 284 mg/1.5 mL injection ALLERGIES No Known Allergies PHYSICAL EXAMINATION: BP 140/85 Pulse 85 Temp 36.4 ?C (97.6 ?F) Resp 20 Ht 162.6 cm (5' 4 ) Wt 101 kg (222 lb 10.6 oz) LMP 09/08/2019 SpO2 97% BMI 38.22 kg/m? Body surface area is 2.14 meters squared. 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 Currently on surveillance. Melanoma - continue to follow up with us every 6 months - recommend continue follow up with electric dolly operator Patient seen and discussed with Gastroenterology Oncology staff, Dr Donald Mustafa MD PGY2 Visiting Resident Internal Medicine Please do not hesitate to contact with questions or concerns. This is a preliminary note which reflects the assessment of the authoring hematology-oncology fellow only. The final assessment and recommendations may be edited by attending physician. Please see attestation. ADDENDUM I have reviewed the history, physical obtained and documented by the Resident and I personally participated in all of the beckwith components. I have discussed the case and management of the patient's care with the Resident The following comments revise or confirm relevant beckwith components of the Resident. I spent 25 minutes in the vi (more content not included)... [facility] 12-14-2023 History of Presen t illness Narrative Images from the original note were not included. [facility] GASTROENTEROLOGY ONCOLOGY ESTABLISHED PATIENT VISIT PATIENT NAME: Ben Cruz : 1975 ATTENDING PHYSICIAN: Dr Echeverria DATE OF SERVICE: December 14, 2023 DIAGNOSIS: Desmoplastic melanoma HISTORY OF PRESENT [...] been monitored via surveillance. Last seen in June 2023. INTERVAL HISTORY: Since last visit, she visited electric dolly operator in 10/2023, and was reassured, no new appearing skin lesions. Follows every 6 months. She saw neurology and had MRI brain in 09/2023, with stable changes. She is following up with neurology every yearly, next visit September 2024. She denies any nausea, vomiting, fevers, chills, night sweats, decreased appetite, headaches, dizziness, chest pain, shortness of breath, heart palpitations, abdominal pain, constipation, diarrhea, numbness, tingling, weakness, urinary and fecal issues, dark stools, bright red stools or hematuria. REVIEW OF SYSTEMS:As per HPI MEDICATIONS: REPATHA SURECLICK 140 mg/mL pen injector Inject 140 mg subcutaneously every 2 weeks. omeprazole (PRILOSEC) 20 mg capsule Take 20 mg by mouth once daily. dexAMETHasone (DECADRON) 4 mg tablet Start the day after your Gamma Knife Procedure: Decadron (Dexamethasone), Take 4 mg (1 tablet) daily for 4 days, Take 2 mg (1/2 tablet) daily for 4 days, then stop Decadron famotidine (PEPCID) 20 mg tablet Take 1 tablet by mouth once daily. meloxicam (MOBIC) 15 mg tablet inclisiran (LEQVIO) 284 mg/1.5 mL injection ALLERGIES No Known Allergies PHYSICAL EXAMINATION: BP 140/85 Pulse 85 Temp 36.4 C (97.6 F) Resp 20 Ht 162.6 cm (5' 4 ) Wt 101 kg (222 lb 10.6 oz) LMP 09/08/2019 SpO2 97% BMI 38.22 kg/m Body surface area is 2.14 meters squared. 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 Currently on surveillance. Melanoma - continue to follow up with us every 6 months - recommend continue follow up with electric dolly operator Patient seen and discussed with Gastroenterology Oncology staff, Dr Donald Mustafa MD PGY2 Visiting Resident Internal Medicine Please do not hesitate to contact with questions or concerns. This is a preliminary note which reflects the assessment of the authoring hematology-oncology fellow only. The final assessment and recommendations may be edited by attending physician. Please see attestation. ADDENDUM I have reviewed the history, physical obtained and documented by the Resident and I personally participated in all of the beckwith components. I have discussed the case and management of the patient's care with the Resident The following comments revise or confirm relevant beckwith components of the Resident. I spent 25 minutes in the visit, with more than 50% of the total zhmv-rq-kejv time of the visit in counseling / coordination of care. Debbie Echeverria MD documented in this encounter [facility] 12-14-2023 Nurse Note Additional intake questions: Has the patient had fever, nausea, vomiting, diarrhea, constipation, fatigue for > 1 week? No Does the patient have a decreased appetite? No Does patient want to see a Hem Marker? No (yes to any of above refer patient to schedulers for dietitian appointment) ) Does patient have any new or increased numbness or tingling of extremities? No Is patient interested in fertility information? NA Does patient need any prescription refills? No Does patient have an advanced directive in place? No, [facility] 12-14-2023 Nurse Note Additional intake questions: Has the patient had fever, nausea, vomiting, diarrhea, constipation, fatigue for > 1 week? No Does the patient have a decreased appetite? No Does patient want to see a Hem Marker? No (yes to any of above refer patient to schedulers for dietitian appointment) ) Does patient have any new or increased numbness or tingling of extremities? No Is patient interested in fertility information? NA Does patient need any prescription refills? No Does patient have an advanced directive in place? No, documented in this encounter [facility] 09-12-2023 Note HNO ID: [id number] Author: ABDIAZIZ BUNCH APRN.FLOWER GRADER Service: ? Author Type: Nurse Practitioner Type: Progress Notes Filed: 09/12/2023 13:21 Note Text: [facility] NEURO-ONCOLOGY OUTPATIENT CLINIC NOTE [...] DATE OF EXAM: Sep 12 2023 11:35AM [facility] 0295 - MRI BRAIN WO/W IVCON / PROCEDURE REASON: Benign neoplasm of meninges (HCC) * * * * Physician Interpretation * * * * EXAMINATION: MRI BRAIN WO/W IVCON CLINICAL HISTORY: Meningioma TECHNIQUE: Routine brain MRI protocol without and with cont (more content not included)... [facility] 09-12-2023 History of Presen t illness Narrative Images from the original note were not included. [facility] NEURO-ONCOLOGY OUTPATIENT CLINIC NOTE [...] DATE OF EXAM: Sep 12 2023 11:35AM [facility] 0295 - MRI BRAIN WO/W IVCON / [...] left frontal convexity without substantial mass effect. Armament Aircraft Mechanic: TORI Transcribe Date/Time: Sep 12 2023 11:55A [...] - All questions were answered. Abdiaziz Bunch APRN.FLOWER GRADER Certified Nurse Practitioner cc: Gurpreet Beckwith DO PHD - Epic documented in this encounter [facility] 09-12-2023 History of Presen t illness [...] PATIENT PRESENTS WITH AN IMPLANTABLE OR ATTACHED KEYBOARD OPERATOR: No RADIOLOGY DEPARTMENT: MR; Exam(s) Completed: Head: Routine Brain PERIPHERAL IV DATA: Site assessment: Clean,Dry and Intact, Site disposition Discontinued SIGNED BY: JADA Gloria) September 12, 2023 11:12 AM documented in this encounter [facility] 09-12-2023 Note HNO ID: [id number] Author: CHERRIE MCBRIDE RT(R) Service: ? Author [...] PATIENT PRESENTS WITH AN IMPLANTABLE OR ATTACHED KEYBOARD OPERATOR: No RADIOLOGY DEPARTMENT: MR; Exam(s) Completed: Head: Routine Brain PERIPHERAL IV DATA: Site assessment: Clean,Dry and Intact, Site disposition Discontinued SIGNED BY: JADA Gloria) September 12, 2023 11:12 AM [facility] 09-12-2023 Note HNO ID: [id number] Author: NIDIA MORELOS RN Service: Nursing Author [...] 12, 2023 TIME: 10:40 AM [facility] 09-08-2023 Telephone encounter Note Patient called in requesting ativan for her MRI. Chart review indicates patient has been prescribed 1mg of ativan prior to past MRI's and has tolerated it well. Orders pended to provider for review. Johann Henriquez RN Child Development Associate Teacher [facility] 09-08-2023 Miscellaneous Notes Patient called in requesting ativan for her MRI. Chart review indicates patient has been prescribed 1mg of ativan prior to past MRI's and has tolerated it well. Orders pended to provider for review. Johann Henriquez RN Child Development Associate Teacher documented in this encounter [facility] 06-13-2023 Nurse Note Additional intake questions: [...] or Resource Center documented in this encounter [facility] 06-13-2023 History of Presen t illness Narrative Images from the original note were not included. [facility] GASTROENTEROLOGY ONCOLOGY ESTABLISHED PATIENT VISIT [...] no new issues and last visit with electric dolly operator was about 6 months ago. She [...] Lymph 1.00 - 4.00 k/uL 2.12 Abs [place] <0.87 k/uL 0.72 Abs Eosin <0.46 k/uL [...] 6 months - recommend follow up with electric dolly operator Patient seen and discussed with Gastroenterology [...] with more than 50% of the total vyzn-rc-lyqt time of the visit in counseling / coordination of care. Debbie Echeverria MD documented in this encounter [facility] 06-13-2023 Note HNO ID: [id number] Author: DEBBIE ECHEVERRIA MD Service: ? Author Type: Fellow Type: Progress Notes Filed: 06/14/2023 17:20 Note Text: [facility] GASTROENTEROLOGY ONCOLOGY ESTABLISHED PATIENT VISIT [...] no new issues and last visit with electric dolly operator was about 6 months ago. She [...] Lymph 1.00 - 4.00 k/uL 2.12 Abs [place] <0.87 k/uL 0.72 Abs Eosin <0.46 k/uL [...] 6 months - recommend follow up with electric dolly operator Patient seen and discussed with Gastroenterology [...] with more than 50% of the total xdmb-ej-ljgx time of the visit in counseling / coordination of care. (more content not included)... [facility] 05-12-2023 Miscellaneous Notes Mateusz Roldan (RN)-via email: This patient had GK in January and their follow up MRI and appointment was never scheduled. She needs an MRI at [facility] and follow up same day with Abdiaziz bunch. Schedule this for September please. Appointments scheduled. Mychart and letter sent. Marli Patino documented in this encounter [facility] 03-16-2023 Evaluation note Encounter Date Diagnosis Assessment Notes Mar, LLQ abdominal pain (ICD-10 - R10.32) Discussed differential - kidney stone, diverticulosis (recent normal colonoscopy), ovarian issue or constipation (no BM x 2 days) due to hematuria on UA - recommend CT without contrast to r/o stone. Mar, Microscopic hematuria (ICD-10 - R31.29) [facility] Other 12-14-2023 Evaluation note* Encounter Date Diagnosis [...] She would like to continue this treatment. [facility] Other 11-17-2023 NoteChief Complaint consultation for screening [...] Recorded SARS-CoV-2 (COVID-19) mRNA BNT-162b2 vax 05/15/2020 [facility]edL[facility]point [facility] CenterComment on above:Result Comment: Electronically Signed By: MAGALI MCKINLEY, Debbie He\Date and Time Signed: 02/17/23 15:11 [id number] Miscellaneous Notes* Telephone Encounter - Johann Henriquez [...] symptoms or concerns arise. [facility] Miscellaneous Notes* Telephone Encounter - Johann Henriquez RN - 02/07/2023 1:13 PM EST 2nd attempt to reach out, patient unavailable. Will send [employer] message with contact information to call if she is experiencing any symptoms or has any concerns since gamma knife treatment. * Telephone Encounter - Johann Henriquez RN - 02/06/2023 1:17 PM EST Calling Ben for post-GKRS follow-up. Unable to reach at this time. Left voicemail. [facility]23 NoteHNO ID: [id number] Author: Burak Prakash MD Service: Radiation Oncology Author Type: Physician Type: Progress Notes Filed: 02/03/2023 12:33 AM Note Text: BEN CRUZ [id number] 02/01/2023 [facility] / Department [...] [facility] NoteHNO ID: [id number] Author: Burak Prakash MD Service: Radiation Oncology Author Type: Physician Type: Progress Notes Filed: 02/01/2023 12:33 AM Note Text: BEN CRUZ [id number] 01/27/2023 [facility] Cindi Diez [facility] Tumor [facility] Neuro-Oncology [facility] STEREOTACTIC RADIOSURGERY (SRS) DAILY PROCEDURE NOTE [...] patient setup, I conferred with the medical equipment repairer to approve the final setup. I was [...] planned. Electronically Signed Burak Prakash M.D. :10 [facility]10-27-2023 NoteHNO ID: [id number] Author: Burak Prakash MD Service: Radiation Oncology Author Type: Physician Type: Progress Notes Filed: 02/02/2023 12:32 AM Note Text: BEN CRUZ [id number] 01/27/2023 [facility] Cindi Tavarest [facility] Neuro-On[facility] Department of Radiation Oncology [facility] RADIATION ONCOLOGY GAMMA KNIFE SIMULATION NOTE [...] planning. Electronically Signed Burak Prakash M.D. :18 [facility]10-27-2023 NoteHNO ID: [id number] Author: Burak Prakash MD Service: Radiation Oncology Author Type: Physician Type: Progress Notes Filed: 02/01/2023 12:33 AM Note Text: BEN CRUZ [id number] 01/27/2023 [facility] Department of Radiation Oncology [facility] RADIATION ONCOLOGY GAMMA KNIFE TREATMENT PLANNING [...] Signed Burak Prakash M.D. / [facility] 31:29 [facility]10-27-2023 NoteHNO ID: [id number] Author: Gurpreet Beckwith DO, PhD Service: ? Author Type: Physician Type: Progress Notes Filed: 01/27/2023 1:49 PM Note Text: [facility]URO[facility]COL[facility] [address] [place] [address] [place] OPERATIVE REPORT NAME: Ben Cruz NO.: [id number] MASK SIMULATION DATE: 2023-01-27 RADIATION TREATMENT START [...] Number of Fractions: 1 After the usual air quality specialist procedures were performed, fractionated 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 was delivered with use of the Gamma Knife. The Gamma Knife checklist and time outs were performed during this procedure. Gurpreet Beckwith DO, PhDMercy [facility]10-27-2023 History of Present illness Narrative* Gurpreet Beckwith DO, PhD - 01/27/2023 1:49 PM EDT [facility] [address] [place] [address] [place] OPERATIVE REPORT NAME: Ben Cruz [facility] NO.: [id number] MASK SIMULATION DATE: 2023-01-27 RADIATION TREATMENT START [...] Number of Fractions: 1 After the usual air quality specialist procedures were performed, fractionated 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 was delivered with use of the Gamma Knife. The Gamma Knife checklist and time outs were performed during this procedure. Gurpreet Beckwith DO, PhD [facility]10-[facility]2023 NoteHNO ID: [id number] Author: Gurpreet Beckwith DO, PhD Service: ? Author Type: Physician Type: Progress Notes Filed: 01/27/2023 11:22 AM Note Text: [facility] [address] [place] [address] [place] OPERATIVE REPORT NAME: Ben Cruz [facility] NO.: [id number] MASK SIMULATION DATE: 2023-01-27 RADIATION TREATMENT START [...] Number of Fractions: 1 After the usual air quality specialist procedures were performed, fractionated 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 was delivered with use of the Gamma Knife. The Gamma Knife checklist and time outs were performed during this procedure. Gurpreet Beckwith DO, PhDMercy [facility]10-27-[facility] History of Present illness Narrative* Gurpreet Beckwith DO, PhD - 01/27/2023 11:21 AM EDT [facility] [address] [place] [address] [place] OPERATIVE REPORT NAME: Ben Cruz [facility] NO.: [id number] MASK SIMULATION DATE: 2023-01-27 RADIATION TREATMENT START [...] Number of Fractions: 1 After the usual air quality specialist procedures were performed, fractionated 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 was delivered with use of the Gamma Knife. The Gamma Knife checklist and time outs were performed during this procedure. Gurpreet Beckwith DO, PhD documented [facility]10[facility] History of Present illness Narrative* Zee [...] 27, 2023 8:06 AM documented in this encounterWayne Hospital10-27-2023 NoteHNO ID: [id number] Author: Zee Padilla Tech Service: Radiology Author Type: Tube Machine Operator Type: Progress Notes Filed: 01/27/2023 [...] BY: Tyshawn Lawler January 27, 2023 8:06 [facility]10-27-2023 NoteHNO ID: [id number] Author: Gurpreet Beckwith DO, PhD Service: ? [...] (06/16) hemangioma of the liver. Saw Dr Bird 06 21 22: rec observation w FU imaging Saw Dr Bird 10 19 22: MRI brain on 10/17/2022 [...] U/L 60 (more content not included)...[facility] History of Present illness Narrative* Gurpreet [...] (06/16) hemangioma of the liver. Saw Dr Bird 06 21 22: rec observation w FU imaging Saw Dr Bird 10 19 22: MRI brain on 10/17/2022 [...] 123 U/L 60 Final Pathology: Specimen #: [id number] Submitting Physician: DEBBIE ECHEVERRIA MD FINAL DIAGNOSIS [...] FRONTAL LOBE, UNCHANGED GOING BACK TO 06/01/2021 Armament Aircraft Mechanic: [employer] Transcribe Date/Time: Jan 27 2023 8:08A Dictated [...] (06/16) hemangioma of the liver. Saw Dr Bird 06 21 22: rec observation w FU imaging Saw Dr Bird 10 19 22: MRI brain on 10/17/2022 [...] edema. She has been followed with Dr Bird and it has shown some growth and [...] today Gurpreet Beckwith DO, PhD cc: Ben Bird- muna Echeverria- muna documented in this encounterWay[facility]10-27-2023 Instructions* Patient Instructions* Gayle Acevedo RN - 01/27/2023 7:45 AM EDT [facility] Gamma Knife Center Discharge Instructions As [...] a physician or hospital other than the [facility] with any problem related to [...] may your physician, Dr. Virgil Beckwith at [phone] Monday through Monday 8:00 am to 5:00 pm, or call the Gamma Knife nurse Monday through Monday 8:00 am to 4:00 pm at [phone]. In the evening or on weekends, call [phone] or toll-free [phone] and ask the mixer operator hot metal to page your neurosurgeon's resident nuclear control room operator. documented in this encounterWayne Hospital10-27-2023 History of Present illness Narrative* Anton [...] 27, 2023 TIME: 7:46 AM * Mariela Burk, RT(R) - 01/27/2023 7:40 AM EDT Radiology [...] 27, 2023 7:59 AM documented in this encounterWayne Hospital10-27-2023 NoteHNO ID: [id number] Author: Anton Terrell RN Service: Nursing Author [...] Cruz DATE: January 27, 2023 TIME: 7:46 [facility]10-27-2023 NoteHNO ID: [id number] Author: Mariela Burk RT(R) Service: Radiology Author [...] BY: RT Nestor(R) January 27, 2023 7:59 [facility]10-27-2023 NoteHNO ID: [id number] Author: Gayle Acevedo RN Service: ? Author [...] Patient's Age: 47 Menstruation Status: [place] [facility] [place]: N/A test not performed QC: Yes, testing is valid (or protocol followed for invalid testing). Reference range: Normal Value = Negative for hCG. POC performed by: Gayle Acevedo RN 0916 4 mg Decadron PO given prior to GKRS per order of Dr. Virgil Beckwith 0946 GKRS start time. 1016 GKRS end time. 1025 Discharge instructions given to patient; instructions reviewed by this RN; patient/family verbalized understanding; patient discharged via/with Gayle Acevedo RNMer[facility]10-27-[facility] History of Present illness Narrative* Gayle [...] Gayle Acevedo RN 0735 Mask SIM completed. Bentoby Whartonenrique returned to department for treatment # 1 of 1. Is patient receiving immunotherapy infusions: Not Applicable. Patient's Age: 47 Menstruation Status: [place]ste[place] [facility] [place] Results: N/A test not performed QC: Yes, testing is valid (or protocol followed for invalid testing). Reference range: Normal Value = Negative for hCG. POC performed by: Gayle Acevedo RN 0915 4 mg Decadron PO given prior to GKRS per order of Dr. Virgil Beckwith 0946 GKRS start time. 1016 GKRS end time. 1025 Discharge instructions given to patient; instructions reviewed by this RN; patient/family verbalized understanding; patient discharged via/with Gayle Acevedo RN documented in this encounterWayne Hospital10-27-2023 History of Present illness Narrative* Burak Prakash MD - 01/27/2023 12:00 AM EDT SHARONABEN [id number] 01/27/2023 [facility] STEREOTACTIC RADIOSURGERY (SRS) DAILY PROCEDURE NOTE [...] to patientsetup, I conferred with the medical equipment repairer to approve the final setup. I was [...] Prakash M.D. 31:10 PM documented in this encounterWayne Hospital10-27-2023 History of Present illness Narrative* Burak Prakash MD - 01/27/2023 12:00 AM EDT BEN CRUZ [id number] 01/27/2023 [facility] Department of Radiation Oncology [facility] RADIATION ONCOLOGY GAMMA KNIFE TREATMENT PLANNING [...] Signed Burak Prakash M.D. / [facility] 31:29 PM documented in this encounterWayne Hospital09-21-2023 NoteHNO ID: [id number] Author: Debbie Echeverria MD Service: ? Author Type: Physician Type: Progress Notes Filed: 12/23/2022 9:46 AM Note Text: December 22, 2022 DXN: Resected T4aN0 desmoplastic melanoma. The lesion was about 4.5mm located on her back with 2 negative SLNs (left axilla). There was no reported neurtropism and only one mitotic figure. Margins were negative. Declined an adjuvant trial in [place]. Baseline imaging today is negative CC: Melanoma follow up HPI: Doing well. No new symptoms. Derm follow up has been clear. ROS Negative except as above Exam Appears well No melanotic lesions No ITM Well healed scar on left back No LA Impression Resected T4aN0 desmoplastic melanoma IVC and doing well. She has a meningioma under survielllance with RadOnc. F/u with Derm. RTC in 6 months Elements of this note, including HPI, ROS, Physical Exam, Assessment and Plan were copied and pasted from 3 note. Updates have been made where noted [...] relevant beckwith components of the Resident. Debbie Echveerria, [facility]08-15-2023 Miscellaneous Notes* Telephone Encounter - Betzy Cabral RN - 11/15/2022 1:57 PM EDT Calling Ben to follow up on [employer] message about scheduling gamma knife for 01/27/2023 No answer, left message stating that I'll go ahead and place the GK orders. Reminded to disregard ANY appointment times she sees in [employer], any automated text reminders or automated phone calls for 01/27/23 She will receive a call from the GK nurse or radiation therapist the day before with her arrival time. If she has any questions, I left office phone # for call back or she can send a [employer] message. I will send out a GK folder with additional information related to Mask Based Gamma Knife Radiosurgery Betzy Cabral RN, BSN Child Development Associate Teacher [facility] documented in this encounterWayne Hospital08-04-2023 History of Present illness Narrative* Gurpreet Beckwith DO, PhD - 11/04/2022 1:00 PM EDT Images from the original note were not included. [facility] New Patient Virtual Consultation Referred by Dr. Derian Bird We had a virtual visit conducted via [employer] / [employer] virtual visit. I received consent from the patient to perform the visit using this platform. I have communicated my name and active licensure. The patient's identity and physical location wereverified at the time of this visit. Either the patient or their legal hobbies and crafts sales representative has been informed of the [...] (06/16) hemangioma of the liver. Saw Dr Bird 06 21 22: rec observation w FU imaging Saw Dr Bird 10 19 22: MRI brain on 10/17/2022 [...] 123 U/L 60 Final Pathology: Specimen #: [id number]* Submitting Physician: DEBBIE ECHEVERRIA MD FINAL DIAGNOSIS Skin, left upper midline back, shave biopsy - Desmoplastic melanoma, see synoptic report. RADHA/evelyn 11/09/2018 Imaging: MRI Report MRI BRAIN WO/W IVCON Exam End: 10/17/2022 11:20 AM (Final result) Narrative: * * *Final Report* * * DATE OF EXAM: Oct 17 2022 11:20AM [facility] 0295 - MRI BRAIN WO/W IVCON / [...] with air-fluid level suggestive of acute/active sinusitis. Armament Aircraft Mechanic: TORI Transcribe Date/Time: Oct 17 2022 11:35A [...] (06/16) hemangioma of the liver. Saw Dr Bird 06 21 22: rec observation w FU imaging Saw Dr Bird 10 19 22: MRI brain on 10/17/2022 [...] edema. She has been followed with Dr Bird and it has shown some growth and [...] which included preparing to see the patient, uuyz-sq-bqfi patient care, completing clinical documentation, obtaining and/or reviewing separately obtained history, performing a medically appropriate examination, counseling and educating the pat ient/family/caregiver, ordering medications, tests, or procedures, communicating with other HCPs (not separately reported), independently interpreting results (not separately reported), communicatingresults to the patient/family/caregiver, and care coordination (not separately reported). Gurpreet Beckwith DO, PhD cc: Ben [place] [facility] Dr Echeverria- [facility] documented in this encounterWayne Hospital07-31-2023 Evaluation note* Encounter Date Diagnosis Assessment Notes Treatment Notes Treatment Clinical Notes Oct, Screen for colon cancer (ICD-10 - Z12.11) eCollect Other 07-19-2023 History of Present illness Narrative* Derian Bird MD - 10/19/2022 4:30 PM EDT Radiation Oncology - [facility] This visit [...] set up to see a GK neurosurgeon/neurologist. Derian Bird MD cc: Debbie Echeverria [id number] [address] documented in this encounterWayne Hospital07-18-2023 History of Present illness Narrative* Trista [...] Total Time Spent: more than 20 minutes vkun-ns-yxyb with the patient and over half the [...] DATE OF EXAM: Oct 17 2022 11:20AM [facility] 0295 - MRI BRAIN WO/W IVCON / [...] with air-fluid level suggestive of acute/active sinusitis. Armament Aircraft Mechanic: TORI Transcribe Date/Time: Oct 17 2022 11:35A [...] Clinically stable. - MRI reviewed with Dr. Bird and reports 1 mm growth of subcentimeter left frontal meningioma, and new right sided paranasal sinus disease. - Per Dr. Bird ok to continue to observe vs treat [...] be scheduled for follow up with Dr. Bird to discuss treatment options, per patient request. Trista Bonilla APRN.CNP Cc: Dr. Derian Echeverria documented in this encounterWayne Hospital07-17-2023 History of Present illness Narrative* Nidia [...] 17, 2022 TIME: 10:40 AM * Barbara Gaxiola, cupola patcher - 10/17/2022 10:40 AM EDT Radiology Service [...] 17, 2022 10:53 AM documented in this encounterWayne Hospital06-21-2023 Evaluation note* Encounter Date Diagnosis Assessment [...] the berberine and get back to patient. eCollect Other 05-31-2023 Miscellaneous Notes* Telephone Encounter - [...] 09/05. Prescription should be sent to the [facility] in [facility]. [facility] [phone] [place] [address] documented in this encounterWayne Hospital03-21-2023 History of Present illness Narrative* Debbie Echeverria MD - 06/21/2022 11:08 AM EDT June 21, 2022 DXN: Resected T4aN0 desmoplastic melanoma. The lesion was about 4.5mm located on her back with 2 negative SLNs (left axilla). There was no reported neurtropism and only one mitotic figure. Margins were negative. Declined an adjuvant trial in [place]. Baseline imaging today is negative CC: Melanoma [...] with more than 50% of the total agdb-bm-xxkx time of the visit in counseling / coordination of care. Debbie Echeverria MD documented in this encounterWayne Hospital03-21-2023 Nurse Note* Vanessa Giang LPN - 06/21/2022 10:29 AM EDT Additional intake questions: Has the patient had fever, nausea, vomiting, diarrhea, constipation, fatigue for > 1 week? Yes, fatigue and Provider Notified Does the patient have a decreased appetite? No Does patient want to see a Hem Marker? No (yes to any of above refer patient to schedulers for dietitian appointment) ) Does patient have any new or increased numbness or tingling of extremities? No Is patient interested in fertility information? NA Does patient need any prescription refills? No Does patient have an advanced directive in place? No, Patient refused referral to Social Work or Resource Center documented in this encounterWayne Hospital11-28-2022 History of Present illness Narrative* Trista Bonilla APRN.FLOWER GRADER - 02/28/2022 10:30 AM EST [facility] This visit is a Virtual MyChart video visit encounter which required patient- provider interaction for the medical decision making as documented below. Persons Present: patient Ben Cruz has consented to this distance health encounter. 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 She denies focal weakness, dizziness, gait instability, or seizures. Data Reviewed: MRI Report MRI BRAIN WO/W IVCON Exam End: 02/23/2022 11:31 AM (Final result) Narrative: * * *Final Report* * * DATE OF EXAM: Feb 23 2022 11:31AM [facility] 0[facility] - MRI BRAIN WO/W IVCON / [...] unremarkable MRI brain with and without contrast. 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 Trista Bonilla APRN.SHERITA Cc: Dr. Derian Echeverria documented in this encounterWayne Hospital11-23-2022 History of Present illness Narrative* Nidia [...] 2022 TIME: 10:33 AM * Barbara Gaxiola cupola patcher - 02/23/2022 10:40 AM EST Radiology Service [...] 23, 2022 10:57 AM documented in this encounterWayne Hospital09-20-2022 History of Present illness Narrative* Debbie Echeverria MD - 12/21/2021 1:37 PM EDT December 21, 2021 DXN: Resected T4aN0 desmoplastic melanoma. The lesion was about 4.5mm located on her back with 2 negative SLNs (left axilla). There was no reported neurtropism and only one mitotic figure. Margins were negative. Declined an adjuvant trial in [place]. Baseline imaging today is negative CC: Melanoma [...] with more than 50% of the total xxzk-yy-grqc time of the visit in counseling / coordination of care. Debbie Echeverria MD documented in this encounterWayne Hospital09-20-2022 Nurse Note* Tiny Mckoy LPN - 12/21/2021 1:20 PM EDT Additional intake questions: Has the patient had fever, nausea, vomiting, diarrhea, constipation, fatigue for > 1 week? Yes, fatigue Does the patient have a decreased appetite? No Does patient want to see a Hem Marker? No (yes to any of above refer patient to schedulers for dietitian appointment) ) Does patient have any new or increased numbness or tingling of extremities? No Is patient interested in fertility information? No Does patient need any prescription refills? No Does patient have an advanced directive in place? No, Patient refused referral to Social Work or Resource Center documented in this encounterWayne Hospital09-02-2022 Miscellaneous Notes* Telephone Encounter - Jaylene Jacobson RN - 12/03/2021 12:49 PM EDT Patient needs a follow up visit (no labs or scans) around 12/25/21. She accepted a visit on 12/21 at 1:30 pm. Jaylene Jacobson RN * Telephone Encounter - Mary Lindsay - 12/01/2021 4:45 PM EDT Ben Cruz is calling Debbie Echeverria MD today regarding Child Development Associate Teacher - Other Patient called scheduling to schedule 6 mo follow up but was unable to get thru, so calling office for Dr. Echeverria to get it scheduled. Can she be called once appointment is made? Patient has been identified by name and birthdate. Requesting response back: [phone] (home) [phone] (cell) Mary Lindsay December 01, 2021 documented in this encounterWayne Hospital05-23-2022 History of Present illness Narrative* Derian Bird MD - 08/23/2021 2:30 PM EDT Radiation [...] an updated MRI in 6 months in [place] followed by a virtual visit for further meningioma surveillance, with additional surveillance plan to be developed thereafter. Zhanna Le MD Radiation Oncology Resident [phone] STAFF ADDENDUM I saw and evaluated the [...] 6 mo with MRI of the brain. Derina Bird MD cc: Debbie Echeverria [id number] [facility] [id number] documented in this encounterWayne Hospital05-23-2022 History of Present illness Narrative* Nidia [...] 23, 2021 12:14 PM documented in this encounterWayne Hospital03-16-2022 History of Present illness Narrative* Nazanin [...] 16, 2021 10:35 AM documented in this encounterWayne Hospital03-01-2022 History of Present illness Narrative* Barbara [...] 2021 TIME: 11:13 AM documented in this encounterWayne Hospital02-10-2022 History of Present illness Narrative* Sierra Machuca RN - 05/13/2021 8:45 AM EST Radiology Service Progress Note DATE OF SERVICE: May 13, 2021 TIME: 8:47 AM PATIENT WEIGHT: 224 LBS PATIENT IDENTITY VERIFICATION COMPLETED USING TWO [...] Reviewed and unchanged CONTRAST ALLERGY: No EXAM: CT -CONTRAST INDUCED NEPHROPATHY RISK FACTORS: Not applicable CREATININE: Creatinine Date Value Ref Range Status 01/24/2019 0.92 0.58 - 0.96 mg/dL Final eGFR-All Other Races Date Value Ref Range Status 01/24/2019 >60 . Final Comment: eGFR (Estimated GFR) Units of measure: mL/min/1.73 meters squared eGFR is derived from the reexpressed MDRD Study equation using the following parameters: serum creatinine, age, gender and race. The creatinine assay has been calibrated to be traceable to IDMS. An eGFR <60 mL/min/1.73m2 for >3 months is consistent with chronic kidney disease. Refer to KDOQI guidelines for clinical interpretation. In patients with unstable renal function, e.g. those with acute kidney injury, the eGFR may not accurately reflect actual GFR. eGFR- Date Value Ref Range Status 01/24/2019 >60 Final P.O.C.T. RESULTS: N/A May 13, 2021 TREATMENT: N/A IV SITE: Ambulatory: A peripheral IV was started in the Right antecubital site with a Angio cath: 20 gauge. IV SITE APPEARANCE: Clean,Dry and Intact SIGNATURE: Sierra Machuca RN PATIENT NAME: Ben Cruz DATE: May 13, 2021 TIME: 8:47 AM * Holly Mittal RT(R) - 05/13/2021 8:45 AM EST Radiology Service Progress Note PATIENT NAME: Ben Cruz DATE OF SERVICE: May 13, 2021 TIME: 8:53 AM PATIENT IDENTITY VERIFICATION COMPLETED USING TWO (2) IDENTIFIERS: Name and Date of confirmedby patient verbally. FALL SCREENING: Has the patient had 2 falls in the last year or 1 fall with injury or currently using an Ambulatory Assistive Device (Walker, Cane, Wheelchair, Crutches, etc.)? No PATIENT GENDER DATA: Female. status: : No status: NO. PATIENT RELEVANT IMPLANT DATA REVIEWED: Not Applicable RADIOLOGY DEPARTMENT: CT; Exam(s) Completed: Chest PERIPHERAL IV DATA: Site assessment: Clean,Dry and Intact, Site disposition Discontinued SIGNED BY: RT Nakia(R) May 13, 2021 8:53 AM documented in this encounterHolzer Hospital + [facility] note No data available for this section General Surgery Jayjay Evaluation note* Diagnosis 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 [facility]* Diagnosis 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 [facility]* Diagnosis Benign neoplasm of meninges (HCC)- Primary Benign neoplasm of cerebral meninges documented in [facility] encounter [facility]* Diagnosis 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) documented in [facility] encounter [facility] noteNo [employer] Other Evaluation note* Diagnosis Meningioma (HCC)- Primary Benign neoplasm of cerebral meninges [facility]* Diagnosis Meningioma (HCC)- Primary Benign neoplasm of cerebral meninges documented in [facility]* Diagnosis Benign neoplasm of meninges (HCC)- Primary Benign neoplasm of cerebral meninges documented in this encounter [facility]* Diagnosis Benign neoplasm of meninges (HCC)- Primary Benign neoplasm of cerebral meninges documented in this encounter [facility]* Diagnosis Benign neoplasm of meninges (HCC)- Primary Benign neoplasm of cerebral meninges documented in this [facility] note* Diagnosis Benign neoplasm of meninges (HCC)- Primary Benign neoplasm of cerebral meninges documented in this [facility] note* Diagnosis 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 [facility]* Diagnosis 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 documented in [facility]* Diagnosis 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 documented [facility]* Diagnosis 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) Liver lesion Other specified disorders of liver documented [facility]* Diagnosis 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 documented in [facility]* Diagnosis 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 [facility]* Diagnosis Onset Date Resolution Status Familial hypercholesteremia acute History of benign meningioma of brain acute [facility] Work Phone: Evaluation note* Diagnosis 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 [facility]* Diagnosis Benign neoplasm of meninges (HCC)- Primary Benign neoplasm of cerebral meninges documented in this [facility] note* Diagnosis 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 documented in [facility] encounter [facility] noteNo assessment information availableMiami [facility] Work Phone: Evaluation note* Diagnosis 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 [facility] in [facility]* Diagnosis 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) Chest pain on breathing Painful respiration Malignant melanoma of skin (HCC) Melanoma of skin, site unspecified Shortness of breath documented in this encounter [facility] general Narrative - Reported* Type Description Date Medical History melanoma Surgical History laminectomy Surgical History c-sectionx 2 Surgical History hysterectomy Surgical History lump removed right wrist Surgical History melanoma removal [employer] [employer] Other History general Narrative - ReportedNortSouthwood [facility] [employer] Other History general Narrative - Reported* Type Description Date Medical History melanoma Surgical History laminectomy Surgical History c-sectionx 2 Surgical History hysterectomy Surgical History lump removed right wrist Surgical History melanoma removal Surgical History Colonoscopy 03/2023 eCollect Other Hospital Discharge instructions No data available for this section General Surgery [place] Progress note No data available for this section General Surgery [facility] Reason for Referral Specialty Diagnoses / Procedures Referred By Selene t Referred To Contact MR IMAGING Diagnoses Benign neoplasm of meninges (HCC) Procedures MRI BRAIN WO/W IVCON MRI BRAIN BRAIN STEM W/O W/[place] [address] [place] [address] Mr Imaging Referral ID Status Reason Start Date Expiration Date Visits Requested Visits Authorized [id number] Pending Review Auto-Generat ed Referral 08/23/2021 09/22/2022 1 1 Specialty Diagnoses / Procedures Referred By Selene lloyd Referred To Contact MR IMAGING Diagnoses Benign neoplasm of meninges (HCC) Procedures MRI BRAIN WO/W IVCON MRI BRAIN BRAIN STEM W/O W/CONTRAST MATERIAL Trista Bonilla APRN.FLOWER GRADER [address] [place] [address] Mr Imaging Referral ID Status Reason Start Date Expiration Date Visits Requested Visits Authorized [id number] Pending Review Auto-Generat ed Referral 08/29/2022 03/31/2023 1 1 Reason *FU 11/15 screenin g colonoscopy Diagnosis 1 Screen for colon can cer (Z12.11) Referral Organization [facility] elias Referring Provider First Name Lissett Referring Provider Last Name Gary Referring Provider Specialty Family [facility] cine Referred Organization [facility] Referred Provider Tucker Ann Referred Address [address] [place], [place],[address] Referred Provider Specialty General Surg katelyn Referral Priority Routine General Notes Louise Livingston 10:47:05 AM >received today, attachments made, notes locked, referral faxed Clinical Notes F: [phone] Specialty Diagnoses / Procedures Referred By Selene lloyd Referred To Contact MR IMAGING Diagnoses Benign neoplasm of meninges (HCC) Procedures MRI BRAIN LOCALIZATION W IVCON UNLISTED MAGNETIC RESONANCE PROCED Gurpreet Beckwith DO, PhD [address] [place] [address] Mr Imaging [id number] Referral ID Status Reason Start Date Expiration Date V isits Requested Visits Authorized [id number] Closed Auto-Generate d Referral 12/06/2022 1 1 Specialty Diagnoses / Procedures Referred By Contac t Referred To Contact MR IMAGING Diagnoses Benign neoplasm of meninges (HCC) Procedures MRI BRAIN WO/W IVCON MRI BRAIN BRAIN STEM W/O W/[place] [address] [place] [id number] Mr Imaging [id number] Referral ID Status Reason Start Date Expiration Date V isits Requested Visits Authorized [id number] Closed Auto-Generate d Referral 06/21/2021 09/18/2021 1 1 Specialty Diagnoses / Procedures Referred By Contac t Referred To Contact MR IMAGING Diagnoses 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) Liver lesion Procedures MRI LIVER WO/W IVCON MRI ABDOMEN W/O & W/[place] [address] [place] [phone] Mr Imaging [id number] Referral ID Status Reason Start Date Expiration Date V isits Requested Visits Authorized [id number] Closed Auto-Generate d Referral 05/20/2021 07/11/2021 1 1 Specialty Diagnoses / Procedures Referred By Contac t Referred To Contact MR IMAGING Diagnoses Benign neoplasm of meninges (HCC) Procedures MRI BRAIN WO/W IVCON MRI BRAIN BRAIN STEM W/O W/CONTRAST MATERIAL Trista Bonilla APRN.FLOWER GRADER [address] [place] [address] Mr Imaging [id number] Referral ID Status Reason Start Date Expiration Date V isits Requested Visits Authorized [id number] Closed Auto-Generate d Referral 08/29/2022 03/31/2023 1 1 Referral ID Status Reason Start Date Expiration Date V isits Requested Visits Authorized [id number] Closed Auto-Generate d Referral 08/23/2021 03/20/2022 1 1 Specialty Diagnoses / Procedures Referred By Contac t Referred To Contact MR IMAGING Diagnoses Benign neoplasm of meninges (HCC) Procedures MRI BRAIN WO/W IVCON MRI BRAIN BRAIN STEM W/O W/CONTRAST MATERIAL Abdiaziz Bunch APRN.FLOWER GRADER [address] [place] [address] Mr Imaging [place] [address] Referral ID Status Reason Start Date Expiration Date Visits Requested Visits Authorized [id number] Pending Review Auto-Generat ed Referral 09/12/2023 10/11/2024 1 1 Specialty Diagnoses / Procedures Referred By Contac t Referred To Contact MR IMAGING Diagnoses Benign neoplasm of meninges (HCC) Procedures MRI BRAIN WO/W IVCON MRI BRAIN BRAIN STEM W/O W/CONTRAST MATERIAL Gurpreet Beckwith DO, PhD [address] [place] [id number] Mr Imaging [place] [address] Referral ID Status Reason Start Date Expiration Date V isits Requested Visits Authorized [id number] Closed Auto-Generate d Referral 11/25/2022 12/25/2023 1 1 Specialty Diagnoses / Procedures Referred By Contac t Referred To Contact CT IMAGING Diagnoses 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) Chest pain on breathing Malignant melanoma of skin (HCC) Shortness of breath Procedures CT CHEST W IVCON DIAGNOSTIC COMPUTED TOMOGRAPHY THORAX W/[place] [address] [id number] [facility] [place] [address] Referral ID Status Reason Start Date Expiration Date V isits Requested Visits Authorized [id number] Closed Auto-Generate d Referral 04/29/2021 06/13/2021 1 1 Summary Purpose Family History Relationship Condition Age at Onset Recorded Date/T dian father Malignant neoplasm Unknown Family history of pancreatic cancer Unkno wn Diabetes mellitus Unknown Unknown Not Specified Malignant neoplasm Unknown Malignant neoplasm of breast Unknown Relationship Condition Age at Onset Recorded Date/T dian father Malignant neoplasm Unknown Family history of pa ncreatic cancer Unknown Diabetes mellitus Unknown Unknown maternal grandmother Malignant neoplasm Unknown Malignant neoplasm of breast Unknown Advance Directives Advance Directive Response Recorded Date/ Time Advance Directives No December 6:07pm Advance Directive Response Recorded Date/ Time Advance Directives No December 10:27am Chief Complaint and Reason for Visit Chief Complaint Familial Hypercholes terolemia UA - tingling, unable to empty bladder Reason for Visit Familial hypercholes teremia History of benign meningioma of brain Chief Complaint Unknown Chief Complaint Admit Date f/u February 19, 2024 3:30pm Additional Source Comments Source Comments (unrecognize d section and content) In the event this informatio n is protected by the Federal Confidentiality of Alcohol and Drug Abuse Patient Records regulations: The Federal rules restrict any use of the information to criminally investigate or prosecute any alcohol or drug abuse patient.[facility] the event this information is protected by the Federal Confidentiality of Alcohol and Drug Abuse Patient Records regulations: The Federal rules restrict any use of the information to criminally investigate or prosecute any alcohol or drug abuse patient.[facility] HospitalIn the event this information is protected by the Federal Confidentiality of Alcohol and Drug Abuse Patient Records regulations: The Federal rules restrict any use of the information to criminally investigate or prosecute any alcohol or drug abuse patient.[facility] HospitalIn the event this information is protected by the Federal Confidentiality of Alcohol and Drug Abuse Patient Records regulations: The Federal rules restrict any use of the information to criminally investigate or prosecute any alcohol or drug abuse patient.[facility] HospitalIn the event this information is protected by the Federal Confidentiality of Alcohol and Drug Abuse Patient Records regulations: The Federal rules restrict any use of the information to criminally investigate or prosecute any alcohol or drug abuse patient.[facility] HospitalIn the event this information is protected by the Federal Confidentiality of Alcohol and Drug Abuse Patient Records regulations: The Federal rules restrict any use of the information to criminally investigate or prosecute any alcohol or drug abuse patient.[facility] HospitalIn the event this information is protected by the Federal Confidentiality of Alcohol and Drug Abuse Patient Records regulations: The Federal rules restrict any use of the information to criminally investigate or prosecute any alcohol or drug abuse patient.[facility] HospitalIn the event this information is protected by the Federal Confidentiality of Alcohol and Drug Abuse Patient Records regulations: The Federal rules restrict any use of the information to criminally investigate or prosecute any alcohol or drug abuse patient.[facility] HospitalIn the event this information is protected by the Federal Confidentiality of Alcohol and Drug Abuse Patient Records regulations: The Federal rules restrict any use of the information to criminally investigate or prosecute any alcohol or drug abuse patient.[facility] HospitalIn the event this information is protected by the Federal Confidentiality of Alcohol and Drug Abuse Patient Records regulations: The Federal rules restrict any use of the information to criminally investigate or prosecute any alcohol or drug abuse patient.[facility] HospitalIn the event this information is protected by the Federal Confidentiality of Alcohol and Drug Abuse Patient Records regulations: The Federal rules restrict any use of the information to criminally investigate or prosecute any alcohol or drug abuse patient.[facility] HospitalIn the event this information is protected by the Federal Confidentiality of Alcohol and Drug Abuse Patient Records regulations: The Federal rules restrict any use of the information to criminally investigate or prosecute any alcohol or drug abuse patient.[facility] HospitalIn the event this information is protected by the Federal Confidentiality of Alcohol and Drug Abuse Patient Records regulations: The Federal rules restrict any use of the information to criminally investigate or prosecute any alcohol or drug abuse patient.[facility] HospitalIn the event this information is protected by the Federal Confidentiality of Alcohol and Drug Abuse Patient Records regulations: The Federal rules restrict any use of the information to criminally investigate or prosecute any alcohol or drug abuse patient.[facility] HospitalIn the event this information is protected by the Federal Confidentiality of Alcohol and Drug Abuse Patient Records regulations: The Federal rules restrict any use of the information to criminally investigate or prosecute any alcohol or drug abuse patient.[facility] HospitalIn the event this information is protected by the Federal Confidentiality of Alcohol and Drug Abuse Patient Records regulations: The Federal rules restrict any use of the information to criminally investigate or prosecute any alcohol or drug abuse patient.[facility] HospitalIn the event this information is protected by the Federal Confidentiality of Alcohol and Drug Abuse Patient Records regulations: The Federal rules restrict any use of the information to criminally investigate or prosecute any alcohol or drug abuse patient.[facility] HospitalIn the event this information is protected by the Federal Confidentiality of Alcohol and Drug Abuse Patient Records regulations: The Federal rules restrict any use of the information to criminally investigate or prosecute any alcohol or drug abuse patient.[facility] HospitalIn the event this information is protected by the Federal Confidentiality of Alcohol and Drug Abuse Patient Records regulations: The Federal rules restrict any use of the information to criminally investigate or prosecute any alcohol or drug abuse patient.[facility] HospitalIn the event this information is protected by the Federal Confidentiality of Alcohol and Drug Abuse Patient Records regulations: The Federal rules restrict any use of the information to criminally investigate or prosecute any alcohol or drug abuse patient.[facility] HospitalIn the event this information is protected by the Federal Confidentiality of Alcohol and Drug Abuse Patient Records regulations: The Federal rules restrict any use of the information to criminally investigate or prosecute any alcohol or drug abuse patient.[facility] HospitalIn the event this information is protected by the Federal Confidentiality of Alcohol and Drug Abuse Patient Records regulations: The Federal rules restrict any use of the information to criminally investigate or prosecute any alcohol or drug abuse patient.[facility] HospitalIn the event this information is protected by the Federal Confidentiality of Alcohol and Drug Abuse Patient Records regulations: The Federal rules restrict any use of the information to criminally investigate or prosecute any alcohol or drug abuse patient.[facility] HospitalIn the event this information is protected by the Federal Confidentiality of Alcohol and Drug Abuse Patient Records regulations: The Federal rules restrict any use of the information to criminally investigate or prosecute any alcohol or drug abuse patient.[facility] HospitalIn the event this information is protected by the Federal Confidentiality of Alcohol and Drug Abuse Patient Records regulations: The Federal rules restrict any use of the information to criminally investigate or prosecute any alcohol or drug abuse patient.[facility] HospitalIn the event this information is protected by the Federal Confidentiality of Alcohol and Drug Abuse Patient Records regulations: The Federal rules restrict any use of the information to criminally investigate or prosecute any alcohol or drug abuse patient.[facility] HospitalIn the event this information is protected by the Federal Confidentiality of Alcohol and Drug Abuse Patient Records regulations: The Federal rules restrict any use of the information to criminally investigate or prosecute any alcohol or drug abuse patient.[facility] the event this information is protected by the Federal Confidentiality of Alcohol and Drug Abuse Patient Records regulations: The Federal rules restrict any use of the information to criminally investigate or prosecute any alcohol or drug abuse patient.[facility] HospitalIn the event this information is protected by the Federal Confidentiality of Alcohol and Drug Abuse Patient Records regulations: The Federal rules restrict any use of the information to criminally investigate or prosecute any alcohol or drug abuse patient.[facility] HospitalIn the event this information is protected by the Federal Confidentiality of Alcohol and Drug Abuse Patient Records regulations: The Federal rules restrict any use of the information to criminally investigate or prosecute any alcohol or drug abuse patient.[facility] HospitalIn the event this information is protected by the Federal Confidentiality of Alcohol and Drug Abuse Patient Records regulations: The Federal rules restrict any use of the information to criminally investigate or prosecute any alcohol or drug abuse patient.[facility] HospitalIn the event this information is protected by the Federal Confidentiality of Alcohol and Drug Abuse Patient Records regulations: The Federal rules restrict any use of the information to criminally investigate or prosecute any alcohol or drug abuse patient.[facility] HospitalIn the event this information is protected by the Federal Confidentiality of Alcohol and Drug Abuse Patient Records regulations: The Federal rules restrict any use of the information to criminally investigate or prosecute any alcohol or drug abuse patient.[facility] Reason for Visit (unrecogniz ed section and content) Reason Comments Radiology MRI Specialty Diagnoses / Procedures Referred By Selene t Referred To Contact ADMITTING Diagnoses Benign neoplasm of meninges (HCC) Procedures RADIATION DELIVERY STEREOTACTIC CRANIAL COBALT STEREOTACTIC RADIOSURGERY 1 COMPLEX CRANIAL LES RADIATION [place] STEREOTACTIC RADIOSURGERY (SRS) TX CRANIAL LESION(S) 1 SESSION MULTI-SOURCE COBALT STEREOTACTIC RADIOSURGERY 1 COMPLEX CRANIAL LESION [facility] [address] [address] Referral ID Status Reason Start Date Expiration Date Visits Re quested Visits Authorized [id number] [address] Specialty Diagnoses / Procedures Referred By Contac t Referred To Contact ADMITTING Diagnoses Benign neoplasm of meninges (HCC) Procedures RADIATION DELIVERY STEREOTACTIC CRANIAL COBALT STEREOTACTIC RADIOSURGERY 1 COMPLEX CRANIAL LES RADIATION [place] STEREOTACTIC RADIOSURGERY (SRS) TX CRANIAL LESION(S) 1 SESSION MULTI-SOURCE COBALT STEREOTACTIC RADIOSURGERY 1 COMPLEX CRANIAL LESION [facility] [address] [place] [address] Reason Comments 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 Comments Established Patient Reason Comments Established Patient Reason Comments Recheck Reason Comments Consult GK consult for LF me ningioma 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 Reason Comments Procedure GKRS Reason Comments Radiology MRI Specialty Diagnoses / Procedures Referred By [facility] Referred To Contact MR IMAGING Diagnoses 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) New daily persistent headache Other headache syndrome Procedures MRI BRAIN WO/W IVCON MRI BRAIN BRAIN STEM W/O W/CONTRAST MATERIAL Debbie Echeverria MD [address] [place] [address] Mr Imaging [id number] Referral ID Status Reason Start Date Expiration Date V isits Requested Visits Authorized [id number] Closed Auto-Generate d Referral 04/29/2021 06/13/2021 1 1 Specialty Diagnoses / Procedures Referred By [facility] Referred To Contact MR IMAGING Diagnoses Benign neoplasm of meninges (HCC) Procedures MRI BRAIN WO/W IVCON MRI BRAIN BRAIN STEM W/O W/CONTRAST MATERIAL Derian Bird MD [address] [place], [place] [id number] Mr Imaging [id number] Referral ID Status Reason Start Date Expiration Date V isits Requested Visits Authorized [id number] Closed Auto-Generate d Referral 06/21/2021 09/18/2021 1 1 Specialty Diagnoses / Procedures Referred By [facility] Referred To Contact MR IMAGING Diagnoses 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) Liver lesion Procedures MRI LIVER WO/W IVCON MRI ABDOMEN W/O & W/CONTRAST MATERIAL Debbie Echeverria MD [address] [place], [place] [id number] Mr Imaging [id number] Referral ID Status Reason Start Date Expiration Date V isits Requested Visits Authorized [id number] Closed Auto-Generate d Referral 05/20/2021 07/11/2021 1 1 Specialty Diagnoses / Procedures Referred By Contac t Referred To Contact MR IMAGING Diagnoses Benign neoplasm of meninges (HCC) Procedures MRI BRAIN WO/W IVCON MRI BRAIN BRAIN STEM W/O W/CONTRAST MATERIAL Trista Bonilla APRN.[employer] [address] [place] [address] Mr Imaging [id number] Referral ID Status Reason Start Date Expiration Date V isits Requested Visits Authorized [id number] Closed Auto-Generate d Referral 08/29/2022 03/31/2023 1 1 Referral ID Status Reason Start Date Expiration Date V isits Requested Visits Authorized [id number] Closed Auto-Generate d Referral 08/23/2021 03/20/2022 1 [...] W/CONTRAST MATERIAL Gurpreet Beckwith DO, PhD [address] [facility] [address] [place] [address] Mr Imaging [place] [address] Referral ID Status Reason Start Date Expiration Date V isits Requested Visits Authorized [id number] Closed Auto-Generate d Referral 11/25/2022 12/25/2023 [address] Specialty Diagnoses / Procedures Referred By Contac t Referred To Contact CT IMAGING Diagnoses 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) Chest pain on breathing Malignant melanoma of skin (HCC) Shortness of breath Procedures CT CHEST W IVCON DIAGNOSTIC COMPUTED TOMOGRAPHY THORAX W/[place] [address] [place] [address] Ct Imaging [id number] Referral ID Status Reason Start Date Expiration Date V isits Requested Visits Authorized [id number] Closed Auto-Generate d Referral 04/29/2021 06/13/2021 1 1 INFORMATION SOURCE (unrecogn ized section and content) DATE CREATED AUTHOR 06/10/2022 [facility] DATE CREATED AUTHOR AUTHOR'S ORGANIZ ATION 02/04/2023 [facility] DATE CREATED AUTHOR AUTHOR'S ORGANIZ ATION 03/30/2023 Ritesh Pickett [facility] DATE CREATED AUTHOR AUTHOR'S ORGANIZ ATION 09/06/2023 [facility] EPIC DATE CREATED AUTHOR AUTHOR'S ORGANIZ ATION 10/05/2023 [facility] DATE CREATED AUTHOR AUTHOR'S ORGANIZ ATION 12/21/2023 [facility] Care Teams (unrecognized sec tion and content) 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 Start Date End Date Lissett Vega MD [address] [facility] [place] [address] PCP - General Family Medicine 01/17/23 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 Start Date End Date Lissett Vega MD [address] [facility] [place] [address] PCP - General Family Medicine 01/17/23 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 Start Date End Date Lissett Vega MD [address] [facility] [place] [address] PCP - General Family Medicine 01/17/23 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 Start Date End Date Lissett Vega MD [address] [facility] [place] [address] PCP - General Family Medicine 01/17/23 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 Start Date End Date Lissett Vega MD [address] [facility] [place] [address] PCP - General Family Medicine 01/17/23 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 Start Date End Date Lissett Vega MD [address] [facility] [place] [address] PCP - General Family Medicine 01/17/23 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 Start Date End Date Lissett Vega MD [address] [place] [phone] PCP - General Family Medicine 01/17/23 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 Start Date End Date Lissett Vega MD [address] [place] [address] PCP - General Family Medicine [...] July 03, 2023 End: July 03, 2023 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 Start Date End Date Lissett Vega MD [address] [place] [phone] PCP - General Family Medicine 01/17/23 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 Start Date End Date Lissett Vega MD [address] [place] [phone] PCP - General Family Medicine 01/17/23 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 Start Date End Date Lissett Vega MD [address] [place] [phone] PCP - General Family Medicine 01/17/23 Team Status: Active Member Role Status Dates Jes Vieira MD Quarter Trimmer Active Lissett Vega MD Primary Care Provider Active Team Status: Active Member Role Status Dates Lissett Vega MD Primary Care Provider Active Start: September 05, 2023 Hans Colby Attending Provider Active Start: 2023 Team Status: Inactive Member Role Status Dates Lissett Vega MD Primary Care Provider Active Start: October 02, 2023 End: October 02, 2023 Andrea Morillo DPM [place] Attending Provider Active Start: October 02, 2023 End: October 02, 2023 Team Status: Inactive Member Role Status Dates Lissett Vega MD Primary Care Provider Active Start: February 19, 2024 End: February 19, 2024 Demetri Shah MD Attending Provider Activ e Start: February 19, 2024 End: February 19, 2024 Goals (unrecognized section and content) Goals may [...] BE BASED ON THE PRIMARY CLINICAL RECORDS. [employer] provides no warranty or guarantee of the accuracy or completeness of information in this document.
== END 2024-04-30 09:39 | disposition home or self-care (01) ==
LOC: RAD 09:40
PROVIDERS: PCP Family Medicine; Visit Provider Podiatrist Foot & Ankle Surgery
DX: M79.672 Pain in left foot (principal); Z98.890 Other specified postprocedural states
CPT/HCPCS: 73610; 73630

== ENCOUNTER 2024-06-10 18:45 | Outpatient (OUT) | payer OTHER, SELFPAY ==
--- OUTSIDE RECORDS SUMMARY | 2024-06-10 18:49 | XMS_ITS | CCD ---
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 Name Role Phone Unavailable Primary Care Provider [...] Unavailable Lissett Vega MD Primary Care Provider [phone] LISSETT VEGA Primary Care Physician Debbie DE LOS SANTOS Attending Unavailable Debbie DE LOS SANTOS Attending Unavailable MD Lissett Vega Primary Care Provider MD Jes Vieira Attending Provider HANS COLBY Attending Unavailable HANS COLBY Attending [...] physicia Propensity to adverse reactions 7 Comment:Done Ceradis Other (5 sources) Allergies Reconciled Propensity to adverse reactions Unknown Ceradis Other (1 source) No Known Medication Allergies; Translations: [No Known Medication Allergies] Propensity to adverse reactions (disorder) [facility] Repository Medications Current Medications Medication Drug [...] Provider: Gary Fung take 1 capsule by [facility] every twenty-four hours Flomax 0.4 MG 1 [...] Test Name Value Interpretation Reference Range Facility [facility] 12-14-2023 [facility] Visit (SP) Office (HEMCA3) ----- BEN CRUZ ([id number]) 1975 F Date Time Provider Department 12/14/23 [...] No Does patient want to see a Design Center Consultant? No (yes to any of above refer patient to schedulers for dietitian appointment) ) Does patient have any new or increased numbness or tingling of extremities? No Is patient interested in fertility information? NA Does patient need any prescription refills? No Does patient have an advanced directive in place? No, Electronically Signed By: ANABEL Cortes Michael J, MD 12/19/2023 3:07 PM Signed [facility] GASTROENTEROLOGY ONCOLOGY ESTABLISHED PATIENT VISIT PATIENT [...] INTERVAL HISTORY: Since last visit, she visited gummed tape press operator in 10/2023, and was reassured, no [...] Lymph 1.00 - 4.00 k/uL 2.12 Abs Wilson <0.87 k/uL 0.72 Abs Eosin <0.46 k/uL [...] in 0 (more content not included)... Normal [facility] Jacky 10-02-2023 L Specimen: [id number] Received: 10/02/23 Status: CT [place] Num: [id number] Spec Type: Surgical Subm Dr: Andrea Morillo DPM, MS Tissues: A Skin - Plastic Repair/Scar (HYPERTROPHIC SCAR LT ANKLE) Procedures: HE, Gross/Micro L2 Age/ Patient Sex Location Account Attending Physician Ben Cruz 48/F LABE[facility] [id number] Andrea Morillo DPM, MS SPEC NUM: [id number] RECD: 10/02/23 STATUS: CT [place] NUM: [id number] JOE: 10/02/[address]: Andrea Morillo DPM, MS ENTERED: 10/02/[address] [facility] [address]: Stephanie Ro SPEC TYPE: Surgical DEPT: [...] and entirely submitted in A1. CPT Codes 57639 Specimen: [id number] Received: 10/02/23 Status: CT [place] Num: [id number] Spec Type: Surgical Subm Dr: Andrea Morillo,DPBrendan, MS Tissues: A Skin - Plastic Repair/Scar (HYPERTROPHIC SCAR LT ANKLE) Procedures: Melissa HOLMAN/Jerome L2 Patient: Ben Cruz [id number] (Continued) Signed (signature on file) Demian Saleh MD 10/03/23 1528 Normal [facility] Yael 09-12-2023 CN Office Visit (NSMRCC ) ----- BEN CRUZ ([id number]) 1975 F Date Time Provider Department 09/12/23 11:45 AM ABDIAZIZ BUNCH [facility] During your visit today, we recorded the following information about you: Pulse Blood pressure Weight 81/minute 141/86 97 kg Abdiaziz Bunch, STEAM PLANT RECORDS CLERK.PHYSICIAN OBSTETRICIAN 09/12/2023 1:21 PM Signed [facility] NEURO-ONCOLOGY OUTPATIENT CLINIC NOTE [...] DATE OF EXAM: Sep 12 2023 11:35AM [facility] 0295 - MRI BRAIN WO/W IVCON / ACCESSION (more content not included)... Normal [facility] MR Brain WO and W contrast I Von 09-12-2023 IMPRESSION: Unchanged size of presumed 9 mm meningioma along the left frontal convexity without substantial mass effect. Administrative Assistant Data Entry: TORI Transcribe Date/Time: Sep 12 2023 11:55A Dictated by : IAN DUNNE MD This examination was interpreted and the report reviewed and electronically signed by: IAN DUNNE MD on Sep 12 2023 11:58AM [facility] DIVISION OF RADIOLOGY * * *Final Report* * * DATE OF EXAM: Sep 12 2023 11:35AM [facility] 0295 - MRI BRAIN WO/W IVCON [...] DATE OF EXAM: Sep 12 2023 11:35AM [facility] 0295 - MRI BRAIN WO/W IVCON [...] left frontal convexity without substantial mass effect. Administrative Assistant Data [facility] Trans[facility] Date/Time: Sep 12 2023 11:55A Dictated by : IAN DUNNE MD This examination was interpreted and the report reviewed and electronically signed by: IAN DUNNE MD on Sep 12 2023 11:58AM EST [facility] Radiology Study observation (narrative) [facility] MR Brain WO and W contrast I VOrdered By: Ccf Provider on 09-12-2023 [facility] MRI BRAIN WO/W IVCONon 09-11 MRI BRAIN WO/W IVCON * * *Final Report* * * DATE OF EXAM: Sep 12 2023 11:35AM [facility] 0295 - MRI BRAIN WO/W IVCON [...] left frontal convexity without substantial mass effect. Administrative Assistant Data Entry: [facility] Transcribe Date/Time: Sep 12 2023 11:55A Dictated by : IAN DUNNE MD This examination was interpreted and the report reviewed and electronically signed by: IAN DUNNE MD on Sep 12 2023 11:58AM EST [id number] Normal [facility] ----- BEN CRUZ ([id number]) 1975 F Date Time Provider Department 09/08/23 ABDIAZIZ BUNCH [facility] During your visit today, we recorded the following information about you: Johann Henriquez RN 09/08/2023 12:36 PM Signed Patient called in requesting ativan for her MRI. Chart review indicates patient has been prescribed 1mg of ativan prior to past MRI's and has tolerated it well. Orders pended to provider for review. Johann Henriquez RN Precision Farming Specialist Allergies As of Date: 09/08/2023 (No Known [...] Status:Closed by ABDIAZIZ BUNCH on 09/08/23 Normal [facility] Human papilloma virus 16+18+ 31+33+35+39+45+51+52+56+58+59+66+68 DNA [Presence] in [place] 09-05-2023 HPV 16+18+31+33+35+39+ 45+51+52+56+58+59+ 66+68 DNA Probe+sig amp Ql (Cvx) Negative Negative [facility] Comment on above: This nucleic acid am plification test detects fourteen high- risk HPV types (16,18,31,33,35,39,45,51,52,56,58,59,66,68)without differentiation.Performed at: =G - [facility] [address] [id number] Director: Chani Rios MD, Phone: [phone] at: [facility] [id number] [place], [place] [id number] Director: Wilmer Cuevas MD, Phone: [phone] No Panel Informationon 09-04 HPV High Risk Other Comment Note . [facility] Comment on above: TESTS RESULT FLAG UN ITS REF RANGE LAB DIAG NOSIS: 02 NEGATIVE FOR INTRAEPITHELIAL LESION OR MALIGNANCY. FUNGAL ORGANISMS MORPHOLOGICALLY CONSISTENT WITH MOSES SPECIES ARE PRESENT.Specimen adequacy: 02 Satisfactory for evaluation. Endocervical and/or squamous metaplastic cells (endocervical component) are present.Performed by: Bradley Campbell, Verification Rep (ASCP). 02Note: Note 03 The Pap smear [...] Low,>-Panic High,A-Abnormal,AA-Critical Abnormal -Performed at:02 [facility] [address] [address] [place] [address] Wilmer Cuevas MD, [address] [facility] [address] [place] [address] Chani Rios MD, Reference Lab Test Patient Age Note . [facility] Comment on above: TESTS RESULT FLAG UN ITS REF RANGE LAB Clinician Provided Cytology Information Source.............Cervix;Endocervix No. of containers..01 ThinPrep VialAge Bryono LOUISE Katelyn... 3065 FLAG LEGEND: L-Low Normal,H-High Normal,LL-Alert Low,HH-Alert High <-Panic Low,>-Panic High,A-Abnormal,AA-Critical Abnormal -Performed at:01 =G [facility] [address] [place] [address] Chani Rios MD, CNOVSPon 06-13-2023 [facility] Visit (SP) Office (HEMCA3) ----- BEN CRUZ ([id number]) 1975 F Date Time Provider Department 06/13/23 9:30 AM [facility] During your visit today, we recorded the following information about you: Temperature Pulse Respiration Blood pressure 97.6 degrees 79/minute 20/minute 142/92 Weight 95.8 kg Nicole Beal MD 06/14/2023 3:36 PM Addendum [facility] GASTROENTEROLOGY ONCOLOGY ESTABLISHED PATIENT VISIT PATIENT [...] no new issues and last visit with gummed tape press operator was about 6 months ago. She [...] Lymph 1.00 - 4.00 k/uL 2.12 Abs Wilson <0.87 k/uL 0.72 Abs Eosin <0.46 k/uL [...] 6 months - recommend follow up with gummed tape press operator Patient seen and discussed with Gastroenterology [...] beckwith co (more content not included)... Normal [facility] ECG 12 lead ECGon 06-05-2023 ECG 12 lead ECG [facility] [place] [address] Electrocardiograph Report Signed Patient: Ben Cruz MR#: [id number] 3 : 1975 Acct:[id number] Age/Sex: 47 / F ADM Date: 06/05/23 Loc: EKGCARDIO Room: Type: [facility] Attending Dr: Jes Vieira MD [...] previous ECGs available Confirmed by Demetri Shah ([id number]) on 06/07/2023 7:37:06 PM Referred By: Electronically Signed By:Demetri Shah Transcribed By: MUS Signed By Demetri Shah MD 06/07/231936 Normal [facility] CNCOon 05-12-2023 CNCO Letter Text Normal [facility] CNPNon 05-12-2023 [facility]NPN Telephone [facility] ----- BEN CRUZ ([id number]) 1975 F Date Time Provider Department 05/12/23 GURPREET BECKWITH [facility] During your visit today, we recorded the following information about you: Marli Patino 05/12/2023 9:28 AM Signed Per Johann BIRD)-via email: This patient had GK in January and their follow up MRI and appointment was never scheduled. She needs an MRI at [facility] and follow up same day [...] Encounter Status:Closed by MARLI PATINO on 05/12/23 [facility] Louise 05-11-2023 CNPN Telephone ([facility]) ----- BEN CRUZ ([id number]) 1975 F Date Time Provider Department 05/11/23 JOHANN HENRIQUEZ [facility] During your visit today, we [...] Fully Assessed Reason for Visit: Patient Question [3757] Prescriptions as of 05/11/2023 - dexAMETHasone (DECADRON) [...] Status:Closed by JOHANN HENRIQUEZ on 05/11/23 Normal [facility] Outside Colonoscopyon 2022 Outside Colonoscopy [id number]#1.00TIFF [facility] Reminderson 03-09-2023 Reminders - From: Veronica Jack LPN To: N - Clinical; Sent: 03/09/2023 13:42:54 EST Show up: 02/06/2033 07:00:00 EST Subject: colonoscopy recall Due Date/Time: 03/08/2033 07:00:00 EST Reminder/Recall Patient due for screening colonoscopy 03/08/2033. [facility] Consent for Procedure/Surger yon 02-21-2023 Consent for Procedure/Surgery [id number]#1.00TIFF [facility] Facesheeton 02-20-2023 Facesheet [id number]#1.00TIFF [facility] Ambulatory Visit Summaryon 1 04-19-2022 Ambulatory Visit [...] you for choosing us for your care. [facility] ----- BEN CRUZ ([id number]) 1975 F Date Time Provider Department 02/07/23 JOHANN HENRIQUEZ [facility] During your visit today, we [...] Encounter Status:Closed by JOHANN HENRIQUEZ on 02/07/23 [facility] 02-06-2023 [facility] ----- BEN CRUZ ([id number]) 1975 F Date Time Provider Department 02/06/23 JOHANN HENRIQUEZ [facility] During your visit today, we recorded the following information about you: Johann Henriquez RN 02/06/2023 1:20 PM Signed Calling Ben for post-GKRS follow-up. Unable to reach at this time. Left voicemail. Johann Henriquez RN 02/07/2023 1:19 PM Signed 2nd attempt to reach out, patient unavailable. Will send Tepha message with contact information to call if [...] Encounter Status:Closed by JOHANN HENRIQUEZ on 02/07/23 [facility] Enrike 01-27-2023 CNOP Operative Note (Enc) (NSCAMN) ----- Encounter Status:Closed by GURPREET BECKWITH on 01/27/23 [facility] CNOP Operative Note (Enc) ([facility]N) ----- Encounter Status:Closed by GURPREET BECKWITH on 01/27/23 [facility] Yael 01-27-2023 CNOV Office Visit (NSCAMN ) ----- BEN CRUZ ([id number]) 1975 F Date Time Provider Department 01/27/23 12:30 PM GURPREET BECKWITH [facility] During your visit today, we [...] 7.1 AL (more content not included)... Normal [facility] CNOV Office Visit (NOGKCA ) ----- BEN CRUZ ([id number]) 1975 F Date Time Provider Department 01/27/23 [...] Dr. G DO Beckwith Kaitlin Plank, RN 5735 Mask SIM completed. Ben Cruz returned to department for treatment # 1 of 1. Is patient receiving immunotherapy infusions: Not Applicable. Patient's Age: 47 Menstruation Status: [facility]sterectomy [facility] Results: N/A test not performed QC: Yes, testing is valid (or protocol followed for invalid testing). Reference range: Normal Value = Negative for hCG. POC performed by: Gayle Acevedo RN 9972 4 mg Decadron PO given prior to GKRS per order of Dr. Virgil Beckwith 0946 GKRS start time. 1016 GKRS end time. 1025 Discharge instructions given to patient; instructions reviewed by this RN; patient/family verbalized understanding; patient discharged via/with BIGG Segura Kaitlin, RN 01/27/2023 8:35 AM Addendum [facility] Discharge Instructions [...] physician or hospital other than the [facility] with any problem related to the [...] may your physician, Dr. Virgil Beckwith at [phone] Monday through Monday 8:00 am to 5:00 pm, or call the Gamma Knife nurse Monday through Monday 8:00 am to 4:00 pm at [phone]. In the evening or on weekends, call [phone] or toll-free [phone] and ask the slitter cut off operator to page your neurosurgeon's resident systems protection technician. Referring Provider: GURPREET BECKWITH [[id number]] Allergies As [...] Other instructions from your clinician: [facility] Discharge Instructions As with any surgery there are risks and potential side effects. Th (more content not included)... Normal [facility] CT BRAIN WO IVCONon 01-28-20 CT [...] were required COMPARISON: Concurrent brain MRI RESULT: Counselor Dormitory (topogram) images: No additional findings. Post-operative change: [...] OF EXTRA-AXIAL ENHANCING TISSUE SEEN ON MRI Administrative Assistant Data Entry: PSCB Transcribe Date/Time: Jan 27 2023 8:21A [...] FRONTAL LOBE, UNCHANGED GOING BACK TO 06/01/2021 Administrative Assistant Data Entry: PSCB Transcribe Date/Time: Jan 27 2023 8:08A Dictated by : ESTUARDO WHALEY MD This examination was interpreted and the report reviewed and electronically signed by: ESTUARDO WHALEY MD on Jan 27 2023 8:20AM EST [id number] Normal [facility] MRI BRAIN LOCALIZATION W IVC ONon 01-27-2023 [facility] Physician Referralon 023 Physician Referral [id number]#[id number] Normal [facility] Physician Referralon 023 Physician Referral [id number]#1.00TIFF Normal [facility] CNOVSPon 12-22-2022 CNOVSP Visit (SP) Office (HEMCA3) ----- BEN CRUZ ([id number]) 1975 F Date Time Provider Department 12/22/22 [...] were negative. Declined an adjuvant trial in [place]. Baseline imaging today is negative CC: Melanoma [...] No Does patient want to see a Design Center Consultant? No (yes to any of above refer [...] for Encounter Date Provider Department Center 12/22/2022 [id number] ECHEVERRIA [facility] [place] [facility] Prescriptions as [...] No Does patient want to see a Design Center Consultant? No (yes to any of above refer patient to schedulers for dietitian appointment) ) Does patient have any new or increased numbness or tingling of extremities? No Is patient interested in fertility information? No Does patient need any prescription refills? No Does patient have an advanced directive in place? No, Patient refused referral to Social Work or Resource Center Normal [facility] MRI BRAIN WO/W IVCONon 10-17 [facility] MRI BRAIN WO/W IVCONon 02-23 [facility] CBC AUTO DIFFon 11-18-2021 BASO # 0.0 103/ul Normal 0.0-0.1 [facility] Comment on above: Performed By: #### H FPFCBC #### [facility] [address] [place] [address] Dr. Arcenio Billy Basophils/100 WBC (Bld) 0.4 % Normal 0.2-2.0 [facility] Comment on above: Performed By: #### H FPFCBC #### [facility] [address] [place] [address] Dr. Arcenio Billy EO # 0.2 103/ul Normal 0.0-0.7 [facility] Comment on above: Performed By: #### H FPFCBC #### [facility] [address] [place] [address] Dr. Arcenio Billy Eosinophils/100 WBC (Bld) 3.0 % Normal 0.9-7.0 [facility] Comment on above: Performed By: #### H FPFCBC #### [facility] [address] [place] [address] Dr. Arcenio Billy Erythrocyte distribution width (RBC) [Ratio] 12.1 % Normal 11.0-15.0 [facility] Comment on above: Performed By: #### H FPFCBC #### [facility] [address] [place] [address] Dr. Arcenio Billy Hematocrit (Bld) [Volume fraction] 43.1 % Normal 36.0-48.0 [facility] Comment on above: Performed By: #### H FPFCBC #### [facility] [address] [place] [address] Dr. Arcenio Billy Hemoglobin (Bld) [Mass/Vol] 14.1 g/dL Normal 12.0-16.0 [facility] Comment on above: Performed By: #### H FPFCBC #### [facility] [address] [place] [address] Dr. Arcenio Billy IG # 0.01 10e3/ul Normal 0.00-0.03 [facility] Comment on above: Performed By: #### H FPFCBC #### [facility] [address] [place] [address] Dr. Arcenio Billy IG % 0.2 % Normal 0.0-0.5 [facility] Comment on above: Performed By: #### H FPFCBC #### [facility] [address] [place] [address] Dr. Arcenio Billy LYMPH # 1.9 103/ul Normal 1.2-3.8 [facility] Comment on above: Performed By: #### H FPFCBC #### [facility] [address] [place] [address] Dr. Arcenio Billy Lymphocytes/100 WBC (Bld) 35.7 % Normal 20.5-60.0 [facility] Comment on above: Performed By: #### H FPFCBC #### [facility] [address] [place] [address] Dr. Arcenio Billy MCH (RBC) [Entitic mass] 28.8 pg Normal 26.7-34.0 [facility] Comment on above: Performed By: #### H FPFCBC #### [facility] [address] [place] [address] Dr. Arcenio Billy MCHC (RBC) [Mass/Vol] 32.7 g/dL Normal 29.9-35.2 [facility] Comment on above: Performed By: #### H FPFCBC #### [facility] [address] [place] [address] Dr. Arcenio Billy MCV (RBC) [Entitic vol] 88.1 fL Normal 81.0-99.0 [facility] Comment on above: Performed By: #### H FPFCBC #### [facility] [address] [place] [address] Dr. Arcenio Billy MONO # 0.5 103/ul Normal 0.3-0.8 [facility] Comment on above: Performed By: #### H FPFCBC #### [facility] [address] [place] [address] Dr. Arcenio Billy Monocytes/100 WBC (Bld) 9.9 % Normal 1.7-12.0 [facility] Comment on above: Performed By: #### H FPFCBC #### [facility] [address] [address] [address] Arcenio Billy NEUT # 2.7 103/ul Normal 1.4-6.5 [facility] Comment on above: Performed By: #### H FPFCBC #### [facility] [address] [address] [address] Arcenio Billy Neutrophils/100 WBC (Bld) 50.8 % Normal 43.0-75.0 [facility] Comment on above: Performed By: #### H FPFCBC #### [facility] [address] [address] [address] Arcenio Billy Platelet mean volume (Bld) [Entitic vol] 8.9 fL Critically low 9.5-13.5 [facility] Comment on above: Performed By: #### H FPFCBC #### [facility] [address] [address] [address] Arcenio Billy PLT 271 103/ul Normal 150-450 [facility] Comment on above: Performed By: #### H FPFCBC #### [facility] [address] [address] [address] Arcenio Billy RBC 4.89 106/ul Normal 4.20-5.40 [facility] Comment on above: Performed By: #### H FPFCBC #### [facility] [address] [address] [address] Arcenio Billy WBC 5.3 103/ul Normal 4.0-11.0 [facility] Comment on above: Performed By: #### H FPFCBC #### [facility] [address] [place] [address] Dr. Arcenio Billy HEALTH[facility] PROFILEon 022 Albumin [Mass/Vol] 3.7 g/dL Normal 3.4-5.0 [facility] Comment on above: Performed By: #### H FPF #### [facility] [address] [address] [address] Arcenio Billy Albumin/Globulin [Mass ratio] 1.1 {ratio} Normal [facility] Comment on above: Performed By: #### H FPF #### [facility] [address] [address] [address] Arcenio Billy ALP [Catalytic activity/Vol] 60 U/L Normal 46-116 [facility] Comment on above: Performed By: #### H FPF #### [facility] [address] [address] [address] Arcenio Billy ALT [Catalytic activity/Vol] 47 U/L Normal 14-59 [facility] Comment on above: Performed By: #### H FPF #### [facility] [address] [address] [address] Arcenio Billy AST [Catalytic activity/Vol] 25 U/L Normal 15-37 [facility] Comment on above: Performed By: #### H FPF #### [facility] [address] [place] [address] Dr. Arcenio Billy Bilirubin [Mass/Vol] 0.5 mg/dL Normal 0.2-1.0 [facility] Comment on above: Performed By: #### H FPF #### [facility] [address] [address] [address] Arcenio Billy Calcium [Mass/Vol] 8.8 mg/dL Normal 8.5-10.1 [facility] Comment on above: Performed By: #### H FPF #### [facility] [address] [address] [address] Arcenio Billy Chloride [Moles/Vol] 103 mmol/L Normal 98-107 [facility] Comment on above: Performed By: #### H FPF #### [facility] [address] [address] [address] Arcenio Billy CHOL-HDL RATIO NORM SEE BELOW Normal [facility] Comment on above: Result Comment: 3.3 - 4.4 LOW RISK 4.4 - 7.1 AVERAGE RISK 7.1 - 11.0 MODERATE RISK >11.0 HIGH RISK Performed By: #### H FPF #### [facility] [address] [place] [address] Dr. Arcenio Billy Cholesterol [Mass/Vol] 352 mg/dL Critically high <=200 [facility] Comment on above: Performed By: #### H FPF #### [facility] [address] [address] [address] Arcenio Billy Cholesterol in HDL [Mass/Vol] 34 mg/dL Critically low 40-60 [facility] Comment on above: Performed By: #### H FPF #### [facility] [address] [address] [address] Arcenio Billy Cholesterol in LDL [Mass/Vol] 274.2 mg/dL Normal [facility] Comment on above: Performed By: #### H FPF #### [facility] [address] [address] [address] Arcenio Billy Cholesterol.total/ Cholesterol in HDL [Mass ratio] 10.4 {ratio} Normal [facility] Comment on above: Performed By: #### H FPF #### [facility] [address] [address] [address] Arcenio Billy CO2 [Moles/Vol] 25.7 mmol/L Normal 21.0-32.0 [facility] Comment on above: Performed By: #### H FPF #### [facility] [address] [place] [address] Dr. Arcenio Billy Creatinine [Mass/Vol] 0.91 mg/dL Normal 0.55-1.02 [facility] Comment on above: Performed By: #### H FPF #### [facility] [address] [address] [address] Arcenio Billy Globulin (S) [Mass/Vol] 3.4 g/dL Normal [facility] [facility] Comment on above: Performed By: #### H FPF #### [facility] [address] [address] [address] Arcenio Billy Glucose [Mass/Vol] 91 mg/dL Normal 74-106 [facility] Comment on above: Performed By: #### H FPF #### [facility] [address] [address] [address] Arcenio Billy HDL NORMAL > or = 60 mg/dl - LO W CARDIOVASCULAR RISK <40 mg/dl - HIGH CARDIOVASCULAR RISK Normal [facility] Comment on above: Performed By: #### H FPF #### [facility] [address] [address] [address] Arcenio Billy LDL CALC NORMAL SEE BELOW Normal [facility] Comment on above: Result Comment: <100 mg/dl OPTIMAL 100 - 129 mg/dl NEAR OR ABOVE OPTIMAL 130 - 159 mg/dl BORDERLINE HIGH 160 - 189 mg/dl HIGH >190 mg/dl VERY HIGH Performed By: #### H FPF #### [facility] [address] [address] [address] Arcenio Billy Potassium [Moles/Vol] 4.1 mmol/L Normal 3.5-5.1 [facility] Comment on above: Performed By: #### H FPF #### [facility] [address] [address] [address] Arcenio Billy Protein [Mass/Vol] 7.1 g/dL Normal 6.4-8.2 [facility] Comment on above: Performed By: #### H FPF #### [facility] [address] [address] [address] Arcenio Billy Sodium [Moles/Vol] 139 mmol/L Normal 136-145 [facility] Comment on above: Performed By: #### H FPF #### [facility] [address] [address] [address] Arcenio Billy Triglyceride [Mass/Vol] 219 mg/dL Critically high <=150 [facility] Comment on above: Performed By: #### H FPF #### [facility] [address] [address] [address] Arcenio Billy TSH 1.717 uIU/mL Normal 0.358-3.740 [facility] Comment on above: Performed By: #### H FPF #### [facility] [address] [address] [address] Arcenio Billy Urea nitrogen [Mass/Vol] 11.0 mg/dL Normal 7.0-18.0 [facility] Comment on above: Performed By: #### H FPF #### [facility] [address] [address] [address] Arcenio Billy Urea nitrogen/Creatinin e [Mass ratio] 12.1 mg/mg Normal [facility] Comment on above: Performed By: #### H FPF #### [facility] [address] [address] [address] Arcenio Bilyl VLDL CALC 43.8 mg/dL Normal [facility] Comment on above: Performed By: #### H FPF #### [facility] [address] [place] [address] Dr. Arcenio Billy PAP ACOG PANEL 2: 30 to 65on 09-19-2021 . . Normal [facility] Comment on above: Result Comment: Perf ormed at: WB Performed By: #### [id number] #### [facility] [address] [place] [address] Dr. Arcenio Billy Age Gdln ACOG Testing 30-65 Normal [facility] Comment on above: Performed By: #### [id number] #### [facility] [address] [place] [address] Dr. Arcenio Billy DIAGNOSIS: Comment Normal [facility] Comment on above: Result Comment: NEGA TIVE FOR INTRAEPITHELIAL LESION OR MALIGNANCY. FUNGAL ORGANISMS MORPHOLOGICALLY CONSISTENT WITH MOSES SPECIES ARE PRESENT. Performed at: WB Performed By: #### [id number] #### [facility] [address] [place] [address] Dr. Arcenio Billy HPV Aptima Negative Normal Negative [facility] Comment on above: Result Comment: This nucleic acid amplification test detects fourteen high-risk HPV types (16,18,31,33,35,39,45,51,52,56,58,59,66,68) without differentiation. Performed at: =G Performed By: #### [id number] #### [facility] [address] [place] [address] Dr. Arcenio Billy Methodology: Comment Normal [facility] Comment on above: Result Comment: This liquid based ThinPrep(R) pap test was screened with the use of an image guided system. Performed at: WB Performed By: #### [id number] #### [facility] [address] [address] [address] Arcenio Billy Note: Comment Normal [facility] Comment on above: Result Comment: The Pap smear is a screening test designed to aid in the detection of premalignant and malignant conditions of the uterine cervix. It is not a diagnostic procedure and should not be used as the sole means of detecting cervical cancer. Both false-positive and false-negative reports do occur. . Performed at: WB Performed By: #### [id number] #### [facility] [address] [address] [address] Arcenio Billy Performed by: Comment Normal [facility] Comment on above: Result Comment: Bronson Cordero, Verification Rep (ASCP) Performed at: WB Performed By: #### [id number] #### [facility] [address] [address] [address] Arcenio Billy Specimen adequacy: Comment Normal [facility] Comment on above: Result Comment: Sati sfactory for evaluation. No endocervical component is identified. Performed at: WB Performed By: #### [id number] #### [facility] [address] [address] [address] Arcenio Billy MG MAMM SCREEN 3D JULIO CÉSAR CADon 09-08-2021 MG MAMM SCREEN 3D JULIO CÉSAR CAD Patient: BEN CRUZ Exam Date: 09/08/2021 : 1975 Gender:F Ordering : DR CHELITA VILLANUEVA . Admission #: [id number] Family : Order #: [id number] CLICK HERE TO VIEW EXAM RADIOLOGY REPORT [...] pancreatic cancer at age 71. LOCATION: [facility] BREAST COMPOSITION: Scattered areas fibroglandular density. [...] MD on 09/08/2021 at 11:41 Normal [facility] MRI BRAIN WO/W IVCONon 08-23 [facility] MRI LIVER WO/W IVCONon 06-16 [facility] MRI BRAIN WO/W IVCONon 06-01 [facility] CT Chest W contrast Juanjo IMPRESSION: 1. [...] any questions regarding this interpretation, please call [phone]. If you are unable to reach us at the number above, please feel free to contact [facility] eRadiology at [phone]. DIVISION OF RADIOLOGY * * *Final Report* * * DATE OF EXAM: May 13 2021 9:00AM [facility] 0539 - CT CHEST W IVCON / [...] of focal fatty sparing or perfusion anomaly. Counselor Dormitory (topogram) images: No additional findings. DIVISION OF RADIOLOGY Provider, [facility] - 05/13/2021 * * *Final Report* * * DATE OF EXAM: May 13 2021 9:00AM [facility] 0539 - CT CHEST W IVCON / [...] of focal fatty sparing or perfusion anomaly. Counselor Dormitory (topogram) images: No additional findings. IMPRESSION IMPRESSION: [...] any questions regarding this interpretation, please call [phone]. If you are unable to reach us at the number above, please feel free to contact [facility] eRadiology at [phone]. [facility] Radiology Study observation (narrative) [facility] CT Chest W contrast IVOrdere d By: [facility] Provider on 05-13-2021 [facility] Vital Signs Date Time Vital Sign Value Performing Clinician Facility 02-19-2024 15:49-0500 Body height 162.56 cm [facility] 02-19-2024 15:49-0500 Body mass index (BMI) [Ratio] 38.9 kg/m2 [facility] 02-19-2024 15:49-0500 Body weight 102.96 kg [facility] 02-19-2024 15:49-0500 Diastolic blood pressure 86 mm[Hg] [facility] 02-19-2024 15:49-0500 Heart rate 87 /min [facility] 02-19-2024 15:49-0500 Respiratory rate 18 /min [facility] 02-19-2024 15:49-0500 SaO2% (BldA) [Mass fraction] 95 % [facility] 02-19-2024 15:49-0500 Systolic blood pressure 136 mm[Hg] [facility] 12-14-2023 10:46-0400 Body height 162.6 cm Debbie Echeverria MD Work Phone: [facility] 12-14-2023 10:46-0400 Body mass index (BMI) [Ratio] 38.22 kg/m2 Debbie Echeverria MD Work Phone: [facility] 12-14-2023 10:46-0400 Body temperature 97.59 [degF] Debbie Echeverria MD Work Phone: [facility] 12-14-2023 10:46-0400 Body weight 101 kg Debbie Echeverria MD Work Phone: [facility] 12-14-2023 10:46-0400 Diastolic blood pressure 85 mm[Hg] Debbie Echeverria MD Work Phone: [facility] 12-14-2023 10:46-0400 Heart rate 85 /min Debbie Echeverria MD Work Phone: [facility] 12-14-2023 10:46-0400 Respiratory rate 20 /min Debbie Echeverria MD Work Phone: [facility] 12-14-2023 10:46-0400 SaO2% (BldA) [Mass fraction] 97 % Debbie Echeverria MD Work Phone: [facility] 12-14-2023 10:46-0400 Systolic blood pressure 140 mm[Hg] Debbie Echeverria MD Work Phone: [facility] 09-12-2023 11:41-0400 Body mass index (BMI) [Ratio] 35.63 kg/m2 Abdiaziz Bunch [employer] RECORDS CLERK.PHYSICIAN OBSTETRICIAN Work Phone: [facility] 09-12-2023 11:41-0400 Body weight 97 kg Abdiaziz Bunch [employer] RECOR[employer] CLERK.PHYSICIAN OBSTETRICIAN Work Phone: [facility] 09-12-2023 11:41-0400 Diastolic blood pressure 86 mm[Hg] Abdiazizmerary Bunch [employer] RECORDS CLERK.PHYSICIAN OBSTETRICIAN Work Phone: [facility] 09-12-2023 11:41-0400 Heart rate 81 /min Abdiazizmerary Bunch [employer] RECOR[employer] CLERK.PHYSICIAN OBSTETRICIAN Work Phone: [facility] 09-12-2023 11:41-0400 SaO2% (BldA) [Mass fraction] 99 % Abdiaziz Bunch [employer] RECOR[employer] CLERK.PHYSICIAN OBSTETRICIAN Work Phone: [facility] 09-12-2023 11:41-0400 Systolic blood pressure 141 mm[Hg] Abdiaziz Bunch [employer] RECOR[employer] CLERK.PHYSICIAN OBSTETRICIAN Work Phone: [facility] 07-03-2023 10:59-0400 Body height 162.56 cm MD Lissett Vega Work Phone: [facility] 06-13-2023 09:34-0400 Body temperature 97.59 [degF] Debbie Echeverria MD Work Phone: [facility] 06-13-2023 09:34-0400 Body weight 95.8 kg Debbie Echeverria MD Work Phone: [facility] 06-13-2023 09:34-0400 Diastolic blood pressure 92 mm[Hg] Debbie Echeverria MD Work Phone: [facility] 06-13-2023 09:34-0400 Heart rate 79 /min Debbie Echeverria MD Work Phone: [facility] 06-13-2023 09:34-0400 Respiratory rate 20 /min Debbie Echeverria MD Work Phone: [facility] 06-13-2023 09:34-0400 SaO2% (BldA) [Mass fraction] 96 % Debbie Echeverria MD Work Phone: [facility] 06-13-2023 09:34-0400 Systolic blood pressure 142 mm[Hg] Debbie Echeverria MD Work Phone: [facility] 06-05-2023 13:23-0500 Body height 162.56 cm MD Lissett Vega Work Phone: [facility] 06-05-2023 13:23-0500 Body mass index (BMI) [Ratio] 35.6 kg/m2 MD Lissett Vega Work Phone: [facility] 06-05-2023 13:23-0500 Body weight 94.34 kg MD Lissett Vega Work Phone: [facility] 06-05-2023 13:23-0500 Diastolic blood pressure 84 mm[Hg] MD Lissett Vega Work Phone: [facility] 06-05-2023 13:23-0500 Heart rate 88 /min MD Lissett Vega Work Phone: [facility] 06-05-2023 13:23-0500 Respiratory rate 18 /min MD Lissett Vega Work Phone: [facility] 06-05-2023 13:23-0500 SaO2% (BldA) [Mass fraction] 95 % MD Lissett Vega Work Phone: [facility] 06-05-2023 13:23-0500 Systolic blood pressure 122 mm[Hg] MD Lissett Vega Work Phone: [facility] 03-16-2023 13:45-0500 Body height 162.56 cm Lissett Vega Other [facility] Other 03-16-2023 13:45-0500 Body mass index (BMI) [Ratio] 34.5 kg/m2 Lissett Vega Other [facility] Other 03-16-2023 13:45-0500 Body temperature 99.1 [degF] Lissett Vega Other [facility] Other 03-16-2023 13:45-0500 Body weight 91.17 kg Lissett Vega Other [facility] Other 03-16-2023 13:45-0500 Diastolic blood pressure 88 mm[Hg] Lissett Vega Other [facility] Other 03-16-2023 13:45-0500 SaO2% (BldA) [Mass fraction] 98 % Lissett Vega Other [facility] Other 03-16-2023 13:45-0500 Systolic blood pressure 128 mm[Hg] Lissett Vega Other [facility] Other 02-17-2023 14:47-0500 Blood Pressure Location Debbie ApertioL [facility] 02-17-2023 14:47-0500 Diastolic blood pressure 84 mm[Hg] Debbie NILL [facility] 02-17-2023 14:47-0500 Heart rate 76 /min Debbie NILL [facility] 02-17-2023 14:47-0500 Respiratory rate 16 /min Debbie NILL [facility] 02-17-2023 14:47-0500 Systolic blood pressure 128 mm[Hg] Debbie NILL [facility] 09-21-2022 11:30-0400 Body height 162.56 cm Lissett Vega Other [facility] Other 09-21-2022 11:30-0400 Body mass index (BMI) [Ratio] 36.56 kg/m2 Lissett Vega Other [facility] Other 09-21-2022 11:30-0400 Body weight 96.62 kg Lsisett Vega Other [facility] Other 09-21-2022 11:30-0400 Diastolic blood pressure 84 mm[Hg] Lissett Vega Other [facility] Other 09-21-2022 11:30-0400 Systolic blood pressure 137 mm[Hg] Lissett Vega Other [facility] Other 06-21-2022 10:32-0400 Body height 165 cm Debbie Echeverria MD Work Phone: [facility] 06-21-2022 10:32-0400 Body temperature 96.8 [degF] Debbie Echeverria MD Work Phone: [facility] 06-21-2022 10:32-0400 Body weight 98.79 kg Debbie Echeverria MD Work Phone: [facility] 06-21-2022 10:32-0400 Diastolic blood pressure 82 mm[Hg] Debbie Echeverria MD Work Phone: [facility] 06-21-2022 10:32-0400 Heart rate 74 /min Debbie Echeverria MD Work Phone: [facility] 06-21-2022 10:32-0400 Respiratory rate 18 /min Debbie Echeverria MD Work Phone: [facility] 06-21-2022 10:32-0400 SaO2% (BldA) [Mass fraction] 96 % Debbie Echeverria MD Work Phone: [facility] 06-21-2022 10:32-0400 Systolic blood pressure 139 mm[Hg] Debbie Echeverria MD Work Phone: [facility] 12-21-2021 13:24-0400 Body temperature 98.6 [degF] Debbie Echeverria MD Work Phone: [facility] 12-21-2021 13:24-0400 Body weight 102.15 kg Debbie Echeverria MD Work Phone: [facility] 12-21-2021 13:24-0400 Diastolic blood pressure 82 mm[Hg] Debbie Echeverria MD Work Phone: [facility] 12-21-2021 13:24-0400 Heart rate 79 /min Debbie Echeverria MD Work Phone: [facility] 12-21-2021 13:24-0400 Respiratory rate 20 /min Debbie Echeverria MD Work Phone: [facility] 12-21-2021 13:24-0400 SaO2% (BldA) [Mass fraction] 100 % Debbie Echeverria MD Work Phone: [facility] 12-21-2021 13:24-0400 Systolic blood pressure 145 mm[Hg] Debbie Echeverria MD Work Phone: [facility] Encounters Encounter Date Encounter Type Care Provider Facility Start: 02-19-2024 End: 02-19-2024 ambulatory [facility] Work Phone: Start: 02-19-2024 End: 02-19-2024 Patient encounter procedure [facility] Physician [facility] Cardiology Work Phone: Start: 12-14-2023 End: 12-14-2023 ambulatory Debbie Echeverria MD Work Phone: Hematology/Oncology Comment on above: Malignant melanoma o f torso excluding breast (HCC) (Primary Dx) Start: 12-14-2023 End: 12-14-2023 Patient encounter procedure Debbie Echeverria MD Work Phone: Hematology/Oncology Start: 10-02-2023 End: 10-02-2023 ambulatory MD Lissett Vega Work Phone: [facility] Work Phone: Start: 10-02-2023 End: 10-02-2023 Departed Referred MD Lissett Vega Work Phone: [facility] Start: 09-12-2023 End: 09-12-2023 ambulatory ABDIAZIZ BUNCH Facility:[facility] Start: 09-12-2023 End: 09-12-2023 Patient encounter procedure Abdiaziz Wang [employer] RECORDS CLERK.PHYSICIAN OBSTETRICIAN Work Phone: Neurosurgery Comment on above: Benign neoplasm of m eninges (HCC) (Primary Dx) Start: 09-12-2023 End: 09-12-2023 ambulatory GURPREET BECKWITH Facility:[facility] Start: 09-12-2023 End: 09-12-2023 Subsequent hospital visit by physician Mri [facility] (Lg Bore/1.5t) Radiology MRI Comment on above: Benign neoplasm of m eninges (HCC) [D32.9] Start: 09-08-2023 Telephone encounter Abdiaziz morgan [employer] RECORDS CLERK.PHYSICIAN OBSTETRICIAN Work Phone: [facility] Start: 09-05-2023 Non-patient / Non-visit MD Lisa Vega Work Phone: [facility] Physician [facility] Work Phone: Start: 09-05-2023 End: 09-05-2023 ambulatory HANS COLBY Not Available Start: 07-03-2023 End: 07-03-2023 ambulatory MD Lissett Vega Work Phone: [facility] Work Phone: Start: 07-03-2023 End: 07-03-2023 Patient encounter procedure MD Lissett Vega Work Phone: [facility] Physician [facility] Work Phone: Start: 06-13-2023 End: 06-13-2023 ambulatory Debbie Echeverria MD Work Phone: Hematology/Oncology Comment on above: Malignant melanoma o f torso excluding breast (HCC) (Primary Dx) Start: 06-13-2023 End: 06-13-2023 Patient encounter procedure Debbie Echeverria MD Work Phone: [facility] Start: 06-05-2023 End: 06-05-2023 ambulatory Jes Haywoodoroge Facility:[facility] Start: 06-05-2023 End: 06-05-2023 Patient encounter procedure MD Lissett Vega Work Phone: [facility] Physician [facility] Cardiology Work Phone: Start: 06-05-2023 End: 06-05-2023 ambulatory HANS MCDONALDO Not Available Start: 06-02-2023 Patient encounter status MD Anabel Vega Work Phone: [facility] Start: 05-12-2023 Telephone encounter Gurpreet malin DO, PhD Work Phone: [facility] Comment on above: Appointment (Abdiaziz sheth) Start: 03-23-2023 End: 03-23-2023 ambulatory Lissett Vega Other [facility] Other Start: 03-23-2023 Telephone encounter Lissett Vega [facility] Start: 03-16-2023 End: 03-16-2023 ambulatory Lissett Vega Other [facility] Other Start: 03-16-2023 Office outpatient vi sit 15 minutes Lissett Veag [facility] Start: 03-08-2023 End: 03-09-2023 ambulatory Debbie DE LOS SANTOS Facility:[id number] Start: 02-17-2023 End: 02-18-2023 ambulatory Debbie R NILFelix Facility:[facility] Start: 02-17-2023 End: 02-17-2023 Patient encounter procedure Debbie DE LOS SANTOS General Surgery [facility] Start: 02-07-2023 Telephone encounter Johann Henriquez RN [facility] Start: 02-06-2023 Telephone encounter Johann Henriquez RN [facility] Comment on above: Gamma Knife [...] Oncology Note Susi Prakash MD Work Phone: [facility] Comment on above: Procedure Treatment Planning Start: 01-24-2023 ambulatory Debbie DE LOS SANTOS Facility: [facility] Start: 01-23-2023 End: 01-23-2023 ambulatory Lissett Vega Other [facility] Other Start: 01-23-2023 Telephone encounter Lissett Vega [facility] Start: 12-22-2022 End: 12-22-2022 ambulatory DEBBIE ECHEVERRIA Facility:[facility] Start: 11-15-2022 Telephone encounter Betzy liao RN Work Phone: [facility] Comment on above: [employer] - O ther (Schedule gamma knife 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/) Start: 11-04-2022 End: 11-04-2022 ambulatory Gurpreet Beckwith DO, PhD Work Phone: [facility] Comment on above: Benign neoplasm of m eninges (HCC) (Primary Dx) Start: 11-04-2022 End: 11-04-2022 Telemedicine consultation with patient Gurpreet Beckwith DO, PhD Work Phone: [facility] Start: 10-31-2022 End: 10-31-2022 ambulatory Lissett Vega Other [facility] Other Start: 10-31-2022 Telephone encounter Lissett Vega [facility] Start: 10-19-2022 End: 10-19-2022 ambulatory Derian Bird MD Work Phone: Radiation Oncology Comment on above: Meningioma (HCC) (Pr imary Dx) Start: 10-19-2022 End: 10-19-2022 Telemedicine consultation with patient Derian Bird MD Work Phone: [facility] Start: 10-18-2022 End: 10-18-2022 ambulatory Trista Bonilla KHARI.PHYSICIAN OBSTETRICIAN Work Phone: Radiation Oncology Comment on above: Meningioma (HCC) (Pr imary Dx) Start: 10-18-2022 End: 10-18-2022 Telemedicine consultation with patient Trista Bonilla KHARI.PHYSICIAN OBSTETRICIAN Work Phone: [facility] Start: 10-17-2022 End: 10-17-2022 Subsequent hospital visit by physician Mri [facility] (Lg Bore/1.5t) Radiology MRI Comment on above: Benign neoplasm of m eninges (HCC) [D32.9] Start: 09-23-2022 End: 09-23-2022 ambulatory Lissett Vega Other [facility] Other Start: 09-23-2022 Telephone encounter Lissett Vega [facility] Start: 09-21-2022 End: 09-21-2022 ambulatory Lissett Vega Other [facility] Other Start: 09-21-2022 Encounter for other preprocedural examination Lissett Vega [facility] Start: 09-21-2022 Office outpatient vi sit 25 minutes Lissett Vega [facility] Start: 08-31-2022 Telephone encounter Derian osborn MD Work Phone: Radiation Oncology Comment on above: [employer] Specialist - O ther Start: 06-21-2022 End: 06-21-2022 ambulatory Debbie Echeverria MD Work Phone: Hematology/Oncology Comment on above: Malignant melanoma o f torso excluding breast (HCC) (Primary Dx) Start: 06-21-2022 End: 06-21-2022 Patient encounter procedure Debbie Echeverria MD Work Phone: [facility] Start: 03-16-2022 End: 03-16-[address] LISSETT VEGA Facility:[facility] Start: 02-28-2022 End: 02-28-2022 ambulatory Trista Bonilla APRN.PHYSICIAN OBSTETRICIAN Work Phone: Radiation Oncology Comment on above: Benign neoplasm of m eninges (HCC) (Primary Dx) Start: 02-28-2022 End: 02-28-2022 Telemedicine consultation with patient Trista Bonilla APRN.PHYSICIAN OBSTETRICIAN Work Phone: [facility] Start: 02-23-2022 End: 02-23-2022 Subsequent hospital visit by physician Mri [facility] (Lg Bore/1.5t) Radiology MRI Comment on above: Benign neoplasm of m eninges (HCC) [D32.9] Start: 12-21-2021 End: 12-21-2021 ambulatory Debbie Echeverria MD Work Phone: Hematology/Oncology Comment on above: Malignant melanoma o f torso excluding breast (HCC) (Primary Dx) Start: 12-21-2021 End: 12-21-2021 Patient encounter procedure Debbie Echeverria MD Work Phone: [facility] Start: 12-15-2021 End: 12-15-[address] LISSETT VEGA Facility:[facility] Start: 12-11-2021 Gynecological examination normal Lissett Vega Other [facility] Other Start: 12-01-2021 Telephone encounter Debbie Echeverria MD Work Phone: Hematology/Oncology Comment on above: [employer]ist - [employer] ther Start: 11-18-2021 End: 11-19-2021 [...] with patient Derian Bird MD Work Phone: [facility] Start: 08-23-2021 End: 08-23-2021 Subsequent hospital visit by physician Mri [facility] (Lg Bore/1.5t) Radiology MRI Comment on above: Benign neoplasm of m eninges (HCC) [D32.9] Start: 06-16-2021 End: 06-16-2021 Subsequent hospital visit by physician Mri [facility] (Lg Bore/1.5t) Radiology MRI Comment on above: Malignant 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] Start: 06-01-2021 End: 06-01-2021 Subsequent hospital visit by physician Mri [facility] (Lg Bore/1.5t) Radiology MRI Comment on above: [...] 10:30 AM EDT Visit (SP) Office Hematology/Oncology [address] [place] [address] Debbie Echeverria MD [address] [place] [address] FOLLOW UP Hematology/Oncology Comment on above: FOLLOW UP Start: 12-03-2023 Covid-19 Vaccine ( season) Covid-19 Vaccine () [facility] Start: 12-03-2023 Covid-19 Vaccine () Covid-19 Vaccine () [facility] Start: 12-03-2023 Influenza vaccination C [facility] Start: 09-12-2023 End: 09-12-2023 Patient encounter procedure 09/12/2023 11:45 AM EDT Office Visit Neurosurgery [address] [place] [address] Abdiaziz Bunch APRN.PHYSICIAN OBSTETRICIAN [address] [place] [address] gamma knife follow up Neurosurgery Comment on above: gamma knife follow u p Start: 09-12-2023 End: 09-12-2023 Patient encounter procedure 09/12/2023 10:40 AM EDT Appointment Radiology MRI [address] [place] [address] 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] Radiology MRI Comment on above: Benign neoplasm of m eninges (HCC) [D32.9] Start: 04-03-2023 Behavioral Health Screening Behavioral Health Screening [facility] Start: 04-03-2023 Depression Assessment Depression Ass essment [facility] Start: 12-21-2022 Adult depression screening assessment DEPRESSION SCREENING [facility] Start: 12-02-2022 Covid-19 Vaccine () Covid-19 Vaccine () [facility] Start: 12-02-2022 Covid-19 Vaccine () Covid-19 Vaccine () [facility] Start: 12-02-2022 Influenza vaccination C [facility] Start: 08-29-2022 End: 03-31-2023 Mri brain brain stem w/o w/contrast material MRI BRAIN WO/W IVCON Radiology Routine Benign neoplasm of meninges (HCC) Expected: 08/29/2022, Expires: 03/31/2023 [facility] Work Phone: Comment on above: Expected: 08/29/2022 , Expires: 03/31/2023 Start: 08-22-2022 Adult depression screening assessment DEPRESSION SCREENING [facility] Start: 04-03-2022 DEPRESSION ASSESSMENT DEPRESSION ASS [facility] Start: 01-24-2022 DIABETES SCREEN DIABETES SCREEN [facility] Start: 01-24-2022 Diabetes Screening Diabetes Screenin g [facility] Start: 12-02-2021 Influenza vaccination C [facility] Start: 04-03-2021 DEPRESSION ASSESSMENT DEPRESSION ASS [employer] [facility] Start: 07-12-2020 COLOGUARD (FIT-DNA) COLOGUARD (FIT-D NA) [facility] Start: 07-12-2020 Colonoscopy COLONOSCOPY [facility] Start: 07-12-2020 COLORECTAL CANCER SCREENING COLORECTAL CANCER SCREENING [facility] Start: 07-12-[address] COLONOGRAPHY [facility] Start: 07-12-2020 FECAL OCCULT BLOOD FECAL OCCULT BLOO D [facility] Start: 07-12-2020 Lipid 1996 panel - Serum or Plasma Lipid Screening [facility] Start: 07-12-2020 Lipid panel Lipid Screening [facility] Start: 07-12-2020 LIPID SCREEN LIPID SCREEN [facility] Start: 07-12-2020 Screening for malign ant neoplasm of colon [facility] Start: 07-12-2020 SIGMOIDOSCOPY SIGMOIDOSCOPY [facility] Start: 2015 Mammography [facility] Start: 2015 Screening for malign ant neoplasm of breast Mammogram Screening [facility] Start: 07-12-2005 HPV TESTING HPV TESTING [facility] Start: 07-12-2005 Screening for malign ant neoplasm of cervix HPV Testing [facility] Start: 07-12-1996 PAP TESTING PAP TESTING [facility] Start: 07-12-1996 Screening for malign ant neoplasm of cervix [facility] Start: 07-12-1994 Hepatitis B Vaccine (1 of 3 - 19+ 3-dose series) Hepatitis B Vaccine (1 of 3 - 19+ 3-dose series) [facility] Start: 07-12-1994 Urine microalbumin profile [facility] Start: 07-12-1993 Anxiety Screening Anxiety Screening [facility] Start: 07-12-1993 Depression Screening Depression Scre ening [facility] Start: 07-12-1993 HEPATITIS C SCREENING HEPATITIS C [facility] Start: 07-12-1993 Hepatitis C screening Hepatitis C [facility] Start: 07-12-1993 HIV SCREENING HIV SCREENING [facility] Start: 07-12-1993 HIV screening HIV Screening [facility] Start: 07-12-1981 PNEUMOCOCCAL (1 - PCV) PNEUMOCOCCAL (1 - PCV) [facility] Start: 07-12-1980 COVID-19 VACCINE (#1) COVID-19 VACCI NE (#1) [facility] Start: 01-12-1976 COVID-19 VACCINE (#1) COVID-19 VACCI NE (#1) [facility] Start: 1975 HEPATITIS B (1 of 3 - 3-dose series) HEPATITIS B (1 of 3 - 3-dose series) [facility] Start: 1975 Hepatitis B Vaccine (1 of 3 - 3-dose series) Hepatitis B Vaccine (1 of 3 - 3-dose series) [facility] End: 10-11-2024 MR Brain WO and W contrast IV MRI BRAIN WO/W IVCON Radiology Routine Benign neoplasm of meninges (HCC) 1 Occurrences starting 09/12/2023 until 10/11/2024 [facility] Work Phone: Comment on above: 1 Occurrences starti ng 09/12/2023 until 10/11/2024 End: 09-22-2022 Mri brain brain stem w/o w/contrast material MRI BRAIN WO/W IVCON Radiology Routine Benign neoplasm of meninges (HCC) 1 Occurrences starting 08/23/2021 until 09/22/2022 [facility] Work Phone: Comment on above: 1 Occurrences starti ng 08/23/2021 until 09/22/2022 [facility] ANESTHESIA O NLY [facility] Immunizations Immunization Date Immunization Notes Care Provider [place] 06-05-2020 SARS-CoV-2 (COVID-19 ) mRNA BNT-162b2 familia DE [facility] [place] 05-15-2020 SARS-CoV-2 (COVID-19 ) mRNA BNT-162b2 vax Debbie [facility]NAN[facility] [place] NEGATED: Highlighted row has not occurred!02-17-2023 influenza virus vaccine, unspecified formulation Debbie HERNANDZEFel[facility] [place] Payers Date Payer Category Payer Self-pay [id number] 2018 Unknown MMO MMO [employer] [id number] 2018-Present [phone] [address] [place] [address] PPO [id number] 2018 Unknown [id number] 1975 Unknown [id number] 1975 Unknown [id number] 1975 Unknown [id number] 1975 Unknown [id number] 1975 Unknown [id number] 1975 Unknown [id number] 1975 Unknown [id number] 1975 Unknown [id number] 1959 Self-pay [id number] 1959 Unknown [id number] Unknown [id number] Unknown [id number] Unknown [id number] Social History Date Type Detail Facility Start: 11-19-2018 End: 02-17-2023 Tobacco smoking status NHIS Ex-smoker [facility] End: 08-02-2018 History of tobacco use Current smoker [facility] End: 08-02-2018 History of tobacco use Cigarette Smoker [facility] Start: 11-19-2018 Tobacco use and exposure Smokeless tobacco non-user [facility] Start: 10-29-2020 End: 06-21-2021 Alcohol intake Current drinker of alcohol (finding) [facility] Start: 11-19-2018 History SDOH Alcohol Comment occasionally [facility] Start: 1975 Sex Assigned At Not on file C [facility] Start: 04-13-2021 End: 12-21-2021 Exposure to SARS-CoV-2 (event) Not sure [facility] Start: 03-10-2020 End: 06-21-2022 Sex Assigned At [facility] Start: 03-10-2020 End: 06-21-2022 History of Social function [facility] Adult Depression Screening Assessment 0 [facility] Start: 01-20-2020 Gender identity Identifies as female gender (finding) [facility] Start: 05-02-2021 End: 06-11-2021 Exposure to SARS-CoV-2 (event) Unable to assess [facility] Start: 1975 Sex Assigned At Female F [facility] Start: 02-19-2024 [facility] Start: 02-19-2024 Sex Female (finding) [facility] Functional Status Date Assessment Result Facility 02-17-2023 Functional Status N/A General [facility] Clinical Notes 05-13-2021 to 12-14-2023 Debbie Echeverria MD - 12/14/2023 11:14 AM Bella Ashley MA - 12/14/2023 10:47 AM Bella Ashley MA - 12/14/2023 10:47 AM Abdiaziz Morgan APRN.PHYSICIAN OBSTETRICIAN - 09/12/2023 11:18 AM EDT Note Date & Type Note Facility 12-14-2023 Note HNO ID: [id number] Author: DEBBIE ECHEVERRIA MD Service: ? Author Type: Physician Type: Progress Notes Filed: 12/19/2023 15:07 Note Text: [facility] GASTROENTEROLOGY ONCOLOGY ESTABLISHED PATIENT VISIT PATIENT [...] INTERVAL HISTORY: Since last visit, she visited gummed tape press operator in 10/2023, and was reassured, no [...] Lymph 1.00 - 4.00 k/uL 2.12 Abs Wilson <0.87 k/uL 0.72 Abs Eosin <0.46 k/uL [...] months - recommend continue follow up with gummed tape press operator Patient seen and discussed with Gastroenterology [...] in the vi (more content not included)... [facility] 12-14-2023 History of Presen t illness Narrative Images from the original note were not included. [facility] GASTROENTEROLOGY ONCOLOGY ESTABLISHED PATIENT VISIT PATIENT [...] INTERVAL HISTORY: Since last visit, she visited gummed tape press operator in 10/2023, and was reassured, no [...] Lymph 1.00 - 4.00 k/uL 2.12 Abs Wilson <0.87 k/uL 0.72 Abs Eosin <0.46 k/uL [...] months - recommend continue follow up with gummed tape press operator Patient seen and discussed with Gastroenterology [...] with more than 50% of the total vbtb-wv-moiq time of the visit in counseling / coordination of care. Debbie Echeverria MD documented in this encounter [facility] 12-14-2023 Nurse Note Additional intake questions: Has the patient had fever, nausea, vomiting, diarrhea, constipation, fatigue for > 1 week? No Does the patient have a decreased appetite? No Does patient want to see a Design Center Consultant? No (yes to any of above refer patient to schedulers for dietitian appointment) ) Does patient have any new or increased numbness or tingling of extremities? No Is patient interested in fertility information? NA Does patient need any prescription refills? No Does patient have an advanced directive in place? No, [facility] 12-14-2023 Nurse Note Additional intake questions: Has the patient had fever, nausea, vomiting, diarrhea, constipation, fatigue for > 1 week? No Does the patient have a decreased appetite? No Does patient want to see a Design Center Consultant? No (yes to any of above refer patient to schedulers for dietitian appointment) ) Does patient have any new or increased numbness or tingling of extremities? No Is patient interested in fertility information? NA Does patient need any prescription refills? No Does patient have an advanced directive in place? No, documented in this encounter [facility] 09-12-2023 Note HNO ID: [id number] Author: ABDIAZIZ BUNCH APRN.PHYSICIAN OBSTETRICIAN Service: ? Author Type: Nurse Practitioner Type: Progress Notes Filed: 09/12/2023 13:21 Note Text: [facility] NEURO-ONCOLOGY OUTPATIENT CLINIC NOTE [...] and with cont (more content not included)... [facility] 09-12-2023 History of Presen t illness Narrative Images from the original note were not included. [facility] NEURO-ONCOLOGY OUTPATIENT CLINIC NOTE [...] DATE OF EXAM: Sep 12 2023 11:35AM [facility] 0295 - MRI BRAIN WO/W IVCON [...] left frontal convexity without substantial mass effect. Administrative Assistant Data Entry: TORI Transcribe Date/Time: Sep 12 2023 11:55A Dictated by : IAN DUNNE MD This examination was interpreted and the report reviewed and electronically signed by: INA DUNNE MD on Sep 12 2023 11:58AM [...] - All questions were answered. Abdiaziz Bunch APRN.PHYSICIAN OBSTETRICIAN Certified Nurse Practitioner cc: Gurpreet Beckwith DO PHD - Epic documented in this encounter [facility] 09-12-2023 History of Presen t [...] PATIENT PRESENTS WITH AN IMPLANTABLE OR ATTACHED MEDIA SENIOR RECRUITER: No RADIOLOGY DEPARTMENT: MR; Exam(s) Completed: Head: Routine Brain PERIPHERAL IV DATA: Site assessment: Clean,Dry and Intact, Site disposition Discontinued SIGNED BY: JADA Gloria) September 12, 2023 11:12 AM documented in this encounter [facility] 09-12-2023 Note HNO ID: [id number] Author: CHERRIE MCBRIDE RT(R) Service: ? Author [...] PATIENT PRESENTS WITH AN IMPLANTABLE OR ATTACHED MEDIA SENIOR RECRUITER: No RADIOLOGY DEPARTMENT: MR; Exam(s) Completed: Head: Routine Brain PERIPHERAL IV DATA: Site assessment: Clean,Dry and Intact, Site disposition Discontinued SIGNED BY: JADA Gloria) September 12, 2023 11:12 AM [facility] 09-12-2023 Note HNO ID: [id number] Author: NIDIA MORELOS RN Service: Nursing Author [...] DATE: September 12, 2023 TIME: 10:40 AM [facility] 09-08-2023 Telephone encounter Note Patient called in requesting ativan for her MRI. Chart review indicates patient has been prescribed 1mg of ativan prior to past MRI's and has tolerated it well. Orders pended to provider for review. Johann Henriquez RN Precision Farming Specialist [facility] 09-08-2023 Miscellaneous Notes Patient called in requesting ativan for her MRI. Chart review indicates patient has been prescribed 1mg of ativan prior to past MRI's and has tolerated it well. Orders pended to provider for review. Johann Henriquez RN [employer] Specialist documented in this encounter [facility] 06-13-2023 Nurse Note Additional intake questions: Has [...] or Resource Center documented in this encounter [facility] 06-13-2023 History of Presen t illness Narrative Images from the original note were not included. [facility] GASTROENTEROLOGY ONCOLOGY ESTABLISHED PATIENT VISIT PATIENT [...] no new issues and last visit with gummed tape press operator was about 6 months ago. She [...] Lymph 1.00 - 4.00 k/uL 2.12 Abs Wilson <0.87 k/uL 0.72 Abs Eosin <0.46 k/uL [...] 6 months - recommend follow up with gummed tape press operator Patient seen and discussed with Gastroenterology [...] with more than 50% of the total ixkz-hy-uybm time of the visit in counseling / coordination of care. Debbie Echeverria MD documented in this encounter [facility] 06-13-2023 Note HNO ID: [id number] Author: DEBBIE ECHEVERRIA MD Service: ? Author Type: Fellow Type: Progress Notes Filed: 06/14/2023 17:20 Note Text: [facility] GASTROENTEROLOGY ONCOLOGY ESTABLISHED PATIENT VISIT PATIENT [...] no new issues and last visit with gummed tape press operator was about 6 months ago. She [...] Lymph 1.00 - 4.00 k/uL 2.12 Abs Wilson <0.87 k/uL 0.72 Abs Eosin <0.46 k/uL [...] 6 months - recommend follow up with gummed tape press operator Patient seen and discussed with Gastroenterology [...] with more than 50% of the total vblm-rv-dlbc time of the visit in counseling / coordination of care. (more content not included)... [facility] 05-12-2023 Miscellaneous Notes Mateusz Roldan (RN)-via email: This patient had GK in January and their follow up MRI and appointment was never scheduled. She needs an MRI at [facility] and follow up same day with Abdiaziz bunch. Schedule this for September please. Appointments scheduled. Mychart and letter sent. Marli Patino documented in this encounter [facility] 03-16-2023 Evaluation note Encounter Date Diagnosis Assessment Notes Mar, LLQ abdominal pain (ICD-10 - R10.32) Discussed differential - kidney stone, diverticulosis (recent normal colonoscopy), ovarian issue or constipation (no BM x 2 days) due to hematuria on UA - recommend CT without contrast to r/o stone. Mar, Microscopic hematuria (ICD-10 - R31.29) [facility] Other 12-14-2023 Evaluation note* Encounter Date Diagnosis [...] She would like to continue this treatment. [facility] Other 11-17-2023 NoteChief Complaint consultation for screening [...] Recorded SARS-CoV-2 (COVID-19) mRNA BNT-162b2 vax 05/15/2020 [facility] on [facility]:Result Comment: Electronically Signed By: MAGALI MCKINLEY, Debbie He\Date and Time Signed: 02/17/23 15:11 [id number] Miscellaneous Notes* Telephone Encounter - Johann Henriquez [...] concerns arise. documented in this encounterUniversity [facility]11-[facility]23 Miscellaneous Notes* Telephone Encounter - Johann Henriquez RN - 02/07/2023 1:13 PM EST 2nd attempt to reach out, patient unavailable. Will send Tepha message with contact information to call if she is experiencing any symptoms or has any concerns since gamma knife treatment. * Telephone Encounter - Johann Henriquez RN - 02/06/2023 1:17 PM EST Calling Ben for post-GKRS follow-up. Unable to reach at this time. Left voicemail. documented in this encounterUniversity Hospitals [facility]11-01-2023 NoteHNO ID: [id number] Author: Burak Prakash MD Service: Radiation Oncology Author Type: Physician Type: Progress Notes Filed: 02/03/2023 12:33 AM Note Text: BEN CRUZ [id number] 02/01/2023 [facility] Center / Department of [...] Electronically Signed cc: Dr. Gurpreet BeckwithNorthern Light [facility]23 NoteHNO ID: [id number] Author: Burak Prakash MD Service: Radiation Oncology Author Type: Physician Type: Progress Notes Filed: 02/01/2023 12:33 AM Note Text: BEN CRUZ [id number] 01/27/2023 [facility] Cindi Diez [facility] STEREOTACTIC RADIOSURGERY (SRS) DAILY PROCEDURE NOTE DATE [...] patient setup, I conferred with the medical doctor md to approve the final setup. I was [...] planned. Electronically Signed Burak Prakash M.D. :10 [facility]10-27-2023 NoteHNO ID: [id number] Author: Burak Prakash MD Service: Radiation Oncology Author Type: Physician Type: Progress Notes Filed: 02/02/2023 12:32 AM Note Text: BEN CRUZ [id number] 01/27/2023 [facility] Cindi Tavarest [facility] Department of Radiation Oncology [facility] RADIATION ONCOLOGY GAMMA KNIFE SIMULATION NOTE DATE [...] planning. Electronically Signed Burak Prakash M.D. :18 [facility]10-27-2023 NoteHNO ID: [id number] Author: Burak Prakash MD Service: Radiation Oncology Author Type: Physician Type: Progress Notes Filed: 02/01/2023 12:33 AM Note Text: BEN CRUZ [id number] 01/27/2023 [facility] Department of Radiation Oncology [facility] RADIATION ONCOLOGY GAMMA KNIFE TREATMENT PLANNING NOTE [...] DVH. Electronically Signed Burak Prakash M.D. / [facility] 31:29 [facility]10-27-2023 NoteHNO ID: [id number] Author: Gurpreet Beckwith DO, PhD Service: ? Author Type: Physician Type: Progress Notes Filed: 01/27/2023 1:49 PM Note Text: [facility] [address] [place] [address] [place] OPERATIVE REPORT NAME: Ben Cruz NO.: [id number] MASK SIMULATION DATE: 2023-01-27 RADIATION TREATMENT START [...] Fractions: 1 After the usual water quality technician procedures were performed, fractionated 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 was delivered with use of the Gamma Knife. The Gamma Knife checklist and time outs were performed during this procedure. Gurpreet Beckwith DO, PhDMary[facility] Hospital10-27-2023 History of Present illness Narrative* Gurpreet Beckwith DO, PhD - 01/27/2023 1:49 PM EDT [facility] [address] [place] [address] [place] OPERATIVE REPORT NAME: Ben Cruz [facility] NO.: [id number] MASK SIMULATION DATE: 2023-01-27 RADIATION TREATMENT START [...] Fractions: 1 After the usual water quality technician procedures were performed, fractionated 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 was delivered with use of the Gamma Knife. The Gamma Knife checklist and time outs were performed during this procedure. Gurpreet Beckwith DO, PhD documented in this encounterUniversity Hospitals [facility] Center10-27-2023 NoteHNO ID: [id number] Author: Gurpreet Beckwith DO, PhD Service: ? Author Type: Physician Type: Progress Notes Filed: 01/27/2023 11:22 AM Note Text: [facility] [address] [place] [address] [place] OPERATIVE REPORT NAME: Ben Cruz [facility] NO.: [id number] MASK SIMULATION DATE: 2023-01-27 RADIATION TREATMENT START [...] Fractions: 1 After the usual water quality technician procedures were performed, fractionated 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 was delivered with use of the Gamma Knife. The Gamma Knife checklist and time outs were performed during this procedure. Gurpreet Beckwith DO, PhDMarymount Hospital10-27-2023 History of Present illness Narrative* Gurpreet Beckwith DO, PhD - 01/27/2023 11:21 AM EDT [facility] [address] [place] [address] [place] OPERATIVE REPORT NAME: Ben Cruz [facility] NO.: [id number] MASK SIMULATION DATE: 2023-01-27 RADIATION TREATMENT START [...] Fractions: 1 After the usual water quality technician procedures were performed, fractionated 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 was delivered with use of the Gamma Knife. The Gamma Knife checklist and time outs were performed during this procedure. Gurpreet Beckwith DO, PhD documented in this encounterUniversity Hospitals [facility] Center10-27-2023 History of Present illness Narrative* [...] 8:06 AM documented in this encounterUniversity Hospitals Elyria [facility] Center10-27-2023 NoteHNO ID: [id number] Author: Zee Padilla Tech Service: Radiology Author Type: Washing Machine Loader Type: Progress Notes Filed: 01/27/2023 8:06 AM [...] BY: Tyshawn Lawler January 27, 2023 8:06 [facility]10-27-2023 NoteHNO ID: [id number] Author: Gurpreet Beckwith DO, PhD Service: ? [...] - 123 U/L 60 (more content not included)...[facility]10-27-2023 History of Present illness Narrative* Gurpreet [...] 123 U/L 60 Final Pathology: Specimen #: [id number] Submitting Physician: DEBBIE ECHEVERRIA MD FINAL DIAGNOSIS [...] FRONTAL LOBE, UNCHANGED GOING BACK TO 06/01/2021 Administrative Assistant Data Entry: [facility] Transcribe Date/Time: Jan 27 2023 8:08A Dictated [...] Bird- muna Echeverria- muna documented in this encounterUniversity Hospitals Ely[facility] Center10-27-2023 Instructions* Patient Instructions* Gayle Acevedo RN - 01/27/2023 7:45 AM EDT [facility] Gamma Knife Center Discharge Instructions [...] a physician or hospital other than the [facility] with any problem related to [...] may your physician, Dr. Virgil Beckwith at [phone] Monday through Monday 8:00 am to 5:00 pm, or call the Gamma Knife nurse Monday through Monday 8:00 am to 4:00 pm at [phone]. In the evening or on weekends, call [phone] or toll-free [phone] and ask the slitter cut off operator to page your neurosurgeon's resident systems protection technician. documented in this encounterUniversity Hospitals Elyria Medical Center10-27-2023 History of Present illness Narrative* [...] 7:59 AM documented in this encounterUniversity Hospitals Elyria Medical Center10-27-2023 NoteHNO ID: [id number] Author: Anton Terrell RN Service: Nursing Author [...] Cruz DATE: January 27, 2023 TIME: 7:46 [facility]10-27-2023 NoteHNO ID: [id number] Author: Mariela Burk RT(R) Service: Radiology Author [...] BY: RT Nestor(R) January 27, 2023 7:59 [facility]-2023 NoteHNO ID: [id number] Author: Gayle Acevedo RN Service: ? Author [...] Patient's Age: 47 Menstruation Status: [facility]sterectomy [facility] Results: N/A test not performed QC: Yes, testing is valid (or protocol followed for invalid testing). Reference range: Normal Value = Negative for hCG. POC performed by: Gayle Acevedo RN 0968 4 mg Decadron PO given prior to GKRS per order of Dr. Virgil Beckwith 0946 GKRS start time. 1016 GKRS end time. 1025 Discharge instructions given to patient; instructions reviewed by this RN; patient/family verbalized understanding; patient [facility] History of Present illness Narrative* Gayle [...] Patient's Age: 47 Menstruation Status: Hysterectomy 2019 [facility] Results: N/A test not performed QC: Yes, testing is valid (or protocol followed for invalid testing). Reference range: Normal Value = Negative for hCG. POC performed by: Gayle Acevedo RN 0912 4 mg Decadron PO given prior to GKRS per order of Dr. Virgil Beckwith 0946 GKRS start time. 1016 GKRS end time. 1025 Discharge instructions given to patient; instructions reviewed by this RN; patient/family verbalized understanding; patient discharged via/with Gayle Acevedo RN documented in this encounterUniversity Hospitals Elyria Medical Center10-27-2023 History of Present illness Narrative* Burak Prakash MD - 01/27/2023 12:00 AM EDT SHARONABEN [id number] 01/27/2023 [facility] Cindi Diez [facility] STEREOTACTIC RADIOSURGERY (SRS) DAILY PROCEDURE NOTE DATE [...] to patientsetup, I conferred with the medical doctor md to approve the final setup. I was [...] Prakash M.D. 31:10 PM documented in this encounterUniversity Hospitals Elyria Medical Center10-27-2023 History of Present illness Narrative* Burak Prakash MD - 01/27/2023 12:00 AM EDT BEN CRUZ [id number] 01/27/2023 [facility] Department of Radiation Oncology [facility] RADIATION ONCOLOGY GAMMA KNIFE TREATMENT PLANNING NOTE [...] DVH. Electronically Signed Burak Prakash M.D. / [facility] 31:29 PM documented in this encounterUniversity Hospitals Elyria Medical Center09-21-2023 NoteHNO ID: [id number] Author: Debbie Echeverria MD Service: ? Author Type: Physician Type: Progress Notes Filed: 12/23/2022 9:46 AM Note Text: December 22, 2022 DXN: Resected T4aN0 desmoplastic melanoma. The lesion was about 4.5mm located on her back with 2 negative SLNs (left axilla). There was no reported neurtropism and only one mitotic figure. Margins were negative. [place]. Baseline imaging today is negative CC: Melanoma [...] beckwith components of the Resident. Debbie Echeverria, [facility]08-15-2023 Miscellaneous Notes* Telephone Encounter - Betzy Cabral RN - 11/15/2022 1:57 PM EDT Calling Ben to follow up on Tepha message about scheduling gamma knife for 01/27/2023 No answer, left message stating that I'll go ahead and place the GK orders. Reminded to disregard ANY appointment times she sees in Tepha, any automated text reminders or automated phone calls for 01/27/23 She will receive a call from the GK nurse or radiation therapist the day before with her arrival time. If she has any questions, I left office phone # for call back or she can send a Tepha message. I will send out a GK folder with additional information related to Mask Based Gamma Knife Radiosurgery Betyz Cabral RN, BSN [employer] [facility] documented in this encounterUniversity Hospitals Elyria Medical Center08-04-2023 History of Present illness Narrative* Gurpreet Beckwith DO, PhD - 11/04/2022 1:00 PM EDT Images from the original note were not included. [facility] New Patient Virtual Consultation Referred by Dr. Derian Bird We had a virtual visit conducted via [email or web address] virtual visit. I received consent from the patient to perform the visit using this platform. I have communicated my name and active licensure. The patient's identity and physical location wereverified at the time of this visit. Either the patient or their legal distribution sales representative has been informed of the [...] 123 U/L 60 Final Pathology: Specimen #: [id number]* Submitting Physician: DEBBIE ECHEVERRIA MD FINAL DIAGNOSIS Skin, left upper midline back, shave biopsy - Desmoplastic melanoma, see synoptic report. RADHA/evelyn 11/09/2018 Imaging: MRI Report MRI BRAIN WO/W IVCON Exam End: 10/17/2022 11:20 AM (Final result) Narrative: * * *Final Report* * * DATE OF EXAM: Oct 17 2022 11:20AM [facility] 0295 - MRI BRAIN WO/W IVCON [...] with air-fluid level suggestive of acute/active sinusitis. Administrative Assistant Data Entry: TORI Transcribe Date/Time: Oct 17 2022 11:35A [...] which included preparing to see the patient, bmgm-bg-puwc patient care, completing clinical documentation, obtaining and/or reviewing separately obtained history, performing a medically appropriate examination, counseling and educating the pat ient/family/caregiver, ordering medications, tests, or procedures, communicating with other HCPs (not separately reported), independently interpreting results (not separately reported), communicatingresults to the patient/family/caregiver, and care coordination (not separately reported). Gurpreet Beckwith DO, PhD cc: Ben [place] [facility] Dr Echevreria- [facility] documented in this encounterUniversity Hospitals Elyria Medical Center07-31-2023 Evaluation note* Encounter Date Diagnosis Assessment Notes Treatment Notes Treatment Clinical Notes Oct, Screen for colon cancer (ICD-10 - Z12.11) [facility] Other 07-19-2023 History of Present illness Narrative* Derian Bird MD - 10/19/2022 4:30 PM EDT Radiation [facility] - [facility] This visit is a [...] Derian Bird MD cc: Debbie Echeverria [address] [address] documented in this encounterUniversity Hospitals Elyria Medical Center07-18-2023 History of Present illness Narrative* Trista Bonilla APRN.CNP - 10/18/2022 10:30 AM EDT Elements of this note, including HPI, ROS, Physical Exam, Assessment and Plan were copied and pasted from 02/28/22 encounter with me. Updates have been made where noted and reflect current exam and medical decision making from October 18, 2022. Trista Bonilla APRN.SHERITA. [facility] DISTANCE HEALTH VISIT This visit is a Virtual MyChart video visit encounter which required patient- provider interaction for the medical decision making as documented below. Persons Present: patient Ben Cruz has consented to this distance health encounter. Total Time Spent: more than 20 minutes snzs-iz-paxk with the patient and over half the [...] DATE OF EXAM: Oct 17 2022 11:20AM [facility] 0295 - MRI BRAIN WO/W IVCON [...] with air-fluid level suggestive of acute/active sinusitis. Administrative Assistant Data Entry: TORI Transcribe Date/Time: Oct 17 2022 11:35A [...] Cc: Dr. Derian Echeverria documented in this encounterUniversity Hospitals Elyria Medical Center07-17-2023 History of Present illness Narrative* [...] 2022 TIME: 10:40 AM * Barbara Gaxiola, plate molder - 10/17/2022 10:40 AM EDT Radiology Service [...] 10:53 AM documented in this encounterUniversity Hospitals Elyria Medical Center06-21-2023 Evaluation note* Encounter Date Diagnosis [...] the berberine and get back to patient. [facility] Other 05-31-2023 Miscellaneous Notes* Telephone Encounter - [...] the [facility] in [facility]. [facility] [phone] [place] [address] documented in this encounterUniversity Hospitals Elyria Medical Center03-21-2023 History of Present illness Narrative* Debbie Echeverria MD - 06/21/2022 11:08 AM EDT June 21, 2022 DXN: Resected T4aN0 desmoplastic melanoma. The lesion was about 4.5mm located on her back with 2 negative SLNs (left axilla). There was no reported neurtropism and only one mitotic figure. Margins were negative. Declined an adjuvant trial in [place]. Baseline imaging today is negative CC: Melanoma [...] with more than 50% of the total vgir-lf-mfmh time of the visit in counseling / coordination of care. Debbie Echeverria MD documented in this encounterUniversity Hospitals Elyria Medical Center03-21-2023 Nurse Note* Vanessa Giang LPN - 06/21/2022 10:29 AM EDT Additional intake questions: Has the patient had fever, nausea, vomiting, diarrhea, constipation, fatigue for > 1 week? Yes, fatigue and Provider Notified Does the patient have a decreased appetite? No Does patient want to see a Design Center Consultant? No (yes to any of above refer [...] Resource Center documented in this encounterUniversity Hospitals Elyria Medical Center11-28-2022 History of Present illness Narrative* Trista Bonilla APRN.PHYSICIAN OBSTETRICIAN - 02/28/2022 10:30 AM EST [facility] This visit is a Virtual MyChart video visit encounter which required patient- provider interaction for the medical decision making as documented below. Persons Present: patient Ben Cruz has consented to this distance health encounter. 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 She denies focal weakness, dizziness, gait instability, or seizures. Data Reviewed: MRI Report MRI BRAIN WO/W IVCON Exam End: 02/23/2022 11:31 AM (Final result) Narrative: * * *Final Report* * * DATE OF EXAM: Feb 23 2022 11:31AM [facility] 0295 - MRI BRAIN WO/W IVCON [...] unremarkable MRI brain with and without contrast. Administrative Assistant Data Entry: [facility] Transcribe Date/Time: Feb 23 2022 11:50A Dictated [...] will continue to get MRI at [facility] and present in VV follow up. Trista Bonilla APRN.SHERITA Cc: Dr. Derian Echeverria documented in this encounterUniversity Hospitals Elyria Medical Center11-23-2022 History of Present illness Narrative* [...] 2022 TIME: 10:33 AM * Barbara Gaxiola plate molder - 02/23/2022 10:40 AM EST Radiology Service [...] 10:57 AM documented in this encounterUniversity Hospitals Elyria Medical Center09-20-2022 History of Present illness Narrative* Debbie Echeverria MD - 12/21/2021 1:37 PM EDT December 21, 2021 DXN: Resected T4aN0 desmoplastic melanoma. The lesion was about 4.5mm located on her back with 2 negative SLNs (left axilla). There was no reported neurtropism and only one mitotic figure. Margins were negative. Declined an adjuvant trial in [place]. Baseline imaging today is negative CC: Melanoma [...] with more than 50% of the total nxrd-uy-uabg time of the visit in counseling / coordination of care. Debbie Echeverria MD documented in this encounterUniversity Hospitals Elyria Medical Center09-20-2022 Nurse Note* Tiny Mckoy LPN - 12/21/2021 1:20 PM EDT Additional intake questions: Has the patient had fever, nausea, vomiting, diarrhea, constipation, fatigue for > 1 week? Yes, fatigue Does the patient have a decreased appetite? No Does patient want to see a Design Center Consultant? No (yes to any of above refer [...] Resource Center documented in this encounterUniversity Hospitals Elyria Medical Center09-02-2022 Miscellaneous Notes* Telephone Encounter - Jaylene Jacobson RN - 12/03/2021 12:49 PM EDT Patient needs a follow up visit (no labs or scans) around 12/25/21. She accepted a visit on 12/21 at 1:30 pm. Jaylene Jacobson RN * Telephone Encounter - Mary Lindsay - 12/01/2021 4:45 PM EDT Ben Cruz is calling Debbie Echeverria MD today regarding [employer] - Other Patient called scheduling to schedule 6 mo follow up but was unable to get thru, so calling office for Dr. Echeverria to get it scheduled. Can she be called once appointment is made? Patient has been identified by name and birthdate. Requesting response back: [phone] (home) [phone] (cell) Mary Lindsay December 01, 2021 documented in this encounterUniversity Hospitals Elyria Medical Center05-23-2022 History of Present illness Narrative* Derian Bird [...] an updated MRI in 6 months in [place] followed by a virtual visit for further meningioma surveillance, with additional surveillance plan to be developed thereafter. Zhanna Le MD Radiation Oncology Resident [phone] STAFF ADDENDUM I saw and evaluated the [...] 6 mo with MRI of the brain. Derian Bird MD cc: Debbie Echeverria [id number] [address] [facility] [id number] documented in this encounterUniversity Hospitals Elyria Medical Center05-23-2022 History of Present illness Narrative* [...] 12:14 PM documented in this encounterUniversity Hospitals Elyria Medical Center03-16-2022 History of Present illness Narrative* [...] 10:35 AM documented in this encounterUniversity Hospitals Elyria Medical Center03-01-2022 History of Present illness Narrative* [...] 2021 TIME: 11:13 AM documented in this encounterUniversity Hospitals Elyria Medical Center02-10-2022 History of Present illness Narrative* Sierra Machuca [...] 13, 2021 8:53 AM documented in [facility] No data available for this section General Surgery [place] Evaluation note* Diagnosis 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 documented in this encounter [facility] note* Diagnosis 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 documented in this encounter [facility] note* Diagnosis Benign neoplasm of meninges (HCC)- Primary Benign neoplasm of cerebral meninges documented in this encounter [facility] note* Diagnosis 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) documented in this encounter [facility] noteNo [employer] Other Evaluation note* Diagnosis Meningioma (HCC)- Primary Benign neoplasm of cerebral meninges documented in this encounter [facility] note* Diagnosis Meningioma (HCC)- Primary Benign neoplasm of cerebral meninges documented in this encounter [facility] note* Diagnosis Benign neoplasm of meninges (HCC)- Primary Benign neoplasm of cerebral meninges documented in this encounter [facility] note* Diagnosis Benign neoplasm of meninges (HCC)- Primary Benign neoplasm of cerebral meninges documented in this encounter [facility] note* Diagnosis Benign neoplasm of meninges (HCC)- Primary Benign neoplasm of cerebral meninges documented in this encounter [facility] note* Diagnosis Benign neoplasm of meninges (HCC)- Primary Benign neoplasm of cerebral meninges documented in this encounter [facility] note* Diagnosis 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 documented [facility] this [facility] [place] [facility]* Diagnosis 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 documented in this encounter [facility] note* Diagnosis 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 documented in this encounter [facility] note* Diagnosis 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) Liver lesion Other specified disorders of liver documented in this encounter [facility] note* Diagnosis 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 documented in this encounter [facility] note* Diagnosis 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 documented in this encounter [facility] note* Diagnosis Benign neoplasm of meninges (HCC)- Primary Benign neoplasm of cerebral meninges documented in this encounter [facility] note* Diagnosis 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 documented in this encounter [facility] noteNo assessment information availableNationwide Children'[facility] Work Phone: Evaluation note* Diagnosis 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 documented in this encounter [facility] note* Diagnosis 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) Chest pain on breathing Painful respiration Malignant melanoma of skin (HCC) Melanoma of skin, site unspecified Shortness of breath documented in this encounter [facility] general Narrative - Reported* Type Description Date Medical History melanoma Surgical History laminectomy Surgical History c-sectionx 2 Surgical History hysterectomy Surgical History lump removed right wrist Surgical History melanoma removal [employer] Other History general Narrative - ReportedNortLancaster General Hospital [employer] Other History general Narrative - Reported* Type Description Date Medical History melanoma Surgical History laminectomy Surgical History c-sectionx 2 Surgical History hysterectomy Surgical History lump removed right wrist Surgical History melanoma removal Surgical History Colonoscopy 03/2023 [facility] Other Hospital Discharge instructions No data available for this section General Surgery [place] Progress note No data available for this section General Surgery [facility] Reason for Referral Specialty Diagnoses / Procedures Referred By Selene t Referred To Contact MR IMAGING Diagnoses Benign neoplasm of meninges (HCC) Procedures MRI BRAIN WO/W IVCON MRI BRAIN BRAIN STEM W/O W/[place] [address] [place] [address] Mr Imaging Referral ID Status Reason Start Date Expiration Date Visits Requested Visits Authorized [id number] Pending Review Auto-Generat ed Referral 08/23/2021 09/22/2022 1 1 Specialty Diagnoses / Procedures Referred By Selene lloyd Referred To Contact MR IMAGING Diagnoses Benign neoplasm of meninges (HCC) Procedures MRI BRAIN WO/W IVCON MRI BRAIN BRAIN STEM W/O W/CONTRAST MATERIAL Trista Bonilla APRN.PHYSICIAN OBSTETRICIAN [address] [place] [address] Mr Imaging Referral ID Status Reason Start Date Expiration Date Visits Requested Visits Authorized [id number] Pending Review Auto-Generat ed Referral 08/29/2022 03/31/2023 1 1 Reason *FU 11/15 screenin g colonoscopy Diagnosis 1 Screen for colon can cer (Z12.11) Referral Organization [facility] Referring Provider First Name Lissett Referring Provider Last Name Gary Referring Provider Specialty Family [facility] cine Referred Organization [facility] Referred Provider Tucker Ann Referred Address [address] [place], [place],[address] Referred Provider Specialty General Surg katelyn Referral Priority Routine General Notes Louise Livingston 10:47:05 AM >received today, attachments made, notes locked, referral faxed Clinical Notes F: [phone] Specialty Diagnoses / Procedures Referred By Selene lloyd Referred To Contact MR IMAGING Diagnoses Benign neoplasm of meninges (HCC) Procedures MRI BRAIN LOCALIZATION W IVCON UNLISTED MAGNETIC RESONANCE PROCED Gurpreet Beckwith DO, PhD [address] [place] [address] Mr Imaging [facility]95 Referral ID Status Reason Start Date Expiration Date V isits Requested Visits Authorized [id number] Closed Auto-Generate d Referral 12/06/2022 1 1 Specialty Diagnoses / Procedures Referred By Contac t Referred To Contact MR IMAGING Diagnoses Benign neoplasm of meninges (HCC) Procedures MRI BRAIN WO/W IVCON MRI BRAIN BRAIN STEM W/O W/[place] [address] [place] [id number] Mr Imaging [facility] Referral ID Status Reason Start Date Expiration Date V isits Requested Visits Authorized [id number] Closed Auto-Generate d Referral 06/21/2021 09/18/2021 1 1 Specialty Diagnoses / Procedures Referred By Contac t Referred To Contact MR IMAGING Diagnoses 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) Liver lesion Procedures MRI LIVER WO/W IVCON MRI ABDOMEN W/O & W/[place] [address] [place] [id number] Mr Imaging [facility] Referral ID Status Reason Start Date Expiration Date V isits Requested Visits Authorized [id number] Closed Auto-Generate d Referral 05/20/2021 07/11/2021 1 1 Specialty Diagnoses / Procedures Referred By Contac t Referred To Contact MR IMAGING Diagnoses Benign neoplasm of meninges (HCC) Procedures MRI BRAIN WO/W IVCON MRI BRAIN BRAIN STEM W/O W/CONTRAST MATERIAL Trista Bonilla APRN.PHYSICIAN OBSTETRICIAN [address] [place] [address] Mr Imaging [facility]95 Referral ID Status Reason Start Date Expiration Date V isits Requested Visits Authorized [id number] Closed Auto-Generate d Referral 08/29/2022 03/31/2023 1 1 Referral ID Status Reason Start Date Expiration Date V isits Requested Visits Authorized [id number] Closed Auto-Generate d Referral 08/23/2021 03/20/2022 1 1 Specialty Diagnoses / Procedures Referred By Contac t Referred To Contact MR IMAGING Diagnoses Benign neoplasm of meninges (HCC) Procedures MRI BRAIN WO/W IVCON MRI BRAIN BRAIN STEM W/O W/CONTRAST MATERIAL Abdiaziz Bunch APRN.PHYSICIAN OBSTETRICIAN [address] [place] [address] Mr Imaging [place] [address] Referral ID Status Reason Start Date Expiration Date Visits Requested Visits Authorized [id number] Pending Review Auto-Generat ed Referral 09/12/2023 10/11/2024 1 1 Specialty Diagnoses / Procedures Referred By Contac t Referred To Contact MR IMAGING Diagnoses Benign neoplasm of meninges (HCC) Procedures MRI BRAIN WO/W IVCON MRI BRAIN BRAIN STEM W/O W/CONTRAST MATERIAL Gurpreet Beckwith DO, PhD [address] [place] [id number] Mr Imaging [place] [address] Referral ID Status Reason Start Date Expiration Date V isits Requested Visits Authorized [id number] Closed Auto-Generate d Referral 11/25/2022 12/25/2023 1 1 Specialty Diagnoses / Procedures Referred By Contac t Referred To Contact CT IMAGING Diagnoses 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) Chest pain on breathing Malignant melanoma of skin (HCC) Shortness of breath Procedures CT CHEST W IVCON DIAGNOSTIC COMPUTED TOMOGRAPHY THORAX W/[place] [address] [id number] [facility] [place] [address] Referral ID Status Reason Start Date Expiration Date V isits Requested Visits Authorized [id number] Closed Auto-Generate d Referral 04/29/2021 06/13/2021 1 [...] any alcohol or drug abuse patient.[facility] Hospit[facility]lyria Medical CenterIn the event this information is protected by the Federal Confidentiality of Alcohol and Drug Abuse Patient Records regulations: The Federal rules restrict any use of the information to criminally investigate or prosecute any alcohol or drug abuse patient.[facility]lyria Medical CenterIn the event this information is protected by the Federal Confidentiality of Alcohol and Drug Abuse Patient Records regulations: The Federal rules restrict any use of the information to criminally investigate or prosecute any alcohol or drug abuse patient.[facility] CenterIn the event this information is protected by the Federal Confidentiality of Alcohol and Drug Abuse Patient Records regulations: The Federal rules restrict any use of the information to criminally investigate or prosecute any alcohol or drug abuse patient.[facility] CenterIn the event this information is protected by the Federal Confidentiality of Alcohol and Drug Abuse Patient Records regulations: The Federal rules restrict any use of the information to criminally investigate or prosecute any alcohol or drug abuse patient.[facility] CenterIn the event this information is protected by the Federal Confidentiality of Alcohol and Drug Abuse Patient Records regulations: The Federal rules restrict any use of the information to criminally investigate or prosecute any alcohol or drug abuse patient.[facility] CenterIn the event this information is protected by the Federal Confidentiality of Alcohol and Drug Abuse Patient Records regulations: The Federal rules restrict any use of the information to criminally investigate or prosecute any alcohol or drug abuse patient.[facility] CenterIn the event this information is protected by the Federal Confidentiality of Alcohol and Drug Abuse Patient Records regulations: The Federal rules restrict any use of the information to criminally investigate or prosecute any alcohol or drug abuse patient.[facility] CenterIn the event this information is protected by the Federal Confidentiality of Alcohol and Drug Abuse Patient Records regulations: The Federal rules restrict any use of the information to criminally investigate or prosecute any alcohol or drug abuse patient.[facility] CenterIn the event this information is protected by the Federal Confidentiality of Alcohol and Drug Abuse Patient Records regulations: The Federal rules restrict any use of the information to criminally investigate or prosecute any alcohol or drug abuse patient.[facility] CenterIn the event this information is protected by the Federal Confidentiality of Alcohol and Drug Abuse Patient Records regulations: The Federal rules restrict any use of the information to criminally investigate or prosecute any alcohol or drug abuse patient.[facility] CenterIn the event this information is protected by the Federal Confidentiality of Alcohol and Drug Abuse Patient Records regulations: The Federal rules restrict any use of the information to criminally investigate or prosecute any alcohol or drug abuse patient.[facility] CenterIn the event this information is protected by the Federal Confidentiality of Alcohol and Drug Abuse Patient Records regulations: The Federal rules restrict any use of the information to criminally investigate or prosecute any alcohol or drug abuse patient.[facility] CenterIn the event this information is protected by the Federal Confidentiality of Alcohol and Drug Abuse Patient Records regulations: The Federal rules restrict any use of the information to criminally investigate or prosecute any alcohol or drug abuse patient.[facility] CenterIn the event this information is protected by the Federal Confidentiality of Alcohol and Drug Abuse Patient Records regulations: The Federal rules restrict any use of the information to criminally investigate or prosecute any alcohol or drug abuse patient.[facility] CenterIn the event this information is protected by the Federal Confidentiality of Alcohol and Drug Abuse Patient Records regulations: The Federal rules restrict any use of the information to criminally investigate or prosecute any alcohol or drug abuse patient.[facility] CenterIn the event this information is protected by the Federal Confidentiality of Alcohol and Drug Abuse Patient Records regulations: The Federal rules restrict any use of the information to criminally investigate or prosecute any alcohol or drug abuse patient.[facility] CenterIn the event this information is protected by the Federal Confidentiality of Alcohol and Drug Abuse Patient Records regulations: The Federal rules restrict any use of the information to criminally investigate or prosecute any alcohol or drug abuse patient.[facility] CenterIn the event this information is protected by the Federal Confidentiality of Alcohol and Drug Abuse Patient Records regulations: The Federal rules restrict any use of the information to criminally investigate or prosecute any alcohol or drug abuse patient.[facility] CenterIn the event this information is protected by the Federal Confidentiality of Alcohol and Drug Abuse Patient Records regulations: The Federal rules restrict any use of the information to criminally investigate or prosecute any alcohol or drug abuse patient.[facility] CenterIn the event this information is protected by the Federal Confidentiality of Alcohol and Drug Abuse Patient Records regulations: The Federal rules restrict any use of the information to criminally investigate or prosecute any alcohol or drug abuse patient.[facility] CenterIn the event this information is protected by the Federal Confidentiality of Alcohol and Drug Abuse Patient Records regulations: The Federal rules restrict any use of the information to criminally investigate or prosecute any alcohol or drug abuse patient.[facility] CenterIn the event this information is protected by the Federal Confidentiality of Alcohol and Drug Abuse Patient Records regulations: The Federal rules restrict any use of the information to criminally investigate or prosecute any alcohol or drug abuse patient.[facility] CenterIn the event this information is protected by the Federal Confidentiality of Alcohol and Drug Abuse Patient Records regulations: The Federal rules restrict any use of the information to criminally investigate or prosecute any alcohol or drug abuse patient.[facility] CenterIn the event this information is protected by the Federal Confidentiality of Alcohol and Drug Abuse Patient Records regulations: The Federal rules restrict any use of the information to criminally investigate or prosecute any alcohol or drug abuse patient.[facility] CenterIn the event this information is protected by the Federal Confidentiality of Alcohol and Drug Abuse Patient Records regulations: The Federal rules restrict any use of the information to criminally investigate or prosecute any alcohol or drug abuse patient.[facility] CenterIn the event this information is protected by the Federal Confidentiality of Alcohol and Drug Abuse Patient Records regulations: The Federal rules restrict any use of the information to criminally investigate or prosecute any alcohol or drug abuse patient.[facility] the event this information is protected by the Federal Confidentiality of Alcohol and Drug Abuse Patient Records regulations: The Federal rules restrict any use of the information to criminally investigate or prosecute any alcohol or drug abuse patient.[facility] CenterIn the event this information is protected by the Federal Confidentiality of Alcohol and Drug Abuse Patient Records regulations: The Federal rules restrict any use of the information to criminally investigate or prosecute any alcohol or drug abuse patient.[facility] CenterIn the event this information is protected by the Federal Confidentiality of Alcohol and Drug Abuse Patient Records regulations: The Federal rules restrict any use of the information to criminally investigate or prosecute any alcohol or drug abuse patient.[facility] CenterIn the event this information is protected by the Federal Confidentiality of Alcohol and Drug Abuse Patient Records regulations: The Federal rules restrict any use of the information to criminally investigate or prosecute any alcohol or drug abuse patient.[facility] CenterIn the event this information is protected by the Federal Confidentiality of Alcohol and Drug Abuse Patient Records regulations: The Federal rules restrict any use of the information to criminally investigate or prosecute any alcohol or drug abuse patient.[facility] CenterIn the event this information is protected by the Federal Confidentiality of Alcohol and Drug Abuse Patient Records regulations: The Federal rules restrict any use of the information to criminally investigate or prosecute any alcohol or drug abuse patient.[facility] Reason for Visit (unrecogniz ed [...] CR[facility]IAL LES[facility] [address] [address] Referral ID Status Reason Start Date Expiration Date Visits Re quested Visits Authorized [id number] [address] Specialty Diagnoses / Procedures Referred By Contac t Referred To Contact ADMITTING Diagnoses Benign neoplasm of meninges (HCC) Procedures RADIATION DELIVERY STEREOTACTIC CRANIAL COBALT STEREOTACTIC RADIOSURGERY 1 COMPLEX CRANIAL LES RADIATION [place] STEREOTACTIC RADIOSURGERY (SRS) [place] CRANIAL LESION(S) 1 SESSION MULTI-SOURCE COBALT STEREOTACTIC RADIOSURGERY 1 COMPLEX CRANIAL LESION [facility] [address] [place] [address] Reason Comments Recheck Reason Comments [employer] - Other Reason Comments Established Patient Reason Comments Established Patient Reason Comments Recheck Reason Comments Consult GK consult for LF me ningioma Reason Comments [employer] - 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 Reason Comments Procedure GKRS Reason Comments Radiology MRI Specialty Diagnoses / Procedures Referred By [facility] Referred To Contact MR IMAGING Diagnoses 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) New daily persistent headache Other headache syndrome Procedures MRI BRAIN WO/W IVCON MRI BRAIN BRAIN STEM W/O W/CONTRAST MATERIAL Debbie Echeverria MD [address] [place] [address] Mr Imaging [facility]95 Referral ID Status Reason Start Date Expiration Date V isits Requested Visits Authorized [id number] Closed Auto-Generate d Referral 04/29/2021 06/13/2021 1 1 Specialty Diagnoses / Procedures Referred By [facility] Referred To Contact MR IMAGING Diagnoses Benign neoplasm of meninges (HCC) Procedures MRI BRAIN WO/W IVCON MRI BRAIN BRAIN STEM W/O W/CONTRAST MATERIAL Derian Bird MD [address] [place], [place] [id number] Mr [facility]95 Referral ID Status Reason Start Date Expiration Date V isits Requested Visits Authorized [id number] Closed Auto-Generate d Referral 06/21/2021 09/18/2021 1 1 Specialty Diagnoses / Procedures Referred By [facility] Referred To Contact MR IMAGING Diagnoses 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) Liver lesion Procedures MRI LIVER WO/W IVCON MRI ABDOMEN W/O & W/CONTRAST MATERIAL Debbie Echeverria MD [address] [place], [place] [id number] Mr Imaging [facility] Referral ID Status Reason Start Date Expiration Date V isits Requested Visits Authorized [id number] Closed Auto-Generate d Referral 05/20/2021 07/11/2021 1 1 Specialty Diagnoses / Procedures Referred By Contac t Referred To Contact MR IMAGING Diagnoses Benign neoplasm of meninges (HCC) Procedures MRI BRAIN WO/W IVCON MRI BRAIN BRAIN STEM W/O W/CONTRAST MATERIAL Trista Bonilla APRN.PHYSICIAN OBSTETRICIAN [address] [place] [address] Mr Imaging [facility]95 Referral ID Status Reason Start Date Expiration Date V isits Requested Visits Authorized [id number] Closed Auto-Generate d Referral 08/29/2022 03/31/2023 1 1 Referral ID Status Reason Start Date Expiration Date V isits Requested Visits Authorized [id number] Closed Auto-Generate d Referral 08/23/2021 03/20/2022 1 [...] W/CONTRAST MATERIAL Gurpreet Beckwith DO, PhD [address] [facility] [address] [place] [address] Mr Imaging [place] [address] Referral ID Status Reason Start Date Expiration Date V isits Requested Visits Authorized [id number] Closed Auto-Generate d Referral 11/25/2022 12/25/2023 [address] Specialty Diagnoses / Procedures Referred By Contac t Referred To Contact CT IMAGING Diagnoses 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) Chest pain on breathing Malignant melanoma of skin (HCC) Shortness of breath Procedures CT CHEST W IVCON DIAGNOSTIC COMPUTED TOMOGRAPHY THORAX W/[place] [address] [place] [address] Ct Imaging [facility]95 Referral ID Status Reason Start Date Expiration Date V isits Requested Visits Authorized [id number] Closed Auto-Generate d Referral 04/29/2021 06/13/2021 1 1 INFORMATION SOURCE (unrecogn ized section and content) DATE CREATED AUTHOR 06/10/2022 [facility] DATE CREATED AUTHOR AUTHOR'S ORGANIZ ATION 02/04/2023 [facility] DATE CREATED AUTHOR AUTHOR'S ORGANIZ ATION 03/30/2023 Ritesh Pickett [facility] DATE CREATED AUTHOR AUTHOR'S ORGANIZ ATION 09/06/2023 [facility] EPIC DATE CREATED AUTHOR AUTHOR'S ORGANIZ ATION 10/05/2023 [facility] DATE CREATED AUTHOR AUTHOR'S ORGANIZ ATION 12/21/2023 [facility] Care Teams (unrecognized sec tion and content) Milk Processing Worker Relationship Specialty Start Date End Date Lissett Vega MD [address] [facility] [place] [address] PCP - General Family Medicine 01/17/23 Milk Processing Worker Relationship Specialty Start Date End Date Lissett Vega MD [address] [facility] [place] [address] PCP - General Family Medicine 01/17/23 Milk Processing Worker Relationship Specialty Start Date End Date Lissett Vega MD [address] [facility] [place] [address] PCP - General Family Medicine 01/17/23 Milk Processing Worker Relationship Specialty Start Date End Date Lissett Vega MD [address] [facility] [place] [address] PCP - General Family Medicine 01/17/23 Milk Processing Worker Relationship Specialty Start Date End Date Lissett Vega MD [address] [facility] [place] [address] PCP - General Family Medicine 01/17/23 Milk Processing Worker Relationship Specialty Start Date End Date Lissett Vega MD [address] [facility] [place] [address] PCP - General Family Medicine 01/17/23 Milk Processing Worker Relationship Specialty Start Date End Date Lissett Vega MD [address] [place] [phone] PCP - General Family Medicine 01/17/23 Milk Processing Worker Relationship Specialty Start Date End Date Lissett Vega MD [address] [place] [address] PCP - General Family Medicine [...] July 03, 2023 End: July 03, 2023 Milk Processing Worker Relationship Specialty Start Date End Date Lissett Vega MD [address] [place] [phone] PCP - General Family Medicine 01/17/23 Milk Processing Worker Relationship Specialty Start Date End Date Lissett Vega MD [address] [place] [phone] PCP - General Family Medicine 01/17/23 Milk Processing Worker Relationship Specialty Start Date End Date Lissett Vega MD [address] [place] [phone] PCP - General Family Medicine 01/17/23 Team Status: Active Member Role Status Dates Jes Vieira MD [employer] Man Active Lissett Vega MD Primary Care Provider [...] BE BASED ON THE PRIMARY CLINICAL RECORDS. [employer] provides no warranty or guarantee of the accuracy or completeness of information in this document.
== END 2024-06-10 18:46 | disposition home or self-care (01) ==
LOC: US 18:46
PROVIDERS: PCP Family Medicine; Visit Provider Family Medicine
DX: M79.604 Pain in right leg (principal)
CPT/HCPCS: 93971

== ENCOUNTER 2024-09-09 12:25 | Outpatient (REF) | payer OTHER, SELFPAY ==
--- OUTSIDE RECORDS SUMMARY | 2023-10-23 06:30 | XMS_ITS ---
Author Organization The [facility] in [place] Address [address] [place] [address] Care Team Providers Care Sap Portal Consultant Name Role Phone Zofia Ocasio Primary Care Provider Andrea Yi [phone] REASON FOR VISIT 2 week f/u patient, suture removal, moved from 10/23 due to patient being out of town, Encounters Encounter Location Date Provider Diagnosis [facility] (PODIATRY) [address] [place] [address] [place] [address] 10/23/2023 Andrea Morillo Pain due to other internal prosthetic devices, implants and grafts, initial encounter T85.848A Assessments Encounter Date Diagnosis (ICD Code) Assessment Notes Treatment Notes Treatment Clinical Notes Section Notes 10/23/2023 Pain due to other internal prosthetic devices, implants and grafts, initial encounter (ICD-10 - T85.848A) Plan Of Treatment No Information Progress Notes * Karo CRUZCherryOB:1975 (48 yo F)Acc No.[id number]:10/23/2023 Nurse Visit Patient: Conchis ZHOU Provider: Carlos Morillo DPM, MS :1975 A ge:48 Y S ex:Female Date:10/23/2023 [address] [facility] Pcp:Zofia Ocasio Check In:10:22 AM ESTCheck O ut:10:38 AM EST Subjective: * Chief Complaints: * 1 . 2 week f/u patient, suture removal, moved from 10/23 due to patient being out of town,. * HPI: G eneral: Pt had HWR left heel on 10/02/23. Pt also states they had to surgically remove a retained suture to lateral ankle during that case as well. All sutures removed without incident from both lateral ankle and posterior heel, no area of concern. Steri strips were placed on lateral ankle and pt given some to take with her as she's leaving for vacation tomorrow. She will schedule an appointment to see Dr. Morillo in 3 weeks, prior to her RTW date. 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 Modified On:04/20/2023U Status:confirmed M76.72 Peroneal tendinitis, left leg Modified On:05/11/2023U Status:confirmed M25.372 Other instability, l eft ankle Modified On:06/16/2023U Status:confirmed M21.172 Varus deformity, not elsewhere classified, left ankle Modified On:05/31/2023U Status:confirmed M21.072 Valgus deformity, no t elsewhere classified, left ankle Modified On:04/05/2023U Status:confirmed M21.862 Other specified acqu ired deformities of left lower leg Modified On:04/17/2023U Status:confirmed M21.6X2 Other acquired defor mities of left foot Modified On:03/17/2023U Status:confirmed M25.572 Ankle pain, left Modified On:03/17/2023U Status:confirmed M79.672 Foot pain, left Modified On:06/16/2023U Status:confirmed M20.42 Acquired hammer toe deformity of lesser toe of left foot Modified On:04/05/2023U Status:confirmed M21.6X9 Other acquired defor mities of unspecified foot Modified On:04/06/2023U Status:confirmed G57.92 Unspecified mononeur opathy of left lower limb Modified On:06/16/2023U Status:confirmed * Medical History: Objective: * Vitals: Assessment: * Assessment: 1. P ain due to other internal prosthetic devices, implants and grafts, initial encounter - T85.848A (Primary) Plan: * Treatment: * Procedure Codes: 9 9024 POST OP VISIT * * Sign off status: Completed Visit Status: C HK (Check Out) true * Provider: Carlos Morillo DPM, MS Date: 0 10/23/2023 Generated for Kelly stafford/Marisabel/Mercedes on: 0 09/09/2024 12:29 PM EDT History and Physical Notes * HPI (History of Present Illness) Category Sub-Category Detail Notes Category Not es General Pt had HWR left heel on 10/02/23. Pt also states they had to surgically remove a retained suture to lateral ankle during that case as well. All sutures removed without incident from both lateral ankle and posterior heel, no area of concern. Steri strips were placed on lateral ankle and pt given some to take with her as she's leaving for vacation tomorrow. She will schedule an appointment to see Dr. Morillo in 3 weeks, prior to her RTW date.
--- OUTSIDE RECORDS SUMMARY | 2023-11-08 06:15 | XMS_ITS ---
Author Organization [facility] in [place] Address [address] [place] [address] Care Team Providers Care Transmitter Supervisor Name Role Phone Zofia Ocasio Primary Care Provider Andrea Yi [phone] Allergies No Known Allergies REASON FOR VISIT POV F/U Medications Medication SIG (Take, Route, Frequency, Duration) Notes Start Date End Date Status Ibuprofen 800 MG 1 tablet with food or milk as needed Orally every 8 hrs 04/20/2023 Active Leqvio 284 MG/1.5ML as directed Subcutaneous Active Docusate Sodium 100 MG Oral for 7 Days Active Multivitamin Women - as directed Orally Active Pregabalin 50 MG 1 capsule Orally Twice a day for 30 days Good RX for copay assistance 06/16/2023 Active Cefadroxil 500 MG Oral for 7 Days Active [facility] Aspirin Low Dose 81 MG Oral for 30 Days Active Alendronate Sodium 70 MG Oral for 28 Days Active Berberine Chloride 500 MG as directed Orally Active Vitamin D3 125 MCG (5000 UT) Oral for 90 Days Active Social History Tobacco Use: Social History Observation Description Date Details (start date - stop date) Never Smoker NA - NA Tobacco Use/Smoking Question Answer Notes Patient is a nonsmoker Vital Signs Weight 205 lbs 11/08/2023 Height 65 in 11/08/2023 Temperature 97.3 degrees Fahrenheit 11/08/19 24 Heart Rate 76 /min 11/08/2023 Respiratory Rate 16 /min 11/08/2023 BMI 34.11 kg/m2 11/08/2023 Encounters Encounter Location Date Provider Diagnosis [facility] (PODIATRY) [address] [place], [place] [address] [place] [address] 11/08/2023 Andrea Morillo Pain due to other internal prosthetic devices, implants and grafts, initial encounter T85.848A Assessments Encounter Date Diagnosis (ICD Code) Assessment Notes Treatment Notes Treatment Clinical Notes Section Notes 11/08/2023 Pain due to other internal prosthetic devices, implants and grafts, initial encounter (ICD-10 - T85.848A) Patient is doing very well following hardware removal. I have no restrictions for her. She is very happy and she will follow-up as needed Plan Of Treatment Treatment Notes Assessment Notes Pain due to other internal p rosthetic devices, implants and grafts, initial encounter Patient is doing very well following hardware removal. I have no restrictions for her. She is very happy and she will follow-up as needed Progress Notes * Karo CRUZeDOB:1975 (48 yo F)Acc No.[id number]:11/08/2023 Progress Note Patient: Conchis ZHOU Provider: Carlos Morillo DPM MS :1975 A ge:48 Y S ex:Female Date:11/08/2023 Address:[facility] [place], [id number] Pcp:Zofia Ocasio Check In:10:13 AM ESTCheck O ut:11:00 AM EST Subjective: * Chief Complaints: * P OV F/U * HPI: G eneral: P/O left heel removal hardware DOS 10/02/23. States left heel is still sore, tender pressure with stretching. States left ankle is alot better. Denies pain in ankle. wearing sandals today. * ROS: G eneral/Constitutional: Chills d enies. F ever d enies. W eight gain?denies. W eight loss d enies. S kin: Skin Ulcers d enies. S kin lesion(s) d enies. ? C ardiovascular: Difficulty breathing on exertion d enies. L eg cramps?denies. E ramses d enies. C hest pain d enies. R espiratory: Difficulty breathing d enies. D yspnea d enies.?Cough d enies. G astrointestinal: Diarrhea d enies. N ausea d enies. V omiting?denies. M usculoskeletal: Bone/Joint Symptoms d enies. C senior care Pain d enies.?Leg cramps d enies. N eurologic: Numbness d enies. T ingling d enies . G ait abnormality d enies. ? H ematology: Anemia D enies. E asy bruising d enies. ? A ll Other Systems: Review of Systems (ROS) S ee HPI for details,All others negative except those mentioned in HPI. * Active Problem List M21.622 Bunionette of [...] limb Modified On:06/16/2023U Status:confirmed * Medical History: * Surgical History: l aminectomy section x2 hysterectomy right wrist lump removed melanoma removal left lateral displacement calcaneal osteotomy, lateral ankle stabilization with modified Brostrom-Peterson, peroneal tendon repair, EPF, tailor's bunionectomy, correction of 5th hammertoe with PIPJ arthroplasty, stress exam under fluoro 03.30.2023Removal of deep implanted hardware left calcaneus, excision of hypertrophic scar and delayed closure of wound left lateral ankle 10/02/2023 * Hospitalization/Major Diagno stic Procedure: s ee above * Family History: N o Family History documented.. * Social History: T obacco Use: T obacco Use/Smoking P atient is a n onsmoker * Medications: T akingAlendronate Sodium 70 MG Tablet Oral Berberine Chloride 500 MG Capsule as directed Orally Cefadroxil 500 MG Capsule Oral [facility]S Aspirin Low Dose(Aspirin) 81 MG Tablet Delayed Release Oral Docusate Sodium 100 MG Capsule Oral Ibuprofen 800 MG Tablet 1 tablet with food or milk as needed Orally every 8 hrs Leqvio(Inclisiran Sodium) 284 MG/1.5ML Solution Prefilled Syringe as directed Subcutaneous Multivitamin Women(Multiple Vitamins-Minerals) - Tablet as directed Orally Pregabalin 50 MG Capsule 1 capsule Orally Twice a day , Notes to Pharmacist: Good RX for copay assistance, Notes: called into [facility] 07.19.2023 0832Vitamin D3 125 MCG (5000 UT) Capsule Oral Medication List reviewed and reconciled with the patientTaking Alendronate Sodium 70 MG Tablet Oral Taking Berberine Chloride 500 MG Capsule as directed Orally Taking Cefadroxil 500 MG Capsule Oral Taking [facility]S Aspirin Low Dose(Aspirin) 81 MG Tablet Delayed Release Oral Taking Docusate Sodium 100 MG Capsule Oral Taking Ibuprofen 800 MG Tablet 1 tablet with food or milk as needed Orally every 8 hrs Taking Leqvio(Inclisiran Sodium) 284 MG/1.5ML Solution Prefilled Syringe as directed Subcutaneous Taking Multivitamin Women(Multiple Vitamins-Minerals) - Tablet as directed Orally Taking Pregabalin 50 MG Capsule 1 capsule Orally Twice a day , Notes to Pharmacist: Good RX for copay assistance, Notes: called into [facility] [employer] [facility] [employer] 07.19.2023 0832Taking Vitamin D3 125 MCG (5000 UT) Capsule Oral Medication List reviewed and reconciled with the patient * Allergies: N .K.D.A.no[Allergies Verified] Objective: * Vitals: W t:205lbs, Ht: 65 in, Temp:97.3F, HR:76/min, RR:16/min, BMI:34.11Index, Pain scale:01-10, Ht-cm: 165.1 cm, Wt-k.99 kg. * Examination: P odiatry Examination: SKIN: s kin intact, n o sign of infection. MUSCULOSKELETAL: N o pain to palpation, N o gross deformity, S trength equal & symmetric. NEUROLOGICAL: l ight touch sensation intact, n egative tinel's sign. VASCULAR: P edal pulses palpable, C apillary refill is brisk to toe, D igital hair intact. Assessment: * Assessment: 1. P ain due to other internal prosthetic devices, implants and grafts, initial encounter - T85.142U (Primary) Plan: * Treatment: * Procedure Codes: * * Sign off status: Completed Visit Status: C HK (Check Out) true * Provider: Carlos Morillo DPM, MS Date: 0 11/08/2023 Generated for Kelly stafford/Mraisabel/Margaritasmitting on: 0 09/09/2024 12:29 PM EDT History and Physical Notes * HPI (History of Present Illness) Category Sub-Category Detail Notes Category Not es General P/O left heel r emoval hardware DOS 10/02/23. States left heel is still sore, tender pressure with stretching. States left ankle is alot better. Denies pain in ankle. wearing sandals today. Examination Category Sub-Category Detail Notes Category Not es Podiatry Examination SKIN: skin intact, no sign of infection MUSCULOSKELETAL: No pain to palpation , No gross deformity, Strength equal & symmetric NEUROLOGICAL: light touch sensatio n intact, negative tinel's sign VASCULAR: Pedal pulses palpabl e, Capillary refill is brisk to toe, Digital hair intact
--- OUTSIDE RECORDS SUMMARY | 2024-04-30 05:30 | XMS_ITS ---
Author Organization [facility] [place] Address [address] [place] [address] Care Team Providers Care Soaker Name Role Phone Zofia Ocasio Primary Care Provider Andrea Yi Unavailable [phone] REASON FOR VISIT left foot fluid pocket [...] Notes Patient is a nonsmoker Vital Signs Height 65 in 04/30/2024 Temperature 96.8 degrees Fahrenheit 04/30/19 25 Heart Rate 90 /min 04/30/2024 Oximetry 99 % 04/30/2024 Encounters Encounter Location Date Provider Diagnosis [facility] (PODIATRY) [address] [place] [address] [place] [address] 04/30/2024 Andrea Morillo Varus deformity, not elsewhere [...] Notes * Karo CRUZeDOB:1975 (48 yo F)Acc No.[id number]:04/30/2024 Follow Up Patient: Conchis ZHOU Provider: Carlos Morillo DPM, MS :1975 A ge:48 Y S ex:Female Date:04/30/2024 Address[facility] [address] [address] [facility] Pcp:Zofia Ocasio Check In:09:25 AM Alvaro O [...] RX for copay assistance, Notes: called into [facility] 07.19.2023 0832Vitamin D3 125 MCG (5000 UT) [...] RX for copay assistance, Notes: called into [facility] 07.19.2023 0832Taking Vitamin D3 125 MCG (5000 [...] Morillo DPM, MS Date: 04/30/2024 Generated for [employer] stafford/Marisabel/Donyitting on: 0 09/09/2024 11:19 AM EDT History and Physical Notes * [...]
--- OUTSIDE RECORDS SUMMARY | 2024-09-09 10:00 | XMS_ITS | Encounter Summary ---
Author Organization [facility] Address [address] [facility] [place] [address] Care Team Providers Care Loader Helper Sorting Yard Name Role Phone Zofia Ocasio MD Primary Care Provider [phone] Reason for Visit * Reason Comments Gynecologic Exam Encounter Details Date Type Department Care Team (Late Contact Info) Description 09/09/2024 10:00 AM EDT Office Visit [facility] [address] [place] [address] Hans Colby, DO [address] [place] [address] Well woman exam with routine gynecological exam; Breast cancer screening by mammogram Social History Tobacco Use Types Packs/Day Years Used Date Smoking Tobacco: Former Cigarettes Passive Smoke Exposure: Never Smokeless Tobacco: Former Comments:Last smoked 10 year s ago Alcohol Use Standard Drinks/Week Comments Yes 0 (1 standard drink = 0.6 oz pur e alcohol) monthly or less Comments No Sex and Gender Information Value Date Recorded Sex Assigned at Not on file Legal Sex Female 7:33 PM EDT Gender Identity Not on file Sexual Orientation Not on file documented as of this encounter Last Filed Vital Signs Vital Sign Reading Time Taken Comments Blood Pressure 122/74 09/09/2024 10:11 AM EDT Pulse - - Temperature - - Respiratory Rate - - Oxygen Saturation - - Inhaled Oxygen Concentration - - Weight 103 kg (226 lb) 09/09/2024 10:11 AM EDT Height - - Body Mass Index 37.61 12/29/2022 4:07 PM EDT documented in this encounter Progress Notes * Kaylene Duran MA - 09/09/2024 10:00 AM EDT Reason for Appointment: Patient ID: Conchis Crzu is a 49 y.o. female who presents for Gynecologic Exam Patient presents today for Annual Exam. MEDICATIONS Current Outpatient Medications Medication Instructions Repatha SureClick 140 mg, Subcutaneous, Every 14 days ALLERGIES No Known Allergies PROBLEMS Active Ambulatory Problems Diagnosis Date Noted Abnormal mammogram 08/22/2022 Disorder of breast 08/22/2022 Elevated fasting lipid profile (CMS/HCC) 08/22/2022 Familial hypercholesterolemia (CMS/HCC) 08/22/2022 Ganglion forearm, right 08/22/2022 Gastroesophageal reflux disease 08/22/2022 Resolved Ambulatory Problems Diagnosis Date Noted No Resolved Ambulatory Problems Past Medical History: Diagnosis Date Acromioclavicular pain Borderline high cholesterol (CMS/HCC) Breast asymmetry Breast cancer screening by mammogram Cervical paraspinal muscle spasm DENIES HX OF BLOOD BORNE DISEASES Elevated lipids (CMS/HCC) Encounter for gynecological examination (general) (routine) without abnormal findings GERD (gastroesophageal reflux disease) H/O abdominal hysterectomy High cholesterol (CMS/HCC) History of bilateral salpingectomy Hordeolum of upper eyelid Left shoulder strain Left shoulder strain, initial encounter Lumbar disc herniation Melanoma (CMS/HCC) 09/2018 Plantar fasciitis HISTORY PAST MEDICAL HISTORY SOCIAL HISTORY Past Medical History: Diagnosis Date Abnormal mammogram Acromioclavicular pain Borderline high cholesterol (CMS/HCC) Breast asymmetry Breast cancer screening by mammogram Cervical paraspinal muscle spasm DENIES HX OF BLOOD BORNE DISEASES Elevated lipids (CMS/HCC) Encounter for gynecological examination (general) (routine) without abnormal findings Familial hypercholesterolemia (CMS/HCC) GERD (gastroesophageal reflux disease) H/O abdominal hysterectomy High cholesterol (CMS/HCC) History of bilateral salpingectomy Hordeolum of upper eyelid Left shoulder strain Left shoulder strain, initial encounter Lumbar disc herniation Melanoma (CMS/HCC) 09/2018 Dr. Garcia Plantar fasciitis x4 Social History Tobacco Use Smoking status: Former Types: Cigarettes Passive exposure: Never Smokeless tobacco: Former Tobacco comments: Last smoked 10 years ago Vaping Use Vaping status: Unknown Substance Use Topics Alcohol use: Yes Comment: monthly or less Drug use: Never FAMILY HISTORY Family History Problem Relation Name Age of Onset Hypertension Father Kidney cancer Father Diabetes Father Arthritis Father Cancer Father SURGICAL HISTORY Past Surgical History: Procedure Laterality Date BASAL CELL CARCINOMA EXCISION Right leg SECTION, LOW TRANSVERSE x2 COMPLETE MASTECTOMY W/ SENTINEL NODE BIOPSY FOOT SURGERY HYSTERECTOMY summer LAMINECTOMY 1998 L4-[address] Franklin OTHER SURGICAL HISTORY [place] node MI EXCIS PRIMARY GANGLION WRIST 2016 SHOULDER SURGERY 10/07/2021 SCOPE W/ STELLA & SAD - DR ORELLANA SKIN CANCER EXCISION 09/2018 melanoma on Left shoulder blade (toled) SPINE SURGERY 2008 TUBAL LIGATION 2008 REVIEW OF SYSTEMS Review of Systems: Review of Systems Constitutional: Negative. HENT: Negative. Eyes: Negative. Respiratory: Negative. Cardiovascular: Negative. Gastrointestinal: Negative. Genitourinary: Negative. Musculoskeletal: Negative. Skin: Negative. Neurological: Negative. All other systems reviewed and are negative. Hematological: Negative. Endocrine: Negative. Allergic/Immunologic: Negative. OBJECTIVE Objective: Physical Exam Constitutional: Appearance: Normal appearance. She is well-developed. Genitourinary: Vulva normal. Vaginal cuff intact. Breasts: Breasts are soft. Right: Normal. Left: Normal. Cardiovascular: Rate and Rhythm: Normal rate and regular rhythm. Pulmonary: Effort: Pulmonary effort is normal. Breath sounds: Normal breath sounds. Abdominal: General: Bowel sounds are normal. There is no distension. Palpations: Abdomen is soft. Tenderness: There is no abdominal tenderness. There is no guarding or rebound. Musculoskeletal: General: No swelling. Normal range of motion. Right lower leg: No edema. Left lower leg: No edema. Neurological: Mental Status: She is alert and oriented to person, place, and time. Skin: General: Skin is warm and dry. Psychiatric: Mood and Affect: Mood normal. Behavior: Behavior normal. Vitals and nursing note reviewed. Exam conducted with a aeronautical engineering teacher present. Vitals: Estimated body mass index is 35.51 kg/m?? as calculated from the following: Height as of 12/29/22: 5' 5 . Weight as of 09/05/23: 213 lb 6.4 oz. BP: No LMP recorded. ASSESSMENT & PLAN ICD-10-CM 1. Well woman exam with routine gynecological exam Z01.419 Annual: Patient presents today for an annual exam. Patient states she is doing well and has no complaints. Pap was obtained without difficulty and patient given mammogram order to have scheduled/obtained. No orders of the defined types were placed in this encounter. Follow Up: Patient is to return in one year for annual unless needed otherwise. Documented by Kaylene Duran MA on behalf of: Hans Colby DO documented in this encounter Plan of Treatment Upcoming Encounters Date Type Department Care Team (Late st Contact Info) Description 09/18/2025 11:00 AM EDT Office Visit [facility] [address] [place] [address] Hans Colby DO [address] [place] [address] Scheduled Orders Name Type Priority Associated Diagnoses Orde r Schedule Bilateral screening mammogram Imaging Routine Breast cancer screening by mammogram Expected: 09/09/2024 (Approximate), Expires: 11/09/2025 THIN PREP TIS PAP AND HR HPV DNA Pathology and Cytology Routine Well woman exam with routine gynecological exam Ordered: 09/09/2024 documented as of this encounter Procedures Procedure Name Priority Date/Time Associated Diagnosis Comments PAP SMEAR Routine 09/05/2023 12:00 AM EDT documented in this encounter Results * Pap Smear (09/05/2023 12:00 AM EDT) Swab Cervical swab / Unknown Hans Colby DO LAB CYTOLOGY ORDERABLES Final Re sult EXTERNAL LAB documented in this encounter Visit Diagnoses Diagnosis Well woman exam with routine gynecological exam Routine gynecological examination Breast cancer screening by mammogram documented in this encounter Care Teams Loader Helper Sorting Yard Relationship Specialty Start Date End Date Zofia Ocasio MD [address] [place] [address] PCP - General Family Medicine 08/23/22 documented as of this encounter
--- OUTSIDE RECORDS SUMMARY | 2024-09-09 12:28 | XMS_ITS | Encounter Summary ---
Author Organization [facility] Address [address] [place] [address] Care Team Providers Care Manager Company Name Role Phone Zofia Ocasio MD Primary Care Provider [phone] Source Comments In the event this information is protected by the Federal Confidentiality of Alcohol and Drug AbusePatient Records regulations: The Federal rules restrict any use of the information to criminally investigate or prosecute any alcohol or drug abuse patient.[facility] Encounter Details Date Type Department Care Team (Late st Contact Info) Description 03/13/2020 Patient Msg Hematology/Oncology [address] [place] [address] Cassie Jose, PSS New Appointment Social History Tobacco Use Types Packs/Day Years Used Date Smoking Tobacco: Former Cigarettes Q uit: 08/02/2018 Smokeless Tobacco: Never Alcohol Use Standard Drinks/Week Comments Yes 0 (1 standard drink = 0.6 oz pur e alcohol) occasionally PHQ-2 Answer Date Recorded PHQ-2 score 0 09/19/2019 Area Deprivation Index Answer Date Eduardo rded National Score (1-100), lower number is lower ri sk Not on file 03/10/2020 State Score (1-10), lower number is lower risk N ot on file 03/10/2020 Data from: https://www.neighborhoodatlas.medicine.[facility].edu/. Last address used for calculation Not on file 03/10/2020 Comments No Sex and Gender Information Value Date Recorded Sex Assigned at Not on file Legal Sex Female 9:33 AM EST Gender Identity Female 01/20/2020 11:33 AM EDT Sexual Orientation Not on file documented as of this encounter Plan of Treatment Upcoming Encounters Date Type Department Care Team (Late st Contact Info) Description 10/01/2024 10:40 AM EDT Appointment Radiology MRI [address] [place] [address] meningioma 10/01/2024 1:45 PM EDT Office Visit Neurosurgery [address] [place] [address] Ce Piña, VEHICLE SAFETY INSPECTOR.ITALIAN TEACHER [address] [place] [address] meningioma documented as of this encounter Visit Diagnoses Not on filedocumented in this encounter Care Teams Manager Company Relationship Specialty Start Date End Date Zofia Ocasio MD [address] [place] [address] PCP - General Family Medicine 01/17/23 documented as of this encounter
--- OUTSIDE RECORDS SUMMARY | 2024-09-09 12:28 | XMS_ITS | Encounter Summary ---
Author Organization [facility] Address [facility] [place] [address] Care Team Providers Care Cylinder Worker Name Role Phone Zofia Ocasio MD Primary Care Provider [phone] Source Comments In the event this information is protected by the Federal Confidentiality of Alcohol and Drug AbusePatient Records regulations: The Federal rules restrict any use of the information to criminally investigate or prosecute any alcohol or drug abuse patient.[facility] Encounter Details Date Type Department Care Team (Late st Contact Info) Description 06/07/2021 Patient Msg Gastroenterology [address] [address] Nya Paredes MD [address] [place] [address] pathology results Social History Tobacco Use Types Packs/Day Years Used Date Smoking Tobacco: Former Cigarettes Q uit: 08/02/2018 Smokeless Tobacco: Never Alcohol Use Standard Drinks/Week Comments Yes 0 (1 standard drink = 0.6 oz pur e alcohol) occasionally PHQ-2 Answer Date Recorded PHQ-2 score 0 04/29/2021 Area Deprivation Index Answer Date Eduardo rded National Score (1-100), lower number is lower ri sk Not on file 03/10/2020 State Score (1-10), lower number is lower risk N ot on file 03/10/2020 Data from: https://www.neighborhoodatlas.medicine.[facility]/. Last address used for calculation Not on file 03/10/2020 Comments No Sex and Gender Information Value Date Recorded Sex Assigned at Not on file Legal Sex Female 9:33 AM EST Gender Identity Female 01/20/2020 11:33 AM EDT Sexual Orientation Not on file COVID-19 Exposure Response Date Recorded In the last month, have you been in contact with someone who was confirmed or suspected to have Coronavirus / COVID-19? Unable to assess 06/09/2021 11:07 AM EST documented as of this encounter Plan of Treatment Upcoming Encounters Date Type Department Care Team (Late st Contact Info) Description 10/01/2024 10:40 AM EDT Appointment Radiology MRI [address] [place] [address] meningioma 10/01/2024 1:45 PM EDT Office Visit Neurosurgery [address] [place] [address] Ce Piña, KHARI.EMBEDDED LINUX ENGINEER [address] [place] [address] meningioma documented as of this encounter Visit Diagnoses Not on filedocumented in this encounter Care Teams Cylinder Worker Relationship Specialty Start Date End Date Zofia Ocasio MD [address] [place] [address] PCP - General Family Medicine 01/17/23 documented as of this encounter
--- OUTSIDE RECORDS SUMMARY | 2024-09-09 12:28 | XMS_ITS | Encounter Summary ---
Author Organization [facility] Address [address] [place] [address] Care Team Providers Care Utilization Reviewer Name Role Phone Zofia Ocasio MD Primary Care Provider Source Comments In the event this information is protected by the Federal Confidentiality of Alcohol and Drug AbusePatient Records regulations: The Federal rules restrict any use of the information to criminally investigate or prosecute any alcohol or drug abuse patient.[facility] Encounter Details Date Type Department Care Team (Late st Contact Info) Description 05/12/2021 [place] [address] Provider, Ccf Questionnaire Submission Social History Tobacco Use Types Packs/Day Years [...] ot on file 03/10/2020 Data from: https://www.neighborhoodatlas.medicine.[facility].edu/. Last address used for calculation Not on [...] or suspected to have Coronavirus / COVID-19? No / Unsure 05/13/2021 8:28 AM EST documented as of this encounter Plan of Treatment Upcoming Encounters Date Type Department Care Team (Late st Contact Info) Description 10/01/2024 10:40 AM EDT Appointment Radiology MRI [address] [place] [address] meningioma 10/01/2024 1:45 PM EDT Office Visit Neurosurgery [address] [place] [address] Ce Piña, PIN CHASER.HOSPICE REGISTERED NURSE [address] [place] [address] meningioma documented as of this encounter Visit Diagnoses Not on filedocumented in this encounter Care Teams Utilization Reviewer Relationship Specialty Start Date End Date Zofia Ocasio MD [address] [place] [address] PCP - General Family Medicine 01/17/23 documented as of this encounter
--- OUTSIDE RECORDS SUMMARY | 2024-09-09 12:28 | XMS_ITS | Encounter Summary ---
Author Organization [facility] Address [address] [place] [address] Care Team Providers Care Continuous Washer Operator Name Role Phone Zofia Ocasio MD Primary Care Provider [phone] Source Comments In the event this information is protected by the Federal Confidentiality of Alcohol and Drug AbusePatient Records regulations: The Federal rules restrict any use of the information to criminally investigate or prosecute any alcohol or drug abuse patient.[facility] Encounter Details Date Type Department Care Team (Late st Contact Info) Description 05/12/2023 Patient Msg [facility] [address] [place] [address] Provider, Ccf Appointments Social History Tobacco Use Types Packs/Day Years Used Date Smoking Tobacco: Former Cigarettes Q uit: 08/02/2018 Smokeless Tobacco: Never Alcohol Use Standard Drinks/Week Comments Yes 0 (1 standard drink = 0.6 oz pur e alcohol) occasionally PHQ-2 Answer Date Recorded PHQ-2 score 0 10/17/2022 Area Deprivation Index Answer Date Eduardo rded National Score (1-100), lower number is lower ri sk 78 10/18/2022 State Score (1-10), lower number is lower risk 6 10/18/2022 Data from: https://www.neighborhoodatlas.medicine.[facility].edu/. Last address used for calculation [address] 10/18/2022 Comments No Sex and Gender Information Value Date Recorded Sex Assigned at Not on file Legal Sex Female 9:33 AM EST Gender Identity Female 01/20/2020 11:33 AM EDT Sexual Orientation Not on file documented as of this encounter Plan of Treatment Upcoming Encounters Date Type Department Care Team (Late st Contact Info) Description 10/01/2024 10:40 AM EDT Appointment Radiology MRI [address] [place] [address] meningioma 10/01/2024 1:45 PM EDT Office Visit Neurosurgery [address] [place] [address] Ce Piña, SETTER MACHINE.BARREL MAKER [address] [place] [address] meningioma documented as of this encounter Visit Diagnoses Not on filedocumented in this encounter Care Teams Continuous Washer Operator Relationship Specialty Start Date End Date Zofia Ocasio MD [address] [place] [address] PCP - General Family Medicine 01/17/23 documented as of this encounter
--- OUTSIDE RECORDS SUMMARY | 2024-09-09 12:28 | XMS_ITS | Encounter Summary ---
Author Organization [facility] Address [address] [place] [address] Care Team Providers Care Prosthetic Makeup Designer Name Role Phone Zofia Ocasio MD Primary Care Provider [phone] Garry Roque Unavailable [phone] Encounter Details Date Type Department Care Team (Late Contact Info) Description 09/12/2022 External Result Encounter [facility] External Department Unsolicited Taz Rossi, BOBO [address] [facility] [address] [place] [address] Social History Tobacco Use Types Packs/Day Years Used Date Smoking Tobacco: Never Passive Smoke Exposure: Never Smokeless Tobacco: Never Alcohol Use Standard Drinks/Week Comments Yes 0 (1 standard drink = 0.6 oz pur e alcohol) Comments Unknown Sex and Gender Information Value Date Recorded Sex Assigned at Not on file Legal Sex Female 7:33 PM EDT Gender Identity Not on file Sexual Orientation Not on file documented as of this encounter Plan of Treatment Upcoming Encounters Date Type Department Care Team (Late st Contact Info) Description 09/18/2025 11:00 AM EDT Office Visit [facility] [address] [place] [address] Hans Colby DO [address] [place], [place] [id number] documented as of this encounter Procedures Procedure Name Priority Date/Time Associated Diagnosis Comments XR CHEST 2 VIEWS 09/12/2022 4:52 PM EDT documented in this encounter Results * XR chest 2 views (09/12/2022 4:52 PM EDT) Anatomical Region Laterality Modality Chest Radiographic Linda ging 09/12/2022 4:52 PM EDT Impressions 09/13/2022 10:46 AM EDT No acute cardiopulmonary pathology. Impression dictated by: Florentino Woods M.D.09/12/2022 4:53 PM Dictation Location: [facility]- Transcribed By: [facility] 09/12/221652 Dictated By: Florentino Woods II, MD 09/12/221651 Signed By: <Electronically signed by Florentino Woods II, MD in OV> 09/12/221652 Narrative 09/13/2022 10:46 AM EDT [place] [id number] XRay Report Signed Patient: Conchis Cruz MR#: [id number] 3 : 1975 Acct:[id number] Age/Sex: 47 / F ADM Date: 09/12/22 Loc: [place] Room: Type: [facility] Attending Dr: Taz Rossi DPBrendan Copies to: [...] in the left axilla. XR/XR chest 2V* Procedure Note Radiology, Radiologist, - 09/13/[address] [address] XRay Report Signed Patient: Maycol CruzR#: [id number] 3 : 1975Acct:[id number] Age/Sex: 47 / FADM Date: 09/12/22 Loc: [place] Room:Type: [facility] Attending Dr: Taz Rossi DPM Copies to: Taz Rossi DPM Ordering Provider: Taz Rossi DPM Date of Service: 09/12/22 XR/XR chest 2V*: Z01.818 XR chest 2V* 09/12/2022 1:03 PM SIGNS AND SYMPTOMS: Presurgical testing for foot surgery PROTOCOL: Frontal and lateral radiograph of the chest COMPARISON: None FINDINGS: The trachea is midline. The heart and mediastinal structures are withinnormal limits. The lung parenchyma is clear. The bony thorax is intact. Surgical clips are notedin the left axilla. XR/XR chest 2V* IMPRESSION: No acute cardiopulmonary pathology. Impression dictated by: Florentino Woods M.D.09/12/2022 4:53 PM Dictation Location: [place] [address] Transcribed By: [facility] 09/12/22 165 Dictated By: Florentino Woods II, MD 09/12/221651 Signed By: <Electronically signed by Florentino Woods II, MD inOV> 09/12/22 165 Taz Rossi DPM IMG XR PROCEDURES Final Res ult documented in this encounter Visit Diagnoses Not on filedocumented in this encounter Care Teams Prosthetic Makeup Designer Relationship Specialty Start Date End Date Zofia Ocasio MD [address] [place] [address] PCP - General Family Medicine 08/23/22 Garry Roque PA [address] [address] PCP - Medical Letcher Commercial 09/01/22 06/10/23 documented as of this encounter
--- OUTSIDE RECORDS SUMMARY | 2024-09-09 12:28 | XMS_ITS | Encounter Summary ---
Author Organization [facility] Address [address] [place] [address] Care Team Providers Care Adjunct Professor Of English Name Role Phone Zofia Ocasio MD Primary Care Provider [phone] Garry Roque Unavailable [phone] Encounter Details Date Type Department Care Team (Late st Contact Info) Description 09/07/2022 Orders Only [facility] P[facility] [address] [place] [phone] Adelina Muse RN Preop examination Social History Tobacco Use Types Packs/Day Years [...] EDT Office Visit [facility] OB [address] [place] [phone] Hans Colby DO [address] [place] [address] Scheduled Orders Name Type Priority Associated Diagnoses Orde r Schedule Basic metabolic panel Lab Routine Preop examination Expected: 09/07/2022 (Approximate), Expires: 09/08/2023 XR chest 2 views Imaging Routine Preop examination Expected: 09/07/2022, Expires: 09/08/2023 documented as of this encounter Procedures Procedure Name Priority Date/Time Associated Diagnosis Comments CBC WITH AUTO DIFFERENTIAL Routine 09/12/2022 12:38 PM EDT Preop examination documented in this encounter Results * CBC auto differential (09/12/2022 12:38 PM EDT) WBC 7.7 3.8 - 11.6 10*3/uL 09/12/2022 2:22 PM EDT [facility] UNCORRECTED WHITE BLOOD COUNT 7.7 3.8 - 11.6 10*3/uL 09/12/2022 2:22 PM EDT [facility] RBC 4.80 3.60 - 5.00 09/12/2022 2:22 PM EDT [facility] HEMOGLOBIN 14.3 11.8 - 15.4 g/dL 09/12/2022 2:22 PM EDT [facility] HEMATOCRIT 41.8 34.0 - 46.4 % 09/12/2022 2:22 PM EDT [facility] MCV 87.2 80 - 100 fL 09/12/2022 2:22 PM EDT [facility] MCH 29.8 24.7 - 34.3 pg 09/12/2022 2:22 PM EDT [facility] MCHC 34.2 32.0 - 35.0 g/dL 09/12/2022 2:22 PM EDT [facility] RED CELL DISTRIBUTION WIDTH, RDW 12.9 11.9 - 15.3 % 09/12/2022 2:22 PM EDT [facility] PLATELET COUNT 225 150 - 450 10*3/uL 09/12/2022 2:22 PM EDT [facility] MEAN PLATELET VOLUME, MPV 7.5 6.3 - 10.7 fL 09/12/2022 2:22 PM EDT [facility] NEUTROPHILS, % 62.2 . % 09/12/2022 2:22 PM EDT [facility] LYMPHOCYTES, % 25.3 . % 09/12/2022 2:22 PM EDT [facility] MONOCYTES 9.1 . % 09/12/2022 2:22 PM EDT [facility] EOSINOPHILS, % 2.7 . % 09/12/2022 2:22 PM EDT [facility] BASOPHILS, % 0.7 . % 09/12/2022 2:22 PM EDT [facility] NRBC 0.4 0 - 0.5 /100{WBC} 09/12/2022 2:22 PM EDT [facility] NEUTROPHILS 4.8 1.8 - 7.7 10*3/uL 09/12/2022 2:22 PM EDT [facility] LYMPHOCYTES 2.0 1.00 - 4.8 10*3/uL 09/12/2022 2:22 PM EDT [facility] Monocytes 0.7 0.0 - 0.8 10*3/uL 09/12/2022 2:22 PM EDT [facility] EOSINOPHILS 0.2 0.0 - 0.45 10*3/uL 09/12/2022 2:22 PM EDT [facility] BASOPHILS 0.1 0.0 - 0.2 10*3/uL 09/12/2022 2:22 PM EDT [facility] Blood Venous blood specimen / Unknown 09/12/2022 12:38 PM EDT 09/12/2022 12:38 PM EDT Taz Rossi DPM LAB BLOOD ORDERABLES Final Result Performing Organization Address City/State/[facility] Co de Phone Number [facility] [address] [place] [address], [facility] [address] [place] [address] documented in this encounter Visit Diagnoses Diagnosis Preop examination Unspecified pre-operative examination documented in this encounter Care Teams Adjunct Professor Of English Relationship Specialty [place] [address] [place] [phone] PCP - General Family Medicine 08/23/22 Garry Roque PA [address] [address] PCP - Medical [place] Commercial 09/01/22 06/10/23 documented as of this encounter
--- OUTSIDE RECORDS SUMMARY | 2024-09-09 12:29 | XMS_ITS | Encounter Summary ---
Author Organization [facility] Address [address] [facility] [place] [address] Care Team Providers Care Water Meter Installer Name Role Phone Zofia Ocasio MD Primary Care Provider [phone] Garry Roque Unavailable [phone] Encounter Details Date Type Department Care Team (Late st Contact Info) Description 06/07/2023 Clinisync Result Encounter [facility] External Department Unsolicited Veto Colby, DO [address] [place], [place] [phone] Social History Tobacco Use Types Packs/Day Years Used Date Smoking Tobacco: Former Cigarettes Passive Smoke Exposure: Never Smokeless Tobacco: Former Comments:Last smoked 10 year s ago Alcohol Use Standard Drinks/Week Comments Yes 0 (1 standard drink = 0.6 oz pur e alcohol) monthly or less Comments Unknown Sex and Gender Information Value Date Recorded Sex Assigned at Not on file Legal Sex Female 7:33 PM EDT Gender Identity Not on file Sexual Orientation Not on file documented as of this encounter Plan of Treatment Upcoming Encounters Date Type Department Care Team (Late st Contact Info) Description 09/18/2025 11:00 AM EDT Office Visit [facility] OB [address] [place] [phone] Veto Colby DO [address] [place] [address] documented as of this encounter Procedures Procedure Name Priority Date/Time Associated Diagnosis Comments US PELVIS W/ TRANSVAGINAL 06/07/2023 8:55 AM EST documented in this encounter Results * US PELVIS W/ TRANSVAGINAL (06/07/2023 8:55 AM EST) Anatomical Region Laterality Modality Other 06/07/2023 8:55 AM EST Narrative 06/07/2023 8:57 [place] [address] Ultrasound Report Signed Patient: CONCHIS CRUZ MR#: [id number] : 1975 Acct:[id number] Age/Sex: 47 / F ADM Date: 06/07/23 Loc: [facility] Attending Dr: Veto Colby D.O. Ordering Physician: Veto Colby D.O. Date of Service: 06/07/23 Procedure(s): US pelvis w/ transvaginal Accession Number(s): [id number] cc: Zofia Ocasio M.D.; Veto Colby D.O. [address] [address] Patient Name: CONCHIS CRUZ MRN: [id number] date: 1975 Sex: F Assigned Patient Location: [facility] Current Patient Location: [facility] Accession/Order Number: [id number] Exam Date: 06/07/2023 08:01 Report Date: 06/07/2023 08:55 At the request of: VETO COLBY Procedure: US pelvis w/ transvaginal EXAMINATION: US pelvis w/ transvaginal HISTORY: OVARIAN CYST COMPARISON: 03/22/2023 CT exam FINDINGS: The uterus is surgically absent The right ovary is normal in size, contour and echotexture measuring 2.4 x 1.4 x 1.3 cm. Normal color and Doppler flow. The ovarian cyst seen by CT, seen on today's exam Left ovary is nonvisualized No free fluid US/US pelvis w/ transvaginal IMPRESSION: Resolution of previously identified right ovarian cyst Electronically authenticated by: ZHANNA DELONG Date: 06/07/2023 08:55 Dictated By: Zhanna Delong M.D. Signed By: 06/07/2357 DD/ 4 TD/TT: Fiberglasser: Procedure Note Radiology, Radiologist, - 06/07/2023 [place] [address] Ultrasound Report Signed Patient: CONCHIS CRUZ LMR#: [id number] : 1975Acct:[id number] Age/Sex: 47 / FADM Date: 06/07/23 Loc: [facility] Attending Dr: Veto Colby D.O. Ordering Physician: Veto Colby D.O. Date of Service: 06/07/23 Procedure(s): US pelvis w/ transvaginal Accession Number(s): [id number] cc: Zofia Ocasio M.D.; Veto Colby D.O. [place] [id number] Patient Name: CONCHIS CRUZ MRN: [id number] date: 1975 Sex: F Assigned Patient Location: [facility] Current Patient Location: [facility] Accession/Order Number: [id number] Exam Date: 06/07/2023 08:01 Report Date: 06/07/2023 08:55 At the request of: VETO COLBY Procedure: US pelvis w/ transvaginal EXAMINATION: US pelvis w/ transvaginal HISTORY: OVARIAN CYST COMPARISON: 03/22/2023 CT exam FINDINGS: The uterus is surgically absent The right ovary is normal in size, contour and echotexture measuring 2.4 x1.4 x 1.3 cm. Normal color and Doppler flow. The ovarian cyst seen by CT, seenon today's exam Left ovary is nonvisualized No free fluid US/US pelvis w/ transvaginal IMPRESSION: Resolution of previously identified right ovarian cyst Electronically authenticated by: ZHANNA DELONG Date: 06/07/2023 08:55 Dictated By: Zhanna Delong M.D. Signed By:06/07/23 0857 DD/ 4 TD/TT: Fiberglasser: us Veto Lasha DO [facility] Final Result documented in this encounter Visit Diagnoses Not on filedocumented in this encounter Care Teams Water Meter Installer Relationship Specialty Start Date End Date Zofia Ocasio MD [address] [place] [address] PCP - General Family Medicine 08/23/22 Garry Roque PA [address] [address] PCP - Medical [place] Commercial 09/01/22 06/10/23 documented as of this encounter
--- OUTSIDE RECORDS SUMMARY | 2024-09-09 12:29 | XMS_ITS | Encounter Summary ---
Author Organization [facility] Address [address] [place] [address] Care Team Providers Care Instructor Robotics Name Role Phone Zofia Ocasio MD Primary Care Provider [phone] Source Comments In the event this information is protected by the Federal Confidentiality of Alcohol and Drug AbusePatient Records regulations: The Federal rules restrict any use of the information to criminally investigate or prosecute any alcohol or drug abuse patient.[facility] Reason for Visit * Reason Comments Radiology MRI Encounter Details Date Type Department Care Team (Late st Contact Info) Description 06/01/2021 Radiology Radiology MRI [address] [place], [place] [phone] Nat Rutherford RT(R) Radiology MRI Social History Tobacco Use Types Packs/Day Years [...] N ot on file 03/10/2020 Data from: https://www.neighborhoodatlas.medicine.[facility].edu/. Last address used for calculation Not on [...] have Coronavirus / COVID-19? Unable to assess 06/03/2021 7:11 AM EST documented as of this encounter Plan of Treatment Upcoming Encounters Date Type Department Care Team (Late st Contact Info) Description 10/01/2024 10:40 AM EDT Appointment Radiology MRI [address] [facility] [address] [place] [address] meningioma 10/01/2024 1:45 PM EDT Office Visit Neurosurgery [address] [place] [address] Ce Piña, LOCKER ROOM SUPERVISOR.REGULATORY SCIENTIST [address] [place] [address] meningioma documented as of this encounter Visit Diagnoses Not on filedocumented in this encounter Care Teams Instructor Robotics Relationship Specialty Start Date End Date Zofia Ocasio MD [address] [place] [phone] PCP - General Family Medicine 01/17/23 documented as of this encounter
--- OUTSIDE RECORDS SUMMARY | 2024-09-09 12:29 | XMS_ITS | Encounter Summary ---
Author Organization [facility] Address [id number] [address] [place] [address] Care Team Providers Care Nutrition Tech Name Role Phone Zofia Ocasio MD Primary Care Provider [phone] Encounter Details Date Type Department Care Team (Late st Contact Info) Description 05/16/2019 Documentation [facility] [address] [facility] [address] [place] [address] Amanda Farley, TANK PUMPER PANELBOARD-TURN DOWN MAN [address] [facility] [place], [place] [phone] Social History Tobacco Use Types Packs/Day Years Used Date Smoking Tobacco: Former Smokeless Tobacco: Never Alcohol Use Standard Drinks/Week Comments Yes 0 (1 standard drink = 0.6 oz pur e alcohol) Social Childcare Answer Date Recorded Childcare Unknown 09/27/2018 Employment Answer Date Recorded Employment Unknown 09/27/2018 Comments Unknown Sex and Gender Information Value Date Recorded Sex Assigned at Not on file Legal Sex Female 1:38 PM EDT Gender Identity Not on file Sexual Orientation Not on file documented as of this encounter Plan of Treatment Not on file documented as of this encounter Visit Diagnoses Not on filedocumented in this encounter Care Teams Nutrition Tech Relationship Specialty Start Date End Date Zofia Ocasio MD [address] [place] [address] PCP - General Family Medicine 09/27/18 documented as of this encounter
--- OUTSIDE RECORDS SUMMARY | 2024-09-09 12:29 | XMS_ITS | Encounter Summary ---
Author Organization [facility] Address [address] [place] [address] Care Team Providers Care Director Of Revenue Name Role Phone Zofia Ocasio MD Primary Care Provider [phone] Source Comments In the event this information is protected by the Federal Confidentiality of Alcohol and Drug AbusePatient Records regulations: The Federal rules restrict any use of the information to criminally investigate or prosecute any alcohol or drug abuse patient.[facility] Encounter Details Date Type Department Care Team (Late st Contact Info) Description 02/13/2024 Patient Msg Hematology/Oncology [address] [place] [address] Provider, Ccf Appointment Scheduling Social History Tobacco Use Types Packs/Day Years Used Date Smoking Tobacco: Former Cigarettes Q uit: 08/02/2018 Smokeless Tobacco: Never Alcohol Use Standard Drinks/Week Comments Yes 0 (1 standard drink = 0.6 oz pur e alcohol) occasionally PHQ-2 Answer Date Recorded PHQ-2 score 0 12/14/2023 Area Deprivation Index Answer Date Eduardo rded National Score (1-100), lower number is lower ri 78 10/18/2022 State Score (1-10), lower number is lower risk 6 10/18/2022 Data from: https://www.neighborhoodatlas.medicine.[facility].edu/. Last address used for calculation [address] [...] 10:40 AM EDT Appointment Radiology MRI [address] [address] [facility] [place] [address] meningioma 10/01/2024 1:45 PM EDT Office Visit Neurosurgery [address] [place] [address] Ce Piña, HARDWOOD FLOOR FINISHER.PHYSICIANS ASSISTANT [address] [place] [address] meningioma documented as of this encounter Visit Diagnoses Not on filedocumented in this encounter Care Teams Director Of Revenue Relationship Specialty Start Date End Date Zofia Ocasio MD [address] [place] [phone] PCP - General Family Medicine 01/17/23 documented as of this encounter
--- OUTSIDE RECORDS SUMMARY | 2024-09-09 12:29 | XMS_ITS | Encounter Summary ---
Author Organization [facility] Address [address] [place] [address] Care Team Providers Care Quality Reviewer Name Role Phone Zofia Ocasio MD Primary Care Provider [phone] Source Comments In the event this information is protected by the Federal Confidentiality of Alcohol and Drug AbusePatient Records regulations: The Federal rules restrict any use of the information to criminally investigate or prosecute any alcohol or drug abuse patient.[facility] Encounter Details Date Type Department Care Team (Late st Contact Info) Description 08/20/2024 Patient Msg [facility] [address] [place] [phone] Provider, Ccf UPCOMING APPOINTMENTS Social History Tobacco Use Types Packs/Day Years Used Date Smoking Tobacco: Former Cigarettes Q uit: 08/02/2018 Smokeless Tobacco: Never Alcohol Use Standard Drinks/Week Comments Yes 0 (1 standard drink = 0.6 oz pur e alcohol) occasionally PHQ-2 Answer Date Recorded PHQ-2 score 0 06/16/2024 Area Deprivation Index Answer Date Eduardo rded National Score (1-100), lower number is lower ri 78 10/18/2022 State Score (1-10), lower number is lower risk 6 10/18/2022 Data from: https://www.neighborhoodatlas.medicine.[facility].edu/. Last address used for calculation [address] [...] MRI [address] [facility] [facility] [place] [address] meningioma 10/01/2024 1:45 PM EDT Office Visit Neurosurgery [address] [facility] [place] [address] Ce Piña, CREATIVE SERVICES DIRECTOR.HELIARC WELDER [address] [place] [address] meningioma documented as of this encounter Visit Diagnoses Not on filedocumented in this encounter Care Teams Quality Reviewer Relationship Specialty Start Date End Date Zofia Ocasio MD [address] [place] [address] PCP - General Family Medicine 01/17/23 documented as of this encounter
--- OUTSIDE RECORDS SUMMARY | 2024-09-09 12:29 | XMS_ITS | Encounter Summary ---
Author Organization [facility] Address [address] [place] [address] Care Team Providers Care Distributor Advertising Material Name Role Phone Zofia Ocasio MD Primary Care Provider [phone] Garry Roque Unavailable [phone] Encounter Details Date Type Department Care Team (Late st Contact Info) Description 11/17/2022 Abstract [facility] [address] [facility] [address] [place] [address] Rl Bunch, PT [address] [facility] [address] [place] [address] Social History Tobacco Use Types Packs/Day Years [...] EDT Office Visit [facility] [address] [facility] [place] [phone] Hans Colyb, DO [address] [facility] [place] [address] documented as of this encounter Visit Diagnoses Not on filedocumented in this encounter Care Teams Distributor Advertising Material Relationship Specialty Start Date End Date Zofia Ocasio MD [address] [place] [phone] PCP - General Family Medicine 08/23/22 Garry Roque PA [address] [address] PCP - Medical [place] Commercial 09/01/22 06/10/23 documented as of this encounter
--- OUTSIDE RECORDS SUMMARY | 2024-09-09 12:29 | XMS_ITS | Encounter Summary ---
Author Organization [facility] Address [address] [facility] [place] [address] Care Team Providers Care Identification Officer Name Role Phone Zofia Ocasio MD Primary Care Provider [phone] Garry Roque Unavailable [phone] Encounter Details Date Type Department Care Team (Late Contact Info) Description 02/13/2023 Abstract [facility] POD [address] [place] [address] La Nena Child MA Social History Tobacco Use Types Packs/Day Years [...] Visit [facility] BCP OB [address] [place] [address] Hans Colby DO [address] [place], [place] [phone] documented as of this encounter Visit Diagnoses Not on filedocumented in this encounter Care Teams Identification Officer Relationship Specialty Start Date End Date Zofia Ocasio MD [address] [facility] [place] [address] PCP - General Family Medicine 08/23/22 Garry Roque PA [address] [address] PCP - Medical [place] Commercial 09/01/22 06/10/23 documented as of this encounter
--- OUTSIDE RECORDS SUMMARY | 2024-09-09 12:29 | XMS_ITS | Clinical Summary ---
Author Organization [facility] Address [id number] [address] [place] [address] Care Team Providers Care Reception Clerk Name Role Phone Zofia Ocasio MD Primary Care Provider [phone] Allergies No known active allergies Medications HYDROcodone-jose armando taminophen (NORCO) 5-325 mg per tabletIndicatio ns:Malignant melanoma of upper back ([facility]) Take 1 tablet by mouth every 6 (six) hours as needed for pain. Max Daily Amount: 4 tablets 20 tablet 9 Active Additional Information Patient not taking.Reported on 10/18/2018 Active Problems Problem Noted Date Diagnosed Date Preop testing 10/03/2018 Malignant melanoma of upper back 10/01/2018 Family History Relation Name Status Comments Father Alive Mother Alive Sister Alive Social History Tobacco Use Types Packs/Day Years Used Date Smoking Tobacco: Former Smokeless Tobacco: Never Alcohol Use Standard Drinks/Week Comments Yes 0 (1 standard drink = 0.6 oz pur e alcohol) Social Childcare Answer Date Recorded Childcare Unknown 09/27/2018 Employment Answer Date Recorded Employment Unknown 09/27/2018 Purpose - Life Answer Date Recorded Purpose and direction in life Unknown Comments Unknown Sex and Gender Information Value Date Recorded Sex Assigned at Not on file Legal Sex Female 1:38 PM EDT Gender Identity Not on file Sexual Orientation Not on file Last Filed Vital Signs Vital Sign Reading Time Taken Comments Blood Pressure 129/71 10/11/2018 4:45 PM EDT Pulse 82 10/11/2018 4:05 PM EDT Temperature 36.4 C (97.5 F) 10/11/2018 4:20 PM EDT Respiratory Rate 17 10/11/2018 4:05 PM EDT Oxygen Saturation 94% 10/11/2018 4:50 PM EDT Inhaled Oxygen Concentration - - Weight 94.9 kg (209 lb 3.5 oz) 10/11/2018 7:36 A M EDT Height 162.6 cm (5' 4 ) 10/11/2018 7:36 AM EDT Body Mass Index 35.91 10/11/2018 7:36 AM EDT Plan of Treatment Health Maintenance Due Date Last Done Comments Depression Screening 1987 Tobacco Screening 1987 Adult BMI Screening 07/12/1993 DTaP,Tdap and Td Vaccines (1 - Tdap) 07/12/1994 Pap Smear 07/12/1996 Influenza Vaccine 12/02/2024 Medical Devices Not on file Insurance [employer] Care Teams Reception Clerk Relationship Specialty Start Date End Date Zofia Ocasio MD [address] [place], [place] [phone] PCP - General Family Medicine 09/27/18
--- OUTSIDE RECORDS SUMMARY | 2024-09-09 12:29 | XMS_ITS | Patient Health Record ---
Author Organization [facility] in [place] Address [address] [place] [address] Care Team Providers Care Cloth Shearing Supervisor Name Role Phone Zofia Ocasio Primary Care Provider Aleksander Yi [phone] Allergies No Known Allergies Results Component Value Reference Range Notes XR foot LT min 3V (Not yet r eviewed by provider) Interpretation: Performing Lab: Notes/Report: Source Facility: [place] [address] XRay Report Signed Patient: CONCHIS CRUZ MR#: [id number] : 1975 Acct:[id number] Age/Sex: 48 / F ADM Date: 04/30/24 Loc: [facility] Attending Dr: Aleksander Morillo D.P.M. Ordering Physician: Aleksander Morillo D.P.M. Date of Service: 04/30/24 Procedure(s): XR foot LT min 3V Accession Number(s): [id number] cc: Zofia Ocasio M.D.; Aleksander Morillo D.P.M. [place] [address] Patient Name: CONCHIS CRUZ MRN: [id number] date: 1975 Sex: F Assigned Patient Location: RAD Current Patient Location: RAD Accession/Order Number: [id number] Exam Date: 04/30/2024 09:40 Report Date: 04/30/2024 10:33 At the request of: ALEKSANDER MORILLO Procedure: XR foot LT min 3V PROCEDURE: XR ankle LT min 3V, XR foot LT min 3V COMPARISON: 09/01/2023, 10/02/2023 HISTORY: LEFT ANKLE PAIN FINDINGS: BONES:No acute fracture or dislocation. Stable posterior calcaneal osteotomy with bony bridging. Moderate enthesopathic spurring of the calcaneus at the Achilles and plantar insertions. No lytic or sclerotic changes SOFT TISSUES:Negative. No visible soft tissue swelling. EFFUSION:None visible. OTHER: Negative. XR/XR foot LT min 3V IMPRESSION: Stable postsurgical and degenerative changes Electronically authenticated by: ZHANNA DELONG Date: 04/30/2024 10:33 Dictated By: Zhanna Delong M.D. Signed By: 04/30/24 1035 DD/ 1033 TD/TT: Forensic Dna Analyst: [place] [address] XRay Report Signed Patient: KELLI CRUZ MR#: [id number] : 1975 Acct:[id number] Age/Sex: 48 / F ADM Date: 04/30/24 Loc: RAD Attending Dr: Aleksander Morillo D.P.M. Ordering Physician: Aleksander Morillo D.P.M. Date of Service: 04/30/24 Procedure(s): XR foot LT min 3V Accession Number(s): [id number] cc: Zofia Ocasio; Aleksander Morillo D.P.M. [place] [address] Patient Name: CONCHIS CRUZ MRN: [id number] date: 1975 Sex: F Assigned Patient Location: RAD Current Patient Location: RAD Accession/Order Numb er: [id number] Exam Date: 04/30/2024 09:40 Report Date: 04/30/2024 10:33 At the request of: ALEKSANDER MORILLO Procedure: XR foot LT min 3V PROCEDURE: XR ankle LT min 3V, XR foot LT min 3V COMPARISON: 09/01/2023, 10/02/2023 HISTORY: LEFT ANKLE PAIN FINDINGS: BONES:No acute fract ure or dislocation. Stable posterior calcaneal osteotomy with bony bridging. Moderate enthesopathic spurring of the calcaneus at the Achilles and plantar insertions. No lytic or sclerotic changes SOFT TISSUES:Negativ e. No visible soft tissue swelling. EFFUSION:None visible. OTHER: Negative. X R/XR foot LT min 3V IMPRESSION: Stable postsurgical and degenerative changes Electronically authe nticated by: ZHANNA DELONG Date: 04/30/2024 10:33 Dictated By: Zhanna Delong M.D. Signed By: 04/30/24 1035 DD/ 1033 TD/TT: Forensic Dna Analyst: XR ankle LT min 3V (Not yet reviewed by provider) Interpretation: Performing Lab: Notes/Report: Source Facility: [place] [address] XRay Report Signed Patient: CONCHIS CRUZ MR#: [id number] : 1975 Acct:[id number] Age/Sex: 48 / F ADM Date: 04/30/24 Loc: RAD Attending Dr: Aleksander Morillo D.P.M. Ordering Physician: Aleksander Morillo D.P.M. Date of Service: 04/30/24 Procedure(s): XR ankle LT min 3V Accession Number(s): [id number] cc: Zofia Ocasio M.D.; Aleksander Morillo D.P.M. [place] [address] Patient Name: CONCHIS CRUZ MRN: [id number] date: 1975 Sex: F Assigned Patient Location: [facility] Current Patient Location: [facility] Accession/Order Number: [id number] Exam Date: 04/30/2024 09:40 Report Date: 04/30/2024 10:33 At the request of: ALEKSANDER MORILLO Procedure: XR ankle LT min 3V PROCEDURE: XR ankle LT min 3V, XR foot LT min 3V COMPARISON: 09/01/2023, 10/02/2023 HISTORY: LEFT ANKLE PAIN FINDINGS: BONES:No acute fracture or dislocation. Stable posterior calcaneal osteotomy with bony bridging. Moderate enthesopathic spurring of the calcaneus at the Achilles and plantar insertions. No lytic or sclerotic changes SOFT TISSUES:Negative. No visible soft tissue swelling. EFFUSION:None visible. OTHER: Negative. XR/XR ankle LT min 3V IMPRESSION: Stable postsurgical and degenerative changes Electronically authenticated by: ZHANNA DELONG Date: 04/30/2024 10:33 Dictated By: Zhanna Delong M.D. Signed By: 04/30/24 1035 DD/ 1033 TD/TT: Forensic Dna Analyst: [place] [address] XRay Report Signed Patient: KELLI CRUZ MR#: [id number] : 1975 Acct:[id number] Age/Sex: 48 / F ADM Date: 04/30/24 Loc: RAD Attending Dr: Aleksander Morillo D.P.M. Ordering Physician: Aleksander Morillo D.P.M. Date of Service: 04/30/24 Procedure(s): XR ankle LT min 3V Accession Number(s): [id number] cc: Zofia Ocasio; Aleksander Morillo D.P.M. [place] [address] Patient Name: CONCHIS CRUZ MRN: [id number] date: 1975 Sex: F Assigned Patient Location: [facility] Current Patient Location: [facility] Accession/Order Numb er: [id number] Exam Date: 04/30/2024 09:40 Report Date: 04/30/2024 10:33 At the request of: ALEKSANDER MORILLO Procedure: XR ankle LT min 3V PROCEDURE: XR ankle LT min 3V, XR foot LT min 3V COMPARISON: 09/01/2023, 10/02/2023 HISTORY: LEFT ANKLE PAIN FINDINGS: BONES:No acute fract ure or dislocation. Stable posterior calcaneal osteotomy with bony bridging. Moderate enthesopathic spurring of the calcaneus at the Achilles and plantar insertions. No lytic or sclerotic changes SOFT TISSUES:Negativ e. No visible soft tissue swelling. EFFUSION:None visible. OTHER: Negative. X R/XR ankle LT min 3V IMPRESSION: Stable postsurgical and degenerative changes Electronically authe nticated by: ZHANNA DELONG Date: 04/30/2024 10:33 Dictated By: Zhanna Delong M.D. Signed By: 04/30/24 1035 DD/ 1033 TD/TT: Forensic Dna Analyst: Reason For Referral No Information Medications Medication SIG (Take, Route, Frequency, Duration) Notes Start Date End Date Status Multivitamin Women - as directed Orally Active Alendronate Sodium 70 MG Oral for 28 Days Active Vitamin D3 125 MCG (5000 UT) Oral for 90 Days Active Pregabalin 50 MG 1 capsule Orally Twice a day for 30 days Good RX for copay assistance 06/16/2023 Active Docusate Sodium 100 MG Oral for 7 Days Active [facility] Aspirin Low Dose 81 MG Oral for 30 Days Active Cefadroxil 500 MG Oral for 7 Days Active Berberine Chloride 500 MG as directed Orally Active Leqvio 284 MG/1.5ML as directed Subcutaneous Active Ibuprofen 800 MG 1 tablet with food or milk as needed Orally every 8 hrs 04/20/2023 Active Social History Tobacco Use: Social History Observation Description Date Details (start date - stop date) Never Smoker NA - NA Tobacco Use/Smoking Question Answer Notes Patient is a nonsmoker Problems Problem Type SNOMED Code ICD Code Onset Dates Problem Status W/U Status Risk Notes Problem 118412510372904 Unspecified mononeuropathy of left lower limb (G57.92) Active confirmed Problem 656825425 Valgus deformity , not elsewhere classified, left ankle (M21.072) Active confirmed Problem 276817272 Varus deformity, not elsewhere classified, 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) Active confirmed Problem 120749381 Other acquired deformities of left foot (M21.6X2) Active confirmed Problem 02894645 Other acquired deformities of unspecified foot (M21.6X9) Active confirmed Problem 76593819 Other specified acquired deformities of left lower leg (M21.862) Active confirmed Problem 6821136909654039 Other instability, left ankle (M25.372) Active confirmed Problem 97995494855790930 Plantar fascia l 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) Active confirmed Problem 269426605724227 Peroneal tendinitis, left leg (M76.72) Active confirmed Problem Arthralgia of the ankle and/or foot (098513488) Ankle pain, left (M25.572) Active confirmed Problem Pain in limb (55734275) Foot pain, left (M79.672) Active confirmed Problem Arthralgia of the ankle and/or foot (260054170) Left ankle pain (M25.572) Active confirmed Problem 8379715017986189 Bunionette of left foot (M21.622) Active confirmed Problem Acquired hammer toe of left foot (6800505859143462) 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672 and Left ankle pain M25.572 [facility] [address] [place], [place] [address] [address] 10/23/2023 Peter Highlander Pain due to other internal prosthetic devices, implants and grafts, initial encounter T85.848A [facility] [place] [address] 10/10/2023 Peter Highlander Pain due to other internal prosthetic devices, implants and grafts, initial encounter T85.848A [facility] [address] [place], [place] [address] [address] 11/08/2023 Peter Highlander Pain due to other internal prosthetic devices, implants and grafts, initial encounter T85.848A [facility] OUT[facility] [place] [address] 10/02/2023 Aleksander Woodardander Assessments Encounter Date Diagnosis (ICD Code) Assessment Notes Treatment Notes Treatment Clinical Notes Section Notes 10/10/2023 Pain due to other internal prosthetic devices, implants and grafts, initial encounter (ICD-10 - T85.848A) The patient is 1 week s/p removal of the left foot hardware, DOS: 10/02/2023. She is doing well. No evidence of infection or DVT on examination.She was encouraged to keep her incisions clean and covered with a dry bandage. She may wear what ever shoe gear is most comfortable.Follow -up in 2 weeks, sooner if any issues arise. No x-rays are necessary at that time. 10/23/2023 Pain due to other internal prosthetic devices, implants and grafts, initial encounter (ICD-10 - T85.848A) 11/08/2023 Pain due to other internal prosthetic devices, implants and grafts, initial encounter (ICD-10 - T85.848A) Patient is doing very well following hardware removal. I have no restrictions for her. She is very happy and she will follow-up as needed 04/30/2024 Varus deformity, not elsewhere classified, left [...] pain (ICD-10 - M25.572) Plan Of Treatment Pending Test Test Name Order Date XR Ankle LT (3 views) * (164) 04/30/2024 XR Foot LT (3 views) * 04/30/2024 XR foot LT min 3V 04/30/2024 ECG 12 lead 03/22/2023 XR ankle LT min 3V 04/30/2024 FL fluoroscopy <1hr NON-READ 04/04/2023 Insurance Providers Payer Name Payer Address Payer Phone Subscriber Number Group Number Insured Name Patient Relationship to Insured Coverage Start Date Coverage End Date MMO [address] [place], [place] [id number] Conchis Cruz Self - patient is the insured Medical (General) History Medical History History ICD Code Melanoma C43.9 hypercholesterol Surgical History Surgery Date(Month/Year) Removal of deep implanted link rdware left calcaneus, excision of hypertrophic scar and delayed closure of wound left lateral ankle 10/02/2023 laminectomy section x2 hysterectomy right wrist lump removed melanoma removal left lateral displacement ca lcaneal osteotomy, lateral ankle stabilization with modified Brostrom-Peterson, peroneal tendon repair, EPF, tailor's bunionectomy, correction of 5th hammertoe with PIPJ arthroplasty, stress exam under fluoro 03.30.2023 Hospitalization History Reason Date(Month/Year) see above
--- OUTSIDE RECORDS SUMMARY | 2024-09-09 12:29 | XMS_ITS | Encounter Summary ---
Author Organization [facility] Address [address] [place] [address] Care Team Providers Care Tufter Hand Name Role Phone Zofia Ocasio MD Primary Care Provider [phone] Encounter Details Date Type Department Care Team (Late Contact Info) Description 09/09/2024 Bamboo flowsheet [facility] [address] [place] [address] Hans Colby DO [address] [place], [place] [address] Social History Tobacco Use Types Packs/Day Years [...] 09/18/2025 11:00 AM EDT Office Visit [facility] [address] [place] [address] Hans Colby DO [address], [place] [address] documented as of this encounter Visit Diagnoses Not on filedocumented in this encounter Care Teams Tufter Hand Relationship Specialty Start Date End Date Zofia Ocasio MD [address] [place] [address] PCP - General Family Medicine 08/23/22 documented as of this encounter
--- OUTSIDE RECORDS SUMMARY | 2024-09-09 12:29 | XMS_ITS | Encounter Summary ---
Author Organization [facility] Address [address] [place] [address] Care Team Providers Care Parts Cataloger Name Role Phone Zofia Ocasio MD Primary Care Provider [phone] Garry Roque Unavailable [phone] Reason for Visit * Reason Comments Med Refill Encounter Details Date Type Department Care Team (Late st Contact Info) Description 10/25/2022 Refill [facility] [address] [place] [address] Taz Rossi, DPM [address] [address] Plantar fasciitis Social History Tobacco Use Types Packs/Day Years [...] EDT Office Visit [facility] [address] [place] [phone] Hans Colby, DO [address] [place], [place] [address] documented as of this encounter Visit Diagnoses Diagnosis Plantar fasciitis Plantar fascial fibromatosis documented in this encounter Care Teams Parts Cataloger Relationship Specialty [place] [address] [place] [address] PCP - General Family Medicine 08/23/22 Garry Roque PA [address] [address] PCP - [facility] [place] [facility] 09/01/22 06/10/23 documented as of this encounter
--- OUTSIDE RECORDS SUMMARY | 2024-09-09 12:29 | XMS_ITS | Encounter Summary ---
Author Organization [facility] Address [address] [place] [address] Care Team Providers Care Pre Press Proofer Name Role Phone Zofia Ocasio MD Primary Care Provider [phone] Garry Roque Unavailable [phone] Encounter Details Date Type Department Care Team (Late Contact Info) Description 01/19/2023 Abstract [facility] [address] [facility] [address] [place] [phone] Taz Rossi, DPBrendan [address] [facility] [address] [place] [address] Social History Tobacco Use Types Packs/Day Years [...] EDT Office Visit [facility] [address] [facility] [place] [address] Hans Colby, [address] [place], [place] [id number] documented as of this encounter Visit Diagnoses Not on filedocumented in this encounter Care Teams Pre Press Proofer Relationship Specialty [place] [address] [place] [address] PCP - General Family Medicine 08/23/22 Garry Roque PA [address] [address] PCP - [facility] 09/01/22 06/10/23 documented as of this encounter
--- OUTSIDE RECORDS SUMMARY | 2024-09-09 12:29 | XMS_ITS | Encounter Summary ---
Author Organization [facility] Address [address] [place] [address] Care Team Providers Care Vision Impaired Teacher Name Role Phone Zofia Ocasio MD Primary Care Provider [phone] Source Comments In the event this information is protected by the Federal Confidentiality of Alcohol and Drug AbusePatient Records regulations: The Federal rules restrict any use of the information to criminally investigate or prosecute any alcohol or drug abuse patient.[facility] Encounter Details Date Type Department Care Team (Late st Contact Info) Description 05/18/2021 Patient Msg Hematology/Oncology [address] [place] [address] Provider, Ccf Ativan ordered to take prior to Scan Social History Tobacco Use Types Packs/Day Years Used Date Smoking Tobacco: Former Cigarettes Q uit: 08/02/2018 Smokeless Tobacco: Never Alcohol Use Standard Drinks/Week Comments Yes 0 (1 standard drink = 0.6 oz pur e alcohol) occasionally PHQ-2 Answer Date Recorded PHQ-2 score 0 04/29/2021 Area Deprivation Index Answer Date Eduardo rded National Score (1-100), lower number is lower ri Not on file 03/10/2020 State Score (1-10), lower number is lower risk N ot on file 03/10/2020 Data from: https://www.neighborhoodatlas.medicine.[facility].edu/. Last address used for calculation Not [...] have Coronavirus / COVID-19? Unable to assess 05/20/2021 7:08 AM EST documented as of this encounter Plan of Treatment Upcoming Encounters Date Type Department Care Team (Late st Contact Info) Description 10/01/2024 10:40 AM EDT Appointment Radiology MRI [address] [place] [address] meningioma 10/01/2024 1:45 PM EDT Office Visit Neurosurgery [address] [place] [address] Ce Piña, FRONT DESK RECEPTIONIST.BARREL LATHE OPERATOR [address] [place] [address] meningioma documented as of this encounter Visit Diagnoses Not on filedocumented in this encounter Care Teams Vision Impaired Teacher Relationship Specialty Start Date End Date Zofia Ocasio MD [address] [place] [address] PCP - General Family Medicine 01/17/23 documented as of this encounter
--- OUTSIDE RECORDS SUMMARY | 2024-09-09 12:29 | XMS_ITS | Clinical Summary ---
Author Organization [facility] Address [facility] [place] [address] Care Team Providers Care Invasive Physician Name Role Phone Zofia Ocasio MD Primary Care Provider [phone] Allergies No known active allergies Medications omeprazole (PRILOSEC) 20 mg capsule Take 20 mg by mouth once daily. Active meloxicam (MOBIC) 15 mg tablet 2 Active inclisiran (LEQVIO) 284 mg/1.5 mL injection 2 Active dexAMETHasone (DECADRON) 4 mg tablet Start the day after your Gamma Knife Procedure: Decadron (Dexamethasone), Take 4 mg (1 tablet) daily for 4 days, Take 2 mg (1/2 tablet) daily for 4 days, then stop Decadron 6 tablet 3 Active famotidine (PEPCID) 20 mg tablet Take 1 tablet by mouth once daily. 6 tablet 3 Active REPATHA SURECLICK 140 mg/mL pen injector Inject 140 mg subcutaneously every 2 weeks. 4 Active Active Problems Problem Noted Date Diagnosed Date Benign neoplasm of meninges 01/27/2023 Encounters Date Type Department Care Team Description 08/20/2024 Patient Msg [facility] [address] [place] [address] Provider, Ccf UPCOMING APPOINTMENTS 06/17/2024 10:45 AM EDT Visit (SP) Office Hematology/Oncology [address] [place] [address] Evert Bennett MD 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) (Primary Dx) 06/16/2024 Travel from Last 3 Months Social History Tobacco Use Types Packs/Day Years [...] is lower risk 6 10/18/2022 Data from: https://www.neighborhoodatlas.medicine.[facility].edu/. Last address used for calculation [address] 10/18/2022 Comments No Sex and Gender Information Value Date Recorded Sex Assigned at Not on file Legal Sex Female 9:33 AM EST Gender Identity Female 01/20/2020 11:33 AM EDT Sexual Orientation Not on file Last Filed Vital Signs Vital Sign Reading Time Taken Comments Blood Pressure 141/76 06/17/2024 10:39 AM EDT Pulse 84 06/17/2024 10:39 AM EDT Temperature 36.2 C (97.2 F) 06/17/2024 10:39 AM EDT Respiratory Rate 16 06/17/2024 10:3 9 AM EDT Oxygen Saturation 95% 06/17/2024 10: 39 AM EDT Inhaled Oxygen Concentration - - Weight 103.1 kg (227 lb 4.7 oz) 025 10:39 AM EDT Height 162.6 cm (5' 4 ) 12/14/2023 10:4 6 AM EDT Body Mass Index 39.01 12/14/2023 10:46 AM EDT Plan of Treatment Upcoming Encounters Date Type Department Care Team (Late st Contact Info) Description 10/01/2024 10:40 AM EDT Appointment Radiology MRI [address] [place] [address] meningioma 10/01/2024 1:45 PM EDT Office Visit Neurosurgery [address] [place] [address] Ce Piña, KHARI.REGISTERED NURSE STEP DOWN [address] [place] [address] meningioma Health Maintenance Due Date Last Done Comments Anxiety Screening 07/12/1993 Depression Screening 07/12/1993 HIV Screening 07/12/1993 Hepatitis C Screening 07/12/1993 DTaP,Tdap,Td Vaccine (1 - Tdap) 07/12/1994 Hepatitis B Vaccine (1 of 3 - 19+ 3-dose series) 07/12/1994 Cervical Cancer Screening 07/12/1996 [address] Colonography 07/12/2020 Cologuard (FIT-DNA) 07/12/2020 Colonoscopy 07/12/2020 Colorectal Cancer Screening 07/12/2020 Fecal Occult Blood 07/12/2020 Lipid Screening 07/12/2020 Sigmoidoscopy 07/12/2020 Diabetes Screening 01/24/2022 01/24/2019 Covid-19 Vaccine ( season) 12/03/202308/2020, 05/15/2020 Influenza Vaccine (Season Ended) 2024 Procedures Procedure Name Priority Date/Time Associated Diagnosis Comments COMPREHENSIVE METABOLIC PANEL STAT 01/24/2019 1:42 PM EDT Malignant melanoma of skin (HCC) from Last 3 Months or Most Recently Relevant to Health Maintenance Results * COMP METABOLIC PANEL (01/24/2019 1:42 PM EDT) Protein, Total 7.1 6.3 - 8.0 g/dL 01/24/2019 3:[address] [facility] Albumin 4.6 3.9 - 4.9 g/dL 01/24/2019 3:[address] [facility] Calcium 9.8 8.5 - 10.2 mg/dL 01/24/2019 3:[address] [facility] Bilirubin, Total 0.3 0.2 - 1.3 mg/dL 01/24/2019 3:[address] [facility] Alkaline Phosphatase 60 34 - 123 U/L 01/24/2019 3:11 PM [facility] AST 16 13 - 35 U/L 01/24/2019 3:11 PM [facility] Glucose 94 74 - 99 mg/dL 01/24/2019 3:11 PM [facility] Comment: The [place] Diabetes Association (ADA) provides guidance for cutoff values for fasting glucose and random glucose. The ADA defines fasting as no caloric intake for at least 8 hours. Fasting plasma glucose results between 100 to 125 mg/dL indicate increased risk for diabetes (prediabetes). Fasting plasma glucose results greater than or equal to 126 mg/dL meet the criteria for diagnosis of diabetes. In the absence of unequivocal hyperglycemia, results should be confirmed by repeat testing. In a patient with classic symptoms of hyperglycemia or hyperglycemic crisis, random plasma glucose results greater than or equal to 200 mg/dL meet the criteria for diagnosis of diabetes. Reference: Standards of Medical Care in Diabetes 2016, [place] Diabetes Association. Diabetes Care. 2016.39(Suppl 1). BUN 17 7 - 21 mg/dL 01/24/2019 3:11 PM [facility] Creatinine 0.92 0.58 - 0.96 mg/dL 01/24/2019 3:11 PM [facility] Sodium 141 136 - 144 mmol/L 01/24/2019 3:11 PM [facility] Potassium 4.4 3.7 - 5.1 mmol/L 01/24/2019 3:11 PM [facility] Chloride 102 97 - 105 mmol/L 01/24/2019 3:11 PM [facility] CO2 27 22 - 30 mmol/L 01/24/2019 3:11 PM [facility] Anion Gap 12 9 - 18 mmol/L 01/24/2019 3:11 PM [facility] ALT 16 7 - 38 U/L 01/24/2019 3:11 PM [facility] eGFR- >60 01/24/2019 3:11 PM [facility] eGFR-All Other Races >60 . 01/24/2019 3:11 PM [facility] Comment: eGFR (Estimated GFR) Units of measure: [...] eGFR may not accurately reflect actual GFR. Blood specimen (specimen) BLOOD SPECIMEN / Unknown 01/24/2019 1:42 PM EDT 01/24/2019 1:44 PM EDT us Evert Bennett MD LABORATORY Final Resu lt [facility] [address] [facility] [address] [facility] [address] [place] [address] from Last 3 Months or Most Recently Relevant to Health Maintenance Insurance [facility] PPO Care Teams Invasive Physician Relationship Specialty Start Date End Date Zofia Ocasio MD [address] [facility] [place] [phone] PCP - General Family Medicine 01/17/23
--- OUTSIDE RECORDS SUMMARY | 2024-09-09 12:30 | XMS_ITS | Encounter Summary ---
Author Organization [facility] Address [address] [place] [address] Care Team Providers Care Casual Shoe Inspector Name Role Phone Zofia Ocasio MD Primary Care Provider [phone] Garry Roque PA Unavailable [phone] Encounter Details Date Type Department Care Team (Late Contact Info) Description 03/03/2023 Abstract [facility] PT [address] [facility] [address] [place] [address] Derian Macdonald, PT Social History Tobacco Use Types Packs/Day Years Used Date Smoking Tobacco: Former Cigarettes Passive Smoke Exposure: Never Smokeless Tobacco: Former Tobacco Cessation:Counseling Given: Not Answered Comments:Last smoked 10 years ago Alcohol Use Standard Drinks/Week Comments Yes [...] Visit [facility] B[facility] OB [address] [place] [phone] Hans Colby DO [address] [place] [address] documented as of this encounter Visit Diagnoses Not on filedocumented in this encounter Care Teams Casual Shoe Inspector Relationship Specialty Start Date End Date Zofia Ocasio MD [address] [facility] [place] [address] PCP - General Family Medicine 08/23/22 Garry Roque PA [address] [address] PCP - Medical [place] [employer] 09/01/22 06/10/23 documented as of this encounter
--- OUTSIDE RECORDS SUMMARY | 2024-09-09 12:30 | XMS_ITS | Encounter Summary ---
Author Organization [facility] Address [address] [place] [address] Care Team Providers Care Turnaround Engineer Name Role Phone Zofia Ocasio MD Primary Care Provider [phone] Source Comments In the event this information is protected by the Federal Confidentiality of Alcohol and Drug AbusePatient Records regulations: The Federal rules restrict any use of the information to criminally investigate or prosecute any alcohol or drug abuse patient.[facility] Reason for Referral * MRI/CT (Routine) - Closed Specialty Diagnoses / Procedures Referred By Contac t Referred To Contact MR IMAGING Diagnoses Benign neoplasm of meninges (HCC) Procedures MRI BRAIN WO/W IVCON MRI BRAIN BRAIN STEM W/O W/CONTRAST MATERIAL Wilfrid Beckwith DO, PhD [address] [place] [address] Phone: tel: fax: MR IMAGING [id number] Referral ID Status Reason Start Date Expiration Date V isits Requested Visits Authorized [id number] Closed Auto-Generate d Referral 11/25/2022 12/25/2023 1 1 * MRI/CT (Routine) - Closed Specialty Diagnoses / Procedures Referred By Selene lloyd Referred To Contact MR IMAGING Diagnoses Benign neoplasm of meninges (HCC) Procedures MRI BRAIN LOCALIZATION W IVCON UNLISTED MAGNETIC RESONANCE PROCED Wilfrid Beckwith DO, PhD [address] [place] [address] Phone: tel: fax: MR IMAGING [place] [address] Referral ID Status Reason Start Date Expiration Date V isits Requested Visits Authorized [id number] Closed Auto-Generate d Referral 12/06/2022 1 1 Encounter Details Date Type Department Care Team (Late st Contact Info) Description 11/25/2022 Cure Form [facility] [address] [place] [id number] [place] [address] [place] [id number] Benign neoplasm of meninges (HCC) (Primary Dx) Social History Tobacco Use Types Packs/Day Years [...] is lower risk 6 10/18/2022 Data from: https://www.neighborhoodatlas.medicine.[facility].edu/. Last address used for calculation [address] 10/18/2022 Comments No Sex and Gender Information Value Date Recorded Sex Assigned at Not on file Legal Sex Female 9:33 AM EST Gender Identity Female 01/20/2020 11:33 AM EDT Sexual Orientation Not on file documented as of this encounter Plan of Treatment Upcoming Encounters Date Type Department Care Team (Late st Contact Info) Description 10/01/2024 10:40 AM EDT Appointment Radiology MRI [address] [place] [address] meningioma 10/01/2024 1:45 PM EDT Office Visit Neurosurgery [address] [place] [address] Ce Piña, KHARI.SUPERVISOR [employer]ED [employer]ATS [address] [place] [address] meningioma documented as of this encounter Results * MRI BRAIN WO/W IVCON (09/12/2023 11:35 AM EDT) Anatomical Region Laterality Modality Head Magnetic Resonan ce 09/12/2023 11:3 5 AM EDT Impressions 09/12/2023 12:00 PM EDT IMPRESSION: Unchanged size of presumed 9 mm meningioma along the left frontal convexity without substantial mass effect. [facility] Transcribe Date/Time: Sep 12 2023 11:55A Dictated by : IAN DUNNE MD This examination was interpreted and the report reviewed and electronically signed by: IAN DUNNE MD on Sep 12 2023 11:58AM EST Narrative 09/12/2023 12:00 PM EDT * * *Final Report* * * DATE OF EXAM: Sep 12 2023 11:35AM [facility] 0295 - MRI BRAIN WO/W IVCON [...] orbits and extracranial soft tissues are unremarkable. Procedure Note Provider, [facility] - 09/12/2023 * * *Final Report* * * DATE OF EXAM: Sep 12 2023 11:35AM [facility] 0295 - MRI BRAIN WO/W IVCON [...] left frontal convexity without substantial mass effect. Sprinkler Tender: [facility] Transcribe Date/Time: Sep 12 2023 11:55A Dictated by : IAN DUNNE MD This examination was interpreted and the report reviewed and electronically signed by: IAN DUNNE MD on Sep 12 2023 11:58AM EST us Wilfrid Beckwith DO, PhD MRI-PAMA Final Resul t * MRI BRAIN LOCALIZATION W IVCON (01/27/2023 8:04 AM EDT) Anatomical Region Laterality Modality Head Magnetic Resonan ce 01/27/2023 8:04 AM EDT Impressions 01/27/2023 8:22 AM EDT IMPRESSION: REDEMONSTRATION OF LIKELY SMALL MENINGIOMA OVER LEFT FRONTAL LOBE, UNCHANGED GOING BACK TO 06/01/2021 Sprinkler Tender: [facility] Transcribe Date/Time: Jan 27 2023 8:08A Dictated by : ESTUARDO WHALEY MD This examination was interpreted and the report reviewed and electronically signed by: ESTUARDO WHALEY MD on Jan 27 2023 8:20AM EST Narrative 01/27/2023 8:22 AM EDT * * *Final Report* * * DATE [...] technique there is no subjacent parenchymal reaction. Procedure Note Provider, [facility] [place] - 01/27/2023 * * *Final Report* * * DATE [...] technique there is no subjacent parenchymal reaction. 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
--- OUTSIDE RECORDS SUMMARY | 2024-09-09 12:30 | XMS_ITS | Encounter Summary ---
Author Organization [facility] Address [address] [place] [address] Care Team Providers Care Hose Operator Name Role Phone Zofia Ocasio MD Primary Care Provider Source Comments In the event this information is protected by the Federal Confidentiality of Alcohol and Drug AbusePatient Records regulations: The Federal rules restrict any use of the information to criminally investigate or prosecute any alcohol or drug abuse patient.[facility] Encounter Details Date Type Department Care Team (Latest Contact Info) Description 01/20/2023 Patient Msg Radiology [address] [place] [address] Provider, Ccf SAFETY SCREENING FORM Social History Tobacco Use Types Packs/Day Years [...] is lower risk 6 10/18/2022 Data from: https://www.neighborhoodatlas.medicine.[facility].edu/. Last address used for calculation [address] [...] 10:40 AM EDT Appointment Radiology MRI [address] [place] [address] meningioma 10/01/2024 1:45 PM EDT Office Visit Neurosurgery [address] [place] [address] Ce Piña, V BELT SKIVER.SOCK DRIER [address] [place] [address] meningioma documented as of this encounter Visit Diagnoses Not on filedocumented in this encounter Care Teams Hose Operator Relationship Specialty Start Date End Date Zofia Ocasio MD [address] [place] [phone] PCP - General Family Medicine 01/17/23 documented as of this encounter
--- OUTSIDE RECORDS SUMMARY | 2024-09-09 12:30 | XMS_ITS | Encounter Summary ---
Author Organization [facility] Address [address] [place] [address] Care Team Providers Care Dairy Technologist Name Role Phone Zofia Ocasio MD Primary Care Provider [phone] Source Comments In the event this information is protected by the Federal Confidentiality of Alcohol and Drug AbusePatient Records regulations: The Federal rules restrict any use of the information to criminally investigate or prosecute any alcohol or drug abuse patient.[facility] Encounter Details Date Type Department Care Team (Late st Contact Info) Description 11/10/2022 Patient Msg [facility] [address] [place] [address] Provider, Ccf Schedule gamma knife Social History Tobacco Use Types Packs/Day Years [...] is lower risk 6 10/18/2022 Data from: https://www.neighborhoodatlas.medicine.[facility].edu/. Last address used for calculation [address] [...] 10:40 AM EDT Appointment Radiology MRI [address] [place] [address] meningioma 10/01/2024 1:45 PM EDT Office Visit Neurosurgery [address] [place] [address] Ce Piña, FIVE PIECE EXPANSION MAKER HAND.CORK COMPOUNDER [address] [place] [address] meningioma documented as of this encounter Visit Diagnoses Not on filedocumented in this encounter Care Teams Dairy Technologist Relationship Specialty Start Date End Date Zofia Ocasio MD [address] [place] [address] PCP - General Family Medicine 01/17/23 documented as of this encounter
--- OUTSIDE RECORDS SUMMARY | 2024-09-09 12:30 | XMS_ITS | Encounter Summary ---
Author Organization [facility] Address [address] [facility] [place] [address] Care Team Providers Care Laborer Aquatic Life Name Role Phone Zofia Ocasio MD Primary Care Provider [phone] Encounter Details Date Type Department Care Team (Late st Contact Info) Description 09/25/2023 Clinisync Result Encounter [facility] External Department Unsolicited Hans Colby DO [address] [place] [phone] Social History Tobacco Use Types Packs/Day Years [...] Visit [facility] BCP OB [address] [place] [phone] Hans Colby DO [address] [place] [address] documented as of this encounter Procedures Procedure Name Priority Date/Time Associated Diagnosis Comments MM TOMOSYNTHESIS SCREENING BI 09/25/2023 8:42 AM EDT documented in this encounter Results * MM TOMOSYNTHESIS SCREENING BI (09/25/2023 8:42 AM EDT) Anatomical Region Laterality Modality Other 09/25/2023 8:42 AM EDT Narrative 09/25/2023 8:43 [place] [address] Mammography Report Signed Patient: CONCHIS CRUZ MR#: [id number] : 1975 Acct:[id number] Age/Sex: 48 / F ADM Date: 09/22/23 Loc: MAMMO Attending Dr: Hans Colby D.O. Ordering Physician: Hans Colby D.O. Results: Date of Service: 09/22/23 Follow Up: Procedure(s): MM tomosynthesis screening BI Accession Number(s): [id number] cc: Zofia Ocasio M.D.; Hans Colby D.O. Patient Name: CONCHIS CRUZ MR#: [id number] : 1975 Exam Date: 09/22/2023 Ordering Doctor: DR Hans Colby . RADIOLOGY REPORT PROCEDURE: MM TOMOSYNTHESIS SCREENING BI COMPARISON: MG MAMM SCREEN 3D JULIO CÉSAR CAD, 09/08/2021. MM TOMOSYNTHESIS SCREENING BI, 09/09/2022. INDICATIONS: Screening Calculator Name NCI Breast Cancer Risk Assessment Tool 5 Year Breast Cancer Risk 0.90% Lifetime Breast Cancer Risk 9.10% Personal Breast Cancer No Personal Ovarian Cancer No Treatments wide excision Family Cancers Grandmother-maternal with breast cancer at age 55; Grandfather-maternal with anal cancer at age 80; Father with pancreatic cancer at age 71. LOCATION: [facility] BREAST COMPOSITION: There are scattered areas of fibroglandular density. FINDINGS: DIAGNOSTIC CATEGORY 2--BENIGN FINDING. NO CHANGE FROM COMPARISON. Scattered benign-appearing nodules are present. Scattered benign-appearing calcifications are present. Scattered benign-appearing lymph nodes are present. RIGHT BREAST: No significant suspicious finding. LEFT BREAST: No significant suspicious finding. RECOMMENDATIONS: ROUTINE MAMMOGRAM AND CLINICAL EVALUATION IN 12 MONTHS. PLEASE NOTE: A NORMAL MAMMOGRAM DOES NOT EXCLUDE THE POSSIBILITY OF BREAST CANCER. A CLINICALLY SUSPICIOUS PALPABLE LUMP SHOULD BE BIOPSIED. Dictated by: Faustino Mc MD on 09/25/2023 at 08:40 Approved by: Faustino Mc MD on 09/25/2023 at 08:42 Dictated By: Faustino Mc M.D. Signed By: 09/25/23 0843 DD/ 0842 TD/TT: Junior Electrical Engineer: Procedure Note Radiology, Radiologist, MD - 09/25/2023 [facility] [place] [id number] Mammography Report Signed Patient: CONCHIS CRUZ LMR#: [id number] : 1975Acct:[id number] Age/Sex: 48 / FADM Date: 09/22/23 Loc: MAMMO Attending Dr: Hans Colby D.O. Ordering Physician: Hans Colby D.O.Results: Date of Service: 09/22/23Follow Up: Procedure(s): MM tomosynthesis screening BI Accession Number(s): [id number] cc: Zofia Ocasio M.D.; Hans Colby D.O. Patient Name: CONCHIS CRUZ MR#: [id number] : 1975 Exam Date: 09/22/2023 Ordering Doctor: DR Hans Colby . RADIOLOGY REPORT PROCEDURE: MM TOMOSYNTHESIS SCREENING BI COMPARISON: MG MAMM SCREEN 3D JULIO CÉSAR CAD, 09/08/2021. MM TOMOSYNTHESIS SCREENING BI, 09/09/2022. INDICATIONS: Screening Calculator Name NCI Breast Cancer Risk Assessment Tool 5 Year Breast Cancer Risk 0.90% Lifetime Breast Cancer Risk 9.10% Personal Breast Cancer No Personal Ovarian Cancer No Treatments wide excision Family Cancers Grandmother-maternal with breast cancer at age 55; Grandfather-maternal with anal cancer at age 80; Father with pancreaticcancer at age 71. LOCATION: [facility] BREAST COMPOSITION: There are scattered areas of fibroglandulardensity. FINDINGS: DIAGNOSTIC CATEGORY 2--BENIGN FINDING. NO CHANGE FROM COMPARISON. Scattered benign-appearing nodules are present. Scatteredbenign-appearing calcifications are present. Scattered benign-appearing lymph nodes are present. RIGHT BREAST: No significant suspicious finding. LEFT BREAST: No significant suspicious finding. RECOMMENDATIONS: ROUTINE MAMMOGRAM AND CLINICAL EVALUATION IN 12 MONTHS. PLEASE NOTE: A NORMAL MAMMOGRAM DOES NOT EXCLUDE THE POSSIBILITY OFBREAST CANCER. A CLINICALLY SUSPICIOUS PALPABLE LUMP SHOULD BE BIOPSIED. Dictated by: Faustino Mc MD on 09/25/2023 at 08:40 Approved by: Faustino Mc MD on 09/25/2023 at 08:42 Dictated By: Faustino Mc M.D. Signed By:09/25/2343 DD/ TD/TT: Junior Electrical Engineer: us Hans [place]asha DO [facility] Final Result documented in this encounter Visit Diagnoses Not on filedocumented in this encounter Care Teams Laborer Aquatic Life Relationship Specialty Start Date End Date Zofia Ocasio MD [facility] [place] [phone] PCP - General Family Medicine 08/23/22 documented as of this encounter
--- OUTSIDE RECORDS SUMMARY | 2024-09-09 12:30 | XMS_ITS | Clinical Summary ---
Author Organization [facility] Address [address] [place] [address] Care Team Providers Care Convention Worker Name Role Phone Zofia Ocasio MD Primary Care Provider [phone] Allergies No known active allergies Medications Repatha SureClick 140 MG/ML injection Inject 140 mg under the skin every 14 (fourteen) days 06/05/2023 Active Active Problems Problem Noted Date Diagnosed Date Abnormal mammogram 08/22/2022 Disorder of breast 08/22/2022 Elevated fasting lipid profile 08/22/2022 Familial hypercholesterolemia 08/22/2022 Ganglion forearm, right 08/22/2022 Gastroesophageal reflux disease 08/22/2022 Encounters Date Type Department Care Team Description 09/09/2024 10:00 AM EDT Office Visit [facility] [address] [place] [address] Hans Colby DO Well woman exam with routine gynecological exam; Breast cancer screening by mammogram 09/09/2024 Bamboo flowsheet [facility] [address] [place] [address] Hans Colby DO from Last 3 Months Family History Medical History Relation Name Comments Arthritis Father Cancer Father Diabetes Father Hypertension Father Kidney cancer Father Relation Name Status Comments Father Mother Alive Social History Tobacco Use Types Packs/Day [...] Pressure 122/74 09/09/2024 10:11 AM EDT Pulse 76 01/19/2023 4:04 PM EDT Temperature - - Respiratory Rate - - Oxygen Saturation - - Inhaled Oxygen Concentration - - Weight 103 kg (226 lb) 09/09/2024 10:11 AM EDT Height 165.1 cm (5' 5 ) 12/29/2022 4:07 PM EDT Body Mass Index 37.61 12/29/2022 4:07 PM EDT Plan of Treatment Upcoming Encounters Date Type Department Care Team (Late st Contact Info) Description 09/18/2025 11:00 AM EDT Office Visit [facility] [address] [facility] [place] [address] Hans Colby, DO [address] [place] [address] Health Maintenance Due Date Last Done Comments CT Colonography 1975 FIT-DNA 1975 FIT 1975 FOBT 1975 Sigmoidoscopy 1975 HPV/Cotest 07/12/2005 Mammogram 09/24/2024 09/25/2023 Influenza Vaccine (Season Ended) 2024 Cervical Cancer Screening 09/04/2026 Pap Smear 09/04/2026 09/05/2023, 03/16/1998 Colonoscopy 02/01/2033 02/01/2023 Colorectal Cancer Screening 02/01/2033 Procedures Procedure Name Priority Date/Time Associated Diagnosis Comments MM TOMOSYNTHESIS SCREENING BI 09/25/2023 8:42 AM EDT PAP SMEAR Routine 09/05/2023 12:00 AM EDT from Last 3 Months or Most Recently Relevant to Health Maintenance Results * MM TOMOSYNTHESIS SCREENING BI (09/25/2023 8:42 AM EDT) Anatomical Region Laterality Modality Other 09/25/2023 8:42 AM EDT Narrative 09/25/2023 8:43 AM EDT The [address] [address] Mammography Report Signed Patient: CONCHIS CRUZ MR#: [id number] : 1975 Acct:[id number] Age/Sex: 48 / F ADM Date: 09/22/23 Loc: MAMMO Attending Dr: Hans Colby D.O. Ordering Physician: Hans Colby D.O. Results: Date of Service: 09/22/23 Follow Up: Procedure(s): MM tomosynthesis screening BI Accession Number(s): [id number] cc: Zofia Ocasio M.D.; Hans Colby D.O. Patient Name: CONCHIS CRUZ MR#: [id number] : 1975 Exam Date: 09/22/2023 Ordering Doctor: [...] pancreatic cancer at age 71. LOCATION: The [facility] BREAST COMPOSITION: There are scattered areas of [...] Mc M.D. Signed By: 09/25/23 0843 DD/ TD/TT: Fur Stretcher: Procedure Note Radiology, Radiologist, MD - 09/25/2023 [place] [address] Mammography Report Signed Patient: CONCHIS CRUZ LMR#: [id number] : 1975Acct:[id number] Age/Sex: 48 / FADM Date: 09/22/23 Loc: MAMMO Attending Dr: Hans Colby D.O. Ordering Physician: Hans Colby D.O.Results: Date of Service: 09/22/23Follow Up: Procedure(s): MM tomosynthesis screening BI Accession Number(s): [id number] cc: Zofia Ocasio M.D.; Hans Colby D.O. Patient Name: CONCHIS CRUZ MR#: [id number] : 1975 Exam Date: 09/22/2023 Ordering Doctor: [...] with pancreaticcancer at age 71. LOCATION: The [facility] BREAST COMPOSITION: There are scattered areas of [...] 08:42 Dictated By: Faustino Mc M.D. Signed By:09/25/23842 DD/ 1 TD/TT: Fur Stretcher: us Hans Lasha DO [facility] Final Result * Pap Smear (09/05/2023 12:00 AM EDT) Swab Cervical swab / Unknown us Hans Lasha DO LAB CYTOLOGY ORDERABLES Final Re sult EXTERNAL LAB from Last 3 Months or Most Recently Relevant to Health Maintenance Insurance [employer] Care Teams Convention Worker Relationship Specialty Start Date End Date Zofia Ocasio MD [address] [facility] [place] [address] PCP - General Family Medicine 08/23/22
--- OUTSIDE RECORDS SUMMARY | 2024-09-09 12:30 | XMS_ITS | Encounter Summary ---
Author Organization [facility] Address [address] [place] [address] Care Team Providers Care Retail Sales Clerk Name Role Phone Zofia Ocasio MD Primary Care Provider Source Comments In the event this information is protected by the Federal Confidentiality of Alcohol and Drug AbusePatient Records regulations: The Federal rules restrict any use of the information to criminally investigate or prosecute any alcohol or drug abuse patient.[facility] Encounter Details Date Type Department Care Team (Late st Contact Info) Description 01/25/2023 Patient Msg Radiation Oncology [address] [place] [address] [place] [address] [place] [address] Questionnaire Submission Social History Tobacco Use Types [...] is lower risk 6 10/18/2022 Data from: https://www.neighborhoodatlas.medicine.[facility].edu/. Last address used for calculation [address] [...] 10:40 AM EDT Appointment Radiology MRI [address] [place] [address] meningioma 10/01/2024 1:45 PM EDT Office Visit Neurosurgery [address] [place] [address] Ce Piña, MECHANICAL MAINTENANCE TECHNICIAN.GEOSPATIAL IMAGE ANALYST [address] [place] [address] meningioma documented as of this encounter Visit Diagnoses Not on filedocumented in this encounter Care Teams Retail Sales Clerk Relationship Specialty Start Date End Date oZfia Ocasio MD [address] [place] [address] PCP - General Family Medicine 01/17/23 documented as of this encounter
[2024-09-13 10:08] LABS: Age Gdln ACOG Testing Note (.); HPV Aptima Negative (Negative); IGP, Aptima HPV, rfx 16/18,45 Note (.)
== END 2024-09-09 12:26 | disposition home or self-care (01) ==
LOC: LAB 12:25
PROVIDERS: Visit Provider Obstetrics & Gynecology
DX: Z01.419 Encounter for gynecological examination (general) (routine) without abnormal findings (principal)
CPT/HCPCS: 87624; 88175

== ENCOUNTER 2024-11-01 08:58 | Outpatient (OUT) | payer OTHER, SELFPAY ==
--- OUTSIDE RECORDS SUMMARY | 2023-10-23 06:30 | XMS_ITS ---
Author Organization The [facility] in [place] Address [address] [place] [address] Care Team Providers Care Bar Machine Operator Production Name Role Phone Zofia Ocasio Primary Care Provider Andrea Yi [phone] REASON FOR VISIT 2 week f/u patient, suture removal, moved from 10/23 due to patient being out of town, Encounters Encounter Location Date Provider Diagnosis [facility] (PODIATRY) [address] [place] [address] [place] [address] 10/23/2023 Andrea Morillo Pain due to other internal prosthetic devices, implants and grafts, initial encounter T85.848A Assessments Encounter Date Diagnosis (ICD Code) Assessment Notes Treatment Notes Treatment Clinical Notes Section Notes 10/23/2023 Pain due to other internal prosthetic devices, implants and grafts, initial encounter (ICD-10 - T85.848A) Plan Of Treatment No Information Progress Notes * Karo CURZCherryOB:1975 (48 yo F)Acc No.[id number]:10/23/2023 Nurse Visit Patient: Conchis ZHOU Provider: Carlos Morillo DPM, MS :1975 A ge:48 Y S ex:Female Date:10/23/2023 [address] [facility] Pcp:Zofia Ocasio Check In:10:22 AM ESTCheck O [...] 10/23/2023 Generated for Kelly stafford/Marisabel/Mercedes on: 0 11/01/2024 09:00 AM EDT History and Physical Notes * HPI [...]
--- OUTSIDE RECORDS SUMMARY | 2023-11-08 06:15 | XMS_ITS ---
Author Organization [facility] in [place] Address [address] [place] [address] Care Team Providers Care Sales Office Administrator Name Role Phone Zofia Ocasio Primary Care Provider Andrea Yi [phone] Allergies No Known Allergies REASON FOR VISIT [...] Notes Patient is a nonsmoker Vital Signs Temperature 97.3 degrees Fahrenheit 11/08/19 24 Heart Rate 76 /min 11/08/2023 Respiratory Rate 16 /min 11/08/2023 Height 65 in 11/08/2023 Weight 205 lbs 11/08/2023 BMI 34.11 kg/m2 11/08/2023 Encounters Encounter Location Date Provider Diagnosis [facility] [place] (PODIATRY) [address] [place], [place] [address] [place] [address] 11/08/2023 Andrea Morillo Pain due to other [...] Notes * Karo CRUZeDOB:1975 (48 yo F)Acc No.[id number]:11/08/2023 Progress Note Patient: Conchis ZHOU Provider: Carlos Morillo DPM MS :1975 A ge:48 Y S ex:Female Date:11/08/2023 Address:[facility] [address], [place] Pcp:Zofia Ocasio Check In:10:13 AM ESTCheck O [...] M usculoskeletal: Bone/Joint Symptoms d enies. C mcfp Pain d enies.?Leg cramps d enies. N [...] RX for copay assistance, Notes: called into [employer] 07.19.2023 0832Vitamin D3 125 MCG (5000 UT) [...] RX for copay assistance, Notes: called into [employer] 07.19.2023 0832Taking Vitamin D3 125 MCG (5000 [...] devices, implants and grafts, initial encounter - T85.282T (Primary) Plan: * Treatment: * Procedure Codes: * * Sign off status: Completed Visit Status: C HK (Check Out) true * Provider: Carlos Morillo DPM, MS Date: 11/08/2023 Generated for Kelly stafford/Marisabel/Margaritasmitting on: 11/01/2024 09:01 AM EDT History and Physical Notes * [...]
--- OUTSIDE RECORDS SUMMARY | 2024-04-30 05:30 | XMS_ITS ---
Author Organization [facility] [place] Address [address] [place] [address] Care Team Providers Care Preparer Samples And Repairs Name Role Phone Zofia Ocasio Primary Care Provider Andrea Yi Unavailable [phone] REASON FOR VISIT left foot fluid pocket on ankle Medications Medication SIG (Take, Route, Frequency, Duration) Notes Start Date End Date Status Multivitamin Women - as directed Orally Active Vitamin D3 125 MCG (5000 UT) Oral for 90 Days Active Pregabalin 50 MG 1 capsule Orally Twice a day for 30 days Good RX for copay assistance 06/16/2023 Active Leqvio 284 MG/1.5ML as directed Subcutaneous Active Ibuprofen 800 MG 1 tablet with food or milk as needed Orally every 8 hrs 04/20/2023 Active Alendronate Sodium 70 MG Oral for 28 Days Active Docusate Sodium 100 MG Oral for 7 Days Active [facility]S Aspirin Low Dose 81 MG Oral for 30 Days Active Cefadroxil 500 MG Oral for 7 Days Active Berberine Chloride 500 MG as directed Orally Active Social History Tobacco Use: Social History Observation Description Date Details (start date - stop date) Never Smoker NA - NA Tobacco Use/Smoking Question Answer Notes Patient is a nonsmoker Vital Signs Temperature 96.8 degrees Fahrenheit 04/30/19 25 Heart Rate 90 /min 04/30/2024 Height 65 in 04/30/2024 Oximetry 99 % 04/30/2024 Encounters Encounter Location Date Provider Diagnosis [facility] (PODIATRY) [address] [place] [address] [place] [address] 04/30/2024 Andrea Morillo Varus deformity, not elsewhere classified, 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 She was concerned about a pocket of swelling which is consistent with herniation of hoax tonsil. She is more concerned about what it was and if it was a problem. She is currently not limited in any respect and is very happy with her outcome. I have no restrictions for her and she may follow-up as needed. 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 She was concerned about a pocket of swelling which is consistent with herniation of hoax tonsil. She is more concerned about what it was and if it was a problem. She is currently not limited in any respect and is very happy with her outcome. I have no restrictions for her and she may follow-up as needed. She is very happy with this plan Pending Test Test Name Order Date XR Ankle LT (3 views) * (164) 04/30/2024 XR Foot LT (3 views) * 04/30/2024 Progress Notes * Karo CRUZeDOB:1975 (48 yo F)Acc No.[id number]:04/30/2024 Follow Up Patient: Conchis ZHOU Provider: Carlos Morillo DPM, MS :1975 A ge:48 Y S ex:Female Date:04/30/2024 Address[facility] [place] [facility] Pcp:Zofia Ocasio Check In:09:25 AM Alvaro O ut:10:44 AM EST Subjective: * Chief Complaints: * L eft foot fluid pocket on ankle * HPI: G eneral: Patient in office today c/o a pocket full of fluid since surgery 03-30-2023. She states rony the pocket of fluid increases in size by the end of the day. She states that it feels sore, tight and itchy at times . She even relates that she feels she needs to ice it to find relief. She has not found anything to help decrease the size. She states she has no pain to her ankle and has made alot of progress since her second surgery in october. * Active Problem List M21.622 Bunionette of [...] mononeur opathy of left lower limb Modified On:06/16/2023W/U Status:confirmed M25.572 Left ankle pain Modified On:04/30/2024W/U Status:confirmed * Medical History: * Surgical History: [...] RX for copay assistance, Notes: called into [facility] 07.19.2023 0832Vitamin D3 125 MCG (5000 UT) [...] RX for copay assistance, Notes: called into [facility] 4 0832Taking Vitamin D3 125 MCG (5000 UT) Capsule Oral Medication List reviewed and reconciled with the patient * Allergies: n o[Allergies Verified] Objective: * Vitals: H t: 65 in, Temp:96.8F, HR:90/min, Pain scale:01-10, Oxygen sat %:99%, Ht-cm: 165.1 cm. * Examination: P odiatry Examination: SKIN: s kin intact, n o sign of infection. MUSCULOSKELETAL: N o pain to palpation, N o gross deformity, S trength equal & symmetric. There is herniation of federico's tonsil which is nonpainful or reducible.. NEUROLOGICAL: l ight touch sensation intact, n egative tinel's sign. VASCULAR: P edal pulses palpable, C apillary refill is brisk to toe, D igital hair intact. X -rays: x-rays were obtained & reviewed in my office. X-rays show healed osteotomies and maintenance of alignment. No evidence of acute fracture or deformity. Assessment: * Assessment: 1. 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 P eroneal tendinitis, left leg - M76.72 3 . O ther instability, left ankle - M25.372 4 . F oot pain, left - M79.672 5 . L eft ankle pain - M25.572 Plan: * Treatment: 2. F oot pain, left I maging: XR Ankle LT (3 views) * (164) I maging: XR Foot LT (3 views) * * Procedure Codes: * * Sign off status: Completed Visit Status: C HK (Check Out) true * Provider: Carlos Morillo DPM, MS Date: 04/30/2024 Generated for Kelly stafford/Marisabel/Donyitting on: 11/01/2024 09:00 AM EDT History and Physical Notes * HPI (History of Present Illness) Category Sub-Category Detail Notes Category Not es General Patient in offi ce today c/o a pocket full of fluid since surgery 03-30-2023. She states royn the pocket of fluid increases in size by the end of the day. She states that it feels sore, tight and itchy at times . She even relates that she feels she needs to ice it to find relief. She has not found anything to help decrease the size. She states she has no pain to her ankle and has made alot of progress since her second surgery in october. Examination Category Sub-Category Detail Notes Category Not es Podiatry Examination SKIN: skin intact, no sign of infection X-rays: x-rays were obtained & reviewed in my office. X-rays show healed osteotomies and maintenance of alignment. No evidence of acute fracture or deformity MUSCULOSKELETAL: No pain to palpation , No gross deformity, Strength equal & symmetric. There is herniation of federico's tonsil which is nonpainful or reducible. NEUROLOGICAL: light touch sensatio n intact, negative tinel's sign VASCULAR: Pedal pulses palpabl e, Capillary refill is brisk to toe, Digital hair intact
--- NOTE | 2024-11-01 | MM_ITS ---
Patient Name: BEN TABOR MR#: [id number] : 1975 Exam Date: 11/01/2024 Ordering Doctor: DR VETO SHIN . RADIOLOGY REPORT PROCEDURE: MM TOMOSYNTHESIS SCREENING BI COMPARISON: MM TOMOSYNTHESIS SCREENING BI, 09/22/2023. MM TOMOSYNTHESIS SCREENING BI, 09/09/2022. MG MAMM SCREEN 3D JULIO CÉSAR CAD, 09/08/2021. MG MAMM SCREEN JULIO CÉSAR W CAD, 08/13/2019. INDICATIONS: SCREENING FOR MALGINANCY OF BREASTS Calculator Name [facility] Breast Cancer Risk Assessment Tool 5 Year Breast Cancer Risk 0.90% Lifetime Breast Cancer Risk 8.90% Personal Breast Cancer No Personal Ovarian Cancer No Treatments wide excision Family Cancers Grandmother-maternal with breast cancer at age 55; Grandfather-maternal with anal cancer at age 80; Father with pancreatic cancer at age 71. LOCATION: The [facility] BREAST COMPOSITION: There are scattered areas of fibroglandular density. FINDINGS: DIAGNOSTIC CATEGORY 1--NEGATIVE. RIGHT BREAST: No significant suspicious finding. LEFT BREAST: No significant suspicious finding. RECOMMENDATIONS: ROUTINE MAMMOGRAM AND CLINICAL EVALUATION IN 12 MONTHS. PLEASE NOTE: A NORMAL MAMMOGRAM DOES NOT EXCLUDE THE POSSIBILITY OF BREAST CANCER. A CLINICALLY SUSPICIOUS PALPABLE LUMP SHOULD BE BIOPSIED. Dictated by: John Abel DO on 11/01/2024 at 15:46 Approved by: John Abel DO on 11/01/2024 at 15:49
--- OUTSIDE RECORDS SUMMARY | 2024-11-01 09:00 | XMS_ITS | Encounter Summary ---
Author Organization [facility] Address [address] [place] [address] Care Team Providers Care Gymnastics Coach Name Role Phone Zofia Ocasio MD Primary Care Provider [phone] Garry Roque Unavailable [phone] Encounter Details Date Type Department Care Team (Late st Contact Info) Description 09/07/2022 Orders Only [facility] [address] [place] [address] Adelina Muse RN Preop examination Social History [...] Description 09/18/2025 11:00 AM EDT [facility] [address] [facility] [place] [address] Hans Colby DO [address] [place] [address] Scheduled Orders Name Type Priority Associated Diagnoses [...] - 11.6 10*3/uL 09/12/2022 2:22 PM EDT [facility] UNCORRECTED WHITE BLOOD COUNT 7.7 3.8 - 11.6 10*3/uL 09/12/2022 2:22 PM EDT [facility] RBC 4.80 3.60 - 5.00 09/12/2022 2:22 PM EDT [facility] HEMOGLOBIN 14.3 11.8 - 15.4 g/dL 09/12/2022 2:22 PM EDT [facility] HEMATOCRIT 41.8 34.0 - 46.4 % 09/12/2022 2:22 PM EDT [facility] MCV 87.2 80 - 100 fL 09/12/2022 2:22 PM EDT [facility] MCH 29.8 24.7 - 34.3 pg 09/12/2022 2:22 PM EDT [facility] MCHC 34.2 32.0 - 35.0 g/dL 09/12/2022 2:22 PM EDT [facility] RED CELL DISTRIBUTION WIDTH, RDW 12.9 11.9 - 15.3 % 09/12/2022 2:22 PM EDT [facility] PLATELET COUNT 225 150 - 450 10*3/uL 09/12/2022 2:22 PM EDT [facility] MEAN PLATELET VOLUME, MPV 7.5 6.3 - 10.7 fL 09/12/2022 2:22 PM EDT [facility] NEUTROPHILS, % 62.2 . % 09/12/2022 2:22 PM EDT [facility] LYMPHOCYTES, % 25.3 . % 09/12/2022 2:22 PM EDT [facility] MONOCYTES 9.1 . % 09/12/2022 2:22 PM EDT [facility] EOSINOPHILS, % 2.7 . % 09/12/2022 2:22 PM EDT [facility] BASOPHILS, % 0.7 . % 09/12/2022 2:22 PM EDT [facility] NRBC 0.4 0 - 0.5 /100{WBC} 09/12/2022 2:22 PM EDT [facility] NEUTROPHILS 4.8 1.8 - 7.7 10*3/uL 09/12/2022 2:22 PM EDT [facility] LYMPHOCYTES 2.0 1.00 - 4.8 10*3/uL 09/12/2022 2:22 PM EDT [facility] Monocytes 0.7 0.0 - 0.8 10*3/uL 09/12/2022 2:22 PM EDT [facility] EOSINOPHILS 0.2 0.0 - 0.45 10*3/uL 09/12/2022 2:22 PM EDT [facility] BASOPHILS 0.1 0.0 - 0.2 10*3/uL 09/12/2022 2:22 PM EDT [facility] Blood Venous blood specimen / Unknown 09/12/2022 12:38 PM EDT 09/12/2022 12:38 PM EDT Taz Rossi DPM LAB BLOOD ORDERABLES Final Result Performing Organization Address [facility] de Phone Number [facility] [address] [place] [address], [facility] [address] [place] [address] documented in this encounter Visit Diagnoses Diagnosis Preop examination Unspecified pre-operative examination documented in this encounter Care Teams Gymnastics Coach Relationship Specialty Start Date End Date Zofia Ocasio MD [address] [place] [address] PCP - General Family Medicine 08/23/22 Garry Roque PA [address] [place] [address] PCP - Medical [place] [employer] 09/01/22 06/10/23 documented as of this encounter
--- OUTSIDE RECORDS SUMMARY | 2024-11-01 09:00 | XMS_ITS | Encounter Summary ---
Author Organization [facility] Address [address] [place] [address] Care Team Providers Care Special Education Curriculum Specialist Name Role Phone Zofia Ocasio MD Primary Care Provider [phone] Garry Roque Unavailable [phone] Encounter Details Date Type Department Care Team (Late st Contact Info) Description 09/12/2022 External Result Encounter [facility] External Department Unsolicited Taz Rossi DPM [address] [facility] [address] [place] [address] Social History Tobacco Use Types Packs/Day Years [...] Description 09/18/2025 11:00 AM EDT Office Visit [facility] [address] [place] [address] Hans Colby DO [address] [place], [place] [phone] documented as of this encounter Procedures Procedure [...] Florentino Woods M.D.09/12/2022 4:53 PM Dictation Location: [place] [address] Transcribed By: [facility] 09/12/221652 Dictated By: Florentino Woods II, MD 09/12/221651 Signed By: <Electronically signed by Florentino Woods II, MD in OV> 09/12/221652 Narrative 09/13/2022 10:46 AM EDT [address] [address] XRay Report Signed Patient: Conchis Cruz MR#: [id number] 3 : 1975 Acct:[id number] Age/Sex: 47 / F ADM Date: 09/12/22 Loc: PA Room: Type: [facility] Attending Dr: Taz Rossi DPM Copies [...] 2V* Procedure Note Radiology, Radiologist, - 09/13/[address] [address] XRay Report Signed Patient: Maycol CruzR#: [id number] 3 : 1975Acct:[id number] Age/Sex: 47 / FADM Date: 09/12/22 Loc: PA Room:Type: [facility] Attending Dr: Taz Rossi DPM Copies [...] Florentino Woods M.D.09/12/2022 4:53 PM Dictation Location: [place] [address] Transcribed By: [facility] 09/12/221652 Dictated By: Florentino Woods II, MD 09/12/221651 Signed By: <Electronically signed by Florentino Woods II, MD inOV> 09/12/22 165 us Taz Rossi DPM IMG XR PROCEDURES Final Res ult documented in this encounter Visit Diagnoses Not on filedocumented in this encounter Care Teams Special Education Curriculum Specialist Relationship Specialty Start Date End Date Zofia Ocasio MD [address] [place] [address] PCP - General Family Medicine 08/23/22 Garry Roque PA [address] [place] [address] PCP - Medical [place] [employer] 09/01/22 06/10/23 documented as of this encounter
--- OUTSIDE RECORDS SUMMARY | 2024-11-01 09:00 | XMS_ITS | Encounter Summary ---
Author Organization [facility] Address [address] [place] [address] Care Team Providers Care Final Assembler Boat Name Role Phone Zofia Ocasio MD Primary Care Provider [phone] Source Comments In the event this information is protected by the Federal Confidentiality of Alcohol and Drug AbusePatient Records regulations: The Federal rules restrict any use of the information to criminally investigate or prosecute any alcohol or drug abuse patient.[facility] Encounter Details Date Type Department Care Team (Late st Contact Info) Description 03/13/2020 Patient Msg Hematology/Oncology [address] [place] [address] Cassie Jose, PSS New Appointment Social History [...] N ot on file 03/10/2020 Data from: https://www.neighborhoodatlas.medicine.[facility].edu/. Last address used for calculation Not on file 03/10/2020 Comments No Sex and Gender Information Value Date Recorded Sex Assigned at Not on file Legal Sex Female 9:33 AM EST Gender Identity Female 01/20/2020 11:33 AM EDT Sexual Orientation Not on file documented as of this encounter Plan of Treatment Upcoming Encounters Date Type Department Care Team (Late st Contact Info) Description 01/20/2025 11:15 AM EDT Visit (SP) Office Hematology/Oncology [address] [place] [address] Evert Bennett MD [address] [place] [address] [D32.9] documented as of this encounter Visit Diagnoses Not on filedocumented in this encounter Care Teams Final Assembler Boat Relationship Specialty Start Date End Date Zofai Ocasio MD [address] [place] [address] PCP - General Family Medicine 01/17/23 documented as of this encounter
--- OUTSIDE RECORDS SUMMARY | 2024-11-01 09:00 | XMS_ITS | Encounter Summary ---
Author Organization [facility] Address [address] [place] [address] Care Team Providers Care Floorhand Name Role Phone Zofia Ocasio MD Primary Care Provider [phone] Source Comments In the event this information is protected by the Federal Confidentiality of Alcohol and Drug AbusePatient Records regulations: The Federal rules restrict any use of the information to criminally investigate or prosecute any alcohol or drug abuse patient.[facility] Encounter Details Date Type Department Care Team (Late st Contact Info) Description 05/12/2023 Patient Msg [facility] [address] [place] [address] Provider, Ccf Appointments Social History Tobacco Use [...] is lower risk 6 10/18/2022 Data from: https://www.neighborhoodatlas.medicine.[facility].edu/. Last address used for calculation [address] [...] 11:15 AM EDT Visit (SP) Office Hematology/Oncology [address] [place] [address] Evert Bennett MD [address] [place] [address] [D32.9] documented as of this encounter Visit Diagnoses Not on filedocumented in this encounter Care Teams Floorhand Relationship Specialty Start Date End Date Zofia Ocasio MD [address] [place] [address] PCP - General Family Medicine 01/17/23 documented as of this encounter
--- OUTSIDE RECORDS SUMMARY | 2024-11-01 09:00 | XMS_ITS | Encounter Summary ---
Author Organization [facility] Address [facility] [place] [address] Care Team Providers Care Superintendent Stations Name Role Phone Zofia Ocasio MD Primary Care Provider [phone] Source Comments In the event this information is protected by the Federal Confidentiality of Alcohol and Drug AbusePatient Records regulations: The Federal rules restrict any use of the information to criminally investigate or prosecute any alcohol or drug abuse patient.[facility] Encounter Details Date Type Department Care Team (Late st Contact Info) Description 06/07/2021 Patient Msg Gastroenterology [address] [address] Nya Paredes MD [address] [place] [address] pathology results Social History Tobacco [...] N ot on file 03/10/2020 Data from: https://www.neighborhoodatlas.medicine.[facility].edu/. Last address used for calculation Not [...] 11:15 AM EDT Visit (SP) Office Hematology/Oncology [address] [place] [address] Evert Bennett MD [address] [place], [place] [address] [D32.9] documented as of this encounter Visit Diagnoses Not on filedocumented in this encounter Care Teams Superintendent Stations Relationship Specialty Start Date End Date Zofia Ocasio MD [address] [place] [address] PCP - General Family Medicine 01/17/23 documented as of this encounter
--- OUTSIDE RECORDS SUMMARY | 2024-11-01 09:00 | XMS_ITS | Encounter Summary ---
Author Organization [facility] Address [address] [place] [address] Care Team Providers Care Process Control Manager Name Role Phone Zofia Ocasio MD Primary Care Provider Source Comments In the event this information is protected by the Federal Confidentiality of Alcohol and Drug AbusePatient Records regulations: The Federal rules restrict any use of the information to criminally investigate or prosecute any alcohol or drug abuse patient.[facility] Encounter Details Date Type Department Care Team (Late st Contact Info) Description 05/12/2021 [place] [address] Provider, Ccf Questionnaire Submission Social History Tobacco [...] N ot on file 03/10/2020 Data from: https://www.neighborhoodatlas.medicine.[facility].edu/. Last address used for calculation Not [...] 11:15 AM EDT Visit (SP) Office Hematology/Oncology [address] [place] [address] Evert Bennett MD [address] [place], [place] [address] [D32.9] documented as of this encounter Visit Diagnoses Not on filedocumented in this encounter Care Teams Process Control Manager Relationship Specialty Start Date End Date Zofia Ocasio MD [address] [place] [address] PCP - General Family Medicine 01/17/23 documented as of this encounter
--- OUTSIDE RECORDS SUMMARY | 2024-11-01 09:01 | XMS_ITS | Encounter Summary ---
Author Organization [facility] Address [address] [place] [address] Care Team Providers Care Carpenter Packing Name Role Phone Zofia Ocasio MD Primary Care Provider [phone] Source Comments In the event this information is protected by the Federal Confidentiality of Alcohol and Drug AbusePatient Records regulations: The Federal rules restrict any use of the information to criminally investigate or prosecute any alcohol or drug abuse patient.[facility] Encounter Details Date Type Department Care Team (Late st Contact Info) Description 05/18/2021 Patient Msg Hematology/Oncology [address] [place] [address] Provider, Ccf Ativan ordered to take prior [...] N ot on file 03/10/2020 Data from: https://www.neighborhoodatlas.medicine.[facility].edu/. Last address used for calculation Not [...] 11:15 AM EDT Visit (SP) Office Hematology/Oncology [address] [place] [address] Evert Bennett MD [address] [place], [place] [address] [D32.9] documented as of this encounter Visit Diagnoses Not on filedocumented in this encounter Care Teams Carpenter Packing Relationship Specialty Start Date End Date Zofia Ocasio MD [address] [place] [address] PCP - General Family Medicine 01/17/23 documented as of this encounter
--- OUTSIDE RECORDS SUMMARY | 2024-11-01 09:01 | XMS_ITS | Encounter Summary ---
Author Organization [facility] Address [address] [place] [address] Care Team Providers Care Special Forces Medical Sergeant Name Role Phone Zofia Ocasio MD Primary Care Provider [phone] Source Comments In the event this information is protected by the Federal Confidentiality of Alcohol and Drug AbusePatient Records regulations: The Federal rules restrict any use of the information to criminally investigate or prosecute any alcohol or drug abuse patient.[facility] Encounter Details Date Type Department Care Team (Late st Contact Info) Description 01/25/2023 Patient Msg Radiation Oncology [address] [place] [address] [place] [address] [place] [address] Questionnaire Submission Social History Tobacco [...] is lower risk 6 10/18/2022 Data from: https://www.neighborhoodatlas.medicine.[facility].edu/. Last address used for calculation [...] 11:15 AM EDT Visit (SP) Office Hematology/Oncology [address] [place] [address] Evert Bennett MD [address] [place], [place] [address] [D32.9] documented as of this encounter Visit Diagnoses Not on filedocumented in this encounter Care Teams Special Forces Medical Sergeant Relationship Specialty Start Date End Date Zofia Ocaiso MD [address] [place] [address] PCP - General Family Medicine 01/17/23 documented as of this encounter
--- OUTSIDE RECORDS SUMMARY | 2024-11-01 09:01 | XMS_ITS | Encounter Summary ---
Author Organization [facility] Address [address] [place] [address] Care Team Providers Care Story Analyst Name Role Phone Zofia Ocasio MD Primary Care Provider [phone] Source Comments In the event this information is protected by the Federal Confidentiality of Alcohol and Drug AbusePatient Records regulations: The Federal rules restrict any use of the information to criminally investigate or prosecute any alcohol or drug abuse patient.[facility] Encounter Details Date Type Department Care Team (Late st Contact Info) Description 09/30/2024 Patient Msg Radiology MRI [address] [place] [address] Provider, Ccf MRI Appointment Social History Tobacco Use Types Packs/Day [...] is lower risk 6 10/18/2022 Data from: https://www.neighborhoodatlas.medicine.[facility].edu/. Last address used for calculation [address] [...] 11:15 AM EDT Visit (SP) Office Hematology/Oncology [address] [place] [address] Evert Bennett MD [address] [place] [address] [D32.9] documented as of this encounter Visit Diagnoses Not on filedocumented in this encounter Care Teams Story Analyst Relationship Specialty Start Date End Date Zofia Ocasio MD [address] [place] [address] PCP - General Family Medicine 01/17/23 documented as of this encounter
--- OUTSIDE RECORDS SUMMARY | 2024-11-01 09:01 | XMS_ITS | Encounter Summary ---
Author Organization [facility] Address [address] [place] [address] Care Team Providers Care Adolescent Medicine Specialist Name Role Phone Zofia Ocasio MD Primary Care Provider [phone] Source Comments In the event this information is protected by the Federal Confidentiality of Alcohol and Drug AbusePatient Records regulations: The Federal rules restrict any use of the information to criminally investigate or prosecute any alcohol or drug abuse patient.[facility] Reason for Visit * Reason Comments Radiology MRI Encounter Details Date Type Department Care Team (Late st Contact Info) Description 06/01/2021 Radiology Radiology MRI [address] [place], [place] [id number] Nat Rutherford RT(R) Radiology MRI Social History [...] N ot on file 03/10/2020 Data from: https://www.neighborhoodatlas.medicine.[facility].edu/. Last address used for calculation [...] 11:15 AM EDT Visit (SP) Office Hematology/Oncology [address] [place] [address] Evert Bennett MD [address] [place], [place] [id number] [D32.9] documented as of this encounter Visit Diagnoses Not on filedocumented in this encounter Care Teams Adolescent Medicine Specialist Relationship Specialty Start Date End Date Zofia Ocasio MD [address] [place] [phone] PCP - General Family Medicine 01/17/23 documented as of this encounter
--- OUTSIDE RECORDS SUMMARY | 2024-11-01 09:01 | XMS_ITS | Encounter Summary ---
Author Organization [facility] Address [address] [place] [address] Care Team Providers Care Ems Helicopter Pilot Name Role Phone Zofia Ocasio MD Primary Care Provider [phone] Garry Roque Unavailable [phone] Reason for Visit * Reason Comments Med Refill Encounter Details Date Type Department Care Team (Late st Contact Info) Description 10/25/2022 Refill [facility] [address] [place] [phone] Taz Rossi DPM [address] [address] Plantar fasciitis Social History Tobacco [...] EDT Office Visit [facility] [address] [place] [phone] Hans Colby DO [address] [facility] [address] [place] [address] documented as of this encounter Visit Diagnoses Diagnosis Plantar fasciitis Plantar fascial fibromatosis documented in this encounter Care Teams Ems Helicopter Pilot Relationship Specialty Start Date End Date Zofia Ocasio MD [address] [place] [phone] PCP - General Family Medicine 08/23/22 Garry Roque PA [address] [place] [address] PCP - Medical [place] Commercial 09/01/22 06/10/23 documented as of this encounter
--- OUTSIDE RECORDS SUMMARY | 2024-11-01 09:01 | XMS_ITS | Clinical Summary ---
Author Organization [facility] Address [id number] [address] [place] [address] Care Team Providers Care Construction Technician Name Role Phone Zofia Ocasio MD Primary Care Provider [phone] Allergies No known active allergies Medications HYDROcodone-jose armando taminophen (NORCO) 5-325 mg per tabletIndicatio ns:Malignant melanoma of upper back ([facility]) Take 1 tablet by mouth every 6 [...] on file Insurance [employer] Care Teams Construction Technician Relationship Specialty Start Date End Date Zofia Ocasio MD [address] [place], [place] [phone] PCP - General Family Medicine 09/27/18
--- OUTSIDE RECORDS SUMMARY | 2024-11-01 09:01 | XMS_ITS | Encounter Summary ---
Author Organization [facility] Address [address] [place] [address] Care Team Providers Care Account Assistant Name Role Phone Zofia Ocasio MD Primary Care Provider [phone] Garry Roque PA Unavailable [phone] Encounter Details Date Type Department Care Team (Late st Contact Info) Description 02/13/2023 Abstract [facility] [address] [place] [address] La Nena Child MA Social History Tobacco [...] Office Visit [facility] [address] [place] [address] Hans Colby DO [address] [place] [address] documented as of this encounter Visit Diagnoses Not on filedocumented in this encounter Care Teams Account Assistant Relationship Specialty Start Date End Date Zofia Ocasio MD [address] [place] [address] PCP - General Family Medicine 08/23/22 Garry Roque PA [address] [place] [phone] PCP - Medical [place] Commercial 09/01/22 06/10/23 documented as of this encounter
--- OUTSIDE RECORDS SUMMARY | 2024-11-01 09:01 | XMS_ITS | Encounter Summary ---
Author Organization [facility] Address [address] [facility] [place] [address] Care Team Providers Care Mexican Food Cook Name Role Phone Zofia Ocasio MD Primary Care Provider [phone] Garry Roque Unavailable [phone] Encounter Details Date Type Department Care Team (Late st Contact Info) Description 11/17/2022 Abstract [facility] [address] [facility] [address] [place] [address] Rl Bunch, PT [address] [facility] [address] [place] [address] Social History Tobacco Use Types Packs/Day Years [...] EDT Office Visit [facility] [address] [facility] [place] [phone] Hans Colby DO [address] [place] [address] documented as of this encounter Visit Diagnoses Not on filedocumented in this encounter Care Teams Mexican Food Cook Relationship Specialty Start Date End Date Zofia Ocasio MD [address] [place] [phone] PCP - General Family Medicine 08/23/22 Garry Roque PA [address] [place] [address] PCP - Medical [place] [employer] 09/01/22 06/10/23 documented as of this encounter
--- OUTSIDE RECORDS SUMMARY | 2024-11-01 09:01 | XMS_ITS | Encounter Summary ---
Author Organization [facility] Address [address] [facility] [place] [address] Care Team Providers Care Job Training Specialist Name Role Phone Zofia Ocasio MD Primary Care Provider [phone] Encounter Details Date Type Department Care Team (Late st Contact Info) Description 09/25/2023 Clinisync Result Encounter [facility] External Department Unsolicited Hans Colby DO [address] [place] [phone] Social History Tobacco Use Types Packs/Day Years [...] 09/18/2025 11:00 AM EDT Office Visit [facility] [address] [place] [phone] Hans Colby DO [address] [place] [address] documented as of this encounter Procedures Procedure Name Priority Date/Time Associated Diagnosis Comments MM TOMOSYNTHESIS SCREENING BI 09/25/2023 8:42 AM EDT documented in this encounter Results * MM TOMOSYNTHESIS SCREENING BI (09/25/2023 8:42 AM EDT) Anatomical Region Laterality Modality Other 09/25/2023 8:42 AM EDT Narrative 09/25/2023 8:43 [place] [address] Mammography Report Signed Patient: CONCHIS CRUZ MR#: [id number] : 1975 Acct:[id number] Age/Sex: 48 / F ADM Date: 09/22/23 Loc: MAMMO Attending Dr: Hans Colby D.O. Ordering Physician: Hans Colby D.O. Results: Date of Service: 09/22/23 Follow Up: Procedure(s): MM tomosynthesis screening BI Accession Number(s): [id number] cc: Zofia Ocasio M.D.; Hans Colby D.O. Patient Name: CONCHIS CRUZ MR#: [id number] : 1975 Exam Date: 09/22/2023 Ordering Doctor: [...] pancreatic cancer at age 71. LOCATION: [facility] BREAST COMPOSITION: There are scattered areas of [...] Signed By: 09/25/23 0843 DD/ 0842 TD/TT: Financial Compliance Officer: Procedure Note Radiology, Radiologist, MD - 09/25/2023 [facility] [place] [id number] Mammography Report Signed Patient: CONCHIS CRUZ LMR#: [id number] : 1975Acct:[id number] Age/Sex: 48 / FADM Date: 09/22/23 Loc: MAMMO Attending Dr: Hans Colby D.O. Ordering Physician: Hans Colby D.O.Results: Date of Service: 09/22/23Follow Up: Procedure(s): MM tomosynthesis screening BI Accession Number(s): [id number] cc: Zofia Ocasio M.D.; Hans Colby D.O. Patient Name: CONCHIS CRUZ MR#: [id number] : 1975 Exam Date: 09/22/2023 Ordering Doctor: [...] with pancreaticcancer at age 71. LOCATION: [facility] BREAST COMPOSITION: There are scattered areas of [...] Faustino Mc M.D. Signed By:09/25/2343 DD/ TD/TT: Financial Compliance Officer: us Hans Lasha DO [facility] Final Result documented in this encounter Visit Diagnoses Not on filedocumented in this encounter Care Teams Job Training Specialist Relationship Specialty Start Date End Date Zofia Ocasio MD [address] [place] [phone] PCP - General Family Medicine 08/23/22 documented as of this encounter
--- OUTSIDE RECORDS SUMMARY | 2024-11-01 09:01 | XMS_ITS | Clinical Summary ---
Author Organization [facility] Address [address] [place], [place] [phone] Care Team Providers Care Senior Financial Accountant Name Role Phone Zofia Ocasio MD Primary Care Provider [phone] Allergies No known active allergies Medications omeprazole (PRILOSEC) 20 mg capsule Take 20 mg by mouth once daily. Active meloxicam (MOBIC) 15 mg tablet 12/02/19 22 Active inclisiran (LEQVIO) 284 mg/1.5 mL injection 12/16/19 22 Active dexAMETHasone (DECADRON) 4 mg tablet Start the day after your Gamma Knife Procedure: Decadron (Dexamethasone), Take 4 mg (1 tablet) daily for 4 days, Take 2 mg (1/2 tablet) daily for 4 days, then stop Decadron 6 tablet 01/29/20 23 Active famotidine (PEPCID) 20 mg tablet Take 1 tablet by mouth once daily. 6 tablet 01/29/20 23 Active REPATHA SURECLICK 140 mg/mL pen injector Inject 140 mg subcutaneously every 2 weeks. 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 Encounters Date Type Department Care Team Description 10/01/2024 1:45 PM EDT Office Visit Neurosurgery [address] [facility] [address] [place] [address] Ce Piña, PRINT SHOP HELPER.SCHOOL LEADER Benign neoplasm of meninges (HCC) (Primary Dx) 10/01/2024 10:26 AM EDT - 10/01/2024 11:59 PM EDT Hospital Encounter Radiology MRI [address] [facility] [place] [address] 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] Discharge Disposition: Home 09/30/2024 Patient Msg Radiology MRI [address] [facility] [facility] [place] [address] Provider, Ccf MRI Appointment 09/24/2024 Orders Only [facility] [address] [place] [address] Ce Piña, PRINT SHOP HELPER.SCHOOL LEADER Claustrophobia (Primary Dx) 09/24/2024 Travel 08/20/2024 Patient Msg [facility] Tumor [address] [address] Provider, Ccf UPCOMING APPOINTMENTS from Last 3 Months Social History Tobacco [...] is lower risk 6 10/18/2022 Data from: https://www.neighborhoodatlas.medicine.[facility].edu/. Last address used for calculation [address] 10/18/2022 Comments No Sex and Gender Information Value Date Recorded Sex Assigned at Not on file Legal Sex Female 9:33 AM EST Gender Identity Female 01/20/2020 11:33 AM EDT Sexual Orientation Not on file Last Filed Vital Signs Vital Sign Reading Time Taken Comments Blood Pressure 148/82 10/01/2024 1:38 PM EDT Pulse 88 10/01/2024 1:38 PM EDT Temperature 36.2 C (97.2 F) 06/17/2024 10:39 AM EDT Respiratory Rate 16 06/17/2024 10:3 9 AM EDT Oxygen Saturation 98% 10/01/2024 1:38 PM EDT Inhaled Oxygen Concentration - - Weight 104.4 kg (230 lb 2.6 oz) 10/01/2024 1:38 PM EDT Height 162.6 cm (5' 4 ) 12/14/2023 10:4 6 AM EDT Body Mass Index 39.51 12/14/2023 10:46 AM EDT Plan of Treatment Upcoming Encounters Date Type Department Care Team (Late st Contact Info) Description 01/20/2025 11:15 AM EDT Visit (SP) Office Hematology/Oncology [address] [place] [address] Evert Bennett MD [address] [place] [address] [D32.9] Health Maintenance Due Date Last Done Comments Anxiety Screening 07/12/1993 Depression Screening 07/12/1993 HIV Screening 07/12/1993 Hepatitis C Screening 07/12/1993 DTaP,Tdap,Td Vaccine (1 - Tdap) 07/12/1994 Hepatitis B Vaccine (1 of 3 - 19+ 3-dose series) 07/12 Cervical Cancer Screening 07/12/[address] Colonography 07/12/2020 Cologuard (FIT-DNA) 07/12/2020 Colonoscopy 07/12/2020 Colorectal Cancer Screening 07/12/2020 Fecal Occult Blood 07/12/2020 Lipid Screening 07/12/2020 Sigmoidoscopy 07/12/2020 Diabetes Screening 01/24/2022 01/24/2019 Influenza Vaccine (#1) 2024 Procedures Procedure Name Priority Date/Time Associated Diagnosis Comments MRI BRAIN WO/W IVCON Routine 10/01/2024 11:36 AM EDT Benign neoplasm of meninges (HCC) COMPREHENSIVE METABOLIC PANEL STAT 01/24/2019 1:42 PM EDT Malignant melanoma of skin (HCC) from Last 3 Months or Most Recently Relevant to Health Maintenance Results * MRI BRAIN WO/W IVCON (10/01/2024 11:36 AM EDT) Anatomical Region Laterality Modality Head Magnetic Resonan ce 10/01/2024 11:3 6 AM EDT Impressions 10/01/2024 12:45 PM EDT IMPRESSION: Grossly stable exam since 09/12/2023 demonstrating subcentimeter presumed meningioma along the left frontal convexity. No significant mass effect or midline shift. Commutator Operator: TORI Transcribe Date/Time: Oct 01 2024 12:30P Dictated by : JULIANN CALVO MD This examination was interpreted and the report reviewed and electronically signed by: JULIANN CALVO MD on Oct 01 2024 12:43PM EST Narrative 10/01/2024 12:45 PM EDT * * *Final Report* * * DATE OF EXAM: Oct 01 2024 11:36AM [facility] 0295 - MRI BRAIN WO/W IVCON / PROCEDURE REASON: Benign neoplasm of meninges (HCC) * * * * Physician Interpretation * * * * EXAMINATION: MRI BRAIN WO/W IVCON HISTORY: Benign neoplasm of meninges (HCC) - - - Primary neoplasm/metastasis/postop F/U - Brain/MEDICAL SOCIAL CONSULTANT neoplasm, monitor - [id number] - - - - TECHNIQUE: MRI brain routine protocol without and with contrast. M: [id number] MR Contrast: Elucirem Contrast Dose: 10 cc Route of Administration: IV COMPARISON: MRI brain 09/12/2023 RESULT: Acute Change: No evidence of an acute intracranial process. Hemorrhage: No evidence of prior parenchymal hemorrhage on the susceptibility weighted sequences. Mass Lesion/ Mass Effect: Left frontal meningioma appearing to measure approximately 9 mm (series 10, image 36) which appears grossly unchanged in size without significant mass effect. No abnormal intracranial enhancement identified elsewhere. Chronic Change: The white matter is within normal limits of signal intensity for age. Parenchyma: No significant parenchymal volume loss for age. Ventricles: Normal caliber and morphology. Skull Base: Hypothalamic and pituitary region are grossly normal. Craniocervical junction is normal. No significant marrow replacement process. Vasculature: Major intracranial arteries and dural venous sinuses demonstrate typical flow voids, suggesting patency by spin echo criteria. Other: The paranasal sinuses and mastoid air cells are clear. The orbits and extracranial soft tissues are unremarkable. Procedure Note Provider, [facility] - 10/01/2024 * * *Final Report* * * DATE OF EXAM: Oct 01 2024 11:36AM [facility] 0295 - MRI BRAIN WO/W IVCON / PROCEDURE REASON: Benign neoplasm of meninges (HCC) * * * * Physician Interpretation * * * * EXAMINATION: MRI BRAIN WO/W IVCON HISTORY: Benign neoplasm of meninges (HCC) - - - Primary neoplasm/metastasis/postop F/U - Brain/MEDICAL SOCIAL CONSULTANT neoplasm, monitor - [id number] - - - - TECHNIQUE: MRI brain routine protocol without and with contrast. M: [id number] MR Contrast: Elucirem Contrast Dose: 10 cc Route of Administration: IV COMPARISON: MRI brain 09/12/2023 RESULT: Acute Change: No evidence of an acute intracranial process. Hemorrhage: No evidence of prior parenchymal hemorrhage on the susceptibility weighted sequences. Mass Lesion/ Mass Effect: Left frontal meningioma appearing to measure approximately 9 mm (series 10, image 36) which appears grossly unchanged in size without significant mass effect. No abnormal intracranial enhancement identified elsewhere. Chronic Change: The white matter is within normal limits of signal intensity for age. Parenchyma: No significant parenchymal volume loss for age. Ventricles: Normal caliber and morphology. Skull Base: Hypothalamic and pituitary region are grossly normal. Craniocervical junction is normal. No significant marrow replacement process. Vasculature: Major intracranial arteries and dural venous sinuses demonstrate typical flow voids, suggesting patency by spin echocriteria. Other: The paranasal sinuses and mastoid air cells are clear. The orbits and extracranial soft tissues are unremarkable. IMPRESSION IMPRESSION: Grossly stable exam since 09/12/2023 demonstrating subcentimeter presumed meningioma along the left frontal convexity. No significant mass effect or midline shift. Commutator Operator: TORI Transcribe Date/Time: Oct 01 2024 12:30P Dictated by : JULIANN CALVO MD This examination was interpreted and the report reviewed and electronically signed by: JULIANN CALVO MD on Oct 01 2024 12:43PM EST us Ce Piña PRINT SHOP HELPER.SCHOOL LEADER MRI-[facility] Final Resul t * COMP METABOLIC PANEL (01/24/2019 1:42 PM EDT) Pathologist [facility] Protein, Total 7.1 6.3 - 8.0 g/dL 01/24/2019 3:11 PM EDT [facility] Albumin 4.6 3.9 - 4.9 g/dL 01/24/2019 3:11 PM EDT [facility] Calcium 9.8 8.5 - 10.2 mg/dL 01/24/2019 3:11 PM EDT [facility] Bilirubin, Total 0.3 0.2 - 1.3 mg/dL 01/24/2019 3:11 PM EDT [facility] Alkaline Phosphatase 60 34 - 123 U/L 01/24/2019 3:11 PM EDT [facility] AST 16 13 - 35 U/L 01/24/2019 3:11 PM EDT [facility] Glucose 94 74 - 99 mg/dL 01/24/2019 3:11 PM EDT [facility] Comment: The [place] Diabetes Association (ADA) provides guidance for cutoff [...] Standards of Medical Care in Diabetes 2016, [place] Diabetes Association. Diabetes Care. 2016.39(Suppl 1). BUN 17 7 - 21 mg/dL 01/24/2019 3:11 PM EDT [facility] Creatinine 0.92 0.58 - 0.96 mg/dL 01/24/2019 3:11 PM EDT [facility] Sodium 141 136 - 144 mmol/L 01/24/2019 3:11 PM EDT [facility] Potassium 4.4 3.7 - 5.1 mmol/L 01/24/2019 3:11 PM EDT [facility] Chloride 102 97 - 105 mmol/L 01/24/2019 3:11 PM EDT [facility] CO2 27 22 - 30 mmol/L 01/24/2019 3:11 PM EDT [facility] Anion Gap 12 9 - 18 mmol/L 01/24/2019 3:11 PM EDT [facility] ALT 16 7 - 38 U/L 01/24/2019 3:11 PM EDT [facility] eGFR- >60 01/24/2019 3:11 PM EDT [facility] eGFR-All Other Races >60 . 01/24/2019 3:11 PM EDT [facility] Comment: eGFR (Estimated GFR) Units of measure: [...] Evert Bennett MD LABORATORY Final Resu lt [facility] [address] [facility] [place] [address] [facility] [address] [place] [address] from Last 3 Months or Most Recently Relevant to Health Maintenance Insurance [facility] PPO Care Teams Senior Financial Accountant Relationship Specialty Start Date End Date Zofia Ocasio MD [address] [place] [address] PCP - General Family Medicine 01/17/23
--- OUTSIDE RECORDS SUMMARY | 2024-11-01 09:01 | XMS_ITS | Encounter Summary ---
Author Organization [facility] Address [address] [place] [address] Care Team Providers Care Hand Cutter Name Role Phone Zofia Ocasio MD Primary Care Provider [phone] Source Comments In the event this information is protected by the Federal Confidentiality of Alcohol and Drug AbusePatient Records regulations: The Federal rules restrict any use of the information to criminally investigate or prosecute any alcohol or drug abuse patient.[facility] Encounter Details Date Type Department Care Team (Late st Contact Info) Description 02/13/2024 Patient Msg Hematology/Oncology [address] [place] [address] Provider, Ccf Appointment Scheduling Social History Tobacco [...] is lower risk 6 10/18/2022 Data from: https://www.neighborhoodatlas.medicine.[facility].edu/. Last address used for calculation [address] [...] 11:15 AM EDT Visit (SP) Office Hematology/Oncology [address] [place] [address] Evert Bennett MD [address] [place] [address] [D32.9] documented as of this encounter Visit Diagnoses Not on filedocumented in this encounter Care Teams Hand Cutter Relationship Specialty Start Date End Date Zofia Ocasio MD [address] [place] [phone] PCP - General Family Medicine 01/17/23 documented as of this encounter
--- OUTSIDE RECORDS SUMMARY | 2024-11-01 09:01 | XMS_ITS | Clinical Summary ---
Author Organization [facility] Address [address] [place] [address] Care Team Providers Care Route Sales Associate Name Role Phone Zofia Ocasio MD Primary Care Provider [phone] Allergies No known active allergies Medications Repatha [...] 09/09/2024 10:00 AM EDT [place] [phone] Hans Colby DO Well woman exam with routine gynecological exam; Breast cancer screening by mammogram 09/09/2024 Clinisync Result Encounter [facility] External Department Unsolicited Hans Colby DO 09/09/2024 Bamboo flowsheet [facility] [address] [place] [phone] Hans Colby DO from Last 3 Months [...] 09/18/2025 11:00 AM EDT Office Visit [facility] [place] [facility] [address] [place] [phone] Hans Colby DO [address] [facility] [place] [address] Health Maintenance Due Date Last Done Comments CT Colonography 1975 FIT-DNA 1975 FIT 1975 FOBT 1975 Sigmoidoscopy 1975 HPV/Cotest 07/12/2005 Mammogram 09/24/2024 09/25/2023 Influenza Vaccine (#1) 2024 Cervical Cancer Screening 09/04/2026 Pap Smear 09/04/2026 09/05/2023, 03/16/1998 Colonoscopy 02/01/2033 02/01/2023 Colorectal Cancer Screening 02/01/2033 Procedures Procedure Name Priority Date/Time Associated Diagnosis Comments IGP,APTIMA HPV,AGE GDLN Routine 09/09/2024 10:03 AM EDT MM TOMOSYNTHESIS SCREENING BI 09/25/2023 8:42 AM EDT PAP SMEAR Routine 09/05/2023 12:00 AM EDT from Last 3 Months or Most Recently Relevant to Health Maintenance Results * IGP,APTIMA HPV,AGE GDLN (09/09/2024 10:03 AM EDT) [facility] LIAMLN ACOG TESTING Note . [facility] Comment: TESTS RESULT FLAG UNITS REF RANGE LAB Clinician Provided Cytology Information Source.............Vagina No. of containers..01 ThinPrep Vial Lolis GIL Katelyn... FLAG LEGEND: L-Low Normal,H-High Normal,LL-Alert Low,HH-Alert High <-Panic Low,>-Panic High,A-Abnormal,AA-Critical Abnormal Performed at: 01 =G [address] [address] Chani Rios MD, IGP, APTIMA HPV, RFX 16/18,45 Note . [facility] Comment: TESTS RESULT FLAG UNITS REF RANGE LAB DIAGNOSIS: 02 NEGATIVE FOR INTRAEPITHELIAL LESION OR MALIGNANCY. Specimen adequacy: 02 Satisfactory for evaluation. No endocervical component is identified. Performed by: 02 Zee Obregon, Cryptozoologist ([facility]) . 02 Note: Note 03 The Pap smear is a screening test designed to aid in the detection of premalignant and malignant conditions of the uterine cervix. It is not a diagnostic procedure and should not be used as the sole means of detecting cervical cancer. Both false-positive and false-negative reports do occur. Test Methodology: Note 03 This liquid based ThinPrep(R) pap test was screened with the use of an image guided system. HPV Genotype Reflex Note 02 Criteria not met, HPV Genotype not performed. FLAG LEGEND: L-Low Normal,H-High Normal,LL-Alert Low,HH-Alert High <-Panic Low,>-Panic High,A-Abnormal,AA-Critical Abnormal Performed at: [address] [place] [address] Dutch Galindo PhD, [address] [address] Chani Rios MD, HPV APTIMA Negative Negative [facility] Comment: This nucleic acid amplification test detects fourteen high- risk HPV types (16,18,31,33,35,39,45,51,52,56,58,59,66,68) without differentiation. Performed at: [address] [id number] Senior Game Advisor: Chani Rios MD, Phone: [phone] Performed at: [address], [place] [id number] Senior Game Advisor: Dutch Galindo PhD, Phone: [phone] 09/09/2024 10:0 3 AM EDT 09/09/2024 12:26 PM EDT Narrative [facility] - 09/13/2024 10:08 AM EDT SPATULA-ALONE VAGINA us Hans Colby DO LAB BLOOD ORDERABLES Final Resul t [facility] * MM TOMOSYNTHESIS SCREENING BI (09/25/2023 8:42 AM EDT) Anatomical Region Laterality Modality Other 09/25/2023 8:42 AM EDT Narrative 09/25/2023 8:43 [place] [address] Mammography Report Signed Patient: BEN CRUZ MR#: [id number] : 1975 Acct:[id number] Age/Sex: 48 / F ADM Date: 09/22/23 Loc: MAMMO Attending Dr: Hans Colby D.O. Ordering Physician: Hans Colby D.O. Results: Date of Service: 09/22/23 Follow Up: Procedure(s): MM tomosynthesis screening BI Accession Number(s): [id number] cc: Zofia Ocasio M.D.; Hans Colby D.O. Patient Name: BEN CRUZ MR#: [id number] : 1975 Exam Date: 09/22/2023 Ordering Doctor: [...] pancreatic cancer at age 71. LOCATION: [facility] BREAST COMPOSITION: There are scattered areas [...] Dictated By: Faustino Mc M.D. Signed By: 09/25/2343 DD/ TD/TT: Piping Supervisor: Procedure Note Radiology, Radiologist, - 09/25/2023 [place] [address] Mammography Report Signed Patient: BEN CRUZ LMR#: [id number] : 1975Acct:[id number] Age/Sex: 48 / FADM Date: 09/22/23 Loc: MAMMO Attending Dr: Hans Colby D.O. Ordering Physician: Hans Colby D.O.Results: Date of Service: 09/22/23Follow Up: Procedure(s): MM tomosynthesis screening BI Accession Number(s): [id number] cc: Zofia Ocasio M.D.; Hans Colby D.O. Patient Name: BEN CRUZ MR#: [id number] : 1975 Exam Date: 09/22/2023 Ordering Doctor: [...] with pancreaticcancer at age 71. LOCATION: [facility] BREAST COMPOSITION: There are scattered areas [...] Faustino Mc M.D. Signed By:09/25/2343 DD/ TD/TT: Piping Supervisor: us Hans Lasha DO [facility] Final Result * Pap Smear (09/05/2023 12:00 AM EDT) Swab Cervical swab / Unknown us Hans Lasha DO LAB CYTOLOGY ORDERABLES Final Re sult EXTERNAL LAB from Last 3 Months or Most Recently Relevant to Health Maintenance Insurance [employer] Care Teams Route Sales Associate Relationship Specialty Start Date End Date Zofia Ocasio MD [address] [place] [address] PCP - General Family Medicine 08/23/22
--- OUTSIDE RECORDS SUMMARY | 2024-11-01 09:01 | XMS_ITS | Encounter Summary ---
Author Organization [facility] Address [address] [facility] [place] [address] Care Team Providers Care Hotel Receptionist Name Role Phone Zofia Ocasio MD Primary Care Provider [phone] Garry Roque Unavailable [phone] Encounter Details Date Type Department Care Team (Late Contact Info) Description 03/03/2023 Abstract [facility] [address] [facility] [address] [place] [address] Derian Macdonald, PT Social History Tobacco Use [...] 09/18/2025 11:00 AM EDT Office Visit [facility] OBRHIANNA [address] [place] [address] Hans Colby DO [address] [place] [address] documented as of this encounter Visit Diagnoses Not on filedocumented in this encounter Care Teams Hotel Receptionist Relationship Specialty Start Date End Date Zofia Ocasio MD [address] [place] [address] PCP - General Family Medicine 08/23/22 Garry Roque PA [address] [place] [address] PCP - Medical [place] [employer] 09/01/22 06/10/23 documented as of this encounter
--- OUTSIDE RECORDS SUMMARY | 2024-11-01 09:01 | XMS_ITS | Encounter Summary ---
Author Organization [facility] [employer] Address [id number] [address] [place] [address] Care Team Providers Care Software Sales Executive Name Role Phone Zofia Ocasio MD Primary Care Provider [phone] Encounter Details Date Type Department Care Team (Late st Contact Info) Description 05/16/2019 Documentation [facility] [address] [facility] [address] [place] [address] Amanda Farley, PACKING ROOM WORKER-ACCESS ANALYST [address] [facility] [place], [place] [phone] Social History Tobacco Use Types Packs/Day Years [...] on filedocumented in this encounter Care Teams Software Sales Executive Relationship Specialty Start Date End Date Zofia Ocasio MD [address] [place] [address] PCP - General Family Medicine 09/27/18 documented as of this encounter
--- OUTSIDE RECORDS SUMMARY | 2024-11-01 09:01 | XMS_ITS | Encounter Summary ---
Author Organization [facility] Address [address] [place] [address] Care Team Providers Care Postal Worker Name Role Phone Zofia Ocasio MD Primary Care Provider Source Comments In the event this information is protected by the Federal Confidentiality of Alcohol and Drug AbusePatient Records regulations: The Federal rules restrict any use of the information to criminally investigate or prosecute any alcohol or drug abuse patient.[facility] Encounter Details Date Type Department Care Team (Late st Contact Info) Description 11/10/2022 Patient Msg [facility] [address] [place] [address] Provider, Ccf Schedule gamma knife Social History [...] is lower risk 6 10/18/2022 Data from: https://www.neighborhoodatlas.medicine.[facility].edu/. Last address used for calculation [...] 11:15 AM EDT Visit (SP) Office Hematology/Oncology [address] [place] [address] Evert Bennett MD [address] [place] [address] [D32.9] documented as of this encounter Visit Diagnoses Not on filedocumented in this encounter Care Teams Postal Worker Relationship Specialty Start Date End Date Zofia Ocasio MD [address] [place] [address] PCP - General Family Medicine 01/17/23 documented as of this encounter
--- OUTSIDE RECORDS SUMMARY | 2024-11-01 09:01 | XMS_ITS | Encounter Summary ---
Author Organization [facility] Address [address] [place] [address] Care Team Providers Care Beach Lifeguard Name Role Phone Zofia Ocasio MD Primary Care Provider [phone] Garry Roque Unavailable [phone] Encounter Details Date Type Department Care Team (Late st Contact Info) Description 01/19/2023 Abstract [facility] [address] [facility] [address] [place] [address] Taz Rossi, DPBrendan [address] [facility] [address] [place] [address] Social History Tobacco Use Types [...] EDT Office Visit [facility] [address] [facility] [place] [address] Hans Colby DO [address] [facility] [address] [place], [place] [address] documented as of this encounter Visit Diagnoses Not on filedocumented in this encounter Care Teams Beach Lifeguard Relationship Specialty Start Date End Date Zofia Ocasio MD [address] [place] [phone] PCP - General Family Medicine 08/23/22 Garry Roque PA [address] [place] [address] PCP - Medical [place] [employer] 09/01/22 06/10/23 documented as of this encounter
--- OUTSIDE RECORDS SUMMARY | 2024-11-01 09:01 | XMS_ITS | Encounter Summary ---
Author Organization [facility] Address [address] [place] [address] Care Team Providers Care Manager Reliability Name Role Phone Zofia Ocasio MD Primary Care Provider [phone] Source Comments In the event this information is protected by the Federal Confidentiality of Alcohol and Drug AbusePatient Records regulations: The Federal rules restrict any use of the information to criminally investigate or prosecute any alcohol or drug abuse patient.[facility] Reason for Referral * MRI/CT (Routine) - Closed Specialty Diagnoses / Procedures Referred By Contac t Referred To Contact MR IMAGING Diagnoses Benign neoplasm of meninges (HCC) Procedures MRI BRAIN WO/W IVCON MRI BRAIN BRAIN STEM W/O W/CONTRAST MATERIAL Wilfrid Beckwith DO, PhD [address] [place] [address] Phone: tel: fax: MR IMAGING [facility] Referral ID Status Reason Start Date Expiration Date V isits Requested Visits Authorized [id number] Closed Auto-Generate d Referral 11/25/2022 12/25/2023 1 1 * MRI/CT (Routine) - Closed Specialty Diagnoses / Procedures Referred By Selene lloyd Referred To Contact MR IMAGING Diagnoses Benign neoplasm of meninges (HCC) Procedures MRI BRAIN LOCALIZATION W IVCON UNLISTED MAGNETIC RESONANCE PROCED Wilfrid Beckwith DO, PhD [address] [place] [address] Phone: tel: fax: MR IMAGING [place] [address] Referral ID Status Reason Start Date Expiration Date V isits Requested Visits Authorized [id number] Closed Auto-Generate d Referral 12/06/2022 1 1 Encounter Details Date Type Department Care Team (Late st Contact Info) Description 11/25/2022 Cure Form [facility] [address] [place] [phone] [place] [address] [place] [phone] Benign neoplasm of meninges (HCC) (Primary Dx) [...] is lower risk 6 10/18/2022 Data from: https://www.neighborhoodatlas.medicine.[facility].edu/. Last address used for calculation [address] [...] 11:15 AM EDT Visit (SP) Office Hematology/Oncology [address] [place] [address] Evert Bennett MD [address] [place] [address] [Z20.1] documented as of this encounter Results * MRI BRAIN WO/W IVCON (09/12/2023 11:35 AM EDT) Anatomical Region Laterality Modality Head Magnetic Resonan ce 09/12/2023 11:3 5 AM EDT Impressions 09/12/2023 12:00 PM EDT IMPRESSION: Unchanged size of presumed 9 mm meningioma along the left frontal convexity without substantial mass effect. Sweat Band Sewer: TORI Transcribe Date/Time: Sep 12 2023 11:55A Dictated by : IAN DUNNE MD This examination was interpreted and the report reviewed and electronically signed by: IAN UDNNE MD on Sep 12 2023 11:58AM EST Narrative 09/12/2023 12:00 PM EDT * * *Final Report* * * DATE OF EXAM: Sep 12 2023 11:35AM [facility] 0295 - MRI BRAIN WO/W IVCON [...] soft tissues are unremarkable. Procedure Note Provider, [facility] [place] - 09/12/2023 * * *Final Report* * * DATE OF EXAM: Sep 12 2023 11:35AM [facility] 0295 - MRI BRAIN WO/W IVCON [...] left frontal convexity without substantial mass effect. Sweat Band Sewer: PSCB Transcribe Date/Time: Sep 12 2023 11:55A [...] FRONTAL LOBE, UNCHANGED GOING BACK TO 06/01/2021 Sweat Band Sewer: TORI Transcribe Date/Time: Jan 27 2023 8:08A [...] no subjacent parenchymal reaction. Procedure Note Provider, [facility] [place] - 01/27/2023 * * *Final Report* * [...] FRONTAL LOBE, UNCHANGED GOING BACK TO 06/01/2021 Sweat Band Sewer: TORI Transcribe Date/Time: Jan 27 2023 8:08A [...] meninges documented in this encounter Care Teams Manager Reliability Relationship Specialty Start Date End Date Zofia Ocasio MD [address] [place] [address] PCP - General Family Medicine 01/17/23 documented as of this encounter
--- OUTSIDE RECORDS SUMMARY | 2024-11-01 09:01 | XMS_ITS | Encounter Summary ---
Author Organization [facility] Address [address] [place] [address] Care Team Providers Care Agriculture Inspector Name Role Phone Zofia Ocasio MD Primary Care Provider [phone] Source Comments In the event this information is protected by the Federal Confidentiality of Alcohol and Drug AbusePatient Records regulations: The Federal rules restrict any use of the information to criminally investigate or prosecute any alcohol or drug abuse patient.[facility] Encounter Details Date Type Department Care Team (Latest Contact Info) Description 01/20/2023 Patient Msg Radiology [address] [place] [address] Provider, Ccf SAFETY SCREENING FORM [...] risk 6 10/18/2022 Data from: https://www.neighborhoodatlas.medicine.[facility].edu/. Last address used for calculation [address] [...] 11:15 AM EDT Visit (SP) Office Hematology/Oncology [address] [place] [address] Evert Bennett MD [address] [place] [address] [D32.9] documented as of this encounter Visit Diagnoses Not on filedocumented in this encounter Care Teams Agriculture Inspector Relationship Specialty Start Date End Date Zofia Ocasio MD [address] [place] [address] PCP - General Family Medicine 01/17/23 documented as of this encounter
--- OUTSIDE RECORDS SUMMARY | 2024-11-01 09:01 | XMS_ITS | Patient Health Record ---
Author Organization [facility] [place] Address [address] [place] [address] Care Team Providers Care Paste Up Artist Apprentice Name Role Phone Zofia Ocasio Primary Care Provider Aleksander Yi [phone] Allergies No Known Allergies Results Component Value Reference Range Notes XR foot LT min 3V (Not yet r eviewed by provider) Interpretation: Performing Lab: Notes/Report: Source Facility: [place] [address] XRay Report Signed Patient: CONCHIS CRUZ MR#: [id number] : 1975 Acct:[id number] Age/Sex: 48 / F ADM Date: 04/30/24 Loc: [facility] Attending Dr: Aleksander Morillo D.P.M. Ordering Physician: Aleksander Morillo D.P.M. Date of Service: 04/30/24 Procedure(s): XR foot LT min 3V Accession Number(s): [id number] cc: Zofia Ocasio M.D.; Aleksander Morillo D.P.M. [place] [address] Patient Name: CONCHIS CRUZ MRN: [id number] date: 1975 Sex: F Assigned Patient Location: RAD Current Patient Location: RAD Accession/Order Number: [id number] Exam Date: 04/30/2024 09:40 Report Date: 04/30/2024 [...] Signed By: 04/30/24 1035 DD/ 1033 TD/TT: Count Team Clerk: [place] [address] XRay Report Signed Patient: KELLI CRUZ MR#: [id number] : 1975 Acct:[id number] Age/Sex: 48 / F ADM Date: 04/30/24 Loc: RAD Attending Dr: Aleksander Morillo D.P.M. Ordering Physician: Aleksander Morillo D.P.M. Date of Service: 04/30/24 Procedure(s): XR foot LT min 3V Accession Number(s): [id number] cc: Zofia Ocasio; Aleksander Morillo D.P.M. [place] [address] Patient Name: CONCHIS CRUZ MRN: [id number] date: 1975 Sex: F Assigned Patient Location: RAD Current Patient Location: RAD Accession/Order Numb er: [id number] Exam Date: 04/30/2024 09:40 Report Date: 04/30/2024 [...] Signed By: 04/30/24 1035 DD/ 1033 TD/TT: Count Team Clerk: XR ankle LT min 3V (Not yet reviewed by provider) Interpretation: Performing Lab: Notes/Report: Source Facility: [place] [address] XRay Report Signed Patient: CONCHIS CRUZ MR#: [id number] : 1975 Acct:[id number] Age/Sex: 48 / F ADM Date: 04/30/24 Loc: RAD Attending Dr: Aleksander Morillo D.P.M. Ordering Physician: Aleksander Morillo D.P.M. Date of Service: 04/30/24 Procedure(s): XR ankle LT min 3V Accession Number(s): [id number] cc: Zofia Ocasio M.D.; Aleksander oMrillo D.P.M. [place] [address] Patient Name: CONCHIS CRUZ MRN: [id number] date: 1975 Sex: F Assigned Patient Location: [facility] Current Patient Location: [facility] Accession/Order Number: [id number] Exam Date: 04/30/2024 09:40 Report Date: 04/30/2024 [...] Signed By: 04/30/24 1035 DD/ 1033 TD/TT: Count Team Clerk: [place] [address] XRay Report Signed Patient: KELLI CRUZ MR#: [id number] : 1975 Acct:[id number] Age/Sex: 48 / F ADM Date: 04/30/24 Loc: RAD Attending Dr: Aleksander Morillo D.P.M. Ordering Physician: Aleksander Morillo D.P.M. Date of Service: 04/30/24 Procedure(s): XR ankle LT min 3V Accession Number(s): [id number] cc: Zofia Ocasio; Aleksander Morillo D.P.M. [place] [address] Patient Name: CONCHIS CRUZ MRN: [id number] date: 1975 Sex: F Assigned Patient Location: [facility] Current Patient Location: [facility] Accession/Order Numb er: [id number] Exam Date: 04/30/2024 09:40 Report Date: 04/30/2024 [...] Signed By: 04/30/24 1035 DD/ 1033 TD/TT: Count Team Clerk: Reason For Referral No Information Medications Medication [...] Problem Status W/U Status Risk Notes Problem 223613157682189 Unspecified mononeuropathy of left lower limb (G57.92) Active confirmed Problem 141027013 Valgus deformity , not elsewhere classified, left ankle (M21.072) Active confirmed Problem 963763428 Varus deformity, not elsewhere classified, 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) Active confirmed Problem 054891358 Other acquired deformities of left foot (M21.6X2) Active confirmed Problem 55026380 Other acquired deformities of unspecified foot (M21.6X9) Active confirmed Problem 12518905 Other specified acquired deformities of left lower leg (M21.862) Active confirmed Problem 7524853371238064 Other instability, left ankle (M25.372) Active confirmed Problem 40675819787596408 Plantar fascia l 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) Active confirmed Problem 584922713571426 Peroneal tendinitis, left leg (M76.72) Active confirmed Problem Arthralgia of the ankle and/or foot (428603968) Ankle pain, left (M25.572) Active confirmed Problem Pain in limb (44665830) Foot pain, left (M79.672) Active confirmed Problem Arthralgia of the ankle and/or foot (763512900) Left ankle pain (M25.572) Active confirmed Problem 3742857858829728 Bunionette of left foot (M21.622) Active confirmed Problem Acquired hammer toe of left foot (5673789232364572) 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) Active confirmed Vital Signs Heart Rate 90 /min 04/30/2024 Temperature 96.8 degrees Fahrenheit 04/30/2024 Respiratory Rate 16 /min 11/08/2023 Oximetry 99 % 04/30/2024 Height 65 in 04/30/2024 Weight 205 lbs 11/08/2023 BMI 34.11 kg/m2 11/08/2023 Encounters Encounter Location Date Provider Diagnosis [facility] ([facility]) [address] [place] [address] [place] [address] 04/30/2024 Peter Highlander Varus deformity, not elsewhere classified, left ankle M21.172 ; Peroneal tendinitis, left leg M76.72 ; Other instability, left ankle M25.372 ; Foot pain, left M79.672 and Left ankle pain M25.572 [facility] ([facility]) [address] [place] [address] [place] [address] 11/08/2023 Aleksander Morillo Pain due to other internal prosthetic [...] Coverage Start Date Coverage End Date [address] [place], [place] [id number] Conchis Cruz Self - patient is the insured Medical (General) History Medical History History ICD Code Melanoma C43.9 hypercholesterol Surgical History Surgery Date(Month/Year) laminectomy section x2 hysterectomy right wrist lump removed melanoma removal left lateral displacement ca lcaneal osteotomy, lateral ankle stabilization with modified Brostrom-Peterson, peroneal tendon repair, EPF, tailor's bunionectomy, correction of 5th hammertoe with PIPJ arthroplasty, stress exam under fluoro 03.30.2023 Removal of deep implanted link rdware left calcaneus, excision of hypertrophic scar and delayed closure of wound left lateral ankle 10/02/2023 Hospitalization History Reason Date(Month/Year) see above
--- OUTSIDE RECORDS SUMMARY | 2024-11-01 09:01 | XMS_ITS | Encounter Summary ---
Author Organization [facility] Address [address] [place] [address] Care Team Providers Care Alignment Specialist Name Role Phone Zofia Ocasio MD Primary Care Provider [phone] Garry Roque Unavailable [phone] Encounter Details Date Type Department Care Team (Late st Contact Info) Description 06/07/2023 Clinisync Result Encounter [facility] External Department Unsolicited Veto Colby DO [address] [place], [facility] Social History Tobacco Use Types Packs/Day Years [...] 09/18/2025 11:00 AM EDT Office Visit [facility] [address] [place] [id number] Veto Colby DO [address] [place] [address] documented as of this encounter Procedures Procedure Name Priority Date/Time Associated Diagnosis Comments US PELVIS W/ TRANSVAGINAL 06/07/2023 8:55 AM EST documented in this encounter Results * US PELVIS W/ TRANSVAGINAL (06/07/2023 8:55 AM EST) Anatomical Region Laterality Modality Other 06/07/2023 8:55 AM EST Narrative 06/07/2023 8:57 AM EST [place] [id number] Ultrasound Report Signed Patient: CONCHIS CRUZ MR#: [id number] : 1975 Acct:[id number] Age/Sex: 47 / F ADM Date: 06/07/23 Loc: [facility] Attending Dr: Veto Colby D.O. Ordering Physician: Veto Colby D.O. Date of Service: 06/07/23 Procedure(s): US pelvis w/ transvaginal Accession Number(s): [id number] cc: Zofia Ocasio M.D.; Veto Colby D.O. [address] [address] Patient Name: CONCHIS CRUZ MRN: [id number] date: 1975 Sex: F Assigned Patient [facility]: [facility] Current Patient Location: [facility] Accession/Order Number: [id number] Exam Date: 06/07/2023 08:01 Report Date: 06/07/2023 [...] M.D. Signed By: 06/07/2357 DD/ 4 TD/TT: Lining Vamper: Procedure Note Radiology, Radiologist, - 06/07/2023 [place] [address] Ultrasound Report Signed Patient: CONCHIS CRUZ LMR#: [id number] : 1975Acct:[id number] Age/Sex: 47 / FADM Date: 06/07/23 Loc: [facility] Attending Dr: Veto Colby D.O. Ordering Physician: Veto Colby D.O. Date of Service: 06/07/23 Procedure(s): US pelvis w/ transvaginal Accession Number(s): [id number] cc: Zofia Ocasio M.D.; Veto Colby D.O. [place] [address] Patient Name: CONCHIS CRUZ MRN: [id number] date: 1975 Sex: F Assigned Patient Location: [facility] Current Patient Location: [facility] Accession/Order Number: [id number] Exam Date: 06/07/2023 08:01 Report Date: 06/07/2023 [...] M.D. Signed By:06/07/23 0857 DD/ 4 TD/TT: Lining Vamper: us Veto Lasha DO [facility] Final Result documented in this encounter Visit Diagnoses Not on filedocumented in this encounter Care Teams Alignment Specialist Relationship Specialty Start Date End Date Zofia Ocasio MD [address] [place] [phone] PCP - General Family Medicine 08/23/22 Garry Roque PA [address] [place] [address] PCP - Medical [place] [employer] 09/01/22 06/10/23 documented as of this encounter
--- OUTSIDE RECORDS SUMMARY | 2024-11-01 09:01 | XMS_ITS | Encounter Summary ---
Author Organization [facility] Address [address] [place] [address] Care Team Providers Care Meter Setter Name Role Phone Zofia Ocasio MD Primary Care Provider [phone] Source Comments In the event this information is protected by the Federal Confidentiality of Alcohol and Drug AbusePatient Records regulations: The Federal rules restrict any use of the information to criminally investigate or prosecute any alcohol or drug abuse patient.[facility] Encounter Details Date Type Department Care Team (Late st Contact Info) Description 08/20/2024 Patient Msg [facility] [address] [place] [id number] Provider, [facility] Social History Tobacco [...] is lower risk 6 10/18/2022 Data from: https://www.neighborhoodatlas.medicine.[facility].edu/. Last address used for calculation [...] 11:15 AM EDT Visit (SP) Office Hematology/Oncology [address] [place] [address] Evert Bennett MD [address] [place] [address] [D32.9] documented as of this encounter Visit Diagnoses Not on filedocumented in this encounter Care Teams Meter Setter Relationship Specialty Start Date End Date Zofia Ocasio MD [address] [place] [phone] PCP - General Family Medicine 01/17/23 documented as of this encounter
== END 2024-11-01 08:59 | disposition home or self-care (01) ==
LOC: MAMMO 08:58
PROVIDERS: Visit Provider Obstetrics & Gynecology
DX: Z12.31 Encounter for screening mammogram for malignant neoplasm of breast (principal); Z80.3 Family history of malignant neoplasm of breast; Z80.8 Family history of malignant neoplasm of other organs or systems
CPT/HCPCS: 77063; 77067